=== PATIENT | female | born 2000 | race Caucasian/White ===

== ENCOUNTER 2024-01-14 00:53 | Emergency (ER) | payer OTHER, SELFPAY ==
[2024-01-14 00:58] VITALS: BP 150/98; PULSE 120; RESP 18; TEMP 36.6; O2SAT 97
--- NOTE | 2024-01-14 01:11 | ED_ITS ---
HPI - Abdominal Pain General Chief Complaint: Abdominal Pain Stated Complaint: ABD PAIN Time Seen by Provider: 01/14/24 00:56 Source: patient Mode of arrival: walk-in Limitations: no limitations History of Present Illness HPI narrative: 23-year-old female presents to the emergency department for low abdominal pain. She was nauseous but did not vomit. She had minimal diarrhea. She is worried about her appendix. No fever or trauma or blood in her stool. Related Data Previous Rx's ?Medication ?Instructions ?Recorded dicyclomine 10 mg capsule 10 mg PO QID PRN abdominal pain 01/14/24 #20 caps Allergies Allergy/AdvReac Type Severity Reaction Status Date / Time penicllin Allergy Mild Rash Uncoded 01/14/24 01:03 Review of Systems ROS Narrative A ten point review of systems is negative except as noted above. Exam Narrative Exam Narrative: Nurses note and vital signs reviewed and patient is not hypoxic. General: The patient appears in no apparent distress. Skin: Warm, dry, no pallor noted. There is no rash noted. Head: Normocephalic, atraumatic Eye: Normal conjunctiva, no drainage Ears, Nose, Mouth, and Throat: oral mucosa is moist. Nares patent. Cardiovascular: Regular Rate and Rhythm Respiratory: Patient is in no distress, no accessory muscle use, lungs are clear to auscultation, no wheezing, rales or rhonchi Back: non-tender GI: Obese soft and mild diffuse tenderness Musculoskeletal: The patient has no evidence of calf tenderness, no pitting edema, symmetrical pulses noted bilaterally Neurological: A&O, normal speech Psychiatric: Cooperative Constitutional Vital Signs, click to edit/add: Last Vital Signs Temp 97.9 F 01/14/24 00:58 Pulse 120 H 01/14/24 00:58 Resp 18 01/14/24 00:58 BP 150/98 H 01/14/24 00:58 Pulse Ox 97 01/14/24 00:58 Course Vital Signs Vital signs: Vital Signs Temperature 97.9 F 01/14/24 00:58 Pulse Rate 120 H 01/14/24 00:58 Respiratory Rate 18 01/14/24 00:58 Blood Pressure 150/98 H 01/14/24 00:58 Pulse Oximetry 97 01/14/24 00:58 Temperature 97.9 F 01/14/24 00:58 Pulse Rate 120 H 01/14/24 00:58 Respiratory Rate 18 01/14/24 00:58 Blood Pressure 150/98 H 01/14/24 00:58 Pulse Oximetry 97 01/14/24 00:58 MDM - Abdominal Pain MDM Narrative Medical decision making narrative: Blood work is nonspecific. She is not . CT findings are discussed with the patient and she is discharged home and will be treated symptomatically. She was offered IM Bentyl but does not want a shot. Treatment diagnosis and follow- up were discussed with the patient. Differential Diagnosis Differential diagnosis: Likely abdominal pain, acute appendicitis, diverticulitis, gastroenteritis, pancreatitis and small bowel obstruction Lab Data Attestation: I reviewed the patient's lab results. Labs: Lab Results 01/14/24 Range/Units 01:10 WBC 11.6 H (4.0-11.0) 10^3/uL RBC 4.71 (4.20-5.40) 10^6/uL Hgb 13.1 (12.0-16.0) g/dL Hct 40.0 (36.0-48.0) % MCV 84.9 (81.0-99.0) fL MCH 27.8 (26.7-34.0) pg MCHC 32.8 (29.9-35.2) g/dL RDW 13.2 (11.0-15.0) % Plt Count 296 (150-450) 10^3/uL MPV 10.0 (9.5-13.5) fL Neut % (Auto) 87.1 H (43.0-75.0) % Lymph % (Auto) 6.6 L (20.5-60.0) % Sullivan % (Auto) 4.8 (1.7-12.0) % Eos % (Auto) 0.9 (0.9-7.0) % Baso % (Auto) 0.3 (0.2-2.0) % Neut # (Auto) 10.1 H (1.4-6.5) 10^3/uL Lymph # (Auto) 0.8 L (1.2-3.8) 10^3/uL Sullivan # (Auto) 0.6 (0.3-0.8) 10^3/uL Eos # (Auto) 0.1 (0.0-0.7) 10^3/uL Baso # (Auto) 0.0 (0.0-0.1) 10^3/uL Abs Immat Gran (auto) 0.04 H (0.00-0.03) 10^3/uL Imm/Tot Granulo (auto) 0.3 (0.0-0.5) % Sodium 135 L (136-145) mmol/L Potassium 3.9 (3.5-5.1) mmol/L Chloride 103 (98-107) mmol/L Carbon Dioxide 21.1 (21.0-32.0) mmol/L Anion Gap 14.8 BUN 11.0 (7.0-18.0) mg/dL Creatinine 0.73 (0.55-1.02) mg/dL Est GFR ( Amer) >60 (>=60) Est GFR (Non-Af Amer) >60 (>=60) BUN/Creatinine Ratio 15.1 Glucose 102 (74-106) mg/dL Calcium 8.7 (8.5-10.1) mg/dL Total Bilirubin 0.6 (0.2-1.0) mg/dL Direct Bilirubin 0.1 (0.0-0.2) mg/dL AST 17 (15-37) U/L ALT 23 (14-59) U/L Alkaline Phosphatase 99 (46-116) U/L Total Protein 7.6 (6.4-8.2) g/dL Albumin 3.4 (3.4-5.0) g/dL Globulin 4.2 g/dL Albumin/Globulin Ratio 0.8 Amylase 38 (25-115) U/L Lipase 26.0 (16.0-77.0) U/L Serum HCG, Qual Negative (NEGATIVE) Imaging Data CT scan - abdomen: Radiologist's impression: ITS Impressions Abdomen/Pelvis CT 01/14/24 01:12 IMPRESSION: 1. Liquid stool in the colon, in keeping with diarrhea. 2. Normal appendix. Electronically authenticated by: Areli RAMSEY Date: 01/14/2024 02:58 Discharge Plan Discharge Stand Alone Forms: Portal Instructions Chief Complaint: Abdominal Pain Clinical Impression: Abdominal pain Patient Disposition: Home, Self-Care Time of Disposition Decision: 03:05 Condition: Good Mode of Transportation: Private Vehicle Prescriptions / Home Meds: New dicyclomine 10 mg capsule 10 mg PO QID PRN (Reason: abdominal pain) Qty: 20 0RF Print Language: Trinidadian Instructions: Gastroenteritis (ED), Abdominal Pain (ED) Referrals: Manuel Schwartz MD [Primary Care Provider] - 1 week
--- NOTE | 2024-01-14 01:12 | CT_ITS ---
[facility] [id number] Patient Name: MANISH ROMERO MRN: [id number] date: 2000 Sex: F Assigned Patient Location: ER Current Patient Location: ER Accession/Order Number: [id number] Exam Date: 01/14/2024 01:48 Report Date: 01/14/2024 02:58 At the request of: SKYE YANEZ Procedure: CT abdomen pelvis w con EXAM: CT abdomen pelvis w con HISTORY: low abdominal pain, rule out appendicitis COMPARISON: CT abdomen and pelvis examination dated 11/16 2017. TECHNIQUE: Axial CT images through the abdomen and pelvis were obtained after the intravenous administration of contrast. Coronal and sagittal reformats were obtained. Dose reduction techniques were achieved by using automated exposure control and/or adjustment of mA and/or kV according to patient size and/or use of iterative reconstruction technique. FINDINGS: The visualized portions of the lung bases are clear. Abdomen: The liver and spleen enhance homogeneously without focal lesion. There is no intra or extrahepatic biliary duct dilatation. The gallbladder is surgically absent. Liquid stool is seen in the colon without evidence of bowel obstruction. Otherwise, the pancreas, adrenal glands, kidneys, and bowel loops, including the appendix, are unremarkable. There is no mesenteric or retroperitoneal lymphadenopathy. Pelvis: The bladder and rectum are unremarkable. There is no iliac or inguinal lymphadenopathy. The uterus is present. The ovaries appear within normal limits by CT. Bone windows show no aggressive osseous lesions. CT/CT abdomen pelvis w con IMPRESSION: 1. Liquid stool in the colon, in keeping with diarrhea. 2. Normal appendix. Electronically authenticated by: Areli RAMSEY Date: 01/14/2024 02:58
[2024-01-14 01:18] LABS: Basophils Percent Auto 0.3 % (0.2-2.0); Eosinophils Absolute Auto 0.1 10^3/uL (0.0-0.7); Eosinophils Percent Auto 0.9 % (0.9-7.0); Hemoglobin 13.1 g/dL (12.0-16.0); Immature Granulocytes Abs Auto 0.04 10^3/uL (0.00-0.03); Immature Granulocytes Pct Auto 0.3 % (0.0-0.5); Lymphocytes Absolute Auto 0.8 10^3/uL (1.2-3.8); Lymphocytes Percent Auto 6.6 % (20.5-60.0); Mean Corpuscular HGB Conc 32.8 g/dL (29.9-35.2); Mean Corpuscular Hemoglobin 27.8 pg (26.7-34.0); Mean Corpuscular Volume 84.9 fL (81.0-99.0); Monocytes Absolute Auto 0.6 10^3/uL (0.3-0.8); Monocytes Percent Auto 4.8 % (1.7-12.0); Neutrophils Absolute Auto 10.1 10^3/uL (1.4-6.5); Neutrophils Percent Auto 87.1 % (43.0-75.0); Platelet Count 296 10^3/uL (150-450); Red Blood Count 4.71 10^6/uL (4.20-5.40); Red Cell Distribution Width 13.2 % (11.0-15.0); White Blood Count 11.6 10^3/uL (4.0-11.0)
[2024-01-14] MEDS: ONDANSETRON PF 4 MG/2 ML VIAL IV (01:24)
[2024-01-14] MEDS: 0.9 % SODIUM CHLORIDE 1,000 ML 1000 ML IV (01:24)
[2024-01-14 01:32] LABS: Anion Gap 14.8; BUN Creatinine Ratio 15.1; Calcium 8.7 mg/dL (8.5-10.1); Carbon Dioxide 21.1 mmol/L (21.0-32.0); Chloride 103 mmol/L (98-107); Estimated GFR (African America >60 (>=60); Estimated GFR (Non-African Ame >60 (>=60); Glucose 102 mg/dL (74-106); HCG Qualitative NEGATIVE (NEGATIVE); Potassium 3.9 mmol/L (3.5-5.1); Sodium 135 mmol/L (136-145)
[2024-01-14 01:40] LABS: Alanine Aminotransferase 23 U/L (14-59); Albumin Globulin Ratio 0.8; Albumin Level 3.4 g/dL (3.4-5.0); Alkaline Phosphatase 99 U/L (46-116); Amylase 38 U/L (25-115); Aspartate Amino Transferase 17 U/L (15-37); Bilirubin Direct 0.1 mg/dL (0.0-0.2); Bilirubin Total 0.6 mg/dL (0.2-1.0); Globulin 4.2 g/dL; Total Protein 7.6 g/dL (6.4-8.2)
[2024-01-14 03:15] VITALS: BP 132/88; PULSE 95; RESP 18; O2SAT 100
== END 2024-01-14 03:15 | disposition home or self-care (01) ==
PROVIDERS: Emergency Provider Emergency Medicine; PCP Family Medicine
DX: R10.9 Unspecified abdominal pain (principal); E66.9 Obesity, unspecified
CPT/HCPCS: 36415; 74177; 80048; 80076; 82150; 83690; 84703; 85025; 96361; 96374; 99285; Q9967

== ENCOUNTER 2024-04-28 14:58 | Outpatient (OUT) | payer OTHER, SELFPAY ==
[2024-04-28 15:47] LABS: HCG Quantitative 2 mIU/mL
== END 2024-04-28 14:59 | disposition home or self-care (01) ==
LOC: LAB 15:00
PROVIDERS: PCP Family Medicine; Visit Provider Family Medicine
DX: N91.2 Amenorrhea, unspecified (principal)
CPT/HCPCS: 36415; 84702

== ENCOUNTER 2024-06-01 14:11 | Outpatient (OUT) | payer OTHER, SELFPAY ==
--- NOTE | 2024-06-01 14:17 | XR_ITS ---
[facility] [id number] Patient Name: MANISH ROMERO MRN: [id number] date: 2000 Sex: F Assigned Patient Location: [facility] Current Patient Location: Accession/Order Number: [id number] Exam Date: 06/01/2024 14:19 Report Date: 06/03/2024 13:10 At the request of: FAYE NOEL Procedure: XR lumbar spine 2-3V EXAMINATION: XR lumbar spine 2-3V HISTORY: Right Sided Sciatica M54.31 COMPARISON: No relevant comparison available. FINDINGS: BONES: No significant spondylosis, scoliosis, fracture, or visible bony lesion. DISC SPACES: No significant disc height narrowing, subluxation, or endplate abnormality. PARASPINOUS: Negative. No paraspinous abnormality is seen. OTHER: Negative. XR/XR lumbar spine 2-3V IMPRESSION: 1. No acute abnormality or appreciable degenerative changes. Electronically authenticated by: MYLENE SULLIVAN Date: 06/03/2024 13:10
--- OUTSIDE RECORDS SUMMARY | 2024-06-01 14:24 | XMS_ITS | CCD ---
Author Organization [facility] Care Team Providers Care Purchasing And Claims Supervisor Name Role Phone MISC, DR WILLS Attending Unavailable NADERER, DR MANUEL Souza Primary Care Unavailable MISC, DR WILLS Admitting Unavailable MISC, DR WILLS Consulting Unavailable NADERER, DR MANUEL Souza Primary Care Unavailable KARASIK ., DR GAN Admitting Unavailabl e KARASIK ., DR GAN Consulting Unavailabl e KARASIK ., DR GAN Attending Unavailabl e KARASIK ., DR GAN Attending Unavailabl e NADERER, DR MANUEL Souza Primary Care Unavailable KARASIK ., DR GAN Admitting Unavailabl e NADERER, DR MANUEL Souza Primary Care Unavailable KARASIK ., DR GAN Attending Unavailabl e KARASIK ., DR GAN Admitting Unavailabl e KARASIK ., DR GAN Consulting Unavailabl e HAY ., DR HESS Consulting Unavailable NADERER, DR MANUEL Souza Primary Care Unavailable KRISHNA LEMON Attending Unavailable ION, KRISHNA Admitting Unavailable ION, KRISHNA Consulting Unavailable NADERER, DR MANUEL Souza Primary Care Unavailable ION, KRISHNA Attending Unavailable ION, KRISHNA Admitting Unavailable NADERER, DR MANUEL Souza Primary Care Unavailable KARASIK ., DR GAN Admitting Unavailabl e KARASIK ., DR GAN Consulting Unavailabl e KARASIK ., DR GAN Attending Unavailabl e NADERER, DR MANUEL Suoza Primary Care Unavailable KARASIK ., DR GAN Admitting Unavailabl e KARASIK ., DR GAN Attending Unavailabl e KARASIK ., DR GAN Consulting Unavailabl e BLAKE ZHANG Consulting Unavailable KARASIK ., DR GAN Procedure Practitioner Em vailable NADEM, DR MANUEL Souza Primary Care Unavailable KARASIK ., DR GAN Attending Unavailabl e KARASIK ., DR GAN Admitting Unavailabl e KARASIK ., DR GAN Consulting Unavailabl e NADERER, DR MANUEL Souza Primary Care Unavailable KARASIK ., DR GAN Attending Unavailabl e KARASIK ., DR GAN Admitting Unavailabl e KARASIK ., DR GAN Consulting Unavailabl e NADERER, DR MANUEL Souza Primary Care Unavailable KARASIK ., DR GAN Attending Unavailabl e KARASIK ., DR GAN Admitting Unavailabl e KARASIK ., DR GAN Consulting Unavailabl e ZIEBER, DR MYLENE Simpson Consulting Unavailable NADERER, DR MANUEL Souza Primary Care Unavailable KARASIK ., DR GAN Attending Unavailabl e KARASIK ., DR GAN Admitting Unavailabl e KARASIK ., DR GAN Consulting Unavailabl e ZIEBER, DR MYLENE Simpson Consulting Unavailable HELLEN ., DR ANDREA Attending Unavailable WEST, DR AISHWARYA Luis Consulting Unavailable NADERER, DR MANUEL Souza Primary Care Unavailable HELLEN ., DR ANDREA Admitting Unavailable HELLEN ., DR ANDREA Consulting Unavailable NADERER, DR MANUEL Souza Primary Care Unavailable KARASIK ., DR GAN Attending Unavailabl e KARASIK ., DR GAN Admitting Unavailabl e KARASIK ., DR GAN Consulting Unavailabl e NADERER, DR MANUEL Souza Attending Unavailable NADERER, DR MANUEL Souza Admitting Unavailable NADERER, DR MANUEL Souza Primary Care Unavailable NADERER, DR MANUEL Souza Consulting Unavailable NADERER, MANUEL Primary Care Unavailable MOORE, NAVI N Attending Unavailable MOORE, NAVI N Attending Unavailable MOORE, NAVI N Referring Unavailable NADERER, MANUEL Primary Care Unavailable NADERER, MANUEL Attending Unavailable NADERER, MANUEL Attending Unavailable SheArmond fitzgerald Attending Unavailab le SheArmond Admitting Unavailab le Naderer, Manuel Primary Care Unavailable Allergies Allergy Classification Reported Allergen(s) Allergy Type Date of Onset Reaction(s) Facility (2 sources) Penicillins; Translations: [PENICILLINS] Drug allergy (disorder) 01-21-2019 [facility] Repository (1 source) Penicillins Drug allergy (disorder) 11-20-2017 [facility] Repository Problems Active Problems Problem Classification Problem Date Documented Date Episodic/Chronic Abdominal pain (3 sources) Generalized abdominal pain; Translations: [Abdominal pain] Onset: 02-28-2024 Episodic Acute posthemorrhagic anemia (1 source) Acute posthemorrhagic anemia; Translations: [ACUTE POSTHEMORRHAGIC ANEMIA] Onset: 12-23-2022 Episodic Influenza (1 source) Influenza due to other identified influenza virus with other respiratory manifestations; Translations: [FLU D/T OTH ID FLU VIR OTH RSP MANF] Onset: 09-24-2022 Episodic Menstrual disorders (4 sources) Irregular menstruation, unspecified; Translations: [IRREGULAR MENSTRUATION UNSPECIFIED] Onset: 06-06-2022 Chronic Other complications of ; puerperium affecting management of mother (1 source) Obesity complicating childbirth; Translations: [OBESITY COMPLICATING CHILDBIRTH] Onset: 12-23-2022 Chronic Other complications of ; puerperium affecting management of mother (1 source) Anemia of the puerperium; Translations: [ANEMIA OF THE PUERPERIUM] Onset: 12-23-2022 Chronic Other complications of (2 sources) Obesity complicating , third trimester; Translations: [OBESITY COMP THIRD TRI] Onset: 12-01-2022 Chronic Other complications of (4 sources) related conditions, unspecified, unspecified trimester; Translations: [ RELATED COND UNS UNS TRI] Onset: 11-29-2022 Episodic Other complications of (1 source) Diseases of the respiratory system complicating , third trimester; Translations: [DISEASES RESP SYS COMP PREG 3RD TRI] Onset: 09-24-2022 Episodic Other ear and sense organ disorders (3 sources) Otalgia, left ear; Translations: [OTALGIA LEFT EAR] Onset: 09-22-2022 Episodic Other and delivery including normal (15 sources) Single live ; Translations: [Encounter for supervision of other normal , third trimester] Onset: 04-16-2022 Episodic Otitis media and related conditions (1 source) Unspecified nonsuppurative otitis media, bilateral; Translations: [UNS NONSUPPURATIVE OTITIS MEDIA OSCAR] Onset: 09-24-2022 Episodic Residual codes; unclassified (1 source) 38 weeks gestation of ; Translations: [38 WEEKS GESTATION OF ] Onset: 12-23-2022 Episodic Residual codes; unclassified (1 source) 29 weeks gestation of ; Translations: [29 WEEKS GESTATION OF ] Onset: 09-24-2022 Episodic Unclassified (2 sources) OT SPCF DIS/COND COMPL ; Translations: [OT SPCF DIS/COND COMPL ] Onset: 07-15-2022 Past or Other Problems Problem Classification Problem Date Documented Date Episodic/Chronic Immunizations and screening for infectious disease (2 sources) Encounter for screening for infections with a predominantly sexual mode of transmission; Translations: [Contact with and (suspected) exposure to infections with a predominantly sexual mode of transmission] Onset: 06-10-2022 Episodic Other complications of (4 sources) Abnormal ultrasonic finding on screening of mother; Translations: [ABNORM US SCREEN MOTHER] Onset: 08-07-2022 Episodic Other screening for suspected conditions (not mental disorders or infectious disease) (17 sources) Encounter for screening for malignant neoplasm of cervix; Translations: [Encounter for other specified screening] Onset: 06-06-2022 Episodic Residual codes; unclassified (1 source) 26 weeks gestation of ; Translations: [26 WEEKS GESTATION OF ] Onset: 09-14-2022 Episodic Residual codes; unclassified (1 source) 18 weeks gestation of ; Translations: [18 WEEKS GESTATION OF ] Onset: 07-15-2022 Episodic Residual codes; unclassified (1 source) Less than 8 weeks gestation of ; Translations: [< 8 WEEKS GESTATION ] Onset: 04-19-2022 Episodic Spondylosis; intervertebral disc disorders; other back problems (4 sources) Cervicalgia; Translations: [Torticollis] Onset: 07-13-2022 Episodic Results Test Name Value Interpretation Reference Range Facility CBC AND AUTO DIFFon 02-28-20 ABSOLUTE BASOPHIL 0.1 X10E9/L Normal 0.0-0.2 [facility] Comment on above: Performed By: #### C DONG, 3040-3, , CBCA #### [facility] ([id number]) [address] [place] [address], [place] [address] ABSOLUTE NEUTROPHIL 8.4 X10E9/L High 1.5-6.6 [facility] Comment on above: Performed By: #### C DONG, 3040-3, , CBCA #### [facility] ([id number]) [address] [place] [address] 05351 Basophils/100 WBC (Bld) 0.9 % Normal [facility] Comment on above: Performed By: #### C DONG, 3039-12, , CBCA #### [facility] ([id number]) [address] [place] [address] 02268 Eosinophils (Bld) [#/Vol] 0.2 10*3/uL Normal 0.0-0.4 [facility] Comment on above: Performed By: #### C DONG, 3039-12, , CBCA #### [facility] ([id number]) [address] [place] [address] 21575 Eosinophils/100 WBC (Bld) 2.1 % Normal [facility] Comment on above: Performed By: #### C DONG, 3039-12, , CBCA #### [facility] ([id number]) [address] [place] [address] 35970 Erythrocyte distribution width (RBC) [Ratio] 14.8 % Normal 11.5-15.0 [facility] Comment on above: Performed By: #### C DONG, 3039-12, , CBCA #### [facility] ([id number]) [address] [place] [address] 08626 Hematocrit (Bld) [Volume fraction] 38.8 % Normal 35-47 [facility] Comment on above: Performed By: #### C DONG, 3039-12, , CBCA #### [facility] ([id number]) [address] [place] [address] 78754 Hemoglobin (Bld) [Mass/Vol] 12.7 g/dL Normal 11.7-15.5 [facility] Comment on above: Performed By: #### C DONG, 3039-12, , CBCA #### [facility] ([id number]) [address] [place] [address] 98195 Lymphocytes (Bld) [#/Vol] 2.0 10*3/uL Normal 1.0-3.5 [facility] Comment on above: Performed By: #### C DONG, 3039-12, , CBCA #### [facility] ([id number]) [address] [place] [address] 60574 Lymphocytes/100 WBC (Bld) 17.0 % Normal [facility] Comment on above: Performed By: #### C DONG, 3039-12, , CBCA #### [facility] ([id number]) [address] [place] [address] 99880 MCH (RBC) [Entitic mass] 27.8 pg Normal 27-34 [facility] Comment on above: Performed By: #### C DONG, 3039-12, , CBCA #### [facility] ([id number]) [address] [place] [address] 27529 MCHC (RBC) [Mass/Vol] 32.8 g/dL Normal 32-36 [facility] Comment on above: Performed By: #### C DONG, 3039-12, , CBCA #### [facility] ([id number]) [address] [place] [address] 15138 MCV (RBC) [Entitic vol] 85 fL Normal 80-100 [facility] Comment on above: Performed By: #### C DONG, 3039-12, , CBCA #### [facility] ([id number]) [address] [place] [address] 83941 Monocytes (Bld) [#/Vol] 0.7 10*3/uL Normal 0-0.9 [facility] Comment on above: Performed By: #### C DONG, 3, , CBCA #### [facility] ([id number]) [address] [place] [address] 61075 Monocytes/100 WBC (Bld) 6.4 % Normal [facility] Comment on above: Performed By: #### C DONG, 3, , CBCA #### [facility] ([id number]) [address] [place] [address] 39992 Neutrophils/100 WBC (Bld) 73.6 % Normal [facility] Comment on above: Performed By: #### C DONG, 3039-12, , CBCA #### [facility] ([id number]) [address] [place] [address] 21700 Platelet mean volume (Bld) [Entitic vol] 8.3 fL Normal 7-12 [facility] Comment on above: Performed By: #### C DONG, 3039-12, , CBCA #### [facility] ([id number]) [address] [place] [address] 81487 Platelets (Bld) [#/Vol] 297 10*3/uL Normal 150-450 [facility] Comment on above: Performed By: #### C DONG, 3039-12, , CBCA #### [facility] ([id number]) [address] [place] [address] 87942 RBC COUNT 4.58 X10E12/L Normal 3.80-5.20 [facility] Comment on above: Performed By: #### C DONG, 3039-12, , CBCA #### [facility] ([id number]) [address] [place] [address] 98950 WBC (Bld) [#/Vol] 11.4 10*3/uL High 4.0-11.0 [facility] Comment on above: Performed By: #### C DONG, 3039-12, , CBCA #### [facility] ([id number]) [address] [place] [address] 47867 COMPREHENSIVE METABOLIC PANE Carlin 02-28-2024 Albumin [Mass/Vol] 4.0 g/dL Normal 3.2-5.3 [facility] Comment on above: Performed By: #### C DONG, 3039-12, , CBCA #### [facility] ([id number]) [address] [place] [address] 44110 ALP [Catalytic activity/Vol] 87 U/L Normal 39-130 [facility] Comment on above: Performed By: #### C DONG, 3039-12, , CBCA #### [facility] ([id number]) [address] [place] [address] 36894 ALT [Catalytic activity/Vol] 20 U/L Normal 0-31 [facility] Comment on above: Performed By: #### C DONG, 3039-12, , CBCA #### [facility] ([id number]) [address] [place] [address] 17510 Anion gap [Moles/Vol] 11 mmol/L Normal 5-15 [facility] Comment on above: Performed By: #### C DONG, 3039-12, , CBCA #### [facility] ([id number]) [address] [place] [address] 37039 AST [Catalytic activity/Vol] 27 U/L Normal 0-41 [facility] Comment on above: Performed By: #### C DONG, 3039-12, , CBCA #### [facility] ([id number]) [address] [place] [address] 34964 Bilirubin [Mass/Vol] 0.8 mg/dL Normal 0.3-1.2 [facility] Comment on above: Result Comment: RESU LTS QUESTIONABLE DUE TO HEMOLYSIS Performed By: #### C DONG, 3039-12, , CBCA #### [facility] ([id number]) [address] [place] [address] 80744 Calcium [Mass/Vol] 8.5 mg/dL Normal 8.5-10.5 [facility] Comment on above: Performed By: #### C DONG, 3039-12, , CBCA #### [facility] ([id number]) [address] [place] [address] 31171 Chloride [Moles/Vol] 106 mmol/L Normal 98-109 [facility] Comment on above: Performed By: #### C DONG, 3039-12, , CBCA #### [facility] ([id number]) [address] [place] [address] 13824 CO2 [Moles/Vol] 18 mmol/L Low 22-32 [facility] Comment on above: Performed By: #### C DONG, 3039-12, , CBCA #### [facility] ([id number]) [address] [place] [address] 83180 Creatinine [Mass/Vol] 0.60 mg/dL Normal 0.40-1.00 [facility] Comment on above: Result Comment: METH OD TRACEABLE TO IDMS STANDARD Performed By: #### C DONG, 3039-12, , CBCA #### [facility] ([id number]) [address] [place] [address] 51242 eGFR (CKD-EPI) NON-RACE DEPENDENT >90 Normal >59 [facility] Comment on above: Result Comment: Reported eGFR is based on the CKD-EPI 2020 equation that does not use a race coefficient. Performed By: #### C DONG, 3039-12, , CBCA #### [facility] ([id number]) [address] [place] [address] 56411 Glucose [Mass/Vol] 84 mg/dL Normal 65-99 [facility] Comment on above: Performed By: #### C DONG, 3039-3, , CBCA #### [facility] ([id number]) [address] [place] [address] 83716 Potassium [Moles/Vol] 4.5 mmol/L Normal 3.5-5.0 [facility] Comment on above: Result Comment: SPEC IMEN HEMOLYZED, RESULTS INCREASED Performed By: #### C DONG, 3039-12, , CBCA #### [facility] ([id number]) [address] [place] [address] 88950 Protein [Mass/Vol] 7.8 g/dL Normal 6.0-8.0 [facility] Comment on above: Performed By: #### C DONG, 3039-12, , CBCA #### [facility] ([id number]) [address] [place] [address] 24476 Sodium [Moles/Vol] 135 mmol/L Normal 134-146 [facility] Comment on above: Performed By: #### C DONG, 3, , CBCA #### [facility] ([id number]) [address] [place] [address] 32469 Urea nitrogen [Mass/Vol] 12 mg/dL Normal 5-23 [facility] Comment on above: Performed By: #### C DONG, 0-3, , CBCA #### [facility] ([id number]) [address] [place] [address] ABDOMEN AND PELVIS W CONT on 02-28-2024 CT ABDOMEN AND PELVIS W CONT CT ABDOMEN AND PELVIS W CONT STUDY: ABDOMEN AND PELVIS CT WITH CONTRAST CLINICAL HISTORY: Right lower quadrant abdominal pain COMPARISON: None. TECHNIQUE: CT abdomen and pelvis with contrast. Coronal and sagittal reformatted images were obtained and reviewed. Automated exposure control was utilized. All CT scans at this facility dose modulation, iterative reconstruction, and/or weight based dosing when appropriate to reduce radiation dose to as low as reasonably achievable. FINDINGS: Lung bases are clear. Liver is unremarkable. Gallbladder surgically absent. No biliary dilatation. The pancreas, spleen, and adrenal glands are unremarkable. The kidneys enhance symmetrically. No hydronephrosis or ureteral obstruction. Urinary bladder is decompressed. No intra-abdominal free air or free fluid. No small bowel obstruction. The appendix is normal. Colon is unremarkable by CT. No abdominal aortic aneurysm. IVC is right-sided. No acute osseous abnormalities. IMPRESSION: No acute findings on CT abdomen and pelvis with contrast. Finalized by Jemal Crawford MD on 02/28/2024 3:45 AM Normal [facility] HCG ( test) Ql (U)o n 02-28-2024 Beta HCG ( test) Ql (U) Negative Normal NEG [facility] Comment on above: Performed By: #### 2 106-3 #### [facility] ([id number]) [address] [place] [address] 86553 LIPASEon 02-28-2024 Lipase [Catalytic activity/Vol] 28 U/L Normal 17-40 [facility] Comment on above: Performed By: #### C , 3040-3, , CBCA #### [facility] ([id number]) [address] [place] [address] 47627 MAGNESIUMon 02-28-2024 Magnesium [Mass/Vol] 2.1 mg/dL Normal 1.8-2.6 [facility] Comment on above: Performed By: #### C MP, 3040-3, , CBCA #### [facility] ([id number]) [address] [place] [address] 25853 URN MACROSCOPIC NURon 2023 BILIRUBIN MOLLY Negative Normal NEG [facility] Comment on above: Performed By: #### N UM #### [facility] ([id number]) [address] [place] [address] [place] [address] BLOOD/HGB MOLLY Trace Abnormal NEG [facility] Comment on above: Performed By: #### N UM #### [facility] ([id number]) [address] [place] [address], [place] [address] GLUCOSE MOLLY Negative Normal NEG [facility] Comment on above: Performed By: #### N UM #### [facility] ([id number]) [address] [place] [address] [place] [address] KETONES MOLLY Negative Normal NEG [facility] Comment on above: Performed By: #### N UM #### [facility] ([id number]) [address] [place] [address] [place] [address] LEUKOCYTE ESTERASE MOLLY Negative Normal NEG [facility] Comment on above: Performed By: #### N UM #### [facility] ([id number]) [address] [place] [address] [place] [address] NITRITE MOLLY Negative Normal NEG [facility] Comment on above: Performed By: #### N UM #### [facility] ([id number]) [address] [place] [address] [place] [address] PH MOLLY 5.5 Normal 5.0-8.5 [facility] Comment on above: Performed By: #### N UM #### [facility] ([id number]) [address] [place] [address] [place] [address] PROTEIN MOLLY >=300 Abnormal NEG [facility] Comment on above: Performed By: #### N UM #### [facility] ([id number]) [address] [place] [address] [place] [address] SPECIFIC GRAVITY MOLLY >=1.030 Normal 1.003-1.035 [facility] Comment on above: Performed By: #### N UM #### [facility] ([id number]) [address], [place] [address] UROBILINOGEN MOLLY 0.2 eu/dL Normal <1.1 [facility] Comment on above: Performed By: #### N UM #### [facility] ([id number]) [address], [place] [address] PRBC LEUKOREDUCEDon 12-25-19 23 ABO and Rh group Nom (Bld) Cross Match Result Compatible Unit Blood Type O Pos Unit Number [id number] Status Information Transfused Product ID Red Blood Cells Product Code [id number] Cross Match Result Compatible Unit Blood Type O Pos Unit Number [id number] Status Information Transfused Product ID Red Blood Cells Product Code [id number] Normal [facility] Comment on above: Performed By: #### P RBC ####[facility] [address] [place], [place] [address]Dr. Benoit Diggs CBC AUTO DIFFon 12-21-2022 BASO # 0.1 103/ul Normal 0.0-0.1 [facility] Comment on above: Performed By: #### C BC ####[facility] [address] [place], [place] [address]Dr. Benoit Diggs Basophils/100 WBC (Bld) 1.2 % Normal 0.2-2.0 [facility] Comment on above: Performed By: #### C BC ####[facility] [address] [place], [place] [address]Dr. Benoit Diggs EO # 0.4 103/ul Normal 0.0-0.7 [facility] Comment on above: Performed By: #### C BC ####[facility] [address] [place], [place] [address]Dr. Benoit Diggs Eosinophils/100 WBC (Bld) 4.5 % Normal 0.9-7.0 [facility] Comment on above: Performed By: #### C BC ####[facility] [address] [place], [place] [address]Dr. Benoit Diggs Erythrocyte distribution width (RBC) [Ratio] 16.6 % Critically high 11.0-15.0 [facility] Comment on above: Performed By: #### C BC ####[facility] [address] [place] [address]Dr. Benoit Diggs Hematocrit (Bld) [Volume fraction] 40.3 % Normal 36.0-48.0 [facility] Comment on above: Performed By: #### C BC ####[facility] [address] [place] [address]Dr. Benoit Diggs Hemoglobin (Bld) [Mass/Vol] 12.6 g/dL Normal 12.0-16.0 [facility] Comment on above: Performed By: #### C BC ####[facility] [address] [place], [place] [address]Dr. Benoit Diggs IG # 0.04 10e3/ul Critically high 0.00-0.03 [facility] Comment on above: Performed By: #### C BC ####[facility] [address] [place], [place] [address]Dr. Benoit Diggs IG % 0.5 % Normal 0.0-0.5 [facility] Comment on above: Performed By: #### C BC ####[facility] [address] [place], [place] [address]Dr. Benoit Diggs LYMPH # 3.0 103/ul Normal 1.2-3.8 [facility] Comment on above: Performed By: #### C BC ####[facility] [address] [place], [place] [address]Dr. Benoit Diggs Lymphocytes/100 WBC (Bld) 36.0 % Normal 20.5-60.0 [facility] Comment on above: Performed By: #### C BC ####[facility] [address] [place], [place] [address]Dr. Benoit Diggs MANUAL DIFF REQ NO Normal [facility] Comment on above: Performed By: #### C BC ####[facility] [address] [place] [address]Dr. Benoit Diggs MCH (RBC) [Entitic mass] 25.3 pg Critically low 26.7-34.0 [facility] Comment on above: Performed By: #### C BC ####[facility] [address] [place] [address]Dr. Benoit Dontae MCHC (RBC) [Mass/Vol] 31.3 g/dL Normal 29.9-35.2 [facility] [facility] Comment on above: Performed By: #### C BC ####[facility] [address] [place] [address]Dr. Benoit Diggs MCV (RBC) [Entitic vol] 80.9 fL Critically low 81.0-99.0 [facility] Comment on above: Performed By: #### C BC ####[facility] [address] [place], [place] [address]DrJael Diggs MONO # 0.4 103/ul Normal 0.3-0.8 [facility] Comment on above: Performed By: #### C BC ####[facility] Ezof[address]taz[address] [place], [place] [address]Dr. Benoit Diggs Monocytes/100 WBC (Bld) 4.8 % Normal 1.7-12.0 [facility] Comment on above: Performed By: #### C BC ####[facility] Asumycomns[address] [place], [place] [address]Dr. Benoit Diggs NEUT # 4.4 103/ul Normal 1.4-6.5 [facility] Comment on above: Performed By: #### C BC ####[facility] Cvicdkfpm[address] [place], [place] [address]Dr. Benoit Diggs Neutrophils/100 WBC (Bld) 53.0 % Normal 43.0-75.0 [facility] Comment on above: Performed By: #### C BC ####[facility] Hnyryforoo[address] [place], [place] [address]DrJael Diggs Platelet mean volume (Bld) [Entitic vol] 10.8 fL Normal 9.5-13.5 [facility] Comment on above: Performed By: #### C BC ####[facility] C[address] [place], [place] [address]Dr. Benoit Diggs PLT 410 103/ul Normal 150-450 [facility] Comment on above: Performed By: #### C BC ####[facility] Vjfnttcszf[address] [place] [address]Dr. Benoit Diggs RBC 4.98 106/ul Normal 4.20-5.40 [facility] Comment on above: Performed By: #### C BC ####[facility] S[address]jypf[address] [place] [address]Dr. Benoit Diggs WBC 8.3 103/ul Normal 4.0-11.0 [facility] Comment on above: Performed By: #### C BC ####[facility] Ypkfdotleq[address] [place] [address]Dr. Benoit Diggs GLYCOHEMOGLOBIN A1Con 2022 ADA RECOMMENDATION SEE BELOW Normal [facility] Comment on above: Result Comment: ADA RECOMMENDED LIMIT 4.0 - 6.0 ADA THERAPEUTIC TARGET < 7.0 ACTION SUGGESTED > 7.0 Performed By: #### A 1C ####[facility] V[address]rfyq[address] [place], [place] [address]Dr. Benoit Diggs Glucose [Mass/Vol] 100 mg/dL Normal [facility] Comment on above: Performed By: #### A 1C ####[facility] Yackwywkwy[address] [place], [place] [address]Dr. Benoit Diggs HbA1c (Bld) [Mass fraction] 5.1 % Normal 4.5-6.2 [facility] Comment on above: Performed By: #### A 1C ####[facility] Hibok[address] [place], [place] [address]Dr. Benoit Diggs LIPID PROFILEon 12-21-2022 CHOL-HDL RATIO NORM SEE BELOW Normal [facility] Comment on above: Result Comment: 3.3 - 4.4 LOW RISK 4.4 - 7.1 AVERAGE RISK 7.1 - 11.0 MODERATE RISK >11.0 HIGH RISK Performed By: #### L IVER, LIPID, BMP, TSH ####[facility] Smsrjqleoj[address] [place] [address]Dr. Benoit Diggs Cholesterol [Mass/Vol] 184 mg/dL Normal <=200 [facility] Comment on above: Performed By: #### L IVER, LIPID, BMP, TSH ####[facility] Qwwpmkcdco[address] [place] [id number]. Benoit Diggs Cholesterol in HDL [Mass/Vol] 52 mg/dL Normal 40-60 [facility] Comment on above: Performed By: #### L IVER, LIPID, BMP, TSH ####[facility] Tbvxfqeqji[address] [place] [id number]. Karyaurora Dontae Cholesterol in LDL [Mass/Vol] 114.8 mg/dL Normal [facility] Comment on above: Performed By: #### L IVER, LIPID, BMP, TSH ####[facility] Dogggtyzsj[address] [place] [address]Dr. Benoit Diggs Cholesterol.total/Ch olesterol in HDL [Mass ratio] 3.5 {ratio} Normal [facility] Comment on above: Performed By: #### L IVER, LIPID, BMP, TSH ####[facility] Resaxvjufp[address] [place] [address]Dr. Karyaurora Dontae HDL NORMAL > or = 60 mg/dl - LO W CARDIOVASCULAR RISK <40 mg/dl - HIGH CARDIOVASCULAR RISK Normal [facility] Comment on above: Performed By: #### L IVER, LIPID, BMP, TSH ####[facility] Elqmjqwbty[address] [place] [id number]. Benoit Diggs LDL CALC NORMAL SEE BELOW Normal [facility] Comment on above: Result Comment: <100 mg/dl OPTIMAL 100 - 129 mg/dl NEAR OR ABOVE OPTIMAL 130 - 159 mg/dl BORDERLINE HIGH 160 - 189 mg/dl HIGH >190 mg/dl VERY HIGH Performed By: #### L IVER, LIPID, BMP, TSH ####[facility] Ovtxvwhzyz[address] [place] [id number]. Benoit Diggs Triglyceride [Mass/Vol] 86 mg/dL Normal <=150 [facility] Comment on above: Performed By: #### L IVER, LIPID, BMP, TSH ####[facility] Fdcaekjoym[address] [place] [id number]. Benoit Diggs VLDL CALC 17.2 mg/dL Normal [facility] Comment on above: Performed By: #### L IVER, LIPID, BMP, TSH ####[facility] Wynpxlurai[address] [place] [address]Dr. Benoit Diggs LIVER PROFILEon 12-21-2022 Albumin [Mass/Vol] 3.3 g/dL Critically low 3.4-5.0 Th e [facility] Comment on above: Performed By: #### L IVER, LIPID, BMP, TSH ####[facility] Rmezqrkcel[address] [place] [address]Dr. Benoit Diggs Albumin/Globulin [Mass ratio] 0.8 {ratio} Normal [facility] Comment on above: Performed By: #### L IVER, LIPID, BMP, TSH ####[facility] Acjngclbsj[address] [place] [address]Dr. Benoit Diggs ALP [Catalytic activity/Vol] 110 U/L Normal 46-116 [facility] Comment on above: Performed By: #### L IVER, LIPID, BMP, TSH ####[facility] Vspipoelwr[address] [place] [address]Dr. Karyaurora Diggs ALT [Catalytic activity/Vol] 25 U/L Normal 14-59 [facility] Comment on above: Performed By: #### L IVER, LIPID, BMP, TSH ####[facility] Furrgdmaxl[address] [place] [address]Dr. Karyaurora Diggs AST [Catalytic activity/Vol] 20 U/L Normal 15-37 [facility] Comment on above: Performed By: #### L IVER, LIPID, BMP, TSH ####[facility] Elq[address] [place], [place] [address]Dr. Benoit Diggs BILI, CONJUGATED 0.1 mg/dL Normal 0.0-0.2 [facility] Comment on above: Performed By: #### L IVER, LIPID, BMP, TSH ####[facility] Mjeogzfeeh[address] [place] [address]Dr. Benoit Diggs Bilirubin [Mass/Vol] 0.4 mg/dL Normal 0.2-1.0 [facility] Comment on above: Performed By: #### L IVER, LIPID, BMP, TSH ####[facility] Efzvfgemyp[address] [place] [id number] Diggs Globulin (S) [Mass/Vol] 3.9 g/dL Normal [facility] Comment on above: Performed By: #### L IVER, LIPID, BMP, TSH ####[facility] Tspkhswogo[address] [place] [id number] Diggs Protein [Mass/Vol] 7.2 g/dL Normal 6.4-8.[address] [facility] Comment on above: Performed By: #### L IVER, LIPID, BMP, TSH ####[facility] Uqixyxkfnc[address] [place] [address]DrJael Diggs PROF CHEM 8 (BAS METB)on Anion gap [Moles/Vol] 13.2 mmol/L Normal [facility] Comment on above: Performed By: #### C BC #### [facility] [address] [address] [address] Benoit Diggs Calcium [Mass/Vol] 9.2 mg/dL Normal 8.5-10.1 [facility] Comment on above: Performed By: #### C BC #### [facility] [address] [address] [address] Benoit Diggs Chloride [Moles/Vol] 108 mmol/L Critically high 98-107 [facility] Comment on above: Performed By: #### C BC #### [facility] [address] [address] [address] Benoit Diggs CO2 [Moles/Vol] 27.9 mmol/L Normal 21.0-32.0 [facility] Comment on above: Performed By: #### C BC #### [facility] [address] [address] [address] Benoit Diggs Creatinine [Mass/Vol] 0.62 mg/dL Normal 0.55-1.02 [facility] Comment on above: Performed By: #### C BC #### [facility] [address] [address] [address] Benoit Diggs EGFR-AF RWANDAN >60 Normal >=60 [facility] Comment on above: Performed By: #### C BC #### [facility] [address] [address] [address] Benoit Diggs EGFR-NON AF RWANDAN >60 Normal >=60 [facility] Comment on above: Performed By: #### C BC #### [facility] [address] [address] [address] Benoit Diggs Glucose [Mass/Vol] 92 mg/dL Normal 74-[address] [facility] Comment on above: Performed By: #### C BC #### [facility] [address] [address] [address] Benoit Diggs Potassium [Moles/Vol] 4.1 mmol/L Normal 3.5-5.1 [facility] Comment on above: Performed By: #### C BC #### [facility] [address] [place] [address] Dr. Benoit Diggs Sodium [Moles/Vol] 145 mmol/L Normal 136-[address] [facility] Comment on above: Performed By: #### C BC #### [facility] [address] [address] [address] Benoit Diggs Urea nitrogen [Mass/Vol] 8.0 mg/dL Normal 7.0-18.0 [facility] Comment on above: Performed By: #### C BC #### [facility] [address] [address] [address] Benoit Diggs Urea nitrogen/Creatinine [Mass ratio] 12.9 mg/mg Normal [facility] Comment on above: Performed By: #### C BC #### [facility] [address] [address] [address] Benoit Diggs TSHon 12-21-2022 TSH 1.318 uIU/mL Normal 0.358-3.[address] [facility] Comment on above: Performed By: #### C BC #### [facility] [address] [address] [address] Benoit Diggs CBC AUTO DIFFon 12-04-2022 BASO # 0.1 103/ul Normal 0.0-0.1 [facility] Comment on above: Performed By: #### C BC #### [facility] [address] [address] [address] Benoit Diggs Basophils/100 WBC (Bld) 0.7 % Normal 0.2-2.0 [facility] Comment on above: Performed By: #### C BC #### [facility] [address] [address] [address] Benoit Diggs EO # 0.4 103/ul Normal 0.0-0.7 [facility] Comment on above: Performed By: #### C BC #### [facility] [address] [address] [address] Benoit Diggs Eosinophils/100 WBC (Bld) 3.8 % Normal 0.9-7.0 [facility] Comment on above: Performed By: #### C BC #### [facility] [address] [place] [address] Dr. Benoit Diggs Erythrocyte distribution width (RBC) [Ratio] 15.2 % Critically high 11.0-15.0 [facility] Comment on above: Performed By: #### C BC #### [facility] [address] [place] [address] Dr. Benoit Diggs Hematocrit (Bld) [Volume fraction] 28.7 % Critically low 36.0-48.0 [facility] Comment on above: Performed By: #### C BC #### [facility] [address] [place] [address] Dr. Benoit Diggs Hemoglobin (Bld) [Mass/Vol] 9.1 g/dL Critically low 12.0-16.0 [facility] Comment on above: Performed By: #### C BC #### [facility] [address] [place] [address] Dr. Benoit Diggs IG # 0.05 10e3/ul Critically high 0.00-0.03 [facility] Comment on above: Performed By: #### C BC #### [facility] [address] [place] [address] Dr. Benoit Diggs IG % 0.5 % Normal 0.0-0.5 [facility] Comment on above: Performed By: #### C BC #### [facility] [address] [address] [address] Benoit Diggs LYMPH # 3.3 103/ul Normal 1.2-3.8 [facility] Comment on above: Performed By: #### C BC #### [facility] [address] [address] [address] Benoit Diggs Lymphocytes/100 WBC (Bld) 31.8 % Normal 20.5-60.0 [facility] Comment on above: Performed By: #### C BC #### [facility] [address] [place] [address] Dr. Benoit Diggs MANUAL DIFF REQ NO Normal [facility] Comment on above: Performed By: #### C BC #### [facility] [address] [place] [address] Dr. Benoit Diggs MCH (RBC) [Entitic mass] 25.3 pg Critically low 26.7-34.0 [facility] Comment on above: Performed By: #### C BC #### [facility] [address] [place] [address] Dr. Benoit Diggs MCHC (RBC) [Mass/Vol] 31.7 g/dL Normal 29.9-35.2 [facility] Comment on above: Performed By: #### C BC #### [facility] [address] [place] [address] Dr. Benoit Diggs MCV (RBC) [Entitic vol] 79.9 fL Critically low 81.0-99.0 [facility] Comment on above: Performed By: #### C BC #### [facility] [address] [place] [address] Dr. Benoit Diggs MONO # 0.7 103/ul Normal 0.3-0.8 [facility] Comment on above: Performed By: #### C BC #### [facility] [address] [place] [address] Dr. Benoit Diggs Monocytes/100 WBC (Bld) 7.2 % Normal 1.7-12.0 [facility] Comment on above: Performed By: #### C BC #### [facility] [address] [address] [address] Benoit Diggs NEUT # 5.8 103/ul Normal 1.4-6.5 [facility] Comment on above: Performed By: #### C BC #### [facility] [address] [place] [address] Dr. Benoit Diggs Neutrophils/100 WBC (Bld) 56.0 % Normal 43.0-75.0 [facility] Comment on above: Performed By: #### C BC #### [facility] [address] [place] [address] Dr. Benoit Diggs Platelet mean volume (Bld) [Entitic vol] 10.5 fL Normal 9.5-13.5 [facility] Comment on above: Performed By: #### C BC #### [facility] [address] [place] [address] Dr. Benoit Diggs PLT 152 103/ul Normal 150-450 [facility] Comment on above: Performed By: #### C BC #### [facility] [address] [place] [address] Dr. Benoit Diggs RBC 3.59 106/ul Critically low 4.20-5.40 [facility] Comment on above: Performed By: #### C BC #### [facility] [address] [place] [address] Dr. Benoit Diggs WBC 10.3 103/ul Normal 4.0-11.0 [facility] Comment on above: Performed By: #### C BC #### [facility] [address] [place] [address] Dr. Benoit Diggs CBC AUTO DIFFon 12-03-2022 BASO # 0.0 103/ul Normal 0.0-0.1 [facility] Comment on above: Performed By: #### C BC #### [facility] [address] [place] [address] Dr. Benoit Diggs Basophils/100 WBC (Bld) 0.4 % Normal 0.2-2.0 [facility] Comment on above: Performed By: #### C BC #### [facility] [address] [place] [address] Dr. Benoit Diggs EO # 0.3 103/ul Normal 0.0-0.7 [facility] Comment on above: Performed By: #### C BC #### [facility] [address] [place] [address] Dr. Benoit Diggs Eosinophils/100 WBC (Bld) 3.1 % Normal 0.9-7.0 [facility] Comment on above: Performed By: #### C BC #### [facility] [address] [place] [address] Dr. Benoit Diggs Erythrocyte distribution width (RBC) [Ratio] 15.5 % Critically high 11.0-15.0 [facility] Comment on above: Performed By: #### C BC #### [facility] [address] [place] [address] Dr. Benoit Diggs Hematocrit (Bld) [Volume fraction] 22.0 % Critically low 36.0-48.0 [facility] Comment on above: Performed By: #### C BC #### [facility] [address] [place] [address] Dr. Benoit Diggs Hemoglobin (Bld) [Mass/Vol] 6.8 g/dL Critically low 12.0-16.0 [facility] Comment on above: Performed By: #### C BC #### [facility] [address] [place] [address] Dr. Benoit Diggs IG # 0.05 10e3/ul Critically high 0.00-0.03 [facility] Comment on above: Performed By: #### C BC #### [facility] [address] [place] [address] Dr. Benoit Diggs IG % 0.5 % Normal 0.0-0.5 [facility] Comment on above: Performed By: #### C BC #### [facility] [address] [place] [address] Dr. Benoit Diggs LYMPH # 2.9 103/ul Normal 1.2-3.8 [facility] Comment on above: Performed By: #### C BC #### [facility] [address] [address] [address] Benoit Diggs Lymphocytes/100 WBC (Bld) 31.0 % Normal 20.5-60.0 [facility] Comment on above: Performed By: #### C BC #### [facility] [address] [address] [address] Benoit Diggs MANUAL DIFF REQ NO Normal [facility] Comment on above: Performed By: #### C BC #### [facility] [address] [address] [address] Benoit Diggs MCH (RBC) [Entitic mass] 24.6 pg Critically low 26.7-34.0 [facility] Comment on above: Performed By: #### C BC #### [facility] [address] [place] [address] Dr. Benoit Diggs MCHC (RBC) [Mass/Vol] 30.9 g/dL Normal 29.9-35.2 [facility] Comment on above: Performed By: #### C BC #### [facility] [address] [place] [address] Dr. Benoit Diggs MCV (RBC) [Entitic vol] 79.7 fL Critically low 81.0-99.0 [facility] Comment on above: Performed By: #### C BC #### [facility] [address] [place] [address] Dr. Benoit Diggs MONO # 0.8 103/ul Normal 0.3-0.8 [facility] Comment on above: Performed By: #### C BC #### [facility] [address] [place] [address] Dr. Benoit Diggs Monocytes/100 WBC (Bld) 7.9 % Normal 1.7-12.0 [facility] Comment on above: Performed By: #### C BC #### [facility] [address] [place] [address] Dr. Benoit Diggs NEUT # 5.4 103/ul Normal 1.4-6.5 [facility] Comment on above: Performed By: #### C BC #### [facility] [address] [address] [address] Benoit Diggs Neutrophils/100 WBC (Bld) 57.1 % Normal 43.0-75.0 [facility] Comment on above: Performed By: #### C BC #### [facility] [address] [address] [address] Benoit Diggs Platelet mean volume (Bld) [Entitic vol] 11.9 fL Normal 9.5-13.5 [facility] Comment on above: Performed By: #### C BC #### [facility] [address] [address] [address] Benoit Diggs PLT 180 103/ul Normal 150-450 [facility] Comment on above: Performed By: #### C BC #### [facility] [address] [address] [address] Benoit Diggs RBC 2.76 106/ul Critically low 4.20-5.40 [facility] Comment on above: Performed By: #### C BC #### [facility] [address] [address] [address] Benoit Diggs WBC 9.5 103/ul Normal 4.0-11.0 [facility] Comment on above: Performed By: #### C BC #### [facility] [address] [address] [address] Benoit Diggs AMNISUREon 12-01-2022 AMNISURE Negative Normal NEGATIVE [facility] Comment on above: Performed By: #### C BC #### [facility] [address] [address] [address] Benoit Diggs CBC AUTO DIFFon 12-01-2022 BASO # 0.1 103/ul Normal 0.0-0.1 [facility] Comment on above: Performed By: #### C BC ####[facility] [address] [place] [address]Dr. Benoit Diggs Basophils/100 WBC (Bld) 0.6 % Normal 0.2-2.0 [facility] Comment on above: Performed By: #### C BC ####[facility] [address] [place] [address]Dr. Benoit Diggs EO # 0.4 103/ul Normal 0.0-0.7 [facility] Comment on above: Performed By: #### C BC ####[facility] [address]ht[address] [place] [address]Dr. Benoit Diggs Eosinophils/100 WBC (Bld) 3.5 % Normal 0.9-7.0 [facility] Comment on above: Performed By: #### C BC ####[facility] [address]ra[address] [place] [address]Dr. Benoit Diggs Erythrocyte distribution width (RBC) [Ratio] 15.4 % Critically high 11.0-15.0 [facility] Comment on above: Performed By: #### C BC ####[facility] [address] [place] [address]Dr. Benoit Diggs Hematocrit (Bld) [Volume fraction] 26.4 % Critically low 36.0-48.0 [facility] Comment on above: Performed By: #### C BC ####[facility] Eyvo[address]uk[address] [place], [place] [address]Dr. Benoit Diggs Hemoglobin (Bld) [Mass/Vol] 8.4 g/dL Critically low 12.0-16.0 [facility] Comment on above: Performed By: #### C BC ####[facility] [address] [place], [place] [address]Dr. Benoit Diggs IG # 0.04 10e3/ul Critically high 0.00-0.03 [facility] Comment on above: Performed By: #### C BC ####[facility] Iz[address]vko[address] [place], [place] [address]Dr. Benoit Diggs IG % 0.4 % Normal 0.0-0.5 [facility] Comment on above: Performed By: #### C BC ####[facility] [address] [place], [place] [address]Dr. Benoit Diggs LYMPH # 2.8 103/ul Normal 1.2-3.8 [facility] Comment on above: Performed By: #### C BC ####[facility] [address] [place] [address]Dr. Benoit Dontae Lymphocytes/100 WBC (Bld) 26.9 % Normal 20.5-60.0 [facility] Comment on above: Performed By: #### C BC ####[facility] [address] [place] [address]Dr. Benoit Dontae MANUAL DIFF REQ NO Normal [facility] Comment on above: Performed By: #### C BC ####[facility] [address] [place] [id number]. Benoit Dontae MCH (RBC) [Entitic mass] 24.7 pg Critically low 26.7-34.0 [facility] Comment on above: Performed By: #### C BC ####[facility] [address] [place], [place] [address]Dr. Benoit Dontae MCHC (RBC) [Mass/Vol] 31.8 g/dL Normal 29.9-35.2 [facility] Comment on above: Performed By: #### C BC ####[facility] [address]nd[address] [place] [address]Dr. Benoit Dontae MCV (RBC) [Entitic vol] 77.6 fL Critically low 81.0-99.0 [facility] Comment on above: Performed By: #### C BC ####[facility] [address] [place], [place] [address]Dr. Benoit Dontae MONO # 0.7 103/ul Normal 0.3-0.8 [facility] Comment on above: Performed By: #### C BC ####[facility] [address]kl[address] [place] [address]Dr. Karyaurora Diggs Monocytes/100 WBC (Bld) 6.2 % Normal 1.7-12.0 [facility] Comment on above: Performed By: #### C BC ####[facility] [address] [place], [place] [address]Dr. Benoit Diggs NEUT # 6.5 103/ul Normal 1.4-6.5 [facility] Comment on above: Performed By: #### C BC ####[facility] [facility] [id number] [place] [address]Dr. Benoit Diggs Neutrophils/100 WBC (Bld) 62.4 % Normal 43.0-75.0 [facility] Comment on above: Performed By: #### C BC ####[facility] [id number] [address]Dr. Benoit Diggs Platelet mean volume (Bld) [Entitic vol] 11.0 fL Normal 9.5-13.5 [facility] Comment on above: Performed By: #### C BC ####[facility] [id number] [address]Dr. Benoit Diggs PLT 215 103/ul Normal 150-450 [facility] Comment on above: Performed By: #### C BC ####[facility] [address] [address]Dr. Benoit Diggs RBC 3.40 106/ul Critically low 4.20-5.40 [facility] Comment on above: Performed By: #### C BC ####[facility] [address] [address]Dr. Benoit Diggs WBC 10.4 103/ul Normal 4.0-11.0 [facility] Comment on above: Performed By: #### C BC ####[facility] [address] [address]DrJael Diggs DRUG SCREEN RAPID (URINE)on 12-01-2022 AMP Negative Normal NEGATIVE [facility] Comment on above: Performed By: #### C BC #### [facility] [address] [address] [address] Benoit Diggs BAR Negative Normal NEGATIVE [facility] Comment on above: Performed By: #### C BC #### [facility] [address] [address] [address] Benoit Diggs BUP Negative Normal NEGATIVE [facility] Comment on above: Performed By: #### C BC #### [facility] [address] [address] [address] Benoit Diggs BZO Negative Normal NEGATIVE [facility] Comment on above: Performed By: #### C BC #### [facility] [address] [place] [address] Dr. Benoit Diggs JOSE MANUEL Negative Normal NEGATIVE [facility] Comment on above: Performed By: #### C BC #### [facility] [address] [place] [address] Dr. Benoit Diggs CUT-OFFS SEE BELOW Normal [facility] Comment on above: Result Comment: AMP (Amphetamine): 500ng/mL, BAR (Barbituates): 200 ng/mL, BZO (Benzodiazepines): 150 ng/mL, BUP (Buprenorphine): 10 ng/mL, JOSE MANUEL (Cocaine): 150 ng/mL, mAMP (Methamphetamine): 500 ng/mL, MTD (Methadone): 200 ng/mL, OPI (Opiates): 100 ng/mL, OXY (Oxycodone): 100 ng/mL, PCP (Phencyclidine): 25 ng/mL, PPX (Propoxyphene): 300 ng/mL, THC (Cannabinoids): 50 ng/mL, TCA (Trycyclic Antidepressants): 300 ng/mL Performed By: #### C BC #### [facility] [address] [place] [address] Dr. Benoit Diggs DRUG CUT HEADER DRUG CLASS TEST SYSTEM CUT-OFF CONCENTRATIONS ARE FOLLOWS: Normal [facility] Comment on above: Performed By: #### C BC #### [facility] [address] [place] [address] Dr. Benoit Diggs mAMP Negative Normal NEGATIVE [facility] Comment on above: Performed By: #### C BC #### [facility] [address] [place] [address] Dr. Benoit Diggs MTD Negative Normal NEGATIVE [facility] Comment on above: Performed By: #### C BC #### [facility] [address] [place] [address] Dr. Benoit Diggs OPI Negative Normal NEGATIVE [facility] Comment on above: Performed By: #### C BC #### [facility] [address] [place] [address] Dr. Benoit Diggs OXY Negative Normal NEGATIVE [facility] Comment on above: Performed By: #### C BC #### [facility] [address] [place] [address] Dr. Benoit Diggs PCP Negative Normal NEGATIVE [facility] Comment on above: Performed By: #### C BC #### [facility] [address] [place] [address] Dr. Benoit Diggs PPX Negative Normal NEGATIVE [facility] Comment on above: Performed By: #### C BC #### [facility] [address] [place] [address] Dr. Benoit Diggs TCA Negative Normal NEGATIVE [facility] Comment on above: Performed By: #### C BC #### [facility] [address] [place] [address] Dr. Benoit Diggs THC Negative Normal NEGATIVE [facility] Comment on above: Performed By: #### C BC #### [facility] [address] [place] [address] Dr. Benoit Diggs TYPE AND SCREENon 12-01-2022 TYPE AND SCREEN Negative Normal [facility] Comment on above: Performed By: #### T NS #### [facility] [address] [place] [address] Dr. Benoit Diggs UA (CLEAN/CATCH) STRUCTURAL STEEL ENGINEER/MICRO I F IND.on 12-01-2022 Bilirubin Ql (U) Negative Normal NEGATIVE [facility] Comment on above: Performed By: #### C BC #### [facility] [address] [place] [address] Dr. Benoit Diggs Clarity (U) CLEAR Normal CLEAR [facility] Comment on above: Performed By: #### C BC #### [facility] [address] [place] [address] Dr. Benoit Diggs Color (U) YELLOW Normal YELLOW [facility] Comment on above: Performed By: #### C BC #### [facility] [address] [place] [address] Dr. Benoit Diggs Glucose Ql (U) Negative Normal NEGATIVE [facility] Comment on above: Performed By: #### C BC #### [facility] [address] [place] [address] Dr. Benoit Diggs Hemoglobin Ql (U) Negative Normal NEGATIVE [facility] Comment on above: Performed By: #### C BC #### [facility] [address] [place] [address] Dr. Benoit Diggs Ketones Ql (U) Negative Normal NEGATIVE [facility] Comment on above: Performed By: #### C BC #### [facility] [address] [place] [address] Dr. Benoit Diggs LEUKOCYTES Negative Normal NEGATIVE [facility] Comment on above: Performed By: #### C BC #### [facility] [address] [place] [address] Dr. Benoit Diggs Nitrite Ql (U) Negative Normal NEGATIVE [facility] Comment on above: Performed By: #### C BC #### [facility] [address] [place] [address] Dr. Benoit Diggs pH (U) 6.0 [pH] Normal 5-9 [facility] Comment on above: Performed By: #### C BC #### [facility] [address] [place] [address] Dr. Benoit Diggs SPEC GRAVITY 1.010 Normal 1.005-<=1.025 [facility] Comment on above: Performed By: #### C BC #### [facility] [address] [place] [address] Dr. Benoit Diggs UA PROTEIN TRACE Normal NEGATIVE/ TRACE [facility] Comment on above: Performed By: #### C BC #### [facility] [address] [place] [address] Dr. Benoit Diggs UR MICRO IND NOT INDICATED Normal [facility] Comment on above: Performed By: #### C BC #### [facility] [address] [place] [address] Dr. Benoit Diggs Urobilinogen Qn (U) 4 {Nadege'U}/dL Abnormal 0.2 - 1.0 [facility] Comment on above: Performed By: #### C BC #### [facility] [address] [place] [address] Dr. Benoit Diggs CULTURE URINEon 11-29-2022 CULTURE URINE Culture Observations : MODERATE GROWTH OF MIXED GENITAL RIZWAN. NO POTENTIAL PATHOGENS SEEN. Normal [facility] Comment on above: Performed By: #### U RCX #### [facility] [address] [place] [address] Dr. Benoit Diggs UA (CLEAN/CATCH) STRU[employer]URAL STEEL ENGINEER/MICRO I F IND.on 11-29-2022 Bilirubin Ql (U) SMALL Abnormal NEGATIVE [facility] Comment on above: Performed By: #### C BC #### [facility] [address] [place] [address] Dr. Benoit Diggs Clarity (U) CLEAR Normal CLEAR [facility] Comment on above: Performed By: #### C BC #### [facility] [address] [place] [address] Dr. Benoit Diggs Color (U) DK. ORANGE Abnormal YELLOW [facility] Comment on above: Performed By: #### C BC #### [facility] [address] [place] [address] Dr. Benoit Diggs Glucose Ql (U) Negative Normal NEGATIVE [facility] Comment on above: Performed By: #### C BC #### [facility] [address] [place] [address] Dr. Benoit Diggs Hemoglobin Ql (U) Negative Normal NEGATIVE [facility] Comment on above: Performed By: #### C BC #### [facility] [address] [place] [address] Dr. Benoit Diggs Ketones Ql (U) TRACE Abnormal NEGATIVE [facility] Comment on above: Performed By: #### C BC #### [facility] [address] [place] [address] Dr. Benoit Diggs LEUKOCYTES SMALL Abnormal NEGATIVE [facility] Comment on above: Performed By: #### C BC #### [facility] [address] [place] [address] Dr. Benoit Diggs Nitrite Ql (U) Negative Normal NEGATIVE [facility] Comment on above: Performed By: #### C BC #### [facility] [address] [place] [address] Dr. Benoit Diggs pH (U) 5.5 [pH] Normal 5-9 [facility] Comment on above: Performed By: #### C BC #### [facility] [address] [place] [address] Dr. Benoit Diggs SPEC GRAVITY >=1.030 Abnormal 1.005-<=1.025 [facility] Comment on above: Performed By: #### C BC #### [facility] [address] [place] [address] Dr. Benoit Diggs UA PROTEIN 100 mg/dl Abnormal NEGATIVE/ TRACE [facility] Comment on above: Performed By: #### C BC #### [facility] [address] [place] [address] Dr. Benoit Diggs UR MICRO IND INDICATED Normal [facility] Comment on above: Performed By: #### C BC #### [facility] [address] [place] [address] Dr. Benoit Diggs Urobilinogen Qn (U) 8 {Nadege'U}/dL Abnormal 0.2 - 1.0 [facility] Comment on above: Performed By: #### C BC #### [facility] [address] [place] [address] Dr. Benoit Diggs URINE MICROSCOPIC ONLYon BACTERIA MODERATE Abnormal NONE SEEN [facility] Comment on above: Performed By: #### C BC #### [facility] [address] [place] [address] Dr. Benoit Diggs Bacteria identified Cx Nom (U) INDICATED Normal [facility] Comment on above: Performed By: #### C BC #### [facility] [address] [place] [address] Dr. Benoit Diggs CAST NONE SEEN Normal NONE SEEN [facility] Comment on above: Performed By: #### C BC #### [facility] [address] [place] [address] Dr. Benoit Diggs Crystals LM Nom (Urine sed) NONE SEEN Normal NONE SEEN [facility] Comment on above: Performed By: #### C BC #### [facility] [address] [place] [address] Dr. Benoit Diggs Epithelial cells LM Ql (Urine sed) MANY Abnormal NONE SEEN /RARE [facility] Comment on above: Performed By: #### C BC #### [facility] [address] [place] [address] Dr. Benoit Diggs MUCOUS SMALL Abnormal NONE SEEN [facility] Comment on above: Performed By: #### C BC #### [facility] [address] [place] [address] Dr. Benoit Diggs RBC 5-10 Abnormal 0-2 [facility] Comment on above: Performed By: #### C BC #### [facility] [address] [place] [address] Dr. Benoit Diggs WBC 20-50 Abnormal NONE SEEN [facility] Comment on above: Performed By: #### C BC #### [facility] [address] [place] [address] Dr. Benoit Diggs GROUP B STREP CULTUREon 10-22 S. agalactiae Ag Ql (Unsp spec) Culture Observations: NEGATIVE FOR GROUP B STREPTOCOCCUS. Normal [facility] Comment on above: Performed By: #### G BSCX #### [facility] [address] [place] [address] Dr. Benoit Diggs CBC AUTO DIFFon 09-22-2022 BASO # 0.0 103/ul Normal 0.0-0.1 [facility] Comment on above: Performed By: #### C BC #### [facility] [address] [place] [address] Dr. Benoit Diggs Basophils/100 WBC (Bld) 0.3 % Normal 0.2-2.0 [facility] Comment on above: Performed By: #### C BC #### [facility] [address] [place] [address] Dr. Benoit Diggs EO # 0.1 103/ul Normal 0.0-0.7 [facility] Comment on above: Performed By: #### C BC #### [facility] [address] [place] [address] Dr. Benoit Diggs Eosinophils/100 WBC (Bld) 2.0 % Normal 0.9-7.0 [facility] Comment on above: Performed By: #### C BC #### [facility] [address] [place] [address] Dr. Benoit Diggs Erythrocyte distribution width (RBC) [Ratio] 12.7 % Normal 11.0-15.0 [facility] Comment on above: Performed By: #### C BC #### [facility] [address] [place] [address] Dr. Benoit Diggs Hematocrit (Bld) [Volume fraction] 30.6 % Critically low 36.0-48.0 [facility] Comment on above: Performed By: #### C BC #### [facility] [address] [place] [address] Dr. Benoit Diggs Hemoglobin (Bld) [Mass/Vol] 10.1 g/dL Critically low 12.0-16.0 [facility] Comment on above: Performed By: #### C BC #### [facility] [address] [place] [address] Dr. Benoit Diggs IG # 0.03 10e3/ul Normal 0.00-0.03 [facility] Comment on above: Performed By: #### C BC #### [facility] [address] [place] [address] Dr. Benoit Diggs IG % 0.5 % Normal 0.0-0.5 [facility] Comment on above: Performed By: #### C BC #### [facility] [address] [place] [address] Dr. Benoit Diggs LYMPH # 0.6 103/ul Critically low 1.2-3.8 [facility] Comment on above: Performed By: #### C BC #### [facility] [address] [place] [address] Dr. Benoit Diggs Lymphocytes/100 WBC (Bld) 10.7 % Critically low 20.5-60.0 [facility] Comment on above: Performed By: #### C BC #### [facility] [address] [place] [address] Dr. Benoit Diggs MANUAL DIFF REQ NO Normal [facility] Comment on above: Performed By: #### C BC #### [facility] [address] [place] [address] Dr. Benoit Diggs MCH (RBC) [Entitic mass] 28.9 pg Normal 26.7-34.0 [facility] Comment on above: Performed By: #### C BC #### [facility] [address] [place] [address] Dr. Benoit Diggs MCHC (RBC) [Mass/Vol] 33.0 g/dL Normal 29.9-35.2 [facility] Comment on above: Performed By: #### C BC #### [facility] [address] [place] [address] Dr. Benoit Dgigs MCV (RBC) [Entitic vol] 87.4 fL Normal 81.0-99.0 [facility] Comment on above: Performed By: #### C BC #### [facility] [address] [place] [address] Dr. Benoit Diggs MONO # 0.6 103/ul Normal 0.3-0.8 [facility] Comment on above: Performed By: #### C BC #### [facility] [address] [place] [address] Dr. Benoit Diggs Monocytes/100 WBC (Bld) 10.9 % Normal 1.7-12.0 [facility] Comment on above: Performed By: #### C BC #### [facility] [address] [place] [address] Dr. Benoit Diggs NEUT # 4.4 103/ul Normal 1.4-6.5 [facility] Comment on above: Performed By: #### C BC #### [facility] [address] [place] [address] Dr. Benoit Diggs Neutrophils/100 WBC (Bld) 75.6 % Critically high 43.0-75.0 [facility] Comment on above: Performed By: #### C BC #### [facility] [address] [place] [address] Dr. Benoit Diggs Platelet mean volume (Bld) [Entitic vol] 10.9 fL Normal 9.5-13.5 [facility] Comment on above: Performed By: #### C BC #### [facility] [address] [place] [address] Dr. Benoit Diggs PLT 191 103/ul Normal 150-450 [facility] Comment on above: Performed By: #### C BC #### [facility] [address] [place] [address] Dr. Benoit Diggs RBC 3.50 106/ul Critically low 4.20-5.40 [facility] Comment on above: Performed By: #### C BC #### [facility] [address] [place] [address] Dr. Benoit Diggs WBC 5.9 103/ul Normal 4.0-11.0 [facility] Comment on above: Performed By: #### C BC #### [facility] [address] [place] [address] Dr. Benoit Diggs CULTURE URINEon 09-22-2022 CULTURE URINE Culture Observations : HEAVY GROWTH OF MIXED GENITAL RIZWAN. NO POTENTIAL PATHOGENS SEEN. Normal [facility] Comment on above: Performed By: #### U RCX #### [facility] [address] [place] [address] Dr. Benoit Diggs ER URINE PROFILEon Bilirubin Ql (U) Negative Normal NEGATIVE [facility] Comment on above: Performed By: #### H IV12 #### [facility] [address] [place] [address] Dr. Benoit Diggs Clarity (U) CLEAR Normal CLEAR [facility] Comment on above: Performed By: #### H IV12 #### [facility] [address] [place] [address] Dr. Benoit Diggs Color (U) YELLOW Normal YELLOW [facility] Comment on above: Performed By: #### H IV12 #### [facility] [address] [place] [address] Dr. Benoit VELA A micrscopic examination will be performed if indicated. Normal [facility] Comment on above: Performed By: #### H IV12 #### [facility] [address] [place] [address] Dr. Benoit Diggs Glucose Ql (U) Negative Normal NEGATIVE [facility] Comment on above: Performed By: #### H IV12 #### [facility] [address] [address] [address] Benoit Diggs Hemoglobin Ql (U) Negative Normal NEGATIVE [facility] Comment on above: Performed By: #### H IV12 #### [facility] [address] [address] [address] Benoit Diggs Ketones Ql (U) 15 mg/dl Abnormal NEGATIVE [facility] Comment on above: Performed By: #### H IV12 #### [facility] [address] [place] [address] Dr. Benoit Diggs LEUKOCYTES Negative Normal NEGATIVE [facility] Comment on above: Performed By: #### H IV12 #### [facility] [address] [place] [address] Dr. Benoit Diggs Nitrite Ql (U) Negative Normal NEGATIVE [facility] Comment on above: Performed By: #### H IV12 #### [facility] [address] [place] [address] Dr. Benoit Diggs pH (U) 6.5 [pH] Normal 5-9 [facility] Comment on above: Performed By: #### H IV12 #### [facility] [address] [place] [address] Dr. Benoit Diggs SPEC GRAVITY 1.025 Normal 1.005-<=1.025 [facility] Comment on above: Performed By: #### H IV12 #### [facility] [address] [place] [address] Dr. Benoit Diggs UA PROTEIN TRACE Normal NEGATIVE/ TRACE [facility] Comment on above: Performed By: #### H IV12 #### [facility] [address] [place] [address] Dr. Benoit Diggs UR MICRO IND INDICATED Normal [facility] Comment on above: Performed By: #### H IV12 #### [facility] [address] [place] [address] Dr. Benoit Diggs Urobilinogen Qn (U) 1.0 {Nadege'U}/dL Normal 0.2 - 1. 0 [facility] Comment on above: Performed By: #### H IV12 #### [facility] [address] [place] [address] Dr. Benoit Diggs INFLUENZA A AND B AGon 09-22 INFLUANEGH SEE BELOW Normal [facility] Comment on above: Result Comment: Nega tive for Flu A protein angiten. Infection due to Flu A cannot be ruled out. Flu A angiten in the sample may be below the detection limit of the test. Performed By: #### H IV12 #### [facility] [address] [place] [address] Dr. Benoit Diggs INFLUBNEG SEE BELOW Normal [facility] Comment on above: Result Comment: Nega tive for Flu B protein antigen. Infection due to Flu B cannot be ruled out. Flu B antigen in the sample may be below the detection limit of the test. Performed By: #### H IV12 #### [facility] [address] [place] [address] Dr. Benoit Diggs INFLUENZA A AG Negative Normal NEGATIVE SEE COMMENT [facility] Comment on above: Performed By: #### H IV12 #### [facility] [address] [place] [address] Dr. Benoit Diggs INFLUENZA B AG Negative Normal NEGATIVE SEE COMMENT [facility] Comment on above: Performed By: #### H IV12 #### [facility] [address] [place] [address] Dr. Benoit Diggs INTERNAL CONTROLS Within Normal Limits Normal Wi thin Normal Limits [facility] Comment on above: Performed By: #### H IV12 #### [facility] [address] [place] [address] Dr. Benoit Diggs PROF CHEM 8 (BAS METB)on Anion gap [Moles/Vol] 11.6 mmol/L Normal [facility] Comment on above: Performed By: #### C BC #### [facility] [address] [place] [address] Dr. Benoit Diggs Calcium [Mass/Vol] 8.2 mg/dL Critically low 8.5-10.1 [facility] Comment on above: Performed By: #### C BC #### [facility] [address] [address] [address] Benoit Diggs Chloride [Moles/Vol] 100 mmol/L Normal 98-107 [facility] Comment on above: Performed By: #### C BC #### [facility] [address] [address] [address] Benoit Diggs CO2 [Moles/Vol] 23.9 mmol/L Normal 21.0-32.0 [facility] Comment on above: Performed By: #### C BC #### [facility] [address] [place] [address] Dr. Benoit Diggs Creatinine [Mass/Vol] 0.48 mg/dL Critically low 0.55-1.02 [facility] Comment on above: Performed By: #### C BC #### [facility] [address] [place] [address] Dr. Benoit Diggs EGFR-AF RWANDAN >60 Normal >=60 [facility] Comment on above: Performed By: #### C BC #### [facility] [address] [place] [address] Dr. Benoit Diggs EGFR-NON AF RWANDAN >60 Normal >=60 [facility] Comment on above: Performed By: #### C BC #### [facility] [address] [address] [address] Benoit Diggs Glucose [Mass/Vol] 94 mg/dL Normal 74-[address] [facility] Comment on above: Performed By: #### C BC #### [facility] [address] [address] [address] Benoit Diggs Potassium [Moles/Vol] 3.5 mmol/L Normal 3.5-5.1 [facility] Comment on above: Performed By: #### C BC #### [facility] [address] [place] [address] Dr. Benoit Diggs Sodium [Moles/Vol] 132 mmol/L Critically low 136-145 [facility] Comment on above: Performed By: #### C BC #### [facility] [address] [address] [address] Benoit Diggs Urea nitrogen [Mass/Vol] 6.0 mg/dL Critically low 7.0-18.0 [facility] Comment on above: Performed By: #### C BC #### [facility] [address] [place] [address] Dr. Benoit Diggs Urea nitrogen/Creatinine [Mass ratio] 12.5 mg/mg Normal [facility] Comment on above: Performed By: #### C BC #### [facility] [address] [address] [address] Benoit Diggs RESPIRATORY PANEL PLUSon Adenovirus Not detected Normal NOT DETECTED [facility] Comment on above: Performed By: #### R SPLUS ####[facility] [address] [place], [place] [address]Dr. Benoit Diggs B. Parapertusis Not detected Normal NOT DETECTED [facility] Comment on above: Performed By: #### R SPLUS ####[facility] [address] [place], [place] [address]Dr. Benoit Diggs B. Pertussis Not detected Normal NOT DETECTED [facility] Comment on above: Performed By: #### R SPLUS ####[facility] [address] [place], [place] [address]Dr. Benoit Diggs Chlamydia Pneumoniae Not detected Normal NOT DETECTED [facility] Comment on above: Performed By: #### R SPLUS ####[facility] [address] [place], [place] [address]Dr. Benoit Diggs Coronavirus 229E Not detected Normal NOT DETECTED [facility] Comment on above: Performed By: #### R SPLUS ####[facility] [address] [place], [place] [address]Dr. Benoit Diggs Coronavirus HKU1 Not detected Normal NOT DETECTED [facility] Comment on above: Performed By: #### R SPLUS ####[facility] [address] [place], [place] [address]Dr. Benoit Diggs Coronavirus NL63 Not detected Normal NOT DETECTED [facility] Comment on above: Performed By: #### R SPLUS ####[facility] Ku[address] [place], [place] [address]Dr. Benoit Diggs Coronavirus OC43 Not detected Normal NOT DETECTED [facility] Comment on above: Performed By: #### R SPLUS ####[facility] [address] [place], [place] [address]Dr. Benoit Diggs Influenza A H1 2009 Detected Abnormal NOT DETECTED [facility] Comment on above: Performed By: #### R SPLUS ####[facility] [address] [place], [place] [address]Dr. Benoit Diggs Influenza A H3 Not detected Normal NOT DETECTED [facility] Comment on above: Performed By: #### R SPLUS ####[facility] [address] [place], [place] [address]Dr. Benoit Diggs Influenza B Not detected Normal NOT DETECTED [facility] Comment on above: Performed By: #### R SPLUS ####[facility] [address] [place], [place] [address]Dr. Benoit Diggs Metapneumovirus Not detected Normal NOT DETECTED [facility] Comment on above: Performed By: #### R SPLUS ####[facility] [address] [place], [place] [address]Dr. Benoit Diggs Mycoplas. Pneumoniae Not detected Normal NOT DETECTED [facility] Comment on above: Performed By: #### R SPLUS ####[facility] [address] [place], [place] [address]Dr. Benoit Diggs Parainfluenza 1 Not detected Normal NOT DETECTED [facility] Comment on above: Performed By: #### R SPLUS ####[facility] [address] [place], [place] [address]Dr. Benoit Diggs Parainfluenza 2 Not detected Normal NOT DETECTED [facility] Comment on above: Performed By: #### R SPLUS ####[facility] [address] [place], [place] [address]Dr. Yiaurora Diggs Parainfluenza 3 Not detected Normal NOT DETECTED [facility] Comment on above: Performed By: #### R SPLUS ####[facility] [address] [place], [place] [address]Dr. Benoit Diggs Parainfluenza 4 Not detected Normal NOT DETECTED [facility] Comment on above: Performed By: #### R SPLUS ####[facility] [address] [place] [address]Dr. Benoit Diggs Rhino/Enterovirus Not detected Normal NOT DETECTED [facility] Comment on above: Performed By: #### R SPLUS ####[facility] [address] [place], [place] [address]Dr. Benoit Diggs RP2 Header 1 RESPIRATORY PANEL: VIRUSES Normal [facility] Comment on above: Performed By: #### R SPLUS ####[facility] [address] [place], [place] [address]Dr. Benoit Diggs RP2 Header 2 RESPIRATORY PANEL: BACTERIA Normal [facility] Comment on above: Performed By: #### R SPLUS ####[facility] [address] [place], [place] [address]Dr. Benoit Diggs RSV Not detected Normal NOT DETECTED [facility] Comment on above: Performed By: #### R SPLUS ####[facility] [address] [place], [place] [address]Dr. Benoit Diggs SARS-CoV-2 (COVID-19) RNA RANDOLPH+probe Ql (Unsp spec) Not detected Normal NOT DETECTED [facility] Comment on above: Performed By: #### R SPLUS ####[facility] [address] [place], [place] [address]Dr. Benoit Diggs Result Comment: When diagnostic testing is negative, the possibility of a false negative should be considered in the context of a patient's recent exposures and the presence of clinical signs and symptoms consistent with SARS-CoV-2. This test is not yet approved or cleared by the [place] FDA. When there are no FDA-approved or cleared tests available, and other criteria are met, FDA can make tests available under an emergency access mechanism called an Emergency Use Authorization (EUA). The EUA for this test is supported by the [employer] of [employer] and Human Service's declaration that circumstances exist to justify the emergency use of in vitro diagnostics for the detection and/or diagnosis of the virus that causes COVID-19. This EUA will remain in effect for the duration of the COVID-19 declaration justifying emergency of IVDs, unless it is terminated or revoked by the FDA (after which the test may no longer be used). Performed By: #### H IV12 #### [facility] [address] [place] [address] Dr. Benoit Diggs URINE MICROSCOPIC ONLYon BACTERIA TRACE Abnormal NONE SEEN [facility] Comment on above: Performed By: #### H IV12 #### [facility] [address] [place] [address] Dr. Benoit Diggs Bacteria identified Cx Nom (U) INDICATED Normal [facility] Comment on above: Performed By: #### H IV12 #### [facility] [address] [place] [address] Dr. Benoit Diggs CAST NONE SEEN Normal NONE SEEN [facility] Comment on above: Performed By: #### H IV12 #### [facility] [address] [place] [address] Dr. Benoit Diggs Crystals LM Nom (Urine sed) NONE SEEN Normal NONE SEEN [facility] Comment on above: Performed By: #### H IV12 #### [facility] [address] [place] [address] Dr. Benoit Diggs Epithelial cells LM Ql (Urine sed) MODERATE Abnormal NONE SEEN /RARE [facility] Comment on above: Performed By: #### H IV12 #### [facility] [address] [place] [address] Dr. Benoit Diggs MUCOUS NONE SEEN Normal NONE SEEN [facility] Comment on above: Performed By: #### H IV12 #### [facility] [address] [place] [address] Dr. Benoit Diggs RBC 0-2 Normal 0-2 [facility] Comment on above: Performed By: #### H IV12 #### [facility] [address] [place] [address] Dr. Benoit Diggs WBC 5-10 Abnormal NONE SEEN [facility] Comment on above: Performed By: #### H IV12 #### [facility] [address] [place] [address] Dr. Benoit Diggs CBC AUTO DIFFon 11-21-2022 BASO # 0.1 103/ul Normal 0.0-0.1 [facility] Comment on above: Performed By: #### C BC #### [facility] [address] [address] [address] Benoit Diggs Basophils/100 WBC (Bld) 0.5 % Normal 0.2-2.0 [facility] Comment on above: Performed By: #### C BC #### [facility] [address] [address] [address] Benoit Diggs EO # 0.4 103/ul Normal 0.0-0.7 [facility] Comment on above: Performed By: #### C BC #### [facility] [address] [place] [address] Dr. Benoit Diggs Eosinophils/100 WBC (Bld) 4.1 % Normal 0.9-7.0 [facility] Comment on above: Performed By: #### C BC #### [facility] [address] [place] [address] Dr. Benoit Diggs Erythrocyte distribution width (RBC) [Ratio] 12.8 % Normal 11.0-15.0 [facility] Comment on above: Performed By: #### C BC #### [facility] [address] [place] [address] Dr. Benoit Diggs Hematocrit (Bld) [Volume fraction] 31.4 % Critically low 36.0-48.0 [facility] Comment on above: Performed By: #### C BC #### [facility] [address] [place] [address] Dr. Benoit Diggs Hemoglobin (Bld) [Mass/Vol] 10.5 g/dL Critically low 12.0-16.0 [facility] Comment on above: Performed By: #### C BC #### [facility] [address] [place] [address] Dr. Benoit Diggs IG # 0.05 10e3/ul Critically high 0.00-0.03 [facility] Comment on above: Performed By: #### C BC #### [facility] [address] [place] [address] Dr. Benoit Diggs IG % 0.5 % Normal 0.0-0.5 [facility] Comment on above: Performed By: #### C BC #### [facility] [address] [place] [address] Dr. Benoit Diggs LYMPH # 2.2 103/ul Normal 1.2-3.8 [facility] Comment on above: Performed By: #### C BC #### [facility] [address] [place] [address] Dr. Benoit Diggs Lymphocytes/100 WBC (Bld) 21.9 % Normal 20.5-60.0 [facility] Comment on above: Performed By: #### C BC #### [facility] [address] [place] [address] Dr. Benoit Diggs MANUAL DIFF REQ NO Normal [facility] Comment on above: Performed By: #### C BC #### [facility] [address] [place] [address] Dr. Benoit Diggs MCH (RBC) [Entitic mass] 29.7 pg Normal 26.7-34.0 [facility] Comment on above: Performed By: #### C BC #### [facility] [address] [place] [address] Dr. Benoit Diggs MCHC (RBC) [Mass/Vol] 33.4 g/dL Normal 29.9-35.2 [facility] Comment on above: Performed By: #### C BC #### [facility] [address] [place] [address] Dr. Benoit Diggs MCV (RBC) [Entitic vol] 89.0 fL Normal 81.0-99.0 [facility] Comment on above: Performed By: #### C BC #### [facility] [address] [place] [address] Dr. Benoit Diggs MONO # 0.6 103/ul Normal 0.3-0.8 [facility] Comment on above: Performed By: #### C BC #### [facility] [address] [place] [address] Dr. Benoit Diggs Monocytes/100 WBC (Bld) 5.7 % Normal 1.7-12.0 [facility] Comment on above: Performed By: #### C BC #### [facility] [address] [address] [address] Benoit Diggs NEUT # 6.8 103/ul Critically high 1.4-6.5 [facility] Comment on above: Performed By: #### C BC #### [facility] [address] [address] [address] Benoit Diggs Neutrophils/100 WBC (Bld) 67.3 % Normal 43.0-75.0 [facility] Comment on above: Performed By: #### C BC #### [facility] [address] [address] [address] Benoit Diggs Platelet mean volume (Bld) [Entitic vol] 11.0 fL Normal 9.5-13.5 [facility] Comment on above: Performed By: #### C BC #### [facility] [address] [address] [address] Benoit Diggs PLT 215 103/ul Normal 150-450 [facility] Comment on above: Performed By: #### C BC #### [facility] [address] [address] [address] Benoit Diggs RBC 3.53 106/ul Critically low 4.20-5.40 [facility] Comment on above: Performed By: #### C BC #### [facility] [address] [address] [address] Benoit Diggs WBC 10.2 103/ul Normal 4.0-11.0 [facility] Comment on above: Performed By: #### C BC #### [facility] [address] [address] [address] Benoit Diggs GLUCOSE - 1HRon 09-09-2022 Glucose [Mass/Vol] 116 mg/dL Critically high 74-106 [facility] Comment on above: Performed By: #### G LU1HR ####[facility] [address] [place] [address]Dr. Benoit Diggs PAP ACOG PANEL 2: 21 to 29on 08-13-2022 . . Normal [facility] Comment on above: Performed By: #### C BC #### [facility] [address] [place] [address] Dr. Benoit Diggs Age Gdln ACOG Testing - [facility] Comment on above: Performed By: #### C BC #### [facility] [address] [address] [address] Benoit Diggs DIAGNOSIS: Comment [facility] Comment on above: Result Comment: NEGA TIVE FOR INTRAEPITHELIAL LESION OR MALIGNANCY. Performed By: #### C BC #### [facility] [address] [address] [address] Benoit Diggs Methodology: Comment [facility] Comment on above: Result Comment: This liquid based ThinPrep(R) pap test was screened with the use of an image guided system. Performed By: #### C BC #### [facility] [address] [place] [address] Dr. Benoit Diggs Note: Comment [facility] Comment on above: Result Comment: The Pap smear is a screening test designed to aid in the detection of premalignant and malignant conditions of the uterine cervix. It is not a diagnostic procedure and should not be used as the sole means of detecting cervical cancer. Both false-positive and false-negative reports do occur. . Performed By: #### C BC #### [facility] [address] [place] [address] Dr. Benoit Diggs Performed by: Comment Normal [facility] Comment on above: Result Comment: Cynthia Smith, Bsa/Aml Compliance Officer (ASCP) Performed By: #### C BC #### [facility] [address] [place] [address] Dr. Benoit Diggs Reflex Criteria: Comment [facility] Comment on above: Result Comment: The HPV DNA reflex criteria were not met with this specimen result therefore, no HPV testing was performed. . Performed By: #### C BC #### [facility] [address] [place] [address] Dr. Benoit Diggs Specimen adequacy: Comment [facility] Comment on above: Result Comment: Sati sfactory for evaluation. No endocervical component is identified. Performed By: #### C BC #### [facility] [address] [place], [place] [address] Dr. Benoit Diggs CHLAMYDIA/GONOCOCCUS RANDOLPH (SW AB/URINE/PAPon 08-08-2022 Chlamydia trachomatis, RANDOLPH Negative Normal Negative [facility] Comment on above: Performed By: #### H IV12 #### [facility] [address] Benoit Diggs Neisseria gonorrhoeae, RANDOLPH Negative Normal Negative [facility] Comment on above: Performed By: #### H IV12 #### [facility] [address] [place], [place] [address] Dr. Benoit Diggs US PREG INCOMPLETE ANATOMYon 08-07-2022 US PREG INCOMPLETE ANATOMY EXAMINATION: US PREG INCOMPLETE ANATOMY HISTORY: ultrasound scan abnormal COMPARISON: Ultrasound anatomy 07/25/2022 FINDINGS: Presentation: Cephalic RYAN: Subjectively normal Heart rate: 125 bpm Anatomy: Adequate visualization of kidneys, three-vessel cord, and cardiac outflow tracts; no appreciable abnormality. GA: 22 weeks 0 days CLEMENCIA: 12/11/2022 IMPRESSION: 1. Single live intrauterine . 2. No appreciable abnormality of the kidneys, three-vessel cord, and cardiac outflow tracts. Electronically authenticated by: MYLENE SULLIVAN Date: 2022-08-07 20:09 Normal [facility] US PREG ANATOMY SINGLEon US PREG ANATOMY SINGLE EXAMINATION: US PREG ANATOMY SINGLE HISTORY: anatomy study COMPARISON: No relevant comparison available. TECHNIQUE: Transabdominal sonographic examination was performed for obstetrical and evaluation. FINDINGS: Number: 1 Heart Rate: 143.0 bpm H.B. /min Amniotic Fluid Volume: Subjectively normal position: Cephalic presentation, longitudinal lie Placental Location: Posterior, grade 0. Placental edge 5.7 cm from the cervical os Cervix Length: 3.8 cm, closed Normally visualized anatomy: Cerebellum, choroid plexus, cisterna magna, lateral cerebral ventricles, orbits, midline falx, hard palate, four-chamber heart, stomach, kidneys, bladder, umbilical cord insertion into the abdomen, three-vessel cord, cervical spine, thoracic spine, lumbar spine, sacral spine, right upper extremity, left upper extremity, right lower extremity, left lower extremity Suboptimally visualized anatomy: RVOT, LVOT, kidneys, three-vessel cord BIOMETRY: BPD: 4.7 cm 20 weeks 1 days , 51% HC: 17.7 cm 20 weeks 1 days, 44% AC: 13.8 cm 19 weeks 2 days FL: 3.4 cm 20 weeks 6 days, 17%, 65% EFW:325.1 grams; 11 ounces, 37% FL/AC: 24.8 FL/BPD: 73.1 HC/AC: 1.3 GESTATIONAL AGE: Age by EDC: 20 weeks 1 days CLEMENCIA by EDC: 12/11/2022 Age by current US: 20 weeks 1 days CLEMENCIA by current US: 12/11/2022 IMPRESSION: Suboptimal visualization is detailed above, otherwise normal anatomy scan *Reference: [employer] Practice Guideline for the performance of Obstetric Ultrasound Examinations, July 20, 2007. Electronically authenticated by: AISHWARYA MAGALLON Date: 2022-07-25 17:11 Normal [facility] AFP MATERNAL FOR SPINA BIFID Aon 07-17-2022 AFP MoM 0.55 Normal [facility] Comment on above: Performed By: #### H IV12 #### [facility] [address] [address] [address] Benoit Diggs AFP Value 20.0 ng/mL Normal [facility] Comment on above: Performed By: #### H IV12 #### [facility] [address] [address] [address] Benoit Diggs AFP, Serum for Spina Bifida Report Normal [facility] Comment on above: Performed By: #### H IV12 #### [facility] [address] [address] [address] Benoit Diggs Comment Comment Normal [facility] Comment on above: Result Comment: Ector Palafox, Ph.D., [facility] Director . References: Available Upon Request. . Multiples Of Median Cutoffs For AFP Elevations Caro 2.5 Black 2.8 IDD 2.0 Twins 4.5 Abbreviation Definitions IDD - Insulin Dep Diabetes OSBR - Open Spina Bifida Risk . For further inquiries contact [employer] at [phone]. . This test was developed and its performance characteristics determined by [employer]. It has not been cleared or approved by the Food and Drug Administration. Performed By: #### H IV12 #### [facility] [address] [address] [address] Benoit Davey Age Collection Date 18.1 weeks Normal [facility] Comment on above: Performed By: #### H IV12 #### [facility] [address] [address] [address] Benoit Diggs Gestat, Age Based on Ultrasound Normal [facility] Comment on above: Result Comment: 13:1 on 06/06/2022 Recalculations are not recommended when gestational dating by LMP and ultrasound are within 10 days. Performed By: #### H IV12 #### [facility] [address] [address] [address] Benoit Diggs Insulin Dep Diabetes No Normal [facility] Comment on above: Performed By: #### H IV12 #### [facility] [address] [address] [address] Benoit Diggs Interpretation Comment Normal [facility] Comment on above: Result Comment: Inte rpretation: Screen Negative . This result is screen negative for OSB. The AFP MoM calculated is based on the gestational age provided. MS-AFP can identify up to 80% of open neural tube defects. Closed neural tube defects and some open defects may not be detected by this test. This test does not screen for Down Syndrome or Trisomy 18. If screening for Down Syndrome or Trisomy 18 is desired, contact [employer] to discuss available options. The [employer] recommends amniocentesis be offered to women age 35 and older. Performed By: #### H IV12 #### [facility] [address] [address] [address] Benoit Diggs [age] Normal [facility] Comment on above: Performed By: #### H IV12 #### [facility] [address] [address] [address] Benoit Diggs Multiple Gestation No Normal [facility] Comment on above: Performed By: #### H IV12 #### [facility] [address] [address] [address] Ben[place] Diggs [place] [address] Normal [facility] Comment on above: Performed By: #### H IV12 #### [facility] [address] [address] [address] Benoit Diggs PDF . Normal [facility] Comment on above: Performed By: #### H IV12 #### [facility] [address] [address] [address] Benoit Diggs Race Normal [facility] Comment on above: Performed By: #### H IV12 #### [facility] [address] [address] [address] Benoit Diggs Test Results: Negative Normal [facility] Comment on above: Performed By: #### H IV12 #### [facility] [address] [place] [address] Dr. Benoit Diggs HEP B SURFACE ANTIGEN SCREEN on 06-07-2022 HBsAg Screen Negative Normal Negative [facility] Comment on above: Performed By: #### H IV12 #### [facility] Laboratory [address] [place] [address] Dr. Benoit Diggs HEPATITIS C VIRUS AB W/ REFL EX QUANTon 06-07-2022 HCV AB <0.1 Normal 0.0-0.9 [facility] Comment on above: Performed By: #### H IV12 #### [facility] [address] [place] [address] Dr. Benoit Diggs Interpretation: Comment Normal [facility] Comment on above: Result Comment: Nega tive Not infected with HCV, unless recent infection is suspected or other evidence exists to indicate HCV infection. Performed By: #### H IV12 #### [facility] [address] [place] [address] Dr. Benoit Diggs HIV 1 AND 2 WITH REFLEXon HIV Screen 4th Generation wRfx Non-Reactive Normal Non Reactive [facility] Comment on above: Result Comment: HIV Negative HIV-1/HIV-2 antibodies and HIV-1 p24 antigen were NOT detected. There is no laboratory evidence of HIV infection. Performed By: #### H IV12 #### [facility] [address] [address] [address] Benoit Diggs RPR QUANTon 06-07-2022 Rapid Plasma Reagin, Quant Non-Reactive Normal NonRea<1:1 [facility] Comment on above: Result Comment: Janene infante Note: This test does not meet current guidelines for screening and diagnosis of syphilis. This test is intended for following treatment response in patients being treated for syphilis infection. To screen for syphilis infection, a reflex cascade that includes both RPR and a treponema-specific assay should be utilized, such as Treponema pallidum (Syphilis) Screening [place] (145468) or Rapid Plasma Reagin (RPR) Test With Reflex to Quantitative RPR and Confirmatory Treponema pallidum Antibodies (383638). Performed By: #### H IV12 #### [facility] [address] [place] [address] Dr. Benoit Diggs RUBELLA AB IGGon 06-07-2022 Rubella Antibodies, IgG 3.22 index Normal Immune >0.99 [facility] Comment on above: Result Comment: Non- immune <0.90 Equivocal 0.90 - 0.99 Immune >0.99 Performed By: #### C BC #### [facility] [address] [place] [address] Dr. Benoit Diggs US PREG <14 WKSon 06-07-2022 US PREG <14 WKS EXAMINATION: US PREG <14 WKS HISTORY: Irregular periods COMPARISON: No relevant comparison available. FINDINGS: GESTATIONAL SAC: Present and normal appearing. POLE: Present and normal appearing. YOLK SAC: Absent. CARDIAC: Present; 145 bpm UTERUS: Normal size and appearance. OVARIES: Right: Normal. Left: Normal. CERVIX: Unable to measure. CUL-DE-SAC: Normal. OTHER: None. AGE BY LMP: Unknown LMP CLEMENCIA BY LMP: AGE BY US CRL: 13 weeks, 1 day CLEMENCIA BY US CRL: 12/11/2022 IMPRESSION: 1. Single live intrauterine 13 weeks, 1 day. Electronically authenticated by: MYLENE SULLIVAN Date: 2022-06-06 22:25 Normal [facility] CBC AUTO DIFFon 06-06-2022 BASO # 0.1 103/ul Normal 0.0-0.1 [facility] Comment on above: Performed By: #### C BC #### [facility] [address] [address] [address] Benoit Diggs Basophils/100 WBC (Bld) 0.6 % Normal 0.2-2.0 [facility] Comment on above: Performed By: #### C BC #### [facility] [address] [place] [address] Dr. Benoit Diggs EO # 0.3 103/ul Normal 0.0-0.7 [facility] Comment on above: Performed By: #### C BC #### [facility] [address] [place] [address] Dr. Benoit Diggs Eosinophils/100 WBC (Bld) 4.1 % Normal 0.9-7.0 [facility] Comment on above: Performed By: #### C BC #### [facility] [address] [place] [address] Dr. Benoit Diggs Erythrocyte distribution width (RBC) [Ratio] 13.9 % Normal 11.0-15.0 [facility] Comment on above: Performed By: #### C BC #### [facility] [address] [place] [address] Dr. Benoit Diggs Hematocrit (Bld) [Volume fraction] 36.0 % Normal 36.0-48.0 [facility] Comment on above: Performed By: #### C BC #### [facility] [address] [place] [address] Dr. Benoit Diggs Hemoglobin (Bld) [Mass/Vol] 12.0 g/dL Normal 12.0-16.0 [facility] Comment on above: Performed By: #### C BC #### [facility] [address] [place] [address] Dr. Benoit Diggs IG # 0.03 10e3/ul Normal 0.00-0.03 [facility] Comment on above: Performed By: #### C BC #### [facility] [address] [place] [address] Dr. Benoit Diggs IG % 0.4 % Normal 0.0-0.5 [facility] Comment on above: Performed By: #### C BC #### [facility] [address] [place] [address] Dr. Benoit Diggs LYMPH # 2.7 103/ul Normal 1.2-3.8 [facility] Comment on above: Performed By: #### C BC #### [facility] [address] [place] [address] Dr. Beniot Diggs Lymphocytes/100 WBC (Bld) 33.2 % Normal 20.5-60.0 [facility] Comment on above: Performed By: #### C BC #### [facility] [address] [place] [address] Dr. Benoit Diggs MANUAL DIFF REQ NO Normal [facility] Comment on above: Performed By: #### C BC #### [facility] [address] [place] [address] Dr. Benoit Diggs MCH (RBC) [Entitic mass] 29.4 pg Normal 26.7-34.0 [facility] Comment on above: Performed By: #### C BC #### [facility] [address] [place] [address] Dr. Benoit Diggs MCHC (RBC) [Mass/Vol] 33.3 g/dL Normal 29.9-35.2 [facility] Comment on above: Performed By: #### C BC #### [facility] [address] [place] [address] Dr. Benoit Diggs MCV (RBC) [Entitic vol] 88.2 fL Normal 81.0-99.0 [facility] Comment on above: Performed By: #### C BC #### [facility] [address] [place] [address] Dr. Benoit Diggs MONO # 0.5 103/ul Normal 0.3-0.8 [facility] Comment on above: Performed By: #### C BC #### [facility] [address] [place] [address] Dr. Benoit Diggs Monocytes/100 WBC (Bld) 6.6 % Normal 1.7-12.0 [facility] Comment on above: Performed By: #### C BC #### [facility] [address] [address] [address] Benoit Diggs NEUT # 4.4 103/ul Normal 1.4-6.5 [facility] Comment on above: Performed By: #### C BC #### [facility] [address] [address] [address] Benoit Diggs Neutrophils/100 WBC (Bld) 55.1 % Normal 43.0-75.0 [facility] Comment on above: Performed By: #### C BC #### [facility] [address] [address] [address] Benoit Diggs Platelet mean volume (Bld) [Entitic vol] 11.0 fL Normal 9.5-13.5 [facility] Comment on above: Performed By: #### C BC #### [facility] [address] [address] [address] Benoit Diggs PLT 225 103/ul Normal 150-450 [facility] Comment on above: Performed By: #### C BC #### [facility] [address] [address] [address] Benoit Diggs RBC 4.08 106/ul Critically low 4.20-5.40 [facility] Comment on above: Performed By: #### C BC #### [facility] [address] [address] [address] Benoit Diggs WBC 8.1 103/ul Normal 4.0-11.0 [facility] Comment on above: Performed By: #### C BC #### [facility] [address] [address] [address] Benoit Diggs CULTURE URINEon 06-06-2022 CULTURE URINE Culture Observations : MODERATE GROWTH OF MIXED GENITAL RIZWAN. NO POTENTIAL PATHOGENS SEEN. Normal [facility] Comment on above: Performed By: #### U RCX ####[facility] [address] [address]Dr. Benoit Diggs GLYCOHEMOGLOBIN A1Con 2021 ADA RECOMMENDATION SEE BELOW Normal [facility] Comment on above: Result Comment: ADA RECOMMENDED LIMIT 4.0 - 6.0 ADA THERAPEUTIC TARGET < 7.0 ACTION SUGGESTED > 7.0 Performed By: #### C BC #### [facility] [address] [place] [address] Dr. Benoit Diggs Glucose [Mass/Vol] 105 mg/dL Normal [facility] Comment on above: Performed By: #### C BC #### [facility] [address] [place] [address] Dr. Benoit Diggs HbA1c (Bld) [Mass fraction] 5.3 % Normal 4.5-6.2 [facility] Comment on above: Performed By: #### C BC #### [facility] [address] [place] [address] Dr. Benoit Diggs DAVID BOX TEST PT SEND OUTo n 06-06-2022 SENT TO REF LAB 06/06/2022 Normal [facility] Comment on above: Performed By: #### H IV12 #### [facility] [address] [place] [address] Dr. Benoit Diggs TYPE AND SCREENon 06-06-2022 TYPE AND SCREEN Negative Normal [facility] Comment on above: Performed By: #### T NS #### [facility] [address] [place] [address] Dr. Benoit Diggs PREG QUANT HCGon 04-16-2022 HCG QUANT 62021 mIU/mL Normal [facility] Comment on above: Performed By: #### C BC #### [facility] [address] [place] [address] Dr. Benoit Diggs HCG RANGE SEE BELOW Normal [facility] Comment on above: Result Comment: 5-50 0-1 WEEK 40-300 1-2 WEEKS 100-1,000 2-3 WEEKS 500-6,000 3-4 WEEKS 5,000-200,000 1-2 MONTHS 10,000-100,000 2-3 MONTHS 3,000-50,000 2ND TRIMESTER 1,000-50,000 3RD TRIMESTER Performed By: #### C BC #### [facility] [address] [place] [address] Dr. Benoit Diggs Vital Signs Date Time Vital Sign Value Performing Clinician Facility 07-17-2022 02: Body weight 100.[address] DOCTOR PIERCE [facility] Comment on above: Performed By: #### H IV12 #### [facility] [address] [address] [address] Benoit Diggs Encounters Encounter Date Encounter Type Care Provider Facility Start: 04-28-2024 End: 04-28-2024 ambulatory MANUEL NOEL Not Available Start: 03-02-2024 End: 03-02-2024 ambulatory MANUEL NOEL Not Available Start: 02-28-2024 End: 02-29-2024 Emergency department patient visit NAVI MOORE [facility] Start: 02-28-2024 End: 02-28-2024 Emergency department patient visit MANUEL NOEL [facility] Start: 04-15-2023 ambulatory Armond Moran acility:[facility] Start: 12-23-2022 Encounter for genera l adult medical examination without abnormal findings DR MANUEL NOEL [facility] Start: 12-21-2022 End: 12-22-[address] MANUEL NOEL Facility:[facility] Start: 12-21-2022 End: 12-22-2022 Encounter for general adult medical examination without abnormal findings DR MANUEL NOEL Facility:[facility] Start: 12-01-2022 End: 12-04-2022 Evaluation and management of inpatient DR MANUEL NOEL Facility:[facility] Start: 11-29-2022 End: 11-30-[address] MANUEL NOEL Facility:[facility] Start: 11-19-2022 Evaluation and management of inpatient DR MALIK GABRIEL . Facility:[facility] Start: 11-18-2022 End: 11-18-[address] MANUEL NOEL Facility:[facility] Start: 09-22-2022 End: 09-23-2022 ambulatory KRISHNA LEMON Facility:[facility] Start: 09-09-2022 End: 09-10-[address] MANUEL NOLE Facility:[facility] Start: 08-07-2022 End: 08-08-[address] MANUEL NOEL Facility:[facility] Start: 08-06-2022 End: 08-06-[address] MANUEL NOEL Facility:[facility] Start: 07-25-2022 End: 07-26-[address] ZULLY MACEDO . Facility:[facility] Start: 07-13-2022 End: 07-13-[address] DESHAWN MARKS . Facility:[facility] Start: 07-11-2022 End: 07-12-[address] MANUEL NOEL Facility:[facility] Start: 06-06-2022 End: 06-07-[address] MANUEL NOEL Facility:[facility] Start: 04-16-2022 End: 04-17-[address] DOCTOR PIERCE Facility:[facility] Procedures Date Procedure Procedure Detail Performing Clinician Start: 12-03-2022 Transfusion of Nonau tologous Red Blood Cells into Peripheral Vein, Percutaneous Approach DR DOCTOR PIERCE Start: 12-02-2022 Delivery of Products of Conception, External Approach DR DOCTOR PIERCE Start: 12-02-2022 Drainage of Amniotic Fluid, Therapeutic from Products of Conception, Via Natural or Artificial Opening DR DOCTOR PIERCE Payers Date Payer Category Payer Unknown [id number] 2.16.84 [id number] 2000 Unknown [id number] 2.16.84 [id number] 2000 Unknown [id number] 2.16.84 0.1.328617.3.579.2.593 2000 Unknown [id number] 2.16.84 0.1.970413.3.579.2.593 2000 Unknown [id number] 2.16.84 0.1.860335.3.579.2.593 2000 Unknown [id number] 2.16.84 0.1.895908.3.579.2.593 2000 Unknown [id number] 2.16.84 0.1.593520.3.579.2.593 2000 Unknown [id number] 2.16.84 0.1.536666.3.579.2.593 2000 Unknown [id number] 2.16.84 0.1.068309.3.579.2.593 2000 Unknown [id number] 2.16.84 0.1.561231.3.579.2.593 2000 Unknown [id number] 2.16.84 0.1.578747.3.579.2.593 2000 Unknown [id number] 2.16.84 0.1.093599.3.579.2.593 2000 Unknown [id number] 2.16.84 0.1.798781.3.579.2.593 2000 Unknown [id number] 2.16.84 0.1.301804.3.579.2.593 2000 Unknown [id number] 2.16.8 40.1.965721.3.579.2.1286 2000 Unknown [id number] 2.16.8 40.1.241443.3.579.2.1286 2000 Unknown [id number] 2.16.84 0.1.288985.3.579.2.1259 2000 Unknown [id number] 2.16.84 0.1.339433.3.579.2.1259 1959 Self-pay 1959 Unknown [id number] Unknown [id number] 2.16.84 0.1.817549.3.579.2.593 Unknown [id number] 2.16.8 40.1.358589.3.579.2.531 Summary Purpose Family History No Family History Records FoundNo Family History Records FoundNo Family History Records FoundNo Family History Records Found Advance Directives No Advanced Directives Records FoundNo Advanced Directives Records FoundNo Advanced Directives Records FoundNo Advanced Directives Records Found Additional Source Comments INFORMATION SOURCE (unrecogn ized section and content) DATE CREATED AUTHOR [facility]2022 [facility] DATE CREATED AUTHOR AUTHOR'S ORGANIZ ATION 03/01/2024 [facility] DATE CREATED AUTHOR AUTHOR'S ORGANIZ ATION 05/04/2024 [facility] DATE CREATED AUTHOR AUTHOR'S ORGANIZ ATION 05/07/2024 [facility] FOR RECORDS PERTAINING TO PATIENTS WHO ARE OR HAVE BEEN ENROLLED IN A CHEMICAL DEPENDENCY/SUBSTANCEABUSE PROGRAM, SOME INFORMATION MAY BE OMITTED. This clinical summary was aggregated from multiple sources. Caution should be exercised in using it in the provision of clinical care. This summary normalizes information from multiple sources, and as a consequence, information in this document may materially change the coding, format and clinical context of patient data. In addition, data may be omitted in some cases. CLINICAL DECISIONS SHOULD BE BASED ON THE PRIMARY CLINICAL RECORDS. [facility] [employer] [facility] provides no warranty or guarantee of the accuracy or completeness of information in this document.
== END 2024-06-01 14:12 | disposition home or self-care (01) ==
LOC: RAD 14:12
PROVIDERS: PCP Family Medicine; Visit Provider Family Medicine
DX: M54.31 Sciatica, right side (principal)
CPT/HCPCS: 72100

== ENCOUNTER 2024-06-09 19:09 | Emergency (ER) | payer OTHER, SELFPAY ==
[2024-06-09] VITALS (19 sets, daily range): BP systolic 103–125; BP diastolic 79–98; PULSE 67–93; TEMP 36.9; O2SAT 97–99; BMI 52.7
--- OUTSIDE RECORDS SUMMARY | 2024-06-09 19:16 | XMS_ITS | CCD ---
Author Organization [facility] Care Team Providers Care Aerial Advertiser Name Role Phone MISC, DR WILLS Attending [...] KRISHNA Attending Unavailable ION, KRISHNA Admitting Unavailable ION, [...] Attending Unavailable MOORE, NAVI N Referring Unavailable BERT, MANUEL Primary Care Unavailable Armond Nowak Attending Unavailab le Armond Nowak Admitting Unavailab le Naderesera, Manuel Primary Care Unavailable NADERER, MANUEL Attending Unavailable NADERER, MANUEL Attending Unavailable NADERER, MANUEL Attending Unavailable Allergies Allergy Classification Reported Allergen(s) Allergy Type Date of Onset Reaction(s) Facility (2 sources) Penicillins; Translations: [PENICILLINS] Drug allergy (disorder) 01-21-2019 [facility] Repository (1 source) Penicillins Drug allergy (disorder) 11-20-2017 [facility] Repository Problems Active Problems Problem Classification [...] 02-28-20 ABSOLUTE BASOPHIL 0.1 X10E9/L Normal 0.0-0.2 [facility] Comment on above: Performed By: #### C DONG, 3039-3, , CBCA #### [facility] ([id number]) [address] [place] [address], [place] [address] ABSOLUTE NEUTROPHIL 8.4 X10E9/L High 1.5-6.6 [facility] Comment on above: Performed By: #### C DONG, 0-3, , CBCA #### [facility] ([id number]) [address] [place] [address] 87648 Basophils/100 WBC (Bld) 0.9 % Normal [facility] Comment on above: Performed By: #### C DONG, 3039-12, , CBCA #### [facility] ([id number]) [address] [place] [address] 95972 Eosinophils (Bld) [#/Vol] 0.2 10*3/uL Normal 0.0-0.4 [facility] Comment on above: Performed By: #### C DONG, 3039-12, , CBCA #### [facility] ([id number]) [address] [place] [address] 80548 Eosinophils/100 WBC (Bld) 2.1 % Normal [facility] Comment on above: Performed By: #### C DONG, 3039-12, , CBCA #### [facility] ([id number]) [address] [place] [address] 94088 Erythrocyte distribution width (RBC) [Ratio] 14.8 % Normal 11.5-15.0 [facility] Comment on above: Performed By: #### C DONG, 3039-12, , CBCA #### [facility] ([id number]) [address] [place] [address] 68227 Hematocrit (Bld) [Volume fraction] 38.8 % Normal 35-47 [facility] Comment on above: Performed By: #### C DONG, 3039-12, , CBCA #### [facility] ([id number]) [address] [place] [address] 72151 Hemoglobin (Bld) [Mass/Vol] 12.7 g/dL Normal 11.7-15.5 [facility] Comment on above: Performed By: #### C DONG, 3039-12, , CBCA #### [facility] ([id number]) [address] [place] [address] 35835 Lymphocytes (Bld) [#/Vol] 2.0 10*3/uL Normal 1.0-3.5 [facility] Comment on above: Performed By: #### C DONG, 3039-12, , CBCA #### [facility] ([id number]) [address] [place] [address] 36971 Lymphocytes/100 WBC (Bld) 17.0 % Normal [facility] Comment on above: Performed By: #### C DONG, 3039-12, , CBCA #### [facility] ([id number]) [address] [place] [address] 36375 MCH (RBC) [Entitic mass] 27.8 pg Normal 27-34 [facility] Comment on above: Performed By: #### C DONG, 3039-12, , CBCA #### [facility] ([id number]) [address] [place] [address] 73888 MCHC (RBC) [Mass/Vol] 32.8 g/dL Normal 32-36 [facility] Comment on above: Performed By: #### C DONG, 3039-12, , CBCA #### [facility] ([id number]) [address] [place] [address] 24140 MCV (RBC) [Entitic vol] 85 fL Normal 80-100 [facility] Comment on above: Performed By: #### Ginger UMANA, 3039-12, , CBCA #### [facility] ([id number]) [address] [place] [address] 94146 Monocytes (Bld) [#/Vol] 0.7 10*3/uL Normal 0-0.9 [facility] Comment on above: Performed By: #### C MP, 3039-12, , CBCA #### [facility] ([id number]) [address] [place] [address] 47678 Monocytes/100 WBC (Bld) 6.4 % Normal [facility] Comment on above: Performed By: #### C DONG, 3039-12, , CBCA #### [facility] ([id number]) [address] [place] [address] 01177 Neutrophils/100 WBC (Bld) 73.6 % Normal [facility] Comment on above: Performed By: #### C DONG, 3039-12, , CBCA #### [facility] ([id number]) [address] [place] [address] 46646 Platelet mean volume (Bld) [Entitic vol] 8.3 fL Normal 7-12 [facility] Comment on above: Performed By: #### C DOGN, 3039-12, , CBCA #### [facility] ([id number]) [address] [place] [address] 74243 Platelets (Bld) [#/Vol] 297 10*3/uL Normal 150-450 [facility] Comment on above: Performed By: #### C DONG, 3039-12, , CBCA #### [facility] ([id number]) [address] [place] [address] 58554 RBC COUNT 4.58 X10E12/L Normal 3.80-5.20 [facility] Comment on above: Performed By: #### C MP, 3039-12, , CBCA #### [facility] ([id number]) [address] [place] [address] 66601 WBC (Bld) [#/Vol] 11.4 10*3/uL High 4.0-11.0 [facility] Comment on above: Performed By: #### C DONG, 3039-12, , CBCA #### [facility] ([id number]) [address] [place] [address] 51317 COMPREHENSIVE METABOLIC PANE Carlin 02-28-2024 Albumin [Mass/Vol] 4.0 g/dL Normal 3.2-5.3 [facility] Comment on above: Performed By: #### C DONG, 3039-12, , CBCA #### [facility] ([id number]) [address] [place] [address] 63837 ALP [Catalytic activity/Vol] 87 U/L Normal 39-130 [facility] Comment on above: Performed By: #### C DONG, 3039-12, , CBCA #### [facility] ([id number]) [address] [place] [address] 50626 ALT [Catalytic activity/Vol] 20 U/L Normal 0-31 [facility] Comment on above: Performed By: #### C DONG, 3039-12, , CBCA #### [facility] ([id number]) [address] [place] [address] 63927 Anion gap [Moles/Vol] 11 mmol/L Normal 5-15 [facility] Comment on above: Performed By: #### C DONG, 3039-12, , CBCA #### [facility] ([id number]) [address] [place] [address] 56464 AST [Catalytic activity/Vol] 27 U/L Normal 0-41 [facility] Comment on above: Performed By: #### C DONG, 3039-12, , CBCA #### [facility] ([id number]) [address] [place] [address] 94353 Bilirubin [Mass/Vol] 0.8 mg/dL Normal 0.3-1.2 [facility] Comment on above: Result Comment: RESU LTS QUESTIONABLE DUE TO HEMOLYSIS Performed By: #### C DONG, 3039-12, , CBCA #### [facility] ([id number]) [address] [place] [address] 57275 Calcium [Mass/Vol] 8.5 mg/dL Normal 8.5-10.5 [facility] Comment on above: Performed By: #### C DONG, 3039-12, , CBCA #### [facility] ([id number]) [address] [place] [address] 87484 Chloride [Moles/Vol] 106 mmol/L Normal 98-109 [facility] Comment on above: Performed By: #### C DONG, 3039-12, , CBCA #### [facility] ([id number]) [address] [place] [address] 90101 CO2 [Moles/Vol] 18 mmol/L Low 22-32 [facility] Comment on above: Performed By: #### C DONG, 3039-12, , CBCA #### [facility] ([id number]) [address] [place] [address] 46824 Creatinine [Mass/Vol] 0.60 mg/dL Normal 0.40-1.00 [facility] Comment on above: Result Comment: METH OD TRACEABLE TO IDMS STANDARD Performed By: #### C DONG, 3039-12, , CBCA #### [facility] ([id number]) [address] [place] [address] 74668 eGFR (CKD-EPI) NON-RACE DEPENDENT >90 Normal >59 [facility] Comment on above: Result Comment: Reported eGFR is based on the CKD-EPI 2020 equation that does not use a race coefficient. Performed By: #### C DONG, 3039-12, , CBCA #### [facility] ([id number]) [address] [place] [address] 85071 Glucose [Mass/Vol] 84 mg/dL Normal 65-99 [facility] Comment on above: Performed By: #### C DONG, 3, , CBCA #### [facility] ([id number]) [address] [place] [address] 98042 Potassium [Moles/Vol] 4.5 mmol/L Normal 3.5-5.0 [facility] Comment on above: Result Comment: SPEC IMEN HEMOLYZED, RESULTS INCREASED Performed By: #### C DONG, 3039-12, , CBCA #### [facility] ([id number]) [address] [place] [address] 21681 Protein [Mass/Vol] 7.8 g/dL Normal 6.0-8.0 [facility] Comment on above: Performed By: #### C DONG, 3039-12, , CBCA #### [facility] ([id number]) [address] [place] [address] 70304 Sodium [Moles/Vol] 135 mmol/L Normal 134-146 [facility] Comment on above: Performed By: #### C DONG, 3039-12, , CBCA #### [facility] ([id number]) [address] [place] [address] 03208 Urea nitrogen [Mass/Vol] 12 mg/dL Normal 5-23 [facility] Comment on above: Performed By: #### C DONG, 3039-12, , CBCA #### [facility] ([id number]) [address] [place] [address] ABDOMEN AND PELVIS W CONT on [...] Crawford MD on 02/28/2024 3:45 AM Normal [facility] HCG ( test) Ql (U)o n 02-28-2024 Beta HCG ( test) Ql (U) Negative Normal NEG [facility] Comment on above: Performed By: #### 2 106-3 #### [facility] ([id number]) [address] [place] [address] 56540 LIPASEon 02-28-2024 Lipase [Catalytic activity/Vol] 28 U/L Normal 17-40 [facility] Comment on above: Performed By: #### C DONG, 3040-3, , CBCA #### [facility] ([id number]) [address] [place] [address] 77816 MAGNESIUMon 02-28-2024 Magnesium [Mass/Vol] 2.1 mg/dL Normal 1.8-2.6 [facility] Comment on above: Performed By: #### C DONG, 3040-3, , CBCA #### [facility] ([id number]) [address] [place] [address] 23067 URN MACROSCOPIC NURon 2023 BILIRUBIN MOLLY Negative Normal NEG [facility] Comment on above: Performed By: #### N UM #### [facility] ([id number]) [address] [place] [address] [place] [address] BLOOD/HGB MOLLY Trace Abnormal NEG [facility] Comment on above: Performed By: #### N UM #### [facility] ([id number]) [address] [place] [address] [place] [address] GLUCOSE MOLLY Negative Normal NEG [facility] Comment on above: Performed By: #### N UM #### [facility] ([id number]) [address] [place] [address] [place] [address] KETONES MOLLY Negative Normal NEG [facility] Comment on above: Performed By: #### N UM #### [facility] ([id number]) [address] [place] [address] [place] [address] LEUKOCYTE ESTERASE MOLLY Negative Normal NEG [facility] Comment on above: Performed By: #### N UM #### [facility] ([id number]) [address] [place] [address] [place] [address] NITRITE MOLLY Negative Normal NEG [facility] Comment on above: Performed By: #### N UM #### [facility] ([id number]) [address] [place] [address] [place] [address] PH MOLLY 5.5 Normal 5.0-8.5 [facility] Comment on above: Performed By: #### N UM #### [facility] ([id number]) [address] [place] [address] [place] [address] PROTEIN MOLLY >=300 Abnormal NEG [facility] Comment on above: Performed By: #### N UM #### [facility] ([id number]) [address] [place] [address] [place] [address] SPECIFIC GRAVITY MOLLY >=1.030 Normal 1.003-1.035 [facility] Comment on above: Performed By: #### N UM #### [facility] ([id number]) [address] [facility], [place] [address] UROBILINOGEN MOLLY 0.2 eu/dL Normal <1.1 [facility] Comment on above: Performed By: #### N UM #### [facility] ([id number]) [address] [facility], [place] [address] PRBC LEUKOREDUCEDon 12-25-19 23 ABO and Rh group Nom (Bld) Cross Match Result Compatible Unit Blood Type O Pos Unit Number [id number] Status Information Transfused Product ID Red Blood Cells Product Code [id number] Cross Match Result Compatible Unit Blood Type O Pos Unit Number [id number] Status Information Transfused Product ID Red Blood Cells Product Code [id number] Normal [facility] Comment on above: Performed By: #### P RBC ####[facility] [address] [place], [place] [address]Dr. Benoit Diggs CBC AUTO DIFFon 12-21-2022 BASO # 0.1 103/ul Normal 0.0-0.1 [facility] Comment on above: Performed By: #### C BC ####[facility] [address] [place], [place] [address]Dr. Benoit Diggs Basophils/100 WBC (Bld) 1.2 % Normal 0.2-2.0 [facility] Comment on above: Performed By: #### C BC ####[facility] [address] [place], [place] [address]Dr. Benoit Diggs EO # 0.4 103/ul Normal 0.0-0.7 [facility] Comment on above: Performed By: #### C BC ####[facility] [address] [place], [place] [address]Dr. Benoit Diggs Eosinophils/100 WBC (Bld) 4.5 % Normal 0.9-7.0 [facility] Comment on above: Performed By: #### C BC ####[facility] [address] [place], [place] [address]Dr. Benoit Diggs Erythrocyte distribution width (RBC) [Ratio] 16.6 % Critically high 11.0-15.0 [facility] Comment on above: Performed By: #### C BC ####[facility] [address] [place] [address]DrJael Diggs Hematocrit (Bld) [Volume fraction] 40.3 % Normal 36.0-48.0 [facility] Comment on above: Performed By: #### C BC ####[facility] [address] [place] [address]DrJael Diggs Hemoglobin (Bld) [Mass/Vol] 12.6 g/dL Normal 12.0-16.0 [facility] Comment on above: Performed By: #### C BC ####[facility] [address] [place], [place] [address]DrJael Diggs IG # 0.04 10e3/ul Critically high 0.00-0.03 [facility] Comment on above: Performed By: #### C BC ####[facility] [address] [place], [place] [address]DrJael Diggs IG % 0.5 % Normal 0.0-0.5 [facility] Comment on above: Performed By: #### C BC ####[facility] [address] [place], [place] [address]DrJael Diggs LYMPH # 3.0 103/ul Normal 1.2-3.8 [facility] Comment on above: Performed By: #### C BC ####[facility] [address] [place], [place] [address]DrJael Diggs Lymphocytes/100 WBC (Bld) 36.0 % Normal 20.5-60.0 [facility] Comment on above: Performed By: #### C BC ####[facility] [address] [place], [place] [address]DrJael Diggs MANUAL DIFF REQ NO Normal [facility] Comment on above: Performed By: #### C BC ####[facility] [address] [place] [address]DrJael Diggs MCH (RBC) [Entitic mass] 25.3 pg Critically low 26.7-34.0 [facility] Comment on above: Performed By: #### C BC ####[facility] [address] [place] [address]DrJael Diggs MCHC (RBC) [Mass/Vol] 31.3 g/dL Normal 29.9-35.2 [facility] Comment on above: Performed By: #### C BC ####[facility] [address] [place], [place] [address]DrJael Diggs MCV (RBC) [Entitic vol] 80.9 fL Critically low 81.0-99.0 [facility] Comment on above: Performed By: #### C BC ####[facility] [address] [place], [place] [address]DrJael Diggs MONO # 0.4 103/ul Normal 0.3-0.8 [facility] Comment on above: Performed By: #### C BC ####[facility] Y[address] [place], [place] [address]DrJael Diggs Monocytes/100 WBC (Bld) 4.8 % Normal 1.7-12.0 [facility] Comment on above: Performed By: #### C BC ####[facility] [address] [place], [place] [address]DrJael Diggs NEUT # 4.4 103/ul Normal 1.4-6.5 [facility] Comment on above: Performed By: #### C BC ####[facility] Z[address] [place], [place] [address]DrJael Diggs Neutrophils/100 WBC (Bld) 53.0 % Normal 43.0-75.0 [facility] Comment on above: Performed By: #### C BC ####[facility] [address] [place], [place] [address]DraJel Diggs Platelet mean volume (Bld) [Entitic vol] 10.8 fL Normal 9.5-13.5 [facility] Comment on above: Performed By: #### C BC ####[facility] [address] [place], [place] [address]DrJael Diggs PLT 410 103/ul Normal 150-450 [facility] Comment on above: Performed By: #### C BC ####[facility] [address] [place] [id number]. Benoit Diggs RBC 4.98 106/ul Normal 4.20-5.40 [facility] Comment on above: Performed By: #### C BC ####[facility] [address] [place] [id number]. Benoit Diggs WBC 8.3 103/ul Normal 4.0-11.0 [facility] Comment on above: Performed By: #### C BC ####[facility] [address] [place] [id number]. Benoit Diggs GLYCOHEMOGLOBIN A1Con 2022 ADA RECOMMENDATION SEE BELOW Normal [facility] Comment on above: Result Comment: ADA RECOMMENDED LIMIT 4.0 - 6.0 ADA THERAPEUTIC TARGET < 7.0 ACTION SUGGESTED > 7.0 Performed By: #### A 1C ####[facility] [address] [place] [address]Dr. Benoit Diggs Glucose [Mass/Vol] 100 mg/dL Normal [facility] Comment on above: Performed By: #### A 1C ####[facility] [address] [place] [address]Dr. Benoit Diggs HbA1c (Bld) [Mass fraction] 5.1 % Normal 4.5-6.2 [facility] Comment on above: Performed By: #### A 1C ####[facility] [address] [place] [id number]. Benoit Diggs LIPID PROFILEon 12-21-2022 CHOL-HDL RATIO NORM SEE BELOW Normal [facility] Comment on above: Result Comment: 3.3 - 4.4 LOW RISK 4.4 - 7.1 AVERAGE RISK 7.1 - 11.0 MODERATE RISK >11.0 HIGH RISK Performed By: #### L IVER, LIPID, BMP, TSH ####[facility] [address] [place] [id number]. Benoit Diggs Cholesterol [Mass/Vol] 184 mg/dL Normal <=200 [facility] Comment on above: Performed By: #### L IVER, LIPID, BMP, TSH ####[facility] [address] [place] [address]Dr. Benoit Dontae Cholesterol in HDL [Mass/Vol] 52 mg/dL Normal 40-60 [facility] Comment on above: Performed By: #### L IVER, LIPID, BMP, TSH ####[facility] [address] [place] [address]Dr. Karyaurora Dontae Cholesterol in LDL [Mass/Vol] 114.8 mg/dL Normal [facility] Comment on above: Performed By: #### L IVER, LIPID, BMP, TSH ####[facility] [address] [place] [address]Dr. Benoit Diggs Cholesterol.total/Ch olesterol in HDL [Mass ratio] 3.5 {ratio} Normal [facility] Comment on above: Performed By: #### L IVER, LIPID, BMP, TSH ####[facility] [address] [place] [address]Dr. Benoit Diggs HDL NORMAL > or = 60 mg/dl - LO W CARDIOVASCULAR RISK <40 mg/dl - HIGH CARDIOVASCULAR RISK Normal [facility] Comment on above: Performed By: #### L IVER, LIPID, BMP, TSH ####[facility] [address] [place] [address]Dr. Benoit Diggs LDL CALC NORMAL SEE BELOW Normal [facility] Comment on above: Result Comment: <100 mg/dl OPTIMAL 100 - 129 mg/dl NEAR OR ABOVE OPTIMAL 130 - 159 mg/dl BORDERLINE HIGH 160 - 189 mg/dl HIGH >190 mg/dl VERY HIGH Performed By: #### L IVER, LIPID, BMP, TSH ####[facility] [address] [place] [address]Dr. Benoit Diggs Triglyceride [Mass/Vol] 86 mg/dL Normal <=150 [facility] Comment on above: Performed By: #### L IVER, LIPID, BMP, TSH ####[facility] [address] [place] [address]Dr. Benoit Diggs VLDL CALC 17.2 mg/dL Normal [facility] Comment on above: Performed By: #### L IVER, LIPID, BMP, TSH ####[facility] [address] [place] [address]Dr. Benoit Diggs LIVER PROFILEon 12-21-2022 Albumin [Mass/Vol] 3.3 g/dL Critically low 3.4-5.0 Th e [facility] Comment on above: Performed By: #### L IVER, LIPID, BMP, TSH ####[facility] [address] [place] [address]Dr. Benoit Diggs Albumin/Globulin [Mass ratio] 0.8 {ratio} Normal [facility] Comment on above: Performed By: #### L IVER, LIPID, BMP, TSH ####[facility] [address] [place] [address]Dr. Karyaurora Diggs ALP [Catalytic activity/Vol] 110 U/L Normal 46-116 [facility] Comment on above: Performed By: #### L IVER, LIPID, BMP, TSH ####[facility] [address] [place], [place] [address]Dr. Karyaurora Diggs ALT [Catalytic activity/Vol] 25 U/L Normal 14-59 [facility] Comment on above: Performed By: #### L IVER, LIPID, BMP, TSH ####[facility] [id number] [address]Dr. Karyaurora Diggs AST [Catalytic activity/Vol] 20 U/L Normal 15-37 [facility] Comment on above: Performed By: #### L IVER, LIPID, BMP, TSH ####[facility] [id number] [address]Dr. Benoit Diggs BILI, CONJUGATED 0.1 mg/dL Normal 0.0-0.2 [facility] Comment on above: Performed By: #### L IVER, LIPID, BMP, TSH ####[facility] [address] [address]Dr. Benoit Diggs Bilirubin [Mass/Vol] 0.4 mg/dL Normal 0.2-1.0 [facility] Comment on above: Performed By: #### L IVER, LIPID, BMP, TSH ####[facility] [address] [id number]. Benoit Diggs Globulin (S) [Mass/Vol] 3.9 g/dL Normal [facility] Comment on above: Performed By: #### L IVER, LIPID, BMP, TSH ####[facility] [address] [id number]. Benoit Diggs Protein [Mass/Vol] 7.2 g/dL Normal 6.4-8.2 [facility] Comment on above: Performed By: #### L IVER, LIPID, BMP, TSH ####[facility] [address] [address]Dr. Benoit Diggs PROF CHEM 8 (BAS METB)on Anion gap [Moles/Vol] 13.2 mmol/L Normal [facility] Comment on above: Performed By: #### C BC #### [facility] [address] [address] [address] Benoit Diggs Calcium [Mass/Vol] 9.2 mg/dL Normal 8.5-10.1 [facility] Comment on above: Performed By: #### C BC #### [facility] [address] [address] [address] Benoit Diggs Chloride [Moles/Vol] 108 mmol/L Critically high 98-107 [facility] Comment on above: Performed By: #### C BC #### [facility] [address] [address] [address] Benoit Diggs CO2 [Moles/Vol] 27.9 mmol/L Normal 21.0-32.0 [facility] Comment on above: Performed By: #### C BC #### [facility] [address] [address] [address] Benoit Diggs Creatinine [Mass/Vol] 0.62 mg/dL Normal 0.55-1.02 [facility] Comment on above: Performed By: #### C BC #### [facility] [address] [address] [address] Benoit Diggs EGFR-AF KOSOVAN >60 Normal >=60 [facility] Comment on above: Performed By: #### C BC #### [facility] [address] [place] [address] Dr. Benoit Diggs EGFR-NON AF KOSOVAN >60 Normal >=60 [facility] Comment on above: Performed By: #### C BC #### [facility] [address] [address] [address] Benoit Diggs Glucose [Mass/Vol] 92 mg/dL Normal 74-106 [facility] Comment on above: Performed By: #### C BC #### [facility] [address] [address] [address] Benoit Diggs Potassium [Moles/Vol] 4.1 mmol/L Normal 3.5-5.1 [facility] Comment on above: Performed By: #### C BC #### [facility] [address] [place] [address] Dr. Benoit Diggs Sodium [Moles/Vol] 145 mmol/L Normal 136-145 [facility] Comment on above: Performed By: #### C BC #### [facility] [address] [place] [address] Dr. Benoit Diggs Urea nitrogen [Mass/Vol] 8.0 mg/dL Normal 7.0-18.0 [facility] Comment on above: Performed By: #### C BC #### [facility] [address] [place] [address] Dr. Benoit Diggs Urea nitrogen/Creatinine [Mass ratio] 12.9 mg/mg Normal [facility] Comment on above: Performed By: #### C BC #### [facility] [address] [place] [address] Dr. Benoit Diggs TSHon 12-21-2022 TSH 1.318 uIU/mL Normal 0.358-3.740 [facility] Comment on above: Performed By: #### C BC #### [facility] [address] [place] [address] Dr. Benoit Diggs CBC AUTO DIFFon 12-04-2022 BASO # 0.1 103/ul Normal 0.0-0.1 [facility] Comment on above: Performed By: #### C BC #### [facility] [address] [place] [address] Dr. Benoit Diggs Basophils/100 WBC (Bld) 0.7 % Normal 0.2-2.0 [facility] Comment on above: Performed By: #### C BC #### [facility] [address] [place] [address] Dr. Benoit Diggs EO # 0.4 103/ul Normal 0.0-0.7 [facility] Comment on above: Performed By: #### C BC #### [facility] [address] [place] [address] Dr. Benoit Diggs Eosinophils/100 WBC (Bld) 3.8 % Normal 0.9-7.0 [facility] Comment on above: Performed By: #### C BC #### [facility] [address] [place] [address] Dr. Benoit Diggs Erythrocyte distribution width (RBC) [Ratio] 15.2 % Critically high 11.0-15.0 [facility] Comment on above: Performed By: #### C BC #### [facility] [address] [place] [address] Dr. Benoit Diggs Hematocrit (Bld) [Volume fraction] 28.7 % Critically low 36.0-48.0 [facility] Comment on above: Performed By: #### C BC #### [facility] [address] [place] [address] Dr. Benoit Diggs Hemoglobin (Bld) [Mass/Vol] 9.1 g/dL Critically low 12.0-16.0 [facility] Comment on above: Performed By: #### C BC #### [facility] [address] [place] [address] Dr. Benoit Diggs IG # 0.05 10e3/ul Critically high 0.00-0.03 [facility] Comment on above: Performed By: #### C BC #### [facility] [address] [place] [address] Dr. Benoit Diggs IG % 0.5 % Normal 0.0-0.5 [facility] Comment on above: Performed By: #### C BC #### [facility] [address] [place] [address] Dr. Benoit Diggs LYMPH # 3.3 103/ul Normal 1.2-3.8 [facility] Comment on above: Performed By: #### C BC #### [facility] [address] [place] [address] Dr. Benoit Diggs Lymphocytes/100 WBC (Bld) 31.8 % Normal 20.5-60.0 [facility] Comment on above: Performed By: #### C BC #### [facility] [address] [place] [address] Dr. Benoit Diggs MANUAL DIFF REQ NO Normal [facility] Comment on above: Performed By: #### C BC #### [facility] [address] [place] [address] Dr. Benoit Diggs MCH (RBC) [Entitic mass] 25.3 pg Critically low 26.7-34.0 [facility] Comment on above: Performed By: #### C BC #### [facility] [address] [place] [address] Dr. Benoit Diggs MCHC (RBC) [Mass/Vol] 31.7 g/dL Normal 29.9-35.2 [facility] Comment on above: Performed By: #### C BC #### [facility] [address] [place] [address] Dr. Benoit Diggs MCV (RBC) [Entitic vol] 79.9 fL Critically low 81.0-99.0 [facility] Comment on above: Performed By: #### C BC #### [facility] [address] [place] [address] Dr. Benoit Diggs MONO # 0.7 103/ul Normal 0.3-0.8 [facility] Comment on above: Performed By: #### C BC #### [facility] [address] [place] [address] Dr. Benoit Diggs Monocytes/100 WBC (Bld) 7.2 % Normal 1.7-12.0 [facility] Comment on above: Performed By: #### C BC #### [facility] [address] [address] [address] Benoit Diggs NEUT # 5.8 103/ul Normal 1.4-6.5 [facility] Comment on above: Performed By: #### C BC #### [facility] [address] [address] [address] Benoit Diggs Neutrophils/100 WBC (Bld) 56.0 % Normal 43.0-75.0 [facility] Comment on above: Performed By: #### C BC #### [facility] [address] [place] [address] Dr. Benoit Diggs Platelet mean volume (Bld) [Entitic vol] 10.5 fL Normal 9.5-13.5 [facility] Comment on above: Performed By: #### C BC #### [facility] [address] [place] [address] Dr. Benoit Diggs PLT 152 103/ul Normal 150-450 [facility] Comment on above: Performed By: #### C BC #### [facility] [address] [place] [address] Dr. Benoit Diggs RBC 3.59 106/ul Critically low 4.20-5.40 [facility] Comment on above: Performed By: #### C BC #### [facility] [address] [place] [address] Dr. Benoit Diggs WBC 10.3 103/ul Normal 4.0-11.0 [facility] Comment on above: Performed By: #### C BC #### [facility] [address] [place] [address] Dr. Benoit Diggs CBC AUTO DIFFon 12-03-2022 BASO # 0.0 103/ul Normal 0.0-0.1 [facility] Comment on above: Performed By: #### C BC #### [facility] [address] [place] [address] Dr. Benoit Diggs Basophils/100 WBC (Bld) 0.4 % Normal 0.2-2.0 [facility] Comment on above: Performed By: #### C BC #### [facility] [address] [place] [address] Dr. Benoit Diggs EO # 0.3 103/ul Normal 0.0-0.7 [facility] Comment on above: Performed By: #### C BC #### [facility] [address] [place] [address] Dr. Benoit Diggs Eosinophils/100 WBC (Bld) 3.1 % Normal 0.9-7.0 [facility] Comment on above: Performed By: #### C BC #### [facility] [address] [place] [address] Dr. Benoit Diggs Erythrocyte distribution width (RBC) [Ratio] 15.5 % Critically high 11.0-15.0 [facility] Comment on above: Performed By: #### C BC #### [facility] [address] [place] [address] Dr. Benoit Diggs Hematocrit (Bld) [Volume fraction] 22.0 % Critically low 36.0-48.0 [facility] Comment on above: Performed By: #### C BC #### [facility] [address] [place] [address] Dr. Benoit Diggs Hemoglobin (Bld) [Mass/Vol] 6.8 g/dL Critically low 12.0-16.0 [facility] Comment on above: Performed By: #### C BC #### [facility] [address] [place] [address] Dr. Benoit Diggs IG # 0.05 10e3/ul Critically high 0.00-0.03 [facility] Comment on above: Performed By: #### C BC #### [facility] [address] [place] [address] Dr. Benoit Diggs IG % 0.5 % Normal 0.0-0.5 [facility] Comment on above: Performed By: #### C BC #### [facility] [address] [place] [address] Dr. Benoit Diggs LYMPH # 2.9 103/ul Normal 1.2-3.8 [facility] Comment on above: Performed By: #### C BC #### [facility] [address] [place] [address] Dr. Benoit Diggs Lymphocytes/100 WBC (Bld) 31.0 % Normal 20.5-60.0 [facility] Comment on above: Performed By: #### C BC #### [facility] [address] [place] [address] Dr. Benoit Diggs MANUAL DIFF REQ NO Normal [facility] Comment on above: Performed By: #### C BC #### [facility] [address] [place] [address] Dr. Benoit Diggs MCH (RBC) [Entitic mass] 24.6 pg Critically low 26.7-34.0 [facility] Comment on above: Performed By: #### C BC #### [facility] [address] [place] [address] Dr. Benoit Diggs MCHC (RBC) [Mass/Vol] 30.9 g/dL Normal 29.9-35.2 [facility] Comment on above: Performed By: #### C BC #### [facility] [address] [place] [address] Dr. Benoit Diggs MCV (RBC) [Entitic vol] 79.7 fL Critically low 81.0-99.0 [facility] Comment on above: Performed By: #### C BC #### [facility] [address] [place] [address] Dr. Benoit Diggs MONO # 0.8 103/ul Normal 0.3-0.8 [facility] Comment on above: Performed By: #### C BC #### [facility] [address] [place] [address] Dr. Benoit Diggs Monocytes/100 WBC (Bld) 7.9 % Normal 1.7-12.0 [facility] Comment on above: Performed By: #### C BC #### [facility] [address] [place] [address] Dr. Benoit Diggs NEUT # 5.4 103/ul Normal 1.4-6.5 [facility] Comment on above: Performed By: #### C BC #### [facility] [address] [address] [address] Benoit Diggs Neutrophils/100 WBC (Bld) 57.1 % Normal 43.0-75.0 [facility] Comment on above: Performed By: #### C BC #### [facility] [address] [address] [address] Benoit Diggs Platelet mean volume (Bld) [Entitic vol] 11.9 fL Normal 9.5-13.5 [facility] Comment on above: Performed By: #### C BC #### [facility] [address] [address] [address] Benoit Diggs PLT 180 103/ul Normal 150-450 [facility] Comment on above: Performed By: #### C BC #### [facility] [address] [address] [address] Benoit Diggs RBC 2.76 106/ul Critically low 4.20-5.40 [facility] Comment on above: Performed By: #### C BC #### [facility] [address] [address] [address] Benoit Diggs WBC 9.5 103/ul Normal 4.0-11.0 [facility] Comment on above: Performed By: #### C BC #### [facility] [address] [place] [address] Dr. Benoit Diggs AMNISUREon 12-01-2022 AMNISURE Negative Normal NEGATIVE [facility] Comment on above: Performed By: #### C BC #### [facility] [address] [address] [address] Benoit Diggs CBC AUTO DIFFon 12-01-2022 BASO # 0.1 103/ul Normal 0.0-0.1 [facility] Comment on above: Performed By: #### C BC ####[facility] [address] [address]Dr. Benoit Dgigs Basophils/100 WBC (Bld) 0.6 % Normal 0.2-2.0 [facility] Comment on above: Performed By: #### C BC ####[facility] [address] [id number]. Benoit Diggs EO # 0.4 103/ul Normal 0.0-0.7 [facility] Comment on above: Performed By: #### C BC ####[facility] [address] [address]Dr. Benoit Diggs Eosinophils/100 WBC (Bld) 3.5 % Normal 0.9-7.0 [facility] Comment on above: Performed By: #### C BC ####[facility] [address] [address]Dr. Benoit Diggs Erythrocyte distribution width (RBC) [Ratio] 15.4 % Critically high 11.0-15.0 [facility] Comment on above: Performed By: #### C BC ####[facility] [address] [place], [place] [address]Dr. Karyaurora Diggs Hematocrit (Bld) [Volume fraction] 26.4 % Critically low 36.0-48.0 [facility] Comment on above: Performed By: #### C BC ####[facility] [address] [place], [place] [address]Dr. Benoit Diggs Hemoglobin (Bld) [Mass/Vol] 8.4 g/dL Critically low 12.0-16.0 [facility] Comment on above: Performed By: #### C BC ####[facility] [address] [place], [place] [address]Dr. Karyaurora Diggs IG # 0.04 10e3/ul Critically high 0.00-0.03 [facility] Comment on above: Performed By: #### C BC ####[facility] [address] [place], [place] [address]Dr. Karyaurora Diggs IG % 0.4 % Normal 0.0-0.5 [facility] Comment on above: Performed By: #### C BC ####[facility] [address] [place], [place] [address]Dr. Benoit Diggs LYMPH # 2.8 103/ul Normal 1.2-3.8 [facility] Comment on above: Performed By: #### C BC ####[facility] [address] [id number]. Benoit Diggs Lymphocytes/100 WBC (Bld) 26.9 % Normal 20.5-60.0 [facility] Comment on above: Performed By: #### C BC ####[facility] [address] [id number]. Benoit Diggs MANUAL DIFF REQ NO Normal [facility] Comment on above: Performed By: #### C BC ####[facility] [address] [phone]. Benoit Diggs MCH (RBC) [Entitic mass] 24.7 pg Critically low 26.7-34.0 [facility] Comment on above: Performed By: #### C BC ####[facility] [address] [address]Dr. Benoit Diggs MCHC (RBC) [Mass/Vol] 31.8 g/dL Normal 29.9-35.2 [facility] Comment on above: Performed By: #### C BC ####[facility] [address] [phone]. Benoit Diggs MCV (RBC) [Entitic vol] 77.6 fL Critically low 81.0-99.0 [facility] Comment on above: Performed By: #### C BC ####[facility] [address] [id number]. Benoit Dontae MONO # 0.7 103/ul Normal 0.3-0.8 [facility] Comment on above: Performed By: #### C BC ####[facility] [address] [id number]. Benoit Diggs Monocytes/100 WBC (Bld) 6.2 % Normal 1.7-12.0 [facility] Comment on above: Performed By: #### C BC ####[facility] [address] [address]Dr. Karyaurora Diggs NEUT # 6.5 103/ul Normal 1.4-6.5 [facility] Comment on above: Performed By: #### C BC ####[facility] [address] [phone]. Benoit Diggs Neutrophils/100 WBC (Bld) 62.4 % Normal 43.0-75.0 [facility] Comment on above: Performed By: #### C BC ####[facility] [address] [phone]. Benoit Diggs Platelet mean volume (Bld) [Entitic vol] 11.0 fL Normal 9.5-13.5 [facility] Comment on above: Performed By: #### C BC ####[facility] [address] [id number]. Benoit Diggs PLT 215 103/ul Normal 150-450 [facility] Comment on above: Performed By: #### C BC ####[facility] [address] [address]Dr. Benoit Diggs RBC 3.40 106/ul Critically low 4.20-5.40 [facility] Comment on above: Performed By: #### C BC ####[facility] [address] [address]Dr. Benoit Diggs WBC 10.4 103/ul Normal 4.0-11.0 [facility] Comment on above: Performed By: #### C BC ####[facility] [address] [address]DrJael Diggs DRUG SCREEN RAPID (URINE)on 12-01-2022 AMP Negative Normal NEGATIVE [facility] Comment on above: Performed By: #### C BC #### [facility] [address] [address] [address] Benoit Diggs BAR Negative Normal NEGATIVE [facility] Comment on above: Performed By: #### C BC #### [facility] [address] [address] [address] Benoit Diggs BUP Negative Normal NEGATIVE [facility] Comment on above: Performed By: #### C BC #### [facility] [address] [address] [address] Benoit Diggs BZO Negative Normal NEGATIVE [facility] Comment on above: Performed By: #### C BC #### [facility] [address] [place] [address] Dr. Benoit Diggs JOSE MANUEL Negative Normal NEGATIVE [facility] Comment on above: Performed By: #### C BC #### [facility] [address] [place] [address] Dr. Benoit Diggs CUT-OFFS SEE BELOW Normal [facility] Comment on above: Result Comment: AMP (Amphetamine): [...] ng/mL Performed By: #### C BC #### [facility] [address] [place] [address] Dr. Benoit Diggs DRUG CUT HEADER DRUG CLASS TEST SYSTEM CUT-OFF CONCENTRATIONS ARE FOLLOWS: Normal [facility] Comment on above: Performed By: #### C BC #### [facility] [address] [place] [address] Dr. Benoit Diggs mAMP Negative Normal NEGATIVE [facility] Comment on above: Performed By: #### C BC #### [facility] [address] [place] [address] Dr. Benoit Diggs MTD Negative Normal NEGATIVE [facility] Comment on above: Performed By: #### C BC #### [facility] [address] [place] [address] Dr. Benoit Diggs OPI Negative Normal NEGATIVE [facility] Comment on above: Performed By: #### C BC #### [facility] [address] [place] [address] Dr. Benoit Diggs OXY Negative Normal NEGATIVE [facility] Comment on above: Performed By: #### C BC #### [facility] [address] [place] [address] Dr. Benoit Diggs PCP Negative Normal NEGATIVE [facility] Comment on above: Performed By: #### C BC #### [facility] [address] [place] [address] Dr. Benoit Diggs PPX Negative Normal NEGATIVE [facility] Comment on above: Performed By: #### C BC #### [facility] [address] [place] [address] Dr. Benoit Diggs TCA Negative Normal NEGATIVE [facility] Comment on above: Performed By: #### C BC #### [facility] [address] [place] [address] Dr. Benoit Diggs THC Negative Normal NEGATIVE [facility] Comment on above: Performed By: #### C BC #### [facility] [address] [place] [address] Dr. Benoit Diggs TYPE AND SCREENon 12-01-2022 TYPE AND SCREEN Negative Normal [facility] Comment on above: Performed By: #### T NS #### [facility] [address] [place] [address] Dr. Benoit Diggs UA (CLEAN/CATCH) PROGRAM ASSISTANT/MICRO I F IND.on 12-01-2022 Bilirubin Ql (U) Negative Normal NEGATIVE [facility] Comment on above: Performed By: #### C BC #### [facility] [address] [place] [address] Dr. Benoit Diggs Clarity (U) CLEAR Normal CLEAR [facility] Comment on above: Performed By: #### C BC #### [facility] [address] [place] [address] Dr. Benoit Diggs Color (U) YELLOW Normal YELLOW [facility] Comment on above: Performed By: #### C BC #### [facility] [address] [place] [address] Dr. Benoit Diggs Glucose Ql (U) Negative Normal NEGATIVE [facility] Comment on above: Performed By: #### C BC #### [facility] [address] [place] [address] Dr. Benoit Diggs Hemoglobin Ql (U) Negative Normal NEGATIVE [facility] Comment on above: Performed By: #### C BC #### [facility] [address] [place] [address] Dr. Benoit Diggs Ketones Ql (U) Negative Normal NEGATIVE [facility] Comment on above: Performed By: #### C BC #### [facility] [address] [place] [address] Dr. Benoit Diggs LEUKOCYTES Negative Normal NEGATIVE [facility] Comment on above: Performed By: #### C BC #### [facility] [address] [place] [address] Dr. Benoit Diggs Nitrite Ql (U) Negative Normal NEGATIVE The [facility] Comment on above: Performed By: #### C BC #### [facility] [address] [place] [address] Dr. Benoit Diggs pH (U) 6.0 [pH] Normal 5-9 [facility] Comment on above: Performed By: #### C BC #### [facility] [address] [place] [address] Dr. Benoit Diggs SPEC GRAVITY 1.010 Normal 1.005-<=1.025 [facility] Comment on above: Performed By: #### C BC #### [facility] [address] [place] [address] Dr. Benoit Diggs UA PROTEIN TRACE Normal NEGATIVE/ TRACE The [facility] Comment on above: Performed By: #### C BC #### [facility] [address] [place] [address] Dr. Benoit Diggs UR MICRO IND NOT INDICATED Normal The [facility] Comment on above: Performed By: #### C BC #### [facility] [address] [place] [address] Dr. Benoit Diggs Urobilinogen Qn (U) 4 {Nadege'U}/dL Abnormal 0.2 - 1.0 [facility] Comment on above: Performed By: #### C BC #### [facility] [address] [place] [address] Dr. Benoit Diggs CULTURE URINEon 11-29-2022 CULTURE URINE Culture Observations : MODERATE GROWTH OF MIXED GENITAL RIZWAN. NO POTENTIAL PATHOGENS SEEN. Normal The [facility] Comment on above: Performed By: #### U RCX #### [facility] [address] [place] [address] Dr. Benoit Diggs UA (CLEAN/CATCH) PROGRAM ASSISTANT/MICRO I F IND.on 11-29-2022 Bilirubin Ql (U) SMALL Abnormal NEGATIVE The [facility] Comment on above: Performed By: #### C BC #### [facility] [address] [place] [address] Dr. Benoit Diggs Clarity (U) CLEAR Normal CLEAR [facility] Comment on above: Performed By: #### C BC #### [facility] [address] [place] [address] Dr. Benoit Diggs Color (U) DK. ORANGE Abnormal YELLOW [facility] Comment on above: Performed By: #### C BC #### [facility] [address] [place] [address] Dr. Benoit Diggs Glucose Ql (U) Negative Normal NEGATIVE The [facility] Comment on above: Performed By: #### C BC #### [facility] [address] [place] [address] Dr. Benoit Diggs Hemoglobin Ql (U) Negative Normal NEGATIVE The [facility] Comment on above: Performed By: #### C BC #### [facility] [address] [place] [address] Dr. Benoit Diggs Ketones Ql (U) TRACE Abnormal NEGATIVE The [facility] Comment on above: Performed By: #### C BC #### [facility] [address] [place] [address] Dr. Benoit Diggs LEUKOCYTES SMALL Abnormal NEGATIVE [facility] Comment on above: Performed By: #### C BC #### [facility] [address] [place] [address] Dr. Benoit Diggs Nitrite Ql (U) Negative Normal NEGATIVE The [facility] Comment on above: Performed By: #### C BC #### [facility] [address] [place] [address] Dr. Benoit Diggs pH (U) 5.5 [pH] Normal 5-9 [facility] Comment on above: Performed By: #### C BC #### [facility] [address] [place] [address] Dr. Benoit Diggs SPEC GRAVITY >=1.030 Abnormal 1.005-<=1.025 The [facility] Comment on above: Performed By: #### C BC #### [facility] [address] [place] [address] Dr. Benoit Diggs UA PROTEIN 100 mg/dl Abnormal NEGATIVE/ TRACE The [facility] Comment on above: Performed By: #### C BC #### [facility] [address] [place] [address] Dr. Benoit Diggs UR MICRO IND INDICATED Normal The [facility] Comment on above: Performed By: #### C BC #### [facility] [address] [place] [address] Dr. Benoit Diggs Urobilinogen Qn (U) 8 {Nadege'U}/dL Abnormal 0.2 - 1.0 [facility] Comment on above: Performed By: #### C BC #### [facility] [address] [place] [address] Dr. Benoit Diggs URINE MICROSCOPIC ONLYon BACTERIA MODERATE Abnormal NONE SEEN The [facility] Comment on above: Performed By: #### C BC #### [facility] [address] [place] [address] Dr. Benoit Diggs Bacteria identified Cx Nom (U) INDICATED Normal The [facility] Comment on above: Performed By: #### C BC #### [facility] [address] [place] [address] Dr. Benoit Diggs CAST NONE SEEN Normal NONE SEEN The [facility] Comment on above: Performed By: #### C BC #### [facility] [address] [place] [address] Dr. Benoit Diggs Crystals LM Nom (Urine sed) NONE SEEN Normal NONE SEEN The [facility] Comment on above: Performed By: #### C BC #### [facility] [address] [place] [address] Dr. Benoit Diggs Epithelial cells LM Ql (Urine sed) MANY Abnormal NONE SEEN /RARE The [facility] Comment on above: Performed By: #### C BC #### [facility] [address] [place] [address] Dr. Benoit Diggs MUCOUS SMALL Abnormal NONE SEEN [facility] Comment on above: Performed By: #### C BC #### [facility] [address] [place] [address] Dr. Benoit Diggs RBC 5-10 Abnormal 0-2 [facility] Comment on above: Performed By: #### C BC #### [facility] [address] [place] [address] Dr. Benoit Diggs WBC 20-50 Abnormal NONE SEEN [facility] Comment on above: Performed By: #### C BC #### [facility] [address] [place] [address] Dr. Benoit Diggs GROUP B STREP CULTUREon 10-22 S. agalactiae Ag Ql (Unsp spec) Culture Observations: NEGATIVE FOR GROUP B STREPTOCOCCUS. Normal [facility] Comment on above: Performed By: #### G BSCX #### [facility] [address] [place] [address] Dr. Benoit Diggs CBC AUTO DIFFon 09-22-2022 BASO # 0.0 103/ul Normal 0.0-0.1 [facility] Comment on above: Performed By: #### C BC #### [facility] [address] [place] [address] Dr. Benoit Diggs Basophils/100 WBC (Bld) 0.3 % Normal 0.2-2.0 [facility] Comment on above: Performed By: #### C BC #### [facility] [address] [place] [address] Dr. Benoit Diggs EO # 0.1 103/ul Normal 0.0-0.7 [facility] Comment on above: Performed By: #### C BC #### [facility] [address] [place] [address] Dr. Benoit Diggs Eosinophils/100 WBC (Bld) 2.0 % Normal 0.9-7.0 [facility] Comment on above: Performed By: #### C BC #### [facility] [address] [place] [address] Dr. Benoit Diggs Erythrocyte distribution width (RBC) [Ratio] 12.7 % Normal 11.0-15.0 [facility] Comment on above: Performed By: #### C BC #### [facility] [address] [place] [address] Dr. Benoit Diggs Hematocrit (Bld) [Volume fraction] 30.6 % Critically low 36.0-48.0 [facility] Comment on above: Performed By: #### C BC #### [facility] [address] [place] [address] Dr. Benoit Diggs Hemoglobin (Bld) [Mass/Vol] 10.1 g/dL Critically low 12.0-16.0 [facility] Comment on above: Performed By: #### C BC #### [facility] [address] [place] [address] Dr. Benoit Diggs IG # 0.03 10e3/ul Normal 0.00-0.03 [facility] Comment on above: Performed By: #### C BC #### [facility] [address] [place] [address] Dr. Benoit Diggs IG % 0.5 % Normal 0.0-0.5 [facility] Comment on above: Performed By: #### C BC #### [facility] [address] [place] [address] Dr. Benoit Diggs LYMPH # 0.6 103/ul Critically low 1.2-3.8 [facility] Comment on above: Performed By: #### C BC #### [facility] [address] [place] [address] Dr. Benoit Diggs Lymphocytes/100 WBC (Bld) 10.7 % Critically low 20.5-60.0 [facility] Comment on above: Performed By: #### C BC #### [facility] [address] [place] [address] Dr. Benoit Diggs MANUAL DIFF REQ NO Normal [facility] Comment on above: Performed By: #### C BC #### [facility] [address] [place] [address] Dr. Benoit Diggs MCH (RBC) [Entitic mass] 28.9 pg Normal 26.7-34.0 [facility] Comment on above: Performed By: #### C BC #### [facility] [address] [place] [address] Dr. Benoit Diggs MCHC (RBC) [Mass/Vol] 33.0 g/dL Normal 29.9-35.2 [facility] Comment on above: Performed By: #### C BC #### [facility] [address] [place] [address] Dr. Benoit Diggs MCV (RBC) [Entitic vol] 87.4 fL Normal 81.0-99.0 [facility] Comment on above: Performed By: #### C BC #### [facility] [address] [place] [address] Dr. Benoit Diggs MONO # 0.6 103/ul Normal 0.3-0.8 [facility] Comment on above: Performed By: #### C BC #### [facility] [address] [place] [address] Dr. Benoit Diggs Monocytes/100 WBC (Bld) 10.9 % Normal 1.7-12.0 [facility] Comment on above: Performed By: #### C BC #### [facility] [address] [place] [address] Dr. Benoit Diggs NEUT # 4.4 103/ul Normal 1.4-6.5 [facility] Comment on above: Performed By: #### C BC #### [facility] [address] [place] [address] Dr. Benoit Diggs Neutrophils/100 WBC (Bld) 75.6 % Critically high 43.0-75.0 [facility] Comment on above: Performed By: #### C BC #### [facility] [address] [place] [address] Dr. Benoit Diggs Platelet mean volume (Bld) [Entitic vol] 10.9 fL Normal 9.5-13.5 [facility] Comment on above: Performed By: #### C BC #### [facility] [address] [address] [address] Benoit Diggs PLT 191 103/ul Normal 150-450 [facility] Comment on above: Performed By: #### C BC #### [facility] [address] [place] [address] Dr. Benoit Diggs RBC 3.50 106/ul Critically low 4.20-5.40 [facility] Comment on above: Performed By: #### C BC #### [facility] [address] [place] [address] Dr. Benoit Diggs WBC 5.9 103/ul Normal 4.0-11.0 [facility] Comment on above: Performed By: #### C BC #### [facility] [address] [place] [address] Dr. Benoit Diggs CULTURE URINEon 09-22-2022 CULTURE URINE Culture Observations : HEAVY GROWTH OF MIXED GENITAL RIZWAN. NO POTENTIAL PATHOGENS SEEN. Normal [facility] Comment on above: Performed By: #### U RCX #### [facility] [address] [place] [address] Dr. Benoit Diggs ER URINE PROFILEon Bilirubin Ql (U) Negative Normal NEGATIVE [facility] Comment on above: Performed By: #### H IV12 #### [facility] [address] [place] [address] Dr. Benoit Diggs Clarity (U) CLEAR Normal CLEAR [facility] Comment on above: Performed By: #### H IV12 #### [facility] [address] [place] [address] Dr. Benoit Diggs Color (U) YELLOW Normal YELLOW [facility] Comment on above: Performed By: #### H IV12 #### [facility] [address] [place] [address] Dr. Benoit VELA A micrscopic examination will be performed if indicated. Normal [facility] Comment on above: Performed By: #### H IV12 #### [facility] [address] [place] [address] Dr. Benoit Diggs Glucose Ql (U) Negative Normal NEGATIVE [facility] Comment on above: Performed By: #### H IV12 #### [facility] [address] [address] [address] Benoit Diggs Hemoglobin Ql (U) Negative Normal NEGATIVE [facility] Comment on above: Performed By: #### H IV12 #### [facility] [address] [address] [address] Benoit Diggs Ketones Ql (U) 15 mg/dl Abnormal NEGATIVE [facility] Comment on above: Performed By: #### H IV12 #### [facility] [address] [address] [address] Benoit Diggs LEUKOCYTES Negative Normal NEGATIVE [facility] Comment on above: Performed By: #### H IV12 #### [facility] [address] [place] [address] Dr. Benoit Diggs Nitrite Ql (U) Negative Normal NEGATIVE [facility] Comment on above: Performed By: #### H IV12 #### [facility] [address] [address] [address] Benoit Diggs pH (U) 6.5 [pH] Normal 5-9 [facility] Comment on above: Performed By: #### H IV12 #### [facility] [address] [place] [address] Dr. Beniot Diggs SPEC GRAVITY 1.025 Normal 1.005-<=1.025 [facility] Comment on above: Performed By: #### H IV12 #### [facility] [address] [place] [address] Dr. Benoit Diggs UA PROTEIN TRACE Normal NEGATIVE/ TRACE [facility] Comment on above: Performed By: #### H IV12 #### [facility] [address] [address] [address] Benoit Diggs UR MICRO IND INDICATED Normal [facility] Comment on above: Performed By: #### H IV12 #### [facility] [address] [place] [address] Dr. Benoit Diggs Urobilinogen Qn (U) 1.0 {Nadege'U}/dL Normal 0.2 - 1. 0 [facility] Comment on above: Performed By: #### H IV12 #### [facility] [address] [place] [address] Dr. Benoit Diggs INFLUENZA A AND B AGon 09-22 INFLUANEGH SEE BELOW Normal [facility] Comment on above: Result Comment: Nega tive for Flu A protein angiten. Infection due to Flu A cannot be ruled out. Flu A angiten in the sample may be below the detection limit of the test. Performed By: #### H IV12 #### [facility] [address] [place] [address] Dr. Benoit Diggs INFLUBNEG SEE BELOW Normal [facility] Comment on above: Result Comment: Nega tive for Flu B protein antigen. Infection due to Flu B cannot be ruled out. Flu B antigen in the sample may be below the detection limit of the test. Performed By: #### H IV12 #### [facility] [address] [place] [address] Dr. Benoit Diggs INFLUENZA A AG Negative Normal NEGATIVE SEE COMMENT [facility] Comment on above: Performed By: #### H IV12 #### [facility] [address] [place] [address] Dr. Benoit Diggs INFLUENZA B AG Negative Normal NEGATIVE SEE COMMENT [facility] Comment on above: Performed By: #### H IV12 #### [facility] [address] [place] [address] Dr. Benoit Diggs INTERNAL CONTROLS Within Normal Limits Normal Wi thin Normal Limits [facility] Comment on above: Performed By: #### H IV12 #### [facility] [address] [place] [address] Dr. Benoit Diggs PROF CHEM 8 (BAS METB)on Anion gap [Moles/Vol] 11.6 mmol/L Normal [facility] Comment on above: Performed By: #### C BC #### [facility] [address] [place] [address] Dr. Benoit Diggs Calcium [Mass/Vol] 8.2 mg/dL Critically low 8.5-10.1 [facility] e [facility] Comment on above: Performed By: #### C BC #### [facility] [address] [address] [address] Benoit Diggs Chloride [Moles/Vol] 100 mmol/L Normal 98-107 [facility] Comment on above: Performed By: #### C BC #### [facility] [address] [address] [address] Benoit Diggs CO2 [Moles/Vol] 23.9 mmol/L Normal 21.0-32.0 [facility] Comment on above: Performed By: #### C BC #### [facility] [address] [address] [address] Benoit Diggs Creatinine [Mass/Vol] 0.48 mg/dL Critically low 0.55-1.02 [facility] Comment on above: Performed By: #### C BC #### [facility] [address] [place] [address] Dr. eBnoit Diggs EGFR-AF KOSOVAN >60 Normal >=60 [facility] Comment on above: Performed By: #### C BC #### [facility] [address] [place] [address] Dr. Benoit Diggs EGFR-NON AF KOSOVAN >60 Normal >=60 [facility] Comment on above: Performed By: #### C BC #### [facility] [address] [place] [address] Dr. Benoit Diggs Glucose [Mass/Vol] 94 mg/dL Normal 74-106 [facility] Comment on above: Performed By: #### C BC #### [facility] [address] [address] [address] Benoit Diggs Potassium [Moles/Vol] 3.5 mmol/L Normal 3.5-5.1 [facility] Comment on above: Performed By: #### C BC #### [facility] [address] [place] [address] Dr. Benoit Diggs Sodium [Moles/Vol] 132 mmol/L Critically low 136-145 [facility] Comment on above: Performed By: #### C BC #### [facility] [address] [place] [address] Dr. Benoit Diggs Urea nitrogen [Mass/Vol] 6.0 mg/dL Critically low 7.0-18.0 [facility] Comment on above: Performed By: #### C BC #### [facility] [address] [address] [address] Benoit Diggs Urea nitrogen/Creatinine [Mass ratio] 12.5 mg/mg Normal [facility] Comment on above: Performed By: #### C BC #### [facility] [address] [address] [address] Benoit Diggs RESPIRATORY PANEL PLUSon Adenovirus Not detected Normal NOT DETECTED [facility] Comment on above: Performed By: #### R SPLUS ####[facility] [address] [place], [place] [address]Dr. Benoit Diggs B. Parapertusis Not detected Normal NOT DETECTED [facility] Comment on above: Performed By: #### R SPLUS ####[facility] [address] [place], [place] [address]Dr. Benoit Diggs B. Pertussis Not detected Normal NOT DETECTED The [facility] Comment on above: Performed By: #### R SPLUS ####[facility] [address] [place], [place] [address]Dr. Benoit Diggs Chlamydia Pneumoniae Not detected Normal NOT DETECTED The [facility] Comment on above: Performed By: #### R SPLUS ####[facility] [address] [place], [place] [address]Dr. Benoit Diggs Coronavirus 229E Not detected Normal NOT DETECTED The [facility] Comment on above: Performed By: #### R SPLUS ####[facility] [address] [address]Dr. Benoit Diggs Coronavirus HKU1 Not detected Normal NOT DETECTED [facility] Comment on above: Performed By: #### R SPLUS ####[facility] [address] [place], [place] [address]Dr. Benoit Diggs Coronavirus NL63 Not detected Normal NOT DETECTED The [facility] Comment on above: Performed By: #### R SPLUS ####[facility] [address] [place], [place] [address]Dr. Benoit Diggs Coronavirus OC43 Not detected Normal NOT DETECTED The [facility] Comment on above: Performed By: #### R SPLUS ####[facility] [address] [address]Dr. Benoit Diggs Influenza A H1 2009 Detected Abnormal NOT DETECTED The [facility] Comment on above: Performed By: #### R SPLUS ####[facility] [address] [address]Dr. Benoit Diggs Influenza A H3 Not detected Normal NOT DETECTED [facility] Comment on above: Performed By: #### R SPLUS ####[facility] [address] [address]Dr. Benoit Diggs Influenza B Not detected Normal NOT DETECTED [facility] Comment on above: Performed By: #### R SPLUS ####[facility] [address] [address]Dr. Benoit Diggs Metapneumovirus Not detected Normal NOT DETECTED The [facility] Comment on above: Performed By: #### R SPLUS ####[facility] [address] [address]Dr. Benoit Diggs Mycoplas. Pneumoniae Not detected Normal NOT DETECTED The [facility] Comment on above: Performed By: #### R SPLUS ####[facility] [address] [address]Dr. Benoit Diggs Parainfluenza 1 Not detected Normal NOT DETECTED [facility] Comment on above: Performed By: #### R SPLUS ####[facility] [address] [address]Dr. Benoit Diggs Parainfluenza 2 Not detected Normal NOT DETECTED [facility] Comment on above: Performed By: #### R SPLUS ####[facility] [address] [address]Dr. Benoit Diggs Parainfluenza 3 Not detected Normal NOT DETECTED [facility] Comment on above: Performed By: #### R SPLUS ####[facility] [address] [place], [place] [address]Dr. Benoit Diggs Parainfluenza 4 Not detected Normal NOT DETECTED [facility] Comment on above: Performed By: #### R SPLUS ####[facility] [address] [address]Dr. Karyaurora Diggs Rhino/Enterovirus Not detected Normal NOT DETECTED [facility] Comment on above: Performed By: #### R SPLUS ####[facility] [address] [address]Dr. Benoit Diggs RP2 Header 1 RESPIRATORY PANEL: VIRUSES Normal [facility] Comment on above: Performed By: #### R SPLUS ####[facility] [address] [address]Dr. Benoit Diggs RP2 Header 2 RESPIRATORY PANEL: BACTERIA Normal [facility] Comment on above: Performed By: #### R SPLUS ####[facility] [address] [place], [place] [address]Dr. Benoit Diggs RSV Not detected Normal NOT DETECTED [facility] Comment on above: Performed By: #### R SPLUS ####[facility] [address] [address]Dr. Benoit Diggs SARS-CoV-2 (COVID-19) RNA RANDOLPH+probe Ql (Unsp spec) Not detected Normal NOT DETECTED [facility] Comment on above: Performed By: #### R SPLUS ####[facility] [id number] [place], [place] [address]Dr. Benoit Diggs Result Comment: When diagnostic testing [...] for this test is supported by the Associate Principal of Health and Human Service's declaration that [...] used). Performed By: #### H IV12 #### [facility] [address] [place] [address] Dr. Benoit Diggs URINE MICROSCOPIC ONLYon BACTERIA TRACE Abnormal NONE SEEN [facility] Comment on above: Performed By: #### H IV12 #### [facility] [address] [place] [address] Dr. Benoit Diggs Bacteria identified Cx Nom (U) INDICATED Normal [facility] Comment on above: Performed By: #### H IV12 #### [facility] [address] [place] [address] Dr. Benoit Diggs CAST NONE SEEN Normal NONE SEEN [facility] Comment on above: Performed By: #### H IV12 #### [facility] [address] [place] [address] Dr. Benoit Diggs Crystals LM Nom (Urine sed) NONE SEEN Normal NONE SEEN [facility] Comment on above: Performed By: #### H IV12 #### [facility] [address] [place] [address] Dr. Benoit Diggs Epithelial cells LM Ql (Urine sed) MODERATE Abnormal NONE SEEN /RARE [facility] Comment on above: Performed By: #### H IV12 #### [facility] [address] [place] [address] Dr. Benoit Diggs MUCOUS NONE SEEN Normal NONE SEEN [facility] Comment on above: Performed By: #### H IV12 #### [facility] [address] [place] [address] Dr. Benoit Diggs RBC 0-2 Normal 0-2 [facility] Comment on above: Performed By: #### H IV12 #### [facility] [address] [place] [address] Dr. Benoit Diggs WBC 5-10 Abnormal NONE SEEN [facility] Comment on above: Performed By: #### H IV12 #### [facility] [address] [place] [address] Dr. Benoit Diggs CBC AUTO DIFFon 09-09-2022 BASO # 0.1 103/ul Normal 0.0-0.1 [facility] Comment on above: Performed By: #### C BC #### [facility] [address] [address] [address] Benoit Diggs Basophils/100 WBC (Bld) 0.5 % Normal 0.2-2.0 [facility] Comment on above: Performed By: #### C BC #### [facility] [address] [address] [address] Benoit Diggs EO # 0.4 103/ul Normal 0.0-0.7 [facility] Comment on above: Performed By: #### C BC #### [facility] [address] [address] [address] Benoit Diggs Eosinophils/100 WBC (Bld) 4.1 % Normal 0.9-7.0 [facility] Comment on above: Performed By: #### C BC #### [facility] [address] [place] [address] Dr. Benoit Diggs Erythrocyte distribution width (RBC) [Ratio] 12.8 % Normal 11.0-15.0 [facility] Comment on above: Performed By: #### C BC #### [facility] [address] [place] [address] Dr. Benoit Diggs Hematocrit (Bld) [Volume fraction] 31.4 % Critically low 36.0-48.0 [facility] Comment on above: Performed By: #### C BC #### [facility] [address] [place] [address] Dr. Benoit Diggs Hemoglobin (Bld) [Mass/Vol] 10.5 g/dL Critically low 12.0-16.0 [facility] Comment on above: Performed By: #### C BC #### [facility] [address] [address] [address] Benoit Diggs IG # 0.05 10e3/ul Critically high 0.00-0.03 [facility] Comment on above: Performed By: #### C BC #### [facility] [address] [place] [address] Dr. Benoit Diggs IG % 0.5 % Normal 0.0-0.5 [facility] Comment on above: Performed By: #### C BC #### [facility] [address] [place] [address] Dr. Benoit Diggs LYMPH # 2.2 103/ul Normal 1.2-3.8 [facility] Comment on above: Performed By: #### C BC #### [facility] [address] [place] [address] Dr. Benoit Diggs Lymphocytes/100 WBC (Bld) 21.9 % Normal 20.5-60.0 [facility] Comment on above: Performed By: #### C BC #### [facility] [address] [place] [address] Dr. Benoit Diggs MANUAL DIFF REQ NO Normal [facility] Comment on above: Performed By: #### C BC #### [facility] [address] [place] [address] Dr. Benoit Diggs MCH (RBC) [Entitic mass] 29.7 pg Normal 26.7-34.0 [facility] Comment on above: Performed By: #### C BC #### [facility] [address] [place] [address] Dr. Benoit Diggs MCHC (RBC) [Mass/Vol] 33.4 g/dL Normal 29.9-35.2 [facility] Comment on above: Performed By: #### C BC #### [facility] [address] [place] [address] Dr. Benoit Diggs MCV (RBC) [Entitic vol] 89.0 fL Normal 81.0-99.0 [facility] Comment on above: Performed By: #### C BC #### [facility] [address] [place] [address] Dr. Benoit Diggs MONO # 0.6 103/ul Normal 0.3-0.8 [facility] Comment on above: Performed By: #### C BC #### [facility] [address] [place] [address] Dr. Benoit Diggs Monocytes/100 WBC (Bld) 5.7 % Normal 1.7-12.0 [facility] Comment on above: Performed By: #### C BC #### [facility] [address] [address] [address] Benoit Diggs NEUT # 6.8 103/ul Critically high 1.4-6.5 [facility] Comment on above: Performed By: #### C BC #### [facility] [address] [address] [address] Benoit Diggs Neutrophils/100 WBC (Bld) 67.3 % Normal 43.0-75.0 [facility] Comment on above: Performed By: #### C BC #### [facility] [address] [place] [address] Dr. Benoit Diggs Platelet mean volume (Bld) [Entitic vol] 11.0 fL Normal 9.5-13.5 [facility] Comment on above: Performed By: #### C BC #### [facility] [address] [place] [address] Dr. Benoit Diggs PLT 215 103/ul Normal 150-450 [facility] Comment on above: Performed By: #### C BC #### [facility] [address] [place] [address] Dr. Benoit Diggs RBC 3.53 106/ul Critically low 4.20-5.40 [facility] Comment on above: Performed By: #### C BC #### [facility] [address] [place] [address] Dr. Benoit Diggs WBC 10.2 103/ul Normal 4.0-11.0 [facility] Comment on above: Performed By: #### C BC #### [facility] [address] [place] [address] Dr. Benoit Diggs GLUCOSE - 1HRon 09-09-2022 Glucose [Mass/Vol] 116 mg/dL Critically high 74-[address] [facility] Comment on above: Performed By: #### G LU1HR ####[facility] [id number] [address]Dr. Benoit Diggs PAP ACOG PANEL 2: 21 to 29on 08-13-2022 . . Normal [facility] Comment on above: Performed By: #### C BC #### [facility] [address] [place] [address] Dr. Benoit Diggs Age Gdln ACOG Testing 21- [facility] Comment on above: Performed By: #### C BC #### [facility] [address] [place] [address] Dr. Benoit Diggs DIAGNOSIS: Comment [facility] Comment on above: Result Comment: NEGA TIVE FOR INTRAEPITHELIAL LESION OR MALIGNANCY. Performed By: #### C BC #### [facility] [address] [place] [address] Dr. Benoit Diggs Methodology: Comment [facility] Comment on above: Result Comment: This liquid based ThinPrep(R) pap test was screened with the use of an image guided system. Performed By: #### C BC #### [facility] [address] [place] [address] Dr. Benoit Diggs Note: Comment [facility] Comment on above: Result Comment: The Pap smear is a screening test designed to aid in the detection of premalignant and malignant conditions of the uterine cervix. It is not a diagnostic procedure and should not be used as the sole means of detecting cervical cancer. Both false-positive and false-negative reports do occur. . Performed By: #### C BC #### [facility] [address] [place] [address] Dr. Benoit Diggs Performed by: Comment Normal [facility] Comment on above: Result Comment: Cynthia Smith, Hospice Chaplain (ASCP) Performed By: #### C BC #### [facility] [address] [place] [address] Dr. Benoit Diggs Reflex Criteria: Comment [facility] Comment on above: Result Comment: The HPV DNA reflex criteria were not met with this specimen result therefore, no HPV testing was performed. . Performed By: #### C BC #### [facility] [address] [place] [address] Dr. Benoit Diggs Specimen adequacy: Comment [facility] Comment on above: Result Comment: Sati sfactory for evaluation. No endocervical component is identified. Performed By: #### C BC #### [facility] [address] [place], [place] [address] Dr. Benoit Diggs CHLAMYDIA/GONOCOCCUS RANDOLPH ( AB/URINE/PAPon 08-08-2022 Chlamydia trachomatis, RANDOLPH Negative Normal Negative [facility] Comment on above: Performed By: #### H IV12 #### [facility] [address] [place], [place] [address] Dr. Benoit Diggs Neisseria gonorrhoeae, RANDOLPH Negative Normal Negative [facility] Comment on above: Performed By: #### H IV12 #### [facility] [address] [place], [place] [address] Dr. Benoit Diggs US PREG INCOMPLETE ANATOMYon [...] by: MYLENE SULLIVAN Date: 2022-08-07 20:09 Normal [facility] US PREG ANATOMY SINGLEon US PREG ANATOMY [...] AISHWARYA MAGALLON Date: 2022-07-25 17:11 Normal [facility] AFP MATERNAL FOR SPINA BIFID Aon 07-17-2022 AFP MoM 0.55 Normal [facility] Comment on above: Performed By: #### H IV12 #### [facility] [address] [address] [address] Benoit Diggs AFP Value 20.0 ng/mL Normal [facility] Comment on above: Performed By: #### H IV12 #### [facility] [address] [address] [address] Benoit Diggs AFP, Serum for Spina Bifida Report Normal [facility] Comment on above: Performed By: #### H IV12 #### [facility] [address] [address] [address] Benoit Diggs Comment Comment Normal [facility] Comment on above: Result Comment: Ector Palafox, Ph.D., [facility] Director . References: Available Upon Request. . Multiples Of Median Cutoffs For AFP Elevations Caro 2.5 Black 2.8 IDD 2.0 Twins 4.5 Abbreviation Definitions IDD - Insulin Dep Diabetes OSBR - Open Spina Bifida Risk . For further inquiries contact [employer] at [phone]. . This test was developed and its performance characteristics determined by [employer]. It has not been cleared or approved by the Food and Drug Administration. Performed By: #### H IV12 #### [facility] [address] [place] [address] Dr. Benoit Davey Age Collection Date 18.1 weeks Normal [facility] Comment on above: Performed By: #### H IV12 #### [facility] [address] [address] [address] Benoit Diggs Gestat, Age Based on Ultrasound Normal [facility] Comment on above: Result Comment: 13:1 on 06/06/2022 Recalculations are not recommended when gestational dating by LMP and ultrasound are within 10 days. Performed By: #### H IV12 #### [facility] [address] [place] [address] Dr. Benoit Diggs Insulin Dep Diabetes No Normal [facility] Comment on above: Performed By: #### H IV12 #### [facility] [address] [place] [address] Dr. Benoit Diggs Interpretation Comment Normal [facility] Comment on above: Result Comment: Inte rpretation: [...] Customer Services to discuss available options. The [employer] recommends amniocentesis be offered to women age 35 and older. Performed By: #### H IV12 #### [facility] [address] [place] [address] Dr. Benoit Diggs [age] Normal [facility] Comment on above: Performed By: #### H IV12 #### [facility] [address] [place] [address] Dr. Benoit Diggs Multiple Gestation No Normal [facility] Comment on above: Performed By: #### H IV12 #### [facility] [address] [address] [address] Benoit Diggs [place] [address] Normal [facility] Comment on above: Performed By: #### H IV12 #### [facility] [address] [address] [address] Benoit Diggs PDF . Normal [facility] Comment on above: Performed By: #### H IV12 #### [facility] [address] [address] [address] Benoit Diggs Race Normal [facility] Comment on above: Performed By: #### H IV12 #### [facility] [address] [address] [address] Benoit Diggs Test Results: Negative [facility] Comment on above: Performed By: #### H IV12 #### [facility] [address] [place] [address] Dr. Benoit Diggs HEP B SURFACE ANTIGEN SCREEN on 06-07-2022 HBsAg Screen Negative Normal Negative [facility] Comment on above: Performed By: #### H IV12 #### [facility] [address] [address] [address] Benoit Diggs HEPATITIS C VIRUS AB W/ REFL EX QUANTon 06-07-2022 HCV AB <0.1 Normal 0.0-0.9 [facility] Comment on above: Performed By: #### H IV12 #### [facility] [address] [place] [address] Dr. Benoit Diggs Interpretation: Comment Normal [facility] Comment on above: Result Comment: Nega tive Not infected with HCV, unless recent infection is suspected or other evidence exists to indicate HCV infection. Performed By: #### H IV12 #### [facility] [address] [place] [address] Dr. Benoit Diggs HIV 1 AND 2 WITH REFLEXon HIV Screen 4th Generation wRfx Non-Reactive Normal Non Reactive [facility] Comment on above: Result Comment: HIV Negative HIV-1/HIV-2 antibodies and HIV-1 p24 antigen were NOT detected. There is no laboratory evidence of HIV infection. Performed By: #### H IV12 #### [facility] [address] [address] [address] Benoit Diggs RPR QUANTon 06-07-2022 Rapid Plasma Reagin, Quant Non-Reactive Normal NonRea<1:1 [facility] Comment on above: Result Comment: Janene infante Note: This test does not meet current guidelines for screening and diagnosis of syphilis. This test is intended for following treatment response in patients being treated for syphilis infection. To screen for syphilis infection, a reflex cascade that includes both RPR and a treponema-specific assay should be utilized, such as Treponema pallidum (Syphilis) Screening [place] (347544) or Rapid Plasma Reagin (RPR) Test With Reflex to Quantitative RPR and Confirmatory Treponema pallidum Antibodies (795216). Performed By: #### H IV12 #### [facility] [address] [place] [address] Dr. Benoit Diggs RUBELLA AB IGGon 06-07-2022 Rubella Antibodies, IgG 3.22 index Normal Immune >0.99 [facility] Comment on above: Result Comment: Non- immune <0.90 Equivocal 0.90 - 0.99 Immune >0.99 Performed By: #### C BC #### [facility] [address] [place] [address] Dr. Benoit Diggs US PREG <14 WKSon [...] MYLENE SULLIVAN Date: 2022-06-06 22:25 Normal [facility] CBC AUTO DIFFon 06-06-2022 BASO # 0.1 103/ul Normal 0.0-0.1 [facility] Comment on above: Performed By: #### C BC #### [facility] [address] [place] [address] Dr. Benoit Diggs Basophils/100 WBC (Bld) 0.6 % Normal 0.2-2.0 [facility] Comment on above: Performed By: #### C BC #### [facility] [address] [place] [address] Dr. Benoit Diggs EO # 0.3 103/ul Normal 0.0-0.7 [facility] Comment on above: Performed By: #### C BC #### [facility] [address] [place] [address] Dr. Benoit Diggs Eosinophils/100 WBC (Bld) 4.1 % Normal 0.9-7.0 [facility] Comment on above: Performed By: #### C BC #### [facility] [address] [place] [address] Dr. Benoit Diggs Erythrocyte distribution width (RBC) [Ratio] 13.9 % Normal 11.0-15.0 [facility] Comment on above: Performed By: #### C BC #### [facility] [address] [place] [address] Dr. Benoit Diggs Hematocrit (Bld) [Volume fraction] 36.0 % Normal 36.0-48.0 [facility] Comment on above: Performed By: #### C BC #### [facility] [address] [place] [address] Dr. Benoit Diggs Hemoglobin (Bld) [Mass/Vol] 12.0 g/dL Normal 12.0-16.0 [facility] Comment on above: Performed By: #### C BC #### [facility] [address] [place] [address] Dr. Benoit Diggs IG # 0.03 10e3/ul Normal 0.00-0.03 [facility] Comment on above: Performed By: #### C BC #### [facility] [address] [place] [address] Dr. Benoit Diggs IG % 0.4 % Normal 0.0-0.5 [facility] Comment on above: Performed By: #### C BC #### [facility] [address] [place] [address] Dr. Benoit Diggs LYMPH # 2.7 103/ul Normal 1.2-3.8 [facility] Comment on above: Performed By: #### C BC #### [facility] [address] [place] [address] Dr. Benoit Diggs Lymphocytes/100 WBC (Bld) 33.2 % Normal 20.5-60.0 [facility] Comment on above: Performed By: #### C BC #### [facility] [address] [place] [address] Dr. Benoit Diggs MANUAL DIFF REQ NO Normal [facility] Comment on above: Performed By: #### C BC #### [facility] [address] [place] [address] Dr. Benoit Diggs MCH (RBC) [Entitic mass] 29.4 pg Normal 26.7-34.0 [facility] Comment on above: Performed By: #### C BC #### [facility] [address] [place] [address] Dr. Benoit Diggs MCHC (RBC) [Mass/Vol] 33.3 g/dL Normal 29.9-35.2 [facility] Comment on above: Performed By: #### C BC #### [facility] [address] [place] [address] Dr. Benoit Diggs MCV (RBC) [Entitic vol] 88.2 fL Normal 81.0-99.0 [facility] Comment on above: Performed By: #### C BC #### [facility] [address] [place] [address] Dr. Benoit Diggs MONO # 0.5 103/ul Normal 0.3-0.8 [facility] Comment on above: Performed By: #### C BC #### [facility] [address] [place] [address] Dr. Benoit Diggs Monocytes/100 WBC (Bld) 6.6 % Normal 1.7-12.0 [facility] Comment on above: Performed By: #### C BC #### [facility] [address] [address] [address] Benoit Diggs NEUT # 4.4 103/ul Normal 1.4-6.5 [facility] Comment on above: Performed By: #### C BC #### [facility] [address] [address] [address] Benoit Diggs Neutrophils/100 WBC (Bld) 55.1 % Normal 43.0-75.0 [facility] Comment on above: Performed By: #### C BC #### [facility] [address] [address] [address] Benoit Diggs Platelet mean volume (Bld) [Entitic vol] 11.0 fL Normal 9.5-13.5 [facility] Comment on above: Performed By: #### C BC #### [facility] [address] [address] [address] Benoit Diggs PLT 225 103/ul Normal 150-450 [facility] Comment on above: Performed By: #### C BC #### [facility] [address] [address] [address] Benoit Diggs RBC 4.08 106/ul Critically low 4.20-5.40 [facility] Comment on above: Performed By: #### C BC #### [facility] [address] [address] [address] Benoit Diggs WBC 8.1 103/ul Normal 4.0-11.0 [facility] Comment on above: Performed By: #### C BC #### [facility] [address] [address] [address] Benoit Diggs CULTURE URINEon 06-06-2022 CULTURE URINE Culture Observations : MODERATE GROWTH OF MIXED GENITAL RIZWAN. NO POTENTIAL PATHOGENS SEEN. Normal [facility] Comment on above: Performed By: #### U RCX ####[facility] [id number] [address]Dr. Benoit Diggs GLYCOHEMOGLOBIN A1Con 2021 ADA RECOMMENDATION SEE BELOW Normal [facility] Comment on above: Result Comment: ADA RECOMMENDED LIMIT 4.0 - 6.0 ADA THERAPEUTIC TARGET < 7.0 ACTION SUGGESTED > 7.0 Performed By: #### C BC #### [facility] [address] [place] [address] Dr. Benoit Diggs Glucose [Mass/Vol] 105 mg/dL Normal [facility] Comment on above: Performed By: #### C BC #### [facility] [address] [place] [address] Dr. Benoit Diggs HbA1c (Bld) [Mass fraction] 5.3 % Normal 4.5-6.2 [facility] Comment on above: Performed By: #### C BC #### [facility] [address] [place] [address] Dr. Benoit Diggs DAVID BOX TEST PT SEND OUTo n 06-06-2022 SENT TO REF LAB 06/06/2022 Normal [facility] Comment on above: Performed By: #### H IV12 #### [facility] [address] [place] [address] Dr. Benoit Diggs TYPE AND SCREENon 06-06-2022 TYPE AND SCREEN Negative Normal [facility] Comment on above: Performed By: #### T NS #### [facility] [address] [place] [address] Dr. Benoit Diggs PREG QUANT HCGon 04-16-2022 HCG QUANT 37689 mIU/mL Normal [facility] Comment on above: Performed By: #### C BC #### [facility] [address] [place] [address] Dr. Benoit Diggs HCG RANGE SEE BELOW Normal [facility] Comment on above: Result Comment: 5-50 0-1 WEEK 40-300 1-2 WEEKS 100-1,000 2-3 WEEKS 500-6,000 3-4 WEEKS 5,000-200,000 1-2 MONTHS 10,000-100,000 2-3 MONTHS 3,000-50,000 2ND TRIMESTER 1,000-50,000 3RD TRIMESTER Performed By: #### C BC #### [facility] [address] [place], [place] [id number] Dr. Benoit Diggs Vital Signs Date Time Vital Sign Value Performing Clinician Facility 07-17-2022 [id number] Body weight 100.[address] DOCTOR PIERCE [facility] Comment on above: Performed By: #### H IV12 #### [facility] [address] [address] [address] Benoit Diggs Encounters Encounter Date Encounter Type Care Provider Facility Start: 06-01-2024 End: 06-01-2024 ambulatory MANUEL NOEL Not Available Start: 04-28-2024 End: 04-28-2024 ambulatory MANUEL NOEL Not Available Start: 03-02-2024 End: 03-02-2024 ambulatory MANUEL NOEL Not Available Start: 02-28-2024 End: 02-29-2024 Emergency department patient visit NAVI Oconnell MOORE [facility] Start: 02-28-2024 End: 02-28-2024 Emergency department patient visit MANUEL NOEL [facility] Start: 04-15-2023 ambulatory Armond Moran acility:[facility] Start: 12-23-2022 Encounter for genera l adult medical examination without abnormal findings DR MANUEL NOEL [facility] Start: 12-21-2022 End: 12-22-[address] MANUEL [...] Start: 09-09-2022 End: 09-10-[address] MANUEL NOEL Facility:[facility] Start: 08-07-2022 End: 08-08-[address] [...] PIERCE Payers Date Payer Category Payer Unknown [id number] 2.16.84 [id number] 2000 Unknown [id number] 2.16.84 0.1.737759.3.579.2.593 2000 Unknown [id number] 2.16.84 0.1.034056.3.579.2.593 2000 Unknown [id number] 2.16.84 0.1.993567.3.579.2.593 2000 Unknown [id number] 2.16.84 0.1.006987.3.579.2.593 2000 Unknown [id number] 2.16.84 0.1.149961.3.579.2.593 2000 Unknown [id number] 2.16.84 0.1.043093.3.579.2.593 2000 Unknown [id number] 2.16.84 0.1.607538.3.579.2.593 2000 Unknown [id number] 2.16.84 0.1.367309.3.579.2.593 2000 Unknown [id number] 2.16.84 0.1.075578.3.579.2.593 2000 Unknown [id number] 2.16.84 0.1.458382.3.579.2.593 2000 Unknown [id number] 2.16.84 0.1.449613.3.579.2.593 2000 Unknown [id number] 2.16.84 0.1.415156.3.579.2.593 2000 Unknown [id number] 2.16.84 0.1.788711.3.579.2.593 2000 Unknown [id number] 2.16.8 40.1.969450.3.579.2.1286 2000 Unknown [id number] 2.16.8 40.1.064145.3.579.2.1286 2000 Unknown [id number] 2.16.84 0.1.412862.3.579.2.1259 2000 Unknown [id number] 2.16.84 0.1.653371.3.579.2.1259 2000 Unknown [id number] 2.16.84 0.1.512012.3.579.2.1259 1959 Self-pay 1959 Unknown [id number] Unknown [id number] 2.16.84 0.1.915174.3.579.2.593 Unknown [id number] 2.16.8 40.1.761514.3.579.2.531 Summary Purpose Family History No Family History Records FoundNo Family History Records FoundNo Family History Records FoundNo Family History Records Found Advance Directives No Advanced Directives Records FoundNo Advanced Directives Records FoundNo Advanced Directives Records FoundNo Advanced Directives Records Found Additional Source Comments INFORMATION SOURCE (unrecogn ized section and content) DATE CREATED AUTHOR 12/24/2022 [facility] DATE CREATED AUTHOR AUTHOR'S ORGANIZ ATION 03/01/2024 [facility] DATE CREATED AUTHOR AUTHOR'S ORGANIZ ATION 05/07/2024 [facility] DATE CREATED AUTHOR AUTHOR'S ORGANIZ ATION 06/03/2024 [facility] [place] FOR RECORDS PERTAINING TO PATIENTS WHO ARE [...] BE BASED ON THE PRIMARY CLINICAL RECORDS. [facility] [employer] provides no warranty or guarantee of the accuracy or completeness of information in this document.
--- NOTE | 2024-06-09 19:30 | ED.DIZZY1 ---
HPI - Dizziness General Chief Complaint: Dizziness Stated Complaint: Dizziness Time Seen by Provider: 06/09/24 19:24 Source: patient and family Mode of arrival: walk-in Limitations: no limitations History of Present Illness HPI Narrative: patient presents complaining of dizziness. Started about an hour ago. Describes room spinning. Past history of similar episodes. mild headache but no vomiting and has been eating. Has right buddhism headache. Similar headaches in the past . No fever or neck stiffness. No weakness or extremity numbness. States last time she experienced similar dizziness was about one month ago Related Data Home Medications ?Medication ?Instructions ?Recorded ?Confirmed cyclobenzaprine 10 mg tablet 10 mg PO DAILY 06/09/24 06/09/24 omeprazole 40 mg capsule,delayed 40 mg PO DAILY 06/09/24 06/09/24 release promethazine 12.5 mg tablet 12.5 mg PO TID PRN nausea and 06/09/24 06/09/24 vomiting Allergies Allergy/AdvReac Type Severity Reaction Status Date / Time penicllin Allergy Mild Rash Uncoded 01/14/24 01:03 Review of Systems ROS Status of ROS 10 or more systems reviewed and unremarkable except as noted in history and below Exam Constitutional Vital Signs, click to edit/add: Last Vital Signs Temp 98.4 F 06/09/24 19:20 Pulse 108 H 06/10/24 00:55 Resp 20 06/10/24 00:55 BP 132/80 06/10/24 00:55 Pulse Ox 97 06/10/24 00:55 O2 Del Method Room Air 06/10/24 00:55 Common normals: no apparent distress, average body habitus, oriented x3, no limitations, healthy appearing, alert and well nourished [facility] Common normals: normocephalic, head/scalp atraumatic and hearing grossly normal bilaterally Tympanic membrane: TMs normal bilaterally Eye Common normals: PERRL, EOMs intact bilaterally and conjunctivae normal Respiratory Common normals: normal respiratory effort, no retractions, no use of accessory muscles and clear to auscultation bilaterally Cardio Common normals: regular rate, regular rhythm, S1 normal heart sound and S2 normal heart sound GI Common normals: Normal to inspection, nondistended, normoactive bowel sounds present, soft to palpation and non-tender Extremity Common normals: normal to inspection and full ROM Neuro Common normals: oriented x3, CN's II-XII intact bilaterally, moves all extremities and no focal motor deficits Psych Appearance: grossly normal Course Vital Signs Vital signs: Vital Signs Temperature 98.4 F 06/09/24 19:20 Pulse Rate 93 H 06/09/24 19:20 Respiratory Rate 18 06/09/24 19:20 Blood Pressure 103/81 06/09/24 19:20 Pulse Oximetry 97 06/09/24 19:20 Oxygen Delivery Method Room Air 06/09/24 19:20 Temperature 98.4 F 06/09/24 19:20 Pulse Rate 108 H 06/10/24 00:55 Respiratory Rate 20 06/10/24 00:55 Blood Pressure 132/80 06/10/24 00:55 Pulse Oximetry 97 06/10/24 00:55 Oxygen Delivery Method Room Air 06/10/24 00:55 MDM - Dizziness MDM Narrative Medical decision making narrative: patient presents with vertiginous symptoms. Past history of similar and also has a headache. Similar to past headaches. Treated with solumedrol and antivert and her dizziness has improved. Headache has improved some. States she has medicine at home she can use for her headache. Discharged home in improved condition and advised to follow up with her doctor Lab Data Labs: Lab Results 06/09/24 Range/Units 19:42 WBC 11.7 H (4.0-11.0) 10^3/uL RBC 4.90 (4.20-5.40) 10^6/uL Hgb 13.7 (12.0-16.0) g/dL Hct 42.4 (36.0-48.0) % MCV 86.5 (81.0-99.0) fL MCH 28.0 (26.7-34.0) pg MCHC 32.3 (29.9-35.2) g/dL RDW 13.4 (11.0-15.0) % Plt Count 320 (150-450) 10^3/uL MPV 10.1 (9.5-13.5) fL Neut % (Auto) 58.2 (43.0-75.0) % Lymph % (Auto) 32.2 (20.5-60.0) % [place] % (Auto) 6.1 (1.7-12.0) % Eos % (Auto) 2.1 (0.9-7.0) % Baso % (Auto) 0.7 (0.2-2.0) % Neut # (Auto) 6.8 H (1.4-6.5) 10^3/uL Lymph # (Auto) 3.8 (1.2-3.8) 10^3/uL [place] # (Auto) 0.7 (0.3-0.8) 10^3/uL Eos # (Auto) 0.3 (0.0-0.7) 10^3/uL Baso # (Auto) 0.1 (0.0-0.1) 10^3/uL Abs Immat Gran (auto) 0.08 H (0.00-0.03) 10^3/uL Imm/Tot Granulo (auto) 0.7 H (0.0-0.5) % Sodium 138 (136-145) mmol/L Potassium 3.7 (3.5-5.1) mmol/L Chloride 102 (98-107) mmol/L Carbon Dioxide 29.7 (21.0-32.0) mmol/L Anion Gap 10.0 BUN 9.0 (7.0-18.0) mg/dL Creatinine 0.91 (0.55-1.02) mg/dL Est GFR ( Amer) >60 (>=60) Est GFR (Non-Af Amer) >60 (>=60) BUN/Creatinine Ratio 9.9 Glucose 81 (74-106) mg/dL Calcium 8.9 (8.5-10.1) mg/dL Discharge Plan Discharge Stand Alone Forms: Work/School Release, Portal Instructions Chief Complaint: Dizziness Clinical Impression: Vertigo, Headache Patient Disposition: Home, Self-Care Prescriptions / Home Meds: No Action omeprazole 40 mg capsule,delayed release(DR/EC) 40 mg PO DAILY cyclobenzaprine 10 mg tablet 10 mg PO DAILY promethazine 12.5 mg tablet 12.5 mg PO TID PRN (Reason: nausea and vomiting) Rx Instructions: 3 doses during day; last dose no later than 4 hr before bedtime Print Language: Divehi Instructions: Vertigo (ED), Acute Headache (ED) Additional Instructions: follow up with your doctor in next 1-2 days for recheck Referrals: Manuel Schwartz MD [Primary Care Provider] - 1 week
--- NOTE | 2024-06-09 19:54 | ECG_ITS ---
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
[2024-06-09] MEDS: 0.9 % SODIUM CHLORIDE 1,000 ML 999 ML IV (19:56)
[2024-06-09] MEDS: MECLIZINE HCL 12.5 MG TABLET 25 MG PO (19:58)
[2024-06-09] MEDS: METHYLPREDNISOLONE SOD SUCC PF 125 MG/2 ML VIAL IVP (19:58)
[2024-06-09 20:01] LABS: Basophils Absolute Auto 0.1 10^3/uL (0.0-0.1); Basophils Percent Auto 0.7 % (0.2-2.0); Eosinophils Absolute Auto 0.3 10^3/uL (0.0-0.7); Eosinophils Percent Auto 2.1 % (0.9-7.0); Hematocrit 42.4 % (36.0-48.0); Hemoglobin 13.7 g/dL (12.0-16.0); Immature Granulocytes Abs Auto 0.08 10^3/uL (0.00-0.03); Immature Granulocytes Pct Auto 0.7 % (0.0-0.5); Lymphocytes Absolute Auto 3.8 10^3/uL (1.2-3.8); Lymphocytes Percent Auto 32.2 % (20.5-60.0); Mean Corpuscular HGB Conc 32.3 g/dL (29.9-35.2); Mean Corpuscular Volume 86.5 fL (81.0-99.0); Mean Platelet Volume 10.1 fL (9.5-13.5); Monocytes Absolute Auto 0.7 10^3/uL (0.3-0.8); Monocytes Percent Auto 6.1 % (1.7-12.0); Neutrophils Absolute Auto 6.8 10^3/uL (1.4-6.5); Neutrophils Percent Auto 58.2 % (43.0-75.0); Platelet Count 320 10^3/uL (150-450); Red Cell Distribution Width 13.4 % (11.0-15.0); White Blood Count 11.7 10^3/uL (4.0-11.0)
[2024-06-09 20:12] LABS: BUN Creatinine Ratio 9.9; Calcium 8.9 mg/dL (8.5-10.1); Carbon Dioxide 29.7 mmol/L (21.0-32.0); Chloride 102 mmol/L (98-107); Estimated GFR (African America >60 (>=60); Estimated GFR (Non-African Ame >60 (>=60); Glucose 81 mg/dL (74-106); Potassium 3.7 mmol/L (3.5-5.1); Sodium 138 mmol/L (136-145)
[2024-06-09] MEDS: KETOROLAC TROMETHAMINE 30 MG/ML VIAL IVP (23:01)
[2024-06-09] MEDS: 0.9 % SODIUM CHLORIDE 1,000 ML 1000 ML IV (23:01)
[2024-06-10] MEDS: MAGNESIUM SULFATE IN WATER 2 GM/50 ML PREMIX IV (00:02)
[2024-06-10 00:55] VITALS: BP 132/80; PULSE 108; O2SAT 97
== END 2024-06-10 01:46 | disposition home or self-care (01) ==
PROVIDERS: Emergency Provider Internal Medicine; PCP Family Medicine
DX: R42 Dizziness and giddiness (principal); R51.9 Headache, unspecified
CPT/HCPCS: 36415; 80048; 85025; 93005; 96361; 96365; 96375; 99284; J1885; J2919; J3475

== ENCOUNTER 2024-07-01 00:04 | Emergency (ER) | payer OTHER, SELFPAY ==
[2024-07-01 00:14] VITALS: BP 125/97; PULSE 79; TEMP 36.6; O2SAT 98
--- OUTSIDE RECORDS SUMMARY | 2024-07-01 00:18 | XMS_ITS | CCD ---
Author Organization [facility] Care Team Providers Care Cracking Still Operator Name Role Phone MISC, DR WILLS Attending [...] Drug allergy (disorder) 01-21-2019 [facility] Repository (1 source) Penicillins Drug allergy (disorder) 11-20-2017 [facility] Repository Problems Active Problems Problem [...] 02-28-20 ABSOLUTE BASOPHIL 0.1 X10E9/L Normal 0.0-0.2 [facility] Comment on above: Performed By: #### C DONG, 3039-3, , CBCA #### [facility] ([id number]) [address] [place] [address], [place] [address] ABSOLUTE NEUTROPHIL 8.4 X10E9/L High 1.5-6.6 [facility] Comment on above: Performed By: #### C DONG, 0-3, , CBCA #### [facility] ([id number]) [address] [place] [address] 14724 Basophils/100 WBC (Bld) 0.9 % Normal [facility] Comment on above: Performed By: #### C DONG, 3039-12, , CBCA #### [facility] ([id number]) [address] [place] [address] 18364 Eosinophils (Bld) [#/Vol] 0.2 10*3/uL Normal 0.0-0.4 [facility] Comment on above: Performed By: #### C DONG, 3039-12, , CBCA #### [facility] ([id number]) [address] [place] [address] 27471 Eosinophils/100 WBC (Bld) 2.1 % Normal [facility] Comment on above: Performed By: #### C DONG, 3039-12, , CBCA #### [facility] ([id number]) [address] [place] [address] 65142 Erythrocyte distribution width (RBC) [Ratio] 14.8 % Normal 11.5-15.0 [facility] Comment on above: Performed By: #### C DONG, 3039-12, , CBCA #### [facility] ([id number]) [address] [place] [address] 11408 Hematocrit (Bld) [Volume fraction] 38.8 % Normal 35-47 [facility] Comment on above: Performed By: #### C DONG, 3039-12, , CBCA #### [facility] ([id number]) [address] [place] [address] 76204 Hemoglobin (Bld) [Mass/Vol] 12.7 g/dL Normal 11.7-15.5 [facility] Comment on above: Performed By: #### C DONG, 3039-12, , CBCA #### [facility] ([id number]) [address] [place] [address] 02856 Lymphocytes (Bld) [#/Vol] 2.0 10*3/uL Normal 1.0-3.5 [facility] Comment on above: Performed By: #### C DONG, 3039-12, , CBCA #### [facility] ([id number]) [address] [place] [address] 99198 Lymphocytes/100 WBC (Bld) 17.0 % Normal [facility] Comment on above: Performed By: #### C DONG, 3039-12, , CBCA #### [facility] ([id number]) [address] [place] [address] 93362 MCH (RBC) [Entitic mass] 27.8 pg Normal 27-34 [facility] Comment on above: Performed By: #### C DONG, 3039-12, , CBCA #### [facility] ([id number]) [address] [place] [address] 64416 MCHC (RBC) [Mass/Vol] 32.8 g/dL Normal 32-36 [facility] Comment on above: Performed By: #### C DONG, 3039-12, , CBCA #### [facility] ([id number]) [address] [place] [address] 88435 MCV (RBC) [Entitic vol] 85 fL Normal 80-100 [facility] Comment on above: Performed By: #### Ginger UMANA, 3039-12, , CBCA #### [facility] ([id number]) [address] [place] [address] 85298 Monocytes (Bld) [#/Vol] 0.7 10*3/uL Normal 0-0.9 [facility] Comment on above: Performed By: #### C MP, 3039-12, , CBCA #### [facility] ([id number]) [address] [place] [address] 44544 Monocytes/100 WBC (Bld) 6.4 % Normal [facility] Comment on above: Performed By: #### C DONG, 3039-12, , CBCA #### [facility] ([id number]) [address] [place] [address] 65589 Neutrophils/100 WBC (Bld) 73.6 % Normal [facility] Comment on above: Performed By: #### C DONG, 3039-12, , CBCA #### [facility] ([id number]) [address] [place] [address] 00936 Platelet mean volume (Bld) [Entitic vol] 8.3 fL Normal 7-12 [facility] Comment on above: Performed By: #### C DONG, 3039-12, , CBCA #### [facility] ([id number]) [address] [place] [address] 43698 Platelets (Bld) [#/Vol] 297 10*3/uL Normal 150-450 [facility] Comment on above: Performed By: #### C DONG, 3039-12, , CBCA #### [facility] ([id number]) [address] [place] [address] 73831 RBC COUNT 4.58 X10E12/L Normal 3.80-5.20 [facility] Comment on above: Performed By: #### C MP, 3039-12, , CBCA #### [facility] ([id number]) [address] [place] [address] 40542 WBC (Bld) [#/Vol] 11.4 10*3/uL High 4.0-11.0 [facility] Comment on above: Performed By: #### C DONG, 3039-12, , CBCA #### [facility] ([id number]) [address] [place] [address] 51776 COMPREHENSIVE METABOLIC PANE Carlin 02-28-2024 Albumin [Mass/Vol] 4.0 g/dL Normal 3.2-5.3 [facility] Comment on above: Performed By: #### C DONG, 3039-12, , CBCA #### [facility] ([id number]) [address] [place] [address] 16734 ALP [Catalytic activity/Vol] 87 U/L Normal 39-130 [facility] Comment on above: Performed By: #### C DONG, 3039-12, , CBCA #### [facility] ([id number]) [address] [place] [address] 57437 ALT [Catalytic activity/Vol] 20 U/L Normal 0-31 [facility] Comment on above: Performed By: #### C DONG, 3039-12, , CBCA #### [facility] ([id number]) [address] [place] [address] 59772 Anion gap [Moles/Vol] 11 mmol/L Normal 5-15 [facility] Comment on above: Performed By: #### C DONG, 3039-12, , CBCA #### [facility] ([id number]) [address] [place] [address] 93122 AST [Catalytic activity/Vol] 27 U/L Normal 0-41 [facility] Comment on above: Performed By: #### C DONG, 3039-12, , CBCA #### [facility] ([id number]) [address] [place] [address] 14821 Bilirubin [Mass/Vol] 0.8 mg/dL Normal 0.3-1.2 [facility] Comment on above: Result Comment: RESU LTS QUESTIONABLE DUE TO HEMOLYSIS Performed By: #### C DONG, 3039-12, , CBCA #### [facility] ([id number]) [address] [place] [address] 63945 Calcium [Mass/Vol] 8.5 mg/dL Normal 8.5-10.5 [facility] Comment on above: Performed By: #### C DONG, 3039-12, , CBCA #### [facility] ([id number]) [address] [place] [address] 12237 Chloride [Moles/Vol] 106 mmol/L Normal 98-109 [facility] Comment on above: Performed By: #### C DONG, 3039-12, , CBCA #### [facility] ([id number]) [address] [place] [address] 05901 CO2 [Moles/Vol] 18 mmol/L Low 22-32 [facility] Comment on above: Performed By: #### C DONG, 3039-12, , CBCA #### [facility] ([id number]) [address] [place] [address] 90017 Creatinine [Mass/Vol] 0.60 mg/dL Normal 0.40-1.00 [facility] Comment on above: Result Comment: METH OD TRACEABLE TO IDMS STANDARD Performed By: #### C DONG, 3039-12, , CBCA #### [facility] ([id number]) [address] [place] [address] 89716 eGFR (CKD-EPI) NON-RACE DEPENDENT >90 Normal >59 [facility] Comment on above: Result Comment: Reported eGFR is based on the CKD-EPI 2020 equation that does not use a race coefficient. Performed By: #### C DONG, 3039-12, , CBCA #### [facility] ([id number]) [address] [place] [address] 18610 Glucose [Mass/Vol] 84 mg/dL Normal 65-99 [facility] Comment on above: Performed By: #### C DONG, 3, , CBCA #### [facility] ([id number]) [address] [place] [address] 67588 Potassium [Moles/Vol] 4.5 mmol/L Normal 3.5-5.0 [facility] Comment on above: Result Comment: SPEC IMEN HEMOLYZED, RESULTS INCREASED Performed By: #### C DONG, 3039-12, , CBCA #### [facility] ([id number]) [address] [place] [address] 10827 Protein [Mass/Vol] 7.8 g/dL Normal 6.0-8.0 [facility] Comment on above: Performed By: #### C DONG, 3039-12, , CBCA #### [facility] ([id number]) [address] [place] [address] 94776 Sodium [Moles/Vol] 135 mmol/L Normal 134-146 [facility] Comment on above: Performed By: #### C DONG, 3039-12, , CBCA #### [facility] ([id number]) [address] [place] [address] 07476 Urea nitrogen [Mass/Vol] 12 mg/dL Normal 5-23 [facility] Comment on above: Performed By: #### C DONG, 3039-12, , CBCA #### [facility] ([id number]) [address] [place] [address] ABDOMEN AND PELVIS W CONT on [...] Crawford MD on 02/28/2024 3:45 AM Normal [facility] HCG ( test) Ql (U)o n 02-28-2024 Beta HCG ( test) Ql (U) Negative Normal NEG [facility] Comment on above: Performed By: #### 2 106-3 #### [facility] ([id number]) [address] [place] [address] 55082 LIPASEon 02-28-2024 Lipase [Catalytic activity/Vol] 28 U/L Normal 17-40 [facility] Comment on above: Performed By: #### C DONG, 3040-3, , CBCA #### [facility] ([id number]) [address] [place] [address] 03837 MAGNESIUMon 02-28-2024 Magnesium [Mass/Vol] 2.1 mg/dL Normal 1.8-2.6 [facility] Comment on above: Performed By: #### C DONG, 3040-3, , CBCA #### [facility] ([id number]) [address] [place] [address] 16697 URN MACROSCOPIC NURon 2023 BILIRUBIN MOLLY Negative Normal NEG [facility] Comment on above: Performed By: #### N UM #### [facility] ([id number]) [address] [place] [address] [place] [address] BLOOD/HGB MOLLY Trace Abnormal NEG [facility] Comment on above: Performed By: #### N UM #### [facility] ([id number]) [address] [place] [address] [place] [address] GLUCOSE MOLLY Negative Normal NEG [facility] Comment on above: Performed By: #### N UM #### [facility] ([id number]) [address] [place] [address] [place] [address] KETONES MOLLY Negative Normal NEG [facility] Comment on above: Performed By: #### N UM #### [facility] ([id number]) [address] [place] [address] [place] [address] LEUKOCYTE ESTERASE MOLLY Negative Normal NEG [facility] Comment on above: Performed By: #### N UM #### [facility] ([id number]) [address] [place] [address] [place] [address] NITRITE MOLLY Negative Normal NEG [facility] Comment on above: Performed By: #### N UM #### [facility] ([id number]) [address] [place] [address] [place] [address] PH MOLLY 5.5 Normal 5.0-8.5 [facility] Comment on above: Performed By: #### N UM #### [facility] ([id number]) [address] [place] [address] [place] [address] PROTEIN MOLLY >=300 Abnormal NEG [facility] Comment on above: Performed By: #### N UM #### [facility] ([id number]) [address] [place] [address] [place] [address] SPECIFIC GRAVITY MOLLY >=1.030 Normal 1.003-1.035 [facility] Comment on above: Performed By: #### N UM #### [facility] ([id number]) [address] [facility], [place] [address] UROBILINOGEN MOLLY 0.2 eu/dL Normal <1.1 [facility] Comment on above: Performed By: #### N UM #### [facility] ([id number]) [address] [facility], [place] [address] PRBC LEUKOREDUCEDon 12-25-19 23 ABO and Rh group Nom (Bld) Cross Match Result Compatible Unit Blood Type O Pos Unit Number [id number] Status Information Transfused Product ID Red Blood Cells Product Code [id number] Cross Match Result Compatible Unit Blood Type O Pos Unit Number [id number] Status Information Transfused Product ID Red Blood Cells Product Code [id number] Normal [facility] Comment on above: Performed By: #### P RBC ####[facility] I[address] [place], [place] [address]Dr. Benoit Diggs CBC AUTO DIFFon 12-21-2022 BASO # 0.1 103/ul Normal 0.0-0.1 [facility] Comment on above: Performed By: #### C BC ####[facility] [address] [place], [place] [address]Dr. Benoit Diggs Basophils/100 WBC (Bld) 1.2 % Normal 0.2-2.0 [facility] Comment on above: Performed By: #### C BC ####[facility] [address] [place], [place] [address]Dr. Benoit Diggs EO # 0.4 103/ul Normal 0.0-0.7 [facility] Comment on above: Performed By: #### C BC ####[facility] [address] [place], [place] [address]Dr. Benoit Diggs Eosinophils/100 WBC (Bld) 4.5 % Normal 0.9-7.0 [facility] Comment on above: Performed By: #### C BC ####[facility] [address] [place], [place] [address]Dr. Benoit Diggs Erythrocyte distribution width (RBC) [Ratio] 16.6 % Critically high 11.0-15.0 [facility] Comment on above: Performed By: #### C BC ####[facility] [address] [place] [address]DrJael Diggs Hematocrit (Bld) [Volume fraction] 40.3 % Normal 36.0-48.0 [facility] Comment on above: Performed By: #### C BC ####[facility] [address] [place] [address]DrJael Diggs Hemoglobin (Bld) [Mass/Vol] 12.6 g/dL Normal 12.0-16.0 [facility] Comment on above: Performed By: #### C BC ####[facility] [address] [place], [place] [address]DrJael Diggs IG # 0.04 10e3/ul Critically high 0.00-0.03 [facility] Comment on above: Performed By: #### C BC ####[facility] [address] [place], [place] [address]DrJael Diggs IG % 0.5 % Normal 0.0-0.5 [facility] Comment on above: Performed By: #### C BC ####[facility] [address] [place], [place] [address]DrJael Diggs LYMPH # 3.0 103/ul Normal 1.2-3.8 [facility] Comment on above: Performed By: #### C BC ####[facility] [address] [place], [place] [address]DrJael Diggs Lymphocytes/100 WBC (Bld) 36.0 % Normal 20.5-60.0 [facility] Comment on above: Performed By: #### C BC ####[facility] [address] [place], [place] [address]DrJael Diggs MANUAL DIFF REQ NO Normal [facility] Comment on above: Performed By: #### C BC ####[facility] [address] [place] [address]DrJael Diggs MCH (RBC) [Entitic mass] 25.3 pg Critically low 26.7-34.0 [facility] Comment on above: Performed By: #### C BC ####[facility] [address] [place] [address]DrJael Diggs MCHC (RBC) [Mass/Vol] 31.3 g/dL Normal 29.9-35.2 [facility] Comment on above: Performed By: #### C BC ####[facility] [address] [place], [place] [address]DrJael Diggs MCV (RBC) [Entitic vol] 80.9 fL Critically low 81.0-99.0 [facility] Comment on above: Performed By: #### C BC ####[facility] [address] [place], [place] [address]DrJael Diggs MONO # 0.4 103/ul Normal 0.3-0.8 [facility] Comment on above: Performed By: #### C BC ####[facility] [address] [place], [place] [address]DrJael Diggs Monocytes/100 WBC (Bld) 4.8 % Normal 1.7-12.0 [facility] Comment on above: Performed By: #### C BC ####[facility] [address] [place], [place] [address]DrJael Diggs NEUT # 4.4 103/ul Normal 1.4-6.5 [facility] Comment on above: Performed By: #### C BC ####[facility] [address] [place], [place] [address]DrJael Diggs Neutrophils/100 WBC (Bld) 53.0 % Normal 43.0-75.0 [facility] Comment on above: Performed By: #### C BC ####[facility] [address] [place], [place] [address]DrJael Diggs Platelet mean volume (Bld) [Entitic vol] 10.8 fL Normal 9.5-13.5 [facility] Comment on above: Performed By: #### C BC ####[facility] [address] [place], [place] [address]DrJael Diggs PLT 410 103/ul Normal 150-450 [facility] Comment on above: Performed By: #### C BC ####[facility] [address] [place] [id number]. Benoit Diggs RBC 4.98 106/ul Normal 4.20-5.40 [facility] Comment on above: Performed By: #### C BC ####[facility] [address] [place] [address]Dr. Benoit Diggs WBC 8.3 103/ul Normal 4.0-11.0 [facility] Comment on above: Performed By: #### C BC ####[facility] [address] [place] [id number]. Benoit Diggs GLYCOHEMOGLOBIN A1Con 2022 ADA RECOMMENDATION SEE BELOW Normal [facility] Comment on above: Result Comment: ADA RECOMMENDED LIMIT 4.0 - 6.0 ADA THERAPEUTIC TARGET < 7.0 ACTION SUGGESTED > 7.0 Performed By: #### A 1C ####[facility] [address] [place] [address]Dr. Benoit Diggs Glucose [Mass/Vol] 100 mg/dL Normal [facility] Comment on above: Performed By: #### A 1C ####[facility] [address] [place] [address]Dr. Benoit Diggs HbA1c (Bld) [Mass fraction] 5.1 % Normal 4.5-6.2 [facility] Comment on above: Performed By: #### A 1C ####[facility] [address] [place] [id number]. Benoit Diggs LIPID PROFILEon 12-21-2022 CHOL-HDL RATIO NORM SEE BELOW Normal [facility] Comment on above: Result Comment: 3.3 - 4.4 LOW RISK 4.4 - 7.1 AVERAGE RISK 7.1 - 11.0 MODERATE RISK >11.0 HIGH RISK Performed By: #### L IVER, LIPID, BMP, TSH ####[facility] [address] [place] [id number]. Benoit Diggs Cholesterol [Mass/Vol] 184 mg/dL Normal <=200 [facility] Comment on above: Performed By: #### L IVER, LIPID, BMP, TSH ####[facility] [address] [place] [address]Dr. Benoit Dontae Cholesterol in HDL [Mass/Vol] 52 mg/dL Normal 40-60 [facility] Comment on above: Performed By: #### L IVER, LIPID, BMP, TSH ####[facility] [address] [place] [address]Dr. Karyaurora Dontae Cholesterol in LDL [Mass/Vol] 114.8 mg/dL Normal [facility] Comment on above: Performed By: #### L IVER, LIPID, BMP, TSH ####[facility] [address] [place] [address]Dr. Benoit Diggs Cholesterol.total/Ch olesterol in HDL [Mass ratio] 3.5 {ratio} Normal [facility] Comment on above: Performed By: #### L IVER, LIPID, BMP, TSH ####[facility] [address] [place] [address]Dr. Benoit Diggs HDL NORMAL > or = 60 mg/dl - LO W CARDIOVASCULAR RISK <40 mg/dl - HIGH CARDIOVASCULAR RISK Normal [facility] Comment on above: Performed By: #### L IVER, LIPID, BMP, TSH ####[facility] [address] [place] [address]Dr. Benoit Diggs LDL CALC NORMAL SEE BELOW Normal [facility] Comment on above: Result Comment: <100 mg/dl OPTIMAL 100 - 129 mg/dl NEAR OR ABOVE OPTIMAL 130 - 159 mg/dl BORDERLINE HIGH 160 - 189 mg/dl HIGH >190 mg/dl VERY HIGH Performed By: #### L IVER, LIPID, BMP, TSH ####[facility] [address] [place] [address]Dr. Benoit Diggs Triglyceride [Mass/Vol] 86 mg/dL Normal <=150 [facility] Comment on above: Performed By: #### L IVER, LIPID, BMP, TSH ####[facility] [address] [place] [address]Dr. Benoit Diggs VLDL CALC 17.2 mg/dL Normal [facility] Comment on above: Performed By: #### L IVER, LIPID, BMP, TSH ####[facility] [address] [place] [address]Dr. Benoit Diggs LIVER PROFILEon 12-21-2022 Albumin [Mass/Vol] 3.3 g/dL Critically low 3.4-5.0 [facility] Comment on above: Performed By: #### L IVER, LIPID, BMP, TSH ####[facility] [address] [place] [address]Dr. Benoit Diggs Albumin/Globulin [Mass ratio] 0.8 {ratio} Normal [facility] Comment on above: Performed By: #### L IVER, LIPID, BMP, TSH ####[facility] [address] [place] [address]Dr. Karyaurora Diggs ALP [Catalytic activity/Vol] 110 U/L Normal 46-116 [facility] Comment on above: Performed By: #### L IVER, LIPID, BMP, TSH ####[facility] [address] [place], [place] [address]Dr. Karyaurora Diggs ALT [Catalytic activity/Vol] 25 U/L Normal 14-59 [facility] Comment on above: Performed By: #### L IVER, LIPID, BMP, TSH ####[facility] [address] [place] [address]Dr. Karyaurora Diggs AST [Catalytic activity/Vol] 20 U/L Normal 15-37 [facility] Comment on above: Performed By: #### L IVER, LIPID, BMP, TSH ####[facility] [address] [place] [address]Dr. Benoit Diggs BILI, CONJUGATED 0.1 mg/dL Normal 0.0-0.2 [facility] Comment on above: Performed By: #### L IVER, LIPID, BMP, TSH ####[facility] [address] [place] [address]Dr. Benoit Diggs Bilirubin [Mass/Vol] 0.4 mg/dL Normal 0.2-1.0 [facility] Comment on above: Performed By: #### L IVER, LIPID, BMP, TSH ####[facility] [address] [place] [id number]. Benoit Diggs Globulin (S) [Mass/Vol] 3.9 g/dL Normal [facility] Comment on above: Performed By: #### L IVER, LIPID, BMP, TSH ####[facility] [address] [place] [id number]. Benoit Diggs Protein [Mass/Vol] 7.2 g/dL Normal 6.4-8.2 [facility] Comment on above: Performed By: #### L IVER, LIPID, BMP, TSH ####[facility] [address] [place] [address]Dr. Benoit Diggs PROF CHEM 8 (BAS METB)on Anion gap [Moles/Vol] 13.2 mmol/L Normal [facility] Comment on above: Performed By: #### C BC #### [facility] [address] [place] [address] [address] Benoit Diggs Calcium [Mass/Vol] 9.2 mg/dL Normal 8.5-10.1 [facility] Comment on above: Performed By: #### C BC #### [facility] [address] [place] [address] [address] Benoit Diggs Chloride [Moles/Vol] 108 mmol/L Critically high 98-107 [facility] Comment on above: Performed By: #### C BC #### [facility] [address] [place] [address] [address] Benoit Diggs CO2 [Moles/Vol] 27.9 mmol/L Normal 21.0-32.0 [facility] Comment on above: Performed By: #### C BC #### [facility] [address] [address] [address] Benoit Diggs Creatinine [Mass/Vol] 0.62 mg/dL Normal 0.55-1.02 [facility] Comment on above: Performed By: #### C BC #### [facility] [address] [address] [address] Benoit Diggs EGFR-AF VIET[place]ESE >60 Normal >=60 [facility] Comment on above: Performed By: #### C BC #### [facility] [address] [place] [address] Dr. Benoit Diggs EGFR-NON AF VIET[place]ESE >60 Normal >=60 [facility] Comment on above: Performed By: #### C BC #### [facility] [address] [address] [address] Benoit Diggs Glucose [Mass/Vol] 92 mg/dL Normal 74-106 [facility] Comment on above: Performed By: #### C BC #### [facility] [address] [address] [address] Benoit Diggs Potassium [Moles/Vol] 4.1 mmol/L Normal 3.5-5.1 [facility] Comment on above: Performed By: #### C BC #### [facility] [address] [place] [address] Dr. Benoit Diggs Sodium [Moles/Vol] 145 mmol/L Normal 136-145 [facility] Comment on above: Performed By: #### C BC #### [facility] [address] [place] [address] Dr. Benoit Diggs Urea nitrogen [Mass/Vol] 8.0 mg/dL Normal 7.0-18.0 [facility] Comment on above: Performed By: #### C BC #### [facility] [address] [place] [address] Dr. Benoit Diggs Urea nitrogen/Creatinine [Mass ratio] 12.9 mg/mg Normal [facility] Comment on above: Performed By: #### C BC #### [facility] [address] [place] [address] Dr. Benoit Diggs TSHon 12-21-2022 TSH 1.318 uIU/mL Normal 0.358-3.740 [facility] Comment on above: Performed By: #### C BC #### [facility] [address] [place] [address] Dr. Benoit Diggs CBC AUTO DIFFon 12-04-2022 BASO # 0.1 103/ul Normal 0.0-0.1 [facility] Comment on above: Performed By: #### C BC #### [facility] [address] [place] [address] Dr. Benoit Diggs Basophils/100 WBC (Bld) 0.7 % Normal 0.2-2.0 [facility] Comment on above: Performed By: #### C BC #### [facility] [address] [place] [address] Dr. Benoit Diggs EO # 0.4 103/ul Normal 0.0-0.7 [facility] Comment on above: Performed By: #### C BC #### [facility] [address] [place] [address] Dr. Benoit Diggs Eosinophils/100 WBC (Bld) 3.8 % Normal 0.9-7.0 [facility] Comment on above: Performed By: #### C BC #### [facility] [address] [place] [address] Dr. Benoit Diggs Erythrocyte distribution width (RBC) [Ratio] 15.2 % Critically high 11.0-15.0 [facility] Comment on above: Performed By: #### C BC #### [facility] [address] [place] [address] Dr. Benoit Diggs Hematocrit (Bld) [Volume fraction] 28.7 % Critically low 36.0-48.0 [facility] Comment on above: Performed By: #### C BC #### [facility] [address] [place] [address] Dr. Benoit Diggs Hemoglobin (Bld) [Mass/Vol] 9.1 g/dL Critically low 12.0-16.0 [facility] Comment on above: Performed By: #### C BC #### [facility] [address] [place] [address] Dr. Benoit Diggs IG # 0.05 10e3/ul Critically high 0.00-0.03 [facility] Comment on above: Performed By: #### C BC #### [facility] [address] [place] [address] Dr. Benoit Diggs IG % 0.5 % Normal 0.0-0.5 [facility] Comment on above: Performed By: #### C BC #### [facility] [address] [place] [address] Dr. Benoit Diggs LYMPH # 3.3 103/ul Normal 1.2-3.8 [facility] Comment on above: Performed By: #### C BC #### [facility] [address] [place] [address] Dr. Benoit Diggs Lymphocytes/100 WBC (Bld) 31.8 % Normal 20.5-60.0 [facility] Comment on above: Performed By: #### C BC #### [facility] [address] [place] [address] Dr. Benoit Diggs MANUAL DIFF REQ NO Normal [facility] Comment on above: Performed By: #### C BC #### [facility] [address] [place] [address] Dr. Benoit Diggs MCH (RBC) [Entitic mass] 25.3 pg Critically low 26.7-34.0 [facility] Comment on above: Performed By: #### C BC #### [facility] [address] [place] [address] Dr. Benoit Diggs MCHC (RBC) [Mass/Vol] 31.7 g/dL Normal 29.9-35.2 [facility] Comment on above: Performed By: #### C BC #### [facility] [address] [place] [address] Dr. Benoit Diggs MCV (RBC) [Entitic vol] 79.9 fL Critically low 81.0-99.0 [facility] Comment on above: Performed By: #### C BC #### [facility] [address] [place] [address] Dr. Benoit Diggs MONO # 0.7 103/ul Normal 0.3-0.8 [facility] Comment on above: Performed By: #### C BC #### [facility] [address] [place] [address] Dr. Benoit Diggs Monocytes/100 WBC (Bld) 7.2 % Normal 1.7-12.0 [facility] Comment on above: Performed By: #### C BC #### [facility] [address] [address] [address] Benoit Diggs NEUT # 5.8 103/ul Normal 1.4-6.5 [facility] Comment on above: Performed By: #### C BC #### [facility] [address] [address] [address] Benoit Diggs Neutrophils/100 WBC (Bld) 56.0 % Normal 43.0-75.0 [facility] Comment on above: Performed By: #### C BC #### [facility] [address] [place] [address] Dr. Benoit Diggs Platelet mean volume (Bld) [Entitic vol] 10.5 fL Normal 9.5-13.5 [facility] Comment on above: Performed By: #### C BC #### [facility] [address] [place] [address] Dr. Benoit Diggs PLT 152 103/ul Normal 150-450 [facility] Comment on above: Performed By: #### C BC #### [facility] [address] [place] [address] Dr. Benoit Diggs RBC 3.59 106/ul Critically low 4.20-5.40 [facility] Comment on above: Performed By: #### C BC #### [facility] [address] [place] [address] Dr. Benoit Diggs WBC 10.3 103/ul Normal 4.0-11.0 [facility] Comment on above: Performed By: #### C BC #### [facility] [address] [place] [address] Dr. Benoit Diggs CBC AUTO DIFFon 12-03-2022 BASO # 0.0 103/ul Normal 0.0-0.1 [facility] Comment on above: Performed By: #### C BC #### [facility] [address] [place] [address] Dr. Benoit Diggs Basophils/100 WBC (Bld) 0.4 % Normal 0.2-2.0 [facility] Comment on above: Performed By: #### C BC #### [facility] [address] [place] [address] Dr. Benoit Diggs EO # 0.3 103/ul Normal 0.0-0.7 [facility] Comment on above: Performed By: #### C BC #### [facility] [address] [place] [address] Dr. Benoit Diggs Eosinophils/100 WBC (Bld) 3.1 % Normal 0.9-7.0 [facility] Comment on above: Performed By: #### C BC #### [facility] [address] [place] [address] Dr. Benoit Diggs Erythrocyte distribution width (RBC) [Ratio] 15.5 % Critically high 11.0-15.0 [facility] Comment on above: Performed By: #### C BC #### [facility] [address] [place] [address] Dr. Benoit Diggs Hematocrit (Bld) [Volume fraction] 22.0 % Critically low 36.0-48.0 [facility] Comment on above: Performed By: #### C BC #### [facility] [address] [place] [address] Dr. Benoit Diggs Hemoglobin (Bld) [Mass/Vol] 6.8 g/dL Critically low 12.0-16.0 [facility] Comment on above: Performed By: #### C BC #### [facility] [address] [place] [address] Dr. Benoit Diggs IG # 0.05 10e3/ul Critically high 0.00-0.03 [facility] Comment on above: Performed By: #### C BC #### [facility] [address] [place] [address] Dr. Benoit Diggs IG % 0.5 % Normal 0.0-0.5 [facility] Comment on above: Performed By: #### C BC #### [facility] [address] [place] [address] Dr. Benoit Diggs LYMPH # 2.9 103/ul Normal 1.2-3.8 [facility] Comment on above: Performed By: #### C BC #### [facility] [address] [place] [address] Dr. Benoit Diggs Lymphocytes/100 WBC (Bld) 31.0 % Normal 20.5-60.0 [facility] Comment on above: Performed By: #### C BC #### [facility] [address] [place] [address] Dr. Benoit Diggs MANUAL DIFF REQ NO Normal [facility] Comment on above: Performed By: #### C BC #### [facility] [address] [place] [address] Dr. Benoit Diggs MCH (RBC) [Entitic mass] 24.6 pg Critically low 26.7-34.0 [facility] Comment on above: Performed By: #### C BC #### [facility] [address] [place] [address] Dr. Benoit Diggs MCHC (RBC) [Mass/Vol] 30.9 g/dL Normal 29.9-35.2 [facility] Comment on above: Performed By: #### C BC #### [facility] [address] [place] [address] Dr. Benoit Diggs MCV (RBC) [Entitic vol] 79.7 fL Critically low 81.0-99.0 [facility] Comment on above: Performed By: #### C BC #### [facility] [address] [place] [address] Dr. Benoit Diggs MONO # 0.8 103/ul Normal 0.3-0.8 [facility] Comment on above: Performed By: #### C BC #### [facility] [address] [place] [address] Dr. Benoit Diggs Monocytes/100 WBC (Bld) 7.9 % Normal 1.7-12.0 [facility] Comment on above: Performed By: #### C BC #### [facility] [address] [place] [address] Dr. Benoit Diggs NEUT # 5.4 103/ul Normal 1.4-6.5 [facility] Comment on above: Performed By: #### C BC #### [facility] [address] [address] [address] Benoit Diggs Neutrophils/100 WBC (Bld) 57.1 % Normal 43.0-75.0 [facility] Comment on above: Performed By: #### C BC #### [facility] [address] [address] [address] Benoit Diggs Platelet mean volume (Bld) [Entitic vol] 11.9 fL Normal 9.5-13.5 [facility] Comment on above: Performed By: #### C BC #### [facility] [address] [address] [address] Benoit Diggs PLT 180 103/ul Normal 150-450 [facility] Comment on above: Performed By: #### C BC #### [facility] [address] [address] [address] Benoit Diggs RBC 2.76 106/ul Critically low 4.20-5.40 [facility] Comment on above: Performed By: #### C BC #### [facility] [address] [address] [address] Benoit Diggs WBC 9.5 103/ul Normal 4.0-11.0 [facility] Comment on above: Performed By: #### C BC #### [facility] [address] [place] [address] Dr. Benoit Diggs AMNISUREon 12-01-2022 AMNISURE Negative Normal NEGATIVE [facility] Comment on above: Performed By: #### C BC #### [facility] [address] [address] [address] Benoit Diggs CBC AUTO DIFFon 12-01-2022 BASO # 0.1 103/ul Normal 0.0-0.1 [facility] Comment on above: Performed By: #### C BC ####[facility] [address] [address]Dr. Benoit Diggs Basophils/100 WBC (Bld) 0.6 % Normal 0.2-2.0 [facility] Comment on above: Performed By: #### C BC ####[facility] [address] [id number] Benoit Diggs EO # 0.4 103/ul Normal 0.0-0.7 [facility] Comment on above: Performed By: #### C BC ####[facility] [address] [address]Dr. Benoit Diggs Eosinophils/100 WBC (Bld) 3.5 % Normal 0.9-7.0 [facility] Comment on above: Performed By: #### C BC ####[facility] [address] [address]Dr. Benoit Diggs Erythrocyte distribution width (RBC) [Ratio] 15.4 % Critically high 11.0-15.0 [facility] Comment on above: Performed By: #### C BC ####[facility] [address] [place], [place] [address]Dr. Karyaurora Diggs Hematocrit (Bld) [Volume fraction] 26.4 % Critically low 36.0-48.0 [facility] Comment on above: Performed By: #### C BC ####[facility] [address] [place], [place] [address]Dr. Benoit Diggs Hemoglobin (Bld) [Mass/Vol] 8.4 g/dL Critically low 12.0-16.0 [facility] Comment on above: Performed By: #### C BC ####[facility] [address] [place], [place] [address]Dr. Karyaurora Diggs IG # 0.04 10e3/ul Critically high 0.00-0.03 [facility] Comment on above: Performed By: #### C BC ####[facility] [address] [place], [place] [address]Dr. Karyaurora Diggs IG % 0.4 % Normal 0.0-0.5 [facility] Comment on above: Performed By: #### C BC ####[facility] [address] [place], [place] [address]Dr. Benoit Diggs LYMPH # 2.8 103/ul Normal 1.2-3.8 [facility] Comment on above: Performed By: #### C BC ####[facility] [address] [id number][address] Benoit Diggs Lymphocytes/100 WBC (Bld) 26.9 % Normal 20.5-60.0 [facility] Comment on above: Performed By: #### C BC ####[facility] [address] [id number] Benoit Diggs MANUAL DIFF REQ NO Normal [facility] Comment on above: Performed By: #### C BC ####[facility] [address] [id number] Benoit Diggs MCH (RBC) [Entitic mass] 24.7 pg Critically low 26.7-34.0 [facility] Comment on above: Performed By: #### C BC ####[facility] [address] [address]Dr. Benoit Diggs MCHC (RBC) [Mass/Vol] 31.8 g/dL Normal 29.9-35.2 [facility] Comment on above: Performed By: #### C BC ####[facility] [address] [id number]. Benoit Diggs MCV (RBC) [Entitic vol] 77.6 fL Critically low 81.0-99.0 [facility] Comment on above: Performed By: #### C BC ####[facility] [address] [id number]. Benoit Dontae MONO # 0.7 103/ul Normal 0.3-0.8 [facility] Comment on above: Performed By: #### C BC ####[facility] [address] [id number]. Benoit Diggs Monocytes/100 WBC (Bld) 6.2 % Normal 1.7-12.0 [facility] Comment on above: Performed By: #### C BC ####[facility] [address] [address]Dr. Karyaurora Diggs NEUT # 6.5 103/ul Normal 1.4-6.5 [facility] Comment on above: Performed By: #### C BC ####[facility] [address] [id number]. Benoit Diggs Neutrophils/100 WBC (Bld) 62.4 % Normal 43.0-75.0 [facility] Comment on above: Performed By: #### C BC ####[facility] [address] [id number][address] Benoit Diggs Platelet mean volume (Bld) [Entitic vol] 11.0 fL Normal 9.5-13.5 [facility] Comment on above: Performed By: #### C BC ####[facility] [address] [id number]. Benoit Diggs PLT 215 103/ul Normal 150-450 [facility] Comment on above: Performed By: #### C BC ####[facility] [address] [address]Dr. Benoit Diggs RBC 3.40 106/ul Critically low 4.20-5.40 [facility] Comment on above: Performed By: #### C BC ####[facility] [address] [address]Dr. Benoit Diggs WBC 10.4 103/ul Normal 4.0-11.0 [facility] Comment on above: Performed By: #### C BC ####[facility] [address] [address]DrJael Diggs DRUG SCREEN RAPID (URINE)on 12-01-2022 AMP Negative Normal NEGATIVE [facility] Comment on above: Performed By: #### C BC #### [facility] [address] [address] [address] Benoit Diggs BAR Negative Normal NEGATIVE [facility] Comment on above: Performed By: #### C BC #### [facility] [address] [address] [address] Benoit Diggs BUP Negative Normal NEGATIVE [facility] Comment on above: Performed By: #### C BC #### [facility] [address] [address] [address] Benoit Diggs BZO Negative Normal NEGATIVE [facility] Comment on above: Performed By: #### C BC #### [facility] [address] [place] [address] Dr. Benoit Diggs JOSE MANUEL Negative Normal NEGATIVE [facility] Comment on above: Performed By: #### C BC #### [facility] [address] [place] [address] Dr. Benoit Diggs CUT-OFFS SEE BELOW Normal [facility] Comment on above: Result Comment: AMP [...] By: #### C BC #### [facility] [address] [place] [address] Dr. Benoit Diggs DRUG CUT HEADER DRUG CLASS TEST SYSTEM CUT-OFF CONCENTRATIONS ARE FOLLOWS: Normal [facility] Comment on above: Performed By: #### C BC #### [facility] [address] [place] [address] Dr. Benoit Diggs mAMP Negative Normal NEGATIVE [facility] Comment on above: Performed By: #### C BC #### [facility] [address] [place] [address] Dr. Benoit Diggs MTD Negative Normal NEGATIVE [facility] Comment on above: Performed By: #### C BC #### [facility] [address] [place] [address] Dr. Benoit Diggs OPI Negative Normal NEGATIVE [facility] Comment on above: Performed By: #### C BC #### [facility] [address] [place] [address] Dr. Benoit Diggs OXY Negative Normal NEGATIVE [facility] Comment on above: Performed By: #### C BC #### [facility] [address] [place] [address] Dr. Benoit Diggs PCP Negative Normal NEGATIVE [facility] Comment on above: Performed By: #### C BC #### [facility] [address] [place] [address] Dr. Benoit Diggs PPX Negative Normal NEGATIVE [facility] Comment on above: Performed By: #### C BC #### [facility] [address] [place] [address] Dr. Benoit Diggs TCA Negative Normal NEGATIVE [facility] Comment on above: Performed By: #### C BC #### [facility] [address] [place] [address] Dr. Benoit Diggs THC Negative Normal NEGATIVE [facility] Comment on above: Performed By: #### C BC #### [facility] [address] [place] [address] Dr. Benoit Diggs TYPE AND SCREENon 12-01-2022 TYPE AND SCREEN Negative Normal [facility] Comment on above: Performed By: #### T NS #### [facility] [address] [place] [address] Dr. Benoit Diggs UA (CLEAN/CATCH) MEDICAL STENOGRAPHER/MICRO I F IND.on 12-01-2022 Bilirubin Ql (U) Negative Normal NEGATIVE [facility] Comment on above: Performed By: #### C BC #### [facility] [address] [place] [address] Dr. Benoit Diggs Clarity (U) CLEAR Normal CLEAR [facility] Comment on above: Performed By: #### C BC #### [facility] [facility] [address] [place] [address] Dr. Benoit Diggs Color (U) YELLOW Normal YELLOW [facility] Comment on above: Performed By: #### C BC #### [facility] [address] [place] [address] Dr. Benoit Diggs Glucose Ql (U) Negative Normal NEGATIVE [facility] Comment on above: Performed By: #### C BC #### [facility] [address] [place] [address] Dr. Benoit Diggs Hemoglobin Ql (U) Negative Normal NEGATIVE [facility] Comment on above: Performed By: #### C BC #### [facility] [address] [place] [address] Dr. Benoit Diggs Ketones Ql (U) Negative Normal NEGATIVE The [facility] Comment on above: Performed By: #### C BC #### [facility] [address] [place] [address] Dr. Benoit Diggs LEUKOCYTES Negative Normal NEGATIVE The [facility] Comment on above: Performed By: #### C BC #### [facility] [address] [place] [address] Dr. Benoit Diggs Nitrite Ql (U) Negative Normal NEGATIVE [facility] Comment on above: Performed By: #### C BC #### [facility] [address] [place] [address] Dr. Benoit Diggs pH (U) 6.0 [pH] Normal 5-9 [facility] Comment on above: Performed By: #### C BC #### [facility] [address] [place] [address] Dr. Benoit Diggs SPEC GRAVITY 1.010 Normal 1.005-<=1.025 [facility] Comment on above: Performed By: #### C BC #### [facility] [address] [place] [address] Dr. Benoit Diggs UA PROTEIN TRACE Normal NEGATIVE/ TRACE The [facility] Comment on above: Performed By: #### C BC #### [facility] [address] [place] [address] Dr. Benoit Diggs UR MICRO IND NOT INDICATED Normal [facility] Comment on above: Performed By: #### C BC #### [facility] [address] [place] [address] Dr. Benoit Diggs Urobilinogen Qn (U) 4 {Nadege'U}/dL Abnormal 0.2 - 1.0 [facility] Comment on above: Performed By: #### C BC #### [facility] [address] [place] [address] Dr. Benoit Diggs CULTURE URINEon 11-29-2022 CULTURE URINE Culture Observations : MODERATE GROWTH OF MIXED GENITAL RIZWAN. NO POTENTIAL PATHOGENS SEEN. Normal [facility] Comment on above: Performed By: #### U RCX #### [facility] [address] [place] [address] Dr. Benoit Diggs UA (CLEAN/CATCH) MEDICAL STENOGRAPHER/MICRO I F IND.on 11-29-2022 Bilirubin Ql (U) SMALL Abnormal NEGATIVE [facility] Comment on above: Performed By: #### C BC #### [facility] [address] [place] [address] Dr. Benoit Diggs Clarity (U) CLEAR Normal CLEAR [facility] Comment on above: Performed By: #### C BC #### [facility] [address] [place] [address] Dr. Benoit Diggs Color (U) DK. ORANGE Abnormal YELLOW [facility] Comment on above: Performed By: #### C BC #### [facility] [address] [place] [address] Dr. Benoit Diggs Glucose Ql (U) Negative Normal NEGATIVE [facility] Comment on above: Performed By: #### C BC #### [facility] [address] [place] [address] Dr. Benoit Diggs Hemoglobin Ql (U) Negative Normal NEGATIVE [facility] Comment on above: Performed By: #### C BC #### [facility] [address] [place] [address] Dr. Benoit Diggs Ketones Ql (U) TRACE Abnormal NEGATIVE [facility] Comment on above: Performed By: #### C BC #### [facility] [address] [place] [address] Dr. Benoit Diggs LEUKOCYTES SMALL Abnormal NEGATIVE [facility] Comment on above: Performed By: #### C BC #### [facility] [address] [place] [address] Dr. Benoit Diggs Nitrite Ql (U) Negative Normal NEGATIVE [facility] Comment on above: Performed By: #### C BC #### [facility] [address] [place] [address] Dr. Benoit Diggs pH (U) 5.5 [pH] Normal 5-9 [facility] Comment on above: Performed By: #### C BC #### [facility] [address] [place] [address] Dr. Benoit Diggs SPEC GRAVITY >=1.030 Abnormal 1.005-<=1.025 [facility] Comment on above: Performed By: #### C BC #### [facility] [address] [place] [address] Dr. Benoit Diggs UA PROTEIN 100 mg/dl Abnormal NEGATIVE/ TRACE The [facility] Comment on above: Performed By: #### C BC #### [facility] [address] [place] [address] Dr. Benoit Diggs UR MICRO IND INDICATED Normal [facility] Comment on above: Performed By: #### C BC #### [facility] [address] [place] [address] Dr. Benoit Diggs Urobilinogen Qn (U) 8 {Nadege'U}/dL Abnormal 0.2 - 1.0 [facility] Comment on above: Performed By: #### C BC #### [facility] [address] [place] [address] Dr. Benoit Diggs URINE MICROSCOPIC ONLYon BACTERIA MODERATE Abnormal NONE SEEN The [facility] Comment on above: Performed By: #### C BC #### [facility] [address] [place] [address] Dr. Benoit Diggs Bacteria identified Cx Nom (U) INDICATED Normal [facility] Comment on above: Performed By: #### C BC #### [facility] [address] [place] [address] Dr. Benoit Diggs CAST NONE SEEN Normal NONE SEEN The [facility] Comment on above: Performed By: #### C BC #### [facility] [address] [place] [address] Dr. Benoit Diggs Crystals LM Nom (Urine sed) NONE SEEN Normal NONE SEEN The [facility] Comment on above: Performed By: #### C BC #### [facility] [address] [place] [address] Dr. Benoit Diggs Epithelial cells LM Ql (Urine sed) MANY Abnormal NONE SEEN /RARE The [facility] Comment on above: Performed By: #### C BC #### [facility] [address] [place] [address] Dr. Benoit Diggs MUCOUS SMALL Abnormal NONE SEEN [facility] Comment on above: Performed By: #### C BC #### [facility] [address] [place] [address] Dr. Benoit Diggs RBC 5-10 Abnormal 0-2 [facility] Comment on above: Performed By: #### C BC #### [facility] [address] [place] [address] Dr. Benoit Diggs WBC 20-50 Abnormal NONE SEEN [facility] Comment on above: Performed By: #### C BC #### [facility] [address] [place] [address] Dr. Benoit Diggs GROUP B STREP CULTUREon 10-22 S. agalactiae Ag Ql (Unsp spec) Culture Observations: NEGATIVE FOR GROUP B STREPTOCOCCUS. Normal [facility] Comment on above: Performed By: #### G BSCX #### [facility] [address] [place] [address] Dr. Benoit Diggs CBC AUTO DIFFon 09-22-2022 BASO # 0.0 103/ul Normal 0.0-0.1 [facility] Comment on above: Performed By: #### C BC #### [facility] [address] [place] [address] Dr. Benoit Diggs Basophils/100 WBC (Bld) 0.3 % Normal 0.2-2.0 [facility] Comment on above: Performed By: #### C BC #### [facility] [address] [place] [address] Dr. Benoit Diggs EO # 0.1 103/ul Normal 0.0-0.7 [facility] Comment on above: Performed By: #### C BC #### [facility] [address] [place] [address] Dr. Benoit Diggs Eosinophils/100 WBC (Bld) 2.0 % Normal 0.9-7.0 [facility] Comment on above: Performed By: #### C BC #### [facility] [address] [place] [address] Dr. Benoit Diggs Erythrocyte distribution width (RBC) [Ratio] 12.7 % Normal 11.0-15.0 [facility] Comment on above: Performed By: #### C BC #### [facility] [address] [place] [address] Dr. Benoit Diggs Hematocrit (Bld) [Volume fraction] 30.6 % Critically low 36.0-48.0 [facility] Comment on above: Performed By: #### C BC #### [facility] [address] [place] [address] Dr. Benoit Diggs Hemoglobin (Bld) [Mass/Vol] 10.1 g/dL Critically low 12.0-16.0 [facility] Comment on above: Performed By: #### C BC #### [facility] [address] [place] [address] Dr. Benoit Diggs IG # 0.03 10e3/ul Normal 0.00-0.03 [facility] Comment on above: Performed By: #### C BC #### [facility] [address] [place] [address] Dr. Benoit Diggs IG % 0.5 % Normal 0.0-0.5 [facility] Comment on above: Performed By: #### C BC #### [facility] [address] [place] [address] Dr. Benoit Diggs LYMPH # 0.6 103/ul Critically low 1.2-3.8 [facility] Comment on above: Performed By: #### C BC #### [facility] [address] [place] [address] Dr. Benoit Diggs Lymphocytes/100 WBC (Bld) 10.7 % Critically low 20.5-60.0 [facility] Comment on above: Performed By: #### C BC #### [facility] [address] [place] [address] Dr. Benoit Diggs MANUAL DIFF REQ NO Normal [facility] Comment on above: Performed By: #### C BC #### [facility] [address] [place] [address] Dr. Benoit Diggs MCH (RBC) [Entitic mass] 28.9 pg Normal 26.7-34.0 [facility] Comment on above: Performed By: #### C BC #### [facility] [address] [place] [address] Dr. Benoit Diggs MCHC (RBC) [Mass/Vol] 33.0 g/dL Normal 29.9-35.2 [facility] Comment on above: Performed By: #### C BC #### [facility] [address] [place] [address] Dr. Benoit Diggs MCV (RBC) [Entitic vol] 87.4 fL Normal 81.0-99.0 [facility] Comment on above: Performed By: #### C BC #### [facility] [address] [place] [address] Dr. Benoit Diggs MONO # 0.6 103/ul Normal 0.3-0.8 [facility] Comment on above: Performed By: #### C BC #### [facility] [address] [place] [address] Dr. Benoit Diggs Monocytes/100 WBC (Bld) 10.9 % Normal 1.7-12.0 [facility] Comment on above: Performed By: #### C BC #### [facility] [address] [place] [address] Dr. Benoit Diggs NEUT # 4.4 103/ul Normal 1.4-6.5 [facility] Comment on above: Performed By: #### C BC #### [facility] [address] [place] [address] Dr. Benoit Diggs Neutrophils/100 WBC (Bld) 75.6 % Critically high 43.0-75.0 [facility] Comment on above: Performed By: #### C BC #### [facility] [address] [place] [address] Dr. Benoit Diggs Platelet mean volume (Bld) [Entitic vol] 10.9 fL Normal 9.5-13.5 [facility] Comment on above: Performed By: #### C BC #### [facility] [address] [address] [address] Benoit Diggs PLT 191 103/ul Normal 150-450 [facility] Comment on above: Performed By: #### C BC #### [facility] [address] [place] [address] Dr. Benoit Diggs RBC 3.50 106/ul Critically low 4.20-5.40 [facility] Comment on above: Performed By: #### C BC #### [facility] [address] [place] [address] Dr. Benoit Diggs WBC 5.9 103/ul Normal 4.0-11.0 [facility] Comment on above: Performed By: #### C BC #### [facility] [address] [place] [address] Dr. Benoit Diggs CULTURE URINEon 09-22-2022 CULTURE URINE Culture Observations : HEAVY GROWTH OF MIXED GENITAL RIZWAN. NO POTENTIAL PATHOGENS SEEN. Normal [facility] Comment on above: Performed By: #### U RCX #### [facility] [address] [place] [address] Dr. Benoit Diggs ER URINE PROFILEon Bilirubin Ql (U) Negative Normal NEGATIVE [facility] Comment on above: Performed By: #### H IV12 #### [facility] [address] [place] [address] Dr. Benoit Diggs Clarity (U) CLEAR Normal CLEAR [facility] Comment on above: Performed By: #### H IV12 #### [facility] [address] [place] [address] Dr. Benoit Diggs Color (U) YELLOW Normal YELLOW [facility] Comment on above: Performed By: #### H IV12 #### [facility] [address] [place] [address] Dr. Benoit VELA A micrscopic examination will be performed if indicated. Normal [facility] Comment on above: Performed By: #### H IV12 #### [facility] [address] [place] [address] Dr. Benoit Diggs Glucose Ql (U) Negative Normal NEGATIVE [facility] Comment on above: Performed By: #### H IV12 #### [facility] [address] [address] [address] Benoit Diggs Hemoglobin Ql (U) Negative Normal NEGATIVE [facility] Comment on above: Performed By: #### H IV12 #### [facility] [address] [address] [address] Benoit Diggs Ketones Ql (U) 15 mg/dl Abnormal NEGATIVE [facility] Comment on above: Performed By: #### H IV12 #### [facility] [address] [address] [address] Benoit Diggs LEUKOCYTES Negative Normal NEGATIVE [facility] Comment on above: Performed By: #### H IV12 #### [facility] [address] [place] [address] Dr. Benoit Diggs Nitrite Ql (U) Negative Normal NEGATIVE [facility] Comment on above: Performed By: #### H IV12 #### [facility] [address] [address] [address] Benoit Diggs pH (U) 6.5 [pH] Normal 5-9 [facility] Comment on above: Performed By: #### H IV12 #### [facility] [address] [place] [address] Dr. Benoit Diggs SPEC GRAVITY 1.025 Normal 1.005-<=1.025 [facility] Comment on above: Performed By: #### H IV12 #### [facility] [address] [place] [address] Dr. Benoit Diggs UA PROTEIN TRACE Normal NEGATIVE/ TRACE [facility] Comment on above: Performed By: #### H IV12 #### [facility] [address] [address] [address] Benoit Diggs UR MICRO IND INDICATED Normal [facility] Comment on above: Performed By: #### H IV12 #### [facility] [address] [place] [address] Dr. Benoit Diggs Urobilinogen Qn (U) 1.0 {Nadege'U}/dL Normal 0.2 - 1. 0 [facility] Comment on above: Performed By: #### H IV12 #### [facility] [address] [place] [address] Dr. Benoit Diggs INFLUENZA A AND B AGon 09-22 INFLUANEGH SEE BELOW Normal [facility] Comment on above: Result Comment: Nega tive for Flu A protein angiten. Infection due to Flu A cannot be ruled out. Flu A angiten in the sample may be below the detection limit of the test. Performed By: #### H IV12 #### [facility] [address] [place] [address] Dr. Benoit Diggs INFLUBNEG SEE BELOW Normal [facility] Comment on above: Result Comment: Nega tive for Flu B protein antigen. Infection due to Flu B cannot be ruled out. Flu B antigen in the sample may be below the detection limit of the test. Performed By: #### H IV12 #### [facility] [address] [place] [address] Dr. Benoit Diggs INFLUENZA A AG Negative Normal NEGATIVE SEE COMMENT [facility] Comment on above: Performed By: #### H IV12 #### [facility] [address] [place] [address] Dr. Benoit Diggs INFLUENZA B AG Negative Normal NEGATIVE SEE COMMENT [facility] Comment on above: Performed By: #### H IV12 #### [facility] [address] [place] [address] Dr. Benoit Diggs INTERNAL CONTROLS Within Normal Limits Normal Wi thin Normal Limits [facility] Comment on above: Performed By: #### H IV12 #### [facility] [address] [place] [address] Dr. Benoit Diggs PROF CHEM 8 (BAS METB)on Anion gap [Moles/Vol] 11.6 mmol/L Normal [facility] Comment on above: Performed By: #### C BC #### [facility] [address] [place] [address] Dr. Benoit Diggs Calcium [Mass/Vol] 8.2 mg/dL Critically low 8.5-10.1 Th e [facility] Comment on above: Performed By: #### C BC #### [facility] [address] [address] [address] Benoit Diggs Chloride [Moles/Vol] 100 mmol/L Normal 98-107 [facility] Comment on above: Performed By: #### C BC #### [facility] [address] [address] [address] Benoit Diggs CO2 [Moles/Vol] 23.9 mmol/L Normal 21.0-32.0 [facility] Comment on above: Performed By: #### C BC #### [facility] [address] [address] [address] Benoit Diggs Creatinine [Mass/Vol] 0.48 mg/dL Critically low 0.55-1.02 [facility] Comment on above: Performed By: #### C BC #### [facility] [address] [place] [address] Dr. Benoit Diggs EGFR-AF VIET[place]ESE >60 Normal >=60 [facility] Comment on above: Performed By: #### C BC #### [facility] [address] [place] [address] Dr. Benoit Diggs EGFR-NON AF VIET[place]ESE >60 Normal >=60 [facility] Comment on above: Performed By: #### C BC #### [facility] [address] [place] [address] Dr. Benoit Diggs Glucose [Mass/Vol] 94 mg/dL Normal 74-106 [facility] Comment on above: Performed By: #### C BC #### [facility] [address] [address] [address] Benoit Diggs Potassium [Moles/Vol] 3.5 mmol/L Normal 3.5-5.1 [facility] Comment on above: Performed By: #### C BC #### [facility] [address] [place] [address] Dr. Benoit Diggs Sodium [Moles/Vol] 132 mmol/L Critically low 136-145 [facility] Comment on above: Performed By: #### C BC #### [facility] [address] [place] [address] Dr. Benoit Diggs Urea nitrogen [Mass/Vol] 6.0 mg/dL Critically low 7.0-18.0 [facility] Comment on above: Performed By: #### C BC #### [facility] [address] [address] [address] Benoit Diggs Urea nitrogen/Creatinine [Mass ratio] 12.5 mg/mg Normal [facility] Comment on above: Performed By: #### C BC #### [facility] [address] [address] [address] Benoit Diggs RESPIRATORY PANEL PLUSon Adenovirus Not detected Normal NOT DETECTED [facility] Comment on above: Performed By: #### R SPLUS ####[facility] [id number] [place], [place] [address]Dr. Benoit Diggs B. Parapertusis Not detected Normal NOT DETECTED [facility] Comment on above: Performed By: #### R SPLUS ####[facility] [id number] [place], [place] [address]Dr. Benoit Diggs B. Pertussis Not detected Normal NOT DETECTED [facility] Comment on above: Performed By: #### R SPLUS ####[facility] [id number] [place], [place] [address]Dr. Benoit Diggs Chlamydia Pneumoniae Not detected Normal NOT DETECTED [facility] Comment on above: Performed By: #### R SPLUS ####[facility] [id number] [place], [place] [address]Dr. Benoit Diggs Coronavirus 229E Not detected Normal NOT DETECTED [facility] Comment on above: Performed By: #### R SPLUS ####[facility] [address] [address]Dr. Benoit Diggs Coronavirus HKU1 Not detected Normal NOT DETECTED [facility] Comment on above: Performed By: #### R SPLUS ####[facility] [address] [place], [place] [address]Dr. Benoit Diggs Coronavirus NL63 Not detected Normal NOT DETECTED [facility] Comment on above: Performed By: #### R SPLUS ####[facility] [address] [place], [place] [address]Dr. Benoit Diggs Coronavirus OC43 Not detected Normal NOT DETECTED [facility] Comment on above: Performed By: #### R SPLUS ####[facility] [address] [address]Dr. Benoit Diggs Influenza A H1 2009 Detected Abnormal NOT DETECTED [facility] Comment on above: Performed By: #### R SPLUS ####[facility] [address] [address]Dr. Benoit Diggs Influenza A H3 Not detected Normal NOT DETECTED The [facility] Comment on above: Performed By: #### R SPLUS ####[facility] [address] [address]Dr. Benoit Diggs Influenza B Not detected Normal NOT DETECTED [facility] Comment on above: Performed By: #### R SPLUS ####[facility] [address] [address]Dr. Benoit Diggs Metapneumovirus Not detected Normal NOT DETECTED [facility] Comment on above: Performed By: #### R SPLUS ####[facility] [address] [address]Dr. Benoit Diggs Mycoplas. Pneumoniae Not detected Normal NOT DETECTED [facility] Comment on above: Performed By: #### R SPLUS ####[facility] [address] [address]Dr. Benoit Diggs Parainfluenza 1 Not detected Normal NOT DETECTED [facility] Comment on above: Performed By: #### R SPLUS ####[facility] [address] [address]Dr. Benoit Diggs Parainfluenza 2 Not detected Normal NOT DETECTED [facility] Comment on above: Performed By: #### R SPLUS ####[facility] [address] [address]Dr. Benoit Diggs Parainfluenza 3 Not detected Normal NOT DETECTED [facility] Comment on above: Performed By: #### R SPLUS ####[facility] [address] [place], [place] [address]Dr. Benoit Diggs Parainfluenza 4 Not detected Normal NOT DETECTED [facility] Comment on above: Performed By: #### R SPLUS ####[facility] [address] [address]Dr. Karyaurora Diggs Rhino/Enterovirus Not detected Normal NOT DETECTED [facility] Comment on above: Performed By: #### R SPLUS ####[facility] [address] [address]Dr. Benoit Diggs RP2 Header 1 RESPIRATORY PANEL: VIRUSES Normal [facility] Comment on above: Performed By: #### R SPLUS ####[facility] [address] [address]Dr. Benoit Diggs RP2 Header 2 RESPIRATORY PANEL: BACTERIA Normal [facility] Comment on above: Performed By: #### R SPLUS ####[facility] [address] [place], [place] [address]Dr. Benoit Diggs RSV Not detected Normal NOT DETECTED The [facility] Comment on above: Performed By: #### R SPLUS ####[facility] [address] [address]Dr. Benoit Diggs SARS-CoV-2 (COVID-19) RNA RANDOLPH+probe Ql (Unsp spec) Not detected Normal NOT DETECTED [facility] Comment on above: Performed By: #### R SPLUS ####[facility] [address] [place], [place] [address]Dr. Benoit Diggs Result Comment: When diagnostic testing [...] for this test is supported by the [place] of Health and Human Service's declaration that [...] By: #### H IV12 #### [facility] [address] [place] [address] Dr. Benoit Diggs URINE MICROSCOPIC ONLYon BACTERIA TRACE Abnormal NONE SEEN [facility] Comment on above: Performed By: #### H IV12 #### [facility] [address] [place] [address] Dr. Benoit Diggs Bacteria identified Cx Nom (U) INDICATED Normal [facility] Comment on above: Performed By: #### H IV12 #### [facility] [address] [place] [address] Dr. Benoit Diggs CAST NONE SEEN Normal NONE SEEN [facility] Comment on above: Performed By: #### H IV12 #### [facility] [address] [place] [address] Dr. Benoit Diggs Crystals LM Nom (Urine sed) NONE SEEN Normal NONE SEEN [facility] Comment on above: Performed By: #### H IV12 #### [facility] [address] [place] [address] Dr. Benoit Diggs Epithelial cells LM Ql (Urine sed) MODERATE Abnormal NONE SEEN /RARE [facility] Comment on above: Performed By: #### H IV12 #### [facility] [address] [place] [address] Dr. Benoit Diggs MUCOUS NONE SEEN Normal NONE SEEN [facility] Comment on above: Performed By: #### H IV12 #### [facility] [address] [place] [address] Dr. Benoit Diggs RBC 0-2 Normal 0-2 [facility] Comment on above: Performed By: #### H IV12 #### [facility] [address] [place] [address] Dr. Benoit Diggs WBC 5-10 Abnormal NONE SEEN [facility] Comment on above: Performed By: #### H IV12 #### [facility] [address] [place] [address] Dr. Benoit Diggs CBC AUTO DIFFon 09-09-2022 BASO # 0.1 103/ul Normal 0.0-0.1 [facility] Comment on above: Performed By: #### C BC #### [facility] [address] [address] [address] Benoit Diggs Basophils/100 WBC (Bld) 0.5 % Normal 0.2-2.0 [facility] Comment on above: Performed By: #### C BC #### [facility] [address] [address] [address] Benoit Diggs EO # 0.4 103/ul Normal 0.0-0.7 [facility] Comment on above: Performed By: #### C BC #### [facility] [address] [address] [address] Benoit Diggs Eosinophils/100 WBC (Bld) 4.1 % Normal 0.9-7.0 [facility] Comment on above: Performed By: #### C BC #### [facility] [address] [place] [address] Dr. Benoit Diggs Erythrocyte distribution width (RBC) [Ratio] 12.8 % Normal 11.0-15.0 [facility] Comment on above: Performed By: #### C BC #### [facility] [address] [place] [address] Dr. Benoit Diggs Hematocrit (Bld) [Volume fraction] 31.4 % Critically low 36.0-48.0 [facility] Comment on above: Performed By: #### C BC #### [facility] [address] [place] [address] Dr. Beniot Diggs Hemoglobin (Bld) [Mass/Vol] 10.5 g/dL Critically low 12.0-16.0 [facility] Comment on above: Performed By: #### C BC #### [facility] [address] [address] [address] Benoit Diggs IG # 0.05 10e3/ul Critically high 0.00-0.03 [facility] Comment on above: Performed By: #### C BC #### [facility] [address] [place] [address] Dr. Benoit Diggs IG % 0.5 % Normal 0.0-0.5 [facility] Comment on above: Performed By: #### C BC #### [facility] [address] [place] [address] Dr. Benoit Diggs LYMPH # 2.2 103/ul Normal 1.2-3.8 [facility] Comment on above: Performed By: #### C BC #### [facility] [address] [place] [address] Dr. Benoit Diggs Lymphocytes/100 WBC (Bld) 21.9 % Normal 20.5-60.0 [facility] Comment on above: Performed By: #### C BC #### [facility] [address] [place] [address] Dr. Benoit Diggs MANUAL DIFF REQ NO Normal [facility] Comment on above: Performed By: #### C BC #### [facility] [address] [place] [address] Dr. Benoit Diggs MCH (RBC) [Entitic mass] 29.7 pg Normal 26.7-34.0 [facility] Comment on above: Performed By: #### C BC #### [facility] [address] [place] [address] Dr. Benoit Diggs MCHC (RBC) [Mass/Vol] 33.4 g/dL Normal 29.9-35.2 [facility] Comment on above: Performed By: #### C BC #### [facility] [address] [place] [address] Dr. Benoit Diggs MCV (RBC) [Entitic vol] 89.0 fL Normal 81.0-99.0 [facility] Comment on above: Performed By: #### C BC #### [facility] [address] [place] [address] Dr. Benoit Diggs MONO # 0.6 103/ul Normal 0.3-0.8 [facility] Comment on above: Performed By: #### C BC #### [facility] [address] [place] [address] Dr. Benoit Diggs Monocytes/100 WBC (Bld) 5.7 % Normal 1.7-12.0 [facility] Comment on above: Performed By: #### C BC #### [facility] [address] [address] [address] Benoit Diggs NEUT # 6.8 103/ul Critically high 1.4-6.5 [facility] Comment on above: Performed By: #### C BC #### [facility] [address] [address] [address] Benoit Diggs Neutrophils/100 WBC (Bld) 67.3 % Normal 43.0-75.0 [facility] Comment on above: Performed By: #### C BC #### [facility] [address] [place] [address] Dr. Benoit Diggs Platelet mean volume (Bld) [Entitic vol] 11.0 fL Normal 9.5-13.5 [facility] Comment on above: Performed By: #### C BC #### [facility] [address] [place] [address] Dr. Benoit Diggs PLT 215 103/ul Normal 150-450 [facility] Comment on above: Performed By: #### C BC #### [facility] [address] [place] [address] Dr. Benoit Diggs RBC 3.53 106/ul Critically low 4.20-5.40 [facility] Comment on above: Performed By: #### C BC #### [facility] [address] [place] [address] Dr. Benoit Diggs WBC 10.2 103/ul Normal 4.0-11.0 [facility] Comment on above: Performed By: #### C BC #### [facility] [address] [place] [address] Dr. Benoit Diggs GLUCOSE - 1HRon 09-09-2022 Glucose [Mass/Vol] 116 mg/dL Critically high 74-106 [facility] Comment on above: Performed By: #### G LU1HR ####[facility] [address] [address]Dr. Benoit Diggs PAP ACOG PANEL 2: 21 to 29on 08-13-2022 . . Normal [facility] Comment on above: Performed By: #### C BC #### [facility] [address] [place] [address] Dr. Benoit Diggs Age Gdln ACOG Testing 21- [facility] Comment on above: Performed By: #### C BC #### [facility] [address] [place] [address] Dr. Benoit Diggs DIAGNOSIS: Comment [facility] Comment on above: Result Comment: NEGA TIVE FOR INTRAEPITHELIAL LESION OR MALIGNANCY. Performed By: #### C BC #### [facility] [address] [place] [address] Dr. Benoit Diggs Methodology: Comment [facility] Comment on above: Result Comment: This liquid based ThinPrep(R) pap test was screened with the use of an image guided system. Performed By: #### C BC #### [facility] [address] [place] [address] Dr. Benoit Diggs Note: Comment [facility] Comment on above: Result Comment: The Pap smear is a screening test designed to aid in the detection of premalignant and malignant conditions of the uterine cervix. It is not a diagnostic procedure and should not be used as the sole means of detecting cervical cancer. Both false-positive and false-negative reports do occur. . Performed By: #### C BC #### [facility] [address] [place] [address] Dr. Beniot Diggs Performed by: Comment Normal [facility] Comment on above: Result Comment: Cynthia Smith, Cloth Shader (ASCP) Performed By: #### C BC #### [facility] [address] [place] [address] Dr. Benoit Diggs Reflex Criteria: Comment [facility] Comment on above: Result Comment: The HPV DNA reflex criteria were not met with this specimen result therefore, no HPV testing was performed. . Performed By: #### C BC #### [facility] [address] [place] [address] Dr. Benoit Diggs Specimen adequacy: Comment [facility] Comment on above: Result Comment: Sati sfactory for evaluation. No endocervical component is identified. Performed By: #### C BC #### [facility] [address] [place], [place] [address] Dr. Benoit Diggs CHLAMYDIA/GONOCOCCUS RANDOLPH ( AB/URINE/PAPon 08-08-2022 Chlamydia trachomatis, RANDOLPH Negative Normal Negative [facility] Comment on above: Performed By: #### H IV12 #### [facility] [address] [place], [place] [address] Dr. Benoit Diggs Neisseria gonorrhoeae, RANDOLPH Negative Normal Negative [facility] Comment on above: Performed By: #### H IV12 #### [facility] [address] [place], [place] [address] Dr. Benoit Diggs US PREG INCOMPLETE ANATOMYon [...] by: MYLENE SULLIVAN Date: 2022-08-07 20:09 Normal [facility] US PREG ANATOMY SINGLEon US PREG [...] Date: 2022-07-25 17:11 Normal [facility] AFP MATERNAL FOR SPINA BIFID Aon 07-17-2022 AFP MoM 0.55 Normal [facility] Comment on above: Performed By: #### H IV12 #### [facility] [address] [address] [address] Benoit Diggs AFP Value 20.0 ng/mL Normal [facility] Comment on above: Performed By: #### H IV12 #### [facility] [address] [address] [address] Benoit Diggs AFP, Serum for Spina Bifida Report Normal [facility] Comment on above: Performed By: #### H IV12 #### [facility] [address] [address] [address] Benoit Diggs Comment Comment Normal [facility] Comment on above: Result Comment: Ector Palafox, Ph.D., [facility] Director . References: Available Upon Request. . Multiples Of Median Cutoffs For AFP Elevations Caro 2.5 Black 2.8 IDD 2.0 Twins 4.5 Abbreviation Definitions IDD - Insulin Dep Diabetes OSBR - Open Spina Bifida Risk . For further inquiries contact [employer] at [phone]. . This test was developed and its performance characteristics determined by [employer]. It has not been cleared or approved by the Food and Drug Administration. Performed By: #### H IV12 #### [facility] [address] [place] [address] Dr. Benoit Davey Age Collection Date 18.1 weeks Normal [facility] Comment on above: Performed By: #### H IV12 #### [facility] [address] [address] [address] Benoit Diggs Gestat, Age Based on Ultrasound Normal [facility] Comment on above: Result Comment: 13:1 on 06/06/2022 Recalculations are not recommended when gestational dating by LMP and ultrasound are within 10 days. Performed By: #### H IV12 #### [facility] [address] [place] [address] Dr. Benoit Diggs Insulin Dep Diabetes No Normal [facility] Comment on above: Performed By: #### H IV12 #### [facility] [address] [place] [address] Dr. Benoit Diggs Interpretation Comment Normal [facility] Comment on above: Result Comment: Inte rpretation: [...] Customer Services to discuss available options. The [employer] recommends amniocentesis be offered to women age 35 and older. Performed By: #### H IV12 #### [facility] [address] [place] [address] Dr. Benoit Diggs [age] Normal [facility] Comment on above: Performed By: #### H IV12 #### [facility] [address] [place] [address] Dr. Benoit Diggs Multiple Gestation No Normal [facility] Comment on above: Performed By: #### H IV12 #### [facility] [address] [address] [address] Benoit Diggs OSBR [place] 1 [place] [address] Normal [facility] Comment on above: Performed By: #### H IV12 #### [facility] [address] [address] [address] Benoit Diggs PDF . Normal [facility] Comment on above: Performed By: #### H IV12 #### [facility] [address] [address] [address] Benoit Diggs Race Normal [facility] Comment on above: Performed By: #### H IV12 #### [facility] [address] [address] [address] Benoit Diggs Test Results: Negative [facility] Comment on above: Performed By: #### H IV12 #### [facility] [address] [place] [address] Dr. Benoit Diggs HEP B SURFACE ANTIGEN SCREEN on 06-07-2022 HBsAg Screen Negative Normal Negative [facility] Comment on above: Performed By: #### H IV12 #### [facility] [address] [address] [address] Benoit Diggs HEPATITIS C VIRUS AB W/ REFL EX QUANTon 06-07-2022 HCV AB <0.1 Normal 0.0-0.9 [facility] Comment on above: Performed By: #### H IV12 #### [facility] [address] [place] [address] Dr. Benoit Diggs Interpretation: Comment Normal [facility] Comment on above: Result Comment: Nega tive Not infected with HCV, unless recent infection is suspected or other evidence exists to indicate HCV infection. Performed By: #### H IV12 #### [facility] [address] [place] [address] Dr. Benoit Diggs HIV 1 AND 2 WITH REFLEXon HIV Screen 4th Generation wRfx Non-Reactive Normal Non Reactive [facility] Comment on above: Result Comment: HIV Negative HIV-1/HIV-2 antibodies and HIV-1 p24 antigen were NOT detected. There is no laboratory evidence of HIV infection. Performed By: #### H IV12 #### [facility] [address] [address] [address] Benoit Diggs RPR QUANTon 06-07-2022 Rapid Plasma Reagin, Quant Non-Reactive Normal NonRea<1:1 [facility] Comment on above: Result Comment: Janene infante Note: This test does not meet current guidelines for screening and diagnosis of syphilis. This test is intended for following treatment response in patients being treated for syphilis infection. To screen for syphilis infection, a reflex cascade that includes both RPR and a treponema-specific assay should be utilized, such as Treponema pallidum (Syphilis) Screening [place] ([id number]) or Rapid Plasma Reagin (RPR) Test With Reflex to Quantitative RPR and Confirmatory Treponema pallidum Antibodies ([id number]). Performed By: #### H IV12 #### [facility] [address] [place] [address] Dr. Benoit Diggs RUBELLA AB IGGon 06-07-2022 Rubella Antibodies, IgG 3.22 index Normal Immune >0.99 [facility] Comment on above: Result Comment: Non- immune <0.90 Equivocal 0.90 - 0.99 Immune >0.99 Performed By: #### C BC #### [facility] [address] [place] [address] Dr. Benoit Diggs US PREG <14 WKSon [...] Date: 2022-06-06 22:25 Normal [facility] CBC AUTO DIFFon 06-06-2022 BASO # 0.1 103/ul Normal 0.0-0.1 [facility] Comment on above: Performed By: #### C BC #### [facility] [address] [place] [address] Dr. Benoit Diggs Basophils/100 WBC (Bld) 0.6 % Normal 0.2-2.0 [facility] Comment on above: Performed By: #### C BC #### [facility] [address] [place] [address] Dr. Benoit Diggs EO # 0.3 103/ul Normal 0.0-0.7 [facility] Comment on above: Performed By: #### C BC #### [facility] [address] [place] [address] Dr. Benoit Diggs Eosinophils/100 WBC (Bld) 4.1 % Normal 0.9-7.0 [facility] Comment on above: Performed By: #### C BC #### [facility] [address] [place] [address] Dr. Benoit Diggs Erythrocyte distribution width (RBC) [Ratio] 13.9 % Normal 11.0-15.0 [facility] Comment on above: Performed By: #### C BC #### [facility] [address] [place] [address] Dr. Benoit Diggs Hematocrit (Bld) [Volume fraction] 36.0 % Normal 36.0-48.0 [facility] Comment on above: Performed By: #### C BC #### [facility] [address] [place] [address] Dr. Benoit Diggs Hemoglobin (Bld) [Mass/Vol] 12.0 g/dL Normal 12.0-16.0 [facility] Comment on above: Performed By: #### C BC #### [facility] [address] [place] [address] Dr. Benoit Diggs IG # 0.03 10e3/ul Normal 0.00-0.03 [facility] Comment on above: Performed By: #### C BC #### [facility] [address] [place] [address] Dr. Benoit Diggs IG % 0.4 % Normal 0.0-0.5 [facility] Comment on above: Performed By: #### C BC #### [facility] [address] [place] [address] Dr. Benoit Diggs LYMPH # 2.7 103/ul Normal 1.2-3.8 [facility] Comment on above: Performed By: #### C BC #### [facility] [address] [place] [address] Dr. Benoit Diggs Lymphocytes/100 WBC (Bld) 33.2 % Normal 20.5-60.0 [facility] Comment on above: Performed By: #### C BC #### [facility] [address] [place] [address] Dr. Benoit Diggs MANUAL DIFF REQ NO Normal [facility] Comment on above: Performed By: #### C BC #### [facility] [address] [place] [address] Dr. Benoit Diggs MCH (RBC) [Entitic mass] 29.4 pg Normal 26.7-34.0 [facility] Comment on above: Performed By: #### C BC #### [facility] [address] [place] [address] Dr. Benoit Diggs MCHC (RBC) [Mass/Vol] 33.3 g/dL Normal 29.9-35.2 [facility] Comment on above: Performed By: #### C BC #### [facility] [address] [place] [address] Dr. Benoit Diggs MCV (RBC) [Entitic vol] 88.2 fL Normal 81.0-99.0 [facility] Comment on above: Performed By: #### C BC #### [facility] [address] [place] [address] Dr. Benoit Diggs MONO # 0.5 103/ul Normal 0.3-0.8 [facility] Comment on above: Performed By: #### C BC #### [facility] [address] [place] [address] Dr. Benoit Diggs Monocytes/100 WBC (Bld) 6.6 % Normal 1.7-12.0 [facility] Comment on above: Performed By: #### C BC #### [facility] [address] [address] [address] Benoit Diggs NEUT # 4.4 103/ul Normal 1.4-6.5 [facility] Comment on above: Performed By: #### C BC #### [facility] [address] [address] [address] Benoit Diggs Neutrophils/100 WBC (Bld) 55.1 % Normal 43.0-75.0 [facility] Comment on above: Performed By: #### C BC #### [facility] [address] [address] [address] Benoit Diggs Platelet mean volume (Bld) [Entitic vol] 11.0 fL Normal 9.5-13.5 [facility] Comment on above: Performed By: #### C BC #### [facility] [address] [address] [address] Benoit Diggs PLT 225 103/ul Normal 150-450 [facility] Comment on above: Performed By: #### C BC #### [facility] [address] [address] [address] Benoit Diggs RBC 4.08 106/ul Critically low 4.20-5.40 [facility] Comment on above: Performed By: #### C BC #### [facility] [address] [address] [address] Benoit Diggs WBC 8.1 103/ul Normal 4.0-11.0 [facility] Comment on above: Performed By: #### C BC #### [facility] [address] [address] [address] Benoit Diggs CULTURE URINEon 06-06-2022 CULTURE URINE Culture Observations : MODERATE GROWTH OF MIXED GENITAL RIZWAN. NO POTENTIAL PATHOGENS SEEN. Normal [facility] Comment on above: Performed By: #### U RCX ####[facility] [id number] [address]Dr. Benoit Diggs GLYCOHEMOGLOBIN A1Con 2021 ADA RECOMMENDATION SEE BELOW Normal [facility] Comment on above: Result Comment: ADA RECOMMENDED LIMIT 4.0 - 6.0 ADA THERAPEUTIC TARGET < 7.0 ACTION SUGGESTED > 7.0 Performed By: #### C BC #### [facility] [address] [place] [address] Dr. Benoit Diggs Glucose [Mass/Vol] 105 mg/dL Normal [facility] Comment on above: Performed By: #### C BC #### [facility] [address] [place] [address] Dr. Benoit Diggs HbA1c (Bld) [Mass fraction] 5.3 % Normal 4.5-6.2 [facility] Comment on above: Performed By: #### C BC #### [facility] [address] [place] [address] Dr. Benoit Diggs DAVID BOX TEST PT SEND OUTo n 06-06-2022 SENT TO REF LAB 06/06/2022 Normal [facility] Comment on above: Performed By: #### H IV12 #### [facility] [address] [place] [address] Dr. Benoit Diggs TYPE AND SCREENon 06-06-2022 TYPE AND SCREEN Negative Normal [facility] Comment on above: Performed By: #### T NS #### [facility] [address] [place] [address] Dr. Benoit Diggs PREG QUANT HCGon 04-16-2022 HCG QUANT 60763 mIU/mL Normal [facility] Comment on above: Performed By: #### C BC #### [facility] [address] [place] [address] Dr. Benoit Diggs HCG RANGE SEE BELOW Normal [facility] Comment on above: Result Comment: 5-50 0-1 WEEK 40-300 1-2 WEEKS 100-1,000 2-3 WEEKS 500-6,000 3-4 WEEKS 5,000-200,000 1-2 MONTHS 10,000-100,000 2-3 MONTHS 3,000-50,000 2ND TRIMESTER 1,000-50,000 3RD TRIMESTER Performed By: #### C BC #### [facility] [address] [place], [place] [id number] Dr. Benoit Diggs Vital Signs Date Time Vital Sign Value Performing Clinician Facility 07-17-2022 [id number] Body weight 100.[address] DOCTOR PIERCE [facility] Comment on above: Performed By: #### H IV12 #### [facility] [address] [address] [address] Benoit Diggs Encounters Encounter Date Encounter Type Care Provider Facility Start: 06-01-2024 End: 06-01-2024 ambulatory MANUEL NOEL Not Available Start: 04-28-2024 End: 04-28-2024 ambulatory MANUEL NOEL Not Available Start: 03-02-2024 End: 03-02-2024 ambulatory MANUEL NOEL Not Available Start: 02-28-2024 End: 02-29-2024 Emergency department patient visit NAVI Oconnell MOORE [facility] Start: 02-28-2024 End: 02-28-2024 Emergency department patient visit MANUEL NOEL [facility] Start: 04-15-2023 ambulatory Amrond Moran acility:[facility] Start: 12-23-2022 Encounter for genera l adult medical examination without abnormal findings DR MANUEL NOEL [facility] Start: 12-21-2022 End: 12-22-[address] [...] PIERCE Payers Date Payer Category Payer Unknown [id number] 2.16.84 [id number] 2000 Unknown [id number] 2.16.84 [id number] 2000 Unknown [id number] 2.16.84 0.1.641716.3.579.2.593 2000 Unknown [id number] 2.16.84 0.1.481121.3.579.2.593 2000 Unknown [id number] 2.16.84 0.1.718129.3.579.2.593 2000 Unknown [id number] 2.16.84 0.1.702200.3.579.2.593 2000 Unknown [id number] 2.16.84 0.1.236715.3.579.2.593 2000 Unknown [id number] 2.16.84 0.1.545874.3.579.2.593 2000 Unknown [id number] 2.16.84 0.1.607368.3.579.2.593 2000 Unknown [id number] 2.16.84 0.1.263721.3.579.2.593 2000 Unknown [id number] 2.16.84 0.1.185111.3.579.2.593 2000 Unknown [id number] 2.16.84 0.1.020137.3.579.2.593 2000 Unknown [id number] 2.16.84 0.1.525513.3.579.2.593 2000 Unknown [id number] 2.16.84 0.1.327202.3.579.2.593 2000 Unknown [id number] 2.16.8 40.1.125476.3.579.2.1286 2000 Unknown [id number] 2.16.8 40.1.603967.3.579.2.1286 2000 Unknown [id number] 2.16.84 0.1.742008.3.579.2.1259 2000 Unknown [id number] 2.16.84 0.1.583839.3.579.2.1259 2000 Unknown [id number] 2.16.84 0.1.043734.3.579.2.1259 1959 Self-pay 1959 Unknown [id number] Unknown [id number] 2.16.84 0.1.914320.3.579.2.593 Unknown [id number] 2.16.8 40.1.293482.3.579.2.531 Summary Purpose Family History No Family History Records FoundNo Family History Records FoundNo Family History Records FoundNo Family History Records Found Advance Directives No Advanced Directives Records FoundNo Advanced Directives Records FoundNo Advanced Directives Records FoundNo Advanced Directives Records Found Additional Source Comments INFORMATION SOURCE (unrecogn ized section and content) DATE CREATED AUTHOR 12/24/2022 [facility] DATE CREATED AUTHOR AUTHOR'S ORGANIZ ATION 03/01/2024 [facility] DATE CREATED AUTHOR AUTHOR'S ORGANIZ ATION 05/07/2024 [facility] DATE CREATED AUTHOR AUTHOR'S ORGANIZ ATION 06/03/2024 [facility] FOR RECORDS PERTAINING TO PATIENTS WHO ARE [...] ON THE PRIMARY CLINICAL RECORDS. [facility] [employer] provides no warranty or guarantee of the accuracy or completeness of information in this document.
--- NOTE | 2024-07-01 00:25 | ED.FEMALEGU1 ---
HPI - Female Genitourinary General Chief complaint: Urogenital-Female Stated complaint: VAGINAL ISSUES Time Seen by Provider: 07/01/24 00:13 Source: patient Mode of arrival: walk-in Limitations: no limitations History of Present Illness HPI Narrative: patient is poor historian. States she occ leaks fluid from the genital area. Not sure where she leaks it from. No vaginal discharge. No dysuria, abdominal pain or fever Related Data Home Medications ?Medication ?Instructions ?Recorded ?Confirmed omeprazole 40 mg capsule,delayed 40 mg PO DAILY 06/09/24 07/01/24 release promethazine 12.5 mg tablet 12.5 mg PO TID PRN nausea and 06/09/24 07/01/24 vomiting Allergies Allergy/AdvReac Type Severity Reaction Status Date / Time penicllin Allergy Mild Rash Uncoded 01/14/24 01:03 Review of Systems ROS Status of ROS 10 or more systems reviewed and unremarkable except as noted in history and below Exam Constitutional Vital Signs, click to edit/add: Last Vital Signs Temp 97.9 F 07/01/24 00:14 Pulse 79 07/01/24 00:14 Resp 18 07/01/24 00:14 BP 125/97 H 07/01/24 00:14 Pulse Ox 98 07/01/24 00:14 O2 Del Method Room Air 07/01/24 00:14 Common normals: no apparent distress, average body habitus, oriented x3, no limitations, healthy appearing, alert and well nourished [facility] Common normals: normocephalic and head/scalp atraumatic Respiratory Common normals: normal respiratory effort, no retractions, no use of accessory muscles and clear to auscultation bilaterally Cardio Common normals: regular rate, regular rhythm, S1 normal heart sound and S2 normal heart sound GI Common normals: Normal to inspection, nondistended, normoactive bowel sounds present, soft to palpation and non-tender Common normals: external appearance normal, appearance of the vagina normal and appearance of the cervix normal Back & Pelvis Common normals: no CVA tenderness Extremity Common normals: normal to inspection and full ROM Neuro Common normals: oriented x3, CN's II-XII intact bilaterally, moves all extremities and no focal motor deficits Psych Appearance: grossly normal Course Vital Signs Vital signs: Vital Signs Temperature 97.9 F 07/01/24 00:14 Pulse Rate 79 07/01/24 00:14 Respiratory Rate 18 07/01/24 00:14 Blood Pressure 125/97 H 07/01/24 00:14 Pulse Oximetry 98 07/01/24 00:14 Oxygen Delivery Method Room Air 07/01/24 00:14 Temperature 97.9 F 07/01/24 00:14 Pulse Rate 79 07/01/24 00:14 Respiratory Rate 18 07/01/24 00:14 Blood Pressure 125/97 H 07/01/24 00:14 Pulse Oximetry 98 07/01/24 00:14 Oxygen Delivery Method Room Air 07/01/24 00:14 MDM - Female Genitourinary MDM Narrative Medical decision making narrative: presents complaining of occ leakage of fluid from genital area. Workup neg . No findings on speculum exam. Cultures pending. UA , CBC and BMP WNL. patient advised to follow up with her doctor for recheck Lab Data Labs: Lab Results 07/01/24 07/01/24 Range/Units 01:00 02:00 WBC 9.5 (4.0-11.0) 10^3/uL RBC 4.61 (4.20-5.40) 10^6/uL Hgb 13.1 (12.0-16.0) g/dL Hct 40.3 (36.0-48.0) % MCV 87.4 (81.0-99.0) fL MCH 28.4 (26.7-34.0) pg MCHC 32.5 (29.9-35.2) g/dL RDW 13.4 (11.0-15.0) % Plt Count 299 (150-450) 10^3/uL MPV 10.2 (9.5-13.5) fL Neut % (Auto) 49.4 (43.0-75.0) % Lymph % (Auto) 39.5 (20.5-60.0) % [place] % (Auto) 5.8 (1.7-12.0) % Eos % (Auto) 4.4 (0.9-7.0) % Baso % (Auto) 0.7 (0.2-2.0) % Neut # (Auto) 4.7 (1.4-6.5) 10^3/uL Lymph # (Auto) 3.8 (1.2-3.8) 10^3/uL [place] # (Auto) 0.6 (0.3-0.8) 10^3/uL Eos # (Auto) 0.4 (0.0-0.7) 10^3/uL Baso # (Auto) 0.1 (0.0-0.1) 10^3/uL Abs Immat Gran (auto) 0.02 (0.00-0.03) 10^3/uL Imm/Tot Granulo (auto) 0.2 (0.0-0.5) % Sodium 135 L (136-145) mmol/L Potassium 4.0 (3.5-5.1) mmol/L Chloride 101 (98-107) mmol/L Carbon Dioxide 29.9 (21.0-32.0) mmol/L Anion Gap 8.1 BUN 11.0 (7.0-18.0) mg/dL Creatinine 0.73 (0.55-1.02) mg/dL Est GFR ( Amer) >60 (>=60) Est GFR (Non-Af Amer) >60 (>=60) BUN/Creatinine Ratio 15.1 Glucose 104 (74-106) mg/dL Calcium 9.1 (8.5-10.1) mg/dL Urine Color Yellow (YELLOW) Urine Clarity Clear (CLEAR) Urine pH 6.0 (5.0-9.0) Ur Specific [place] >=1.030 A (1.005-1.025) Urine Protein 100 A (NEG/TRACE) mg/dL Urine Glucose (UA) Negative (NEGATIVE) mg/dL Urine Ketones Negative (NEGATIVE) mg/dL Urine Occult Blood Negative (NEGATIVE) Urine Nitrite Negative (NEGATIVE) Urine Bilirubin Negative (NEGATIVE) Urine Urobilinogen 1.0 (0.2-1.0) EU/dL Ur Leukocyte Esterase Negative (NEGATIVE) Urine RBC 0-2 (0-2) #/HPF Urine WBC 2-5 A (NONE SEEN) #/HPF Ur Squamous Epith Cells Few A (NONE/RARE) #/LPF Urine Crystals None seen (None Seen) #/HPF Urine Bacteria Small A (NONE SEEN) #/HPF Urine Casts None seen (NONE SEEN) #/LPF Urine Mucus None seen (NONE SEEN) Ur Culture Indicated? Yes Urine HCG, Qual Negative (NEGATIVE) Discharge Plan Discharge Chief Complaint: Urogenital-Female Clinical Impression: Abdominal pain Patient Disposition: Home, Self-Care Prescriptions / Home Meds: No Action omeprazole 40 mg capsule,delayed release(DR/EC) 40 mg PO DAILY promethazine 12.5 mg tablet 12.5 mg PO TID PRN (Reason: nausea and vomiting) Rx Instructions: 3 doses during day; last dose no later than 4 hr before bedtime Print Language: [place] Instructions: Abdominal Pain (ED) Referrals: Manuel Schwartz MD [Primary Care Provider] - 1 week Discharge Date/Time: 07/01/24 05:00
--- NOTE | 2024-07-01 00:40 | PC.NURSE ---
No pain. States just started leaking small amounts of fluid every 5 min. Denies urinary SX
[2024-07-01 01:14] LABS: Bilirubin Urine NEGATIVE (NEGATIVE); Blood Urine NEGATIVE (NEGATIVE); Clarity Urine CLEAR (CLEAR); Color Urine YELLOW (YELLOW); Glucose Urine UA NEGATIVE (NEGATIVE); Ketones Urine NEGATIVE (NEGATIVE); Leukocyte Esterase Urine NEGATIVE (NEGATIVE); Nitrite Urine NEGATIVE (NEGATIVE); Protein Urine 100 mg/dL (NEG/TRACE); Specific Gravity Urine >=1.030 (1.005-1.025)
[2024-07-01 01:15] LABS: HCG Qualitative Urine* NEGATIVE (NEGATIVE); Internal Control Within Normal Limits
[2024-07-01 01:16] LABS: Urine Microscopic Indicated YES
[2024-07-01 01:22] LABS: Bacteria Urine SMALL #/HPF (NONE SEEN); Cast Seen? NONE SEEN #/LPF (NONE SEEN); Crystals Seen? None Seen #/HPF (None Seen); Mucus Urine NONE SEEN (NONE SEEN); RBC Urine 0-2 #/HPF (0-2); Squamous Epithelial Cell Urine FEW #/LPF (NONE/RARE); Urine Culture Indicated YES
[2024-07-01 02:11] LABS: Basophils Absolute Auto 0.1 10^3/uL (0.0-0.1); Basophils Percent Auto 0.7 % (0.2-2.0); Eosinophils Absolute Auto 0.4 10^3/uL (0.0-0.7); Eosinophils Percent Auto 4.4 % (0.9-7.0); Hematocrit 40.3 % (36.0-48.0); Hemoglobin 13.1 g/dL (12.0-16.0); Immature Granulocytes Abs Auto 0.02 10^3/uL (0.00-0.03); Immature Granulocytes Pct Auto 0.2 % (0.0-0.5); Lymphocytes Absolute Auto 3.8 10^3/uL (1.2-3.8); Lymphocytes Percent Auto 39.5 % (20.5-60.0); Mean Corpuscular HGB Conc 32.5 g/dL (29.9-35.2); Mean Corpuscular Hemoglobin 28.4 pg (26.7-34.0); Mean Corpuscular Volume 87.4 fL (81.0-99.0); Mean Platelet Volume 10.2 fL (9.5-13.5); Monocytes Absolute Auto 0.6 10^3/uL (0.3-0.8); Monocytes Percent Auto 5.8 % (1.7-12.0); Neutrophils Absolute Auto 4.7 10^3/uL (1.4-6.5); Neutrophils Percent Auto 49.4 % (43.0-75.0); Platelet Count 299 10^3/uL (150-450); Red Blood Count 4.61 10^6/uL (4.20-5.40); Red Cell Distribution Width 13.4 % (11.0-15.0); White Blood Count 9.5 10^3/uL (4.0-11.0)
[2024-07-01 02:22] LABS: Anion Gap 8.1; BUN Creatinine Ratio 15.1; Calcium 9.1 mg/dL (8.5-10.1); Carbon Dioxide 29.9 mmol/L (21.0-32.0); Chloride 101 mmol/L (98-107); Estimated GFR (African America >60 (>=60); Estimated GFR (Non-African Ame >60 (>=60); Glucose 104 mg/dL (74-106); Sodium 135 mmol/L (136-145)
[2024-07-03 07:13] LABS: Neisseria gonorrhoeae, NAA Negative (Negative)
== END 2024-07-01 05:00 | disposition home or self-care (01) ==
PROVIDERS: Emergency Provider Internal Medicine; PCP Family Medicine
DX: R10.9 Unspecified abdominal pain (principal); N89.8 Other specified noninflammatory disorders of vagina
CPT/HCPCS: 36415; 80048; 81001; 84703; 85025; 87086; 87210; 87491; 87591; 99283

== ENCOUNTER 2024-11-11 09:42 | Outpatient (OUT) | payer OTHER, SELFPAY ==
--- OUTSIDE RECORDS SUMMARY | 2024-11-11 10:02 | XMS_ITS | CCD ---
Author Organization [facility] Care Team Providers Care Master At Arms Name Role Phone DEMETRIOC, DR WILLS Attending Unavailable NADERER, DR MANUEL [...] LEMON Attending Unavailable ION, KRISHNA Admitting Unavailable IONKRISHNA Consulting Unavailable NADERER, DR MANUEL Souza Primary [...] Unavailabl e KARASIK ., DR GAN Consulting Unavailmahsa e BLAKE ZHANG Consulting Unavailable KARASIK ., [...] DR ANDREA Admitting Unavailable HELLEN ., DR ADNREA Consulting Unavailable NADERER, DR MANUEL Souza Primary Care Unavailable KARASIK ., DR GAN Attending Unavailabl e KARASIK ., DR GAN Admitting Unavailabl e KARASIK ., DR GAN Consulting Unavailabl e NADERER, DR MANUEL Souza Attending Unavailable NADERER, DR MANUEL Souza Admitting Unavailable NADERER, DR MANUEL Souza Primary Care Unavailable NADERER, DR MANUEL Souza Consulting Unavailable NADERER, MANUEL Attending Unavailable NADERER, MANUEL Attending Unavailable NADERER, MANUEL Attending Unavailable NADERER, MANUEL Primary Care Unavailable MOORE, NAVI N Attending Unavailable MOORE, NAVI N Attending Unavailable MOORE, NAVI N Referring Unavailable BERT, MANUEL Primary Care Unavailable NADERETatiana, MANUEL Primary Care Unavailable MYLENE SAMPSON Attending Unavailable Manuel Noel MD Primary Care Provider [phone] Mir Silva MD Attending Provider [phone] Mir Silva Attending Unavailable Mir Silva Admitting Unavailable Bert, Manuel Primary Care Unavailable Manuel Noel MD Primary Care Provider Allergies Allergy Classification Reported Allergen(s) Allergy Type Date of Onset Reaction(s) Facility (2 sources) Penicillins; Translations: [PENICILLINS] Drug allergy (disorder) [address] [facility] Repository (1 source) Penicillins Drug allergy (disorder) [facility] Repository (1 source) Penicillins Drug Intolerance 1 Unknown [facility] Medications Current Medications Medication Drug Class(es) Dates Sig (Normalized) Sig (Original) [id number] 200 actuat albuterol 0.09 mg/actuat metered dose inhaler (2 sources) beta2-Adrenergic Agonist Start: 02-27-2024 take 2 puff(s) by inhalation every four hours albuterol HFA 90 mcg/act inhaler Indications: Mild intermittent intrinsic asthma without status asthmaticus without complication (CMS/HCC) Inhale 2 puffs every 4 (four) hours if needed for shortness of breath 18 g 3 02/27/2024 Active Start: 12-12-2021 End: 08-24-2024 Albuterol Sulfate (Ventolin Hfa) 90 mcg/actuation HFA aerosol inhaler Discontinued 2 INH INHALATION Q4H as needed for sob December 12, 2021 12:00am August 24, 2024 9:32am cyclobenzaprine hydrochloride 10 mg oral tablet (1 source) Muscle Relaxant Start: 06-01-2024 take 1 tablet by mouth three times daily as needed for muscle spasms cyclobenzaprine (Flexeril) 10 MG tablet Indications: Right sided sciatica Take 1 tablet (10 mg) by mouth 3 (three) times a day as needed for muscle spasms 30 tablet 06/01/2024 Active meclizine hydrochloride 25 mg oral tablet (1 source) Antiemetic Start: 08-24-2024 Meclizine 25 mg tablet Active 25 MG PO As Directed as needed for dizziness August 24, 2024 12:00am omeprazole 40 mg delayed release oral capsule (4 sources) Proton Pump Inhibitor Start: 09-07-2024 take 1 capsule by mouth once daily Omeprazole 40 mg capsule,delayed release(DR/EC) Active 40 MG PO Daily 30 September 07, 2024 12:00am Start: 03-02-2024 take 1 capsule by mo uth in the morning omeprazole (PriLOSEC) [address] capsule Indications: Gastroesophageal reflux disease, unspecified whether esophagitis present Take 1 capsule (40 mg) by mouth in the morning and 1 capsule (40 mg) in the evening. Take before meals. 60 capsule 5 03/02/2024 Active Start: 12-14-2021 End: 09-07-2024 take 1 capsule by mouth once daily Omeprazole 20 mg Capsule,Delayed Release(Dr/Ec) Discontinued 20 MG PO Daily December 14, 2021 12:00am September 07, 2024 1:33pm Start: 11-20-2017 End: 12-12-2021 Omeprazole 20 mg Capsule,Del ayed Release(Dr/Ec) Discontinued 20 MG PO as needed for Acne November 20, 2017 12:00am December 12, 2021 2:38pm promethazine hydrochloride 25 mg oral tablet (2 sources) Phenothiazine Start: 08-27-2024 take 1 tablet by mouth every six hours as needed for nausea and vomiting Promethazine 25 mg tablet Active 25 MG PO Every 6 hours as needed for nausea and vomiting August 27, 2024 12:00am promethazine (Ph energan) 12.5 MG tablet Take by mouth Active Completed/Discontinued Medications Medication Drug Class(es) Dates Sig (Normalized) Sig (Original) ARIPiprazole 2 mg oral tablet (1 source) Atypical Antipsychotic Start: 01-26-2019 End: 12-12-2021 take 1 tablet by mouth once daily Aripiprazole 2 mg Tablet Discontinued 2 MG PO Daily 14 January 25, 2019 11:00pm December 12, 2021 2:38pm Drospirenone-Ethinyl Estradiol (1 source) Progestin, Estrogen Start: 12-12-2021 End: 08-24-2024 take 1 tablet by mouth once daily Drospirenone-Ethiny l Estradiol 3-0.03 mg tablet Discontinued 1 TAB PO Daily December 12, 2021 12:00am August 24, 2024 9:33am DULoxetine 30 mg delayed release oral capsule (1 source) Serotonin and Norepinephrine Reuptake Inhibitor Start: 12-14-2021 End: 08-24-2024 take 1 capsule by mouth once daily at bedtime Duloxetine 30 mg Capsule,Delayed Release(Dr/Ec) Discontinued 30 MG PO Daily at bedtime December 14, 2021 12:00am August 24, 2024 9:32am ergocalciferol 1.25 mg oral capsule (1 source) Provitamin D2 Compound Start: 01-26-2019 End: 12-12-2021 Ergocalciferol (Vitamin D2) 50,000 unit Capsule Discontinued 50938 UNIT PO Sa@0900 2 January 25, 2019 11:00pm December 12, 2021 2:38pm sertraline 50 mg oral tablet (1 source) Serotonin Reuptake Inhibitor Start: 01-26-2019 End: 12-12-2021 take 1 tablet by mouth once daily Sertraline 50 mg Tablet Discontinued 50 MG PO Daily 14 January 25, 2019 11:00pm December 12, 2021 2:38pm Problems Active Problems Problem Classification Problem Date Documented Da te Episodic/Chronic Abdominal pain (7 sources) Generalized abdominal pain; Translations: [Abdominal pain] Onset: 4 Resolved: 4 08-24-2024 Episodic Acute posthemorrhagic anemia (1 source) Acute posthemorrhagic anemia; Translations: [ACUTE POSTHEMORRHAGIC ANEMIA] Onset: 3 Episodic Asthma (1 source) Mild intermittent asthma; Translations: [Mild intermittent asthma, uncomplicated] Onset: 4 03-02-2024 Chronic Esophageal disorders (3 sources) Gastroesophageal reflux disease; Translations: [Gastro-esophageal reflux disease without esophagitis] Onset: 4 01-21-2019 Chronic Influenza (1 source) Influenza due to other identified influenza virus with other respiratory manifestations; Translations: [FLU D/T OTH ID FLU VIR OTH RSP MANF] Onset: 2 Episodic Menstrual disorders (5 sources) Irregular menstruation, unspecified; Translations: [Amenorrhea] Onset: 2 Chronic Mood disorders (2 sources) Recurrent major depression; Translations: [Major depressive disorder, recurrent, unspecified] Onset: 4 01-21-2019 Chronic Nausea and vomiting (2 sources) Nausea; Translations: [Nausea] 08-24-2024 Episodic Noninfectious gastroenteritis (1 source) Noninfective gastroenteritis and colitis, unspecified; Translations: [Noninfective gastroenteritis and colitis, unspecified] Onset: 4 Episodic Other complications of ; puerperium affecting management of mother (1 source) Obesity complicating childbirth; Translations: [OBESITY COMPLICATING CHILDBIRTH] Onset: 3 Chronic Other complications of ; puerperium affecting management of mother (1 source) Anemia of the puerperium; Translations: [ANEMIA OF THE PUERPERIUM] Onset: 3 Chronic Other complications of (2 sources) Obesity complicating , third trimester; Translations: [OBESITY COMP THIRD TRI] Onset: 3 Chronic Other complications of (4 sources) related conditions, unspecified, unspecified trimester; Translations: [ RELATED COND UNS UNS TRI] Onset: 3 Episodic Other complications of (1 source) Diseases of the respiratory system complicating , third trimester; Translations: [DISEASES RESP SYS COMP PREG 3RD TRI] Onset: 2 Episodic Other ear and sense organ disorders (3 sources) Otalgia, left ear; Translations: [OTALGIA LEFT EAR] Onset: 2 Episodic Other gastrointestinal disorders (1 source) Constipation; Translations: [Constipation, unspecified] 01-21-2019 Episodic Other gastrointestinal disorders (1 source) Constipation, unspecified; Translations: [Constipation, unspecified] 08-24-2024 Episodic Other nutritional; endocrine; and metabolic disorders (1 source) Morbid obesity; Translations: [Morbid (severe) obesity due to excess calories] Onset: 4 03-02-2024 Chronic Other and delivery including normal (15 sources) Single live ; Translations: [Encounter for supervision of other normal , third trimester] Onset: 2 Episodic Other screening for suspected conditions (not mental disorders or infectious disease) (18 sources) Encounter for screening for malignant neoplasm of cervix; Translations: [Encounter for other specified screening] Onset: 2 Episodic Other upper respiratory disease (1 source) Allergic rhinitis due to pollen; Translations: [Allergic rhinitis due to pollen] Onset: 4 03-02-2024 Chronic Otitis media and related conditions (1 source) Unspecified nonsuppurative otitis media, bilateral; Translations: [UNS NONSUPPURATIVE OTITIS MEDIA OSCAR] Onset: 2 Episodic Residual codes; unclassified (1 source) 38 weeks gestation of ; Translations: [38 WEEKS GESTATION OF ] Onset: 3 Episodic Residual codes; unclassified (1 source) 29 weeks gestation of ; Translations: [29 WEEKS GESTATION OF ] Onset: 2 Episodic Unclassified (2 sources) OT SPCF DIS/COND COMPL ; Translations: [OT SPCF DIS/COND COMPL ] Onset: 2 Past or Other Problems Problem Classification Problem [...] [ABNORM US SCREEN MOTHER] Onset: 08-07-2022 Episodic Residual codes; unclassified (1 source) 26 [...] Spondylosis; intervertebral disc disorders; other back problems (5 sources) Cervicalgia; Translations: [Torticollis] Onset: 07-13-2022 Episodic Results Test Name Value Interpretation Reference Range Facility HCG ( test) Smooth lau Ql (U)Ordered By: Mir Silva on 09-07-2024 HCG ( test) Ql (U) Urine human chorionic gonadotropin (hCG) detection by immunoassay [facility] HCG,Urineon 09-07-2024 Beta HCG ( test) Ql (U) Negative Normal [facility] Comment on above: Result Comment: PERF ORMED BY: [address] [place] [address] PATHOLOGIST STAND UP COMEDIAN BRUCE CALI M.D. Performed By: #### U HCG #### [place] [address] [place] Carlin 09-07-2024 L - -------- Specimen: [id number] Received: 09/07/24 Status: GHAZAL Wilsononur Num: [id number] Spec Type: Surgical Subm Dr: Mir Silva MD Tissues: A Small Intestine - Biopsy/Polyp (SMALL BOWEL BX R/O CELIAC) Procedures: HE/2, Gross/Micro L4 -------- Age/ Patient Sex Location Account Attending Physician -------- Jes Malik 23/ [id number] Mir Silva MD -------- SPEC NUM: [id number] RECD: 09/07/24 STATUS: GHAZAL WILSONOnur NUM: [id number] ETIENNE: 09/07/24 [facility] DR: Mir Silva MD ENTERED: 09/07/[address]: SPEC TYPE: Surgical DEPT: S ENTERED BY: [id number] RECV BY: [id number] ORDERED: HE/2, Gross/Micro L4 ORDERED: HE/2, Gross/Micro L4 Pathological Diagnosis Small bowel, biopsy: - Small bowel mucosa with no significant histopathology. - No evidence of celiac disease identified. Clinical Information Abdominal pain, nausea, rule out celiac disease. Gross Description Received in formalin labeled with the patients name, date of , and small bowel BX is a moran-salvador, focally erythematous, friable, 0.4 cm in greatest dimension tissue bit. The specimen is entirely submitted in a single cassette. (1, ns, [id number]) Microscopic Description Microscopic examination is performed. CPT Codes 23987 -------- -------- Specimen: [id number] Received: 09/07/24 Status: GHAZAL [place] Num: [id number] Spec Type: Surgical Subm Dr: Mir Silva MD Tissues: A Small Intestine - Biopsy/Polyp (SMALL BOWEL BX R/O CELIAC) Procedures: HE/2, Gross/Micro L4 -------- Patient: Jes Malik [id number] (Continued) -------- Signed (signature on file) Roberth Martinez MD 09/08/24 1012 Normal [facility] CBC AND AUTO DIFFon 08-28-20 24 ABSOLUTE BASOPHIL 0.0 X10E9/L Normal 0.0-0.2 [facility] Comment on above: Performed By: #### C MP, CBCA #### [facility] ([id number]) [address] [place] [address] 63861 ABSOLUTE NEUTROPHIL 3.8 X10E9/L Normal 1.5-6.6 [facility] Comment on above: Performed By: #### C MP, CBCA #### [facility] ([id number]) [address] [place] [address] 00275 Basophils/100 WBC (Bld) 0.3 % Normal [facility] Comment on above: Performed By: #### C MP, CBCA #### [facility] ([id number]) [address] [place] [address] 37373 Eosinophils (Bld) [#/Vol] 0.0 10*3/uL Normal 0.0-0.4 [facility] Comment on above: Performed By: #### C MP, CBCA #### [facility] ([id number]) [address] [place] [address] 42915 Eosinophils/100 WBC (Bld) 0.8 % Normal [facility] Comment on above: Performed By: #### C MP, CBCA #### [facility] ([id number]) [address] [place] [address] 53265 Erythrocyte distribution width (RBC) [Ratio] 14.5 % Normal 11.5-15.0 [facility] Comment on above: Performed By: #### C MP, CBCA #### [facility] ([id number]) [address] [place] [address] 07678 Hematocrit (Bld) [Volume fraction] 38.8 % Normal 35-47 [facility] Comment on above: Performed By: #### C MP, CBCA #### [facility] ([id number]) [address] [place] [address] 63522 Hemoglobin (Bld) [Mass/Vol] 13.0 g/dL Normal 11.7-15.5 [facility] Comment on above: Performed By: #### C MP, CBCA #### [facility] ([id number]) [address] [place] [address] 72694 Lymphocytes (Bld) [#/Vol] 0.5 10*3/uL Low 1.0-3.5 [facility] Comment on above: Performed By: #### C MP, CBCA #### [facility] ([id number]) [address] [place] [address] 31314 Lymphocytes/100 WBC (Bld) 11.5 % Normal [facility] Comment on above: Performed By: #### C MP, CBCA #### [facility] ([id number]) [address] [place] [address] 46624 MCH (RBC) [Entitic mass] 28.6 pg Normal 27-34 [facility] Comment on above: Performed By: #### C MP, CBCA #### [facility] ([id number]) [address] [place] [address] 91527 MCHC (RBC) [Mass/Vol] 33.5 g/dL Normal 32-36 [facility] Comment on above: Performed By: #### C MP, CBCA #### [facility] ([id number]) [address] [place] [address] 97818 MCV (RBC) [Entitic vol] 85 fL Normal 80-100 [facility] Comment on above: Performed By: #### C MP, CBCA #### [facility] ([id number]) [address] [place] [address] 05141 Monocytes (Bld) [#/Vol] 0.2 10*3/uL Normal 0-0.9 [facility] Comment on above: Performed By: #### C MP, CBCA #### [facility] ([id number]) [address] [place] [address] 70363 Monocytes/100 WBC (Bld) 5.1 % Normal [facility] Comment on above: Performed By: #### C MP, CBCA #### [facility] ([id number]) [address] [place] [address] 16815 Neutrophils/100 WBC (Bld) 82.3 % Normal [facility] Comment on above: Performed By: #### C MP, CBCA #### [facility] ([id number]) [address] [place] [address] 87333 Platelet mean volume (Bld) [Entitic vol] 8.6 fL Normal 7-12 [facility] Comment on above: Performed By: #### C MP, CBCA #### [facility] ([id number]) [address] [place] [address] 06671 Platelets (Bld) [#/Vol] 225 10*3/uL Normal 150-450 [facility] Comment on above: Performed By: #### C MP, CBCA #### [facility] ([id number]) [address] [place] [address] 05556 RBC COUNT 4.55 X10E12/L Normal 3.80-5.20 [facility] Comment on above: Performed By: #### C MP, CBCA #### [facility] ([id number]) [address] [place] [address] 73527 WBC (Bld) [#/Vol] 4.6 10*3/uL Normal 4.0-11.0 [facility] Comment on above: Performed By: #### C MP, CBCA #### [facility] ([id number]) [address] [place] [address] 83660 COMPREHENSIVE METABOLIC PANE Carlin 08-28-2024 Albumin [Mass/Vol] 3.6 g/dL Normal 3.2-5.3 [facility] Comment on above: Performed By: #### C DONG, CBCA #### [facility] ([id number]) [address] [place] [address] 04359 ALP [Catalytic activity/Vol] 65 U/L Normal 39-130 [facility] Comment on above: Performed By: #### C DONG, CBCA #### [facility] ([id number]) [address] [place] [address] 67389 ALT [Catalytic activity/Vol] 29 U/L Normal 0-31 [facility] Comment on above: Performed By: #### C DONG, CBCA #### [facility] ([id number]) [address] [place] [address] 94794 Anion gap [Moles/Vol] 10 mmol/L Normal 5-15 [facility] Comment on above: Performed By: #### C MP, CBCA #### [facility] ([id number]) [address] [place] [address] 11221 AST [Catalytic activity/Vol] 36 U/L Normal 0-41 [facility] Comment on above: Performed By: #### C MP, CBCA #### [facility] ([id number]) [address] [place] [address] 81296 Bilirubin [Mass/Vol] 0.9 mg/dL Normal 0.3-1.2 [facility] Comment on above: Performed By: #### C DONG, CBCA #### [facility] ([id number]) [address] [place] [address] 23997 Calcium [Mass/Vol] 8.3 mg/dL Low 8.5-10.5 [facility] Comment on above: Performed By: #### C DONG, CBCA #### [facility] ([id number]) [address] [place] [address] 23792 Chloride [Moles/Vol] 103 mmol/L Normal 98-109 [facility] Comment on above: Performed By: #### C DONG CBCA #### [facility] ([id number]) [address] [place] [address] 48185 CO2 [Moles/Vol] 22 mmol/L Normal 22-32 [facility] Comment on above: Performed By: #### C DONG CBCA #### [facility] ([id number]) [address] [place] [address] 06684 Creatinine [Mass/Vol] 0.72 mg/dL Normal 0.40-1.00 [facility] Comment on above: Result Comment: METH OD TRACEABLE TO IDMS STANDARD Performed By: #### C DONG, CBCA #### [facility] ([id number]) [address] [place] [address] 00005 eGFR (CKD-EPI) NON-RACE DEPENDENT >90 Normal >59 [facility] Comment on above: Result Comment: Reported eGFR is based on the CKD-EPI 2020 equation that does not use a race coefficient. Performed By: #### C DONG, CBCA #### [facility] ([id number]) [address] [place] [address] 43876 Glucose [Mass/Vol] 103 mg/dL High 65-99 [facility] Comment on above: Performed By: #### C MP, CBCA #### [facility] ([id number]) [address] [place] [address] 60170 Potassium [Moles/Vol] 3.5 mmol/L Normal 3.5-5.0 [facility] Comment on above: Performed By: #### C MP, CBCA #### [facility] ([id number]) [address] [place] [address] 19421 Protein [Mass/Vol] 6.9 g/dL Normal 6.0-8.0 [facility] Comment on above: Performed By: #### C MP, CBCA #### [facility] ([id number]) [address] [place] [address] 65713 Sodium [Moles/Vol] 135 mmol/L Normal 134-146 [facility] Comment on above: Performed By: #### C MP, CBCA #### [facility] ([id number]) [address] [place] [address] 39720 Urea nitrogen [Mass/Vol] 16 mg/dL Normal 5-23 [facility] Comment on above: Performed By: #### C MP, CBCA #### [facility] ([id number]) [address] [place] [address] ABDOMEN AND PELVIS W CONT on 08-28-2024 CT ABDOMEN AND PELVIS W CONT CT ABDOMEN AND PELVIS W CONT Study: CT abdomen and pelvis with contrast History:Abdominal pain Protocol:CT abdomen and pelvis with contrast 100 mL Omnipaque 300 COMPARISON:02/28/2024 Findings: Lung bases:Normal Liver:Normal Spleen:Normal Gallbladder:Removed Bile ducts:No dilatation Pancreas:Normal Adrenals:Normal Kidneys:Normal Ureters:Normal Bladder:Not well distended limited evaluation Bowel:Stomach unremarkable. Small bowel is nondilated. Appendix. No evidence of diverticulitis. No large bowel dilatation. Reproductive organs:Uterus unremarkable. Cyst in the right ovary measuring 3.2 x 2.7 cm. In this patient's age. This most consistent with a physiologic cyst and does not require further evaluation Mesentry:No adenopathy Peritoneum:No free air or free fluid Retroperitoneum:No adenopathy Vessels:No aortic aneurysm Abdominal wall:No hernia Bones:Normal IMPRESSION: FINDINGS: A 3.2 cm benign-appearing, cystic lesion is seen in the right adnexa (series 2, image 67). No additional imaging or follow-up is recommended. CITATION: Recommendations for adnexal lesion management based on Singh et al., J Am Etienne Radiol 10:675-81 (2013). * All CT scans at this facility use dose modulation, iterative reconstruction, and/or weight based dosing when appropriate to reduce radiation dose to as low as reasonably achievable Finalized by Huang Burleson MD on 08/28/2024 8:12 PM Normal [facility] HCG ( test) Ql (U)o n 08-28-2024 Beta HCG ( test) Ql (U) Negative Normal NEG [facility] Comment on above: Performed By: #### 2 106-3 #### [facility] ([id number]) [address] [place] [address] 86983 URN MACROSCOPIC NURon 2023 BILIRUBIN MOLLY Small Abnormal NEG [facility] Comment on above: Performed By: #### N UM #### [facility] ([id number]) [address] [place] [address] 40522 BLOOD/HGB MOLLY Negative Normal NEG [facility] Comment on above: Performed By: #### N UM #### [facility] ([id number]) [address] [place] [address] 02682 GLUCOSE MOLLY Negative Normal NEG [facility] Comment on above: Performed By: #### N UM #### [facility] ([id number]) [address] [place] [address] 40363 KETONES MOLLY Negative Normal NEG [facility] Comment on above: Performed By: #### N UM #### [facility] ([id number]) [address] [place] [address] 01456 LEUKOCYTE ESTERASE MOLLY Negative Normal NEG [facility] Comment on above: Performed By: #### N UM #### [facility] ([id number]) [address] [place] [address] 99072 NITRITE MOLLY Negative Normal NEG [facility] Comment on above: Performed By: #### N UM #### [facility] ([id number]) [address] [place] [address] 05567 PH MOLLY 5.5 Normal 5.0-8.5 [facility] Comment on above: Performed By: #### N UM #### [facility] ([id number]) [address] [place] [address] 14950 PROTEIN MOLLY >=300 Abnormal NEG [facility] Comment on above: Performed By: #### N UM #### [facility] ([id number]) [address] [place] [address] 60745 SPECIFIC GRAVITY MOLLY >=1.030 Normal 1.003-1.035 [facility] Comment on above: Performed By: #### N UM #### [facility] ([id number]) [address] [place] [address] 66852 UROBILINOGEN MOLLY 0.2 eu/dL Normal <1.[address] [facility] Comment on above: Performed By: #### N UM #### [facility] ([id number]) [address] [place] [address] 46876 MHPT TRICHOMONAS/WET PREPon 07-01-2024 WET PREP TRIC BV MICHAELA Wet Prep Tric BV Michaela WP.BACT Bacteria^Bacteria [facility] WET PREP TRIC BV MICHAELA WP.CLUE Clue Cells^Clue Cells [facility] WET PREP TRIC BV MICHAELA WP.JEANNETTE Fungal Elements^Fungal Elements [facility] WET PREP TRIC BV MICHAELA WP.RBC RBC^RBC [facility] WET PREP TRIC BV MICHAELA WP.TRICH Trichomonas^Trichomon as [facility] WET PREP TRIC BV MICHAELA WP.WBC WBC^WBC [facility] No Panel Informationon 07-01 WET PREP TRIC BV MICHAELA F Few^Few [facility] WET PREP TRIC BV MICHAELA N None Seen^None Seen [facility] CBC AND AUTO DIFFon 02-28-20 24 ABSOLUTE BASOPHIL 0.1 X10E9/L Normal 0.0-0.2 [facility] Comment on above: Performed By: #### C DONG, 3039-3, , CBCA #### [facility] ([id number]) [address] [place] [address] 63852 ABSOLUTE NEUTROPHIL 8.4 X10E9/L High 1.5-6.6 [facility] Comment on above: Performed By: #### C DONG, 3039-12, , CBCA #### [facility] ([id number]) [address] [place] [address] 75233 Basophils/100 WBC (Bld) 0.9 % Normal [facility] Comment on above: Performed By: #### C DONG, 3039-12, , CBCA #### [facility] ([id number]) [address] [place] [address] 91315 Eosinophils (Bld) [#/Vol] 0.2 10*3/uL Normal 0.0-0.4 [facility] Comment on above: Performed By: #### C DONG, 3, , CBCA #### [facility] ([id number]) [address] [place] [address] 81794 Eosinophils/100 WBC (Bld) 2.1 % Normal [facility] Comment on above: Performed By: #### C DONG, 3039-12, , CBCA #### [facility] ([id number]) [address] [place] [address] 72519 Erythrocyte distribution width (RBC) [Ratio] 14.8 % Normal 11.5-15.0 [facility] Comment on above: Performed By: #### C DONG, 3039-12, , CBCA #### [facility] ([id number]) [address] [place] [address] 77223 Hematocrit (Bld) [Volume fraction] 38.8 % Normal 35-47 [facility] Comment on above: Performed By: #### C DONG, 3039-12, , CBCA #### [facility] ([id number]) [address] [place] [address] 72027 Hemoglobin (Bld) [Mass/Vol] 12.7 g/dL Normal 11.7-15.5 [facility] Comment on above: Performed By: #### C DONG, 3039-12, , CBCA #### [facility] ([id number]) [address] [place] [address] 20908 Lymphocytes (Bld) [#/Vol] 2.0 10*3/uL Normal 1.0-3.5 [facility] Comment on above: Performed By: #### C DONG, 3039-12, , CBCA #### [facility] ([id number]) [address] [place] [address] 22735 Lymphocytes/100 WBC (Bld) 17.0 % Normal [facility] Comment on above: Performed By: #### C DONG, 3039-12, , CBCA #### [facility] ([id number]) [address] [place] [address] 31249 MCH (RBC) [Entitic mass] 27.8 pg Normal 27-34 [facility] Comment on above: Performed By: #### C DONG, 3039-12, , CBCA #### [facility] ([id number]) [address] [place] [address] 31796 MCHC (RBC) [Mass/Vol] 32.8 g/dL Normal 32-36 [facility] Comment on above: Performed By: #### C DONG, 3, , CBCA #### [facility] ([id number]) [address] [place] [address] 31825 MCV (RBC) [Entitic vol] 85 fL Normal 80-100 [facility] Comment on above: Performed By: #### C DONG, 3039-12, , CBCA #### [facility] ([id number]) [address] [place] [address] 16080 Monocytes (Bld) [#/Vol] 0.7 10*3/uL Normal 0-0.9 [facility] Comment on above: Performed By: #### C DONG, 3039-12, , CBCA #### [facility] ([id number]) [address] [place] [address] 25237 Monocytes/100 WBC (Bld) 6.4 % Normal [facility] Comment on above: Performed By: #### C DONG, 3039-12, , CBCA #### [facility] ([id number]) [address] [place] [address] 68813 Neutrophils/100 WBC (Bld) 73.6 % Normal [facility] Comment on above: Performed By: #### C DONG, 3039-12, , CBCA #### [facility] ([id number]) [address] [place] [address] 36593 Platelet mean volume (Bld) [Entitic vol] 8.3 fL Normal 7-12 [facility] Comment on above: Performed By: #### C DONG, 3039-12, , CBCA #### [facility] ([id number]) [address] [place] [address] 62115 Platelets (Bld) [#/Vol] 297 10*3/uL Normal 150-450 [facility] Comment on above: Performed By: #### C DONG, 3039-3, , CBCA #### [facility] ([id number]) [address] [place] [address] 87004 RBC COUNT 4.58 X10E12/L Normal 3.80-5.20 [facility] Comment on above: Performed By: #### C DONG, 3039-12, , CBCA #### [facility] ([id number]) [address] [place] [address] 87324 WBC (Bld) [#/Vol] 11.4 10*3/uL High 4.0-11.0 [facility] Comment on above: Performed By: #### C DONG, 3039-12, , CBCA #### [facility] ([id number]) [address] [place] [address] 72181 COMPREHENSIVE METABOLIC PANE Carlin 02-28-2024 Albumin [Mass/Vol] 4.0 g/dL Normal 3.2-5.3 [facility] Comment on above: Performed By: #### C DONG, 3039-12, , CBCA #### [facility] ([id number]) [address] [place] [address] 52218 ALP [Catalytic activity/Vol] 87 U/L Normal 39-130 [facility] Comment on above: Performed By: #### C DONG, 3039-12, , CBCA #### [facility] ([id number]) [address] [place] [address] 72934 ALT [Catalytic activity/Vol] 20 U/L Normal 0-31 [facility] Comment on above: Performed By: #### C DONG, 3039-12, , CBCA #### [facility] ([id number]) [address] [place] [address] 40082 Anion gap [Moles/Vol] 11 mmol/L Normal 5-15 [facility] Comment on above: Performed By: #### C DONG, 3039-12, , CBCA #### [facility] ([id number]) [address] [place] [address] 37072 AST [Catalytic activity/Vol] 27 U/L Normal 0-41 [facility] Comment on above: Performed By: #### C DONG, 3039-12, , CBCA #### [facility] ([id number]) [address] [place] [address] 07038 Bilirubin [Mass/Vol] 0.8 mg/dL Normal 0.3-1.2 [facility] Comment on above: Result Comment: RESU LTS QUESTIONABLE DUE TO HEMOLYSIS Performed By: #### C DONG, 3039-12, , CBCA #### [facility] ([id number]) [address] [place] [address] 68145 Calcium [Mass/Vol] 8.5 mg/dL Normal 8.5-10.5 [facility] Comment on above: Performed By: #### C DONG, 3039-12, , CBCA #### [facility] ([id number]) [address] [place] [address] 78237 Chloride [Moles/Vol] 106 mmol/L Normal 98-109 [facility] Comment on above: Performed By: #### C DONG, 3039-12, , CBCA #### [facility] ([id number]) [address] [place] [address] 91782 CO2 [Moles/Vol] 18 mmol/L Low 22-32 [facility] Comment on above: Performed By: #### C DONG, 3039-12, , CBCA #### [facility] ([id number]) [address] [place] [address] 97170 Creatinine [Mass/Vol] 0.60 mg/dL Normal 0.40-1.00 [facility] Comment on above: Result Comment: METH OD TRACEABLE TO IDMS STANDARD Performed By: #### C DONG, 3039-12, , CBCA #### [facility] ([id number]) [address] [place] [address] 29499 eGFR (CKD-EPI) NON-RACE DEPENDENT >90 Normal >59 [facility] Comment on above: Result Comment: Reported eGFR is based on the CKD-EPI 2020 equation that does not use a race coefficient. Performed By: #### C DONG, 3039-12, , CBCA #### [facility] ([id number]) [address] [place] [address] 61004 Glucose [Mass/Vol] 84 mg/dL Normal 65-99 [facility] Comment on above: Performed By: #### C DONG, 3039-12, , CBCA #### [facility] ([id number]) [address] [place] [address] 22759 Potassium [Moles/Vol] 4.5 mmol/L Normal 3.5-5.0 [facility] Comment on above: Result Comment: SPEC IMEN HEMOLYZED, RESULTS INCREASED Performed By: #### C DONG, 3039-12, , CBCA #### [facility] ([id number]) [address] [place] [address] 45679 Protein [Mass/Vol] 7.8 g/dL Normal 6.0-8.0 [facility] Comment on above: Performed By: #### C DONG, 3039-12, , CBCA #### [facility] ([id number]) [address] [place] [address] Sodium [Moles/Vol] 135 mmol/L Normal 134-146 [facility] Comment on above: Performed By: #### C MP, 3040-3, 73815-7, CBCA #### [facility] ([id number]) [address] [place] [address] Urea nitrogen [Mass/Vol] 12 mg/dL Normal 5-23 [facility] Comment on above: Performed By: #### C MP, 3040-3, 83689-1, CBCA #### [facility] ([id number]) [address] [place] [address] ABDOMEN AND PELVIS W CONT on [...] Crawford MD on 02/28/2024 3:45 AM Normal [facility] HCG ( test) Ql (U)o n 02-28-2024 Beta HCG ( test) Ql (U) Negative Normal NEG [facility] Comment on above: Performed By: #### 2 106-3 #### [facility] ([id number]) [address] [place] [address] 77687 LIPASEon 02-28-2024 Lipase [Catalytic activity/Vol] 28 U/L Normal 17-40 [facility] Comment on above: Performed By: #### C DONG, 3040-3, , CBCA #### [facility] ([id number]) [address] [place] [address] 64287 MAGNESIUMon 02-28-2024 Magnesium [Mass/Vol] 2.1 mg/dL Normal 1.8-2.6 [facility] Comment on above: Performed By: #### C DONG, 3040-3, , CBCA #### [facility] ([id number]) [address] [place] [address] 08441 URN MACROSCOPIC NURon 2023 BILIRUBIN MOLLY Negative Normal NEG [facility] Comment on above: Performed By: #### N UM #### [facility] ([id number]) [address] [place] [address] [place] [address] BLOOD/HGB MOLLY Trace Abnormal NEG [facility] Comment on above: Performed By: #### N UM #### [facility] ([id number]) [address] [place] [address] [place] [address] GLUCOSE MOLLY Negative Normal NEG [facility] Comment on above: Performed By: #### N UM #### [facility] ([id number]) [address] [place] [address] [place] [address] KETONES MOLLY Negative Normal NEG [facility] Comment on above: Performed By: #### N UM #### [facility] ([id number]) [address] [place] [address] [place] [address] LEUKOCYTE ESTERASE MOLLY Negative Normal NEG [facility] Comment on above: Performed By: #### N UM #### [facility] ([id number]) [address] [place] [address] [place] [address] NITRITE MOLLY Negative Normal NEG [facility] Comment on above: Performed By: #### N UM #### [facility] ([id number]) [address] [place] [address] 51833 PH MOLLY 5.5 Normal 5.0-8.5 [facility] Comment on above: Performed By: #### N UM #### [facility] ([id number]) [address] [place] [address] 84000 PROTEIN MOLLY >=300 Abnormal NEG [facility] Comment on above: Performed By: #### N UM #### [facility] ([id number]) [address] [place] [address] 11979 SPECIFIC GRAVITY MOLLY >=1.030 Normal 1.003-1.035 [facility] Comment on above: Performed By: #### N UM #### [facility] ([id number]) [address] [place] [address] 88111 UROBILINOGEN MOLLY 0.2 eu/dL Normal <1.[address] [facility] Comment on above: Performed By: #### N UM #### [facility] ([id number]) [address] [place] [address] 75042 PRBC LEUKOREDUCEDon 12-25-19 23 ABO and Rh group Nom (Bld) Cross Match Result Compatible Unit Blood Type O Pos Unit Number [id number] Status Information Transfused Product ID Red Blood Cells Product Code [id number] Cross Match Result Compatible Unit Blood Type O Pos Unit Number [id number] Status Information Transfused Product ID Red Blood Cells Product Code [id number] Normal [facility] Comment on above: Performed By: #### P RBC ####[facility] [address] [place] [address]DrJael Benoit Diggs CBC AUTO DIFFon 12-21-2022 BASO # 0.1 103/ul Normal 0.0-0.1 [facility] Comment on above: Performed By: #### C BC ####[facility] [address] [place] [phone]. Benoit Diggs Basophils/100 WBC (Bld) 1.2 % Normal 0.2-2.0 [facility] Comment on above: Performed By: #### C BC ####[facility] [address] [place], [place] [address]Dr. Benoit Diggs EO # 0.4 103/ul Normal 0.0-0.[address] [facility] Comment on above: Performed By: #### C BC ####[facility] [address] [place], [place] [address]Dr. Benoit Diggs Eosinophils/100 WBC (Bld) 4.5 % Normal 0.9-7.0 [facility] Comment on above: Performed By: #### C BC ####[facility] [address] [place], [place] [address]Dr. Benoit Diggs Erythrocyte distribution width (RBC) [Ratio] 16.6 % Critically high 11.0-15.0 [facility] Comment on above: Performed By: #### C BC ####[facility] [address] [place], [place] [address]Dr. Benoit Diggs Hematocrit (Bld) [Volume fraction] 40.3 % Normal 36.0-48.0 [facility] Comment on above: Performed By: #### C BC ####[facility] [address] [place], [place] [address]Dr. Benoit Diggs Hemoglobin (Bld) [Mass/Vol] 12.6 g/dL Normal 12.0-16.0 [facility] Comment on above: Performed By: #### C BC ####[facility] [address] [place], [place] [address]Dr. Benoit Diggs IG # 0.04 10e3/ul Critically high 0.00-0.03 [facility] Comment on above: Performed By: #### C BC ####[facility] [address] [place], [place] [address]Dr. Benoit Diggs IG % 0.5 % Normal 0.0-0.5 [facility] Comment on above: Performed By: #### C BC ####[facility] [address] [place] [phone]. Benoit Dontae LYMPH # 3.0 103/ul Normal 1.2-3.[address] [facility] Comment on above: Performed By: #### C BC ####[facility] [address] [place] [phone]. Benoit Dontae Lymphocytes/100 WBC (Bld) 36.0 % Normal 20.5-60.[address] [facility] Comment on above: Performed By: #### C BC ####[facility] [address] [place] [phone]. Benoit Diggs MANUAL DIFF REQ NO Normal [facility] Comment on above: Performed By: #### C BC ####[facility] [address] [place] [phone]. Karyaurora Diggs MCH (RBC) [Entitic mass] 25.3 pg Critically low 26.7-34.0 [facility] Comment on above: Performed By: #### C BC ####[facility] [address] [place] [phone]. Benoit Dontae MCHC (RBC) [Mass/Vol] 31.3 g/dL Normal 29.9-35.[address] [facility] Comment on above: Performed By: #### C BC ####[facility] [address] [place] [phone]. Benoit Diggs MCV (RBC) [Entitic vol] 80.9 fL Critically low 81.0-99.0 [facility] Comment on above: Performed By: #### C BC ####[facility] [address] [place] [phone]. Karyaurora Dontae MONO # 0.4 103/ul Normal 0.3-0.[address] [facility] Comment on above: Performed By: #### C BC ####[facility] [address] [place] [phone]. Benoit Diggs Monocytes/100 WBC (Bld) 4.8 % Normal 1.7-12.0 [facility] Comment on above: Performed By: #### C BC ####[facility] [address] [place] [phone]. Benoit Diggs NEUT # 4.4 103/ul Normal 1.4-6.5 [facility] Comment on above: Performed By: #### C BC ####[facility] [address] [place] [phone]. Benoit Diggs Neutrophils/100 WBC (Bld) 53.0 % Normal 43.0-75.[address] [facility] Comment on above: Performed By: #### C BC ####[facility] [address] [place] [address]Dr. Benoit Diggs Platelet mean volume (Bld) [Entitic vol] 10.8 fL Normal 9.5-13.5 [facility] Comment on above: Performed By: #### C BC ####[facility] [address] [place] [address]Dr. Benoit Diggs PLT 410 103/ul Normal 150-[address] [facility] Comment on above: Performed By: #### C BC ####[facility] [address] [place] [address]Dr. Benoit Diggs RBC 4.98 106/ul Normal 4.20-5.[address] [facility] Comment on above: Performed By: #### C BC ####[facility] [address] [place] [address]Dr. Benoit Diggs WBC 8.3 103/ul Normal 4.0-11.[address] [facility] Comment on above: Performed By: #### C BC ####[facility] [address] [place] [phone]. Benoit Diggs GLYCOHEMOGLOBIN A1Con 2022 ADA RECOMMENDATION SEE BELOW Normal [facility] Comment on above: Result Comment: ADA RECOMMENDED LIMIT 4.0 - 6.0 ADA THERAPEUTIC TARGET < 7.0 ACTION SUGGESTED > 7.0 Performed By: #### A 1C ####[facility] [address] [place] [address]Dr. Benoit Diggs Glucose [Mass/Vol] 100 mg/dL Normal [facility] Comment on above: Performed By: #### A 1C ####[facility] Z[address] [place] [phone]. Benoit Diggs HbA1c (Bld) [Mass fraction] 5.1 % Normal 4.5-6.2 [facility] Comment on above: Performed By: #### A 1C ####[facility] [address] [place] [phone]. Benoit Diggs LIPID PROFILEon 12-21-2022 CHOL-HDL RATIO NORM SEE BELOW Normal [facility] Comment on above: Result Comment: 3.3 - 4.4 LOW RISK 4.4 - 7.1 AVERAGE RISK 7.1 - 11.0 MODERATE RISK >11.0 HIGH RISK Performed By: #### L IVER, LIPID, BMP, TSH ####[facility] [address] [place] [phone]. Benoit Diggs Cholesterol [Mass/Vol] 184 mg/dL Normal <=200 [facility] Comment on above: Performed By: #### L IVER, LIPID, BMP, TSH ####[facility] [address]ru[address] [place] [phone]. Benoit Diggs Cholesterol in HDL [Mass/Vol] 52 mg/dL Normal 40-60 [facility] Comment on above: Performed By: #### L IVER, LIPID, BMP, TSH ####[facility] [address]ys[address] [place] [phone]. Benoit Diggs Cholesterol in LDL [Mass/Vol] 114.8 mg/dL Normal [facility] Comment on above: Performed By: #### L IVER, LIPID, BMP, TSH ####[facility] [address]lmx13[address] [place] [phone]. Benoit Dgigs Cholesterol.total/Ch olesterol in HDL [Mass ratio] 3.5 {ratio} Normal [facility] Comment on above: Performed By: #### L IVER, LIPID, BMP, TSH ####[facility] [address] [place] [phone]. Benoit Diggs HDL NORMAL > or = 60 mg/dl - LO W CARDIOVASCULAR RISK <40 mg/dl - HIGH CARDIOVASCULAR RISK Normal [facility] Comment on above: Performed By: #### L IVER, LIPID, BMP, TSH ####[facility] [address] [place] [address]Dr. Benoit Diggs LDL CALC NORMAL SEE BELOW Normal [facility] Comment on above: Result Comment: <100 mg/dl OPTIMAL 100 - 129 mg/dl NEAR OR ABOVE OPTIMAL 130 - 159 mg/dl BORDERLINE HIGH 160 - 189 mg/dl HIGH >190 mg/dl VERY HIGH Performed By: #### L IVER, LIPID, BMP, TSH ####[facility] [address] [place] [address]Dr. Benoit Diggs Triglyceride [Mass/Vol] 86 mg/dL Normal <=150 [facility] Comment on above: Performed By: #### L IVER, LIPID, BMP, TSH ####[facility] [address]ysihoz[address] [place] [address]Dr. Benoit Diggs VLDL CALC 17.2 mg/dL Normal [facility] Comment on above: Performed By: #### L IVER, LIPID, BMP, TSH ####[facility] [address]rmn[address] [place] [address]Dr. Benoit Diggs LIVER PROFILEon 12-21-2022 Albumin [Mass/Vol] 3.3 g/dL Critically low 3.4-5.[address] [facility] Comment on above: Performed By: #### L IVER, LIPID, BMP, TSH ####[facility] [address]ts[address] [place] [address]Dr. Benoit Diggs Albumin/Globulin [Mass ratio] 0.8 {ratio} Normal [facility] Comment on above: Performed By: #### L IVER, LIPID, BMP, TSH ####[facility] [address] [place] [address]Dr. Benoit Diggs ALP [Catalytic activity/Vol] 110 U/L Normal 46-116 [facility] Comment on above: Performed By: #### L IVER, LIPID, BMP, TSH ####[facility] [address] [place] [address]Dr. Benoit Diggs ALT [Catalytic activity/Vol] 25 U/L Normal 14-[address] [facility] Comment on above: Performed By: #### L IVER, LIPID, BMP, TSH ####[facility] [address]vwrkvv[address] [place] [address]Dr. Benoit Diggs AST [Catalytic activity/Vol] 20 U/L Normal 15-37 [facility] Comment on above: Performed By: #### L IVER, LIPID, BMP, TSH ####[facility] [address]abp[address] [place] [address]Dr. Benoit Diggs BILI, CONJUGATED 0.1 mg/dL Normal 0.0-0.2 [facility] Comment on above: Performed By: #### L IVER, LIPID, BMP, TSH ####[facility] F[address]zzkfj[address] [place] [address]Dr. Benoit Diggs Bilirubin [Mass/Vol] 0.4 mg/dL Normal 0.2-1.[address] [facility] Comment on above: Performed By: #### L IVER, LIPID, BMP, TSH ####[facility] F[address]swdjvnpw39[address] [place] [address]DrJael Diggs Globulin (S) [Mass/Vol] 3.9 g/dL Normal [facility] Comment on above: Performed By: #### L IVER, LIPID, BMP, TSH ####[facility] [address]ew[address] [place] [address]DrJael Diggs Protein [Mass/Vol] 7.2 g/dL Normal 6.4-8.2 [facility] Comment on above: Performed By: #### L IVER, LIPID, BMP, TSH ####[facility] [address]rohvmbaw[address] [place] [address]DrJael Diggs PROF CHEM 8 (BAS METB)on Anion gap [Moles/Vol] 13.2 mmol/L Normal [facility] Comment on above: Performed By: #### C BC #### [facility] [address] [place] [address] [address] Benoit Diggs Calcium [Mass/Vol] 9.2 mg/dL Normal 8.5-10.1 [facility] Comment on above: Performed By: #### C BC #### [facility] [address] [place] [address] [address] Benoit Diggs Chloride [Moles/Vol] 108 mmol/L Critically high 98-[address] [facility] Comment on above: Performed By: #### C BC #### [facility] [address] [place] [address] [address] Benoit Diggs CO2 [Moles/Vol] 27.9 mmol/L Normal 21.0-32.0 [facility] Comment on above: Performed By: #### C BC #### [facility] [address] [place] [address] [address] Benoit Diggs Creatinine [Mass/Vol] 0.62 mg/dL Normal 0.55-1.02 [facility] Comment on above: Performed By: #### C BC #### [facility] [address] [place] [address] [address] Benoit Diggs EGFR-AF LITHUANIAN >60 Normal >=60 [facility] Comment on above: Performed By: #### C BC #### [facility] [address] [place] [address] [address] Benoit Diggs EGFR-NON AF LITHUANIAN >60 Normal >=60 [facility] Comment on above: Performed By: #### C BC #### [facility] [address] [place] [address] [address] Benoit Diggs Glucose [Mass/Vol] 92 mg/dL Normal 74-106 [facility] Comment on above: Performed By: #### C BC #### [facility] [address] [place] [address] [address] Benoit Diggs Potassium [Moles/Vol] 4.1 mmol/L Normal 3.5-5.[address] [facility] Comment on above: Performed By: #### C BC #### [facility] [address] [place] [address] [address] Benoit Diggs Sodium [Moles/Vol] 145 mmol/L Normal 136-145 [facility] Comment on above: Performed By: #### C BC #### [facility] [address] [place] [address] Dr. Benoit Diggs Urea nitrogen [Mass/Vol] 8.0 mg/dL Normal 7.0-18.0 [facility] Comment on above: Performed By: #### C BC #### [facility] [address] [place] [address] Dr. Benoit Diggs Urea nitrogen/Creatinine [Mass ratio] 12.9 mg/mg Normal [facility] Comment on above: Performed By: #### C BC #### [facility] [address] [place] [address] Dr. Benoit Diggs TSHon 12-21-2022 TSH 1.318 uIU/mL Normal 0.358-3.740 [facility] Comment on above: Performed By: #### C BC #### [facility] [address] [place] [address] Dr. Benoit Diggs CBC AUTO DIFFon 12-04-2022 BASO # 0.1 103/ul Normal 0.0-0.1 [facility] Comment on above: Performed By: #### C BC #### [facility] [address] [place] [address] Dr. Benoit Diggs Basophils/100 WBC (Bld) 0.7 % Normal 0.2-2.0 [facility] Comment on above: Performed By: #### C BC #### [facility] [address] [place] [address] Dr. Benoit Diggs EO # 0.4 103/ul Normal 0.0-0.7 [facility] Comment on above: Performed By: #### C BC #### [facility] [address] [place] [address] Dr. Benoit Diggs Eosinophils/100 WBC (Bld) 3.8 % Normal 0.9-7.0 [facility] Comment on above: Performed By: #### C BC #### [facility] [address] [place] [address] Dr. Benoit Diggs Erythrocyte distribution width (RBC) [Ratio] 15.2 % Critically high 11.0-15.0 [facility] Comment on above: Performed By: #### C BC #### [facility] [address] [address] [address] Benoit Diggs Hematocrit (Bld) [Volume fraction] 28.7 % Critically low 36.0-48.0 [facility] Comment on above: Performed By: #### C BC #### [facility] [address] [address] [address] Benoit Diggs Hemoglobin (Bld) [Mass/Vol] 9.1 g/dL Critically low 12.0-16.0 [facility] Comment on above: Performed By: #### C BC #### [facility] [address] [address] [address] Benoit Diggs IG # 0.05 10e3/ul Critically high 0.00-0.03 [facility] Comment on above: Performed By: #### C BC #### [facility] [address] [place] [address] Dr. Benoit Diggs IG % 0.5 % Normal 0.0-0.5 [facility] Comment on above: Performed By: #### C BC #### [facility] [address] [place] [address] Dr. Benoit Diggs LYMPH # 3.3 103/ul Normal 1.2-3.8 [facility] Comment on above: Performed By: #### C BC #### [facility] [address] [place] [address] Dr. Benoit Diggs Lymphocytes/100 WBC (Bld) 31.8 % Normal 20.5-60.0 [facility] Comment on above: Performed By: #### C BC #### [facility] [address] [place] [address] Dr. Benoit Diggs MANUAL DIFF REQ NO Normal [facility] Comment on above: Performed By: #### C BC #### [facility] [address] [place] [address] Dr. Benoit Diggs MCH (RBC) [Entitic mass] 25.3 pg Critically low 26.7-34.0 [facility] Comment on above: Performed By: #### C BC #### [facility] [address] [address] [address] Benoit Diggs MCHC (RBC) [Mass/Vol] 31.7 g/dL Normal 29.9-35.[address] [facility] Comment on above: Performed By: #### C BC #### [facility] [address] [address] [address] Benoit Diggs MCV (RBC) [Entitic vol] 79.9 fL Critically low 81.0-99.[address] [facility] Comment on above: Performed By: #### C BC #### [facility] [address] [address] [address] Benoit Diggs MONO # 0.7 103/ul Normal 0.3-0.[address] [facility] Comment on above: Performed By: #### C BC #### [facility] [address] [place] [address] Dr. Benoit Diggs Monocytes/100 WBC (Bld) 7.2 % Normal 1.7-12.0 [facility] Comment on above: Performed By: #### C BC #### [facility] [address] [place] [address] Dr. Benoit Diggs NEUT # 5.8 103/ul Normal 1.4-6.5 [facility] Comment on above: Performed By: #### C BC #### [facility] [address] [place] [address] Dr. Benoit Diggs Neutrophils/100 WBC (Bld) 56.0 % Normal 43.0-75.[address] [facility] Comment on above: Performed By: #### C BC #### [facility] [address] [place] [address] Dr. Benoit Diggs Platelet mean volume (Bld) [Entitic vol] 10.5 fL Normal 9.5-13.[address] [facility] Comment on above: Performed By: #### C BC #### [facility] [address] [place] [address] Dr. Benoit Diggs PLT 152 103/ul Normal 150-[address] [facility] Comment on above: Performed By: #### C BC #### [facility] [address] [address] [address] Benoit Diggs RBC 3.59 106/ul Critically low 4.20-5.40 [facility] Comment on above: Performed By: #### C BC #### [facility] [address] [place] [address] Dr. Benoit Diggs WBC 10.3 103/ul Normal 4.0-11.[address] [facility] Comment on above: Performed By: #### C BC #### [facility] [address] [place] [address] Dr. Benoit Diggs CBC AUTO DIFFon 12-03-2022 BASO # 0.0 103/ul Normal 0.0-0.[address] [facility] Comment on above: Performed By: #### C BC #### [facility] [address] [place] [address] Dr. Benoit Diggs Basophils/100 WBC (Bld) 0.4 % Normal 0.2-2.0 [facility] Comment on above: Performed By: #### C BC #### [facility] [address] [place] [address] Dr. Benoit Diggs EO # 0.3 103/ul Normal 0.0-0.[address] [facility] Comment on above: Performed By: #### C BC #### [facility] [address] [place] [address] Dr. Benoit Diggs Eosinophils/100 WBC (Bld) 3.1 % Normal 0.9-7.[address] [facility] Comment on above: Performed By: #### C BC #### [facility] [address] [place] [address] Dr. Benoit Diggs Erythrocyte distribution width (RBC) [Ratio] 15.5 % Critically high 11.0-15.[address] [facility] Comment on above: Performed By: #### C BC #### [facility] [address] [place] [address] Dr. Benoit Diggs Hematocrit (Bld) [Volume fraction] 22.0 % Critically low 36.0-48.0 [facility] Comment on above: Performed By: #### C BC #### [facility] [address] [place] [address] Dr. Benoit Diggs Hemoglobin (Bld) [Mass/Vol] 6.8 g/dL Critically low 12.0-16.[address] [facility] Comment on above: Performed By: #### C BC #### [facility] [address] [place] [address] Dr. Benoit Diggs IG # 0.05 10e3/ul Critically high 0.00-0.03 [facility] Comment on above: Performed By: #### C BC #### [facility] [address] [place] [address] Dr. Benoit Diggs IG % 0.5 % Normal 0.0-0.5 [facility] Comment on above: Performed By: #### C BC #### [facility] [address] [place] [address] Dr. Benoit Diggs LYMPH # 2.9 103/ul Normal 1.2-3.[address] [facility] Comment on above: Performed By: #### C BC #### [facility] [address] [place] [address] Dr. Benoit Diggs Lymphocytes/100 WBC (Bld) 31.0 % Normal 20.5-60.0 [facility] Comment on above: Performed By: #### C BC #### [facility] [address] [place] [address] Dr. Benoit Diggs MANUAL DIFF REQ NO Normal [facility] Comment on above: Performed By: #### C BC #### [facility] [address] [place] [address] Dr. Benoit Diggs MCH (RBC) [Entitic mass] 24.6 pg Critically low 26.7-34.[address] [facility] Comment on above: Performed By: #### C BC #### [facility] [address] [place] [address] Dr. Benoit Diggs MCHC (RBC) [Mass/Vol] 30.9 g/dL Normal 29.9-35.[address] [facility] Comment on above: Performed By: #### C BC #### [facility] [address] [place] [address] Dr. Benoti Diggs MCV (RBC) [Entitic vol] 79.7 fL Critically low 81.0-99.0 [facility] Comment on above: Performed By: #### C BC #### [facility] [address] [place] [address] Dr. Benoit Diggs MONO # 0.8 103/ul Normal 0.3-0.8 [facility] Comment on above: Performed By: #### C BC #### [facility] [address] [address] [address] Benoit Diggs Monocytes/100 WBC (Bld) 7.9 % Normal 1.7-12.0 [facility] Comment on above: Performed By: #### C BC #### [facility] [address] [place] [address] Dr. Benoit Diggs NEUT # 5.4 103/ul Normal 1.4-6.5 [facility] Comment on above: Performed By: #### C BC #### [facility] [address] [place] [address] Dr. Benoit Diggs Neutrophils/100 WBC (Bld) 57.1 % Normal 43.0-75.0 [facility] Comment on above: Performed By: #### C BC #### [facility] [address] [place] [address] Dr. Benoit Diggs Platelet mean volume (Bld) [Entitic vol] 11.9 fL Normal 9.5-13.[address] [facility] Comment on above: Performed By: #### C BC #### [facility] [address] [place] [address] Dr. Benoit Diggs PLT 180 103/ul Normal 150-[address] [facility] Comment on above: Performed By: #### C BC #### [facility] [address] [place] [address] Dr. Benoit Diggs RBC 2.76 106/ul Critically low 4.20-5.40 [facility] Comment on above: Performed By: #### C BC #### [facility] [address] [place] [address] Dr. Benoit Diggs WBC 9.5 103/ul Normal 4.0-11.[address] [facility] Comment on above: Performed By: #### C BC #### [facility] [address] [address] [address] Benoit Diggs AMNISUREon 12-01-2022 AMNISURE Negative Normal NEGATIVE [facility] Comment on above: Performed By: #### C BC #### [facility] [address] [address] [address] Benoit Diggs CBC AUTO DIFFon 12-01-2022 BASO # 0.1 103/ul Normal 0.0-0.1 [facility] Comment on above: Performed By: #### C BC ####[facility] [address] [address]DrJael Diggs Basophils/100 WBC (Bld) 0.6 % Normal 0.2-2.0 [facility] Comment on above: Performed By: #### C BC ####[facility] [address] [place], [place] [address]Dr. Benoit Diggs EO # 0.4 103/ul Normal 0.0-0.[address] [facility] Comment on above: Performed By: #### C BC ####[facility] [address] [place], [place] [address]Dr. Benoit Diggs Eosinophils/100 WBC (Bld) 3.5 % Normal 0.9-7.0 [facility] Comment on above: Performed By: #### C BC ####[facility] [address] [address]DrJael Diggs Erythrocyte distribution width (RBC) [Ratio] 15.4 % Critically high 11.0-15.[address] [facility] Comment on above: Performed By: #### C BC ####[facility] [address] [place], [place] [address]DrJael Diggs Hematocrit (Bld) [Volume fraction] 26.4 % Critically low 36.0-48.[address] [facility] Comment on above: Performed By: #### C BC ####[facility] [address] [place], [place] [address]DrJael Diggs Hemoglobin (Bld) [Mass/Vol] 8.4 g/dL Critically low 12.0-16.0 [facility] Comment on above: Performed By: #### C BC ####[facility] [address] [address]DrJael Diggs IG # 0.04 10e3/ul Critically high 0.00-0.03 [facility] Comment on above: Performed By: #### C BC ####[facility] [address] [address]DrJael Diggs IG % 0.4 % Normal 0.0-0.[address] [facility] Comment on above: Performed By: #### C BC ####[facility] [address] [place], [place] [address]DrJael Diggs LYMPH # 2.8 103/ul Normal 1.2-3.[address] [facility] Comment on above: Performed By: #### C BC ####[facility] [address] [place], [place] [address]DrJael Diggs Lymphocytes/100 WBC (Bld) 26.9 % Normal 20.5-60.0 [facility] Comment on above: Performed By: #### C BC ####[facility] [address] [place], [place] [address]DrJael Diggs MANUAL DIFF REQ NO Normal [facility] Comment on above: Performed By: #### C BC ####[facility] [address] [address]DrJael Diggs MCH (RBC) [Entitic mass] 24.7 pg Critically low 26.7-34.[address] [facility] Comment on above: Performed By: #### C BC ####[facility] [address] [place], [place] [address]DrJael Diggs MCHC (RBC) [Mass/Vol] 31.8 g/dL Normal 29.9-35.[address] [facility] Comment on above: Performed By: #### C BC ####[facility] [address] [place], [place] [address]DrJael Diggs MCV (RBC) [Entitic vol] 77.6 fL Critically low 81.0-99.[address] [facility] Comment on above: Performed By: #### C BC ####[facility] [address] [place], [place] [address]Dr. Benoit Diggs MONO # 0.7 103/ul Normal 0.3-0.[address] [facility] Comment on above: Performed By: #### C BC ####[facility] [address] [place], [place] [address]Dr. Benoit Diggs Monocytes/100 WBC (Bld) 6.2 % Normal 1.7-12.[address] [facility] Comment on above: Performed By: #### C BC ####[facility] [address] [place], [place] [address]Dr. Benoit Diggs NEUT # 6.5 103/ul Normal 1.4-6.[address] [facility] Comment on above: Performed By: #### C BC ####[facility] [address] [place], [place] [address]Dr. Benoit Diggs Neutrophils/100 WBC (Bld) 62.4 % Normal 43.0-75.[address] [facility] Comment on above: Performed By: #### C BC ####[facility] [address] [place], [place] [address]Dr. Benoit Diggs Platelet mean volume (Bld) [Entitic vol] 11.0 fL Normal 9.5-13.[address] [facility] Comment on above: Performed By: #### C BC ####[facility] [address] [place], [place] [address]Dr. Benoit Diggs PLT 215 103/ul Normal 150-[address] [facility] Comment on above: Performed By: #### C BC ####[facility] [address] [place], [place] [address]Dr. Benoit Dontae RBC 3.40 106/ul Critically low 4.20-5.40 [facility] Comment on above: Performed By: #### C BC ####[facility] [address] [place], [place] [address]Dr. Karyaurora Dontae WBC 10.4 103/ul Normal 4.0-11.0 [facility] Comment on above: Performed By: #### C BC ####[facility] [address] [address]Dr. Benoit Diggs DRUG SCREEN RAPID (URINE)on 12-01-2022 AMP Negative Normal NEGATIVE [facility] Comment on above: Performed By: #### C BC #### [facility] [address] [address] [address] Benoit Diggs BAR Negative Normal NEGATIVE [facility] Comment on above: Performed By: #### C BC #### [facility] [address] [address] [address] Benoit Diggs BUP Negative Normal NEGATIVE [facility] Comment on above: Performed By: #### C BC #### [facility] [address] [address] [address] Benoit Diggs BZO Negative Normal NEGATIVE [facility] Comment on above: Performed By: #### C BC #### [facility] [address] [place] [address] Dr. Benoit Diggs JOSE MANUEL Negative Normal NEGATIVE [facility] Comment on above: Performed By: #### C BC #### [facility] [address] [place] [address] Dr. Benoit Diggs CUT-OFFS SEE BELOW Normal [facility] Comment on above: Result Comment: AMP (Amphetamine): [...] ng/mL Performed By: #### C BC #### [facility] [address] [place] [address] Dr. Benoit Diggs DRUG CUT HEADER DRUG CLASS TEST SYSTEM CUT-OFF CONCENTRATIONS ARE FOLLOWS: Normal [facility] Comment on above: Performed By: #### C BC #### [facility] [address] [place] [address] Dr. Benoit Diggs mAMP Negative Normal NEGATIVE [facility] Comment on above: Performed By: #### C BC #### [facility] [address] [place] [address] Dr. Benoit Diggs MTD Negative Normal NEGATIVE [facility] Comment on above: Performed By: #### C BC #### [facility] [address] [place] [address] Dr. Benoit Diggs OPI Negative Normal NEGATIVE [facility] Comment on above: Performed By: #### C BC #### [facility] [address] [place] [address] Dr. Benoit Diggs OXY Negative Normal NEGATIVE [facility] Comment on above: Performed By: #### C BC #### [facility] [address] [place] [address] Dr. Benoit Diggs PCP Negative Normal NEGATIVE [facility] Comment on above: Performed By: #### C BC #### [facility] [address] [place] [address] Dr. Benoit Diggs PPX Negative Normal NEGATIVE [facility] Comment on above: Performed By: #### C BC #### [facility] [address] [place] [address] Dr. Benoit Diggs TCA Negative Normal NEGATIVE [facility] Comment on above: Performed By: #### C BC #### [facility] [address] [place] [address] Dr. Benoit Diggs THC Negative Normal NEGATIVE [facility] Comment on above: Performed By: #### C BC #### [facility] [address] [place] [address] Dr. Benoit Diggs TYPE AND SCREENon 12-01-2022 TYPE AND SCREEN Negative Normal [facility] Comment on above: Performed By: #### T NS #### [facility] [address] [place] [address] Dr. Benoit Diggs UA (CLEAN/CATCH) B2B SALES PROFESSIONAL/MICRO I F IND.on 12-01-2022 Bilirubin Ql (U) Negative Normal NEGATIVE [facility] Comment on above: Performed By: #### C BC #### [facility] [address] [place] [address] Dr. Benoit Diggs Clarity (U) CLEAR Normal CLEAR [facility] Comment on above: Performed By: #### C BC #### [facility] [address] [place] [address] Dr. Benoit Diggs Color (U) YELLOW Normal YELLOW [facility] Comment on above: Performed By: #### C BC #### [facility] [address] [place] [address] Dr. Benoit Diggs Glucose Ql (U) Negative Normal NEGATIVE [facility] Comment on above: Performed By: #### C BC #### [facility] [address] [place] [address] Dr. Benoit Diggs Hemoglobin Ql (U) Negative Normal NEGATIVE [facility] Comment on above: Performed By: #### C BC #### [facility] [address] [place] [address] Dr. Benoit Diggs Ketones Ql (U) Negative Normal NEGATIVE [facility] Comment on above: Performed By: #### C BC #### [facility] [address] [place] [address] Dr. Benoit Diggs LEUKOCYTES Negative Normal NEGATIVE [facility] Comment on above: Performed By: #### C BC #### [facility] [address] [place] [address] Dr. Benoit Diggs Nitrite Ql (U) Negative Normal NEGATIVE [facility] Comment on above: Performed By: #### C BC #### [facility] [address] [place] [address] Dr. Benoit Diggs pH (U) 6.0 [pH] Normal 5-9 [facility] Comment on above: Performed By: #### C BC #### [facility] [address] [place] [address] Dr. Benoit Diggs SPEC GRAVITY 1.010 Normal 1.005-<=1.025 [facility] Comment on above: Performed By: #### C BC #### [facility] [address] [place] [address] Dr. Benoit Diggs UA PROTEIN TRACE Normal NEGATIVE/ TRACE [facility] Comment on above: Performed By: #### C BC #### [facility] [address] [place] [address] Dr. Benoit Diggs UR MICRO IND NOT INDICATED Normal [facility] Comment on above: Performed By: #### C BC #### [facility] [address] [place] [address] Dr. Benoit Diggs Urobilinogen Qn (U) 4 {Nadege'U}/dL Abnormal 0.2 - 1.0 [facility] Comment on above: Performed By: #### C BC #### [facility] [address] [place] [address] Dr. Benoit Diggs CULTURE URINEon 11-29-2022 CULTURE URINE Culture Observations : MODERATE GROWTH OF MIXED GENITAL RIZWAN. NO POTENTIAL PATHOGENS SEEN. Normal [facility] Comment on above: Performed By: #### U RCX #### [facility] [address] [place] [address] Dr. Benoit Diggs UA (CLEAN/CATCH) B2B SALES PROFESSIONAL/MICRO I F IND.on 11-29-2022 Bilirubin Ql (U) SMALL Abnormal NEGATIVE [facility] Comment on above: Performed By: #### C BC #### [facility] [address] [place] [address] Dr. Benoit Diggs Clarity (U) CLEAR Normal CLEAR [facility] Comment on above: Performed By: #### C BC #### [facility] [address] [place] [address] Dr. Benoit Diggs Color (U) DK. ORANGE Abnormal YELLOW [facility] Comment on above: Performed By: #### C BC #### [facility] [address] [place] [address] Dr. Benoit Diggs Glucose Ql (U) Negative Normal NEGATIVE [facility] Comment on above: Performed By: #### C BC #### [facility] [address] [place] [address] Dr. Benoit Diggs Hemoglobin Ql (U) Negative Normal NEGATIVE [facility] Comment on above: Performed By: #### C BC #### [facility] [address] [place] [address] Dr. Benoit Diggs Ketones Ql (U) TRACE Abnormal NEGATIVE [facility] Comment on above: Performed By: #### C BC #### [facility] [address] [place] [address] Dr. Benoit Diggs LEUKOCYTES SMALL Abnormal NEGATIVE [facility] Comment on above: Performed By: #### C BC #### [facility] [address] [place] [address] Dr. Benoit Diggs Nitrite Ql (U) Negative Normal NEGATIVE [facility] Comment on above: Performed By: #### C BC #### [facility] [address] [place] [address] Dr. Benoit Diggs pH (U) 5.5 [pH] Normal 5-9 [facility] Comment on above: Performed By: #### C BC #### [facility] [address] [place] [address] Dr. Benoit Diggs SPEC GRAVITY >=1.030 Abnormal 1.005-<=1.025 [facility] Comment on above: Performed By: #### C BC #### [facility] [address] [place] [address] Dr. Benoit Diggs UA PROTEIN 100 mg/dl Abnormal NEGATIVE/ TRACE [facility] Comment on above: Performed By: #### C BC #### [facility] [address] [place] [address] Dr. Benoit Diggs UR MICRO IND INDICATED Normal [facility] Comment on above: Performed By: #### C BC #### [facility] [address] [place] [address] Dr. Benoit Diggs Urobilinogen Qn (U) 8 {Nadege'U}/dL Abnormal 0.2 - 1.0 [facility] Comment on above: Performed By: #### C BC #### [facility] [address] [place] [address] Dr. Benoit Diggs URINE MICROSCOPIC ONLYon BACTERIA MODERATE Abnormal NONE SEEN [facility] Comment on above: Performed By: #### C BC #### [facility] [address] [place] [address] Dr. Benoit Diggs Bacteria identified Cx Nom (U) INDICATED Normal [facility] Comment on above: Performed By: #### C BC #### [facility] [address] [place] [address] Dr. Benoit Diggs CAST NONE SEEN Normal NONE SEEN [facility] Comment on above: Performed By: #### C BC #### [facility] [address] [place] [address] Dr. Benoit Digsg Crystals LM Nom (Urine sed) NONE SEEN Normal NONE SEEN [facility] Comment on above: Performed By: #### C BC #### [facility] [address] [place] [address] Dr. Benoit Diggs Epithelial cells LM Ql (Urine sed) MANY Abnormal NONE SEEN /RARE [facility] Comment on above: Performed By: #### C BC #### [facility] [address] [place] [address] Dr. Beniot Diggs MUCOUS SMALL Abnormal NONE SEEN [facility] Comment on above: Performed By: #### C BC #### [facility] [address] [place] [address] Dr. Benoit Diggs RBC 5-10 Abnormal 0-[address] [facility] Comment on above: Performed By: #### C BC #### [facility] [address] [place] [address] Dr. Benoit Diggs WBC 20-50 Abnormal NONE SEEN [facility] Comment on above: Performed By: #### C BC #### [facility] [address] [place] [address] Dr. Benoit Diggs GROUP B STREP CULTUREon 10-22 S. agalactiae Ag Ql (Unsp spec) Culture Observations: NEGATIVE FOR GROUP B STREPTOCOCCUS. Normal [facility] Comment on above: Performed By: #### G BSCX #### [facility] [address] [place] [address] Dr. Benoit Diggs CBC AUTO DIFFon 09-22-2022 BASO # 0.0 103/ul Normal 0.0-0.1 [facility] Comment on above: Performed By: #### C BC #### [facility] [address] [address] [address] Benoit Diggs Basophils/100 WBC (Bld) 0.3 % Normal 0.2-2.0 [facility] Comment on above: Performed By: #### C BC #### [facility] [address] [address] [address] Benoit Diggs EO # 0.1 103/ul Normal 0.0-0.7 [facility] Comment on above: Performed By: #### C BC #### [facility] [address] [place] [address] Dr. Benoit Diggs Eosinophils/100 WBC (Bld) 2.0 % Normal 0.9-7.0 [facility] Comment on above: Performed By: #### C BC #### [facility] [address] [place] [address] Dr. Benoit Diggs Erythrocyte distribution width (RBC) [Ratio] 12.7 % Normal 11.0-15.0 [facility] Comment on above: Performed By: #### C BC #### [facility] [address] [place] [address] Dr. Benoit Diggs Hematocrit (Bld) [Volume fraction] 30.6 % Critically low 36.0-48.0 [facility] Comment on above: Performed By: #### C BC #### [facility] [address] [place] [address] Dr. Benoit Diggs Hemoglobin (Bld) [Mass/Vol] 10.1 g/dL Critically low 12.0-16.0 [facility] Comment on above: Performed By: #### C BC #### [facility] [address] [place] [address] Dr. Benoit Diggs IG # 0.03 10e3/ul Normal 0.00-0.03 [facility] Comment on above: Performed By: #### C BC #### [facility] [address] [place] [address] Dr. Benoit Diggs IG % 0.5 % Normal 0.0-0.5 [facility] Comment on above: Performed By: #### C BC #### [facility] [address] [place] [address] Dr. Benoit Diggs LYMPH # 0.6 103/ul Critically low 1.2-3.8 [facility] Comment on above: Performed By: #### C BC #### [facility] [address] [place] [address] Dr. Benoit Diggs Lymphocytes/100 WBC (Bld) 10.7 % Critically low 20.5-60.0 [facility] Comment on above: Performed By: #### C BC #### [facility] [address] [place] [address] Dr. Benoit Diggs MANUAL DIFF REQ NO Normal [facility] Comment on above: Performed By: #### C BC #### [facility] [address] [place] [address] Dr. Benoit Diggs MCH (RBC) [Entitic mass] 28.9 pg Normal 26.7-34.0 [facility] Comment on above: Performed By: #### C BC #### [facility] [address] [place] [address] Dr. Benoit Diggs MCHC (RBC) [Mass/Vol] 33.0 g/dL Normal 29.9-35.2 [facility] Comment on above: Performed By: #### C BC #### [facility] [address] [place] [address] Dr. Benoit Diggs MCV (RBC) [Entitic vol] 87.4 fL Normal 81.0-99.0 [facility] Comment on above: Performed By: #### C BC #### [facility] [address] [place] [address] Dr. Benoit Diggs MONO # 0.6 103/ul Normal 0.3-0.8 [facility] Comment on above: Performed By: #### C BC #### [facility] [address] [place] [address] Dr. Benoit Diggs Monocytes/100 WBC (Bld) 10.9 % Normal 1.7-12.0 [facility] Comment on above: Performed By: #### C BC #### [facility] [address] [place] [address] Dr. Benoit Diggs NEUT # 4.4 103/ul Normal 1.4-6.5 [facility] Comment on above: Performed By: #### C BC #### [facility] [address] [place] [address] Dr. Benoit Diggs Neutrophils/100 WBC (Bld) 75.6 % Critically high 43.0-75.0 [facility] Comment on above: Performed By: #### C BC #### [facility] [address] [place] [address] Dr. Benoit Diggs Platelet mean volume (Bld) [Entitic vol] 10.9 fL Normal 9.5-13.5 [facility] Comment on above: Performed By: #### C BC #### [facility] [address] [place] [address] Dr. eBnoit Diggs PLT 191 103/ul Normal 150-450 [facility] Comment on above: Performed By: #### C BC #### [facility] [address] [place] [address] Dr. Benoit Diggs RBC 3.50 106/ul Critically low 4.20-5.40 [facility] Comment on above: Performed By: #### C BC #### [facility] [address] [place] [address] Dr. Benoit Diggs WBC 5.9 103/ul Normal 4.0-11.0 [facility] Comment on above: Performed By: #### C BC #### [facility] [address] [place] [address] Dr. Benoit Diggs CULTURE URINEon 09-22-2022 CULTURE URINE Culture Observations : HEAVY GROWTH OF MIXED GENITAL RIZWAN. NO POTENTIAL PATHOGENS SEEN. Normal [facility] Comment on above: Performed By: #### U RCX #### [facility] [address] [place] [address] Dr. Benoit Diggs ER URINE PROFILEon 12-04-202 2 Bilirubin Ql (U) Negative Normal NEGATIVE [facility] Comment on above: Performed By: #### H IV12 #### [facility] [address] [address] [address] Benoit Diggs Clarity (U) CLEAR Normal CLEAR [facility] Comment on above: Performed By: #### H IV12 #### [facility] [address] [place] [address] Dr. Benoit Diggs Color (U) YELLOW Normal YELLOW [facility] Comment on above: Performed By: #### H IV12 #### [facility] [address] [place] [address] Dr. Benoit VELA A micrscopic examination will be performed if indicated. Normal [facility] Comment on above: Performed By: #### H IV12 #### [facility] [address] [place] [address] Dr. Benoit Diggs Glucose Ql (U) Negative Normal NEGATIVE [facility] Comment on above: Performed By: #### H IV12 #### [facility] [address] [place] [address] Dr. Benoit Diggs Hemoglobin Ql (U) Negative Normal NEGATIVE [facility] Comment on above: Performed By: #### H IV12 #### [facility] [address] [place] [address] Dr. Benoit Diggs Ketones Ql (U) 15 mg/dl Abnormal NEGATIVE [facility] Comment on above: Performed By: #### H IV12 #### [facility] [address] [place] [address] Dr. Benoit Diggs LEUKOCYTES Negative Normal NEGATIVE [facility] Comment on above: Performed By: #### H IV12 #### [facility] [address] [place] [address] Dr. Benoit Diggs Nitrite Ql (U) Negative Normal NEGATIVE [facility] Comment on above: Performed By: #### H IV12 #### [facility] [address] [place] [address] Dr. Benoit Diggs pH (U) 6.5 [pH] Normal 5-9 [facility] Comment on above: Performed By: #### H IV12 #### [facility] [address] [place] [address] Dr. Benoit Diggs SPEC GRAVITY 1.025 Normal 1.005-<=1.025 [facility] Comment on above: Performed By: #### H IV12 #### [facility] [address] [place] [address] Dr. Benoit Diggs UA PROTEIN TRACE Normal NEGATIVE/ TRACE [facility] Comment on above: Performed By: #### H IV12 #### [facility] [address] [place] [address] Dr. Benoit Diggs UR MICRO IND INDICATED Normal [facility] Comment on above: Performed By: #### H IV12 #### [facility] [address] [place] [address] Dr. Benoit Diggs Urobilinogen Qn (U) 1.0 {Nadege'U}/dL Normal 0.2 - 1. 0 [facility] Comment on above: Performed By: #### H IV12 #### [facility] [address] [place] [address] Dr. Benoit Diggs INFLUENZA A AND B AGon 12-0 INFLUANEGH SEE BELOW Normal [facility] Comment on above: Result Comment: Nega tive for Flu A protein angiten. Infection due to Flu A cannot be ruled out. Flu A angiten in the sample may be below the detection limit of the test. Performed By: #### H IV12 #### [facility] [address] [place] [address] Dr. Benoit Diggs INFLUBNEGH SEE BELOW Normal [facility] Comment on above: Result Comment: Nega tive for Flu B protein antigen. Infection due to Flu B cannot be ruled out. Flu B antigen in the sample may be below the detection limit of the test. Performed By: #### H IV12 #### [facility] [address] [place] [address] Dr. Benoit Diggs INFLUENZA A AG Negative Normal NEGATIVE SEE COMMENT [facility] Comment on above: Performed By: #### H IV12 #### [facility] [address] [place] [address] Dr. Benoit Diggs INFLUENZA B AG Negative Normal NEGATIVE SEE COMMENT [facility] Comment on above: Performed By: #### H IV12 #### [facility] [address] [address] [address] Benoit Diggs INTERNAL CONTROLS Within Normal Limits Normal Wi thin Normal Limits [facility] Comment on above: Performed By: #### H IV12 #### [facility] [address] [address] [address] Benoit Diggs PROF CHEM 8 (BAS METB)on Anion gap [Moles/Vol] 11.6 mmol/L Normal [facility] Comment on above: Performed By: #### C BC #### [facility] [address] [address] [address] Benoit Diggs Calcium [Mass/Vol] 8.2 mg/dL Critically low 8.5-10.[address] [facility] Comment on above: Performed By: #### C BC #### [facility] [address] [address] [address] Benoit Diggs Chloride [Moles/Vol] 100 mmol/L Normal 98-[address] [facility] Comment on above: Performed By: #### C BC #### [facility] [address] [address] [address] Benoit Diggs CO2 [Moles/Vol] 23.9 mmol/L Normal 21.0-32.0 [facility] Comment on above: Performed By: #### C BC #### [facility] [address] [address] [address] Benoit Diggs Creatinine [Mass/Vol] 0.48 mg/dL Critically low 0.55-1.02 [facility] Comment on above: Performed By: #### C BC #### [facility] [address] [address] [address] Benoit Diggs EGFR-AF LITHUANIAN >60 Normal >=60 [facility] Comment on above: Performed By: #### C BC #### [facility] [address] [address] [address] Benoit Diggs EGFR-NON AF LITHUANIAN >60 Normal >=60 [facility] Comment on above: Performed By: #### C BC #### [facility] [address] [address] [address] Benoit Diggs Glucose [Mass/Vol] 94 mg/dL Normal 74-106 [facility] Comment on above: Performed By: #### C BC #### [facility] [address] [address] [address] Benoit Diggs Potassium [Moles/Vol] 3.5 mmol/L Normal 3.5-5.1 [facility] Comment on above: Performed By: #### C BC #### [facility] [address] [address] [address] Benoit Diggs Sodium [Moles/Vol] 132 mmol/L Critically low 136-[address] [facility] Comment on above: Performed By: #### C BC #### [facility] [address] [address] [address] Benoit Diggs Urea nitrogen [Mass/Vol] 6.0 mg/dL Critically low 7.0-18.0 [facility] Comment on above: Performed By: #### C BC #### [facility] [address] [address] [address] Benoit iDggs Urea nitrogen/Creatinine [Mass ratio] 12.5 mg/mg Normal [facility] Comment on above: Performed By: #### C BC #### [facility] [address] [address] [address] Benoit Diggs RESPIRATORY PANEL PLUSon Adenovirus Not detected Normal NOT DETECTED [facility] Comment on above: Performed By: #### R SPLUS ####[facility] [address] [id number] Diggs B. Parapertusis Not detected Normal NOT DETECTED [facility] Comment on above: Performed By: #### R SPLUS ####[facility] [address] [id number] Diggs B. Pertussis Not detected Normal NOT DETECTED [facility] Comment on above: Performed By: #### R SPLUS ####[facility] [address] [address]Dr. Benoit Diggs Chlamydia Pneumoniae Not detected Normal NOT DETECTED [facility] Comment on above: Performed By: #### R SPLUS ####[facility] [address] [place], [place] [address]Dr. Benoit Diggs Coronavirus 229E Not detected Normal NOT DETECTED [facility] Comment on above: Performed By: #### R SPLUS ####[facility] [address] [place], [place] [address]Dr. Benoit [facility] Coronavirus HKU1 Not detected Normal NOT DETECTED [facility] Comment on above: Performed By: #### R SPLUS ####[facility] [address] [place], [place] [address]Dr. Benoit Diggs Coronavirus NL63 Not detected Normal NOT DETECTED [facility] Comment on above: Performed By: #### R SPLUS ####[facility] [address] [place], [place] [address]Dr. Benoit [facility] Coronavirus OC43 Not detected Normal NOT DETECTED [facility] Comment on above: Performed By: #### R SPLUS ####[facility] [address] [place], [place] [address]Dr. Benoit Diggs Influenza A H1 2009 Detected Abnormal NOT DETECTED [facility] Comment on above: Performed By: #### R SPLUS ####[facility] [address] [place], [place] [address]Dr. Benoit Diggs Influenza A H3 Not detected Normal NOT DETECTED [facility] Comment on above: Performed By: #### R SPLUS ####[facility] [address] [place], [place] [address]Dr. Benoit Diggs Influenza B Not detected Normal NOT DETECTED [facility] Comment on above: Performed By: #### R SPLUS ####[facility] [address] [place], [place] [address]Dr. Yiaurora Diggs Metapneumovirus Not detected Normal NOT DETECTED [facility] Comment on above: Performed By: #### R SPLUS ####[facility] [address] [place], [place] [address]Dr. Benoit Diggs Mycoplas. Pneumoniae Not detected Normal NOT DETECTED [facility] Comment on above: Performed By: #### R SPLUS ####[facility] [address] [place], [place] [address]Dr. Benoit Diggs Parainfluenza 1 Not detected Normal NOT DETECTED [facility] Comment on above: Performed By: #### R SPLUS ####[facility] [address] [place], [place] [address]Dr. Benoit Diggs Parainfluenza 2 Not detected Normal NOT DETECTED [facility] Comment on above: Performed By: #### R SPLUS ####[facility] [address] [place], [place] [address]Dr. Benoit Diggs Parainfluenza 3 Not detected Normal NOT DETECTED [facility] Comment on above: Performed By: #### R SPLUS ####[facility] [address] [place], [place] [address]Dr. Karyaurora Diggs Parainfluenza 4 Not detected Normal NOT DETECTED [facility] Comment on above: Performed By: #### R SPLUS ####[facility] [address] [place], [place] [address]Dr. Benoit Diggs Rhino/Enterovirus Not detected Normal NOT DETECTED [facility] Comment on above: Performed By: #### R SPLUS ####[facility] [address] [place], [place] [address]Dr. Benoit Diggs RP2 Header 1 RESPIRATORY PANEL: VIRUSES Normal [facility] Comment on above: Performed By: #### R SPLUS ####[facility] [address] [place], [place] [address]Dr. Benoit Diggs RP2 Header 2 RESPIRATORY PANEL: BACTERIA Normal [facility] Comment on above: Performed By: #### R SPLUS ####[facility] [address] [place], [place] [address]Dr. Benoit Diggs RSV Not detected Normal NOT DETECTED [facility] Comment on above: Performed By: #### R SPLUS ####[facility] [address] [place], [place] [address]Dr. Benoit Diggs SARS-CoV-2 (COVID-19) RNA RANDOLPH+probe Ql (Unsp spec) Not detected Normal NOT DETECTED [facility] Comment on above: Performed By: #### R SPLUS ####[facility] [address] [address]Dr. Benoit Diggs Result Comment: When diagnostic testing [...] for this test is supported by the [employer] of Health and Human Service's declaration that [...] used). Performed By: #### H IV12 #### [facility] [address] [place] [address] Dr. Benoit Diggs URINE MICROSCOPIC ONLYon BACTERIA TRACE Abnormal NONE SEEN [facility] Comment on above: Performed By: #### H IV12 #### [facility] [address] [place] [address] Dr. Benoit Diggs Bacteria identified Cx Nom (U) INDICATED Normal [facility] Comment on above: Performed By: #### H IV12 #### [facility] [address] [place] [address] Dr. Benoit Diggs CAST NONE SEEN Normal NONE SEEN [facility] Comment on above: Performed By: #### H IV12 #### [facility] [address] [place] [address] Dr. Benoit Diggs Crystals LM Nom (Urine sed) NONE SEEN Normal NONE SEEN [facility] Comment on above: Performed By: #### H IV12 #### [facility] [address] [place] [address] Dr. Benoit Diggs Epithelial cells LM Ql (Urine sed) MODERATE Abnormal NONE SEEN /RARE [facility] Comment on above: Performed By: #### H IV12 #### [facility] [address] [place] [address] Dr. Benoit Diggs MUCOUS NONE SEEN Normal NONE SEEN [facility] Comment on above: Performed By: #### H IV12 #### [facility] [address] [place] [address] Dr. Benoit Diggs RBC 0-2 Normal 0-2 [facility] Comment on above: Performed By: #### H IV12 #### [facility] [address] [place] [address] Dr. Benoit Diggs WBC 5-10 Abnormal NONE SEEN [facility] Comment on above: Performed By: #### H IV12 #### [facility] [address] [place] [address] Dr. Benoit Diggs CBC AUTO DIFFon 09-09-2022 BASO # 0.1 103/ul Normal 0.0-0.1 [facility] Comment on above: Performed By: #### C BC #### [facility] [address] [place] [address] Dr. Benoit Diggs Basophils/100 WBC (Bld) 0.5 % Normal 0.2-2.0 [facility] Comment on above: Performed By: #### C BC #### [facility] [address] [place] [address] Dr. Benoit Diggs EO # 0.4 103/ul Normal 0.0-0.7 [facility] Comment on above: Performed By: #### C BC #### [facility] [address] [place] [address] Dr. Benoit Diggs Eosinophils/100 WBC (Bld) 4.1 % Normal 0.9-7.0 [facility] [facility] Comment on above: Performed By: #### C BC #### [facility] [address] [place] [address] Dr. Beonit Diggs Erythrocyte distribution width (RBC) [Ratio] 12.8 % Normal 11.0-15.0 [facility] Comment on above: Performed By: #### C BC #### [facility] [address] [place] [address] Dr. Benoit Diggs Hematocrit (Bld) [Volume fraction] 31.4 % Critically low 36.0-48.0 [facility] Comment on above: Performed By: #### C BC #### [facility] [address] [place] [address] Dr. Benoit Diggs Hemoglobin (Bld) [Mass/Vol] 10.5 g/dL Critically low 12.0-16.0 [facility] Comment on above: Performed By: #### C BC #### [facility] [address] [place] [address] Dr. Benoit Diggs IG # 0.05 10e3/ul Critically high 0.00-0.03 [facility] Comment on above: Performed By: #### C BC #### [facility] [address] [place] [address] Dr. Benoit Diggs IG % 0.5 % Normal 0.0-0.5 [facility] Comment on above: Performed By: #### C BC #### [facility] [address] [place] [address] Dr. Benoit Diggs LYMPH # 2.2 103/ul Normal 1.2-3.8 [facility] Comment on above: Performed By: #### C BC #### [facility] [address] [place] [address] Dr. Benoit Diggs Lymphocytes/100 WBC (Bld) 21.9 % Normal 20.5-60.0 [facility] Comment on above: Performed By: #### C BC #### [facility] [address] [place] [address] Dr. Benoit Diggs MANUAL DIFF REQ NO Normal [facility] Comment on above: Performed By: #### C BC #### [facility] [address] [place] [address] Dr. Benoit Diggs MCH (RBC) [Entitic mass] 29.7 pg Normal 26.7-34.0 [facility] Comment on above: Performed By: #### C BC #### [facility] [address] [address] [address] Benoit Diggs MCHC (RBC) [Mass/Vol] 33.4 g/dL Normal 29.9-35.2 [facility] Comment on above: Performed By: #### C BC #### [facility] [address] [address] [address] Benoit Diggs MCV (RBC) [Entitic vol] 89.0 fL Normal 81.0-99.0 [facility] Comment on above: Performed By: #### C BC #### [facility] [address] [address] [address] Benoit Diggs MONO # 0.6 103/ul Normal 0.3-0.8 [facility] Comment on above: Performed By: #### C BC #### [facility] [address] [address] [address] Benoit Diggs Monocytes/100 WBC (Bld) 5.7 % Normal 1.7-12.0 [facility] Comment on above: Performed By: #### C BC #### [facility] [address] [address] [address] Benoit Diggs NEUT # 6.8 103/ul Critically high 1.4-6.5 [facility] Comment on above: Performed By: #### C BC #### [facility] [address] [address] [address] Benoit Diggs Neutrophils/100 WBC (Bld) 67.3 % Normal 43.0-75.0 [facility] Comment on above: Performed By: #### C BC #### [facility] [address] [address] [address] Benoit Diggs Platelet mean volume (Bld) [Entitic vol] 11.0 fL Normal 9.5-13.5 [facility] Comment on above: Performed By: #### C BC #### [facility] [address] [address] [address] Benoit Diggs PLT 215 103/ul Normal 150-[address] [facility] Comment on above: Performed By: #### C BC #### [facility] [address] [address] [address] Benoit Diggs RBC 3.53 106/ul Critically low 4.20-5.40 [facility] Comment on above: Performed By: #### C BC #### [facility] [address] [address] [address] Benoit Diggs WBC 10.2 103/ul Normal 4.0-11.0 [facility] Comment on above: Performed By: #### C BC #### [facility] [address] [address] [address] Benoit Diggs GLUCOSE - 1HRon 09-09-2022 Glucose [Mass/Vol] 116 mg/dL Critically high 74-106 [facility] Comment on above: Performed By: #### G LU1HR ####[facility] [id number] [address]Dr. Benoit Diggs PAP ACOG PANEL 2: 21 to 29on 08-13-2022 . . Normal [facility] Comment on above: Performed By: #### C BC #### [facility] [address] [address] [address] Benoit Diggs Age Gdln ACOG Testing [facility] Comment on above: Performed By: #### C BC #### [facility] [address] [address] [address] Benoit Diggs DIAGNOSIS: Comment Normal [facility] Comment on above: Result Comment: NEGA TIVE FOR INTRAEPITHELIAL LESION OR MALIGNANCY. Performed By: #### C BC #### [facility] [address] [address] [address] Benoit Diggs Methodology: Comment [facility] Comment on above: Result Comment: This liquid based ThinPrep(R) pap test was screened with the use of an image guided system. Performed By: #### C BC #### [facility] [address] [address] [address] Benoit Diggs Note: Comment [facility] Comment on above: Result Comment: The Pap smear is a screening test designed to aid in the detection of premalignant and malignant conditions of the uterine cervix. It is not a diagnostic procedure and should not be used as the sole means of detecting cervical cancer. Both false-positive and false-negative reports do occur. . Performed By: #### C BC #### [facility] [address] [place] [address] Dr. Benoit Diggs Performed by: Comment Normal [facility] Comment on above: Result Comment: Cynthia Smith, Senior Software Developer (ASCP) Performed By: #### C BC #### [facility] [address] [place] [address] Dr. Benoit Diggs Reflex Criteria: Comment Normal [facility] Comment on above: Result Comment: The HPV DNA reflex criteria were not met with this specimen result therefore, no HPV testing was performed. . Performed By: #### C BC #### [facility] [address] [place] [address] Dr. Benoit Diggs Specimen adequacy: Comment Normal [facility] Comment on above: Result Comment: Sati sfactory for evaluation. No endocervical component is identified. Performed By: #### C BC #### [facility] [address] [place] [address] Dr. Benoit Diggs CHLAMYDIA/GONOCOCCUS RANDOLPH (SW AB/URINE/PAPon 08-08-2022 Chlamydia trachomatis, RANDOLPH Negative Normal Negative [facility] Comment on above: Performed By: #### H IV12 #### [facility] [address] [place] [address] Dr. Benoit Diggs Neisseria gonorrhoeae, RANDOLPH Negative Normal Negative [facility] Comment on above: Performed By: #### H IV12 #### [facility] [address] [place] [address] Dr. Benoit Diggs US PREG INCOMPLETE ANATOMYon [...] MYLENE SULLIVAN Date: 2022-08-07 20:[address] [facility] US PREG ANATOMY SINGLEon US PREG [...] AISHWARYA MAGALLON Date: 2022-07-25 17:[address] [facility] AFP MATERNAL FOR SPINA BIFID Aon 07-17-2022 AFP MoM 0.55 Normal [facility] Comment on above: Performed By: #### H IV12 #### [facility] [address] [address] [address] Benoit Diggs AFP Value 20.0 ng/mL Normal [facility] Comment on above: Performed By: #### H IV12 #### [facility] [address] [id number] Benoit Diggs AFP, Serum for Spina Bifida Report Normal [facility] Comment on above: Performed By: #### H IV12 #### [facility] [address] [address] [address] Benoit Diggs Comment Comment Normal [facility] Comment on above: Result Comment: Ector Palafox, Ph.D., [facility] Director . References: Available Upon Request. . Multiples Of Median Cutoffs For AFP Elevations Caro 2.5 Black 2.8 IDD 2.0 Twins 4.5 Abbreviation Definitions IDD - Insulin Dep Diabetes OSBR - Open Spina Bifida Risk . For further inquiries contact [employer] at [phone]. . This test was developed and its performance characteristics determined by [email or web address]. It has not been cleared or approved by the Food and Drug Administration. Performed By: #### H IV12 #### [facility] [address] [place] [address] Dr. Benoit Davey Age Collection Date 18.1 weeks [facility] Comment on above: Performed By: #### H IV12 #### [facility] [address] [place], [place] [id number] Dr. Benoit Diggs Gestat, Age Based on Ultrasound Normal [facility] Comment on above: Result Comment: 13:1 on 06/06/2022 Recalculations are not recommended when gestational dating by LMP and ultrasound are within 10 days. Performed By: #### H IV12 #### [facility] [address] [address] [address] Benoit Diggs Insulin Dep Diabetes No Normal [facility] Comment on above: Performed By: #### H IV12 #### [facility] [address] [place] [address] Dr. Benoit Diggs Interpretation Comment Normal [facility] Comment on above: Result Comment: Inte [...] Customer Services to discuss available options. The [employer] [place] [employer] recommends amniocentesis be offered to women age 35 and older. Performed By: #### H IV12 #### [facility] [address] [place] [address] Dr. Benoit Diggs [age] Normal [facility] Comment on above: Performed By: #### H IV12 #### [facility] [address] [place] [address] Dr. Benoit Diggs Multiple Gestation No Normal [facility] Comment on above: Performed By: #### H IV12 #### [facility] [address] [place] [address] Dr. Benoit Diggs OS[place] [address] Normal [facility] Comment on above: Performed By: #### H IV12 #### [facility] [address] [place] [address] Dr. Benoit Diggs PDF . Normal [facility] Comment on above: Performed By: #### H IV12 #### [facility] [address] [place] [address] Dr. Benoit Diggs Race Normal [facility] Comment on above: Performed By: #### H IV12 #### [facility] [address] [place] [address] Dr. Benoit Diggs Test Results: Negative Normal [facility] Comment on above: Performed By: #### H IV12 #### [facility] [address] [place] [address] Dr. Benoit Diggs HEP B SURFACE ANTIGEN SCREEN on 06-07-2022 HBsAg Screen Negative Normal Negative [facility] Comment on above: Performed By: #### H IV12 #### [facility] [address] [address] [address] Benoit Diggs HEPATITIS C VIRUS AB W/ REFL EX QUANTon 06-07-2022 HCV AB <0.1 Normal 0.0-0.[address] [facility] Comment on above: Performed By: #### H IV12 #### [facility] [address] [place] [address] Dr. Benoit Diggs Interpretation: Comment Normal [facility] Comment on above: Result Comment: Nega tive Not infected with HCV, unless recent infection is suspected or other evidence exists to indicate HCV infection. Performed By: #### H IV12 #### [facility] [address] [place] [address] Dr. Benoit Diggs HIV 1 AND 2 WITH REFLEXon HIV Screen 4th Generation wRfx Non-Reactive Normal Non Reactive [facility] Comment on above: Result Comment: HIV Negative HIV-1/HIV-2 antibodies and HIV-1 p24 antigen were NOT detected. There is no laboratory evidence of HIV infection. Performed By: #### H IV12 #### [facility] [address] [place] [address] Dr. Benoit Diggs RPR QUANTon 06-07-2022 Rapid Plasma Reagin, Quant Non-Reactive Normal NonRea<1:1 [facility] Comment on above: Result Comment: Plea se Note: This test does not meet current guidelines for screening and diagnosis of syphilis. This test is intended for following treatment response in patients being treated for syphilis infection. To screen for syphilis infection, a reflex cascade that includes both RPR and a treponema-specific assay should be utilized, such as Treponema pallidum (Syphilis) Screening [facility] (220308) or Rapid Plasma Reagin (RPR) Test With Reflex to Quantitative RPR and Confirmatory Treponema pallidum Antibodies (729304). Performed By: #### H IV12 #### [facility] [address] [place] [address] Dr. Benoit Diggs RUBELLA AB IGGon 06-07-2022 Rubella Antibodies, IgG 3.22 index Normal Immune >0.99 [facility] Comment on above: Result Comment: Non- immune <0.90 Equivocal 0.90 - 0.99 Immune >0.99 Performed By: #### C BC #### [facility] [address] [address] [address] Benoit Diggs US PREG <14 WKSon [...] MYLENE SULLIVAN Date: 2022-06-06 22:[address] [facility] CBC AUTO DIFFon 06-06-2022 BASO # 0.1 103/ul Normal 0.0-0.1 [facility] Comment on above: Performed By: #### C BC #### [facility] [address] [address] [address] Benoit Diggs Basophils/100 WBC (Bld) 0.6 % Normal 0.2-2.[address] [facility] Comment on above: Performed By: #### C BC #### [facility] [address] [address] [address] Benoit Diggs EO # 0.3 103/ul Normal 0.0-0.[address] [facility] Comment on above: Performed By: #### C BC #### [facility] [address] [address] [address] Benoit Diggs Eosinophils/100 WBC (Bld) 4.1 % Normal 0.9-7.[address] [facility] Comment on above: Performed By: #### C BC #### [facility] [address] [place] [address] Dr. Benoit Diggs Erythrocyte distribution width (RBC) [Ratio] 13.9 % Normal 11.0-15.0 [facility] Comment on above: Performed By: #### C BC #### [facility] [address] [place] [address] Dr. Benoit Diggs Hematocrit (Bld) [Volume fraction] 36.0 % Normal 36.0-48.0 [facility] Comment on above: Performed By: #### C BC #### [facility] [address] [place] [address] Dr. Benoit Diggs Hemoglobin (Bld) [Mass/Vol] 12.0 g/dL Normal 12.0-16.0 [facility] Comment on above: Performed By: #### C BC #### [facility] [address] [place] [address] Dr. Benoit Diggs IG # 0.03 10e3/ul Normal 0.00-0.03 [facility] Comment on above: Performed By: #### C BC #### [facility] [address] [place] [address] Dr. Benoit Diggs IG % 0.4 % Normal 0.0-0.5 [facility] Comment on above: Performed By: #### C BC #### [facility] [address] [place] [address] Dr. Benoit Diggs LYMPH # 2.7 103/ul Normal 1.2-3.8 [facility] Comment on above: Performed By: #### C BC #### [facility] [address] [place] [address] Dr. Benoit Diggs Lymphocytes/100 WBC (Bld) 33.2 % Normal 20.5-60.0 [facility] Comment on above: Performed By: #### C BC #### [facility] [address] [place] [address] Dr. Benoit Diggs MANUAL DIFF REQ NO Normal [facility] Comment on above: Performed By: #### C BC #### [facility] [address] [place] [address] Dr. Benoit Diggs MCH (RBC) [Entitic mass] 29.4 pg Normal 26.7-34.0 [facility] Comment on above: Performed By: #### C BC #### [facility] [address] [place] [address] Dr. Benoit Diggs MCHC (RBC) [Mass/Vol] 33.3 g/dL Normal 29.9-35.[address] [facility] Comment on above: Performed By: #### C BC #### [facility] [address] [place] [address] Dr. Benoit Diggs MCV (RBC) [Entitic vol] 88.2 fL Normal 81.0-99.[address] [facility] Comment on above: Performed By: #### C BC #### [facility] [address] [place] [address] Dr. Benoit Diggs MONO # 0.5 103/ul Normal 0.3-0.[address] [facility] Comment on above: Performed By: #### C BC #### [facility] [address] [place] [address] Dr. Benoit Diggs Monocytes/100 WBC (Bld) 6.6 % Normal 1.7-12.0 [facility] Comment on above: Performed By: #### C BC #### [facility] [address] [place] [address] Dr. Benoit Diggs NEUT # 4.4 103/ul Normal 1.4-6.5 [facility] Comment on above: Performed By: #### C BC #### [facility] [address] [place] [address] Dr. Benoit Diggs Neutrophils/100 WBC (Bld) 55.1 % Normal 43.0-75.[address] [facility] Comment on above: Performed By: #### C BC #### [facility] [address] [place] [address] Dr. Benoit Diggs Platelet mean volume (Bld) [Entitic vol] 11.0 fL Normal 9.5-13.[address] [facility] Comment on above: Performed By: #### C BC #### [facility] [address] [place] [address] Dr. Benoit Diggs PLT 225 103/ul Normal 150-[address] [facility] Comment on above: Performed By: #### C BC #### [facility] [address] [place] [address] Dr. Benoit Diggs RBC 4.08 106/ul Critically low 4.20-5.40 [facility] Comment on above: Performed By: #### C BC #### [facility] [address] [address] [address] Benoit Diggs WBC 8.1 103/ul Normal 4.0-11.0 [facility] Comment on above: Performed By: #### C BC #### [facility] [address] [address] [address] Benoit Diggs CULTURE URINEon 06-06-2022 CULTURE URINE Culture Observations : MODERATE GROWTH OF MIXED GENITAL RIZWAN. NO POTENTIAL PATHOGENS SEEN. Normal [facility] Comment on above: Performed By: #### U RCX ####[facility] [address] [address]Dr. Benoit Diggs GLYCOHEMOGLOBIN A1Con 2021 ADA RECOMMENDATION SEE BELOW Normal [facility] Comment on above: Result Comment: ADA RECOMMENDED LIMIT 4.0 - 6.0 ADA THERAPEUTIC TARGET < 7.0 ACTION SUGGESTED > 7.0 Performed By: #### C BC #### [facility] [address] [address] [address] Benoit Diggs Glucose [Mass/Vol] 105 mg/dL Normal [facility] Comment on above: Performed By: #### C BC #### [facility] [address] [address] [address] Benoit Diggs HbA1c (Bld) [Mass fraction] 5.3 % Normal 4.5-6.2 [facility] Comment on above: Performed By: #### C BC #### [facility] [address] [address] [address] Benoit Diggs DAVID BOX TEST PT SEND OUTo n 06-06-2022 SENT TO REF LAB 06/06/2022 Normal [facility] Comment on above: Performed By: #### H IV12 #### [facility] [address] [address] [address] Benoit Diggs TYPE AND SCREENon 06-06-2022 TYPE AND SCREEN Negative Normal [facility] Comment on above: Performed By: #### T NS #### [facility] [address] [address] [address] Benoit Diggs PREG QUANT HCGon 04-16-2022 HCG QUANT 26724 mIU/mL Normal [facility] Comment on above: Performed By: #### C BC #### [facility] [address] [address] [address] Benoit Diggs HCG RANGE SEE BELOW Normal [facility] Comment on above: Result Comment: 5-50 0-1 WEEK 40-300 1-2 WEEKS 100-1,000 2-3 WEEKS 500-6,000 3-4 WEEKS 5,000-200,000 1-2 MONTHS 10,000-100,000 2-3 MONTHS 3,000-50,000 2ND TRIMESTER 1,000-50,000 3RD TRIMESTER Performed By: #### C BC #### [facility] [address] [address] [address] Benoit Diggs Vital Signs Date Time Vital Sign Value Performing Clinician Facility 09-07-2024 14:06-0500 Diastolic blood pressure 71 mm[Hg] Manuel Noel MD Work Phone: [facility] 09-07-2024 14:06-0500 Heart rate 77 /min Manuel Noel MD Work Phone: [facility] 09-07-2024 14:06-0500 Respiratory rate 18 /min Manuel Noel MD Work Phone: [facility] 09-07-2024 14:06-0500 SaO2% (BldA) [Mass fraction] 98 % Manuel Noel MD Work Phone: [facility] 09-07-2024 14:06-0500 Systolic blood pressure 112 mm[Hg] Manuel Noel MD Work Phone: [facility] 09-07-2024 12:39-0500 Body height 154.94 cm Manuel Noel MD Work Phone: [facility] 09-07-2024 12:39-0500 Body weight 127 kg Manuel Noel MD Work Phone: [facility] 08-24-2024 [id number] Body height 154.94 cm Manuel Noel MD Work Phone: [facility] 08-24-2024 09:31-0500 Body mass index (BMI) [Ratio] 53.4 kg/m2 Manuel Noel MD Work Phone: [facility] 08-24-2024 09:31-0500 Body weight 128.16 kg Manuel Noel MD Work Phone: [facility] 07-17-2022 02:06-0400 Body [facility] [facility]: Performed By: #### HIV12 #### [facility] [address] [address] [address] Benoit Diggs Encounters Encounter Date Encounter Type Care Provider Facility Start: 09-07-2024 Non-patient / Non-visit aMnuel Noel MD Work Phone: [facility] Work Phone: Start: 09-07-2024 End: 09-07-2024 Admission to same day surgery center Manuel Noel MD Work Phone: [facility] Work Phone: Start: 09-07-2024 End: 09-07-2024 ambulatory Manuel Noel MD Work Phone: [facility] Work Phone: Start: 08-28-2024 End: 08-28-2024 Emergency department patient visit MANUEL NOEL [facility] Start: 08-24-2024 End: 08-24-2024 Patient encounter procedure Manuel Noel MD Work Phone: [facility] Work Phone: Start: 07-01-2024 End: 07-01-2024 Clinisync Result Encounter Generic External Data Provider [facility] External Department Unsolicited Start: 07-01-2024 End: 07-01-2024 Clinisync Result Encounter Generic External Data Provider [facility] External Department Unsolicited Start: 06-10-2024 Non-patient / Non-visit Manuel Noel MD Work Phone: [facility] Work Phone: Start: 06-01-2024 End: 06-01-2024 ambulatory MANUEL NOEL Not Available Start: 04-28-2024 End: 04-28-2024 ambulatory MANUEL NOEL Not Available Start: 03-02-2024 Patient encounter procedure Generic Provider [facility] Start: 03-02-2024 End: 03-02-2024 ambulatory MANUEL NOEL Not Available Start: 02-28-2024 End: 02-29-2024 Emergency department patient visit NAVI Oconnell [facility] Start: 02-28-2024 End: 02-28-2024 Emergency department patient visit MANUEL NOEL [facility] Start: 12-23-2022 Encounter for genera l adult medical examination without abnormal findings DR MANUEL NOEL [facility] Start: 12-21-2022 End: 12-22-[address] MANUEL [...] Date Procedure Procedure Detail Performing Clinician Start: 09-07-2024 Esophagogastroduodenoscopy Manuel Noel MD Work Phone: Start: 07-01-2024 [facility]PT TRICHOMONAS/WET PREP Generic Team Member al Data Provider Start: 12-03-2022 Transfusion of Nonautologous Red Blood Cells into Peripheral Vein, Percutaneous Approach DR DOCTOR PIERCE Start: 12-02-2022 Delivery of Products of Conception, External Approach DR DOCTOR PIERCE Start: 12-02-2022 Drainage of Amniotic Fluid, Therapeutic from Products of Conception, Via Natural or Artificial Opening DR DOCTOR PIERCE Plan of Treatment Date Care Activity Detail Author Start: 09-07-2024 [facility] Start: 06-20-2024 Influenza vaccination Influenza Vacc ine (#1) [facility] Patient Education Esophagitis Kn ow your Meds [facility] Work Phone: Payers Date Payer Category Payer Medicaid [facility] Y MEDICAID [place] [id number] 2021-Present [address] [place] [address] [id number] 2000 Unknown [id number] 2.16.840.1.907074.3.579.2.593 2000 Unknown [id number] 2.16.840.1.065347.3.579.2.593 2000 Unknown [id number] 2.16.840.1.734460.3.579.2.593 2000 Unknown [id number] 2.16.840.1.944694.3.579.2.593 2000 Unknown [id number] 2.16.840.1.208427.3.579.2.593 2000 Unknown [id number] 2.16.840.1.117407.3.579.2.593 2000 Unknown [id number] 2.16.840.1.844523.3.579.2.593 2000 Unknown [id number] 2.16.840.1.942959.3.579.2.593 2000 Unknown [id number] 2.16.840.1.715617.3.579.2.593 2000 Unknown [id number] 2.16.840.1.128548.3.579.2.593 2000 Unknown [id number] 2.16.840.1.719902.3.579.2.593 2000 Unknown [id number] 2.16.840.1.034470.3.579.2.593 2000 Unknown [id number] 2.16.840.1.701993.3.579.2.593 2000 Unknown [id number] 2.16.840.1.518494.3.579.2.593 2000 Unknown [id number] 2.16.840.1.348708.3.579.2.1259 2000 Unknown [id number] 2.16.840.1.536350.3.579.2.1259 2000 Unknown [id number] 2.16.840.1.721265.3.579.2.1259 2000 Unknown [id number] 2.16.840.1.037593.3.579.2.1286 2000 Unknown [id number] 2.16.840.1.238611.3.579.2.1286 2000 Unknown [id number] 2.16.840.1.068012.3.579.2.1286 1959 Self-pay 1959 Unknown [id number] Unknown [id number] 2.16.840.1.003361.3.579.2.593 Unknown [id number] 2.16.840.1.955147.3.579.2.531 Social History Date Type Detail Facility Start: 03-02-2024 End: 09-07-2024 Tobacco smoking status NHIS Never smoked tobacco (finding) [facility] Start: 09-07-2024 Sex Patient sex un known (finding) [facility] Start: 2000 Sex Assigned At Female F [facility] Start: 03-02-2024 Tobacco use and exposure Smoke less tobacco non-user [facility] Start: 03-02-2024 End: 06-01-2024 History of Social function [facility] Start: 03-02-2024 End: 06-01-2024 Social connection and isolation panel [facility] Active Member of Clu bs or Organizations Not on file [facility] How often to you hav e a drink containing alcohol? 2-4 times a month [facility] How many standard dr inks containing alcohol do you have on a typical day? 1 or 2 [facility] How often do you hav e 6 or more drinks on 1 occasion? Never [facility] In the past 12 month s, was there a time when you were not able to pay the mortgage or rent on time? No [facility] Start: 2000 Sex assigned at Not on file [facility] Medical Equipment Procedure Code Equipment Code Equipment Origin al Text Equipment Identifier Dates ERCP (endoscopic retrograde cholangiopancreatog rancho) STENT PANCREATIC [id number] FDA Start: 11-20-2017 Goals Date Patient Goal Desired Activity /State Procedure note 09-07-2024 Note Date & Type Note Facility 09-07-2024 Procedure note [facility] enter Evaluation note 08-24-2024 Note Date & Type Note Facility 08-24-2024 Evaluation note Diagnosis Onset Date Resolution Dyspepsia acute August 24, 2024 9:29am Nausea acute August 24, 2024 9:29am Chronic GERD chronic August 9:29am Constipation chronic August 9:29am [facility] Work Phone: Summary Purpose Family History Relationship Condition Age at Onset Recorded Date/T joe Not Specified No pertinent family history Unknown Advance Directives Advance Directive Response Recorded Date/ Time Advance Directives No November 20, 2017 7:11am Chief Complaint and Reason for Visit Chief Complaint Admit Date Refer: GERD, abdominal pain August 9:29am Abd pain/nausea September 07, 2024 12:15pm Abd pain/nausea September 07, 2024 1:25pm Reason for Visit Admit Date Dyspepsia August 24, 2024 9 :29am Nausea August 24, 2024 9 :29am Chronic GERD August 24, 2024 9 :29am Constipation August 24, 2024 9 :29am Additional Source Comments INFORMATION SOURCE (unrecogn ized section and content) DATE CREATED AUTHOR 12/24/2022 [facility] DATE CREATED AUTHOR AUTHOR'S ORGANIZ ATION 06/03/2024 [facility] EPIC DATE CREATED AUTHOR AUTHOR'S ORGANIZ ATION 08/30/2024 [facility] DATE CREATED AUTHOR AUTHOR'S ORGANIZ ATION 09/15/2024 [facility] Care Teams (unrecognized sec tion and content) Team Status: Active Member Role Status Dates Manuel Noel MD Primary Care Provider Active Team Status: Active Member Role Status Dates Manuel Noel MD Primary Care Provider Active S tart: June 10, 2024 Yasir Dueñas DO Attending Provider Active Sta rt: June 10, 2024 Team Status: Inactive Member Role Status Dates Manuel Noel MD Primary Care Provider Active S tart: August 24, 2024 End: August 24, 2024 Mir Silva MD Attending Provider Active S tart: August 24, 2024 End: August 24, 2024 Team Status: Inactive Member Role Status Dates Manuel Noel MD Primary Care Provider Active S tart: September 07, 2024 End: September 07, 2024 Mir Silva MD Attending Provider Active S tart: September 07, 2024 End: September 07, 2024 Team Status: Active Member Role Status Dates Manuel Noel MD Primary Care Provider Active S tart: September 07, 2024 Mir Silva MD Attending Provider, Other Provider Active Start: September 07, 2024 [employer] Relationship Specialty Start Date End Date Manuel Noel MD [address] [place] [address] PCP - General Family Medicine 03/02/24 FOR RECORDS PERTAINING TO PATIENTS WHO ARE [...] BE BASED ON THE PRIMARY CLINICAL RECORDS. [facility] [employer] [facility]. provides no warranty or guarantee of the accuracy or completeness of information in this document.
[2024-11-11 10:03] LABS: Basophils Absolute Auto 0.1 10^3/uL (0.0-0.1); Basophils Percent Auto 0.6 % (0.2-2.0); Eosinophils Absolute Auto 0.3 10^3/uL (0.0-0.7); Eosinophils Percent Auto 2.6 % (0.9-7.0); Hematocrit 38.2 % (36.0-48.0); Hemoglobin 12.4 g/dL (12.0-16.0); Immature Granulocytes Abs Auto 0.04 10^3/uL (0.00-0.03); Immature Granulocytes Pct Auto 0.4 % (0.0-0.5); Lymphocytes Absolute Auto 3.4 10^3/uL (1.2-3.8); Lymphocytes Percent Auto 34.8 % (20.5-60.0); Mean Corpuscular HGB Conc 32.5 g/dL (29.9-35.2); Mean Corpuscular Hemoglobin 28.3 pg (26.7-34.0); Mean Corpuscular Volume 87.2 fL (81.0-99.0); Monocytes Absolute Auto 0.7 10^3/uL (0.3-0.8); Monocytes Percent Auto 7.2 % (1.7-12.0); Neutrophils Absolute Auto 5.4 10^3/uL (1.4-6.5); Neutrophils Percent Auto 54.4 % (43.0-75.0); Platelet Count 261 10^3/uL (150-450); Red Blood Count 4.38 10^6/uL (4.20-5.40); Red Cell Distribution Width 13.2 % (11.0-15.0); White Blood Count 9.9 10^3/uL (4.0-11.0)
[2024-11-11 10:44] LABS: Thyroid Stimulating Hormone 6.367 uIU/mL (0.358-3.740)
[2024-11-11 10:49] LABS: Estimated Average Glucose 105 mg/dL; Glycohemoglobin A1C 5.3 % (4.5-6.2)
[2024-11-11 10:58] LABS: HCG Quantitative <1 mIU/mL
[2024-11-11 11:03] LABS: Free T4 1.04 ng/dL (0.76-1.46)
[2024-11-12 07:08] LABS: Prolactin 8.9 ng/mL (4.8-33.4)
[2024-11-12 08:10] LABS: FSH 4.5 mIU/mL (.)
[2024-11-15 05:06] LABS: DHEA, Serum 106 ng/dL (31-701)
== END 2024-11-11 09:43 | disposition home or self-care (01) ==
LOC: LAB 09:44
PROVIDERS: PCP Family Medicine; Visit Provider Obstetrics & Gynecology
DX: E28.2 Polycystic ovarian syndrome (principal)
CPT/HCPCS: 36415; 82626; 82627; 83001; 83002; 83036; 84146; 84439; 84443; 84702; 85025

== ENCOUNTER 2024-12-22 15:35 | Outpatient (REF) | payer OTHER, SELFPAY ==
[2024-12-28 15:10] LABS: Age Gdln ACOG Testing Note (.); IGP, rfx Aptima HPV ASCU Note (.)
== END 2024-12-22 15:36 | disposition home or self-care (01) ==
LOC: LAB 15:35
PROVIDERS: PCP Family Medicine; Visit Provider Physician Assistant
DX: Z01.419 Encounter for gynecological examination (general) (routine) without abnormal findings (principal)
CPT/HCPCS: 88175

== ENCOUNTER 2025-01-02 23:26 | Emergency (ER) | payer OTHER, SELFPAY ==
--- OUTSIDE RECORDS SUMMARY | 2025-01-02 23:36 | XMS_ITS | CCD ---
Author Organization [facility] CliniSymo Care Team Providers Care Fish Warden Name Role Phone DEMETRIOC, DR WILLS Attending [...] e ZIEBER, DR MYLENE Simpson Consulting Unavailable ANITA ., DR ANDREA Attending Unavailable TURNER, DR AISHWARYA Luis Consulting Unavailable NADERER, DR MANUEL Souza Primary Care Unavailable ANITA ., DR ANDREA Admitting Unavailable ANITA ., DR ANDREA Consulting Unavailable NADERER, DR [...] Attending Unavailable MOORE, NAVI N Referring Unavailable MANUEL NOEL Primary Care Unavailable BERT, MANUEL Primary Care Unavailable MYLENE SAMPSON Attending Unavailable Manuel Noel MD Primary Care Provider [phone] Mir Silva MD Attending Provider Mir Silva Attending Unavailable Mir Silva Admitting Unavailable Manuel Noel Primary Care Unavailable Manuel Noel MD Primary Care Provider [phone] Manuel Noel MD Unavailable ZULLY HOWARD Attending Unavailable ANITA, ZULLY Attending Unavailable GAELGIA LOUIE Attending Unavailable NADERER, MANUEL Attending Unavailable NADERER, MANUEL Attending Unavailable NADERER, MANUEL Attending Unavailable Allergies Allergy Classification Reported Allergen(s) Allergy Type Date of Onset Reaction(s) Facility (2 sources) Penicillins; Translations: [PENICILLINS] Drug allergy (disorder) 9 [facility] Repository (1 source) Penicillins Drug allergy (disorder) 4 [facility] Repository (10 sources) Penicillins Drug Intolerance 1 Unknown [facility] Medications Current Medications Medication Drug Class(es) Dates Sig (Normalized) Sig (Original) [id number] actuat albuterol 0.09 mg/actuat metered dose inhaler (10 sources) beta2-Adrenergic Agonist Start: 02-27-2024 End: 12-22-2024 take 2 puff(s) by inhalation every four hours albuterol HFA 90 mcg/act inhaler Indications: Mild intermittent intrinsic asthma without status asthmaticus without complication (CMS/HCC) Inhale 2 puffs every 4 (four) hours if needed for shortness of breath 18 g 3 02/27/2024 12/22/2024 Discontinued Start: 12-12-2021 End: 08-24-2024 Albuterol Sulfate (Ventolin Hfa) 90 mcg/actuation HFA aerosol inhaler Discontinued 2 INH INHALATION Q4H as needed for sob December 12, 2021 12:00am August 24, 2024 9:32am ethinyl estradiol 0.035 mg / norgestimate 0.25 mg oral tablet (3 sources) Progestin, Estrogen Start: 12-22-2024 End: 01-19-2025 take 1 tablet by mouth once daily, then take 1 tablet by mouth once daily norgestimate-ethinyl estradiol (Sprintec 28) 0.25-35 MG-MCG tablet Indications: control counseling Take 1 tablet by mouth Daily for 28 days Take 1 tablet by mouth daily 28 tablet 11 12/22/2024 01/19/2025 Active meclizine hydrochloride 25 mg oral tablet (1 source) Antiemetic Start: 08-24-2024 Meclizine 25 mg tablet Active 25 MG PO As Directed as needed for dizziness August 24, 2024 12:00am omeprazole 40 mg delayed release oral capsule (13 sources) Proton Pump Inhibitor Start: 03-02-2024 take 1 capsule by mouth in the morning omeprazole (PriLOSEC) 40 MG [...] Capsule,Delayed Release(Dr/Ec) Discontinued 20 MG PO Daily 30 December 14, 2021 12:00am September 07, 2024 1:33pm Start: 11-20-2017 End: 12-12-2021 Omeprazole 20 mg Capsule,Del ayed Release(Dr/Ec) Discontinued 20 MG PO as needed for Acne November 20, 2017 12:00am December 12, 2021 2:38pm ondansetron 4 mg oral tablet (8 sources) Serotonin-3 Receptor Antagonist Start: 11-11-2024 take 1 tablet by mouth every six hours as needed for nausea and nausea, then take 1 tablet by mouth every six hours as needed for nausea and nausea ondansetron (Zofran) 4 MG tablet Indications: Right ovarian cyst , Nausea , PCOS (polycystic ovarian syndrome) Take 1 tablet (4 mg) by mouth every 6 (six) hours if needed for nausea or vomiting for up to 30 doses Take 1 tablet by mouth every 6 hours as needed for nausea. 30 tablet 3 11/11/2024 Active promethazine hydrochloride 25 mg oral tablet (11 sources) Phenothiazine Start: 08-27-2024 take 1 tablet [...] 25, 2019 11:00pm December 12, 2021 2:38pm cyclobenzaprine hydrochloride 10 mg oral tablet (4 sources) Muscle Relaxant Start: 06-01-2024 End: 11-11-2024 take 1 tablet by mouth three times daily as needed for muscle spasms cyclobenzaprine (Flexeril) 10 MG tablet Indications: Right sided sciatica Take 1 tablet (10 mg) by mouth 3 (three) times a day as needed for muscle spasms 30 tablet 06/01/2024 11/11/2024 Discontinued (Other) Drospirenone-Ethinyl Estradiol (1 source) Progestin, Estrogen Start: [...] Discontinued 30 MG PO Daily at bedtime 30 December 14, 2021 12:00am August 24, 2024 9:32am ergocalciferol 1.25 mg oral capsule (1 source) Provitamin D2 Compound Start: 01-26-2019 End: 12-12-2021 Ergocalciferol (Vitamin D2) 50,000 unit Capsule Discontinued [id number] UNIT PO Sa@0900 2 January 25, 2019 11:00pm December 12, 2021 2:38pm sertraline 50 mg oral tablet (1 source) Serotonin Reuptake Inhibitor Start: 01-26-2019 End: 12-12-2021 take 1 tablet by mouth once daily Sertraline 50 mg Tablet Discontinued 50 MG PO Daily 14 January 25, 2019 11:00pm December 12, 2021 2:38pm Problems Active Problems Problem Classification Problem Date Documented Da te Episodic/Chronic Acute posthemorrhagic anemia (1 source) Acute posthemorrhagic anemia; Translations: [ACUTE POSTHEMORRHAGIC ANEMIA] Onset: 3 Episodic Asthma (10 sources) Mild intermittent asthma; Translations: [Mild intermittent asthma, uncomplicated] Onset: 4 03-02-2024 Chronic Contraceptive and procreative management (3 sources) Subcutaneous contraceptive implant present; Translations: [Encounter for surveillance of implantable subdermal contraceptive] 12-02-2024 Episodic Esophageal disorders (12 sources) Gastroesophageal reflux disease; Translations: [Gastro-esophageal reflux disease without esophagitis] Onset: 4 01-21-2019 Chronic Influenza (1 source) Influenza due to other identified influenza virus with other respiratory manifestations; Translations: [FLU D/T OTH ID FLU VIR OTH RSP MANF] Onset: 2 Episodic Menstrual disorders (14 sources) Irregular menstruation, unspecified; Translations: [Amenorrhea] Onset: 2 Chronic Mood disorders (11 sources) Recurrent major depression; Translations: [Major depressive disorder, recurrent, unspecified] Onset: 4 01-21-2019 Chronic Nausea and vomiting (4 sources) Nausea; Translations: [Nausea] 08-24-2024 Episodic Noninfectious [...] [OTALGIA LEFT EAR] Onset: 2 Episodic Other endocrine disorders (2 sources) Polycystic ovary syndrome; Translations: [Polycystic ovarian syndrome] 11-11-2024 Chronic Other gastrointestinal disorders (1 source) Constipation; Translations: [Constipation, unspecified] 01-21-2019 Episodic Other gastrointestinal disorders (1 source) Constipation, unspecified; Translations: [Constipation, unspecified] 08-24-2024 Episodic Other nutritional; endocrine; and metabolic disorders (10 sources) Morbid obesity; Translations: [Morbid (severe) obesity due [...] Onset: 2 Episodic Other upper respiratory disease (10 sources) Allergic rhinitis due to pollen; Translations: [Allergic rhinitis due to pollen] Onset: 4 03-02-2024 Chronic Otitis media and related conditions (1 source) Unspecified nonsuppurative otitis media, bilateral; Translations: [UNS NONSUPPURATIVE OTITIS MEDIA OSCAR] Onset: 2 Episodic Ovarian cyst (2 sources) Cyst of right ovary; Translations: [Unspecified ovarian cyst, right side] 11-11-2024 Episodic Residual codes; unclassified (1 source) 38 [...] Problem Date Documented Date Episodic/Chronic Abdominal pain (18 sources) Generalized abdominal pain; Translations: [Abdominal pain] Onset: 02-28-2024 Resolved: 06-01-2024 08-24-2024 Episodic Immunizations and screening for infectious disease (2 [...] Spondylosis; intervertebral disc disorders; other back problems (14 sources) Cervicalgia; Translations: [Torticollis] Onset: 07-13-2022 Episodic Results Test Name Value Interpretation Reference Range Facility IGP,APTIMA HPV,AGE GDLNon AGE GDLN ACOG TESTING Note . [facility] Comment on above: TESTS RESULT FLAG UN ITS REF RANGE LAB Clinician Provided Cytology Information Source.............Cervix;Endocervix No. of containers..01 ThinPrep Vial Age Algo ACOG Mela... FLAG LEGEND: L-Low Normal,H-High Normal,LL-Alert Low,HH-Alert High <-Panic Low,>-Panic High,A-Abnormal,AA-Critical Abnormal Performed at: 01 =G Rossana Morales [address] [place] [address], [place] [address] Aleida Colon MD, IGP, RFX APTIMA HPV ASCU Note Abnormal . [facility] Healthcare Comment on above: TESTS RESULT FLAG UN ITS REF RANGE LAB DIAGNOSIS: [A] 02 EPITHELIAL CELL ABNORMALITY. LOW GRADE SQUAMOUS INTRAEPITHELIAL LESION (LSIL). Specimen adequacy: 02 Satisfactory for evaluation. Endocervical and/or squamous metaplastic cells (endocervical component) are present. Performed by: Cynthia Smith, Forming Press Operator ([facility]) Electronically si... 02 Johanne Desir MD, Pathologist . 02 Pathologist ICD10: 02 R87.612 Note: Note 02 The Pap smear is a screening test designed to aid in the detection of premalignant and malignant conditions of the uterine cervix. It is not a diagnostic procedure and should not be used as the sole means of detecting cervical cancer. Both false-positive and false-negative reports do occur. Test Methodology: Note 02 This liquid based ThinPrep(R) pap test was screened with the use of an image guided system. . 02 The HPV DNA reflex criteria were not met with this specimen result therefore, no HPV testing was performed. FLAG LEGEND: L-Low Normal,H-High Normal,LL-Alert Low,HH-Alert High <-Panic Low,>-Panic High,A-Abnormal,AA-Critical Abnormal Performed at: [address] [facility] [address] Aleida Colon MD, Performed at: = - [facility], [place] [id number] Slip Box Changer: Aleida Colon MD, Phone: [phone] Performed at: - [facility], [address] [id number] Slip Box Changer: Aleida Colon MD, Phone: [phone] Interpretation and review of laboratory results Abnormal [facility] BRUSH-SPATULA CERVIX ENDOCERVIX [facility] Insertion/Removal of Contrac eptive Capsuleon 12-02-2024 Pilar Collins LPN 12/02/2024 3:17 PM Insertion/Removal of Contraceptive Capsule Date/Time: 12/02/2024 1:19 PM Performed by: Zully Howard DO Authorized by: Zully Howard DO Consent: Consent obtained: Written Consent given by: Patient Patient questions answered: yes Patient agrees, verbalizes understanding, and wants to proceed: yes Educational handouts given: yes Instructions and paperwork completed: yes Indication: Indication: Presence of non-biodegradable drug delivery implant Pre-procedure: Pre-procedure timeout performed: yes Prepped with: alcohol 70% Local anesthetic: Lidocaine without epinephrine The site was cleaned and prepped in a sterile fashion: yes Procedure: Procedure: Removal Small stab incision was made in arm: yes Left/right: Left Preloaded contraceptive capsule trocar was placed subdermally: no Visualization of implant was obtained: yes Contraceptive capsule was inserted and trocar removed: no Site was closed with steri-strips and pressure bandage applied: yes [facility] US PELVIC COMPLETE W/ TVon 0 11-30-2024 US PELVIC COMPLETE W/ TV EXAM: US PELVIC COMPLETE W/ TV HISTORY: Right ovarian cyst, right lower quadrant pain. COMPARISON: Abdomen CT 11/30/2024 - Report only. TECHNIQUE: Two-dimensional transabdominal grayscale ultrasound imaging of the pelvis was performed. Color flow Doppler imaging of the ovaries was also performed. Transvaginal was performed. FINDINGS: UTERUS 7.2 x 3.5 x 3.9 cm The uterus is anteverted in position and demonstrates a mildly heterogeneous echotexture. ENDOMETRIUM 0.3 cm The endometrium demonstrates a normal, homogeneous echotexture. RIGHT OVARY 1.7 x 1.2 x 1.7 cm The right ovary demonstrates a normal echotexture. There is normal color Doppler flow. LEFT OVARY 2.4 x 1.6 x 2.5 cm The left ovary demonstrates a normal echotexture. There is normal color Doppler flow. There is a dominant follicle visualized. No fluid is present within the cul-de-sac. IMPRESSION: 1. Mildly heterogeneous uterine echotexture. 2. Normal color Doppler flow within the bilateral ovaries. No evidence of ovarian cysts. Electronically Signed:Electronically signed by NORMA SANDERSON II, MD, PHD at 03-Dec-2024 08:37:11 AM [facility] Normal Not Available Comment on above: Order Comment: US PE LVIS-TRANSVAG IF INDICATED No LMP recorded. ALL CBC WITH AUTO DIFFon BASOPHILS ABSOLUTE AUTO 0.1 [facility] Basophils/100 WBC (Bld) 0.6 % 0.2 - 2.0 % [facility] Eosinophils/100 WBC (Bld) 2.6 % 0.9 - 7.0 % [facility] Erythrocyte distribution width (RBC) [Ratio] 13.2 % 11.0 - 15.0 % [facility] Hematocrit (Bld) [Volume fraction] 38.2 % 36.0 - 48.0 % [facility] Hemoglobin (Bld) [Mass/Vol] 12.4 g/dL 12.0 - 16.0 g/dL [facility] IMMATURE GRANULOCYTES ABS AUTO 0.04 High [facility] Immature granulocytes/100 WBC (Bld) 0.4 % 0.0 - 0.5 % [facility] Interpretation and review of laboratory results Abnormal [facility] LYMPHOCYTES ABSOLUTE AUTO 3.4 [facility] Lymphocytes/100 WBC (Bld) 34.8 % 20.5 - 60.0 % [facility] MCH (RBC) [Entitic mass] 28.3 pg 26.7 - 34.0 pg [facility] MCHC (RBC) [Mass/Vol] 32.5 g/dL 29.9 - 35.2 g/dL [facility] MCV (RBC) [Entitic vol] 87.2 fL 81.0 - 99.0 fL [facility] MONOCYTES ABSOLUTE AUTO 0.7 [facility] Monocytes/100 WBC (Bld) 7.2 % 1.7 - 12.0 % [facility] NEUTROPHILS ABSOLUTE AUTO 5.4 [facility] Neutrophils/100 WBC (Bld) 54.4 % 43.0 - 75.0 % [facility] Platelet mean volume (Bld) [Entitic vol] 10 fL 9.5 - 13.5 fL [facility] TB EO # 0.3 [facility] TB PLT 261 [facility] TBH RBC 4.38 [facility] WBC 9.9 [facility] HCG ( test) IA.rapi d Ql (U)Ordered By: Mir Silva on 09-07-2024 HCG ( test) Ql (U) Urine human chorionic gonadotropin (hCG) detection by immunoassay [facility] HCG,Urineon 09-07-2024 Beta HCG ( test) Ql (U) Negative Normal [facility] Comment on above: Result Comment: PERF ORMED BY: [place] [address] PATHOLOGIST BUCKET WASH OPERATOR BRUCE CALI M.D. Performed By: #### U HCG #### [address] 09-07-2024 L - -------- Specimen: [id number] Received: 09/07/24 Status: GHAZAL [place] Num: [id number] Spec Type: Surgical Subm Dr: Mir Silva MD Tissues: A Small Intestine - Biopsy/Polyp (SMALL BOWEL BX R/O CELIAC) Procedures: HE/2, Gross/Micro L4 -------- Age/ Patient Sex Location Account Attending Physician -------- Jes Malik [id number] Mir Silva MD -------- SPEC NUM: [id number] RECD: 09/07/24 STATUS: GHAZAL [place] NUM: [id number] ETIENNE: 09/07/[address] [facility] [address]: Mir Silva MD ENTERED: 09/07/24 [facility] DR: ARNULFO TYPE: Surgical DEPT: S ENTERED BY: [id number] RECV BY: [id number] ORDERED: HE/2, Gross/Micro L4 ORDERED: HE/2, Gross/Micro [...] submitted in a single cassette. (1, ns, [id number]) Microscopic Description Microscopic examination is performed. CPT Codes 77587 -------- -------- Specimen: [id number] Received: 09/07/24 Status: GHAZAL [place] Num: [id number] Spec Type: Surgical Subm Dr: Mir Silva MD Tissues: A Small Intestine - Biopsy/Polyp (SMALL BOWEL BX R/O CELIAC) Procedures: HE/2, Gross/Micro L4 -------- Patient: Jes Malik [id number] (Continued) -------- Signed (signature on file) Roberth Martinez MD 09/08/24 1012 Normal [facility] CBC AND AUTO DIFFon 08-28-20 24 ABSOLUTE BASOPHIL 0.0 X10E9/L Normal 0.0-0.2 [facility] Comment on above: Performed By: #### C DONG, CBCA #### [facility] ([id number]) [address] [place] [address] ABSOLUTE NEUTROPHIL 3.8 X10E9/L Normal 1.5-6.6 [facility] Comment on above: Performed By: #### C MP, CBCA #### [facility] ([id number]) [address] [place] [address] 78440 Basophils/100 WBC (Bld) 0.3 % Normal [facility] Comment on above: Performed By: #### C MP, CBCA #### [facility] ([id number]) [address] [place] [address]355 Eosinophils (Bld) [#/Vol] 0.0 10*3/uL Normal 0.0-0.4 [facility] Comment on above: Performed By: #### C MP, CBCA #### [facility] ([id number]) [address] [place] [address] 60465 Eosinophils/100 WBC (Bld) 0.8 % Normal [facility] Comment on above: Performed By: #### C MP, CBCA #### [facility] ([id number]) [address] [place] [address]35 Erythrocyte distribution width (RBC) [Ratio] 14.5 % Normal 11.5-15.0 [facility] Comment on above: Performed By: #### C MP, CBCA #### [facility] ([id number]) [address] [place] [address] 94530 Hematocrit (Bld) [Volume fraction] 38.8 % Normal 35-47 [facility] Comment on above: Performed By: #### C MP, CBCA #### [facility] ([id number]) [address] [place] [address]1969 Hemoglobin (Bld) [Mass/Vol] 13.0 g/dL Normal 11.7-15.5 [facility] Comment on above: Performed By: #### C MP, CBCA #### [facility] ([id number]) [address] [place] [address] 41606 Lymphocytes (Bld) [#/Vol] 0.5 10*3/uL Low 1.0-3.5 [facility] Comment on above: Performed By: #### C MP, CBCA #### [facility] ([id number]) [address] [place] [address] 69667 Lymphocytes/100 WBC (Bld) 11.5 % Normal [facility] Comment on above: Performed By: #### C MP, CBCA #### [facility] ([id number]) [address] [place] [address] 61933 MCH (RBC) [Entitic mass] 28.6 pg Normal 27-34 [facility] Comment on above: Performed By: #### C MP, CBCA #### [facility] ([id number]) [address] [place] [address] 12041 MCHC (RBC) [Mass/Vol] 33.5 g/dL Normal 32-36 [facility] Comment on above: Performed By: #### C MP, CBCA #### [facility] ([id number]) [address] [place] [address] 58717 MCV (RBC) [Entitic vol] 85 fL Normal 80-100 [facility] Comment on above: Performed By: #### C MP, CBCA #### [facility] ([id number]) [address] [place] [address] 59732 Monocytes (Bld) [#/Vol] 0.2 10*3/uL Normal 0-0.9 [facility] Comment on above: Performed By: #### C MP, CBCA #### [facility] ([id number]) [address] [place] [address] 65863 Monocytes/100 WBC (Bld) 5.1 % Normal [facility] Comment on above: Performed By: #### C MP, CBCA #### [facility] ([id number]) [address] [place] [address] 10264 Neutrophils/100 WBC (Bld) 82.3 % Normal [facility] Comment on above: Performed By: #### C MP, CBCA #### [facility] ([id number]) [address] [place] [address] 25759 Platelet mean volume (Bld) [Entitic vol] 8.6 fL Normal 7-12 [facility] Comment on above: Performed By: #### C MP, CBCA #### [facility] ([id number]) [address] [place] [address] 39805 Platelets (Bld) [#/Vol] 225 10*3/uL Normal 150-450 [facility] Comment on above: Performed By: #### C MP, CBCA #### [facility] ([id number]) [address] [place] [address] 08947 RBC COUNT 4.55 X10E12/L Normal 3.80-5.20 [facility] Comment on above: Performed By: #### C MP, CBCA #### [facility] ([id number]) [address] [place] [address] 72937 WBC (Bld) [#/Vol] 4.6 10*3/uL Normal 4.0-11.0 [facility] Comment on above: Performed By: #### C MP, CBCA #### [facility] ([id number]) [address] [place] [address] 21766 COMPREHENSIVE METABOLIC PANE Carlin 08-28-2024 Albumin [Mass/Vol] 3.6 g/dL Normal 3.2-5.3 [facility] Comment on above: Performed By: #### C MP, CBCA #### [facility] ([id number]) [address] [place] [address] 89090 ALP [Catalytic activity/Vol] 65 U/L Normal 39-130 [facility] Comment on above: Performed By: #### C MP, CBCA #### [facility] ([id number]) [address] [place] [address] 95616 ALT [Catalytic activity/Vol] 29 U/L Normal 0-31 [facility] Comment on above: Performed By: #### C DONG, CBCA #### [facility] ([id number]) [address] [place] [address] 03945 Anion gap [Moles/Vol] 10 mmol/L Normal 5-15 [facility] Comment on above: Performed By: #### C DONG, CBCA #### [facility] ([id number]) [address] [place] [address] 05990 AST [Catalytic activity/Vol] 36 U/L Normal 0-41 [facility] Comment on above: Performed By: #### C DONG, CBCA #### [facility] ([id number]) [address] [place] [address] 75114 Bilirubin [Mass/Vol] 0.9 mg/dL Normal 0.3-1.2 [facility] Comment on above: Performed By: #### C DONG, CBCA #### [facility] ([id number]) [address] [place] [address] [place] [address] Calcium [Mass/Vol] 8.3 mg/dL Low 8.5-10.5 [facility] Comment on above: Performed By: #### C DONG, CBCA #### [facility] ([id number]) [address] [place] [address] 94289 Chloride [Moles/Vol] 103 mmol/L Normal 98-109 [facility] Comment on above: Performed By: #### C JOAQUINA UMANA #### [facility] ([id number]) [address] [place] [address] 23146 CO2 [Moles/Vol] 22 mmol/L Normal 22-32 [facility] Comment on above: Performed By: #### C DIANE UMANAA #### [facility] ([id number]) [address] [place] [address] 05845 Creatinine [Mass/Vol] 0.72 mg/dL Normal 0.40-1.00 [facility] Comment on above: Result Comment: METH OD TRACEABLE TO IDMS STANDARD Performed By: #### C JOAQUINA UMANA #### [facility] ([id number]) [address] [place] [address] 88742 eGFR (CKD-EPI) NON-RACE DEPENDENT >90 Normal >59 [facility] Comment on above: Result Comment: Reported eGFR is based on the CKD-EPI 1 equation that does not use a race coefficient. Performed By: #### C JOAQUINA UMANA #### [facility] ([id number]) [address] [place] [address] 28160 Glucose [Mass/Vol] 103 mg/dL High 65-99 [facility] Comment on above: Performed By: #### C JOAQUINA UMANA #### [facility] ([id number]) [address] [place] [address] 08595 Potassium [Moles/Vol] 3.5 mmol/L Normal 3.5-5.0 [facility] Comment on above: Performed By: #### C JOAQUINA UMANA #### [facility] ([id number]) [address] [place] [address] 48605 Protein [Mass/Vol] 6.9 g/dL Normal 6.0-8.0 [facility] Comment on above: Performed By: #### C DONG CBCA #### [facility] ([id number]) [address] [place] [address] Sodium [Moles/Vol] 135 mmol/L Normal 134-146 [facility] Comment on above: Performed By: #### C MP, CBCA #### [facility] ([id number]) [address] [place] [address] Urea nitrogen [Mass/Vol] 16 mg/dL Normal 5-23 [facility] Comment on above: Performed By: #### C MP, CBCA #### [facility] ([id number]) [address] [place] [address] ABDOMEN AND PELVIS W CONT on [...] Burleson MD on 08/28/2024 8:12 PM Normal [facility] HCG ( test) Ql (U)o n 08-28-2024 Beta HCG ( test) Ql (U) Negative Normal NEG [facility] Comment on above: Performed By: #### 2 106-3 #### [facility] ([id number]) [address] [place] [address] 03909 URN MACROSCOPIC NURon 2023 BILIRUBIN MOLLY Small Abnormal NEG [facility] Comment on above: Performed By: #### N UM #### [facility] ([id number]) [address] [place] [address] 88695 BLOOD/HGB MOLLY Negative Normal NEG [facility] Comment on above: Performed By: #### N UM #### [facility] ([id number]) [address] [place] [address] [place] [address] GLUCOSE MOLLY Negative Normal NEG [facility] Comment on above: Performed By: #### N UM #### [facility] ([id number]) [address] [place] [address] [place] [address] KETONES MOLLY Negative Normal NEG [facility] Comment on above: Performed By: #### N UM #### [facility] ([id number]) [address] [place] [address] [place] [address] LEUKOCYTE ESTERASE MOLLY Negative Normal NEG [facility] Comment on above: Performed By: #### N UM #### [facility] ([id number]) [address] [place] [address] [place] [address] NITRITE MOLLY Negative Normal [facility] Comment on above: Performed By: #### N UM #### [facility] ([id number]) [address] [place] [address] 17123 PH MOLLY 5.5 Normal 5.0-8.5 [facility] Comment on above: Performed By: #### N UM #### [facility] ([id number]) [address] [place] [address] 32053 PROTEIN MOLLY >=300 Abnormal NEG [facility] Comment on above: Performed By: #### N UM #### [facility] ([id number]) [address] [place] [address] 26245 SPECIFIC GRAVITY MOLLY >=1.030 Normal 1.003-1.035 [facility] Comment on above: Performed By: #### N UM #### [facility] ([id number]) [address] [place] [address] 41538 UROBILINOGEN MOLLY 0.2 eu/dL Normal <1.1 [facility] Comment on above: Performed By: #### N UM #### [facility] ([id number]) [address] [place] [address] 94292 MHPT TRICHOMONAS/WET PREPon 07-01-2024 WET PREP TRIC [...] WET PREP TRIC BV MICHAELA WP.WBC WBC^WBC [facility] No Panel Informationon 07-01 WET PREP TRIC BV MICHAELA F Few^Few [facility] WET PREP TRIC BV MICHAELA N None Seen^None Seen [facility] CBC AND AUTO DIFFon 02-28-20 24 ABSOLUTE BASOPHIL 0.1 X10E9/L Normal 0.0-0.2 [facility] Comment on above: Performed By: #### C MP, 3040-3, 68796-9, CBCA #### [facility] ([id number]) [address] [place] [address] 47974 ABSOLUTE NEUTROPHIL 8.4 X10E9/L High 1.5-6.6 [facility] Comment on above: Performed By: #### C DONG, 3039-12, , CBCA #### [facility] ([id number]) [address] [place] [address] 17949 Basophils/100 WBC (Bld) 0.9 % Normal [facility] Comment on above: Performed By: #### C DONG, 3039-12, , CBCA #### [facility] ([id number]) [address] [place] [address] 91795 Eosinophils (Bld) [#/Vol] 0.2 10*3/uL Normal 0.0-0.4 [facility] Comment on above: Performed By: #### C DONG, 3039-12, , CBCA #### [facility] ([id number]) [address] [place] [address] 30996 Eosinophils/100 WBC (Bld) 2.1 % Normal [facility] Comment on above: Performed By: #### C ODNG, 3039-12, , CBCA #### [facility] ([id number]) [address] [place] [address] 58980 Erythrocyte distribution width (RBC) [Ratio] 14.8 % Normal 11.5-15.0 [facility] Comment on above: Performed By: #### C DONG, 3039-12, , CBCA #### [facility] ([id number]) [address] [place] [address] 55499 Hematocrit (Bld) [Volume fraction] 38.8 % Normal 35-47 [facility] Comment on above: Performed By: #### C DONG, 3039-12, , CBCA #### [facility] ([id number]) [address] [place] [address] 43198 Hemoglobin (Bld) [Mass/Vol] 12.7 g/dL Normal 11.7-15.5 [facility] Comment on above: Performed By: #### C DONG, 3039-12, , CBCA #### [facility] ([id number]) [address] [place] [address] 87366 Lymphocytes (Bld) [#/Vol] 2.0 10*3/uL Normal 1.0-3.5 [facility] Comment on above: Performed By: #### C DONG, 3039-12, , CBCA #### [facility] ([id number]) [address] [place] [address] 75358 Lymphocytes/100 WBC (Bld) 17.0 % Normal [facility] Comment on above: Performed By: #### C DONG, 3039-12, , CBCA #### [facility] ([id number]) [address] [place] [address] 78956 MCH (RBC) [Entitic mass] 27.8 pg Normal 27-34 [facility] Comment on above: Performed By: #### C DONG, 3039-12, , CBCA #### [facility] ([id number]) [address] [place] [address] 16552 MCHC (RBC) [Mass/Vol] 32.8 g/dL Normal 32-36 [facility] Comment on above: Performed By: #### Ginger UMANA, 3039-12, , CBCA #### [facility] ([id number]) [address] [place] [address] 84858 MCV (RBC) [Entitic vol] 85 fL Normal 80-100 [facility] Comment on above: Performed By: #### C DONG, 3039-12, , CBCA #### [facility] ([id number]) [address] [place] [address] 02661 Monocytes (Bld) [#/Vol] 0.7 10*3/uL Normal 0-0.9 [facility] Comment on above: Performed By: #### C DONG, 3039-12, , CBCA #### [facility] ([id number]) [address] [place] [address] 87099 Monocytes/100 WBC (Bld) 6.4 % Normal [facility] Comment on above: Performed By: #### C DONG, 3039-12, , CBCA #### [facility] ([id number]) [address] [place] [address] 63771 Neutrophils/100 WBC (Bld) 73.6 % Normal [facility] Comment on above: Performed By: #### C DONG, 3039-12, , CBCA #### [facility] ([id number]) [address] [place] [address] [place] [address] Platelet mean volume (Bld) [Entitic vol] 8.3 fL Normal 7-12 [facility] Comment on above: Performed By: #### C DONG, 3039-12, , CBCA #### [facility] ([id number]) [address] [place] [address] 88190 Platelets (Bld) [#/Vol] 297 10*3/uL Normal 150-450 [facility] Comment on above: Performed By: #### C DONG, 3039-12, , CBCA #### [facility] ([id number]) [address] [place] [address] 60848 RBC COUNT 4.58 X10E12/L Normal 3.80-5.20 [facility] Comment on above: Performed By: #### C DONG, 3039-12, , CBCA #### [facility] ([id number]) [address] [place] [address] 55186 WBC (Bld) [#/Vol] 11.4 10*3/uL High 4.0-11.0 [facility] Comment on above: Performed By: #### C DONG, 3, , CBCA #### [facility] ([id number]) [address] [place] [address] 99911 COMPREHENSIVE METABOLIC PANE Carlin 02-28-2024 Albumin [Mass/Vol] 4.0 g/dL Normal 3.2-5.3 [facility] Comment on above: Performed By: #### C DONG, 3039-12, , CBCA #### [facility] ([id number]) [address] [place] [address] 12664 ALP [Catalytic activity/Vol] 87 U/L Normal 39-130 [facility] Comment on above: Performed By: #### Ginger UMANA, 3039-12, , CBCA #### [facility] ([id number]) [address] [place] [address] 92063 ALT [Catalytic activity/Vol] 20 U/L Normal 0-31 [facility] Comment on above: Performed By: #### C DONG, 3039-12, , CBCA #### [facility] ([id number]) [address] [place] [address] 56171 Anion gap [Moles/Vol] 11 mmol/L Normal 5-15 [facility] Comment on above: Performed By: #### C DONG, 3039-12, , CBCA #### [facility] ([id number]) [address] [place] [address] 26419 AST [Catalytic activity/Vol] 27 U/L Normal 0-41 [facility] Comment on above: Performed By: #### C DONG, 3, , CBCA #### [facility] ([id number]) [address] [place] [address] 92424 Bilirubin [Mass/Vol] 0.8 mg/dL Normal 0.3-1.2 [facility] Comment on above: Result Comment: RESU LTS QUESTIONABLE DUE TO HEMOLYSIS Performed By: #### C DONG, 3039-12, , CBCA #### [facility] ([id number]) [address] [place] [address] 05113 Calcium [Mass/Vol] 8.5 mg/dL Normal 8.5-10.5 [facility] Comment on above: Performed By: #### C DONG, 3039-12, , CBCA #### [facility] ([id number]) [address] [place] [address] 88754 Chloride [Moles/Vol] 106 mmol/L Normal 98-109 [facility] Comment on above: Performed By: #### C DONG, 3039-12, , CBCA #### [facility] ([id number]) [address] [place] [address] 90572 CO2 [Moles/Vol] 18 mmol/L Low 22-32 [facility] Comment on above: Performed By: #### C DONG, 3039-12, , CBCA #### [facility] ([id number]) [address] [place] [address] 04315 Creatinine [Mass/Vol] 0.60 mg/dL Normal 0.40-1.00 [facility] Comment on above: Result Comment: METH OD TRACEABLE TO IDMS STANDARD Performed By: #### C DONG, 3039-12, , CBCA #### [facility] ([id number]) [address] [place] [address] 37847 eGFR (CKD-EPI) NON-RACE DEPENDENT >90 Normal >59 [facility] Comment on above: Result Comment: Reported eGFR is based on the CKD-EPI 2020 equation that does not use a race coefficient. Performed By: #### C DONG, 3039-12, , CBCA #### [facility] ([id number]) [address] [place] [address] 65867 Glucose [Mass/Vol] 84 mg/dL Normal 65-99 [facility] Comment on above: Performed By: #### C DONG, 3039-12, , CBCA #### [facility] ([id number]) [address] [place] [address] 06936 Potassium [Moles/Vol] 4.5 mmol/L Normal 3.5-5.0 [facility] Comment on above: Result Comment: SPEC IMEN HEMOLYZED, RESULTS INCREASED Performed By: #### C DONG, 3039-12, , CBCA #### [facility] ([id number]) [address] [place] [address] 97935 Protein [Mass/Vol] 7.8 g/dL Normal 6.0-8.0 [facility] Comment on above: Performed By: #### C DONG, 3039-12, , CBCA #### [facility] ([id number]) [address] [place] [address] 51164 Sodium [Moles/Vol] 135 mmol/L Normal 134-146 [facility] Comment on above: Performed By: #### C DONG, 3039-12, , CBCA #### [facility] ([id number]) [address] [place] [address] 36885 Urea nitrogen [Mass/Vol] 12 mg/dL Normal 5-23 [facility] Comment on above: Performed By: #### C DONG, 3039-12, , CBCA #### [facility] ([id number]) [address] [place] [address] ABDOMEN AND PELVIS W CONT on [...] Crawford MD on 02/28/2024 3:45 AM Normal [facility] HCG ( test) Ql (U)o n 02-28-2024 Beta HCG ( test) Ql (U) Negative Normal NEG [facility] Comment on above: Performed By: #### 2 106-3 #### [facility] ([id number]) [address] [place] [address] 29573 LIPASEon 02-28-2024 Lipase [Catalytic activity/Vol] 28 U/L Normal 17-40 [facility] Comment on above: Performed By: #### C , 3040-3, , CBCA #### [facility] ([id number]) [address] [place] [address] 50290 MAGNESIUMon 02-28-2024 Magnesium [Mass/Vol] 2.1 mg/dL Normal 1.8-2.6 [facility] Comment on above: Performed By: #### C DONG, 3040-3, , CBCA #### [facility] ([id number]) [address] [place] [address] 39246 URN MACROSCOPIC NURon 2023 BILIRUBIN MOLLY Negative Normal NEG [facility] Comment on above: Performed By: #### N UM #### [facility] ([id number]) [address] [place] [address] 58648 BLOOD/HGB MOLLY Trace Abnormal NEG [facility] Comment on above: Performed By: #### N UM #### [facility] ([id number]) [address] [place] [address] [place] [address] GLUCOSE MOLLY Negative Normal NEG [facility] Comment on above: Performed By: #### N UM #### [facility] ([id number]) [address] [place] [address] [place] [address] KETONES MOLLY Negative Normal NEG [facility] Comment on above: Performed By: #### N UM #### [facility] ([id number]) [address] [place] [address] [place] [address] LEUKOCYTE ESTERASE MOLLY Negative Normal NEG [facility] Comment on above: Performed By: #### N UM #### [facility] ([id number]) [address] [place] [address] [place] [address] NITRITE MOLLY Negative Normal NEG [facility] Comment on above: Performed By: #### N UM #### [facility] ([id number]) [address] [place] [address] [place] [address] PH MOLLY 5.5 Normal 5.0-8.5 [facility] Comment on above: Performed By: #### N UM #### [facility] ([id number]) [address] [place] [address] 90808 PROTEIN MOLLY >=300 Abnormal NEG [facility] Comment on above: Performed By: #### N UM #### [facility] ([id number]) [address] [place] [address] [place] [address] SPECIFIC GRAVITY MOLLY >=1.030 Normal 1.003-1.035 [facility] Comment on above: Performed By: #### N UM #### [facility] ([id number]) [address] [place] [address] 39230 UROBILINOGEN MOLLY 0.2 eu/dL Normal <1.1 [facility] Comment on above: Performed By: #### N UM #### [facility] ([id number]) [address] [place] [address] 72088 PRBC LEUKOREDUCEDon 12-25-19 23 ABO and Rh group Nom (Bld) Cross Match Result Compatible Unit Blood Type O Pos Unit Number [id number] Status Information Transfused Product ID Red Blood Cells Product Code [id number] Cross Match Result Compatible Unit Blood Type O Pos Unit Number [id number] Status Information Transfused Product ID Red Blood Cells Product Code [id number] Normal [facility] Comment on above: Performed By: #### P RBC ####[facility] [address] [place], [place] [address]Dr. Benoit Diggs CBC AUTO DIFFon 12-21-2022 BASO # 0.1 103/ul Normal 0.0-0.1 [facility] Comment on above: Performed By: #### C BC ####[facility] [address] [place], [place] [address]Dr. Benoit Diggs Basophils/100 WBC (Bld) 1.2 % Normal 0.2-2.0 [facility] Comment on above: Performed By: #### C BC ####[facility] [address] [place], [place] [address]Dr. Benoit Diggs EO # 0.4 103/ul Normal 0.0-0.7 [facility] Comment on above: Performed By: #### C BC ####[facility] [address] [place], [place] [address]Dr. Benoit Diggs Eosinophils/100 WBC (Bld) 4.5 % Normal 0.9-7.0 [facility] Comment on above: Performed By: #### C BC ####[facility] [address] [place], [place] [address]Dr. Karyaurora Diggs Erythrocyte distribution width (RBC) [Ratio] 16.6 % Critically high 11.0-15.0 [facility] Comment on above: Performed By: #### C BC ####[facility] [address] [place], [place] [address]Dr. Karyaurora Diggs Hematocrit (Bld) [Volume fraction] 40.3 % Normal 36.0-48.0 [facility] Comment on above: Performed By: #### C BC ####[facility] [address] [place], [place] [address]Dr. Karyaurora Diggs Hemoglobin (Bld) [Mass/Vol] 12.6 g/dL Normal 12.0-16.0 [facility] Comment on above: Performed By: #### C BC ####[facility] [address] [place], [place] [address]Dr. Benoit Diggs IG # 0.04 10e3/ul Critically high 0.00-0.03 [facility] Comment on above: Performed By: #### C BC ####[facility] [address] [place], [place] [address]Dr. Benoit Diggs IG % 0.5 % Normal 0.0-0.5 [facility] Comment on above: Performed By: #### C BC ####[facility] [address] [place], [place] [address]Dr. Benoit Diggs LYMPH # 3.0 103/ul Normal 1.2-3.8 [facility] Comment on above: Performed By: #### C BC ####[facility] [address] [place], [place] [address]Dr. Benoit Diggs Lymphocytes/100 WBC (Bld) 36.0 % Normal 20.5-60.0 [facility] Comment on above: Performed By: #### C BC ####[facility] [address] [place], [place] [address]Dr. Benoit Diggs MANUAL DIFF REQ NO Normal [facility] Comment on above: Performed By: #### C BC ####[facility] [address] [place], [place] [address]Dr. Benoit Diggs MCH (RBC) [Entitic mass] 25.3 pg Critically low 26.7-34.0 [facility] Comment on above: Performed By: #### C BC ####[facility] [address] [place] [address]Dr. Benoit Diggs MCHC (RBC) [Mass/Vol] 31.3 g/dL Normal 29.9-35.2 [facility] Comment on above: Performed By: #### C BC ####[facility] [address] [place] [address]Dr. Benoit Diggs MCV (RBC) [Entitic vol] 80.9 fL Critically low 81.0-99.0 [facility] Comment on above: Performed By: #### C BC ####[facility] [address] [place] [address]Dr. Benoit Diggs MONO # 0.4 103/ul Normal 0.3-0.8 [facility] Comment on above: Performed By: #### C BC ####[facility] [address] [place], [place] [address]Dr. Benoit Dontae Monocytes/100 WBC (Bld) 4.8 % Normal 1.7-12.0 [facility] Comment on above: Performed By: #### C BC ####[facility] [address] [place], [place] [address]Dr. Benoit Diggs NEUT # 4.4 103/ul Normal 1.4-6.5 [facility] Comment on above: Performed By: #### C BC ####[facility] [address] [place] [address]Dr. Benoit Dontae Neutrophils/100 WBC (Bld) 53.0 % Normal 43.0-75.0 [facility] Comment on above: Performed By: #### C BC ####[facility] [address] [place] [address]Dr. Benoit Diggs Platelet mean volume (Bld) [Entitic vol] 10.8 fL Normal 9.5-13.5 [facility] Comment on above: Performed By: #### C BC ####[facility] [address] [place] [address]Dr. Benoit Diggs PLT 410 103/ul Normal 150-450 [facility] Comment on above: Performed By: #### C BC ####[facility] [address] [place] [address]Dr. Benoit Diggs RBC 4.98 106/ul Normal 4.20-5.40 [facility] Comment on above: Performed By: #### C BC ####[facility] [address] [place] [address]Dr. Benoit Diggs WBC 8.3 103/ul Normal 4.0-11.0 [facility] Comment on above: Performed By: #### C BC ####[facility] [address] [place] [address]Dr. Benoit Diggs GLYCOHEMOGLOBIN A1Con 2022 ADA RECOMMENDATION SEE BELOW Normal [facility] Comment on above: Result Comment: ADA RECOMMENDED LIMIT 4.0 - 6.0 ADA THERAPEUTIC TARGET < 7.0 ACTION SUGGESTED > 7.0 Performed By: #### A 1C ####[facility] [address] [place] [address]Dr. Benoit Diggs Glucose [Mass/Vol] 100 mg/dL Normal [facility] Comment on above: Performed By: #### A 1C ####[facility] [address] [place] [address]Dr. Benoit Diggs HbA1c (Bld) [Mass fraction] 5.1 % Normal 4.5-6.2 [facility] Comment on above: Performed By: #### A 1C ####[facility] [address] [place] [address]Dr. Benoit Diggs LIPID PROFILEon 12-21-2022 CHOL-HDL RATIO NORM SEE BELOW Normal [facility] Comment on above: Result Comment: 3.3 - 4.4 LOW RISK 4.4 - 7.1 AVERAGE RISK 7.1 - 11.0 MODERATE RISK >11.0 HIGH RISK Performed By: #### L IVER, LIPID, BMP, TSH ####[facility] [address] [place] [address]Dr. Benoit Diggs Cholesterol [Mass/Vol] 184 mg/dL Normal <=200 [facility] Comment on above: Performed By: #### L IVER, LIPID, BMP, TSH ####[facility] [address] [place] [address]Dr. Benoit Diggs Cholesterol in HDL [Mass/Vol] 52 mg/dL Normal 40-60 [facility] Comment on above: Performed By: #### L IVER, LIPID, BMP, TSH ####[facility] [address] [place] [address]Dr. Benoit Diggs Cholesterol in LDL [Mass/Vol] 114.8 mg/dL Normal [facility] Comment on above: Performed By: #### L IVER, LIPID, BMP, TSH ####[facility] [address] [place] [address]Dr. Benoit Diggs Cholesterol.total/Ch olesterol in HDL [Mass ratio] 3.5 {ratio} Normal [facility] Comment on above: Performed By: #### L IVER, LIPID, BMP, TSH ####[facility] [address] [place] [address]Dr. Benoit Diggs HDL NORMAL > or = 60 mg/dl - LO W CARDIOVASCULAR RISK <40 mg/dl - HIGH CARDIOVASCULAR RISK Normal [facility] Comment on above: Performed By: #### L IVER, LIPID, BMP, TSH ####[facility] [address] [place] [address]Dr. Benoit Diggs LDL CALC NORMAL SEE BELOW Normal [facility] Comment on above: Result Comment: <100 mg/dl OPTIMAL 100 - 129 mg/dl NEAR OR ABOVE OPTIMAL 130 - 159 mg/dl BORDERLINE HIGH 160 - 189 mg/dl HIGH >190 mg/dl VERY HIGH Performed By: #### L IVER, LIPID, BMP, TSH ####[facility] [address] [place] [address]Dr. Benoit Diggs Triglyceride [Mass/Vol] 86 mg/dL Normal <=150 [facility] Comment on above: Performed By: #### L IVER, LIPID, BMP, TSH ####[facility] [address] [place] [address]Dr. Benoit Diggs VLDL CALC 17.2 mg/dL Normal [facility] Comment on above: Performed By: #### L IVER, LIPID, BMP, TSH ####[facility] [address] [place] [address]Dr. Benoit Diggs LIVER PROFILEon 12-21-2022 Albumin [Mass/Vol] 3.3 g/dL Critically low 3.4-5.0 Th e [facility] Comment on above: Performed By: #### L IVER, LIPID, BMP, TSH ####[facility] [address] [place] [address]Dr. Benoit Diggs Albumin/Globulin [Mass ratio] 0.8 {ratio} Normal [facility] Comment on above: Performed By: #### L IVER, LIPID, BMP, TSH ####[facility] [address] [address]Dr. Benoit Diggs ALP [Catalytic activity/Vol] 110 U/L Normal 46-116 [facility] Comment on above: Performed By: #### L IVER, LIPID, BMP, TSH ####[facility] [address] [place] [address]Dr. Benoit Diggs ALT [Catalytic activity/Vol] 25 U/L Normal 14-59 [facility] Comment on above: Performed By: #### L IVER, LIPID, BMP, TSH ####[facility] [address] [place] [address]Dr. Benoit Diggs AST [Catalytic activity/Vol] 20 U/L Normal 15-37 [facility] Comment on above: Performed By: #### L IVER, LIPID, BMP, TSH ####[facility] [address] [place] [address]Dr. Benoit Diggs BILI, CONJUGATED 0.1 mg/dL Normal 0.0-0.2 [facility] Comment on above: Performed By: #### L IVER, LIPID, BMP, TSH ####[facility] [address] [place] [address]Dr. Benoit Diggs Bilirubin [Mass/Vol] 0.4 mg/dL Normal 0.2-1.0 [facility] Comment on above: Performed By: #### L IVER, LIPID, BMP, TSH ####[facility] [address] [place] [address]DrJael Diggs Globulin (S) [Mass/Vol] 3.9 g/dL Normal [facility] Comment on above: Performed By: #### L IVER, LIPID, BMP, TSH ####[facility] [address] [place] [address]DrJael Diggs Protein [Mass/Vol] 7.2 g/dL Normal 6.4-8.2 [facility] Comment on above: Performed By: #### L IVER, LIPID, BMP, TSH ####[facility] [address] [place] [address]DrJael Diggs PROF CHEM 8 (BAS METB)on Anion gap [Moles/Vol] 13.2 mmol/L Normal [facility] Comment on above: Performed By: #### C BC #### [facility] [address] [address] [address] Benoit Diggs Calcium [Mass/Vol] 9.2 mg/dL Normal 8.5-10.1 [facility] Comment on above: Performed By: #### C BC #### [facility] [address] [address] [address] Benoit Diggs Chloride [Moles/Vol] 108 mmol/L Critically high 98-107 [facility] Comment on above: Performed By: #### C BC #### [facility] [address] [address] [address] Benoit Diggs CO2 [Moles/Vol] 27.9 mmol/L Normal 21.0-32.0 [facility] Comment on above: Performed By: #### C BC #### [facility] [address] [address] [address] Benoit Diggs Creatinine [Mass/Vol] 0.62 mg/dL Normal 0.55-1.02 [facility] Comment on above: Performed By: #### C BC #### [facility] [address] [place] [address] Dr. Benoit Diggs EGFR-AF THAI >60 Normal >=60 [facility] Comment on above: Performed By: #### C BC #### [facility] [address] [place] [address] Dr. Benoit Diggs EGFR-NON AF THAI >60 Normal >=60 [facility] Comment on above: Performed By: #### C BC #### [facility] [address] [address] [address] Benoit Diggs Glucose [Mass/Vol] 92 mg/dL Normal 74-106 [facility] Comment on above: Performed By: #### C BC #### [facility] [address] [place] [address] Dr. Benoit Diggs Potassium [Moles/Vol] 4.1 mmol/L Normal 3.5-5.1 [facility] Comment on above: Performed By: #### C BC #### [facility] [address] [place] [address] Dr. Benoit Diggs Sodium [Moles/Vol] 145 mmol/L Normal 136-145 [facility] Comment on above: Performed By: #### C BC #### [facility] [address] [place] [address] Dr. Benoit Diggs Urea nitrogen [Mass/Vol] 8.0 mg/dL Normal 7.0-18.0 [facility] Comment on above: Performed By: #### C BC #### [facility] [address] [place] [address] Dr. Benoit Diggs Urea nitrogen/Creatinine [Mass ratio] 12.9 mg/mg Normal [facility] Comment on above: Performed By: #### C BC #### [facility] [address] [place] [address] Dr. Benoit Diggs TSHon 12-21-2022 TSH 1.318 uIU/mL Normal 0.358-3.740 [facility] Comment on above: Performed By: #### C BC #### [facility] [address] [place] [address] Dr. Benoit Diggs CBC AUTO DIFFon 12-04-2022 BASO # 0.1 103/ul Normal 0.0-0.1 [facility] Comment on above: Performed By: #### C BC #### [facility] [address] [address] [address] Benoit Diggs Basophils/100 WBC (Bld) 0.7 % Normal 0.2-2.0 [facility] Comment on above: Performed By: #### C BC #### [facility] [address] [address] [address] Benoit Diggs EO # 0.4 103/ul Normal 0.0-0.7 [facility] Comment on above: Performed By: #### C BC #### [facility] [address] [place] [address] Dr. Benoit Diggs Eosinophils/100 WBC (Bld) 3.8 % Normal 0.9-7.0 [facility] Comment on above: Performed By: #### C BC #### [facility] [address] [place] [address] Dr. Benoit Diggs Erythrocyte distribution width (RBC) [Ratio] 15.2 % Critically high 11.0-15.0 [facility] Comment on above: Performed By: #### C BC #### [facility] [address] [place] [address] Dr. Benoit Diggs Hematocrit (Bld) [Volume fraction] 28.7 % Critically low 36.0-48.0 [facility] Comment on above: Performed By: #### C BC #### [facility] [address] [place] [address] Dr. Benoit Diggs Hemoglobin (Bld) [Mass/Vol] 9.1 g/dL Critically low 12.0-16.0 [facility] Comment on above: Performed By: #### C BC #### [facility] [address] [place] [address] Dr. Benoit Diggs IG # 0.05 10e3/ul Critically high 0.00-0.03 [facility] Comment on above: Performed By: #### C BC #### [facility] [address] [place] [address] Dr. Benoit Diggs IG % 0.5 % Normal 0.0-0.5 [facility] Comment on above: Performed By: #### C BC #### [facility] [address] [place] [address] Dr. Benoit Diggs LYMPH # 3.3 103/ul Normal 1.2-3.8 [facility] Comment on above: Performed By: #### C BC #### [facility] [address] [place] [address] Dr. Benoit Diggs Lymphocytes/100 WBC (Bld) 31.8 % Normal 20.5-60.0 [facility] Comment on above: Performed By: #### C BC #### [facility] [address] [place] [address] Dr. Benoit Diggs MANUAL DIFF REQ NO Normal [facility] Comment on above: Performed By: #### C BC #### [facility] [address] [place] [address] Dr. Benoit Diggs MCH (RBC) [Entitic mass] 25.3 pg Critically low 26.7-34.0 [facility] Comment on above: Performed By: #### C BC #### [facility] [address] [place] [address] Dr. Benoit Diggs MCHC (RBC) [Mass/Vol] 31.7 g/dL Normal 29.9-35.2 [facility] Comment on above: Performed By: #### C BC #### [facility] [address] [place] [address] Dr. Benoit Diggs MCV (RBC) [Entitic vol] 79.9 fL Critically low 81.0-99.0 [facility] Comment on above: Performed By: #### C BC #### [facility] [address] [place] [address] Dr. Benoit Diggs MONO # 0.7 103/ul Normal 0.3-0.8 [facility] Comment on above: Performed By: #### C BC #### [facility] [address] [place] [address] Dr. Benoit Diggs Monocytes/100 WBC (Bld) 7.2 % Normal 1.7-12.0 [facility] Comment on above: Performed By: #### C BC #### [facility] [address] [place] [address] Dr. Benoit Diggs NEUT # 5.8 103/ul Normal 1.4-6.5 [facility] Comment on above: Performed By: #### C BC #### [facility] [address] [place] [address] Dr. Benoit Diggs Neutrophils/100 WBC (Bld) 56.0 % Normal 43.0-75.0 [facility] Comment on above: Performed By: #### C BC #### [facility] [address] [place] [address] Dr. Benoit Diggs Platelet mean volume (Bld) [Entitic vol] 10.5 fL Normal 9.5-13.5 [facility] Comment on above: Performed By: #### C BC #### [facility] [address] [place] [address] Dr. Benoit Diggs PLT 152 103/ul Normal 150-450 [facility] Comment on above: Performed By: #### C BC #### [facility] [address] [place] [address] Dr. Benoit Diggs RBC 3.59 106/ul Critically low 4.20-5.[address] [facility] Comment on above: Performed By: #### C BC #### [facility] [address] [place] [address] Dr. Benoit Diggs WBC 10.3 103/ul Normal 4.0-11.0 [facility] Comment on above: Performed By: #### C BC #### [facility] [address] [place] [address] Dr. Benoit Diggs CBC AUTO DIFFon 12-03-2022 BASO # 0.0 103/ul Normal 0.0-0.1 [facility] Comment on above: Performed By: #### C BC #### [facility] [address] [place] [address] Dr. Benoit Diggs Basophils/100 WBC (Bld) 0.4 % Normal 0.2-2.0 [facility] Comment on above: Performed By: #### C BC #### [facility] [address] [place] [address] Dr. Benoit Diggs EO # 0.3 103/ul Normal 0.0-0.7 [facility] Comment on above: Performed By: #### C BC #### [facility] [address] [place] [address] Dr. Benoit Diggs Eosinophils/100 WBC (Bld) 3.1 % Normal 0.9-7.0 [facility] Comment on above: Performed By: #### C BC #### [facility] [address] [place] [address] Dr. Benoit Diggs Erythrocyte distribution width (RBC) [Ratio] 15.5 % Critically high 11.0-15.0 [facility] Comment on above: Performed By: #### C BC #### [facility] [address] [place] [address] Dr. Benoit Diggs Hematocrit (Bld) [Volume fraction] 22.0 % Critically low 36.0-48.0 [facility] Comment on above: Performed By: #### C BC #### [facility] [address] [place] [address] Dr. Benoit Diggs Hemoglobin (Bld) [Mass/Vol] 6.8 g/dL Critically low 12.0-16.0 [facility] Comment on above: Performed By: #### C BC #### [facility] [address] [place] [address] Dr. Benoit Diggs IG # 0.05 10e3/ul Critically high 0.00-0.03 [facility] Comment on above: Performed By: #### C BC #### [facility] [address] [place] [address] Dr. Benoit Diggs IG % 0.5 % Normal 0.0-0.5 [facility] Comment on above: Performed By: #### C BC #### [facility] [address] [place] [address] Dr. Benoit Diggs LYMPH # 2.9 103/ul Normal 1.2-3.8 [facility] Comment on above: Performed By: #### C BC #### [facility] [address] [place] [address] Dr. Benoit Diggs Lymphocytes/100 WBC (Bld) 31.0 % Normal 20.5-60.0 [facility] Comment on above: Performed By: #### C BC #### [facility] [address] [place] [address] Dr. Benoit Diggs MANUAL DIFF REQ NO Normal [facility] Comment on above: Performed By: #### C BC #### [facility] [address] [place] [address] Dr. Benoit Diggs MCH (RBC) [Entitic mass] 24.6 pg Critically low 26.7-34.0 [facility] Comment on above: Performed By: #### C BC #### [facility] [address] [place] [address] Dr. Benoit Diggs MCHC (RBC) [Mass/Vol] 30.9 g/dL Normal 29.9-35.2 [facility] Comment on above: Performed By: #### C BC #### [facility] [address] [place] [address] Dr. Benoit Diggs MCV (RBC) [Entitic vol] 79.7 fL Critically low 81.0-99.0 [facility] Comment on above: Performed By: #### C BC #### [facility] [address] [place] [address] Dr. Benoit Diggs MONO # 0.8 103/ul Normal 0.3-0.8 [facility] Comment on above: Performed By: #### C BC #### [facility] [address] [place] [address] Dr. Benoit Diggs Monocytes/100 WBC (Bld) 7.9 % Normal 1.7-12.0 [facility] Comment on above: Performed By: #### C BC #### [facility] [address] [place] [address] Dr. Benoit Diggs NEUT # 5.4 103/ul Normal 1.4-6.5 [facility] Comment on above: Performed By: #### C BC #### [facility] [address] [address] [address] Benoit Diggs Neutrophils/100 WBC (Bld) 57.1 % Normal 43.0-75.0 [facility] Comment on above: Performed By: #### C BC #### [facility] [address] [address] [address] Benoit Diggs Platelet mean volume (Bld) [Entitic vol] 11.9 fL Normal 9.5-13.5 [facility] Comment on above: Performed By: #### C BC #### [facility] [address] [address] [address] Benoit Diggs PLT 180 103/ul Normal 150-450 [facility] Comment on above: Performed By: #### C BC #### [facility] [address] [address] [address] Benoit Diggs RBC 2.76 106/ul Critically low 4.20-5.40 [facility] Comment on above: Performed By: #### C BC #### [facility] [address] [address] [address] Benoit Diggs WBC 9.5 103/ul Normal 4.0-11.0 [facility] Comment on above: Performed By: #### C BC #### [facility] [address] [address] [address] Benoit Diggs AMNISUREon 12-01-2022 AMNISURE Negative Normal NEGATIVE [facility] Comment on above: Performed By: #### C BC #### [facility] [address] [address] [address] Benoit Diggs CBC AUTO DIFFon 12-01-2022 BASO # 0.1 103/ul Normal 0.0-0.1 [facility] Comment on above: Performed By: #### C BC ####[facility] [address] [place] [address]Dr. Benoit Diggs Basophils/100 WBC (Bld) 0.6 % Normal 0.2-2.0 [facility] Comment on above: Performed By: #### C BC ####[facility] [address] [place] [id number]. Benoit Diggs EO # 0.4 103/ul Normal 0.0-0.7 [facility] Comment on above: Performed By: #### C BC ####[facility] [address] [place] [id number]. Benoit Diggs Eosinophils/100 WBC (Bld) 3.5 % Normal 0.9-7.0 [facility] Comment on above: Performed By: #### C BC ####[facility] [address] [place] [address]Dr. Benoit Diggs Erythrocyte distribution width (RBC) [Ratio] 15.4 % Critically high 11.0-15.0 [facility] Comment on above: Performed By: #### C BC ####[facility] [address] [place], [place] [address]Dr. Benoit Diggs Hematocrit (Bld) [Volume fraction] 26.4 % Critically low 36.0-48.0 [facility] Comment on above: Performed By: #### C BC ####[facility] [address] [place], [place] [address]Dr. Benoit Diggs Hemoglobin (Bld) [Mass/Vol] 8.4 g/dL Critically low 12.0-16.0 [facility] Comment on above: Performed By: #### C BC ####[facility] [address] [place], [place] [address]Dr. Benoit Diggs IG # 0.04 10e3/ul Critically high 0.00-0.03 [facility] Comment on above: Performed By: #### C BC ####[facility] [address] [place], [place] [address]Dr. Benoit Diggs IG % 0.4 % Normal 0.0-0.5 [facility] Comment on above: Performed By: #### C BC ####[facility] [address] [place], [place] [address]Dr. Karyaurora Diggs LYMPH # 2.8 103/ul Normal 1.2-3.8 [facility] Comment on above: Performed By: #### C BC ####[facility] [address] [place] [phone]. Benoit Dontae Lymphocytes/100 WBC (Bld) 26.9 % Normal 20.5-60.0 [facility] Comment on above: Performed By: #### C BC ####[facility] [address] [place] [phone]. Benoit Diggs MANUAL DIFF REQ NO Normal [facility] Comment on above: Performed By: #### C BC ####[facility] [address] [place] [phone]. Karyaurora Diggs MCH (RBC) [Entitic mass] 24.7 pg Critically low 26.7-34.0 [facility] Comment on above: Performed By: #### C BC ####[facility] [address] [place] [phone]. Benoit Diggs MCHC (RBC) [Mass/Vol] 31.8 g/dL Normal 29.9-35.2 [facility] Comment on above: Performed By: #### C BC ####[facility] [address] [place] [phone]. Karyaurora Diggs MCV (RBC) [Entitic vol] 77.6 fL Critically low 81.0-99.0 [facility] Comment on above: Performed By: #### C BC ####[facility] [address] [place] [phone]. Benoit Digsg MONO # 0.7 103/ul Normal 0.3-0.8 [facility] Comment on above: Performed By: #### C BC ####[facility] [address] [place] [phone]. Benoit Diggs Monocytes/100 WBC (Bld) 6.2 % Normal 1.7-12.0 [facility] Comment on above: Performed By: #### C BC ####[facility] [address] [place] [phone]. Benoit Diggs NEUT # 6.5 103/ul Normal 1.4-6.5 [facility] Comment on above: Performed By: #### C BC ####[facility] [address] [place] [phone]. Benoit Diggs Neutrophils/100 WBC (Bld) 62.4 % Normal 43.0-75.0 [facility] Comment on above: Performed By: #### C BC ####[facility] [address] [place] [phone]. Benoit Diggs Platelet mean volume (Bld) [Entitic vol] 11.0 fL Normal 9.5-13.5 [facility] Comment on above: Performed By: #### C BC ####[facility] [address] [phone]. Benoit Diggs PLT 215 103/ul Normal 150-450 [facility] Comment on above: Performed By: #### C BC ####[facility] [address] [place] [address]Dr. Benoit Diggs RBC 3.40 106/ul Critically low 4.20-5.40 [facility] Comment on above: Performed By: #### C BC ####[facility] [address] [phone]. Benoit Diggs WBC 10.4 103/ul Normal 4.0-11.0 [facility] Comment on above: Performed By: #### C BC ####[facility] [address] [phone]. Benoit Diggs DRUG SCREEN RAPID (URINE)on 12-01-2022 AMP Negative Normal NEGATIVE [facility] Comment on above: Performed By: #### C BC #### [facility] [address] [address] [address] Benoit Diggs BAR Negative Normal NEGATIVE [facility] Comment on above: Performed By: #### C BC #### [facility] [address] [address] [address] Benoit Diggs BUP Negative Normal NEGATIVE [facility] Comment on above: Performed By: #### C BC #### [facility] [address] [address] [address] Benoit Diggs BZO Negative Normal NEGATIVE [facility] Comment on above: Performed By: #### C BC #### [facility] [address] [address] [address] Benoit Diggs JOSE MANUEL Negative Normal NEGATIVE [facility] Comment on above: Performed By: #### C BC #### [facility] [address] [place] [address] Dr. Benoit Diggs CUT-OFFS SEE BELOW Normal [facility] Comment on above: Result Comment: AMP [...] ng/mL Performed By: #### C BC #### [facility] [address] [place] [address] Dr. Benoit Diggs DRUG CUT HEADER DRUG CLASS TEST SYSTEM CUT-OFF CONCENTRATIONS ARE FOLLOWS: Normal [facility] Comment on above: Performed By: #### C BC #### [facility] [address] [place] [address] Dr. Benoit Diggs mAMP Negative Normal NEGATIVE [facility] Comment on above: Performed By: #### C BC #### [facility] [address] [place] [address] Dr. Benoit Diggs MTD Negative Normal NEGATIVE [facility] Comment on above: Performed By: #### C BC #### [facility] [address] [place] [address] Dr. Benoit Diggs OPI Negative Normal NEGATIVE [facility] Comment on above: Performed By: #### C BC #### [facility] [address] [place] [address] Dr. Benoit Diggs OXY Negative Normal NEGATIVE [facility] Comment on above: Performed By: #### C BC #### [facility] [address] [place] [address] Dr. Benoit Diggs PCP Negative Normal NEGATIVE [facility] Comment on above: Performed By: #### C BC #### [facility] [address] [place] [address] Dr. Benoit Diggs PPX Negative Normal NEGATIVE [facility] Comment on above: Performed By: #### C BC #### [facility] [address] [place] [address] Dr. Benoit Diggs TCA Negative Normal NEGATIVE [facility] Comment on above: Performed By: #### C BC #### [facility] [address] [place] [address] Dr. Benoit Diggs THC Negative Normal NEGATIVE [facility] Comment on above: Performed By: #### C BC #### [facility] [address] [place] [address] Dr. Benoit Diggs TYPE AND SCREENon 12-01-2022 TYPE AND SCREEN Negative Normal [facility] Comment on above: Performed By: #### T NS #### [facility] [address] [place] [address] Dr. Benoit Diggs UA (CLEAN/CATCH) PHYSICAL THERAPY TEACHER/MICRO I F IND.on 12-01-2022 Bilirubin Ql (U) Negative Normal NEGATIVE [facility] Comment on above: Performed By: #### C BC #### [facility] [address] [place] [address] Dr. Benoit Diggs Clarity (U) CLEAR Normal CLEAR [facility] Comment on above: Performed By: #### C BC #### [facility] [address] [place] [address] Dr. Benoit Diggs Color (U) YELLOW Normal YELLOW [facility] Comment on above: Performed By: #### C BC #### [facility] [address] [place] [address] Dr. Benoit Diggs Glucose Ql (U) Negative Normal NEGATIVE [facility] Comment on above: Performed By: #### C BC #### [facility] [facility] [address] [place] [address] Dr. Benoit Diggs Hemoglobin Ql (U) Negative Normal NEGATIVE [facility] Comment on above: Performed By: #### C BC #### [facility] [address] [place] [address] Dr. Benoit Diggs Ketones Ql (U) Negative Normal NEGATIVE [facility] Comment on above: Performed By: #### C BC #### [facility] [address] [place] [address] Dr. Benoit Diggs LEUKOCYTES Negative Normal NEGATIVE [facility] Comment on above: Performed By: #### C BC #### [facility] [address] [place] [address] Dr. Benoit Diggs Nitrite Ql (U) Negative Normal NEGATIVE [facility] Comment on above: Performed By: #### C BC #### [facility] [address] [place] [address] Dr. Benoit Diggs pH (U) 6.0 [pH] Normal 5-9 [facility] Comment on above: Performed By: #### C BC #### [facility] [address] [place] [address] Dr. Benoit Diggs SPEC GRAVITY 1.010 Normal 1.005-<=1.025 [facility] Comment on above: Performed By: #### C BC #### [facility] [address] [place] [address] Dr. Benoit Diggs UA PROTEIN TRACE Normal NEGATIVE/ TRACE [facility] Comment on above: Performed By: #### C BC #### [facility] [address] [place] [address] Dr. Benoit Diggs UR MICRO IND NOT INDICATED Normal [facility] Comment on above: Performed By: #### C BC #### [facility] [address] [place] [address] Dr. Benoit Diggs Urobilinogen Qn (U) 4 {Nadege'U}/dL Abnormal 0.2 - 1.0 [facility] Comment on above: Performed By: #### C BC #### [facility] [address] [place] [address] Dr. Benoit Diggs CULTURE URINEon 11-29-2022 CULTURE URINE Culture Observations : MODERATE GROWTH OF MIXED GENITAL RIZWAN. NO POTENTIAL PATHOGENS SEEN. Normal [facility] Comment on above: Performed By: #### U RCX #### [facility] [address] [place] [address] Dr. Benoit Diggs UA (CLEAN/CATCH) PHYSICAL THERAPY TEACHER/MICRO I F IND.on 11-29-2022 Bilirubin Ql (U) SMALL Abnormal NEGATIVE [facility] Comment on above: Performed By: #### C BC #### [facility] [address] [place] [address] Dr. Benoit Diggs Clarity (U) CLEAR Normal CLEAR [facility] Comment on above: Performed By: #### C BC #### [facility] [address] [place] [address] Dr. Benoit Diggs Color (U) DK. ORANGE Abnormal YELLOW [facility] Comment on above: Performed By: #### C BC #### [facility] [address] [place] [address] Dr. Benoit Diggs Glucose Ql (U) Negative Normal NEGATIVE [facility] Comment on above: Performed By: #### C BC #### [facility] [address] [place] [address] Dr. Benoit Diggs Hemoglobin Ql (U) Negative Normal NEGATIVE [facility] Comment on above: Performed By: #### C BC #### [facility] [address] [place] [address] Dr. Benoit Diggs Ketones Ql (U) TRACE Abnormal NEGATIVE [facility] Comment on above: Performed By: #### C BC #### [facility] [address] [place] [address] Dr. Benoit Diggs LEUKOCYTES SMALL Abnormal NEGATIVE [facility] Comment on above: Performed By: #### C BC #### [facility] [address] [place] [address] Dr. Benoit Diggs Nitrite Ql (U) Negative Normal NEGATIVE [facility] Comment on above: Performed By: #### C BC #### [facility] [address] [place] [address] Dr. Benoit Diggs pH (U) 5.5 [pH] Normal 5-9 [facility] Comment on above: Performed By: #### C BC #### [facility] [address] [place] [address] Dr. Benoit Diggs SPEC GRAVITY >=1.030 Abnormal 1.005-<=1.[address] [facility] Comment on above: Performed By: #### C BC #### [facility] [address] [place] [address] Dr. Benoit Diggs UA PROTEIN 100 mg/dl Abnormal NEGATIVE/ TRACE [facility] Comment on above: Performed By: #### C BC #### [facility] [address] [place] [address] Dr. Benoit Diggs UR MICRO IND INDICATED Normal [facility] Comment on above: Performed By: #### C BC #### [facility] [address] [place] [address] Dr. Benoit Diggs Urobilinogen Qn (U) 8 {Nadege'U}/dL Abnormal 0.2 - 1.0 [facility] Comment on above: Performed By: #### C BC #### [facility] [address] [place] [address] Dr. Benoit Diggs URINE MICROSCOPIC ONLYon BACTERIA MODERATE Abnormal NONE SEEN [facility] Comment on above: Performed By: #### C BC #### [facility] [address] [place] [address] Dr. Benoit Diggs Bacteria identified Cx Nom (U) INDICATED Normal [facility] Comment on above: Performed By: #### C BC #### [facility] [address] [place] [address] Dr. Benoit Diggs CAST NONE SEEN Normal NONE SEEN [facility] Comment on above: Performed By: #### C BC #### [facility] [address] [place] [address] Dr. Benoit Diggs Crystals LM Nom (Urine sed) NONE SEEN Normal NONE SEEN [facility] Comment on above: Performed By: #### C BC #### [facility] [address] [place] [address] Dr. Benoit Diggs Epithelial cells LM Ql (Urine sed) MANY Abnormal NONE SEEN /RARE [facility] Comment on above: Performed By: #### C BC #### [facility] [address] [place] [address] Dr. Benoit Diggs MUCOUS SMALL Abnormal NONE SEEN [facility] Comment on above: Performed By: #### C BC #### [facility] [address] [place] [address] Dr. Benoit Diggs RBC 5-10 Abnormal 0-2 [facility] Comment on above: Performed By: #### C BC #### [facility] [address] [place] [address] Dr. Benoit Diggs WBC 20-50 Abnormal NONE SEEN [facility] Comment on above: Performed By: #### C BC #### [facility] [address] [place] [address] Dr. Benoit Diggs GROUP B STREP CULTUREon 10-22 S. agalactiae Ag Ql (Unsp spec) Culture Observations: NEGATIVE FOR GROUP B STREPTOCOCCUS. Normal [facility] Comment on above: Performed By: #### G BSCX #### [facility] [address] [place] [address] Dr. Benoit Diggs CBC AUTO DIFFon 09-22-2022 BASO # 0.0 103/ul Normal 0.0-0.1 [facility] Comment on above: Performed By: #### C BC #### [facility] [address] [place] [address] Dr. Benoit Diggs Basophils/100 WBC (Bld) 0.3 % Normal 0.2-2.0 [facility] Comment on above: Performed By: #### C BC #### [facility] [address] [place] [address] Dr. Benoit Diggs EO # 0.1 103/ul Normal 0.0-0.7 [facility] Comment on above: Performed By: #### C BC #### [facility] [address] [place] [address] Dr. Benoit Diggs Eosinophils/100 WBC (Bld) 2.0 % Normal 0.9-7.0 [facility] Comment on above: Performed By: #### C BC #### [facility] [address] [place] [address] Dr. Benoit Diggs Erythrocyte distribution width (RBC) [Ratio] 12.7 % Normal 11.0-15.0 [facility] Comment on above: Performed By: #### C BC #### [facility] [address] [place] [address] Dr. Benoit Diggs Hematocrit (Bld) [Volume fraction] 30.6 % Critically low 36.0-48.0 [facility] Comment on above: Performed By: #### C BC #### [facility] [address] [place] [address] Dr. Benoit Diggs Hemoglobin (Bld) [Mass/Vol] 10.1 g/dL Critically low 12.0-16.0 [facility] Comment on above: Performed By: #### C BC #### [facility] [address] [place] [address] Dr. Benoit Diggs IG # 0.03 10e3/ul Normal 0.00-0.03 [facility] Comment on above: Performed By: #### C BC #### [facility] [address] [place] [address] Dr. Benoit Diggs IG % 0.5 % Normal 0.0-0.5 [facility] Comment on above: Performed By: #### C BC #### [facility] [address] [place] [address] Dr. Benoit Diggs LYMPH # 0.6 103/ul Critically low 1.2-3.8 [facility] Comment on above: Performed By: #### C BC #### [facility] [address] [place] [address] Dr. Benoit Diggs Lymphocytes/100 WBC (Bld) 10.7 % Critically low 20.5-60.0 [facility] Comment on above: Performed By: #### C BC #### [facility] [address] [place] [address] Dr. Benoit Diggs MANUAL DIFF REQ NO Normal [facility] Comment on above: Performed By: #### C BC #### [facility] [address] [address] [address] Benoit Diggs MCH (RBC) [Entitic mass] 28.9 pg Normal 26.7-34.0 [facility] Comment on above: Performed By: #### C BC #### [facility] [address] [place] [address] Dr. Benoit Diggs MCHC (RBC) [Mass/Vol] 33.0 g/dL Normal 29.9-35.2 [facility] Comment on above: Performed By: #### C BC #### [facility] [address] [place] [address] Dr. Benoit Diggs MCV (RBC) [Entitic vol] 87.4 fL Normal 81.0-99.0 [facility] Comment on above: Performed By: #### C BC #### [facility] [address] [place] [address] Dr. Benoit Diggs MONO # 0.6 103/ul Normal 0.3-0.8 [facility] Comment on above: Performed By: #### C BC #### [facility] [address] [place] [address] Dr. Benoit Diggs Monocytes/100 WBC (Bld) 10.9 % Normal 1.7-12.0 [facility] Comment on above: Performed By: #### C BC #### [facility] [address] [place] [address] Dr. Benoit Diggs NEUT # 4.4 103/ul Normal 1.4-6.5 [facility] Comment on above: Performed By: #### C BC #### [facility] [address] [place] [address] Dr. Benoit Diggs Neutrophils/100 WBC (Bld) 75.6 % Critically high 43.0-75.0 [facility] Comment on above: Performed By: #### C BC #### [facility] [address] [place] [address] Dr. Benoit Diggs Platelet mean volume (Bld) [Entitic vol] 10.9 fL Normal 9.5-13.5 [facility] Comment on above: Performed By: #### C BC #### [facility] [address] [place] [address] Dr. Benoit Diggs PLT 191 103/ul Normal 150-450 [facility] Comment on above: Performed By: #### C BC #### [facility] [address] [place] [address] Dr. Benoit Diggs RBC 3.50 106/ul Critically low 4.20-5.40 [facility] Comment on above: Performed By: #### C BC #### [facility] [address] [place] [address] Dr. Benoit Diggs WBC 5.9 103/ul Normal 4.0-11.0 [facility] Comment on above: Performed By: #### C BC #### [facility] [address] [place] [address] Dr. Benoit Diggs CULTURE URINEon 09-22-2022 CULTURE URINE Culture Observations : HEAVY GROWTH OF MIXED GENITAL RIZWAN. NO POTENTIAL PATHOGENS SEEN. Normal [facility] Comment on above: Performed By: #### U RCX #### [facility] [address] [place] [address] Dr. Benoit Diggs ER URINE PROFILEon 2 Bilirubin Ql (U) Negative Normal NEGATIVE [facility] Comment on above: Performed By: #### H IV12 #### [facility] [address] [place] [address] Dr. Benoit Diggs Clarity (U) CLEAR Normal CLEAR [facility] Comment on above: Performed By: #### H IV12 #### [facility] [address] [place] [address] Dr. Benoit Diggs Color (U) YELLOW Normal YELLOW [facility] Comment on above: Performed By: #### H IV12 #### [facility] [address] [place] [address] Dr. Benoit VELA A micrscopic examination will be performed if indicated. Normal [facility] Comment on above: Performed By: #### H IV12 #### [facility] [address] [place] [address] Dr. Benoit Diggs Glucose Ql (U) Negative Normal NEGATIVE [facility] Comment on above: Performed By: #### H IV12 #### [facility] [address] [address] [address] Benoit Diggs Hemoglobin Ql (U) Negative Normal NEGATIVE [facility] Comment on above: Performed By: #### H IV12 #### [facility] [address] [address] [address] Benoit Diggs Ketones Ql (U) 15 mg/dl Abnormal NEGATIVE [facility] Comment on above: Performed By: #### H IV12 #### [facility] [address] [address] [address] Benoit Diggs LEUKOCYTES Negative Normal NEGATIVE [facility] Comment on above: Performed By: #### H IV12 #### [facility] [address] [place] [address] Dr. Benoit Diggs Nitrite Ql (U) Negative Normal NEGATIVE [facility] Comment on above: Performed By: #### H IV12 #### [facility] [address] [address] [address] Benoit Diggs pH (U) 6.5 [pH] Normal 5-9 [facility] Comment on above: Performed By: #### H IV12 #### [facility] [address] [place] [address] Dr. Benoit Diggs SPEC GRAVITY 1.025 Normal 1.005-<=1.[address] [facility] Comment on above: Performed By: #### H IV12 #### [facility] [address] [place] [address] Dr. Benoit Diggs UA PROTEIN TRACE Normal NEGATIVE/ TRACE [facility] Comment on above: Performed By: #### H IV12 #### [facility] [address] [place] [address] Dr. Benoit Diggs UR MICRO IND INDICATED Normal [facility] Comment on above: Performed By: #### H IV12 #### [facility] [address] [address] [address] Benoit Diggs Urobilinogen Qn (U) 1.0 {Nadege'U}/dL Normal 0.2 - 1. 0 [facility] Comment on above: Performed By: #### H IV12 #### [facility] [address] [place] [address] Dr. Benoit Diggs INFLUENZA A AND B AGon 09-22 INFLUANEGH SEE BELOW Normal [facility] Comment on above: Result Comment: Nega tive for Flu A protein angiten. Infection due to Flu A cannot be ruled out. Flu A angiten in the sample may be below the detection limit of the test. Performed By: #### H IV12 #### [facility] [address] [place] [address] Dr. Benoit Diggs INFLUBNEGH SEE BELOW Normal [facility] Comment on above: Result Comment: Nega tive for Flu B protein antigen. Infection due to Flu B cannot be ruled out. Flu B antigen in the sample may be below the detection limit of the test. Performed By: #### H IV12 #### [facility] [address] [place] [address] Dr. Benoit Diggs INFLUENZA A AG Negative Normal NEGATIVE SEE COMMENT [facility] Comment on above: Performed By: #### H IV12 #### [facility] [address] [place] [address] Dr. Benoit Diggs INFLUENZA B AG Negative Normal NEGATIVE SEE COMMENT [facility] Comment on above: Performed By: #### H IV12 #### [facility] [address] [place] [address] Dr. Benoit Diggs INTERNAL CONTROLS Within Normal Limits Normal Wi thin Normal Limits [facility] Comment on above: Performed By: #### H IV12 #### [facility] [address] [place] [address] Dr. Benoit Diggs PROF CHEM 8 (BAS METB)on Anion gap [Moles/Vol] 11.6 mmol/L Normal [facility] Comment on above: Performed By: #### C BC #### [facility] [address] [place] [address] Dr. Benoit Diggs Calcium [Mass/Vol] 8.2 mg/dL Critically low 8.5-10.1 [facility] Comment on above: Performed By: #### C BC #### [facility] [address] [address] [address] Benoit Diggs Chloride [Moles/Vol] 100 mmol/L Normal 98-107 [facility] Comment on above: Performed By: #### C BC #### [facility] [address] [address] [address] Benoit Diggs CO2 [Moles/Vol] 23.9 mmol/L Normal 21.0-32.0 [facility] Comment on above: Performed By: #### C BC #### [facility] [address] [address] [address] Benoit Diggs Creatinine [Mass/Vol] 0.48 mg/dL Critically low 0.55-1.02 [facility] Comment on above: Performed By: #### C BC #### [facility] [address] [place] [address] Dr. Benoit Diggs EGFR-AF THAI >60 Normal >=60 [facility] Comment on above: Performed By: #### C BC #### [facility] [address] [place] [address] Dr. Benoit Diggs EGFR-NON AF THAI >60 Normal >=60 [facility] Comment on above: Performed By: #### C BC #### [facility] [address] [place] [address] Dr. Benoit Diggs Glucose [Mass/Vol] 94 mg/dL Normal 74-106 [facility] Comment on above: Performed By: #### C BC #### [facility] [address] [place] [address] Dr. Benoit Diggs Potassium [Moles/Vol] 3.5 mmol/L Normal 3.5-5.1 [facility] Comment on above: Performed By: #### C BC #### [facility] [address] [place] [address] Dr. Benoit Diggs Sodium [Moles/Vol] 132 mmol/L Critically low 136-145 [facility] Comment on above: Performed By: #### C BC #### [facility] [address] [address] [address] Benoit Diggs Urea nitrogen [Mass/Vol] 6.0 mg/dL Critically low 7.0-18.0 [facility] Comment on above: Performed By: #### C BC #### [facility] [address] [address] [address] Benoit Diggs Urea nitrogen/Creatinine [Mass ratio] 12.5 mg/mg Normal [facility] Comment on above: Performed By: #### C BC #### [facility] [address] [address] [address] Benoit Diggs RESPIRATORY PANEL PLUSon Adenovirus Not detected Normal NOT DETECTED [facility] Comment on above: Performed By: #### R SPLUS ####[facility] [id number] [place], [place] [address]Dr. Benoit Diggs B. Parapertusis Not detected Normal NOT DETECTED [facility] Comment on above: Performed By: #### R SPLUS ####[facility] [address] [place], [place] [address]Dr. Benoit Diggs B. Pertussis Not detected Normal NOT DETECTED [facility] Comment on above: Performed By: #### R SPLUS ####[facility] [address] [place], [place] [address]Dr. Benoit Diggs Chlamydia Pneumoniae Not detected Normal NOT DETECTED [facility] Comment on above: Performed By: #### R SPLUS ####[facility] [address] [place], [place] [address]Dr. Benoit Diggs Coronavirus 229E Not detected Normal NOT DETECTED [facility] Comment on above: Performed By: #### R SPLUS ####[facility] [address] [address]Dr. Benoit Diggs Coronavirus HKU1 Not detected Normal NOT DETECTED [facility] Comment on above: Performed By: #### R SPLUS ####[facility] [address] [address]Dr. Benoit Diggs Coronavirus NL63 Not detected Normal NOT DETECTED [facility] Comment on above: Performed By: #### R SPLUS ####[facility] [address] [address]Dr. Benoit Diggs Coronavirus OC43 Not detected Normal NOT DETECTED [facility] Comment on above: Performed By: #### R SPLUS ####[facility] [address] [place], [place] [address]Dr. Benoit Diggs Influenza A H1 2009 Detected Abnormal NOT DETECTED [facility] Comment on above: Performed By: #### R SPLUS ####[facility] [address] [place], [place] [address]Dr. Benoit Diggs Influenza A H3 Not detected Normal NOT DETECTED [facility] Comment on above: Performed By: #### R SPLUS ####[facility] [address] [place], [place] [address]Dr. Benoit Diggs Influenza B Not detected Normal NOT DETECTED [facility] Comment on above: Performed By: #### R SPLUS ####[facility] [address] [place], [place] [address]Dr. Benoit Diggs Metapneumovirus Not detected Normal NOT DETECTED [facility] Comment on above: Performed By: #### R SPLUS ####[facility] [address] [place], [place] [address]Dr. Benoit Diggs Mycoplas. Pneumoniae Not detected Normal NOT DETECTED [facility] Comment on above: Performed By: #### R SPLUS ####[facility] [address] [place], [place] [address]Dr. Benoit Diggs Parainfluenza 1 Not detected Normal NOT DETECTED [facility] Comment on above: Performed By: #### R SPLUS ####[facility] [address] [place], [place] [address]Dr. Benoit Diggs Parainfluenza 2 Not detected Normal NOT DETECTED [facility] Comment on above: Performed By: #### R SPLUS ####[facility] [address] [place], [place] [address]Dr. Benoit Diggs Parainfluenza 3 Not detected Normal NOT DETECTED [facility] Comment on above: Performed By: #### R SPLUS ####[facility] [address] [address]Dr. Benoit Diggs Parainfluenza 4 Not detected Normal NOT DETECTED [facility] Comment on above: Performed By: #### R SPLUS ####[facility] [address] [address]Dr. Benoit Diggs Rhino/Enterovirus Not detected Normal NOT DETECTED [facility] Comment on above: Performed By: #### R SPLUS ####[facility] [address] [address]Dr. Benoit Diggs RP2 Header 1 RESPIRATORY PANEL: VIRUSES Normal [facility] Comment on above: Performed By: #### R SPLUS ####[facility] [address] [place], [place] [address]Dr. Benoit Diggs RP2 Header 2 RESPIRATORY PANEL: BACTERIA Normal [facility] Comment on above: Performed By: #### R SPLUS ####[facility] [id number] [place], [place] [address]Dr. Benoit Diggs RSV Not detected Normal NOT DETECTED [facility] Comment on above: Performed By: #### R SPLUS ####[facility] [address] [place], [place] [address]Dr. Benoit Diggs SARS-CoV-2 (COVID-19) RNA RANDOLPH+probe Ql (Unsp spec) Not detected Normal NOT DETECTED [facility] Comment on above: Performed By: #### R SPLUS ####[facility] [id number] [place], [place] [address]Dr. Benoit Diggs Result Comment: When diagnostic testing [...] for this test is supported by the [place] of Health and Human Service's declaration [...] used). Performed By: #### H IV12 #### [facility] [address] [place] [address] Dr. Benoit Diggs URINE MICROSCOPIC ONLYon BACTERIA TRACE Abnormal NONE SEEN [facility] Comment on above: Performed By: #### H IV12 #### [facility] [address] [place] [address] Dr. Benoit Diggs Bacteria identified Cx Nom (U) INDICATED Normal [facility] Comment on above: Performed By: #### H IV12 #### [facility] [address] [place] [address] Dr. Benoit Diggs CAST NONE SEEN Normal NONE SEEN [facility] Comment on above: Performed By: #### H IV12 #### [facility] [address] [place] [address] Dr. Benoit Diggs Crystals LM Nom (Urine sed) NONE SEEN Normal NONE SEEN [facility] Comment on above: Performed By: #### H IV12 #### [facility] [address] [place] [address] Dr. Benoit Diggs Epithelial cells LM Ql (Urine sed) MODERATE Abnormal NONE SEEN /RARE [facility] Comment on above: Performed By: #### H IV12 #### [facility] [address] [place] [address] Dr. Benoit Diggs MUCOUS NONE SEEN Normal NONE SEEN [facility] Comment on above: Performed By: #### H IV12 #### [facility] [address] [place] [address] Dr. Benoit Diggs RBC 0-2 Normal 0-2 [facility] Comment on above: Performed By: #### H IV12 #### [facility] [address] [place] [address] Dr. Benoit Diggs WBC 5-10 Abnormal NONE SEEN [facility] Comment on above: Performed By: #### H IV12 #### [facility] [address] [address] [address] Benoit Diggs CBC AUTO DIFFon 09-09-2022 BASO # 0.1 103/ul Normal 0.0-0.1 [facility] Comment on above: Performed By: #### C BC #### [facility] [address] [address] [address] Benoit Diggs Basophils/100 WBC (Bld) 0.5 % Normal 0.2-2.0 [facility] Comment on above: Performed By: #### C BC #### [facility] [address] [address] [address] Benoit Diggs EO # 0.4 103/ul Normal 0.0-0.7 [facility] Comment on above: Performed By: #### C BC #### [facility] [address] [place] [address] Dr. Benoit Diggs Eosinophils/100 WBC (Bld) 4.1 % Normal 0.9-7.0 [facility] Comment on above: Performed By: #### C BC #### [facility] [address] [place] [address] Dr. Benoit Diggs Erythrocyte distribution width (RBC) [Ratio] 12.8 % Normal 11.0-15.0 [facility] Comment on above: Performed By: #### C BC #### [facility] [address] [place] [address] Dr. Benoit Diggs Hematocrit (Bld) [Volume fraction] 31.4 % Critically low 36.0-48.0 [facility] Comment on above: Performed By: #### C BC #### [facility] [address] [place] [address] Dr. Benoit Diggs Hemoglobin (Bld) [Mass/Vol] 10.5 g/dL Critically low 12.0-16.0 [facility] Comment on above: Performed By: #### C BC #### [facility] [address] [place] [address] Dr. Benoit Diggs IG # 0.05 10e3/ul Critically high 0.00-0.03 [facility] Comment on above: Performed By: #### C BC #### [facility] [address] [place] [address] Dr. Benoit Diggs IG % 0.5 % Normal 0.0-0.5 [facility] Comment on above: Performed By: #### C BC #### [facility] [address] [place] [address] Dr. Benoit Diggs LYMPH # 2.2 103/ul Normal 1.2-3.8 [facility] Comment on above: Performed By: #### C BC #### [facility] [address] [place] [address] Dr. Benoit Diggs Lymphocytes/100 WBC (Bld) 21.9 % Normal 20.5-60.0 [facility] Comment on above: Performed By: #### C BC #### [facility] [address] [place] [address] Dr. Benoit Diggs MANUAL DIFF REQ NO Normal [facility] Comment on above: Performed By: #### C BC #### [facility] [address] [place] [address] Dr. Benoit Diggs MCH (RBC) [Entitic mass] 29.7 pg Normal 26.7-34.0 [facility] Comment on above: Performed By: #### C BC #### [facility] [address] [place] [address] Dr. Benoit Diggs MCHC (RBC) [Mass/Vol] 33.4 g/dL Normal 29.9-35.2 [facility] Comment on above: Performed By: #### C BC #### [facility] [address] [place] [address] Dr. Benoit Diggs MCV (RBC) [Entitic vol] 89.0 fL Normal 81.0-99.0 [facility] Comment on above: Performed By: #### C BC #### [facility] [address] [place] [address] Dr. Benoit Diggs MONO # 0.6 103/ul Normal 0.3-0.8 [facility] Comment on above: Performed By: #### C BC #### [facility] [address] [address] [address] Benoit Diggs Monocytes/100 WBC (Bld) 5.7 % Normal 1.7-12.0 [facility] Comment on above: Performed By: #### C BC #### [facility] [address] [address] [address] Benoit Diggs NEUT # 6.8 103/ul Critically high 1.4-6.5 [facility] Comment on above: Performed By: #### C BC #### [facility] [address] [address] [address] Benoit Diggs Neutrophils/100 WBC (Bld) 67.3 % Normal 43.0-75.0 [facility] Comment on above: Performed By: #### C BC #### [facility] [address] [place] [address] Dr. Benoit Diggs Platelet mean volume (Bld) [Entitic vol] 11.0 fL Normal 9.5-13.5 [facility] Comment on above: Performed By: #### C BC #### [facility] [address] [place] [address] Dr. Benoit Diggs PLT 215 103/ul Normal 150-450 [facility] Comment on above: Performed By: #### C BC #### [facility] [address] [place] [address] Dr. Benoit Diggs RBC 3.53 106/ul Critically low 4.20-5.40 [facility] Comment on above: Performed By: #### C BC #### [facility] [address] [place] [address] Dr. Benoit Diggs WBC 10.2 103/ul Normal 4.0-11.0 [facility] Comment on above: Performed By: #### C BC #### [facility] [address] [place] [address] Dr. Benoit Diggs GLUCOSE - 1HRon 09-09-2022 Glucose [Mass/Vol] 116 mg/dL Critically high 74-106 [facility] Comment on above: Performed By: #### G LU1HR ####[facility] [id number] [address]Dr. Benoit Diggs PAP ACOG PANEL 2: 21 to 29on 08-13-2022 . . Normal [facility] Comment on above: Performed By: #### C BC #### [facility] [address] [id number] Bneoit Diggs Age Gdln ACOG Testing 21-29 [facility] Comment on above: Performed By: #### C BC #### [facility] [address] [address] [address] Benoit Diggs DIAGNOSIS: Comment [facility] Comment on above: Result Comment: NEGA TIVE FOR INTRAEPITHELIAL LESION OR MALIGNANCY. Performed By: #### C BC #### [facility] [address] [place] [address] Dr. Benoit Diggs Methodology: Comment [facility] Comment on above: Result Comment: This liquid based ThinPrep(R) pap test was screened with the use of an image guided system. Performed By: #### C BC #### [facility] [address] [place] [address] Dr. Benoit Diggs Note: Comment [facility] Comment on above: Result Comment: The Pap smear is a screening test designed to aid in the detection of premalignant and malignant conditions of the uterine cervix. It is not a diagnostic procedure and should not be used as the sole means of detecting cervical cancer. Both false-positive and false-negative reports do occur. . Performed By: #### C BC #### [facility] [address] [address] [address] Benoit Diggs Performed by: Comment Normal [facility] Comment on above: Result Comment: Cynthia Smith, Forming Press Operator (ASCP) Performed By: #### C BC #### [facility] [address] [place], [place] [address] Dr. Benoit Diggs Reflex Criteria: Comment [facility] Comment on above: Result Comment: The HPV DNA reflex criteria were not met with this specimen result therefore, no HPV testing was performed. . Performed By: #### C BC #### [facility] [address] [address] [address] Benoit Diggs Specimen adequacy: Comment Normal [facility] Comment on above: Result Comment: Sati sfactory for evaluation. No endocervical component is identified. Performed By: #### C BC #### [facility] [address] [place], [place] [address] Dr. Benoit Diggs CHLAMYDIA/GONOCOCCUS RANDOLPH (SW AB/URINE/PAPon 08-08-2022 Chlamydia trachomatis, RANDOLPH Negative Normal Negative [facility] Comment on above: Performed By: #### H IV12 #### [facility] [address] [place], [place] [address] Dr. Benoit Diggs Neisseria gonorrhoeae, RANDOLPH Negative Normal Negative [facility] Comment on above: Performed By: #### H IV12 #### [facility] [address] [address] [address] Benoit Diggs US PREG INCOMPLETE ANATOMYon [...] by: MYLENE SULLIVAN Date: 2022-08-07 20:09 Normal [facility] US PREG ANATOMY SINGLEon US PREG [...] AISHWARYA MAGALLON Date: 2022-07-25 17:11 Normal [facility] AFP MATERNAL FOR SPINA BIFID Aon 07-17-2022 AFP MoM 0.55 Normal [facility] Comment on above: Performed By: #### H IV12 #### [facility] [address] [address] [address] Benoit Diggs AFP Value 20.0 ng/mL Normal [facility] Comment on above: Performed By: #### H IV12 #### [facility] [address] [address] [address] Benoit Diggs AFP, Serum for Spina Bifida Report Normal [facility] Comment on above: Performed By: #### H IV12 #### [facility] [address] [address] [address] Benoit Diggs Comment Comment Normal [facility] Comment on above: Result Comment: Ector Palafox, Ph.D., [facility] Director . References: Available Upon Request. . Multiples Of Median Cutoffs For AFP Elevations Caro 2.5 Black 2.8 IDD 2.0 Twins 4.5 Abbreviation Definitions IDD - Insulin Dep Diabetes OSBR - Open Spina Bifida Risk . For further inquiries contact [facility] at [phone]. . This test was developed and its performance characteristics determined by [employer]. It has not been cleared or approved by the Food and Drug Administration. Performed By: #### H IV12 #### [facility] [address] [address] [address] Benoit Davey Age Collection Date 18.1 weeks Normal [facility] Comment on above: Performed By: #### H IV12 #### [facility] [address] [place] [address] Dr. Benoit Diggs Gestat, Age Based on Ultrasound Normal [facility] Comment on above: Result Comment: 13:1 on 06/06/2022 Recalculations are not recommended when gestational dating by LMP and ultrasound are within 10 days. Performed By: #### H IV12 #### [facility] [address] [place] [address] Dr. Benoit Diggs Insulin Dep Diabetes No Normal [facility] Comment on above: Performed By: #### H IV12 #### [facility] [address] [place] [address] Dr. Benoit Diggs Interpretation Comment Normal [facility] [place] [facility] Comment on above: Result Comment: Inte [...] Customer Services to discuss available options. The [place] [employer] recommends amniocentesis be offered to women age 35 and older. Performed By: #### H IV12 #### [facility] [address] [place], [place] [address] Dr. Benoit Diggs [age] Normal [facility] Comment on above: Performed By: #### H IV12 #### [facility] [address] [place] [address] Dr. Benoit Diggs Multiple Gestation No Normal [facility] Comment on above: Performed By: #### H IV12 #### [facility] [address] [address] [address] Benoit Diggs [place] [address] Normal [facility] [place] [facility] Comment on above: Performed By: #### H IV12 #### [facility] [address] [address] [address] Benoit Diggs PDF . Normal [facility] Comment on above: Performed By: #### H IV12 #### [facility] [address] [address] [address] Benoit Diggs Race Normal [facility] Comment on above: Performed By: #### H IV12 #### [facility] [address] [address] [address] Benoit Diggs Test Results: Negative Normal [facility] Comment on above: Performed By: #### H IV12 #### [facility] [address] [address] [address] Benoit Diggs HEP B SURFACE ANTIGEN SCREEN on 06-07-2022 HBsAg Screen Negative Normal Negative [facility] Comment on above: Performed By: #### H IV12 #### [facility] [address] [address] [address] Benoit Diggs HEPATITIS C VIRUS AB W/ REFL EX QUANTon 06-07-2022 HCV AB <0.1 Normal 0.0-0.9 [facility] Comment on above: Performed By: #### H IV12 #### [facility] [address] [address] [address] Benoit Diggs Interpretation: Comment Normal [facility] Comment on above: Result Comment: Nega tive Not infected with HCV, unless recent infection is suspected or other evidence exists to indicate HCV infection. Performed By: #### H IV12 #### [facility] [address] [place] [address] Dr. Benoit Diggs HIV 1 AND 2 WITH REFLEXon HIV Screen 4th Generation wRfx Non-Reactive Normal Non Reactive [facility] Comment on above: Result Comment: HIV Negative HIV-1/HIV-2 antibodies and HIV-1 p24 antigen were NOT detected. There is no laboratory evidence of HIV infection. Performed By: #### H IV12 #### [facility] [address] [place] [address] Dr. Benoit Diggs RPR QUANTon 06-07-2022 Rapid Plasma Reagin, Quant Non-Reactive Normal NonRea<1:1 [facility] Comment on above: Result Comment: Plea se Note: This test does not meet current guidelines for screening and diagnosis of syphilis. This test is intended for following treatment response in patients being treated for syphilis infection. To screen for syphilis infection, a reflex cascade that includes both RPR and a treponema-specific assay should be utilized, such as Treponema pallidum (Syphilis) Screening Trigg (230502) or Rapid Plasma Reagin (RPR) Test With Reflex to Quantitative RPR and Confirmatory Treponema pallidum Antibodies (490784). Performed By: #### H IV12 #### [facility] [address] [place] [address] Dr. Benoit Diggs RUBELLA AB IGGon 06-07-2022 Rubella Antibodies, IgG 3.22 index Normal Immune >0.99 [facility] Comment on above: Result Comment: Non- immune <0.90 Equivocal 0.90 - 0.99 Immune >0.99 Performed By: #### C BC #### [facility] [address] [place] [address] Dr. Benoit Diggs US PREG <14 WKSon [...] MYLENE SULLIVAN Date: 2022-06-06 22:25 Normal [facility] CBC AUTO DIFFon 06-06-2022 BASO # 0.1 103/ul Normal 0.0-0.1 [facility] Comment on above: Performed By: #### C BC #### [facility] [address] [place] [address] Dr. Benoit Diggs Basophils/100 WBC (Bld) 0.6 % Normal 0.2-2.0 [facility] Comment on above: Performed By: #### C BC #### [facility] [address] [place] [address] Dr. Benoit Diggs EO # 0.3 103/ul Normal 0.0-0.7 [facility] Comment on above: Performed By: #### C BC #### [facility] [address] [place] [address] Dr. Benoit Diggs Eosinophils/100 WBC (Bld) 4.1 % Normal 0.9-7.0 [facility] Comment on above: Performed By: #### C BC #### [facility] [address] [place] [address] Dr. Benoit Diggs Erythrocyte distribution width (RBC) [Ratio] 13.9 % Normal 11.0-15.0 [facility] Comment on above: Performed By: #### C BC #### [facility] [address] [place] [address] Dr. Benoit Diggs Hematocrit (Bld) [Volume fraction] 36.0 % Normal 36.0-48.0 [facility] Comment on above: Performed By: #### C BC #### [facility] [address] [place] [address] Dr. Benoit Diggs Hemoglobin (Bld) [Mass/Vol] 12.0 g/dL Normal 12.0-16.0 [facility] Comment on above: Performed By: #### C BC #### [facility] [address] [place] [address] Dr. Benoit Diggs IG # 0.03 10e3/ul Normal 0.00-0.03 [facility] Comment on above: Performed By: #### C BC #### [facility] [address] [place] [address] Dr. Benoit Diggs IG % 0.4 % Normal 0.0-0.5 [facility] Comment on above: Performed By: #### C BC #### [facility] [address] [place] [address] Dr. Benoit Diggs LYMPH # 2.7 103/ul Normal 1.2-3.8 [facility] Comment on above: Performed By: #### C BC #### [facility] [address] [place] [address] Dr. Benoit Diggs Lymphocytes/100 WBC (Bld) 33.2 % Normal 20.5-60.0 [facility] Comment on above: Performed By: #### C BC #### [facility] [address] [place] [address] Dr. Benoit Diggs MANUAL DIFF REQ NO Normal [facility] Comment on above: Performed By: #### C BC #### [facility] [address] [place] [address] Dr. Benoit Diggs MCH (RBC) [Entitic mass] 29.4 pg Normal 26.7-34.0 [facility] Comment on above: Performed By: #### C BC #### [facility] [address] [place] [address] Dr. Benoit Diggs MCHC (RBC) [Mass/Vol] 33.3 g/dL Normal 29.9-35.2 [facility] Comment on above: Performed By: #### C BC #### [facility] [address] [place] [address] Dr. Benoit Diggs MCV (RBC) [Entitic vol] 88.2 fL Normal 81.0-99.0 [facility] Comment on above: Performed By: #### C BC #### [facility] [address] [place] [address] Dr. Benoit Diggs MONO # 0.5 103/ul Normal 0.3-0.8 [facility] Comment on above: Performed By: #### C BC #### [facility] [address] [place] [address] Dr. Benoit Diggs Monocytes/100 WBC (Bld) 6.6 % Normal 1.7-12.0 [facility] Comment on above: Performed By: #### C BC #### [facility] [address] [address] [address] Benoit Diggs NEUT # 4.4 103/ul Normal 1.4-6.5 [facility] Comment on above: Performed By: #### C BC #### [facility] [address] [address] [address] Benoit Diggs Neutrophils/100 WBC (Bld) 55.1 % Normal 43.0-75.0 [facility] Comment on above: Performed By: #### C BC #### [facility] [address] [address] [address] Benoit Diggs Platelet mean volume (Bld) [Entitic vol] 11.0 fL Normal 9.5-13.5 [facility] Comment on above: Performed By: #### C BC #### [facility] [address] [address] [address] Benoit Diggs PLT 225 103/ul Normal 150-450 [facility] Comment on above: Performed By: #### C BC #### [facility] [address] [place] [address] Dr. Benoit Diggs RBC 4.08 106/ul Critically low 4.20-5.[address] [facility] Comment on above: Performed By: #### C BC #### [facility] [address] [place] [address] Dr. Benoit Diggs WBC 8.1 103/ul Normal 4.0-11.0 [facility] Comment on above: Performed By: #### C BC #### [facility] [address] [address] [address] Benoit Diggs CULTURE URINEon 06-06-2022 CULTURE URINE Culture Observations : MODERATE GROWTH OF MIXED GENITAL RIZWAN. NO POTENTIAL PATHOGENS SEEN. Normal [facility] Comment on above: Performed By: #### U RCX ####[facility] [id number] [address]Dr. Benoit Diggs GLYCOHEMOGLOBIN A1Con 2021 ADA RECOMMENDATION SEE BELOW Normal [facility] Comment on above: Result Comment: ADA RECOMMENDED LIMIT 4.0 - 6.0 ADA THERAPEUTIC TARGET < 7.0 ACTION SUGGESTED > 7.0 Performed By: #### C BC #### [facility] [address] [place] [address] Dr. Benoit Diggs Glucose [Mass/Vol] 105 mg/dL Normal [facility] Comment on above: Performed By: #### C BC #### [facility] [address] [address] [address] Benoit Diggs HbA1c (Bld) [Mass fraction] 5.3 % Normal 4.5-6.2 [facility] Comment on above: Performed By: #### C BC #### [facility] [address] [place] [address] Dr. Benoit Diggs DAVID BOX TEST PT SEND OUTo n 06-06-2022 SENT TO REF LAB 06/06/[address] [facility] Comment on above: Performed By: #### H IV12 #### [facility] [address] [place] [address] Dr. Benoit Diggs TYPE AND SCREENon 06-06-2022 TYPE AND SCREEN Negative Normal [facility] Comment on above: Performed By: #### T NS #### [facility] [address] [place] [address] Dr. Benoit Diggs PREG QUANT HCGon 04-16-2022 HCG QUANT 38554 mIU/mL Normal [facility] Comment on above: Performed By: #### C BC #### [facility] [address] [place] [address] Dr. Benoit Diggs HCG RANGE SEE BELOW Normal [facility] Comment on above: Result Comment: 5-50 0-1 WEEK 40-300 1-2 WEEKS 100-1,000 2-3 WEEKS 500-6,000 3-4 WEEKS 5,000-200,000 1-2 MONTHS 10,000-100,000 2-3 MONTHS 3,000-50,000 2ND TRIMESTER 1,000-50,000 3RD TRIMESTER Performed By: #### C BC #### [facility] [address] [place] [address] Dr. Benoit Diggs Vital Signs Date Time Vital Sign Value Performing Clinician Facility 12-22-2024 10:54-0500 Body mass index (BMI) [Ratio] 52.93 kg/m2 Gia LYNN Work Phone: [facility] 12-22-2024 10:54-0500 Body weight 127.06 kg Gia LYNN Work Phone: [facility] 12-22-2024 10:54-0500 Diastolic blood pressure 90 mm[Hg] Gia LYNN Work Phone: [facility] 12-22-2024 10:54-0500 Systolic blood pressure 116 mm[Hg] Gia LYNN Work Phone: [facility] 12-02-2024 12:56-0500 Body mass index (BMI) [Ratio] 53.09 kg/m2 Zully Anita DO Work Phone: [facility] 12-02-2024 12:56-0500 Body weight 127.46 kg Zully Anita DO Work Phone: [facility] 12-02-2024 12:56-0500 Diastolic blood pressure 84 mm[Hg] Zully Anita DO Work Phone: [facility] 12-02-2024 12:56-0500 Systolic blood pressure 122 mm[Hg] Zully Anita DO Work Phone: [facility] 11-11-2024 08:42-0500 Body mass index (BMI) [Ratio] 53.55 kg/m2 Zully Anita DO Work Phone: [facility] 11-11-2024 08:42-0500 Body weight 128.55 kg Zully Anita DO Work Phone: [facility] 09-07-2024 14:06-0500 Diastolic blood pressure 71 mm[Hg] Manuel Noel MD Work Phone: [facility] 09-07-2024 14:06-0500 Heart rate 77 /min Manuel Noel MD Work Phone: [facility] 09-07-2024 14:06-0500 Respiratory rate 18 /min Manuel Noel MD Work Phone: [facility] 09-07-2024 14:06-0500 SaO2% (BldA) [Mass fraction] 98 % Manuel Noel MD Work Phone: [facility] 09-07-2024 14:06-0500 Systolic blood pressure 112 mm[Hg] Manuel Noel MD Work Phone: [facility] 09-07-2024 12:39-0500 Body height 154.94 cm Manuel Noel MD Work Phone: [facility] 09-07-2024 12:39-0500 Body weight 127 kg Manuel Noel MD Work Phone: [facility] 08-24-2024 09:31-0500 Body height 154.94 cm Manuel Noel MD Work Phone: [facility] 08-24-2024 09:31-0500 Body mass index (BMI) [Ratio] 53.4 kg/m2 Manuel Noel MD Work Phone: [facility] 08-24-2024 09:31-0500 Body weight 128.16 kg Manuel Noel MD Work Phone: [facility] 07-17-2022 02:06-0400 Body weight 100.[address] [facility] Comment on above: Performed By: #### [id number] #### [facility] [address] [place] [address] [address] Benoit Diggs Encounters Encounter Date Encounter Type Care Provider Facility Start: 12-22-2024 End: 12-22-2024 Medhat flowsheet Gia LYNN Work Phone: [facility] Start: 12-22-2024 End: 12-28-2024 Medhat flowssamir LYNN Work Phone: [facility] Start: 12-22-2024 End: 12-28-2024 Clinisync Result Encounter Generic External Data Provider [facility] External Department Unsolicited Start: 12-22-2024 End: 12-22-2024 Patient encounter procedure Gia LYNN Work Phone: [facility] Start: 12-22-2024 End: 12-22-2024 Periodic preventive med est patient 18-39 yrs Gia LYNN Work Phone: [facility] Comment on above: control counse ling (Primary Dx); Well woman exam with routine gynecological exam; Pelvic pain in female Start: 12-22-2024 End: 12-22-2024 ambulatory GIA MAYO Not Available Start: 12-02-2024 End: 12-02-2024 Patient encounter procedure Zully Anita DO Work Phone: [facility] Comment on above: Encounter for remova l of etonogestrel implant Start: 12-02-2024 End: 12-02-2024 ambulatory ZULLY ANITA Not Available Start: 11-30-2024 End: 11-30-2024 ambulatory ZULLY ANITA Not Available Start: 11-11-2024 End: 11-11-2024 Bamboo flowsheet Zully Anita DO Work Phone: [facility] Start: 11-11-2024 End: 11-11-2024 Bamboo flowsheet Zully Anita DO Work Phone: [facility] Start: 11-11-2024 End: 11-11-2024 Clinisync Result Encounter Generic External Data Provider [facility] External Department Unsolicited Start: 11-11-2024 End: 11-11-2024 Office outpatient visit 15 minutes Zully Anita DO Work Phone: [facility] Comment on above: Right ovarian cyst; Nausea; PCOS (polycystic ovarian syndrome) Start: 11-11-2024 End: 11-11-2024 ambulatory ZULLY ANITA Not Available Start: 09-07-2024 Non-patient / Non-visit Manuel pelaez MD Work Phone: [facility] Gastroenterology Work Phone: Start: 09-07-2024 End: 09-07-2024 Admission to same day surgery center Manuel Noel MD Work Phone: [facility] Work Phone: Start: 09-07-2024 End: 09-07-2024 ambulatory Manuel Noel MD Work Phone: [facility] Work Phone: Start: 08-28-2024 End: 08-28-2024 Emergency department patient visit [facility] Start: 08-24-2024 End: 08-24-2024 Patient encounter procedure Manuel Noel MD Work Phone: [facility] Physician [facility] Gastroenterology Work Phone: Start: 07-01-2024 End: 07-01-2024 Clinisync Result Encounter Generic External Data Provider [facility] External [facility] Unsolicited Start: 07-01-2024 End: 07-01-2024 Clinisync Result Encounter Generic External Data Provider [facility] External Department Unsolicited Start: 06-10-2024 Non-patient / Non-visit Manuel pelaez MD Work Phone: [facility] Work Phone: Start: 06-01-2024 End: 06-01-2024 ambulatory MANUEL NOEL Not Available Start: 04-28-2024 End: 04-28-2024 ambulatory MANUEL NOEL Not Available Start: 03-02-2024 Patient encounter procedure Generic Provider [facility] Start: 03-02-2024 End: 03-02-2024 ambulatory MANUEL NOEL Not Available Start: 02-28-2024 End: 02-29-2024 Emergency department patient visit NAV[facility]con[facility] Start: 02-28-2024 End: 02-28-2024 Emergency department patient visit [facility] Start: 12-23-2022 Encounter for genera l adult medical examination without abnormal findings DR MANUEL NOEL [facility] Start: 12-21-2022 End: 12-22-[address] [...] Start: 07-25-2022 End: 07-26-[address] ZULLY HOWARD . Facility:[facility] Start: 07-13-2022 End: 07-13-[address] DESHAWN MARKS . 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 INSERTION/REMOVAL OF CONTRACEPTIVE CAPSULE Zully Howard DO Work Phone: Start: 11-11-2024 ALL CBC WITH AUTO DIFF Zully Howard DO Work Phone: Start: 09-07-2024 Esophagogastroduodenoscopy Manuel Noel MD Work Phone: Start: 07-01-2024 MHPT TRICHOMONAS/WET PREP Generic Senior C Software Engineer al Data Provider Start: 12-03-2022 Transfusion of Nonautologous Red Blood Cells into Peripheral Vein, Percutaneous Approach DR DOCTOR PIERCE Start: 12-02-2022 Delivery of Products of Conception, External Approach DR DOCTOR PIERCE Start: 12-02-2022 Drainage of Amniotic Fluid, Therapeutic from Products of Conception, Via Natural or Artificial Opening DR DOCTOR PIERCE Plan of Treatment Date Care Activity Detail Author Start: 02-02-2025 End: 02-02-2025 Patient encounter procedure 02/02/2025 11:10 AM EDT Office Visit [facility] [address] [place] [phone] Zully Howard, DO [address] [place] [address] [facility] Start: 01-12-2025 End: 01-12-2025 Professional / ancillary services management 01/12/2025 1:00 PM EDT Ancillary Procedure [facility] [address] [place] [phone] [facility] Start: 12-22-2024 End: 12-22-2025 US Pelvis US Pelvis w/ TV Imaging Routine Pelvic pain in female Expected: 12/22/2024, Expires: 12/22/2025 [facility] Comment on above: Expected: 12/22/2024 , Expires: 12/22/2025 Start: 12-22-2024 End: 12-22-2024 Patient encounter procedure [facility] Comment on above: Arrived Start: 12-02-2024 End: 12-02-2024 Patient encounter procedure 12/02/2024 9:30 AM EST Procedure Visit [facility] [address] [place] [phone] Zully Howard, DO [address] [place] [address] [facility] Start: 11-30-2024 End: 11-30-2024 Professional / ancillary services management 11/30/2024 2:00 PM EST Ancillary Procedure [facility] [address] [place] [phone] [facility] Start: 11-11-2024 End: 11-11-2025 DHEA DHEA Lab Routine Right ovarian cyst PCOS (polycystic ovarian syndrome) Expected: 11/11/2024 (Approximate), Expires: 11/11/2025 [facility] Comment on above: Expected: 11/11/2024 (Approximate), Expires: 11/11/2025 Start: 11-11-2024 End: 11-11-2025 US Pelvis US Pelvis w/ TV Imaging Routine Right ovarian cyst PCOS (polycystic ovarian syndrome) Expected: 11/11/2024, Expires: 11/11/2025 [facility] Comment on above: Expected: 11/11/2024 , Expires: 11/11/2025 Start: 11-11-2024 End: 11-11-2024 Patient encounter procedure 11/11/2024 8:40 AM EST Office Visit [facility] [address] [phone] Zully Howard, DO [address] [place] [address] [place] [address] Arrived [facility] Comment on above: Arrived Start: 09-07-2024 [facility] Start: 06-20-2024 Influenza vaccination Influenza Vacc ine (#1) [facility] CBC W Auto Different ial panel - Blood CBC and differential Lab Routine Right ovarian cyst PCOS (polycystic ovarian syndrome) Ordered: 11/11/2024 [facility] Comment on above: Ordered: 11/11/2024 Cytology Cervical or vaginal smear or scraping study Pap Smear Pathology and Cytology Routine Well woman exam with routine gynecological exam Ordered: 12/22/2024 [facility] Work Phone: Comment on above: Ordered: 12/22/2024 DHEA-sulfate DHEA-sulfate Lab Routine Right ovarian cyst PCOS (polycystic ovarian syndrome) Ordered: 11/11/2024 [facility] Comment on above: Ordered: 11/11/2024 Follicle stimulating hormone Follicle stimulating hormone Lab Routine Right ovarian cyst PCOS (polycystic ovarian syndrome) Ordered: 11/11/2024 [facility] Comment on above: Ordered: 11/11/2024 hCG, quantitative, hCG, quantitative, Lab Routine Right ovarian cyst PCOS (polycystic ovarian syndrome) Ordered: 11/11/2024 [facility] Work Phone: Comment on above: Ordered: 11/11/2024 Hemoglobin A1c/Hemoglobin.total in Blood Hemoglobin A1c Lab Routine Right ovarian cyst PCOS (polycystic ovarian syndrome) Ordered: 11/11/2024 [facility] Comment on above: Ordered: 11/11/2024 Luteinizing hormone Luteinizing hormone Lab Routine Right ovarian cyst PCOS (polycystic ovarian syndrome) Ordered: 11/11/2024 [facility] Comment on above: Ordered: 11/11/2024 Patient Education Esophagitis Kn [facility] Work Phone: Prolactin Prolactin Lab Ro utine Right ovarian cyst PCOS (polycystic ovarian syndrome) Ordered: 11/11/2024 [facility] Comment on above: Ordered: 11/11/2024 Removal non-biodegradable drug delivery implant Remove drug implant device Procedures Routine Encounter for removal of etonogestrel implant Ordered: 12/02/2024 [facility] Work Phone: Comment on above: Ordered: 12/02/2024 Thyrotropin [Units/volume] in Serum or Plasma TSH Lab Routine Right ovarian cyst PCOS (polycystic ovarian syndrome) Ordered: 11/11/2024 [facility] Comment on above: Ordered: 11/11/2024 Thyroxine (T4) free [Mass/volume] in Serum or Plasma T4, free Lab Routine Right ovarian cyst PCOS (polycystic ovarian syndrome) Ordered: 11/11/2024 [facility] Comment on above: Ordered: 11/11/2024 Payers Date Payer Category Payer Medicaid [employer] [place] [employer] [id number] 2021-Present [address] [place] [id number] 2021 Medicaid (Managed Care) [employer] [id number] 2000 Unknown [id number] 2.16.840.1.547454.3.579.2. 593 2000 Unknown [id number] 2.16.840.1.099718.3.579.2. 593 2000 Unknown [id number] 2.16.840.1.443775.3.579.2. 593 2000 Unknown [id number] 2.16.840.1.603801.3.579.2. 593 2000 Unknown [id number] 2.16.840.1.104048.3.579.2. 593 2000 Unknown [id number] 2.16.840.1.337565.3.579.2. 593 2000 Unknown [id number] 2.16.840.1.631175.3.579.2. 593 2000 Unknown [id number] 2.16.840.1.771667.3.579.2. 593 2000 Unknown [id number] 2.16.840.1.891063.3.579.2. 593 2000 Unknown [id number] 2.16.840.1.991012.3.579.2. 593 2000 Unknown [id number] 2.16.840.1.877363.3.579.2. 593 2000 Unknown [id number] 2.16.840.1.439504.3.579.2. 593 2000 Unknown [id number] 2.16.840.1.949088.3.579.2. 593 2000 Unknown [id number] 2.16.840.1.735052.3.579.2. 593 2000 Unknown [id number] 2.16.840.1.204043.3.579.2. 1286 2000 Unknown [id number] 2.16.840.1.488893.3.579.2. 1286 2000 Unknown [id number] 2.16.840.1.746399.3.579.2. 1286 2000 Unknown [id number] 2.16.840.1.190684.3.579.2. 1259 2000 Unknown [id number] 2.16.840.1.942366.3.579.2. 1259 2000 Unknown [id number] 2.16.840.1.957383.3.579.2. 1259 2000 Unknown [id number] 2.16.840.1.179434.3.579.2. 1259 2000 Unknown [id number] 2.16.840.1.180837.3.579.2. 1259 2000 Unknown [id number] 2.16.840.1.797827.3.579.2. 1259 2000 Unknown [id number] 2.16.840.1.494640.3.579.2. 1259 1959 Self-pay 1959 Unknown [id number] Unknown [id number] 2.16.840.1.508647.3.579.2. 593 Unknown [id number] 2.16.840.1.556196.3.579.2. 531 Social History Date Type Detail Facility Start: 03-02-2024 End: 09-07-2024 Tobacco smoking status NHIS Never smoked tobacco (finding) [facility] Start: 09-07-2024 Sex Patient sex un known (finding) [facility] Start: 2000 Sex Assigned At Female F [facility] Start: 03-02-2024 Tobacco use and exposure [...] Goals Date Patient Goal Desired Activity /State History of Present illness Narrative 12-22-2024 LEAH Curran - 12/22/2024 11:00 AM EST Note Date & Type Note Facility 12-22-2024 History of Presen t illness Narrative Reason for Appointment: Patient ID: Jes Malik is a 24 y.o. female who presents for Well Women Visit Patient presents today for Annual Exam. MEDICATIONS Current Outpatient Medications Medication Instructions omeprazole (PRILOSEC) 40 mg, Oral, 2 times daily before meals ondansetron (ZOFRAN) 4 mg, Oral, Every 6 hours PRN, Take 1 tablet by mouth every 6 hours as needed for nausea. promethazine (Phenergan) 12.5 MG tablet Oral ALLERGIES Allergies Allergen Reactions Penicillins Unknown PROBLEMS Active Ambulatory Problems Diagnosis Date Noted Major depressive disorder, recurrent episode, mild (HCC) ([facility]) 03/02/2024 Gastroesophageal reflux disease without esophagitis 03/02/2024 Mild intermittent asthma without complication ([facility] 03/02/2024 Allergic rhinitis due to pollen 03/02/2024 Morbid obesity due to excess calories ([facility]) 03/02/2024 Annual physical exam 03/02/2024 Amenorrhea 04/28/2024 Right sided sciatica 06/01/2024 Resolved Ambulatory Problems Diagnosis Date Noted Generalized abdominal pain 03/02/2024 No Additional Past Medical History HISTORY PAST MEDICAL HISTORY SOCIAL HISTORY No past medical history on file. Social History Tobacco Use Smoking status: Never Smokeless tobacco: Never Substance Use Topics Alcohol use: Not on file Drug use: Not on file FAMILY HISTORY No family history on file. SURGICAL HISTORY No past surgical history on file. REVIEW OF SYSTEMS Review of Systems: Review of Systems Constitutional: Negative. HENT: Negative. Eyes: Negative. Respiratory: Negative. Cardiovascular: Negative. Gastrointestinal: Negative. Genitourinary: Negative. Musculoskeletal: Negative. Skin: Negative. Neurological: Negative. All other systems reviewed and are negative. Hematological: Negative. Endocrine: Negative. Allergic/Immunologic: Negative. OBJECTIVE Objective: Physical Exam Constitutional: Appearance: Normal appearance. Genitourinary: Right Adnexa: not tender and no mass present. Left Adnexa: not tender and no mass present. No cervical discharge. Breasts: Breasts are soft. Right: Normal. Left: Normal. HENT: Head: Normocephalic. Nose: Nose normal. Mouth/Throat: Mouth: Mucous membranes are moist. Cardiovascular: Rate and Rhythm: Normal rate. Pulmonary: Effort: Pulmonary effort is normal. Abdominal: General: Bowel sounds are normal. Palpations: Abdomen is soft. Musculoskeletal: General: Normal range of motion. Cervical back: Normal range of motion. Neurological: General: No focal deficit present. Mental Status: She is alert. Skin: General: Skin is warm and dry. Psychiatric: Mood and Affect: Mood normal. Vitals and nursing note reviewed. Exam conducted with a staff radiographer present. Vitals: Estimated body mass index is 52.93 kg/m as calculated from the following: Height as of 06/01/24: 5' 1 . Weight as of this encounter: 280 lb 1.9 oz. BP: 116/90 No LMP recorded. ASSESSMENT & PLAN ICD-10-CM 1. Well woman exam with routine gynecological exam Z01.419 Pap Smear CANCELED: Pap Smear Annual Exam: Patient presents today for an annual exam. Patient states she is doing well and has no complaints. Pap was obtained without difficulty. No orders of the defined types were placed in this encounter. Follow Up: Patient is to return in one year for annual unless needed otherwise. Documented by LEAH Curran on behalf of: LEAH Curran documented in this encounter [facility] History of Present illness Narrative 12-02-2024 Pilar EB Collins - 12/02/2024 1:10 PM EST Note Date & Type Note Facility 12-02-2024 History of Presen t illness Narrative Associated Order(s): Insertion/Removal of Contraceptive Capsule Post-Procedure Diagnose(s): Encounter for removal of etonogestrel implant Reason for Appointment: Patient ID: Jes Malik is a 24 y.o. female who presents for Nexplanon Removal Patient presents today for a Nexplanon Removal appointment. MEDICATIONS Current Outpatient Medications Medication Instructions albuterol HFA 90 mcg/act inhaler 2 puffs, Inhalation, Every 4 hours PRN omeprazole (PRILOSEC) 40 mg, Oral, 2 times daily before meals ondansetron (ZOFRAN) 4 mg, Oral, Every 6 hours PRN, Take 1 tablet by mouth every 6 hours as needed for nausea. promethazine (Phenergan) 12.5 MG tablet Oral ALLERGIES Allergies Allergen Reactions Penicillins Unknown SURGICAL HISTORY No past surgical history on file. REVIEW OF SYSTEMS Review of Systems: Review of Systems All other systems reviewed and are negative. OBJECTIVE Objective: Physical Exam Constitutional: Appearance: Normal appearance. She is well-developed. Cardiovascular: Rate and Rhythm: Normal rate and regular rhythm. Pulmonary: Effort: Pulmonary effort is normal. Breath sounds: Normal breath sounds. Abdominal: General: Bowel sounds are normal. There is no distension. Palpations: Abdomen is soft. Tenderness: There is no abdominal tenderness. There is no guarding or rebound. Musculoskeletal: General: No swelling. Normal range of motion. Right lower leg: No edema. Left lower leg: No edema. Neurological: Mental Status: She is alert and oriented to person, place, and time. Skin: General: Skin is warm and dry. Psychiatric: Mood and Affect: Mood normal. Behavior: Behavior normal. Vitals and nursing note reviewed. Exam conducted with a staff radiographer present. Vitals: Estimated body mass index is 53.09 kg/m as calculated from the following: Height as of 24: 5' 1 . Weight as of this encounter: 281 lb. BP: 122/84 No LMP recorded. ASSESSMENT & PLAN Assessment/Plan Encounter Diagnosis: ICD-10-CM 1. Encounter for removal of etonogestrel implant Z30.46 Remove drug implant device Insertion/Removal of Contraceptive Capsule Date/Time: 12/02/2024 1:19 PM Performed by: Zully Howard DO Authorized by: Zully Howard DO Consent: Consent obtained: Written Consent given by: Patient Patient questions answered: yes Patient agrees, verbalizes understanding, and wants to proceed: yes Educational handouts given: yes Instructions and paperwork completed: yes Indication: Indication: Presence of non-biodegradable drug delivery implant Pre-procedure: Pre-procedure timeout performed: yes Prepped with: alcohol 70% Local anesthetic: Lidocaine without epinephrine The site was cleaned and prepped in a sterile fashion: yes Procedure: Procedure: Removal Small stab incision was made in arm: yes Left/right: Left Preloaded contraceptive capsule trocar was placed subdermally: no Visualization of implant was obtained: yes Contraceptive capsule was inserted and trocar removed: no Site was closed with steri-strips and pressure bandage applied: yes Nexplanon Removal: Patient presents today for removal of Nexplanon. Written consent for procedure was obtained and patient was placed in supine position with left arm flexed at elbow. Skin was cleansed with alcohol/Betadine and 2cc of Lidocaine was injected underneath palpated Nexplanon at distal end. After allowing for sufficient time for numbing agent to take effect, the skin overlying the end of Nexplanon was incised with an 11inch blade scalpel. A 7.5in hemostat was inserted in the incision site to grab device and Nexplanon was released from tissue. Nexplanon implant was removed in its entirety and visualized by myself and patient. The skin was cleansed with alcohol and the incision was covered with gauze. Post-procedure care was reviewed and patient will continue with proposed plan of care. Patient was advised to call office with any questions or concerns. Follow Up: Patient is to return to the office as needed for any routine appointments. Documented by Pilar Collins LPN on behalf of: Zully Howard DO documented in this encounter [facility] History of Present illness Narrative 11-11-2024 Pilar Collins LPN - 11/11/2024 8:40 AM EST Note Date & Type Note Facility 11-11-2024 History of Presen t illness Narrative Reason for Appointment: Patient ID: Jes Malik is a 24 y.o. female who presents for Ovarian Cyst Patient presents today for Consult appointment. MEDICATIONS Current Outpatient Medications Medication Instructions albuterol HFA 90 mcg/act inhaler 2 puffs, Inhalation, Every 4 hours PRN omeprazole (PRILOSEC) 40 mg, Oral, 2 times daily before meals ondansetron (ZOFRAN) 4 mg, Oral, Every 6 hours PRN, Take 1 tablet by mouth every 6 hours as needed for nausea. promethazine (Phenergan) 12.5 MG tablet Oral ALLERGIES Allergies Allergen Reactions Penicillins Unknown PROBLEMS Active Ambulatory Problems Diagnosis Date Noted Major depressive disorder, recurrent episode, mild (HCC) ([facility]) 03/02/2024 Gastroesophageal reflux disease without esophagitis 03/02/2024 Mild intermittent asthma without complication ([facility]) 03/02/2024 Allergic rhinitis due to pollen 03/02/2024 Morbid obesity due to excess calories ([facility]) 03/02/2024 Annual physical exam 03/02/2024 Amenorrhea 04/28/2024 Right sided sciatica 06/01/2024 Resolved Ambulatory Problems Diagnosis Date Noted Generalized abdominal pain 03/02/2024 No Additional Past Medical History HISTORY PAST MEDICAL HISTORY SOCIAL HISTORY History reviewed. No pertinent past medical history. Social History Tobacco Use Smoking status: Never Smokeless tobacco: Never Substance Use Topics Alcohol use: Not on file Drug use: Not on file FAMILY HISTORY No family history on file. SURGICAL HISTORY History reviewed. No pertinent surgical history. REVIEW OF SYSTEMS Review of Systems: Review of Systems Genitourinary: Positive for menstrual problem and pelvic pain. All other systems reviewed and are negative. OBJECTIVE Objective: Physical Exam Constitutional: Appearance: Normal appearance. She is well-developed. Cardiovascular: Rate and Rhythm: Normal rate and regular rhythm. Pulmonary: Effort: Pulmonary effort is normal. Breath sounds: Normal breath sounds. Abdominal: General: Bowel sounds are normal. There is no distension. Palpations: Abdomen is soft. Tenderness: There is no abdominal tenderness. There is no guarding or rebound. Musculoskeletal: General: No swelling. Normal range of motion. Right lower leg: No edema. Left lower leg: No edema. Neurological: Mental Status: She is alert and oriented to person, place, and time. Skin: General: Skin is warm and dry. Psychiatric: Mood and Affect: Mood normal. Behavior: Behavior normal. Vitals and nursing note reviewed. Exam conducted with a staff radiographer present. Vitals: Estimated body mass index is 53.55 kg/m as calculated from the following: Height as of 06/01/24: 5' 1 . Weight as of this encounter: 283 lb 6.4 oz. BP: No LMP recorded. ASSESSMENT & PLAN ICD-10-CM 1. Right ovarian cyst N83.201 ondansetron (Zofran) 4 MG tablet hCG, quantitative, TSH T4, free CBC and differential Follicle stimulating hormone Luteinizing hormone Hemoglobin A1c DHEA-sulfate DHEA US Pelvis w/ TV Prolactin DHEA 2. Nausea R11.0 ondansetron (Zofran) 4 MG tablet 3. PCOS (polycystic ovarian syndrome) E28.2 ondansetron (Zofran) 4 MG tablet hCG, quantitative, TSH T4, free CBC and differential Follicle stimulating hormone Luteinizing hormone Hemoglobin A1c DHEA-sulfate DHEA US Pelvis w/ TV Prolactin DHEA Patient presents today to discuss symptoms with cycles, ovarian cyst and nipple discharge. Patient given orders to have labs drawn (PCOS order set), ultrasound to be obtained and setup 2 appointments 1. Annual appointment 2. Nexplanon Removal. Patient to return to clinic for appointments as discussed. Documented by Pilar Collins LPN on behalf of: Zully Howard DO documented in this encounter [facility] Procedure note 09-07-2024 Note Date & Type Note Facility 09-07-2024 Procedure note [facility] enter Evaluation note 08-24-2024 Note Date & Type Note Facility 08-24-2024 Evaluation note Diagnosis Onset Date Resolution Dyspepsia acute August 24, 2024 9:29am Nausea acute August 24, 2024 9:29am Chronic GERD chronic August 9:29am Constipation chronic August 9:29am [facility] Work Phone: Evaluation note Note Date & Type Note Facility Evaluation note Diagnosis Gastroesophageal reflux disease without esophagitis- Primary Esophageal reflux Amenorrhea Absence of menstruation Generalized abdominal pain Abdominal pain, generalized Morbid (severe) obesity due to excess calories (CMS/HCC) Body mass index (BMI) 50.0-59.9, adult (CMS/HCC) Right sided sciatica- Primary Sciatica Gastroesophageal reflux disease without esophagitis Esophageal reflux Major depressive disorder, recurrent episode, mild (HCC) (CMS/HCC) Major depressive disorder, recurrent episode, mild Morbid obesity due to excess calories (CMS/HCC) Right ovarian cyst Other and unspecified ovarian cyst Nausea Nausea alone PCOS (polycystic ovarian syndrome) Polycystic ovaries documented in this encounter [facility] Healthcare Evaluation note Note Date & Type Note Facility Evaluation note Diagnosis Gastroesophageal reflux disease without esophagitis- Primary Esophageal reflux Amenorrhea Absence of menstruation Generalized abdominal pain Abdominal pain, generalized Morbid (severe) obesity due to excess calories (CMS/HCC) Body mass index (BMI) 50.0-59.9, adult (CMS/HCC) Right sided sciatica- Primary Sciatica Gastroesophageal reflux disease without esophagitis Esophageal reflux Major depressive disorder, recurrent episode, mild (HCC) (CMS/HCC) Major depressive disorder, recurrent episode, mild Morbid obesity due to excess calories (CMS/HCC) Encounter for removal of etonogestrel implant documented in this encounter [facility] Healthcare Evaluation note Note Date & Type Note Facility Evaluation note Diagnosis Gastroesophageal reflux disease without esophagitis- Primary Esophageal reflux Amenorrhea Absence of menstruation Generalized abdominal pain Abdominal pain, generalized Morbid (severe) obesity due to excess calories (CMS/HCC) Body mass index (BMI) 50.0-59.9, adult (CMS/HCC) Right sided sciatica- Primary Sciatica Gastroesophageal reflux disease without esophagitis Esophageal reflux Major depressive disorder, recurrent episode, mild (HCC) (CMS/HCC) Major depressive disorder, recurrent episode, mild Morbid obesity due to excess calories (CMS/HCC) control counseling- Primary Well woman exam with routine gynecological exam Routine gynecological examination Pelvic pain in female Unspecified symptom associated with female genital organs documented in this encounter [facility] Healthcare Summary Purpose Family History Relationship Condition Age [...] and content) DATE CREATED AUTHOR 12/24/2022 [facility] DATE CREATED AUTHOR AUTHOR'S ORGANIZ ATION 08/30/2024 [facility] DATE CREATED AUTHOR AUTHOR'S ORGANIZ ATION 09/15/2024 [facility] DATE CREATED AUTHOR AUTHOR'S ORGANIZ ATION 12/24/2024 [facility] Care Teams (unrecognized sec tion and content) [...] Other Provider Active Start: September 07, 2024 [employer] Relationship Specialty Start Date End Date Manuel Noel MD [address] [place] [address] PCP - [facility] 03/02/24 Fish [employer]arden Relationship Specialty Start Date End Date Manuel Noel MD [address] [place] [address] PCP [facility] 03/02/24 Manuel Noel MD [address] [place] [address] [facility] 07/20/24 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 Relationship Specialty Start Date End Date Manuel Noel MD [address] [place] [address] [facility] 03/02/24 Manuel Noel MD [address] [place] [address] [facility] 07/20/24 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 Relationship Specialty Start Date End Date Manuel Noel MD [address] [place] [address] [facility] 03/02/24 Manuel Noel MD [address] [place] [address] [facility] 07/20/24 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 Relationship Specialty Start Date End Date Manuel Noel MD [address] [place] [address] PCP - [facility] 03/02/24 Manuel Noel MD [address] [place] [address] [facility] 07/20/24 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 Relationship Specialty Start Date End Date Manuel Noel MD [address] [place] [address] [facility] 03/02/24 Manuel Noel MD [address] [place] [address] [facility] 07/20/24 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 Relationship Specialty Start Date End Date Manuel Noel MD [address] [place] [address] [facility] 03/02/24 Manuel Noel MD [address] [place] [address] [facility] 07/20/24 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 [facility], [facility]. provides no warranty or guarantee of the accuracy or completeness of information in this document.
[2025-01-02 23:37] VITALS: BP 138/84; PULSE 65; TEMP 36.6; O2SAT 100; BMI 54.6
[2025-01-02 23:48] VITALS: O2SAT 98
--- NOTE | 2025-01-03 00:14 | ED_ITS ---
HPI - Abdominal Pain General Chief Complaint: Abdominal Pain Stated Complaint: ABDOMINAL PAIN Time Seen by Provider: 01/03/25 00:10 Source: patient Mode of arrival: walk-in Limitations: no limitations History of Present Illness HPI narrative: patient complains of epigastric pain for 2 days and nausea. has not vomited. No diarrhea or fever. no respiratory symptoms Related Data Home Medications ?Medication ?Instructions ?Recorded ?Confirmed omeprazole 40 mg capsule,delayed 40 mg PO DAILY 06/09/24 07/01/24 release promethazine 12.5 mg tablet 12.5 mg PO TID PRN nausea and 06/09/24 07/01/24 vomiting Allergies Allergy/AdvReac Type Severity Reaction Status Date / Time Penicillins Allergy Unknown Rash Verified 01/02/25 23:37 Review of Systems ROS Status of ROS 10 or more systems reviewed and unremark able except as noted in history and below PFSH PFSH Social History Little interest or pleasure in doing things: not at all Feeling down, depressed, or hopeless: not at all Exam Constitutional Vital Signs, click to edit/add: Last Vital Signs Temp 97.8 F 01/02/25 23:37 Pulse 65 01/02/25 23:37 Resp 16 01/02/25 23:37 BP 138/84 01/02/25 23:37 Pulse Ox 98 01/02/25 23:48 O2 Del Method Room Air 01/02/25 23:48 Common normals: no apparent distress, average body habitus, oriented x3, no limitations, healthy appearing, alert and well nourished [facility] Common normals: normocephalic and head/scalp atraumatic Eye Common normals: EOMs intact bilaterally and conjunctivae normal Respiratory Common normals: normal respiratory effort, no retractions, no use of accessory muscles and clear to auscultation bilaterally Cardio Common normals: regular rate, regular rhythm, S1 normal heart sound and S2 normal heart sound GI Common normals: Normal to inspection, nondistended, normoactive bowel sounds present, soft to palpation and non-tender Extremity Common normals: normal to inspection and full ROM Neuro Common normals: oriented x3, CN's II-XII intact bilaterally, moves all extremities and no focal motor deficits Psych Appearance: grossly normal Course Vital Signs Vital signs: Vital Signs Temperature 97.8 F 01/02/25 23:37 Pulse Rate 65 01/02/25 23:37 Respiratory Rate 16 01/02/25 23:37 Blood Pressure 138/84 01/02/25 23:37 Pulse Oximetry 100 01/02/25 23:37 Temperature 97.8 F 01/02/25 23:37 Pulse Rate 65 01/02/25 23:37 Respiratory Rate 16 01/02/25 23:37 Blood Pressure 138/84 01/02/25 23:37 Pulse Oximetry 98 01/02/25 23:48 Oxygen Delivery Method Room Air 01/02/25 23:48 MDM - Abdominal Pain MDM Narrative Medical decision making narrative: patient presents complaining of abdominal pain and nausea for a couple of days. No vomiting, diarrhea or fever. exam is normal. Labs unremarkable except UA sp. gravity 1030 patient feeling better after zofran. Advised to increase fluid intake at home. P ossible viral infection to account for her symptoms. Discharged with zofran and advised to follow up with her doctor for recheck Lab Data Labs: Lab Results 01/03/25 01/03/25 Range/Units 00:30 00:33 WBC 10.4 (4.0-11.0) 10^3/uL RBC 4.35 (4.20-5.40) 10^6/uL Hgb 12.4 (12.0-16.0) g/dL Hct 38.2 (36.0-48.0) % MCV 87.8 (81.0-99.0) fL MCH 28.5 (26.7-34.0) pg MCHC 32.5 (29.9-35.2) g/dL RDW 13.5 (11.0-15.0) % Plt Count 254 (150-450) 10^3/uL MPV 10.6 (9.5-13.5) fL Neut % (Auto) 62.1 (43.0-75.0) % Lymph % (Auto) 29.8 (20.5-60.0) % Desha % (Auto) 4.9 (1.7-12.0) % Eos % (Auto) 2.5 (0.9-7.0) % Baso % (Auto) 0.5 (0.2-2.0) % Neut # (Auto) 6.5 (1.4-6.5) 10^3/uL Lymph # (Auto) 3.1 (1.2-3.8) 10^3/uL Desha # (Auto) 0.5 (0.3-0.8) 10^3/uL Eos # (Auto) 0.3 (0.0-0.7) 10^3/uL Baso # (Auto) 0.1 (0.0-0.1) 10^3/uL Abs Immat Gran (auto) 0.02 (0.00-0.03) 10^3/uL Imm/Tot Granulo (auto) 0.2 (0.0-0.5) % Sodium 138 (136-145) mmol/L Potassium 3.6 (3.5-5.1) mmol/L Chloride 103 (98-107) mmol/L Carbon Dioxide 27.7 (21.0-32.0) mmol/L Anion Gap 10.9 BUN 14.0 (7.0-18.0) mg/dL Creatinine 0.84 (0.55-1.02) mg/dL Est GFR ( Amer) >60 (>=60 mL/min/1.73m^2) Est GFR (Non-Af Amer) >60 (>=60 mL/min/1.73m^2) BUN/Creatinine Ratio 16.7 Glucose 93 (74-106) mg/dL Calcium 9.1 (8.5-10.1) mg/dL Total Bilirubin 0.3 (0.2-1.0) mg/dL AST 13 L (15-37) U/L ALT 29 (14-59) U/L Alkaline Phosphatase 91 (46-116) U/L Total Protein 7.8 (6.4-8.2) g/dL Albumin 3.2 L (3.4-5.0) g/dL Globulin 4.6 g/dL Albumin/Globulin Ratio 0.7 Urine Color Yellow (YELLOW) Urine Clarity Clear (CLEAR) Urine pH 6.0 (5.0-9.0) Ur Specific [place] >=1.030 A (1.005-1.025) Urine Protein 100 A (NEG/TRACE) mg/dL Urine Glucose (UA) Negative (NEGATIVE) mg/dL Urine Ketones Trace A (NEGATIVE) mg/dL Urine Occult Blood Negative (NEGATIVE) Urine Nitrite Negative (NEGATIVE) Urine Bilirubin Negative (NEGATIVE) Urine Urobilinogen 1.0 (0.2-1.0) EU/dL Ur Leukocyte Esterase Negative (NEGATIVE) Urine RBC 0-2 (0-2) #/HPF Urine WBC 0-2 A (NONE SEEN) #/HPF Ur Squamous Epith Cells Few A (NONE/RARE) #/LPF Urine Crystals None seen (None Seen) #/HPF Urine Bacteria Small A (NONE SEEN) #/HPF Urine Casts None seen (NONE SEEN) #/LPF Urine Mucus None seen (NONE SEEN) Ur Culture Indicated? Yes[facility] Urine HCG, Qual Negative (NEGATIVE) Discharge Plan Discharge Chief Complaint: Abdominal Pain Clinical Impression: Abdominal pain, Nausea Patient Disposition: Home, Self-Care Prescriptions / Home Meds: No Action omeprazole 40 mg capsule,delayed release(DR/EC) 40 mg PO DAILY promethazine 12.5 mg tablet 12.5 mg PO TID PRN (Reason: nausea and vomiting) Rx Instructions: 3 doses during day; last dose no later than 4 hr before bedtime Print Language: Sierra Leonean Instructions: Acute Nausea and Vomiting (ED), Abdominal Pain (ED) Referrals: Manuel Schwartz MD [Primary Care Provider] - 1 week
[2025-01-03] MEDS: ONDANSETRON PF 4 MG/2 ML VIAL IV (00:38)
[2025-01-03 00:46] LABS: Basophils Absolute Auto 0.1 10^3/uL (0.0-0.1); Basophils Percent Auto 0.5 % (0.2-2.0); Eosinophils Absolute Auto 0.3 10^3/uL (0.0-0.7); Eosinophils Percent Auto 2.5 % (0.9-7.0); Hematocrit 38.2 % (36.0-48.0); Hemoglobin 12.4 g/dL (12.0-16.0); Immature Granulocytes Abs Auto 0.02 10^3/uL (0.00-0.03); Immature Granulocytes Pct Auto 0.2 % (0.0-0.5); Lymphocytes Absolute Auto 3.1 10^3/uL (1.2-3.8); Lymphocytes Percent Auto 29.8 % (20.5-60.0); Mean Corpuscular HGB Conc 32.5 g/dL (29.9-35.2); Mean Corpuscular Hemoglobin 28.5 pg (26.7-34.0); Mean Corpuscular Volume 87.8 fL (81.0-99.0); Mean Platelet Volume 10.6 fL (9.5-13.5); Monocytes Absolute Auto 0.5 10^3/uL (0.3-0.8); Monocytes Percent Auto 4.9 % (1.7-12.0); Neutrophils Absolute Auto 6.5 10^3/uL (1.4-6.5); Neutrophils Percent Auto 62.1 % (43.0-75.0); Platelet Count 254 10^3/uL (150-450); Red Blood Count 4.35 10^6/uL (4.20-5.40); Red Cell Distribution Width 13.5 % (11.0-15.0); White Blood Count 10.4 10^3/uL (4.0-11.0)
[2025-01-03 00:50] LABS: HCG Qualitative Urine* NEGATIVE (NEGATIVE); Internal Control Within Normal Limits
[2025-01-03 00:57] LABS: Bilirubin Urine NEGATIVE (NEGATIVE); Blood Urine NEGATIVE (NEGATIVE); Clarity Urine CLEAR (CLEAR); Color Urine YELLOW (YELLOW); Glucose Urine UA NEGATIVE (NEGATIVE); Ketones Urine TRACE mg/dL (NEGATIVE); Leukocyte Esterase Urine NEGATIVE (NEGATIVE); Nitrite Urine NEGATIVE (NEGATIVE); Protein Urine 100 mg/dL (NEG/TRACE); Specific Gravity Urine >=1.030 (1.005-1.025)
[2025-01-03 01:03] LABS: Alanine Aminotransferase 29 U/L (14-59); Albumin Globulin Ratio 0.7; Albumin Level 3.2 g/dL (3.4-5.0); Alkaline Phosphatase 91 U/L (46-116); Anion Gap 10.9; Aspartate Amino Transferase 13 U/L (15-37); BUN Creatinine Ratio 16.7; Bilirubin Total 0.3 mg/dL (0.2-1.0); Calcium 9.1 mg/dL (8.5-10.1); Carbon Dioxide 27.7 mmol/L (21.0-32.0); Chloride 103 mmol/L (98-107); Estimated GFR (African America >60 (>=60 mL/min/1.73m^2); Estimated GFR (Non-African Ame >60 (>=60 mL/min/1.73m^2); Globulin 4.6 g/dL; Glucose 93 mg/dL (74-106); Potassium 3.6 mmol/L (3.5-5.1); Sodium 138 mmol/L (136-145); Total Protein 7.8 g/dL (6.4-8.2)
[2025-01-03 01:03] LABS: Bacteria Urine SMALL #/HPF (NONE SEEN); Mucus Urine NONE SEEN (NONE SEEN); RBC Urine 0-2 #/HPF (0-2); Squamous Epithelial Cell Urine FEW #/LPF (NONE/RARE); WBC Urine 0-2 #/HPF (NONE SEEN)
[2025-01-03 01:04] LABS: Cast Seen? NONE SEEN #/LPF (NONE SEEN); Crystals Seen? None Seen #/HPF (None Seen); Urine Culture Indicated YES-FRMC
== END 2025-01-03 01:34 | disposition home or self-care (01) ==
PROVIDERS: Emergency Provider Internal Medicine; PCP Family Medicine
DX: R10.13 Epigastric pain (principal); R11.0 Nausea; Z90.49 Acquired absence of other specified parts of digestive tract
CPT/HCPCS: 36415; 74019; 80053; 81001; 84703; 85025; 87086; 96374; 99285; J2405

== ENCOUNTER 2025-01-17 09:06 | Outpatient (REF) | payer OTHER, SELFPAY | END 2025-01-17 09:07 | disposition home or self-care (01) | LOC: LAB 09:06 | PROVIDERS: PCP Family Medicine; Visit Provider Obstetrics & Gynecology | DX: R87.612 Low grade squamous intraepithelial lesion on cytologic smear of cervix (LGSIL) (principal) | CPT/HCPCS: 88305 ==

== ENCOUNTER 2025-02-09 09:17 | Outpatient (OUT) | payer OTHER, SELFPAY ==
[2025-02-09 10:09] LABS: Thyroid Stimulating Hormone 5.935 uIU/mL (0.358-3.740)
[2025-02-09 10:54] LABS: Free T4 1.13 ng/dL (0.76-1.46)
[2025-02-09 11:02] LABS: HCG Quantitative <1 mIU/mL
== END 2025-02-09 09:18 | disposition home or self-care (01) ==
LOC: LAB 09:18
PROVIDERS: PCP Family Medicine; Visit Provider Obstetrics & Gynecology
DX: R79.89 Other specified abnormal findings of blood chemistry (principal); N92.6 Irregular menstruation, unspecified
CPT/HCPCS: 36415; 84439; 84443; 84702

== ENCOUNTER 2025-03-19 13:47 | Emergency (ER) | payer OTHER, SELFPAY ==
[2025-03-19 13:50] VITALS: BP 147/97; PULSE 83; TEMP 36.9; O2SAT 98; BMI 52.9
--- OUTSIDE RECORDS SUMMARY | 2025-03-19 13:52 | XMS_ITS | Encounter Summary ---
Author Organization [facility] Address [address] [place] [address] Care Team Providers Care Technical Laboratory Asst Name Role Phone Manuel Schwartz MD Primary Care Provider [phone] Manuel Schwartz MD Unavailable Encounter Details Date Type Department Care Team (Late st Contact Info) Description 01/17/2025 Abstract [facility] [address] [place] [address] Jefferson Howard, DO [address] [place], [place] [id number] Social History Tobacco Use Types Packs/Day Years Used Date Smoking Tobacco: Never Smokeless Tobacco: Never Social Connection and Isolation Panel [NHANES] A nswer Date Recorded In a typical week, how many times do you talk on the phone with family, friends, or neighbors? Twice a week 03/02/2024 How often do you get together with friends or re latives? Twice a week 03/02/2024 How often do you attend synagogue or oriental orthodox serv ices? Never 03/02/2024 Active Member of Clubs or Organizations Not on f ile 03/02/2024 Attends Club or Organization Meetings Not on gustavo e 03/02/2024 Marital Status Not on file 03/02/2024 AUDIT-C Answer Date Recorded Q1: How often do you have a drink containing alc ohol? 2-4 times a month 03/02/2024 Q2: How many drinks containi ng alcohol do you have on a typical day when you are drinking? 1 or 2 03/02/2024 Q3: How often do you have si x or more drinks on one occasion? Never 03/02/2024 Exercise Vital Sign Answer Date Recorde d On average, how many days pe r week do you engage in moderate to strenuous exercise (like a brisk walk)? Patient declined On average, how many minutes do you engage in exercise at this level? Patient declined 03/02/2024 Housing Stability Vital Sign Answer Jesus e Recorded In the last 12 months, was t here a time when you were not able to pay the mortgage or rent on time? No 03/02/2024 In the last 12 months, how many places have you lived? 1 03/02/2024 In the last 12 months, was t here a time when you did not have a steady place to sleep or slept in a half-way (including now)? No 03/02/2024 Comments Unknown Sex and Gender Information Value Date Recorded Sex Assigned at Not on file Legal Sex Female 8:14 PM EDT Gender Identity Not on file Sexual Orientation Not on file documented as of this encounter Plan of Treatment Upcoming Encounters Date Type Department Care Team (Late st Contact Info) Description 08/02/2025 1:40 PM EDT Procedure Visit [facility] [address] [place] [address] Jefferson Howard, [address] [place], [place] [id number] documented as of this encounter Visit Diagnoses Not on filedocumented in this encounter Care Teams Technical Laboratory Asst Relationship Specialty Start Date End Date Manuel Schwartz MD [address] [place] [address] PCP - General Family Medicine 03/02/24 Manuel Schwartz MD [address] [place] [address] PCP - [facility] 07/20/24 documented as of this encounter
--- OUTSIDE RECORDS SUMMARY | 2025-03-19 13:52 | XMS_ITS | Clinical Summary ---
Author Organization [facility] Address [address] [place] [address] Care Team Providers Care Offset Press Assistant Name Role Phone Manuel Schwartz MD Primary Care Provider [phone] Manuel Schwartz MD Unavailable Allergies Active Allergy Reactions Criticality Noted Date Comments Penicillins Unknown 2000 Medications promethazine (Phenergan) 12.5 MG tablet Take by mouth Active omeprazole (PriLOSEC) [address] Morales ns:Gastroesophag eal reflux disease, unspecified whether esophagitis present Take 1 capsule (40 mg) by mouth in the morning and 1 capsule (40 mg) in the evening. Take before meals. 60 capsule 5 4 Active ondansetron (Zofran) 4 MG tabletIndication s:Right ovarian cyst,Nausea,PCOS (polycystic ovarian syndrome) Take 1 tablet (4 mg) by mouth every 6 (six) hours if needed for nausea or vomiting for up to 30 doses Take 1 tablet by mouth every 6 hours as needed for nausea. 30 tablet 3 5 Active norgestimate-eth inyl estradiol (Sprintec 28) 0.25-35 MG-MCG tabletIndication s: control counseling Take 1 tablet by mouth Daily for 28 days Take 1 tablet by mouth daily 28 tablet 11 5 Active Active Problems Problem Noted Date Diagnosed Date Right sided sciatica 06/01/2024 Assessment & Plan (06/01/2024 1:53 PM EDT): Recent pain and treat with prednisone. Use flexeril PRN. Check x-ray and start PT. Amenorrhea 04/28/2024 Assessment & Plan (04/28/2024 2:19 PM EDT): Concerned of possible and check labs. Major depressive disorder, recurrent episode, mi ld (HCC) 03/02/2024 Assessment & Plan (06/01/2024 1:53 PM EDT): Mild symptoms and letter for emotional support animal to patient. Gastroesophageal reflux disease without esophagi tis 03/02/2024 Assessment & Plan (06/01/2024 1:53 PM EDT): Symptoms controlled with omeprazole and continue. Assessment & Plan (04/28/2024 2:19 PM EDT): Symptoms controlled with omeprazole and continue. Mild intermittent asthma without complication Allergic rhinitis due to pollen 03/02/2024 Morbid obesity due to excess calories 03/02/2024 Assessment & Plan (06/01/2024 1:54 PM EDT): Weight loss indicated Annual physical exam 03/02/2024 Resolved Problems Problem Noted Date Diagnosed Date Resolved Date Generalized abdominal pain 03/02/2024 0 06/01/2024 Assessment & Plan (04/28/2024 2:19 PM EDT): Pain for almost 2 months and unclear etiology. Frequent epigastric pain possibly related to gastritis. Continue omeprazole. C/o abdominal cramping and diarrhea possibly related to IBS. Refer to GI for evaluation and possible endoscopy. Assessment & Plan (03/02/2024 1:49 PM EDT): Pain for almost 2 months and unclear etiology. Frequent epigastric pain possibly related to gastritis. Increase omeprazole. C/o abdominal cramping and diarrhea possibly related to IBS. Start levsin PRN. Refer to GI for evaluation and possible endoscopy. Encounters Date Type Department Care Team Description 02/09/2025 Orders Only [facility] [address] [place] [address] Manuel Schwartz MD 02/09/2025 Results Follow-Up [facility] [address] [place] [address] Ranjana Malave LPN 02/09/2025 Clinisync Result Encounter [facility] External Department Unsolicited Provider, Generic External Data 02/09/2025 Telephone [facility] [address] [place] [address] [place] [address] Ranjana Malave LPN 02/02/2025 11:10 AM EDT Office Visit [facility] [address] [place] [address] Jefferson Howard, Encounter to discuss test results; Elevated TSH 02/02/2025 Bamboo flowsheet [facility] [address] [place] [address] Jefferson Howard, 01/21/2025 Abstract [facility] [address] [place] [address] Jefferson Howard, 01/17/2025 1:30 PM EDT Procedure Visit [facility] [address] [place] [address] Jefferson Howard, DO LGSIL of cervix of undetermined significance 01/17/2025 Abstract [facility] [address] [place] [address] Jefferson Howard, 01/12/2025 1:00 PM EDT Ancillary Procedure [facility] [address] [place] [address] Pelvic pain in female 01/06/20[address] [facility] [address] [place] [address] Janneth Paul MA 01/04/2025 Telephone [facility] [address] [place] [address] [place] [address] Janneth Paul MA Error (VOID this visit) 01/04/2025 Orders Only [facility] [address] [place] [address] Janneth aPul MA 01/04/2025 Patient Outreach [facility] [address] [place] [address] Susan Boucher LSW 01/03/2025 Clinisync Result Encounter [facility] External Department Unsolicited Provider, Generic External Data 12/22/2024 11:00 AM EST Office Visit [facility] [address] [place] [address] Gia Agustin PA control counseling (Primary Dx); Well woman exam with routine gynecological exam; Pelvic pain in female 12/22/2024 Clinisync Result Encounter [facility] External Department Unsolicited Provider, Generic External Data 12/22/2024 Bamboo flowsheet [facility] [address] [place] [address] Gia Agustin PA from Last 3 Months Social History Tobacco Use Types Packs/Day Years Used Date Smoking Tobacco: Never Smokeless Tobacco: Never Tobacco Cessation:Counseling Given: Not Answered Social Connection and Isolation Panel [NHANES] A nswer Date Recorded In a typical week, how many times do you talk on the phone with family, friends, or neighbors? Twice a week 03/02/2024 How often do you get together with friends or re latives? Twice a week 03/02/2024 How often do you attend mu-ism or anabaptism serv ices? Never 03/02/2024 Active Member of [...] place to sleep or slept in a penitentiary (including now)? No 03/02/2024 Comments Unknown Sex and Gender Information Value Date Recorded Sex Assigned at Not on file Legal Sex Female 8:14 PM EDT Gender Identity Not on file Sexual Orientation Not on file Last Filed Vital Signs Vital Sign Reading Time Taken Comments Blood Pressure 112/74 02/02/2025 10:44 AM EDT Pulse 108 06/01/2024 1:21 PM EDT Temperature 36.6 C (97.8 F) 06/01/2024 1:21 PM EDT Respiratory Rate 22 06/01/2024 1:21 PM EDT Oxygen Saturation 99% 06/01/2024 1:21 PM EDT Inhaled Oxygen Concentration - - Weight 127 kg (280 lb) 02/02/2025 10:44 AM EDT Height 154.9 cm (5' 1 ) 06/01/2024 1:21 PM EDT Body Mass Index 52.91 06/01/2024 1:21 PM EDT Plan of Treatment Upcoming Encounters Date Type Department Care Team (Late st Contact Info) Description 08/02/2025 1:40 PM EDT Procedure Visit [facility] [address] [place] [address] Jefferson Howard, [address] [place], [place] [id number] Health Maintenance Due Date Last Done Comments Influenza Vaccine (Season Ended) 2025 Procedures Procedure Name Priority Date/Time Associated Diagnosis Comments SCANNED LABS Routine 02/09/2025 2:43 PM EDT [facility] PREG QUANT HCG Routine 02/09/2025 9: 26 AM EDT ALL THYROXINE (T4) FREE Routine 02/09/2025 9:26 AM EDT ALL THYROID STIM HORMONE Routine 02/09/2025 9:26 AM EDT POCT URINALYSIS DIPSTICK Routine 01/17/2025 2:06 PM EDT LGSIL of cervix of undetermined significance POCT , URINE Routine 01/17/2025 2:06 PM EDT LGSIL of cervix of undetermined significance US PELVIC COMPLETE W/ TV Routine 01/12/2025 1:12 PM EDT Pelvic pain in female URINE CULTURE - [facility] Routine 01/03/2025 12:33 AM EDT IGP,APTIMA HPV,AGE GDLN Routine 12/22/2024 11:15 AM EST PAP SMEAR Routine 12/22/2024 12:00 AM EST from Last 3 Months Results * SCANNED LABS (02/09/2025 2:43 PM EDT) Manuel Schwartz MD LAB CHG PERFORMABLES Final Resul t * [facility] PREG QUANT HCG (02/09/2025 9:26 AM EDT) HCG QUANTITATIVE <1 mIU/mL [facility] Comment: 5-50 0.2-1 WEEK 50-500 1-2 WEEKS 100-5,000 2-3 WEEKS 500-10,000 3-4 WEEKS 1,000-50,000 4-5 WEEKS 10,000-100,000 5-6 WEEKS 15,000-200,000 6-8 WEEKS 10,000-100,000 2-3 MONTHS 02/09/2025 9:26 AM EDT 02/09/2025 9:27 AM EDT Narrative CLINISYNC - 02/09/2025 11:02 AM EDT [facility] Anita DO CLINISYNC Final Result Performing Organization Address [facility]/ZIP Co de Phone Number [facility] * ALL THYROXINE (T4) FREE (02/09/2025 9:26 AM EDT) FREE T4 1.13 0.76 - 1.46 ng/dL TB 02/09/2025 9:26 AM EDT 02/09/2025 9:27 AM EDT Narrative CLINISYNC - 02/09/2025 11:01 AM EDT [facility] Final Result Performing Organization Address [facility] Co de Phone Number [facility] * (ABNORMAL) ALL THYROID STIM HORMONE (02/09/2025 9:26 AM EDT) THYROID STIMULATING HORMONE 5.935(H) 0.358 - 3.740 uIU/mL [facility] 02/09/2025 9:26 AM EDT 02/09/2025 9:27 AM EDT Narrative CLINISYNC - 02/09/2025 10:11 AM EDT [facility] Anita DO CLINISYNC Final Result Performing Organization Address [facility]/ZIP Co de Phone Number [facility] * POCT , urine manually resulted (01/17/2025 2:06 PM EDT) Preg Test, Ur Negative Negative Urine 01/17/2025 2:06 PM EDT [facility] DO POINT OF CARE TEST ENTER/EDIT OR DERABLES Final Result * (ABNORMAL) POCT urinalysis dipstick manually resulted (01/17/2025 2:06 PM EDT) Color, UA Yellow Clarity, UA Clear Glucose, UA Negative Negative - 1999(110) ++++ mg/dL Bilirubin, UA Negative Negative - 4(70) +++ mg/dL Ketones, UA Positive Negative - 160(16) ++++ mg/dL Comment:trace Spec Grav, UA 1.030 1 - 1.03 Blood, UA Negative Negative - 50 Lincoln/mcL pH, UA 5.5 5 - 9 Protein, UA Positive Negative - 2000(20) ++++ mg/dL Comment:100 Urobilinogen, UA 0.2 0.2 - 12 mg/dL Leukocytes, UA Negative Negative - 500+++ Skyler/mcL Nitrite, UA Negative Negative - Positive Urine 01/17/2025 2:06 PM EDT us Jefferson Anita DO POINT OF CARE TEST ENTER/EDIT OR DERABLES Final Result * US Pelvis w/ TV (01/12/2025 1:12 PM EDT) Anatomical Region Laterality Modality Pelvis Ultrasound 01/13/2025 11:1 7 PM EDT Narrative 01/13/2025 11:17 PM EDT EXAM: US PELVIC COMPLETE W/ TV HISTORY: Right lower quadrant pain x 2 weeks. COMPARISON: Pelvic ultrasound 11/30/2024. TECHNIQUE: Two-dimensional transabdominal grayscale ultrasound imaging of the pelvis was performed. Color flow Doppler imaging of the ovaries was also performed. Transvaginal was performed. FINDINGS: UTERUS 7.5 x 3.7 x 4.8 cm The uterus is anteverted in position and demonstrates a mildly heterogeneous echotexture. ENDOMETRIUM 0.4 cm The endometrium demonstrates a normal, homogeneous echotexture. RIGHT OVARY 2.1 x 1.5 x 1.8 cm The right ovary demonstrates a normal echotexture. There is normal color Doppler flow. LEFT OVARY 1.6 x 1.0 x 1.9 cm The left ovary demonstrates a normal echotexture. There is normal color Doppler flow. No fluid is present within the cul-de-sac. IMPRESSION: 1. Mildly heterogeneous uterus. 2. Normal color Doppler flow within the bilateral ovaries. Electronically Signed:Electronically signed by NORMA FUNES II, MD, PHD at 13-Jan-2025 11:16:36 PM [facility] Procedure Note Norma Funes MD - 01/13/2025 EXAM: US PELVIC COMPLETE W/ TV HISTORY: Right lower quadrant pain x 2 weeks. COMPARISON: Pelvic ultrasound 11/30/2024. TECHNIQUE: Two-dimensional transabdominal grayscale ultrasound imaging ofthe pelvis was performed. Color flow Doppler imaging of the ovaries wasalso performed. Transvaginal was performed. FINDINGS: UTERUS 7.5 x 3.7 x 4.8 cm The uterus is anteverted in position and demonstrates a mildlyheterogeneous echotexture. ENDOMETRIUM 0.4 cm The endometrium demonstrates a normal, homogeneous echotexture. RIGHT OVARY 2.1 x 1.5 x 1.8 cm The right ovary demonstrates a normal echotexture. There is normal colorDoppler flow. LEFT OVARY 1.6 x 1.0 x 1.9 cm The left ovary demonstrates a normal echotexture. There is normal colorDoppler flow. No fluid is present within the cul-de-sac. IMPRESSION: 1. Mildly heterogeneous uterus. 2. Normal color Doppler flow within the bilateral ovaries. Electronically Signed:Electronically signed by NORMA FUNES II, MD, PHDat 13-Jan-2025 11:16:36 PM [facility] us Gia LYNN IMG US PROCEDURES Final Result * URINE CULTURE - [facility] (01/03/2025 12:33 AM EDT) [facility] URINE CULTURE - [facility] Urine Culture - [facility] 15,000 colonies/ml mixed [facility] URINE CULTURE - [facility] bacterial skin contaminants [facility] URINE CULTURE - [facility] 2 Days [facility] URINE CULTURE - [facility] URINE [facility]ULTURE - [facility] Testing performed at [facility] URINE CULTURE - [facility] [address] [place] [address] [facility] 01/03/2025 12:3 3 AM EDT 01/03/2025 12:42 AM EDT Narrative CLINISYNC - 01/06/2025 9:21 AM EDT us Generic External Data Provider LAB BLOOD ORDERAB LES Final Result [facility]INISY[facility] * (ABNORMAL) IGP,APTIMA HPV,AGE GDLN (12/22/2024 11:15 AM EST) AGE CONOR AC TESTING Note . [facility] Comment: TESTS RESULT FLAG UNITS REF RANGE LAB Clinician Provided Cytology Information Source.............Cervix;Endocervix No. of containers..01 ThinPrep Vial Mo MOSLEY Mela... FLAG LEGEND: L-Low Normal,H-High Normal,LL-Alert Low,HH-Alert High <-Panic Low,>-Panic High,A-Abnormal,AA-Critical Abnormal Performed at: 01 =G [facility] [address] [place] [address] Aleida Colon MD, IGP, RFX APTIMA HPV ASCU Note(A) . [facility] Comment: TESTS RESULT FLAG UNITS REF RANGE LAB DIAGNOSIS: [A] 02 EPITHELIAL CELL ABNORMALITY. LOW GRADE SQUAMOUS INTRAEPITHELIAL LESION (LSIL). Specimen adequacy: 02 Satisfactory for evaluation. Endocervical and/or squamous metaplastic cells (endocervical component) are present. Performed by: 02 Cynthia Smith, Manager Application (ASCP) Electronically si... 02 Johanne Desir MD, Pathologist [...] <-Panic Low,>-Panic High,A-Abnormal,AA-Critical Abnormal Performed at: [address] [facility] [place] [address] Aleida Colon MD, Performed at: = - [facility] [id number] Transplant Worker: Aleida Colon MD, Phone: [phone] Performed at: [address] [id number] Transplant Worker: Aleida Colon MD, Phone: [phone] 12/22/2024 11:1 5 AM EST 12/22/2024 4:33 PM EST Narrative CLINISYNC - 12/28/2024 3:10 PM EDT BRUSH-SPATULA CERVIX ENDOCERVIX us Gia LYNN LAB BLOOD ORDERABLES Final Resul t [facility]INIS[facility] * Pap Smear (12/22/2024 12:00 AM EST) Swab Cervical swab / Unknown us iGa LYNN LAB CYTOLOGY ORDERABLES Final Re sult EXTERNAL LAB from Last 3 Months Insurance [employer] Care Teams Offset Press Assistant Relationship Specialty Start Date End Date Manuel Schwartz MD [address] [place] [address] PCP - General Family Medicine 03/02/24 Manuel Schwartz MD [address] [place] [address] PCP - [facility] 07/20/24
--- OUTSIDE RECORDS SUMMARY | 2025-03-19 13:52 | XMS_ITS | Encounter Summary ---
Author Organization [facility] Address [address] [place] [address] Care Team Providers Care Wildlife Refuge Specialist Name Role Phone Manuel Schwartz MD Primary Care Provider [phone] Manuel Schwartz MD Unavailable Encounter Details Date Type Department Care Team (Late st Contact Info) Description 02/09/2025 Orders Only [facility] [address] [place] [address] Manuel Schwartz MD [address] [place] [address] Social History Tobacco Use Types Packs/Day Years [...] week 03/02/2024 How often do you attend rastafarian or nondenominational serv ices? Never 03/02/2024 Active Member of [...] place to sleep or slept in a residential (including now)? No 03/02/2024 Comments Unknown Sex [...] EDT Procedure Visit [facility] [address] [place] [address] Jefferson Howard, DO [address] [facility] [address] [place], [place] [id number] documented as of this encounter Procedures Procedure Name Priority Date/Time Associated Diagnosis Comments SCANNED LABS Routine 02/09/2025 2:43 PM EDT documented in this encounter Results * SCANNED LABS (02/09/2025 2:43 PM EDT) us Manuel Schwartz MD LAB CHG PERFORMABLES Final Resul t documented in this encounter Visit Diagnoses Not on filedocumented in this encounter Care Teams Wildlife Refuge Specialist Relationship Specialty Start Date End Date Manuel Schwartz MD [address] [place] [address] PCP - General Family Medicine 03/02/24 Manuel Schwartz MD [address] [place] [address] PCP - [facility] 07/20/24 documented as of this encounter
--- OUTSIDE RECORDS SUMMARY | 2025-03-19 13:52 | XMS_ITS | Encounter Summary ---
Author Organization [facility] Address [address] [place] [address] Care Team Providers Care Professor Of Apologetics Name Role Phone Manuel Schwartz MD Primary Care Provider [phone] Manuel Schwartz MD Unavailable Encounter Details Date Type Department Care Team (Late st Contact Info) Description 06/10/2024 Orders Only [facility] [address] [place] [address] Manuel Schwartz MD [address] [place] [address] Social History Tobacco Use Types Packs/Day Years [...] How often do you attend mu-ism or jehovah's witness serv ices? Never 03/02/2024 Active Member of [...] place to sleep or slept in a [place] (including now)? No 03/02/2024 Comments Unknown Sex [...] EDT Procedure Visit [facility] [address] [facility] [place] [address] Jefferson Howard, DO [address] [facility] [address] [place], [place] [id number] documented as of this encounter Procedures Procedure Name Priority Date/Time Associated Diagnosis Comments ELECTROCARDIOGRAM REPORT Routine 024 1:41 PM EDT documented in this encounter Results * Electrocardiogram Report (06/09/2024 1:41 PM EDT) Manuel Schwartz MD IN CLINIC/BEDSIDE ORDERABLES Fin al Result documented in this encounter Visit Diagnoses Not on filedocumented in this encounter Care Teams Professor Of Apologetics Relationship Specialty Start Date End Date Manuel Schwartz MD [address] [place] [address] PCP - General Family Medicine 5/14/24 Manuel Schwartz MD [address] [place] [address] PCP - [facility] 07/20/24 documented as of this encounter
--- OUTSIDE RECORDS SUMMARY | 2025-03-19 13:52 | XMS_ITS | Encounter Summary ---
Author Organization [facility] Address [address] [place] [address] Care Team Providers Care Fine Dining Server Name Role Phone Manuel Schwartz MD Primary Care Provider [phone] Manuel Schwartz MD Unavailable Encounter Details Date Type Department Care Team (Late st Contact Info) Description 01/21/2025 Abstract [facility] [address] [place] [address] Jefferson Howard, DO [address] [place], [place] [id number] Social History Tobacco Use Types Packs/Day Years [...] week 03/02/2024 How often do you attend voodoo or caodaism serv ices? Never 03/02/2024 Active Member of [...] place to sleep or slept in a care home (including now)? No 03/02/2024 Comments Unknown Sex [...] EDT Procedure Visit [facility] [address] [facility] [place] [address] Jefferson Howard, [address] [facility] [address] [place], [place] [id number] documented as of this encounter Visit Diagnoses Not on filedocumented in this encounter Care Teams Fine Dining Server Relationship Specialty Start Date End Date Manuel Schwartz MD [address] [place] [phone] PCP - General Family Medicine 03/02/24 Manuel Schwartz MD [address] [place] [address] PCP - [facility] 07/20/24 documented as of this encounter
--- OUTSIDE RECORDS SUMMARY | 2025-03-19 13:52 | XMS_ITS | Encounter Summary ---
Author Organization [facility] Address [address] [place] [address] Care Team Providers Care Finishing Room Supervisor Name Role Phone Manuel Noel MD Primary Care Provider [phone] Manuel Noel MD Unavailable Encounter Details Date Type Department Care Team (Late st Contact Info) Description 06/03/2024 Clinisync Result Encounter [facility] External Department Unsolicited Manuel Noel MD [address] [place] [address] Social History Tobacco Use Types Packs/Day Years [...] week 03/02/2024 How often do you attend taoism or yarsanism serv ices? Never 03/02/2024 Active Member of [...] place to sleep or slept in a custodial (including now)? No 03/02/2024 Comments Unknown Sex [...] EDT Procedure Visit [facility] OB [address] [facility] [place] [address] Jefferson Howard, DO [address] [facility] [place] [address] documented as of this encounter Procedures Procedure Name Priority Date/Time Associated Diagnosis Comments XR LUMBAR SPINE 2 OR 3V 06/03/2024 1:10 PM EDT documented in this encounter Results * XR LUMBAR SPINE 2 OR 3V (06/03/2024 1:10 PM EDT) Anatomical Region Laterality Modality Radiographic Arleen ging 06/03/2024 1:10 PM EDT Narrative 06/03/2024 1:13 PM EDT The [address] [address] XRay Report Signed Patient: MANISH ROMERO MR#: [id number] : 2000 Acct:[id number] Age/Sex: 23 / F ADM Date: 06/01/24 Loc: RAD Attending Dr: Manuel Noel M.D. Ordering Physician: Manuel Noel M.D. Date of Service: 06/01/24 Procedure(s): XR lumbar spine 2-3V Accession Number(s): [id number] cc: Manuel Noel M.D. The [place] [id number] Patient Name: MANISH ROMERO MRN: [id number] date: 2000 Sex: F Assigned Patient Location: RAD Current Patient Location: Accession/Order Number: [id number] Exam Date: 06/01/2024 14:19 Report Date: 06/03/2024 13:10 At the request of: MANUEL NOEL Procedure: XR lumbar spine 2-3V EXAMINATION: XR lumbar spine 2-3V HISTORY: Right Sided Sciatica M54.31 COMPARISON: No relevant comparison available. FINDINGS: BONES: No significant spondylosis, scoliosis, fracture, or visible bony lesion. DISC SPACES: No significant disc height narrowing, subluxation, or endplate abnormality. PARASPINOUS: Negative. No paraspinous abnormality is seen. OTHER: Negative. XR/XR lumbar spine 2-3V IMPRESSION: 1. No acute abnormality or appreciable degenerative changes. Electronically authenticated by: DUARTE JOHANSEN Date: 06/03/2024 13:10 Dictated By: Duarte Johansen M.D. Signed By: 06/03/24 1313 DD/ 1310 TD/TT: Assistant Professor Of Mathematics: Procedure Note Radiology, Radiologist, MD - 06/03/2024 [place] [address] XRay Report Signed Patient: MANISH ROMERO LMR#: [id number] : 2000Acct:[id number] Age/Sex: 23 / FADM Date: 06/01/24 Loc: RAD Attending Dr: Manuel Noel M.D. Ordering Physician: Manuel Noel M.D. Date of Service: 06/01/24 Procedure(s): XR lumbar spine 2-3V Accession Number(s): [id number] cc: Manuel Noel M.D. The [place] [id number] Patient Name: MANISH ROMERO MRN: [id number] date: 2000 Sex: F Assigned Patient Location: [facility] Current Patient Location: Accession/Order Number: [id number] Exam Date: 06/01/2024 14:19 Report Date: 06/03/2024 13:10 At the request of: MANUEL NOEL Procedure: XR lumbar spine 2-3V EXAMINATION: XR lumbar spine 2-3V HISTORY: Right Sided Sciatica M54.31 COMPARISON: No relevant comparison available. FINDINGS: BONES: No significant spondylosis, scoliosis, fracture, or visible bony lesion. DISC SPACES: No significant disc height narrowing, subluxation, orendplate abnormality. PARASPINOUS: Negative. No paraspinous abnormality is seen. OTHER: Negative. XR/XR lumbar spine 2-3V IMPRESSION: 1. No acute abnormality or appreciable degenerative changes. Electronically authenticated by: DUARTE JOHANSEN Date: 06/03/2024 13:10 Dictated By: Duarte Johansen M.D. Signed By:06/03/24 1313 DD/ 1310 TD/TT: Assistant Professor Of Mathematics: Manuel Noel MD IMG XR PROCEDURES Final Result documented in this encounter Visit Diagnoses Not on filedocumented in this encounter Care Teams Finishing Room Supervisor Relationship Specialty Start Date End Date Manuel Noel MD [address] [place] [phone] PCP - General Family Medicine 03/02/24 Manuel Noel MD [address] [place] [phone] PCP - [facility] 07/20/24 documented as of this encounter
--- OUTSIDE RECORDS SUMMARY | 2025-03-19 13:52 | XMS_ITS | Encounter Summary ---
Author Organization [facility] Address [address] [place] [address] Care Team Providers Care Booster Plant Operator Name Role Phone Manuel Schwartz MD Primary Care Provider [phone] Manuel Schwartz MD Unavailable Encounter Details Date Type Department Care Team (Late st Contact Info) Description 09/07/2024 Orders Only [facility] [address] [place] [phone] Mir Silva MD [address] [place] [phone] Social History Tobacco Use Types Packs/Day Years [...] week 03/02/2024 How often do you attend jehovah's witness or anabaptism serv ices? Never 03/02/2024 Active [...] place to sleep or slept in a fpc (including now)? No 03/02/2024 Comments Unknown Sex [...] [address] [facility] [place] [address] Jefferson Howard, DO [address] [facility] [address] [place], [place] [id number] documented as of this encounter Procedures Procedure Name Priority Date/Time Associated Diagnosis Comments SCANNED LABS Routine 09/07/2024 2:12 PM EST documented in this encounter Results * SCANNED LABS (09/07/2024 2:12 PM EST) us Mir Silva MD LAB CHG PERFORMABLES Final Resu lt documented in this encounter Visit Diagnoses Not on filedocumented in this encounter Care Teams Booster Plant Operator Relationship Specialty Start Date End Date Manuel Schwartz MD [address] [place] [address] PCP - General Family Medicine 03/02/24 Manuel Schwartz MD [address] [place] [address] PCP - [facility] 07/20/24 documented as of this encounter
--- OUTSIDE RECORDS SUMMARY | 2025-03-19 13:52 | XMS_ITS | Clinical Summary ---
Author Organization [email or web address] Address [id number] [address] [place] [address] Care Team Providers Care Electrical Apprentice Name Role Phone Manuel Schwartz MD Primary Care Provider [phone] Allergies Active Allergy Reactions Criticality Noted Date Comments Penicillins 01/21/2019 Medications omeprazole (PriLOSEC) 20 mg capsule Take 20 mg by mouth daily. Active norethindrone-e.est radioL-iron (ESTROSTEP FE) 1-20(5)/1-30(7) /1mg-35mcg (9) tablet Take 1 tablet by mouth daily. Active ibuprofen (ADVIL,MOTRIN) 800 mg tablet Take 1 tablet (800 mg total) by mouth every 8 (eight) hours as needed for pain. 30 tablet 2 Active acetaminophen (TYLENOL EXTRA STRENGTH) 500 mg tablet Take 2 tablets (1,000 mg total) by mouth every 6 (six) hours as needed for pain. 30 tablet 4 Active famotidine (PEPCID) 20 mg tablet Take 1 tablet (20 mg total) by mouth in the morning and 1 tablet (20 mg total) before bedtime. 20 tablet 4 Active dicyclomine (BENTYL) 20 mg tablet Take 1 tablet (20 mg total) by mouth in the morning and 1 tablet (20 mg total) before bedtime. 20 tablet 4 Active ondansetron ODT (ZOFRAN ODT) 4 mg disintegrating tablet Dissolve 1 tablet (4 mg total) on tongue every 8 (eight) hours as needed for nausea for up to 10 doses. 10 tablet 4 Active Social History Tobacco Use Types Packs/Day Years Used Date Smoking Tobacco: Never Smokeless Tobacco: Never Alcohol Use Standard Drinks/Week Comments Not Currently 0 (1 standard drink = 0.6 oz pur e alcohol) Childcare Answer Date Recorded Childcare Unknown 03/30/2019 Employment Answer Date Recorded Employment Unknown 03/30/2019 Hunger Screening Answer Date Recorded Within the past 12 months we worried whether our food would run out before we got money to buy more. Never True 08/28/2024 Within the past 12 months th e food we bought just didn't last and we didn't have money to get more. Never True 08/28/2024 Purpose - Life Answer Date Recorded Purpose and direction in life Unknown Comments No Sex and Gender Information Value Date Recorded Sex Assigned at Not on file Legal Sex Female 6:13 PM EDT Gender Identity Not on file Sexual Orientation Not on file Last Filed Vital Signs Vital Sign Reading Time Taken Comments Blood Pressure 101/60 08/28/2024 8:09 PM EST Pulse 98 08/28/2024 8:09 PM EST Temperature 36.7 C (98 F) 08/28/2024 3:41 PM EST Respiratory Rate 17 08/28/2024 8:09 PM EST Oxygen Saturation 98% 08/28/2024 8:09 PM EST Inhaled Oxygen Concentration - - Weight 127.3 kg (280 lb 11.2 oz) 08/28/2024 3:41 PM EST Height 154.9 cm (5' 1 ) 08/28/2024 3:41 PM EST Body Mass Index 53.04 08/28/2024 3:41 PM EST Plan of Treatment Health Maintenance Due Date Last Done Comments Depression Screening 2012 Adult BMI Follow Up Plan 2018 Pap Smear 2021 DTaP,Tdap and Td Vaccines (7 - Td or Tdap) 02/17/2023 02/17/2013, 10/31/2004, 02/02/2002, Additional history exists Influenza Vaccine 06/20/2025 08/02/2016 Adult BMI Screening 08/28/2025 08/28/2024 Tobacco Screening 08/28/2025 08/28/2024 Medical Devices Not on file Insurance [place] [employer] Care Teams Electrical Apprentice Relationship Specialty Start Date End Date Manuel Schwartz MD PCP - General Family Medicine 01/21/19
--- OUTSIDE RECORDS SUMMARY | 2025-03-19 13:52 | XMS_ITS | Encounter Summary ---
Author Organization [facility] Address [address] [place] [address] Care Team Providers Care Gaming Commissioner Name Role Phone Manuel Schwartz MD Primary Care Provider [phone] Manuel Schwartz MD Unavailable Encounter Details Date Type Department Care Team (Late st Contact Info) Description 01/04/2025 Orders Only [facility] [address] [facility] [place] [phone] Janneth Paul MA [address] [place] [address] Social History Tobacco Use Types Packs/Day Years [...] week 03/02/2024 How often do you attend lutheran or episcopal serv ices? Never 03/02/2024 Active Member of [...] place to sleep or slept in a intermediate (including now)? No 03/02/2024 Comments Unknown Sex [...] EDT Procedure Visit [facility] [address] [facility] [place] [address] Jefferson Howard, DO [address] [facility] [address] [place], [place] [id number] documented as of this encounter Procedures Procedure Name Priority Date/Time Associated Diagnosis Comments PAP SMEAR Routine 12/22/2024 12:00 AM EST documented in this encounter Results * Pap Smear (12/22/2024 12:00 AM EST) Swab Cervical swab / Unknown [facility] ORDERABLES Final Re sult EXTERNAL LAB documented in this encounter Visit Diagnoses Not on filedocumented in this encounter Care Teams Gaming Commissioner Relationship Specialty Start Date End Date Manuel Schwartz MD [address] [place] [address] PCP - General Family Medicine 03/02/24 Manuel Schwartz MD [address] [place] [phone] PCP - [facility] 07/20/24 documented as of this encounter
--- OUTSIDE RECORDS SUMMARY | 2025-03-19 13:52 | XMS_ITS | Encounter Summary ---
Author Organization [facility] Address [address] [facility] [place] [address] Care Team Providers Care Financial Services Representative Name Role Phone Manuel Schwartz MD Primary Care Provider [phone] Manuel Schwartz MD Unavailable Encounter Details Date Type Department Care Team (Late st Contact Info) Description 02/09/2025 Results Follow-Up [facility] [address] [place] [address] Ranjana Malave LPN [address] [employer] [place] [address] Social History Tobacco Use Types Packs/Day Years [...] week 03/02/2024 How often do you attend buddhist or mandaeism serv ices? Never 03/02/2024 Active Member of [...] on file documented as of this encounter Miscellaneous Notes * Result Encounter Note - Ranjana Malave LPN - 02/09/2025 2:25 PM EDT Left detailed voicemail for pt and faxed results to pt's PCP documented in this encounter Plan of Treatment Upcoming Encounters Date Type Department Care Team (Late st Contact Info) Description 08/02/2025 1:40 PM EDT Procedure Visit [facility] OB [address] [facility] [place] [address] Jefferson Howard, [address] [place] [address] documented as of this encounter Visit Diagnoses Not on filedocumented in this encounter Care Teams Financial Services Representative Relationship Specialty Start Date End Date Manuel Schwartz MD [address] [place] [address] PCP - General Family Medicine 03/02/24 Manuel Schwartz MD [address] [place] [address] PCP - [facility] 07/20/24 documented as of this encounter
--- OUTSIDE RECORDS SUMMARY | 2025-03-19 13:53 | XMS_ITS | CCD ---
Author Organization [facility] Care Team Providers Care Car Framer Name Role Phone DEMETRIOC, DR WILLS Attending [...] KRISHNA Attending Unavailable ION, KRISHNA Admitting Unavailable IONKRISHNA [...] ., DR GAN Procedure Practitioner Em vailable NADERER, DR MANUEL Souza Primary Care Unavailable [...] DR GAN Consulting Unavailabl e ZIEBER, DR YMLENE Simpson Consulting Unavailable ANITA ., DR ANDREA Attending Unavailable WEST, DR AISHWARYA Luis Consulting Unavailable NADERER, DR MANUEL Souza Primary Care Unavailable ANITA ., DR ANDRAE Admitting Unavailable ANITA ., DR ANDREA Consulting [...] Primary Care Unavailable MYLENE SAMPSON Attending Unavailable Bert MATSON, Manuel Primary Care Provider [phone] Mir Silva MD Attending Provider Bert MATSON, Manuel Primary Care Provider Manuel Noel MD Unavailable Bert MATSON, Manuel Primary Care Provider Krishna Saxena MD Attending Provider Jefferson Howard DO Attending Provider Manuel Noel Primary Care Unavailable Mir Silva Admitting Unavailable Mir Silva Attending Unavailable Manuel Noel Primary Care Unavailable Krishna Saxena Admitting Unavailable Krishna Saxena Attending Unavailable Jefferson Howard Admitting Unavailable Jefferson Howard Attending Unavailable MANUEL NOEL Attending Unavailable MANUEL NOEL Attending Unavailable MANUEL NOEL Attending Unavailable JEFFERSON HOWARD Attending Unavailable JEFFERSON HOWARD Attending Unavailable GIA MAYO Attending Unavailable JEFFERSON HOWARD Attending Unavailable JEFFERSON HOWARD Attending Unavailable Allergies Allergy Classification Reported Allergen(s) Allergy Type Date of Onset Reaction(s) Facility (2 sources) Penicillins; Translations: [PENICILLINS] Drug allergy (disorder) 9 [facility] Repository (15 sources) Penicillins Drug Intolerance 1 [facility] (1 source) Penicillins Drug allergy (disorder) 4 [facility] Repository Medications Current Medications Medication Drug Class(es) Dates Sig (Normalized) Sig (Original) 200 actuat albuterol 0.09 mg/actuat dry powder inhaler (14 sources) beta2-Adrenergic Agonist Start: 10-05-2024 Albuterol Sulfate 90 mcg/actuation aerosol powdr breath activated Active 1 INH INHALATION EVERY 4-6 HOURS as needed October 05, 2024 1:00am Start: 02-27-2024 End: 12-22-2024 take 2 puff(s) by inhalation every four hours albuterol HFA 90 mcg/act inhaler Indications: Mild intermittent intrinsic asthma without status asthmaticus without complication ([facility]) Inhale 2 puffs every 4 (four) hours if needed for shortness of breath 18 g 3 02/27/2024 12/22/2024 Discontinued Start: 12-12-2021 End: 08-24-2024 Albuterol Sulfate (Ventolin Hfa) 90 mcg/actuation HFA aerosol inhaler Discontinued 2 INH INHALATION Q4H as needed for sob December 12, 2021 1:00am August 24, 2024 10:32am ethinyl estradiol 0.035 mg / norgestimate 0.25 mg oral tablet (8 sources) Progestin, Estrogen Start: 12-22-2024 End: 01-19-2025 take 1 tablet by mouth once daily, then take 1 tablet by mouth once daily norgestimate-ethinyl estradiol (Sprintec 28) 0.25-35 MG-MCG tablet Indications: control counseling Take 1 tablet by mouth Daily for 28 days Take 1 tablet by mouth daily 28 tablet 11 12/22/2024 Active meclizine hydrochloride 25 mg oral tablet (3 sources) Antiemetic Start: 08-24-2024 Meclizine 25 mg tablet Active 25 MG PO As Directed as needed for dizziness August 24, 2024 1:00am omeprazole 40 mg delayed release oral capsule (20 sources) Proton Pump Inhibitor Start: 03-02-2024 take [...] 20 MG PO Daily December 14, 2021 1:00am September 07, 2024 2:33pm Start: 11-20-2017 End: 12-12-2021 Omeprazole 20 mg Capsule,Del ayed Release(Dr/Ec) Discontinued 20 MG PO as needed for Acne November 20, 2017 1:00am December 12, 2021 3:38pm ondansetron 4 mg oral tablet (13 sources) Serotonin-3 Receptor Antagonist Start: 11-11-2024 take [...] Active promethazine hydrochloride 25 mg oral tablet (18 sources) Phenothiazine Start: 08-27-2024 take 1 tablet by mouth every six hours as needed for nausea and vomiting Promethazine 25 mg tablet Active 25 MG PO Every 6 hours as needed for nausea and vomiting August 27, 2024 1:00am promethazine (Ph energan) 12.5 MG tablet Take by mouth Active sucralfate 1000 mg oral tablet (2 sources) Aluminum Complex Start: 10-05-2024 take 1 tablet by mouth twice daily Sucralfate (Carafate) 1 gram tablet Active 1 GM PO Twice daily 60 October 05, 2024 1:00am Completed/Discontinued Medications Medication Drug Class(es) Dates Sig (Normalized) Sig (Original) ARIPiprazole 2 mg oral tablet (3 sources) Atypical Antipsychotic Start: 01-26-2019 End: 12-12-2021 take 1 tablet by mouth once daily Aripiprazole 2 mg Tablet Discontinued 2 MG PO Daily 14 January 26, 2019 12:00am December 12, 2021 3:38pm cyclobenzaprine hydrochloride 10 mg oral tablet (4 sources) Muscle Relaxant Start: 06-01-2024 End: 11-11-2024 take 1 tablet by mouth three times daily as needed for muscle spasms cyclobenzaprine (Flexeril) 10 MG tablet Indications: Right sided sciatica Take 1 tablet (10 mg) by mouth 3 (three) times a day as needed for muscle spasms 30 tablet 06/01/2024 11/11/2024 Discontinued (Other) Drospirenone-Ethinyl Estradiol (3 sources) Progestin, Estrogen Start: 12-12-2021 End: 08-24-2024 take 1 tablet by mouth once daily Drospirenone-Ethinyl Estradiol 3-0.03 mg tablet Discontinued 1 TAB PO Daily December 12, 2021 1:00am August 24, 2024 10:33am Start: 12-12-2021 End: 08-24-2024 take 1 tablet by mouth once daily Drospirenone-Ethinyl Estradiol 3-0.03 mg tablet Discontinued 1 TAB PO Daily December 12, 2021 12:00am August 24, 2024 9:33am DULoxetine 30 mg delayed release oral capsule (3 sources) Serotonin and Norepinephrine Reuptake Inhibitor Start: 12-14-2021 End: 08-24-2024 take 1 capsule by mouth once daily at bedtime Duloxetine 30 mg Capsule,Delayed Release(Dr/Ec) Discontinued 30 MG PO Daily at bedtime December 14, 2021 1:00am August 24, 2024 10:32am ergocalciferol 1.25 mg oral capsule (3 sources) Provitamin D2 Compound Start: 01-26-2019 End: 12-12-2021 Ergocalciferol (Vitamin D2) 50,000 unit Capsule Discontinued 92591 UNIT PO Sa@0900 2 January 26, 2019 12:00am December 12, 2021 3:38pm sertraline 50 mg oral tablet (3 sources) Serotonin Reuptake Inhibitor Start: 01-26-2019 End: 12-12-2021 take 1 tablet by mouth once daily Sertraline 50 mg Tablet Discontinued 50 MG PO Daily 14 January 26, 2019 12:00am December 12, 2021 3:38pm Problems Active Problems Problem Classification Problem Date Documented Da te Episodic/Chronic Acute posthemorrhagic anemia (1 source) Acute posthemorrhagic anemia; Translations: [ACUTE POSTHEMORRHAGIC ANEMIA] Onset: 3 Episodic Administrative/social admission (2 sources) Patient encounter status; Translations: [Person consulting for explanation of examination or test findings] 02-02-2025 Episodic Asthma (15 sources) Mild intermittent asthma; Translations: [Mild intermittent asthma, uncomplicated] Onset: 4 03-02-2024 Chronic Cancer of cervix (1 source) Cervical intraepithelial neoplasia grade 1; Translations: [Low grade squamous intraepithelial lesion on cytologic smear of cervix (LGSIL)] 01-17-2025 Episodic Contraceptive and procreative management (3 sources) Subcutaneous contraceptive implant present; Translations: [Encounter for surveillance of implantable subdermal contraceptive] 12-02-2024 Episodic Esophageal disorders (20 sources) Gastroesophageal reflux disease; Translations: [Gastro-esophageal reflux disease without esophagitis] Onset: 4 01-21-2019 Chronic Esophageal disorders (2 sources) Esophagitis; Translations: [Esophagitis] 10-05-2024 Episodic Influenza (1 source) Influenza due to other identified influenza virus with other respiratory manifestations; Translations: [FLU D/T OTH ID FLU VIR OTH RSP MANF] Onset: 2 Episodic Menstrual disorders (19 sources) Irregular menstruation, unspecified; Translations: [Amenorrhea] Onset: 2 Chronic Mood disorders (18 sources) Recurrent major depression; Translations: [Major depressive disorder, recurrent, unspecified] Onset: 4 01-21-2019 Chronic Nausea and vomiting (6 sources) Nausea; Translations: [Nausea] 08-24-2024 Episodic Noninfectious [...] ovarian syndrome] 11-11-2024 Chronic Other gastrointestinal disorders (3 sources) Constipation; Translations: [Constipation, unspecified] 01-21-2019 Episodic Other gastrointestinal disorders (1 source) Constipation, unspecified; Translations: [Constipation, unspecified] 08-24-2024 Episodic Other nutritional; endocrine; and metabolic disorders (15 sources) Morbid obesity; Translations: [Morbid (severe) obesity due to excess calories] Onset: 4 03-02-2024 Chronic Other and delivery including normal (15 sources) Single live ; Translations: [Encounter for supervision of other normal , third trimester] Onset: 2 Episodic Other screening for suspected conditions (not mental disorders or infectious disease) (20 sources) Encounter for screening for malignant neoplasm of cervix; Translations: [Encounter for other specified screening] Onset: 2 Episodic Other upper respiratory disease (15 sources) Allergic rhinitis due to pollen; Translations: [...] Problem Date Documented Date Episodic/Chronic Abdominal pain (20 sources) Generalized abdominal pain; Translations: [Abdominal pain] [...] Spondylosis; intervertebral disc disorders; other back problems (19 sources) Cervicalgia; Translations: [Torticollis] Onset: 07-13-2022 Episodic Results Test Name Value Interpretation Reference Range Facility ALL THYROID STIM HORMONEon 0 02-09-2025 Interpretation and review of laboratory results Abnormal [facility] TSH Qn 5.935 m[IU]/L High [facility] HCG ( test) Ql (U)o n 01-17-2025 Interpretation and review of laboratory results Normal [facility] Preg Test, Ur Negative Negative [facility] 01-17-2025 L - -------- Specimen: [id number] Received: 01/18/25 Status: GHAZAL Zurita Num: [id number] Spec Type: Surgical Subm Dr: Jefferson Howard Tissues: A Endocervix - Biopsy (ENDOCERVIX) Endocervix - Curettings Procedures: TESSIE/Day Olivarez/Elvin Huggins -------- Age/ Patient Sex Location Account Attending Physician -------- Jes Malik / LABELL [id number] Jefferson Howard -------- SPEC NUM: [id number] RECD: 01/18/25 STATUS: GHAZAL ZURITA NUM: [id number] JUDIT: 01/17/25 [facility] DR: Jefferson Howard ENTERED: 01/18/25-[address] [facility] [address]: Emma,Lab SPEC TYPE: Surgical DEPT: LUCAS MAR ENTERED BY: [id number] RECV BY: [id number] ORDERED: HE/2, Gross/Micro L4 ORDERED: HE/2, Gross/Micro L4 Pathological Diagnosis Endocervical curetting: -Mucus with a few endocervical glandular epithelial strips and only focal mild nonspecific degeneration, otherwise without dysplasia or any high-grade atypia identified Clinical Information Low-grade squamous intraepithelial lesion Gross Description Part A is received in formalin labeled with the patients name, date of , and ECC is a pale salvador mucoid material, admixed with salvador-pink, feathery tissue fragments, 1 x 0.5 x 0.1 cm in aggregate. The specimen is filtered and entirely submitted in a single cassette. (1, ns, [id number]) Microscopic Description Microscopic examination is performed -------- Specimen: Received: 01/18/25 Status: GHAZAL Queenie Num: [id number] Spec Type: Surgical Subm Dr: Jefferson Howard Tissues: A Endocervix - Biopsy (ENDOCERVIX) Endocervix - Curettings Procedures: HE/2, Gross/Micro L4 -------- Patient: Jes Malik [id number] (Continued) -------- Specimen: [id number] Received: 01/18/25 (Continued) Signed (signature on file) Lizabeth Diggs MD 01/19/25 1541 -------- Specimen: [id number] Received: 01/18/25 Status: GHAZAL Zurita Num: [id number] Spec Type: Surgical Subm Dr: Jefferson Howard Tissues: A Endocervix - Biopsy (ENDOCERVIX) Endocervix - Curettings Procedures: TESSIE/2, Gross/Elvin L4 -------- Patient: MalikJes norman [id number] (Continued) -------- Specimen: [id number] Received: 01/18/25 (Continued) CPT Codes 15196 -------- -------- Specimen: Received: 01/18/25 Status: GHAZAL Zurita Num: [id number] Spec Type: Surgical Subm Dr: Jefferson Howard Tissues: A Endocervix - Biopsy (ENDOCERVIX) Endocervix - Curettings Procedures: TESSIE/Day Olivarez/Elvin L4 -------- Patient: Jes Malik [id number] (Continued) -------- Signed (signature on file) Lizabeth Diggs MD 01/19/25 1541 Normal [facility] Urinalysis macro (dipstick) panel (U)on 01-17-2025 Bilirubin, UA Negative Negative - 4(70) +++ mg/dL [facility] Blood, UA Negative Negative - 50 Licnoln/mcL [facility] Clarity, UA Clear [facility] Color, UA Yellow [facility] Glucose, UA Negative Negative - 2000(110) ++++ mg/dL [facility] Interpretation and review of laboratory results Abnormal [facility] Ketones, UA Positive Negative - 160(16) ++++ mg/dL [facility] Comment on above: trace Leukocytes, UA Negative Negative - 500+++ Skyler/mcL [facility] Nitrite, UA Negative Negative - Positive [facility] pH, UA 5.5 5 - 9 [facility] Protein, UA Positive Negative - 2000(20) ++++ mg/dL [facility] Comment on above: 100 Spec Grav, UA 1.03 1 - 1.03 [facility] Urobilinogen, UA 0.2 0.2 - 12 mg/dL [facility] US PELVIC COMPLETE W/ TVon 0 01-12-2025 US PELVIC COMPLETE W/ TV EXAM: US [...] bilateral ovaries. Electronically Signed:Electronically signed by NORMA SANDERSON II, MD, PHD at 13-Jan-2025 11:16:36 PM [facility] Normal Not Available Comment on above: Order Comment: US PE LVIS-TRANSVAG IF INDICATED No LMP recorded. Urine Cultureon 01-03-2025 Bacteria identified Cx Nom (U) 15,000 colonies/ml mixed bacterial skin contaminants 2 Days PERFORMED BY: [place] [address] PATHOLOGIST LUMBER BEARER BRUCE CALI M.D. Normal [facility] Comment on above: Performed By: #### C UU #### [address] Urine cultureOrdered By: Zenon Saxena on 01-03-2025 Bacteria identified Cx Nom (U) Urine culture [facility] IGP,APTIMA HPV,AGE GDLNon AGE GDLN ACOG TESTING Note . [facility] Healthcare Comment on above: TESTS RESULT FLAG UN ITS REF RANGE LAB Clinician Provided Cytology Information Source.............Cervix;Endocervix No. of containers..01 ThinPrep Vial Age Algo ACOG Mela... -17 11 FLAG LEGEND: L-Low Normal,H-High Normal,LL-Alert Low,HH-Alert High <-Panic Low,>-Panic High,A-Abnormal,AA-Critical Abnormal Performed at: 01 =[facility] [place] [address] Aleida Colon MD, IGP, RFX APTIMA HPV ASCU Note Abnormal . [facility] Healthcare Comment on above: TESTS RESULT FLAG UN ITS REF RANGE LAB DIAGNOSIS: [A] 02 EPITHELIAL CELL ABNORMALITY. LOW GRADE SQUAMOUS INTRAEPITHELIAL LESION (LSIL). Specimen adequacy: 02 Satisfactory for evaluation. Endocervical and/or squamous metaplastic cells (endocervical component) are present. Performed by: 02 Cynthia Smith, Nutrition Intern (ASCP) Electronically si... 02 Johanne Desir MD, [...] <-Panic Low,>-Panic High,A-Abnormal,AA-Critical Abnormal Performed at: [address] [address] Aleida Colon MD, Performed at: =[facility] [id number] Debridging Machine Operator: Aleida Colon MD, Phone: [phone] Performed at: [facility] [id number] Debridging Machine Operator: Aleida Colon MD, Phone: [phone] Interpretation and review of laboratory results Abnormal [facility] BRUSH-SPATULA CERVIX ENDOCERVIX [facility] Insertion/Removal of Contrac eptive Capsuleon 12-02-2024 Pilar Collins LPN 12/02/2024 3:17 PM Insertion/Removal of Contraceptive Capsule Date/Time: 12/02/2024 1:19 PM Performed by: Jefferson Howard DO Authorized by: Jefferson Howard DO Consent: Consent obtained: Written Consent [...] with steri-strips and pressure bandage applied: yes [facility] US PELVIC COMPLETE W/ TVon 0 11-30-2024 [...] 03-Dec-2024 08:37:11 AM [facility] Normal Not Available Comment on above: Order Comment: US PE LVIS-TRANSVAG IF INDICATED No LMP recorded. ALL CBC WITH AUTO DIFFon BASOPHILS ABSOLUTE AUTO 0.1 [facility] Basophils/100 WBC (Bld) 0.6 % 0.2 - 2.0 % [facility] Eosinophils/100 WBC (Bld) 2.6 % 0.9 - 7.0 % [facility] Erythrocyte distribution width (RBC) [Ratio] 13.2 % 11.0 - 15.0 % [facility] Hematocrit (Bld) [Volume fraction] 38.2 % 36.0 - 48.0 % [facility] Hemoglobin (Bld) [Mass/Vol] 12.4 g/dL 12.0 - 16.0 g/dL [facility] IMMATURE GRANULOCYTES ABS AUTO 0.04 High [facility] Immature granulocytes/100 WBC (Bld) 0.4 % 0.0 - 0.5 % [facility] Interpretation and review of laboratory results Abnormal [facility] LYMPHOCYTES ABSOLUTE AUTO 3.4 [facility] Lymphocytes/100 WBC (Bld) 34.8 % 20.5 - 60.0 % [facility] MCH (RBC) [Entitic mass] 28.3 pg 26.7 - 34.0 pg [facility] MCHC (RBC) [Mass/Vol] 32.5 g/dL 29.9 - 35.2 g/dL [facility] MCV (RBC) [Entitic vol] 87.2 fL 81.0 - 99.0 fL [facility] MONOCYTES ABSOLUTE AUTO 0.7 [facility] Monocytes/100 WBC (Bld) 7.2 % 1.7 - 12.0 % [facility] NEUTROPHILS ABSOLUTE AUTO 5.4 [facility] Neutrophils/100 WBC (Bld) 54.4 % 43.0 - 75.0 % [facility] Platelet mean volume (Bld) [Entitic vol] 10 fL 9.5 - 13.5 fL [facility] TBH EO # 0.3 [facility] TB PLT 261 [facility] TB RBC 4.38 [facility] WBC 9.9 [facility] HCG ( test) IA.rapi d Ql (U)Ordered By: Mir Silva on 09-07-2024 HCG ( test) Ql (U) Urine human chorionic gonadotropin (hCG) detection by immunoassay [facility] HCG,Urineon 09-07-2024 Beta HCG ( test) Ql (U) Negative Normal [facility] Comment on above: Result Comment: PERF ORMED BY: [place] [address] PATHOLOGIST LUMBER BEARER BRUCE ACLI M.D. Performed By: #### U HCG #### [address] 09-07-2024 L - -------- Specimen: [id number] Received: 09/07/24 Status: GHAZAL Zurita Num: [id number] Spec Type: Surgical Subm Dr: Mir Silva MD Tissues: A Small Intestine - Biopsy/Polyp (SMALL BOWEL BX R/O CELIAC) Procedures: HE/2, Gross/Micro L4 -------- Age/ Patient Sex Location Account Attending Physician -------- Jes Malik [id number] Mir Silva MD -------- SPEC NUM: [id number] RECD: 09/07/24 STATUS: GHAZAL QUEENIE NUM: [id number] JUDIT: 09/07/24 [facility] DR: Mir Silva MD ENTERED: 09/07/[address] [facility] [address]: SPEC TYPE: Surgical DEPT: S ENTERED BY: [id number] RECV BY: [id number] ORDERED: HE/2, Gross/Micro L4 ORDERED: HE/2, Gross/Micro [...] submitted in a single cassette. (1, ns, [id number]) Microscopic Description Microscopic examination is performed. CPT Codes 51443 -------- -------- Specimen: [id number] Received: 09/07/24 Status: GHAZAL Queenie Num: [id number] Spec Type: Surgical Subm Dr: Mir Silva MD Tissues: A Small Intestine - Biopsy/Polyp (SMALL BOWEL BX R/O CELIAC) Procedures: HE/2, Gross/Micro L4 -------- Patient: Jse Malik [id number] (Continued) -------- Signed (signature on file) Roberth Martinez MD 09/08/24 1012 Normal [facility] CBC AND AUTO DIFFon 08-28-20 24 ABSOLUTE BASOPHIL 0.0 X10E9/L Normal 0.0-0.2 [facility] Comment on above: Performed By: #### C MP, CBCA #### [facility] ([id number]) [address] [place] [address] ABSOLUTE NEUTROPHIL 3.8 X10E9/L Normal 1.5-6.6 [facility] Comment on above: Performed By: #### C MP, CBCA #### [facility] ([id number]) [address] [place] [address]235 Basophils/100 WBC (Bld) 0.3 % Normal [facility] Comment on above: Performed By: #### C MP, CBCA #### [facility] ([id number]) [address] [place] [address] Eosinophils (Bld) [#/Vol] 0.0 10*3/uL Normal 0.0-0.4 [facility] Comment on above: Performed By: #### C MP, CBCA #### [facility] ([id number]) [address] [place] [address]682 Eosinophils/100 WBC (Bld) 0.8 % Normal [facility] Comment on above: Performed By: #### C MP, CBCA #### [facility] ([id number]) [address] [place] [address] 11817 Erythrocyte distribution width (RBC) [Ratio] 14.5 % Normal 11.5-15.0 [facility] Comment on above: Performed By: #### C MP, CBCA #### [facility] ([id number]) [address] [place] [address] 18628 Hematocrit (Bld) [Volume fraction] 38.8 % Normal 35-47 [facility] Comment on above: Performed By: #### C MP, CBCA #### [facility] ([id number]) [address] [place] [address] 52182 Hemoglobin (Bld) [Mass/Vol] 13.0 g/dL Normal 11.7-15.5 [facility] Comment on above: Performed By: #### C MP, CBCA #### [facility] ([id number]) [address] [place] [address]13 Lymphocytes (Bld) [#/Vol] 0.5 10*3/uL Low 1.0-3.5 [facility] Comment on above: Performed By: #### C MP, CBCA #### [facility] ([id number]) [address] [place] [address]204 Lymphocytes/100 WBC (Bld) 11.5 % Normal [facility] Comment on above: Performed By: #### C MP, CBCA #### [facility] ([id number]) [address] [place] [address] 32007 MCH (RBC) [Entitic mass] 28.6 pg Normal 27-34 [facility] Comment on above: Performed By: #### C MP, CBCA #### [facility] ([id number]) [address] [place] [address] 74337 MCHC (RBC) [Mass/Vol] 33.5 g/dL Normal 32-36 [facility] Comment on above: Performed By: #### C MP, CBCA #### [facility] ([id number]) [address] [place] [address] 58290 MCV (RBC) [Entitic vol] 85 fL Normal 80-100 [facility] Comment on above: Performed By: #### C MP, CBCA #### [facility] ([id number]) [address] [place] [address] 81699 Monocytes (Bld) [#/Vol] 0.2 10*3/uL Normal 0-0.9 [facility] Comment on above: Performed By: #### C MP, CBCA #### [facility] ([id number]) [address] [place] [address] 00446 Monocytes/100 WBC (Bld) 5.1 % Normal [facility] Comment on above: Performed By: #### C MP, CBCA #### [facility] ([id number]) [address] [place] [address] 98641 Neutrophils/100 WBC (Bld) 82.3 % Normal [facility] Comment on above: Performed By: #### C MP, CBCA #### [facility] ([id number]) [address] [place] [address] [place] [address] Platelet mean volume (Bld) [Entitic vol] 8.6 fL Normal 7-12 [facility] Comment on above: Performed By: #### C MP, CBCA #### [facility] ([id number]) [address] [place] [address] 32500 Platelets (Bld) [#/Vol] 225 10*3/uL Normal 150-450 [facility] Comment on above: Performed By: #### C MP, CBCA #### [facility] ([id number]) [address] [place] [address] 76558 RBC COUNT 4.55 X10E12/L Normal 3.80-5.20 [facility] Comment on above: Performed By: #### C MP, CBCA #### [facility] ([id number]) [address] [place] [address] 22861 WBC (Bld) [#/Vol] 4.6 10*3/uL Normal 4.0-11.0 [facility] Comment on above: Performed By: #### C DONG, CBCA #### [facility] ([id number]) [address] [place] [address] 66035 COMPREHENSIVE METABOLIC PANE Carlin 08-28-2024 Albumin [Mass/Vol] 3.6 g/dL Normal 3.2-5.3 [facility] Comment on above: Performed By: #### C DONG, CBCA #### [facility] ([id number]) [address] [place] [address] 48817 ALP [Catalytic activity/Vol] 65 U/L Normal 39-130 [facility] Comment on above: Performed By: #### C DONG, CBCA #### [facility] ([id number]) [address] [place] [address] 70202 ALT [Catalytic activity/Vol] 29 U/L Normal 0-31 [facility] Comment on above: Performed By: #### C DONG, CBCA #### [facility] ([id number]) [address] [place] [address] 69116 Anion gap [Moles/Vol] 10 mmol/L Normal 5-15 [facility] Comment on above: Performed By: #### C DONG, CBCA #### [facility] ([id number]) [address] [place] [address] 78722 AST [Catalytic activity/Vol] 36 U/L Normal 0-41 [facility] Comment on above: Performed By: #### C DONG, CBCA #### [facility] ([id number]) [address] [place] [address] 87508 Bilirubin [Mass/Vol] 0.9 mg/dL Normal 0.3-1.2 [facility] Comment on above: Performed By: #### C DONG, CBCA #### [facility] ([id number]) [address] [place] [address] 53720 Calcium [Mass/Vol] 8.3 mg/dL Low 8.5-10.5 [facility] Comment on above: Performed By: #### C DONG CBCA #### [facility] ([id number]) [address] [place] [address] 60194 Chloride [Moles/Vol] 103 mmol/L Normal 98-109 [facility] Comment on above: Performed By: #### C DONG CBCA #### [facility] ([id number]) [address] [place] [address] 40408 CO2 [Moles/Vol] 22 mmol/L Normal 22-32 [facility] Comment on above: Performed By: #### C DONG CBCA #### [facility] ([id number]) [address] [place] [address] 27766 Creatinine [Mass/Vol] 0.72 mg/dL Normal 0.40-1.00 [facility] Comment on above: Result Comment: METH OD TRACEABLE TO IDMS STANDARD Performed By: #### C JOAQUINA UMANA #### [facility] ([id number]) [address] [place] [address] 74482 eGFR (CKD-EPI) NON-RACE DEPENDENT >90 Normal >59 [facility] Comment on above: Result Comment: Reported eGFR is based on the CKD-EPI 2021 equation that does not use a race coefficient. Performed By: #### C JOAQUINA MUANA #### [facility] ([id number]) [address] [place] [address] 19678 Glucose [Mass/Vol] 103 mg/dL High 65-99 [facility] Comment on above: Performed By: #### C DIANE UMANAA #### [facility] ([id number]) [address] [place] [address] 42979 Potassium [Moles/Vol] 3.5 mmol/L Normal 3.5-5.0 [facility] Comment on above: Performed By: #### C MP, CBCA #### [facility] ([id number]) [address] [place] [address] 94798 Protein [Mass/Vol] 6.9 g/dL Normal 6.0-8.0 [facility] Comment on above: Performed By: #### C MP, CBCA #### [facility] ([id number]) [address] [place] [address] 53791 Sodium [Moles/Vol] 135 mmol/L Normal 134-146 [facility] Comment on above: Performed By: #### C MP, CBCA #### [facility] ([id number]) [address] [place] [address] 99146 Urea nitrogen [Mass/Vol] 16 mg/dL Normal 5-23 [facility] Comment on above: Performed By: #### C MP, CBCA #### [facility] ([id number]) [address] [place] [address] ABDOMEN AND PELVIS W CONT on [...] based on Singh et al., J Am Judit Radiol 10:675-81 (2013). * All CT scans at this facility use dose modulation, iterative reconstruction, and/or weight based dosing when appropriate to reduce radiation dose to as low as reasonably achievable Finalized by Huang Burleson MD on 08/28/2024 8:12 PM Normal [facility] HCG ( test) Ql (U)o n 08-28-2024 Beta HCG ( test) Ql (U) Negative Normal [facility] Comment on above: Performed By: #### 2 106-3 #### [facility] ([id number]) [address] [place] [address] 27960 URN MACROSCOPIC NURon 2023 BILIRUBIN MOLLY Small Abnormal [facility] Comment on above: Performed By: #### N UM #### [facility] ([id number]) [address] [place] [address] 25736 BLOOD/HGB MOLLY Negative Normal [facility] Comment on above: Performed By: #### N UM #### [facility] ([id number]) [address] [place] [address] 81804 GLUCOSE MOLLY Negative Normal [facility] Comment on above: Performed By: #### N UM #### [facility] ([id number]) [address] [place] [address] 57724 KETONES MOLLY Negative Normal [facility] Comment on above: Performed By: #### N UM #### [facility] ([id number]) [address] [place] [address] 17546 LEUKOCYTE ESTERASE MOLLY Negative Normal [facility] Comment on above: Performed By: #### N UM #### [facility] ([id number]) [address] [place] [address] 57317 NITRITE MOLLY Negative Normal NEG [facility] Comment on above: Performed By: #### N UM #### [facility] ([id number]) [address] [place] [address] 96564 PH MOLLY 5.5 Normal 5.0-8.5 [facility] Comment on above: Performed By: #### N UM #### [facility] ([id number]) [address] [place] [address] 39741 PROTEIN MOLLY >=300 Abnormal NEG [facility] Comment on above: Performed By: #### N UM #### [facility] ([id number]) [address] [place] [address] 86763 SPECIFIC GRAVITY MOLLY >=1.030 Normal 1.003-1.035 [facility] Comment on above: Performed By: #### N UM #### [facility] ([id number]) [address] [place] [address] 53776 UROBILINOGEN MOLLY 0.2 eu/dL Normal <1.1 [facility] Comment on above: Performed By: #### N UM #### [facility] ([id number]) [address] [place] [address] 25526 MHPT TRICHOMONAS/WET PREPon 07-01-2024 WET PREP TRIC BV CYDNEY Wet Prep Tric BV Cydney WP.BACT Bacteria^Bacteria [facility] WET PREP TRIC BV [place] WP.CLUE Clue Cells^Clue Cells [facility] WET PREP TRIC BV [place] WP.JEANNETTE Fungal Elements^Fungal Elements [facility] WET PREP TRIC BV [place] WP.RBC RBC^RBC [facility] WET PREP TRIC BV [place] WP.TRICH Trichomonas^Trichomon as [facility] WET PREP TRIC BV [place] WP.WBC WBC^WBC [facility]IS[facility] No Panel Informationon 07-01 WET PREP TRIC BV [place] F Few^Few [facility] WET PREP TRIC BV CYDNEY N None Seen^None Seen [facility] CBC AND AUTO DIFFon 02-28-20 ABSOLUTE BASOPHIL 0.1 X10E9/L Normal 0.0-0.2 [facility] Comment on above: Performed By: #### C DONG, 3039-12, , CBCA #### [facility] ([id number]) [address] [place] [address] 02481 ABSOLUTE NEUTROPHIL 8.4 X10E9/L High 1.5-6.6 [facility] Comment on above: Performed By: #### C DONG, 3039-12, , CBCA #### [facility] ([id number]) [address] [place] [address] 59082 Basophils/100 WBC (Bld) 0.9 % Normal [facility] Comment on above: Performed By: #### C DONG, 3039-12, , CBCA #### [facility] ([id number]) [address] [place] [address] 13841 Eosinophils (Bld) [#/Vol] 0.2 10*3/uL Normal 0.0-0.4 [facility] Comment on above: Performed By: #### C DONG, 3039-12, , CBCA #### [facility] ([id number]) [address] [place] [address] 26217 Eosinophils/100 WBC (Bld) 2.1 % Normal [facility] Comment on above: Performed By: #### C DONG, 3, , CBCA #### [facility] ([id number]) [address] [place] [address] 56054 Erythrocyte distribution width (RBC) [Ratio] 14.8 % Normal 11.5-15.0 [facility] Comment on above: Performed By: #### C DONG, 3039-12, , CBCA #### [facility] ([id number]) [address] [place] [address] 56260 Hematocrit (Bld) [Volume fraction] 38.8 % Normal 35-47 [facility] Comment on above: Performed By: #### C DONG, 3039-12, , CBCA #### [facility] ([id number]) [address] [place] [address] 38233 Hemoglobin (Bld) [Mass/Vol] 12.7 g/dL Normal 11.7-15.5 [facility] Comment on above: Performed By: #### C DONG, 3039-12, , CBCA #### [facility] ([id number]) [address] [place] [address] 50724 Lymphocytes (Bld) [#/Vol] 2.0 10*3/uL Normal 1.0-3.5 [facility] Comment on above: Performed By: #### C DONG, 3039-12, , CBCA #### [facility] ([id number]) [address] [place] [address] 64469 Lymphocytes/100 WBC (Bld) 17.0 % Normal [facility] Comment on above: Performed By: #### C DONG, 3039-12, , CBCA #### [facility] ([id number]) [address] [place] [address] 39539 MCH (RBC) [Entitic mass] 27.8 pg Normal 27-34 [facility] Comment on above: Performed By: #### C DONG, 3039-12, , CBCA #### [facility] ([id number]) [address] [place] [address] 87307 MCHC (RBC) [Mass/Vol] 32.8 g/dL Normal 32-36 [facility] Comment on above: Performed By: #### C DONG, 3039-12, , CBCA #### [facility] ([id number]) [address] [place] [address] 06298 MCV (RBC) [Entitic vol] 85 fL Normal 80-100 [facility] Comment on above: Performed By: #### C DONG, 3039-12, , CBCA #### [facility] ([id number]) [address] [place] [address] 25027 Monocytes (Bld) [#/Vol] 0.7 10*3/uL Normal 0-0.9 [facility] Comment on above: Performed By: #### C DONG, 3039-12, , CBCA #### [facility] ([id number]) [address] [place] [address] 59503 Monocytes/100 WBC (Bld) 6.4 % Normal [facility] Comment on above: Performed By: #### C DONG, 3039-12, , CBCA #### [facility] ([id number]) [address] [place] [address] 09058 Neutrophils/100 WBC (Bld) 73.6 % Normal [facility] Comment on above: Performed By: #### C DONG, 3039-12, , CBCA #### [facility] ([id number]) [address] [place] [address] 69129 Platelet mean volume (Bld) [Entitic vol] 8.3 fL Normal 7-12 [facility] Comment on above: Performed By: #### C DONG, 3039-12, , CBCA #### [facility] ([id number]) [address] [place] [address] 26704 Platelets (Bld) [#/Vol] 297 10*3/uL Normal 150-450 [facility] Comment on above: Performed By: #### C DONG, 3039-12, 00027-4, CBCA #### [facility] ([id number]) [address] [place] [address] 51007 RBC COUNT 4.58 X10E12/L Normal 3.80-5.20 [facility] Comment on above: Performed By: #### C DONG, 3, , CBCA #### [facility] ([id number]) [address] [place] [address] 43087 WBC (Bld) [#/Vol] 11.4 10*3/uL High 4.0-11.0 [facility] Comment on above: Performed By: #### C DONG, 3039-12, , CBCA #### [facility] ([id number]) [address] [place] [address] 77364 COMPREHENSIVE METABOLIC PANE Carlin 02-28-2024 Albumin [Mass/Vol] 4.0 g/dL Normal 3.2-5.3 [facility] Comment on above: Performed By: #### C DONG, 3039-12, , CBCA #### [facility] ([id number]) [address] [place] [address] 65922 ALP [Catalytic activity/Vol] 87 U/L Normal 39-130 [facility] Comment on above: Performed By: #### C DONG, 3039-12, , CBCA #### [facility] ([id number]) [address] [place] [address] 22934 ALT [Catalytic activity/Vol] 20 U/L Normal 0-31 [facility] Comment on above: Performed By: #### C DONG, 3039-12, , CBCA #### [facility] ([id number]) [address] [place] [address] 88227 Anion gap [Moles/Vol] 11 mmol/L Normal 5-15 [facility] Comment on above: Performed By: #### C DONG, 3039-12, , CBCA #### [facility] ([id number]) [address] [place] [address] 11644 AST [Catalytic activity/Vol] 27 U/L Normal 0-41 [facility] Comment on above: Performed By: #### C DONG, 3039-12, , CBCA #### [facility] ([id number]) [address] [place] [address] 57752 Bilirubin [Mass/Vol] 0.8 mg/dL Normal 0.3-1.2 [facility] Comment on above: Result Comment: RESU LTS QUESTIONABLE DUE TO HEMOLYSIS Performed By: #### C DONG, 3039-12, , CBCA #### [facility] ([id number]) [address] [place] [address] 35616 Calcium [Mass/Vol] 8.5 mg/dL Normal 8.5-10.5 [facility] Comment on above: Performed By: #### C DONG, 3039-12, , CBCA #### [facility] ([id number]) [address] [place] [address] 18296 Chloride [Moles/Vol] 106 mmol/L Normal 98-109 [facility] Comment on above: Performed By: #### C DONG, 3039-12, , CBCA #### [facility] ([id number]) [address] [place] [address] 31621 CO2 [Moles/Vol] 18 mmol/L Low 22-32 [facility] Comment on above: Performed By: #### C DONG, 3039-12, , CBCA #### [facility] ([id number]) [address] [place] [address] 14667 Creatinine [Mass/Vol] 0.60 mg/dL Normal 0.40-1.00 [facility] Comment on above: Result Comment: METH OD TRACEABLE TO IDMS STANDARD Performed By: #### C DONG, 3039-12, , CBCA #### [facility] ([id number]) [address] [place] [address] 51551 eGFR (CKD-EPI) NON-RACE DEPENDENT >90 Normal >59 [facility] Comment on above: Result Comment: Reported eGFR is based on the CKD-EPI 2020 equation that does not use a race coefficient. Performed By: #### C DONG, 3039-12, , CBCA #### [facility] ([id number]) [address] [place] [address] 04936 Glucose [Mass/Vol] 84 mg/dL Normal 65-99 [facility] Comment on above: Performed By: #### C DONG, 3039-12, , CBCA #### [facility] ([id number]) [address] [place] [address] 54138 Potassium [Moles/Vol] 4.5 mmol/L Normal 3.5-5.0 [facility] Comment on above: Result Comment: SPEC IMEN HEMOLYZED, RESULTS INCREASED Performed By: #### C DONG, 3039-12, , CBCA #### [facility] ([id number]) [address] [place] [address] 12007 Protein [Mass/Vol] 7.8 g/dL Normal 6.0-8.0 [facility] Comment on above: Performed By: #### C DONG, 3039-12, , CBCA #### [facility] ([id number]) [address] [place] [address] 63275 Sodium [Moles/Vol] 135 mmol/L Normal 134-146 [facility] Comment on above: Performed By: #### C DONG, 3039-12, , CBCA #### [facility] ([id number]) [address] [place] [address] Urea nitrogen [Mass/Vol] 12 mg/dL Normal 5-23 [facility] Comment on above: Performed By: #### C MP, 3040-3, 47333-8, CBCA #### [facility] ([id number]) [address] [place] [address] ABDOMEN AND PELVIS W CONT on [...] Crawford MD on 02/28/2024 3:45 AM Normal [facility] HCG ( test) Ql (U)o n 02-28-2024 Beta HCG ( test) Ql (U) Negative Normal NEG [facility] Comment on above: Performed By: #### 2 106-3 #### [facility] ([id number]) [address] [place] [address] 29195 LIPASEon 02-28-2024 Lipase [Catalytic activity/Vol] 28 U/L Normal 17-40 [facility] Comment on above: Performed By: #### C DONG, 3040-3, , CBCA #### [facility] ([id number]) [address] [place] [address] 69760 MAGNESIUMon 02-28-2024 Magnesium [Mass/Vol] 2.1 mg/dL Normal 1.8-2.6 [facility] Comment on above: Performed By: #### C MP, 3040-3, 84091-4, CBCA #### [facility] ([id number]) [address] [place] [address] 66569 URN MACROSCOPIC NURon 2023 BILIRUBIN MOLLY Negative Normal NEG [facility] Comment on above: Performed By: #### N UM #### [facility] ([id number]) [address] [place] [address] 24828 BLOOD/HGB MOLLY Trace Abnormal NEG [facility] Comment on above: Performed By: #### N UM #### [facility] ([id number]) [address] [place] [address] [place] [address] GLUCOSE MOLLY Negative Normal NEG [facility] Comment on above: Performed By: #### N UM #### [facility] ([id number]) [address] [place] [address] 00419 KETONES MOLLY Negative Normal NEG [facility] Comment on above: Performed By: #### N UM #### [facility] ([id number]) [address] [place] [address] 21505 LEUKOCYTE ESTERASE MOLLY Negative Normal NEG [facility] Comment on above: Performed By: #### N UM #### [facility] ([id number]) [address] [place] [address] 78542 NITRITE MOLLY Negative Normal NEG [facility] Comment on above: Performed By: #### N UM #### [facility] ([id number]) [address] [place] [address] 29421 PH MOLLY 5.5 Normal 5.0-8.5 [facility] Comment on above: Performed By: #### N UM #### [facility] ([id number]) [address] [place] [address] 96130 PROTEIN MOLLY >=300 Abnormal NEG [facility] Comment on above: Performed By: #### N UM #### [facility] ([id number]) [address] [place] [address] 31316 SPECIFIC GRAVITY MOLLY >=1.030 Normal 1.003-1.035 [facility] Comment on above: Performed By: #### N UM #### [facility] ([id number]) [address] [place] [address] 48398 UROBILINOGEN MOLLY 0.2 eu/dL Normal <1.1 [facility] Comment on above: Performed By: #### N UM #### [facility] ([id number]) [address] [place] [address] 88457 PRBC LEUKOREDUCEDon 12-25-19 23 ABO and Rh group Nom (Bld) Cross Match Result Compatible Unit Blood Type O Pos Unit Number [id number] Status Information Transfused Product ID Red Blood Cells Product Code [id number] Cross Match Result Compatible Unit Blood Type O Pos Unit Number [id number] Status Information Transfused Product ID Red Blood Cells Product Code [id number] Normal [facility] Comment on above: Performed By: #### P RBC ####[facility] [address] [place], [place] [address]Dr. Benoit Diggs CBC AUTO DIFFon 12-21-2022 BASO # 0.1 103/ul Normal 0.0-0.1 [facility] Comment on above: Performed By: #### C BC ####[facility] [address] [place], [place] [address]Dr. Benoit Diggs Basophils/100 WBC (Bld) 1.2 % Normal 0.2-2.0 [facility] Comment on above: Performed By: #### C BC ####[facility] [address] [place] [address]Dr. Benoit Diggs EO # 0.4 103/ul Normal 0.0-0.7 [facility] Comment on above: Performed By: #### C BC ####[facility] [address] [place], [place] [address]Dr. Benoit Diggs Eosinophils/100 WBC (Bld) 4.5 % Normal 0.9-7.0 [facility] Comment on above: Performed By: #### C BC ####[facility] [address] [place], [place] [address]Dr. Benoit Diggs Erythrocyte distribution width (RBC) [Ratio] 16.6 % Critically high 11.0-15.0 [facility] Comment on above: Performed By: #### C BC ####[facility] [address] [place], [place] [address]Dr. Benoit Diggs Hematocrit (Bld) [Volume fraction] 40.3 % Normal 36.0-48.0 [facility] Comment on above: Performed By: #### C BC ####[facility] Q[address] [place], [place] [address]Dr. Benoit Diggs Hemoglobin (Bld) [Mass/Vol] 12.6 g/dL Normal 12.0-16.0 [facility] Comment on above: Performed By: #### C BC ####[facility] [address] [place], [place] [address]Dr. Benoit Diggs IG # 0.04 10e3/ul Critically high 0.00-0.03 [facility] Comment on above: Performed By: #### C BC ####[facility] [address] [place], [place] [address]Dr. Benoit Diggs IG % 0.5 % Normal 0.0-0.5 [facility] Comment on above: Performed By: #### C BC ####[facility] [address] [place], [place] [address]Dr. Karyaurora Diggs LYMPH # 3.0 103/ul Normal 1.2-3.8 [facility] Comment on above: Performed By: #### C BC ####[facility] [address] [place] [address]Dr. Benoit Dontae Lymphocytes/100 WBC (Bld) 36.0 % Normal 20.5-60.0 [facility] Comment on above: Performed By: #### C BC ####[facility] [address] [place] [address]Dr. Karyaurora Diggs MANUAL DIFF REQ NO Normal [facility] Comment on above: Performed By: #### C BC ####[facility] [address] [place] [address]Dr. Benoit Dontae MCH (RBC) [Entitic mass] 25.3 pg Critically low 26.7-34.0 [facility] Comment on above: Performed By: #### C BC ####[facility] [address] [place], [place] [address]Dr. Karyaurora Diggs MCHC (RBC) [Mass/Vol] 31.3 g/dL Normal 29.9-35.2 [facility] Comment on above: Performed By: #### C BC ####[facility] [address] [place], [place] [address]Dr. Karyaurora Diggs MCV (RBC) [Entitic vol] 80.9 fL Critically low 81.0-99.0 [facility] Comment on above: Performed By: #### C BC ####[facility] Ofys[address] [place], [place] [address]Dr. Benoit Diggs MONO # 0.4 103/ul Normal 0.3-0.8 [facility] Comment on above: Performed By: #### C BC ####[facility] F[address] [place], [place] [address]Dr. Karyaurora Diggs Monocytes/100 WBC (Bld) 4.8 % Normal 1.7-12.0 [facility] Comment on above: Performed By: #### C BC ####[facility] [address] [place], [place] [address]Dr. Benoit Diggs NEUT # 4.4 103/ul Normal 1.4-6.5 [facility] [facility] Comment on above: Performed By: #### C BC ####[facility] [address] [place] [address]Dr. Benoit Diggs Neutrophils/100 WBC (Bld) 53.0 % Normal 43.0-75.0 [facility] Comment on above: Performed By: #### C BC ####[facility] I[address]yixlr[address] [place] [address]Dr. Benoit Diggs Platelet mean volume (Bld) [Entitic vol] 10.8 fL Normal 9.5-13.5 [facility] Comment on above: Performed By: #### C BC ####[facility] Ddqiyygw[address] [place], [place] [address]Dr. Benoit Diggs PLT 410 103/ul Normal 150-450 [facility] Comment on above: Performed By: #### C BC ####[facility] Ppidmzgshb[address] [place], [place] [address]Dr. Benoit Diggs RBC 4.98 106/ul Normal 4.20-5.40 [facility] Comment on above: Performed By: #### C BC ####[facility] Ulpgmqelsi[address] [place], [place] [address]Dr. Benoit Diggs WBC 8.3 103/ul Normal 4.0-11.0 [facility] Comment on above: Performed By: #### C BC ####[facility] Kwklqgjvli[address] [place], [place] [address]Dr. Benoit Diggs GLYCOHEMOGLOBIN A1Con 2022 ADA RECOMMENDATION SEE BELOW Normal [facility] Comment on above: Result Comment: ADA RECOMMENDED LIMIT 4.0 - 6.0 ADA THERAPEUTIC TARGET < 7.0 ACTION SUGGESTED > 7.0 Performed By: #### A 1C ####[facility] Yzywfqmwo[address] [place], [place] [address]Dr. Benoit Diggs Glucose [Mass/Vol] 100 mg/dL Normal [facility] Comment on above: Performed By: #### A 1C ####[facility] Bbowraylun[address] [place], [place] [address]Dr. Benoit Diggs HbA1c (Bld) [Mass fraction] 5.1 % Normal 4.5-6.2 [facility] Comment on above: Performed By: #### A 1C ####[facility] Yflcagvmfz[address] [place] [id number]. Benoit Diggs LIPID PROFILEon 12-21-2022 CHOL-HDL RATIO NORM SEE BELOW Normal [facility] Comment on above: Result Comment: 3.3 - 4.4 LOW RISK 4.4 - 7.1 AVERAGE RISK 7.1 - 11.0 MODERATE RISK >11.0 HIGH RISK Performed By: #### L IVER, LIPID, BMP, TSH ####[facility] [address]ukcapmjij[address] [place] [address]Dr. Benoit Diggs Cholesterol [Mass/Vol] 184 mg/dL Normal <=200 [facility] Comment on above: Performed By: #### L IVER, LIPID, BMP, TSH ####[facility] Bihojpmaxf[address] [place] [address]Dr. Benoit Diggs Cholesterol in HDL [Mass/Vol] 52 mg/dL Normal 40-60 [facility] Comment on above: Performed By: #### L IVER, LIPID, BMP, TSH ####[facility] Uhvkzbimjb[address] [place] [address]Dr. Benoit Diggs Cholesterol in LDL [Mass/Vol] 114.8 mg/dL Normal [facility] Comment on above: Performed By: #### L IVER, LIPID, BMP, TSH ####[facility] Ptdcrfqrmo[address] [place] [address]Dr. Benoit Diggs Cholesterol.total/Ch olesterol in HDL [Mass ratio] 3.5 {ratio} Normal [facility] Comment on above: Performed By: #### L IVER, LIPID, BMP, TSH ####[facility] Tkgacbwpbx[address] [place] [address]Dr. Karylan Diggs HDL NORMAL > or = 60 mg/dl - LO W CARDIOVASCULAR RISK <40 mg/dl - HIGH CARDIOVASCULAR RISK Normal [facility] Comment on above: Performed By: #### L IVER, LIPID, BMP, TSH ####[facility] Kxdldypsvb[address] [place] [address]Dr. Benoit Diggs LDL CALC NORMAL SEE BELOW Normal [facility] Comment on above: Result Comment: <100 mg/dl OPTIMAL 100 - 129 mg/dl NEAR OR ABOVE OPTIMAL 130 - 159 mg/dl BORDERLINE HIGH 160 - 189 mg/dl HIGH >190 mg/dl VERY HIGH Performed By: #### L IVER, LIPID, BMP, TSH ####[facility] Rfbnulhbla[address] [place] [address]Dr. Benoit Diggs Triglyceride [Mass/Vol] 86 mg/dL Normal <=150 [facility] Comment on above: Performed By: #### L IVER, LIPID, BMP, TSH ####[facility] Wwbopuhilb[address] [place] [address]Dr. Benoit Diggs VLDL CALC 17.2 mg/dL Normal [facility] Comment on above: Performed By: #### L IVER, LIPID, BMP, TSH ####[facility] Pcbroptoec[address] [place] [address]Dr. Benoit Diggs LIVER PROFILEon 12-21-2022 Albumin [Mass/Vol] 3.3 g/dL Critically low 3.4-5.0 [facility] Comment on above: Performed By: #### L IVER, LIPID, BMP, TSH ####[facility] Euowvnzyml[address] [place] [address]Dr. Benoit Diggs Albumin/Globulin [Mass ratio] 0.8 {ratio} Normal [facility] Comment on above: Performed By: #### L IVER, LIPID, BMP, TSH ####[facility] Orhzkuzkpg[address] [place] [address]Dr. Benoit Diggs ALP [Catalytic activity/Vol] 110 U/L Normal 46-116 [facility] Comment on above: Performed By: #### L IVER, LIPID, BMP, TSH ####[facility] Kjtmiypmzo[address] [place] [address]Dr. Benoit Diggs ALT [Catalytic activity/Vol] 25 U/L Normal 14-59 [facility] Comment on above: Performed By: #### L IVER, LIPID, BMP, TSH ####[facility] Habdizeurk[address] [place] [address]Dr. Benoit Diggs AST [Catalytic activity/Vol] 20 U/L Normal 15-37 [facility] Comment on above: Performed By: #### L IVER, LIPID, BMP, TSH ####[facility] Zwohsekvow[address] [place] [address]Dr. Benoit Diggs BILI, CONJUGATED 0.1 mg/dL Normal 0.0-0.2 The [facility] Comment on above: Performed By: #### L IVER, LIPID, BMP, TSH ####[facility] Bhofddyzqp[address] [place] [address]Dr. Benoit Diggs Bilirubin [Mass/Vol] 0.4 mg/dL Normal 0.2-1.0 [facility] Comment on above: Performed By: #### L IVER, LIPID, BMP, TSH ####[facility] Rvoiznbyeg[address] [place] [address]Dr. Benoit Diggs Globulin (S) [Mass/Vol] 3.9 g/dL Normal [facility] Comment on above: Performed By: #### L IVER, LIPID, BMP, TSH ####[facility] Cppgqudmhy[address] [place] [address]Dr. Benoit Diggs Protein [Mass/Vol] 7.2 g/dL Normal 6.4-8.2 [facility] Comment on above: Performed By: #### L IVER, LIPID, BMP, TSH ####[facility] Wuhcwdkwid[address] [place] [address]Dr. Benoit Diggs PROF CHEM 8 (BAS METB)on Anion gap [Moles/Vol] 13.2 mmol/L Normal [facility] Comment on above: Performed By: #### C BC #### [facility] [address] [address] [address] Benoit Diggs Calcium [Mass/Vol] 9.2 mg/dL Normal 8.5-10.1 [facility] Comment on above: Performed By: #### C BC #### [facility] [address] [address] [address] Benoit Diggs Chloride [Moles/Vol] 108 mmol/L Critically high 98-107 [facility] Comment on above: Performed By: #### C BC #### [facility] [address] [address] [address] Benoit Diggs CO2 [Moles/Vol] 27.9 mmol/L Normal 21.0-32.0 [facility] Comment on above: Performed By: #### C BC #### [facility] [address] [place] [address] Dr. Benoit Diggs Creatinine [Mass/Vol] 0.62 mg/dL Normal 0.55-1.02 [facility] Comment on above: Performed By: #### C BC #### [facility] [address] [place] [address] Dr. Benoit Diggs EGFR-AF ZIMBABWEAN >60 Normal >=60 [facility] Comment on above: Performed By: #### C BC #### [facility] [address] [place] [address] Dr. Benoit Diggs EGFR-NON AF ZIMBABWEAN >60 Normal >=60 [facility] Comment on above: Performed By: #### C BC #### [facility] [address] [place] [address] Dr. Benoit Diggs Glucose [Mass/Vol] 92 mg/dL Normal 74-106 [facility] Comment on above: Performed By: #### C BC #### [facility] [address] [place] [address] Dr. Benoit Diggs Potassium [Moles/Vol] 4.1 mmol/L Normal 3.5-5.1 [facility] Comment on above: Performed By: #### C BC #### [facility] [address] [place] [address] Dr. Benoit Diggs Sodium [Moles/Vol] 145 mmol/L Normal 136-145 [facility] Comment on above: Performed By: #### C BC #### [facility] [address] [place] [address] Dr. Benoit Diggs Urea nitrogen [Mass/Vol] 8.0 mg/dL Normal 7.0-18.0 [facility] Comment on above: Performed By: #### C BC #### [facility] [address] [place] [address] Dr. Benoit Diggs Urea nitrogen/Creatinine [Mass ratio] 12.9 mg/mg Normal [facility] Comment on above: Performed By: #### C BC #### [facility] [address] [place] [address] Dr. Benoit Diggs TSHon 12-21-2022 TSH 1.318 uIU/mL Normal 0.358-3.740 [facility] Comment on above: Performed By: #### C BC #### [facility] [address] [place] [address] Dr. Benoit Diggs CBC AUTO DIFFon 12-04-2022 BASO # 0.1 103/ul Normal 0.0-0.1 [facility] Comment on above: Performed By: #### C BC #### [facility] [address] [place] [address] Dr. Benoit Diggs Basophils/100 WBC (Bld) 0.7 % Normal 0.2-2.0 [facility] Comment on above: Performed By: #### C BC #### [facility] [address] [place] [address] Dr. Benoit Diggs EO # 0.4 103/ul Normal 0.0-0.7 [facility] Comment on above: Performed By: #### C BC #### [facility] [address] [place] [address] Dr. Benoit Diggs Eosinophils/100 WBC (Bld) 3.8 % Normal 0.9-7.0 [facility] Comment on above: Performed By: #### C BC #### [facility] [address] [place] [address] Dr. Benoit Diggs Erythrocyte distribution width (RBC) [Ratio] 15.2 % Critically high 11.0-15.0 [facility] Comment on above: Performed By: #### C BC #### [facility] [address] [place] [address] Dr. Benoit Diggs Hematocrit (Bld) [Volume fraction] 28.7 % Critically low 36.0-48.0 [facility] Comment on above: Performed By: #### C BC #### [facility] [address] [address] [address] Benoit Diggs Hemoglobin (Bld) [Mass/Vol] 9.1 g/dL Critically low 12.0-16.0 [facility] Comment on above: Performed By: #### C BC #### [facility] [address] [place] [address] Dr. Benoit Diggs IG # 0.05 10e3/ul Critically high 0.00-0.03 [facility] Comment on above: Performed By: #### C BC #### [facility] [address] [place] [address] Dr. Benoti Diggs IG % 0.5 % Normal 0.0-0.5 [facility] Comment on above: Performed By: #### C BC #### [facility] [address] [place] [address] Dr. Benoit Diggs LYMPH # 3.3 103/ul Normal 1.2-3.8 [facility] Comment on above: Performed By: #### C BC #### [facility] [address] [place] [address] Dr. Benoit Diggs Lymphocytes/100 WBC (Bld) 31.8 % Normal 20.5-60.0 [facility] Comment on above: Performed By: #### C BC #### [facility] [address] [place] [address] Dr. Benoit Diggs MANUAL DIFF REQ NO Normal [facility] Comment on above: Performed By: #### C BC #### [facility] [address] [place] [address] Dr. Benoit Diggs MCH (RBC) [Entitic mass] 25.3 pg Critically low 26.7-34.0 [facility] Comment on above: Performed By: #### C BC #### [facility] [address] [place] [address] Dr. Benoit Diggs MCHC (RBC) [Mass/Vol] 31.7 g/dL Normal 29.9-35.2 [facility] Comment on above: Performed By: #### C BC #### [facility] [address] [place] [address] Dr. Benoit Diggs MCV (RBC) [Entitic vol] 79.9 fL Critically low 81.0-99.0 [facility] Comment on above: Performed By: #### C BC #### [facility] [address] [address] [address] Benoit Diggs MONO # 0.7 103/ul Normal 0.3-0.8 [facility] Comment on above: Performed By: #### C BC #### [facility] [address] [address] [address] Benoit Diggs Monocytes/100 WBC (Bld) 7.2 % Normal 1.7-12.0 [facility] Comment on above: Performed By: #### C BC #### [facility] [address] [place] [address] Dr. Benoit Diggs NEUT # 5.8 103/ul Normal 1.4-6.5 [facility] Comment on above: Performed By: #### C BC #### [facility] [address] [place] [address] Dr. Benoit Diggs Neutrophils/100 WBC (Bld) 56.0 % Normal 43.0-75.0 [facility] Comment on above: Performed By: #### C BC #### [facility] [address] [place] [address] Dr. Benoit Diggs Platelet mean volume (Bld) [Entitic vol] 10.5 fL Normal 9.5-13.5 [facility] Comment on above: Performed By: #### C BC #### [facility] [address] [place] [address] Dr. Benoit Diggs PLT 152 103/ul Normal 150-450 [facility] Comment on above: Performed By: #### C BC #### [facility] [address] [place] [address] Dr. Benoit Diggs RBC 3.59 106/ul Critically low 4.20-5.40 [facility] Comment on above: Performed By: #### C BC #### [facility] [address] [place] [address] Dr. Benoit Diggs WBC 10.3 103/ul Normal 4.0-11.0 [facility] Comment on above: Performed By: #### C BC #### [facility] [address] [place] [address] Dr. Benoit Diggs CBC AUTO DIFFon 12-03-2022 BASO # 0.0 103/ul Normal 0.0-0.1 [facility] Comment on above: Performed By: #### C BC #### [facility] [address] [place] [address] Dr. Benoit Diggs Basophils/100 WBC (Bld) 0.4 % Normal 0.2-2.0 [facility] Comment on above: Performed By: #### C BC #### [facility] [address] [place] [address] Dr. Benoit Diggs EO # 0.3 103/ul Normal 0.0-0.7 [facility] Comment on above: Performed By: #### C BC #### [facility] [address] [place] [address] Dr. Benoit Diggs Eosinophils/100 WBC (Bld) 3.1 % Normal 0.9-7.0 [facility] Comment on above: Performed By: #### C BC #### [facility] [address] [place] [address] Dr. Benoit Diggs Erythrocyte distribution width (RBC) [Ratio] 15.5 % Critically high 11.0-15.0 [facility] Comment on above: Performed By: #### C BC #### [facility] [address] [place] [address] Dr. Benoit Diggs Hematocrit (Bld) [Volume fraction] 22.0 % Critically low 36.0-48.0 [facility] Comment on above: Performed By: #### C BC #### [facility] [address] [place] [address] Dr. Benoit Diggs Hemoglobin (Bld) [Mass/Vol] 6.8 g/dL Critically low 12.0-16.0 [facility] Comment on above: Performed By: #### C BC #### [facility] [address] [place] [address] Dr. Benoit Diggs IG # 0.05 10e3/ul Critically high 0.00-0.03 [facility] Comment on above: Performed By: #### C BC #### [facility] [address] [place] [address] Dr. Benoit Diggs IG % 0.5 % Normal 0.0-0.5 [facility] Comment on above: Performed By: #### C BC #### [facility] [address] [place] [address] Dr. Benoit Diggs LYMPH # 2.9 103/ul Normal 1.2-3.8 [facility] Comment on above: Performed By: #### C BC #### [facility] [address] [place] [address] Dr. Benoit Diggs Lymphocytes/100 WBC (Bld) 31.0 % Normal 20.5-60.0 [facility] Comment on above: Performed By: #### C BC #### [facility] [address] [place] [address] Dr. Benoit Diggs MANUAL DIFF REQ NO Normal [facility] Comment on above: Performed By: #### C BC #### [facility] [address] [place] [address] Dr. Benoit Diggs MCH (RBC) [Entitic mass] 24.6 pg Critically low 26.7-34.0 [facility] Comment on above: Performed By: #### C BC #### [facility] [address] [place] [address] Dr. Benoit Diggs MCHC (RBC) [Mass/Vol] 30.9 g/dL Normal 29.9-35.2 [facility] Comment on above: Performed By: #### C BC #### [facility] [address] [place] [address] Dr. Benoit Diggs MCV (RBC) [Entitic vol] 79.7 fL Critically low 81.0-99.0 [facility] Comment on above: Performed By: #### C BC #### [facility] [address] [place] [address] Dr. Benoit Diggs MONO # 0.8 103/ul Normal 0.3-0.8 [facility] Comment on above: Performed By: #### C BC #### [facility] [address] [place] [address] Dr. Benoit Diggs Monocytes/100 WBC (Bld) 7.9 % Normal 1.7-12.0 [facility] Comment on above: Performed By: #### C BC #### [facility] [address] [place] [address] Dr. Benoit Diggs NEUT # 5.4 103/ul Normal 1.4-6.5 [facility] Comment on above: Performed By: #### C BC #### [facility] [address] [place] [address] Dr. Benoit Diggs Neutrophils/100 WBC (Bld) 57.1 % Normal 43.0-75.0 [facility] Comment on above: Performed By: #### C BC #### [facility] [address] [place] [address] Dr. Benoit Diggs Platelet mean volume (Bld) [Entitic vol] 11.9 fL Normal 9.5-13.5 [facility] Comment on above: Performed By: #### C BC #### [facility] [address] [place] [address] Dr. Benoit Diggs PLT 180 103/ul Normal 150-450 [facility] Comment on above: Performed By: #### C BC #### [facility] [address] [place] [address] Dr. Benoit Diggs RBC 2.76 106/ul Critically low 4.20-5.[address] [facility] Comment on above: Performed By: #### C BC #### [facility] [address] [place] [address] Dr. Benoit Diggs WBC 9.5 103/ul Normal 4.0-11.0 [facility] Comment on above: Performed By: #### C BC #### [facility] [address] [place] [address] Dr. Benoit Diggs AMNISUREon 12-01-2022 AMNISURE Negative Normal NEGATIVE [facility] Comment on above: Performed By: #### C BC #### [facility] [address] [place], [place] [address] Dr. Benoit Diggs CBC AUTO DIFFon 12-01-2022 BASO # 0.1 103/ul Normal 0.0-0.1 [facility] Comment on above: Performed By: #### C BC ####[facility] [address] [place] [id number] Diggs Basophils/100 WBC (Bld) 0.6 % Normal 0.2-2.0 [facility] Comment on above: Performed By: #### C BC ####[facility] [address] [place] [address]DrJael Diggs EO # 0.4 103/ul Normal 0.0-0.7 [facility] Comment on above: Performed By: #### C BC ####[facility] Qrqbprghoh[address] [address]DrJael Diggs Eosinophils/100 WBC (Bld) 3.5 % Normal 0.9-7.0 [facility] Comment on above: Performed By: #### C BC ####[facility] [address]pnywh[address] [place] [id number] Diggs Erythrocyte distribution width (RBC) [Ratio] 15.4 % Critically high 11.0-15.0 [facility] Comment on above: Performed By: #### C BC ####[facility] [address]qbwnap[address] [place] [id number] Diggs Hematocrit (Bld) [Volume fraction] 26.4 % Critically low 36.0-48.0 [facility] Comment on above: Performed By: #### C BC ####[facility] [address]fdgyk[address] [place] [id number] Diggs Hemoglobin (Bld) [Mass/Vol] 8.4 g/dL Critically low 12.0-16.0 [facility] Comment on above: Performed By: #### C BC ####[facility] [address]lrxyy[address] [place] [id number] Diggs IG # 0.04 10e3/ul Critically high 0.00-0.03 [facility] Comment on above: Performed By: #### C BC ####[facility] [address]levgoe[address] [place] [id number]. Karyaurora Diggs IG % 0.4 % Normal 0.0-0.5 [facility] Comment on above: Performed By: #### C BC ####[facility] Edbfvyldtx[address] [place] [id number]. Benoit Dontae LYMPH # 2.8 103/ul Normal 1.2-3.8 [facility] Comment on above: Performed By: #### C BC ####[facility] Wckdxqousf[address] [place] [id number] Karyaurora Diggs Lymphocytes/100 WBC (Bld) 26.9 % Normal 20.5-60.0 [facility] Comment on above: Performed By: #### C BC ####[facility] Rmbkxxkadj[address] [place] [id number] Diggs MANUAL DIFF REQ NO Normal [facility] Comment on above: Performed By: #### C BC ####[facility] Z[address]ufudqsp[address] [phone]. Benoit Dontae MCH (RBC) [Entitic mass] 24.7 pg Critically low 26.7-34.0 [facility] Comment on above: Performed By: #### C BC ####[facility] Bezh[address]kbmf[address] [place] [id number] Benoit Dontae MCHC (RBC) [Mass/Vol] 31.8 g/dL Normal 29.9-35.2 [facility] Comment on above: Performed By: #### C BC ####[facility] S[address]fyiojx[address] [place] [id number] Benoit Dontae MCV (RBC) [Entitic vol] 77.6 fL Critically low 81.0-99.0 [facility] Comment on above: Performed By: #### C BC ####[facility] [address]vcjme[address] [place] [id number] Diggs MONO # 0.7 103/ul Normal 0.3-0.8 [facility] Comment on above: Performed By: #### C BC ####[facility] [id number] [id number]. Benoit Diggs Monocytes/100 WBC (Bld) 6.2 % Normal 1.7-12.0 [facility] Comment on above: Performed By: #### C BC ####[facility] [id number] [id number]. Benoit Diggs NEUT # 6.5 103/ul Normal 1.4-6.5 [facility] Comment on above: Performed By: #### C BC ####[facility] [id number] [id number]. Benoit Diggs Neutrophils/100 WBC (Bld) 62.4 % Normal 43.0-75.0 [facility] Comment on above: Performed By: #### C BC ####[facility] [id number] [id number]. Bneoit Diggs Platelet mean volume (Bld) [Entitic vol] 11.0 fL Normal 9.5-13.5 [facility] Comment on above: Performed By: #### C BC ####[facility] [id number] [id number]. Benoit Diggs PLT 215 103/ul Normal 150-450 [facility] Comment on above: Performed By: #### C BC ####[facility] [id number] [id number]. Benoit Diggs RBC 3.40 106/ul Critically low 4.20-5.40 [facility] Comment on above: Performed By: #### C BC ####[facility] [id number] [id number]. Benoit Diggs WBC 10.4 103/ul Normal 4.0-11.0 [facility] Comment on above: Performed By: #### C BC ####[facility] [id number] [id number]. Benoit Diggs DRUG SCREEN RAPID (URINE)on 12-01-2022 AMP Negative Normal NEGATIVE [facility] Comment on above: Performed By: #### C BC #### [facility] [address] [place] [address] Dr. Benoit Diggs BAR Negative Normal NEGATIVE [facility] Comment on above: Performed By: #### C BC #### [facility] [address] [place] [address] Dr. Benoit Diggs BUP Negative Normal NEGATIVE [facility] Comment on above: Performed By: #### C BC #### [facility] [address] [place] [address] Dr. Benoit Diggs BZO Negative Normal NEGATIVE [facility] Comment on above: Performed By: #### C BC #### [facility] [address] [place] [address] Dr. Benoit Diggs JOSE MANUEL Negative Normal NEGATIVE [facility] Comment on above: Performed By: #### C BC #### [facility] [address] [place] [address] Dr. Benoit Diggs CUT-OFFS SEE BELOW Normal [facility] Comment on above: Result Comment: AMP (Amphetamine): [...] ng/mL Performed By: #### C BC #### [facility] [address] [place] [address] Dr. Benoit Diggs DRUG CUT HEADER DRUG CLASS TEST SYSTEM CUT-OFF CONCENTRATIONS ARE FOLLOWS: Normal [facility] Comment on above: Performed By: #### C BC #### [facility] [address] [place] [address] Dr. Benoit Diggs mAMP Negative Normal NEGATIVE [facility] Comment on above: Performed By: #### C BC #### [facility] [address] [place] [address] Dr. Benoit Diggs MTD Negative Normal NEGATIVE [facility] Comment on above: Performed By: #### C BC #### [facility] [address] [place] [address] Dr. Benoit Diggs OPI Negative Normal NEGATIVE [facility] Comment on above: Performed By: #### C BC #### [facility] [address] [place] [address] Dr. Benoit Diggs OXY Negative Normal NEGATIVE [facility] Comment on above: Performed By: #### C BC #### [facility] [address] [place] [address] Dr. Benoit Diggs PCP Negative Normal NEGATIVE [facility] Comment on above: Performed By: #### C BC #### [facility] [address] [place] [address] Dr. Benoit Diggs PPX Negative Normal NEGATIVE [facility] Comment on above: Performed By: #### C BC #### [facility] [address] [place] [address] Dr. Benoit Diggs TCA Negative Normal NEGATIVE [facility] Comment on above: Performed By: #### C BC #### [facility] [address] [place] [address] Dr. Benoit Diggs THC Negative Normal NEGATIVE [facility] Comment on above: Performed By: #### C BC #### [facility] [address] [place] [address] Dr. Benoit Diggs TYPE AND SCREENon 12-01-2022 TYPE AND SCREEN Negative Normal [facility] Comment on above: Performed By: #### T NS #### [facility] [address] [place] [address] Dr. Benoit Diggs UA (CLEAN/CATCH) INSTRUMENT SPECIALIST/MICRO I F IND.on 12-01-2022 Bilirubin Ql (U) Negative Normal NEGATIVE [facility] Comment on above: Performed By: #### C BC #### [facility] [address] [place] [address] Dr. Benoit Diggs Clarity (U) CLEAR Normal CLEAR [facility] Comment on above: Performed By: #### C BC #### [facility] [address] [address] [address] Benoit Diggs Color (U) YELLOW Normal YELLOW [facility] Comment on above: Performed By: #### C BC #### [facility] [address] [place] [address] Dr. Benoit Diggs Glucose Ql (U) Negative Normal NEGATIVE [facility] Comment on above: Performed By: #### C BC #### [facility] [address] [place] [address] Dr. Benoit Diggs Hemoglobin Ql (U) Negative Normal NEGATIVE [facility] Comment on above: Performed By: #### C BC #### [facility] [address] [place] [address] Dr. Benoit Diggs Ketones Ql (U) Negative Normal NEGATIVE [facility] Comment on above: Performed By: #### C BC #### [facility] [address] [place] [address] Dr. Benoit Diggs LEUKOCYTES Negative Normal NEGATIVE [facility] Comment on above: Performed By: #### C BC #### [facility] [address] [place] [address] Dr. Benoit Diggs Nitrite Ql (U) Negative Normal NEGATIVE [facility] Comment on above: Performed By: #### C BC #### [facility] [address] [place] [address] Dr. Benoit Diggs pH (U) 6.0 [pH] Normal 5-9 [facility] Comment on above: Performed By: #### C BC #### [facility] [address] [place] [address] Dr. Benoit Diggs SPEC GRAVITY 1.010 Normal 1.005-<=1.025 [facility] Comment on above: Performed By: #### C BC #### [facility] [address] [place] [address] Dr. Benoit Diggs UA PROTEIN TRACE Normal NEGATIVE/ TRACE The [facility] Comment on above: Performed By: #### C BC #### [facility] [address] [place] [address] Dr. Benoit Diggs UR MICRO IND NOT INDICATED Normal [facility] Comment on above: Performed By: #### C BC #### [facility] [address] [place] [address] Dr. Benoit Diggs Urobilinogen Qn (U) 4 {Nadege'U}/dL Abnormal 0.2 - 1.0 [facility] Comment on above: Performed By: #### C BC #### [facility] [address] [place] [address] Dr. Benoit Diggs CULTURE URINEon 11-29-2022 CULTURE URINE Culture Observations : MODERATE GROWTH OF MIXED GENITAL RIZWAN. NO POTENTIAL PATHOGENS SEEN. Normal The [facility] Comment on above: Performed By: #### U RCX #### [facility] [address] [place] [address] Dr. Benoit Diggs UA (CLEAN/CATCH) INSTRUMENT SPECIALIST/MICRO I F IND.on 11-29-2022 Bilirubin Ql (U) SMALL Abnormal NEGATIVE [facility] Comment on above: Performed By: #### C BC #### [facility] [address] [place] [address] Dr. Benoit Diggs Clarity (U) CLEAR Normal CLEAR The [facility] Comment on above: Performed By: #### C BC #### [facility] [address] [place] [address] Dr. Benoit Diggs Color (U) DK. ORANGE Abnormal YELLOW The [facility] Comment on above: Performed By: #### C BC #### [facility] [address] [place] [address] Dr. Benoit Diggs Glucose Ql (U) Negative Normal NEGATIVE [facility] Comment on above: Performed By: #### C BC #### [facility] [address] [place] [address] Dr. Benoit Diggs Hemoglobin Ql (U) Negative Normal NEGATIVE The [facility] Comment on above: Performed By: #### C BC #### [facility] [address] [place] [address] Dr. Benoit Diggs Ketones Ql (U) TRACE Abnormal NEGATIVE [facility] Comment on above: Performed By: #### C BC #### [facility] [address] [place] [address] Dr. Benoit Diggs LEUKOCYTES SMALL Abnormal NEGATIVE [facility] Comment on above: Performed By: #### C BC #### [facility] [address] [place] [address] Dr. Benoit Diggs Nitrite Ql (U) Negative Normal NEGATIVE [facility] Comment on above: Performed By: #### C BC #### [facility] [address] [place] [address] Dr. Benoit Diggs pH (U) 5.5 [pH] Normal 5-9 [facility] Comment on above: Performed By: #### C BC #### [facility] [address] [place] [address] Dr. Benoit Diggs SPEC GRAVITY >=1.030 Abnormal 1.005-<=1.[address] [facility] Comment on above: Performed By: #### C BC #### [facility] [address] [place] [address] Dr. Benoit Diggs UA PROTEIN 100 mg/dl Abnormal NEGATIVE/ TRACE The [facility] Comment on above: Performed By: #### C BC #### [facility] [address] [place] [address] Dr. Benoit Diggs UR MICRO IND INDICATED Normal [facility] Comment on above: Performed By: #### C BC #### [facility] [address] [place] [address] Dr. Benoit Diggs Urobilinogen Qn (U) 8 {Nadege'U}/dL Abnormal 0.2 - 1.0 [facility] Comment on above: Performed By: #### C BC #### [facility] [address] [place] [address] Dr. Benoit Diggs URINE MICROSCOPIC ONLYon BACTERIA MODERATE Abnormal NONE SEEN The [facility] Comment on above: Performed By: #### C BC #### [facility] [address] [place] [address] Dr. Benoit Diggs Bacteria identified Cx Nom (U) INDICATED Normal [facility] Comment on above: Performed By: #### C BC #### [facility] [address] [place] [address] Dr. Benoit Diggs CAST NONE SEEN Normal NONE SEEN [facility] Comment on above: Performed By: #### C BC #### [facility] [address] [place] [address] Dr. Benoit Diggs Crystals LM Nom (Urine sed) NONE SEEN Normal NONE SEEN [facility] Comment on above: Performed By: #### C BC #### [facility] [address] [place] [address] Dr. Benoit Diggs Epithelial cells LM Ql (Urine sed) MANY Abnormal NONE SEEN /RARE The [facility] Comment on above: Performed By: #### C BC #### [facility] [address] [place] [address] Dr. Benoit Diggs MUCOUS SMALL Abnormal NONE SEEN The [facility] Comment on above: Performed By: #### C BC #### [facility] [address] [place] [address] Dr. Benoit Diggs RBC 5-10 Abnormal 0-2 [facility] Comment on above: Performed By: #### C BC #### [facility] [address] [place] [address] Dr. Benoit Diggs WBC 20-50 Abnormal NONE SEEN The [facility] Comment on above: Performed By: #### C BC #### [facility] [address] [place] [address] Dr. Benoit Diggs GROUP B STREP CULTUREon 10-22 S. agalactiae Ag Ql (Unsp spec) Culture Observations: NEGATIVE FOR GROUP B STREPTOCOCCUS. Normal The [facility] Comment on above: Performed By: #### G BSCX #### [facility] [address] [place] [address] Dr. Benoit Diggs CBC AUTO DIFFon 09-22-2022 BASO # 0.0 103/ul Normal 0.0-0.1 [facility] Comment on above: Performed By: #### C BC #### [facility] [address] [place] [address] Dr. Benoit Diggs Basophils/100 WBC (Bld) 0.3 % Normal 0.2-2.0 [facility] Comment on above: Performed By: #### C BC #### [facility] [address] [place] [address] Dr. Benoit Diggs EO # 0.1 103/ul Normal 0.0-0.7 [facility] Comment on above: Performed By: #### C BC #### [facility] [address] [place] [address] Dr. Benoit Diggs Eosinophils/100 WBC (Bld) 2.0 % Normal 0.9-7.0 [facility] Comment on above: Performed By: #### C BC #### [facility] [address] [place] [address] Dr. Benoit Diggs Erythrocyte distribution width (RBC) [Ratio] 12.7 % Normal 11.0-15.0 [facility] Comment on above: Performed By: #### C BC #### [facility] [address] [place] [address] Dr. Benoit Diggs Hematocrit (Bld) [Volume fraction] 30.6 % Critically low 36.0-48.0 [facility] Comment on above: Performed By: #### C BC #### [facility] [address] [place] [address] Dr. Benoit Diggs Hemoglobin (Bld) [Mass/Vol] 10.1 g/dL Critically low 12.0-16.0 [facility] Comment on above: Performed By: #### C BC #### [facility] [address] [place] [address] Dr. Benoit Diggs IG # 0.03 10e3/ul Normal 0.00-0.03 [facility] Comment on above: Performed By: #### C BC #### [facility] [address] [place] [address] Dr. Benoit Diggs IG % 0.5 % Normal 0.0-0.5 [facility] Comment on above: Performed By: #### C BC #### [facility] [address] [place] [address] Dr. Benoit Diggs LYMPH # 0.6 103/ul Critically low 1.2-3.8 [facility] Comment on above: Performed By: #### C BC #### [facility] [address] [place] [address] Dr. Benoit Diggs Lymphocytes/100 WBC (Bld) 10.7 % Critically low 20.5-60.0 [facility] Comment on above: Performed By: #### C BC #### [facility] [address] [place] [address] Dr. Benoit Diggs MANUAL DIFF REQ NO Normal [facility] Comment on above: Performed By: #### C BC #### [facility] [address] [place] [address] Dr. Benoit Diggs MCH (RBC) [Entitic mass] 28.9 pg Normal 26.7-34.0 [facility] Comment on above: Performed By: #### C BC #### [facility] [address] [place] [address] Dr. Benoit Diggs MCHC (RBC) [Mass/Vol] 33.0 g/dL Normal 29.9-35.2 [facility] Comment on above: Performed By: #### C BC #### [facility] [address] [place] [address] Dr. Benoit Diggs MCV (RBC) [Entitic vol] 87.4 fL Normal 81.0-99.0 [facility] Comment on above: Performed By: #### C BC #### [facility] [address] [place] [address] Dr. Benoit Diggs MONO # 0.6 103/ul Normal 0.3-0.8 [facility] Comment on above: Performed By: #### C BC #### [facility] [address] [place] [address] Dr. Benoit Diggs Monocytes/100 WBC (Bld) 10.9 % Normal 1.7-12.0 [facility] Comment on above: Performed By: #### C BC #### [facility] [address] [place] [address] Dr. Benoit Diggs NEUT # 4.4 103/ul Normal 1.4-6.5 [facility] Comment on above: Performed By: #### C BC #### [facility] [address] [address] [address] Benoit Diggs Neutrophils/100 WBC (Bld) 75.6 % Critically high 43.0-75.0 [facility] Comment on above: Performed By: #### C BC #### [facility] [address] [address] [address] Benoit Diggs Platelet mean volume (Bld) [Entitic vol] 10.9 fL Normal 9.5-13.5 [facility] Comment on above: Performed By: #### C BC #### [facility] [address] [address] [address] Benoit Diggs PLT 191 103/ul Normal 150-450 [facility] Comment on above: Performed By: #### C BC #### [facility] [address] [place] [address] Dr. Benoit Diggs RBC 3.50 106/ul Critically low 4.20-5.[address] [facility] Comment on above: Performed By: #### C BC #### [facility] [address] [address] [address] Benoit Diggs WBC 5.9 103/ul Normal 4.0-11.0 [facility] Comment on above: Performed By: #### C BC #### [facility] [id number] Benoit Diggs CULTURE URINEon 09-22-2022 CULTURE URINE Culture Observations : HEAVY GROWTH OF MIXED GENITAL RIZWAN. NO POTENTIAL PATHOGENS SEEN. Normal The [facility] Comment on above: Performed By: #### U RCX #### [facility] [address] [address] [address] Benoit Diggs ER URINE PROFILEon 2 Bilirubin Ql (U) Negative Normal NEGATIVE [facility] Comment on above: Performed By: #### H IV12 #### [facility] [address] [address] [address] Benoit Diggs Clarity (U) CLEAR Normal CLEAR [facility] Comment on above: Performed By: #### H IV12 #### [facility] [address] [address] [address] Benoit Diggs Color (U) YELLOW Normal YELLOW [facility] Comment on above: Performed By: #### H IV12 #### [facility] [address] [place] [address] Dr. Benoit VELA A micrscopic examination will be performed if indicated. Normal [facility] Comment on above: Performed By: #### H IV12 #### [facility] [address] [address] [address] Benoit Diggs Glucose Ql (U) Negative Normal NEGATIVE [facility] Comment on above: Performed By: #### H IV12 #### [facility] [address] [place] [address] Dr. Benoit Diggs Hemoglobin Ql (U) Negative Normal NEGATIVE [facility] Comment on above: Performed By: #### H IV12 #### [facility] [address] [place] [address] Dr. Benoit Diggs Ketones Ql (U) 15 mg/dl Abnormal NEGATIVE [facility] Comment on above: Performed By: #### H IV12 #### [facility] [address] [place] [address] Dr. Benoit Diggs LEUKOCYTES Negative Normal NEGATIVE [facility] Comment on above: Performed By: #### H IV12 #### [facility] [address] [place] [address] Dr. Benoit Diggs Nitrite Ql (U) Negative Normal NEGATIVE [facility] Comment on above: Performed By: #### H IV12 #### [facility] [address] [place] [address] Dr. Benoit Diggs pH (U) 6.5 [pH] Normal 5-9 [facility] Comment on above: Performed By: #### H IV12 #### [facility] [address] [place] [address] Dr. Benoit Diggs SPEC GRAVITY 1.025 Normal 1.005-<=1.[address] [facility] Comment on above: Performed By: #### H IV12 #### [facility] [address] [place], [place] [id number] Dr. Benoit Diggs UA PROTEIN TRACE Normal NEGATIVE/ TRACE The [facility] Comment on above: Performed By: #### H IV12 #### [facility] [address] [place] [address] Dr. Benoit Diggs UR MICRO IND INDICATED Normal [facility] Comment on above: Performed By: #### H IV12 #### [facility] [address] [place] [address] Dr. Benoit Diggs Urobilinogen Qn (U) 1.0 {Nadege'U}/dL Normal 0.2 - 1. 0 [facility] Comment on above: Performed By: #### H IV12 #### [facility] [address] [place] [address] Dr. Benoit Diggs INFLUENZA A AND B AGon 09-22 [facility] SEE BELOW Normal [facility] Comment on above: Result Comment: Nega tive for Flu A protein angiten. Infection due to Flu A cannot be ruled out. Flu A angiten in the sample may be below the detection limit of the test. Performed By: #### H IV12 #### [facility] [address] [place] [address] Dr. Benoit Diggs INFLUBNEGH SEE BELOW Normal [facility] Comment on above: Result Comment: Nega tive for Flu B protein antigen. Infection due to Flu B cannot be ruled out. Flu B antigen in the sample may be below the detection limit of the test. Performed By: #### H IV12 #### [facility] [address] [place] [address] Dr. Benoit Diggs INFLUENZA A AG Negative Normal NEGATIVE SEE COMMENT [facility] Comment on above: Performed By: #### H IV12 #### [facility] [address] [place] [address] Dr. Benoit Diggs INFLUENZA B AG Negative Normal NEGATIVE SEE COMMENT [facility] Comment on above: Performed By: #### H IV12 #### [facility] [facility] [address] [place] [address] Dr. Benoit Diggs INTERNAL CONTROLS Within Normal Limits Normal Wi thin Normal Limits The [facility] Comment on above: Performed By: #### H IV12 #### [facility] [address] [address] [address] Benoit Diggs PROF CHEM 8 (BAS METB)on Anion gap [Moles/Vol] 11.6 mmol/L Normal [facility] Comment on above: Performed By: #### C BC #### [facility] [address] [address] [address] Benoit Diggs Calcium [Mass/Vol] 8.2 mg/dL Critically low 8.5-10.1 Th [facility] Comment on above: Performed By: #### C BC #### [facility] [address] [place] [address] Dr. Benoit Diggs Chloride [Moles/Vol] 100 mmol/L Normal 98-107 [facility] Comment on above: Performed By: #### C BC #### [facility] [address] [place] [address] Dr. Benoit Diggs CO2 [Moles/Vol] 23.9 mmol/L Normal 21.0-32.0 [facility] Comment on above: Performed By: #### C BC #### [facility] [address] [place] [address] Dr. Benoit Diggs Creatinine [Mass/Vol] 0.48 mg/dL Critically low 0.55-1.02 [facility] Comment on above: Performed By: #### C BC #### [facility] [address] [place] [address] Dr. Benoit Diggs EGFR-AF ZIMBABWEAN >60 Normal >=60 [facility] Comment on above: Performed By: #### C BC #### [facility] [address] [place] [address] Dr. Benoit Diggs EGFR-NON AF ZIMBABWEAN >60 Normal >=60 [facility] Comment on above: Performed By: #### C BC #### [facility] [address] [place] [address] Dr. Benoit Diggs Glucose [Mass/Vol] 94 mg/dL Normal 74-106 [facility] Comment on above: Performed By: #### C BC #### [facility] [address] [address] [address] Benoit Diggs Potassium [Moles/Vol] 3.5 mmol/L Normal 3.5-5.1 [facility] Comment on above: Performed By: #### C BC #### [facility] [address] [address] [address] Benoit Diggs Sodium [Moles/Vol] 132 mmol/L Critically low 136-145 Th [facility] Comment on above: Performed By: #### C BC #### [facility] [address] [address] [address] Benoit Diggs Urea nitrogen [Mass/Vol] 6.0 mg/dL Critically low 7.0-18.0 [facility] Comment on above: Performed By: #### C BC #### [facility] [address] [address] [address] Benoit Diggs Urea nitrogen/Creatinine [Mass ratio] 12.5 mg/mg Normal [facility] Comment on above: Performed By: #### C BC #### [facility] [address] [address] [address] Benoit Diggs RESPIRATORY PANEL PLUSon Adenovirus Not detected Normal NOT DETECTED The [facility] Comment on above: Performed By: #### R SPLUS ####[facility] [address] [address]Dr. Benoit Diggs B. Parapertusis Not detected Normal NOT DETECTED The [facility] Comment on above: Performed By: #### R SPLUS ####[facility] [address] [address]Dr. Benoit Diggs B. Pertussis Not detected Normal NOT DETECTED The [facility] Comment on above: Performed By: #### R SPLUS ####[facility] [address] [address]Dr. Benoit Diggs Chlamydia Pneumoniae Not detected Normal NOT DETECTED The [facility] Comment on above: Performed By: #### R SPLUS ####[facility] [address] [address]Dr. Benoit Diggs Coronavirus 229E Not detected Normal NOT DETECTED The [facility] Comment on above: Performed By: #### R SPLUS ####[facility] [address] [address]Dr. Benoit Diggs Coronavirus HKU1 Not detected Normal NOT DETECTED The [facility] Comment on above: Performed By: #### R SPLUS ####[facility] [address] [place], [place] [address]Dr. Benoit Diggs Coronavirus NL63 Not detected Normal NOT DETECTED The [facility] Comment on above: Performed By: #### R SPLUS ####[facility] [address] [place], [place] [address]Dr. Benoit [facility] Coronavirus OC43 Not detected Normal NOT DETECTED The [facility] Comment on above: Performed By: #### R SPLUS ####[facility] [address] [place], [place] [address]Dr. Benoit Diggs Influenza A H1 2009 Detected Abnormal NOT DETECTED The [facility] Comment on above: Performed By: #### R SPLUS ####[facility] [address] [place], [place] [address]Dr. Benoit Diggs Influenza A H3 Not detected Normal NOT DETECTED The [facility] Comment on above: Performed By: #### R SPLUS ####[facility] [address] [place], [place] [address]Dr. Benoit Diggs Influenza B Not detected Normal NOT DETECTED The [facility] Comment on above: Performed By: #### R SPLUS ####[facility] [address] [place], [place] [address]Dr. Benoit Diggs Metapneumovirus Not detected Normal NOT DETECTED The [facility] Comment on above: Performed By: #### R SPLUS ####[facility] [address] [place], [place] [address]Dr. Benoit Diggs Mycoplas. Pneumoniae Not detected Normal NOT DETECTED The [facility] Comment on above: Performed By: #### R SPLUS ####[facility] [address] [place], [place] [address]Dr. Benoit Diggs Parainfluenza 1 Not detected Normal NOT DETECTED The [facility] Comment on above: Performed By: #### R SPLUS ####[facility] [address] [address]Dr. Benoit Diggs Parainfluenza 2 Not detected Normal NOT DETECTED The [facility] Comment on above: Performed By: #### R SPLUS ####[facility] [address] [address]Dr. Benoit Diggs Parainfluenza 3 Not detected Normal NOT DETECTED The [facility] Comment on above: Performed By: #### R SPLUS ####[facility] [address] [place], [place] [address]Dr. Benoit Diggs Parainfluenza 4 Not detected Normal NOT DETECTED The [facility] Comment on above: Performed By: #### R SPLUS ####[facility] [address] [place], [place] [address]Dr. Benoit Diggs Rhino/Enterovirus Not detected Normal NOT DETECTED The [facility] Comment on above: Performed By: #### R SPLUS ####[facility] [address] [place], [place] [address]Dr. Benoit Diggs RP2 Header 1 RESPIRATORY PANEL: VIRUSES Normal The [facility] Comment on above: Performed By: #### R SPLUS ####[facility] [address] [place], [place] [address]Dr. Benoit Diggs RP2 Header 2 RESPIRATORY PANEL: BACTERIA Normal The [facility] Comment on above: Performed By: #### R SPLUS ####[facility] [address] [place], [place] [address]Dr. Benoit Diggs RSV Not detected Normal NOT DETECTED The [facility] Comment on above: Performed By: #### R SPLUS ####[facility] [address] [place], [place] [address]Dr. Benoit Diggs SARS-CoV-2 (COVID-19) RNA RANDOLPH+probe Ql (Unsp spec) Not detected Normal NOT DETECTED The [facility] Comment on above: Performed By: #### R SPLUS ####[facility] [address] [place], [place] [address]Dr. Benoit Diggs Result Comment: When diagnostic testing [...] for this test is supported by the Family Service Worker of Health and Human Service's declaration that [...] used). Performed By: #### H IV12 #### [facility] [address] [place] [address] Dr. Benoit Diggs URINE MICROSCOPIC ONLYon BACTERIA TRACE Abnormal NONE SEEN The [facility] Comment on above: Performed By: #### H IV12 #### [facility] [address] [place] [address] Dr. Benoit Diggs Bacteria identified Cx Nom (U) INDICATED Normal [facility] Comment on above: Performed By: #### H IV12 #### [facility] [address] [place] [address] Dr. Benoit Diggs CAST NONE SEEN Normal NONE SEEN The [facility] Comment on above: Performed By: #### H IV12 #### [facility] [address] [place] [address] Dr. Benoit Diggs Crystals LM Nom (Urine sed) NONE SEEN Normal NONE SEEN The [facility] Comment on above: Performed By: #### H IV12 #### [facility] [address] [place] [address] Dr. Benoit Diggs Epithelial cells LM Ql (Urine sed) MODERATE Abnormal NONE SEEN /RARE The [facility] Comment on above: Performed By: #### H IV12 #### [facility] [address] [place] [address] Dr. Benoit Diggs MUCOUS NONE SEEN Normal NONE SEEN The [facility] Comment on above: Performed By: #### H IV12 #### [facility] [address] [place] [address] Dr. Benoit Diggs RBC 0-2 Normal 0-2 [facility] Comment on above: Performed By: #### H IV12 #### [facility] [address] [place] [address] Dr. Benoit Diggs WBC 5-10 Abnormal NONE SEEN The [facility] Comment on above: Performed By: #### H IV12 #### [facility] [address] [place] [address] Dr. Benoit Diggs CBC AUTO DIFFon 09-09-2022 BASO # 0.1 103/ul Normal 0.0-0.1 [facility] Comment on above: Performed By: #### C BC #### [facility] [address] [place] [address] Dr. Benoit Diggs Basophils/100 WBC (Bld) 0.5 % Normal 0.2-2.0 [facility] Comment on above: Performed By: #### C BC #### [facility] [address] [place] [address] Dr. Benoit Diggs EO # 0.4 103/ul Normal 0.0-0.7 [facility] Comment on above: Performed By: #### C BC #### [facility] [address] [place] [address] Dr. Benoit Diggs Eosinophils/100 WBC (Bld) 4.1 % Normal 0.9-7.0 [facility] Comment on above: Performed By: #### C BC #### [facility] [address] [place] [address] Dr. Benoit Diggs Erythrocyte distribution width (RBC) [Ratio] 12.8 % Normal 11.0-15.0 [facility] Comment on above: Performed By: #### C BC #### [facility] [address] [place] [address] Dr. Benoit Diggs Hematocrit (Bld) [Volume fraction] 31.4 % Critically low 36.0-48.0 [facility] Comment on above: Performed By: #### C BC #### [facility] [address] [address] [address] Benoit Diggs Hemoglobin (Bld) [Mass/Vol] 10.5 g/dL Critically low 12.0-16.0 [facility] Comment on above: Performed By: #### C BC #### [facility] [address] [address] [address] Benoit Diggs IG # 0.05 10e3/ul Critically high 0.00-0.03 [facility] Comment on above: Performed By: #### C BC #### [facility] [address] [place] [address] Dr. Benoit Diggs IG % 0.5 % Normal 0.0-0.5 [facility] Comment on above: Performed By: #### C BC #### [facility] [address] [place] [address] Dr. Benoit Diggs LYMPH # 2.2 103/ul Normal 1.2-3.8 [facility] Comment on above: Performed By: #### C BC #### [facility] [address] [place] [address] Dr. Benoit Diggs Lymphocytes/100 WBC (Bld) 21.9 % Normal 20.5-60.0 [facility] Comment on above: Performed By: #### C BC #### [facility] [address] [place] [address] Dr. Benoit Diggs MANUAL DIFF REQ NO Normal [facility] Comment on above: Performed By: #### C BC #### [facility] [address] [place] [address] Dr. Benoit Diggs MCH (RBC) [Entitic mass] 29.7 pg Normal 26.7-34.0 [facility] Comment on above: Performed By: #### C BC #### [facility] [address] [place] [address] Dr. Benoit Diggs MCHC (RBC) [Mass/Vol] 33.4 g/dL Normal 29.9-35.2 [facility] Comment on above: Performed By: #### C BC #### [facility] [address] [address] [address] Benoit Diggs MCV (RBC) [Entitic vol] 89.0 fL Normal 81.0-99.0 [facility] Comment on above: Performed By: #### C BC #### [facility] [address] [address] [address] Benoit Diggs MONO # 0.6 103/ul Normal 0.3-0.8 [facility] Comment on above: Performed By: #### C BC #### [facility] [address] [address] [address] Benoit Diggs Monocytes/100 WBC (Bld) 5.7 % Normal 1.7-12.0 [facility] Comment on above: Performed By: #### C BC #### [facility] [address] [place] [address] Dr. Benoit Diggs NEUT # 6.8 103/ul Critically high 1.4-6.5 [facility] Comment on above: Performed By: #### C BC #### [facility] [address] [place] [address] Dr. Benoit Diggs Neutrophils/100 WBC (Bld) 67.3 % Normal 43.0-75.0 [facility] Comment on above: Performed By: #### C BC #### [facility] [address] [place] [address] Dr. Benoit Diggs Platelet mean volume (Bld) [Entitic vol] 11.0 fL Normal 9.5-13.5 [facility] Comment on above: Performed By: #### C BC #### [facility] [address] [place] [address] Dr. Benoit Diggs PLT 215 103/ul Normal 150-450 [facility] Comment on above: Performed By: #### C BC #### [facility] [address] [place] [address] Dr. Benoit Diggs RBC 3.53 106/ul Critically low 4.20-5.40 [facility] Comment on above: Performed By: #### C BC #### [facility] [address] [address] [address] Benoit Diggs WBC 10.2 103/ul Normal 4.0-11.0 [facility] Comment on above: Performed By: #### C BC #### [facility] [address] [address] [address] Benoit Diggs GLUCOSE - 1HRon 09-09-2022 Glucose [Mass/Vol] 116 mg/dL Critically high 74-106 [facility] Comment on above: Performed By: #### G LU1HR ####[facility] [address] [address]Dr. Benoit Diggs PAP ACOG PANEL 2: 21 to 29on 08-13-2022 . . Normal [facility] Comment on above: Performed By: #### C BC #### [facility] [address] [place] [address] Dr. Benoit Diggs Age Gdln ACOG Testing - Normal [facility] Comment on above: Performed By: #### C BC #### [facility] [address] [place] [address] Dr. Benoit Diggs DIAGNOSIS: Comment Normal [facility] Comment on above: Result Comment: NEGA TIVE FOR INTRAEPITHELIAL LESION OR MALIGNANCY. Performed By: #### C BC #### [facility] [address] [place] [address] Dr. Benoit Diggs Methodology: Comment Normal [facility] Comment on above: Result Comment: This liquid based ThinPrep(R) pap test was screened with the use of an image guided system. Performed By: #### C BC #### [facility] [address] [place] [address] Dr. Benoit Diggs Note: Comment [facility] Comment on above: Result Comment: The Pap smear is a screening test designed to aid in the detection of premalignant and malignant conditions of the uterine cervix. It is not a diagnostic procedure and should not be used as the sole means of detecting cervical cancer. Both false-positive and false-negative reports do occur. . Performed By: #### C BC #### [facility] [address] [place] [address] Dr. Benoit Diggs Performed by: Comment Normal The [facility] Comment on above: Result Comment: Cynthia Smith, Nutrition Intern (ASCP) Performed By: #### C BC #### [facility] [address] [address] [address] Benoit Diggs Reflex Criteria: Comment Normal [facility] Comment on above: Result Comment: The HPV DNA reflex criteria were not met with this specimen result therefore, no HPV testing was performed. . Performed By: #### C BC #### [facility] [address] [address] [address] Benoit Diggs Specimen adequacy: Comment Normal [facility] Comment on above: Result Comment: Sati sfactory for evaluation. No endocervical component is identified. Performed By: #### C BC #### [facility] [address] [address] [address] Benoit Diggs CHLAMYDIA/GONOCOCCUS RANDOLPH (SW AB/URINE/PAPon 08-08-2022 Chlamydia trachomatis, RANDOLPH Negative Normal Negative [facility] Comment on above: Performed By: #### H IV12 #### [facility] [address] [address] [address] Benoit Diggs Neisseria gonorrhoeae, RANDOLPH Negative Normal Negative [facility] Comment on above: Performed By: #### H IV12 #### [facility] [address] [address] [address] Benoit Diggs US PREG INCOMPLETE ANATOMYon [...] by: MYLENE SULLIVAN Date: 2022-08-07 20:09 Normal [facility] US PREG ANATOMY SINGLEon US PREG ANATOMY [...] AISHWARYA MAGALLON Date: 2022-07-25 17:11 Normal [facility] AFP MATERNAL FOR SPINA BIFID Aon 07-17-2022 AFP MoM 0.55 Normal [facility] Comment on above: Performed By: #### H IV12 #### [facility] [address] [address] [address] Benoit Diggs AFP Value 20.0 ng/mL Normal [facility] Comment on above: Performed By: #### H IV12 #### [facility] [address] [address] [address] Benoit Diggs AFP, Serum for Spina Bifida Report Normal [facility] Comment on above: Performed By: #### H IV12 #### [facility] [address] [address] [address] Benoit Diggs Comment Comment Normal [facility] Comment on above: Result Comment: Ector Palafox, Ph.D., [facility] Director . References: Available Upon Request. . Multiples Of Median Cutoffs For AFP Elevations Caro 2.5 Black 2.8 IDD 2.0 Twins 4.5 Abbreviation Definitions IDD - Insulin Dep Diabetes OSBR - Open Spina Bifida Risk . For further inquiries contact [facility] at [phone]. . This test was developed and its performance characteristics determined by [employer]. It has not been cleared or approved by the Food and Drug Administration. Performed By: #### H IV12 #### [facility] [address] [address] [address] Benoit Diggs Gest Age Collection Date 18.1 weeks Normal [facility] Comment on above: Performed By: #### H IV12 #### [facility] [address] [address] [address] Benoit Diggs Gestat, Age Based on Ultrasound Normal [facility] Comment on above: Result Comment: 13:1 on 06/06/2022 Recalculations are not recommended when gestational dating by LMP and ultrasound are within 10 days. Performed By: #### H IV12 #### [facility] [address] [address] [address] Benoit Diggs Insulin Dep Diabetes No Normal [facility] Comment on above: Performed By: #### H IV12 #### [facility] [address] [address] [address] Benoit Diggs Interpretation Comment Normal [facility] Comment on above: Result Comment: Inte [...] Customer Services to discuss available options. The [employer] recommends amniocentesis be offered to women age 35 and older. Performed By: #### H IV12 #### [facility] [address] [place] [address] Dr. Benoit Diggs [age] Normal [facility] Comment on above: Performed By: #### H IV12 #### [facility] [address] [place] [address] Dr. Benoit Diggs Multiple Gestation No Normal [facility] Comment on above: Performed By: #### H IV12 #### [facility] [address] [place] [address] Dr. Benoit Diggs [place] [id number] Normal [facility] Comment on above: Performed By: #### H IV12 #### [facility] [address] [place] [address] Dr. Benoit Diggs PDF . Normal [facility] Comment on above: Performed By: #### H IV12 #### [facility] [address] [place] [address] Dr. Benoit Diggs Race Normal [facility] Comment on above: Performed By: #### H IV12 #### [facility] [address] [place] [address] Dr. Benoit Diggs Test Results: Negative Normal [facility] Comment on above: Performed By: #### H IV12 #### [facility] [address] [place] [address] Dr. Benoit Diggs HEP B SURFACE ANTIGEN SCREEN on 06-07-2022 HBsAg Screen Negative Normal Negative [facility] Comment on above: Performed By: #### H IV12 #### [facility] [address] [place] [address] Dr. Benoit Diggs HEPATITIS C VIRUS AB W/ REFL EX QUANTon 06-07-2022 HCV AB <0.1 Normal 0.0-0.9 [facility] Comment on above: Performed By: #### H IV12 #### [facility] [address] [place] [address] Dr. Benoit Diggs Interpretation: Comment Normal [facility] Comment on above: Result Comment: Nega tive Not infected with HCV, unless recent infection is suspected or other evidence exists to indicate HCV infection. Performed By: #### H IV12 #### [facility] [address] [place] [address] Dr. Benoit Diggs HIV 1 AND 2 WITH REFLEXon HIV Screen 4th Generation wRfx Non-Reactive Normal Non Reactive [facility] Comment on above: Result Comment: HIV Negative HIV-1/HIV-2 antibodies and HIV-1 p24 antigen were NOT detected. There is no laboratory evidence of HIV infection. Performed By: #### H IV12 #### [facility] [address] [place] [address] Dr. Benoit Diggs RPR QUANTon 06-07-2022 Rapid Plasma Reagin, Quant Non-Reactive Normal NonRea<1:1 [facility] Comment on above: Result Comment: Plea se Note: This test does not meet current guidelines for screening and diagnosis of syphilis. This test is intended for following treatment response in patients being treated for syphilis infection. To screen for syphilis infection, a reflex cascade that includes both RPR and a treponema-specific assay should be utilized, such as Treponema pallidum (Syphilis) Screening [place] (211287) or Rapid Plasma Reagin (RPR) Test With Reflex to Quantitative RPR and Confirmatory Treponema pallidum Antibodies (334893). Performed By: #### H IV12 #### [facility] [address] [place] [address] Dr. Benoit Diggs RUBELLA AB IGGon 06-07-2022 Rubella Antibodies, IgG 3.22 index Normal Immune >0.99 [facility] Comment on above: Result Comment: Non- immune <0.90 Equivocal 0.90 - 0.99 Immune >0.99 Performed By: #### C BC #### [facility] [address] [place] [address] Dr. Benoit Diggs US PREG <14 WKSon [...] MYLENE SULLIVAN Date: 2022-06-06 22:25 Normal [facility] CBC AUTO DIFFon 06-06-2022 BASO # 0.1 103/ul Normal 0.0-0.1 [facility] Comment on above: Performed By: #### C BC #### [facility] [address] [place] [address] Dr. Benoit Diggs Basophils/100 WBC (Bld) 0.6 % Normal 0.2-2.0 [facility] Comment on above: Performed By: #### C BC #### [facility] [address] [address] [address] Benoit Diggs EO # 0.3 103/ul Normal 0.0-0.7 [facility] Comment on above: Performed By: #### C BC #### [facility] [address] [place] [address] Dr. Benoit Diggs Eosinophils/100 WBC (Bld) 4.1 % Normal 0.9-7.0 [facility] Comment on above: Performed By: #### C BC #### [facility] [address] [address] [address] Benoit Diggs Erythrocyte distribution width (RBC) [Ratio] 13.9 % Normal 11.0-15.0 [facility] Comment on above: Performed By: #### C BC #### [facility] [address] [address] [address] Benoit Diggs Hematocrit (Bld) [Volume fraction] 36.0 % Normal 36.0-48.0 [facility] Comment on above: Performed By: #### C BC #### [facility] [address] [place] [address] Dr. Benoit Diggs Hemoglobin (Bld) [Mass/Vol] 12.0 g/dL Normal 12.0-16.0 [facility] Comment on above: Performed By: #### C BC #### [facility] [address] [place] [address] Dr. Benoit Diggs IG # 0.03 10e3/ul Normal 0.00-0.03 [facility] Comment on above: Performed By: #### C BC #### [facility] [address] [place] [address] Dr. Benoit Diggs IG % 0.4 % Normal 0.0-0.5 [facility] Comment on above: Performed By: #### C BC #### [facility] [address] [place] [address] Dr. Benoit Diggs LYMPH # 2.7 103/ul Normal 1.2-3.8 [facility] Comment on above: Performed By: #### C BC #### [facility] [address] [place] [address] Dr. Benoit Diggs Lymphocytes/100 WBC (Bld) 33.2 % Normal 20.5-60.0 [facility] Comment on above: Performed By: #### C BC #### [facility] [address] [place] [address] Dr. Benoit Diggs MANUAL DIFF REQ NO Normal [facility] Comment on above: Performed By: #### C BC #### [facility] [address] [place] [address] Dr. Benoit Diggs MCH (RBC) [Entitic mass] 29.4 pg Normal 26.7-34.0 [facility] Comment on above: Performed By: #### C BC #### [facility] [address] [place] [address] Dr. Benoit Diggs MCHC (RBC) [Mass/Vol] 33.3 g/dL Normal 29.9-35.2 [facility] Comment on above: Performed By: #### C BC #### [facility] [address] [place] [address] Dr. Benoit Diggs MCV (RBC) [Entitic vol] 88.2 fL Normal 81.0-99.0 [facility] Comment on above: Performed By: #### C BC #### [facility] [address] [place] [address] Dr. Benoit Diggs MONO # 0.5 103/ul Normal 0.3-0.8 [facility] Comment on above: Performed By: #### C BC #### [facility] [address] [place] [address] Dr. Benoit Diggs Monocytes/100 WBC (Bld) 6.6 % Normal 1.7-12.0 [facility] Comment on above: Performed By: #### C BC #### [facility] [address] [place] [address] Dr. Benoit Diggs NEUT # 4.4 103/ul Normal 1.4-6.5 [facility] Comment on above: Performed By: #### C BC #### [facility] [address] [place] [address] Dr. Benoit Diggs Neutrophils/100 WBC (Bld) 55.1 % Normal 43.0-75.0 [facility] Comment on above: Performed By: #### C BC #### [facility] [address] [place] [address] Dr. Benoit Diggs Platelet mean volume (Bld) [Entitic vol] 11.0 fL Normal 9.5-13.5 [facility] Comment on above: Performed By: #### C BC #### [facility] [address] [place] [address] Dr. Benoit Diggs PLT 225 103/ul Normal 150-450 [facility] Comment on above: Performed By: #### C BC #### [facility] [address] [place] [address] Dr. Benoit Diggs RBC 4.08 106/ul Critically low 4.20-5.40 [facility] Comment on above: Performed By: #### C BC #### [facility] [address] [place] [address] Dr. Benoit Diggs WBC 8.1 103/ul Normal 4.0-11.0 [facility] Comment on above: Performed By: #### C BC #### [facility] [address] [address] [address] Benoit Diggs CULTURE URINEon 06-06-2022 CULTURE URINE Culture Observations : MODERATE GROWTH OF MIXED GENITAL RIZWAN. NO POTENTIAL PATHOGENS SEEN. Normal [facility] Comment on above: Performed By: #### U RCX ####[facility] [id number] [address] Benoit Diggs GLYCOHEMOGLOBIN A1Con 2021 ADA RECOMMENDATION SEE BELOW Normal [facility] Comment on above: Result Comment: ADA RECOMMENDED LIMIT 4.0 - 6.0 ADA THERAPEUTIC TARGET < 7.0 ACTION SUGGESTED > 7.0 Performed By: #### C BC #### [facility] [address] [address] [address] Benoit Diggs Glucose [Mass/Vol] 105 mg/dL Normal [facility] Comment on above: Performed By: #### C BC #### [facility] [address] [place] [address] Dr. Benoit Diggs HbA1c (Bld) [Mass fraction] 5.3 % Normal 4.5-6.2 [facility] Comment on above: Performed By: #### C BC #### [facility] [address] [place] [address] Dr. Benoit Diggs DAVID BOX TEST PT SEND OUTo n 06-06-2022 SENT TO REF LAB 06/06/2022 Normal [facility] Comment on above: Performed By: #### H IV12 #### [facility] [address] [place] [address] Dr. Benoit Diggs TYPE AND SCREENon 06-06-2022 TYPE AND SCREEN Negative Normal [facility] Comment on above: Performed By: #### T NS #### [facility] [address] [place] [address] Dr. Benoit Diggs PREG QUANT HCGon 04-16-2022 HCG QUANT 64127 mIU/mL Normal [facility] Comment on above: Performed By: #### C BC #### [facility] [id number] Benoit Diggs HCG RANGE SEE BELOW Normal [facility] Comment on above: Result Comment: 5-50 0-1 WEEK 40-300 1-2 WEEKS 100-1,000 2-3 WEEKS 500-6,000 3-4 WEEKS 5,000-200,000 1-2 MONTHS 10,000-100,000 2-3 MONTHS 3,000-50,000 2ND TRIMESTER 1,000-50,000 3RD TRIMESTER Performed By: #### C BC #### [facility] [address] [address] [address] Benoit Diggs Vital Signs Date Time Vital Sign Value Performing Clinician Facility 02-02-2025 10:44-0400 Body mass index (BMI) [Ratio] 52.91 kg/m2 Jefferson Anita DO Work Phone: [facility] 02-02-2025 10:44-0400 Body weight 127.01 kg Jefferson Anita DO Work Phone: [facility] 02-02-2025 10:44-0400 Diastolic blood pressure 74 mm[Hg] Jefferson Anita DO Work Phone: [facility] 02-02-2025 10:44-0400 Systolic blood pressure 112 mm[Hg] Jefferson Anita DO Work Phone: [facility] 01-17-2025 13:48-0400 Body mass index (BMI) [Ratio] 52.93 kg/m2 Jefferson Anita DO Work Phone: [facility] 01-17-2025 13:48-0400 Body weight 127.06 kg Jefferson Anita DO Work Phone: [facility] 01-17-2025 13:48-0400 Diastolic blood pressure 70 mm[Hg] Jefferson Anita DO Work Phone: [facility] 01-17-2025 13:48-0400 Systolic blood pressure 120 mm[Hg] Jefferson Anita DO Work Phone: [facility] 12-22-2024 10:54-0500 Body mass index (BMI) [Ratio] 52.93 kg/m2 Gia Mayo PA Work Phone: [facility] 12-22-2024 10:54-0500 Body weight 127.06 kg Gia Mayo PA Work Phone: [facility] 12-22-2024 10:54-0500 Diastolic blood pressure 90 mm[Hg] Gia Mayo PA Work Phone: [facility] 12-22-2024 10:54-0500 Systolic blood pressure 116 mm[Hg] Gia Mayo PA Work Phone: [facility] 12-02-2024 12:56-0500 Body mass index (BMI) [Ratio] 53.09 kg/m2 Jefferson Anita DO Work Phone: [facility] 12-02-2024 12:56-0500 Body weight 127.46 kg Jefferson Anita DO Work Phone: [facility] 12-02-2024 12:56-0500 Diastolic blood pressure 84 mm[Hg] Jefferson Anita DO Work Phone: [facility] 12-02-2024 12:56-0500 Systolic blood pressure 122 mm[Hg] Jefferson Anita DO Work Phone: [facility] 11-11-2024 08:42-0500 Body mass index (BMI) [Ratio] 53.55 kg/m2 Jefferson Anita DO Work Phone: [facility] 11-11-2024 08:42-0500 Body weight 128.55 kg Jefferson Anita DO Work Phone: [facility] 09-07-2024 14:06-0500 Diastolic blood pressure 71 mm[Hg] Manuel Noel MD Work Phone: [facility] 09-07-2024 14:06-0500 Heart rate 77 /min Manuel Noel MD Work Phone: [facility] 09-07-2024 14:06-0500 Respiratory rate 18 /min Manuel Noel MD Work Phone: [facility] 09-07-2024 14:06-0500 SaO2% (BldA) [Mass fraction] 98 % Manuel Noel MD Work Phone: [facility] 09-07-2024 14:06-0500 Systolic blood pressure 112 mm[Hg] Manuel Noel MD Work Phone: [facility] 09-07-2024 12:39-0500 Body height 154.94 cm Manuel Noel MD Work Phone: [facility] 09-07-2024 12:39-0500 Body weight 127 kg Manuel Noel MD Work Phone: [facility] 08-24-2024 09:31-0500 Body height 154.94 cm Manuel Noel MD Work Phone: [facility] 08-24-2024 09:31-0500 Body mass index (BMI) [Ratio] 53.4 kg/m2 Manuel Noel MD Work Phone: [facility] 08-24-2024 09:31-0500 Body weight 128.16 kg Manuel Noel MD Work Phone: [facility] 07-17-2022 02:06-0400 Body weight 100.[address] DOCTOR PIERCE [facility] Comment on above: Performed By: #### HIV12 #### [facility] [address] [place] [address] Dr. Benoit Diggs Encounters Encounter Date Encounter Type Care Provider Facility Start: 02-09-2025 End: 02-09-2025 Clinisync Result Encounter Generic External Data Provider [facility] External [facility] Unsolicited Start: 02-09-2025 End: 02-09-2025 Clinisync Result Encounter Generic External Data Provider [facility] External [facility] Unsolicited Start: 02-02-2025 End: 02-02-2025 Bamboo flowsheet Jefferson Anita DO Work Phone: [facility] Start: 02-02-2025 End: 02-02-2025 Bamboo flowsheet Jefferson Anita DO Work Phone: [facility] Start: 02-02-2025 End: 02-02-2025 Office outpatient visit 15 minutes Jefferson Anita DO Work Phone: [facility] Comment on above: Encounter to discuss test results; Elevated TSH Start: 02-02-2025 End: 02-02-2025 ambulatory JEFFERSON ANITA Not Available Start: 01-17-2025 End: 01-17-2025 Patient encounter procedure Jefferson Anita DO Work Phone: [facility] Comment on above: LGSIL of cervix of u ndetermined significance Start: 01-17-2025 End: 01-17-2025 ambulatory Manuel Noel MD Work Phone: [facility] Work Phone: Start: 01-17-2025 End: 01-17-2025 Departed Referred Manuel Noel MD Work Phone: [facility] Start: 01-12-2025 End: 01-12-2025 ambulatory MANUEL NOEL Not Available Start: 01-03-2025 End: 01-03-2025 ambulatory Manuel Noel MD Work Phone: [facility] Work Phone: Start: 01-03-2025 End: 01-03-2025 Departed Referred Manuel Noel MD Work Phone: [facility] Start: 12-22-2024 End: 12-22-2024 Bamboo flowsheet Gia LYNN Work Phone: [facility] Start: 12-22-2024 End: 12-28-2024 Bamboo flowsheet Gia LYNN Work Phone: [facility] Start: 12-22-2024 End: 12-28-2024 Clinisync Result Encounter Generic External Data Provider [facility] External Department Unsolicited Start: 12-22-2024 End: 12-22-2024 Patient encounter procedure Gia LYNN Work Phone: [facility] Start: 12-22-2024 End: 12-22-2024 Periodic preventive med est patient 18-39 yrs Gia Vamsi LYNN Work Phone: [facility] Comment on above: control counse yosi (Primary Dx); Well woman exam with routine gynecological exam; Pelvic pain in female Start: 12-22-2024 End: 12-22-2024 ambulatory GIA MAYO Not Available Start: 12-02-2024 End: 12-02-2024 Patient encounter procedure Jefferson Anita DO Work Phone: [facility] Comment on above: Encounter for remova l of etonogestrel implant Start: 12-02-2024 End: 12-02-2024 ambulatory JEFFERSON ANITA Not Available Start: 11-30-2024 End: 11-30-2024 ambulatory MANUEL NOEL Not Available Start: 11-11-2024 End: 11-11-2024 Bamboo flowsheet Jefferson Anita DO Work Phone: [facility] Start: 11-11-2024 End: 11-11-2024 Bamboo flowsheet Jefferson Anita DO Work Phone: [facility] Start: 11-11-2024 End: 11-11-2024 Clinisync Result Encounter Generic External Data Provider [facility] External Department Unsolicited Start: 11-11-2024 End: 11-11-2024 Office outpatient visit 15 minutes Jefferson Anita DO Work Phone: [facility] Comment on above: Right ovarian cyst; Nausea; PCOS (polycystic ovarian syndrome) Start: 11-11-2024 End: 11-11-2024 ambulatory JEFFERSON ANITA Not Available Start: 09-07-2024 Non-patient / Non-visit Manuel peleaz MD Work Phone: [facility] Gastroenterology Work Phone: Start: 09-07-2024 End: 09-07-2024 Admission to same day surgery center Manuel Noel MD Work Phone: [facility] Work Phone: Start: 09-07-2024 End: 09-07-2024 ambulatory Manuel Noel MD Work Phone: [facility] Work Phone: Start: 08-28-2024 End: 08-28-2024 Emergency department patient visit MANUEL NOEL [facility] Start: 08-24-2024 End: 08-24-2024 Patient encounter procedure Manuel Noel MD Work Phone: [facility] Gastroenterology Work Phone: Start: 07-01-2024 End: 07-01-2024 Clinisync Result Encounter Generic External Data Provider [facility] External Department Unsolicited Start: 07-01-2024 End: 07-01-2024 Clinisync Result Encounter Generic External Data Provider [facility] External Department Unsolicited Start: 06-10-2024 Non-patient / Non-visit Manuel pelaez MD Work Phone: [facility] Work Phone: Start: 06-01-2024 End: 06-01-2024 ambulatory MANUEL NOEL Not Available Start: 04-28-2024 End: 04-28-2024 ambulatory MANUEL NOEL Not Available Start: 03-02-2024 Patient encounter procedure Generic Provider [facility] Start: 03-02-2024 End: 03-02-2024 ambulatory MANUEL NOEL Not Available Start: 02-28-2024 End: 02-29-2024 Emergency department patient visit NAVI MOORE [facility] Start: 02-28-2024 End: 02-28-2024 [facility] Start: 12-23-2022 Encounter for genera l adult medical examination without abnormal findings DR MANUEL NOEL [facility] Start: 12-21-2022 End: 12-22-[address] MANUEL NOEL Facility: Start: 12-21-2022 End: 12-22-2022 Encounter for general [...] Facility:[facility] Start: 09-22-2022 End: 09-23-2022 ambulatory KRISHNA SAXENA Facility:[facility] Start: 09-09-2022 End: 09-10-[address] MANUEL NOEL Facility:[facility] Start: 08-07-2022 End: 08-08-[address] MANUEL NOEL Facility:[facility] Start: 08-06-2022 End: 08-06-[address] MANUEL NOEL Facility:[facility] Start: 07-25-2022 End: 07-26-[address] JEFFERSON HOWARD . Facility:[facility] Start: 07-13-2022 End: 07-13-[address] DESHAWN MARKS . Facility:[facility] Start: 07-11-2022 End: 07-12-[address] MANUEL NOEL Facility:[facility] Start: 06-06-2022 End: 06-07-[address] MANUEL NOEL Facility:[facility] Start: 04-16-2022 End: 04-17-[address] DOCTOR PIERCE Facility:[facility] Procedures Date Procedure Procedure Detail Performing Clinician Start: 02-09-2025 ALL THYROID STIM HORMONE Jefferson Anita DO Work Phone: Start: 01-17-2025 Urnls dip stick/tablet rgnt non-auto w/o micrscp Jefferson Anita DO Work Phone: Start: 01-03-2025 Urine culture Manuel Noel MD Work Phone: Start: 12-22-2024 IGP,APTIMA HPV,AGE GDLN Gia LYNN Work Phone: Start: 12-02-2024 VP DELIVERY INSERTION/REMOVAL OF CONTRACEPTIVE CAPSULE Jefferson Anita DO Work Phone: Start: 11-11-2024 ALL CBC WITH AUTO DIFF Jefferson Howard DO Work Phone: Start: 09-07-2024 Esophagogastroduodenoscopy Manuel Noel MD Work Phone: Start: 07-01-2024 MHPT TRICHOMONAS/WET PREP Generic Tack Cutter al Data Provider Start: 12-03-2022 Transfusion of Nonautologous Red Blood Cells into Peripheral Vein, Percutaneous Approach DR DOCTOR PIERCE Start: 12-02-2022 Delivery of Products of Conception, External Approach DR DOCTOR PIERCE Start: 12-02-2022 Drainage of Amniotic Fluid, Therapeutic from Products of Conception, Via Natural or Artificial Opening DR DOCTOR PIERCE Plan of Treatment Date Care Activity Detail Author Start: 08-02-2025 End: 08-02-2025 Patient encounter procedure 08/02/2025 1:40 PM EDT Procedure Visit [facility] [address] [place] [phone] Jefferson Howard, DO [address] [place] [address] [facility] Start: 06-20-2025 Influenza vaccination Influenz a Vaccine (Season Ended) [facility] Start: 02-02-2025 End: 02-02-2025 Patient encounter procedure [facility] Comment on above: Arrived Start: 01-17-2025 End: 01-17-2026 Colposcopy Colposcopy Procedures Routine LGSIL of cervix of undetermined significance Expected: 01/17/2025 (Approximate), Expires: 01/17/2026 [facility] Work Phone: Comment on above: Expected: 01/17/2025 (Approximate), Expires: 01/17/2026 Start: 01-12-2025 End: 01-12-2025 Professional / ancillary services management 01/12/2025 1:00 PM EDT Ancillary Procedure [facility] [address] [facility] [phone] [facility] Start: 01-03-2025 Bacteria identified in Urine by Culture Urine Culture [facility] Start: 01-03-2025 Urine culture [facility] Start: 12-22-2024 End: 12-22-2025 US Pelvis US Pelvis w/ TV Imaging Routine Pelvic pain in female Expected: 12/22/2024, Expires: 12/22/2025 [facility] Comment on above: Expected: 12/22/2024 , Expires: 12/22/2025 Start: 12-22-2024 End: 12-22-2024 Patient encounter procedure [facility] Comment on above: Arrived Start: 12-02-2024 End: 12-02-2024 Patient encounter procedure 12/02/2024 9:30 AM EST Procedure Visit [facility] [address] [facility] [phone] Jefferson Howard DO [facility] [place] [address] [facility] Start: 11-30-2024 End: 11-30-2024 Professional / ancillary services management 11/30/2024 2:00 PM EST Ancillary Procedure [facility] [address] [place] [phone] [facility] Start: 11-11-2024 End: 11-11-2025 DHEA DHEA Lab Routine Right ovarian cyst PCOS (polycystic ovarian syndrome) Expected: 11/11/2024 (Approximate), Expires: 11/11/2025 [facility] Comment on above: Expected: 11/11/2024 (Approximate), Expires: 11/11/2025 Start: 11-11-2024 End: 11-11-2025 US Pelvis US Pelvis w/ TV Imaging Routine Right ovarian cyst PCOS (polycystic ovarian syndrome) Expected: 11/11/2024, Expires: 11/11/2025 [facility] Comment on above: Expected: 11/11/2024 , Expires: 11/11/2025 Start: 11-11-2024 End: 11-11-2024 Patient encounter procedure 11/11/2024 8:40 AM EST Office Visit [facility] [address] [place] [phone] Jefferson Howard, DO [address] [facility] [place] [address] Arrived [facility] Comment on above: Arrived Start: 09-07-2024 [facility] Start: 06-20-2024 Influenza vaccination Influenza Vacc ine (#1) [facility] CBC W Auto Different ial panel - Blood CBC and differential Lab Routine Right ovarian cyst PCOS (polycystic ovarian syndrome) Ordered: 11/11/2024 [facility] Comment on above: Ordered: 11/11/2024 Cytology Cervical or vaginal smear or scraping study Pap Smear Pathology and Cytology Routine Well woman exam with routine gynecological exam Ordered: 12/22/2024 [facility] Work Phone: Comment on above: Ordered: 12/22/2024 DHEA-sulfate DHEA-sulfate Lab Routine Right ovarian cyst PCOS (polycystic ovarian syndrome) Ordered: 11/11/2024 [facility] Comment on above: Ordered: 11/11/2024 Follicle stimulating hormone Follicle stimulating hormone Lab Routine Right ovarian cyst PCOS (polycystic ovarian syndrome) Ordered: 11/11/2024 [facility] Comment on above: Ordered: 11/11/2024 hCG, quantitative, hCG, quantitative, Lab Routine Right ovarian cyst PCOS (polycystic ovarian syndrome) Ordered: 11/11/2024 [facility] Work Phone: Comment on above: Ordered: 11/11/2024 Hemoglobin A1c/Hemoglobin.total in Blood Hemoglobin A1c Lab Routine Right ovarian cyst PCOS (polycystic ovarian syndrome) Ordered: 11/11/2024 [facility] Comment on above: Ordered: 11/11/2024 Luteinizing hormone Luteinizing hormone Lab Routine Right ovarian cyst PCOS (polycystic ovarian syndrome) Ordered: 11/11/2024 [facility] Comment on above: Ordered: 11/11/2024 Patient Education Esophagitis Kn ow your Meds [facility] Work Phone: Prolactin Prolactin Lab Ro utine Right ovarian cyst PCOS (polycystic ovarian syndrome) Ordered: 11/11/2024 [facility] Comment on above: Ordered: 11/11/2024 Removal non-biodegradable drug delivery implant Remove drug implant device Procedures Routine Encounter for removal of etonogestrel implant Ordered: 12/02/2024 [facility] Work Phone: Comment on above: Ordered: 12/02/2024 Thyrotropin [Units/volume] in Serum or Plasma TSH Lab Routine Right ovarian cyst PCOS (polycystic ovarian syndrome) Ordered: 11/11/2024 [facility] Comment on above: Ordered: 11/11/2024 Thyrotropin [Units/volume] in Serum or Plasma TSH Lab Routine Elevated TSH Ordered: 02/02/2025 [facility] Work Phone: Comment on above: Ordered: 02/02/2025 Thyroxine (T4) free [Mass/volume] in Serum or Plasma T4, free Lab Routine Right ovarian cyst PCOS (polycystic ovarian syndrome) Ordered: 11/11/2024 [facility] Comment on above: Ordered: 11/11/2024 Thyroxine (T4) free [Mass/volume] in Serum or Plasma T4, free Lab Routine Elevated TSH Ordered: 02/02/2025 [facility] Comment on above: Ordered: 02/02/2025 Payers Date Payer Category Payer Medicaid [facility] MEDICAID [place] [id number] 2021-Present [address] [address] [id number] 2021 Medicaid (Managed Care) [employer] [id number] 2000 Unknown [id number] 2.16.840.1.161153.3.579.2. 593 2000 Unknown [id number] 2.16.840.1.036308.3.579.2. 593 2000 Unknown [id number] 2.16.840.1.635200.3.579.2. 593 2000 Unknown [id number] 2.16.840.1.734760.3.579.2. 593 2000 Unknown [id number] 2.16.840.1.499080.3.579.2. 593 2000 Unknown [id number] 2.16.840.1.934277.3.579.2. 593 2000 Unknown [id number] 2.16.840.1.978179.3.579.2. 593 2000 Unknown [id number] 2.16.840.1.968354.3.579.2. 593 2000 Unknown [id number] 2.16.840.1.951726.3.579.2. 593 2000 Unknown [id number] 2.16.840.1.153616.3.579.2. 593 2000 Unknown [id number] 2.16.840.1.116080.3.579.2. 593 2000 Unknown [id number] 2.16.840.1.646028.3.579.2. 593 2000 Unknown [id number] 2.16.840.1.870723.3.579.2. 593 2000 Unknown [id number] 2.16.840.1.039283.3.579.2. 593 2000 Unknown [id number] 2.16.840.1.580421.3.579.2. 1286 2000 Unknown [id number] 2.16.840.1.639251.3.579.2. 1286 2000 Unknown [id number] 2.16.840.1.107574.3.579.2. 1286 2000 Unknown [id number] 2.16.840.1.600172.3.579.2. 1259 2000 Unknown [id number] 2.16.840.1.606048.3.579.2. 1259 2000 Unknown [id number] 2.16.840.1.644878.3.579.2. 1259 2000 Unknown [id number] 2.16.840.1.896160.3.579.2. 1259 2000 Unknown [id number] 2.16.840.1.799633.3.579.2. 9 2000 Unknown [id number] 2.16.840.1.164896.3.579.2. 9 2000 Unknown [id number] 2.16.840.1.876913.3.579.2. 9 2000 Unknown [id number] 2.16.840.1.897040.3.579.2. 9 2000 Unknown [id number] 2.16.840.1.085447.3.579.2. 9 2000 Unknown [id number] 2.16.840.1.824395.3.579.2. 1259 1959 Self-pay 1959 Unknown [id number] Unknown [id number] 2.16.840.1.899377.3.579.2. 593 Unknown [id number] 2.16.840.1.662164.3.579.2. 531 Unknown [id number] 2.16.840.1.505344.3.579.2. 531 Unknown [id number] 2.16.840.1.406435.3.579.2. 531 Social History Date Type Detail Facility Start: 03-02-2024 End: 09-07-2024 Tobacco smoking status NHIS Never smoked tobacco (finding) [facility] Start: 09-07-2024 Sex Patient sex un known (finding) [facility] Start: 2000 Sex Assigned At Female [facility] Start: 03-02-2024 Tobacco use and exposure Smoke less tobacco non-user [facility] Start: 03-02-2024 End: 06-01-2024 History of Social function [facility] Start: 03-02-2024 End: 06-01-2024 Social connection and isolation panel [facility] Active Member of [facility] bs or Organizations Not on file [facility] [...] at Not on file [facility] Start: 01-04-2025 End: 01-19-2025 Sex Female (finding) [facility] Medical Equipment Procedure Code Equipment Code Equipment Origin al Text Equipment Identifier Dates ERCP (endoscopic retrograde cholangiopancreatog rancho) STENT PANCREATIC ZIMMON 4FR FDA Start: 11-20-2017 ERCP (endoscopic retrograde cholangiopancreatog rancho) STENT PANCREATIC ZIMMON 4FR FDA Start: 11-20-2017 ERCP (endoscopic retrograde cholangiopancreatog rancho) STENT PANCREATIC ZIMMON 4FR FDA Start: 11-20-2017 Goals Date Patient Goal Desired Activity /State Clinical Notes 08-24-2024 to 02-02-2025 Shelley Dang LPN - 02/02/2025 11:10 AM Shon Howard DO - 01/17/2025 1:30 PM LEAH Barron - 12/22/2024 11:00 AM Shaun Collins LPN - 12/02/2024 1:10 PM EST Note Date & Type Note Facility 02-02-2025 History of Presen t illness Narrative Reason for Appointment: Patient ID: Jes Malik is a 24 y.o. female who presents for Results Patient presents today for Follow up appointment to discuss results. MEDICATIONS Current Outpatient Medications Medication Instructions norgestimate-ethinyl estradiol (Sprintec 28) 0.25-35 MG-MCG tablet 1 tablet, Oral, Daily, Take 1 tablet by mouth daily omeprazole (PRILOSEC) 40 mg, Oral, 2 times daily before meals ondansetron (ZOFRAN) 4 mg, Oral, Every 6 hours PRN, Take 1 tablet by mouth every 6 hours as needed for nausea. promethazine (Phenergan) 12.5 MG tablet Take by mouth ALLERGIES Allergies Allergen Reactions Penicillins Unknown PROBLEMS Active Ambulatory Problems Diagnosis Date Noted Major depressive disorder, recurrent episode, mild ([facility]) ([facility]) 03/02/2024 Gastroesophageal reflux disease without esophagitis 03/02/2024 Mild intermittent asthma without complication ([facility]) 03/02/2024 Allergic rhinitis due to pollen 03/02/2024 Morbid obesity due to excess calories ([facility]) 03/02/2024 Annual physical exam 03/02/2024 Amenorrhea 04/28/2024 [...] No family history on file. SURGICAL HISTORY Past Surgical History: Procedure Laterality Date GALLBLADDER REVIEW OF SYSTEMS Review of Systems: Review [...] nursing note reviewed. Exam conducted with a facing grinder present. Vitals: Estimated body mass index is 52.91 kg/m as calculated from the following: Height as of 24: 5' 1 . Weight as of this encounter: 280 lb. BP: 112/74 Patient's last menstrual period was 12/16/2024 (approximate). ASSESSMENT & PLAN ICD-10-CM 1. Encounter to discuss test results Z71.2 Pt presents to discuss labs and ultrasound orders. Pt having constipation and pain in abdomen- reviewed results with pt. Pt given repeat tsh and free t4 to have obtained for elevated TSH. Pt to follow up with GI, to take colace twice a day. Discussed dx lap for future Return to care 2 months Documented by Shelley Dang LPN on behalf of: Jefferson Howard DO documented in this encounter [facility] 01-17-2025 History of Presen t illness Narrative Reason for Appointment: Patient ID: Jes Malik is a 24 y.o. female who presents for Colposcopy Patient presents today for a Colposcopy appointment. MEDICATIONS Current Outpatient Medications Medication Instructions norgestimate-ethinyl estradiol (Sprintec 28) 0.25-35 MG-MCG tablet 1 tablet, Oral, Daily, Take 1 tablet by mouth daily omeprazole (PRILOSEC) 40 mg, Oral, 2 times daily before meals ondansetron (ZOFRAN) 4 mg, Oral, Every 6 hours PRN, Take 1 tablet by mouth every 6 hours as needed for nausea. promethazine (Phenergan) 12.5 MG tablet Take by mouth ALLERGIES Allergies Allergen Reactions Penicillins Unknown SURGICAL HISTORY Past Surgical History: Procedure Laterality Date GALLBLADDER REVIEW OF SYSTEMS Review of Systems: Review of Systems All other systems reviewed and are negative. OBJECTIVE Objective: Physical Exam Constitutional: Appearance: Normal appearance. She is well-developed. Genitourinary: Vulva normal. Cardiovascular: Rate and Rhythm: Normal rate and [...] nursing note reviewed. Exam conducted with a facing grinder present. Vitals: Estimated body mass index is 52.93 kg/m as calculated from the following: Height as of 06/01/24: 5' 1 . Weight as of this encounter: 280 lb 1.9 oz. BP: 120/70 Patient's last menstrual period was 12/16/2024 (approximate). ASSESSMENT & PLAN Assessment/Plan Encounter Diagnosis: ICD-10-CM 1. LGSIL of cervix of undetermined significance R87.612 POCT , urine manually resulted Colposcopy POCT urinalysis dipstick manually resulted Procedures Colposcopy: Patient is doing well and has no complaints. Pap results have been reviewed with the patient in great detail and patient voiced understanding. Patient presents today for a Colposcopy with ECC. Patient was placed in dorsal lithotomy position with feet in stirrups, a sterile speculum was placed into the vagina and the cervix was visualized. Cervix was cleansed with vinegar. Postprocedural instructions given. All if patients questions answered and she expressed understanding. Advised to call in interim with questions or concerns. Follow Up: Patient is to return in 6 months for Repeat Pap. Documented by Shanell Monroe NP on behalf of: Jefferson Howard DO documented in this encounter [facility] 12-22-2024 History of Presen t illness Narrative [...] Major depressive disorder, recurrent episode, mild (HCC) ([facility]) 03/02/2024 Gastroesophageal reflux disease without esophagitis 03/02/2024 Mild intermittent asthma without complication ([facility]) 03/02/2024 Allergic rhinitis due to pollen 03/02/2024 Morbid obesity due to excess calories ([facility]) 03/02/2024 Annual physical exam 03/02/2024 Amenorrhea 04/28/2024 [...] nursing note reviewed. Exam conducted with a facing grinder present. Vitals: Estimated body mass index is [...] of: LEAH Curran documented in this encounter [facility] 12-02-2024 History of Presen t illness Narrative [...] nursing note reviewed. Exam conducted with a facing grinder present. Vitals: Estimated body mass index is 53.09 kg/m as calculated from the following: Height as of 24: 5' 1 . Weight as of this encounter: 281 lb. BP: 122/84 No LMP recorded. ASSESSMENT & PLAN Assessment/Plan Encounter Diagnosis: ICD-10-CM 1. Encounter for removal of etonogestrel implant Z30.46 Remove drug implant device Insertion/Removal of Contraceptive Capsule Date/Time: 12/02/2024 1:19 PM Performed by: Jefferson Howard DO Authorized by: Jefferson Howard DO Consent: Consent obtained: Written Consent [...] by Pilar Collins LPN on behalf of: Jefferson Howard DO documented in this encounter [facility] 11-11-2024 History of Presen t illness Narrative [...] Major depressive disorder, recurrent episode, mild (HCC) ([facility]) 03/02/2024 Gastroesophageal reflux disease without esophagitis 03/02/2024 Mild intermittent asthma without complication ([facility]) 03/02/2024 Allergic rhinitis due to pollen 03/02/2024 Morbid obesity due to excess calories ([facility]) 03/02/2024 Annual physical exam 03/02/2024 Amenorrhea 04/28/2024 [...] nursing note reviewed. Exam conducted with a facing grinder present. Vitals: Estimated body mass index is [...] by Pilar Collins LPN on behalf of: Jefferson Howard DO documented in this encounter [facility] 09-07-2024 Procedure note [facility] enter 08-24-2024 Evaluation note Diagnosis Onset Date Resolution Dyspepsia acute August 24, 2024 9:29am Nausea acute August 24, 2024 9:29am Chronic GERD chronic August 9:29am Constipation chronic August 9:29am [facility] Work Phone: Evaluation note* Diagnosis Gastroesophageal reflux disease without esophagitis- Primary [...] syndrome) Polycystic ovaries documented in this encounter [facility] HealthcareEvaluation note* Diagnosis Gastroesophageal reflux disease without esophagitis- Primary [...] of etonogestrel implant documented in this encounter [facility] HealthcareEvaluation note* Diagnosis Gastroesophageal reflux disease without esophagitis- Primary [...] female genital organs documented in this encounter [facility] HealthcareEvaluation noteNo assessment information available[facility] Work [facility]: Evaluation note* Diagnosis Gastroesophageal reflux disease without esophagitis- Primary [...] Morbid obesity due to excess calories (CMS/HCC) LGSIL of cervix of undetermined significance documented in this encounter [facility] HealthcareEvaluation note* Diagnosis Gastroesophageal reflux disease without esophagitis- Primary [...] obesity due to excess calories (CMS/HCC) Encounter to discuss test results Other specified counseling Elevated TSH Other abnormal blood chemistry documented in this encounter [facility] Healthcare Summary Purpose Family History Relationship Condition Age at Onset Recorded Date/T joe Not Specified No pertinent family history Unknown Advance Directives Advance Directive Response Recorded Date/ Time Advance Directives No November 20, 2017 7:11am Advance Directive Response Recorded Date/ Time Advance Directives No November 20, 2017 8:11am Chief Complaint and Reason for Visit Chief Complaint Admit Date Refer: GERD, abdominal pain August 9:29am Abd pain/nausea September 07, 2024 12:15pm Abd pain/nausea September 07, 2024 1:25pm Reason for Visit Admit Date Dyspepsia August 24, 2024 9 :29am Nausea August 24, 2024 9 :29am Chronic GERD August 24, 2024 9 :29am Constipation August 24, 2024 9 :29am Chief Complaint Admit Date Unknown January 03, 2025 12: 33am Chief Complaint Admit Date Unknown January 03, 2025 12: 33am Unknown January 17, 2025 12: 00pm Additional Source Comments INFORMATION SOURCE (unrecogn ized section and content) DATE CREATED AUTHOR 12/24/2022 [facility] DATE CREATED AUTHOR AUTHOR'S ORGANIZ ATION 08/30/2024 [facility] DATE CREATED AUTHOR AUTHOR'S ORGANIZ ATION 01/19/2025 [facility] DATE CREATED AUTHOR AUTHOR'S ORGANIZ ATION 02/04/2025 [facility] Care Teams (unrecognized sec tion and content) Team Status: Active Member Role Status Dates Manuel Noel MD Primary Care Provider Active Team Status: Inactive Member Role Status Dates Manuel Noel MD Primary Care Provider Active S tart: January 03, 2025 End: January 03, 2025 Krishna Saxena MD Attending Provider Active St art: January 03, 2025 End: January 03, 2025 Team Status: Active Member Role Status Dates [...] Other Provider Active Start: September 07, 2024 Car Framer Relationship Specialty Start Date End Date Manuel Noel MD [address] [place] [address] PCP - General Family Medicine 03/02/24 Car Framer Relationship Specialty Start Date End Date Manuel Noel MD [address] [place] [address] PCP - General [facility] 03/02/24 Manuel Noel MD [address] [place] [address] [facility] 07/20/24 Car Framer Relationship Specialty Start Date End Date Manuel Noel MD [address] [place] [address] PCP - [facility] 03/02/24 Manuel Noel MD [address] [place] [address] [facility] 07/20/24 Car Framer Relationship Specialty Start Date End Date Manuel Noel MD [address] [place] [address] PCP [facility] 03/02/24 Manuel Noel MD [address] [place] [address] [facility] 07/20/24 Car Framer Relationship Specialty Start Date End Date Manuel Noel MD [address] [place] [address] PCP [facility] 03/02/24 Manuel Noel MD [address] [address] [facility] 07/20/24 Car Framer Relationship Specialty Start Date End Date Manuel Noel MD [address] [place] [address] PCP [facility] 03/02/24 Manuel Noel MD [address] [place] [address] [facility] 07/20/24 Car Framer Relationship Specialty Start Date End Date Manuel Noel MD [address] [place] [address] [facility] 03/02/24 Manuel Noel MD [address] [place] [address] [facility] 07/20/24 Car Framer Relationship Specialty Start Date End Date Manuel Noel MD [address] [place] [address] [facility] 03/02/24 Manuel Noel MD [address] [place] [address] [facility] 07/20/24 Car Framer Relationship Specialty Start Date End Date Manuel Noel MD [address] [place] [address] [facility] 03/02/24 Manuel Noel MD [address] [place] [address] PCP - [facility] 07/20/24 Team Status: Inactive Member Role Status Dates Jefferson Howard DO Attending Provider Active Start : January 17, 2025 End: January 17, 2025 Reason for Visit (unrecogniz ed section and content) Reason Comments Ovarian Cyst Reason Comments Nexplanon Removal Reason Comments [facility] Visit Reason Comments Colposcopy Reason Comments Results Goals (unrecognized section and content) Goals may be documented in a n alternate sectionGoals may be documented in an alternate section FOR RECORDS PERTAINING TO PATIENTS WHO ARE [...] BE BASED ON THE PRIMARY CLINICAL RECORDS. [facility] [employer] provides no warranty or guarantee of the accuracy or completeness of information in this document.
--- NOTE | 2025-03-19 13:54 | ECG_ITS ---
[facility] Test Date: 2025-03-19 Pat Name: MANISH ROMERO Department: Room: - Gender: Female [employer] Representative: : [id number] Requested By: [id number] Order Number: [id number] Reading MD: CORI MARTINEZ M.D. Measurements Intervals [place] Rate: 85 P: 35 MN: 132 QRS: 90 QRSD: 72 T: 24 QT: 374 QTc: 416 Interpretive Statements 1100 Sinus rhythm 1102 Sinus arrhythmia 9110 normal ECG Compared to ECG 06/09/2024 19:54:12 No significant changes Electronically Signed On 03-20-2025 7:13:33 EDT by CORI MARTINEZ M.D.
[2025-03-19 14:18] LABS: Basophils Absolute Auto 0.1 10^3/uL (0.0-0.1); Basophils Percent Auto 0.5 % (0.2-2.0); Eosinophils Absolute Auto 0.2 10^3/uL (0.0-0.7); Eosinophils Percent Auto 2.3 % (0.9-7.0); Hematocrit 39.4 % (36.0-48.0); Hemoglobin 13.4 g/dL (12.0-16.0); Immature Granulocytes Abs Auto 0.03 10^3/uL (0.00-0.03); Immature Granulocytes Pct Auto 0.3 % (0.0-0.5); Lymphocytes Absolute Auto 2.6 10^3/uL (1.2-3.8); Mean Corpuscular Hemoglobin 29.5 pg (26.7-34.0); Mean Corpuscular Volume 86.8 fL (81.0-99.0); Mean Platelet Volume 10.2 fL (9.5-13.5); Monocytes Absolute Auto 0.6 10^3/uL (0.3-0.8); Monocytes Percent Auto 6.2 % (1.7-12.0); Neutrophils Absolute Auto 6.2 10^3/uL (1.4-6.5); Neutrophils Percent Auto 63.7 % (43.0-75.0); Platelet Count 272 10^3/uL (150-450); Red Blood Count 4.54 10^6/uL (4.20-5.40); Red Cell Distribution Width 12.9 % (11.0-15.0); White Blood Count 9.7 10^3/uL (4.0-11.0)
[2025-03-19 14:29] LABS: Magnesium 1.8 mg/dL (1.8-2.4)
[2025-03-19 14:31] LABS: HCG Qualitative NEGATIVE (NEGATIVE); Internal Control Within Normal Limits
[2025-03-19 14:38] LABS: Alanine Aminotransferase 26 U/L (14-59); Albumin Globulin Ratio 0.7; Albumin Level 3.2 g/dL (3.4-5.0); Alkaline Phosphatase 102 U/L (46-116); Anion Gap 16.3; Aspartate Amino Transferase 18 U/L (15-37); BUN Creatinine Ratio 23.5; Bilirubin Total 0.2 mg/dL (0.2-1.0); Calcium 9.4 mg/dL (8.5-10.1); Carbon Dioxide 24.5 mmol/L (21.0-32.0); Chloride 103 mmol/L (98-107); Estimated GFR (African America >60 (>=60 mL/min/1.73m^2); Estimated GFR (Non-African Ame >60 (>=60 mL/min/1.73m^2); Globulin 4.4 g/dL; Glucose 94 mg/dL (74-106); Potassium 3.8 mmol/L (3.5-5.1); Sodium 140 mmol/L (136-145); Total Protein 7.6 g/dL (6.4-8.2); Troponin I High Sensitivity <4.0 pg/mL (4.0-51.3)
--- NOTE | 2025-03-19 15:16 | ED_ITS ---
HPI - Weakness General Chief complaint: Weakness Stated complaint: WEAKNESS Time Seen by Provider: 03/19/25 13:54 Mode of arrival: ambulance History of Present Illness HPI Narrative: The patient is a full 24-year-old female that comes to the ER with generalized weakness she mentioned that she felt like she is going to pass out at work, the patient denies any other complaint at the moment she also mentioned that she had history of possible pseudoseizures, the patient denies any headache nausea vomiting or any other complaints she did not follow-up with neurology yet The patient mentioned that she have no chest pain no nausea no vomiting no diarrhea Related Data Allergies Allergy/AdvReac Type Severity Reaction Status Date / Time Penicillins Allergy Unknown Rash Verified 03/19/25 13:50 Review of Systems ROS Status of ROS 10 or more systems reviewed and unremark able except as noted in history and below PFSH PFSH Social History Little interest or pleasure in doing things: not at all Feeling down, depressed, or hopeless: not at all Exam Narrative Exam Narrative: Nurses notes and vital signs reviewed and patient is not hypoxic. General: Well-appearing and in no apparent distress. Skin: Warm, dry, no pallor noted. No rash. Head: Normocephalic, atraumatic. Neck: Supple, non-tender. Eye: Pupils are equal, round and EOMI. No scleral icterus. Ears, Nose, Mouth, and Throat: TM are clear, no nasal mucosal hypertrophy. Oral mucosa is moist, no posterior oropharynx erythema, uvula is mid-line Cardiovascular: Regular Rate and Rhythm without murmur, gallop or rub. Respiratory: No accessory muscle use or respiratory distress. Lungs are clear to auscultation, no wheezing, rales or rhonchi Chest Wall: no tenderness Back: No midline thoracic or lumbar vertebral tenderness. No CVA tenderness Musculoskeletal: normal ROM, no calf or popliteal tenderness, no lower extremity edema/swelling GI: Abdomen is soft, non-distended. Normal bowel sounds. No masses appreciated. No tenderness to palpation. No rebound, guarding, or rigidity noted. Neurological: A&O x4. No cranial nerve dysfunction observed. No truncal ataxia. Moves all extremities. Sensation intact. Psychiatric: Cooperative and interactive. Normal mood and affect. Constitutional Vital Signs, click to edit/add: Last Vital Signs Temp 98.5 F 03/19/25 13:50 Pulse 83 03/19/25 13:50 Resp 20 03/19/25 13:50 BP 147/97 H 03/19/25 13:50 Pulse Ox 98 03/19/25 13:50 O2 Del Method Room Air 03/19/25 13:50 Course Vital Signs Vital signs: Vital Signs Temperature 98.5 F 03/19/25 13:50 Pulse Rate 83 03/19/25 13:50 Respiratory Rate 20 03/19/25 13:50 Blood Pressure 147/97 H 03/19/25 13:50 Pulse Oximetry 98 03/19/25 13:50 Oxygen Delivery Method Room Air 03/19/25 13:50 Temperature 98.5 F 03/19/25 13:50 Pulse Rate 83 03/19/25 13:50 Respiratory Rate 20 03/19/25 13:50 Blood Pressure 147/97 H 03/19/25 13:50 Pulse Oximetry 98 03/19/25 13:50 Oxygen Delivery Method Room Air 03/19/25 13:50 MDM - Weakness MDM Narrative Medical decision making narrative: The patient CBC and chemistry showed no acute pathology in the ER The patient EKG showing sinus rhythm with a heart rate of [address] elevation or depression The patient mentions some joint pain at the review of system and that could be reason for mild viral illness although the patient's symptoms are nonspecific Provide this moment could not find a reason for her generalized weakness she just need to follow-up with neurology as outpatient as she was advised before The patient is to follow up with primary care physician in next 2-3 days or to return to the emergency department should any of the signs or symptoms worsen or new symptoms develop. The patient agrees with the following Diagnosis and Treatment plan and the patient will be discharged home. Lab Data Labs: Lab Results 03/19/25 Range/Units 14:09 WBC 9.7 (4.0-11.0) 10^3/uL RBC 4.54 (4.20-5.40) 10^6/uL Hgb 13.4 (12.0-16.0) g/dL Hct 39.4 (36.0-48.0) % MCV 86.8 (81.0-99.0) fL MCH 29.5 (26.7-34.0) pg MCHC 34.0 (29.9-35.2) g/dL RDW 12.9 (11.0-15.0) % Plt Count 272 (150-450) 10^3/uL MPV 10.2 (9.5-13.5) fL Neut % (Auto) 63.7 (43.0-75.0) % Lymph % (Auto) 27.0 (20.5-60.0) % [place] % (Auto) 6.2 (1.7-12.0) % Eos % (Auto) 2.3 (0.9-7.0) % Baso % (Auto) 0.5 (0.2-2.0) % Neut # (Auto) 6.2 (1.4-6.5) 10^3/uL Lymph # (Auto) 2.6 (1.2-3.8) 10^3/uL [place] # (Auto) 0.6 (0.3-0.8) 10^3/uL Eos # (Auto) 0.2 (0.0-0.7) 10^3/uL Baso # (Auto) 0.1 (0.0-0.1) 10^3/uL Abs Immat Gran (auto) 0.03 (0.00-0.03) 10^3/uL Imm/Tot Granulo (auto) 0.3 (0.0-0.5) % Sodium 140 (136-145) mmol/L Potassium 3.8 (3.5-5.1) mmol/L Chloride 103 (98-107) mmol/L Carbon Dioxide 24.5 (21.0-32.0) mmol/L Anion Gap 16.3 BUN 16.0 (7.0-18.0) mg/dL Creatinine 0.68 (0.55-1.02) mg/dL Est GFR ( Amer) >60 (>=60 mL/min/1.73m^2) Est GFR (Non-Af Amer) >60 (>=60 mL/min/1.73m^2) BUN/Creatinine Ratio 23.5 Glucose 94 (74-106) mg/dL Calcium 9.4 (8.5-10.1) mg/dL Magnesium 1.8 (1.8-2.4) mg/dL Total Bilirubin 0.2 (0.2-1.0) mg/dL AST 18 (15-37) U/L ALT 26 (14-59) U/L Alkaline Phosphatase 102 (46-116) U/L Troponin I High Sens <4.0 L (4.0-51.3) pg/mL Total Protein 7.6 (6.4-8.2) g/dL Albumin 3.2 L (3.4-5.0) g/dL Globulin 4.4 g/dL Albumin/Globulin Ratio 0.7 Serum HCG, Qual Negative (NEGATIVE) Discharge Plan Discharge Chief Complaint: Weakness Clinical Impression: Weakness Patient Disposition: Home, Self-Care Time of Disposition Decision: 15:25 Condition: Good Print Language: Bhutanese Instructions: Weakness (ED) Referrals: Manuel Schwartz MD [Primary Care Provider, Family Practice] - 1 week Discharge Date/Time: 03/19/25 15:46
[2025-03-22 13:22] LABS: Glucometer 90 mg/dL (74-106)
== END 2025-03-19 15:46 | disposition home or self-care (01) ==
PROVIDERS: Emergency Provider Emergency Medicine; PCP Family Medicine
DX: R53.1 Weakness (principal)
CPT/HCPCS: 36415; 80053; 82948; 83735; 84484; 84703; 85025; 93005; 99284

== ENCOUNTER 2025-05-24 10:56 | Outpatient (OUT) | payer SELFPAY ==
--- OUTSIDE RECORDS SUMMARY | 2025-05-24 10:59 | XMS_ITS | Encounter Summary ---
Author Organization [facility] Address [address] [place] [address] Care Team Providers Care Service Supervisor Name Role Phone Manuel Schwartz MD Primary Care Provider [phone] Manuel Schwartz MD Unavailable Encounter Details Date Type Department Care Team (Late st Contact Info) Description 02/09/2025 Results Follow-Up [facility] [address] [place] [address] Ranjana Malave LPN [address] [place] [address] Social History Tobacco Use Types [...] week 03/02/2024 How often do you attend mandaeism or orthodox serv ices? Never 03/02/2024 Active Member [...] place to sleep or slept in a long term (including now)? No 03/02/2024 Comments Unknown Sex [...] Care Team (Late st Contact Info) Description 06/07/2025 1:50 PM EDT Routine [facility] [address] [place] [address] Jefferson Howard, DO [address] [place] [address] 08/02/2025 1:40 PM EDT Procedure Visit [facility] [address] [place] [address] Jefferson Howard, [address] [place] [address] documented as of this encounter Visit Diagnoses Not on filedocumented in this encounter Care Teams Service Supervisor Relationship Specialty Start Date End Date Manuel Schwartz MD [address] [place] [address] PCP - General Family Medicine 03/02/24 Manuel Schwartz MD [address] [place] [address] PCP - [facility] 07/20/24 documented as of this encounter
--- OUTSIDE RECORDS SUMMARY | 2025-05-24 10:59 | XMS_ITS | Encounter Summary ---
Author Organization [facility] Address [address] [place] [address] Care Team Providers Care Trauma Doctor Name Role Phone Manuel Schwartz MD Primary Care Provider [phone] Manuel Schwartz MD Unavailable Encounter Details Date Type Department Care Team (Late st Contact Info) Description 01/21/2025 Abstract [facility] [address] [place] [address] Jefferson Howard DO [address] [employer] [address] [place], [place] [id number] Social History Tobacco Use Types Packs/Day Years [...] week 03/02/2024 How often do you attend adventist or temple serv ices? Never 03/02/2024 Active Member of [...] place to sleep or slept in a skilled nursing (including now)? No 03/02/2024 Comments Unknown Sex and Gender Information Value Date Recorded Sex Assigned at Not on file Legal Sex Female 8:14 PM EDT Gender Identity Not on file Sexual Orientation Not on file documented as of this encounter Plan of Treatment Upcoming Encounters Date Type Department Care Team (Late st Contact Info) Description 06/07/2025 1:50 PM EDT Routine [facility] [address] [place] [address] Jefferson Howard DO [address] [facility] [address] [place] [facility]11 08/02/2025 1:40 PM EDT Procedure Visit [facility]AR WOR[facility] [address] [place] [address] Jefferson Howard DO [address] [place] [address] documented as of this encounter Visit Diagnoses Not on filedocumented in this encounter Care Teams Trauma Doctor Relationship Specialty Start Date End Date Manuel Schwartz MD [address] [place] [address] PCP - General Family Medicine 03/02/24 Manuel Schwartz MD [address] [place] [address] PCP - [facility] 07/20/24 documented as of this encounter
--- OUTSIDE RECORDS SUMMARY | 2025-05-24 10:59 | XMS_ITS | Encounter Summary ---
Author Organization [facility] Address [address] [place] [address] Care Team Providers Care Sprinkler Driver Name Role Phone Manuel Schwartz MD Primary Care Provider [phone] Manuel Schwartz MD Unavailable Encounter Details Date Type Department Care Team (Late st Contact Info) Description 01/17/2025 Abstract [facility] [address] [email or web address] [address] Jefferson Howard DO [address] [place] [place], [place] [id number] Social History Tobacco Use Types Packs/Day Years [...] week 03/02/2024 How often do you attend mormonism or confucianist serv ices? Never 03/02/2024 Active Member of [...] 1:50 PM EDT Routine [facility] [address] [place] [address] Jefferson Howard DO [address] [facility] [address] [place] [facility] 08/02/2025 1:40 PM EDT Procedure Visit [facility]AR WOR[facility] [address] [facility] [place] [address] Jefferson Howard DO [address] [place] [address] documented as of this encounter Visit Diagnoses Not on filedocumented in this encounter Care Teams Sprinkler Driver Relationship Specialty Start Date End Date Manuel Schwartz MD [address] [place] [address] PCP - General Family Medicine 03/02/24 Manuel Schwartz MD [address] [place] [address] PCP - [facility] 07/20/24 documented as of this encounter
--- OUTSIDE RECORDS SUMMARY | 2025-05-24 10:59 | XMS_ITS | Encounter Summary ---
Author Organization [facility] Address [address] [place] [address] Care Team Providers Care Hammer Runner Name Role Phone Manuel Schwartz MD Primary Care Provider [phone] Manuel Schwartz MD Unavailable Encounter Details Date Type Department Care Team (Late st Contact Info) Description 02/09/2025 Orders Only [facility] [address] [place] [place] [address] Manuel Schwartz MD [address] [place] [place] [address] Social History Tobacco Use Types Packs/Day Years [...] week 03/02/2024 How often do you attend pentecostalism or taoist serv ices? Never 03/02/2024 Active Member of [...] place to sleep or slept in a prison (including now)? No 03/02/2024 Comments Unknown Sex and Gender Information Value Date Recorded Sex Assigned at Not on file Legal Sex Female 8:14 PM EDT Gender Identity Not on file Sexual Orientation Not on file documented as of this encounter Plan of Treatment Upcoming Encounters Date Type Department Care Team (Late st Contact Info) Description 06/07/2025 1:50 PM EDT Routine [facility] [address] [place] [address] [place] [address] Jefferson Howard DO [address] [facility] [place] [address] 08/02/2025 1:40 PM EDT Procedure Visit [facility]AR WOR[facility] [address] [facility] [place] [address] Jefferson Howard DO [address] [place], [place] [address] documented as of this encounter Procedures Procedure Name Priority Date/Time Associated Diagnosis Comments SCANNED LABS Routine 02/09/2025 2:43 PM EDT documented in this encounter Results * SCANNED LABS (02/09/2025 2:43 PM EDT) Manuel Schwartz MD LAB CHG PERFORMABLES Final Resul t documented in this encounter Visit Diagnoses Not on filedocumented in this encounter Care Teams Hammer Runner Relationship Specialty Start Date End Date Manuel Schwartz MD [address] [place] [address] PCP - General Family Medicine 03/02/24 Manuel Schwartz MD [address] [place] [address] PCP - [facility] 07/20/24 documented as of this encounter
--- OUTSIDE RECORDS SUMMARY | 2025-05-24 10:59 | XMS_ITS | Encounter Summary ---
Author Organization [facility] Address [address] [place] [address] Care Team Providers Care Drafting Supervisor Name Role Phone Manuel Schwartz MD Primary Care Provider [phone] Manuel Schwartz MD Unavailable Encounter Details Date Type Department Care Team (Late st Contact Info) Description 09/07/2024 Orders Only [facility] [address] [place] [address] Mir Silva MD [address] [place] [phone] Social History Tobacco Use Types Packs/Day Years [...] week 03/02/2024 How often do you attend religious or restorationism serv ices? Never 03/02/2024 Active Member of [...] place to sleep or slept in a correction (including now)? No 03/02/2024 Comments Unknown Sex and Gender Information Value Date Recorded Sex Assigned at Not on file Legal Sex Female 8:14 PM EDT Gender Identity Not on file Sexual Orientation Not on file documented as of this encounter Plan of Treatment Upcoming Encounters Date Type Department Care Team (Late st Contact Info) Description 06/07/2025 1:50 PM EDT Routine [facility] [address] [place] [address] [place] [address] Jefferson oHward DO [address] [place] [address] 08/02/2025 1:40 PM EDT Procedure Visit [facility]AR WOR[facility] 102 [place] [address] Jefferson Howard DO [address] [place], [place] [address] documented as of this encounter Procedures Procedure Name Priority Date/Time Associated Diagnosis Comments SCANNED LABS Routine 09/07/2024 2:12 PM EST documented in this encounter Results * SCANNED LABS (09/07/2024 2:12 PM EST) us Mir Silva MD LAB CHG PERFORMABLES Final Resu lt documented in this encounter Visit Diagnoses Not on filedocumented in this encounter Care Teams Drafting Supervisor Relationship Specialty Start Date End Date Manuel Schwartz MD [address] [place] [address] PCP - General Family Medicine 03/02/24 Manuel Schwartz MD [address] [place] [address] PCP - [facility] 07/20/24 documented as of this encounter
--- OUTSIDE RECORDS SUMMARY | 2025-05-24 10:59 | XMS_ITS | Clinical Summary ---
Author Organization [facility] Address [address] [place] [address] Care Team Providers Care Field Installation Technician Name Role Phone Manuel Schwartz MD Primary Care Provider [phone] Manuel Schwartz MD Unavailable Allergies Active Allergy Reactions Criticality Noted Date Comments Penicillins Unknown 2000 Medications ondansetron (Zofran) 4 MG tabletIndicatio ns:Right ovarian cyst,Nausea,PCO S (polycystic ovarian syndrome) Take 1 tablet (4 mg) by mouth every 6 (six) hours if needed for nausea or vomiting for up to 30 doses Take 1 tablet by mouth every 6 hours as needed for nausea. 30 tablet 3 05/05/20 25 Active omeprazole (PriLOSEC) [address] capsuleIndicati ons:Gastroesoph ageal reflux disease, unspecified whether esophagitis present Take 1 capsule (40 mg) by mouth in the morning and 1 capsule (40 mg) in the evening. Take before meals. 60 capsule 5 05/05/20 25 Active promethazine (Phenergan) 12.5 MG tablet Take by mouth 025 Discontinued omeprazole (PriLOSEC) [address] capsuleIndicati ons:Gastroesoph ageal reflux disease, unspecified whether esophagitis present Take 1 capsule (40 mg) by mouth in the morning and 1 capsule (40 mg) in the evening. Take before meals. 60 capsule 5 03/02/20 24 025 Discontinued(Re order) ondansetron (Zofran) 4 MG tabletIndicatio ns:Right ovarian cyst,Nausea,PCO S (polycystic ovarian syndrome) Take 1 tablet (4 mg) by mouth every 6 (six) hours if needed for nausea or vomiting for up to 30 doses Take 1 tablet by mouth every 6 hours as needed for nausea. 30 tablet 3 11/11/19 25 025 Discontinued(Re order) norgestimate-et hinyl estradiol (Sprintec 28) 0.25-35 MG-MCG tabletIndicatio ns: control counseling Take 1 tablet by mouth Daily for 28 days Take 1 tablet by mouth daily 28 tablet 11 12/23/19 25 025 Discontinued(Th erapy completed) Active Problems Problem Noted Date Diagnosed Date Right sided sciatica 06/01/2024 Assessment & Plan (06/01/2024 1:53 PM EDT): Recent pain and treat with prednisone. Use flexeril PRN. Check x-ray and start PT. Amenorrhea 04/28/2024 Assessment & Plan (04/28/2024 2:19 PM EDT): Concerned of possible and check labs. Major depressive disorder, recurrent episode, mi ld 03/02/2024 Assessment & Plan (06/01/2024 1:53 PM [...] Weight loss indicated Annual physical exam 03/02/2024 Estimated Date of Delivery Comme nts Yes 12/26/2025 Based on Ultraso und, FHR- 136 Resolved Problems Problem Noted Date Diagnosed Date [...] Encounters Date Type Department Care Team Description 05/05/2025 2:00 PM [place] [address] [place]: 6w3d 05/05/2025 1:30 PM EDT Ancillary Procedure [facility] Emma WORLEY [address] [place] [address] Missed menses; Positive urine test ([facility]) 04/15/2025 Patient Outreach [facility] [address] [place] [address] Susan Boucher LSW 03/24/2025 Patient Outreach [facility] [address] [place] [address] Joe Gaines MA from Last 3 Months Social History Tobacco [...] week 03/02/2024 How often do you attend yazidism or druze serv ices? Never 03/02/2024 Active Member of [...] place to sleep or slept in a retirement (including now)? No 03/02/2024 Estimated Date of Delivery Comme nts Yes 12/26/2025 Based on Ultraso und, FHR- 136 Sex and Gender Information Value Date Recorded Sex Assigned at Not on file Legal Sex Female 8:14 PM EDT Gender Identity Not on file Sexual Orientation Not on file Last Filed Vital Signs Vital Sign Reading Time Taken Comments Blood Pressure 110/70 05/05/2025 2:05 PM EDT Pulse 108 06/01/2024 1:21 PM EDT Temperature 36.6 C (97.8 F) 06/01/2024 1:21 PM EDT Respiratory Rate 22 06/01/2024 1:21 PM EDT Oxygen Saturation 99% 06/01/2024 1:21 PM EDT Inhaled Oxygen Concentration - - Weight 128 kg (283 lb 3.2 oz) 05/05/2025 2:05 PM EDT Height 154.9 cm (5' 1 ) 06/01/2024 1:21 PM EDT Body Mass Index 53.51 06/01/2024 1:21 PM EDT Plan of Treatment Upcoming Encounters Date Type Department Care Team (Late st Contact Info) Description 06/07/2025 1:50 PM EDT Routine [facility] [address] [place] [address] [place] [address] Jefferson Howard, DO [address] [place], [place] [address] 08/02/2025 1:40 PM EDT Procedure Visit [facility]AR WOR[facility] [address] [place] [address] [place] [address] Jefferson Howard, DO [address] [facility] [address] [place], [place] [id number] Health Maintenance Due Date Last Done Comments Influenza Vaccine (#1) 2025 Procedures Procedure Name Priority Date/Time Associated Diagnosis Comments POCT URINALYSIS DIPSTICK Routine 05/05/2025 2:17 PM EDT Missed menses POCT , URINE Routine 05/05/2025 2:16 PM EDT Missed menses OB TRANSVAGINAL Routine 05/05/2025 1: 50 PM EDT Missed menses Positive urine test ([facility]) from Last 3 Months Results * (ABNORMAL) POCT urinalysis dipstick manually resulted (05/05/2025 2:17 PM EDT) Color, UA Yellow Clarity, UA Clear Glucose, UA Negative Negative - 2000(110) ++++ mg/dL Bilirubin, UA Negative Negative - 4(70) +++ mg/dL Ketones, UA Negative Negative - 160(16) ++++ mg/dL Spec Grav, UA 1.025 1 - 1.03 Blood, UA Negative Negative - 50 Lincoln/mcL pH, UA 7.0 5 - 9 Protein, UA Trace Negative - 1999(20) ++++ mg/dL Urobilinogen, UA 1.0 0.2 - 12 mg/dL Leukocytes, UA Negative Negative - 500+++ Skyler/mcL Nitrite, UA Negative Negative - Positive Urine 05/05/2025 2:17 PM EDT us Jefferson Anita DO POINT OF CARE TEST ENTER/EDIT OR DERABLES Final Result * (ABNORMAL) POCT , urine manually resulted (05/05/2025 2:16 PM EDT) Preg Test, Ur Positive Negative Urine 05/05/2025 2:16 PM EDT us Jefferson Anita DO POINT OF CARE TEST ENTER/EDIT OR DERABLES Final Result * US OB transvaginal (05/05/2025 1:50 PM EDT) Anatomical Region Laterality Modality Body Ultrasound 05/05/2025 2:25 PM EDT Impressions 05/05/2025 2:31 PM EDT Findings consistent with a live intrauterine gestation, current sonographic age of 6 weeks and 3 days resulting in an estimated date of delivery of December 26, 2025. TRANSCRIBED BY: ELECTRONICALLY SIGNED BY: Kenneth Arce MD Narrative 05/05/2025 2:31 PM EDT FINDINGS: A single intrauterine gestational sac is present. No subchorionic hemorrhage. A single pole is present. Normal heart rate at 136 beats per minute. Yolk sac also is seen. Current sonographic age is 6 weeks and 3 days based on the crown-rump length measurement of 6 mm. Based on this age, current estimated date of delivery is December 26, 2025. No pelvic fluid or adnexal mass present. Cervix closed. Right ovarian 2.5 x 2.8 cm corpus luteum cyst. Procedure Note Kenneth Arce MD - 05/05/2025 FINDINGS: A single intrauterine gestational sac is present. No subchorionichemorrhage. A single pole is present. Normal heart rate at136 beats per minute. Yolk sac also is seen. Current sonographic age is6 weeks and 3 days based on the crown-rump length measurement of 6 mm.Based on this age, current estimated date of delivery is December 26, 2025.No pelvic fluid or adnexal mass present. Cervix closed. Right ovarian2.5 x 2.8 cm corpus luteum cyst. IMPRESSION: Findings consistent with a live intrauterine gestation, currentsonographic age of 6 weeks and 3 days resulting in an estimated date ofdelivery of December 26, 2025. TRANSCRIBED BY: ELECTRONICALLY SIGNED BY: Kenneth Arce MD us Jefferson Anita DO IMG OB US PROCEDURES Final Resul t from Last 3 Months Insurance [employer] Care Teams Field Installation Technician Relationship Specialty Start Date End Date Manuel Schwartz MD [address] [place] [address] PCP - General Family Medicine 03/02/24 Manuel Schwartz MD [address] [place] [address] PCP - [facility] 07/20/24
--- OUTSIDE RECORDS SUMMARY | 2025-05-24 11:00 | XMS_ITS | Encounter Summary ---
Author Organization [facility] Address [address] [place] [address] Care Team Providers Care General Supervisor Name Role Phone Manuel Noel MD Primary Care Provider [phone] Manuel Noel MD Unavailable Encounter Details Date Type Department Care Team (Late st Contact Info) Description 06/03/2024 Clinisync Result Encounter [facility] External Department Unsolicited Manuel Noel MD [address] [place] [address] Social History Tobacco Use Types Packs/Day Years [...] week 03/02/2024 How often do you attend jewish or scientology serv ices? Never 03/02/2024 Active Member of [...] place to sleep or slept in a long-term (including now)? No 03/02/2024 Comments Unknown Sex and Gender Information Value Date Recorded Sex Assigned at Not on file Legal Sex Female 8:14 PM EDT Gender Identity Not on file Sexual Orientation Not on file documented as of this encounter Plan of Treatment Upcoming Encounters Date Type Department Care Team (Late st Contact Info) Description 06/07/2025 1:50 PM EDT Routine [facility] [address] [place] [address] [place] [address] Jefferson Howard DO [address] [facility] [address] [place], [place] [address] 08/02/2025 1:40 PM EDT Procedure Visit [facility]AR WORLEY [address] [facility] [address] Jefferson Howard DO [address] [place], [place] [address] documented as of this encounter Procedures Procedure Name Priority Date/Time Associated Diagnosis Comments XR LUMBAR SPINE 2 OR 3V 06/03/2024 1:10 PM EDT documented in this encounter Results * XR LUMBAR SPINE 2 OR 3V (06/03/2024 1:10 PM EDT) Anatomical Region Laterality Modality Radiographic Arleen ging 06/03/2024 1:10 PM EDT Narrative 06/03/2024 1:13 [place] [address] XRay Report Signed Patient: MANISH ROMERO MR#: [id number] : 2000 Acct:[id number] Age/Sex: 23 / F ADM Date: 06/01/24 Loc: RAD Attending Dr: Manuel Noel M.D. Ordering Physician: Manuel Noel M.D. Date of Service: 06/01/24 Procedure(s): XR lumbar spine 2-3V Accession Number(s): [id number] cc: Manuel Noel M.D. The [place] [address] Patient Name: MANISH ROMERO MRN: [id number] date: 2000 Sex: F Assigned Patient Location: [facility] Current Patient Location: Accession/Order Number: [id number] Exam Date: 06/01/2024 14:19 Report Date: 06/03/2024 [...] By: Duarte Johansen M.D. Signed By: 06/03/24 1319 DD/ 1310 TD/TT: Supervisor Order Takers: Procedure Note Radiology, Radiologist, MD - 06/03/2024 The [place] [id number] XRay Report Signed Patient: MANISH ROMERO LMR#: [id number] : 2000Acct:[id number] Age/Sex: 23 / FADM Date: 06/01/24 Loc: [facility] Attending Dr: Manuel Noel M.D. Ordering Physician: Manuel Noel M.D. Date of Service: 06/01/24 Procedure(s): XR lumbar spine 2-3V Accession Number(s): [id number] cc: Manuel Noel M.D. [place] [address] Patient Name: MANISH ROMERO MRN: [id number] date: 2000 Sex: F Assigned Patient Location: [facility] Current Patient Location: Accession/Order Number: [id number] Exam Date: 06/01/2024 14:19 Report Date: 06/03/2024 [...] M.D. Signed By:06/03/24 1313 DD/ 1310 TD/TT: Supervisor Order Takers: Manuel Noel MD IMG XR PROCEDURES Final Result documented in this encounter Visit Diagnoses Not on filedocumented in this encounter Care Teams General Supervisor Relationship Specialty Start Date End Date Manuel Noel MD [address] [place] [address] PCP - General Family Medicine 03/02/24 Manuel Noel MD [address] [place] [address] PCP - [facility] 07/20/24 documented as of this encounter
--- OUTSIDE RECORDS SUMMARY | 2025-05-24 11:00 | XMS_ITS | Encounter Summary ---
Author Organization [facility] Address [address] [facility] [place] [address] Care Team Providers Care Mold Repairer Name Role Phone Manuel Schwartz MD Primary Care Provider [phone] Manuel Schwartz MD Unavailable Encounter Details Date Type Department Care Team (Late st Contact Info) Description 06/10/2024 Orders Only [facility] [address] [place] [address] Manuel Schwartz MD [address] [place] [address] Social History Tobacco Use Types Packs/Day Years [...] How often do you attend rastafarian or latter day serv ices? Never 03/02/2024 Active Member of [...] 1:50 PM EDT Routine [facility] WOR[facility] [address] [place] [address] Jefferson Howard DO [address] [facility] [address] [place] [place], [place] [id number] 08/02/2025 1:40 PM EDT Procedure Visit [facility] [address] [facility] [place] [address] Jefferson Howard DO [address] [place], [place] [address] documented as of this encounter Procedures Procedure Name Priority Date/Time Associated Diagnosis Comments ELECTROCARDIOGRAM REPORT Routine 024 1:41 PM EDT documented in this encounter Results * Electrocardiogram Report (06/09/2024 1:41 PM EDT) Manuel Schwartz MD IN CLINIC/BEDSIDE ORDERABLES Fin al Result documented in this encounter Visit Diagnoses Not on filedocumented in this encounter Care Teams Mold Repairer Relationship Specialty Start Date End Date Manuel Schwartz MD [address] [place] [address] PCP - General Family Medicine 03/02/24 Manuel Schwartz MD [address] [place] [address] PCP - [facility] 07/20/24 documented as of this encounter
--- OUTSIDE RECORDS SUMMARY | 2025-05-24 11:00 | XMS_ITS | Clinical Summary ---
Author Organization [employer] tem Address [id number] [address] [place] [address] Care Team Providers Care Airline Ticket Agent Name Role Phone Manuel Schwartz MD Primary Care Provider [phone] Allergies Active Allergy Reactions Criticality Noted Date Comments Penicillins 01/21/2019 Medications omeprazole (PriLOSEC) 20 mg capsule Take 1 capsule (20 mg total) by mouth in the morning. Active norethindrone-e.es tradioL-iron (ESTROSTEP FE) 1-20(5)/1-30(7) /1mg-35mcg (9) tablet Take 1 tablet by mouth in the morning. Active ibuprofen (ADVIL,MOTRIN) 800 mg tablet Take [...] to 10 doses. 10 tablet 4 Active 21-iron fu-folic acid ( COMPLETE) 14 mg iron- 400 mcg tablet Take 1 tablet by mouth in the morning for 30 days. 30 tablet 1 05/14/20 25 Encounters Date Type Department Care Team Description 04/14/2025 2:08 AM EDT - 04/14/2025 3:08 AM EDT Emergency [facility] - Emergency [address] [place] [address] Zaki Dennis MD Early stage of (Primary Dx) Discharge Disposition: Home from Last 3 Months Social History Tobacco [...] Purpose and direction in life Unknown Comments Yes Sex and Gender Information Value Date Recorded Sex Assigned at Not on file Legal Sex Female 6:13 PM EDT Gender Identity Not on file Sexual Orientation Not on file Last Filed Vital Signs Vital Sign Reading Time Taken Comments Blood Pressure 130/88 04/14/2025 2:13 AM EDT Pulse 86 04/14/2025 2:13 AM EDT Temperature 36.7 C (98.1 F) 04/14/2025 2:13 AM EDT Respiratory Rate 18 04/14/2025 2:13 AM EDT Oxygen Saturation 98% 04/14/2025 2:13 AM EDT Inhaled Oxygen Concentration - - Weight 127 kg (280 lb) 04/14/2025 2:13 AM EDT Height 154.9 cm (5' 1 ) 04/14/2025 2:13 AM EDT Body Mass Index 52.91 04/14/2025 2:13 AM EDT Plan of Treatment Health Maintenance Due Date Last Done Comments Depression Screening 2012 Adult BMI Follow Up Plan 2018 Pap Smear 2021 DTaP,Tdap and Td Vaccines (7 - Td or Tdap) 02/17/2023 02/17/2013, 10/31/2004, 02/02/2002, Additional history exists Influenza Vaccine 06/20/2025 08/02/2016 Adult BMI Screening 04/14/2026 04/14/2025 Tobacco Screening 04/14/2026 04/14/2025 Medical Devices Not on file Procedures Procedure Name Priority Date/Time Associated Diagnosis Comments POCT , URINE (NUCG) Routine 04/14/2025 2:55 AM EDT POCT NURSING URINE MACROSCOPIC UA Routine 04/14/2025 2:53 AM EDT ER EXTRA URINE MARBLE STAT 04/14/2025 2:42 AM EDT ER EXTRA URINE CULTURE STAT 04/14/2025 2:42 AM EDT ER EXTRA URINE STAT 04/14/2025 2:42 AM EDT from Last 3 Months Results * (ABNORMAL) POCT , urine (04/14/2025 2:55 AM EDT) POC Urine Positive( A) Negative, Indeterminate 04/14/2025 2:51 AM EDT [facility] Urine 04/14/2025 2:55 AM EDT 04/14/2025 2:51 AM EDT us Zaki Dennis MD POINT OF CARE TEST ORDERABL ES Final Result [facility] [address] [place] [address], [place] * (ABNORMAL) POCT Nursing Urine Macroscopic UA (04/14/2025 2:53 AM EDT) POC Urine Specific [place] >=1.030(A) 1.010, 1.015, 1.020, 1.025 04/14/2025 2:46 AM EDT [facility] POC Urine Leukocyte Esterase Negative Negative 04/14/2025 2:46 AM EDT [facility] POC Urine Nitrite Negative Negative 04/14/2025 2:46 AM EDT [facility] POC Urine pH 6.5 5.0, 6.0, 6.5, 7.0, 7.5, 8.0, 8.5, 5.5 04/14/2025 2:46 AM EDT [facility] POC Urine Protein 100 mg/dL(A) Negative 04/14/2025 2:46 AM EDT [facility] POC Urine Glucose Negative Negative 04/14/2025 2:46 AM EDT [facility] POC Urine Ketones Negative Negative 04/14/2025 2:46 AM EDT [facility] POC Urine Urobilinogen 0.2 E.U./dL 04/14/2025 2:46 AM EDT [facility] POC Urine Bilirubin Negative Negative 04/14/2025 2:46 AM EDT [facility] POC Urine Blood/HGB Trace(A) Negative 04/14/2025 2:46 AM EDT [facility] Urine 04/14/2025 2:53 AM EDT 04/14/2025 2:46 AM EDT us Zaki Dennis MD POINT OF CARE TEST ORDERABL ES Final Result [facility] [address] [place] [address], * Extra Urine Mead (04/14/2025 2:42 AM EDT) Extra Tube Auto Resulted 04/14/2025 4:02 AM EDT [facility] Urine Urine specimen collection, clean catch / Unknown Collection / Unknown 04/14/2025 2:42 AM EDT 04/14/2025 3:39 AM EDT us Zaki Dennis MD URINE ORDERABLES Final Resu lt Performing Organization Address [facility] Co de Phone Number [address] [place] [address], [place] * Extra Urine Culture (04/14/2025 2:42 AM EDT) Extra Tube Auto Resulted 04/14/2025 4:02 AM EDT [facility] Urine Urine specimen collection, clean catch / Unknown Collection / Unknown 04/14/2025 2:42 AM EDT 04/14/2025 3:39 AM EDT us Zaki Dennis MD URINE ORDERABLES Final Resu lt Performing Organization Address [facility] Co de Phone Number [address] [place] [address], [place] * Extra Urine (04/14/2025 2:42 AM EDT) Extra Tube Auto Resulted 04/14/2025 4:02 AM EDT [facility] Urine Urine specimen collection, clean catch / Unknown Collection / Unknown 04/14/2025 2:42 AM EDT 04/14/2025 3:39 AM EDT us Zaki Dennis MD URINE ORDERABLES Final Resu lt Performing Organization Address City/[facility] Co de Phone Number [address] [place] [address], [place] from Last 3 Months Insurance [employer] Care Teams Airline Ticket Agent Relationship Specialty Start Date End Date Manuel Schwartz MD PCP - General Family Medicine 01/21/19
[2025-05-24 12:03] LABS: Hematocrit 35.4 % (36.0-48.0); Hemoglobin 11.9 g/dL (12.0-16.0); Immature Granulocytes Abs Auto 0.02 10^3/uL (0.00-0.03); Immature Granulocytes Pct Auto 0.3 % (0.0-0.5); Lymphocytes Absolute Auto 2.5 10^3/uL (1.2-3.8); Mean Corpuscular HGB Conc 33.6 g/dL (29.9-35.2); Mean Corpuscular Hemoglobin 29.5 pg (26.7-34.0); Mean Corpuscular Volume 87.8 fL (81.0-99.0); Platelet Count 213 10^3/uL (150-450); Red Blood Count 4.03 10^6/uL (4.20-5.40); White Blood Count 7.6 10^3/uL (4.0-11.0)
[2025-05-24 13:30] LABS: Cannabinoid Screen Urine NEGATIVE (NEGATIVE); Methamphetamines Screen Urine NEGATIVE (NEGATIVE); Tricyclic Antidepressant Urine NEGATIVE (NEGATIVE)
[2025-05-25 06:12] LABS: Rubella Antibodies, IgG 2.91 index (Immune >0.99)
[2025-05-25 13:08] LABS: Rapid Plasma Reagin, Quant Non Reactive titer (NonRea<1:1)
== END 2025-05-24 10:57 | disposition home or self-care (01) ==
PROVIDERS: PCP Family Medicine; Visit Provider Obstetrics & Gynecology
DX: Z34.01 Encounter for supervision of normal first pregnancy, first trimester (principal); N92.6 Irregular menstruation, unspecified
CPT/HCPCS: 36415; 80307; 83036; 85025; 86592; 86762; 86803; 86850; 86900; 86901; 87086; 87340; 87389

== ENCOUNTER 2025-06-07 15:32 | Outpatient (OUT) | payer OTHER, SELFPAY ==
--- OUTSIDE RECORDS SUMMARY | 2025-06-07 13:50 | XMS_ITS | Encounter Summary ---
Author Organization [facility] Address [address] [place] [address] Care Team Providers Care Shipyard Painter Apprentice Name Role Phone Manuel Schwartz MD Primary Care Provider [phone] Manuel Schwartz MD Unavailable Reason for Visit * Reason Comments Routine Visit Encounter Details Date Type Department Care Team (Late st Contact Info) Description 06/07/2025 1:50 PM EDT Routine [facility] [place] [facility] [address] [place] [address] Jefferson Howard DO [address] [place] [id number] First trimester ([facility]); 11 weeks gestation of ([facility]); Right ovarian cyst; Nausea; PCOS (polycystic ovarian syndrome) Social History Tobacco Use Types Packs/Day Years [...] week 03/02/2024 How often do you attend moravian or mu-ism serv ices? Never 03/02/2024 Active Member of [...] place to sleep or slept in a detention (including now)? No 03/02/2024 Estimated Date of Delivery Comme nts Yes 12/26/2025 Based on Ultraso und, FHR- 136 Sex and Gender Information Value Date Recorded Sex Assigned at Not on file Legal Sex Female 8:14 PM EDT Gender Identity Not on file Sexual Orientation Not on file documented as of this encounter Last Filed Vital Signs Vital Sign Reading Time Taken Comments Blood Pressure 108/68 06/07/2025 1:59 PM EDT Pulse - - Temperature - - Respiratory Rate - - Oxygen Saturation - - Inhaled Oxygen Concentration - - Weight 128 kg (281 lb 6.4 oz) 06/07/2025 1:59 PM EDT Height - - Body Mass Index 53.17 06/01/2024 1:21 PM EDT documented in this encounter Progress Notes * Shelley Dang LPN - 06/07/2025 1:50 PM EDT Reason for Appointment: Patient ID: Jes Malik is a 24 y.o. female who presents for Routine Visit Patient presents today for Return OB appointment. MEDICATIONS Current Outpatient Medications Medication Instructions omeprazole (PRILOSEC) 40 mg, Oral, 2 times daily before meals ondansetron (ZOFRAN) 4 mg, Oral, Every 6 hours PRN, Take 1 tablet by mouth every 6 hours as needed for nausea. ALLERGIES Allergies Allergen Reactions Penicillins Unknown PROBLEMS Active Ambulatory Problems Diagnosis Date Noted Major depressive disorder, recurrent episode, mild 03/02/2024 Gastroesophageal reflux disease without esophagitis 03/02/2024 Mild intermittent asthma without complication ([facility]) 03/02/2024 Allergic rhinitis due to pollen 03/02/2024 Morbid obesity due to excess calories ([facility]) 03/02/2024 Annual physical exam 03/02/2024 [...] nursing note reviewed. Exam conducted with a scallop binder present. Vitals: Estimated body mass index is 53.17 kg/m?? as calculated from the following: Height as of 06/01/24: 5' 1 . Weight as of this encounter: 281 lb 6.4 oz. BP: 108/68 Patient's last menstrual period was 03/08/2025. ASSESSMENT & PLAN ICD-10-CM 1. First trimester ([facility]) Z34.91 2. 11 weeks gestation of ([facility]) Z3A.11 3. Right ovarian cyst N83.201 ondansetron (Zofran) 4 MG tablet 4. Nausea R11.0 ondansetron (Zofran) 4 MG tablet 5. PCOS (polycystic ovarian syndrome) E28.2 ondansetron (Zofran) 4 MG tablet New OB: Patient presents today for 1st time obstetrics appointment with provider. Patient is currently 11w1d . Patients history has been reviewed in great detail including any potential risks. Patient stated she currently has complaints of nausea and heartburn. Expectations throughout regarding labs, ultrasounds, and appointments have been discussed with the patient in detail. It was reiterated that the patient is to drink 6-8 glasses of water a day, eat 6 small meals a day, do not consume raw or undercooked meat, and [facility]. Patient has been consulted regarding any further do's and don'ts of . Patient voiced understanding and all questions and concerns wereanswered. No orders of the defined types were placed in this encounter. Follow Up: Patient is to return in 4 weeks for routine OB appointment. Documented by Shelley Dang LPN on behalf of: Jefferson Howard DO documented in this encounter Plan of Treatment Upcoming Encounters Date Type Department Care Team (Late st Contact Info) Description 07/05/2025 2:00 PM EDT Routine [facility] [address] [place] [phone] Gia Agustin PA [address] [place] [address] 08/02/2025 1:40 PM EDT Procedure Visit [facility] [address] [place] [address] Anita, Jefferson, [address] [place] [address] documented as of this encounter Visit Diagnoses Diagnosis First trimester ([facility]) state, incidental 11 weeks gestation of ([facility]) Right ovarian cyst Other and unspecified ovarian cyst Nausea Nausea alone PCOS (polycystic ovarian syndrome) Polycystic ovaries documented in this encounter Care Teams Shipyard Painter Apprentice Relationship Specialty Start Date End Date Manuel Schwartz MD [address] [place] [phone] PCP - General Family Medicine 03/02/24 Manuel Schwartz MD [address] [place] [address] PCP - [facility] 07/20/24 documented as of this encounter
--- OUTSIDE RECORDS SUMMARY | 2025-06-07 15:36 | XMS_ITS | Encounter Summary ---
Author Organization [facility] Address [address] [place] [address] Care Team Providers Care Casework Supervisor Name Role Phone Manuel Schwartz MD Primary Care Provider [phone] Manuel Schwartz MD Unavailable Encounter Details Date Type Department Care Team (Late st Contact Info) Description 01/21/2025 Abstract [facility] [place] [facility] [address] [place] [address] Jefferson Howard DO [address] [place], [place] [phone] Social History Tobacco Use Types Packs/Day Years [...] week 03/02/2024 How often do you attend protestant or latter day serv ices? Never 03/02/2024 [...] place to sleep or slept in a senior care (including now)? No 03/02/2024 Comments Unknown Sex and Gender Information Value Date Recorded Sex Assigned at Not on file Legal Sex Female 8:14 PM EDT Gender Identity Not on file Sexual Orientation Not on file documented as of this encounter Plan of Treatment Upcoming Encounters Date Type Department Care Team (Late st Contact Info) Description 07/05/2025 2:00 PM EDT Routine [facility] [address] [place] [address] Gia Agustin PA [address] [place], [facility] 08/02/2025 1:40 PM EDT Procedure Visit [facility] [address] [place] [address] Jefferson Howard DO [address] [place], [facility] documented as of this encounter Visit Diagnoses Not on filedocumented in this encounter Care Teams Casework Supervisor Relationship Specialty Start Date End Date Manuel Schwartz MD [address] [place] [address] PCP - General Family Medicine 03/02/24 Manuel Schwartz MD [address] [place] [address] PCP - [facility] 07/20/24 documented as of this encounter
--- OUTSIDE RECORDS SUMMARY | 2025-06-07 15:37 | XMS_ITS | Encounter Summary ---
Author Organization [facility] Address [address] [place] [address] Care Team Providers Care Journal Entry Audit Clerk Name Role Phone Manuel Schwartz MD Primary Care Provider [phone] Manuel Schwartz MD Unavailable Encounter Details Date Type Department Care Team (Late st Contact Info) Description 09/07/2024 Orders Only [facility] [address] [place] [address] Mir Silva MD [address] [place] [phone] Social History Tobacco Use Types Packs/Day Years [...] week 03/02/2024 How often do you attend scientologist or orthodox serv ices? Never 03/02/2024 Active [...] 2:00 PM EDT Routine [facility] [address] [facility] [place] [address] Gia Agustin PA [address] [facility] [address] [place], [place] [phone] 08/02/2025 1:40 PM EDT Procedure Visit [facility] [address] [facility] [place] [phone] Jefferson Howard DO [address] [facility] [address] [place] [place], [place] [phone] documented as of this encounter Procedures Procedure Name Priority Date/Time Associated Diagnosis Comments SCANNED LABS Routine 09/07/2024 2:12 PM EST documented in this encounter Results * SCANNED LABS (09/07/2024 2:12 PM EST) us Mir Silva MD LAB CHG PERFORMABLES Final Resu lt documented in this encounter Visit Diagnoses Not on filedocumented in this encounter Care Teams Journal Entry Audit Clerk Relationship Specialty Start Date End Date Manuel Schwartz MD [address] [place] [address] PCP - General Family Medicine 03/02/24 Manuel Schwartz MD [address] [place] [address] PCP - [facility] 07/20/24 documented as of this encounter
--- OUTSIDE RECORDS SUMMARY | 2025-06-07 15:37 | XMS_ITS ---
Author Organization [employer] (ClinicalSummary Clone) Address Unknown Care Team Providers Care Street Light Lamp Cleaner Name Role Phone Unavailable Primary Care Physician Unavailab le Results * [UNITY] ANEUPLOIDY NIPT Performed by: HEROZ Component Value Range Date Fraction 4.0% 05/30/2025 04 :38 am UT Rh(D) NIPT RhD DETECTED 05/30/2025 04:3 8 am UT Sex Chromosome Aneuploidy NOT DETECTED 04:38 am UTC Monosomy X LOW RISK <1 in 10,000 2024 04:38 am UTC Trisomy 13 LOW RISK <1 in 10,000 2024 04:38 am UTC Trisomy 18 LOW RISK <1 in 10,000 2024 04:38 am UTC Trisomy 21 LOW RISK <1 in 10,000 2024 04:38 am UTC Sex MALE 05/30/2025 04:3 8 am UTC Gestation DE 05/30/20 25 04:38 am UT For detailed report, see PDF See PDF 05/30/2025 04:38 am UTC 05/30/2025 04:3 8 am UT Social History Observation Value Start Date End Date
--- OUTSIDE RECORDS SUMMARY | 2025-06-07 15:37 | XMS_ITS | Clinical Summary ---
Author Organization [employer] tem Address [id number] [address] [place] [address] Care Team Providers Care Shareholder Name Role Phone Manuel Schwartz MD Primary Care Provider [phone] Allergies Active Allergy Reactions Criticality Noted Date [...] EDT - 04/14/2025 3:08 AM EDT Emergency [facility] - Emergency [address] [place] [address] Zaki Dennis MD Early stage [...] A) Negative, Indeterminate 04/14/2025 2:51 AM EDT [facility] Urine 04/14/2025 2:55 AM EDT 04/14/2025 2:51 AM EDT us Zaki Dennis MD POINT OF CARE TEST ORDERABL ES Final Result [facility] [address] [place] [address], [place] * (ABNORMAL) POCT Nursing Urine Macroscopic UA (04/14/2025 2:53 AM EDT) POC Urine Specific [place] >=1.030(A) 1.010, 1.015, 1.020, 1.025 04/14/2025 2:46 AM EDT [facility] POC Urine Leukocyte Esterase Negative Negative 04/14/2025 2:46 AM EDT [facility] POC Urine Nitrite Negative Negative 04/14/2025 2:46 AM EDT [facility] POC Urine pH 6.5 5.0, 6.0, 6.5, 7.0, 7.5, 8.0, 8.5, 5.5 04/14/2025 2:46 AM EDT [facility] POC Urine Protein 100 mg/dL(A) Negative 04/14/2025 2:46 AM EDT [facility] POC Urine Glucose Negative Negative 04/14/2025 2:46 AM EDT [facility] POC Urine Ketones Negative Negative 04/14/2025 2:46 AM EDT [facility] POC Urine Urobilinogen 0.2 E.U./dL 04/14/2025 2:46 AM EDT [facility] POC Urine Bilirubin Negative Negative 04/14/2025 2:46 AM EDT [facility] POC Urine Blood/HGB Trace(A) Negative 04/14/2025 2:46 AM EDT [facility] Urine 04/14/2025 2:53 AM EDT 04/14/2025 2:46 AM EDT us Zaki Dennis MD POINT OF CARE TEST ORDERABL ES Final Result [facility] [address] [place] [address], * Extra Urine Fred (04/14/2025 2:42 AM EDT) Extra Tube Auto Resulted 04/14/2025 4:02 AM EDT [facility] Urine Urine specimen collection, clean catch / Unknown Collection / Unknown 04/14/2025 2:42 AM EDT 04/14/2025 3:39 AM EDT us Zaki Dennis MD URINE ORDERABLES Final Resu lt Performing Organization Address [facility] Co de Phone Number [address] [place] [address], [place] * Extra Urine Culture (04/14/2025 2:42 AM EDT) Extra Tube Auto Resulted 04/14/2025 4:02 AM EDT [facility] Urine Urine specimen collection, clean catch / Unknown Collection / Unknown 04/14/2025 2:42 AM EDT 04/14/2025 3:39 AM EDT us Zaki Dennis MD URINE ORDERABLES Final Resu lt Performing Organization Address [facility] Co de Phone Number [address] [place] [address], [place] * Extra Urine (04/14/2025 2:42 AM EDT) Extra Tube Auto Resulted 04/14/2025 4:02 AM EDT [facility] Urine Urine specimen collection, clean catch / Unknown Collection / Unknown 04/14/2025 2:42 AM EDT 04/14/2025 3:39 AM EDT us Zaki Dennis MD URINE ORDERABLES Final Resu lt Performing Organization Address City/[facility] Co de Phone Number [address] [place] [address], [place] from Last 3 Months Insurance [employer] Care Teams Shareholder Relationship Specialty Start Date End Date Manuel Schwartz MD PCP - General Family Medicine 01/21/19
--- OUTSIDE RECORDS SUMMARY | 2025-06-07 15:37 | XMS_ITS | Encounter Summary ---
Author Organization [facility] Address [address] [facility] [place] [address] Care Team Providers Care Sand Mill Operator Name Role Phone Manuel Schwartz MD Primary Care Provider [phone] Manuel Schwartz MD Unavailable Encounter Details Date Type Department Care Team (Late st Contact Info) Description 06/10/2024 Orders Only [facility] [address] [place] [address] Manuel Schwartz MD [address] [place] [address] Social History Tobacco Use Types Packs/Day Years [...] week 03/02/2024 How often do you attend sabianist or methodist serv ices? Never 03/02/2024 Active Member of [...] place to sleep or slept in a group home (including now)? No 03/02/2024 Comments Unknown [...] 2:00 PM EDT Routine [facility] [address] [facility] [place] [address] Gia Agustin PA [address] [facility] [address] [place], [place] [phone] 08/02/2025 1:40 PM EDT Procedure Visit [facility] [address] [facility] [phone] Jefferson Howard DO [address] [facility] [address] [place], [place] [phone] documented as of this encounter Procedures Procedure Name Priority Date/Time Associated Diagnosis Comments ELECTROCARDIOGRAM REPORT Routine 024 1:41 PM EDT documented in this encounter Results * Electrocardiogram Report (06/09/2024 1:41 PM EDT) Manuel Schwartz MD IN CLINIC/BEDSIDE ORDERABLES Fin al Result documented in this encounter Visit Diagnoses Not on filedocumented in this encounter Care Teams Sand Mill Operator Relationship Specialty Start Date End Date Manuel Schwartz MD [address] [place] [address] PCP - General Family Medicine 03/02/24 Manuel Schwartz MD [address] [place] [address] PCP - [facility] 07/20/24 documented as of this encounter
--- OUTSIDE RECORDS SUMMARY | 2025-06-07 15:37 | XMS_ITS | Encounter Summary ---
Author Organization [facility] Address [address] [place] [address] Care Team Providers Care E Commerce Director Name Role Phone Manuel Schwartz MD Primary Care Provider [phone] Manuel Schwartz MD Unavailable Encounter Details Date Type Department Care Team (Latest Contact Info) Description 05/31/2025 Travel Social History Tobacco Use Types Packs/Day Years [...] week 03/02/2024 How often do you attend religion or hoahaoism serv ices? Never 03/02/2024 Active Member of [...] in a long-term (including now)? No 03/02/2024 Estimated Date of [...] 2:00 PM EDT Routine [facility] [address] [facility] [place] [address] Gia Agustin PA [address] [place] [address] 08/02/2025 1:40 PM EDT Procedure Visit [facility] [address] [facility] [place] [address] Jefferson Howard DO [address] [facility] [place] [address] documented as of this encounter Visit Diagnoses Not on filedocumented in this encounter Care Teams E Commerce Director Relationship Specialty Start Date End Date Manuel Schwartz MD [address] [place] [address] PCP - General Family Medicine 03/02/24 Manuel Schwartz MD [address] [place] [address] [facility] 07/20/24 documented as of this encounter
--- OUTSIDE RECORDS SUMMARY | 2025-06-07 15:37 | XMS_ITS | Encounter Summary ---
Author Organization [facility] Address [address] [place] [address] Care Team Providers Care Alarm Technician Name Role Phone Manuel Schwartz MD Primary Care Provider [phone] Manuel Schwartz MD Unavailable Encounter Details Date Type Department Care Team (Late st Contact Info) Description 02/09/2025 Results Follow-Up [facility] Emma PURVISGYAnish [address] [place] [address] Ranjana Malave LPN [address] [place] [address] ALL THYROID STIM HORMONE, ALL THYROXINE (T4) FREE, TBH PREG QUANT HCG Social History Tobacco Use Types Packs/Day Years [...] week 03/02/2024 How often do you attend orthodoxy or lutheran serv ices? Never 03/02/2024 Active Member of [...] PM EDT Routine [facility] Emma WORLEY [address] [facility] [place] [address] Gia Agustin PA [address] [place], [place] [id number] 08/02/2025 1:40 PM EDT Procedure Visit CESAR WORLEY [address] [facility] [place] [address] Anita, Jefferson, DO [address] [place] [address] documented as of this encounter Visit Diagnoses Not on filedocumented in this encounter Care Teams Alarm Technician Relationship Specialty Start Date End Date Manuel Schwartz MD [address] [place] [address] PCP - General Family Medicine 03/02/24 Manuel Schwartz MD [address] [place] [address] PCP - [facility] 07/20/24 documented as of this encounter
--- OUTSIDE RECORDS SUMMARY | 2025-06-07 15:37 | XMS_ITS | Encounter Summary ---
Author Organization [facility] Address [address] [place] [address] Care Team Providers Care Finishing Machine Operator Automatic Name Role Phone Manuel Schwartz MD Primary Care Provider [phone] Manuel Schwartz MD Unavailable Encounter Details Date Type Department Care Team (Late st Contact Info) Description 01/17/2025 Abstract [facility] Emma OBGYN [address] [place] [address] Jefferson Howard DO [address] [place] [place], [place] [id number] Social History Tobacco Use Types Packs/Day Years [...] How often do you attend rastafarian or rastafari serv ices? Never 03/02/2024 Active Member of [...] 2:00 PM EDT Routine NOMMaribell WORLEY [address] [facility] [place] [address] Gia Agustin PA [address] [facility] [address] [place], [facility]11 08/02/2025 1:40 PM EDT Procedure Visit NOMMaribell WORLEY [address] [place] [address] Jefferson Howard DO [address] [facility] [address] [place], [facility]11 documented as of this encounter Visit Diagnoses Not on filedocumented in this encounter Care Teams Finishing Machine Operator Automatic Relationship Specialty Start Date End Date Manuel Schwartz MD [address] [place] [address] PCP - General Family Medicine 03/02/24 Manuel Schwartz MD [address] [place] [address] PCP - [facility] 07/20/24 documented as of this encounter
--- OUTSIDE RECORDS SUMMARY | 2025-06-07 15:37 | XMS_ITS | Encounter Summary ---
Author Organization [facility] Address [address] [place] [address] Care Team Providers Care Yarn Cleaner Name Role Phone Manuel Noel MD Primary Care Provider [phone] Manuel Noel MD Unavailable Encounter Details Date Type Department Care Team (Late st Contact Info) Description 06/03/2024 Clinisync Result Encounter NOMS External Department Unsolicited Manuel Noel MD [address] [place] [address] Social History Tobacco Use Types Packs/Day Years [...] week 03/02/2024 How often do you attend caodaism or lutheran serv ices? Never 03/02/2024 Active [...] place to sleep or slept in a alf (including now)? No 03/02/2024 Comments Unknown Sex and Gender Information Value Date Recorded Sex Assigned at Not on file Legal Sex Female 8:14 PM EDT Gender Identity Not on file Sexual Orientation Not on file documented as of this encounter Plan of Treatment Upcoming Encounters Date Type Department Care Team (Late st Contact Info) Description 07/05/2025 2:00 PM EDT Routine CESAR WORLEY [address] [facility] [place] [address] Gia Agustin PA [address] [facility] [address] [place], [place] [address] 08/02/2025 1:40 PM EDT Procedure Visit CESAR WORLEY [address] [facility] [place] [address] Jefferson Howard DO [address] [facility] [address] [place], [place] [id number] documented as of this encounter Procedures Procedure Name Priority Date/Time Associated Diagnosis Comments XR LUMBAR SPINE 2 OR 3V 06/03/2024 1:10 PM EDT documented in this encounter Results * XR LUMBAR SPINE 2 OR 3V (06/03/2024 1:10 PM EDT) Anatomical Region Laterality Modality Radiographic Arleen ging 06/03/2024 1:10 PM EDT Narrative 06/03/2024 1:13 [place] [address] XRay Report Signed Patient: MANISH ROMERO MR#: [id number] : 2000 Acct:[id number] Age/Sex: 23 / F ADM Date: 06/01/24 Loc: RAD Attending Dr: Manuel Noel M.D. Ordering Physician: Manuel Noel M.D. Date of Service: 06/01/24 Procedure(s): XR lumbar spine 2-3V Accession Number(s): [id number] cc: Manuel Noel M.D. [address] [place] [address] Patient Name: MANISH ROMERO MRN: [id number] date: 2000 Sex: F Assigned Patient Location: [facility] Current Patient Location: Accession/Order Number: [id number] Exam Date: 06/01/2024 14:19 Report Date: 06/03/2024 [...] Signed By: 06/03/24 1313 DD/ 1310 TD/TT: Waiter/Waitress Buffet: Procedure Note Radiology, Radiologist, - 06/03/2024 The [place] [id number] XRay Report Signed Patient: MANISH ROMERO LMR#: [id number] : 2000Acct:[id number] Age/Sex: 23 / FADM Date: 06/01/24 Loc: [facility] Attending Dr: Manuel Noel M.D. Ordering Physician: Manuel Noel M.D. Date of Service: 06/01/24 Procedure(s): XR lumbar spine 2-3V Accession Number(s): [id number] cc: Manuel Noel M.D. [facility] [address] [place] [id number] Patient Name: MANISH ROMERO MRN: [id number] date: 2000 Sex: F Assigned Patient Location: [facility] Current Patient Location: Accession/Order Number: [id number] Exam Date: 06/01/2024 14:19 Report Date: 06/03/2024 [...] M.D. Signed By:06/03/24 1313 DD/ 1310 TD/TT: Waiter/Waitress Buffet: Manuel Noel MD IMG XR PROCEDURES Final Result documented in this encounter Visit Diagnoses Not on filedocumented in this encounter Care Teams Yarn Cleaner Relationship Specialty Start Date End Date Manuel Noel MD [address] [place] [address] PCP - General Family Medicine 03/02/24 Manuel Noel MD [address] [place] [address] PCP - [facility] 07/20/24 documented as of this encounter
--- OUTSIDE RECORDS SUMMARY | 2025-06-07 15:37 | XMS_ITS | Clinical Summary ---
Author Organization [facility] Address [address] [place] [address] Care Team Providers Care Authorization Nurse Name Role Phone Manuel Schwartz MD Primary Care Provider [phone] Manuel Schwartz MD Unavailable Allergies Active Allergy Reactions Criticality Noted Date Comments Penicillins Unknown 2000 Medications omeprazole (PriLOSEC) [address] Morales ns:Gastroesophag eal reflux disease, unspecified whether esophagitis present Take 1 capsule (40 mg) by mouth in the morning and 1 capsule (40 mg) in the evening. Take before meals. 60 capsule 5 5 Active ondansetron (Zofran) 4 MG tabletIndication s:Right ovarian cyst,Nausea,PCOS (polycystic ovarian syndrome) Take 1 tablet (4 mg) by mouth every 6 (six) hours if needed for nausea or vomiting for up to 30 doses Take 1 tablet by mouth every 6 hours as needed for nausea. 30 tablet 3 5 Active ondansetron (Zofran) 4 MG tabletIndication s:Right ovarian cyst,Nausea,PCOS (polycystic ovarian syndrome) Take 1 tablet (4 mg) by mouth every 6 (six) hours if needed for nausea or vomiting for up to 30 doses Take 1 tablet by mouth every 6 hours as needed for nausea. 30 tablet 3 5 06/07/20 25 Discontinu ed(Reorder ) Active Problems Problem Noted Date Diagnosed Date [...] Encounters Date Type Department Care Team Description 06/07/2025 1:50 PM [place] [address] Jefferson Howard, DO First trimester ([facility]); 11 weeks gestation of ([facility]); Right ovarian cyst; Nausea; PCOS (polycystic ovarian syndrome) 06/07/2025 [place] [address] Jefferson Howard, DO 05/31/2025 Travel 05/30/2025 [place] [address] Jefferson Howard, DO 05/24/2025 Clinisync Result Encounter NOMS External Department Unsolicited Jefferson Howard, DO 05/05/2025 2:00 PM [place] [address] GA: 6w3d 05/05/2025 1:30 PM EDT [place] [address] Missed menses; Positive urine test ([facility]) 04/15/2025 Patient Outreach [facility] [address] [place] [address] Susan Boucher LSW 03/24/2025 Patient Outreach [facility] [address] [place] [address] Joe Gaines MA from Last 3 Months [...] week 03/02/2024 How often do you attend bahai or latter day serv ices? Never 03/02/2024 [...] in a intermediate (including now)? No 03/02/2024 Estimated Date of [...] Pressure 108/68 06/07/2025 1:59 PM EDT Pulse 108 06/01/2024 1:21 PM EDT Temperature 36.6 C (97.8 F) 06/01/2024 1:21 PM EDT Respiratory Rate 22 06/01/2024 1:21 PM EDT Oxygen Saturation 99% 06/01/2024 1:21 PM EDT Inhaled Oxygen Concentration - - Weight 128 kg (281 lb 6.4 oz) 06/07/2025 1:59 PM EDT Height 154.9 cm (5' 1 ) 06/01/2024 1:21 PM EDT Body Mass Index 53.17 06/01/2024 1:21 PM EDT Plan of Treatment Upcoming Encounters Date Type Department Care Team (Late st Contact Info) Description 07/05/2025 2:00 PM EDT Routine NOMMaribell WORLEY [address] [facility] [place] [address] Gia Agustin PA [address] [facility] [address] [place], [place] [address] 08/02/2025 1:40 PM EDT Procedure Visit CESAR WORLEY [address] [facility] [place] [address] Jefferson Howard DO [address] [facility] [place] [address] Health Maintenance Due Date Last Done Comments Influenza Vaccine (#1) 2025 Procedures Procedure Name Priority Date/Time Associated Diagnosis Comments HBSAG SCREEN Routine 05/24/2025 11:32 AM EDT RAPID PLASMA REAGIN, QUANT Routine 05/24/2025 11:32 AM EDT HCV ANTIBODY RFX TO QUANT PCR Routine 05/24/2025 11:32 AM EDT ALL RUBELLA IGG AB Routine 05/24/2025 11 :32 AM EDT HIV AB/P24 AG WITH REFLEX Routine 05/24/2025 11:32 AM EDT ALL TYPE AND SCREEN Routine 05/24/2025 1 1:32 AM EDT MLR HEMOGLOBIN A1C Routine 05/24/2025 11 :32 AM EDT ALL CBC WITH AUTO DIFF Routine 05/24/2025 11:32 AM EDT BOX TEST Routine 05/24/2025 11:32 AM EDT URINE CULTURE, ROUTINE Routine 05/24/2025 11:12 AM EDT TB DRUG SCREEN RAPID (URINE) Routine 05/24/2025 11:12 AM EDT POCT URINALYSIS DIPSTICK Routine 05/05/2025 2:17 PM EDT Missed menses POCT , URINE Routine 05/05/2025 2:16 PM EDT Missed menses US OB TRANSVAGINAL Routine 05/05/2025 1: 50 PM EDT Missed menses Positive urine test [facility] from Last 3 Months Results * BOX TEST (05/24/2025 11:32 AM EDT) BOX TEST SENT OUT YES [facility] BOX1 [facility] BOX2 05/24/25 [facility] 05/24/2025 11:3 2 AM EDT 05/24/2025 11:43 AM EDT Narrative [facility] - 05/24/2025 11:46 AM EDT us Jefferson Howard DO LAB BLOOD ORDERABLES Final Resul t [facility] * HBSAG SCREEN (05/24/2025 11:32 AM EDT) HBSAG SCREEN Negative Negative [facility] Comment: Performed at: - [address] [id number] Gear Setter: New Huggins PhD, Phone: [phone] 05/24/2025 11:3 2 AM EDT 05/24/2025 11:43 AM EDT Narrative [facility] - 05/25/2025 1:08 PM EDT Jefferson Anita DO LAB BLOOD ORDERABLES Final Resul t Performing Organization Address [facility]/ZIP Co de Phone Number [facility] * RAPID PLASMA REAGIN, QUANT (05/24/2025 11:32 AM EDT) RAPID PLASMA REAGIN, QUANT Non Reactive NonRea<1: 1 titer [facility] Comment: Please Note: This test does not meet current guidelines for screening and diagnosis of syphilis. This test is intended for following treatment response in patients being treated for syphilis infection. To screen for syphilis infection, a reflex cascade that includes both RPR and a treponema-specific assay should be utilized, such as Treponema pallidum (Syphilis) Screening [place] (839181) or Rapid Plasma Reagin (RPR) Test With Reflex to Quantitative RPR and Confirmatory Treponema pallidum Antibodies (464693). Performed at: [facility] [id number] Gear Setter: New Huggins PhD, Phone: [phone] 05/24/2025 11:3 2 AM EDT 05/24/2025 11:43 AM EDT Narrative [facility] - 05/25/2025 1:08 PM EDT Jefferson Anita DO LAB BLOOD ORDERABLES Final Resul t Performing Organization Address [facility] Co de Phone Number [facility] * HIV AB/P24 AG WITH REFLEX (05/24/2025 11:32 AM EDT) Pathologist [facility] HIV AB/P24 AG SCREEN Non Reactive Non Reactive [facility] Comment: HIV-1/HIV-2 antibodies and HIV-1 p24 antigen were NOT detected. There is no laboratory evidence of HIV infection. HIV Negative Performed at: [facility] [id number] Gear Setter: New Huggins PhD, Phone: [phone] 05/24/2025 11:3 2 AM EDT 05/24/2025 11:43 AM EDT Narrative [facility] - 05/25/2025 5:11 AM EDT Generic External Data Provider LAB BLOOD ORDERAB LES Final Result Performing Organization Address [facility] Co de Phone Number [facility] * HCV ANTIBODY RFX TO QUANT PCR (05/24/2025 11:32 AM EDT) Pathologist [facility] HCV AB Non Reactive Non Reactive [facility] INTERPRETATION: Comment . [facility] Comment: Not infected with HCV unless early or acute infection is suspected (which may be delayed in an immunocompromised individual), or other evidence exists to indicate HCV infection. 05/24/2025 11:3 2 AM EDT 05/24/2025 11:43 AM EDT [facility] - 05/25/2025 6:12 AM EDT Generic External Data Provider LAB BLOOD ORDERAB LES Final Result Performing Organization Address [facility] Phone Number [facility] * MLR HEMOGLOBIN A1C (05/24/2025 11:32 AM EDT) Pathologist [facility] GLYCOHEMOGLOBIN A1C 5.2 4.5 - 6.2 % [facility] Comment: ADA RECOMMENDED LIMIT 4.0 - 6.0 ADA THERAPEUTIC TARGET < 7.0 ACTION SUGGESTED > 7.0 ESTIMATED AVERAGE GLUCOSE 103 mg/dL TB 05/24/2025 11:3 2 AM EDT 05/24/2025 11:43 AM EDT [facility] - 05/24/2025 12:05 PM EDT Jefferson Howard DO CLINISYNC Final Result Performing Organization Address [facility] Co de Phone Number [facility] * ALL TYPE AND SCREEN (05/24/2025 11:32 AM EDT) Pathologist [facility] BLOOD TYPE O Positive [facility] ANTIBODY SCREEN NEGATIVE TB 05/24/2025 11:3 2 AM EDT 05/24/2025 11:43 AM EDT [facility] - 05/24/2025 12:45 PM EDT [facility] , us Jefferson Howard DO CLINISYNC Final Result [facility] * ALL RUBELLA IGG AB (05/24/2025 11:32 AM EDT) [facility] RUBELLA ANTIBODIES, IGG 2.91 Immune >0.99 index [facility] Comment: Non-immune <0.90 Equivocal 0.90 - 0.99 Immune >0.99 Performed at: - [address] [id number] Gear Setter: New Huggins PhD, Phone: [phone] 05/24/2025 11:3 2 AM EDT 05/24/2025 11:43 AM EDT Narrative [facility] - 05/25/2025 6:12 AM EDT Generic External Data Provider [facility] F inal Result Performing Organization Address City/[facility]/ZIP Co de Phone Number [facility] * (ABNORMAL) ALL CBC WITH AUTO DIFF (05/24/2025 11:32 AM EDT) [facility] TB WBC 7.6 4.0 - 11.0 10 3/uL [facility] TB RBC 4.03(L) 4.20 - 5.40 10 6/uL [facility] TBH HGB 11.9(L) 12.0 - 16.0 g/dL TB TB HCT 35.4(L) 36.0 - 48.0 % TB TB MCV 87.8 81.0 - 99.0 fL TBH TBH MCH 29.5 26.7 - 34.0 pg TBH TBH MCHC 33.6 29.9 - 35.2 g/dL [facility] TBH RDW 13.0 11.0 - 15.0 % [facility]H TBH PLT 213 150 - 450 10 3/uL TBH TBH MPV 10.8 9.5 - 13.5 fL [facility]H NEUTROPHILS PERCENT AUTO 58.1 43.0 - 75.0 % [facility] LYMPHOCYTES PERCENT AUTO 32.6 20.5 - 60.0 % [facility] MONOCYTES PERCENT AUTO 6.7 1.7 - 12.0 % [facility]H TBH EO % 2.0 0.9 - 7.0 % [facility] BASOPHILS PERCENT AUTO 0.3 0.2 - 2.0 % [facility] IMMATURE GRANULOCYTES PCT AUTO 0.3 0.0 - 0.5 % TB[facility] NEUTROPHILS ABSOLUTE AUTO 4.4 1.4 - 6.5 10 3/uL TBH LYMPHOCYTES ABSOLUTE AUTO 2.5 1.2 - 3.8 10 3/uL TBH MONOCYTES ABSOLUTE AUTO 0.5 0.3 - 0.8 10 3/uL TBH TBH EO # 0.2 0.0 - 0.7 10 3/uL TBH BASOPHILS ABSOLUTE AUTO 0.0 0.0 - 0.1 10 3/uL [facility] IMMATURE GRANULOCYTES ABS AUTO 0.02 0.00 - 0.03 10 3/uL [facility] 05/24/2025 11:3 2 AM EDT 05/24/2025 11:43 AM EDT Narrative [facility] - 05/24/2025 12:04 PM EDT us Jefferson Howard DO CLINISYNC Final Result [facility] * URINE CULTURE, ROUTINE (05/24/2025 11:12 AM EDT) URINE CULTURE, ROUTINE Urine Culture, Routine [facility] URINE CULTURE, ROUTINE Mixed urogenital thiago [facility] URINE CULTURE, ROUTINE Less than 10,000 colonies/mL [facility] URINE CULTURE, ROUTINE Performed at: - [facility] URINE CULTURE, ROUTINE [address] [place] [id number] [facility] URINE CULTURE, ROUTINE Gear Setter: New Huggins PhD, Phone: [phone] [facility] 05/24/2025 11:1 2 AM EDT 05/24/2025 11:43 AM EDT Narrative [facility] - 05/25/2025 8:08 PM EDT us Generic External Data Provider LAB BLOOD ORDERAB LES Final Result [facility] * TB DRUG SCREEN RAPID (URINE) (05/24/2025 11:12 AM EDT) CANNABINOID SCREEN URINE NEGATIVE NEGATIVE TBH PHENCYCLIDINE SCREEN URINE NEGATIVE NEGATIVE TBH COCAINE SCREEN URINE NEGATIVE NEGATIVE TBH METHAMPHETAMINES SCREEN URINE NEGATIVE NEGATIVE TBH OPIATE SCREEN URINE NEGATIVE NEGATIVE TBH AMPHETAMINE SCREEN URINE NEGATIVE NEGATIVE TBH BENZODIAZEPINES SCREEN URINE NEGATIVE NEGATIVE TBH TRICYCLIC ANTIDEPRESSANT URINE NEGATIVE NEGATIVE TBH METHADONE SCREEN URINE NEGATIVE NEGATIVE TBH BARBITURATES SCREEN URINE NEGATIVE NEGATIVE TBH OXYCODONE SCREEN URINE NEGATIVE NEGATIVE TBH BUPRENORPHINE SCREEN URINE NEGATIVE NEGATIVE [facility] Comment: DRUG CLASS TEST SYSTEM CUT-OFF CONCENTRATIONS ARE FOLLOWS: AMP (Amphetamine): 500 ng/mL BAR (Barbiturates): 200 ng/mL BZO (Benzodiazepines): 150 ng/mL BUP (Buprenorphine): 10 ng/mL JOSE MANUEL (Cocaine): 150 ng/mL mAMP (Methamphetamine): 500 ng/mL MTD (Methadone): 200 ng/mL OPI (Opiates): 100 ng/mL OXY (Oxycodone): 100 ng/mL PCP (Phencyclidine): 25 ng/mL THC (Cannabinoids): 50 ng/mL TCA (Trycyclic Antidepressants): 300 ng/mL 05/24/2025 11:1 2 AM EDT 05/24/2025 11:43 AM EDT Narrative [facility] - 05/24/2025 1:31 PM EDT us Jefferson Howard DO CLINISYNC Final Result [facility] * (ABNORMAL) POCT urinalysis dipstick manually resulted [...] SIGNED BY: Kenneth Arce MD us Jefferson Howard DO IMG OB US PROCEDURES Final Resul t from Last 3 Months Insurance [facility] [place] [address] [place]ICA[place] Care Teams Authorization Nurse Relationship Specialty Start Date End Date Manuel Schwartz MD [address] [place] [phone] PCP - General Family Medicine 03/02/24 Manuel Schwartz MD [address] [place] [phone] PCP - [facility] 07/20/24
--- OUTSIDE RECORDS SUMMARY | 2025-06-07 15:37 | XMS_ITS | Encounter Summary ---
Author Organization [facility] Address [address] [place] [address] Care Team Providers Care Material Stress Tester Name Role Phone Manuel Schwartz MD Primary Care Provider [phone] Manuel Schwartz MD Unavailable Encounter Details Date Type Department Care Team (Late st Contact Info) Description 05/24/2025 Clinisync Result Encounter [facility] External Department Unsolicited Jefferson Howard, [address] [place], [place] [id number] Social History Tobacco Use Types Packs/Day Years [...] How often do you attend pentecostalism or voodoo serv ices? Never 03/02/2024 Active Member of [...] place to sleep or slept in a fdc (including now)? No 03/02/2024 Estimated Date of [...] 2:00 PM EDT Routine NOM[facility] WORLEY [address] [place] [address] Gia Agustin PA [address] [place], [place] [id number] 08/02/2025 1:40 PM EDT Procedure Visit CESAR WORLEY [address] [place] [phone] Jefferson Howard DO [address] [place], [place] [id number] documented as of this encounter Procedures Procedure Name Priority Date/Time Associated Diagnosis Comments BOX TEST Routine 05/24/2025 11:32 AM EDT HBSAG SCREEN Routine 05/24/2025 11:32 AM EDT RAPID PLASMA REAGIN, QUANT Routine 05/24/2025 11:32 AM EDT HIV AB/P24 AG WITH REFLEX Routine 05/24/2025 11:32 AM EDT HCV ANTIBODY RFX TO QUANT PCR Routine 05/24/2025 11:32 AM EDT MLR HEMOGLOBIN A1C Routine 05/24/2025 11 :32 AM EDT ALL TYPE AND SCREEN Routine 05/24/2025 1 1:32 AM EDT ALL RUBELLA IGG AB Routine 05/24/2025 11 :32 AM EDT ALL CBC WITH AUTO DIFF Routine 05/24/2025 11:32 AM EDT URINE CULTURE, ROUTINE Routine 05/24/2025 11:12 AM EDT [facility] DRUG SCREEN RAPID (URINE) Routine 05/24/2025 11:12 AM EDT documented in this encounter Results * HBSAG SCREEN (05/24/2025 11:32 AM EDT) Pathologist [facility] HBSAG SCREEN Negative Negative [facility] Comment: Performed at: [address] [id number] Charting Clerk: New Huggins PhD, Phone: [phone] 05/24/2025 11:3 2 AM EDT 05/24/2025 11:43 AM EDT Narrative [facility] - 05/25/2025 1:08 PM EDT us Jefferson Anita DO LAB BLOOD ORDERABLES Final Resul t [facility] * RAPID PLASMA REAGIN, QUANT (05/24/2025 11:32 AM EDT) RAPID PLASMA REAGIN, QUANT Non Reactive NonRea<1: 1 titer [facility] Comment: Please Note: This test does not meet current guidelines for screening and diagnosis of syphilis. This test is intended for following treatment response in patients being treated for syphilis infection. To screen for syphilis infection, a reflex cascade that includes both RPR and a treponema-specific assay should be utilized, such as Treponema pallidum (Syphilis) Screening Andrew (920965) or Rapid Plasma Reagin (RPR) Test With Reflex to Quantitative RPR and Confirmatory Treponema pallidum Antibodies ([id number]). Performed at: [address] [id number] Charting Clerk: New Huggins PhD, Phone: [phone] 05/24/2025 11:3 2 AM EDT 05/24/2025 11:43 AM EDT Narrative [facility] - 05/25/2025 1:08 PM EDT Jefferson Howard DO LAB BLOOD ORDERABLES Final Resul t Performing Organization Address [facility] Co de Phone Number [facility] * HCV ANTIBODY RFX TO QUANT PCR (05/24/2025 11:32 AM EDT) HCV AB Non Reactive Non Reactive [facility] INTERPRETATION: Comment . [facility] Comment: Not infected with HCV unless early or acute infection is suspected (which may be delayed in an immunocompromised individual), or other evidence exists to indicate HCV infection. 05/24/2025 11:3 2 AM EDT 05/24/2025 11:43 AM EDT Narrative [facility] - 05/25/2025 6:12 AM EDT Generic External Data Provider LAB BLOOD ORDERAB LES Final Result Performing Organization Address City/[facility] Co de Phone Number [facility] * ALL RUBELLA IGG AB (05/24/2025 11:32 AM EDT) RUBELLA ANTIBODIES, IGG 2.91 Immune >0.99 index TB Comment: Non-immune <0.90 Equivocal 0.90 - 0.99 Immune >0.99 Performed at: [facility] [address] [id number] Charting Clerk: New Huggins PhD, Phone: [phone] 05/24/2025 11:3 2 AM EDT 05/24/2025 11:43 AM EDT Narrative [facility] - 05/25/2025 6:12 AM EDT us Generic External Data Provider [facility] F inal Result [facility] * HIV AB/P24 AG WITH REFLEX (05/24/2025 11:32 AM EDT) Pathologist [facility] HIV AB/P24 AG SCREEN Non Reactive Non Reactive [facility] Comment: HIV-1/HIV-2 antibodies and HIV-1 p24 antigen were NOT detected. There is no laboratory evidence of HIV infection. HIV Negative Performed at: [address] [id number] Charting Clerk: New Huggins PhD, Phone: [phone] 05/24/2025 11:3 2 AM EDT 05/24/2025 11:43 AM EDT Narrative [facility] - 05/25/2025 5:11 AM EDT us Generic External Data Provider LAB BLOOD ORDERAB LES Final Result Performing Organization Address [facility]/ZIP Co de Phone Number [facility] * ALL TYPE AND SCREEN (05/24/2025 11:32 AM EDT) Pathologist [facility] BLOOD TYPE O Positive [facility] ANTIBODY SCREEN NEGATIVE [facility] 05/24/2025 11:3 2 AM EDT 05/24/2025 11:43 AM EDT Narrative [facility] - 05/24/2025 12:45 PM EDT [facility] , us Jefferson Anita DO [facility] Final Result Performing Organization Address City/[facility]/ZIP Co de Phone Number [facility] TB * MLR HEMOGLOBIN A1C (05/24/2025 11:32 AM EDT) [facility] GLYCOHEMOGLOBIN A1C 5.2 4.5 - 6.2 % TB Comment: ADA RECOMMENDED LIMIT 4.0 - 6.0 ADA THERAPEUTIC TARGET < 7.0 ACTION SUGGESTED > 7.0 ESTIMATED AVERAGE GLUCOSE 103 mg/dL TB 05/24/2025 11:3 2 AM EDT 05/24/2025 11:43 AM EDT Narrative [facility] - 05/24/2025 12:05 PM EDT us Jefferson Anita DO [facility] Final Result [facility] * (ABNORMAL) ALL CBC WITH AUTO DIFF (05/24/2025 11:32 AM EDT) [facility] TB WBC 7.6 4.0 - 11.0 10 3/uL [facility] TB RBC 4.03(L) 4.20 - 5.40 10 6/uL [facility]H HGB 11.9(L) 12.0 - 16.0 g/dL TB TB HCT 35.4(L) 36.0 - 48.0 % [facility] TB MCV 87.8 81.0 - 99.0 fL [facility] TBH MCH 29.5 26.7 - 34.0 pg [facility]H TBH MCHC 33.6 29.9 - 35.2 g/dL TB TB RDW 13.0 11.0 - 15.0 % [facility] [...] - 05/24/2025 12:04 PM EDT us Jefferson Anita DO [facility] Final Result [facility] * BOX TEST (05/24/2025 11:32 AM EDT) BOX TEST SENT OUT YES [facility] BOX1 [facility] BOX2 05/24/25 [facility] 05/24/2025 11:3 2 AM EDT 05/24/2025 11:43 AM EDT Narrative [facility] - 05/24/2025 11:46 AM EDT us Jefferson Anita DO LAB BLOOD ORDERABLES Final Resul t [facility] * URINE CULTURE, ROUTINE (05/24/2025 11:12 AM EDT) URINE CULTURE, ROUTINE Urine Culture, Routine [facility] URINE CULTURE, ROUTINE Mixed urogenital thiago [facility] URINE CULTURE, ROUTINE Less than 10,000 colonies/mL [facility] URINE CULTURE, ROUTINE [facility]formed at[facility], ROUTINE [address], [place] [id number] [facility] URINE CULTURE, ROUTINE Charting Clerk: New Huggins PhD, Phone: [phone] [facility] 05/24/2025 11:1 2 AM EDT 05/24/2025 11:43 AM EDT Narrative [facility] - 05/25/2025 8:08 PM EDT us Generic External Data Provider LAB BLOOD ORDERAB LES Final Result [facility] * [facility] DRUG SCREEN RAPID (URINE) (05/24/2025 11:12 AM EDT) Pathologist [facility] CANNABINOID SCREEN URINE NEGATIVE NEGATIVE [facility] PHENCYCLIDINE [...] - 05/24/2025 1:31 PM EDT us Jefferson Anita DO [facility] Final Result [facility] documented in this encounter Visit Diagnoses Not on filedocumented in this encounter Care Teams Material Stress Tester Relationship Specialty Start Date End Date Manuel Schwartz MD [address] [place] [address] PCP - General Family Medicine 03/02/24 Manuel Schwartz MD [address] [place] [address] [facility] 07/20/24 documented as of this encounter
--- OUTSIDE RECORDS SUMMARY | 2025-06-07 15:37 | XMS_ITS | Encounter Summary ---
Author Organization [facility] Address [address] [place] [address] Care Team Providers Care Paralegal Assistant Name Role Phone Manuel Schwartz MD Primary Care Provider [phone] Manuel Schwartz MD Unavailable Encounter Details Date Type Department Care Team (Late st Contact Info) Description 02/09/2025 Orders Only [facility] [address] [place] [place] [address] Manuel Schwartz MD [address] [place] [address] Social History Tobacco Use Types Packs/Day Years [...] week 03/02/2024 How often do you attend jainism or confucianist serv ices? Never 03/02/2024 Active [...] place to sleep or slept in a assisted (including now)? No 03/02/2024 Comments Unknown Sex and Gender Information Value Date Recorded Sex Assigned at Not on file Legal Sex Female 8:14 PM EDT Gender Identity Not on file Sexual Orientation Not on file documented as of this encounter Plan of Treatment Upcoming Encounters Date Type Department Care Team (Late st Contact Info) Description 07/05/2025 2:00 PM EDT Routine NOM[facility] WORLEY [address] [place] [address] Gia Agustin PA [address] [place], [place] [phone] 08/02/2025 1:40 PM EDT Procedure Visit CESAR WORLEY [address] [place] [phone] Jefferson Howard DO [address] [place] [place], [place] [phone] documented as of this encounter Procedures Procedure Name Priority Date/Time Associated Diagnosis Comments SCANNED LABS Routine 02/09/2025 2:43 PM EDT documented in this encounter Results * SCANNED LABS (02/09/2025 2:43 PM EDT) Manuel Schwartz MD LAB CHG PERFORMABLES Final Resul t documented in this encounter Visit Diagnoses Not on filedocumented in this encounter Care Teams Paralegal Assistant Relationship Specialty Start Date End Date Manuel Schwartz MD [address] [place] [phone] PCP - General Family Medicine 03/02/24 Manuel Schwartz MD [address] [place] [phone] PCP - [facility] 07/20/24 documented as of this encounter
--- OUTSIDE RECORDS SUMMARY | 2025-06-07 15:37 | XMS_ITS | Encounter Summary ---
Author Organization [facility] Address [address] [place] [address] Care Team Providers Care Naval Engineer Name Role Phone Manuel Schwartz MD Primary Care Provider [phone] Manuel Schwartz MD Unavailable Encounter Details Date Type Department Care Team (Late st Contact Info) Description 05/30/2025 Abstract [facility] [address] [place] [address] Jefferson Howard DO [address] [place] [place], [place] [phone] Social History Tobacco Use Types Packs/Day Years [...] week 03/02/2024 How often do you attend uatsdin or judaism serv ices? Never 03/02/2024 Active Member of [...] in a correction (including now)? No 03/02/2024 Estimated Date of [...] EDT Routine NOMMaribell WORLEY [address] [place] [address] Gia Agustin PA [address] [place] [address] 08/02/2025 1:40 PM EDT Procedure Visit CESAR WORLEY [address] [place] [address] Jefferson Howard DO [address] [place] [address] documented as of this encounter Visit Diagnoses Not on filedocumented in this encounter Care Teams Naval Engineer Relationship Specialty Start Date End Date Manuel Schwartz MD [address] [place] [phone] PCP - General Family Medicine 03/02/24 Manuel Schwartz MD [address] [place] [address] PCP - [facility] 07/20/24 documented as of this encounter
--- OUTSIDE RECORDS SUMMARY | 2025-06-07 15:37 | XMS_ITS | Encounter Summary ---
Author Organization [facility] Address [address] [place] [address] Care Team Providers Care Equipment Coordinator Name Role Phone Manuel Schwartz MD Primary Care Provider [phone] Manuel Schwatrz MD Unavailable Encounter Details Date Type Department Care Team (Late st Contact Info) Description 06/07/2025 Bamboo flowsheet [facility] [address] [place] [address] Jefferson Howard DO [address] [place], [facility] Social History Tobacco Use Types Packs/Day Years [...] week 03/02/2024 How often do you attend hinduism or islam serv ices? Never 03/02/2024 Active Member of [...] place to sleep or slept in a jail (including now)? No 03/02/2024 Estimated Date of [...] 2:00 PM EDT Routine NOMMaribell WORLEY [address] [place] [address] Gia Agustin PA [address] [place] [address] 08/02/2025 1:40 PM EDT Procedure Visit NOMMaribell WORLEY [address] [place] [address] Jefferson Howard DO [address] [place] [address] documented as of this encounter Visit Diagnoses Not on filedocumented in this encounter Care Teams Equipment Coordinator Relationship Specialty Start Date End Date Manuel Schwartz MD [address] [place] [address] PCP - General Family Medicine 03/02/24 Manuel Schwartz MD [address] [place] [phone] PCP - [facility] 07/20/24 documented as of this encounter
--- OUTSIDE RECORDS SUMMARY | 2025-06-07 16:28 | XMS_ITS | CCD ---
Author Organization [facility] Care Team Providers Care [place] Supervisor Name Role Phone DEMETRIOC, DR WILLS Attending [...] Unavailable ANITA ., DR ANDREA Attending Unavailable SALEM, DR AISHWARYA Luis Consulting Unavailable NADERER, DR MANUEL Souza Primary Care Unavailable ANITA ., DR ANDREA Admitting Unavailable ANITA ., DR ANDREA Consulting Unavailable NADERER, DR MANUEL Souza Primary Care Unavailable KARASIK ., DR GAN Attending Unavailabl e KARASIK ., DR GAN Admitting Unavailabl e KARASIK ., DR GAN Consulting Unavailabl e NADERER, DR MANUEL Souza Attending Unavailable NADERETatiana, DR MANUEL Souza Admitting Unavailable NADERER, DR MANUEL Souza Primary Care Unavailable NADERER, DR MANUEL Souza Consulting Unavailable Bert MATSON, Manuel Primary Care Provider [phone] Mir Silva MD Attending Provider [phone] Manuel Noel MD Primary Care Provider [phone] Manuel Noel MD Unavailable Manuel Noel MD Primary Care Provider [phone] Krishna Saxena MD Attending Provider Jefferson Howard DO Attending Provider Manuel Noel Primary Care Unavailable Mir Silva Admitting Unavailable Mir Silva Attending Unavailable Manuel Noel Primary Care Unavailable Krishna Saxena Admitting Unavailable Krishna Saxena Attending Unavailable Jefferson Howard Admitting Unavailable Jefferson Howard Attending Unavailable MANUEL NOEL Primary Care Unavailable MYLENE SAMPSON Attending Unavailable MAO PETERSEN Attending Unavailable MANUEL NOEL Primary Care Unavailable JEFFERSON HOWARD Attending Unavailable JEFFERSON HOWARD Attending Unavailable GIA MAYO Attending Unavailable JEFFERSON HOWARD Attending Unavailable MANUEL NOEL Attending Unavailable JEFFERSON HOWARD Attending Unavailable Allergies Allergy Classification Reported Allergen(s) Allergy Type Date of Onset Reaction(s) Facility (2 sources) Penicillins; Translations: [PENICILLINS] Drug allergy (disorder) 9 [facility] Rep[facility] (20 sources) Penicillins Drug Intolerance 1 Unknown [facility] (1 source) Penicillins Drug allergy (disorder) 4 [facility] Repository Medications Current Medications Medication Drug Class(es) [...] intrinsic asthma without status asthmaticus without complication ([facility]) Inhale 2 puffs every 4 (four) hours if needed for shortness of breath 18 g 3 02/27/2024 12/22/2024 Discontinued Start: 12-12-2021 End: 08-24-2024 Albuterol Sulfate (Ventolin Hfa) 90 mcg/actuation HFA aerosol inhaler Discontinued 2 INH INHALATION Q4H as needed for sob December 12, 2021 1:00am August 24, 2024 10:32am meclizine hydrochloride 25 mg oral tablet (3 sources) Antiemetic Start: 08-24-2024 Meclizine 25 mg tablet Active 25 MG PO As Directed as needed for dizziness August 24, 2024 1:00am omeprazole 40 mg delayed release oral capsule (20 sources) Proton Pump Inhibitor Start: 03-02-2024 End: 05-05-2025 take 1 capsule by mouth in the morning omeprazole (PriLOSEC) [address] capsule Indications: Gastroesophageal reflux disease, unspecified whether esophagitis present Take 1 capsule (40 mg) by mouth in the morning and 1 capsule (40 mg) in the evening. Take before meals. 60 capsule 5 05/05/2025 Active Start: 12-14-2021 End: 09-07-2024 take 1 capsule by mouth once daily Omeprazole 20 mg Capsule,Delayed Release(Dr/Ec) Discontinued 20 MG PO Daily 30 December 14, 2021 1:00am September 07, 2024 2:33pm Start: 11-20-2017 End: 12-12-2021 Omeprazole 20 mg Capsule,Del ayed Release(Dr/Ec) Discontinued 20 MG PO as needed for Acne November 20, 2017 1:00am December 12, 2021 3:38pm promethazine hydrochloride 25 mg oral tablet (19 sources) Phenothiazine Start: 08-27-2024 take 1 tablet by mouth every six hours as needed for nausea and vomiting Promethazine 25 mg tablet Active 25 MG PO Every 6 hours as needed for nausea and vomiting August 27, 2024 1:00am End: 05-05-2025 promethazine (Phenergan) 12. 5 MG tablet Take by mouth 05/05/2025 Discontinued sucralfate 1000 mg oral tablet (2 sources) [...] Ergocalciferol (Vitamin D2) 50,000 unit Capsule Discontinued 90826 UNIT PO Sa@0900 2 January 26, 2019 12:00am December 12, 2021 3:38pm ethinyl estradiol 0.035 mg / norgestimate 0.25 mg oral tablet (9 sources) Progestin, Estrogen Start: 12-22-2024 End: 04-27-2025 take 1 tablet by mouth once daily, then take 1 tablet by mouth once daily norgestimate-ethinyl estradiol (Sprintec 28) 0.25-35 MG-MCG tablet Indications: control counseling Take 1 tablet by mouth Daily for 28 days Take 1 tablet by mouth daily 28 tablet 11 12/22/2024 04/27/2025 Discontinued (Therapy completed) ondansetron 4 mg oral tablet (20 sources) Serotonin-3 Receptor Antagonist Start: 11-11-2024 End: 06-07-2025 take 1 tablet by mouth every six [...] as needed for nausea. 30 tablet 3 05/05/2025 06/07/2025 Discontinued (Reorder) sertraline 50 mg oral tablet (3 sources) [...] examination or test findings] 02-02-2025 Episodic Asthma (20 sources) Mild intermittent asthma; Translations: [Mild intermittent [...] RSP MANF] Onset: 2 Episodic Menstrual disorders (20 sources) Irregular menstruation, unspecified; Translations: [Amenorrhea] Onset: 2 Chronic Mood disorders (20 sources) Recurrent major depression; Translations: [Major depressive disorder, recurrent, unspecified] Onset: 4 01-21-2019 Chronic Nausea and vomiting (9 sources) Nausea; Translations: [Nausea] 08-24-2024 Episodic Other complications of ; puerperium affecting [...] EAR] Onset: 2 Episodic Other endocrine disorders (5 sources) Polycystic ovary syndrome; Translations: [Polycystic ovarian syndrome] 11-11-2024 Chronic Other gastrointestinal disorders (3 sources) Constipation; Translations: [Constipation, unspecified] 01-21-2019 Episodic Other gastrointestinal disorders (1 source) Constipation, unspecified; Translations: [Constipation, unspecified] 08-24-2024 Episodic Other nutritional; endocrine; and metabolic disorders (20 sources) Morbid obesity; Translations: [Morbid (severe) obesity due to excess calories] Onset: 4 03-02-2024 Chronic Other and delivery including normal (20 sources) Single live ; Translations: [Encounter for supervision of other normal , third trimester] Onset: 2 Episodic Other screening for suspected conditions (not mental disorders or infectious disease) (20 sources) Encounter for screening for malignant neoplasm of cervix; Translations: [Encounter for other specified screening] Onset: 2 Episodic Other upper respiratory disease (20 sources) Allergic rhinitis due to pollen; Translations: [Allergic rhinitis due to pollen] Onset: 4 03-02-2024 Chronic Otitis media and related conditions (1 source) Unspecified nonsuppurative otitis media, bilateral; Translations: [UNS NONSUPPURATIVE OTITIS MEDIA OSCAR] Onset: 2 Episodic Ovarian cyst (5 sources) Cyst of right ovary; Translations: [Unspecified ovarian cyst, right side] 11-11-2024 Episodic Residual codes; unclassified (1 source) 38 weeks gestation of ; Translations: [38 WEEKS GESTATION OF ] Onset: 3 Episodic Residual codes; unclassified (1 source) 29 weeks gestation of ; Translations: [29 WEEKS GESTATION OF ] Onset: 2 Episodic Residual codes; unclassified (2 sources) Gestation period, 11 weeks; Translations: [11 weeks gestation of ] 06-07-2025 Episodic Thyroid disorders (1 source) Disorder of thyroid gland; Translations: [Disorder of thyroid, unspecified] 05-05-2025 Episodic Unclassified (2 sources) OT SPCF DIS/COND COMPL ; Translations: [OTH SPCF DIS/COND COMPL ] Onset: 2 Unclassified (1 source) STOMACH PAIN, DIARRHEA Onset: 4 Past or Other Problems Problem Classification Problem Date Documented Date Episodic/Chronic Abdominal pain (20 sources) Indigestion; Translations: [Epigastric pain] Onset: 03-02-2024 Resolved: 06-01-2024 08-24-2024 Episodic Immunizations and screening for infectious disease (2 sources) Encounter for screening for infections with a predominantly sexual mode of transmission; Translations: [Contact with and (suspected) exposure to infections with a predominantly sexual mode of transmission] Onset: 06-10-2022 Episodic Noninfectious gastroenteritis (1 source) Noninfective gastroenteritis and colitis, unspecified; Translations: [Noninfective gastroenteritis and colitis, unspecified] Onset: 08-28-2024 Episodic Other complications of (4 sources) Abnormal [...] Spondylosis; intervertebral disc disorders; other back problems (20 sources) Cervicalgia; Translations: [Torticollis] Onset: 07-13-2022 Episodic Results Test Name Value Interpretation Reference Range Facil ity BOX TESTon 05-24-2025 BOX TEST SENT OUT YES [facility] BOX1 UNITY [facility] BOX2 05/24/25 [facility] HCG ( test) Ql (U)o n 05-05-2025 Interpretation and review of laboratory results Abnormal [facility] Preg Test, Ur Positive Negative [facility] US OB TRANSVAGINALon 025 US OB TRANSVAGINAL FINDINGS: A single intrauterine gestational sac is [...] 2.5 x 2.8 cm corpus luteum cyst. IMPRESSION: Findings consistent with a live intrauterine gestation, current sonographic age of 6 weeks and 3 days resulting in an estimated date of delivery of December 26, 2025. TRANSCRIBED BY: ELECTRONICALLY SIGNED BY: Kenneth Arce MD Normal Not Available Comment on above: Order Comment: US OB TRANSVAGINAL No LMP recorded. Urinalysis macro (dipstick) panel (U)on 05-05-2025 Bilirubin, UA Negative Negative - 4(7 0) +++ mg/dL [facility] Blood, UA Negative Negative - 50 Lincoln/mcL [facility] Clarity, UA Clear [facility] Color, UA Yellow [facility] Glucose, UA Negative Negative - 2000(110) ++++ mg/dL [facility] Interpretation and review of laboratory results Abnormal [facility] Ketones, UA Negative Negative - 160(16) ++++ mg/dL [facility] Leukocytes, UA Negative Negative - 50 0+++ Skyler/mcL [facility] Nitrite, UA Negative Negative - Positive [facility] pH, UA 7 5 - 9 [facility] Protein, UA Trace Negative - 2000(20) ++++ mg/dL [facility] Spec Grav, UA 1.025 1 - 1.03 [facility] Urobilinogen, UA 1.0 0.2 - 12 mg/dL [facility] POCT NURSING URINE MACROSCOP IC UAon 04-14-2025 BILIRUBIN MOLLY Negative Normal Negative [facility] Comment on above: Performed By: #### N UM #### [facility] ([address] [place] [address] VIR BLOOD/HGB MOLLY Trace Abnormal Negative [facility] Comment on above: Performed By: #### N UM #### [facility] ([address] [place] [address] VIR GLUCOSE MOLLY Negative Normal Negative [facility] Comment on above: Performed By: #### N UM #### [facility] ([address] [place] [address] VIR KETONES MOLLY Negative Normal Negative [facility] Comment on above: Performed By: #### N UM #### [facility] ([address] [place] [address] VIR LEUKOCYTE ESTERASE MOLLY Negative Normal Negative [facility] Comment on above: Performed By: #### N UM #### [facility] ([address] [place] [address] VIR NITRITE MOLLY Negative Normal Negative [facility] Comment on above: Performed By: #### N UM #### [facility] ([address] [place] [address] VIR PH MOLLY 6.5 Normal 5.0, 6.0, 6.5, 7.0, 7.5, 8.0, 8.5, 5.5 [facility] Comment on above: Performed By: #### N UM #### [facility] ([address] [address] VIR PROTEIN MOLLY 100 mg/dL Abnormal Negative [facility] Comment on above: Performed By: #### N UM #### [facility] ([address] [address] VIR SPECIFIC GRAVITY MOLLY >=1.030 Abnormal 1.010, 1.015, 1.020, 1.025 [facility] Comment on above: Performed By: #### N UM #### [facility] ([address] [address] VIR UROBILINOGEN MOLLY 0.2 E.U./dL [facility] Comment on above: Performed By: #### N UM #### [facility] ([address] [address] VIR POCT , URINE (NUCG) on 04-14-2025 Beta HCG ( test) Ql (U) Positive Abnormal Negative, Indeterminate [facility] Comment on above: Performed By: #### N UCG #### [facility] ([address] [address] VIR ALL THYROID STIM HORMONEon 0 02-09-2025 Interpretation and review of laboratory results Abnormal [facility] TSH Qn 5.935 m[IU]/L High [facility] HCG ( test) Ql (U)o n 01-17-2025 Interpretation and review of laboratory results Normal [facility] Preg Test, Ur Negative Negative [facility] [place] 01-17-2025 L Specimen: [id number] Received: 01/18/25 Status: GHAZAL Wilsondeny Num: [id number] Spec Type: Surgical Subm Dr: Jefferson Howard Tissues: A Endocervix - Biopsy (ENDOCERVIX) Endocervix - Curettings Procedures: HE/2, Gross/Micro L4 Age/ Patient Sex Location Account Attending Physician Jes Malik / LABELL [id number] Jefferson Howard SPEC NUM: [id number] RECD: 01/18/25 STATUS: GHAZAL WILSONDeny NUM: [id number] JUDIT: 01/17/25 SUBM : Jefferson Howard ENTERED: 01/18/25-[address]: Emma,Lab SPEC TYPE: Surgical DEPT: LUCAS MAR ENTERED BY: [id number] RECV BY: [id number] ORDERED: HE/2, Gross/Micro L4 ORDERED: HE/2, Gross/Micro [...] submitted in a single cassette. (1, ns, A) Microscopic Description Microscopic examination is performed Specimen: [id number] Received: 01/18/25 Status: GHAZAL Zurita Num: [id number] Spec Type: Surgical Subm Dr: Jefferson Howard Tissues: A Endocervix - Biopsy (ENDOCERVIX) Endocervix - Curettings Procedures: LACIE, Gross/Micro L4 Patient: Jes Malik [id number] (Continued) Specimen: [id number] Received: 01/18/25 (Continued) Signed (signature on file) Lizabeth Diggs MD 01/19/25 1541 Specimen: [id number] Received: 01/18/25 Status: ARMIDAKiley Zurita Num: [id number] Spec Type: Surgical Subm Dr: Jefferson Howard Tissues: A Endocervix - Biopsy (ENDOCERVIX) Endocervix - Curettings Procedures: TESSIE/Day Olivarez/Elvin L4 Patient: Jes Malik [id number] (Continued) Specimen: Received: 01/18/25 (Continued) CPT Codes 03452 Specimen: [id number] Received: 01/18/25 Status: GHAZAL Zur[place] Num: [id number] Spec Type: Surgical Subm Dr: Jefferson Howard Tissues: A Endocervix - Biopsy (ENDOCERVIX) Endocervix - Curettings Procedures: HE/Juanis, Gross/Elvin L4 Patient: Jes Malik [id number] (Continued) Signed (signature on file) Brian-Shaheen Diggs MD 01/19/25 1541 Normal [facility] Urinalysis macro (dipstick) panel (U)on 01-17-2025 Bilirubin, UA Negative Negative - 4(7 0) +++ mg/dL [facility] Blood, UA Negative Negative - 50 [place] Color, UA Yellow [facility] Glucose, UA Negative Negative - 1999(110) ++++ mg/dL [facility] Interpretation and review of laboratory results Abnormal [facility] Ketones, UA Positive Negative - 160(16) ++++ mg/dL [facility] Comment on above: trace Leukocytes, UA Negative Negative - 50 0+++ Skyler/mcL [facility] Nitrite, UA Negative Negative - Positive [facility] pH, UA 5.5 5 - 9 [facility] Protein, UA Positive Negative - 1999(20) ++++ mg/dL [facility] Comment on above: 100 Spec Grav, UA 1.03 1 - 1.03 [facility] Urobilinogen, UA 0.2 0.2 - 12 mg/dL [facility] US PELVIC COMPLETE W/ TVon 0 01-12-2025 [...] Doppler flow within the bilateral ovaries. Electronically Signed:Electronicall y signed by NORMA SANDERSON II, MD, PHD at 13-Jan-2025 11:16:[address] [facility] Normal Not Available Comment on above: Order Comment: US PE LVIS-TRANSVAG IF INDICATED No LMP recorded. Urine Cultureon 01-03-2025 Bacteria identified Cx Nom (U) 15,000 colonies/ml mixed bacterial skin contaminants 2 Days PERFORMED BY: [facility] TEENA [place] [address] PATHOLOGIST FIREBRICK LAYER HELPER BRUCE CALI M.D. Normal [facility] Comment on above: Performed By: #### C UU #### [facility] [address] [place] [address] [facility] Urine cultureOrdered By: Zenon Saxena on 01-03-2025 Bacteria identified Cx Nom (U) Urine culture [facility] IGP,APTIMA HPV,AGE GDLNon AGE GDLN ACOG TESTING Note . [facility] Comment on above: TESTS RESULT FLAG U NITS REF RANGE LAB Clinician Provided Cytology Information Source.............Cervix;Endocervix No. of containers..01 ThinPrep Vial Age Algo ACOG Mela... FLAG LEGEND: L-Low Normal,H-High Normal,LL-Alert Low,HH-Alert High <-Panic Low,>-Panic High,A-Abnormal,AA-Critical Abnormal Performed at: 01 =G [facility] [place] [address] Aleida Colon MD, IGP, RFX APTIMA HPV ASCU Note Abnormal . [facility] Comment on above: TESTS RESULT FLAG UN ITS REF RANGE LAB DIAGNOSIS: [A] 02 EPITHELIAL CELL ABNORMALITY. LOW GRADE SQUAMOUS INTRAEPITHELIAL LESION (LSIL). Specimen adequacy: 02 Satisfactory for evaluation. Endocervical and/or squamous metaplastic cells (endocervical component) are present. Performed by: Cynthia Smith, Industrial Painter (ASC) Electronically si... Johanne Desir MD, Pathologist . 02 Pathologist [...] <-Panic Low,>-Panic High,A-Abnormal,AA-Critical Abnormal Performed at: [address] [facility] [address] [place] [address] Aleida Colon MD, Performed at: = - [facility] [address], [place] [id number] Bull Chain Operator: Aleida Colon MD, Phone: [phone] Performed at: [facility] [address], [place] [id number] Bull Chain Operator: Aleida Colon MD, Phone: [phone] Interpretation and review of laboratory results Abnormal [facility] BRUSH-SPATULA CERVIX ENDOCERVIX [facility] Insertion/Removal of Contrac eptive Capsuleon 12-02-2024 Pilar [...] with steri-strips and pressure bandage applied: yes [facility] US PELVIC COMPLETE W/ TVon 0 11-30-2024 [...] ovaries. No evidence of ovarian cysts. Electronically Signed:Sharall y signed by NORMA SANDERSON II, MD, PHD at 03-Dec-2024 08:37:11 AM [facility] Normal Not Available Comment on above: Order Comment: US PE LVIS-TRANSVAG IF INDICATED No LMP recorded. ALL CBC WITH AUTO DIFFon BASOPHILS ABSOLUTE AUTO 0.1 [facility] Basophils/100 WBC (Bld) 0.6 % 0.2 - 2.0 % [facility] Eosinophils/100 WBC (Bld) 2.6 % 0.9 - 7.0 % [facility] Erythrocyte distribution width (RBC) [Ratio] 13.2 % 11.0 - 15.0 % [facility] Hematocrit (Bld) [Volume fraction] 38.2 % 36.0 - 48.0 % [facility] Hemoglobin (Bld) [Mass/Vol] 12.4 g/dL 12.0 - 16.0 g/dL [facility] IMMATURE GRANULOCYTES ABS AUTO 0.04 High [facility] Immature granulocytes/100 WBC (Bld) 0.4 % 0.0 - 0.5 % [facility] Interpretation and review of laboratory results Abnormal [facility] LYMPHOCYTES ABSOLUTE AUTO 3.4 [facility] Lymphocytes/100 WBC (Bld) 34.8 % 20.5 - 60.0 % [facility] MCH (RBC) [Entitic mass] 28.3 pg 26.7 - 34.0 pg [facility] MCHC (RBC) [Mass/Vol] 32.5 g/dL 29.9 - 35.2 g/dL [facility] MCV (RBC) [Entitic vol] 87.2 fL 81.0 - 99.0 fL [facility] MONOCYTES ABSOLUTE AUTO 0.7 [facility] Monocytes/100 WBC (Bld) 7.2 % 1.7 - 12.0 % [facility] NEUTROPHILS ABSOLUTE AUTO 5.4 [facility] Neutrophils/100 WBC (Bld) 54.4 % 43.0 - 75.0 % [facility] Platelet mean volume (Bld) [Entitic vol] 10 fL 9.5 - 13.5 fL [facility] TBH EO # 0.3 [facility]H PLT [address] [facility] RBC 4.38 [facility] WBC 9.9 [facility] HCG ( test) IA.rapi d Ql (U)Ordered By: Mir Silva on 09-07-2024 HCG ( test) Ql (U) Urine human chorionic gonadotropin (hCG) detection by immunoassay [facility] HCG,Urineon 09-07-2024 Beta HCG ( test) Ql (U) Negative Normal [facility] Comment on above: Result Comment: PERF ORMED BY: [place] [address] PATHOLOGIST FIREBRICK LAYER HELPER BRUCE CALI M.D. Performed By: #### U HCG #### [address] [place] 09-07-2024 L Specimen: [id number] Received: 09/07/24 Status: GHAZAL Zurita Num: [id number] Spec Type: Surgical Subm Dr: Mir Silva MD Tissues: A Small Intestine - Biopsy/Polyp (SMALL BOWEL BX R/O CELIAC) Procedures: HE/2, Gross/Micro L4 Age/ Patient Sex Location Account Attending Physician Jes Malik [place] [id number] Mir Silva MD SPEC NUM: [id number] RECD: 09/07/24 STATUS: GHAZAL ZURITA NUM: [id number] JUDIT: 09/07/[address] [facility] [address]: Mir Silva MD ENTERED: 09/07/[address] [facility] [address]: ARNULFO TYPE: Surgical DEPT: S ENTERED BY: [id number] RECV BY: [id number] ORDERED: HE/2, Gross/Micro L4 ORDERED: HE/2, Gross/Micro [...] submitted in a single cassette. (1, ns, [id number]) Microscopic Description Microscopic examination is performed. CPT Codes 04478 Specimen: [id number] Received: 09/07/24-1610 Status: GHAZAL Zur[place] Num: [id number] Spec Type: Surgical Subm Dr: Mir Silva MD Tissues: A Small Intestine - Biopsy/Polyp (SMALL BOWEL BX R/O CELIAC) Procedures: HE/2, Gross/Micro L4 Patient: Jes Malik [id number] (Continued) Signed (signature on file) Roberth Martinez MD 09/08/24 1012 Normal [facility] CBC AND AUTO DIFFon 08-28-20 24 ABSOLUTE BASOPHIL 0.0 X10E9/L Normal 0.0-0.2 [facility] Comment on above: Performed By: #### C DONG CBCA #### [facility] ([id number]) [address] [place] [address], [place] [address] ABSOLUTE NEUTROPHIL 3.8 X10E9/L Normal 1.5-6.6 [facility] Comment on above: Performed By: #### C MP, CBCA #### [facility] ([id number]) [address] [place] [address] Basophils/100 WBC (Bld) 0.3 % Normal [facility] Comment on above: Performed By: #### C MP, CBCA #### [facility] ([id number]) [address] [place] [address] Eosinophils (Bld) [#/Vol] 0.0 10*3/uL Normal 0.0-0.4 [facility] Comment on above: Performed By: #### C MP, CBCA #### [facility] ([id number]) [address] [place] [address] Eosinophils/100 WBC (Bld) 0.8 % Normal [facility] Comment on above: Performed By: #### C MP, CBCA #### [facility] ([id number]) [address] [place] [address] Erythrocyte distribution width (RBC) [Ratio] 14.5 % Normal 11.5-15.0 [facility] Comment on above: Performed By: #### C MP, CBCA #### [facility] ([id number]) [address] [place] [address] Hematocrit (Bld) [Volume fraction] 38.8 % Normal 35-47 [facility] Comment on above: Performed By: #### C MP, CBCA #### [facility] ([id number]) [address] [place] [address] Hemoglobin (Bld) [Mass/Vol] 13.0 g/dL Normal 11.7-15.5 [facility] Comment on above: Performed By: #### C MP, CBCA #### [facility] ([id number]) [address] [place] [address] Lymphocytes (Bld) [#/Vol] 0.5 10*3/uL Low 1.0-3.5 [facility] Comment on above: Performed By: #### C MP, CBCA #### [facility] ([id number]) [address] [place] [address] 68471 Lymphocytes/100 WBC (Bld) 11.5 % Normal [facility] Comment on above: Performed By: #### C MP, CBCA #### [facility] ([id number]) [address] [place] [address] 60880 MCH (RBC) [Entitic mass] 28.6 pg Normal 27-34 [facility] Comment on above: Performed By: #### C MP, CBCA #### [facility] ([id number]) [address] [place] [address] 80347 MCHC (RBC) [Mass/Vol] 33.5 g/dL Normal 32-36 [facility] Comment on above: Performed By: #### C MP, CBCA #### [facility] ([id number]) [address] [place] [address] 48089 MCV (RBC) [Entitic vol] 85 fL Normal 80-100 [facility] Comment on above: Performed By: #### C MP, CBCA #### [facility] ([id number]) [address] [place] [address] 07056 Monocytes (Bld) [#/Vol] 0.2 10*3/uL Normal 0-0.9 [facility] Comment on above: Performed By: #### C MP, CBCA #### [facility] ([id number]) [address] [place] [address] 54281 Monocytes/100 WBC (Bld) 5.1 % Normal [facility] Comment on above: Performed By: #### C MP, CBCA #### [facility] ([id number]) [address] [place] [address] 05299 Neutrophils/100 WBC (Bld) 82.3 % Normal [facility] Comment on above: Performed By: #### C MP, CBCA #### [facility] ([id number]) [address] [place] [address] 82473 Platelet mean volume (Bld) [Entitic vol] 8.6 fL Normal 7-12 [facility] Comment on above: Performed By: #### C MP, CBCA #### [facility] ([id number]) [address] [place] [address] 56939 Platelets (Bld) [#/Vol] 225 10*3/uL Normal 150-450 [facility] Comment on above: Performed By: #### C MP, CBCA #### [facility] ([id number]) [address] [place] [address] 59900 RBC COUNT 4.55 X10E12/L Normal 3.80-5.20 [facility] Comment on above: Performed By: #### C MP, CBCA #### [facility] ([id number]) [address] [place] [address] 11480 WBC (Bld) [#/Vol] 4.6 10*3/uL Normal 4.0-11.0 [facility] Comment on above: Performed By: #### C MP, CBCA #### [facility] ([id number]) [address] [place] [address] 12843 COMPREHENSIVE METABOLIC PANE Carlin 08-28-2024 Albumin [Mass/Vol] 3.6 g/dL Normal 3.2-5.3 [facility] Comment on above: Performed By: #### C MP, CBCA #### [facility] ([id number]) [address] [place] [address] 96505 ALP [Catalytic activity/Vol] 65 U/L Normal 39-130 [facility] Comment on above: Performed By: #### C MP, CBCA #### [facility] ([id number]) [address] [place] [address] 19792 ALT [Catalytic activity/Vol] 29 U/L Normal 0-31 [facility] Comment on above: Performed By: #### C MP, CBCA #### [facility] ([id number]) [address] [place] [address] [place] [address] Anion gap [Moles/Vol] 10 mmol/L Normal 5-15 [facility] Comment on above: Performed By: #### C DONG, CBCA #### [facility] ([id number]) [address] [place] [address] 66784 AST [Catalytic activity/Vol] 36 U/L Normal 0-41 [facility] Comment on above: Performed By: #### C DONG, CBCA #### [facility] ([id number]) [address] [place] [address] [place] [address] Bilirubin [Mass/Vol] 0.9 mg/dL Normal 0.3-1.2 [facility] Comment on above: Performed By: #### C DONG, CBCA #### [facility] ([id number]) [address] [place] [address] 11639 Calcium [Mass/Vol] 8.3 mg/dL Low 8.5-10.5 [facility] Comment on above: Performed By: #### C MP, CBCA #### [facility] ([id number]) [address] [place] [address] 81586 Chloride [Moles/Vol] 103 mmol/L Normal 98-109 [facility] Comment on above: Performed By: #### C MP, CBCA #### [facility] ([id number]) [address] [place] [address] [place] [address] CO2 [Moles/Vol] 22 mmol/L Normal 22-32 [facility] Comment on above: Performed By: #### C DONG CBCA #### [facility] ([id number]) [address] [place] [address] 60977 Creatinine [Mass/Vol] 0.72 mg/dL Normal 0.40-1.00 [facility] Comment on above: Result Comment: METH OD TRACEABLE TO IDMS STANDARD Performed By: #### C DONG CBCA #### [facility] ([id number]) [address] [place] [address] 47735 eGFR (CKD-EPI) NON-RACE DEPENDENT >90 Normal >59 [facility] Comment on above: Result Comment: Reported eGFR is based on the CKD-EPI 2020 equation that does not use a race coefficient. Performed By: #### C DONG CBCA #### [facility] ([id number]) [address] [place] [address] 85122 Glucose [Mass/Vol] 103 mg/dL High 65-99 [facility] Comment on above: Performed By: #### C DONG CBCA #### [facility] ([id number]) [address] [place] [address] 74684 Potassium [Moles/Vol] 3.5 mmol/L Normal 3.5-5.0 [facility] Comment on above: Performed By: #### C DONG CBCA #### [facility] ([id number]) [address] [place] [address] 49692 Protein [Mass/Vol] 6.9 g/dL Normal 6.0-8.0 [facility] Comment on above: Performed By: #### C DONG CBCA #### [facility] ([id number]) [address] [place] [address] 57862 Sodium [Moles/Vol] 135 mmol/L Normal 134-146 [facility] Comment on above: Performed By: #### C MP, CBCA #### [facility] ([id number]) [address] [place] [address] Urea nitrogen [Mass/Vol] 16 mg/dL Normal 5-23 [facility] Comment on above: Performed By: #### C MP CBCA #### [facility] ([id number]) [address] [place] [address] ABDOMEN AND PELVIS W CONT on [...] Burleson MD on 08/28/2024 8:12 PM Normal [facility] HCG ( test) Ql (U)o n 08-28-2024 Beta HCG ( test) Ql (U) Negative Normal [facility] Comment on above: Performed By: #### 2 106-3 #### [facility] ([id number]) [address] [place] [address] [place] [address] URN MACROSCOPIC NURon 2023 BILIRUBIN MOLLY Small Abnormal [facility] Comment on above: Performed By: #### N UM #### [facility] ([id number]) [address] [place] [address] [place] [address] BLOOD/HGB MOLLY Negative Normal [facility] Comment on above: Performed By: #### N UM #### [facility] ([id number]) [address] [place] [place] [address] [place] [address] GLUCOSE MOLLY Negative Normal [facility] Comment on above: Performed By: #### N UM #### [facility] ([id number]) [address] [place] [address] [place] [address] KETONES MOLLY Negative Normal [facility] Comment on above: Performed By: #### N UM #### [facility] ([id number]) [address] [place] [address] [place] [address] LEUKOCYTE ESTERASE MOLLY Negative Normal [facility] Comment on above: Performed By: #### N UM #### [facility] ([id number]) [address] [place] [place] [address] [place] [address] NITRITE MOLLY Negative Normal [facility] Comment on above: Performed By: #### N UM #### [facility] ([id number]) [address] [place] [address] [place] [address] PH MOLLY 5.5 Normal 5.0-8.5 [facility] Comment on above: Performed By: #### N UM #### [facility] ([id number]) [address] [place] [place] [address] [place] [address] PROTEIN MOLLY >=300 Abnormal [facility] Comment on above: Performed By: #### N UM #### [facility] ([id number]) [address] [place] [address] 63711 SPECIFIC GRAVITY MOLLY >=1.030 Normal 1.003-1.035 [facility] Comment on above: Performed By: #### N UM #### [facility] ([id number]) [address] [place] [address] 66380 UROBILINOGEN MOLLY 0.2 eu/dL Normal <1.1 [facility] Comment on above: Performed By: #### N UM #### [facility] ([id number]) [address] [place] [address] 18689 MHPT TRICHOMONAS/WET PREPon 07-01-2024 WET PREP TRIC BV CYDNEY Wet Prep Tric BV Cydney WP.BACT Bacteria^Bacteria [facility] WET PREP TRIC BV [place] WP.CLUE Clue Cells^Clue Cells [facility] WET PREP TRIC BV [place] WP.JEANNETTE Fungal Elements^Fungal Elements [facility] WET PREP TRIC BV [place] WP.RBC RBC^RBC [facility] WET PREP TRIC BV [place] WP.TRICH Trichomonas^Trichomo dee [facility] WET PREP TRIC BV [place] WP.WBC WBC^WBC [facility] CLINISYNC [facility] No Panel Informationon 07-01 WET PREP TRIC BV [place] F Few^Few [facility] WET PREP TRIC BV [place] N None Seen^None Seen [facility] PRBC LEUKOREDUCEDon 12-25-19 23 ABO and Rh group Nom (Bld) Cross Match Result Compatible Unit Blood Type O Pos Unit Number [id number] Status Information Transfused Product ID Red Blood Cells Product Code [id number] Cross Match Result Compatible Unit Blood Type O Pos Unit Number [id number] Status Information Transfused Product ID Red Blood Cells Product Code [id number] Normal [facility] Comment on above: Performed By: #### P RBC ####[facility] [address] [place], [place] [address]Ag. Benoit Dontae CBC AUTO DIFFon 12-21-2022 BASO # 0.1 103/ul Normal 0.0-0.1 [facility] Comment on above: Performed By: #### C BC ####[facility] [address] [place] [address]Dr. Benoit Diggs Basophils/100 WBC (Bld) 1.2 % Normal 0.2-2.0 [facility] Comment on above: Performed By: #### C BC ####[facility] [address] [place] [address]Dr. Benoit Diggs EO # 0.4 103/ul Normal 0.0-0.7 [facility] Comment on above: Performed By: #### C BC ####[facility] [address] [place] [address]Dr. Benoit Diggs Eosinophils/100 WBC (Bld) 4.5 % Normal 0.9-7.0 [facility] Comment on above: Performed By: #### C BC ####[facility] [address] [place], [place] [address]Dr. Benoit Diggs Erythrocyte distribution width (RBC) [Ratio] 16.6 % Critically high 11.0-15.0 [facility] Comment on above: Performed By: #### C BC ####[facility] [address] [place], [place] [address]Dr. Benoit Diggs Hematocrit (Bld) [Volume fraction] 40.3 % Normal 36.0-48.0 [facility] Comment on above: Performed By: #### C BC ####[facility] [address] [place], [place] [address]Dr. Benoit Diggs Hemoglobin (Bld) [Mass/Vol] 12.6 g/dL Normal 12.0-16.0 [facility] Comment on above: Performed By: #### C BC ####[facility] [address] [place] [address]Dr. Benoit Diggs IG # 0.04 10e3/ul Critically high 0.00-0.03 [facility] Comment on above: Performed By: #### C BC ####[facility] [address] [place] [address]Dr. Benoit Diggs IG % 0.5 % Normal 0.0-0.5 [facility] Comment on above: Performed By: #### C BC ####[facility] [address] [place] [address]Dr. Benoit Diggs LYMPH # 3.0 103/ul Normal 1.2-3.8 [facility] Comment on above: Performed By: #### C BC ####[facility] [address] [place] [address]Dr. Benoit Diggs Lymphocytes/100 WBC (Bld) 36.0 % Normal 20.5-60.0 [facility] Comment on above: Performed By: #### C BC ####[facility] [address] [place] [address]Dr. Benoit Dontae MANUAL DIFF REQ NO Normal [facility] Comment on above: Performed By: #### C BC ####[facility] [address] [place] [address]Dr. Benoit Dontae MCH (RBC) [Entitic mass] 25.3 pg Critically low 26.7-34.0 [facility] Comment on above: Performed By: #### C BC ####[facility] [address] [place] [address]Dr. Benoit Diggs MCHC (RBC) [Mass/Vol] 31.3 g/dL Normal 29.9-35.2 [facility] Comment on above: Performed By: #### C BC ####[facility] [address] [place] [address]Dr. Benoit Dontae MCV (RBC) [Entitic vol] 80.9 fL Critically low 81.0-99.0 [facility] Comment on above: Performed By: #### C BC ####[facility] [address] [place] [address]Dr. Benoit Dontae MONO # 0.4 103/ul Normal 0.3-0.8 [facility] Comment on above: Performed By: #### C BC ####[facility] [address] [place] [address]Dr. Benoit Dontae Monocytes/100 WBC (Bld) 4.8 % Normal 1.7-12.0 [facility] Comment on above: Performed By: #### C BC ####[facility] [address] [place] [address]Dr. Benoit Diggs NEUT # 4.4 103/ul Normal 1.4-6.5 [facility] Comment on above: Performed By: #### C BC ####[facility] [address] [place] [address]Dr. Benoit Diggs Neutrophils/100 WBC (Bld) 53.0 % Normal 43.0-75.0 [facility] Comment on above: Performed By: #### C BC ####[facility] [address] [place] [address]Dr. Benoit Diggs Platelet mean volume (Bld) [Entitic vol] 10.8 fL Normal 9.5-13.5 [facility] Comment on above: Performed By: #### C BC ####[facility] [address] [place] [address]Dr. Benoit Diggs PLT 410 103/ul Normal 150-450 [facility] Comment on above: Performed By: #### C BC ####[facility] [address] [place], [place] [address]Dr. Benoit Diggs RBC 4.98 106/ul Normal 4.20-5.40 [facility] Comment on above: Performed By: #### C BC ####[facility] [address] [place] [address]Dr. Benoit Diggs WBC 8.3 103/ul Normal 4.0-11.0 [facility] Comment on above: Performed By: #### C BC ####[facility] [address] [place] [address]Dr. Benoit Diggs GLYCOHEMOGLOBIN A1Con 2022 ADA RECOMMENDATION SEE BELOW Normal [facility] Comment on above: Result Comment: ADA RECOMMENDED LIMIT 4.0 - 6.0 ADA THERAPEUTIC TARGET < 7.0 ACTION SUGGESTED > 7.0 Performed By: #### A 1C ####[facility] [address] [place] [address]Dr. Benoit Diggs Glucose [Mass/Vol] 100 mg/dL Normal [facility] Comment on above: Performed By: #### A 1C ####[facility] [address] [place] [address]Dr. Benoit Diggs HbA1c (Bld) [Mass fraction] 5.1 % Normal 4.5-6.2 [facility] Comment on above: Performed By: #### A 1C ####[facility] [address] [place] [address]Dr. Benoit Diggs LIPID PROFILEon 12-21-2022 CHOL-HDL RATIO NORM SEE BELOW Normal [facility] Comment on above: Result Comment: 3.3 - 4.4 LOW RISK 4.4 - 7.1 AVERAGE RISK 7.1 - 11.0 MODERATE RISK >11.0 HIGH RISK Performed By: #### L IVER, LIPID, BMP, TSH ####[facility] [address] [place] [address]Dr. Benoit Diggs Cholesterol [Mass/Vol] 184 mg/dL Normal <=200 [facility] Comment on above: Performed By: #### L IVER, LIPID, BMP, TSH ####[facility] [address] [place] [address]Dr. Karylan Diggs Cholesterol in HDL [Mass/Vol] 52 mg/dL Normal 40-60 [facility] Comment on above: Performed By: #### L IVER, LIPID, BMP, TSH ####[facility] [address] [place] [address]Dr. Benoit Diggs Cholesterol in LDL [Mass/Vol] 114.8 mg/dL Normal [facility] Comment on above: Performed By: #### L IVER, LIPID, BMP, TSH ####[facility] [address] [place] [address]Dr. Karylan Diggs Cholesterol.total/C holesterol in HDL [Mass ratio] 3.5 {ratio} Normal [facility] Comment on above: Performed By: #### L IVER, LIPID, BMP, TSH ####[facility] [address] [place] [id number]. Karylan Diggs HDL NORMAL > or = 60 mg/dl - LOW CARDIOVASCULAR RISK <40 mg/dl - HIGH CARDIOVASCULAR RISK Normal [facility] Comment on above: Performed By: #### L IVER, LIPID, BMP, TSH ####[facility] [address] [place] [address]Dr. Benoit Diggs LDL CALC NORMAL SEE BELOW Normal [facility] Comment on above: Result Comment: <100 mg/dl OPTIMAL 100 - 129 mg/dl NEAR OR ABOVE OPTIMAL 130 - 159 mg/dl BORDERLINE HIGH 160 - 189 mg/dl HIGH >190 mg/dl VERY HIGH Performed By: #### L IVER, LIPID, BMP, TSH ####[facility] [address] [place] [address]Dr. Benoit Diggs Triglyceride [Mass/Vol] 86 mg/dL Normal <=150 [facility] Comment on above: Performed By: #### L IVER, LIPID, BMP, TSH ####[facility] [address] [place] [address]Dr. Benoit Diggs VLDL CALC 17.2 mg/dL Normal [facility] Comment on above: Performed By: #### L IVER, LIPID, BMP, TSH ####[facility] [address] [place] [address]Dr. Benoit Diggs LIVER PROFILEon 12-21-2022 Albumin [Mass/Vol] 3.3 g/dL Critically low 3.4-5.0 [facility] Comment on above: Performed By: #### L IVER, LIPID, BMP, TSH ####[facility] [address] [place] [address]Dr. Benoit Diggs Albumin/Globulin [Mass ratio] 0.8 {ratio} Normal [facility] Comment on above: Performed By: #### L IVER, LIPID, BMP, TSH ####[facility] [address] [place] [address]Dr. Benoit Diggs ALP [Catalytic activity/Vol] 110 U/L Normal 46-116 [facility] Comment on above: Performed By: #### L IVER, LIPID, BMP, TSH ####[facility] [address] [place] [address]Dr. Benoit Diggs ALT [Catalytic activity/Vol] 25 U/L Normal 14-59 [facility] Comment on above: Performed By: #### L IVER, LIPID, BMP, TSH ####[facility] [address] [place] [address]Dr. Benoit Diggs AST [Catalytic activity/Vol] 20 U/L Normal 15-37 [facility] Comment on above: Performed By: #### L IVER, LIPID, BMP, TSH ####[facility] [address] [place] [address]Dr. Benoit Diggs BILI, CONJUGATED 0.1 mg/dL Normal 0.0-0.2 [facility] [place] [facility] Comment on above: Performed By: #### L IVER, LIPID, BMP, TSH ####[facility] [address] [place] [address]Dr. Benoit Diggs Bilirubin [Mass/Vol] 0.4 mg/dL Normal 0.2-1.0 [facility] Comment on above: Performed By: #### L IVER, LIPID, BMP, TSH ####[facility] [address] [place] [address]DrJael Diggs Globulin (S) [Mass/Vol] 3.9 g/dL Normal [facility] Comment on above: Performed By: #### L IVER, LIPID, BMP, TSH ####[facility] [address] [place] [address]DrJael Diggs Protein [Mass/Vol] 7.2 g/dL Normal 6.4-8.2 [facility] Comment on above: Performed By: #### L IVER, LIPID, BMP, TSH ####[facility] [address] [place] [address]DrJael Diggs PROF CHEM 8 (BAS METB)on Anion gap [Moles/Vol] 13.2 mmol/L Normal [facility] Comment on above: Performed By: #### C BC #### [facility] [address] [place] [address] [address] Benoit Diggs Calcium [Mass/Vol] 9.2 mg/dL Normal 8.5-10.1 [facility] Comment on above: Performed By: #### C BC #### [facility] [address] [place] [address] [address] Benoit Diggs Chloride [Moles/Vol] 108 mmol/L Critically high 98-107 [facility] Comment on above: Performed By: #### C BC #### [facility] [address] [place] [address] [address] Benoit Diggs CO2 [Moles/Vol] 27.9 mmol/L Normal 21.0-32.0 [facility] Comment on above: Performed By: #### C BC #### [facility] [address] [place] [address] [address] Benoit Diggs Creatinine [Mass/Vol] 0.62 mg/dL Normal 0.55-1.02 [facility] Comment on above: Performed By: #### C BC #### [facility] [address] [place] [address] Dr. Benoit Diggs EGFR-AF DUTCH >60 Normal >=60 [facility] Comment on above: Performed By: #### C BC #### [facility] [address] [place] [address] Dr. Benoit Diggs EGFR-NON AF DUTCH >60 Normal >=60 [facility] Comment on above: Performed By: #### C BC #### [facility] [address] [place] [address] Dr. Benoit Diggs Glucose [Mass/Vol] 92 mg/dL Normal 74-106 [facility] Comment on above: Performed By: #### C BC #### [facility] [address] [place] [address] Dr. Benoit Diggs Potassium [Moles/Vol] 4.1 mmol/L Normal 3.5-5.1 [facility] Comment on above: Performed By: #### C BC #### [facility] [address] [place] [address] Dr. Benoit Diggs Sodium [Moles/Vol] 145 mmol/L Normal 136-145 [facility] Comment on above: Performed By: #### C BC #### [facility] [address] [place] [address] Dr. Benoit Diggs Urea nitrogen [Mass/Vol] 8.0 mg/dL Normal 7.0-18.0 [facility] Comment on above: Performed By: #### C BC #### [facility] [address] [place] [address] Dr. Benoit Diggs Urea nitrogen/Creatinine [Mass ratio] 12.9 mg/mg Normal [facility] Comment on above: Performed By: #### C BC #### [facility] [address] [place] [address] Dr. Benoit Diggs TSHon 12-21-2022 TSH 1.318 uIU/mL Normal 0.358-3.740 [facility] Comment on above: Performed By: #### C BC #### [facility] [address] [place] [address] Dr. Benoit Diggs CBC AUTO DIFFon 12-04-2022 BASO # 0.1 103/ul Normal 0.0-0.1 [facility] Comment on above: Performed By: #### C BC #### [facility] [address] [place] [address] Dr. Benoit Diggs Basophils/100 WBC (Bld) 0.7 % Normal 0.2-2.0 [facility] Comment on above: Performed By: #### C BC #### [facility] [address] [place] [address] Dr. Benoit Diggs EO # 0.4 103/ul Normal 0.0-0.7 [facility] Comment on above: Performed By: #### C BC #### [facility] [address] [place] [address] Dr. Benoit Diggs Eosinophils/100 WBC (Bld) 3.8 % Normal 0.9-7.0 [facility] Comment on above: Performed By: #### C BC #### [facility] [address] [place] [address] Dr. Benoit Diggs Erythrocyte distribution width (RBC) [Ratio] 15.2 % Critically high 11.0-15.0 [facility] Comment on above: Performed By: #### C BC #### [facility] [address] [place], [place] [id number] Dr. Benoit Diggs Hematocrit (Bld) [Volume fraction] 28.7 % Critically low 36.0-48.0 [facility] Comment on above: Performed By: #### C BC #### [facility] [address] [place] [address] Dr. Benoit Diggs Hemoglobin (Bld) [Mass/Vol] 9.1 g/dL Critically low 12.0-16.0 [facility] Comment on above: Performed By: #### C BC #### [facility] [address] [place] [address] Dr. Benoit Diggs IG # 0.05 10e3/ul Critically high 0.00-0.03 [facility] Comment on above: Performed By: #### C BC #### [facility] [address] [place] [address] Dr. Benoit Diggs IG % 0.5 % Normal 0.0-0.5 [facility] Comment on above: Performed By: #### C BC #### [facility] [address] [place] [address] Dr. Benoit Diggs LYMPH # 3.3 103/ul Normal 1.2-3.8 [facility] Comment on above: Performed By: #### C BC #### [facility] [address] [place] [address] Dr. Benoit Diggs Lymphocytes/100 WBC (Bld) 31.8 % Normal 20.5-60.0 [facility] Comment on above: Performed By: #### C BC #### [facility] [address] [place] [address] Dr. Benoit Diggs MANUAL DIFF REQ NO Normal [facility] Comment on above: Performed By: #### C BC #### [facility] [address] [place] [address] Dr. Benoit Diggs MCH (RBC) [Entitic mass] 25.3 pg Critically low 26.7-34.0 [facility] Comment on above: Performed By: #### C BC #### [facility] [address] [place] [address] Dr. Benoit Diggs MCHC (RBC) [Mass/Vol] 31.7 g/dL Normal 29.9-35.2 [facility] Comment on above: Performed By: #### C BC #### [facility] [address] [address] [address] Benoit Diggs MCV (RBC) [Entitic vol] 79.9 fL Critically low 81.0-99.0 [facility] Comment on above: Performed By: #### C BC #### [facility] [address] [address] [address] Benoit Diggs MONO # 0.7 103/ul Normal 0.3-0.8 [facility] Comment on above: Performed By: #### C BC #### [facility] [address] [place] [address] Dr. Benoit Diggs Monocytes/100 WBC (Bld) 7.2 % Normal 1.7-12.0 [facility] Comment on above: Performed By: #### C BC #### [facility] [address] [place] [address] Dr. Benoit Diggs NEUT # 5.8 103/ul Normal 1.4-6.5 [facility] Comment on above: Performed By: #### C BC #### [facility] [address] [place] [address] Dr. Benoit Diggs Neutrophils/100 WBC (Bld) 56.0 % Normal 43.0-75.0 [facility] Comment on above: Performed By: #### C BC #### [facility] [address] [place] [address] Dr. Benoit Diggs Platelet mean volume (Bld) [Entitic vol] 10.5 fL Normal 9.5-13.5 [facility] Comment on above: Performed By: #### C BC #### [facility] [address] [place] [address] Dr. Benoit Diggs PLT 152 103/ul Normal 150-450 [facility] Comment on above: Performed By: #### C BC #### [facility] [address] [place] [address] Dr. Benoit Diggs RBC 3.59 106/ul Critically low 4.20-5.40 [facility] Comment on above: Performed By: #### C BC #### [facility] [address] [place] [address] Dr. Benoit Diggs WBC 10.3 103/ul Normal 4.0-11.0 [facility] Comment on above: Performed By: #### C BC #### [facility] [address] [place] [address] Dr. Benoit Diggs CBC AUTO DIFFon 12-03-2022 BASO # 0.0 103/ul Normal 0.0-0.1 [facility] Comment on above: Performed By: #### C BC #### [facility] [address] [place] [address] Dr. Benoit Diggs Basophils/100 WBC (Bld) 0.4 % Normal 0.2-2.0 [facility] Comment on above: Performed By: #### C BC #### [facility] [address] [place] [address] Dr. Benoit Diggs EO # 0.3 103/ul Normal 0.0-0.7 [facility] Comment on above: Performed By: #### C BC #### [facility] [address] [place] [address] Dr. Benoit Diggs Eosinophils/100 WBC (Bld) 3.1 % Normal 0.9-7.0 [facility] Comment on above: Performed By: #### C BC #### [facility] [address] [place] [address] Dr. Benoit Diggs Erythrocyte distribution width (RBC) [Ratio] 15.5 % Critically high 11.0-15.0 [facility] Comment on above: Performed By: #### C BC #### [facility] [address] [place] [address] Dr. Benoit Diggs Hematocrit (Bld) [Volume fraction] 22.0 % Critically low 36.0-48.0 [facility] Comment on above: Performed By: #### C BC #### [facility] [address] [place] [address] Dr. Benoit Diggs Hemoglobin (Bld) [Mass/Vol] 6.8 g/dL Critically low 12.0-16.0 [facility] Comment on above: Performed By: #### C BC #### [facility] [address] [place] [address] Dr. Benoit Diggs IG # 0.05 10e3/ul Critically high 0.00-0.03 [facility] Comment on above: Performed By: #### C BC #### [facility] [address] [address] [address] Benoit Diggs IG % 0.5 % Normal 0.0-0.5 [facility] Comment on above: Performed By: #### C BC #### [facility] [address] [place] [address] Dr. Benoit Diggs LYMPH # 2.9 103/ul Normal 1.2-3.8 [facility] Comment on above: Performed By: #### C BC #### [facility] [address] [place] [address] Dr. Benoit Diggs Lymphocytes/100 WBC (Bld) 31.0 % Normal 20.5-60.0 [facility] Comment on above: Performed By: #### C BC #### [facility] [address] [place] [address] Dr. Benoit Diggs MANUAL DIFF REQ NO Normal [facility] Comment on above: Performed By: #### C BC #### [facility] [address] [place] [address] Dr. Benoit Diggs MCH (RBC) [Entitic mass] 24.6 pg Critically low 26.7-34.0 [facility] Comment on above: Performed By: #### C BC #### [facility] [address] [place] [address] Dr. Benoit Diggs MCHC (RBC) [Mass/Vol] 30.9 g/dL Normal 29.9-35.2 [facility] Comment on above: Performed By: #### C BC #### [facility] [address] [place] [address] Dr. Benoit Diggs MCV (RBC) [Entitic vol] 79.7 fL Critically low 81.0-99.0 [facility] Comment on above: Performed By: #### C BC #### [facility] [address] [place] [address] Dr. Benoit Diggs MONO # 0.8 103/ul Normal 0.3-0.8 [facility] Comment on above: Performed By: #### C BC #### [facility] [address] [place] [address] Dr. Benoit Diggs Monocytes/100 WBC (Bld) 7.9 % Normal 1.7-12.0 [facility] Comment on above: Performed By: #### C BC #### [facility] [address] [place] [address] Dr. Benoit Diggs NEUT # 5.4 103/ul Normal 1.4-6.5 [facility] Comment on above: Performed By: #### C BC #### [facility] [address] [place] [address] Dr. Benoit Diggs Neutrophils/100 WBC (Bld) 57.1 % Normal 43.0-75.0 [facility] Comment on above: Performed By: #### C BC #### [facility] [address] [place] [address] Dr. Benoit Diggs Platelet mean volume (Bld) [Entitic vol] 11.9 fL Normal 9.5-13.5 [facility] Comment on above: Performed By: #### C BC #### [facility] [address] [place] [address] Dr. Benoit Diggs PLT 180 103/ul Normal 150-450 [facility] Comment on above: Performed By: #### C BC #### [facility] [address] [place] [address] Dr. Benoit Diggs RBC 2.76 106/ul Critically low 4.20-5.40 [facility] Comment on above: Performed By: #### C BC #### [facility] [address] [place] [address] Dr. Benoit Diggs WBC 9.5 103/ul Normal 4.0-11.0 [facility] Comment on above: Performed By: #### C BC #### [facility] [address] [address] [address] Benoit Diggs AMNISUREon 12-01-2022 AMNISURE Negative Normal NEGATIVE [facility] Comment on above: Performed By: #### C BC #### [facility] [address] [id number] Benoit Diggs CBC AUTO DIFFon 12-01-2022 BASO # 0.1 103/ul Normal 0.0-0.1 [facility] Comment on above: Performed By: #### C BC ####[facility] [address] [id number] Diggs Basophils/100 WBC (Bld) 0.6 % Normal 0.2-2.0 [facility] Comment on above: Performed By: #### C BC ####[facility] [address] [address]DrJael Diggs EO # 0.4 103/ul Normal 0.0-0.7 [facility] Comment on above: Performed By: #### C BC ####[facility] [address] [id number] Diggs Eosinophils/100 WBC (Bld) 3.5 % Normal 0.9-7.0 [facility] Comment on above: Performed By: #### C BC ####[facility] [address] [id number] Diggs Erythrocyte distribution width (RBC) [Ratio] 15.4 % Critically high 11.0-15.0 [facility] Comment on above: Performed By: #### C BC ####[facility] [address] [id number] Diggs Hematocrit (Bld) [Volume fraction] 26.4 % Critically low 36.0-48.0 [facility] Comment on above: Performed By: #### C BC ####[facility] [address] [id number] Diggs Hemoglobin (Bld) [Mass/Vol] 8.4 g/dL Critically low 12.0-16.0 [facility] Comment on above: Performed By: #### C BC ####[facility] [address] [address]Dr. Benoit Diggs IG # 0.04 10e3/ul Critically high 0.00-0.03 [facility] Comment on above: Performed By: #### C BC ####[facility] [address] [address]Dr. Benoit Diggs IG % 0.4 % Normal 0.0-0.5 [facility] Comment on above: Performed By: #### C BC ####[facility] [address] [address]Dr. Benoit Diggs LYMPH # 2.8 103/ul Normal 1.2-3.8 [facility] Comment on above: Performed By: #### C BC ####[facility] [address] [address]Dr. Benoit Diggs Lymphocytes/100 WBC (Bld) 26.9 % Normal 20.5-60.0 [facility] Comment on above: Performed By: #### C BC ####[facility] [address] [address]DrJael Diggs MANUAL DIFF REQ NO Normal [facility] Comment on above: Performed By: #### C BC ####[facility] [address] [address]Dr. Benoit Diggs MCH (RBC) [Entitic mass] 24.7 pg Critically low 26.7-34.0 [facility] Comment on above: Performed By: #### C BC ####[facility] [address] [address]Dr. Benoit Diggs MCHC (RBC) [Mass/Vol] 31.8 g/dL Normal 29.9-35.2 [facility] Comment on above: Performed By: #### C BC ####[facility] [address] [address]Dr. Benoit Diggs MCV (RBC) [Entitic vol] 77.6 fL Critically low 81.0-99.0 [facility] Comment on above: Performed By: #### C BC ####[facility] [address] [id number]. Benoit Diggs MONO # 0.7 103/ul Normal 0.3-0.8 [facility] Comment on above: Performed By: #### C BC ####[facility] [address] [id number]. Benoit Diggs Monocytes/100 WBC (Bld) 6.2 % Normal 1.7-12.0 [facility] Comment on above: Performed By: #### C BC ####[facility] [address] [address]Dr. Benoit Diggs NEUT # 6.5 103/ul Normal 1.4-6.5 [facility] Comment on above: Performed By: #### C BC ####[facility] [address] [address]Dr. Benoit Diggs Neutrophils/100 WBC (Bld) 62.4 % Normal 43.0-75.0 [facility] Comment on above: Performed By: #### C BC ####[facility] [address] [address]Dr. Benoit Diggs Platelet mean volume (Bld) [Entitic vol] 11.0 fL Normal 9.5-13.5 [facility] Comment on above: Performed By: #### C BC ####[facility] [address] [id number]. Benoit Diggs PLT 215 103/ul Normal 150-450 [facility] Comment on above: Performed By: #### C BC ####[facility] [address] [id number]. Benoit Diggs RBC 3.40 106/ul Critically low 4.20-5.40 [facility] Comment on above: Performed By: #### C BC ####[facility] [address] [id number]. Benoit Diggs WBC 10.4 103/ul Normal 4.0-11.0 [facility] Comment on above: Performed By: #### C BC ####[facility] [address] [address]Dr. Benoit Diggs DRUG SCREEN RAPID (URINE)on 12-01-2022 AMP Negative Normal NEGATIVE [facility] Comment on above: Performed By: #### C BC #### [facility] [address] [address] [address] Benoit Diggs BAR Negative Normal NEGATIVE [facility] Comment on above: Performed By: #### C BC #### [facility] [address] [address] [address] Benoit Diggs BUP Negative Normal NEGATIVE [facility] Comment on above: Performed By: #### C BC #### [facility] [address] [address] [address] Benoit Diggs BZO Negative Normal NEGATIVE [facility] Comment on above: Performed By: #### C BC #### [facility] [address] [address] [address] Benoit Diggs JOSE MANUEL Negative Normal NEGATIVE [facility] Comment on above: Performed By: #### C BC #### [facility] [address] [address] [address] Benoit Diggs CUT-OFFS SEE BELOW Normal [facility] Comment on above: Result Comment: AMP (Amphetamine): [...] ng/mL Performed By: #### C BC #### [facility] [address] [address] [address] Benoit Diggs DRUG CUT HEADER DRUG CLASS TEST SYSTEM CUT-OFF CONCENTRATIONS ARE FOLLOWS: Normal [facility] Comment on above: Performed By: #### C BC #### [facility] [address] [address] [address] Benoit Diggs mAMP Negative Normal NEGATIVE [facility] Comment on above: Performed By: #### C BC #### [facility] [address] [place] [address] Dr. Benoit Diggs MTD Negative Normal NEGATIVE [facility] Comment on above: Performed By: #### C BC #### [facility] [address] [place] [address] Dr. Benoit Diggs OPI Negative Normal NEGATIVE [facility] Comment on above: Performed By: #### C BC #### [facility] [address] [place] [address] Dr. Benoit Diggs OXY Negative Normal NEGATIVE [facility] Comment on above: Performed By: #### C BC #### [facility] [address] [place] [address] Dr. Benoit Diggs PCP Negative Normal NEGATIVE [facility] Comment on above: Performed By: #### C BC #### [facility] [address] [place] [address] Dr. Benoit Diggs PPX Negative Normal NEGATIVE [facility] Comment on above: Performed By: #### C BC #### [facility] [address] [place] [address] Dr. Benoit Diggs TCA Negative Normal NEGATIVE [facility] Comment on above: Performed By: #### C BC #### [facility] [address] [place] [address] Dr. Benoit Diggs THC Negative Normal NEGATIVE [facility] Comment on above: Performed By: #### C BC #### [facility] [address] [place] [address] Dr. Benoit Diggs TYPE AND SCREENon 12-01-2022 TYPE AND SCREEN Negative Normal [facility] Comment on above: Performed By: #### T NS #### [facility] [address] [place] [address] Dr. Benoit Diggs UA (CLEAN/CATCH) CURRICULUM COUNSELOR/MICRO I F IND.on 12-01-2022 Bilirubin Ql (U) Negative Normal NEGATIVE [facility] Comment on above: Performed By: #### C BC #### [facility] [address] [place] [address] Dr. Benoit Diggs Clarity (U) CLEAR Normal CLEAR [facility] Comment on above: Performed By: #### C BC #### [facility] [address] [place] [address] Dr. Benoit Diggs Color (U) YELLOW Normal YELLOW [facility] Comment on above: Performed By: #### C BC #### [facility] [address] [place] [address] Dr. Benoit Diggs Glucose Ql (U) Negative Normal NEGATIVE [facility] Comment on above: Performed By: #### C BC #### [facility] [address] [place] [address] Dr. Benoit Diggs Hemoglobin Ql (U) Negative Normal NEGATIVE [facility] Comment on above: Performed By: #### C BC #### [facility] [address] [place] [address] Dr. Benoit Diggs Ketones Ql (U) Negative Normal NEGATIVE [facility] Comment on above: Performed By: #### C BC #### [facility] [address] [place] [address] Dr. Benoit Diggs LEUKOCYTES Negative Normal NEGATIVE [facility] Comment on above: Performed By: #### C BC #### [facility] [address] [place] [address] Dr. Benoit Diggs Nitrite Ql (U) Negative Normal NEGATIVE [facility] Comment on above: Performed By: #### C BC #### [facility] [address] [place] [address] Dr. Benoit Diggs pH (U) 6.0 [pH] Normal 5-9 [facility] Comment on above: Performed By: #### C BC #### [facility] [address] [place] [address] Dr. Benoit Diggs SPEC GRAVITY 1.010 Normal 1.005-<=1.025 [facility] Comment on above: Performed By: #### C BC #### [facility] [address] [place] [address] Dr. Benoit Diggs UA PROTEIN TRACE Normal NEGATIVE/ TRACE [facility] Comment on above: Performed By: #### C BC #### [facility] [address] [place] [address] Dr. Benoit Diggs UR MICRO IND NOT INDICATED Normal [facility] Comment on above: Performed By: #### C BC #### [facility] [address] [place] [address] Dr. Benoit Diggs Urobilinogen Qn (U) 4 {Nadege'U}/dL Abnormal 0.2 - 1.0 [facility] Comment on above: Performed By: #### C BC #### [facility] [address] [place] [address] Dr. Benoit Diggs CULTURE URINEon 11-29-2022 CULTURE URINE Culture Observations: MODERATE GROWTH OF MIXED GENITAL RIZWAN. NO POTENTIAL PATHOGENS SEEN. Normal [facility] Comment on above: Performed By: #### U RCX #### [facility] [address] [place] [address] Dr. Benoit Diggs UA (CLEAN/CATCH) CURRICULUM COUNSELOR/MICRO I F IND.on 11-29-2022 Bilirubin Ql (U) SMALL Abnormal NEGATIVE [facility] Comment on above: Performed By: #### C BC #### [facility] [address] [place] [address] Dr. Benoit Diggs Clarity (U) CLEAR Normal CLEAR [facility] Comment on above: Performed By: #### C BC #### [facility] [address] [place] [address] Dr. Benoit Diggs Color (U) DK. ORANGE Abnormal YELLOW [facility] Comment on above: Performed By: #### C BC #### [facility] [address] [place] [address] Dr. Benoit Diggs Glucose Ql (U) Negative Normal NEGATIVE [facility] Comment on above: Performed By: #### C BC #### [facility] [address] [place] [address] Dr. Benoit Diggs Hemoglobin Ql (U) Negative Normal NEGATIVE [facility] Comment on above: Performed By: #### C BC #### [facility] [address] [place] [address] Dr. Benoit Diggs Ketones Ql (U) TRACE Abnormal NEGATIVE [facility] Comment on above: Performed By: #### C BC #### [facility] [address] [place] [address] Dr. Benoit Diggs LEUKOCYTES SMALL Abnormal NEGATIVE [facility] Comment on above: Performed By: #### C BC #### [facility] [address] [place] [address] Dr. Benoit Diggs Nitrite Ql (U) Negative Normal NEGATIVE [facility] Comment on above: Performed By: #### C BC #### [facility] [address] [place] [address] Dr. Benoit Diggs pH (U) 5.5 [pH] Normal 5-9 [facility] Comment on above: Performed By: #### C BC #### [facility] [address] [place] [address] Dr. Benoit Diggs SPEC GRAVITY >=1.030 Abnormal 1.005-<=1.025 [facility] Comment on above: Performed By: #### C BC #### [facility] [address] [place] [address] Dr. Benoit Diggs UA PROTEIN 100 mg/dl Abnormal NEGATIVE/ TRACE [facility] Comment on above: Performed By: #### C BC #### [facility] [address] [place] [address] Dr. Benoit Diggs UR MICRO IND INDICATED Normal [facility] Comment on above: Performed By: #### C BC #### [facility] [address] [place] [address] Dr. Benoit Diggs Urobilinogen Qn (U) 8 {Nadege'U}/dL Abnormal 0.2 - 1.0 [facility] Comment on above: Performed By: #### C BC #### [facility] [address] [place] [address] Dr. Benoit Diggs URINE MICROSCOPIC ONLYon BACTERIA MODERATE Abnormal NONE SEEN [facility] Comment on above: Performed By: #### C BC #### [facility] [address] [place] [address] Dr. Benoit Diggs Bacteria identified Cx Nom (U) INDICATED Normal [facility] Comment on above: Performed By: #### C BC #### [facility] [address] [place] [address] Dr. Benoit Diggs CAST NONE SEEN Normal NONE SEEN [facility] Comment on above: Performed By: #### C BC #### [facility] [address] [place] [address] Dr. Benoit Diggs Crystals LM Nom (Urine sed) NONE SEEN Normal NONE SEEN [facility] Comment on above: Performed By: #### C BC #### [facility] [address] [place] [address] Dr. Benoit Diggs Epithelial cells LM Ql (Urine sed) MANY Abnormal NONE SEEN /RARE [facility] Comment on above: Performed By: #### C BC #### [facility] [address] [place] [address] Dr. Benoit Diggs MUCOUS SMALL Abnormal NONE SEEN [facility] Comment on above: Performed By: #### C BC #### [facility] [address] [place] [address] Dr. Benoit Diggs RBC 5-10 Abnormal 0-2 [facility] Comment on above: Performed By: #### C BC #### [facility] [address] [place] [address] Dr. Benoit Diggs WBC 20-50 Abnormal NONE SEEN [facility] Comment on above: Performed By: #### C BC #### [facility] [address] [place] [address] Dr. Benoit Diggs GROUP B STREP CULTUREon 10-22 S. agalactiae Ag Ql (Unsp spec) Culture Observations: NEGATIVE FOR GROUP B STREPTOCOCCUS. Normal [facility] Comment on above: Performed By: #### G BSCX #### [facility] [address] [place] [address] Dr. Benoit Diggs CBC AUTO DIFFon 09-22-2022 BASO # 0.0 103/ul Normal 0.0-0.1 [facility] Comment on above: Performed By: #### C BC #### [facility] [address] [place] [address] Dr. Benoit Diggs Basophils/100 WBC (Bld) 0.3 % Normal 0.2-2.0 [facility] Comment on above: Performed By: #### C BC #### [facility] [address] [place] [address] Dr. Benoit Diggs EO # 0.1 103/ul Normal 0.0-0.7 [facility] Comment on above: Performed By: #### C BC #### [facility] [address] [place] [address] Dr. Benoit Diggs Eosinophils/100 WBC (Bld) 2.0 % Normal 0.9-7.0 [facility] Comment on above: Performed By: #### C BC #### [facility] [address] [place] [address] Dr. Benoit Diggs Erythrocyte distribution width (RBC) [Ratio] 12.7 % Normal 11.0-15.0 [facility] Comment on above: Performed By: #### C BC #### [facility] [address] [place] [address] Dr. Benoit Diggs Hematocrit (Bld) [Volume fraction] 30.6 % Critically low 36.0-48.0 [facility] Comment on above: Performed By: #### C BC #### [facility] [address] [place] [address] Dr. Benoit Diggs Hemoglobin (Bld) [Mass/Vol] 10.1 g/dL Critically low 12.0-16.0 [facility] Comment on above: Performed By: #### C BC #### [facility] [address] [place] [address] Dr. Benoit Diggs IG # 0.03 10e3/ul Normal 0.00-0.03 [facility] Comment on above: Performed By: #### C BC #### [facility] [address] [place] [address] Dr. Benoit Diggs IG % 0.5 % Normal 0.0-0.5 [facility] Comment on above: Performed By: #### C BC #### [facility] [address] [place] [address] Dr. Benoit Diggs LYMPH # 0.6 103/ul Critically low 1.2-3.8 [facility] Comment on above: Performed By: #### C BC #### [facility] [address] [place] [address] Dr. Benoit Diggs Lymphocytes/100 WBC (Bld) 10.7 % Critically low 20.5-60.0 [facility] Comment on above: Performed By: #### C BC #### [facility] [address] [place] [address] Dr. Benoit Diggs MANUAL DIFF REQ NO Normal [facility] Comment on above: Performed By: #### C BC #### [facility] [address] [place] [address] Dr. Benoit Diggs MCH (RBC) [Entitic mass] 28.9 pg Normal 26.7-34.0 [facility] Comment on above: Performed By: #### C BC #### [facility] [address] [place] [address] Dr. Benoit Diggs MCHC (RBC) [Mass/Vol] 33.0 g/dL Normal 29.9-35.2 [facility] Comment on above: Performed By: #### C BC #### [facility] [address] [place] [address] Dr. Benoit Diggs MCV (RBC) [Entitic vol] 87.4 fL Normal 81.0-99.0 [facility] Comment on above: Performed By: #### C BC #### [facility] [address] [place] [address] Dr. Benoit Diggs MONO # 0.6 103/ul Normal 0.3-0.8 [facility] Comment on above: Performed By: #### C BC #### [facility] [address] [place] [address] Dr. Benoit Diggs Monocytes/100 WBC (Bld) 10.9 % Normal 1.7-12.0 [facility] Comment on above: Performed By: #### C BC #### [facility] [address] [address] [address] Benoit Diggs NEUT # 4.4 103/ul Normal 1.4-6.5 [facility] Comment on above: Performed By: #### C BC #### [facility] [address] [address] [address] Benoit Diggs Neutrophils/100 WBC (Bld) 75.6 % Critically high 43.0-75.0 [facility] Comment on above: Performed By: #### C BC #### [facility] [address] [address] [address] Benoit Diggs Platelet mean volume (Bld) [Entitic vol] 10.9 fL Normal 9.5-13.5 [facility] Comment on above: Performed By: #### C BC #### [facility] [address] [place] [address] Dr. Benoit Diggs PLT 191 103/ul Normal 150-450 [facility] Comment on above: Performed By: #### C BC #### [facility] [address] [place] [address] Dr. Benoit Diggs RBC 3.50 106/ul Critically low 4.20-5.40 [facility] Comment on above: Performed By: #### C BC #### [facility] [address] [place] [address] Dr. Benoit Diggs WBC 5.9 103/ul Normal 4.0-11.0 [facility] Comment on above: Performed By: #### C BC #### [facility] [address] [address] [address] Benoit Digsg CULTURE URINEon 09-22-2022 CULTURE URINE Culture Observations: HEAVY GROWTH OF MIXED GENITAL RIZWAN. NO POTENTIAL PATHOGENS SEEN. Normal [facility] Comment on above: Performed By: #### U RCX #### [facility] [address] [address] [address] Benoit Diggs ER URINE PROFILEon Bilirubin Ql (U) Negative Normal NEGATIVE [facility] Comment on above: Performed By: #### H IV12 #### [facility] [address] [address] [address] Benoti Diggs Clarity (U) CLEAR Normal CLEAR [facility] Comment on above: Performed By: #### H IV12 #### [facility] [address] [place] [address] Dr. Benoit Diggs Color (U) YELLOW Normal YELLOW [facility] Comment on above: Performed By: #### H IV12 #### [facility] [address] [place] [address] Dr. Benoit VELA A micrscopic examination will be performed if indicated. Normal [facility] Comment on above: Performed By: #### H IV12 #### [facility] [address] [place] [address] Dr. Benoit Diggs Glucose Ql (U) Negative Normal NEGATIVE [facility] Comment on above: Performed By: #### H IV12 #### [facility] [address] [place] [address] Dr. Benoit Diggs Hemoglobin Ql (U) Negative Normal NEGATIVE [facility] Comment on above: Performed By: #### H IV12 #### [facility] [address] [place] [address] Dr. Benoit Diggs Ketones Ql (U) 15 mg/dl Abnormal NEGATIVE [facility] Comment on above: Performed By: #### H IV12 #### [facility] [address] [place] [address] Dr. Benoit Diggs LEUKOCYTES Negative Normal NEGATIVE [facility] Comment on above: Performed By: #### H IV12 #### [facility] [address] [place] [address] Dr. Benoit Diggs Nitrite Ql (U) Negative Normal NEGATIVE [facility] Comment on above: Performed By: #### H IV12 #### [facility] [address] [place] [address] Dr. Benoit Diggs pH (U) 6.5 [pH] Normal 5-9 [facility] Comment on above: Performed By: #### H IV12 #### [facility] [address] [place] [address] Dr. Benoit Diggs SPEC GRAVITY 1.025 Normal 1.005-<=1.025 [facility] Comment on above: Performed By: #### H IV12 #### [facility] [address] [place] [address] Dr. Benoit Diggs UA PROTEIN TRACE Normal NEGATIVE/ TRACE [facility] Comment on above: Performed By: #### H IV12 #### [facility] [address] [place] [address] Dr. Benoit Diggs UR MICRO IND INDICATED Normal [facility] Comment on above: Performed By: #### H IV12 #### [facility] [address] [place] [address] Dr. Benoit Diggs Urobilinogen Qn (U) 1.0 {Nadege'U}/dL Normal 0.2 - 1. 0 [facility] Comment on above: Performed By: #### H IV12 #### [facility] [address] [place] [address] Dr. Benoit Diggs INFLUENZA A AND B AGon 09-22 INFLUANEGH SEE BELOW Normal [facility] Comment on above: Result Comment: Nega tive for Flu A protein angiten. Infection due to Flu A cannot be ruled out. Flu A angiten in the sample may be below the detection limit of the test. Performed By: #### H IV12 #### [facility] [address] [place] [address] Dr. Benoit Diggs INFLUBNEGH SEE BELOW Normal [facility] Comment on above: Result Comment: Nega tive for Flu B protein antigen. Infection due to Flu B cannot be ruled out. Flu B antigen in the sample may be below the detection limit of the test. Performed By: #### H IV12 #### [facility] [address] [place] [address] Dr. Benoit Diggs INFLUENZA A AG Negative Normal NEGATIVE SEE COMMENT [facility] Comment on above: Performed By: #### H IV12 #### [facility] [address] [place] [address] Dr. Benoit Diggs INFLUENZA B AG Negative Normal NEGATIVE SEE COMMENT [facility] Comment on above: Performed By: #### H IV12 #### [facility] [address] [address] [address] Benoit Diggs INTERNAL CONTROLS Within Normal Limits Normal Wi thin Normal Limits [facility] Comment on above: Performed By: #### H IV12 #### [facility] [address] [address] [address] Benoit Diggs PROF CHEM 8 (BAS METB)on Anion gap [Moles/Vol] 11.6 mmol/L Normal [facility] Comment on above: Performed By: #### C BC #### [facility] [address] [place] [address] Dr. Benoit Diggs Calcium [Mass/Vol] 8.2 mg/dL Critically low 8.5-10.1 [facility] Comment on above: Performed By: #### C BC #### [facility] [address] [place] [address] Dr. Benoit Diggs Chloride [Moles/Vol] 100 mmol/L Normal 98-107 [facility] Comment on above: Performed By: #### C BC #### [facility] [address] [place] [address] Dr. Benoit Diggs CO2 [Moles/Vol] 23.9 mmol/L Normal 21.0-32.0 [facility] Comment on above: Performed By: #### C BC #### [facility] [address] [place] [address] Dr. Beniot Diggs Creatinine [Mass/Vol] 0.48 mg/dL Critically low 0.55-1.02 [facility] Comment on above: Performed By: #### C BC #### [facility] [address] [place] [address] Dr. Benoit Diggs EGFR-AF DUTCH >60 Normal >=60 [facility] Comment on above: Performed By: #### C BC #### [facility] [address] [place] [address] Dr. Benoit Diggs EGFR-NON AF DUTCH >60 Normal >=60 [facility] Comment on above: Performed By: #### C BC #### [facility] [address] [address] [address] Benoit Diggs Glucose [Mass/Vol] 94 mg/dL Normal 74-106 [facility] Comment on above: Performed By: #### C BC #### [facility] [address] [address] [address] Benoit Diggs Potassium [Moles/Vol] 3.5 mmol/L Normal 3.5-5.1 [facility] Comment on above: Performed By: #### C BC #### [facility] [address] [address] [address] Benoit Diggs Sodium [Moles/Vol] 132 mmol/L Critically low 136-145 [facility] Comment on above: Performed By: #### C BC #### [facility] [address] [address] [address] Benoit Diggs Urea nitrogen [Mass/Vol] 6.0 mg/dL Critically low 7.0-18.0 [facility] Comment on above: Performed By: #### C BC #### [facility] [address] [address] [address] Benoit Diggs Urea nitrogen/Creatinine [Mass ratio] 12.5 mg/mg Normal [facility] Comment on above: Performed By: #### C BC #### [facility] [address] [address] [address] Benoit Diggs RESPIRATORY PANEL PLUSon Adenovirus Not detected Normal NOT DETECTED [facility] Comment on above: Performed By: #### R SPLUS ####[facility] [address] [address]Dr. Benoit Diggs B. Parapertusis Not detected Normal NOT DETECTED [facility] Comment on above: Performed By: #### R SPLUS ####[facility] [address] [id number]. Benoit Diggs B. Pertussis Not detected Normal NOT DETECTED [facility] Comment on above: Performed By: #### R SPLUS ####[facility] [address] [address]Dr. Benoit Diggs Chlamydia Pneumoniae Not detected Normal NOT DETECTED [facility] Comment on above: Performed By: #### R SPLUS ####[facility] [address] [place], [place] [address]Dr. Benoit Diggs Coronavirus 229E Not detected Normal NOT DETECTED [facility] Comment on above: Performed By: #### R SPLUS ####[facility] [address] [place], [place] [address]Dr. Benoit Diggs Coronavirus HKU1 Not detected Normal NOT DETECTED [facility] Comment on above: Performed By: #### R SPLUS ####[facility] [address] [place], [place] [address]Dr. Benoit Diggs Coronavirus NL63 Not detected Normal NOT DETECTED [facility] Comment on above: Performed By: #### R SPLUS ####[facility] [address] [place], [place] [address]Dr. Benoit [facility] Coronavirus OC43 Not detected Normal NOT DETECTED [facility] Comment on above: Performed By: #### R SPLUS ####[facility] [address] [place], [place] [address]Dr. Benoit Diggs Influenza A H1 2009 Detected Abnormal NOT DETECTED [facility] Comment on above: Performed By: #### R SPLUS ####[facility] [address] [place], [place] [address]Dr. Benoit Diggs Influenza A H3 Not detected Normal NOT DETECTED [facility] Comment on above: Performed By: #### R SPLUS ####[facility] [address] [place], [place] [address]Dr. Benoit Diggs Influenza B Not detected Normal NOT DETECTED [facility] Comment on above: Performed By: #### R SPLUS ####[facility] [address] [place], [place] [address]Dr. Benoit Diggs Metapneumovirus Not detected Normal NOT DETECTED [facility] Comment on above: Performed By: #### R SPLUS ####[facility] [address] [place], [place] [address]Dr. Benoit Diggs Mycoplas. Pneumoniae Not detected Normal NOT DETECTED [facility] Comment on above: Performed By: #### R SPLUS ####[facility] [address] [place], [place] [address]Dr. Karyaurora Diggs Parainfluenza 1 Not detected Normal NOT DETECTED [facility] Comment on above: Performed By: #### R SPLUS ####[facility] [address] [place], [place] [address]Dr. Benoit Diggs Parainfluenza 2 Not detected Normal NOT DETECTED [facility] Comment on above: Performed By: #### R SPLUS ####[facility] [address] [place], [place] [address]Dr. Benoit Diggs Parainfluenza 3 Not detected Normal NOT DETECTED [facility] Comment on above: Performed By: #### R SPLUS ####[facility] [address] [place], [place] [address]Dr. Benoit Diggs Parainfluenza 4 Not detected Normal NOT DETECTED [facility] Comment on above: Performed By: #### R SPLUS ####[facility] [address] [place], [place] [address]Dr. Benoit Diggs Rhino/Enterovirus Not detected Normal NOT DETECTED [facility] Comment on above: Performed By: #### R SPLUS ####[facility] [address] [place], [place] [address]Dr. Benoit Diggs RP2 Header 1 RESPIRATORY PANEL: VIRUSES Normal [facility] Comment on above: Performed By: #### R SPLUS ####[facility] [address] [place], [place] [address]Dr. Benoit Diggs RP2 Header 2 RESPIRATORY PANEL: BACTERIA Normal [facility] Comment on above: Performed By: #### R SPLUS ####[facility] [address] [place], [place] [address]Dr. Benoit Diggs RSV Not detected Normal NOT DETECTED [facility] Comment on above: Performed By: #### R SPLUS ####[facility] [address] [place], [place] [address]Dr. Benoit Diggs SARS-CoV-2 (COVID-19) RNA RANDOLPH+probe Ql (Unsp spec) Not detected Normal NOT DETECTED [facility] Comment on above: Performed By: #### R SPLUS ####[facility] [address] [place], [place] [address]YxDr. Benoit Diggs Result Comment: When diagnostic testing [...] for this test is supported by the [employer] Professor of Health and Human Service's declaration that [...] used). Performed By: #### H IV12 #### [facility] [address] [place] [address] Dr. Benoit Diggs URINE MICROSCOPIC ONLYon BACTERIA TRACE Abnormal NONE SEEN [facility] Comment on above: Performed By: #### H IV12 #### [facility] [address] [address] [address] Benoit Diggs Bacteria identified Cx Nom (U) INDICATED Normal [facility] Comment on above: Performed By: #### H IV12 #### [facility] [address] [address] [address] Benoit Diggs CAST NONE SEEN Normal NONE SEEN [facility] Comment on above: Performed By: #### H IV12 #### [facility] [address] [place] [address] Dr. Benoit Diggs Crystals LM Nom (Urine sed) NONE SEEN Normal NONE SEEN [facility] Comment on above: Performed By: #### H IV12 #### [facility] [address] [place] [address] Dr. Beniot Diggs Epithelial cells LM Ql (Urine sed) MODERATE Abnormal NONE SEEN /RARE [facility] Comment on above: Performed By: #### H IV12 #### [facility] [address] [place] [address] Dr. Benoit Diggs MUCOUS NONE SEEN Normal NONE SEEN [facility] Comment on above: Performed By: #### H IV12 #### [facility] [address] [place] [address] Dr. Benoit Diggs RBC 0-2 Normal 0-2 [facility] Comment on above: Performed By: #### H IV12 #### [facility] [address] [place] [address] Dr. Benoit Diggs WBC 5-10 Abnormal NONE SEEN [facility] Comment on above: Performed By: #### H IV12 #### [facility] [address] [place] [address] Dr. Benoit Diggs CBC AUTO DIFFon 09-09-2022 BASO # 0.1 103/ul Normal 0.0-0.1 [facility] Comment on above: Performed By: #### C BC #### [facility] [address] [place] [address] Dr. Benoit Diggs Basophils/100 WBC (Bld) 0.5 % Normal 0.2-2.0 [facility] Comment on above: Performed By: #### C BC #### [facility] [address] [place] [address] Dr. Benoit Diggs EO # 0.4 103/ul Normal 0.0-0.7 [facility] Comment on above: Performed By: #### C BC #### [facility] [address] [place] [address] Dr. Benoit Diggs Eosinophils/100 WBC (Bld) 4.1 % Normal 0.9-7.0 [facility] Comment on above: Performed By: #### C BC #### [facility] [address] [place] [address] Dr. Benoit Diggs Erythrocyte distribution width (RBC) [Ratio] 12.8 % Normal 11.0-15.0 [facility] Comment on above: Performed By: #### C BC #### [facility] [address] [address] [address] Benoit Diggs Hematocrit (Bld) [Volume fraction] 31.4 % Critically low 36.0-48.0 [facility] Comment on above: Performed By: #### C BC #### [facility] [address] [address] [address] Benoit Diggs Hemoglobin (Bld) [Mass/Vol] 10.5 g/dL Critically low 12.0-16.0 [facility] Comment on above: Performed By: #### C BC #### [facility] [address] [place] [address] Dr. Benoit Diggs IG # 0.05 10e3/ul Critically high 0.00-0.03 [facility] Comment on above: Performed By: #### C BC #### [facility] [address] [place] [address] Dr. Benoit Diggs IG % 0.5 % Normal 0.0-0.5 [facility] Comment on above: Performed By: #### C BC #### [facility] [address] [address] [address] Benoit Diggs LYMPH # 2.2 103/ul Normal 1.2-3.8 [facility] Comment on above: Performed By: #### C BC #### [facility] [address] [place] [address] Dr. Benoit Diggs Lymphocytes/100 WBC (Bld) 21.9 % Normal 20.5-60.0 [facility] Comment on above: Performed By: #### C BC #### [facility] [address] [place] [address] Dr. Benoit Diggs MANUAL DIFF REQ NO Normal [facility] Comment on above: Performed By: #### C BC #### [facility] [address] [place] [address] Dr. Benoit Diggs MCH (RBC) [Entitic mass] 29.7 pg Normal 26.7-34.0 [facility] Comment on above: Performed By: #### C BC #### [facility] [address] [address] [address] Benoit Diggs MCHC (RBC) [Mass/Vol] 33.4 g/dL Normal 29.9-35.2 [facility] Comment on above: Performed By: #### C BC #### [facility] [address] [address] [address] Benoit Diggs MCV (RBC) [Entitic vol] 89.0 fL Normal 81.0-99.0 [facility] Comment on above: Performed By: #### C BC #### [facility] [address] [address] [address] Benoit Diggs MONO # 0.6 103/ul Normal 0.3-0.8 [facility] Comment on above: Performed By: #### C BC #### [facility] [address] [place] [address] Dr. Benoit Diggs Monocytes/100 WBC (Bld) 5.7 % Normal 1.7-12.0 [facility] Comment on above: Performed By: #### C BC #### [facility] [address] [address] [address] Benoit Diggs NEUT # 6.8 103/ul Critically high 1.4-6.5 [facility] Comment on above: Performed By: #### C BC #### [facility] [address] [address] [address] Benoit Diggs Neutrophils/100 WBC (Bld) 67.3 % Normal 43.0-75.0 [facility] Comment on above: Performed By: #### C BC #### [facility] [address] [address] [address] Benoit Diggs Platelet mean volume (Bld) [Entitic vol] 11.0 fL Normal 9.5-13.5 [facility] Comment on above: Performed By: #### C BC #### [facility] [address] [address] [address] Benoit Diggs PLT 215 103/ul Normal 150-450 [facility] Comment on above: Performed By: #### C BC #### [facility] [address] [address] [address] Benoit Diggs RBC 3.53 106/ul Critically low 4.20-5.40 [facility] Comment on above: Performed By: #### C BC #### [facility] [address] [address] [address] Benoit Diggs WBC 10.2 103/ul Normal 4.0-11.0 [facility] Comment on above: Performed By: #### C BC #### [facility] [address] [address] [address] Benoit Diggs GLUCOSE - 1HRon 09-09-2022 Glucose [Mass/Vol] 116 mg/dL Critically high 74-106 T [facility] Comment on above: Performed By: #### G LU1HR ####[facility] [id number] [address]Dr. Benoit Diggs PAP ACOG PANEL 2: 21 to 29on 08-13-2022 . . Normal [facility] Comment on above: Performed By: #### C BC #### [facility] [address] [address] [address] Benoit Diggs Age Gdln ACOG Testing - [facility] Comment on above: Performed By: #### C BC #### [facility] [address] [address] [address] Benoit Diggs DIAGNOSIS: Comment [facility] Comment on above: Result Comment: NEGA TIVE FOR INTRAEPITHELIAL LESION OR MALIGNANCY. Performed By: #### C BC #### [facility] [address] [address] [address] Benoit Diggs Methodology: Comment [facility] Comment on above: Result Comment: This liquid based ThinPrep(R) pap test was screened with the use of an image guided system. Performed By: #### C BC #### [facility] [address] [address] [address] Benoit Diggs Note: Comment [facility] Comment on above: Result Comment: The Pap smear is a screening test designed to aid in the detection of premalignant and malignant conditions of the uterine cervix. It is not a diagnostic procedure and should not be used as the sole means of detecting cervical cancer. Both false-positive and false-negative reports do occur. . Performed By: #### C BC #### [facility] [address] [address] [address] Benoit Diggs Performed by: Comment Normal [facility] Comment on above: Result Comment: Cynthia Smith, Industrial Painter (ASCP) Performed By: #### C BC #### [facility] [address] [address] [address] Benoit Diggs Reflex Criteria: Comment Normal [facility] Comment on above: Result Comment: The HPV DNA reflex criteria were not met with this specimen result therefore, no HPV testing was performed. . Performed By: #### C BC #### [facility] [address] [place] [address] Dr. Benoit Diggs Specimen adequacy: Comment Normal [facility] Comment on above: Result Comment: Sati sfactory for evaluation. No endocervical component is identified. Performed By: #### C BC #### [facility] [address] [place] [address] Dr. Benoit Diggs CHLAMYDIA/GONOCOCCUS RANDOLPH (SW AB/URINE/PAPon 08-08-2022 Chlamydia trachomatis, RANDOLPH Negative Normal Negative [facility] Comment on above: Performed By: #### H IV12 #### [facility] [address] [place] [address] Dr. Benoit Diggs Neisseria gonorrhoeae, RANDOLPH Negative Normal Negative [facility] Comment on above: Performed By: #### H IV12 #### [facility] [address] [place] [address] Dr. Benoit Diggs US PREG INCOMPLETE ANATOMYon [...] MYLENE SULLIVAN Date: 2022-08-07 20:09 Normal [facility] US PREG ANATOMY SINGLEon US PREG [...] AISHWARYA MAGALLON Date: 2022-07-25 17:11 Normal [facility] AFP MATERNAL FOR SPINA BIFID Aon 07-17-2022 AFP MoM 0.55 Normal [facility] Comment on above: Performed By: #### H IV12 #### [facility] [address] [place] [address] Dr. Benoit Diggs AFP Value 20.0 ng/mL Normal [facility] Comment on above: Performed By: #### H IV12 #### [facility] [address] [address] [address] Benoit Diggs AFP, Serum for Spina Bifida Report Normal [facility] Comment on above: Performed By: #### H IV12 #### [facility] [address] [address] [address] Benoit Diggs Comment Comment Normal [facility] Comment on above: Result Comment: Ector Palafox, Ph.D., [facility] Director . References: Available Upon Request. . Multiples Of Median Cutoffs For AFP Elevations Caro 2.5 Black 2.8 IDD 2.0 Twins 4.5 Abbreviation Definitions IDD - Insulin Dep Diabetes OSBR - Open Spina Bifida Risk . For further inquiries contact [employer] at [phone]. . This test was developed and its performance characteristics determined by [employer]. It has not been cleared or approved by the Food and Drug Administration. Performed By: #### H IV12 #### [facility] [address] [address] [address] Benoit Davey Age Collection Date 18.1 weeks Normal [facility] Comment on above: Performed By: #### H IV12 #### [facility] [address] [address] [address] Benoit Diggs Gestat, Age Based on Ultrasound Normal [facility] Comment on above: Result Comment: 13:1 on 06/06/2022 Recalculations are not recommended when gestational dating by LMP and ultrasound are within 10 days. Performed By: #### H IV12 #### [facility] [address] [address] [address] Benoit Diggs Insulin Dep Diabetes No Normal [facility] Comment on above: Performed By: #### H IV12 #### [facility] [address] [address] [address] Benoit Diggs Interpretation Comment Normal [facility] Comment on above: Result Comment: Inte rpretation: [...] Customer Services to discuss available options. The [employer] recommends amniocentesis be offered to women age 35 and older. Performed By: #### H IV12 #### [facility] [address] [place] [address] Dr. Benoit Diggs [age] Normal [facility] Comment on above: Performed By: #### H IV12 #### [facility] [address] [place] [address] Dr. Benoit Diggs Multiple Gestation No Normal [facility] Comment on above: Performed By: #### H IV12 #### [facility] [address] [place] [address] Dr. Benoit Diggs OS[place] [address] Normal [facility] Comment on above: Performed By: #### H IV12 #### [facility] [address] [place] [address] Dr. Benoit Diggs PDF . Normal [facility] Comment on above: Performed By: #### H IV12 #### [facility] [address] [place] [address] Dr. Benoit Diggs Race Normal [facility] Comment on above: Performed By: #### H IV12 #### [facility] [address] [place] [address] Dr. Benoit Diggs Test Results: Negative Normal [facility] Comment on above: Performed By: #### H IV12 #### [facility] [address] [place] [address] Dr. Benoit Diggs HEP B SURFACE ANTIGEN SCREEN on 06-07-2022 HBsAg Screen Negative Normal Negative [facility] Comment on above: Performed By: #### H IV12 #### [facility] [address] [place] [address] Dr. Benoit Diggs HEPATITIS C VIRUS AB W/ REFL EX QUANTon 06-07-2022 HCV AB <0.1 Normal 0.0-0.9 [facility] Comment on above: Performed By: #### H IV12 #### [facility] [address] [address] [address] Benoit Diggs Interpretation: Comment Normal [facility] Comment on above: Result Comment: Nega tive Not infected with HCV, unless recent infection is suspected or other evidence exists to indicate HCV infection. Performed By: #### H IV12 #### [facility] [address] [address] [address] Benoit Diggs HIV 1 AND 2 WITH REFLEXon HIV Screen 4th Generation wRfx Non-Reactive Normal Non Reactive [facility] Comment on above: Result Comment: HIV Negative HIV-1/HIV-2 antibodies and HIV-1 p24 antigen were NOT detected. There is no laboratory evidence of HIV infection. Performed By: #### H IV12 #### [facility] [address] [address] [address] Benoit Diggs RPR QUANTon 06-07-2022 Rapid Plasma Reagin, Quant Non-Reactive Normal NonRea<1:1 [facility] Comment on above: Result Comment: Janene infante Note: This test does not meet current guidelines for screening and diagnosis of syphilis. This test is intended for following treatment response in patients being treated for syphilis infection. To screen for syphilis infection, a reflex cascade that includes both RPR and a treponema-specific assay should be utilized, such as Treponema pallidum (Syphilis) Screening [place] (489654) or Rapid Plasma Reagin (RPR) Test With Reflex to Quantitative RPR and Confirmatory Treponema pallidum Antibodies (921003). Performed By: #### H IV12 #### [facility] [address] [place] [address] Dr. Benoit Diggs RUBELLA AB IGGon 06-07-2022 Rubella Antibodies, IgG 3.22 index Normal Immune >0.99 [facility] Comment on above: Result Comment: Non- immune <0.90 Equivocal 0.90 - 0.99 Immune >0.99 Performed By: #### C BC #### [facility] [address] [address] [address] Benoit Diggs PREG <14 WKSon 06-07-2022 US PREG <14 [...] MYLENE SULLIVAN Date: 2022-06-06 22:25 Normal [facility] CBC AUTO DIFFon 06-06-2022 BASO # 0.1 103/ul Normal 0.0-0.1 [facility] Comment on above: Performed By: #### C BC #### [facility] [address] [address] [address] Benoit Diggs Basophils/100 WBC (Bld) 0.6 % Normal 0.2-2.0 [facility] Comment on above: Performed By: #### C BC #### [facility] [address] [address] [address] Benoit Diggs EO # 0.3 103/ul Normal 0.0-0.7 [facility] Comment on above: Performed By: #### C BC #### [facility] [address] [address] [address] Benoit Diggs Eosinophils/100 WBC (Bld) 4.1 % Normal 0.9-7.0 [facility] Comment on above: Performed By: #### C BC #### [facility] [address] [address] [address] Benoit Diggs Erythrocyte distribution width (RBC) [Ratio] 13.9 % Normal 11.0-15.0 [facility] Comment on above: Performed By: #### C BC #### [facility] [address] [place] [address] Dr. Benoit Diggs Hematocrit (Bld) [Volume fraction] 36.0 % Normal 36.0-48.0 [facility] Comment on above: Performed By: #### C BC #### [facility] [address] [place] [address] Dr. Benoit Diggs Hemoglobin (Bld) [Mass/Vol] 12.0 g/dL Normal 12.0-16.0 [facility] Comment on above: Performed By: #### C BC #### [facility] [address] [place] [address] Dr. Benoit Diggs IG # 0.03 10e3/ul Normal 0.00-0.03 [facility] Comment on above: Performed By: #### C BC #### [facility] [address] [place] [address] Dr. Benoit Diggs IG % 0.4 % Normal 0.0-0.5 [facility] Comment on above: Performed By: #### C BC #### [facility] [address] [place] [address] Dr. Benoit Diggs LYMPH # 2.7 103/ul Normal 1.2-3.8 [facility] Comment on above: Performed By: #### C BC #### [facility] [address] [place] [address] Dr. Benoit Diggs Lymphocytes/100 WBC (Bld) 33.2 % Normal 20.5-60.0 [facility] Comment on above: Performed By: #### C BC #### [facility] [address] [place] [address] Dr. Benoit Diggs MANUAL DIFF REQ NO Normal [facility] Comment on above: Performed By: #### C BC #### [facility] [address] [place] [address] Dr. Benoit Diggs MCH (RBC) [Entitic mass] 29.4 pg Normal 26.7-34.0 [facility] Comment on above: Performed By: #### C BC #### [facility] [address] [place] [address] Dr. Benoit Diggs MCHC (RBC) [Mass/Vol] 33.3 g/dL Normal 29.9-35.2 [facility] Comment on above: Performed By: #### C BC #### [facility] [address] [place] [address] Dr. Benoit Diggs MCV (RBC) [Entitic vol] 88.2 fL Normal 81.0-99.0 [facility] Comment on above: Performed By: #### C BC #### [facility] [address] [address] [address] Benoit Diggs MONO # 0.5 103/ul Normal 0.3-0.8 [facility] Comment on above: Performed By: #### C BC #### [facility] [address] [place] [address] Dr. Benoit Diggs Monocytes/100 WBC (Bld) 6.6 % Normal 1.7-12.0 [facility] Comment on above: Performed By: #### C BC #### [facility] [address] [place] [address] Dr. Benoit Diggs NEUT # 4.4 103/ul Normal 1.4-6.5 [facility] Comment on above: Performed By: #### C BC #### [facility] [address] [place] [address] Dr. Benoit Diggs Neutrophils/100 WBC (Bld) 55.1 % Normal 43.0-75.0 [facility] Comment on above: Performed By: #### C BC #### [facility] [address] [place] [address] Dr. Benoit Diggs Platelet mean volume (Bld) [Entitic vol] 11.0 fL Normal 9.5-13.5 [facility] Comment on above: Performed By: #### C BC #### [facility] [address] [place] [address] Dr. Benoit Diggs PLT 225 103/ul Normal 150-450 [facility] Comment on above: Performed By: #### C BC #### [facility] [address] [place] [address] Dr. Benoit Diggs RBC 4.08 106/ul Critically low 4.20-5.40 [facility] Comment on above: Performed By: #### C BC #### [facility] [address] [address] [address] Benoit Diggs WBC 8.1 103/ul Normal 4.0-11.0 [facility] Comment on above: Performed By: #### C BC #### [facility] [address] [id number] Benoit Diggs CULTURE URINEon 06-06-2022 CULTURE URINE Culture Observations: MODERATE GROWTH OF MIXED GENITAL RIZWAN. NO POTENTIAL PATHOGENS SEEN. Normal [facility] Comment on above: Performed By: #### U RCX ####[facility] [address] [address]. Benoit Diggs GLYCOHEMOGLOBIN A1Con 2021 ADA RECOMMENDATION SEE BELOW Normal [facility] Comment on above: Result Comment: ADA RECOMMENDED LIMIT 4.0 - 6.0 ADA THERAPEUTIC TARGET < 7.0 ACTION SUGGESTED > 7.0 Performed By: #### C BC #### [facility] [address] [place] [address] Dr. Benoit Diggs Glucose [Mass/Vol] 105 mg/dL Normal [facility] Comment on above: Performed By: #### C BC #### [facility] [address] [address] [address] Benoit Diggs HbA1c (Bld) [Mass fraction] 5.3 % Normal 4.5-6.2 [facility] Comment on above: Performed By: #### C BC #### [facility] [address] [address] [address] Benoit Diggs DAVID BOX TEST PT SEND OUTo n 06-06-2022 SENT TO REF LAB 06/06/2022 Normal [facility] Comment on above: Performed By: #### H IV12 #### [facility] [address] [place] [address] Dr. Benoit Diggs TYPE AND SCREENon 06-06-2022 TYPE AND SCREEN Negative Normal [facility] Comment on above: Performed By: #### T NS #### [facility] [address] [id number] Benoit Diggs PREG QUANT HCGon 04-16-2022 HCG QUANT 58756 mIU/mL Normal [facility] Comment on above: Performed By: #### C BC #### [facility] [address] [id number] Benoit Diggs HCG RANGE SEE BELOW Normal [facility] Comment on above: Result Comment: 5-50 0-1 WEEK 40-300 1-2 WEEKS 100-1,000 2-3 WEEKS 500-6,000 3-4 WEEKS 5,000-200,000 1-2 MONTHS 10,000-100,000 2-3 MONTHS 3,000-50,000 2ND TRIMESTER 1,000-50,000 3RD TRIMESTER Performed By: #### C BC #### [facility] [address] [id number] Benoit Diggs Vital Signs Date Time Vital Sign Value Performing Clinician Facility 06-07-2025 13:59-0400 Body mass index (BMI) [Ratio] 53.17 kg/m2 Jefferson Anita DO Work Phone: [facility] 06-07-2025 13:59-0400 Body weight 127.64 kg Jefferson [employer] Work Phone: [facility] 06-07-2025 13:59-0400 Diastolic blood pressure 68 mm[Hg] [email or web address] Work Phone: [facility] 06-07-2025 13:59-0400 Systolic blood pressure 108 mm[Hg] [employer]uel Work Phone: [facility] 05-05-2025 14:05-0400 Body mass index (BMI) [Ratio] 53.51 kg/m2 Anita Ob [facility] 05-05-2025 14:05-0400 Body weight 128.46 kg Anita Ob [facility] 05-05-2025 14:05-0400 Diastolic blood pressure 70 mm[Hg] Anita Ob [facility] 05-05-2025 14:05-0400 Systolic blood pressure 110 mm[Hg] Anita Ob [facility] 02-02-2025 10:44-0400 Body mass index (BMI) [Ratio] 52.91 kg/m2 Jefferson Anita DO Work Phone: [facility] 02-02-2025 10:44-0400 Body weight 127.01 kg Jefferson Anita DO Work Phone: [facility] 02-02-2025 10:44-0400 Diastolic blood pressure 74 mm[Hg] Jefferson Anita DO Work Phone: [facility] 02-02-2025 10:44-0400 Systolic blood pressure 112 mm[Hg] Jefferson Anita DO Work Phone: [facility] 01-17-2025 13:48-0400 Body mass index (BMI) [Ratio] 52.93 kg/m2 Jefferson Anita DO Work Phone: [facility] 01-17-2025 13:48-0400 Body weight 127.06 kg Jefferson Anita DO Work Phone: [facility] 01-17-2025 13:48-0400 Diastolic blood pressure 70 mm[Hg] Jefferson Anita DO Work Phone: [facility] 01-17-2025 13:48-0400 Systolic blood pressure 120 mm[Hg] Jefferson Anita DO Work Phone: [facility] 12-22-2024 10:54-0500 Body mass index (BMI) [Ratio] 52.93 kg/m2 Gia LYNN Work Phone: [facility] 12-22-2024 10:54-0500 Body weight 127.06 kg Gia LYNN Work Phone: [facility] 12-22-2024 10:54-0500 Diastolic blood pressure 90 mm[Hg] Gia LYNN Work Phone: [facility] 12-22-2024 10:54-0500 Systolic blood pressure 116 mm[Hg] Gia LYNN Work Phone: [facility] 12-02-2024 12:56-0500 Body mass index (BMI) [Ratio] 53.09 kg/m2 Jefferson Anita DO Work Phone: [facility] 12-02-2024 12:56-0500 Body weight 127.46 kg Jefferson Anita DO Work Phone: [facility] 12-02-2024 12:56-0500 Diastolic blood pressure 84 mm[Hg] Jefferson Anita DO Work Phone: [facility] 12-02-2024 12:56-0500 Systolic blood pressure 122 mm[Hg] Jefferson Anita DO Work Phone: [facility] 11-11-2024 08:42-0500 Body mass index (BMI) [Ratio] 53.55 kg/m2 Jefferson Anita DO Work Phone: [facility] 11-11-2024 08:42-0500 Body weight 128.55 kg Jefferson Anita DO Work Phone: [facility] 09-07-2024 14:06-0500 Diastolic blood pressure 71 mm[Hg] Manuel Noel MD Work Phone: [facility] 09-07-2024 14:06-0500 Heart rate 77 /min Manuel Noel MD Work Phone: [facility] 09-07-2024 14:06-0500 Respiratory rate 18 /min Manuel Noel MD Work Phone: [facility] 09-07-2024 14:06-0500 SaO2% (BldA) [Mass fraction] 98 % Manuel Noel MD Work Phone: [facility] 09-07-2024 14:06-0500 Systolic blood pressure 112 mm[Hg] Manuel Noel MD Work Phone: [facility] 09-07-2024 12:39-0500 Body height 154.94 cm Manuel Noel MD Work Phone: [facility] 09-07-2024 12:39-0500 Body weight 127 kg Manuel Noel MD Work Phone: [facility] 08-24-2024 [id number] Body height 154.94 cm Manuel Noel MD Work Phone: [facility] 08-24-2024 [id number] Body mass index (BMI) [Ratio] 53.4 kg/m2 Manuel Noel MD Work Phone: [facility] 08-24-2024 [id number] Body weight 128.16 kg Manuel Noel MD Work Phone: [facility] 07-17-2022 [id number] Body weight 100.[address] DOCTOR ATKINSON [facility] Comment on above: Performed By: #### HIV12 #### [facility] [address] [place] [address] Dr. Benoit Diggs Encounters Encounter Date Encounter Type Care Provider Facility Start: 06-07-2025 End: 06-07-2025 Bamboo flowsheet Jefferson Anita DO Work Phone: [facility] Start: 06-07-2025 End: 06-07-2025 Bamboo flowsheet Jefferson Anita DO Work Phone: [facility] Start: 06-07-2025 End: 06-07-2025 Office outpatient visit 15 minutes Jefferson Anita DO Work Phone: [facility] Comment on above: First trimester preg kodi (HHS-HCC); 11 weeks gestation of (HHS-HCC); Right ovarian cyst; Nausea; PCOS (polycystic ovarian syndrome) Start: 05-24-2025 End: 05-24-2025 Clinisync Result Encounter Jefferson Anita DO Work Phone: [facility] Unsolicited Start: 05-24-2025 End: 05-24-2025 Clinisync Result Encounter Jefferson Anita DO Work Phone: [facility] Unsolicited Start: 05-05-2025 End: 05-05-2025 Office outpatient visit 5 minutes Anita Nurse [facility] Comment on above: GA: 6w3d Start: 05-05-2025 End: 05-05-2025 ambulatory JEFFERSON ANITA Not Available Start: 04-14-2025 End: 04-14-2025 Emergency department patient visit [facility] Start: 02-09-2025 End: 02-09-2025 Clinisync Result Encounter [...] 01-17-2025 ambulatory Manuel Noel MD Work Phone: [facility] Work Phone: Start: 01-17-2025 End: 01-17-2025 Departed Referred Manuel Noel MD Work Phone: [facility] Start: 01-12-2025 End: 01-12-2025 ambulatory JEFFERSON ANITA Not Available Start: 01-03-2025 End: 01-03-2025 ambulatory Manuel Noel MD Work Phone: [facility] Work Phone: Start: 01-03-2025 End: 01-03-2025 Departed Referred Manuel Noel MD Work Phone: [facility] Start: 12-22-2024 End: 12-22-2024 Bamboo flowsheet Gia LYNN Work Phone: [facility] Start: 12-22-2024 End: 12-28-2024 Bamboo flowsheet Gia LYNN Work Phone: [facility] Start: 12-22-2024 End: 12-28-2024 Clinisync Result Encounter Generic External Data Provider [facility] Unsolicited Start: 12-22-2024 End: 12-22-2024 Patient encounter procedure Gia LYNN Work Phone: [facility] Start: 12-22-2024 End: 12-22-2024 Periodic preventive med est patient 18-39 yrs Gia LYNN Work Phone: [facility] Comment [...] Not Available Start: 11-30-2024 End: 11-30-2024 ambulatory JEFFERSON ANITA Not Available Start: 11-11-2024 End: 11-11-2024 Bamboo flowsheet Jefferson Anita DO Work Phone: [facility] Start: 11-11-2024 End: 11-11-2024 Bamboo flowsheet Jefferson Anita DO Work Phone: [facility] Start: 11-11-2024 End: 11-11-2024 Clinisync Result Encounter Generic External Data Provider [facility] Unsolicited Start: 11-11-2024 End: 11-11-2024 Office outpatient visit 15 minutes Jefferson Anita DO Work Phone: [facility] Comment on above: Right ovarian cyst; Nausea; PCOS (polycystic ovarian syndrome) Start: 11-11-2024 End: 11-11-2024 ambulatory JEFFERSON ANITA Not Available Start: 09-07-2024 Non-patient / Non-visit Manuel pelaez MD Work Phone: [facility] Work Phone: Start: 09-07-2024 End: 09-07-2024 Admission to same day surgery center Manuel Noel MD Work Phone: [facility] Work Phone: Start: 09-07-2024 End: 09-07-2024 ambulatory Manuel Noel MD Work Phone: [facility] Work Phone: Start: 08-28-2024 End: 08-28-2024 Emergency department patient visit [facility] Start: 08-24-2024 End: 08-24-2024 Patient encounter procedure Manuel Noel MD Work Phone: [facility] Work Phone: Start: 07-01-2024 End: 07-01-2024 Clinisync Result Encounter Generic External Data Provider [facility] External [facility] Unsolicited Start: 07-01-2024 End: 07-01-2024 Clinisync Result Encounter Generic External Data Provider [facility] External [facility] Unsolicited Start: 06-10-2024 Non-patient / Non-visit Manuel pelaez MD Work Phone: [facility] Work Phone: Start: 06-01-2024 End: 06-01-2024 ambulatory MANUEL NOEL Not Available Start: 03-02-2024 Patient encounter procedure Generic Provider [facility] Start: 12-23-2022 Encounter for genera l adult medical examination without abnormal findings DR MANUEL NOEL [facility] Start: 12-21-2022 End: 12-22-[address] MANUEL [...] Facility:[facility] Start: 09-09-2022 End: 09-10-[address] MANULE NOEL Facility:[facility] Start: 08-07-2022 End: 08-08-2022 ambulatory [...] Date Procedure Procedure Detail Performing Clinician Start: 05-24-2025 BOX TEST Jefferson Howard DO Work Phone: Start: 05-05-2025 End: 05-05-2025 Urnls dip stick/tablet rgnt non-auto w/o micrscp Jefferson Anita DO Work Phone: Start: 02-09-2025 ALL THYROID STIM HORMONE Jefferson Anita DO Work Phone: Start: 01-17-2025 Urnls dip stick/tablet rgnt non-auto w/o micrscp Jefferson Anita DO Work Phone: Start: 01-03-2025 Urine culture Manuel Noel MD Work Phone: Start: 12-22-2024 IGP,APTIMA HPV,AGE GDLN Gia LYNN Work Phone: Start: 12-02-2024 TELEPHONE DIRECTORY DELIVERER INSERTION/REMOVAL OF CONTRACEPTIVE CAPSULE Jefferson Anita DO Work Phone: Start: 11-11-2024 ALL CBC WITH AUTO DIFF Jefferson Anita DO Work Phone: Start: 09-07-2024 Esophagogastroduodenoscopy Manuel Noel MD Work Phone: Start: 07-01-2024 MHPT TRICHOMONAS/WET PREP Generic Supervisor Microwave al Data Provider Start: 12-03-2022 Transfusion of [...] Start: 08-02-2025 End: 08-02-2025 Patient encounter procedure [facility] Start: 06-20-2025 Influenza vaccination [facility] Start: 06-07-2025 End: 06-07-2025 Patient encounter procedure [facility] Comment on above: Arrived Start: 05-05-2025 End: 05-05-2026 ABO/Rh ABO/Rh Lab Routine Missed menses , unspecified gestational age ([facility]) Expected: 05/05/2025 (Approximate), Expires: 05/05/2026 [facility] Comment on above: Expected: 05/05/2025 (Approximate), Expires: 05/05/2026 Start: 05-05-2025 End: 05-05-2026 Blood type and Indirect antibody screen panel - Blood Type and screen Lab Routine Missed menses , unspecified gestational age ([facility]) Expected: 05/05/2025 (Approximate), Expires: 05/05/2026 [facility] Work Phone: Comment on above: Expected: 05/05/2025 (Approximate), Expires: 05/05/2026 Start: 05-05-2025 End: 05-05-2026 Drugs of abuse panel - Urine by Screen method Rapid drug screen, urine Lab Routine , unspecified gestational age ([facility]) Encounter for supervision of normal first in first trimester ([facility]) Expected: 05/05/2025 (Approximate), Expires: 05/05/2026 [facility] Comment on above: Expected: 05/05/2025 (Approximate), Expires: 05/05/2026 Start: 05-05-2025 End: 05-05-2026 Thyrotropin [Units/volume] in Serum or Plasma TSH Lab Routine Thyroid disease Expected: 05/05/2025 (Approximate), Expires: 05/05/2026 [facility] Comment on above: Expected: 05/05/2025 (Approximate), Expires: 05/05/2026 Start: 02-02-2025 End: 02-02-2025 Patient encounter procedure [facility] Comment on above: Arrived Start: 01-17-2025 End: 01-17-2026 Colposcopy Colposcopy Procedures Routine LGSIL of cervix of undetermined significance Expected: 01/17/2025 (Approximate), Expires: 01/17/2026 [facility] Work Phone: Comment on above: Expected: 01/17/2025 (Approximate), Expires: 01/17/2026 Start: 01-12-2025 End: 01-12-2025 Professional / ancillary services management 01/12/2025 1:00 PM EDT Ancillary Procedure [facility] [address] [place] [address] [place] [phone] [facility] Start: 01-03-2025 Bacteria identified in Urine by Culture Urine Culture [facility] Start: 01-03-2025 Urine culture [facility] Start: 12-22-2024 End: 12-22-2025 US Pelvis US Pelvis w/ TV Imaging Routine Pelvic pain in female Expected: 12/22/2024, Expires: 12/22/2025 [facility] Comment on above: Expected: 12/22/2024 , Expires: 12/22/2025 Start: 12-22-2024 End: 12-22-2024 Patient encounter procedure [facility] Comment on above: Arrived Start: 12-02-2024 End: 12-02-2024 Patient encounter procedure 12/02/2024 9:30 AM EST Procedure Visit [facility] [address] [place] [id number] Jefferson Howard DO [facility] [place] [address] [facility] Start: 11-30-2024 End: 11-30-2024 Professional / ancillary services management 11/30/2024 2:00 PM EST Ancillary Procedure [facility] [address] [place] [phone] [facility] Start: 11-11-2024 End: 11-11-2025 DHEA [...] EST Office Visit [facility] [address] [facility] [place] [address] Jefferson Howard, [address] [place] [address] Arrived [facility] Comment on above: Arrived Start: 09-07-2024 [facility] Start: 06-20-2024 Influenza vaccination Influenza Vacc ine (#1) [facility] Bacteria identified in Urine by Culture Urine culture Microbiology Routine Missed menses Ordered: 05/05/2025 [facility] Comment on above: Ordered: 05/05/2025 CBC W Auto Different ial panel - Blood CBC and differential Lab Routine Right ovarian cyst PCOS (polycystic ovarian syndrome) Ordered: 11/11/2024 [facility] Comment on above: Ordered: 11/11/2024 CBC W Auto Different ial panel - Blood CBC and differential Lab Routine Missed menses , unspecified gestational age ([facility]) Ordered: 05/05/2025 [facility] Comment on above: Ordered: 05/05/2025 Cytology Cervical or vaginal smear or scraping study Pap Smear Pathology and Cytology Routine Well woman exam with routine gynecological exam Ordered: 12/22/2024 [facility] Work Phone: Comment on above: Ordered: 12/22/2024 DHEA-sulfate DHEA-sulfate Lab Routine Right ovarian cyst PCOS (polycystic ovarian syndrome) Ordered: 11/11/2024 [facility] Comment on above: Ordered: 11/11/2024 Follicle stimulating hormone Follicle stimulating hormone Lab Routine Right ovarian cyst PCOS (polycystic ovarian syndrome) Ordered: 11/11/2024 [facility] Comment on above: Ordered: 11/11/2024 hCG, quantitative, hCG, quantitative, Lab Routine Right ovarian cyst PCOS (polycystic ovarian syndrome) Ordered: 11/11/2024 [facility] Work Phone: Comment on above: Ordered: 11/11/2024 Hemoglobin A1c/Hemoglobin.total in Blood Hemoglobin A1c Lab Routine Right ovarian cyst PCOS (polycystic ovarian syndrome) Ordered: 11/11/2024 [facility] Comment on above: Ordered: 11/11/2024 Hemoglobin A1c/Hemoglobin.total in Blood Hemoglobin A1c Lab Routine Missed menses , unspecified gestational age ([facility]) Ordered: 05/05/2025 [facility] Comment on above: Ordered: 05/05/2025 Hepatitis B virus surface Ag [Presence] in Serum or Plasma by Immunoassay Hepatitis B surface antigen Lab Routine Missed menses , unspecified gestational age ([facility]) Ordered: 05/05/2025 [facility] Comment on above: Ordered: 05/05/2025 Hepatitis C virus Ab [Presence] in Serum or Plasma by Immunoassay Hepatitis C antibody Lab Routine Missed menses , unspecified gestational age ([facility]) Ordered: 05/05/2025 [facility] Comment on above: Ordered: 05/05/2025 HIV-1/HIV-2 antigen/antibody combination immunoassay HIV-1 and HIV-2 antibodies Lab Routine Missed menses , unspecified gestational age ([facility]) Ordered: 05/05/2025 [facility] Comment on above: Ordered: 05/05/2025 Luteinizing hormone Luteinizing hormone Lab Routine Right ovarian cyst PCOS (polycystic ovarian syndrome) Ordered: 11/11/2024 [facility] Comment on above: Ordered: 11/11/2024 Patient Education Esophagitis Kn [facility] Work Phone: Prolactin Prolactin Lab Ro utine Right ovarian cyst PCOS (polycystic ovarian syndrome) Ordered: 11/11/2024 [facility] Comment on above: Ordered: 11/11/2024 Reagin Ab [Presence] in Serum by RPR RPR Lab Routine Missed menses , unspecified gestational age ([facility]) Ordered: 05/05/2025 [facility] Comment on above: Ordered: 05/05/2025 Removal non-biodegradable drug delivery implant Remove drug implant device Procedures Routine Encounter for removal of etonogestrel implant Ordered: 12/02/2024 [facility] Work Phone: Comment on above: Ordered: 12/02/2024 Rubella antibody, IgG Rubella an tibody, IgG Lab Routine Missed menses , unspecified gestational age ([facility]) Ordered: 05/05/2025 [facility] Comment on above: Ordered: 05/05/2025 Thyrotropin [Units/volume] in Serum or Plasma TSH Lab Routine Right ovarian cyst PCOS (polycystic ovarian syndrome) Ordered: 11/11/2024 [facility] Comment on above: Ordered: 11/11/2024 Thyrotropin [Units/volume] in Serum or Plasma TSH Lab Routine Elevated TSH Ordered: 02/02/2025 [facility] Work Phone: Comment on above: Ordered: 02/02/2025 Thyroxine (T4) free [Mass/volume] in Serum or Plasma T4, free Lab Routine Right ovarian cyst PCOS (polycystic ovarian syndrome) Ordered: 11/11/2024 [facility] Comment on above: Ordered: 11/11/2024 Thyroxine (T4) free [Mass/volume] in Serum or Plasma T4, free Lab Routine Elevated TSH Ordered: 02/02/2025 [facility] Comment on above: Ordered: 02/02/2025 Payers Date Payer Category Payer Medicaid [id number] 2021 Medicaid (Managed Care) [employer] [id number] 2000 Unknown [id number] 2.16.840.1.397800.3.579.2. 593 2000 Unknown [id number] 2.16.840.1.812321.3.579.2. 593 2000 Unknown [id number] 2.16.840.1.348353.3.579.2. 593 2000 Unknown [id number] 2.16.840.1.408275.3.579.2. 593 2000 Unknown [id number] 2.16.840.1.916041.3.579.2. 593 2000 Unknown [id number] 2.16.840.1.695640.3.579.2. 593 2000 Unknown [id number] 2.16.840.1.097012.3.579.2. 593 2000 Unknown [id number] 2.16.840.1.353827.3.579.2. 593 2000 Unknown [id number] 2.16.840.1.011096.3.579.2. 593 2000 Unknown [id number] 2.16.840.1.012474.3.579.2. 593 2000 Unknown [id number] 2.16.840.1.650267.3.579.2. 593 2000 Unknown [id number] 2.16.840.1.297503.3.579.2. 593 2000 Unknown [id number] 2.16.840.1.737759.3.579.2. 593 2000 Unknown [id number] 2.16.840.1.754801.3.579.2. 593 2000 Unknown [id number] 2.16.840.1.532584.3.579.2. 1286 2000 Unknown [id number] 2.16.840.1.327865.3.579.2. 1286 2000 Unknown [id number] 2.16.840.1.669043.3.579.2. 1259 2000 Unknown [id number] 2.16.840.1.911113.3.579.2. 1259 2000 Unknown [id number] 2.16.840.1.762204.3.579.2. 1259 2000 Unknown [id number] 2.16.840.1.584077.3.579.2. 1259 2000 Unknown [id number] 2.16.840.1.288952.3.579.2. 1259 2000 Unknown [id number] 2.16.840.1.585027.3.579.2. 1259 2000 Unknown [id number] 2.16.840.1.853070.3.579.2. 1259 2000 Unknown [id number] 2.16.840.1.610506.3.579.2. 1259 2000 Unknown [id number] 2.16.840.1.709865.3.579.2. 1259 2000 Unknown [id number] 2.16.840.1.059547.3.579.2. 1259 1959 Self-pay 1959 Unknown [id number] Unknown [id number] 2.16.840.1.178357.3.579.2. 593 Unknown [id number] 2.16.840.1.723813.3.579.2. 531 Unknown [id number] 2.16.840.1.543804.3.579.2. 531 Unknown [id number] 2.16.840.1.632437.3.579.2. 531 Social History Date Type Detail Facility Start: 03-02-2024 End: 09-07-2024 Tobacco smoking status NHIS Never smoked tobacco (finding) [facility] Start: 09-07-2024 Sex Patient sex un known (finding) [facility] Start: 2000 Sex Assigned At Female [facility] Start: 03-02-2024 Tobacco use and exposure Smoke less tobacco non-user [facility] Start: 03-02-2024 End: 11-11-2024 History of Social function [facility] Start: 03-02-2024 End: 11-11-2024 Social connection and isolation panel [facility] [...] Start: 01-04-2025 End: 01-19-2025 Sex Female (finding) [facility] Start: 04-04-2025 [facility] Procedure Code Equipment Code Equipment Origin al Text Equipment Identifier Dates ERCP (endoscopic retrograde cholangiopancreatog rancho) STENT PANCREATIC ZIMMON 4FR FDA Start: 11-20-2017 ERCP (endoscopic retrograde cholangiopancreatog rancho) STENT PANCREATIC ZIMMON 4FR FDA Start: 11-20-2017 ERCP (endoscopic retrograde cholangiopancreatog rancho) STENT PANCREATIC ZIMMON 4FR FDA Start: 11-20-2017 Goals Date Patient Goal Desired Activity /State Clinical Notes 08-24-2024 to 06-07-2025 Shelley Dang, TREATMENT COUNSELOR - 06/07/2025 1:50 PM Felix Correa LPN - 05/05/2025 2:00 PM Yary Dang, TREATMENT COUNSELOR - 02/02/2025 11:10 AM Shon Howard DO - 01/17/2025 1:30 PM EDT Note Date & Type Note Facility 06-07-2025 History of Presen t illness Narrative Reason [...] esophagitis 03/02/2024 Mild intermittent asthma without complication ([facility]) 03/02/2024 Allergic rhinitis due to pollen 03/02/2024 Morbid obesity due to excess calories ([facility]) 03/02/2024 Annual physical exam 03/02/2024 Amenorrhea 04/28/2024 [...] nursing note reviewed. Exam conducted with a city manager present. Vitals: Estimated body mass index is 53.17 kg/m as calculated from the following: Height as of 06/01/24: 5' 1 . Weight as of this encounter: 281 lb 6.4 oz. BP: 108/68 Patient's last menstrual period was 03/08/2025. ASSESSMENT & PLAN ICD-10-CM 1. First trimester ([facility]) Z34.91 2. 11 weeks gestation of ([facility]) Z3A.11 3. Right ovarian cyst N83.201 ondansetron [...] or undercooked meat, and stay away from [facility]. Patient has been consulted regarding any further do's and don'ts of . Patient voiced understanding and all questions and concerns were answered. No orders of the defined types were placed in this encounter. Follow Up: Patient is to return in 4 weeks for routine OB appointment. Documented by Shelley Dang LPN on behalf of: Jefferson Howard DO documented in this encounter [facility] 05-05-2025 History of Presen t illness Narrative Reason for Appointment: Patient ID: Jes Malik is a 24 y.o. female who presents for Amenorrhea Patient presents today for a Nurse OB Intake appointment. Patient is 6w3d with a Estimated Date of Delivery: 12/26/25 OB History Para Term AB Living 2 SAB IAB Ectopic Multiple Live Births # Outcome Date GA Lbr Rinku/2nd Weight Sex Type Anes PTL Lv 2 Current 1 Term 07/11/21 6 lb 12 oz M Vag-Spont Current Medications: has a current medication list which includes the following prescription(s): ondansetron and omeprazole. Medical History: Active Ambulatory Problems Diagnosis Date Noted Major depressive disorder, recurrent episode, mild 03/02/2024 Gastroesophageal reflux disease without esophagitis 03/02/2024 Mild intermittent asthma without complication (HCC) 03/02/2024 Allergic rhinitis due to pollen 03/02/2024 Morbid obesity due to excess calories ([facility]) 03/02/2024 Annual physical exam 03/02/2024 Amenorrhea 04/28/2024 Right sided sciatica 06/01/2024 Resolved Ambulatory Problems Diagnosis Date Noted Generalized abdominal pain 03/02/2024 No Additional Past Medical History No family history on file. Social History Tobacco Use Smoking status: Never Smokeless tobacco: Never Substance Use Topics Alcohol use: Not on file Drug use: Not on file Past Surgical History: Procedure Laterality Date GALLBLADDER Allergies Allergen Reactions Penicillins Unknown Vitals: Estimated body mass index is 53.51 kg/m as calculated from the following: Height as of 06/01/24: 5' 1 . Weight as of this encounter: 283 lb 3.2 oz. BP: 110/70 Patient's last menstrual period was 03/08/2025. Assessment/Plan Diagnoses and all orders for this visit: Missed menses - Type and screen; Future - ABO/Rh; Future - CBC and differential - Hemoglobin A1c - RPR - Rubella antibody, IgG - Hepatitis B surface antigen - Hepatitis C antibody - HIV-1 and HIV-2 antibodies - Urine culture - POCT , urine manually resulted - POCT urinalysis dipstick manually resulted , unspecified gestational age ([facility]) - Type and screen; Future - ABO/Rh; Future - CBC and differential - Hemoglobin A1c - RPR - Rubella antibody, IgG - Hepatitis B surface antigen - Hepatitis C antibody - HIV-1 and HIV-2 antibodies - Rapid drug screen, urine; Future Encounter for supervision of normal first in first trimester ([facility]) - Rapid drug screen, urine; Future Right ovarian cyst - ondansetron (Zofran) 4 MG tablet; Take 1 tablet (4 mg) by mouth every 6 (six) hours if needed for nausea or vomiting for up to 30 doses Take 1 tablet by mouth every 6 hours as needed for nausea. Nausea - ondansetron (Zofran) 4 MG tablet; Take 1 tablet (4 mg) by mouth every 6 (six) hours if needed for nausea or vomiting for up to 30 doses Take 1 tablet by mouth every 6 hours as needed for nausea. PCOS (polycystic ovarian syndrome) - ondansetron (Zofran) 4 MG tablet; Take 1 tablet (4 mg) by mouth every 6 (six) hours if needed for nausea or vomiting for up to 30 doses Take 1 tablet by mouth every 6 hours as needed for nausea. Gastroesophageal reflux disease, unspecified whether esophagitis present - omeprazole (PriLOSEC) [address] capsule; Take 1 capsule (40 mg) by mouth in the morning and 1 capsule (40 mg) in the evening. Take before meals. Thyroid disease - TSH; Future Nurse Note: OB Intake: Patient presents today for first OB visit. Patients history has been reviewed in great detail including any potential risks. Patient signed consent forms and patient desires testing in both trimesters. Patient currently has no complaints and has been advised to drink 6-8 glasses of water a day, eat no raw or undercooked meat, and stay away from [facility]. Patient has also been advised to not change litter boxes and eat 6 small meals a day. Patient has been consulted regarding the do's and don'ts of . Patient was given labs and all questions and concerns were answered. [place] and Thyroid given to patient to have obtained with initial labs at 9 weeks. Medication sent in for patient. Follow Up: Patient is to return in 4 weeks for routine OB appointment. Follow Up: Patient is to have labs drawn at directed and return to office for initial OB appointment with provider. Patient may call office as needed with any concerns or questions. Nurse Visit Completed by: Gayatri Correa LPN documented in this encounter [facility] 02-02-2025 History of Presen t illness Narrative [...] Major depressive disorder, recurrent episode, mild (HCC) ([facility]) 03/02/2024 Gastroesophageal reflux disease without esophagitis 03/02/2024 Mild intermittent asthma without complication ([facility]) 03/02/2024 Allergic rhinitis due to pollen 03/02/2024 Morbid obesity due to excess calories ([facility]) 03/02/2024 Annual physical exam 03/02/2024 Amenorrhea 04/28/2024 [...] nursing note reviewed. Exam conducted with a city manager present. Vitals: Estimated body mass index is [...] Jefferson Howard DO documented in this encounter [facility] 01-17-2025 History of Presen t illness Narrative [...] nursing note reviewed. Exam conducted with a city manager present. Vitals: Estimated body mass index is [...] Jefferson Howard DO documented in this encounter [facility] 12-22-2024 History of Presen t illness Narrative [...] Major depressive disorder, recurrent episode, mild (HCC) ([facility]) 03/02/2024 Gastroesophageal reflux disease without esophagitis 03/02/2024 Mild intermittent asthma without complication ([facility]) 03/02/2024 Allergic rhinitis due to pollen 03/02/2024 Morbid obesity due to excess calories ([facility]) 03/02/2024 Annual physical exam 03/02/2024 Amenorrhea 04/28/2024 [...] nursing note reviewed. Exam conducted with a city manager present. Vitals: Estimated body mass index is [...] of: LEAH Curran documented in this encounter [facility] 12-02-2024 History of Presen t illness Narrative [...] nursing note reviewed. Exam conducted with a city manager present. Vitals: Estimated body mass index is [...] Jefferson Howard DO documented in this encounter [facility] 11-11-2024 History of Presen t illness Narrative [...] Noted Major depressive disorder, recurrent episode, mild ([facility]) ([facility]) 03/02/2024 Gastroesophageal reflux disease without esophagitis 03/02/2024 Mild intermittent asthma without complication ([facility]) 03/02/2024 Allergic rhinitis due to pollen 03/02/2024 Morbid obesity due to excess calories ([facility]) 03/02/2024 Annual physical exam 03/02/2024 Amenorrhea 04/28/2024 [...] nursing note reviewed. Exam conducted with a city manager present. Vitals: Estimated body mass index is [...] Jefferson Howard DO documented in this encounter [facility] 09-07-2024 Procedure note [facility] 08-24-2024 Evaluation note Diagnosis Onset Date Resolution Dyspepsia acute August 24, 2024 9:29am Nausea acute August 24, 2024 9:29am Chronic GERD chronic August 9:29am Constipation chronic August 9:29am [facility] Work Phone: Evaluation note* Diagnosis Gastroesophageal [...] syndrome) Polycystic ovaries documented in this encounter [facility]* Diagnosis Gastroesophageal reflux disease without [...] of etonogestrel implant documented in this encounter [facility]* Diagnosis Gastroesophageal reflux disease without [...] female genital organs documented in this encounter [facility] noteNo assessment [facility] Work Phone: Evaluation note* Diagnosis Gastroesophageal reflux [...] of undetermined significance documented in this encounter [facility]* Diagnosis Gastroesophageal reflux disease without esophagitis- Primary Esophageal reflux Amenorrhea Absence of menstruation Generalized abdominal pain Abdominal pain, generalized Morbid (severe) obesity due to excess calories (CMS/HCC) Body mass index (BMI) 50.0-59.9, adult [place] Right sided sciatica- Primary Sciatica Gastroesophageal reflux disease without esophagitis Esophageal reflux Major depressive disorder, recurrent episode, mild (HCC) ([facility] Major depressive disorder, recurrent episode, mild Morbid obesity due to excess calories ([facility] Encounter to discuss test results Other specified counseling Elevated TSH Other abnormal blood chemistry documented in this encounter [facility]* Diagnosis Gastroesophageal reflux disease without esophagitis- Primary Esophageal reflux Amenorrhea Absence of menstruation Generalized abdominal pain Abdominal pain, generalized Morbid (severe) obesity due to excess calories ([facility] Body mass index (BMI) 50.0-59.9, adult ([facility]) Right sided sciatica- Primary Sciatica Gastroesophageal reflux disease without esophagitis Esophageal reflux Major depressive disorder, recurrent episode, mild Major depressive disorder, recurrent episode, mild Morbid obesity due to excess calories ([facility]) Missed menses , unspecified gestational age ([facility]) Encounter for supervision of normal first in first trimester ([facility]) Right ovarian cyst Other and unspecified ovarian cyst Nausea Nausea alone PCOS (polycystic ovarian syndrome) Polycystic ovaries Gastroesophageal reflux disease, unspecified whether esophagitis present Thyroid disease Unspecified disorder of thyroid documented in this encounter [facility]* Diagnosis Gastroesophageal reflux disease without esophagitis- Primary Esophageal reflux Amenorrhea Absence of menstruation Generalized abdominal pain Abdominal pain, generalized Morbid (severe) obesity due to excess calories ([facility]) Body mass index (BMI) 50.0-59.9, adult ([facility]) Right sided sciatica- Primary Sciatica Gastroesophageal reflux disease without esophagitis Esophageal reflux Major depressive disorder, recurrent episode, mild Major depressive disorder, recurrent episode, mild Morbid obesity due to excess calories ([facility]) First trimester ([facility]) state, incidental 11 weeks gestation of ([facility]) Right ovarian cyst Other and unspecified ovarian cyst Nausea Nausea alone PCOS (polycystic ovarian syndrome) Polycystic ovaries documented in this encounter [facility] Summary Purpose Family History Relationship Condition [...] and content) DATE CREATED AUTHOR 12/24/2022 [facility] DATE CREATED AUTHOR AUTHOR'S ORGANIZ ATION 01/19/2025 [facility] DATE CREATED AUTHOR AUTHOR'S ORGANIZ ATION 04/15/2025 [facility] DATE CREATED AUTHOR AUTHOR'S ORGANIZ ATION 05/09/2025 [facility] EPIC Care Teams (unrecognized sec tion and content) [...] Other Provider Active Start: September 07, 2024 Wood Mill Supervisor Relationship Specialty Start Date End Date Manuel Noel MD [address] [place] [address] PCP - [facility] 03/02/24 Wood Mill Supervisor Relationship Specialty Start Date End Date Manuel Noel MD [address] [place] [address] PCP [facility] 03/02/24 Manuel Noel MD [address] [place] [address] [facility] 07/20/24 Wood Mill Supervisor Relationship Specialty Start Date End Date Manuel Noel MD [address] [place] [address] [facility] 03/02/24 Manuel Noel MD [address] [place] [address] [facility] 07/20/24 Wood Mill Supervisor Relationship Specialty Start Date End Date Manuel Noel MD [address] [place] [address] [facility] 03/02/24 Manuel Noel MD [address] [place] [address] [facility] 07/20/24 Wood Mill Supervisor Relationship Specialty Start Date End Date Manuel Noel MD [address] [place] [address] [facility] 03/02/24 Manuel Noel MD [address] [place] [address] [facility] 07/20/24 Wood Mill Supervisor Relationship Specialty Start Date End Date Manuel Noel MD [address] [place] [address] [facility] 03/02/24 Manuel Noel MD [address] [place] [address] [facility] 07/20/24 Wood Mill Supervisor Relationship Specialty Start Date End Date Manuel Noel MD [address] [place] [address] [facility] 03/02/24 Manuel Noel MD [address] [place] [address] [facility] 07/20/24 Wood Mill Supervisor Relationship Specialty Start Date End Date Manuel Noel MD [address] [place] [address] [facility] 03/02/24 Manuel Noel MD [address] [place] [address] [facility] 07/20/24 Wood Mill Supervisor Relationship Specialty Start Date End Date Manuel Noel MD [address] [place] [address] PCP - General Family [facility] 03/02/24 Manuel Noel MD [address] [place] [address] [facility] 07/20/24 Team Status: Inactive Member Role Status Dates Jefferson Howard DO Attending Provider Active Start : January 17, 2025 End: January 17, 2025 Wood Mill Supervisor Relationship Specialty Start Date End Date Manuel Noel MD [address] [place] [address] PCP - [facility] 03/02/24 Manuel Noel MD [address] [place] [address] [facility] 07/20/24 Reason for Visit (unrecogniz ed section and content) Reason Comments Ovarian Cyst Reason Comments Nexplanon Removal Reason Comments Well Women Visit Reason Comments Colposcopy Reason Comments Results Reason Comments Amenorrhea Reason Comments Routine Visit Goals (unrecognized section and content) Goals may [...] BE BASED ON THE PRIMARY CLINICAL RECORDS. [facility]. provides no warranty or guarantee of the accuracy or completeness of information in this document.
[2025-06-07 18:48] LABS: Thyroid Stimulating Hormone 2.104 uIU/mL (0.358-3.740)
== END 2025-06-07 15:33 | disposition home or self-care (01) ==
PROVIDERS: Visit Provider Obstetrics & Gynecology
DX: E07.9 Disorder of thyroid, unspecified (principal)
CPT/HCPCS: 36415; 84443

== ENCOUNTER 2025-07-25 11:57 | Outpatient (OUT) | payer OTHER, SELFPAY ==
--- OUTSIDE RECORDS SUMMARY | 2025-07-25 12:02 | XMS_ITS | Encounter Summary ---
Author Organization [facility] Address [address] [place] [address] Care Team Providers Care Plasma Processing Technician Name Role Phone Manuel Noel MD Primary Care Provider [phone] Manuel Noel MD Unavailable Encounter Details Date Type Department Care Team (Late st Contact Info) Description 06/03/2024 Clinisync Result Encounter [facility] External Department Unsolicited Manuel Noel MD [address] [place] [address] Social History Tobacco Use Types Packs/Day Years [...] week 03/02/2024 How often do you attend adventism or cheondoism serv ices? Never 03/02/2024 Active Member of [...] place to sleep or slept in a longterm (including now)? No 03/02/2024 Comments Unknown Sex and Gender Information Value Date Recorded Sex Assigned at Not on file Legal Sex Female 8:14 PM EDT Gender Identity Not on file Sexual Orientation Not on file documented as of this encounter Plan of Treatment Upcoming Encounters Date Type Department Care Team (Late st Contact Info) Description 08/02/2025 1:40 PM EDT Routine [facility] [address] [place] [address] Jefferson Howard DO [address] [facility] [address] [place] [place], [place] [id number] documented as of this encounter Procedures Procedure Name Priority Date/Time Associated Diagnosis Comments XR LUMBAR SPINE 2 OR 3V 06/03/2024 1:10 PM EDT documented in this encounter Results * XR LUMBAR SPINE 2 OR 3V (06/03/2024 1:10 PM EDT) Anatomical Region Laterality Modality Radiographic Arleen ging 06/03/2024 1:10 PM EDT Narrative 06/03/2024 1:13 PM EDT The [address] [address] XRay Report Signed Patient: MANISH ROMERO MR#: [id number] : 2000 Acct:[id number] Age/Sex: 23 / F ADM Date: 06/01/24 Loc: RAD Attending Dr: Manuel Noel M.D. Ordering Physician: Manuel Noel M.D. Date of Service: 06/01/24 Procedure(s): XR lumbar spine 2-3V Accession Number(s): [id number] cc: Manuel Noel M.D. The [place] [address] Patient Name: MANISH ROMERO MRN: [id number] date: 2000 Sex: F Assigned Patient Location: RAD Current Patient Location: Accession/Order Number: [id number] Exam Date: 06/01/2024 14:19 Report Date: 06/03/2024 [...] Signed By: 06/03/24 1313 DD/ 1310 TD/TT: Installer Helper: Procedure Note Radiology, Radiologist, MD - 06/03/2024 [place] [address] XRay Report Signed Patient: MANISH ROMERO LMR#: [id number] : 2000Acct:[id number] Age/Sex: 23 / FADM Date: 06/01/24 Loc: RAD Attending Dr: Manuel Noel M.D. Ordering Physician: Manuel Noel M.D. Date of Service: 06/01/24 Procedure(s): XR lumbar spine 2-3V Accession Number(s): [id number] cc: Manuel Noel M.D. [address] [address] Patient Name: MANISH ROMERO MRN: [id number] date: 2000 Sex: F Assigned Patient Location: [facility] Current Patient Location: Accession/Order Number: [id number] Exam Date: 06/01/2024 14:19 Report Date: 06/03/2024 [...] M.D. Signed By:06/03/24 1313 DD/ 1310 TD/TT: Installer Helper: Manuel Noel MD IMG XR PROCEDURES Final Result documented in this encounter Visit Diagnoses Not on filedocumented in this encounter Care Teams Plasma Processing Technician Relationship Specialty Start Date End Date Manuel Noel MD PCP - General Family Medicine 03/02/24 Manuel Noel MD [address] [place] [address] PCP - [facility] 07/20/24 documented as of this encounter
--- OUTSIDE RECORDS SUMMARY | 2025-07-25 12:02 | XMS_ITS | Encounter Summary ---
Author Organization [facility] Address [address] [place] [address] Care Team Providers Care Shipyard Supervisor Name Role Phone Manuel Schwartz MD Primary Care Provider [phone] Manuel Schwartz MD Unavailable Encounter Details Date Type Department Care Team (Late st Contact Info) Description 01/21/2025 Abstract [facility] [address] [employer] [place] [address] Jefferson Howard DO [address] [place], [place] [phone] Social History Tobacco Use Types Packs/Day Years [...] week 03/02/2024 How often do you attend gnosticism or christianity serv ices? Never 03/02/2024 Active Member of [...] 08/02/2025 1:40 PM EDT Routine [facility] Emma OBDAVID [address] [facility] [address] [address] Jefferson Howard DO [address] [facility] [address] documented as of this encounter Visit Diagnoses Not on filedocumented in this encounter Care Teams Shipyard Supervisor Relationship Specialty Start Date End Date Manuel Schwartz MD PCP - General Family Medicine 03/02/24 Manuel Schwartz MD [address] [place] [address] PCP - [facility] 07/20/24 documented as of this encounter
--- OUTSIDE RECORDS SUMMARY | 2025-07-25 12:02 | XMS_ITS | Encounter Summary ---
Author Organization [facility] Address [address] [place] [address] Care Team Providers Care Dynamite Reclaimer Name Role Phone Manuel Schwartz MD Primary Care Provider [phone] Manuel Schwartz MD Unavailable Encounter Details Date Type Department Care Team (Late st Contact Info) Description 05/30/2025 Abstract [facility] [address] [place] [address] Jefferson Howard DO [address] [place] [place], [place] [phone] Social History Tobacco Use Types Packs/Day Years [...] week 03/02/2024 How often do you attend sikh or restoration serv ices? Never 03/02/2024 Active Member of [...] in a alf (including now)? No 03/02/2024 Estimated Date of [...] 08/02/2025 1:40 PM EDT Routine [facility] WORLEY [address] [place] [address] Jefferson Howard DO [address] [facility] [facility] [place] [address] documented as of this encounter Visit Diagnoses Not on filedocumented in this encounter Care Teams Dynamite Reclaimer Relationship Specialty Start Date End Date Manuel Schwartz MD PCP - General Family Medicine 03/02/24 Manuel Schwartz MD [address] [place] [address] PCP - [facility] 07/20/24 documented as of this encounter
--- OUTSIDE RECORDS SUMMARY | 2025-07-25 12:02 | XMS_ITS | Encounter Summary ---
Author Organization [facility] Address [address] [facility] [place] [address] Care Team Providers Care Internet Sourcer Name Role Phone Manuel Schwartz MD Primary Care Provider [phone] Manuel Schwartz MD Unavailable Encounter Details Date Type Department Care Team (Late st Contact Info) Description 01/04/2025 Orders Only [facility] OBGYAnish [address] [facility] [place] [address] Mandie [place] [address] [place] [address] Social History Tobacco Use Types Packs/Day Years [...] week 03/02/2024 How often do you attend nondenominational or hoahaoism serv ices? Never 03/02/2024 Active [...] PM EDT Routine [facility] [address] [facility] [address] Jefferson Howard DO [address] [facility] [address] [place], [place] [address] documented as of this encounter Procedures Procedure Name Priority Date/Time Associated Diagnosis Comments PAP SMEAR Routine 12/22/2024 12:00 AM EST documented in this encounter Results * Pap Smear (12/22/2024 12:00 AM EST) Swab Cervical swab / Unknown us [facility] CYTOLOGY ORDERABLES Final Re sult EXTERNAL LAB documented in this encounter Visit Diagnoses Not on filedocumented in this encounter Care Teams Internet Sourcer Relationship Specialty Start Date End Date Manuel Schwartz MD PCP - General Family Medicine 03/02/24 Manuel Schwartz MD [address] [place] [address] [facility] 07/20/24 documented as of this encounter
--- OUTSIDE RECORDS SUMMARY | 2025-07-25 12:02 | XMS_ITS | Encounter Summary ---
Author Organization [facility] Address [address] [place] [address] Care Team Providers Care Editing Clerk Name Role Phone Manuel Schwartz MD Primary Care Provider [phone] Manuel Schwartz MD Unavailable Encounter Details Date Type Department Care Team (Late st Contact Info) Description 02/09/2025 Orders Only [facility] [facility] [address] [place] [address] Manuel Schwartz MD [address] [place] [address] Social History Tobacco Use Types Packs/Day Years [...] week 03/02/2024 How often do you attend hoahaoism or spiritism serv ices? Never 03/02/2024 Active Member of [...] in a fdc (including now)? No 03/02/2024 Comments Unknown Sex [...] PM EDT Routine [facility] [address] [facility] [place] [address] Jefferson Howard DO [address] [facility] [place] [place], [place] [address] documented as of this encounter Procedures Procedure Name Priority Date/Time Associated Diagnosis Comments SCANNED LABS Routine 02/09/2025 2:43 PM EDT documented in this encounter Results * SCANNED LABS (02/09/2025 2:43 PM EDT) Manuel Schwartz MD LAB CHG PERFORMABLES Final Resul t documented in this encounter Visit Diagnoses Not on filedocumented in this encounter Care Teams Editing Clerk Relationship Specialty Start Date End Date Manuel Schwartz MD PCP - General Family Medicine 03/02/24 Maneul Schwartz MD [address] [place] [address] [facility] 07/20/24 documented as of this encounter
--- OUTSIDE RECORDS SUMMARY | 2025-07-25 12:02 | XMS_ITS | Encounter Summary ---
Author Organization [facility] Address [address] [place] [address] Care Team Providers Care Halfway House Counselor Name Role Phone Manuel Schwartz MD Primary Care Provider [phone] Manuel Schwartz MD Unavailable Encounter Details Date Type Department Care Team (Late st Contact Info) Description 06/09/2025 Abstract [facility] [address] [place] [address] Jefferson Howard DO [address] [place], [place] [phone] Social History Tobacco Use Types Packs/Day Years [...] How often do you attend synagogue or uatsdin serv ices? Never 03/02/2024 Active Member of [...] in a residential (including now)? No 03/02/2024 Estimated Date of [...] EDT Routine [facility] [address] [place] [address] Jefferson Howard DO [address] [facility] [place] [address] documented as of this encounter Visit Diagnoses Not on filedocumented in this encounter Care Teams Halfway House Counselor Relationship Specialty Start Date End Date Manuel Schwartz MD PCP - General Family Medicine 03/02/24 Manuel Schwartz MD [address] [place] [address] PCP - [facility] 07/20/24 documented as of this encounter
--- OUTSIDE RECORDS SUMMARY | 2025-07-25 12:02 | XMS_ITS | Encounter Summary ---
Author Organization [facility] Address [address] [place] [address] Care Team Providers Care Computer Aided Design Technician Name Role Phone Manuel Schwartz MD Primary Care Provider [phone] Manuel Schwartz MD Unavailable Encounter Details Date Type Department Care Team (Late st Contact Info) Description 06/24/2025 Abstract [facility] [address] [address] Gia Hernandez, EB [address] [place] [address] Social History Tobacco Use Types Packs/Day Years [...] week 03/02/2024 How often do you attend muslim or baptist serv ices? Never 03/02/2024 Active Member of [...] health care facility (including now)? No 03/02/2024 Estimated Date of [...] EDT Routine [facility] [address] [place] [address] Jefferson Howard DO [address] [facility] [place] [address] documented as of this encounter Visit Diagnoses Not on filedocumented in this encounter Care Teams Computer Aided Design Technician Relationship Specialty Start Date End Date Manuel Schwartz MD PCP - General Family Medicine 03/02/24 Manuel Schwartz MD [address] [place] [address] PCP - [facility] 07/20/24 documented as of this encounter
--- OUTSIDE RECORDS SUMMARY | 2025-07-25 12:02 | XMS_ITS | Encounter Summary ---
Author Organization [facility] Address [address] [facility] [place] [address] Care Team Providers Care Flight Controls Engineer Name Role Phone Manuel Schwartz MD Primary Care Provider [phone] Manuel Schwartz MD Unavailable Encounter Details Date Type Department Care Team (Late st Contact Info) Description 06/10/2024 Orders Only [facility] [address] [place] [address] Manuel Schwartz MD [address] [place] [address] Social History Tobacco Use Types Packs/Day Years [...] week 03/02/2024 How often do you attend evangelical or hoahaoism serv ices? Never 03/02/2024 Active [...] Description 08/02/2025 1:40 PM EDT Routine [facility] [address] [place] [place] [address] Jefferson Howard DO [address] [facility] [place] [address] documented as of this encounter Procedures Procedure Name Priority Date/Time Associated Diagnosis Comments ELECTROCARDIOGRAM REPORT Routine 024 1:41 PM EDT documented in this encounter Results * Electrocardiogram Report (06/09/2024 1:41 PM EDT) Manuel Schwartz MD IN CLINIC/BEDSIDE ORDERABLES Fin al Result documented in this encounter Visit Diagnoses Not on filedocumented in this encounter Care Teams Flight Controls Engineer Relationship Specialty Start Date End Date Manuel Schwartz MD PCP - General Family Medicine 03/02/24 Manuel Schwartz MD [address] [place] [address] [facility] 07/20/24 documented as of this encounter
--- OUTSIDE RECORDS SUMMARY | 2025-07-25 12:02 | XMS_ITS | Encounter Summary ---
Author Organization [facility] Address [address] [place] [address] Care Team Providers Care Plastic Shaper Name Role Phone Manuel Schwartz MD Primary Care Provider [phone] Manuel Schwartz MD Unavailable Encounter Details Date Type Department Care Team (Late st Contact Info) Description 02/09/2025 Results Follow-Up [facility] Emma PURVISGYAnish [address] [place] [place] [address] Ranjana Malave LPN [address] [place] [address] ALL THYROID STIM HORMONE, ALL [...] How often do you attend adventism or jew serv ices? Never 03/02/2024 Active Member of [...] 08/02/2025 1:40 PM EDT Routine [facility] Emma OBGYAnish [address] [facility] [address] Jefferson Howard DO [address] [place] [address] documented as of this encounter Visit Diagnoses Not on filedocumented in this encounter Care Teams Plastic Shaper Relationship Specialty Start Date End Date Manuel Schwartz MD PCP - General Family Medicine 03/02/24 Manuel Schwartz MD [address] [place] [address] PCP - [facility] 07/20/24 documented as of this encounter
--- OUTSIDE RECORDS SUMMARY | 2025-07-25 12:02 | XMS_ITS | Encounter Summary ---
Author Organization [facility] Address [address] [place] [address] Care Team Providers Care Benefit Authorizer Name Role Phone Manuel Schwartz MD Primary Care Provider [phone] Manuel Schawrtz MD Unavailable Encounter Details Date Type Department Care Team (Late st Contact Info) Description 09/07/2024 Orders Only [facility] [facility] [address] [facility] [place] [address] Mir Silva MD [address] [facility] [address] [place] [address] Social History Tobacco Use Types Packs/Day Years [...] week 03/02/2024 How often do you attend sabianism or synagogue serv ices? Never 03/02/2024 Active Member of [...] place to sleep or slept in a mcc (including now)? No 03/02/2024 Comments Unknown Sex [...] PM EDT Routine [facility] OBDAVID [address] [facility] [place] [address] Jefferson Howard DO [address] [facility] [place] [address] documented as of this encounter Procedures Procedure Name Priority Date/Time Associated Diagnosis Comments SCANNED LABS Routine 09/07/2024 2:12 PM EST documented in this encounter Results * SCANNED LABS (09/07/2024 2:12 PM EST) Mir Silva MD LAB CHG PERFORMABLES Final Resu lt documented in this encounter Visit Diagnoses Not on filedocumented in this encounter Care Teams Benefit Authorizer Relationship Specialty Start Date End Date Manuel Schwartz MD PCP - General Family Medicine 03/02/24 Manuel Schwartz MD [address] [place] [address] [facility] 07/20/24 documented as of this encounter
--- OUTSIDE RECORDS SUMMARY | 2025-07-25 12:02 | XMS_ITS | Encounter Summary ---
Author Organization [facility] Address [address] [place] [address] Care Team Providers Care Motion Picture Set Up Worker Name Role Phone Manuel Schwartz MD Primary Care Provider [phone] Manuel Schwartz MD Unavailable Encounter Details Date Type Department Care Team (Late st Contact Info) Description 01/17/2025 Abstract [facility] [address] [place] [address] Jefferson Howard DO [address] [place], [place] [id number] Social History Tobacco Use Types Packs/Day Years [...] How often do you attend lutheran or mandaen serv ices? Never 03/02/2024 Active Member of [...] PM EDT Routine [facility] [address] [place] [address] Jefferson Howard DO [address] [facility] [place] [address] documented as of this encounter Visit Diagnoses Not on filedocumented in this encounter Care Teams Motion Picture Set Up Worker Relationship Specialty Start Date End Date Manuel Schwartz MD PCP - General Family Medicine 03/02/24 Manuel Schwartz MD [address] [place] [address] PCP - [facility] 07/20/24 documented as of this encounter
--- OUTSIDE RECORDS SUMMARY | 2025-07-25 12:02 | XMS_ITS | Clinical Summary ---
Author Organization [employer] [facility] Address [id number] [address] [place] [address] Care Team Providers Care Mud Mill Tender Name Role Phone Manuel Schwarzt MD Primary Care Provider [phone] Allergies Active Allergy Reactions Criticality Noted Date Comments Penicillins 01/21/2019 Medications omeprazole (PriLOSEC) 20 mg capsule Take 1 capsule (20 mg total) by mouth in the morning. Active norethindrone-e.est radioL-iron (ESTROSTEP FE) 1-20(5)/1-30(7) /1mg-35mcg [...] 04/14/2026 04/14/2025 Medical Devices Not on file Insurance [employer] Care Teams Mud Mill Tender Relationship Specialty Start Date End Date Manuel Schwartz MD PCP - General Family Medicine 01/21/19
--- OUTSIDE RECORDS SUMMARY | 2025-07-25 12:02 | XMS_ITS | Clinical Summary ---
Author Organization [facility] Address [address] [place] [address] Care Team Providers Care Reliner Name Role Phone Manuel Schwartz MD Primary Care Provider [phone] Manuel Schwartz MD Unavailable Allergies Active Allergy [...] for nausea. 30 tablet 3 5 Active promethazine (Phenergan) 12.5 MG tabletIndication s:Nausea Take 1 tablet (12.5 mg) by mouth every 6 (six) hours if needed for nausea or vomiting for up to 30 doses Take 1 tablet by mouth every 6 hours as needed for nausea. 30 tablet 2 5 Active metroNIDAZOLE (Flagyl) 500 MG tabletIndication s:BV (bacterial vaginosis) Take 1 tablet (500 mg) by mouth in the morning and 1 tablet (500 mg) before bedtime. Do all this for 7 days. Do not drink alcohol while taking this medication. 14 tablet 5 07/13/20 25 Active Problems Problem Noted Date Diagnosed Date [...] Encounters Date Type Department Care Team Description 07/06/2025 [place] [address] Janneth Paul MA 07/05/2025 2:00 [place] [address] Gia Agustin PA 15 weeks gestation of ([facility]); Second trimester ([facility]); Exposure to STD; Vaginal discharge; Nausea 07/05/2025 External Result Encounter [facility] External Department Unsolicited Gia Agustin PA 07/05/2025 [place] [address] Gia Agustin PA 07/04/2025 Travel 06/27/2025 Patient Outreach [facility] [address] [place] [address] Gia Hernandez LPN 06/24/2025 Abstract [facility] [address] [place] [address] Gia Hernandez LPN 06/09/2025 [place] [address] Jefferson Howard DO 06/07/2025 1:50 [place] [address] Jefferson Howard DO First trimester ([facility]); 11 weeks gestation of ([facility]); Right ovarian cyst; Nausea; PCOS (polycystic ovarian syndrome) 06/07/2025 Clinisync Result Encounter [facility] External Department Unsolicited Jefferson Howard DO 06/07/2025 Bamboo flowsheet [facility] [address] [place] [address] Jefferson Howard, DO 05/31/2025 Travel 05/30/2025 Abstract [facility] [address] [place] [address] Jefferson Howard, DO 05/24/2025 Clinisync Result Encounter NOM[facility] External Department Unsolicited Anita Jefferson, DO 05/05/2025 2:00 PM EDT Initial [facility] [address] [place] [address] [place]: 6w3d 05/05/2025 1:30 PM EDT Ancillary Procedure [facility] [address] [place] [address] Missed menses; Positive urine test ([facility]) from Last 3 Months Social History Tobacco [...] week 03/02/2024 How often do you attend mandaen or uatsdin serv ices? Never 03/02/2024 Active [...] Sign Reading Time Taken Comments Blood Pressure 120/80 07/05/2025 2:07 PM EDT Pulse 108 06/01/2024 1:21 PM EDT Temperature 36.6 C (97.8 F) 06/01/2024 1:21 PM EDT Respiratory Rate 22 06/01/2024 1:21 PM EDT Oxygen Saturation 99% 06/01/2024 1:21 PM EDT Inhaled Oxygen Concentration - - Weight 130 kg (285 lb 12.8 oz) 07/05/2025 2:07 P M EDT Height 154.9 cm (5' 1 ) 06/01/2024 1:21 PM EDT Body Mass Index 54 06/01/2024 1:21 PM EDT Plan of Treatment Upcoming Encounters Date Type Department Care Team (Late st Contact Info) Description 08/02/2025 1:40 PM EDT Routine [facility] [address] [facility] [place] [address] Jefferson Howard DO [address] [facility] [address] [place] [address] Health Maintenance Due Date Last Done Comments Influenza Vaccine (#1) 2025 Procedures Procedure Name Priority Date/Time Associated Diagnosis Comments POCT URINALYSIS DIPSTICK Routine 07/05/2025 2:19 PM EDT 15 weeks gestation of ([facility]) Second trimester ([facility]) RECURRENT VAGINITIS (HTRX) Routine 07/05/2025 2:05 PM EDT ALL THYROID STIM HORMONE Routine 06/07/2025 3:43 PM EDT HBSAG SCREEN Routine 05/24/2025 11:32 AM [...] PM EDT Missed menses Positive urine test ([facility]) from Last 3 Months Results * (ABNORMAL) POCT urinalysis dipstick manually resulted (07/05/2025 2:19 PM EDT) Only the most recent of2 resultswithin the time period is included. Color, UA Yellow Clarity, UA Clear Glucose, UA Negative Negative - 2000(110) ++++ mg/dL Bilirubin, UA Negative Negative - 4(70) +++ mg/dL Ketones, UA Negative Negative - 160(16) ++++ mg/dL Spec Grav, UA 1.015 1 - 1.03 Blood, UA Positive Negative - 50 Lincoln/mcL pH, UA 6.0 5 - 9 Protein, UA Negative Negative - 2000(20) ++++ mg/dL Urobilinogen, UA 1.0 0.2 - 12 mg/dL Leukocytes, UA Negative Negative - 500+++ Skyler/mcL Nitrite, UA Negative Negative - Positive Urine 07/05/2025 2:19 PM EDT Gia LYNN POINT OF CARE TEST ENTER/EDIT OR DERABLES Final Result * (ABNORMAL) RECURRENT VAGINITIS (HTRX) (07/05/2025 2:05 PM EDT) ATOPOBIUM VAGINAE 0 19.961 - 24.689 ppm 07/06/2025 7:10 AM EDT [facility] ATOPOBIUM VAGINAE Not Detected 19.961 - 24.689 ppm 07/06/2025 7:10 AM EDT [facility] BVAB 2,3 (BACTERIAL VAGINOSIS ASSOCIATED BACTERIA 2, 3); MOBILUNCUS SPP 0 19.961 - 24.689 ppm 07/06/2025 7:10 AM EDT [facility] BVAB 2,3 (BACTERIAL VAGINOSIS ASSOCIATED BACTERIA 2, 3); MOBILUNCUS SPP Not Detected 19.961 - 24.689 ppm 07/06/2025 7:10 AM EDT [facility] CYDNEY ALBICANS, PARAPSILOSIS, TROPICALIS 0 23.000 - 30.347 ppm 07/06/2025 7:10 AM EDT [facility] CYDNEY ALBICANS, PARAPSILOSIS, TROPICALIS Not Detected 23.000 - 30.347 ppm 07/06/2025 7:10 AM EDT [facility] CYDNEY GLABRATA 0 23.000 - 31.618 ppm 07/06/2025 7:10 AM EDT [facility] CYDNEY GLABRATA Not Detected 23.000 - 31.618 ppm 07/06/2025 7:10 AM EDT [facility] CYDNEY KRUSEI 0 23.000 - 30.873 ppm 07/06/2025 7:10 AM EDT [facility] CYDNEY KRUSEI Not Detected 23.000 - 30.873 ppm 07/06/2025 7:10 AM EDT [facility] CHLAMYDIA TRACHOMATIS 0 23.000 - 31.586 ppm 07/06/2025 7:10 AM EDT [facility] CHLAMYDIA TRACHOMATIS Not Detected 23.000 - 31.586 ppm 07/06/2025 7:10 AM EDT [facility] GARDNERELLA VAGINALIS 31.049(A) 19.961 - 24.689 ppm 07/06/2025 7:10 AM EDT [facility] GARDNERELLA VAGINALIS Detected(A) 19.961 - 24.689 ppm 07/06/2025 7:10 AM EDT [facility] MEGASPHAERA (TYPES 1, 2) 0 19.961 - 24.689 ppm 07/06/2025 7:10 AM EDT [facility] MEGASPHAERA (TYPES 1, 2) Not Detected 19.961 - 24.689 ppm 07/06/2025 7:10 AM EDT [facility] NEISSERIA GONORRHOEAE 0 23.000 - 32.587 ppm 07/06/2025 7:10 AM EDT [facility] NEISSERIA GONORRHOEAE Not Detected 23.000 - 32.587 ppm 07/06/2025 7:10 AM EDT [facility] TRICHOMONAS VAGINALIS 0 23.000 - 31.995 ppm 07/06/2025 7:10 AM EDT [facility] TRICHOMONAS VAGINALIS Not Detected 23.000 - 31.995 ppm 07/06/2025 7:10 AM EDT [facility] MYCOPLASMA GENITALIUM 0 19.961 - 24.689 ppm 07/06/2025 7:10 AM EDT [facility] MYCOPLASMA GENITALIUM Not Detected 19.961 - 24.689 ppm 07/06/2025 7:10 AM EDT [facility] TET B, TET M 23.864(A) 23.000 - 27.500 ppm 07/06/2025 7:10 AM EDT [facility] TET B, TET M Detected(A) 23.000 - 27.500 ppm 07/06/2025 7:10 AM EDT [facility] Tissue 07/05/2025 2:05 PM EDT 07/06/2025 1:36 AM EDT Gia LYNN LAB BLOOD ORDERABLES Final Resul t Performing Organization Address City/[facility] de Phone Number [facility] [address] [address] * ALL THYROID STIM HORMONE (06/07/2025 3:43 PM EDT) THYROID STIMULATING HORMONE 2.104 0.358 - 3.740 uIU/mL [facility] 06/07/2025 3:43 PM EDT 06/07/2025 3:44 PM EDT Narrative [facility] - 06/07/2025 7:04 PM EDT us Jefferson Howard DO CLINISYNC Final Result [facility] * BOX TEST (05/24/2025 11:32 AM EDT) BOX TEST SENT OUT [facility] BOX1 [facility] BOX2 05/24/25 [facility] 05/24/2025 11:3 2 AM EDT 05/24/2025 11:43 AM EDT Narrative [facility] - 05/24/2025 11:46 AM EDT Jefferson Anita DO LAB BLOOD ORDERABLES Final Resul t Performing Organization Address [facility] Co de Phone Number [facility] * HBSAG SCREEN (05/24/2025 11:32 AM EDT) Pathologist [facility] HBSAG SCREEN Negative Negative [facility] Comment: Performed at: [address] [id number] Autom[employer] General Manager: New Huggins PhD, Phone: [phone] 05/24/2025 11:3 2 AM EDT 05/24/2025 11:43 AM EDT N[facility]ative [facility] - 05/25/2025 1:08 PM EDT Jefferson Anita DO LAB BLOOD ORDERABLES Final Resul t Performing Organization Address [facility] de Phone Number [facility] * RAPID PLASMA REAGIN, QUANT (05/24/2025 11:32 AM EDT) Pathologist [facility] RAPID PLASMA REAGIN, QUANT Non Reactive NonRea<1: 1 titer [facility] Comment: Please Note: This test does not meet current guidelines for screening and diagnosis of syphilis. This test is intended for following treatment response in patients being treated for syphilis infection. To screen for syphilis infection, a reflex cascade that includes both RPR and a treponema-specific assay should be utilized, such as Treponema pallidum (Syphilis) Screening [place] (308865) or Rapid Plasma Reagin (RPR) Test With Reflex to Quantitative RPR and Confirmatory Treponema pallidum Antibodies (916942). Performed at: [address] [id number] [employer] General Manager: New Huggins PhD, Phone: [phone] 05/24/2025 11:3 2 AM EDT 05/24/2025 11:43 AM EDT Narrative CLIN[facility] - 05/25/2025 1:08 PM EDT us Jefferson Howard DO LAB BLOOD ORDERABLES Final Resul t Performing Organization Address [facility] Co de Phone Number [facility] * HIV AB/P24 AG WITH REFLEX (05/24/2025 11:32 AM EDT) Pathologist [facility] HIV AB/P24 AG SCREEN Non Reactive Non Reactive TB Comment: HIV-1/HIV-2 antibodies and HIV-1 p24 antigen were NOT detected. There is no laboratory evidence of HIV infection. HIV Negative Performed at: [address] [id number] [employer] General Manager: New Huggins PhD, Phone: [phone] 05/24/2025 11:3 2 AM EDT 05/24/2025 11:43 AM EDT Narrative CLIN[facility] - 05/25/2025 5:11 AM EDT us Generic External Data Provider LAB BLOOD ORDERAB LES Final Result Performing Organization Address [facility] de Phone Number [facility] * HCV ANTIBODY RFX TO QUANT PCR (05/24/2025 11:32 AM EDT) HCV AB Non Reactive Non Reactive TB INTERPRETATION: Comment . TB Comment: Not infected with HCV unless early or acute infection is suspected (which may be delayed in an immunocompromised individual), or other evidence exists to indicate HCV infection. 05/24/2025 11:3 2 AM EDT 05/24/2025 11:43 AM EDT Narrative CLINISYNC - 05/25/2025 6:12 AM EDT us Generic External Data Provider LAB BLOOD ORDERAB LES Final Result Performing Organization Address [facility]/ZIP Co de Phone Number [facility] * MLR HEMOGLOBIN A1C (05/24/2025 11:32 AM EDT) Pathologist [facility] GLYCOHEMOGLOBIN A1C 5.2 4.5 - 6.2 % [facility] Comment: ADA RECOMMENDED LIMIT 4.0 - 6.0 ADA THERAPEUTIC TARGET < 7.0 ACTION SUGGESTED > 7.0 ESTIMATED AVERAGE GLUCOSE 103 mg/dL [facility] 05/24/2025 11:3 2 AM EDT 05/24/2025 11:43 AM EDT Narrative CLINISYNC - 05/24/2025 12:05 PM EDT Jefferson Anita DO CLINISYUT Final Result Performing Organization Address [facility] Co de Phone Number [facility] * ALL TYPE AND SCREEN (05/24/2025 11:32 AM EDT) Pathologist [facility] BLOOD TYPE O Positive [facility] ANTIBODY SCREEN NEGATIVE TB 05/24/2025 11:3 2 AM EDT 05/24/2025 11:43 AM EDT Narrative CLINISYNC - 05/24/2025 12:45 PM EDT [facility] [place] [facility] Anita DO CLINISYNC Final Result Performing Organization Address [facility] Co de Phone Number [facility] * ALL RUBELLA IGG AB (05/24/2025 11:32 AM EDT) Pathologist [facility] RUBELLA ANTIBODIES, IGG 2.91 Immune >0.99 index TB Comment: Non-immune <0.90 Equivocal 0.90 - 0.99 Immune >0.99 Performed at: [address] [id number] Autom[employer] General Manager: New Huggins PhD, Phone: [phone] 05/24/2025 11:3 2 AM EDT 05/24/2025 11:43 AM EDT Narrative CLINISY[facility] - 05/25/2025 6:12 AM EDT us Generic External Data Provider DAT Moran inal Result DAT [facility] * (ABNORMAL) ALL CBC WITH AUTO DIFF (05/24/2025 11:32 AM EDT) [facility] TB WBC 7.6 4.0 - 11.0 10 3/uL [facility]H [facility] RBC 4.03(L) 4.20 - 5.40 10 6/uL [facility] HGB 11.9(L) 12.0 - 16.0 g/dL TBH TB[facility] HCT 35.4(L) 36.0 - 48.0 % [facility] MCV 87.8 81.0 - 99.0 fL TBH [...] us Jefferson Howard DO CLINISYNC Final Result [facility] * URINE CULTURE, ROUTINE (05/24/2025 11:12 AM EDT) URINE CULTURE, ROUTINE Urine Culture, Routine [facility] URINE CULTURE, ROUTINE Mixed urogenital thiago [facility] URINE CULTURE, ROUTINE Less than 10,000 colonies/mL [facility] URINE CULTURE, ROUTINE [facility]formed at: - [facility] URINE CULTURE, ROUTINE [address] [place] [id number] [facility] URINE CULTURE, ROUTINE Autom[employer] General Manager: New Huggins PhD, Phone: [phone] [facility] 05/24/2025 11:1 2 AM EDT 05/24/2025 11:43 AM EDT Narrative CLINISYNC - 05/25/2025 8:08 PM EDT us Generic External Data Provider LAB BLOOD ORDERAB LES Final Result [facility] * [facility] DRUG SCREEN RAPID (URINE) (05/24/2025 11:12 AM [...] us Jefferson Anita DO CLINISYNC Final Result DAT TB * (ABNORMAL) POCT , urine manually resulted (05/05/2025 2:16 PM EDT) Preg Test, Ur Positive Negative Urine 05/05/2025 2:16 PM EDT us Jefferson Jacksono DO POINT OF CARE TEST ENTER/EDIT OR [...] cyst. Procedure Note Kenneth Arce MD - 07/17/2025 FINDINGS: A single intrauterine gestational sac is [...] Months Insurance [employer] Care Teams Reliner Relationship Specialty Start Date End Date Manuel Schwartz MD PCP - General Family Medicine 03/02/24 Manuel Schwartz MD [address] [place] [address] PCP - [facility] 07/20/24
--- OUTSIDE RECORDS SUMMARY | 2025-07-25 12:05 | XMS_ITS | CCD ---
Author Organization [facility] Care Team Providers Care Chemical Laboratory Tester Name Role Phone DEMETRIOC, DR WILLS Attending [...] Unavailable ANITA ., DR ANDREA Attending Unavailable DE GRAFF, DR AISHWARYA Luis Consulting Unavailable NADERER, DR [...] Unavailable NADERER, DR MANUEL Souza Consulting Unavailable Lana MATSON, Manuel Primary Care Provider [phone] Mir Silva MD Attending Provider Manuel Noel MD Primary Care Provider [phone] Manuel Noel MD Unavailable Manuel Noel MD Primary Care Provider Krishna Saxena MD Attending [...] Attending Unavailable MANUEL NOEL Primary Care Unavailable Manuel Noel MD Primary Care Provider [phone] Manuel Noel MD Unavailable JEFFERSON HOWARD Attending Unavailable JEFFERSON HOWARD Attending Unavailable GIA MAYO Attending Unavailable JEFFERSON HOWARD Attending Unavailable JEFFERSON HOWARD Attending Unavailable JEFFERSON HOWARD Attending Unavailable GIA MAYO Attending Unavailable Allergies Allergy Classification Reported Allergen(s) Allergy Type Date of Onset Reaction(s) Facility (2 sources) Penicillins; Translations: [PENICILLINS] Drug allergy (disorder) 9 [facility] Repository (20 sources) Penicillins Drug Intolerance 1 Unknown [facility] (1 source) Penicillins Drug allergy (disorder) 4 [facility] Repository Medications Current Medications Medication Drug Class(es) [...] intrinsic asthma without status asthmaticus without complication ([facility]) Inhale 2 puffs every 4 (four) hours [...] 2021 3:38pm ondansetron 4 mg oral tablet (20 sources) [...] as needed for nausea. 30 tablet 3 06/07/2025 Active promethazine hydrochloride 12.5 mg oral tablet (20 sources) Phenothiazine Start: 07-05-2025 take 1 tablet by mouth every six hours as needed for nausea and vomiting and nausea and nausea promethazine (Phenergan) 12.5 MG tablet Indications: Nausea Take 1 tablet (12.5 mg) by mouth every 6 (six) hours if needed for nausea or vomiting for up to 30 doses Take 1 tablet by mouth every 6 hours as needed for nausea. 30 tablet 2 07/05/2025 Active Start: 08-27-2024 take 1 tablet by jace th every six hours as needed for nausea [...] Active 1 GM PO Twice daily 60 30 October 05, 2024 1:00am Completed/Discontinued Medications Medication [...] Daily at bedtime 30 December 14, 2021 1:00am August 24, 2024 10:32am ergocalciferol 1.25 mg oral capsule (3 sources) Provitamin D2 Compound Start: 01-26-2019 End: 12-12-2021 Ergocalciferol (Vitamin D2) 50,000 unit Capsule Discontinued 29686 UNIT PO Sa@0900 2 January 26, 2019 [...] tablet 11 12/22/2024 04/27/2025 Discontinued (Therapy completed) sertraline 50 mg oral tablet (3 sources) Serotonin Reuptake Inhibitor Start: 01-26-2019 End: 12-12-2021 take 1 tablet by mouth once daily Sertraline 50 mg Tablet Discontinued 50 MG PO Daily 14 January 26, 2019 12:00am December 12, 2021 3:38pm Problems Active Problems Problem Classification Problem Date Documented Da te Episodic/Chronic Acute posthemorrhagic anemia (1 source) Acute posthemorrhagic anemia; Translations: [ACUTE POSTHEMORRHAGIC ANEMIA] Onset: Episodic Administrative/social admission (2 sources) Patient encounter status; Translations: [Person consulting for explanation of examination or test findings] 02-02-2025 Episodic Asthma (20 sources) Mild intermittent asthma; Translations: [Mild intermittent asthma, uncomplicated] Onset: 03-02-2024 Chronic Cancer of cervix (1 source) [...] (2 sources) Esophagitis; Translations: [Esophagitis] 10-05-2024 Episodic Immunizations and screening for infectious disease (4 sources) Encounter for screening for infections with a predominantly sexual mode of transmission; Translations: [Contact with and (suspected) exposure to infections with a predominantly sexual mode of transmission] Onset: 2 07-05-2025 Episodic Influenza (1 source) Influenza due to other identified influenza virus with other respiratory manifestations; Translations: [FLU D/T OTH ID FLU VIR OTH RSP MANF] Onset: 2 Episodic Menstrual disorders (20 sources) Irregular menstruation, unspecified; Translations: [Amenorrhea] Onset: 2 Chronic Mood disorders (20 sources) Recurrent major depression; Translations: [Major depressive disorder, recurrent, unspecified] Onset: 4 01-21-2019 Chronic Nausea and vomiting (11 sources) Nausea; Translations: [Nausea] 08-24-2024 Episodic Other [...] Translations: [Polycystic ovarian syndrome] 11-11-2024 Chronic Other female genital disorders (2 sources) Vaginal discharge; Translations: [Other specified noninflammatory disorders of vagina] 07-05-2025 Episodic Other gastrointestinal disorders (3 sources) Constipation; Translations: [...] [11 weeks gestation of ] 06-07-2025 Episodic Residual codes; unclassified (2 sources) Gestation period, 15 weeks; Translations: [15 weeks gestation of ] 07-05-2025 Episodic Thyroid disorders (1 source) Disorder of thyroid gland; Translations: [Disorder of thyroid, unspecified] 05-05-2025 Episodic Unclassified (2 sources) OT SPCF DIS/COND COMPL ; Translations: [OT SPCF DIS/COND COMPL ] Onset: 2 Unclassified (1 source) STOMACH PAIN, DIARRHEA Onset: 4 Past or Other Problems Problem Classification Problem Date Documented Date Episodic/Chronic Abdominal pain (20 sources) Indigestion; Translations: [Epigastric pain] Onset: 03-02-2024 Resolved: 06-01-2024 08-24-2024 Episodic Noninfectious gastroenteritis (1 source) Noninfective [...] Name Value Interpretation Reference Range Facil ity RECURRENT VAGINITIS (HTRX)on 07-06-2025 ATOPOBIUM VAGINAE 0 [facility] ATOPOBIUM VAGINAE Not detected [facility] BVAB 2,3 (BACTERIAL VAGINOSIS ASSOCIATED BACTERIA 2, 3); MOBILUNCUS SPP 0 [facility] BVAB 2,3 (BACTERIAL VAGINOSIS ASSOCIATED BACTERIA 2, 3); MOBILUNCUS SPP Not detected [facility] CYDNEY ALBICANS, PARAPSILOSIS, TROPICALIS 0 [facility] CYDNEY ALBICANS, PARAPSILOSIS, TROPICALIS Not detected [facility] CYDNEY GLABRATA 0 [facility] CYDNEY GLABRATA Not detected [facility] CYDNEY KRUSEI 0 [facility] CYDNEY KRUSEI Not detected [facility] CHLAMYDIA TRACHOMATIS 0 [facility] CHLAMYDIA TRACHOMATIS Not detected [facility] GARDNERELLA VAGINALIS 31.049 Abnormal [facility] GARDNERELLA VAGINALIS Detected Abnormal [facility] Interpretation and review of laboratory results Abnormal [facility] MEGASPHAERA (TYPES 1, 2) 0 [facility] MEGASPHAERA (TYPES 1, 2) Not detected [facility] MYCOPLASMA GENITALIUM 0 [facility] MYCOPLASMA GENITALIUM Not detected [facility] NEISSERIA GONORRHOEAE 0 [facility] NEISSERIA GONORRHOEAE Not detected [facility] TET B, TET M 23.864 Abnormal [facility] TET B, TET M Detected Abnormal [facility] TRICHOMONAS VAGINALIS 0 [facility] TRICHOMONAS VAGINALIS Not detected [facility] Urinalysis macro (dipstick) panel (U)on 07-05-2025 Bilirubin, UA Negative Negative - 4(7 0) +++ mg/dL [facility] Blood, UA Positive Negative - 50 Lincoln/mcL [facility] Clarity, UA Clear [facility] Color, UA Yellow [facility] Glucose, UA Negative Negative - 1999(110) ++++ mg/dL [facility] Interpretation and review of laboratory results Abnormal [facility] Ketones, UA Negative Negative - 160(16) ++++ mg/dL [facility] Leukocytes, UA Negative Negative - 50 0+++ Skyler/mcL [facility] Nitrite, UA Negative Negative - Positive [facility] pH, UA 6 5 - 9 [facility] Protein, UA Negative Negative - 1999(20) ++++ mg/dL [facility] Spec Grav, UA 1.015 1 - 1.03 [facility] Urobilinogen, UA 1.0 0.2 - 12 mg/dL [facility] ALL THYROID STIM HORMONEon 0 06-07-2025 TSH Qn 2.104 m[IU]/L [facility] BOX TESTon 05-24-2025 BOX TEST SENT OUT YES [facility] BOX1 UNITY [facility] BOX2 05/24/25 [facility] HCG ( test) Ql (U)o n 05-05-2025 Interpretation and review of laboratory results Abnormal [facility] Preg Test, Ur Positive Negative [facility] US OB TRANSVAGINALon 025 US OB TRANSVAGINAL [...] Negative Negative - 4(7 0) +++ mg/dL [facility] Blood, UA Negative Negative - 50 Lincoln/mcL [facility] Clarity, UA Clear [facility] Color, UA Yellow [facility] Glucose, UA Negative Negative - 1999(110) ++++ mg/dL [facility] Interpretation and review of laboratory results Abnormal [facility] Ketones, UA Negative Negative - 160(16) ++++ mg/dL [facility] Leukocytes, UA Negative Negative - 50 0+++ Skyler/mcL [facility] Nitrite, UA Negative Negative - Positive [facility] pH, UA 7 5 - 9 [facility] Protein, UA Trace Negative - 1999(20) ++++ mg/dL [facility] Spec Grav, UA 1.025 1 - 1.03 [facility] Urobilinogen, UA 1.0 0.2 - 12 mg/dL [facility] POCT NURSING URINE MACROSCOP IC UAon 04-14-2025 BILIRUBIN MOLLY Negative Normal Negative [facility] Comment on above: Performed By: #### N UM #### [facility] ([facility]) [address] [place] [address] [place] [address] VIR BLOOD/HGB MOLLY Trace Abnormal Negative [facility] Comment on above: Performed By: #### N UM #### [facility] ([facility]) [address] [place] [address] [place] [address] VIR GLUCOSE MOLLY Negative Normal Negative [facility] Comment on above: Performed By: #### N UM #### [facility] ([place] [address] [place] [address] VIR KETONES MOLLY Negative Normal Negative [facility] Comment on above: Performed By: #### N UM #### [facility] ([place] [address] [place] [address] VIR LEUKOCYTE ESTERASE MOLLY Negative Normal Negative [facility] Comment on above: Performed By: #### N UM #### [facility] ([address] [place] [address] VIR NITRITE MOLLY Negative Normal Negative [facility] Comment on above: Performed By: #### N UM #### [facility] ([address] [place] [address] VIR PH MOLLY 6.5 Normal 5.0, 6.0, 6.5, 7.0, 7.5, 8.0, 8.5, 5.5 [facility] Comment on above: Performed By: #### N UM #### [facility] ([address] [place] [address] VIR PROTEIN MOLLY 100 mg/dL Abnormal Negative [facility] Comment on above: Performed By: #### N UM #### [facility] ([address] [place] [address] VIR SPECIFIC GRAVITY MOLLY >=1.030 Abnormal 1.010, 1.015, 1.020, 1.025 [facility] Comment on above: Performed By: #### N UM #### [facility] ([address] [place] [address] VIR UROBILINOGEN MOLLY 0.2 E.U./dL Normal [facility] Comment on above: Performed By: #### N UM #### [facility] ([address] [place] [address] VIR POCT , URINE (NUCG) on 04-14-2025 Beta HCG ( test) Ql (U) Positive Abnormal Negative, Indeterminate [facility] Comment on above: Performed By: #### N UCG #### [facility] ([facility]) [address] [facility] [facility] [place] [address] VIR ALL THYROID STIM HORMONEon 0 02-09-2025 Interpretation and review of laboratory results Abnormal [facility] TSH Qn 5.935 m[IU]/L High [facility] HCG ( test) Ql (U)o n 01-17-2025 Interpretation and review of laboratory results Normal [facility] Preg Test, Ur Negative Negative [facility] [place] 01-17-2025 L Specimen: [id number] Received: 01/18/25 Status: GHAZAL Zurita Num: [id number] Spec Type: Surgical Subm Dr: Jefferson Howard Tissues: A Endocervix - Biopsy (ENDOCERVIX) Endocervix - Curettings Procedures: HE/2, Gross/Micro L4 Age/ Patient Sex Location Account Attending Physician Jes Malik 24/ LABELL [id number] Jefferson Howard SPEC NUM: [id number] RECD: 01/18/25 STATUS: GHAZAL ZURITA NUM: [id number] JUDIT: 01/17/[address]: Jefferson Howard ENTERED: 01/18/25-[address]: Emma,Lab SPEC TYPE: Surgical DEPT: LUCAS MAR ENTERED BY: [id number] RECV BY: [id number] ORDERED: HE/2, Gross/Micro L4 ORDERED: HE/2, Gross/Micro [...] submitted in a single cassette. (1, ns, [id number]) Microscopic Description Microscopic examination is performed Specimen: [id number] Received: 01/18/25 Status: GHAZAL Zurita Num: [id number] Spec Type: Surgical Subm Dr: Jefferson Howard Tissues: A Endocervix - Biopsy (ENDOCERVIX) Endocervix - Curettings Procedures: Day MEDELLIN/Elvin L4 Patient: Jes Malik [id number] (Continued) Specimen: [id number] Received: 01/18/25 (Continued) Signed (signature on file) Lizabeth Diggs MD 01/19/25 1541 Specimen: [id number] Received: 01/18/25 Status: GHAZAL Zurita Num: [id number] Spec Type: Surgical Subm Dr: Jefferson Howard Tissues: A Endocervix - Biopsy (ENDOCERVIX) Endocervix - Curettings Procedures: Day MEDELLIN/Elvin L4 Patient: Jes Malik [id number] (Continued) Specimen: [id number] Received: 01/18/25 (Continued) CPT Codes 25444 Specimen: [id number] Received: 01/18/25 Status: GHAZAL Zurita Num: [id number] Spec Type: Surgical Subm Dr: Jefferson Howard Tissues: A Endocervix - Biopsy (ENDOCERVIX) Endocervix - Curettings Procedures: HE/2, Gross/Micro L4 Patient: Jes Malik [id number] (Continued) Signed (signature on file) Lizabeth Diggs MD 01/19/25 1541 Normal [facility] Urinalysis macro (dipstick) panel (U)on 01-17-2025 Bilirubin, UA Negative Negative - 4(7 0) +++ mg/dL [facility] Blood, UA Negative Negative - 50 Lincoln/mcL [facility] Clarity, UA Clear [facility] Color, UA Yellow [facility] Glucose, UA Negative Negative - 2000(110) ++++ mg/dL [facility] Interpretation and review of laboratory results Abnormal [facility] Ketones, UA Positive Negative - 160(16) ++++ mg/dL [facility] Comment on above: trace Leukocytes, UA Negative Negative - 50 0+++ Skyler/mcL [facility] Nitrite, UA Negative Negative - Positive [facility] pH, UA 5.5 5 - 9 [facility] Protein, UA Positive Negative - 2000(20) ++++ mg/dL [facility] Comment on above: 100 Spec Grav, UA 1.03 1 - 1.03 [facility] Urobilinogen, UA 0.2 0.2 - 12 mg/dL [facility] US PELVIC COMPLETE W/ TVon 0 01-12-2025 [...] II, MD, PHD at 13-Jan-2025 11:16:36 PM [facility] Normal Not Available Comment on above: Order Comment: US PE LVIS-TRANSVAG IF INDICATED No LMP recorded. Urine Cultureon 01-03-2025 Bacteria identified Cx Nom (U) 15,000 colonies/ml mixed bacterial skin contaminants 2 Days PERFORMED BY: [place] [address] PATHOLOGIST AUTOMOTIVE TIRE TESTING SUPERVISOR BRUCE CALI M.D. Normal [facility] Comment on above: Performed By: #### C UU #### [address] Urine cultureOrdered By: Zenon Saxena on 01-03-2025 Bacteria identified Cx Nom (U) Urine culture [facility] IGP,APTIMA HPV,AGE GDLNon AGE GDLN ACOG TESTING Note . [facility] Comment on above: TESTS RESULT FLAG UN ITS REF RANGE LAB Clinician Provided Cytology Information Source.............Cervix;Endocervix No. of containers..01 ThinPrep Vial Age Algo ACOG Mela... 21-29 FLAG LEGEND: L-Low Normal,H-High Normal,LL-Alert Low,HH-Alert High <-Panic Low,>-Panic High,A-Abnormal,AA-Critical Abnormal Performed at: 01 [facility] [address] [place] [address] Aleida Colon MD, IGP, RFX APTIMA HPV ASCU Note Abnormal . [facility] Comment on above: TESTS RESULT FLAG UN ITS REF RANGE LAB DIAGNOSIS: [A] 02 EPITHELIAL CELL ABNORMALITY. LOW GRADE SQUAMOUS INTRAEPITHELIAL LESION (LSIL). Specimen adequacy: 02 Satisfactory for evaluation. Endocervical and/or squamous metaplastic cells (endocervical component) are present. Performed by: Surya Smith, Hydrogen Treater (ASCP) Electronically si... 02 Johanne Desir MD, [...] <-Panic Low,>-Panic High,A-Abnormal,AA-Critical Abnormal Performed at: [address] [address] Aleida Colon MD, Performed at: [address] [id number] Telegraphic Typewriter Operator Chief: Aleida Colon MD, Phone: [phone] Performed at: [address] [id number] Telegraphic Typewriter Operator Chief: Aleida Colon MD, Phone: [phone] Interpretation and review of laboratory results Abnormal [facility] BRUSH-SPATULA CERVIX ENDOCERVIX [facility] Insertion/Removal of Contrac eptive Capsuleon 12-02-2024 [...] and pressure bandage applied: yes [facility] US PELVIC COMPLETE W/ TVon 0 11-30-2024 [...] ovaries. No evidence of ovarian cysts. Electronically Signed:Electronicall y signed by NORMA SANDERSON II, MD, PHD at 03-Dec-2024 08:37:11 AM [facility] Normal Not Available Comment on above: Order Comment: US PE LVIS-TRANSVAG IF INDICATED No LMP recorded. ALL CBC WITH AUTO DIFFon BASOPHILS ABSOLUTE AUTO 0.1 [facility] Basophils/100 WBC (Bld) 0.6 % 0.2 - 2.0 % [facility] Eosinophils/100 WBC (Bld) 2.6 % 0.9 - 7.0 % [facility] Erythrocyte distribution width (RBC) [Ratio] 13.2 % 11.0 - 15.0 % [facility] Hematocrit (Bld) [Volume fraction] 38.2 % 36.0 - 48.0 % [facility] Hemoglobin (Bld) [Mass/Vol] 12.4 g/dL 12.0 - 16.0 g/dL [facility] IMMATURE GRANULOCYTES ABS AUTO 0.04 High [facility] Immature granulocytes/100 WBC (Bld) 0.4 % 0.0 - 0.5 % [facility] Interpretation and review of laboratory results Abnormal [facility] LYMPHOCYTES ABSOLUTE AUTO 3.4 [facility] Lymphocytes/100 WBC (Bld) 34.8 % 20.5 - 60.0 % [facility] MCH (RBC) [Entitic mass] 28.3 pg 26.7 - 34.0 pg [facility] MCHC (RBC) [Mass/Vol] 32.5 g/dL 29.9 - 35.2 g/dL [facility] MCV (RBC) [Entitic vol] 87.2 fL 81.0 - 99.0 fL [facility] MONOCYTES ABSOLUTE AUTO 0.7 [facility] Monocytes/100 WBC (Bld) 7.2 % 1.7 - 12.0 % [facility] NEUTROPHILS ABSOLUTE AUTO 5.4 [facility] Neutrophils/100 WBC (Bld) 54.4 % 43.0 - 75.0 % [facility] Platelet mean volume (Bld) [Entitic vol] 10 fL 9.5 - 13.5 fL [facility] TBH EO # 0.3 [facility]H PLT [address] [facility] RBC 4.38 [facility] WBC 9.9 [facility] HCG ( test) IA.rapi d Ql (U)Ordered By: Mir Silva on 09-07-2024 HCG ( test) Ql (U) Urine human chorionic gonadotropin (hCG) detection by immunoassay [facility] HCG,Urineon 09-07-2024 Beta HCG ( test) Ql (U) Negative Normal [facility] Comment on above: Result Comment: PERF ORMED BY: [address] [place] [address] PATHOLOGIST AUTOMOTIVE TIRE TESTING SUPERVISOR BRUCE CALI M.D. Performed By: #### U HCG #### [address] 09-07-2024 L Specimen: [id number] Received: 09/07/24 Status: GHAZAL Zurita Num: [id number] Spec Type: Surgical Subm Dr: Mir Sliva MD Tissues: A Small Intestine - Biopsy/Polyp (SMALL BOWEL BX R/O CELIAC) Procedures: LACIE Gross/Micro L4 Age/ Patient Sex Location Account Attending Physician Jes Malik / [id number] Mir Silva MD SPEC NUM: [id number] RECD: 09/07/24 STATUS: GHAZAL ZURITA NUM: [id number] JUDIT: 09/07/24 [facility] DR: Mir Silva MD ENTERED: 09/07/[address]: SPEC TYPE: Surgical DEPT: S ENTERED BY: [id number] RECV BY: [id number] ORDERED: LACIE Gross/Micro L4 ORDERED: HE/2, Gross/Micro L4 Pathological [...] submitted in a single cassette. (1, ns, [id number]) Microscopic Description Microscopic examination is performed. CPT Codes 92982 Specimen: [id number] Received: 09/07/24 Status: GHAZAL Parminder Num: [id number] Spec Type: Surgical Subm Dr: Mir Silva MD Tissues: A Small Intestine - Biopsy/Polyp (SMALL BOWEL BX R/O CELIAC) Procedures: TESSIE/2, Gross/Micro L4 Patient: Jes Malik [id number] (Continued) Signed (signature on file) Roberth Martinez MD 09/08/24 1012 Normal [facility] CBC AND AUTO DIFFon 08-28-20 24 ABSOLUTE BASOPHIL 0.0 X10E9/L Normal 0.0-0.2 [facility] Comment on above: Performed By: #### C DONG, CBCA #### [facility] ([id number]) [address] [place] [address] ABSOLUTE NEUTROPHIL 3.8 X10E9/L Normal 1.5-6.6 [facility] Comment on above: Performed By: #### C MP, CBCA #### [facility] ([id number]) [address] [place] [address] Basophils/100 WBC (Bld) 0.3 % Normal [facility] Comment on above: Performed By: #### C MP, CBCA #### [facility] ([id number]) [address] [place] [address] Eosinophils (Bld) [#/Vol] 0.0 10*3/uL Normal 0.0-0.4 [facility] Comment on above: Performed By: #### C MP, CBCA #### [facility] ([id number]) [address] [place] [address] Eosinophils/100 WBC (Bld) 0.8 % Normal [facility] Comment on above: Performed By: #### C MP, CBCA #### [facility] ([id number]) [address] [place] [address] Erythrocyte distribution width (RBC) [Ratio] 14.5 % Normal 11.5-15.0 [facility] Comment on above: Performed By: #### C MP, CBCA #### [facility] ([id number]) [address] [place] [address] Hematocrit (Bld) [Volume fraction] 38.8 % Normal 35-47 [facility] Comment on above: Performed By: #### C MP, CBCA #### [facility] ([id number]) [address] [place] [address] Hemoglobin (Bld) [Mass/Vol] 13.0 g/dL Normal 11.7-15.5 [facility] Comment on above: Performed By: #### C DONG, CBCA #### [facility] ([id number]) [address] [place] [address] Lymphocytes (Bld) [#/Vol] 0.5 10*3/uL Low 1.0-3.5 [facility] Comment on above: Performed By: #### C DONG, CBCA #### [facility] ([id number]) [address] [place] [address] Lymphocytes/100 WBC (Bld) 11.5 % Normal [facility] Comment on above: Performed By: #### C DONG, CBCA #### [facility] ([id number]) [address] [place] [address] MCH (RBC) [Entitic mass] 28.6 pg Normal 27-34 [facility] Comment on above: Performed By: #### C MP, CBCA #### [facility] ([id number]) [address] [place] [address] MCHC (RBC) [Mass/Vol] 33.5 g/dL Normal 32-36 [facility] Comment on above: Performed By: #### C MP, CBCA #### [facility] ([id number]) [address] [place] [address] MCV (RBC) [Entitic vol] 85 fL Normal 80-100 [facility] Comment on above: Performed By: #### C MP, CBCA #### [facility] ([id number]) [address] [place] [address] Monocytes (Bld) [#/Vol] 0.2 10*3/uL Normal 0-0.9 [facility] Comment on above: Performed By: #### C MP, CBCA #### [facility] ([id number]) [address] [place] [address] Monocytes/100 WBC (Bld) 5.1 % Normal [facility] Comment on above: Performed By: #### C MP, CBCA #### [facility] ([id number]) [address] [place] [address] Neutrophils/100 WBC (Bld) 82.3 % Normal [facility] Comment on above: Performed By: #### C MP, CBCA #### [facility] ([id number]) [address] [place] [address] Platelet mean volume (Bld) [Entitic vol] 8.6 fL Normal 7-12 [facility] Comment on above: Performed By: #### C MP, CBCA #### [facility] CAMPUS ([id number]) [address] [place] [address] 57857 Platelets (Bld) [#/Vol] 225 10*3/uL Normal 150-450 [facility] Comment on above: Performed By: #### C MP, CBCA #### [facility] ([id number]) [address] [place] [address] 19174 RBC COUNT 4.55 X10E12/L Normal 3.80-5.20 [facility] Comment on above: Performed By: #### C MP, CBCA #### [facility] ([id number]) [address] [place] [address] 41165 WBC (Bld) [#/Vol] 4.6 10*3/uL Normal 4.0-11.0 [facility] Comment on above: Performed By: #### C MP, CBCA #### [facility] ([id number]) [address] [place] [address] 24196 COMPREHENSIVE METABOLIC PANE Carlin 08-28-2024 Albumin [Mass/Vol] 3.6 g/dL Normal 3.2-5.3 [facility] Comment on above: Performed By: #### C DONG, CBCA #### [facility] ([id number]) [address] [place] [address] 98773 ALP [Catalytic activity/Vol] 65 U/L Normal 39-130 [facility] Comment on above: Performed By: #### C MP, CBCA #### [facility] ([id number]) [address] [place] [address] 69730 ALT [Catalytic activity/Vol] 29 U/L Normal 0-31 [facility] Comment on above: Performed By: #### C MP, CBCA #### [facility] ([id number]) [address] [place] [address] 86802 Anion gap [Moles/Vol] 10 mmol/L Normal 5-15 [facility] Comment on above: Performed By: #### C MP, CBCA #### [facility] ([id number]) [address] [place] [address] 26983 AST [Catalytic activity/Vol] 36 U/L Normal 0-41 [facility] Comment on above: Performed By: #### C MP, CBCA #### [facility] ([id number]) [address] [place] [address] 22200 Bilirubin [Mass/Vol] 0.9 mg/dL Normal 0.3-1.2 [facility] Comment on above: Performed By: #### C JOAQUINA UMANA #### [facility] ([id number]) [address] [place] [address] 69175 Calcium [Mass/Vol] 8.3 mg/dL Low 8.5-10.5 [facility] Comment on above: Performed By: #### C DONG CBCA #### [facility] ([id number]) [address] [place] [address] 47327 Chloride [Moles/Vol] 103 mmol/L Normal 98-109 [facility] Comment on above: Performed By: #### C DONG CBCA #### [facility] ([id number]) [address] [place] [address] 40277 CO2 [Moles/Vol] 22 mmol/L Normal 22-32 [facility] Comment on above: Performed By: #### C JOAQUINA UMANA #### [facility] ([id number]) [address] [place] [address] 18291 Creatinine [Mass/Vol] 0.72 mg/dL Normal 0.40-1.00 [facility] Comment on above: Result Comment: METH OD TRACEABLE TO IDMS STANDARD Performed By: #### C JOAQUINA UMANA #### [facility] ([id number]) [address] [place] [address] 56159 eGFR (CKD-EPI) NON-RACE DEPENDENT >90 Normal >59 [facility] Comment on above: Result Comment: Reported eGFR is based on the CKD-EPI 2020 equation that does not use a race coefficient. Performed By: #### C DONG CBCA #### [facility] ([id number]) [address] [place] [address] 24491 Glucose [Mass/Vol] 103 mg/dL High 65-99 [facility] Comment on above: Performed By: #### C MP, CBCA #### [facility] ([id number]) [address] [place] [address] 73808 Potassium [Moles/Vol] 3.5 mmol/L Normal 3.5-5.0 [facility] Comment on above: Performed By: #### C MP, CBCA #### [facility] ([id number]) [address] [place] [address] 48149 Protein [Mass/Vol] 6.9 g/dL Normal 6.0-8.0 [facility] Comment on above: Performed By: #### C MP, CBCA #### [facility] ([id number]) [address] [place] [address] 35385 Sodium [Moles/Vol] 135 mmol/L Normal 134-146 [facility] Comment on above: Performed By: #### C MP, CBCA #### [facility] ([id number]) [address] [place] [address] 24362 Urea nitrogen [Mass/Vol] 16 mg/dL Normal 5-23 [facility] Comment on above: Performed By: #### C MP, CBCA #### [facility] ([id number]) [address] [place] [address] ABDOMEN AND PELVIS W CONT on [...] Recommendations for adnexal lesion management based on Singh, et al., J Am Judit Radiol 10:675-81 (2013). * All CT scans at this facility use dose modulation, iterative reconstruction, and/or weight based dosing when appropriate to reduce radiation dose to as low as reasonably achievable Finalized by Huang Burleson MD on 08/28/2024 8:12 PM Normal [facility] HCG ( test) Ql (U)o n 08-28-2024 Beta HCG ( test) Ql (U) Negative Normal NEG [facility] Comment on above: Performed By: #### 2 106-3 #### [facility] ([id number]) [address] [place] [address] 12681 URN MACROSCOPIC NURon 2023 BILIRUBIN MOLLY Small Abnormal [facility] Comment on above: Performed By: #### N UM #### [facility] ([id number]) [address] [place] [address] 78145 BLOOD/HGB MOLLY Negative Normal NEG [facility] Comment on above: Performed By: #### N UM #### [facility] ([id number]) [address] [place] [address] 31994 GLUCOSE MOLLY Negative Normal [facility] Comment on above: Performed By: #### N UM #### [facility] ([id number]) [address] [place] [address] 77876 KETONES MOLLY Negative Normal [facility] Comment on above: Performed By: #### N UM #### [facility] ([id number]) [address] [place] [address] 26483 LEUKOCYTE ESTERASE MOLLY Negative Normal NEG [facility] Comment on above: Performed By: #### N UM #### [facility] ([id number]) [address] [place] [address] 89217 NITRITE MOLLY Negative Normal NEG [facility] Comment on above: Performed By: #### N UM #### [facility] ([id number]) [address] [place] [address] 38843 PH MOLLY 5.5 Normal 5.0-8.5 [facility] Comment on above: Performed By: #### N UM #### [facility] ([id number]) [address] [place] [address] 54609 PROTEIN MOLLY >=300 Abnormal NEG [facility] Comment on above: Performed By: #### N UM #### [facility] ([id number]) [address] [place] [address] 10236 SPECIFIC GRAVITY MOLLY >=1.030 Normal 1.003-1.035 [facility] Comment on above: Performed By: #### N UM #### [facility] ([id number]) [address] [place] [address] 81277 UROBILINOGEN MOLLY 0.2 eu/dL Normal <1.1 [facility] Comment on above: Performed By: #### N UM #### [facility] ([id number]) [address] [place] [address] 95217 MHPT TRICHOMONAS/WET PREPon 07-01-2024 WET PREP TRIC [...] Unit Blood Type O Pos Unit Number [id number] Status Information Transfused Product ID Red Blood Cells Product Code [id number] Cross Match Result Compatible Unit Blood Type O Pos Unit Number [id number] Status Information Transfused Product ID Red Blood Cells Product Code [id number] Normal [facility] Comment on above: Performed By: #### P RBC ####[facility] [address] [place], [place] [address]Dr. Benoit Diggs CBC AUTO DIFFon 12-21-2022 BASO # 0.1 103/ul Normal 0.0-0.1 [facility] Comment on above: Performed By: #### C BC ####[facility] [address] [place], [place] [address]Dr. Benoit Diggs Basophils/100 WBC (Bld) 1.2 % Normal 0.2-2.0 [facility] Comment on above: Performed By: #### C BC ####[facility] [address] [place], [place] [address]Dr. Benoit Dgigs EO # 0.4 103/ul Normal 0.0-0.7 [facility] Comment on above: Performed By: #### C BC ####[facility] [address] [place], [place] [address]Dr. Benoit Diggs Eosinophils/100 WBC (Bld) 4.5 % Normal 0.9-7.0 [facility] Comment on above: Performed By: #### C BC ####[facility] [address] [place], [place] [address]Dr. Benoit Diggs Erythrocyte distribution width (RBC) [Ratio] 16.6 % Critically high 11.0-15.0 [facility] Comment on above: Performed By: #### C BC ####[facility] [address] [place], [place] [address]Dr. Benoit Diggs Hematocrit (Bld) [Volume fraction] 40.3 % Normal 36.0-48.0 [facility] Comment on above: Performed By: #### C BC ####[facility] [address] [address]Dr. Benoit Diggs Hemoglobin (Bld) [Mass/Vol] 12.6 g/dL Normal 12.0-16.0 [facility] Comment on above: Performed By: #### C BC ####[facility] [address] [place] [address]Dr. Benoit Diggs IG # 0.04 10e3/ul Critically high 0.00-0.03 [facility] Comment on above: Performed By: #### C BC ####[facility] [address] [place] [address]Dr. Benoit Diggs IG % 0.5 % Normal 0.0-0.5 [facility] Comment on above: Performed By: #### C BC ####[facility] [address] [place] [address]Dr. Benoit Diggs LYMPH # 3.0 103/ul Normal 1.2-3.8 [facility] Comment on above: Performed By: #### C BC ####[facility] [address] [place] [address]Dr. Benoit Diggs Lymphocytes/100 WBC (Bld) 36.0 % Normal 20.5-60.0 [facility] Comment on above: Performed By: #### C BC ####[facility] [address] [place] [address]DrJael Diggs MANUAL DIFF REQ NO Normal [facility] Comment on above: Performed By: #### C BC ####[facility] [address] [place] [address]Dr. Benoit Diggs MCH (RBC) [Entitic mass] 25.3 pg Critically low 26.7-34.0 [facility] Comment on above: Performed By: #### C BC ####[facility] [address] [place] [address]Dr. Benoit Diggs MCHC (RBC) [Mass/Vol] 31.3 g/dL Normal 29.9-35.2 [facility] Comment on above: Performed By: #### C BC ####[facility] [address] [place] [id number]. Benoit Diggs MCV (RBC) [Entitic vol] 80.9 fL Critically low 81.0-99.0 [facility] Comment on above: Performed By: #### C BC ####[facility] [address] [place], [place] [address]DrJael Diggs MONO # 0.4 103/ul Normal 0.3-0.8 [facility] Comment on above: Performed By: #### C BC ####[facility] [address] [place], [place] [address]Dr. Benoit Diggs Monocytes/100 WBC (Bld) 4.8 % Normal 1.7-12.0 [facility] Comment on above: Performed By: #### C BC ####[facility] [address] [place], [place] [address]Dr. Benoit Diggs NEUT # 4.4 103/ul Normal 1.4-6.5 [facility] Comment on above: Performed By: #### C BC ####[facility] [address] [place], [place] [address]Dr. Benoit Diggs Neutrophils/100 WBC (Bld) 53.0 % Normal 43.0-75.0 [facility] Comment on above: Performed By: #### C BC ####[facility] [address] [place], [place] [address]Dr. Benoit Diggs Platelet mean volume (Bld) [Entitic vol] 10.8 fL Normal 9.5-13.5 [facility] Comment on above: Performed By: #### C BC ####[facility] [address] [place], [place] [address]Dr. Benoit Diggs PLT 410 103/ul Normal 150-450 [facility] Comment on above: Performed By: #### C BC ####[facility] [address] [place], [place] [address]Dr. Benoit Diggs RBC 4.98 106/ul Normal 4.20-5.40 [facility] Comment on above: Performed By: #### C BC ####[facility] [address] [place] [address]Dr. Benoit Diggs WBC 8.3 103/ul Normal 4.0-11.0 [facility] Comment on above: Performed By: #### C BC ####[facility] [address] [place] [address]Dr. Benoit Diggs GLYCOHEMOGLOBIN A1Con 2022 ADA RECOMMENDATION SEE BELOW Normal [facility] Comment on above: Result Comment: ADA RECOMMENDED LIMIT 4.0 - 6.0 ADA THERAPEUTIC TARGET < 7.0 ACTION SUGGESTED > 7.0 Performed By: #### A 1C ####[facility] [address] [place], [place] [address]Dr. Benoit Diggs Glucose [Mass/Vol] 100 mg/dL Normal [facility] Comment on above: Performed By: #### A 1C ####[facility] [address] [place], [place] [address]Dr. Benoit Diggs HbA1c (Bld) [Mass fraction] 5.1 % Normal 4.5-6.2 [facility] Comment on above: Performed By: #### A 1C ####[facility] [address] [place], [place] [address]Dr. Benoit Digsg LIPID PROFILEon 12-21-2022 CHOL-HDL RATIO NORM SEE BELOW Normal [facility] Comment on above: Result Comment: 3.3 - 4.4 LOW RISK 4.4 - 7.1 AVERAGE RISK 7.1 - 11.0 MODERATE RISK >11.0 HIGH RISK Performed By: #### L IVER, LIPID, BMP, TSH ####[facility] [address] [place] [address]Dr. Benoit Diggs Cholesterol [Mass/Vol] 184 mg/dL Normal <=200 [facility] Comment on above: Performed By: #### L IVER, LIPID, BMP, TSH ####[facility] [address] [place] [address]Dr. Benoit Diggs Cholesterol in HDL [Mass/Vol] 52 mg/dL Normal 40-60 [facility] Comment on above: Performed By: #### L IVER, LIPID, BMP, TSH ####[facility] [address] [place] [address]Dr. Benoit Diggs Cholesterol in LDL [Mass/Vol] 114.8 mg/dL Normal [facility] Comment on above: Performed By: #### L IVER, LIPID, BMP, TSH ####[facility] [address] [place] [address]Dr. Benoit Diggs Cholesterol.total/C holesterol in HDL [Mass ratio] 3.5 {ratio} Normal [facility] Comment on above: Performed By: #### L IVER, LIPID, BMP, TSH ####[facility] [address] [place] [address]Dr. Benoit Diggs HDL NORMAL > or = 60 mg/dl - LOW CARDIOVASCULAR RISK <40 mg/dl - HIGH CARDIOVASCULAR RISK Normal [facility] Comment on above: Performed By: #### L IVER, LIPID, BMP, TSH ####[facility] [address] [place] [address]Dr. Benoit Diggs LDL CALC NORMAL SEE BELOW Normal [facility] Comment on above: Result Comment: <100 mg/dl OPTIMAL 100 - 129 mg/dl NEAR OR ABOVE OPTIMAL 130 - 159 mg/dl BORDERLINE HIGH 160 - 189 mg/dl HIGH >190 mg/dl VERY HIGH Performed By: #### L IVER, LIPID, BMP, TSH ####[facility] [address] [place] [id number]. Benoit Diggs Triglyceride [Mass/Vol] 86 mg/dL Normal <=150 [facility] Comment on above: Performed By: #### L IVER, LIPID, BMP, TSH ####[facility] [address] [place] [address]Dr. Benoit Diggs VLDL CALC 17.2 mg/dL Normal [facility] Comment on above: Performed By: #### L IVER, LIPID, BMP, TSH ####[facility] [address] [place] [address]Dr. Benoit Diggs LIVER PROFILEon 12-21-2022 Albumin [Mass/Vol] 3.3 g/dL Critically low 3.4-5.0 [facility] Comment on above: Performed By: #### L IVER, LIPID, BMP, TSH ####[facility] [address] [place] [address]Dr. Benoit Diggs Albumin/Globulin [Mass ratio] 0.8 {ratio} Normal [facility] Comment on above: Performed By: #### L IVER, LIPID, BMP, TSH ####[facility] [address] [place] [address]Dr. Benoit Diggs ALP [Catalytic activity/Vol] 110 U/L Normal 46-116 [facility] Comment on above: Performed By: #### L IVER, LIPID, BMP, TSH ####[facility] [address] [place], [place] [address]Dr. Benoit Diggs ALT [Catalytic activity/Vol] 25 U/L Normal 14-59 [facility] Comment on above: Performed By: #### L IVER, LIPID, BMP, TSH ####[facility] [address] [place] [address]Dr. Benoit Diggs AST [Catalytic activity/Vol] 20 U/L Normal 15-37 [facility] Comment on above: Performed By: #### L IVER, LIPID, BMP, TSH ####[facility] [address] [place], [place] [address]Dr. Benoit Diggs BILI, CONJUGATED 0.1 mg/dL Normal 0.0-0.2 [facility] Comment on above: Performed By: #### L IVER, LIPID, BMP, TSH ####[facility] [address] [place] [address]Dr. Benoit Diggs Bilirubin [Mass/Vol] 0.4 mg/dL Normal 0.2-1.0 [facility] Comment on above: Performed By: #### L IVER, LIPID, BMP, TSH ####[facility] [address] [place] [address]Dr. Benoit Diggs Globulin (S) [Mass/Vol] 3.9 g/dL Normal [facility] Comment on above: Performed By: #### L IVER, LIPID, BMP, TSH ####[facility] [address] [place] [address]Dr. Benoit Diggs Protein [Mass/Vol] 7.2 g/dL Normal 6.4-8.2 [facility] Comment on above: Performed By: #### L IVER, LIPID, BMP, TSH ####[facility] [address] [place] [id number]. Benoit Diggs PROF CHEM 8 (BAS METB)on Anion gap [Moles/Vol] 13.2 mmol/L Normal [facility] Comment on above: Performed By: #### C BC #### [facility] [address] [address] [address] Benoit Diggs Calcium [Mass/Vol] 9.2 mg/dL Normal 8.5-10.1 [facility] Comment on above: Performed By: #### C BC #### [facility] [address] [place] [address] Dr. Benoit Diggs Chloride [Moles/Vol] 108 mmol/L Critically high 98-107 [facility] Comment on above: Performed By: #### C BC #### [facility] [address] [address] [address] Benoit Diggs CO2 [Moles/Vol] 27.9 mmol/L Normal 21.0-32.0 [facility] Comment on above: Performed By: #### C BC #### [facility] [address] [address] [address] Benoit Diggs Creatinine [Mass/Vol] 0.62 mg/dL Normal 0.55-1.02 [facility] Comment on above: Performed By: #### C BC #### [facility] [address] [address] [address] Benoit Diggs EGFR-AF FILIPINO >60 Normal >=60 [facility] Comment on above: Performed By: #### C BC #### [facility] [address] [address] [address] Benoit Diggs EGFR-NON AF FILIPINO >60 Normal >=60 [facility] Comment on above: Performed By: #### C BC #### [facility] [address] [place] [address] Dr. Benoit Diggs Glucose [Mass/Vol] 92 mg/dL Normal 74-106 [facility] Comment on above: Performed By: #### C BC #### [facility] [address] [place] [address] Dr. Benoit Diggs Potassium [Moles/Vol] 4.1 mmol/L Normal 3.5-5.1 [facility] Comment on above: Performed By: #### C BC #### [facility] [address] [place] [address] Dr. Benoit Diggs Sodium [Moles/Vol] 145 mmol/L Normal 136-145 [facility] Comment on above: Performed By: #### C BC #### [facility] [address] [place] [address] Dr. Benoit Diggs Urea nitrogen [Mass/Vol] 8.0 mg/dL Normal 7.0-18.0 [facility] Comment on above: Performed By: #### C BC #### [facility] [address] [place] [address] Dr. Benoit Diggs Urea nitrogen/Creatinine [Mass ratio] 12.9 mg/mg Normal [facility] Comment on above: Performed By: #### C BC #### [facility] [address] [place] [address] Dr. Benoit Diggs TSHon 12-21-2022 TSH 1.318 uIU/mL Normal 0.358-3.740 [facility] Comment on above: Performed By: #### C BC #### [facility] [address] [place] [address] Dr. Benoit Diggs CBC AUTO DIFFon 12-04-2022 BASO # 0.1 103/ul Normal 0.0-0.1 [facility] Comment on above: Performed By: #### C BC #### [facility] [address] [place] [address] Dr. Benoit Diggs Basophils/100 WBC (Bld) 0.7 % Normal 0.2-2.0 [facility] Comment on above: Performed By: #### C BC #### [facility] [address] [place] [address] Dr. Benoit Diggs EO # 0.4 103/ul Normal 0.0-0.7 [facility] Comment on above: Performed By: #### C BC #### [facility] [address] [place] [address] Dr. Benoit Diggs Eosinophils/100 WBC (Bld) 3.8 % Normal 0.9-7.0 [facility] Comment on above: Performed By: #### C BC #### [facility] [address] [place] [address] Dr. Benoit Diggs Erythrocyte distribution width (RBC) [Ratio] 15.2 % Critically high 11.0-15.0 [facility] Comment on above: Performed By: #### C BC #### [facility] [address] [place] [address] Dr. Benoit Diggs Hematocrit (Bld) [Volume fraction] 28.7 % Critically low 36.0-48.0 [facility] Comment on above: Performed By: #### C BC #### [facility] [address] [place] [address] Dr. Benoit Diggs Hemoglobin (Bld) [Mass/Vol] 9.1 g/dL Critically low 12.0-16.0 [facility] Comment on above: Performed By: #### C BC #### [facility] [address] [place] [address] Dr. Benoit Diggs IG # 0.05 10e3/ul Critically high 0.00-0.03 [facility] Comment on above: Performed By: #### C BC #### [facility] [address] [place] [address] Dr. Benoit Diggs IG % 0.5 % Normal 0.0-0.5 [facility] Comment on above: Performed By: #### C BC #### [facility] [address] [place] [address] Dr. Benoit Diggs LYMPH # 3.3 103/ul Normal 1.2-3.8 [facility] Comment on above: Performed By: #### C BC #### [facility] [address] [place] [address] Dr. Benoit Diggs Lymphocytes/100 WBC (Bld) 31.8 % Normal 20.5-60.0 [facility] Comment on above: Performed By: #### C BC #### [facility] [address] [place] [address] Dr. Benoit Diggs MANUAL DIFF REQ NO Normal [facility] Comment on above: Performed By: #### C BC #### [facility] [address] [place] [address] Dr. Benoit Diggs MCH (RBC) [Entitic mass] 25.3 pg Critically low 26.7-34.0 [facility] Comment on above: Performed By: #### C BC #### [facility] [address] [place] [address] Dr. Benoit Diggs MCHC (RBC) [Mass/Vol] 31.7 g/dL Normal 29.9-35.2 [facility] Comment on above: Performed By: #### C BC #### [facility] [address] [place] [address] Dr. Benoit Diggs MCV (RBC) [Entitic vol] 79.9 fL Critically low 81.0-99.0 [facility] Comment on above: Performed By: #### C BC #### [facility] [address] [place] [address] Dr. Benoit Diggs MONO # 0.7 103/ul Normal 0.3-0.8 [facility] Comment on above: Performed By: #### C BC #### [facility] [address] [place] [address] Dr. Benoit Diggs Monocytes/100 WBC (Bld) 7.2 % Normal 1.7-12.0 [facility] Comment on above: Performed By: #### C BC #### [facility] [address] [place] [address] Dr. Benoit Diggs NEUT # 5.8 103/ul Normal 1.4-6.5 [facility] Comment on above: Performed By: #### C BC #### [facility] [address] [place] [address] Dr. Benoit Diggs Neutrophils/100 WBC (Bld) 56.0 % Normal 43.0-75.0 [facility] Comment on above: Performed By: #### C BC #### [facility] [address] [place] [address] Dr. Benoit Diggs Platelet mean volume (Bld) [Entitic vol] 10.5 fL Normal 9.5-13.5 [facility] Comment on above: Performed By: #### C BC #### [facility] [address] [place] [address] Dr. Benoit Diggs PLT 152 103/ul Normal 150-450 [facility] Comment on above: Performed By: #### C BC #### [facility] [address] [place] [address] Dr. Benoit Diggs RBC 3.59 106/ul Critically low 4.20-5.40 [facility] Comment on above: Performed By: #### C BC #### [facility] [address] [place] [address] Dr. Benoit Diggs WBC 10.3 103/ul Normal 4.0-11.0 [facility] Comment on above: Performed By: #### C BC #### [facility] [address] [place] [address] Dr. Benoit Diggs CBC AUTO DIFFon 12-03-2022 BASO # 0.0 103/ul Normal 0.0-0.1 [facility] Comment on above: Performed By: #### C BC #### [facility] [address] [place] [address] Dr. Benoit Diggs Basophils/100 WBC (Bld) 0.4 % Normal 0.2-2.0 [facility] Comment on above: Performed By: #### C BC #### [facility] [address] [place] [address] Dr. Benoit Diggs EO # 0.3 103/ul Normal 0.0-0.7 [facility] Comment on above: Performed By: #### C BC #### [facility] [address] [place] [address] Dr. Benoit Diggs Eosinophils/100 WBC (Bld) 3.1 % Normal 0.9-7.0 [facility] Comment on above: Performed By: #### C BC #### [facility] [address] [place] [address] Dr. Benoit Diggs Erythrocyte distribution width (RBC) [Ratio] 15.5 % Critically high 11.0-15.0 [facility] Comment on above: Performed By: #### C BC #### [facility] [address] [place] [address] Dr. Benoit Diggs Hematocrit (Bld) [Volume fraction] 22.0 % Critically low 36.0-48.0 [facility] Comment on above: Performed By: #### C BC #### [facility] [address] [place] [address] Dr. Benoit Diggs Hemoglobin (Bld) [Mass/Vol] 6.8 g/dL Critically low 12.0-16.0 [facility] Comment on above: Performed By: #### C BC #### [facility] [address] [place] [address] Dr. Benoit Diggs IG # 0.05 10e3/ul Critically high 0.00-0.03 [facility] Comment on above: Performed By: #### C BC #### [facility] [address] [place] [address] Dr. Benoit Diggs IG % 0.5 % Normal 0.0-0.5 [facility] Comment on above: Performed By: #### C BC #### [facility] [address] [place] [address] Dr. Benoit Diggs LYMPH # 2.9 103/ul Normal 1.2-3.8 [facility] Comment on above: Performed By: #### C BC #### [facility] [address] [place] [address] Dr. Benoit Diggs Lymphocytes/100 WBC (Bld) 31.0 % Normal 20.5-60.0 [facility] Comment on above: Performed By: #### C BC #### [facility] [address] [place] [address] Dr. Benoit Diggs MANUAL DIFF REQ NO Normal [facility] Comment on above: Performed By: #### C BC #### [facility] [address] [place] [address] Dr. Benoit Diggs MCH (RBC) [Entitic mass] 24.6 pg Critically low 26.7-34.0 [facility] Comment on above: Performed By: #### C BC #### [facility] [address] [place] [address] Dr. Benoit Diggs MCHC (RBC) [Mass/Vol] 30.9 g/dL Normal 29.9-35.2 [facility] Comment on above: Performed By: #### C BC #### [facility] [address] [place] [address] Dr. Benoit Diggs MCV (RBC) [Entitic vol] 79.7 fL Critically low 81.0-99.0 [facility] Comment on above: Performed By: #### C BC #### [facility] [address] [place] [address] Dr. Benoit Diggs MONO # 0.8 103/ul Normal 0.3-0.8 [facility] Comment on above: Performed By: #### C BC #### [facility] [address] [place] [address] Dr. Benoit Diggs Monocytes/100 WBC (Bld) 7.9 % Normal 1.7-12.0 [facility] Comment on above: Performed By: #### C BC #### [facility] [address] [place] [address] Dr. Benoit Diggs NEUT # 5.4 103/ul Normal 1.4-6.5 [facility] Comment on above: Performed By: #### C BC #### [facility] [address] [place] [address] Dr. Benoit Diggs Neutrophils/100 WBC (Bld) 57.1 % Normal 43.0-75.0 [facility] Comment on above: Performed By: #### C BC #### [facility] [address] [address] [address] Benoit Diggs Platelet mean volume (Bld) [Entitic vol] 11.9 fL Normal 9.5-13.5 [facility] Comment on above: Performed By: #### C BC #### [facility] [address] [address] [address] Benoit Diggs PLT 180 103/ul Normal 150-450 [facility] Comment on above: Performed By: #### C BC #### [facility] [address] [address] [address] Benoit Diggs RBC 2.76 106/ul Critically low 4.20-5.40 [facility] Comment on above: Performed By: #### C BC #### [facility] [address] [address] [address] Benoit Diggs WBC 9.5 103/ul Normal 4.0-11.0 [facility] Comment on above: Performed By: #### C BC #### [facility] [address] [address] [address] Benoit Diggs AMNISUREon 12-01-2022 AMNISURE Negative Normal NEGATIVE [facility] Comment on above: Performed By: #### C BC #### [facility] [address] [address] [address] Benoit Diggs CBC AUTO DIFFon 12-01-2022 BASO # 0.1 103/ul Normal 0.0-0.1 [facility] Comment on above: Performed By: #### C BC ####[facility] [address] [address]Dr. Benoit Diggs Basophils/100 WBC (Bld) 0.6 % Normal 0.2-2.0 [facility] Comment on above: Performed By: #### C BC ####[facility] [address] [address]Dr. Benoit Diggs EO # 0.4 103/ul Normal 0.0-0.7 [facility] Comment on above: Performed By: #### C BC ####[facility] [address] [id number]. Benoit Diggs Eosinophils/100 WBC (Bld) 3.5 % Normal 0.9-7.0 [facility] Comment on above: Performed By: #### C BC ####[facility] [address] [address]Dr. Benoit Diggs Erythrocyte distribution width (RBC) [Ratio] 15.4 % Critically high 11.0-15.0 [facility] Comment on above: Performed By: #### C BC ####[facility] [address] [place], [place] [address]Dr. Benoit Diggs Hematocrit (Bld) [Volume fraction] 26.4 % Critically low 36.0-48.0 [facility] Comment on above: Performed By: #### C BC ####[facility] [address] [place], [place] [address]Dr. Benoit Diggs Hemoglobin (Bld) [Mass/Vol] 8.4 g/dL Critically low 12.0-16.0 [facility] Comment on above: Performed By: #### C BC ####[facility] [address] [place], [place] [address]Dr. Benoit Diggs IG # 0.04 10e3/ul Critically high 0.00-0.03 [facility] Comment on above: Performed By: #### C BC ####[facility] [address] [place], [place] [address]Dr. Benoit Diggs IG % 0.4 % Normal 0.0-0.5 [facility] Comment on above: Performed By: #### C BC ####[facility] [address] [place], [place] [address]Dr. Benoit Diggs LYMPH # 2.8 103/ul Normal 1.2-3.8 [facility] Comment on above: Performed By: #### C BC ####[facility] [address] [place], [place] [address]Dr. Benoit Diggs Lymphocytes/100 WBC (Bld) 26.9 % Normal 20.5-60.0 [facility] Comment on above: Performed By: #### C BC ####[facility] [address] [id number]. Benoit Digsg MANUAL DIFF REQ NO Normal [facility] Comment on above: Performed By: #### C BC ####[facility] [address] [id number]. Benoit Diggs MCH (RBC) [Entitic mass] 24.7 pg Critically low 26.7-34.0 [facility] Comment on above: Performed By: #### C BC ####[facility] [address] [id number]. Benoit Diggs MCHC (RBC) [Mass/Vol] 31.8 g/dL Normal 29.9-35.2 [facility] Comment on above: Performed By: #### C BC ####[facility] [address] [place], [place] [address]Dr. Benoit Dontae MCV (RBC) [Entitic vol] 77.6 fL Critically low 81.0-99.0 [facility] Comment on above: Performed By: #### C BC ####[facility] [address] [place], [place] [id number]. Benoit Diggs MONO # 0.7 103/ul Normal 0.3-0.8 [facility] Comment on above: Performed By: #### C BC ####[facility] [address] [address]Dr. Karyaurora Diggs Monocytes/100 WBC (Bld) 6.2 % Normal 1.7-12.0 [facility] Comment on above: Performed By: #### C BC ####[facility] [address] [address]Dr. Benoit Diggs NEUT # 6.5 103/ul Normal 1.4-6.5 [facility] Comment on above: Performed By: #### C BC ####[facility] [address] [place], [place] [id number]. Karyaurora Diggs Neutrophils/100 WBC (Bld) 62.4 % Normal 43.0-75.0 [facility] Comment on above: Performed By: #### C BC ####[facility] [address] [id number]. Benoit Diggs Platelet mean volume (Bld) [Entitic vol] 11.0 fL Normal 9.5-13.5 [facility] Comment on above: Performed By: #### C BC ####[facility] [address] [id number]. Benoit Diggs PLT 215 103/ul Normal 150-450 [facility] Comment on above: Performed By: #### C BC ####[facility] [address] [address]Dr. Benoit Diggs RBC 3.40 106/ul Critically low 4.20-5.40 [facility] Comment on above: Performed By: #### C BC ####[facility] [address] [address]Dr. Benoit Diggs WBC 10.4 103/ul Normal 4.0-11.0 [facility] Comment on above: Performed By: #### C BC ####[facility] [address] [address]Dr. Benoit Diggs DRUG SCREEN RAPID (URINE)on 12-01-2022 AMP Negative Normal NEGATIVE [facility] Comment on above: Performed By: #### C BC #### [facility] [address] [address] [address] Benoit Diggs BAR Negative Normal NEGATIVE [facility] Comment on above: Performed By: #### C BC #### [facility] [address] [address] [address] Benoit Diggs BUP Negative Normal NEGATIVE [facility] Comment on above: Performed By: #### C BC #### [facility] [address] [address] [address] Benoit Diggs BZO Negative Normal NEGATIVE [facility] Comment on above: Performed By: #### C BC #### [facility] [address] [address] [address] Benoit Diggs JOSE MANUEL Negative Normal NEGATIVE [facility] Comment on above: Performed By: #### C BC #### [facility] [address] [place] [address] Dr. Benoit Diggs CUT-OFFS SEE BELOW Normal [facility] Comment on above: Result Comment: AMP [...] ng/mL Performed By: #### C BC #### [facility] [address] [place] [address] Dr. Benoit Diggs DRUG CUT HEADER DRUG CLASS TEST SYSTEM CUT-OFF CONCENTRATIONS ARE FOLLOWS: Normal [facility] Comment on above: Performed By: #### C BC #### [facility] [address] [place] [address] Dr. Benoit Diggs mAMP Negative Normal NEGATIVE [facility] Comment on above: Performed By: #### C BC #### [facility] [address] [place] [address] Dr. Benoit Diggs MTD Negative Normal NEGATIVE [facility] Comment on above: Performed By: #### C BC #### [facility] [address] [place] [address] Dr. Benoit Diggs OPI Negative Normal NEGATIVE [facility] Comment on above: Performed By: #### C BC #### [facility] [address] [place] [address] Dr. Benoit Diggs OXY Negative Normal NEGATIVE [facility] Comment on above: Performed By: #### C BC #### [facility] [address] [place] [address] Dr. Benoit Diggs PCP Negative Normal NEGATIVE [facility] Comment on above: Performed By: #### C BC #### [facility] [address] [place] [address] Dr. Benoit Diggs PPX Negative Normal NEGATIVE [facility] Comment on above: Performed By: #### C BC #### [facility] [address] [place] [address] Dr. Benoit Diggs TCA Negative Normal NEGATIVE [facility] Comment on above: Performed By: #### C BC #### [facility] [address] [place] [address] Dr. Benoit Diggs THC Negative Normal NEGATIVE [facility] Comment on above: Performed By: #### C BC #### [facility] [address] [place] [address] Dr. Benoit Diggs TYPE AND SCREENon 12-01-2022 TYPE AND SCREEN Negative Normal [facility] Comment on above: Performed By: #### T NS #### [facility] [address] [place] [address] Dr. Benoit Diggs UA (CLEAN/CATCH) TITLE EXAMINER/MICRO I F IND.on 12-01-2022 Bilirubin Ql (U) Negative Normal NEGATIVE [facility] Comment on above: Performed By: #### C BC #### [facility] [address] [place] [address] Dr. Benoit Diggs Clarity (U) CLEAR Normal CLEAR [facility] Comment on above: Performed By: #### C BC #### [facility] [address] [place] [address] Dr. Benoit Diggs Color (U) YELLOW Normal YELLOW [facility] Comment on above: Performed By: #### C BC #### [facility] [address] [place] [address] Dr. Benoit Diggs Glucose Ql (U) Negative Normal NEGATIVE [facility] Comment on above: Performed By: #### C BC #### [facility] [address] [place] [address] Dr. Benoit Diggs Hemoglobin Ql (U) Negative Normal NEGATIVE [facility] Comment on above: Performed By: #### C BC #### [facility] [address] [place] [address] Dr. Benoit Diggs Ketones Ql (U) Negative Normal NEGATIVE [facility] Comment on above: Performed By: #### C BC #### [facility] [address] [place] [address] Dr. Benoit Diggs LEUKOCYTES Negative Normal NEGATIVE [facility] Comment on above: Performed By: #### C BC #### [facility] [address] [place] [address] Dr. Benoit Diggs Nitrite Ql (U) Negative Normal NEGATIVE [facility] Comment on above: Performed By: #### C BC #### [facility] [address] [place] [address] Dr. Benoit Diggs pH (U) 6.0 [pH] Normal 5-9 [facility] Comment on above: Performed By: #### C BC #### [facility] [address] [place] [address] Dr. Benoit Diggs SPEC GRAVITY 1.010 Normal 1.005-<=1.025 [facility] Comment on above: Performed By: #### C BC #### [facility] [address] [place] [address] Dr. Benoit Diggs UA PROTEIN TRACE Normal NEGATIVE/ TRACE [facility] Comment on above: Performed By: #### C BC #### [facility] [address] [place] [address] Dr. Benoit Diggs UR MICRO IND NOT INDICATED Normal [facility] Comment on above: Performed By: #### C BC #### [facility] [address] [place] [address] Dr. Benoit Diggs Urobilinogen Qn (U) 4 {Nadege'U}/dL Abnormal 0.2 - 1.0 [facility] Comment on above: Performed By: #### C BC #### [facility] [address] [place] [address] Dr. Benoit Diggs CULTURE URINEon 11-29-2022 CULTURE URINE Culture Observations: MODERATE GROWTH OF MIXED GENITAL RIZWAN. NO POTENTIAL PATHOGENS SEEN. Normal [facility] Comment on above: Performed By: #### U RCX #### [facility] [address] [place] [address] Dr. Benoit Diggs UA (CLEAN/CATCH) TITLE EXAMINER/MICRO I F IND.on 11-29-2022 Bilirubin Ql (U) SMALL Abnormal NEGATIVE [facility] Comment on above: Performed By: #### C BC #### [facility] [address] [place] [address] Dr. Benoit Diggs Clarity (U) CLEAR Normal CLEAR [facility] Comment on above: Performed By: #### C BC #### [facility] [address] [place] [address] Dr. Benoit Diggs Color (U) DK. ORANGE Abnormal YELLOW [facility] Comment on above: Performed By: #### C BC #### [facility] [address] [place] [address] Dr. Benoit Diggs Glucose Ql (U) Negative Normal NEGATIVE [facility] Comment on above: Performed By: #### C BC #### [facility] [address] [place] [address] Dr. Benoit Diggs Hemoglobin Ql (U) Negative Normal NEGATIVE [facility] Comment on above: Performed By: #### C BC #### [facility] [address] [place] [address] Dr. Benoit Diggs Ketones Ql (U) TRACE Abnormal NEGATIVE [facility] Comment on above: Performed By: #### C BC #### [facility] [address] [place] [address] Dr. Benoit Diggs LEUKOCYTES SMALL Abnormal NEGATIVE [facility] Comment on above: Performed By: #### C BC #### [facility] [address] [place] [address] Dr. Benoit Diggs Nitrite Ql (U) Negative Normal NEGATIVE [facility] Comment on above: Performed By: #### C BC #### [facility] [address] [place] [address] Dr. Benoit Diggs pH (U) 5.5 [pH] Normal 5-9 [facility] Comment on above: Performed By: #### C BC #### [facility] [address] [place] [address] Dr. Benoit Diggs SPEC GRAVITY >=1.030 Abnormal 1.005-<=1.025 [facility] Comment on above: Performed By: #### C BC #### [facility] [address] [place] [address] Dr. Benoit Diggs UA PROTEIN 100 mg/dl Abnormal NEGATIVE/ TRACE [facility] Comment on above: Performed By: #### C BC #### [facility] [address] [place] [address] Dr. Benoit Diggs UR MICRO IND INDICATED Normal [facility] Comment on above: Performed By: #### C BC #### [facility] [address] [place] [address] Dr. Benoit Diggs Urobilinogen Qn (U) 8 {Nadege'U}/dL Abnormal 0.2 - 1.0 [facility] Comment on above: Performed By: #### C BC #### [facility] [address] [place] [address] Dr. Benoit Diggs URINE MICROSCOPIC ONLYon BACTERIA MODERATE Abnormal NONE SEEN [facility] Comment on above: Performed By: #### C BC #### [facility] [address] [place] [address] Dr. Benoit Diggs Bacteria identified Cx Nom (U) INDICATED Normal [facility] Comment on above: Performed By: #### C BC #### [facility] [address] [place] [address] Dr. Benoit Diggs CAST NONE SEEN Normal NONE SEEN [facility] Comment on above: Performed By: #### C BC #### [facility] [address] [place] [address] Dr. Benoit Diggs Crystals LM Nom (Urine sed) NONE SEEN Normal NONE SEEN [facility] Comment on above: Performed By: #### C BC #### [facility] [address] [place] [address] Dr. Benoit Diggs Epithelial cells LM Ql (Urine sed) MANY Abnormal NONE SEEN /RARE [facility] Comment on above: Performed By: #### C BC #### [facility] [address] [place] [address] Dr. Benoit Diggs MUCOUS SMALL Abnormal NONE SEEN [facility] Comment on above: Performed By: #### C BC #### [facility] [address] [place] [address] Dr. Benoit Diggs RBC 5-10 Abnormal 0-2 [facility] Comment on above: Performed By: #### C BC #### [facility] [address] [place] [address] Dr. Benoit Diggs WBC 20-50 Abnormal NONE SEEN [facility] Comment on above: Performed By: #### C BC #### [facility] [address] [place] [address] Dr. Benoit Diggs GROUP B STREP CULTUREon 10-22 S. agalactiae Ag Ql (Unsp spec) Culture Observations: NEGATIVE FOR GROUP B STREPTOCOCCUS. Normal [facility] Comment on above: Performed By: #### G BSCX #### [facility] [address] [place] [address] Dr. Benoit Diggs CBC AUTO DIFFon 09-22-2022 BASO # 0.0 103/ul Normal 0.0-0.1 [facility] Comment on above: Performed By: #### C BC #### [facility] [address] [place] [address] Dr. Benoit Diggs Basophils/100 WBC (Bld) 0.3 % Normal 0.2-2.0 [facility] Comment on above: Performed By: #### C BC #### [facility] [address] [place] [address] Dr. Benoit Diggs EO # 0.1 103/ul Normal 0.0-0.7 [facility] Comment on above: Performed By: #### C BC #### [facility] [address] [place] [address] Dr. Benoit Diggs Eosinophils/100 WBC (Bld) 2.0 % Normal 0.9-7.0 [facility] Comment on above: Performed By: #### C BC #### [facility] [address] [place] [address] Dr. Benoit Diggs Erythrocyte distribution width (RBC) [Ratio] 12.7 % Normal 11.0-15.0 [facility] Comment on above: Performed By: #### C BC #### [facility] [address] [address] [address] Benoit Diggs Hematocrit (Bld) [Volume fraction] 30.6 % Critically low 36.0-48.0 [facility] Comment on above: Performed By: #### C BC #### [facility] [address] [address] [address] Benoit Diggs Hemoglobin (Bld) [Mass/Vol] 10.1 g/dL Critically low 12.0-16.0 [facility] Comment on above: Performed By: #### C BC #### [facility] [address] [place] [address] Dr. Benoit Diggs IG # 0.03 10e3/ul Normal 0.00-0.03 [facility] Comment on above: Performed By: #### C BC #### [facility] [address] [place] [address] Dr. Benoit Diggs IG % 0.5 % Normal 0.0-0.5 [facility] Comment on above: Performed By: #### C BC #### [facility] [address] [address] [address] Benoit Diggs LYMPH # 0.6 103/ul Critically low 1.2-3.8 [facility] Comment on above: Performed By: #### C BC #### [facility] [address] [place] [address] Dr. Benoit Diggs Lymphocytes/100 WBC (Bld) 10.7 % Critically low 20.5-60.0 [facility] Comment on above: Performed By: #### C BC #### [facility] [address] [address] [address] Benoit Diggs MANUAL DIFF REQ NO Normal [facility] Comment on above: Performed By: #### C BC #### [facility] [address] [place] [address] Dr. Benoit Diggs MCH (RBC) [Entitic mass] 28.9 pg Normal 26.7-34.0 [facility] Comment on above: Performed By: #### C BC #### [facility] [address] [address] [address] Benoit Diggs MCHC (RBC) [Mass/Vol] 33.0 g/dL Normal 29.9-35.2 [facility] Comment on above: Performed By: #### C BC #### [facility] [address] [place] [address] Dr. Benoit Diggs MCV (RBC) [Entitic vol] 87.4 fL Normal 81.0-99.0 [facility] Comment on above: Performed By: #### C BC #### [facility] [address] [place] [address] Dr. Benoit Diggs MONO # 0.6 103/ul Normal 0.3-0.8 [facility] Comment on above: Performed By: #### C BC #### [facility] [address] [place] [address] Dr. Benoit Diggs Monocytes/100 WBC (Bld) 10.9 % Normal 1.7-12.0 [facility] Comment on above: Performed By: #### C BC #### [facility] [address] [place] [address] Dr. Benoit Diggs NEUT # 4.4 103/ul Normal 1.4-6.5 [facility] Comment on above: Performed By: #### C BC #### [facility] [address] [place] [address] Dr. Benoit Diggs Neutrophils/100 WBC (Bld) 75.6 % Critically high 43.0-75.0 [facility] Comment on above: Performed By: #### C BC #### [facility] [address] [place] [address] Dr. Benoit Diggs Platelet mean volume (Bld) [Entitic vol] 10.9 fL Normal 9.5-13.5 [facility] Comment on above: Performed By: #### C BC #### [facility] [address] [place] [address] Dr. Benoit Diggs PLT 191 103/ul Normal 150-450 [facility] Comment on above: Performed By: #### C BC #### [facility] [address] [place] [address] Dr. Benoit Diggs RBC 3.50 106/ul Critically low 4.20-5.40 [facility] Comment on above: Performed By: #### C BC #### [facility] [address] [place] [address] Dr. Benoit Diggs WBC 5.9 103/ul Normal 4.0-11.0 [facility] Comment on above: Performed By: #### C BC #### [facility] [address] [place] [address] Dr. Benoit Diggs CULTURE URINEon 09-22-2022 CULTURE URINE Culture Observations: HEAVY GROWTH OF MIXED GENITAL RIZWAN. NO POTENTIAL PATHOGENS SEEN. Normal [facility] Comment on above: Performed By: #### U RCX #### [facility] [address] [place] [address] Dr. Benoit Diggs ER URINE PROFILEon Bilirubin Ql (U) Negative Normal NEGATIVE [facility] Comment on above: Performed By: #### H IV12 #### [facility] [address] [place] [address] Dr. Benoit Diggs Clarity (U) CLEAR Normal CLEAR [facility] Comment on above: Performed By: #### H IV12 #### [facility] [address] [place] [address] Dr. Benoit Diggs Color (U) YELLOW Normal YELLOW [facility] Comment on above: Performed By: #### H IV12 #### [facility] [address] [place] [address] Dr. Benoit VELA A micrscopic examination will be performed if indicated. Normal [facility] Comment on above: Performed By: #### H IV12 #### [facility] [address] [place] [address] Dr. Benoit Diggs Glucose Ql (U) Negative Normal NEGATIVE [facility] Comment on above: Performed By: #### H IV12 #### [facility] [address] [place] [address] Dr. Benoit Diggs Hemoglobin Ql (U) Negative Normal NEGATIVE [facility] Comment on above: Performed By: #### H IV12 #### [facility] [address] [address] [address] Bneoit Diggs Ketones Ql (U) 15 mg/dl Abnormal NEGATIVE [facility] Comment on above: Performed By: #### H IV12 #### [facility] [address] [place] [address] Dr. Benoit Diggs LEUKOCYTES Negative Normal NEGATIVE [facility] Comment on above: Performed By: #### H IV12 #### [facility] [address] [address] [address] Benoit Diggs Nitrite Ql (U) Negative Normal NEGATIVE [facility] Comment on above: Performed By: #### H IV12 #### [facility] [address] [place] [address] Dr. Benoit Diggs pH (U) 6.5 [pH] Normal 5-9 [facility] Comment on above: Performed By: #### H IV12 #### [facility] [address] [place] [address] Dr. Benoit Diggs SPEC GRAVITY 1.025 Normal 1.005-<=1.025 [facility] Comment on above: Performed By: #### H IV12 #### [facility] [address] [place] [address] Dr. Benoit Diggs UA PROTEIN TRACE Normal NEGATIVE/ TRACE [facility] Comment on above: Performed By: #### H IV12 #### [facility] [address] [place] [address] Dr. Benoit Diggs UR MICRO IND INDICATED Normal [facility] Comment on above: Performed By: #### H IV12 #### [facility] [address] [place] [address] Dr. Benoit Diggs Urobilinogen Qn (U) 1.0 {Nadege'U}/dL Normal 0.2 - 1. 0 [facility] Comment on above: Performed By: #### H IV12 #### [facility] [address] [place] [address] Dr. Benoit Diggs INFLUENZA A AND B AGon 09-22 INFLUANEGH SEE BELOW Normal [facility] Comment on above: Result Comment: Nega tive for Flu A protein angiten. Infection due to Flu A cannot be ruled out. Flu A angiten in the sample may be below the detection limit of the test. Performed By: #### H IV12 #### [facility] [address] [place] [address] Dr. Benoit Dig[facility] Normal [facility] Comment on above: Result Comment: Nega tive for Flu B protein antigen. Infection due to Flu B cannot be ruled out. Flu B antigen in the sample may be below the detection limit of the test. Performed By: #### H IV12 #### [facility] [address] [place] [address] Dr. Benoit Diggs INFLUENZA A AG Negative Normal NEGATIVE SEE COMMENT [facility] Comment on above: Performed By: #### H IV12 #### [facility] [address] [place] [address] Dr. Benoit Diggs INFLUENZA B AG Negative Normal NEGATIVE SEE COMMENT [facility] Comment on above: Performed By: #### H IV12 #### [facility] [address] [place] [address] Dr. Benoit Diggs INTERNAL CONTROLS Within Normal Limits Normal Wi thin Normal Limits [facility] Comment on above: Performed By: #### H IV12 #### [facility] [address] [place] [address] Dr. Benoit Diggs PROF CHEM 8 (BAS METB)on Anion gap [Moles/Vol] 11.6 mmol/L Normal [facility] Comment on above: Performed By: #### C BC #### [facility] [address] [place] [address] Dr. Benoit Diggs Calcium [Mass/Vol] 8.2 mg/dL Critically low 8.5-10.1 [facility] Comment on above: Performed By: #### C BC #### [facility] [address] [place] [address] Dr. Benoit Diggs Chloride [Moles/Vol] 100 mmol/L Normal 98-107 [facility] Comment on above: Performed By: #### C BC #### [facility] [address] [address] [address] Benoit Diggs CO2 [Moles/Vol] 23.9 mmol/L Normal 21.0-32.0 [facility] Comment on above: Performed By: #### C BC #### [facility] [address] [address] [address] Benoit Diggs Creatinine [Mass/Vol] 0.48 mg/dL Critically low 0.55-1.02 [facility] Comment on above: Performed By: #### C BC #### [facility] [address] [address] [address] Benoit Diggs EGFR-AF FILIPINO >60 Normal >=60 [facility] Comment on above: Performed By: #### C BC #### [facility] [address] [place] [address] Dr. Benoit Diggs EGFR-NON AF FILIPINO >60 Normal >=60 [facility] Comment on above: Performed By: #### C BC #### [facility] [address] [address] [address] Benoit Diggs Glucose [Mass/Vol] 94 mg/dL Normal 74-106 [facility] Comment on above: Performed By: #### C BC #### [facility] [address] [address] [address] Benoit Diggs Potassium [Moles/Vol] 3.5 mmol/L Normal 3.5-5.1 [facility] Comment on above: Performed By: #### C BC #### [facility] [address] [address] [address] Benoit Diggs Sodium [Moles/Vol] 132 mmol/L Critically low 136-145 [facility] Comment on above: Performed By: #### C BC #### [facility] [address] [address] [address] Benoit Diggs Urea nitrogen [Mass/Vol] 6.0 mg/dL Critically low 7.0-18.0 [facility] Comment on above: Performed By: #### C BC #### [facility] [address] [address] [address] Benoit Diggs Urea nitrogen/Creatinine [Mass ratio] 12.5 mg/mg Normal [facility] Comment on above: Performed By: #### C BC #### [facility] [address] [address] [address] Benoit Diggs RESPIRATORY PANEL PLUSon Adenovirus Not detected Normal NOT DETECTED [facility] Comment on above: Performed By: #### R SPLUS ####[facility] [address] [address]Dr. Benoit Diggs B. Parapertusis Not detected Normal NOT DETECTED [facility] Comment on above: Performed By: #### R SPLUS ####[facility] [address] [place], [place] [address]Dr. Benoit Diggs B. Pertussis Not detected Normal NOT DETECTED [facility] Comment on above: Performed By: #### R SPLUS ####[facility] [address] [place], [place] [address]Dr. Benoit Diggs Chlamydia Pneumoniae Not detected Normal NOT DETECTED [facility] Comment on above: Performed By: #### R SPLUS ####[facility] [address] [place], [place] [address]Dr. Benoit Diggs Coronavirus 229E Not detected Normal NOT DETECTED [facility] Comment on above: Performed By: #### R SPLUS ####[facility] [address] [place], [place] [address]Dr. Benoit Diggs Coronavirus HKU1 Not detected Normal NOT DETECTED [facility] Comment on above: Performed By: #### R SPLUS ####[facility] [address] [address]Dr. Benoit Diggs Coronavirus NL63 Not detected Normal NOT DETECTED [facility] Comment on above: Performed By: #### R SPLUS ####[facility] [address] [address]Dr. Benoit Diggs Coronavirus OC43 Not detected Normal NOT DETECTED [facility] Comment on above: Performed By: #### R SPLUS ####[facility] [address] [address]Dr. Benoit Diggs Influenza A H1 2009 Detected Abnormal NOT DETECTED [facility] Comment on above: Performed By: #### R SPLUS ####[facility] [address] [address]Dr. Benoit Diggs Influenza A H3 Not detected Normal NOT DETECTED [facility] Comment on above: Performed By: #### R SPLUS ####[facility] [address] [place], [place] [address]Dr. Benoit Diggs Influenza B Not detected Normal NOT DETECTED [facility] Comment on above: Performed By: #### R SPLUS ####[facility] [address] [place], [place] [address]Dr. Benoit Diggs Metapneumovirus Not detected Normal NOT DETECTED [facility] Comment on above: Performed By: #### R SPLUS ####[facility] [address] [place], [place] [address]Dr. Benoit Diggs Mycoplas. Pneumoniae Not detected Normal NOT DETECTED [facility] Comment on above: Performed By: #### R SPLUS ####[facility] [address] [place], [place] [address]Dr. Benoit Diggs Parainfluenza 1 Not detected Normal NOT DETECTED [facility] Comment on above: Performed By: #### R SPLUS ####[facility] [address] [place], [place] [address]Dr. Benoit Diggs Parainfluenza 2 Not detected Normal NOT DETECTED [facility] Comment on above: Performed By: #### R SPLUS ####[facility] [address] [place], [place] [address]Dr. Yiaurora Diggs Parainfluenza 3 Not detected Normal NOT DETECTED [facility] Comment on above: Performed By: #### R SPLUS ####[facility] [address] [place], [place] [address]Dr. Benoit Diggs Parainfluenza 4 Not detected Normal NOT DETECTED [facility] Comment on above: Performed By: #### R SPLUS ####[facility] [address] [place], [place] [address]Dr. Benoit Diggs Rhino/Enterovirus Not detected Normal NOT DETECTED [facility] Comment on above: Performed By: #### R SPLUS ####[facility] [address] [place], [place] [address]Dr. Benoit Diggs RP2 Header 1 RESPIRATORY PANEL: VIRUSES Normal [facility] Comment on above: Performed By: #### R SPLUS ####[facility] [address] [place], [place] [address]Dr. Benoit Diggs RP2 Header 2 RESPIRATORY PANEL: BACTERIA Normal [facility] Comment on above: Performed By: #### R SPLUS ####[facility] [address] [place], [place] [address]Dr. Benoit Diggs RSV Not detected Normal NOT DETECTED [facility] Comment on above: Performed By: #### R SPLUS ####[facility] [address] [place], [place] [address]Dr. Benoit Diggs SARS-CoV-2 (COVID-19) RNA RANDOLPH+probe Ql (Unsp spec) Not detected Normal NOT DETECTED [facility] Comment on above: Performed By: #### R SPLUS ####[facility] [address] [place], [place] [address]Dr. Bneoit Diggs Result Comment: When diagnostic testing is [...] for this test is supported by the [place] of [employer] and Human Service's declaration that [...] used). Performed By: #### H IV12 #### [facility] [address] [place] [address] Dr. Benoit Diggs URINE MICROSCOPIC ONLYon BACTERIA TRACE Abnormal NONE SEEN [facility] Comment on above: Performed By: #### H IV12 #### [facility] [address] [place] [address] Dr. Benoit Diggs Bacteria identified Cx Nom (U) INDICATED Normal [facility] Comment on above: Performed By: #### H IV12 #### [facility] [address] [place] [address] Dr. Benoit Diggs CAST NONE SEEN Normal NONE SEEN [facility] Comment on above: Performed By: #### H IV12 #### [facility] [address] [place] [address] Dr. Benoit Diggs Crystals LM Nom (Urine sed) NONE SEEN Normal NONE SEEN [facility] Comment on above: Performed By: #### H IV12 #### [facility] [address] [place] [address] Dr. Benoit Diggs Epithelial cells LM Ql (Urine sed) MODERATE Abnormal NONE SEEN /RARE [facility] Comment on above: Performed By: #### H IV12 #### [facility] [address] [place] [address] Dr. Benoit Diggs MUCOUS NONE SEEN Normal NONE SEEN [facility] Comment on above: Performed By: #### H IV12 #### [facility] [address] [place] [address] Dr. Benoit Diggs RBC 0-2 Normal 0-2 [facility] Comment on above: Performed By: #### H IV12 #### [facility] [address] [place] [address] Dr. Benoit Diggs WBC 5-10 Abnormal NONE SEEN [facility] Comment on above: Performed By: #### H IV12 #### [facility] [address] [place] [address] Dr. Benoti Diggs CBC AUTO DIFFon 09-09-2022 BASO # 0.1 103/ul Normal 0.0-0.1 [facility] Comment on above: Performed By: #### C BC #### [facility] [address] [address] [address] Benoit Diggs Basophils/100 WBC (Bld) 0.5 % Normal 0.2-2.0 [facility] Comment on above: Performed By: #### C BC #### [facility] [address] [address] [address] Benoit Diggs EO # 0.4 103/ul Normal 0.0-0.7 [facility] Comment on above: Performed By: #### C BC #### [facility] [address] [place] [address] Dr. Benoit Diggs Eosinophils/100 WBC (Bld) 4.1 % Normal 0.9-7.0 [facility] Comment on above: Performed By: #### C BC #### [facility] [address] [place] [address] Dr. Benoit Diggs Erythrocyte distribution width (RBC) [Ratio] 12.8 % Normal 11.0-15.0 [facility] Comment on above: Performed By: #### C BC #### [facility] [address] [place] [address] Dr. Benoit Diggs Hematocrit (Bld) [Volume fraction] 31.4 % Critically low 36.0-48.0 [facility] Comment on above: Performed By: #### C BC #### [facility] [address] [place] [address] Dr. Benoit Diggs Hemoglobin (Bld) [Mass/Vol] 10.5 g/dL Critically low 12.0-16.0 [facility] Comment on above: Performed By: #### C BC #### [facility] [address] [place] [address] Dr. Benoit Diggs IG # 0.05 10e3/ul Critically high 0.00-0.03 [facility] Comment on above: Performed By: #### C BC #### [facility] [address] [place] [address] Dr. Benoit Diggs IG % 0.5 % Normal 0.0-0.5 [facility] Comment on above: Performed By: #### C BC #### [facility] [address] [place] [address] Dr. Benoit Diggs LYMPH # 2.2 103/ul Normal 1.2-3.8 [facility] Comment on above: Performed By: #### C BC #### [facility] [address] [place] [address] Dr. Benoit Diggs Lymphocytes/100 WBC (Bld) 21.9 % Normal 20.5-60.0 [facility] Comment on above: Performed By: #### C BC #### [facility] [address] [place] [address] Dr. Benoit Diggs MANUAL DIFF REQ NO Normal [facility] Comment on above: Performed By: #### C BC #### [facility] [address] [place] [address] Dr. Benoit Diggs MCH (RBC) [Entitic mass] 29.7 pg Normal 26.7-34.0 [facility] Comment on above: Performed By: #### C BC #### [facility] [address] [place] [address] Dr. Benoit Diggs MCHC (RBC) [Mass/Vol] 33.4 g/dL Normal 29.9-35.2 [facility] Comment on above: Performed By: #### C BC #### [facility] [address] [place] [address] Dr. Benoit Diggs MCV (RBC) [Entitic vol] 89.0 fL Normal 81.0-99.0 [facility] Comment on above: Performed By: #### C BC #### [facility] [address] [place] [address] Dr. Benoit Diggs MONO # 0.6 103/ul Normal 0.3-0.8 [facility] Comment on above: Performed By: #### C BC #### [facility] [address] [place] [address] Dr. Benoit Diggs Monocytes/100 WBC (Bld) 5.7 % Normal 1.7-12.0 [facility] Comment on above: Performed By: #### C BC #### [facility] [address] [address] [address] Benoit Diggs NEUT # 6.8 103/ul Critically high 1.4-6.5 [facility] Comment on above: Performed By: #### C BC #### [facility] [address] [address] [address] Benoit Diggs Neutrophils/100 WBC (Bld) 67.3 % Normal 43.0-75.0 [facility] Comment on above: Performed By: #### C BC #### [facility] [address] [address] [address] Benoit Diggs Platelet mean volume (Bld) [Entitic vol] 11.0 fL Normal 9.5-13.5 [facility] Comment on above: Performed By: #### C BC #### [facility] [address] [address] [address] Benoit Diggs PLT 215 103/ul Normal 150-450 [facility] Comment on above: Performed By: #### C BC #### [facility] [address] [address] [address] Benoit Diggs RBC 3.53 106/ul Critically low 4.20-5.40 [facility] Comment on above: Performed By: #### C BC #### [facility] [address] [address] [address] Benoit Diggs WBC 10.2 103/ul Normal 4.0-11.0 [facility] Comment on above: Performed By: #### C BC #### [facility] [address] [address] [address] Benoit Diggs GLUCOSE - 1HRon 09-09-2022 Glucose [Mass/Vol] 116 mg/dL Critically high 74-106 [facility] Comment on above: Performed By: #### G LU1HR ####[facility] [address] [address]Dr. Benoit Diggs PAP ACOG PANEL 2: 21 to 29on 08-13-2022 . . Normal [facility] Comment on above: Performed By: #### C BC #### [facility] [address] [address] [address] Benoit Diggs Age Gdln ACOG Testing 21-29 Normal [facility] Comment on above: Performed By: #### C BC #### [facility] [address] [place] [address] Dr. Benoit Diggs DIAGNOSIS: Comment Normal [facility] Comment on above: Result Comment: NEGA TIVE FOR INTRAEPITHELIAL LESION OR MALIGNANCY. Performed By: #### C BC #### [facility] [address] [address] [address] Benoit Diggs Methodology: Comment Normal [facility] Comment on above: Result Comment: This liquid based ThinPrep(R) pap test was screened with the use of an image guided system. Performed By: #### C BC #### [facility] [address] [place] [address] Dr. Benoit Diggs Note: Comment Normal [facility] Comment on above: Result Comment: The Pap smear is a screening test designed to aid in the detection of premalignant and malignant conditions of the uterine cervix. It is not a diagnostic procedure and should not be used as the sole means of detecting cervical cancer. Both false-positive and false-negative reports do occur. . Performed By: #### C BC #### [facility] [address] [place] [address] Dr. Benoit Diggs Performed by: Comment Normal [facility] Comment on above: Result Comment: Cynthia Smith, Hydrogen Treater (ASCP) Performed By: #### C BC #### [facility] [address] [place] [address] Dr. Benoit Diggs Reflex Criteria: Comment Normal [facility] Comment on above: Result Comment: The HPV DNA reflex criteria were not met with this specimen result therefore, no HPV testing was performed. . Performed By: #### C BC #### [facility] [address] [place] [address] Dr. Benoit Diggs Specimen adequacy: Comment Normal [facility] Comment on above: Result Comment: Sati sfactory for evaluation. No endocervical component is identified. Performed By: #### C BC #### [facility] [address] [place] [address] Dr. Benoit Diggs CHLAMYDIA/GONOCOCCUS RANDOLPH (SW AB/URINE/PAPon 08-08-2022 Chlamydia trachomatis, RANDOLPH Negative Normal Negative [facility] Comment on above: Performed By: #### H IV12 #### [facility] [address] [address] [address] Benoit Diggs Neisseria gonorrhoeae, RANDOLPH Negative Normal Negative [facility] Comment on above: Performed By: #### H IV12 #### [facility] [address] [address] [address] Benoit Diggs US PREG INCOMPLETE ANATOMYon [...] MYLENE SULLIVAN Date: 2022-08-07 20:09 Normal [facility] US PREG ANATOMY SINGLEon US PREG [...] AISHWARYA MAGALLON Date: 2022-07-25 17:11 Normal [facility] AFP MATERNAL FOR SPINA BIFID Aon 07-17-2022 AFP MoM 0.55 Normal [facility] Comment on above: Performed By: #### H IV12 #### [facility] [address] [address] [address] Benoit Diggs AFP Value 20.0 ng/mL Normal [facility] Comment on above: Performed By: #### H IV12 #### [facility] [address] [address] [address] Benoit Diggs AFP, Serum for Spina Bifida Report Normal [facility] Comment on above: Performed By: #### H IV12 #### [facility] [address] [address] [address] Benoit Diggs Comment Comment Normal [facility] Comment on above: Result Comment: Ector Palafox, Ph.D., [facility] Director . References: Available Upon Request. . Multiples Of Median Cutoffs For AFP Elevations Caro 2.5 Black 2.8 IDD 2.0 Twins 4.5 Abbreviation Definitions IDD - Insulin Dep Diabetes OSBR - Open Spina Bifida Risk . For further inquiries contact [employer] [facility] at [phone]. . This test was developed and its performance characteristics determined by [employer]. It has not been cleared or approved by the Food and Drug Administration. Performed By: #### H IV12 #### [facility] [address] [address] [address] Benoit Diggs Gest Age Collection Date 18.1 weeks Normal [facility] Comment on above: Performed By: #### H IV12 #### [facility] [address] [address] [address] Benoit Diggs Gestat, Age Based on Ultrasound Normal [facility] Comment on above: Result Comment: 13:1 on 06/06/2022 Recalculations are not recommended when gestational dating by LMP and ultrasound are within 10 days. Performed By: #### H IV12 #### [facility] [address] [address] [address] Benoit Diggs Insulin Dep Diabetes No Normal [facility] Comment on above: Performed By: #### H IV12 #### [facility] [address] [place] [address] Dr. Benoit Diggs Interpretation Comment Normal [facility] Comment on above: Result Comment: [...] Customer Services to discuss available options. The [employer] recommends amniocentesis be offered to women age 35 and older. Performed By: #### H IV12 #### [facility] [address] [address] [address] Benoit Diggs [age] Normal [facility] Comment on above: Performed By: #### H IV12 #### [facility] [address] [address] [address] Benoit Diggs Multiple Gestation No Normal [facility] Comment on above: Performed By: #### H IV12 #### [facility] [address] [place] [address] Dr. Benoit Diggs OSBR [place] 1 [place] [address] Normal [facility] Comment on above: Performed By: #### H IV12 #### [facility] [address] [address] [address] Benoit Diggs PDF . Normal [facility] Comment on above: Performed By: #### H IV12 #### [facility] [address] [place] [address] Dr. Benoit Diggs Race Normal [facility] Comment on above: Performed By: #### H IV12 #### [facility] [address] [place] [address] Dr. Benoit Diggs Test Results: Negative Normal [facility] Comment on above: Performed By: #### H IV12 #### [facility] [address] [place] [address] Dr. Benoit Diggs HEP B SURFACE ANTIGEN SCREEN on 06-07-2022 HBsAg Screen Negative Normal Negative [facility] Comment on above: Performed By: #### H IV12 #### [facility] [address] [place] [address] Dr. Benoit Diggs HEPATITIS C VIRUS AB W/ REFL EX QUANTon 06-07-2022 HCV AB <0.1 Normal 0.0-0.9 [facility] Comment on above: Performed By: #### H IV12 #### [facility] [address] [place] [address] Dr. Benoit Diggs Interpretation: Comment Normal [facility] Comment on above: Result Comment: Nega tive Not infected with HCV, unless recent infection is suspected or other evidence exists to indicate HCV infection. Performed By: #### H IV12 #### [facility] [address] [place] [address] Dr. Benoit Diggs HIV 1 AND 2 WITH REFLEXon HIV Screen 4th Generation wRfx Non-Reactive Normal Non Reactive [facility] Comment on above: Result Comment: HIV Negative HIV-1/HIV-2 antibodies and HIV-1 p24 antigen were NOT detected. There is no laboratory evidence of HIV infection. Performed By: #### H IV12 #### [facility] [address] [place] [address] Dr. Benoit Diggs RPR QUANTon 08-19-2022 Rapid Plasma Reagin, Quant Non-Reactive Normal NonRea<1:1 [facility] Comment on above: Result Comment: Plea se Note: This test does not meet current guidelines for screening and diagnosis of syphilis. This test is intended for following treatment response in patients being treated for syphilis infection. To screen for syphilis infection, a reflex cascade that includes both RPR and a treponema-specific assay should be utilized, such as Treponema pallidum (Syphilis) Screening Parker (557645) or Rapid Plasma Reagin (RPR) Test With Reflex to Quantitative RPR and Confirmatory Treponema pallidum Antibodies (301664). Performed By: #### H IV12 #### [facility] [address] [address] [address] Benoit Diggs RUBELLA AB IGGon 06-07-2022 Rubella Antibodies, IgG 3.22 index Normal Immune >0.99 [facility] Comment on above: Result Comment: Non- immune <0.90 Equivocal 0.90 - 0.99 Immune >0.99 Performed By: #### C BC #### [facility] [address] [address] [address] Benoit Diggs US PREG <14 WKSon [...] MYLENE SULLIVAN Date: 2022-06-06 22:25 Normal [facility] CBC AUTO DIFFon 06-06-2022 BASO # 0.1 103/ul Normal 0.0-0.1 [facility] Comment on above: Performed By: #### C BC #### [facility] [address] [address] [address] Benoit Diggs Basophils/100 WBC (Bld) 0.6 % Normal 0.2-2.0 [facility] Comment on above: Performed By: #### C BC #### [facility] [address] [place] [address] Dr. Benoit Diggs EO # 0.3 103/ul Normal 0.0-0.7 [facility] Comment on above: Performed By: #### C BC #### [facility] [address] [place] [address] Dr. Benoit Diggs Eosinophils/100 WBC (Bld) 4.1 % Normal 0.9-7.0 [facility] Comment on above: Performed By: #### C BC #### [facility] [address] [place] [address] Dr. Benoit Diggs Erythrocyte distribution width (RBC) [Ratio] 13.9 % Normal 11.0-15.0 [facility] Comment on above: Performed By: #### C BC #### [facility] [address] [place] [address] Dr. Benoit Diggs Hematocrit (Bld) [Volume fraction] 36.0 % Normal 36.0-48.0 [facility] Comment on above: Performed By: #### C BC #### [facility] [address] [place] [address] Dr. Benoit Diggs Hemoglobin (Bld) [Mass/Vol] 12.0 g/dL Normal 12.0-16.0 [facility] Comment on above: Performed By: #### C BC #### [facility] [address] [place] [address] Dr. Benoit Diggs IG # 0.03 10e3/ul Normal 0.00-0.03 [facility] Comment on above: Performed By: #### C BC #### [facility] [address] [place] [address] Dr. Benoit Diggs IG % 0.4 % Normal 0.0-0.5 [facility] Comment on above: Performed By: #### C BC #### [facility] [address] [place] [address] Dr. Benoit Diggs LYMPH # 2.7 103/ul Normal 1.2-3.8 [facility] Comment on above: Performed By: #### C BC #### [facility] [address] [place] [address] Dr. Benoit Diggs Lymphocytes/100 WBC (Bld) 33.2 % Normal 20.5-60.0 [facility] Comment on above: Performed By: #### C BC #### [facility] [address] [place] [address] Dr. Benoit Diggs MANUAL DIFF REQ NO Normal [facility] Comment on above: Performed By: #### C BC #### [facility] [address] [place] [address] Dr. Benoit Diggs MCH (RBC) [Entitic mass] 29.4 pg Normal 26.7-34.0 [facility] Comment on above: Performed By: #### C BC #### [facility] [address] [place] [address] Dr. Benoit Diggs MCHC (RBC) [Mass/Vol] 33.3 g/dL Normal 29.9-35.2 [facility] Comment on above: Performed By: #### C BC #### [facility] [address] [place] [address] Dr. Benoit Diggs MCV (RBC) [Entitic vol] 88.2 fL Normal 81.0-99.0 [facility] Comment on above: Performed By: #### C BC #### [facility] [address] [place] [address] Dr. Benoit Diggs MONO # 0.5 103/ul Normal 0.3-0.8 [facility] Comment on above: Performed By: #### C BC #### [facility] [address] [place] [address] Dr. Benoit Diggs Monocytes/100 WBC (Bld) 6.6 % Normal 1.7-12.0 [facility] Comment on above: Performed By: #### C BC #### [facility] [address] [place] [address] Dr. Benoit Diggs NEUT # 4.4 103/ul Normal 1.4-6.5 [facility] Comment on above: Performed By: #### C BC #### [facility] [address] [address] [address] Benoit Diggs Neutrophils/100 WBC (Bld) 55.1 % Normal 43.0-75.0 [facility] Comment on above: Performed By: #### C BC #### [facility] [address] [address] [address] Benoit Diggs Platelet mean volume (Bld) [Entitic vol] 11.0 fL Normal 9.5-13.5 [facility] Comment on above: Performed By: #### C BC #### [facility] [address] [address] [address] Benoit Diggs PLT 225 103/ul Normal 150-450 [facility] Comment on above: Performed By: #### C BC #### [facility] [address] [address] [address] Benoit Diggs RBC 4.08 106/ul Critically low 4.20-5.40 [facility] Comment on above: Performed By: #### C BC #### [facility] [address] [address] [address] Benoit Diggs WBC 8.1 103/ul Normal 4.0-11.0 [facility] Comment on above: Performed By: #### C BC #### [facility] [address] [address] [address] Benoit Diggs CULTURE URINEon 06-06-2022 CULTURE URINE Culture Observations: MODERATE GROWTH OF MIXED GENITAL RIZWAN. NO POTENTIAL PATHOGENS SEEN. Normal [facility] Comment on above: Performed By: #### U RCX ####[facility] [address] [address]. Benoit Diggs GLYCOHEMOGLOBIN A1Con 2021 ADA RECOMMENDATION SEE BELOW Normal [facility] Comment on above: Result Comment: ADA RECOMMENDED LIMIT 4.0 - 6.0 ADA THERAPEUTIC TARGET < 7.0 ACTION SUGGESTED > 7.0 Performed By: #### C BC #### [facility] [address] [address] [address] Benoit Diggs Glucose [Mass/Vol] 105 mg/dL Normal [facility] Comment on above: Performed By: #### C BC #### [facility] [address] [address] [address] Benoit Diggs HbA1c (Bld) [Mass fraction] 5.3 % Normal 4.5-6.2 [facility] Comment on above: Performed By: #### C BC #### [facility] [address] [address] [address] Benoit Diggs DAVID BOX TEST PT SEND OUTo n 06-06-2022 SENT TO REF LAB 06/06/[address] [facility] Comment on above: Performed By: #### H IV12 #### [facility] [address] [place] [address] Dr. Benoit Diggs TYPE AND SCREENon 06-06-2022 TYPE AND SCREEN Negative Normal [facility] Comment on above: Performed By: #### T NS #### [facility] [address] [address] [address] Benoit Diggs PREG QUANT HCGon 04-16-2022 HCG QUANT 40371 mIU/mL Normal [facility] Comment on above: Performed By: #### C BC #### [facility] [address] [place] [address] Dr. Benoit Diggs HCG RANGE SEE BELOW Normal [facility] Comment on above: Result Comment: 5-50 0-1 WEEK 40-300 1-2 WEEKS 100-1,000 2-3 WEEKS 500-6,000 3-4 WEEKS 5,000-200,000 1-2 MONTHS 10,000-100,000 2-3 MONTHS 3,000-50,000 2ND TRIMESTER 1,000-50,000 3RD TRIMESTER Performed By: #### C BC #### [facility] [address] [place], [place] [address] Dr. Benoit Diggs Vital Signs Date Time Vital Sign Value Performing Clinician Facility 07-05-2025 14:07-0400 Body mass index (BMI) [Ratio] 54 kg/m2 Gia LYNN Work Phone: [facility] 07-05-2025 14:07-0400 Body weight 129.64 kg Gia LYNN Work Phone: [facility] 07-05-2025 14:07-0400 Diastolic blood pressure 80 mm[Hg] Gia Vamsi LYNN Work Phone: [facility] 07-05-2025 14:07-0400 Systolic blood pressure 120 mm[Hg] Gia LYNN Work Phone: [facility] 06-07-2025 13:59-0400 Body mass index (BMI) [Ratio] 53.17 kg/m2 Jefferson Anita DO Work Phone: [facility] 06-07-2025 13:59-0400 Body weight 127.64 kg Jefferson Anita DO Work Phone: [facility] 06-07-2025 13:59-0400 Diastolic blood pressure 68 mm[Hg] Jefferson Anita DO Work Phone: [facility] 06-07-2025 13:59-0400 Systolic blood pressure 108 mm[Hg] Jefferson Anita DO Work Phone: [facility] 05-05-2025 14:05-0400 Body mass index (BMI) [Ratio] 53.51 kg/m2 Anita Ob [facility] 05-05-2025 14:05-0400 Body weight 128.46 kg Anita Ob [facility] 05-05-2025 14:05-0400 Diastolic blood pressure 70 mm[Hg] Anita Ob [facility] 05-05-2025 14:05-0400 Systolic blood pressure 110 mm[Hg] Anita Ob [facility] 02-02-2025 10:44-0400 Body mass index (BMI) [Ratio] 52.91 kg/m2 Jefferson Anita DO Work Phone: [facility] 02-02-2025 10:44-0400 Body weight 127.01 kg Jefferson Anita DO Work Phone: [facility] 02-02-2025 10:44-0400 Diastolic blood pressure 74 mm[Hg] Jefferson Anita DO Work Phone: [facility] 02-02-2025 10:44-0400 Systolic blood pressure 112 mm[Hg] Jefferson Anita DO Work Phone: [facility] 01-17-2025 13:48-0400 Body mass index (BMI) [Ratio] 52.93 kg/m2 Jefferson Anita DO Work Phone: [facility] 01-17-2025 13:48-0400 Body weight 127.06 kg Jefferson Anita DO Work Phone: [facility] 01-17-2025 13:48-0400 Diastolic blood pressure 70 mm[Hg] Jefferson Anita DO Work Phone: [facility] 01-17-2025 13:48-0400 Systolic blood pressure 120 mm[Hg] Jefferson Anita DO Work Phone: [facility] 12-22-2024 10:54-0500 Body mass index (BMI) [Ratio] 52.93 kg/m2 Gia Mayo PA Work Phone: [facility] 12-22-2024 10:54-0500 Body weight 127.06 kg Gia Warren PA Work Phone: [facility] 12-22-2024 10:54-0500 Diastolic blood pressure 90 mm[Hg] Gia Warren PA Work Phone: [facility] 12-22-2024 10:54-0500 Systolic blood pressure 116 mm[Hg] Gia Warren PA Work Phone: [facility] 12-02-2024 12:56-0500 Body mass index (BMI) [Ratio] 53.09 kg/m2 Jefferson Anita DO Work Phone: [facility] 12-02-2024 12:56-0500 Body weight 127.46 kg Jefferson Anita DO Work Phone: [facility] 12-02-2024 12:56-0500 Diastolic blood pressure 84 mm[Hg] Jefferson Anita DO Work Phone: [facility] 12-02-2024 12:56-0500 Systolic blood pressure 122 mm[Hg] Jefferson Anita DO Work Phone: [facility] 11-11-2024 08:42-0500 Body mass index (BMI) [Ratio] 53.55 kg/m2 Jefferson Anita DO Work Phone: [facility] 11-11-2024 08:42-0500 Body weight 128.55 kg Jefferson Anita DO Work Phone: [facility] 09-07-2024 14:06-0500 Diastolic blood pressure 71 mm[Hg] Manuel Noel MD Work Phone: [facility] 09-07-2024 14:06-0500 Heart rate 77 /min Manuel Noel MD Work Phone: [facility] 09-07-2024 14:06-0500 Respiratory rate 18 /min Manuel Noel MD Work Phone: [facility] 09-07-2024 14:06-0500 SaO2% (BldA) [Mass fraction] 98 % Manuel Noel MD Work Phone: [facility] 09-07-2024 14:06-0500 Systolic blood pressure 112 mm[Hg] Manuel Noel MD Work Phone: [facility] 09-07-2024 12:39-0500 Body height 154.94 cm Manuel Noel MD Work Phone: [facility] 09-07-2024 12:39-0500 Body weight 127 kg Manuel Noel MD Work Phone: [facility] 08-24-2024 09:31-0500 Body height 154.94 cm Manuel Noel MD Work Phone: [facility] 08-24-2024 09:31-0500 Body mass index (BMI) [Ratio] 53.4 kg/m2 Manuel Noel MD Work Phone: [facility] 08-24-2024 09:31-0500 Body weight 128.16 kg Manuel Noel MD Work Phone: [facility] 07-17-2022 02:06-0400 Body weight 100.[address] [facility] Comment on above: Performed By: #### HIV12 #### [facility] [address] [place] [address] Dr. Benoit Diggs Encounters Encounter Date Encounter Type Care Provider Facility Start: 07-05-2025 End: 07-05-2025 Bamboo flowsheet Gia LYNN Work Phone: [facility] Start: 07-05-2025 End: 07-06-2025 Bamboo flowsheet Gia LYNN Work Phone: [facility] Start: 07-05-2025 End: 07-06-2025 External Result Encounter Gia LYNN Work Phone: [facility] Unsolicited Start: 07-05-2025 End: 07-05-2025 Office outpatient visit 15 minutes Gia LYNN Work Phone: [facility] Comment on above: 15 weeks gestation o f ([facility]); Second trimester ([facility]); Exposure to STD; Vaginal discharge; Nausea Start: 07-05-2025 End: 07-05-2025 ambulatory GIA MAYO Not Available Start: 06-07-2025 End: 06-07-2025 Bamboo flowsheet Jefferson Anita DO Work Phone: [facility] Start: 06-07-2025 End: 06-07-2025 Bamboo flowsheet Jefferson Anita DO Work Phone: [facility] Start: 06-07-2025 End: 06-07-2025 Clinisync Result Encounter Jefferson Anita DO Work Phone: [facility] Unsolicited Start: 06-07-2025 End: 06-07-2025 Office outpatient visit 15 minutes Jefferson Anita DO Work Phone: [facility] Comment on above: First trimester preg kodi ([facility]); 11 weeks gestation of ([facility]); Right ovarian cyst; Nausea; PCOS (polycystic ovarian syndrome) Start: 06-07-2025 End: 06-07-2025 ambulatory JEFFERSON ANITA Not Available Start: 05-24-2025 End: 05-24-2025 Clinisync Result Encounter [...] 04-14-2025 End: 04-14-2025 Emergency department patient visit [facility] Start: 02-09-2025 End: 02-09-2025 Clinisync Result Encounter [...] 01-17-2025 ambulatory Manuel Noel MD Work Phone: [facility] Work Phone: Start: 01-17-2025 End: 01-17-2025 Departed Referred Manuel Noel MD Work Phone: [facility] [place] [facility] Start: 01-12-2025 End: 01-12-2025 ambulatory JEFFERSON ANITA Not Available Start: 01-03-2025 End: 01-03-2025 ambulatory Manuel Noel MD Work Phone: [facility] Work Phone: Start: 01-03-2025 End: 01-03-2025 Departed Referred Manuel Noel MD Work Phone: [facility] Start: 12-22-2024 End: 12-22-2024 Bamboo flowsheet Gia LYNN Work Phone: [facility] Start: 12-22-2024 End: 12-28-2024 Bamboo flowsheet Gai LYNN Work Phone: [facility] Start: 12-22-2024 End: 12-28-2024 Clinisync Result Encounter Generic External Data Provider [facility] Unsolicited Start: 12-22-2024 End: 12-22-2024 Patient encounter procedure Gia LYNN Work Phone: [facility] Start: 12-22-2024 End: 12-22-2024 Periodic preventive [...] / Non-visit Manuel pelaez MD Work Phone: [facility] Work Phone: Start: 09-07-2024 End: 09-07-2024 Admission to same day surgery center Manuel Noel MD Work Phone: [facility] Work Phone: Start: 09-07-2024 End: 09-07-2024 ambulatory Manuel Noel MD Work Phone: [facility] Work Phone: Start: 08-28-2024 End: 08-28-2024 Emergency department patient visit MANUEL NOEL [facility] Start: 08-24-2024 End: 08-24-2024 Patient encounter procedure Manuel Noel MD Work Phone: [facility] Work Phone: Start: 07-01-2024 End: 07-01-2024 Clinisync Result Encounter Generic External Data Provider [facility] Unsolicited Start: 07-01-2024 End: 07-01-2024 Clinisync Result Encounter Generic External Data Provider [facility] Unsolicited Start: 06-10-2024 Non-patient / Non-visit Manuel pelaez MD Work Phone: [facility] Work Phone: Start: 03-02-2024 Patient encounter procedure Generic Provider [facility] Start: 12-23-2022 Encounter for genera l adult medical examination without abnormal findings DR MANUEL NOEL [facility] Start: 12-21-2022 End: 12-22-[address] [...] Date Procedure Procedure Detail Performing Clinician Start: 07-05-2025 Urnls dip stick/tablet rgnt non-auto w/o micrscp Gia LYNN Work Phone: Start: 07-05-2025 RECURRENT VAGINITIS (HTRX) Gia LYNN Work Phone: Start: 06-07-2025 ALL THYROID STIM HORMONE Jefferson Anita DO Work Phone: Start: 05-24-2025 BOX TEST Jefferson Anita DO Work Phone: Start: 05-05-2025 End: 05-05-2025 [...] GDLN Gia LYNN Work Phone: Start: 12-02-2024 CORPORATE EXECUTIVE INSERTION/REMOVAL OF CONTRACEPTIVE CAPSULE Jefferson Anita DO Work Phone: Start: 11-11-2024 ALL CBC WITH AUTO DIFF Jefferson Anita DO Work Phone: Start: 09-07-2024 Esophagogastroduodenoscopy Manuel Noel MD Work Phone: Start: 07-01-2024 MHPT TRICHOMONAS/WET PREP Generic Diversity Manager al Data Provider Start: 12-03-2022 Transfusion of [...] Patient encounter procedure [facility] Start: 07-05-2025 End: 08-04-2025 Alpha fetoprotein, maternal Alpha fetoprotein, maternal Lab Routine 15 weeks gestation of ([facility]) Second trimester ([facility]) Expected: 07/05/2025 (Approximate), Expires: 08/04/2025 [facility] Comment on above: Expected: 07/05/2025 (Approximate), Expires: 08/04/2025 Start: 07-05-2025 End: 07-05-2025 Patient encounter procedure [facility] Comment on above: Arrived Start: 06-20-2025 Influenza vaccination [facility] Start: 06-07-2025 End: 06-07-2025 Patient encounter procedure [facility] Comment on above: Arrived Start: 05-05-2025 End: 05-05-2026 ABO/Rh ABO/Rh Lab Routine Missed menses , unspecified gestational age ([facility]) Expected: 05/05/2025 (Approximate), Expires: 05/05/2026 [facility] Comment on above: Expected: 05/05/2025 (Approximate), Expires: 05/05/2026 Start: 05-05-2025 End: 05-05-2026 Blood type and Indirect antibody screen panel - Blood Type and screen Lab Routine Missed menses , unspecified gestational age ([facility]) Expected: 05/05/2025 (Approximate), Expires: 05/05/2026 [facility] Work Phone: Comment on above: Expected: 05/05/2025 (Approximate), Expires: 05/05/2026 Start: 05-05-2025 End: 05-05-2026 Drugs of abuse panel - Urine by Screen method Rapid drug screen, urine Lab Routine , unspecified gestational age ([facility]) Encounter for supervision of normal first in first trimester ([facility]) Expected: 05/05/2025 (Approximate), Expires: 05/05/2026 [facility] Comment on above: Expected: 05/05/2025 (Approximate), Expires: 05/05/2026 Start: 05-05-2025 End: 05-05-2026 Thyrotropin [Units/volume] in Serum or Plasma TSH Lab Routine Thyroid disease Expected: 05/05/2025 (Approximate), Expires: 05/05/2026 [facility] Comment on above: Expected: 05/05/2025 (Approximate), Expires: 05/05/2026 Start: 02-02-2025 End: 02-02-2025 Patient encounter procedure [facility] Comment on above: Arrived Start: 01-17-2025 End: 01-17-2026 Colposcopy Colposcopy Procedures Routine LGSIL of cervix of undetermined significance Expected: 01/17/2025 (Approximate), Expires: 01/17/2026 [facility] Work Phone: Comment on above: Expected: 01/17/2025 (Approximate), Expires: 01/17/2026 Start: 01-12-2025 End: 01-12-2025 Professional / ancillary services management 01/12/2025 1:00 PM EDT Ancillary Procedure [facility] [address] [place] [address] [place] [phone] [facility] Start: 01-03-2025 Bacteria identified in Urine by Culture Urine Culture [facility] Start: 01-03-2025 Urine culture [facility] Start: 12-22-2024 End: 12-22-2025 US Pelvis US Pelvis w/ TV Imaging Routine Pelvic pain in female Expected: 12/22/2024, Expires: 12/22/2025 [facility] Comment on above: Expected: 12/22/2024 , Expires: 12/22/2025 Start: 12-22-2024 End: 12-22-2024 Patient encounter procedure [facility] Comment on above: Arrived Start: 12-02-2024 End: 12-02-2024 Patient encounter procedure 12/02/2024 9:30 AM EST Procedure Visit [facility] [address] [place] [phone] Jefferson Howard, DO [address] [facility] [place] [address] [facility] Start: 11-30-2024 End: 11-30-2024 Professional / ancillary services management 11/30/2024 2:00 PM EST Ancillary Procedure [facility] [address] [facility] [place] [phone] [facility] Start: 11-11-2024 End: 11-11-2025 DHEA DHEA [...] EST Office Visit [facility] [address] [facility] [place] [phone] Jefferson Howard, DO [address] [place] [address] Arrived [facility] Comment on above: Arrived Start: 09-07-2024 [facility] Start: 06-20-2024 Influenza vaccination Influenza Vacc ine (#1) [facility] Bacteria identified in Urine by Culture Urine culture Microbiology Routine Missed menses Ordered: 05/05/2025 [facility] Comment on above: Ordered: 05/05/2025 CBC W Auto Different ial panel - Blood CBC and differential Lab Routine Right ovarian cyst PCOS (polycystic ovarian syndrome) Ordered: 11/11/2024 [facility] Comment on above: Ordered: 11/11/2024 CBC W Auto Different ial panel - Blood CBC and differential Lab Routine Missed menses , unspecified gestational age (HHS-HCC) Ordered: 05/05/2025 [facility] Comment on above: Ordered: 05/05/2025 CHLAMYDIA TRACHOMATI S (GENITO/STI) CHLAMYDIA TRACHOMATIS (GENITO/STI) Lab Routine Exposure to STD Ordered: 07/05/2025 [facility] Comment on above: Ordered: 07/05/2025 Cytology Cervical or vaginal smear or scraping study Pap Smear Pathology and Cytology Routine Well woman exam with routine gynecological exam Ordered: 12/22/2024 [facility] Work Phone: Comment on above: Ordered: 12/22/2024 DHEA-sulfate DHEA-sulfate Lab Routine Right ovarian cyst PCOS (polycystic ovarian syndrome) Ordered: 11/11/2024 [facility] Comment on above: Ordered: 11/11/2024 Follicle stimulating hormone Follicle stimulating hormone Lab Routine Right ovarian cyst PCOS (polycystic ovarian syndrome) Ordered: 11/11/2024 [facility] Comment on above: Ordered: 11/11/2024 hCG, quantitative, hCG, quantitative, Lab Routine Right ovarian cyst PCOS (polycystic ovarian syndrome) Ordered: 11/11/2024 [facility] Work Phone: Comment on above: Ordered: 11/11/2024 Hemoglobin A1c/Hemoglobin.total in Blood Hemoglobin A1c Lab Routine Right ovarian cyst PCOS (polycystic ovarian syndrome) Ordered: 11/11/2024 [facility] Comment on above: Ordered: 11/11/2024 Hemoglobin A1c/Hemoglobin.total in Blood Hemoglobin A1c Lab Routine Missed menses , unspecified gestational age (HHS-HCC) Ordered: 05/05/2025 [facility] Comment on above: Ordered: 05/05/2025 Hepatitis B virus surface Ag [Presence] in Serum or Plasma by Immunoassay Hepatitis B surface antigen Lab Routine Missed menses , unspecified gestational age (HHS-HCC) Ordered: 05/05/2025 [facility] Comment on above: Ordered: 05/05/2025 Hepatitis C virus Ab [Presence] in Serum or Plasma by Immunoassay Hepatitis C antibody Lab Routine Missed menses , unspecified gestational age ([facility]) Ordered: 05/05/2025 [facility] Comment on above: Ordered: 05/05/2025 HIV-1/HIV-2 antigen/antibody combination immunoassay HIV-1 and HIV-2 antibodies Lab Routine Missed menses , unspecified gestational age ([facility]-HCC) Ordered: 05/05/2025 [facility] Comment on above: Ordered: 05/05/2025 Luteinizing hormone Luteinizing hormone Lab Routine Right ovarian cyst PCOS (polycystic ovarian syndrome) Ordered: 11/11/2024 [facility] Comment on above: Ordered: 11/11/2024 Neisseria gonorrhoea e DNA [Presence] in Unspecified specimen by RANDOLPH with probe detection Neisseria gonorrhea DNA probe, direct Lab Routine Exposure to STD Ordered: 07/05/2025 [facility] Comment on above: Ordered: 07/05/2025 Patient Education Esophagitis Kn ow your [facility] Work Phone: Prolactin Prolactin Lab Ro utine Right ovarian cyst PCOS (polycystic ovarian syndrome) Ordered: 11/11/2024 [facility] Comment on above: Ordered: 11/11/2024 Reagin Ab [Presence] in Serum by RPR RPR Lab Routine Missed menses , unspecified gestational age ([facility]) Ordered: 05/05/2025 [facility] Comment on above: Ordered: 05/05/2025 Removal non-biodegradable drug delivery implant Remove drug implant device Procedures Routine Encounter for removal of etonogestrel implant Ordered: 12/02/2024 [facility] Work Phone: Comment on above: Ordered: 12/02/2024 Rubella antibody, IgG Rubella an tibody, IgG Lab Routine Missed menses , unspecified gestational age ([facility]-HCC) Ordered: 05/05/2025 [facility] Comment on above: Ordered: 05/05/2025 SURESWAB(R) ADVANCED VAGINITIS PLUS, TMA SURESWAB(R) ADVANCED VAGINITIS PLUS, TMA Pathology and Cytology Routine Vaginal discharge Ordered: 07/05/2025 [facility] Work Phone: Comment on above: Ordered: 07/05/2025 Thyrotropin [Units/volume] in Serum or Plasma TSH Lab Routine Right ovarian cyst PCOS (polycystic ovarian syndrome) Ordered: 11/11/2024 [facility] Comment on above: Ordered: 11/11/2024 Thyrotropin [Units/volume] in Serum or Plasma TSH Lab Routine Elevated TSH Ordered: 02/02/2025 [facility] Work Phone: Comment on above: Ordered: 02/02/2025 Thyroxine (T4) free [Mass/volume] in Serum or Plasma T4, free Lab Routine Right ovarian cyst PCOS (polycystic ovarian syndrome) Ordered: 11/11/2024 [facility] Comment on above: Ordered: 11/11/2024 Thyroxine (T4) free [Mass/volume] in Serum or Plasma T4, free Lab Routine Elevated TSH Ordered: 02/02/2025 [facility] Comment on above: Ordered: 02/02/2025 Payers Date Payer Category Payer Medicaid [id number] 2021 Medicaid (Managed Care) 1.2. [id number] 2000 Unknown [id number] 2.16.84 0.1.104673.3.579.2.593 2000 Unknown [id number] 2.16.84 0.1.659957.3.579.2.593 2000 Unknown [id number] 2.16.84 0.1.088401.3.579.2.593 2000 Unknown [id number] 2.16.84 0.1.766836.3.579.2.593 2000 Unknown [id number] 2.16.84 0.1.988754.3.579.2.593 2000 Unknown [id number] 2.16.84 0.1.234228.3.579.2.593 2000 Unknown [id number] 2.16.84 0.1.939631.3.579.2.593 2000 Unknown [id number] 2.16.84 0.1.421192.3.579.2.593 2000 Unknown [id number] 2.16.84 0.1.927801.3.579.2.593 2000 Unknown [id number] 2.16.84 0.1.508114.3.579.2.593 2000 Unknown [id number] 2.16.84 0.1.372124.3.579.2.593 2000 Unknown [id number] 2.16.84 0.1.700667.3.579.2.593 2000 Unknown [id number] 2.16.84 0.1.426717.3.579.2.593 2000 Unknown [id number] 2.16.84 0.1.406957.3.579.2.593 2000 Unknown [id number] 2.16. 840.1.470825.3.579.2.1286 2000 Unknown [id number] 2.16.8 40.1.923516.3.579.2.1286 2000 Unknown [id number] 2.16.8 40.1.492940.3.579.2.1259 2000 Unknown [id number] 2.16.8 40.1.912083.3.579.2.1259 2000 Unknown [id number] 2.16.8 40.1.764984.3.579.2.1259 2000 Unknown [id number] 2.16.8 40.1.162029.3.579.2.1259 2000 Unknown [id number] 2.16.84 0.1.446042.3.579.2.1259 2000 Unknown [id number] 2.16.84 0.1.524012.3.579.2.1259 2000 Unknown [id number] 2.16.84 0.1.788073.3.579.2.1259 2000 Unknown [id number] 2.16.84 0.1.124364.3.579.2.1259 2000 Unknown [id number] 2.16.84 0.1.049410.3.579.2.1259 2000 Unknown [id number] 2.16.84 0.1.520612.3.579.2.1259 2000 Unknown [id number] 2.16.84 0.1.917835.3.579.2.1259 1959 Self-pay 1959 Unknown [id number] Unknown [id number] 2.16.84 0.1.349937.3.579.2.593 Unknown [id number] 2.16.8 40.1.458785.3.579.2.531 Unknown [id number] 2.16.8 40.1.591352.3.579.2.531 Unknown [id number] 2.16.8 40.1.573073.3.579.2.531 Social History Date Type Detail Facility Start: 03-02-2024 End: 09-07-2024 Tobacco smoking status NHIS Never smoked tobacco (finding) [facility] Start: 09-07-2024 Sex Patient sex un known (finding) [facility] Start: 2000 Sex Assigned At Female F [facility] Start: 03-02-2024 Tobacco use and exposure [...] Start: 01-04-2025 End: 01-19-2025 Sex Female (finding) [facility] Start: 04-04-2025 [facility] [...] Desired Activity /State Clinical Notes 08-24-2024 to 07-05-2025 LEAH Curran - 07/05/2025 2:00 PM Yary Dang LPN - 06/07/2025 1:50 PM Felix Correa LPN - 05/05/2025 2:00 PM Yary Dang LPN - 02/02/2025 11:10 AM EDT Note Date & Type Note Facility 07-05-2025 History of Presen t illness Narrative Reason for Appointment: Patient ID: Jes Malik is a 24 y.o. female who presents for Routine Visit and STI Screening Patient presents today for Return OB appointment.and cultures MEDICATIONS Current Outpatient Medications Medication Instructions omeprazole (PRILOSEC) 40 mg, Oral, 2 times daily before meals ondansetron (ZOFRAN) 4 mg, Oral, Every 6 hours PRN, Take 1 tablet by mouth every 6 hours as needed for nausea. promethazine (PHENERGAN) 12.5 mg, Oral, Every 6 hours PRN, Take 1 tablet by mouth every 6 hours as needed for nausea. ALLERGIES Allergies Allergen Reactions Penicillins Unknown PROBLEMS Active Ambulatory Problems Diagnosis Date Noted Major depressive disorder, recurrent episode, mild 03/02/2024 Gastroesophageal reflux disease without esophagitis 03/02/2024 Mild intermittent asthma without complication (HCC) 03/02/2024 Allergic rhinitis due to pollen 03/02/2024 Morbid obesity due to excess calories ([facility]) 03/02/2024 Annual physical exam 03/02/2024 Amenorrhea 04/28/2024 [...] Exam Constitutional: Appearance: Normal appearance. She is well-developed and normal weight. HENT: Head: Normocephalic. Cardiovascular: Rate and Rhythm: Normal rate and regular rhythm. Pulses: Normal pulses. Pulmonary: Effort: Pulmonary effort is normal. Breath sounds: Normal breath sounds. Abdominal: General: Bowel sounds are normal. There is no distension. Palpations: Abdomen is soft. Tenderness: There is no abdominal tenderness. There is no guarding or rebound. Musculoskeletal: General: No swelling. Normal range of motion. Right lower leg: No edema. Left lower leg: No edema. Neurological: General: No focal deficit present. Mental Status: She is alert and oriented to person, place, and time. Skin: General: Skin is warm and dry. Psychiatric: Mood and Affect: Mood normal. Behavior: Behavior normal. Thought Content: Thought content normal. Judgment: Judgment normal. Vitals and nursing note reviewed. Exam conducted with a senior mobile web developer present. Vitals: Estimated body mass index is 54 kg/m as calculated from the following: Height as of 24: 5' 1 . Weight as of this encounter: 285 lb 12.8 oz. BP: 120/80 Patient's last menstrual period was 03/08/2025. ASSESSMENT & PLAN ICD-10-CM 1. 15 weeks gestation of ([facility]) Z3A.15 POCT urinalysis dipstick manually resulted Alpha fetoprotein, maternal Alpha fetoprotein, maternal 2. Second trimester ([facility]) Z34.92 POCT urinalysis dipstick manually resulted Alpha fetoprotein, maternal Alpha fetoprotein, maternal 3. Exposure to STD Z20.2 CHLAMYDIA TRACHOMATIS (GENITO/STI) Neisseria gonorrhea DNA probe, direct 4. Vaginal discharge N89.8 SURESWAB(R) ADVANCED VAGINITIS PLUS, TMA 5. Nausea R11.0 promethazine (Phenergan) 12.5 MG tablet Return OB/Annual Exam: Patient presents today for an annual exam/routine obstetrics appointment. Patient is currently 15w1d . Patient is doing well and states she has no complaints. Culture were obtained without difficulty and patient was given [facility] order to have obtained. Patient continues with nausea, we will add phenergan for pt to take at night to help alleviate symptoms Orders Placed This Encounter Procedures CHLAMYDIA TRACHOMATIS (GENITO/STI) Neisseria gonorrhea DNA probe, direct Alpha fetoprotein, maternal POCT urinalysis dipstick manually resulted Follow Up: Patient is to return to our office in 4 weeks for routine OB appointment Documented by Gayatri Correa LPN on behalf of: LEAH Curran documented in this encounter [facility] 06-07-2025 History of Presen t illness Narrative [...] 03/02/2024 Morbid obesity due to excess calories ([facility]) 03/02/2024 Annual physical exam 03/02/2024 Amenorrhea 04/28/2024 [...] nursing note reviewed. Exam conducted with a senior mobile web developer present. Vitals: Estimated body mass index is 53.17 kg/m as calculated from the following: Height as of 06/01/24: 5' 1 . Weight as of this encounter: 281 lb 6.4 oz. BP: 108/68 Patient's last menstrual period was 03/08/2025. ASSESSMENT & PLAN ICD-10-CM 1. First trimester ([facility]) Z34.91 2. 11 weeks gestation of ([facility]) Z3A.11 3. Right ovarian cyst N83.201 ondansetron [...] or undercooked meat, and stay away from [facility]. Patient has been consulted regarding any further do's and don'ts of . Patient voiced understanding and all questions and concerns were answered. No orders of the defined types were placed in this encounter. Follow Up: Patient is to return in 4 weeks for routine OB appointment. Documented by Shelley Dang LPN on behalf of: Jefferson Howard DO documented in this encounter [facility] 05-05-2025 History of Presen t illness Narrative [...] 03/02/2024 Morbid obesity due to excess calories ([facility]-HCC) 03/02/2024 Annual physical exam 03/02/2024 Amenorrhea 04/28/2024 [...] dipstick manually resulted , unspecified gestational age ([facility]-H[facility]) - Type and screen; Future - ABO/Rh; Future - CBC and differential - Hemoglobin A1c - RPR - Rubella antibody, IgG - Hepatitis B surface antigen - Hepatitis C antibody - HIV-1 and HIV-2 antibodies - Rapid drug screen, urine; Future Encounter for supervision of normal first in first trimester [facility] - Rapid drug screen, urine; Future Right [...] or undercooked meat, and stay away from [facility]. Patient has also been advised to not change litter boxes and eat 6 small meals a day. Patient has been consulted regarding the do's and don'ts of . Patient was given labs and all questions and concerns were answered. [place] and Thyroid given to patient to have [...] Gayatri Correa LPN documented in this encounter [facility] 02-02-2025 History of Presen t illness Narrative [...] Major depressive disorder, recurrent episode, mild (HCC) ([facility]) 03/02/2024 Gastroesophageal reflux disease without esophagitis 03/02/2024 Mild intermittent asthma without complication ([facility]) 03/02/2024 Allergic rhinitis due to pollen 03/02/2024 Morbid obesity due to excess calories ([facility]) 03/02/2024 Annual [...] nursing note reviewed. Exam conducted with a senior mobile web developer present. Vitals: Estimated body mass index is [...] Jefferson Howard DO documented in this encounter [facility] 01-17-2025 History of Presen t illness Narrative [...] nursing note reviewed. Exam conducted with a senior mobile web developer present. Vitals: Estimated body mass index is [...] Jefferson Howard DO documented in this encounter [facility] 12-22-2024 History of Presen t illness Narrative [...] Major depressive disorder, recurrent episode, mild (HCC) ([facility]) 03/02/2024 Gastroesophageal reflux disease without esophagitis 03/02/2024 Mild intermittent asthma without complication ([facility]) 03/02/2024 Allergic rhinitis due to pollen 03/02/2024 Morbid obesity due to excess calories ([facility]) 03/02/2024 Annual [...] nursing note reviewed. Exam conducted with a senior mobile web developer present. Vitals: Estimated body mass index is [...] of: LEAH Curran documented in this encounter [facility] 12-02-2024 History of Presen t illness Narrative [...] nursing note reviewed. Exam conducted with a senior mobile web developer present. Vitals: Estimated body mass index is [...] Jefferson Howard DO documented in this encounter [facility] 11-11-2024 History of Presen t illness Narrative [...] Noted Major depressive disorder, recurrent episode, mild ([facility]) ([facility]) 03/02/2024 Gastroesophageal reflux disease without esophagitis 03/02/2024 Mild intermittent asthma without complication ([facility]) 03/02/2024 Allergic rhinitis due to pollen 03/02/2024 Morbid obesity due to excess calories ([facility]) 03/02/2024 Annual [...] nursing note reviewed. Exam conducted with a senior mobile web developer present. Vitals: Estimated body mass index is [...] Jefferson Howard DO documented in this encounter [facility] 09-07-2024 Procedure note [facility] enter 08-24-2024 Evaluation note Diagnosis Onset Date Resolution Dyspepsia acute August 24, 2024 9:29am Nausea acute August 24, 2024 9:29am Chronic GERD chronic August 9:29am Constipation chronic August 9:29am [facility] Work Phone: Evaluation note* Diagnosis Gastroesophageal [...] syndrome) Polycystic ovaries documented in this encounter [facility] HealthcareEvaluation note* Diagnosis Gastroesophageal reflux disease without [...] of etonogestrel implant documented in this encounter [facility] HealthcareEvaluation note* Diagnosis Gastroesophageal reflux disease without [...] female genital organs documented in this encounter [facility] HealthcareEvaluation noteNo assessment information [facility] Work [facility]: Evaluation note* Diagnosis Gastroesophageal reflux [...] of undetermined significance documented in this encounter [facility] HealthcareEvaluation note* Diagnosis Gastroesophageal reflux disease without esophagitis- Primary Esophageal reflux Amenorrhea Absence of menstruation Generalized abdominal pain Abdominal pain, generalized Morbid (severe) obesity due to excess calories (CMS/HCC) Body mass index (BMI) 50.0-59.9, adult ([facility]) Right sided sciatica- Primary Sciatica Gastroesophageal reflux disease without esophagitis Esophageal reflux Major depressive disorder, recurrent episode, mild (HCC) ([facility]) Major depressive disorder, recurrent episode, mild Morbid obesity due to excess calories ([facility]) Encounter to discuss test results Other specified counseling Elevated TSH Other abnormal blood chemistry documented in this encounter [facility] HealthcareEvaluation note* Diagnosis Gastroesophageal reflux disease without esophagitis- Primary Esophageal reflux Amenorrhea Absence of menstruation Generalized abdominal pain Abdominal pain, generalized Morbid (severe) obesity due to excess calories ([facility]) Body mass index (BMI) 50.0-59.9, adult ([facility]) Right sided sciatica- Primary Sciatica Gastroesophageal reflux disease without esophagitis Esophageal reflux Major depressive disorder, recurrent episode, mild Major depressive disorder, recurrent episode, mild Morbid obesity due to excess calories ([facility]) Missed menses , unspecified gestational age ([facility]) Encounter for supervision of normal first in first trimester ([facility]) Right ovarian cyst Other and unspecified ovarian cyst Nausea Nausea alone PCOS (polycystic ovarian syndrome) Polycystic ovaries Gastroesophageal reflux disease, unspecified whether esophagitis present Thyroid disease Unspecified disorder of thyroid documented in this encounter [facility] HealthcareEvaluation note* Diagnosis Gastroesophageal reflux disease without esophagitis- Primary Esophageal reflux Amenorrhea Absence of menstruation Generalized abdominal pain Abdominal pain, generalized Morbid (severe) obesity due to excess calories ([facility]) Body mass index (BMI) 50.0-59.9, adult ([facility]) Right sided sciatica- Primary Sciatica Gastroesophageal reflux disease without esophagitis Esophageal reflux Major depressive disorder, recurrent episode, mild Major depressive disorder, recurrent episode, mild Morbid obesity due to excess calories ([facility]) First trimester ([facility]) state, incidental 11 weeks gestation of ([facility]) Right ovarian cyst Other and unspecified ovarian cyst Nausea Nausea alone PCOS (polycystic ovarian syndrome) Polycystic ovaries documented in this encounter [facility] HealthcareEvaluation note* Diagnosis Gastroesophageal reflux disease without esophagitis- Primary Esophageal reflux Amenorrhea Absence of menstruation Generalized abdominal pain Abdominal pain, generalized Morbid (severe) obesity due to excess calories ([facility]) Body mass index (BMI) 50.0-59.9, adult ([facility]) Right sided sciatica- Primary Sciatica Gastroesophageal reflux disease without esophagitis Esophageal reflux Major depressive disorder, recurrent episode, mild Major depressive disorder, recurrent episode, mild Morbid obesity due to excess calories ([facility]) 15 weeks gestation of ([facility]) Second trimester ([facility]) state, incidental Exposure to STD Vaginal discharge Leukorrhea, not specified as infective Nausea Nausea alone documented in this encounter [facility] Summary Purpose Family History No Family History Records Found Relationship Condition Age at Onset Recorded Date/T joe Not Specified No pertinent family history Unknown Advance Directives No Advanced Directives Records Found Advance Directive Response Recorded Date/ Time Advance [...] and content) DATE CREATED AUTHOR 12/24/2022 [facility] DATE CREATED AUTHOR AUTHOR'S ORGANIZ ATION 01/19/2025 [facility] DATE CREATED AUTHOR AUTHOR'S ORGANIZ ATION 04/15/2025 [facility] DATE CREATED AUTHOR AUTHOR'S ORGANIZ ATION 07/06/2025 [facility] [employer] Care Teams (unrecognized sec [...] Other Provider Active Start: September 07, 2024 Chemical Laboratory Tester Relationship Specialty Start Date End Date Manuel Noel MD [address] [place] [phone] PCP - General Family Medicine 03/02/24 Chemical Laboratory Tester Relationship Specialty Start Date End Date Manuel Noel MD [address] [place] [id number] PCP - General [facility] 03/02/24 Manuel Noel MD [address] [place] [phone] PCP - [facility] 07/20/24 Chemical Laboratory Tester Relationship Specialty Start Date End Date Manuel Noel MD [address] [place] [phone] PCP - General Family Medicine 03/02/24 Manuel Noel MD [address] [place] [address] [facility] 07/20/24 Chemical Laboratory Tester Relationship Specialty Start Date End Date Manuel Noel MD [address] [place] [address] PCP - [facility] 03/02/24 Manuel Noel MD [address] [place] [address] [facility] 07/20/24 Chemical Laboratory Tester Relationship Specialty Start Date End Date Manuel Noel MD [address] [place] [address] PCP [facility] 03/02/24 Manuel Noel MD [address] [place] [address] [facility] 07/20/24 Chemical Laboratory Tester Relationship Specialty Start Date End Date Manuel Noel MD [address] [place] [address] PCP [facility] 03/02/24 Manuel Noel MD [address] [place] [address] [facility] 07/20/24 Chemical Laboratory Tester Relationship Specialty Start Date End Date Manuel Noel MD [address] [place] [address] PCP [facility] 03/02/24 Manuel Noel MD [address] [place] [address] [facility] 07/20/24 Chemical Laboratory Tester Relationship Specialty Start Date End Date Manuel Noel MD [address] [place] [phone] PCP - [facility] 03/02/24 Manuel Noel MD [address] [place] [address] [facility] 07/20/24 Chemical Laboratory Tester Relationship Specialty Start Date End Date Manuel Noel MD [address] [place] [phone] PCP [facility] 03/02/24 Manuel Noel MD [address] [place] [address] [facility] 07/20/24 Team Status: Inactive Member Role Status Dates Jefferson Howard DO Attending Provider Active Start : January 17, 2025 End: January 17, 2025 Chemical Laboratory Tester Relationship Specialty Start Date End Date Manuel Noel MD [address] [place] [phone] PCP [facility] 03/02/24 Manuel Noel MD [address] [place] [address] [facility] 07/20/24 Chemical Laboratory Tester Relationship Specialty Start Date End Date Manuel Noel MD PCP - General Family [facility] 03/02/24 Manuel Noel MD [address] [place] [address] PCP - [facility] 07/20/24 Chemical Laboratory Tester Relationship Specialty Start Date End Date Manuel Noel MD PCP - [facility] 03/02/24 Manuel Noel MD [address] [place] [phone] [facility] 07/20/24 Chemical Laboratory Tester Relationship Specialty Start Date End Date Manuel Noel MD PCP - [facility] 03/02/24 Manuel Noel MD [address] [place] [phone] [facility] - [facility] 07/20/24 Reason for Visit (unrecogniz ed section and content) Reason Comments Ovarian Cyst Reason Comments Nexplanon Removal Reason Comments Well Women Visit Reason Comments Colposcopy Reason Comments Results Reason Comments Amenorrhea Reason Comments Routine Visit Reason Comments Routine Visit STI Screening Goals (unrecognized section and content) Goals may [...] BE BASED ON THE PRIMARY CLINICAL RECORDS. [facility]. provides no warranty or guarantee of the accuracy or completeness of information in this document.
== END 2025-07-25 11:58 | disposition home or self-care (01) ==
LOC: LAB 11:58
PROVIDERS: Visit Provider Physician Assistant
DX: Z34.92 Encounter for supervision of normal pregnancy, unspecified, second trimester (principal)
CPT/HCPCS: 36415; 82105

== ENCOUNTER 2025-08-02 19:11 | Outpatient (REF) | payer OTHER, SELFPAY ==
--- OUTSIDE RECORDS SUMMARY | 2025-08-02 19:17 | XMS_ITS | CCD ---
Author Organization [facility] Care Team Providers Care Reclaimer Name Role Phone DEMETRIOC, DR WILLS Attending [...] DR MANUEL Souza Primary Care Unavailable ION, KRISHAN Attending Unavailable ION, KRISHNA Admitting Unavailable NADERER, [...] Unavailable ANITA ., DR ANDREA Attending Unavailable MONTICELLO, DR AISHWARYA Luis Consulting Unavailable NADERER, DR [...] Unavailable NADERER, DR MANUEL Souza Consulting Unavailable Laan MATSON, Manuel Primary Care Provider Mir Silva MD Attending Provider Manuel Noel MD Primary Care Provider Manuel Noel MD Unavailable Manuel Noel MD Primary Care Provider [phone] Krishna Saxena MD Attending Provider [phone] Jefferson Howard DO Attending Provider [phone] Manuel Noel Primary Care Unavailable Mir Silva Admitting Unavailable Mir Silva Attending Unavailable Manuel oNel Primary Care Unavailable Krishna Saxena Admitting Unavailable Krishna Saxena Attending Unavailable Jefferson Howard Admitting Unavailable Jefferson Howard Attending Unavailable MANUEL NOEL Primary Care Unavailable MYLENE SAMPSON Attending Unavailable MAO PETERSEN Attending Unavailable MANUEL NOEL Primary Care Unavailable Manuel Noel MD Primary Care Provider Manuel Noel MD Unavailable JEFFERSON HOWARD Attending Unavailable JEFFERSON HOWARD Attending Unavailable GIA MAYO Attending Unavailable JEFFERSON HOWARD Attending Unavailable JEFFERSON HOWARD Attending Unavailable JEFFERSON HOWARD Attending Unavailable GIA MAYO Attending Unavailable Allergies Allergy Classification Reported Allergen(s) Allergy Type Date of Onset Reaction(s) Facility (2 sources) Penicillins; Translations: [PENICILLINS] Drug allergy (disorder) 9 [facility] Repository (20 sources) Penicillins Drug Intolerance 1 Unknown [facility] (1 source) Penicillins Drug allergy (disorder) 4 [facility] Repository Medications Current Medications Medication Drug [...] intrinsic asthma without status asthmaticus without complication ([facility]) Inhale 2 puffs every 4 (four) [...] Ergocalciferol (Vitamin D2) 50,000 unit Capsule Discontinued 21302 UNIT PO Sa@0900 2 January 26, 2019 [...] Name Value Interpretation Reference Range Facil ity AFP, SERUM, OPEN SPINA BIFID Aon 07-26-2025 AFP MOM 1.07 . [facility] AFP VALUE 31.7 ng/mL . [facility] COMMENT: Comment . [facility] Comment on above: Caitlin Palafox , Ph.D., [facility] Director References: Available Upon Request. Multiples Of Median Cutoffs For AFP Elevations Caro 2.5 Black 2.8 IDD 2.0 Twins 4.5 Abbreviation Definitions IDD - Insulin Dep Diabetes OSBR - Open Spina Bifida Risk For further inquiries contact [facility] at [phone]. This test was developed and its performance characteristics determined by [employer]. It has not been cleared or approved by the Food and Drug Administration. Performed at: [facility] [address], [place] [id number] [employer] Analyst: Leonidas Oneill [facility], Phone: [phone] GEST. AGE ON COLLECTION DATE 18.0 . weeks [facility] GESTAT. AGE BASED ON Ultrasound . [facility] Comment on above: 15.1 on 07/05/2025 Recalculations are not recommended when gestational dating by LMP and ultrasound are within 10 days. INSULIN DEP DIABETES No . [facility] INTERPRETATION Comment . [facility] Comment on above: Interpretation: Scre en Negative This result is screen negative for OSB. [...] Customer Services to discuss available options. The [employer] recommends amniocentesis be offered to women age 35 and older. [age]IA [age] [facility] MULTIPLE GESTATION No . [facility] OSBR RISK 1 IN 9862 . [facility] RACE . [facility] RESULTS Report . [facility] TEST RESULTS: Negative . [facility] WEIGHT 285 . lbs [facility] N N ULTRASOUND [id number] 1 15 N 1 Y 285 N N N N N White/ [facility] RECURRENT VAGINITIS (HTRX)on 07-06-2025 ATOPOBIUM VAGINAE 0 [facility] ATOPOBIUM VAGINAE Not detected [facility] BVAB 2,3 (BACTERIAL VAGINOSIS ASSOCIATED BACTERIA 2, 3); MOBILUNCUS SPP 0 [facility] BVAB 2,3 (BACTERIAL VAGINOSIS ASSOCIATED BACTERIA 2, 3); MOBILUNCUS SPP Not detected [facility] CYDNEY ALBICANS, PARAPSILOSIS, TROPICALIS 0 [facility] CYDNEY ALBICANS, PARAPSILOSIS, TROPICALIS Not detected [facility] CYDNEY GLABRATA 0 [facility] CYDNEY GLABRATA Not detected [facility] CYDNEY KRUSEI 0 [facility] CYDNEY KRUSEI Not detected [facility] CHLAMYDIA TRACHOMATIS 0 [facility] CHLAMYDIA TRACHOMATIS Not detected [facility] GARDNERELLA VAGINALIS 31.049 Abnormal [facility] GARDNERELLA VAGINALIS Detected Abnormal [facility] Interpretation and review of laboratory results Abnormal [facility] MEGASPHAERA (TYPES 1, 2) 0 [facility] MEGASPHAERA (TYPES 1, 2) Not detected [facility] MYCOPLASMA GENITALIUM 0 [facility] MYCOPLASMA GENITALIUM Not detected [facility] NEISSERIA GONORRHOEAE 0 [facility] NEISSERIA GONORRHOEAE Not detected [facility] TET B, TET M 23.864 Abnormal [facility] TET B, TET M Detected Abnormal [facility] TRICHOMONAS VAGINALIS 0 [facility] TRICHOMONAS VAGINALIS Not detected [facility] Urinalysis macro (dipstick) panel (U)on 07-05-2025 Bilirubin, UA Negative Negative - 4(7 0) +++ mg/dL [facility] Blood, UA Positive Negative - 50 Lincoln/mcL [facility] Clarity, UA Clear [facility] Color, UA Yellow [facility] Glucose, UA Negative Negative - 2000(110) ++++ mg/dL [facility] Interpretation and review of laboratory results Abnormal [facility] Ketones, UA Negative Negative - 160(16) ++++ mg/dL [facility] Leukocytes, UA Negative Negative - 50 0+++ Skyler/mcL [facility] Nitrite, UA Negative Negative - Positive [facility] pH, UA 6 5 - 9 [facility] Protein, UA Negative Negative - 1999(20) ++++ mg/dL [facility] Spec Grav, UA 1.015 1 - 1.03 [facility] Urobilinogen, UA 1.0 0.2 - 12 mg/dL [facility] ALL THYROID STIM HORMONEon 0 06-07-2025 TSH Qn 2.104 m[IU]/L [facility] BOX TESTon 05-24-2025 BOX TEST SENT OUT YES [facility] BOX1 UNITY [facility] BOX2 05/24/25 [facility] HCG ( test) Ql (U)o n 05-05-2025 Interpretation and review of laboratory results Abnormal [facility] Preg Test, Ur Positive Negative [facility] US OB TRANSVAGINALon 025 US [...] Negative - 4(7 0) +++ mg/dL [facility] Blood, UA Negative Negative - 50 Lincoln/mcL [facility] Clarity, UA Clear [facility] Color, UA Yellow [facility] Glucose, UA Negative Negative - 1999(110) ++++ mg/dL [facility] Interpretation and review of laboratory results Abnormal [facility] Ketones, UA Negative Negative - 160(16) ++++ mg/dL [facility] Leukocytes, UA Negative Negative - 50 0+++ Skyler/mcL [facility] Nitrite, UA Negative Negative - Positive [facility] pH, UA 7 5 - 9 [facility] Protein, UA Trace Negative - 1999(20) ++++ mg/dL [facility] Spec Grav, UA 1.025 1 - 1.03 [facility] Urobilinogen, UA 1.0 0.2 - 12 mg/dL [facility] POCT NURSING URINE MACROSCOP IC UAon 04-14-2025 BILIRUBIN MOLLY Negative Normal Negative [facility] Comment on above: Performed By: #### N UM #### [facility] ([facility]) [address] [place] [address] VIR BLOOD/HGB MOLLY Trace Abnormal Negative [facility] Comment on above: Performed By: #### N UM #### [facility] ([address] [address] VIR GLUCOSE MOLLY Negative Normal Negative [facility] Comment on above: Performed By: #### N UM #### [facility] ([address] [place] [address] VIR KETONES MOLLY Negative Normal Negative [facility] Comment on above: Performed By: #### N UM #### [facility] ([address] [place] [address] VIR LEUKOCYTE ESTERASE MOLLY Negative Normal Negative [facility] Comment on above: Performed By: #### N UM #### [facility] ([address] [place] [address] VIR NITRITE MOLLY Negative Normal Negative [facility] Comment on above: Performed By: #### N UM #### [facility] ([address] [place] [address] VIR PH MOLLY 6.5 Normal 5.0, 6.0, 6.5, 7.0, 7.5, 8.0, 8.5, 5.5 [facility] Comment on above: Performed By: #### N UM #### [facility] ([address] [place] [address] VIR PROTEIN MOLLY 100 mg/dL Abnormal Negative [facility] Comment on above: Performed By: #### N UM #### [facility] ([address] [place] [address] VIR SPECIFIC GRAVITY MOLLY >=1.030 Abnormal 1.010, 1.015, 1.020, 1.025 [facility] Comment on above: Performed By: #### N UM #### [facility] ([address] [place] [address] VIR UROBILINOGEN MOLLY 0.2 E.U./dL Normal [facility] Comment on above: Performed By: #### N UM #### [facility] ([address] [place] [address] VIR POCT , URINE (NUCG) on 04-14-2025 Beta HCG ( test) Ql (U) Positive Abnormal Negative, Indeterminate [facility] Comment on above: Performed By: #### N [facility] #### [facility] ([facility]) [address] [place] [address] VIR ALL THYROID STIM HORMONEon 0 02-09-2025 Interpretation and review of laboratory results Abnormal [facility] TSH Qn 5.935 m[IU]/L High [facility] HCG ( test) Ql (U)o n 01-17-2025 Interpretation and review of laboratory results Normal [facility] Preg Test, Ur Negative Negative [facility] Carlin 01-17-2025 L Specimen: [id number] Received: 01/18/25 Status: ARMIDAKiley Queenie Num: [id number] Spec Type: Surgical Subm Dr: Jefferson Howard Tissues: A Endocervix - Biopsy (ENDOCERVIX) Endocervix - Curettings Procedures: HE/Juanis, Gross/Micro L4 Age/ Patient Sex Location Account Attending Physician Jes Malik Sydney LABELL [id number] Jefferson Howard SPEC NUM: [id number] RECD: 01/18/25 STATUS: GHAZAL QUEENIE NUM: [id number] JUDIT: 01/17/[address]: Jefferson Howard ENTERED: 01/18/25 [facility] DR: Kendell,Nenita SPEC TYPE: Surgical DEPT: LUCAS MAR ENTERED BY: [id number] RECV BY: [id number] ORDERED: HE/2, Gross/Micro L4 ORDERED: HE/2, Gross/Micro [...] submitted in a single cassette. (1, ns, [id number]) Microscopic Description Microscopic examination is performed Specimen: [id number] Received: 01/18/25 Status: GHAZAL Zurita Num: [id number] Spec Type: Surgical Subm Dr: Jefferson Howard Tissues: A Endocervix - Biopsy (ENDOCERVIX) Endocervix - Curettings Procedures: Mitra MEDELLIN L4 Patient: Jes Malik [id number] (Continued) Specimen: [id number] Received: 01/18/25 (Continued) Signed (signature on file) Lizabeth Diggs MD 01/19/25 1541 Specimen: [id number] Received: 01/18/25 Status: GHAZAL Zurita Num: [id number] Spec Type: Surgical Subm Dr: Jefferson Howard Tissues: A Endocervix - Biopsy (ENDOCERVIX) Endocervix - Curettings Procedures: Day MEDELLIN/Elvin L4 Patient: Jes Malik [id number] (Continued) Specimen: [id number] Received: 01/18/25 (Continued) CPT Codes 35666 Specimen: [id number] Received: 01/18/25 Status: GHAZAL Zurita Num: [id number] Spec Type: Surgical Subm Dr: Jefferson Howard Tissues: A Endocervix - Biopsy (ENDOCERVIX) Endocervix - Curettings Procedures: HE/2, Gross/Micro L4 Patient: Jes Malik [id number] (Continued) Signed (signature on file) Brian-Shaheen Diggs MD 01/19/25 1541 Normal [facility] Urinalysis macro (dipstick) panel (U)on 01-17-2025 Bilirubin, UA Negative Negative - 4(7 0) +++ mg/dL [facility] Blood, UA Negative Negative - 50 Lincoln/mcL [facility] Clarity, UA Clear [facility] Color, UA Yellow [facility] Glucose, UA Negative Negative - 2000(110) ++++ mg/dL [facility] Interpretation and review of laboratory results Abnormal [facility] Ketones, UA Positive Negative - 160(16) ++++ mg/dL [facility] Comment on above: trace Leukocytes, UA Negative Negative - 50 0+++ Skyler/mcL [facility] Nitrite, UA Negative Negative - Positive [facility] pH, UA 5.5 5 - 9 [facility] Protein, UA Positive Negative - 2000(20) ++++ mg/dL [facility] Comment on above: 100 Spec Grav, UA 1.03 1 - 1.03 [facility] Urobilinogen, UA 0.2 0.2 - 12 mg/dL [facility] US PELVIC COMPLETE W/ TVon [...] Doppler flow within the bilateral ovaries. Electronically Signed:Sharall y signed by NORMA SANDERSON II, MD, PHD at 13-Jan-2025 11:16:36 PM [facility] Normal Not Available Comment on above: Order Comment: US PE LVIS-TRANSVAG IF INDICATED No LMP recorded. Urine Cultureon 01-03-2025 Bacteria identified Cx Nom (U) 15,000 colonies/ml mixed bacterial skin contaminants 2 Days PERFORMED BY: [place] [address] PATHOLOGIST CIRCULAR HEAD SAW OPERATOR BRUCE CALI M.D. Normal [facility] Comment on above: Performed By: #### C UU #### [address] Urine cultureOrdered By: Zenon Saxena on 01-03-2025 Bacteria identified Cx Nom (U) Urine culture [facility] IGP,APTIMA HPV,AGE GDLNon AGE GDLN ACOG TESTING Note . [facility] Comment on above: TESTS RESULT FLAG UN ITS REF RANGE LAB Clinician Provided Cytology Information Source.............Cervix;Endocervix No. of containers..01 ThinPrep Vial Age Algo ACOG Mela... -17 11 FLAG LEGEND: L-Low Normal,H-High Normal,LL-Alert Low,HH-Alert High <-Panic Low,>-Panic High,A-Abnormal,AA-Critical Abnormal Performed at: 01 =G [facility] [address] [place] [address] Aleida Colon MD, IGP, RFX APTIMA HPV ASCU Note Abnormal . [facility] Comment on above: TESTS RESULT FLAG UN ITS REF RANGE LAB DIAGNOSIS: [A] 02 EPITHELIAL CELL ABNORMALITY. LOW GRADE SQUAMOUS INTRAEPITHELIAL LESION (LSIL). Specimen adequacy: 02 Satisfactory for evaluation. Endocervical and/or squamous metaplastic cells (endocervical component) are present. Performed by: Suray Smith, Sanitation Officer (ASCP) Electronically si... 02 Johanne Desir MD, [...] <-Panic Low,>-Panic High,A-Abnormal,AA-Critical Abnormal Performed at: [address] [address] Aleida Colon MD, Performed at: =[address] [id number] [employer] Analyst: Aleida Colon MD, Phone: [phone] Performed at: [address] [id number] [employer] Analyst: Aleida Colon MD, Phone: [phone] Interpretation and review of laboratory results Abnormal [facility] BRUSH-SPATULA CERVIX ENDOCERVIX [facility] Insertion/Removal of Contrac eptive Capsuleon 12-02-2024 [...] with steri-strips and pressure bandage applied: yes [facility] US PELVIC COMPLETE W/ TVon 0 11-30-2024 [...] PHD at 03-Dec-2024 08:37:11 AM [facility] Normal Not Available Comment on above: Order Comment: US PE LVIS-TRANSVAG IF INDICATED No LMP recorded. ALL CBC WITH AUTO DIFFon BASOPHILS ABSOLUTE AUTO 0.1 [facility] Basophils/100 WBC (Bld) 0.6 % 0.2 - 2.0 % [facility] Eosinophils/100 WBC (Bld) 2.6 % 0.9 - 7.0 % [facility] Erythrocyte distribution width (RBC) [Ratio] 13.2 % 11.0 - 15.0 % [facility] Hematocrit (Bld) [Volume fraction] 38.2 % 36.0 - 48.0 % [facility] Hemoglobin (Bld) [Mass/Vol] 12.4 g/dL 12.0 - 16.0 g/dL [facility] IMMATURE GRANULOCYTES ABS AUTO 0.04 High [facility] Immature granulocytes/100 WBC (Bld) 0.4 % 0.0 - 0.5 % [facility] Interpretation and review of laboratory results Abnormal [facility] LYMPHOCYTES ABSOLUTE AUTO 3.4 [facility] Lymphocytes/100 WBC (Bld) 34.8 % 20.5 - 60.0 % [facility] MCH (RBC) [Entitic mass] 28.3 pg 26.7 - 34.0 pg [facility] MCHC (RBC) [Mass/Vol] 32.5 g/dL 29.9 - 35.2 g/dL [facility] MCV (RBC) [Entitic vol] 87.2 fL 81.0 - 99.0 fL [facility] MONOCYTES ABSOLUTE AUTO 0.7 [facility] Monocytes/100 WBC (Bld) 7.2 % 1.7 - 12.0 % [facility] NEUTROPHILS ABSOLUTE AUTO 5.4 [facility] Neutrophils/100 WBC (Bld) 54.4 % 43.0 - 75.0 % [facility] Platelet mean volume (Bld) [Entitic vol] 10 fL 9.5 - 13.5 fL [facility] TBH EO # 0.3 [facility]H PLT 261 [facility] TB RBC 4.38 [facility] TB WBC 9.9 [facility] HCG ( test) IA.rapi d Ql (U)Ordered By: Mir Silva on 09-07-2024 HCG ( test) Ql (U) Urine human chorionic gonadotropin (hCG) detection by immunoassay [facility] HCG,Urineon 09-07-2024 Beta HCG ( test) Ql (U) Negative Normal [facility] Comment on above: Result Comment: PERF ORMED BY: [address] [place] [address] PATHOLOGIST CIRCULAR HEAD SAW OPERATOR BRUCE CALI M.D. Performed By: #### U HCG #### [address] [place] 09-07-2024 L Specimen: [id number] Received: 09/07/24 Status: GHAZAL Zurita Num: [id number] Spec Type: Surgical Subm Dr: Mir Silva MD Tissues: A Small Intestine - Biopsy/Polyp (SMALL BOWEL BX R/O CELIAC) Procedures: HE/2, Gross/Micro L4 Age/ Patient Sex Location Account Attending Physician Jes Malik / [id number] Mir Silva MD SPEC NUM: [id number] RECD: 09/07/24 STATUS: GHAZAL ZURITA NUM: [id number] JUDIT: 09/07/[address] [facility] [address]: Mir Silva MD ENTERED: 09/07/24 LAURO BROWN: SPEC TYPE: Surgical DEPT: S ENTERED BY: [id number] RECV BY: [id number] ORDERED: HE/2, Gross/Micro L4 ORDERED: HE/2, Gross/Micro [...] submitted in a single cassette. (1, ns, [id number]) Microscopic Description Microscopic examination is performed. CPT Codes 16970 Specimen: [id number] Received: 09/07/24 Status: GHAZAL Zurita Num: [id number] Spec Type: Surgical Subm Dr: Mir Silva MD Tissues: A Small Intestine - Biopsy/Polyp (SMALL BOWEL BX R/O CELIAC) Procedures: HE/2, Gross/Micro L4 Patient: Jes Malik [id number] (Continued) Signed (signature on file) Roberth Martinez MD 09/08/24 1012 Normal [facility] CBC AND AUTO DIFFon 08-28-20 24 ABSOLUTE BASOPHIL 0.0 X10E9/L Normal 0.0-0.2 [facility] Comment on above: Performed By: #### C MP, CBCA #### [facility] ([id number]) [address] [place] [address] ABSOLUTE NEUTROPHIL 3.8 X10E9/L Normal 1.5-6.6 [facility] Comment on above: Performed By: #### C MP, CBCA #### [facility] ([id number]) [address] [place] [address] Basophils/100 WBC (Bld) 0.3 % Normal [facility] Comment on above: Performed By: #### C MP, CBCA #### [facility] ([id number]) [address] [place] [address] Eosinophils (Bld) [#/Vol] 0.0 10*3/uL Normal 0.0-0.4 [facility] Comment on above: Performed By: #### C MP, CBCA #### [facility] ([id number]) [address] [place] [address] Eosinophils/100 WBC (Bld) 0.8 % Normal [facility] Comment on above: Performed By: #### C MP, CBCA #### [facility] ([id number]) [address] [place] [address] [place] [address] Erythrocyte distribution width (RBC) [Ratio] 14.5 % Normal 11.5-15.0 [facility] Comment on above: Performed By: #### C MP, CBCA #### [facility] ([id number]) [address] [place] [address] Hematocrit (Bld) [Volume fraction] 38.8 % Normal 35-47 [facility] Comment on above: Performed By: #### C MP, CBCA #### [facility] ([id number]) [address] [place] [address] Hemoglobin (Bld) [Mass/Vol] 13.0 g/dL Normal 11.7-15.5 [facility] Comment on above: Performed By: #### C MP, CBCA #### [facility] ([id number]) [address] [place] [address] Lymphocytes (Bld) [#/Vol] 0.5 10*3/uL Low 1.0-3.5 [facility] Comment on above: Performed By: #### C MP, CBCA #### [facility] ([id number]) [address] [place] [address] Lymphocytes/100 WBC (Bld) 11.5 % Normal [facility] Comment on above: Performed By: #### C MP, CBCA #### [facility] ([id number]) [address] [place] [address] MCH (RBC) [Entitic mass] 28.6 pg Normal 27-34 [facility] Comment on above: Performed By: #### C MP, CBCA #### [facility] ([id number]) [address] [place] [address] MCHC (RBC) [Mass/Vol] 33.5 g/dL Normal 32-36 [facility] Comment on above: Performed By: #### C MP, CBCA #### [facility] ([id number]) [address] [place] [address] MCV (RBC) [Entitic vol] 85 fL Normal 80-100 [facility] Comment on above: Performed By: #### C MP, CBCA #### [facility] ([id number]) [address] [place] [address] Monocytes (Bld) [#/Vol] 0.2 10*3/uL Normal 0-0.9 [facility] Comment on above: Performed By: #### C MP, CBCA #### [facility] ([id number]) [address] [place] [address] Monocytes/100 WBC (Bld) 5.1 % Normal [facility] Comment on above: Performed By: #### C MP, CBCA #### [facility] ([id number]) [address] [place] [address] Neutrophils/100 WBC (Bld) 82.3 % Normal [facility] Comment on above: Performed By: #### C MP, CBCA #### [facility] ([id number]) [address] [place] [address] Platelet mean volume (Bld) [Entitic vol] 8.6 fL Normal 7-12 [facility] Comment on above: Performed By: #### C MP, CBCA #### [facility] ([id number]) [address] [place] [address] Platelets (Bld) [#/Vol] 225 10*3/uL Normal 150-450 [facility] Comment on above: Performed By: #### C MP, CBCA #### [facility] ([id number]) [address] [place] [address] RBC COUNT 4.55 X10E12/L Normal 3.80-5.20 [facility] Comment on above: Performed By: #### C MP, CBCA #### [facility] ([id number]) [address] [place] [address] WBC (Bld) [#/Vol] 4.6 10*3/uL Normal 4.0-11.0 [facility] Comment on above: Performed By: #### C DONG CBCA #### [facility] ([id number]) [address] [place] [address] COMPREHENSIVE METABOLIC PANE [place] 08-28-2024 Albumin [Mass/Vol] 3.6 g/dL Normal 3.2-5.3 [facility] Comment on above: Performed By: #### C DONG CBCA #### [facility] ([id number]) [address] [place] [address] ALP [Catalytic activity/Vol] 65 U/L Normal 39-130 [facility] Comment on above: Performed By: #### C DONG, CBCA #### [facility] ([id number]) [address] [place] [address] ALT [Catalytic activity/Vol] 29 U/L Normal 0-31 [facility] Comment on above: Performed By: #### C DONG, CBCA #### [facility] ([id number]) [address] [place] [address] Anion gap [Moles/Vol] 10 mmol/L Normal 5-15 [facility] Comment on above: Performed By: #### C DONG, CBCA #### [facility] ([id number]) [address] [place] [address] AST [Catalytic activity/Vol] 36 U/L Normal 0-41 [facility] Comment on above: Performed By: #### C DONG, CBCA #### [facility] ([id number]) [address] [place] [address] Bilirubin [Mass/Vol] 0.9 mg/dL Normal 0.3-1.2 [facility] Comment on above: Performed By: #### C JOAQUINA UMANA #### [facility] ([id number]) [address] [place] [address] 87937 Calcium [Mass/Vol] 8.3 mg/dL Low 8.5-10.5 [facility] Comment on above: Performed By: #### C DONG CBCHarley #### [facility] ([id number]) [address] [place] [address] 44130 Chloride [Moles/Vol] 103 mmol/L Normal 98-109 [facility] Comment on above: Performed By: #### C JOAQUINA UMANA #### [facility] ([id number]) [address] [place] [address] 41556 CO2 [Moles/Vol] 22 mmol/L Normal 22-32 [facility] Comment on above: Performed By: #### C JOAQUINA UMANA #### [facility] ([id number]) [address] [place] [address] 15371 Creatinine [Mass/Vol] 0.72 mg/dL Normal 0.40-1.00 [facility] Comment on above: Result Comment: METH OD TRACEABLE TO IDMS STANDARD Performed By: #### C JOAQUINA UMANA #### [facility] ([id number]) [address] [place] [address] 56873 eGFR (CKD-EPI) NON-RACE DEPENDENT >90 Normal >59 [facility] Comment on above: Result Comment: Reported eGFR is based on the CKD-EPI 2020 equation that does not use a race coefficient. Performed By: #### C JOAQUINA UMANA #### [facility] ([id number]) [address] [place] [address] 25732 Glucose [Mass/Vol] 103 mg/dL High 65-99 [facility] Comment on above: Performed By: #### C JOAQUINA UMANA #### [facility] ([id number]) [address] [place] [address] 99688 Potassium [Moles/Vol] 3.5 mmol/L Normal 3.5-5.0 [facility] Comment on above: Performed By: #### C MP, CBCA #### [facility] ([id number]) [address] [place] [address] 91518 Protein [Mass/Vol] 6.9 g/dL Normal 6.0-8.0 [facility] Comment on above: Performed By: #### C MP, CBCA #### [facility] ([id number]) [address] [place] [address] 04177 Sodium [Moles/Vol] 135 mmol/L Normal 134-146 [facility] Comment on above: Performed By: #### C MP, CBCA #### [facility] ([id number]) [address] [place] [address] 16241 Urea nitrogen [Mass/Vol] 16 mg/dL Normal 5-23 [facility] Comment on above: Performed By: #### C MP, CBCA #### [facility] ([id number]) [address] [place] [address] ABDOMEN AND PELVIS W CONT on [...] Recommendations for adnexal lesion management based on german Winters al., J Am Judit Radiol 10:675-81 (2013). * All CT scans at this facility use dose modulation, iterative reconstruction, and/or weight based dosing when appropriate to reduce radiation dose to as low as reasonably achievable Finalized by Huang Burleson MD on 08/28/2024 8:[address] [facility] HCG ( test) Ql (U)o n 08-28-2024 Beta HCG ( test) Ql (U) Negative Normal NEG [facility] Comment on above: Performed By: #### 2 106-3 #### [facility] ([id number]) [address] [place] [address] 28623 URN MACROSCOPIC NURon 2023 BILIRUBIN MOLLY Small Abnormal NEG [facility] Comment on above: Performed By: #### N UM #### [facility] ([id number]) [address] [place] [address] 21189 BLOOD/HGB MOLLY Negative Normal [facility] Comment on above: Performed By: #### N UM #### [facility] ([id number]) [address] [place] [address] 49925 GLUCOSE MOLLY Negative Normal NEG [facility] Comment on above: Performed By: #### N UM #### [facility] ([id number]) [address] [place] [address] 83636 KETONES MOLLY Negative Normal NEG [facility] Comment on above: Performed By: #### N UM #### [facility] ([id number]) [address] [place] [address] 16403 LEUKOCYTE ESTERASE MOLLY Negative Normal NEG [facility] Comment on above: Performed By: #### N UM #### [facility] ([id number]) [address] [place] [address] 46474 NITRITE MOLLY Negative Normal NEG [facility] Comment on above: Performed By: #### N UM #### [facility] ([id number]) [address] [place] [address] 99339 PH MOLLY 5.5 Normal 5.0-8.5 [facility] Comment on above: Performed By: #### N UM #### [facility] ([id number]) [address] [place] [address] 48498 PROTEIN MOLLY >=[address] [facility] Comment on above: Performed By: #### N UM #### [facility] ([id number]) [address] [place] [address] 47806 SPECIFIC GRAVITY MOLLY >=1.030 Normal 1.003-1.035 [facility] Comment on above: Performed By: #### N UM #### [facility] ([id number]) [address] [place] [address] 52738 UROBILINOGEN MOLLY 0.2 eu/dL Normal <1.1 [facility] Comment on above: Performed By: #### N UM #### [facility] ([id number]) [address] [place] [address] 09694 MHPT TRICHOMONAS/WET PREPon 07-01-2024 WET PREP TRIC [...] Unit Blood Type O Pos Unit Number [id number] Status Information Transfused Product ID Red Blood Cells Product Code [id number] Cross Match Result Compatible Unit Blood Type O Pos Unit Number [id number] Status Information Transfused Product ID Red Blood Cells Product Code [id number] Normal [facility] Comment on above: Performed By: #### P RBC ####[facility] [address] [place], [place] [address]Dr. Benoit Diggs CBC AUTO DIFFon 12-21-2022 BASO # 0.1 103/ul Normal 0.0-0.1 [facility] Comment on above: Performed By: #### C BC ####[facility] [address] [place], [place] [address]Dr. Benoit Diggs Basophils/100 WBC (Bld) 1.2 % Normal 0.2-2.0 [facility] Comment on above: Performed By: #### C BC ####[facility] [address] [place], [place] [address]DrJael Diggs EO # 0.4 103/ul Normal 0.0-0.7 [facility] Comment on above: Performed By: #### C BC ####[facility] [address] [place], [place] [address]Dr. Benoit Diggs Eosinophils/100 WBC (Bld) 4.5 % Normal 0.9-7.0 [facility] Comment on above: Performed By: #### C BC ####[facility] [address] [place], [place] [address]Dr. Benoit Diggs Erythrocyte distribution width (RBC) [Ratio] 16.6 % Critically high 11.0-15.0 [facility] Comment on above: Performed By: #### C BC ####[facility] [address] [place], [place] [address]Dr. Benoit Diggs Hematocrit (Bld) [Volume fraction] 40.3 % Normal 36.0-48.0 [facility] Comment on above: Performed By: #### C BC ####[facility] [address] [place] [address]Dr. Benoit Dontae Hemoglobin (Bld) [Mass/Vol] 12.6 g/dL Normal 12.0-16.0 [facility] Comment on above: Performed By: #### C BC ####[facility] [address] [place] [address]Dr. Karyaurora Dontae IG # 0.04 10e3/ul Critically high 0.00-0.03 [facility] Comment on above: Performed By: #### C BC ####[facility] [address] [place] [address]Dr. Benoit Diggs IG % 0.5 % Normal 0.0-0.5 [facility] Comment on above: Performed By: #### C BC ####[facility] [address] [place], [place] [address]Dr. Benoit Diggs LYMPH # 3.0 103/ul Normal 1.2-3.8 [facility] Comment on above: Performed By: #### C BC ####[facility] [address] [place], [place] [address]Dr. Benoit Diggs Lymphocytes/100 WBC (Bld) 36.0 % Normal 20.5-60.0 [facility] Comment on above: Performed By: #### C BC ####[facility] [address] [place] [address]Dr. Benoit Diggs MANUAL DIFF REQ NO Normal [facility] Comment on above: Performed By: #### C BC ####[facility] [address] [place] [address]Dr. Benoit Diggs MCH (RBC) [Entitic mass] 25.3 pg Critically low 26.7-34.0 [facility] Comment on above: Performed By: #### C BC ####[facility] [address] [place] [address]Dr. Benoit Diggs MCHC (RBC) [Mass/Vol] 31.3 g/dL Normal 29.9-35.2 [facility] Comment on above: Performed By: #### C BC ####[facility] [address] [place] [address]Dr. Benoit Diggs MCV (RBC) [Entitic vol] 80.9 fL Critically low 81.0-99.0 [facility] Comment on above: Performed By: #### C BC ####[facility] [address] [place] [address]Dr. Benoit Diggs MONO # 0.4 103/ul Normal 0.3-0.8 [facility] Comment on above: Performed By: #### C BC ####[facility] [address] [place] [address]Dr. Benoit Dontae Monocytes/100 WBC (Bld) 4.8 % Normal 1.7-12.0 [facility] Comment on above: Performed By: #### C BC ####[facility] [address] [place], [place] [address]Dr. Benoit Diggs NEUT # 4.4 103/ul Normal 1.4-6.5 [facility] Comment on above: Performed By: #### C BC ####[facility] [address] [place], [place] [address]Dr. Benoit Dontae Neutrophils/100 WBC (Bld) 53.0 % Normal 43.0-75.0 [facility] Comment on above: Performed By: #### C BC ####[facility] [address] [place], [place] [address]Dr. Benoit Dontae Platelet mean volume (Bld) [Entitic vol] 10.8 fL Normal 9.5-13.5 [facility] Comment on above: Performed By: #### C BC ####[facility] [address] [place], [place] [address]Dr. Benoit Dontae PLT 410 103/ul Normal 150-450 [facility] Comment on above: Performed By: #### C BC ####[facility] [address] [place] [address]Dr. Benoit Diggs RBC 4.98 106/ul Normal 4.20-5.40 [facility] Comment on above: Performed By: #### C BC ####[facility] [address] [place] [address]Dr. Benoit Diggs WBC 8.3 103/ul Normal 4.0-11.0 [facility] Comment on above: Performed By: #### C BC ####[facility] [address] [place] [address]Dr. Benoit Diggs GLYCOHEMOGLOBIN A1Con 2022 ADA RECOMMENDATION SEE BELOW Normal [facility] Comment on above: Result Comment: ADA RECOMMENDED LIMIT 4.0 - 6.0 ADA THERAPEUTIC TARGET < 7.0 ACTION SUGGESTED > 7.0 Performed By: #### A 1C ####[facility] [address] [place] [address]Dr. Benoit Diggs Glucose [Mass/Vol] 100 mg/dL Normal [facility] Comment on above: Performed By: #### A 1C ####[facility] Z[address] [place], [place] [address]Dr. Benoit Diggs HbA1c (Bld) [Mass fraction] 5.1 % Normal 4.5-6.2 [facility] Comment on above: Performed By: #### A 1C ####[facility] [address] [place], [place] [address]Dr. Benoit Diggs LIPID PROFILEon 12-21-2022 CHOL-HDL RATIO NORM SEE BELOW Normal [facility] Comment on above: Result Comment: 3.3 - 4.4 LOW RISK 4.4 - 7.1 AVERAGE RISK 7.1 - 11.0 MODERATE RISK >11.0 HIGH RISK Performed By: #### L IVER, LIPID, BMP, TSH ####[facility] [address] [place] [address]Dr. Benoit Dontae Cholesterol [Mass/Vol] 184 mg/dL Normal <=200 [facility] Comment on above: Performed By: #### L IVER, LIPID, BMP, TSH ####[facility] [address] [place] [address]Dr. Benoit Diggs Cholesterol in HDL [Mass/Vol] 52 mg/dL Normal 40-60 [facility] Comment on above: Performed By: #### L IVER, LIPID, BMP, TSH ####[facility] [address] [place] [address]Dr. Benoit Diggs Cholesterol in LDL [Mass/Vol] 114.8 mg/dL Normal [facility] Comment on above: Performed By: #### L IVER, LIPID, BMP, TSH ####[facility] [address] [place] [address]Dr. Benoit Diggs Cholesterol.total/C holesterol in HDL [Mass ratio] 3.5 {ratio} Normal [facility] Comment on above: Performed By: #### L IVER, LIPID, BMP, TSH ####[facility] [address] [place] [address]Dr. Benoit Diggs HDL NORMAL > or = 60 mg/dl - LOW CARDIOVASCULAR RISK <40 mg/dl - HIGH CARDIOVASCULAR RISK Normal [facility] Comment on above: Performed By: #### L IVER, LIPID, BMP, TSH ####[facility] [address] [place] [address]Dr. Benoit Diggs LDL CALC NORMAL SEE BELOW Normal [facility] Comment on above: Result Comment: <100 mg/dl OPTIMAL 100 - 129 mg/dl NEAR OR ABOVE OPTIMAL 130 - 159 mg/dl BORDERLINE HIGH 160 - 189 mg/dl HIGH >190 mg/dl VERY HIGH Performed By: #### L IVER, LIPID, BMP, TSH ####[facility] [address] [place] [address]Dr. Benoit Diggs Triglyceride [Mass/Vol] 86 mg/dL Normal <=150 [facility] Comment on above: Performed By: #### L IVER, LIPID, BMP, TSH ####[facility] [address] [place] [address]Dr. Benoit Diggs VLDL CALC 17.2 mg/dL Normal [facility] Comment on above: Performed By: #### L IVER, LIPID, BMP, TSH ####[facility] [address] [place] [address]Dr. Benoit Diggs LIVER PROFILEon 12-21-2022 Albumin [Mass/Vol] 3.3 g/dL Critically low 3.4-5.0 [facility] Comment on above: Performed By: #### L IVER, LIPID, BMP, TSH ####[facility] [address] [place] [address]Dr. Benoit Diggs Albumin/Globulin [Mass ratio] 0.8 {ratio} Normal [facility] Comment on above: Performed By: #### L IVER, LIPID, BMP, TSH ####[facility] [address] [place] [address]Dr. Benoit Diggs ALP [Catalytic activity/Vol] 110 U/L Normal 46-116 [facility] Comment on above: Performed By: #### L IVER, LIPID, BMP, TSH ####[facility] [address] [place], [place] [address]Dr. Benoit Diggs ALT [Catalytic activity/Vol] 25 U/L Normal 14-59 [facility] Comment on above: Performed By: #### L IVER, LIPID, BMP, TSH ####[facility] [address] [place], [place] [address]Dr. Benoit Diggs AST [Catalytic activity/Vol] 20 U/L Normal 15-37 [facility] Comment on above: Performed By: #### L IVER, LIPID, BMP, TSH ####[facility] [address] [place] [address]Dr. Benoit Diggs BILI, CONJUGATED 0.1 mg/dL Normal 0.0-0.2 [facility] Comment on above: Performed By: #### L IVER, LIPID, BMP, TSH ####[facility] [address] [place], [place] [address]Dr. Benoit Diggs Bilirubin [Mass/Vol] 0.4 mg/dL Normal 0.2-1.0 [facility] Comment on above: Performed By: #### L IVER, LIPID, BMP, TSH ####[facility] [address] [place] [address]Dr. Benoit Diggs Globulin (S) [Mass/Vol] 3.9 g/dL Normal [facility] Comment on above: Performed By: #### L IVER, LIPID, BMP, TSH ####[facility] [address] [place], [place] [address]KvDr. Benoit Diggs Protein [Mass/Vol] 7.2 g/dL Normal 6.4-8.2 [facility] Comment on above: Performed By: #### L IVER, LIPID, BMP, TSH ####[facility] [address] [place], [place] [address]tDr. Benoit Diggs PROF CHEM 8 (BAS METB)on Anion gap [Moles/Vol] 13.2 mmol/L Normal [facility] Comment on above: Performed By: #### C BC #### [facility] [address] [address] [address] Benoit Diggs Calcium [Mass/Vol] 9.2 mg/dL Normal 8.5-10.1 [facility] Comment on above: Performed By: #### C BC #### [facility] [address] [place] [address] [address] Benoit Diggs Chloride [Moles/Vol] 108 mmol/L Critically high 98-107 [facility] Comment on above: Performed By: #### C BC #### [facility] [address] [place] [address] [address] Benoit Diggs CO2 [Moles/Vol] 27.9 mmol/L Normal 21.0-32.0 [facility] Comment on above: Performed By: #### C BC #### [facility] [address] [place] [address] [address] Benoit Diggs Creatinine [Mass/Vol] 0.62 mg/dL Normal 0.55-1.02 [facility] Comment on above: Performed By: #### C BC #### [facility] [address] [place] [address] [address] Benoit Diggs EGFR-AF KOSOVAN >60 Normal >=60 [facility] Comment on above: Performed By: #### C BC #### [facility] [address] [place] [address] [address] Benoit Diggs EGFR-NON AF KOSOVAN >60 Normal >=60 [facility] Comment on above: Performed By: #### C BC #### [facility] [address] [place] [address] [address] Benoit Diggs Glucose [Mass/Vol] 92 mg/dL Normal 74-106 [facility] Comment on above: Performed By: #### C BC #### [facility] [address] [place] [address] [address] Benoit Diggs Potassium [Moles/Vol] 4.1 mmol/L Normal 3.5-5.1 [facility] Comment on above: Performed By: #### C BC #### [facility] [address] [place] [address] Dr. Benoit Diggs Sodium [Moles/Vol] 145 mmol/L Normal 136-145 [facility] Comment on above: Performed By: #### C BC #### [facility] [address] [place] [address] Dr. Benoit Diggs Urea nitrogen [Mass/Vol] 8.0 mg/dL Normal 7.0-18.0 [facility] Comment on above: Performed By: #### C BC #### [facility] [address] [place] [address] Dr. Benoit Diggs Urea nitrogen/Creatinine [Mass ratio] 12.9 mg/mg Normal [facility] Comment on above: Performed By: #### C BC #### [facility] [address] [place] [address] Dr. Benoit Diggs TSHon 12-21-2022 TSH 1.318 uIU/mL Normal 0.358-3.740 [facility] Comment on above: Performed By: #### C BC #### [facility] [address] [place] [address] Dr. Benoit Diggs CBC AUTO DIFFon 12-04-2022 BASO # 0.1 103/ul Normal 0.0-0.1 [facility] Comment on above: Performed By: #### C BC #### [facility] [address] [place] [address] Dr. Benoit Diggs Basophils/100 WBC (Bld) 0.7 % Normal 0.2-2.0 [facility] Comment on above: Performed By: #### C BC #### [facility] [address] [address] [address] Benoit Diggs EO # 0.4 103/ul Normal 0.0-0.7 [facility] Comment on above: Performed By: #### C BC #### [facility] [address] [place] [address] Dr. Benoit Diggs Eosinophils/100 WBC (Bld) 3.8 % Normal 0.9-7.0 [facility] Comment on above: Performed By: #### C BC #### [facility] [address] [place] [address] Dr. Benoit Diggs Erythrocyte distribution width (RBC) [Ratio] 15.2 % Critically high 11.0-15.0 [facility] Comment on above: Performed By: #### C BC #### [facility] [address] [place] [address] Dr. Benoit Diggs Hematocrit (Bld) [Volume fraction] 28.7 % Critically low 36.0-48.0 [facility] Comment on above: Performed By: #### C BC #### [facility] [address] [place] [address] Dr. Benoit Diggs Hemoglobin (Bld) [Mass/Vol] 9.1 g/dL Critically low 12.0-16.0 [facility] Comment on above: Performed By: #### C BC #### [facility] [address] [place] [address] Dr. Benoit Diggs IG # 0.05 10e3/ul Critically high 0.00-0.03 [facility] Comment on above: Performed By: #### C BC #### [facility] [address] [place] [address] Dr. Benoit Diggs IG % 0.5 % Normal 0.0-0.5 [facility] Comment on above: Performed By: #### C BC #### [facility] [address] [place] [address] Dr. Benoit Diggs LYMPH # 3.3 103/ul Normal 1.2-3.8 [facility] Comment on above: Performed By: #### C BC #### [facility] [address] [address] [address] Benoit Diggs Lymphocytes/100 WBC (Bld) 31.8 % Normal 20.5-60.0 [facility] Comment on above: Performed By: #### C BC #### [facility] [address] [place] [address] Dr. Benoit Diggs MANUAL DIFF REQ NO Normal [facility] Comment on above: Performed By: #### C BC #### [facility] [address] [address] [address] Benoit Diggs MCH (RBC) [Entitic mass] 25.3 pg Critically low 26.7-34.0 [facility] Comment on above: Performed By: #### C BC #### [facility] [address] [place] [address] Dr. Benoit Diggs MCHC (RBC) [Mass/Vol] 31.7 g/dL Normal 29.9-35.2 [facility] Comment on above: Performed By: #### C BC #### [facility] [address] [place] [address] Dr. Benoit Diggs MCV (RBC) [Entitic vol] 79.9 fL Critically low 81.0-99.0 [facility] Comment on above: Performed By: #### C BC #### [facility] [address] [place] [address] Dr. Benoit Diggs MONO # 0.7 103/ul Normal 0.3-0.8 [facility] Comment on above: Performed By: #### C BC #### [facility] [address] [place] [address] Dr. Benoit Diggs Monocytes/100 WBC (Bld) 7.2 % Normal 1.7-12.0 [facility] Comment on above: Performed By: #### C BC #### [facility] [address] [place] [address] Dr. Benoit Diggs NEUT # 5.8 103/ul Normal 1.4-6.5 [facility] Comment on above: Performed By: #### C BC #### [facility] [address] [place] [address] Dr. Benoit Diggs Neutrophils/100 WBC (Bld) 56.0 % Normal 43.0-75.0 [facility] Comment on above: Performed By: #### C BC #### [facility] [address] [place] [address] Dr. Benoit Diggs Platelet mean volume (Bld) [Entitic vol] 10.5 fL Normal 9.5-13.5 [facility] Comment on above: Performed By: #### C BC #### [facility] [address] [place] [address] Dr. Benoit Diggs PLT 152 103/ul Normal 150-450 [facility] Comment on above: Performed By: #### C BC #### [facility] [address] [place] [address] Dr. Benoit Diggs RBC 3.59 106/ul Critically low 4.20-5.40 [facility] Comment on above: Performed By: #### C BC #### [facility] [address] [place] [address] Dr. Benoit Diggs WBC 10.3 103/ul Normal 4.0-11.0 [facility] Comment on above: Performed By: #### C BC #### [facility] [address] [place] [address] Dr. Benoit Diggs CBC AUTO DIFFon 12-03-2022 BASO # 0.0 103/ul Normal 0.0-0.1 [facility] Comment on above: Performed By: #### C BC #### [facility] [address] [place] [address] Dr. Benoit Diggs Basophils/100 WBC (Bld) 0.4 % Normal 0.2-2.0 [facility] Comment on above: Performed By: #### C BC #### [facility] [address] [place] [address] Dr. Benoit Diggs EO # 0.3 103/ul Normal 0.0-0.7 [facility] Comment on above: Performed By: #### C BC #### [facility] [address] [place] [address] Dr. Benoit Diggs Eosinophils/100 WBC (Bld) 3.1 % Normal 0.9-7.0 [facility] Comment on above: Performed By: #### C BC #### [facility] [address] [place] [address] Dr. Benoit Diggs Erythrocyte distribution width (RBC) [Ratio] 15.5 % Critically high 11.0-15.0 [facility] Comment on above: Performed By: #### C BC #### [facility] [address] [place] [address] Dr. Benoit Diggs Hematocrit (Bld) [Volume fraction] 22.0 % Critically low 36.0-48.0 [facility] Comment on above: Performed By: #### C BC #### [facility] [address] [place] [address] Dr. Benoit Diggs Hemoglobin (Bld) [Mass/Vol] 6.8 g/dL Critically low 12.0-16.0 [facility] Comment on above: Performed By: #### C BC #### [facility] [address] [place] [address] Dr. Benoit Diggs IG # 0.05 10e3/ul Critically high 0.00-0.03 [facility] Comment on above: Performed By: #### C BC #### [facility] [address] [place] [address] Dr. Benoit Diggs IG % 0.5 % Normal 0.0-0.5 [facility] Comment on above: Performed By: #### C BC #### [facility] [address] [place] [address] Dr. Benoit Diggs LYMPH # 2.9 103/ul Normal 1.2-3.8 [facility] Comment on above: Performed By: #### C BC #### [facility] [address] [place] [address] Dr. Benoit Diggs Lymphocytes/100 WBC (Bld) 31.0 % Normal 20.5-60.0 [facility] Comment on above: Performed By: #### C BC #### [facility] [address] [place] [address] Dr. Benoit Diggs MANUAL DIFF REQ NO Normal [facility] Comment on above: Performed By: #### C BC #### [facility] [address] [place] [address] Dr. Benoit Diggs MCH (RBC) [Entitic mass] 24.6 pg Critically low 26.7-34.0 [facility] Comment on above: Performed By: #### C BC #### [facility] [address] [place] [address] Dr. Benoit Diggs MCHC (RBC) [Mass/Vol] 30.9 g/dL Normal 29.9-35.2 [facility] Comment on above: Performed By: #### C BC #### [facility] [address] [place] [address] Dr. Benoit Diggs MCV (RBC) [Entitic vol] 79.7 fL Critically low 81.0-99.0 [facility] Comment on above: Performed By: #### C BC #### [facility] [address] [place] [address] Dr. Benoit Diggs MONO # 0.8 103/ul Normal 0.3-0.8 [facility] Comment on above: Performed By: #### C BC #### [facility] [address] [place] [address] Dr. Benoit Diggs Monocytes/100 WBC (Bld) 7.9 % Normal 1.7-12.0 [facility] Comment on above: Performed By: #### C BC #### [facility] [address] [place] [address] Dr. Benoit Diggs NEUT # 5.4 103/ul Normal 1.4-6.5 [facility] Comment on above: Performed By: #### C BC #### [facility] [address] [place] [address] Dr. Benoit Diggs Neutrophils/100 WBC (Bld) 57.1 % Normal 43.0-75.0 [facility] Comment on above: Performed By: #### C BC #### [facility] [address] [address] [address] Benoit Diggs Platelet mean volume (Bld) [Entitic vol] 11.9 fL Normal 9.5-13.5 [facility] Comment on above: Performed By: #### C BC #### [facility] [address] [address] [address] Benoit Diggs PLT 180 103/ul Normal 150-450 [facility] Comment on above: Performed By: #### C BC #### [facility] [address] [address] [address] Benoit Diggs RBC 2.76 106/ul Critically low 4.20-5.40 [facility] Comment on above: Performed By: #### C BC #### [facility] [address] [address] [address] Benoit Diggs WBC 9.5 103/ul Normal 4.0-11.0 [facility] Comment on above: Performed By: #### C BC #### [facility] [address] [address] [address] Benoit Diggs AMNISUREon 12-01-2022 AMNISURE Negative Normal NEGATIVE [facility] Comment on above: Performed By: #### C BC #### [facility] [address] [place] [address] Dr. Benoit Diggs CBC AUTO DIFFon 12-01-2022 BASO # 0.1 103/ul Normal 0.0-0.1 [facility] Comment on above: Performed By: #### C BC ####[facility] [address] [address]Dr. Benoit Diggs Basophils/100 WBC (Bld) 0.6 % Normal 0.2-2.0 [facility] Comment on above: Performed By: #### C BC ####[facility] [address] [address]Dr. Benoit Diggs EO # 0.4 103/ul Normal 0.0-0.7 [facility] Comment on above: Performed By: #### C BC ####[facility] [address] [address]Dr. Benoit Diggs Eosinophils/100 WBC (Bld) 3.5 % Normal 0.9-7.0 [facility] Comment on above: Performed By: #### C BC ####[facility] [address] [address]Dr. Benoit Diggs Erythrocyte distribution width (RBC) [Ratio] 15.4 % Critically high 11.0-15.0 [facility] Comment on above: Performed By: #### C BC ####[facility] [address] [address]Dr. Benoit Diggs Hematocrit (Bld) [Volume fraction] 26.4 % Critically low 36.0-48.0 [facility] Comment on above: Performed By: #### C BC ####[facility] [address] [address]Dr. Benoit Diggs Hemoglobin (Bld) [Mass/Vol] 8.4 g/dL Critically low 12.0-16.0 [facility] Comment on above: Performed By: #### C BC ####[facility] [address] [place], [place] [address]Dr. Benoit Diggs IG # 0.04 10e3/ul Critically high 0.00-0.03 [facility] Comment on above: Performed By: #### C BC ####[facility] [address] [place], [place] [address]Dr. Benoit Diggs IG % 0.4 % Normal 0.0-0.5 [facility] Comment on above: Performed By: #### C BC ####[facility] [address] [place], [place] [address]Dr. Benoit Diggs LYMPH # 2.8 103/ul Normal 1.2-3.8 [facility] Comment on above: Performed By: #### C BC ####[facility] [address] [place], [place] [address]Dr. Benoit Diggs Lymphocytes/100 WBC (Bld) 26.9 % Normal 20.5-60.0 [facility] Comment on above: Performed By: #### C BC ####[facility] [address] [address]Dr. Benoit Dontae MANUAL DIFF REQ NO Normal [facility] Comment on above: Performed By: #### C BC ####[facility] [address] [address]Dr. Benoit Diggs MCH (RBC) [Entitic mass] 24.7 pg Critically low 26.7-34.0 [facility] Comment on above: Performed By: #### C BC ####[facility] [address] [place], [place] [address]Dr. Benoti Dontae MCHC (RBC) [Mass/Vol] 31.8 g/dL Normal 29.9-35.2 [facility] Comment on above: Performed By: #### C BC ####[facility] [address] [place], [place] [address]Dr. Benoit Dontae MCV (RBC) [Entitic vol] 77.6 fL Critically low 81.0-99.0 [facility] Comment on above: Performed By: #### C BC ####[facility] [address] [place], [place] [address]Dr. Benoit Dontae MONO # 0.7 103/ul Normal 0.3-0.8 [facility] Comment on above: Performed By: #### C BC ####[facility] [address] [place], [place] [address]Dr. Karyaurora Diggs Monocytes/100 WBC (Bld) 6.2 % Normal 1.7-12.0 [facility] Comment on above: Performed By: #### C BC ####[facility] [address] [address]Dr. Benoit Dontae NEUT # 6.5 103/ul Normal 1.4-6.5 [facility] Comment on above: Performed By: #### C BC ####[facility] [address] [place], [place] [address]Dr. aKryaurora Diggs Neutrophils/100 WBC (Bld) 62.4 % Normal 43.0-75.0 [facility] Comment on above: Performed By: #### C BC ####[facility] [address] [address]Dr. Benoit Diggs Platelet mean volume (Bld) [Entitic vol] 11.0 fL Normal 9.5-13.5 [facility] Comment on above: Performed By: #### C BC ####[facility] [address] [address]Dr. Benoit Diggs PLT 215 103/ul Normal 150-450 [facility] Comment on above: Performed By: #### C BC ####[facility] [address] [address]Dr. Benoit Diggs RBC 3.40 106/ul Critically low 4.20-5.40 [facility] Comment on above: Performed By: #### C BC ####[facility] [address] [address]Dr. Benoit Diggs WBC 10.4 103/ul Normal 4.0-11.0 [facility] Comment on above: Performed By: #### C BC ####[facility] [address] [address]Dr. Benoit Diggs DRUG SCREEN RAPID (URINE)on 12-01-2022 AMP Negative Normal NEGATIVE [facility] Comment on above: Performed By: #### C BC #### [facility] [address] [address] [address] Benoit Diggs BAR Negative Normal NEGATIVE [facility] Comment on above: Performed By: #### C BC #### [facility] [address] [address] [address] Benoit Diggs BUP Negative Normal NEGATIVE [facility] Comment on above: Performed By: #### C BC #### [facility] [address] [address] [address] Benoit Diggs BZO Negative Normal NEGATIVE [facility] Comment on above: Performed By: #### C BC #### [facility] [address] [place] [address] Dr. Benoit Diggs JOSE MANUEL Negative Normal NEGATIVE [facility] Comment on above: Performed By: #### C BC #### [facility] [address] [address] [address] Benoit Diggs CUT-OFFS SEE BELOW Normal [...] ng/mL Performed By: #### C BC #### [facility] [address] [place] [address] Dr. Benoit Diggs DRUG CUT HEADER DRUG CLASS TEST SYSTEM CUT-OFF CONCENTRATIONS ARE FOLLOWS: Normal [facility] Comment on above: Performed By: #### C BC #### [facility] [address] [place] [address] Dr. Benoit Diggs mAMP Negative Normal NEGATIVE [facility] Comment on above: Performed By: #### C BC #### [facility] [address] [place] [address] Dr. Benoit Diggs MTD Negative Normal NEGATIVE [facility] Comment on above: Performed By: #### C BC #### [facility] [address] [place] [address] Dr. Benoit Diggs OPI Negative Normal NEGATIVE [facility] Comment on above: Performed By: #### C BC #### [facility] [address] [place] [address] Dr. Benoit Diggs OXY Negative Normal NEGATIVE [facility] Comment on above: Performed By: #### C BC #### [facility] [address] [place] [address] Dr. Benoit Diggs PCP Negative Normal NEGATIVE [facility] Comment on above: Performed By: #### C BC #### [facility] [address] [place] [address] Dr. Benoit Diggs PPX Negative Normal NEGATIVE [facility] Comment on above: Performed By: #### C BC #### [facility] [address] [place] [address] Dr. Benoit Diggs TCA Negative Normal NEGATIVE [facility] Comment on above: Performed By: #### C BC #### [facility] [address] [place] [address] Dr. Benoit Diggs THC Negative Normal NEGATIVE [facility] Comment on above: Performed By: #### C BC #### [facility] [address] [place] [address] Dr. Benoit Diggs TYPE AND SCREENon 12-01-2022 TYPE AND SCREEN Negative Normal [facility] Comment on above: Performed By: #### T NS #### [facility] [address] [place] [address] Dr. Benoit Diggs UA (CLEAN/CATCH) QUARTZ CUTTER/MICRO I F IND.on 12-01-2022 Bilirubin Ql (U) Negative Normal NEGATIVE [facility] Comment on above: Performed By: #### C BC #### [facility] [address] [place] [address] Dr. Benoit Diggs Clarity (U) CLEAR Normal CLEAR [facility] Comment on above: Performed By: #### C BC #### [facility] [address] [place] [address] Dr. Benoit Diggs Color (U) YELLOW Normal YELLOW [facility] Comment on above: Performed By: #### C BC #### [facility] [address] [place] [address] Dr. Benoit Diggs Glucose Ql (U) Negative Normal NEGATIVE [facility] Comment on above: Performed By: #### C BC #### [facility] [address] [place] [address] Dr. Benoit Diggs Hemoglobin Ql (U) Negative Normal NEGATIVE [facility] Comment on above: Performed By: #### C BC #### [facility] [address] [place] [address] Dr. Benoit Diggs Ketones Ql (U) Negative Normal NEGATIVE [facility] Comment on above: Performed By: #### C BC #### [facility] [address] [place] [address] Dr. Benoit Diggs LEUKOCYTES Negative Normal NEGATIVE [facility] Comment on above: Performed By: #### C BC #### [facility] [address] [place] [address] Dr. Benoit Diggs Nitrite Ql (U) Negative Normal NEGATIVE [facility] Comment on above: Performed By: #### C BC #### [facility] [address] [place] [address] Dr. Benoit Diggs pH (U) 6.0 [pH] Normal 5-9 [facility] Comment on above: Performed By: #### C BC #### [facility] [address] [place] [address] Dr. Benoit Diggs SPEC GRAVITY 1.010 Normal 1.005-<=1.025 [facility] Comment on above: Performed By: #### C BC #### [facility] [address] [place] [address] Dr. Benoit Diggs UA PROTEIN TRACE Normal NEGATIVE/ TRACE [facility] Comment on above: Performed By: #### C BC #### [facility] [address] [place] [address] Dr. Benoit Diggs UR MICRO IND NOT INDICATED Normal [facility] Comment on above: Performed By: #### C BC #### [facility] [address] [place] [address] Dr. Benoit Diggs Urobilinogen Qn (U) 4 {Nadege'U}/dL Abnormal 0.2 - 1.0 [facility] Comment on above: Performed By: #### C BC #### [facility] [address] [place] [address] Dr. Benoit Diggs CULTURE URINEon 11-29-2022 CULTURE URINE Culture Observations: MODERATE GROWTH OF MIXED GENITAL RIZWAN. NO POTENTIAL PATHOGENS SEEN. Normal [facility] Comment on above: Performed By: #### U RCX #### [facility] [address] [place] [address] Dr. Benoit Diggs UA (CLEAN/CATCH) QUARTZ CUTTER/MICRO I F IND.on 11-29-2022 Bilirubin Ql (U) SMALL Abnormal NEGATIVE [facility] Comment on above: Performed By: #### C BC #### [facility] [address] [place] [address] Dr. Benoit Diggs Clarity (U) CLEAR Normal CLEAR [facility] Comment on above: Performed By: #### C BC #### [facility] [address] [place] [address] Dr. Benoit Diggs Color (U) DK. ORANGE Abnormal YELLOW [facility] Comment on above: Performed By: #### C BC #### [facility] [address] [place] [address] Dr. Benoit Diggs Glucose Ql (U) Negative Normal NEGATIVE [facility] Comment on above: Performed By: #### C BC #### [facility] [address] [place] [address] Dr. Benoit Diggs Hemoglobin Ql (U) Negative Normal NEGATIVE [facility] Comment on above: Performed By: #### C BC #### [facility] [address] [place] [address] Dr. Benoit Diggs Ketones Ql (U) TRACE Abnormal NEGATIVE [facility] Comment on above: Performed By: #### C BC #### [facility] [address] [place] [address] Dr. Benoit Diggs LEUKOCYTES SMALL Abnormal NEGATIVE [facility] Comment on above: Performed By: #### C BC #### [facility] [address] [place] [address] Dr. Benoit Diggs Nitrite Ql (U) Negative Normal NEGATIVE [facility] Comment on above: Performed By: #### C BC #### [facility] [address] [place] [address] Dr. Benoit Diggs pH (U) 5.5 [pH] Normal 5-9 [facility] Comment on above: Performed By: #### C BC #### [facility] [address] [place] [address] Dr. Benoit Diggs SPEC GRAVITY >=1.030 Abnormal 1.005-<=1.025 [facility] Comment on above: Performed By: #### C BC #### [facility] [address] [place] [address] Dr. Benoit Diggs UA PROTEIN 100 mg/dl Abnormal NEGATIVE/ TRACE [facility] Comment on above: Performed By: #### C BC #### [facility] [address] [place] [address] Dr. Benoit Diggs UR MICRO IND INDICATED Normal [facility] Comment on above: Performed By: #### C BC #### [facility] [address] [place] [address] Dr. Benoit Diggs Urobilinogen Qn (U) 8 {Nadege'U}/dL Abnormal 0.2 - 1.0 [facility] Comment on above: Performed By: #### C BC #### [facility] [address] [place] [address] Dr. Benoit Diggs URINE MICROSCOPIC ONLYon BACTERIA MODERATE Abnormal NONE SEEN [facility] Comment on above: Performed By: #### C BC #### [facility] [address] [place] [address] Dr. Benoit Diggs Bacteria identified Cx Nom (U) INDICATED Normal [facility] Comment on above: Performed By: #### C BC #### [facility] [address] [place] [address] Dr. Benoit Diggs CAST NONE SEEN Normal NONE SEEN [facility] Comment on above: Performed By: #### C BC #### [facility] [address] [place] [address] Dr. Benoit Diggs Crystals LM Nom (Urine sed) NONE SEEN Normal NONE SEEN [facility] Comment on above: Performed By: #### C BC #### [facility] [address] [place] [address] Dr. Benoit Diggs Epithelial cells LM Ql (Urine sed) MANY Abnormal NONE SEEN /RARE [facility] Comment on above: Performed By: #### C BC #### [facility] [address] [place] [address] Dr. Benoit Diggs MUCOUS SMALL Abnormal NONE SEEN [facility] Comment on above: Performed By: #### C BC #### [facility] [address] [place] [address] Dr. Benoit Diggs RBC 5-10 Abnormal 0-2 [facility] Comment on above: Performed By: #### C BC #### [facility] [address] [place] [address] Dr. Benoit Diggs WBC 20-50 Abnormal NONE SEEN [facility] Comment on above: Performed By: #### C BC #### [facility] [address] [place] [address] Dr. Benoit Diggs GROUP B STREP CULTUREon 10-22 S. agalactiae Ag Ql (Unsp spec) Culture Observations: NEGATIVE FOR GROUP B STREPTOCOCCUS. Normal [facility] Comment on above: Performed By: #### G BSCX #### [facility] [address] [place] [address] Dr. Benoit Diggs CBC AUTO DIFFon 09-22-2022 BASO # 0.0 103/ul Normal 0.0-0.1 [facility] Comment on above: Performed By: #### C BC #### [facility] [address] [place] [address] Dr. Benoit Diggs Basophils/100 WBC (Bld) 0.3 % Normal 0.2-2.0 [facility] Comment on above: Performed By: #### C BC #### [facility] [address] [place] [address] Dr. Benoit Diggs EO # 0.1 103/ul Normal 0.0-0.7 [facility] Comment on above: Performed By: #### C BC #### [facility] [address] [place] [address] Dr. Benoit Diggs Eosinophils/100 WBC (Bld) 2.0 % Normal 0.9-7.0 [facility] Comment on above: Performed By: #### C BC #### [facility] [address] [place] [address] Dr. Benoit Diggs Erythrocyte distribution width (RBC) [Ratio] 12.7 % Normal 11.0-15.0 [facility] Comment on above: Performed By: #### C BC #### [facility] [address] [address] [address] Benoit Diggs Hematocrit (Bld) [Volume fraction] 30.6 % Critically low 36.0-48.0 [facility] Comment on above: Performed By: #### C BC #### [facility] [address] [address] [address] Benoit Diggs Hemoglobin (Bld) [Mass/Vol] 10.1 g/dL Critically low 12.0-16.0 [facility] Comment on above: Performed By: #### C BC #### [facility] [address] [address] [address] Benoit Diggs IG # 0.03 10e3/ul Normal 0.00-0.03 [facility] Comment on above: Performed By: #### C BC #### [facility] [address] [place] [address] Dr. Benoit Diggs IG % 0.5 % Normal 0.0-0.5 [facility] Comment on above: Performed By: #### C BC #### [facility] [address] [place] [address] Dr. Benoit Diggs LYMPH # 0.6 103/ul Critically low 1.2-3.8 [facility] Comment on above: Performed By: #### C BC #### [facility] [address] [place] [address] Dr. Benoit Diggs Lymphocytes/100 WBC (Bld) 10.7 % Critically low 20.5-60.0 [facility] Comment on above: Performed By: #### C BC #### [facility] [address] [place] [address] Dr. Benoit Diggs MANUAL DIFF REQ NO Normal [facility] Comment on above: Performed By: #### C BC #### [facility] [address] [place] [address] Dr. Benoit Diggs MCH (RBC) [Entitic mass] 28.9 pg Normal 26.7-34.0 [facility] Comment on above: Performed By: #### C BC #### [facility] [address] [place] [address] Dr. Benoit Diggs MCHC (RBC) [Mass/Vol] 33.0 g/dL Normal 29.9-35.2 [facility] Comment on above: Performed By: #### C BC #### [facility] [address] [address] [address] Benoit Diggs MCV (RBC) [Entitic vol] 87.4 fL Normal 81.0-99.0 [facility] Comment on above: Performed By: #### C BC #### [facility] [address] [place] [address] Dr. Benoit Diggs MONO # 0.6 103/ul Normal 0.3-0.8 [facility] Comment on above: Performed By: #### C BC #### [facility] [address] [place] [address] Dr. Benoit Diggs Monocytes/100 WBC (Bld) 10.9 % Normal 1.7-12.0 [facility] Comment on above: Performed By: #### C BC #### [facility] [address] [place] [address] Dr. Benoit Diggs NEUT # 4.4 103/ul Normal 1.4-6.5 [facility] Comment on above: Performed By: #### C BC #### [facility] [address] [place] [address] Dr. Benoit Diggs Neutrophils/100 WBC (Bld) 75.6 % Critically high 43.0-75.0 [facility] Comment on above: Performed By: #### C BC #### [facility] [address] [place] [address] Dr. Benoit Diggs Platelet mean volume (Bld) [Entitic vol] 10.9 fL Normal 9.5-13.5 [facility] Comment on above: Performed By: #### C BC #### [facility] [address] [place] [address] Dr. Benoit Diggs PLT 191 103/ul Normal 150-450 [facility] Comment on above: Performed By: #### C BC #### [facility] [address] [place] [address] Dr. Benoit Diggs RBC 3.50 106/ul Critically low 4.20-5.40 [facility] Comment on above: Performed By: #### C BC #### [facility] [address] [place] [address] Dr. Benoit Diggs WBC 5.9 103/ul Normal 4.0-11.0 [facility] Comment on above: Performed By: #### C BC #### [facility] [address] [place] [address] Dr. Benoit Diggs CULTURE URINEon 09-22-2022 CULTURE URINE Culture Observations: HEAVY GROWTH OF MIXED GENITAL RIZWAN. NO POTENTIAL PATHOGENS SEEN. Normal [facility] Comment on above: Performed By: #### U RCX #### [facility] [address] [place] [address] Dr. Benoit Diggs ER URINE PROFILEon Bilirubin Ql (U) Negative Normal NEGATIVE [facility] Comment on above: Performed By: #### H IV12 #### [facility] [address] [place] [address] Dr. Benoit Diggs Clarity (U) CLEAR Normal CLEAR [facility] Comment on above: Performed By: #### H IV12 #### [facility] [address] [place] [address] Dr. Benoit Diggs Color (U) YELLOW Normal YELLOW [facility] Comment on above: Performed By: #### H IV12 #### [facility] [address] [place] [address] Dr. Benoit VELA A micrscopic examination will be performed if indicated. Normal [facility] Comment on above: Performed By: #### H IV12 #### [facility] [address] [place] [address] Dr. Benoit Diggs Glucose Ql (U) Negative Normal NEGATIVE The [facility] Comment on above: Performed By: #### H IV12 #### [facility] [address] [place] [address] Dr. Benoit Diggs Hemoglobin Ql (U) Negative Normal NEGATIVE [facility] Comment on above: Performed By: #### H IV12 #### [facility] [address] [place] [address] Dr. Benoit Diggs Ketones Ql (U) 15 mg/dl Abnormal NEGATIVE The [facility] Comment on above: Performed By: #### H IV12 #### [facility] [address] [place] [address] Dr. Benoit Diggs LEUKOCYTES Negative Normal NEGATIVE [facility] Comment on above: Performed By: #### H IV12 #### [facility] [address] [place] [address] Dr. Benoit Diggs Nitrite Ql (U) Negative Normal NEGATIVE The [facility] Comment on above: Performed By: #### H IV12 #### [facility] [address] [place] [address] Dr. Benoit Diggs pH (U) 6.5 [pH] Normal 5-9 [facility] Comment on above: Performed By: #### H IV12 #### [facility] [address] [place] [address] Dr. Benoit Diggs SPEC GRAVITY 1.025 Normal 1.005-<=1.025 [facility] Comment on above: Performed By: #### H IV12 #### [facility] [address] [place] [address] Dr. Benoit Diggs UA PROTEIN TRACE Normal NEGATIVE/ TRACE [facility] Comment on above: Performed By: #### H IV12 #### [facility] [address] [place] [address] Dr. Benoit Diggs UR MICRO IND INDICATED Normal [facility] Comment on above: Performed By: #### H IV12 #### [facility] [address] [place] [address] Dr. Benoit Diggs Urobilinogen Qn (U) 1.0 {Nadege'U}/dL Normal 0.2 - 1. 0 [facility] Comment on above: Performed By: #### H IV12 #### [facility] [address] [place] [address] Dr. Benoit Diggs INFLUENZA A AND B AGon 09-22 INFLUANEGH SEE BELOW Normal [facility] Comment on above: Result Comment: Nega tive for Flu A protein angiten. Infection due to Flu A cannot be ruled out. Flu A angiten in the sample may be below the detection limit of the test. Performed By: #### H IV12 #### [facility] [address] [place] [address] Dr. Benoit Diggs [facility] SEE BELOW Normal [facility] Comment on above: Result Comment: Nega tive for Flu B protein antigen. Infection due to Flu B cannot be ruled out. Flu B antigen in the sample may be below the detection limit of the test. Performed By: #### H IV12 #### [facility] [address] [place] [address] Dr. Benoit Diggs INFLUENZA A AG Negative Normal NEGATIVE SEE COMMENT [facility] Comment on above: Performed By: #### H IV12 #### [facility] [address] [place] [address] Dr. Benoit Diggs INFLUENZA B AG Negative Normal NEGATIVE SEE COMMENT [facility] Comment on above: Performed By: #### H IV12 #### [facility] [address] [place] [address] Dr. Benoit Diggs INTERNAL CONTROLS Within Normal Limits Normal Wi thin Normal Limits [facility] Comment on above: Performed By: #### H IV12 #### [facility] [address] [place] [address] Dr. Benoit Diggs PROF CHEM 8 (BAS METB)on Anion gap [Moles/Vol] 11.6 mmol/L Normal [facility] Comment on above: Performed By: #### C BC #### [facility] [address] [place] [address] Dr. Benoit Diggs Calcium [Mass/Vol] 8.2 mg/dL Critically low 8.5-10.1 [facility] Comment on above: Performed By: #### C BC #### [facility] [address] [place] [address] Dr. Benoit Diggs Chloride [Moles/Vol] 100 mmol/L Normal 98-107 [facility] Comment on above: Performed By: #### C BC #### [facility] [address] [address] [address] Benoit Diggs CO2 [Moles/Vol] 23.9 mmol/L Normal 21.0-32.0 [facility] Comment on above: Performed By: #### C BC #### [facility] [address] [place] [address] Dr. Benoit Diggs Creatinine [Mass/Vol] 0.48 mg/dL Critically low 0.55-1.02 [facility] Comment on above: Performed By: #### C BC #### [facility] [address] [place] [address] Dr. Benoit Diggs EGFR-AF KOSOVAN >60 Normal >=60 [facility] Comment on above: Performed By: #### C BC #### [facility] [address] [place] [address] Dr. Benoit Diggs EGFR-NON AF KOSOVAN >60 Normal >=60 [facility] Comment on above: Performed By: #### C BC #### [facility] [address] [place] [address] Dr. Benoit Diggs Glucose [Mass/Vol] 94 mg/dL Normal 74-106 [facility] Comment on above: Performed By: #### C BC #### [facility] [address] [place] [address] Dr. Benoit Diggs Potassium [Moles/Vol] 3.5 mmol/L Normal 3.5-5.1 [facility] Comment on above: Performed By: #### C BC #### [facility] [address] [address] [address] Benoit Diggs Sodium [Moles/Vol] 132 mmol/L Critically low 136-145 [facility] Comment on above: Performed By: #### C BC #### [facility] [address] [place] [address] Dr. Benoit Diggs Urea nitrogen [Mass/Vol] 6.0 mg/dL Critically low 7.0-18.0 [facility] Comment on above: Performed By: #### C BC #### [facility] [address] [place] [address] Dr. Benoit Diggs Urea nitrogen/Creatinine [Mass ratio] 12.5 mg/mg Normal [facility] Comment on above: Performed By: #### C BC #### [facility] [address] [address] [address] Benoit Diggs RESPIRATORY PANEL PLUSon Adenovirus Not detected Normal NOT DETECTED [facility] Comment on above: Performed By: #### R SPLUS ####[facility] [address] [address]Dr. Benoit Diggs B. Parapertusis Not detected Normal NOT DETECTED The [facility] Comment on above: Performed By: #### R SPLUS ####[facility] [address] [place], [place] [address]Dr. Benoit Diggs B. Pertussis Not detected Normal NOT DETECTED The [facility] Comment on above: Performed By: #### R SPLUS ####[facility] [address] [address]Dr. Benoit Diggs Chlamydia Pneumoniae Not detected Normal NOT DETECTED [facility] Comment on above: Performed By: #### R SPLUS ####[facility] [address] [place], [place] [address]Dr. Benoit Diggs Coronavirus 229E Not detected Normal NOT DETECTED [facility] Comment on above: Performed By: #### R SPLUS ####[facility] [address] [place], [place] [address]Dr. Benoit Diggs Coronavirus HKU1 Not detected Normal NOT DETECTED [facility] Comment on above: Performed By: #### R SPLUS ####[facility] [address] [place], [place] [address]Dr. Benoit Diggs Coronavirus NL63 Not detected Normal NOT DETECTED [facility] Comment on above: Performed By: #### R SPLUS ####[facility] [address] [place], [place] [address]Dr. Benoit Diggs Coronavirus OC43 Not detected Normal NOT DETECTED [facility] Comment on above: Performed By: #### R SPLUS ####[facility] [address] [place], [place] [address]Dr. Benoit Diggs Influenza A H1 2009 Detected Abnormal NOT DETECTED [facility] Comment on above: Performed By: #### R SPLUS ####[facility] [address] [address]Dr. Benoit Diggs Influenza A H3 Not detected Normal NOT DETECTED The [facility] Comment on above: Performed By: #### R SPLUS ####[facility] [address] [address]Dr. Yiaurora Diggs Influenza B Not detected Normal NOT DETECTED The [facility] Comment on above: Performed By: #### R SPLUS ####[facility] [address] [place], [place] [address]Dr. Yiaurora Diggs Metapneumovirus Not detected Normal NOT DETECTED The [facility] Comment on above: Performed By: #### R SPLUS ####[facility] [address] [place], [place] [address]Dr. Benoit Diggs Mycoplas. Pneumoniae Not detected Normal NOT DETECTED [facility] Comment on above: Performed By: #### R SPLUS ####[facility] [address] [place], [place] [address]Dr. Yiaurora Diggs Parainfluenza 1 Not detected Normal NOT DETECTED The [facility] Comment on above: Performed By: #### R SPLUS ####[facility] [address] [place], [place] [address]Dr. Yiaurora Diggs Parainfluenza 2 Not detected Normal NOT DETECTED The [facility] Comment on above: Performed By: #### R SPLUS ####[facility] [address] [place], [place] [address]Dr. Yiaurora Diggs Parainfluenza 3 Not detected Normal NOT DETECTED The [facility] Comment on above: Performed By: #### R SPLUS ####[facility] [address] [place], [place] [address]Dr. Yiaurora Diggs Parainfluenza 4 Not detected Normal NOT DETECTED The [facility] Comment on above: Performed By: #### R SPLUS ####[facility] [address] [place], [place] [address]Dr. Yiaurora Diggs Rhino/Enterovirus Not detected Normal NOT DETECTED [facility] Comment on above: Performed By: #### R SPLUS ####[facility] [address] [id number]. Benoit Diggs RP2 Header 1 RESPIRATORY PANEL: VIRUSES Normal [facility] Comment on above: Performed By: #### R SPLUS ####[facility] [address] [id number]. Benoit Diggs RP2 Header 2 RESPIRATORY PANEL: BACTERIA Normal [facility] Comment on above: Performed By: #### R SPLUS ####[facility] [address] [id number]. Benoit Diggs RSV Not detected Normal NOT DETECTED The [facility] Comment on above: Performed By: #### R SPLUS ####[facility] [address] [id number]. Benoit Diggs SARS-CoV-2 (COVID-19) RNA RANDOLPH+probe Ql (Unsp spec) Not detected Normal NOT DETECTED [facility] Comment on above: Performed By: #### R SPLUS ####[facility] [address] [id number]. Benoit Diggs Result Comment: When diagnostic testing [...] for this test is supported by the Claims Configuration Analyst of Health and Human Service's declaration that [...] used). Performed By: #### H IV12 #### [facility] [id number] Benoit Diggs URINE MICROSCOPIC ONLYon BACTERIA TRACE Abnormal NONE SEEN [facility] Comment on above: Performed By: #### H IV12 #### [facility] [address] [place] [address] Dr. Benoit Diggs Bacteria identified Cx Nom (U) INDICATED Normal [facility] Comment on above: Performed By: #### H IV12 #### [facility] [address] [place] [address] Dr. Benoit Diggs CAST NONE SEEN Normal NONE SEEN [facility] Comment on above: Performed By: #### H IV12 #### [facility] [address] [place] [address] Dr. Benoit Diggs Crystals LM Nom (Urine sed) NONE SEEN Normal NONE SEEN [facility] Comment on above: Performed By: #### H IV12 #### [facility] [address] [place] [address] Dr. Benoit Diggs Epithelial cells LM Ql (Urine sed) MODERATE Abnormal NONE SEEN /RARE [facility] Comment on above: Performed By: #### H IV12 #### [facility] [address] [place] [address] Dr. Benoit Diggs MUCOUS NONE SEEN Normal NONE SEEN [facility] Comment on above: Performed By: #### H IV12 #### [facility] [address] [place] [address] Dr. Benoit Diggs RBC 0-2 Normal 0-2 [facility] Comment on above: Performed By: #### H IV12 #### [facility] [address] [place] [address] Dr. Benoit Diggs WBC 5-10 Abnormal NONE SEEN [facility] Comment on above: Performed By: #### H IV12 #### [facility] [address] [place] [address] Dr. Benoit Diggs CBC AUTO DIFFon 09-09-2022 BASO # 0.1 103/ul Normal 0.0-0.1 [facility] Comment on above: Performed By: #### C BC #### [facility] [address] [place] [address] Dr. Benoit Diggs Basophils/100 WBC (Bld) 0.5 % Normal 0.2-2.0 [facility] Comment on above: Performed By: #### C BC #### [facility] [address] [place] [address] Dr. Benoit Diggs EO # 0.4 103/ul Normal 0.0-0.7 [facility] Comment on above: Performed By: #### C BC #### [facility] [address] [place] [address] Dr. Benoit Diggs Eosinophils/100 WBC (Bld) 4.1 % Normal 0.9-7.0 [facility] Comment on above: Performed By: #### C BC #### [facility] [address] [place] [address] Dr. Benoit Diggs Erythrocyte distribution width (RBC) [Ratio] 12.8 % Normal 11.0-15.0 [facility] Comment on above: Performed By: #### C BC #### [facility] [address] [place] [address] Dr. Benoit Diggs Hematocrit (Bld) [Volume fraction] 31.4 % Critically low 36.0-48.0 [facility] Comment on above: Performed By: #### C BC #### [facility] [address] [place] [address] Dr. Benoit Diggs Hemoglobin (Bld) [Mass/Vol] 10.5 g/dL Critically low 12.0-16.0 [facility] Comment on above: Performed By: #### C BC #### [facility] [address] [place] [address] Dr. Benoit Diggs IG # 0.05 10e3/ul Critically high 0.00-0.03 [facility] Comment on above: Performed By: #### C BC #### [facility] [address] [place] [address] Dr. Benoit Diggs IG % 0.5 % Normal 0.0-0.5 [facility] Comment on above: Performed By: #### C BC #### [facility] [address] [place] [address] Dr. Benoit Diggs LYMPH # 2.2 103/ul Normal 1.2-3.8 [facility] Comment on above: Performed By: #### C BC #### [facility] [address] [place] [address] Dr. Benoit Diggs Lymphocytes/100 WBC (Bld) 21.9 % Normal 20.5-60.0 [facility] Comment on above: Performed By: #### C BC #### [facility] [address] [place] [address] Dr. Benoit Diggs MANUAL DIFF REQ NO Normal [facility] Comment on above: Performed By: #### C BC #### [facility] [address] [place] [address] Dr. Benoit Diggs MCH (RBC) [Entitic mass] 29.7 pg Normal 26.7-34.0 [facility] Comment on above: Performed By: #### C BC #### [facility] [address] [place] [address] Dr. Benoit Diggs MCHC (RBC) [Mass/Vol] 33.4 g/dL Normal 29.9-35.2 [facility] Comment on above: Performed By: #### C BC #### [facility] [address] [place] [address] Dr. Benoit Diggs MCV (RBC) [Entitic vol] 89.0 fL Normal 81.0-99.0 [facility] Comment on above: Performed By: #### C BC #### [facility] [address] [place] [address] Dr. Benoit Diggs MONO # 0.6 103/ul Normal 0.3-0.8 [facility] Comment on above: Performed By: #### C BC #### [facility] [address] [place] [address] Dr. Benoit Diggs Monocytes/100 WBC (Bld) 5.7 % Normal 1.7-12.0 [facility] Comment on above: Performed By: #### C BC #### [facility] [address] [place] [address] Dr. Benoit Diggs NEUT # 6.8 103/ul Critically high 1.4-6.5 [facility] Comment on above: Performed By: #### C BC #### [facility] [address] [address] [address] Benoit Diggs Neutrophils/100 WBC (Bld) 67.3 % Normal 43.0-75.0 [facility] Comment on above: Performed By: #### C BC #### [facility] [address] [address] [address] Benoit Diggs Platelet mean volume (Bld) [Entitic vol] 11.0 fL Normal 9.5-13.5 [facility] Comment on above: Performed By: #### C BC #### [facility] [address] [address] [address] Benoit Diggs PLT 215 103/ul Normal 150-450 [facility] Comment on above: Performed By: #### C BC #### [facility] [address] [address] [address] Benoit Diggs RBC 3.53 106/ul Critically low 4.20-5.40 [facility] Comment on above: Performed By: #### C BC #### [facility] [address] [address] [address] Benoit Diggs WBC 10.2 103/ul Normal 4.0-11.0 [facility] Comment on above: Performed By: #### C BC #### [facility] [address] [address] [address] Benoit Diggs GLUCOSE - 1HRon 09-09-2022 Glucose [Mass/Vol] 116 mg/dL Critically high 74-106 T [facility] Comment on above: Performed By: #### G LU1HR ####[facility] [address] [address]Dr. Benoit Diggs PAP ACOG PANEL 2: 21 to 29on 08-13-2022 . . Normal [facility] Comment on above: Performed By: #### C BC #### [facility] [address] [address] [address] Benoit Diggs Age Gdln ACOG Testing - Normal [facility] Comment on above: Performed By: #### C BC #### [facility] [address] [address] [address] Benoit Diggs DIAGNOSIS: Comment Normal [facility] Comment on above: Result Comment: NEGA TIVE FOR INTRAEPITHELIAL LESION OR MALIGNANCY. Performed By: #### C BC #### [facility] [address] [id number] Benoit Diggs Methodology: Comment Normal [facility] Comment on above: Result Comment: This liquid based ThinPrep(R) pap test was screened with the use of an image guided system. Performed By: #### C BC #### [facility] [address] [address] [address] Benoit Diggs Note: Comment Normal [facility] [...] . Performed By: #### C BC #### [facility] [address] [address] [address] Benoit Diggs Performed by: Comment Normal [facility] Comment on above: Result Comment: Cynthia Smith, Sanitation Officer (ASCP) Performed By: #### C BC #### [facility] [address] [id number] Benoit Diggs Reflex Criteria: Comment Normal [facility] Comment on above: Result Comment: The HPV DNA reflex criteria were not met with this specimen result therefore, no HPV testing was performed. . Performed By: #### C BC #### [facility] [id number] eBnoit Diggs Specimen adequacy: Comment Normal [facility] Comment on above: Result Comment: Sati sfactory for evaluation. No endocervical component is identified. Performed By: #### C BC #### [facility] [id number] Benoit Diggs CHLAMYDIA/GONOCOCCUS RANDOLPH (SW AB/URINE/PAPon 10-20-2022 Chlamydia trachomatis, RANDOLPH Negative Normal Negative [facility] Comment on above: Performed By: #### H IV12 #### [facility] [address] [address] [address] Benoit Diggs Neisseria gonorrhoeae, RANDOLPH Negative Normal Negative [facility] Comment on above: Performed By: #### H IV12 #### [facility] [address] [address] [address] Benoit Diggs US PREG INCOMPLETE ANATOMYon [...] MYLENE SULLIVAN Date: 2022-08-07 20:09 Normal [facility] US PREG ANATOMY SINGLEon US [...] AISHWARYA MAGALLON Date: 2022-07-25 17:11 Normal [facility] AFP MATERNAL FOR SPINA BIFID Aon 07-17-2022 AFP MoM 0.55 Normal [facility] Comment on above: Performed By: #### H IV12 #### [facility] [address] [place] [address] Dr. Benoit Diggs AFP Value 20.0 ng/mL Normal [facility] Comment on above: Performed By: #### H IV12 #### [facility] [address] [address] [address] Benoit Diggs AFP, Serum for Spina Bifida Report Normal [facility] Comment on above: Performed By: #### H IV12 #### [facility] [address] [place] [address] Dr. Benoit Diggs Comment Comment Normal [facility] Comment on above: Result Comment: Ector Palafox, Ph.D., [facility] Director . References: Available Upon Request. . Multiples Of Median Cutoffs For AFP Elevations Caro 2.5 Black 2.8 IDD 2.0 Twins 4.5 Abbreviation Definitions IDD - Insulin Dep Diabetes OSBR - Open Spina Bifida Risk . For further inquiries contact [facility] at [phone]. . This test was developed and its performance characteristics determined by [employer]. It has not been cleared or approved by the Food and Drug Administration. Performed By: #### H IV12 #### [facility] [address] [place] [address] Dr. Benoit Diggs Gest Age Collection Date 18.1 weeks Normal [facility] Comment on above: Performed By: #### H IV12 #### [facility] [address] [address] [address] Benoit Diggs Gestat, Age Based on Ultrasound [facility] Comment on above: Result Comment: 13:1 on 06/06/2022 Recalculations are not recommended when gestational dating by LMP and ultrasound are within 10 days. Performed By: #### H IV12 #### [facility] [address] [address] [address] Benoit Diggs Insulin Dep Diabetes No Normal [facility] Comment on above: Performed By: #### H IV12 #### [facility] [address] [place] [address] Dr. Benoit Diggs Interpretation Comment Normal [facility] Comment on above: Result Comment: Inte [...] Customer Services to discuss available options. The [employer] recommends amniocentesis be offered to women age 35 and older. Performed By: #### H IV12 #### [facility] [address] [address] [address] Benoit Diggs [age] Normal [facility] Comment on above: Performed By: #### H IV12 #### [facility] [address] [place] [address] Dr. Benoit Diggs Multiple Gestation No Normal [facility] Comment on above: Performed By: #### H IV12 #### [facility] [address] [place] [address] Dr. Benoit Diggs OSBR [place] [address] Normal [facility] Comment on above: Performed By: #### H IV12 #### [facility] [address] [address] [address] Benoit Diggs PDF . Normal [facility] Comment on above: Performed By: #### H IV12 #### [facility] [address] [place] [address] Dr. Benoit Diggs Race Normal [facility] Comment on above: Performed By: #### H IV12 #### [facility] [address] [address] [address] Benoit Diggs Test Results: Negative Normal [facility] Comment on above: Performed By: #### H IV12 #### [facility] [address] [address] [address] Benoit Diggs HEP B SURFACE ANTIGEN SCREEN on 06-07-2022 HBsAg Screen Negative Normal Negative [facility] Comment on above: Performed By: #### H IV12 #### [facility] [address] [place] [address] Dr. Benoit Diggs HEPATITIS C VIRUS AB W/ REFL EX QUANTon 06-07-2022 HCV AB <0.1 Normal 0.0-0.9 [facility] Comment on above: Performed By: #### H IV12 #### [facility] [address] [place] [address] Dr. Benoit Diggs Interpretation: Comment Normal [facility] Comment on above: Result Comment: Nega tive Not infected with HCV, unless recent infection is suspected or other evidence exists to indicate HCV infection. Performed By: #### H IV12 #### [facility] [address] [place] [address] Dr. Benoit Diggs HIV 1 AND 2 WITH REFLEXon HIV Screen 4th Generation wRfx Non-Reactive Normal Non Reactive [facility] Comment on above: Result Comment: HIV Negative HIV-1/HIV-2 antibodies and HIV-1 p24 antigen were NOT detected. There is no laboratory evidence of HIV infection. Performed By: #### H IV12 #### [facility] [address] [place] [address] Dr. Benoit Diggs RPR QUANTon 06-07-2022 Rapid Plasma Reagin, Quant Non-Reactive Normal NonRea<1:1 [facility] Comment on above: Result Comment: Plea se Note: This test does not meet current guidelines for screening and diagnosis of syphilis. This test is intended for following treatment response in patients being treated for syphilis infection. To screen for syphilis infection, a reflex cascade that includes both RPR and a treponema-specific assay should be utilized, such as Treponema pallidum (Syphilis) Screening [place] (515943) or Rapid Plasma Reagin (RPR) Test With Reflex to Quantitative RPR and Confirmatory Treponema pallidum Antibodies (771960). Performed By: #### H IV12 #### [facility] [address] [place], [place] [address] Dr. Benoit Diggs RUBELLA AB IGGon 06-07-2022 Rubella Antibodies, IgG 3.22 index Normal Immune >0.99 [facility] Comment on above: Result Comment: Non- immune <0.90 Equivocal 0.90 - 0.99 Immune >0.99 Performed By: #### C BC #### [facility] [address] [address] [address] Benoit Diggs US PREG <14 WKSon [...] MYLENE SULLIVAN Date: 2022-06-06 22:25 Normal [facility] CBC AUTO DIFFon 06-06-2022 BASO # 0.1 103/ul Normal 0.0-0.1 [facility] Comment on above: Performed By: #### C BC #### [facility] [address] [place], [place] [address] Dr. Benoit Diggs Basophils/100 WBC (Bld) 0.6 % Normal 0.2-2.0 [facility] Comment on above: Performed By: #### C BC #### [facility] [address] [place] [address] Dr. Benoit Diggs EO # 0.3 103/ul Normal 0.0-0.7 [facility] Comment on above: Performed By: #### C BC #### [facility] [address] [place] [address] Dr. Benoit Diggs Eosinophils/100 WBC (Bld) 4.1 % Normal 0.9-7.0 [facility] Comment on above: Performed By: #### C BC #### [facility] [address] [place] [address] Dr. Benoit Diggs Erythrocyte distribution width (RBC) [Ratio] 13.9 % Normal 11.0-15.0 [facility] Comment on above: Performed By: #### C BC #### [facility] [address] [place] [address] Dr. Benoit Diggs Hematocrit (Bld) [Volume fraction] 36.0 % Normal 36.0-48.0 [facility] Comment on above: Performed By: #### C BC #### [facility] [address] [place] [address] Dr. Benoit Diggs Hemoglobin (Bld) [Mass/Vol] 12.0 g/dL Normal 12.0-16.0 [facility] Comment on above: Performed By: #### C BC #### [facility] [address] [place] [address] Dr. Benoit Diggs IG # 0.03 10e3/ul Normal 0.00-0.03 [facility] Comment on above: Performed By: #### C BC #### [facility] [address] [place] [address] Dr. Benoit Diggs IG % 0.4 % Normal 0.0-0.5 [facility] Comment on above: Performed By: #### C BC #### [facility] [address] [place] [address] Dr. Benoit Diggs LYMPH # 2.7 103/ul Normal 1.2-3.8 [facility] Comment on above: Performed By: #### C BC #### [facility] [address] [place] [address] Dr. Benoit Diggs Lymphocytes/100 WBC (Bld) 33.2 % Normal 20.5-60.0 [facility] Comment on above: Performed By: #### C BC #### [facility] [address] [place] [address] Dr. Benoit Diggs MANUAL DIFF REQ NO Normal [facility] Comment on above: Performed By: #### C BC #### [facility] [address] [place] [address] Dr. Benoit Diggs MCH (RBC) [Entitic mass] 29.4 pg Normal 26.7-34.0 [facility] Comment on above: Performed By: #### C BC #### [facility] [address] [place] [address] Dr. Benoit Diggs MCHC (RBC) [Mass/Vol] 33.3 g/dL Normal 29.9-35.2 [facility] Comment on above: Performed By: #### C BC #### [facility] [address] [place] [address] Dr. Benoit Diggs MCV (RBC) [Entitic vol] 88.2 fL Normal 81.0-99.0 [facility] Comment on above: Performed By: #### C BC #### [facility] [address] [place] [address] Dr. Benoit Diggs MONO # 0.5 103/ul Normal 0.3-0.8 [facility] Comment on above: Performed By: #### C BC #### [facility] [address] [place] [address] Dr. Benoit Diggs Monocytes/100 WBC (Bld) 6.6 % Normal 1.7-12.0 [facility] Comment on above: Performed By: #### C BC #### [facility] [address] [place] [address] Dr. Benoit Diggs NEUT # 4.4 103/ul Normal 1.4-6.5 [facility] Comment on above: Performed By: #### C BC #### [facility] [address] [address] [address] Benoit Diggs Neutrophils/100 WBC (Bld) 55.1 % Normal 43.0-75.0 [facility] Comment on above: Performed By: #### C BC #### [facility] [address] [address] [address] Benoit Diggs Platelet mean volume (Bld) [Entitic vol] 11.0 fL Normal 9.5-13.5 [facility] Comment on above: Performed By: #### C BC #### [facility] [address] [address] [address] Benoit Diggs PLT 225 103/ul Normal 150-450 [facility] Comment on above: Performed By: #### C BC #### [facility] [address] [address] [address] Benoit Diggs RBC 4.08 106/ul Critically low 4.20-5.40 [facility] Comment on above: Performed By: #### C BC #### [facility] [address] [address] [address] Benoit Diggs WBC 8.1 103/ul Normal 4.0-11.0 [facility] Comment on above: Performed By: #### C BC #### [facility] [id number] Benoit Diggs CULTURE URINEon 06-06-2022 CULTURE URINE Culture Observations: MODERATE GROWTH OF MIXED GENITAL RIZWAN. NO POTENTIAL PATHOGENS SEEN. Normal [facility] Comment on above: Performed By: #### U RCX ####[facility] [address] [place], [place] [address]OrDr. Benoit Diggs GLYCOHEMOGLOBIN A1Con 2021 ADA RECOMMENDATION SEE BELOW Normal [facility] Comment on above: Result Comment: ADA RECOMMENDED LIMIT 4.0 - 6.0 ADA THERAPEUTIC TARGET < 7.0 ACTION SUGGESTED > 7.0 Performed By: #### C BC #### [facility] [address] [address] [address] Benoit Diggs Glucose [Mass/Vol] 105 mg/dL Normal [facility] Comment on above: Performed By: #### C BC #### [facility] [id number] Benoit Diggs HbA1c (Bld) [Mass fraction] 5.3 % Normal 4.5-6.2 [facility] Comment on above: Performed By: #### C BC #### [facility] [address] [place], [place] [id number] Dr. Benoit Diggs DAVID BOX TEST PT SEND OUTo n 06-06-2022 SENT TO REF LAB 06/06/2022 Normal [facility] Comment on above: Performed By: #### H IV12 #### [facility] [address] [place] [address] Dr. Benoit Diggs TYPE AND SCREENon 06-06-2022 TYPE AND SCREEN Negative Normal [facility] Comment on above: Performed By: #### T NS #### [facility] [address] [place] [address] Dr. Benoit Diggs PREG QUANT HCGon 04-16-2022 HCG QUANT 55555 mIU/mL Normal [facility] Comment on above: Performed By: #### C BC #### [facility] [address] [place] [address] Dr. Benoit Diggs HCG RANGE SEE BELOW Normal [facility] Comment on above: Result Comment: 5-50 0-1 WEEK 40-300 1-2 WEEKS 100-1,000 2-3 WEEKS 500-6,000 3-4 WEEKS 5,000-200,000 1-2 MONTHS 10,000-100,000 2-3 MONTHS 3,000-50,000 2ND TRIMESTER 1,000-50,000 3RD TRIMESTER Performed By: #### C BC #### [facility] [address] [place], [place] [id number] Dr. Benoit Diggs Vital Signs Date Time Vital Sign Value Performing Clinician Facility 07-05-2025 14:07040 Body mass index (BMI) [Ratio] 54 kg/m2 Gia LYNN Work Phone: [facility] 07-05-2025 14: Body weight 129.64 kg Gia LYNN Work Phone: [facility] 07-05-2025 14:07-0400 Diastolic blood pressure 80 mm[Hg] Gia Vamsi LYNN Work Phone: [facility] 07-05-2025 14:07-0400 Systolic blood pressure 120 mm[Hg] Gia Vamsi LYNN Work Phone: [facility] 06-07-2025 13:59-0400 Body mass index (BMI) [Ratio] 53.17 kg/m2 Jefferson Anita DO Work Phone: [facility] 06-07-2025 13:59-0400 Body weight 127.64 kg Jefferson Anita DO Work Phone: [facility] 06-07-2025 13:59-0400 Diastolic blood pressure 68 mm[Hg] Jefferson Anita DO Work Phone: [facility] 06-07-2025 13:59-0400 Systolic blood pressure 108 mm[Hg] Jefferson Anita DO Work Phone: [facility] 05-05-2025 14:05-0400 Body mass index (BMI) [Ratio] 53.51 kg/m2 Anita Ob [facility] 05-05-2025 14:05-0400 Body weight 128.46 kg Anita Ob [facility] 05-05-2025 14:05-0400 Diastolic blood pressure 70 mm[Hg] Anita Ob [facility] 05-05-2025 14:05-0400 Systolic blood pressure 110 mm[Hg] Anita Ob [facility] 02-02-2025 10:44-0400 Body mass index (BMI) [Ratio] 52.91 kg/m2 Jefferson Anita DO Work Phone: [facility] 02-02-2025 10:44-0400 Body weight 127.01 kg Jefferson Anita DO Work Phone: [facility] 02-02-2025 10:44-0400 Diastolic blood pressure 74 mm[Hg] Jefferson Anita DO Work Phone: [facility] 02-02-2025 10:44-0400 Systolic blood pressure 112 mm[Hg] Jefferson Anita DO Work Phone: [facility] 01-17-2025 13:48-0400 Body mass index (BMI) [Ratio] 52.93 kg/m2 Jefferson Anita DO Work Phone: [facility] 01-17-2025 13:48-0400 Body weight 127.06 kg Jefferson Anita DO Work Phone: [facility] 01-17-2025 13:48-0400 Diastolic blood pressure 70 mm[Hg] Jefferson Anita DO Work Phone: [facility] 01-17-2025 13:48-0400 Systolic blood pressure 120 mm[Hg] Jefferson Anita DO Work Phone: [facility] 12-22-2024 10:54-0500 Body mass index (BMI) [Ratio] 52.93 kg/m2 Gia Vamsi PA Work Phone: [facility] 12-22-2024 10:54-0500 Body weight 127.06 kg Gia Vamsi PA Work Phone: [facility] 12-22-2024 10:54-0500 Diastolic blood pressure 90 mm[Hg] Gia Storden PA Work Phone: [facility] 12-22-2024 10:54-0500 Systolic blood pressure 116 mm[Hg] Gia Storden PA Work Phone: [facility] 12-02-2024 12:56-0500 Body mass index (BMI) [Ratio] 53.09 kg/m2 Jefferson Anita DO Work Phone: [facility] 12-02-2024 12:56-0500 Body weight 127.46 kg Jefferson Anita DO Work Phone: [facility] 12-02-2024 12:56-0500 Diastolic blood pressure 84 mm[Hg] Jefferson Anita DO Work Phone: [facility] 12-02-2024 12:56-0500 Systolic blood pressure 122 mm[Hg] Jefferson Anita DO Work Phone: [facility] 11-11-2024 08:42-0500 Body mass index (BMI) [Ratio] 53.55 kg/m2 Jefferson Anita DO Work Phone: [facility] 11-11-2024 08:42-0500 Body weight 128.55 kg Jefferson Anita DO Work Phone: [facility] 09-07-2024 14:06-0500 Diastolic blood pressure 71 mm[Hg] Manuel Noel MD Work Phone: [facility] 09-07-2024 14:06-0500 Heart rate 77 /min Manuel Noel MD Work Phone: [facility] 09-07-2024 14:06-0500 Respiratory rate 18 /min Manuel Noel MD Work Phone: [facility] 09-07-2024 14:06-0500 SaO2% (BldA) [Mass fraction] 98 % Manuel Noel MD Work Phone: [facility] 09-07-2024 14:06-0500 Systolic blood pressure 112 mm[Hg] Manuel Noel MD Work Phone: [facility] 09-07-2024 12:39-0500 Body height 154.94 cm Manuel Noel MD Work Phone: [facility] 09-07-2024 12:39-0500 Body weight 127 kg Manuel Noel MD Work Phone: [facility] 08-24-2024 09:31-0500 Body height 154.94 cm Manuel Noel MD Work Phone: [facility] 08-24-2024 09:31-0500 Body mass index (BMI) [Ratio] 53.4 kg/m2 Manuel Noel MD Work Phone: [facility] 08-24-2024 09:31-0500 Body weight 128.16 kg Manuel Noel MD Work Phone: [facility] 07-17-2022 [id number] Body weight 100.[address] DOCTOR ATKINSON [facility] Comment on above: Performed By: #### HIV12 #### [facility] [address] [place], [place] [address] Dr. Benoit Diggs Encounters Encounter Date Encounter Type Care Provider Facility Start: 07-25-2025 End: 07-26-2025 Clinisync Result Encounter Gia LYNN Work Phone: [facility] Unsolicited Start: 07-25-2025 End: 07-26-2025 Clinisync Result Encounter Gia LYNN Work Phone: [facility] Unsolicited Start: 07-05-2025 End: 07-05-2025 Bamboo flowsheet Gia LYNN Work Phone: [facility] Start: 07-05-2025 End: 07-06-2025 Bamboo flowsheet Gia LYNN Work Phone: [facility] Start: 07-05-2025 End: 07-06-2025 External Result Encounter Gia LYNN Work Phone: [facility] Unsolicited Start: 07-05-2025 End: 07-05-2025 Office outpatient visit 15 minutes Gia LYNN Work Phone: [facility] Comment on above: 15 weeks gestation o f ([facility]); Second trimester ([facility]); Exposure to STD; Vaginal discharge; Nausea Start: 07-05-2025 End: 07-05-2025 ambulatory GIA MAYO Not Available Start: 06-07-2025 End: 06-07-2025 Bamboo flowsheet Jefferson Anita DO Work Phone: [facility] Start: 06-07-2025 End: 06-07-2025 Bamboo flowsheet Jefferson Anita DO Work Phone: [facility] Start: 06-07-2025 End: 06-07-2025 Clinisync Result Encounter Jefferson Anita DO Work Phone: [facility] Unsolicited Start: 06-07-2025 End: 06-07-2025 Office outpatient visit 15 minutes Jefferson Anita DO Work Phone: [facility] Comment on above: First trimester preg kodi ([facility]); 11 weeks gestation of ([facility]); Right ovarian [...] 04-14-2025 End: 04-14-2025 Emergency department patient visit [facility] Start: 02-09-2025 End: 02-09-2025 Clinisync Result [...] 01-17-2025 ambulatory Manuel Noel MD Work Phone: [facility] Work Phone: Start: 01-17-2025 End: 01-17-2025 Departed Referred Manuel Noel MD Work Phone: [facility] Start: 01-12-2025 End: 01-12-2025 ambulatory JEFFERSON ANITA Not Available Start: 01-03-2025 End: 01-03-2025 ambulatory Manuel Noel MD Work Phone: [facility] Work Phone: Start: 01-03-2025 End: 01-03-2025 Departed Referred Manuel Noel MD Work Phone: [facility] Start: 12-22-2024 End: 12-22-2024 Bamboo flowsheet [...] [facility] Comment on above: control star deluca (Primary Dx); Well woman exam with routine [...] / Non-visit Manuel pelaez MD Work Phone: [facility] Work Phone: Start: 09-07-2024 End: 09-07-2024 Admission to same day surgery center Manuel Noel MD Work Phone: [facility] Work Phone: Start: 09-07-2024 End: 09-07-2024 ambulatory Manuel Noel MD Work Phone: [facility] Work Phone: Start: 08-28-2024 End: 08-28-2024 Emergency department patient visit MANUEL NOEL [facility] Start: 08-24-2024 End: 08-24-2024 Patient encounter procedure Manuel Noel MD Work Phone: [facility] Work Phone: Start: 07-01-2024 End: 07-01-2024 Clinisync Result Encounter Generic External Data Provider [facility] Unsolicited Start: 07-01-2024 End: 07-01-2024 Clinisync Result Encounter Generic External Data Provider [facility] Unsolicited Start: 06-10-2024 Non-patient / Non-visit Manuel pelaez MD Work Phone: [facility] Work Phone: Start: 03-02-2024 Patient encounter [...] Date Procedure Procedure Detail Performing Clinician Start: 07-25-2025 AFP, SERUM, OPEN SPINA BIFIDA Gia LYNN Work Phone: Start: 07-05-2025 Urnls dip stick/tablet rgnt non-auto [...] GDLN Gia LYNN Work Phone: Start: 12-02-2024 EXPLORATION DRILLER INSERTION/REMOVAL OF CONTRACEPTIVE CAPSULE Jefferson Jacksono DO Work Phone: Start: 11-11-2024 ALL CBC WITH AUTO DIFF Jefferson Anita DO Work Phone: Start: 09-07-2024 Esophagogastroduodenoscopy Manuel Noel MD Work Phone: Start: 07-01-2024 MHPT TRICHOMONAS/WET PREP Generic Line Clearance Foreman al Data Provider Start: 12-03-2022 Transfusion of [...] maternal Lab Routine 15 weeks gestation of ([facility]) Second trimester ([facility]) Expected: 07/05/2025 (Approximate), Expires: 08/04/2025 [facility] Comment on above: Expected: 07/05/2025 (Approximate), Expires: 08/04/2025 Start: 07-05-2025 End: 07-05-2025 Patient encounter procedure [facility] Comment on above: Arrived Start: 06-20-2025 Influenza [facility] Start: 06-07-2025 End: 06-07-2025 Patient encounter procedure [facility] Comment on above: Arrived Start: 05-05-2025 End: 05-05-2026 ABO/Rh ABO/Rh Lab Routine Missed menses , unspecified gestational age ([facility]) Expected: 05/05/2025 (Approximate), Expires: 05/05/2026 [facility] Comment on above: Expected: 05/05/2025 (Approximate), Expires: 05/05/2026 Start: 05-05-2025 End: 05-05-2026 Blood type and Indirect antibody screen panel - Blood Type and screen Lab Routine Missed menses , unspecified gestational age ([facility]) Expected: 05/05/2025 (Approximate), Expires: 05/05/2026 [facility] Work Phone: Comment on above: Expected: 05/05/2025 (Approximate), Expires: 05/05/2026 Start: 05-05-2025 End: 05-05-2026 Drugs of abuse panel - Urine by Screen method Rapid drug screen, urine Lab Routine , unspecified gestational age ([facility]) Encounter for supervision of normal first in first trimester ([facility]) Expected: 05/05/2025 (Approximate), Expires: 05/05/2026 [facility] Comment on above: Expected: 05/05/2025 [...] PM EDT Ancillary Procedure [facility] [address] [place] [address] [place] [id number] [facility] Start: 01-03-2025 Bacteria identified in Urine by Culture Urine Culture [facility] Start: 01-03-2025 Urine culture [facility] Start: 12-22-2024 End: 12-22-2025 US Pelvis US Pelvis w/ TV Imaging Routine Pelvic pain in female Expected: 12/22/2024, Expires: 12/22/2025 [facility] Comment on above: Expected: 12/22/2024 , Expires: 12/22/2025 Start: 12-22-2024 End: 12-22-2024 Patient encounter procedure [facility] Comment on above: Arrived Start: 12-02-2024 End: 12-02-2024 Patient encounter procedure 12/02/2024 9:30 AM EST Procedure Visit [facility] [address] [place] [id number] Jefferson Howard, DO [address] [place] [address] [facility] Start: 11-30-2024 End: 11-30-2024 Professional / ancillary services management 11/30/2024 2:00 PM EST Ancillary Procedure [facility] [address] [place] [id number] [facility] Start: 11-11-2024 End: 11-11-2025 [...] EST Office Visit [facility] [address] [place] [phone] Jefferson Howard, [address] [place] [address] Arrived [facility] Comment on above: Arrived Start: 09-07-2024 [facility] Start: 06-20-2024 Influenza vaccination Influenza Vacc ine (#1) [facility] Bacteria identified in Urine by Culture Urine culture Microbiology Routine Missed menses Ordered: 05/05/2025 [facility] Comment on above: Ordered: 05/05/2025 CBC W Auto Different ial panel - Blood CBC and differential Lab Routine Right ovarian cyst PCOS (polycystic ovarian syndrome) Ordered: 11/11/2024 [facility] Comment on above: Ordered: 11/11/2024 CBC W Auto Different ial panel - Blood CBC and differential Lab Routine Missed menses , unspecified gestational age ([facility]) Ordered: 05/05/2025 [facility] Comment on above: Ordered: 05/05/2025 CHLAMYDIA TRACHOMATI S (GENITO/STI) CHLAMYDIA TRACHOMATIS (GENITO/STI) Lab Routine Exposure to STD Ordered: 07/05/2025 [facility] Comment on above: Ordered: 07/05/2025 Cytology Cervical or vaginal smear or scraping study Pap Smear Pathology and Cytology Routine Well woman exam with routine gynecological exam Ordered: 12/22/2024 [facility] Work Phone: Comment on above: Ordered: 12/22/2024 DHEA-sulfate DHEA-sulfate Lab Routine Right ovarian cyst PCOS (polycystic ovarian syndrome) Ordered: 11/11/2024 [facility] Comment on above: Ordered: 11/11/2024 Follicle stimulating hormone Follicle stimulating hormone Lab Routine Right ovarian cyst PCOS (polycystic ovarian syndrome) Ordered: 11/11/2024 [facility] Comment on above: Ordered: 11/11/2024 hCG, quantitative, hCG, quantitative, Lab Routine Right ovarian cyst PCOS (polycystic ovarian syndrome) Ordered: 11/11/2024 [facility] Work Phone: Comment on above: Ordered: 11/11/2024 Hemoglobin A1c/Hemoglobin.total in Blood Hemoglobin A1c Lab Routine Right ovarian cyst PCOS (polycystic ovarian syndrome) Ordered: 11/11/2024 [facility] Comment on above: Ordered: 11/11/2024 Hemoglobin A1c/Hemoglobin.total in Blood Hemoglobin A1c Lab Routine Missed menses , unspecified gestational age ([facility]CC) Ordered: 05/05/2025 [facility] Comment on above: Ordered: 05/05/2025 Hepatitis B virus surface Ag [Presence] in Serum or Plasma by Immunoassay Hepatitis B surface antigen Lab Routine Missed menses , unspecified gestational age ([facility]) Ordered: 05/05/2025 [facility] Comment on above: Ordered: 05/05/2025 Hepatitis C virus Ab [Presence] in Serum or Plasma by Immunoassay Hepatitis C antibody Lab Routine Missed menses , unspecified gestational age ([facility]) Ordered: 05/05/2025 [facility] Comment on above: Ordered: 05/05/2025 HIV-1/HIV-2 antigen/antibody combination immunoassay HIV-1 and HIV-2 antibodies Lab Routine Missed menses , unspecified gestational age ([facility]) Ordered: 05/05/2025 [facility] Comment on above: Ordered: 05/05/2025 Luteinizing hormone Luteinizing hormone Lab Routine Right ovarian cyst PCOS (polycystic ovarian syndrome) Ordered: 11/11/2024 [facility] Comment on above: Ordered: 11/11/2024 Neisseria gonorrhoea e DNA [Presence] in Unspecified specimen by RANDOLPH with probe detection Neisseria gonorrhea DNA probe, direct Lab Routine Exposure to STD Ordered: 07/05/2025 [facility] Comment on above: Ordered: 07/05/2025 Patient Education Esophagitis Kn [facility] Work Phone: Prolactin Prolactin Lab Ro utine Right ovarian cyst PCOS (polycystic ovarian syndrome) Ordered: 11/11/2024 [facility] Comment on above: Ordered: 11/11/2024 Reagin Ab [Presence] in Serum by RPR RPR Lab Routine Missed menses , unspecified gestational age ([facility]) Ordered: 05/05/2025 [facility] Comment on above: Ordered: 05/05/2025 Removal non-biodegradable drug delivery implant Remove drug implant device Procedures Routine Encounter for removal of etonogestrel implant Ordered: 12/02/2024 [facility] Work Phone: Comment on above: Ordered: 12/02/2024 Rubella antibody, IgG Rubella an tibody, IgG Lab Routine Missed menses , unspecified gestational age ([facility]) Ordered: 05/05/2025 [facility] Comment on above: Ordered: 05/05/2025 SURESWAB(R) ADVANCED VAGINITIS PLUS, TMA SURESWAB(R) ADVANCED VAGINITIS PLUS, TMA Pathology and Cytology Routine Vaginal discharge Ordered: 07/05/2025 [facility] Work Phone: Comment on above: Ordered: 07/05/2025 Thyrotropin [Units/volume] in Serum or Plasma TSH Lab Routine Right ovarian cyst PCOS (polycystic ovarian syndrome) Ordered: 11/11/2024 [facility] Comment on above: Ordered: 11/11/2024 Thyrotropin [Units/volume] in Serum or Plasma TSH Lab Routine Elevated TSH Ordered: 02/02/2025 [facility] Work Phone: Comment on above: Ordered: 02/02/2025 Thyroxine (T4) free [Mass/volume] in Serum or Plasma T4, free Lab Routine Right ovarian cyst PCOS (polycystic ovarian syndrome) Ordered: 11/11/2024 [facility] Comment on above: Ordered: 11/11/2024 Thyroxine (T4) free [Mass/volume] in Serum or Plasma T4, free Lab Routine Elevated TSH Ordered: 02/02/2025 [facility] Comment on above: Ordered: 02/02/2025 Payers Date Payer Category Payer Medicaid [id number] 2021 Medicaid (Managed Care) 1.2. [id number] 315 2000 Unknown [id number] 2.16.84 0.1.934703.3.579.2.593 2000 Unknown [id number] 2.16.84 0.1.376510.3.579.2.593 2000 Unknown [id number] 2.16.84 0.1.711502.3.579.2.593 2000 Unknown [id number] 2.16.84 0.1.635276.3.579.2.593 2000 Unknown [id number] 2.16.84 0.1.546188.3.579.2.593 2000 Unknown [id number] 2.16.84 0.1.134362.3.579.2.593 2000 Unknown [id number] 2.16.84 0.1.084233.3.579.2.593 2000 Unknown [id number] 2.16.84 0.1.387962.3.579.2.593 2000 Unknown [id number] 2.16.84 0.1.158047.3.579.2.593 2000 Unknown [id number] 2.16.84 0.1.087401.3.579.2.593 2000 Unknown [id number] 2.16.84 0.1.717790.3.579.2.593 2000 Unknown [id number] 2.16.84 0.1.072144.3.579.2.593 2000 Unknown [id number] 2.16.84 0.1.649576.3.579.2.593 2000 Unknown [id number] 2.16.84 0.1.449009.3.579.2.593 2000 Unknown [id number] 2.16. 840.1.064213.3.579.2.1286 2000 Unknown [id number] 2.16.8 40.1.614136.3.579.2.1286 2000 Unknown [id number] 2.16.8 40.1.750172.3.579.2.1259 2000 Unknown [id number] 2.16.8 40.1.873387.3.579.2.1259 2000 Unknown [id number] 2.16.8 40.1.572513.3.579.2.1259 2000 Unknown [id number] 2.16.8 40.1.707025.3.579.2.1259 2000 Unknown [id number] 2.16.84 0.1.828031.3.579.2.1259 2000 Unknown [id number] 2.16.84 0.1.793235.3.579.2.1259 2000 Unknown [id number] 2.16.84 0.1.998084.3.579.2.1259 2000 Unknown [id number] 2.16.84 0.1.605297.3.579.2.1259 2000 Unknown [id number] 2.16.84 0.1.723740.3.579.2.1259 2000 Unknown [id number] 2.16.84 0.1.055457.3.579.2.1259 2000 Unknown [id number] 2.16.84 0.1.803806.3.579.2.1259 1959 Self-pay 1959 Unknown [id number] Unknown [id number] 2.16.84 0.1.298191.3.579.2.593 Unknown [id number] 2.16.8 40.1.153022.3.579.2.531 Unknown [id number] 2.16.8 40.1.160145.3.579.2.531 Unknown [id number] 2.16.8 40.1.988169.3.579.2.531 Social History Date Type Detail Facility Start: 03-02-2024 End: 09-07-2024 Tobacco smoking status NHIS Never smoked tobacco (finding) [facility] Start: 09-07-2024 Sex Patient sex un known (finding) [facility] Start: 2000 Sex Assigned At Female F [facility] Start: 03-02-2024 Tobacco use and exposure Smoke less tobacco non-user [facility] Start: 03-02-2024 End: 11-11-2024 History of [...] Start: 01-04-2025 End: 01-19-2025 Sex Female (finding) [facility] Start: 04-04-2025 [facility] [...] Mild intermittent asthma without complication ([facility]) 03/02/2024 Allergic rhinitis due to pollen 03/02/2024 Morbid obesity due to excess calories ([facility]) 03/02/2024 Annual physical exam 03/02/2024 Amenorrhea [...] nursing note reviewed. Exam conducted with a assistant professor of theater present. Vitals: Estimated body mass index is 54 kg/m as calculated from the following: Height as of 06/01/24: 5' 1 . Weight as of this encounter: 285 lb 12.8 oz. BP: 120/80 Patient's last menstrual period was 03/08/2025. ASSESSMENT & PLAN ICD-10-CM 1. 15 weeks gestation of ([facility]) Z3A.15 POCT urinalysis dipstick manually resulted Alpha fetoprotein, maternal Alpha fetoprotein, maternal 2. Second trimester ([facility]) Z34.92 POCT urinalysis dipstick manually resulted Alpha [...] obtained without difficulty and patient was given [facility] order to have obtained. Patient continues with [...] LEAH Curran documented in this encounter [facility] 06-07-2025 History of Presen t illness Narrative [...] Mild intermittent asthma without complication ([facility]) 03/02/2024 Allergic rhinitis due to pollen 03/02/2024 Morbid obesity due to excess calories ([facility]) 03/02/2024 Annual physical exam 03/02/2024 Amenorrhea 04/28/2024 [...] nursing note reviewed. Exam conducted with a assistant professor of theater present. Vitals: Estimated body mass index is 53.17 kg/m as calculated from the following: Height as of 06/01/24: 5' 1 . Weight as of this encounter: 281 lb 6.4 oz. BP: 108/68 Patient's last menstrual period was 03/08/2025. ASSESSMENT & PLAN ICD-10-CM 1. First trimester ([facility]) Z34.91 2. 11 weeks gestation of ([facility]) Z3A.11 3. Right ovarian cyst N83.201 [...] or undercooked meat, and stay away from [facility]. Patient has been consulted regarding any further do's and don'ts of . Patient voiced understanding and all questions and concerns were answered. No orders of the defined types were placed in this encounter. Follow Up: Patient is to return in 4 weeks for routine OB appointment. Documented by Shelley Dang LPN on behalf of: Jefferson Howard DO documented in this encounter [facility] 05-05-2025 History of Presen t illness [...] 03/02/2024 Morbid obesity due to excess calories ([facility]) 03/02/2024 Annual physical exam 03/02/2024 Amenorrhea 04/28/2024 [...] dipstick manually resulted , unspecified gestational age ([facility]) - Type and screen; Future - ABO/Rh; Future - CBC and differential - Hemoglobin A1c - RPR - Rubella antibody, IgG - Hepatitis B surface antigen - Hepatitis C antibody - HIV-1 and HIV-2 antibodies - Rapid drug screen, urine; Future Encounter for supervision of normal first in first [facility] - Rapid drug screen, urine; Future Right [...] or undercooked meat, and stay away from [facility]. Patient has also been advised to not change litter boxes and eat 6 small meals a day. Patient has been consulted regarding the do's and don'ts of . Patient was given labs and all questions and concerns were answered. [place] and Thyroid given to patient to have [...] Correa LPN documented in this encounter [facility] 02-02-2025 History of Presen t illness [...] Major depressive disorder, recurrent episode, mild (HCC) ([facility]) 03/02/2024 Gastroesophageal reflux disease without esophagitis 03/02/2024 Mild intermittent asthma without complication ([facility]) 03/02/2024 Allergic rhinitis due to pollen 03/02/2024 Morbid obesity due to excess calories ([facility]) 03/02/2024 Annual physical exam 03/02/2024 Amenorrhea [...] nursing note reviewed. Exam conducted with a assistant professor of theater present. Vitals: Estimated body mass index is 52.91 kg/m as calculated from the following: Height as of 8/13/24: 5' 1 . Weight as of this [...] Howard DO documented in this encounter [facility] 01-17-2025 History of Presen t illness [...] nursing note reviewed. Exam conducted with a assistant professor of theater present. Vitals: Estimated body mass index is [...] Howard DO documented in this encounter [facility] 12-22-2024 History of Presen t illness [...] Major depressive disorder, recurrent episode, mild (HCC) ([facility]/HCC) 03/02/2024 Gastroesophageal reflux disease without esophagitis 03/02/2024 Mild intermittent asthma without complication ([facility]) 03/02/2024 Allergic rhinitis due to pollen 03/02/2024 Morbid obesity due to excess calories ([facility]) 03/02/2024 Annual physical exam 03/02/2024 Amenorrhea 04/28/2024 [...] nursing note reviewed. Exam conducted with a assistant professor of theater present. Vitals: Estimated body mass index is [...] LEAH Curran documented in this encounter [facility] 12-02-2024 History of Presen t illness [...] nursing note reviewed. Exam conducted with a assistant professor of theater present. Vitals: Estimated body mass index is [...] Howard DO documented in this encounter [facility] 11-11-2024 History of Presen t illness [...] depressive disorder, recurrent episode, mild ([facility]) ([facility]) 03/02/2024 Gastroesophageal reflux disease without esophagitis 03/02/2024 Mild intermittent asthma without complication ([facility]) 03/02/2024 Allergic rhinitis due to pollen 03/02/2024 Morbid obesity due to excess calories ([facility]) 03/02/2024 Annual physical exam 03/02/2024 Amenorrhea [...] nursing note reviewed. Exam conducted with a assistant professor of theater present. Vitals: Estimated body mass index is [...] Howard DO documented in this encounter [facility] 09-07-2024 Procedure note [facility] 08-24-2024 Evaluation note Diagnosis Onset Date Resolution Dyspepsia acute August 24, 2024 9:29am Nausea acute August 24, 2024 9:29am Chronic GERD chronic August 9:29am Constipation chronic August 9:29am [facility] Work Phone: Evaluation note* Diagnosis [...] syndrome) Polycystic ovaries documented in this encounter [facility] HealthcareEvaluation note* Diagnosis Gastroesophageal reflux disease [...] of etonogestrel implant documented in this encounter [facility] HealthcareEvaluation note* Diagnosis Gastroesophageal reflux disease [...] female genital organs documented in this encounter [facility] HealthcareEvaluation noteNo [facility] Work Phone: Evaluation note* Diagnosis Gastroesophageal reflux disease without esophagitis- Primary Esophageal reflux Amenorrhea Absence of menstruation Generalized abdominal pain Abdominal pain, generalized Morbid (severe) obesity due to excess calories (CMS/HCC) Body mass index (BMI) 50.0-59.9, adult (CMS/HCC) Right sided sciatica- Primary Sciatica Gastroesophageal reflux disease without esophagitis Esophageal reflux Major depressive disorder, recurrent episode, mild (HCC) ([facility]) Major depressive disorder, recurrent episode, mild Morbid obesity due to excess calories ([facility]) LGSIL of cervix of undetermined significance documented in this encounter [facility] HealthcareEvaluation note* Diagnosis Gastroesophageal reflux disease without esophagitis- Primary Esophageal reflux Amenorrhea Absence of menstruation Generalized abdominal pain Abdominal pain, generalized Morbid (severe) obesity due to excess calories ([facility]) Body mass index (BMI) 50.0-59.9, adult ([facility]) Right sided sciatica- Primary Sciatica Gastroesophageal reflux disease without esophagitis Esophageal reflux Major depressive disorder, recurrent episode, mild (HCC) ([facility]) Major depressive disorder, recurrent episode, mild Morbid obesity due to excess calories ([facility]) Encounter to discuss test results Other specified counseling Elevated TSH Other abnormal blood chemistry documented in this encounter [facility] HealthcareEvaluation note* Diagnosis Gastroesophageal reflux disease without esophagitis- Primary Esophageal reflux Amenorrhea Absence of menstruation Generalized abdominal pain Abdominal pain, generalized Morbid (severe) obesity due to excess calories ([facility]) Body mass index (BMI) 50.0-59.9, adult ([facility]) Right sided sciatica- Primary Sciatica Gastroesophageal reflux disease without esophagitis Esophageal reflux Major depressive disorder, recurrent episode, mild Major depressive disorder, recurrent episode, mild Morbid obesity due to excess calories ([facility]) Missed menses , unspecified gestational age ([facility]) Encounter for supervision of normal first in first trimester ([facility]) Right ovarian cyst Other and unspecified ovarian cyst Nausea Nausea alone PCOS (polycystic ovarian syndrome) Polycystic ovaries Gastroesophageal reflux disease, unspecified whether esophagitis present Thyroid disease Unspecified disorder of thyroid documented in this encounter [facility] HealthcareEvaluation note* Diagnosis Gastroesophageal reflux disease without esophagitis- Primary Esophageal reflux Amenorrhea Absence of menstruation Generalized abdominal pain Abdominal pain, generalized Morbid (severe) obesity due to excess calories ([facility]) Body mass index (BMI) 50.0-59.9, adult ([facility]) Right sided sciatica- Primary Sciatica Gastroesophageal reflux disease without esophagitis Esophageal reflux Major depressive disorder, recurrent episode, mild Major depressive disorder, recurrent episode, mild Morbid obesity due to excess calories ([facility]) First trimester ([facility]) state, incidental 11 weeks gestation of ([facility]) Right ovarian cyst Other and unspecified ovarian cyst Nausea Nausea alone PCOS (polycystic ovarian syndrome) Polycystic ovaries documented in [facility] encounter [facility] Diagnosis Gastroesophageal reflux disease without esophagitis- Primary Esophageal reflux Amenorrhea Absence of menstruation Generalized abdominal pain Abdominal pain, generalized Morbid (severe) obesity due to excess calories ([facility]) Body mass index (BMI) 50.0-59.9, adult ([facility]) Right sided sciatica- Primary Sciatica Gastroesophageal reflux disease without esophagitis Esophageal reflux Major depressive disorder, recurrent episode, mild Major depressive disorder, recurrent episode, mild Morbid obesity due to excess calories ([facility]) 15 weeks gestation of ([facility]) Second trimester ([facility]) state, incidental Exposure to STD Vaginal discharge Leukorrhea, not specified as infective Nausea Nausea alone documented in this encounter [facility] Summary Purpose Family History Relationship Condition [...] and content) DATE CREATED AUTHOR 12/24/2022 [facility] DATE CREATED AUTHOR AUTHOR'S ORGANIZ ATION 01/19/2025 [facility] [address] [facility] DATE CREATED AUTHOR AUTHOR'S ORGANIZ ATION 04/15/2025 [facility] DATE CREATED AUTHOR AUTHOR'S ORGANIZ ATION 07/06/2025 [facility] Special[facility] Care Teams (unrecognized sec tion and content) [...] Other Provider Active Start: September 07, 2024 Reclaimer Relationship Specialty Start Date End Date Manuel Noel MD [address] [place] [phone] PCP - General Family Medicine 03/02/24 Reclaimer Relationship Specialty Start Date End Date Manuel Noel MD [address] [place] [phone] PCP - General Family Medicine 03/02/24 Manuel Noel MD [address] [place] [phone] PCP - [facility] 07/20/24 Reclaimer Relationship Specialty Start Date End Date Manuel Noel MD [address] [place] [phone] PCP - [facility] 03/02/24 Manuel Noel MD [address] [place] [address] [facility] 07/20/24 Reclaimer Relationship Specialty Start Date End Date Manuel Noel MD [address] [place] [address] [facility] 03/02/24 Manuel Noel MD [address] [place] [address] [facility] 07/20/24 Reclaimer Relationship Specialty Start Date End Date Manuel Noel MD [address] [place] [address] [facility] 03/02/24 Manuel Noel MD [address] [place] [address] [facility] 07/20/24 Reclaimer Relationship Specialty Start Date End Date Manule Noel MD [address] [place] [address] [facility] 03/02/24 Manuel Noel MD [address] [place] [address] [facility] 07/20/24 Reclaimer Relationship Specialty Start Date End Date Manuel Noel MD [address] [place] [phone] PCP - [facility] 03/02/24 Manuel Noel MD [address] [place] [address] [facility] 07/20/24 Reclaimer Relationship Specialty Start Date End Date Manuel Noel MD [address] [place] [phone] PCP [facility] 03/02/24 Manuel Noel MD [address] [place] [address] [facility] 07/20/24 Reclaimer Relationship Specialty Start Date End Date Manuel Noel MD [address] [place] [phone] PCP [facility] 03/02/24 Manuel Noel MD [address] [place] [address] [facility] 07/20/24 Team Status: Inactive Member Role Status Dates Jefferson Howard DO Attending Provider Active Start : January 17, 2025 End: January 17, 2025 Reclaimer Relationship Specialty Start Date End Date Manuel Noel MD [address] [place] [phone] PCP - [facility] 03/02/24 Manuel Noel MD [address] [place] [phone] PCP [facility] 07/20/24 Reclaimer Relationship Specialty Start Date End Date Manuel Noel MD [facility] 03/02/24 Manuel Noel MD [address] [place] [address] [facility] 07/20/24 Reclaimer Relationship Specialty Start Date End Date Manuel Noel MD [facility] 03/02/24 Manuel Noel MD [address] [place] [address] [facility] 07/20/24 Reclaimer Relationship Specialty Start Date End Date Manuel Noel MD [facility] 03/02/24 Manuel Noel MD [address] [place] [address] [facility] 07/20/24 Reason for Visit (unrecogniz ed [...] BE BASED ON THE PRIMARY CLINICAL RECORDS. [facility] provides no warranty or guarantee of the accuracy or completeness of information in this document.
== END 2025-08-02 19:12 | disposition home or self-care (01) ==
LOC: LAB 19:11
PROVIDERS: Visit Provider Obstetrics & Gynecology
DX: R87.612 Low grade squamous intraepithelial lesion on cytologic smear of cervix (LGSIL) (principal)
CPT/HCPCS: 88175

== ENCOUNTER 2025-08-29 04:28 | Emergency (ER) | payer OTHER, SELFPAY ==
--- OUTSIDE RECORDS SUMMARY | 2025-08-23 19:25 | XMS_ITS | Encounter Summary ---
Author Organization [facility] [employer] [facility] tem Address [id number] [address] [place] [address] Care Team Providers Care Preprint Analyst Name Role Phone Manuel Schwartz MD Primary Care Provider [phone] Reason for Visit * ReasonCommentsAbdominal PainPatient c/o nausea and vomiting today. Diarrhea for 5 days. * Auth/CertSpecialtyDiagnoses / ProceduresReferred By ContactReferred To Contact Ny Lewis APRN-CNM [address] [facility]TRALMaribell LIANGGENERAL LEONARD [facility] [place] [address] Phone: tel: fax: Referral IDStatusReasonStart DateExpiration DateVisits RequestedVisits [id number] Encounter Details DateTypeDepartmentCare Team (Latest Contact Info)Fyxekqgmysg92/04/2025 7:25 PM EST - 08/23/2025 9:27 PM ESTHospital Encounter [facility] [address] [place] [address] Ny Lewis APRN-CNM [address] [place] [address] Discharge Disposition: Home Social History Tobacco UseTypesPacks/DayYears UsedDateSmoking Tobacco: NeverSmokeless Tobacco: NeverAlcohol UseStandard Drinks/WeekCommentsNot Currently0 (1 standard drink = 0.6 oz pure alcohol)Overall Financial Resource Strain (CARDIA)AnswerDate RecordedHow hard is it for you to pay for the very basics like food, housing, medical care, and heating?Not very hard08/23/2025PRAPARE - TransportationAnswer Date RecordedIn the past 12 months, has lack of transportation kept you from medical appointments or from getting medications?No08/23/2025In the past 12 months, has lack of transportation kept you from meetings, work, or from getting things needed for daily living?No08/23/2025HC UtilitiesAnswerDate RecordedIn the past 12 months has the electric, gas, oil, or water company threatened to shut off services in your home?No08/23/2025Housing InstabilityAnswerDate RecordedAre you worried or concerned that in the next two months you may not have stable housing that you own, rent or stay in as a part of a household?No 08/23/2025hildcareAnswerDate IfptptxpEqzfdauqtZbfqsay03/11/2019EmploymentAnswer Date EakdzdxmSojtplqbjeKjurpuh79/11/2019Hunger ScreeningAnswerDate Recorded Within the past 12 months we worried whether our food would run out before we got money to buy more.Never True08/23/2025Within the past 12 months the food we bought just didn't last and we didn't have money to get more.Never True 08/23/2025Purpose - LifeAnswerDate RecordedPurpose and direction in lifeUnknown 1Estimated Date of BzpfkrnvXdwbfkmhPkd24/09/2026Based on UltrasoundSex and Gender InformationValueDate RecordedSex Assigned at BirthNot on fileLegal HhhMuvyqc98/04/2015 6:13 PM EDTGender IdentityNot on fileSexual OrientationNot on filedocumented as of this encounter Last Filed Vital Signs Vital SignReadingTime TakenCommentsBlood Hjicapst485/8408/23/2025 7:34 PM EST Friaf73223/04/2025 7:34 PM JTTOdxdmkflrza07.7 ??C (98 ??F)08/23/2025 7:34 PM EST Respiratory Ivko284110/23/2024 7:34 PM ESTOxygen Saturation--Inhaled Oxygen Concentration--Tzmwtt844.5 kg (281 lb)08/23/2025 7:34 PM TBFNncoxh071.5 cm (5' 2 )08/23/2025 7:34 PM ESTBody Mass Index51. 7:34 PM ESTdocumented in this encounter Discharge Instructions * Discharge Instructions* Tiffany Ace RN - 08/23/2025 9:15 PM EST Can take Imodium over the counter for diarrhea. Discharge Instructions for discharge to home, undelivered, provided to Jes Malik Diet: regular Fluids: drink 6-8 glasses of water a day, avoid alcohol, and avoid caffeine Elimination: empty bladder every 2-3 hours Activity: resume previous, unlimited activity Kick Count: Instruction/Reinforcement: discussed with patient and patient verbalizes understanding Call Provider: abdominal pain/cramping, burning/pain with urination, decreased or absent movement, dizziness, epigastric distress/pain, gushing of fluid from the vagina, leaking of fluid from the vagina, low,dull backache, severe headache, swelling of the face, hands, or feet, vaginal bleeding, visual disturbances, spots before eyes, or blurry vision, and vomiting/diarrhea 2-3 days in a row Signs of Labor: bloody show, increase in strength or frequency of contractions, leaking amniotic fluid , and regular contractions Next Appointment: keep next scheduled appointment Consults: N/A Prescriptions Given: N/A Discharge: home Discharged by: Db Allen RN 08/23/2025 9:15 PM documented in this encounter Medications at Time of Discharge MedicationSigDispense QuantityRefillsLast FilledStart DateEnd Date omeprazole (PriLOSEC) 20 mg capsule Take 1 capsule (20 mg total) by mouth in the morning. acetaminophen (TYLENOL EXTRA STRENGTH) 500 mg tablet Take 2 tablets (1,000 mg total) by mouth every 6 (six) hours as needed for pain. 30 tablet 02/28/2024 dicyclomine (BENTYL) 20 mg tablet Take 1 tablet (20 mg total) by mouth in the morning and 1 tablet (20 mg total) before bedtime. 20 tablet 08/28/2024 famotidine (PEPCID) 20 mg tablet Take 1 tablet (20 mg total) by mouth in the morning and 1 tablet (20 mg total) before bedtime. 20 tablet 02/28/2024 ibuprofen (ADVIL,MOTRIN) 800 mg tablet Take 1 tablet (800 mg total) by mouth every 8 (eight) hours as needed for pain. 30 tablet 01/30/2022 norethindrone-e.estradioL-iron (ESTROSTEP FE) 1-20(5)/1-30(7) /1mg-35mcg (9) tablet Take 1 tablet by mouth in the morning. ondansetron ODT (ZOFRAN ODT) 4 mg disintegrating tablet Dissolve 1 tablet (4 mg total) on tongue every 8 (eight) hours as needed for nausea for up to 10 doses. 10 tablet 4documented as of this encounter H&P Notes * Ny Lewis, MARKETING TECHNOLOGIST-CNM - 08/23/2025 8:52 PM EST Jes Malik is a 24 y.o.. at 22w1d with Estimated Date of Delivery: 12/26/25 who presents with Chief Complaint Patient presents with Abdominal Pain Patient c/o nausea and vomiting today. Diarrhea for 5 days. Care by: Dr. Howard in [place] HPI: States she has had diarrhea for the past 5 days. Has not notified her OB care provider about this. Stools occur about every 2-3 hours, liquid in nature and yellow brown in color. No unusual odornoted. Has some generalized intermittent abdominal pain that is moving around her abdomen. Pt reports pos FM. Pt denies contractions. Pt denies LOF, VB, dysuria. Her current obstetrical history is significant for uncomplicated. REVIEW OF SYSTEMS: General: WNL Head: No headache or visual changes Cardio: Denies chest pain. Respiratory: Denies shortness of breath GI: Positive for nausea/vomiting off and on throughout this . Diarrhea for the past 5 days. : Denies urinary symptoms. There are no active problems to display for this patient. Medications Prior to Admission Medication Sig Dispense Refill Last Dose/Taking omeprazole (PriLOSEC) 20 mg capsule Take 1 capsule (20 mg total) by mouth in the morning. 08/23/2025Morning acetaminophen (TYLENOL EXTRA STRENGTH) 500 mg tablet Take 2 tablets (1,000 mg total) by mouth every6 (six) hours as needed for pain. (Patient not taking: Reported on 08/23/2025) 30 tablet 0 Past Month dicyclomine (BENTYL) 20 mg tablet Take 1 tablet (20 mg total) by mouth in the morning and 1 tablet (20 mg total) before bedtime. (Patient not taking: Reported on 08/23/2025) 20 tablet 0 More than a month famotidine (PEPCID) 20 mg tablet Take 1 tablet (20 mg total) by mouth in the morning and 1 tablet (20 mg total) before bedtime. (Patient not taking: Reported on 08/23/2025) 20 tablet 0 More than a month ibuprofen (ADVIL,MOTRIN) 800 mg tablet Take 1 tablet (800 mg total) by mouth every 8 (eight) hours as needed for pain. (Patient not taking: Reported on 08/23/2025) 30 tablet 0 More than a month norethindrone-e.estradioL-iron (ESTROSTEP FE) 1-20(5)/1-30(7) /1mg-35mcg (9) tablet Take 1 tablet by mouth in the morning. (Patient not taking: Reported on 08/23/2025) More than a month ondansetron ODT (ZOFRAN ODT) 4 mg disintegrating tablet Dissolve 1 tablet (4 mg total) on tongue every 8 (eight) hours as needed for nausea for up to 10 doses. (Patient not taking: Reported on 08/23/2025) 10 tablet 0 More than a month OB History Para Term AB Living 3 2 2 0 0 2 SAB IAB Ectopic Multiple Live Births 0 0 0 0 2 # Outcome Date GA Lbr Rinku/2nd Weight Sex Type Anes PTL Lv 3 Current 2 Term 12/02/22 3.147 kg F Vag-Spont 1 Term 07/11/21 3.062 kg M Vag-Spont MEDICAL HX Past Medical History: Diagnosis Date Depression SURGICAL HX Past Surgical History: Procedure Laterality Date CHOLECYSTECTOMY MEDS No current facility-administered medications for this encounter. ALLERGIES Allergies Allergen Reactions Penicillins FAMILY HX Family History Problem Relation Age of Onset Hypertension Mother SOCIAL HX Social History Tobacco Use Smoking status: Never Smokeless tobacco: Never Substance Use Topics Alcohol use: Not Currently Drug use: Not Currently Vital signs in last 24 hours: Vitals: 08/23/25 1934 BP: 128/84 Pulse: 105 Resp: 18 Temp: 36.7 ??C (98 ??F) RECENT LABS IN LAST 24 HOURS Recent Results (from the past 24 hours) Urinalysis Collection Time: 08/23/25 8:03 PM Specimen: Urine, Clean Catch Midstream Result Value Ref Range COLOR Yellow Yellow TURBIDITY Hazy (A) Clear SPECIFIC GRAVITY 1.020 1.003 - 1.035 NITRITE Negative Negative PH,URINE 7.0 5.0 - 8.5 LEUKOCYTE ESTERASE Negative Negative PROTEIN Trace (A) Negative KETONES (URINE) Negative Negative UROBILINOGEN >=8.0 eu/dL (A) 0.2 eu/dL, 1.0 eu/dL BILIRUBIN (URINE) Negative Negative BLOOD/HGB Negative Negative AMORPHOUS SEDIMENT Present (A) None SQUAMOUS EPITHELIUM 5 0 - 5 GLUCOSE (URINE) Negative Negative, 250 mg/dL CBC without diff Collection Time: 08/23/25 8:20 PM Result Value Ref Range WBC 8.9 4 - 11 X10^9/L RBC Count 3.62 (L) 3.8 - 5.2 X10^12/L Hemoglobin 10.6 (L) 11.7 - 15.5 g/dL Hematocrit 31.2 (L) 35 - 47 % MCV 86 80 - 100 fL MCH 29.2 27 - 34 pg MCHC 33.8 32 - 36 g/dL RDW 13.5 11.5 - 15 % Platelet Count 186 150 - 450 X10^9/L MPV 9.2 7 - 12 fL Basic Metabolic Panel Collection Time: 08/23/25 8:20 PM Result Value Ref Range SODIUM 134 134 - 146 mmol/L POTASSIUM 3.7 3.5 - 5.0 mmol/L CHLORIDE 103 98 - 109 mmol/L CARBON DIOXIDE 21 (L) 22 - 32 mmol/L ANION GAP 10 5 - 15 mmol/L BLOOD UREA NITROGEN 5 5 - 23 mg/dL CREATININE 0.53 0.40 - 1.00 mg/dL GLUCOSE 101 (H) 65 - 99 mg/dL CALCIUM 8.3 (L) 8.5 - 10.5 mg/dL EGFR Non-Race Dependent >90 >=60 ml/min/1.73sq.m Extra Tubes Collection Time: 08/23/25 8:24 PM Narrative The following orders were created for panel order Extra Tubes. Procedure Abnormality Status --------- ------ SST TOP[[id number]] In process Please view results for these tests on the individual orders. There is no immunization history on file for this patient. Lab Review ABO/Rh: No results found for: ABOINTEP , RHINTEP Group B Strep: No results found for: EXTGBS Rubella: No results found for: RUBELLAIMMU Hepatitis B Surface Antigen: No results found for: HEPBSAG HIV:No results found for: HIV1X2 RPR (VDRL): No results found for: SYPHILIS One hour GTT:No results found for: LABGLUC Three Hour GTT: No results found for: GLUF , XQFDXWP8SN , TZEGTPP8CP , DNMIKMW0MJ PHYSICAL EXAM: Consitutional: well-appearing; no apparent distress Psychological: Alert and oriented to person, place and time Neurological: No deficits Head/Neck: No masses/adenopathy, non-tender Skin: Normal temp and turgor, dry, intact Respiratory: CTA B PA Cardiovascular: RRR Abdomen: Soft, gravid, non-tender to palpation, no organomegaly or masses, normal bowel sounds noted in all four quadrants Back: No CVAT, no back pain Musculoskeletal: ROM x 4, normal gait Extremities: No LE edema, non-tender Genitourinary: No masses or lesions SSE: Not performed PELVIC EXAM: Not examined Presentation: Cervix: Dilation: Effacement: Station: Position: FHR: 140 to 150 with hand held doppler Uterine Activity: none per toco Impression: 24 y.o., at 22w1d with diarrhea of unknown origin. Stable electrolytes PLAN: Discharge to home. May use OTC Imodium AD as directed on package. If diarrhea persists, she should contact her OB careprovider. Education and Precautions Reviewed. Keep FU as indicated. GOOD Sanders 08/23/252101 documented in this encounter Plan of Treatment Not on file documented as of this encounter Procedures Procedure NamePriorityDate/TimeAssociated DiagnosisCommentsEXTRA TUBES SST TOP Cczngnd6908/23/2025 8:24 PM EST EXTRA DVJJYIqlipsr20/04/2025 8:24 PM EST CBC (NO DIFF)STAT110/23/2024 8:20 PM EST BASIC METABOLIC OFTNFPJOA64/04/2025 8:20 PM EST BTTFBHYTOZEAYE74/04/2025 8:03 PM EST documented in this encounter Results * SST TOP (08/23/2025 8:24 PM EST)ComponentValueRef RangeTest MethodAnalysis TimePerformed AtPathologist SignatureExtra TubeAuto Tpwmqfbg80/04/2025 10:01 PM ESTPRORESNICK NEUROPSYCHIATRIC HOSPITAL AT UCLApecimen (Source)Anatomical Location / LateralityCollection Method / VolumeCollection TimeReceived TimeBloodVenous blood / Frhqkor1308/23/2025 8:24 PM EST08/23/2025 8:24 PM EST Narrative Authorizing ProviderResult TypeResult StatusKathleen Maribell Lewis MARKETING TECHNOLOGIST-CNMLAB BLOOD ORDERABLESFinal ResultPerforming OrganizationAddressCity/State/ZIP CodePhone Number [facility] [address] [place] [address], * (ABNORMAL) Basic Metabolic Panel (08/23/2025 8:20 PM EST)ComponentValueRef RangeTest MethodAnalysis TimePerformed AtPathologist TtaavsskyQGMQEW281704 - 146 mmol/L110/23/2024 8:37 PM ESTPROLOS BANOS COMMUNITY HOSPITALPOTASSIUM 3.73.5 - 5.0 mmol/L110/23/2024 8:37 PM ESTPROLOS BANOS COMMUNITY HOSPITAL OSIKBFYB68711 - 109 mmol/L110/23/2024 8:37 PM ESTPROLOS BANOS COMMUNITY HOSPITALCARBON AFRBUMH61(L)22 - 32 mmol/L110/23/2024 8:37 PM ESTPROLOS BANOS COMMUNITY HOSPITALANION ELD770 - 15 mmol/L110/23/2024 8:37 PM EST [facility]BLOOD UREA ZDGWHAUZ44 - 23 mg/dL08/23/2025 8:37 PM ESTKETTERING HEALTH MIAMISBURGCREATININE0.530.40 - 1.00 mg/dL 08/23/2025 8:37 PM ESTKETTERING HEALTH MIAMISBURGComment:METHOD TRACEABLE TO IDMS QFIQDOZNOPDCESG093(H)65 - 99 mg/dL08/23/2025 8:37 PM EST [facility]IS[facility]GCALCIUM8.3(L)8.5 - 10.5 mg/dL08/23/2025 8:37 PM [facility] REHABILITATION HOSPITALEGFR Non-Race Dependent>90>=60 ml/min/1.73sq.m110/23/2024 8:37 PM [facility] Comment: eGFR not reported due to non-numeric value for Creatinine. Reported eGFR is based on the CKD-EPI 2020 equation that does not use a race coefficient. Specimen (Source)Anatomical Location / LateralityCollection Method / Volume Collection TimeReceived TimeBloodVenous blood / UnknownVenipuncture / Unknown 08/23/2025 8:20 PM EST08/23/2025 8:23 PM EST Narrative Authorizing ProviderResult TypeResult StatusKathljamilah Lewis MARKETING TECHNOLOGIST-CNMLAB BLOOD ORDERABLESFinal ResultPerforming OrganizationAddressCity/State/ZIP CodePhone Number [facility] [address] [place] [address], * (ABNORMAL) CBC without diff (08/23/2025 8:20 PM EST)ComponentValueRef Range Test MethodAnalysis TimePerformed AtPathologist SignatureWBC8.94 - 11 X10^9/L 08/23/2025 8:32 PM ESTKETTERING HEALTH MIAMISBURGRBC Count3.62(L)3.8 - 5.2 X10^12/L110/23/2024 8:32 PM ESTKETTERING [facility]ALTH [facility]AMISBURG Fdpuqdhogq82.6(L)11.7 - 15.5 g/dL08/23/2025 8:32 PM ESTKETTERING HEALTH MIAMISBURGHematocrit31.2(L)35 - 47 %08/23/2025 8:32 PM ESTKETTERING HEALTH MIAMISBURGMCV8680 - 100 fL08/23/2025 8:32 PM ESTKETTERING HEALTH MIAMISBURGMCH29.227 - 34 pg08/23/2025 8:32 PM ESTKETTERING HEALTH MIAMISBURGMCHC33.832 - 36 g/dL08/23/2025 8:32 PM [facility]HABILITATION HOSPITALRDW13.511.5 - 15 %08/23/2025 8:32 PM [facility]HABILITATION HOSPITALPlatelet Dmdri646326 - 450 X10^9/L110/23/2024 8:32 PM ESTKETTERING HEALTH MIAMISBURGMPV9.27 - 12 fL08/23/2025 8:32 PM EST [facility]PITALpecimen (Source)Anatomical Location / LateralityCollection Method / VolumeCollection TimeReceived TimeBloodVenous blood / UnknownVenipuncture / Rxvaclo5208/23/2025 8:20 PM EST08/23/2025 8:23 PM EST Narrative Authorizing ProviderResult TypeResult StatusKathleen Maribell Lewis MARKETING TECHNOLOGIST-CNMLAB BLOOD ORDERABLESFinal ResultPerforming OrganizationAddressCity/State/ZIP CodePhone Number [facility] [address] [place] [address], * (ABNORMAL) Urinalysis (08/23/2025 8:03 PM EST)ComponentValueRef RangeTest MethodAnalysis TimePerformed AtPathologist SignatureCOLORYellowYellow 08/23/2025 8:41 PM ESTKETTERING HEALTH MIAMISBURGTURBIDITYHazy(A)Clear 08/23/2025 8:41 PM [facility] CENTERPECIFIC GRAVITY1.020 1.003 - 1.7913808/23/2025 8:41 PM [facility]HABILITATION HOSPITALNITRITE AufecdhuRbdpchrd25/04/2025 8:41 PM [facility] PH,URINE7.05.0 - 8.511 8:41 PM [facility] LEUKOCYTE TMXYDNAYCnaxwjtmSnkjyblx03/04/2025 8:41 PM ESTPROLOS BANOS COMMUNITY HOSPITALPROTEINTrace(A)Tnzcenoh31/04/2025 8:41 PM ESTPROLOS BANOS COMMUNITY HOSPITALKETONES (URINE)IbuttfciFrvuzijv64/04/2025 8:41 PM EST [facility]GUROBILINOGEN>=8.0 eu/dL(A)0.2 eu/dL, 1.0 eu/dL08/23/2025 8:41 PM ESTPROLOS BANOS COMMUNITY HOSPITALBILIRUBIN (URINE)KgwbnnyrInrzbfcc98/04/2025 8:41 PM ESTKETTERING HEALTH MIAMISBURGBLOOD/LWGYxqhvgcmIqxrgvcx32/04/2025 8:41 PM ESTKETTERING HEALTH MIAMISBURGAMORPHOUS SEDIMENTPresent(A)None08/23/2025 8:41 PM EST [facility] HOSPITALQUAMOUS TNAZAABBFU36 - 8:41 PM ESTKETTERING HEALTH MIAMISBURGGLUCOSE (URINE)NegativeNegative, 250 mg/dL08/23/2025 8:41 PM ESTPARMA COMMUNITY GENERAL HOSPITALpecimen (Source)Anatomical Location / LateralityCollection Method / VolumeCollection TimeReceived TimeUrineUrine specimen collection, clean catch / Unknown 08/23/2025 8:03 PM EST08/23/2025 8:23 PM EST Narrative Authorizing ProviderResult TypeResult StatusKathleen S Riverton MARKETING TECHNOLOGIST-CNMURINE ORDERABLESFinal ResultPerforming OrganizationAddressCity/State/ZIP CodePhone Number [facility] [address] documented in this encounter Visit Diagnoses Not on filedocumented in this encounter Care Teams Team MemberRelationshipSpecialtyStart DateEnd Date Manuel Schwartz MD PCP - GeneralFamily Medicine01/21/19documented as of this encounter
[2025-08-29 04:33] VITALS: BP 168/77; PULSE 98; TEMP 37.2; O2SAT 96; BMI 39.5
--- NOTE | 2025-08-29 05:03 | ED_ITS ---
HPI - General Chief complaint: Abdominal Pain Stated complaint: 23 WKS ; ABDOMINAL PAIN & DIARRHEA Time Seen by Provider: 08/29/25 04:55 Source: patient Mode of arrival: walk-in Limitations: no limitations History of Present Illness HPI Narrative: cc - abd pain and back pain Patient presents with pain across the mid to lower abdomen that radiates into her back that she says began 1 week and 1 day ago. She admits to some diarrhea during that time. She said her last diarrhea BM was yesterday. She is about 23 weeks . She says she has not talked to Dr. Howard about her symptoms She denies fever or chills. She denies any recent travel. She denies ingesting any spoiled foods. She denies any ill exposures. No close or similar symptoms. Denies any vaginal discharge or bleeding. Said that she has been eating and drinking normally without nausea or vomiting. Related Data Previous Rx's ?Medication ?Instructions ?Recorded cephalexin 500 mg capsule 500 mg PO BID 7 days #14 cap s 08/29/25 Allergies Allergy/AdvReac Type Severity Reaction Status Date / Time Penicillins Allergy Unknown Rash Verified 08/29/25 04:33 PFSH PFSH Social History Little interest or pleasure in doing things: not at all Feeling down, depressed, or hopeless: not at all Exam Narrative Exam Narrative: Nurses notes and vital signs reviewed and patient is not hypoxic. afebrile General: Well-appearing and in no apparent distress. Skin: Warm, dry, no pallor noted. Eye: Pupils are equal, round and EOMI. No scleral icterus. Ears, Nose, Mouth, and Throat: Oral mucosa is moist Cardiovascular: Borderline tachycardia. Respiratory: No accessory muscle use or respiratory distress. Lungs are clear to auscultation, no wheezing, rales or rhonchi Back: No CVA tenderness Musculoskeletal: normal ROM, no calf or popliteal tenderness, no lower extremity edema/swelling GI: Abdomen is soft, non-distended. Normal bowel sounds. Her obesity limits my ability to appreciate any masses. Diffuse lower abdominal tenderness to palpation. No rebound, guarding, or rigidity noted. Neurological: A&O x4. No cranial nerve dysfunction observed. No truncal ataxia. Moves all extremities. Sensation intact. Psychiatric: Cooperative and interactive. Normal mood and affect. Constitutional Vital Signs, click to edit/add: Last Vital Signs Temp 98.9 F 08/29/25 04:33 Pulse 98 H 08/29/25 04:33 Resp 18 08/29/25 04:33 BP 168/77 H 08/29/25 04:33 Pulse Ox 96 08/29/25 04:33 O2 Del Method Room Air 08/29/25 04:33 Course Vital Signs Vital signs: Vital Signs Temperature 98.9 F 08/29/25 04:33 Pulse Rate 98 H 08/29/25 04:33 Respiratory Rate 18 08/29/25 04:33 Blood Pressure 168/77 H 08/29/25 04:33 Pulse Oximetry 96 08/29/25 04:33 Oxygen Delivery Method Room Air 08/29/25 04:33 Temperature 98.9 F 08/29/25 04:33 Pulse Rate 98 H 08/29/25 04:33 Respiratory Rate 18 08/29/25 04:33 Blood Pressure 168/77 H 08/29/25 04:33 Pulse Oximetry 96 08/29/25 04:33 Oxygen Delivery Method Room Air 08/29/25 04:33 MDM - OB/Uterine Contractions MDM Narrative Medical decision making narrative: Patient is about 23 weeks she presents with pain across the abdomen into the back. She denies any vaginal bleeding or discharge, however we are unable to get heart tones on examination. Peripheral IV established blood drawn and sent for testing. Urine was also ordered to be obtained and sent for testing. He was ordered to receive a liter of normal saline IV fluid. Contacted family birthing unit -I let them know this patient's continue to be evaluated on their unit due to pain in the abdomen and back and a lack of heart tones on our examination. Jourdan came down from [facility] to get heart tones on this patient - she got 134bpm. Patient's urine shows findings that suggest acute urinary tract infection. Cultures pending. White blood cell count is normal at 8.7. She was ordered to receive oral Keflex and prescribed the same to take at home to cover this potential infection. I would select the patient to go upstairs to be evaluated further due to her stage in and complaint of back pain abdominal pain. Lab Data Attestation: I reviewed the patient's lab results. Labs: Lab Results 08/29/25 08/29/25 Range/Units 04:40 04:48 WBC 8.7 (4.0-11.0) 10^3/uL RBC 3.66 L (4.20-5.40) 10^6/uL Hgb 11.0 L (12.0-16.0) g/dL Hct 32.5 L (36.0-48.0) % MCV 88.8 (81.0-99.0) fL MCH 30.1 (26.7-34.0) pg MCHC 33.8 (29.9-35.2) g/dL RDW 13.1 (11.0-15.0) % Plt Count 201 (150-450) 10^3/uL MPV 11.4 (9.5-13.5) fL Neut % (Auto) 67.8 (43.0-75.0) % Lymph % (Auto) 21.7 (20.5-60.0) % [place] % (Auto) 8.6 (1.7-12.0) % Eos % (Auto) 0.7 L (0.9-7.0) % Baso % (Auto) 0.5 (0.2-2.0) % Neut # (Auto) 5.9 (1.4-6.5) 10^3/uL Lymph # (Auto) 1.9 (1.2-3.8) 10^3/uL [place] # (Auto) 0.8 (0.3-0.8) 10^3/uL Eos # (Auto) 0.1 (0.0-0.7) 10^3/uL Baso # (Auto) 0.0 (0.0-0.1) 10^3/uL Abs Immat Gran (auto) 0.06 H (0.00-0.03) 10^3/uL Imm/Tot Granulo (auto) 0.7 H (0.0-0.5) % Sodium 137 (136-145) mmol/L Potassium 3.6 (3.5-5.1) mmol/L Chloride 104 (98-107) mmol/L Carbon Dioxide 25.2 (21.0-32.0) mmol/L Anion Gap 11.4 BUN 5.0 L (7.0-18.0) mg/dL Creatinine 0.60 (0.55-1.02) mg/dL Est GFR ( Amer) >60 (>=60 mL/min/1.73m^2) Est GFR (Non-Af Amer) >60 (>=60 mL/min/1.73m^2) BUN/Creatinine Ratio 8.3 Glucose 94 (74-106) mg/dL Calcium 8.7 (8.5-10.1) mg/dL Total Bilirubin 0.5 (0.2-1.0) mg/dL AST 13 L (15-37) U/L ALT 22 (14-59) U/L Alkaline Phosphatase 103 (46-116) U/L Total Protein 7.0 (6.4-8.2) g/dL Albumin 2.7 L (3.4-5.0) g/dL Globulin 4.3 g/dL Albumin/Globulin Ratio 0.6 Urine Color Yellow (YELLOW) Urine Clarity Clear (CLEAR) Urine pH 5.5 (5.0-9.0) Ur Specific [place] >=1.030 A (1.005-1.025) Urine Protein 100 A (NEG/TRACE) mg/dL Urine Glucose (UA) Negative (NEGATIVE) mg/dL Urine Ketones 40 A (NEGATIVE) mg/dL Urine Occult Blood Negative (NEGATIVE) Urine Nitrite Negative (NEGATIVE) Urine Bilirubin Small A (NEGATIVE) Urine Urobilinogen 2.0 A (0.2-1.0) EU/dL Ur Leukocyte Esterase Negative (NEGATIVE) Urine RBC 0-2 (0-2) #/HPF Urine WBC 2-5 A (NONE SEEN) #/HPF Ur Squamous Epith Cells Few A (NONE/RARE) #/LPF Urine Crystals None seen (None Seen) #/HPF Urine Bacteria Small A (NONE SEEN) #/HPF Urine Casts Seen A (NONE SEEN) #/LPF Fine Granular Casts Rare Urine Mucus Small A (NONE SEEN) Ur Culture Indicated? [facility] [place] Plan Discharge Chief Complaint: Abdominal Pain Clinical Impression: Abdominal pain, UTI (urinary tract infection) Patient Disposition: Home, Self-Care Time of Disposition Decision: 05:22 Prescriptions / Home Meds: New cephalexin 500 mg capsule 500 mg PO BID 7 Days Qty: 14 0RF Print Language: Bulgarian Instructions: Abdominal Pain (ED), Urinary Tract Infection in (ED) Referrals: Manuel Schwartz MD [Primary Care Provider, Family Practice] - 1 week
[2025-08-29 05:05] LABS: Hematocrit 32.5 % (36.0-48.0); Hemoglobin 11.0 g/dL (12.0-16.0); Immature Granulocytes Abs Auto 0.06 10^3/uL (0.00-0.03); Immature Granulocytes Pct Auto 0.7 % (0.0-0.5); Lymphocytes Absolute Auto 1.9 10^3/uL (1.2-3.8); Mean Corpuscular HGB Conc 33.8 g/dL (29.9-35.2); Mean Corpuscular Hemoglobin 30.1 pg (26.7-34.0); Mean Corpuscular Volume 88.8 fL (81.0-99.0); Platelet Count 201 10^3/uL (150-450); Red Blood Count 3.66 10^6/uL (4.20-5.40); White Blood Count 8.7 10^3/uL (4.0-11.0)
[2025-08-29 05:06] LABS: Glucose Urine UA NEGATIVE (NEGATIVE)
--- OUTSIDE RECORDS SUMMARY | 2025-08-29 05:09 | XMS_ITS | Encounter Summary ---
Author Organization [facility] tem Address [id number] [address] [place] [address] Care Team Providers Care Filter Press Tender Head Name Role Phone Manuel Schwartz MD Primary Care Provider [phone] Encounter Details DateTypeDepartmentCare Team (Latest Contact Info)Qybetxwnoqm90/04/2025 - 08/23/2025 7:18 PM [facility] [address] [place] [address] Discharge Disposition: ED Dismiss - Never Arrived Social History Tobacco UseTypesPacks/DayYears UsedDateSmoking Tobacco: NeverSmokeless [...] as a part of a household?No 08/23/2025hildcareAnswerDate UgibcdjiUtjehrficIsaxwwt99/11/2019EmploymentAnswer Date UjrpqlloIogyxutrmcVryispp88/11/2019Hunger ScreeningAnswerDate Recorded Within the past 12 months we worried whether our food would run out before we got money to buy more.Never True08/23/2025Within the past 12 months the food we bought just didn't last and we didn't have money to get more.Never True 08/23/2025Purpose - LifeAnswerDate RecordedPurpose and direction in lifeUnknown 1Estimated Date of NvfjzrduYqaiigzyOhr51/09/2026Based on UltrasoundSex and Gender InformationValueDate RecordedSex Assigned at BirthNot on fileLegal ZqfIrouhq09/04/2015 6:13 PM EDTGender IdentityNot on fileSexual OrientationNot on filedocumented as of this encounter Medications at Time of Discharge [...] 10 tablet 4documented as of this encounter Plan of Treatment Not on file documented as of this encounter Visit Diagnoses Not on filedocumented in this encounter Care Teams Team MemberRelationshipSpecialtyStart DateEnd Date Manuel Schwartz MD PCP - GeneralFamily Medicine01/21/19documented as of this encounter
--- OUTSIDE RECORDS SUMMARY | 2025-08-29 05:09 | XMS_ITS | Encounter Summary ---
Author Organization [facility] Address [address] [place] [address] Care Team Providers Care Motor Coach Chauffeur Name Role Phone Manuel Noel MD Primary Care Provider [phone] Manuel Noel MD Unavailable Encounter Details DateTypeDepartmentCare Team (Latest Contact Info)Bvwjtbhpmuc38/15/2024linisync Result Encounter [facility] Unsolicited Manuel Noel MD [address] [place] [address] Social History Tobacco UseTypesPacks/DayYears UsedDateSmoking Tobacco: NeverSmokeless Tobacco: NeverSocial Connection and Isolation PanelAnswerDate RecordedIn a typical week, how many times do you talk on the phone with family, friends, or neighbors?Twice a week03/02/2024How often do you get together with friends or relatives?Twice a week03/02/2024How often do you attend sikh or roman catholic services?Never 03/02/2024ctive Member of Clubs or OrganizationsNot on file03/02/2024ttends Club or Organization MeetingsNot on file03/02/2024Marital StatusNot on file 03/02/2024UDIT-CAnswerDate RecordedQ1: How often do you have a drink containing alcohol?2-4 times a month03/02/2024Q2: How many drinks containing alcohol do you have on a typical day when you are drinking?1 or Q3: How often do you have six or more drinks on one occasion?Never03/02/2024Exercise Vital SignAnswer Date RecordedOn average, how many days per week do you engage in moderate to strenuous exercise (like a brisk walk)?Patient iahmokyq52/14/2024On average, how many minutes do you engage in exercise at this level?Patient jvaileuu09/14/2024 Housing Stability Vital SignAnswerDate RecordedIn the last 12 months, was there a time when you were not able to pay the mortgage or rent on time?No03/02/2024In the last 12 months, how many places have you lived?In the last 12 months, was there a time when you did not have a steady place to sleep or slept in [place] (including now)?No03/02/2024CommentsUnknownSex and Gender InformationValueDate RecordedSex Assigned at BirthNot on fileLegal SexFemale 01/01/2023 8:14 PM EDTGender IdentityNot on fileSexual OrientationNot on file documented as of this encounter Plan of Treatment DateTypeDepartmentCare Team (Latest Contact Info)Yqsllrecgfi50/12/2025 11:20 AM [facility]out[facility] [address] [place] [address] Gia Agustin PA [address] [place] [address] documented as of this encounter Procedures Procedure NamePriorityDate/TimeAssociated DiagnosisCommentsXR LUMBAR SPINE 2 OR 3V06/03/2024 1:10 PM EDT documented in this encounter Results * XR LUMBAR SPINE 2 OR 3V (06/03/2024 1:10 PM EDT)Anatomical RegionLaterality ModalityRadiographic ImagingSpecimen (Source)Anatomical Location / Laterality Collection Method / VolumeCollection TimeReceived Time06/03/2024 1:10 PM EDT Narrative 06/03/2024 1:13 PM EDT [facility] ?[address] ? [place] [address] ?XRay Report ? Signed ? Patient: HEATHER,MANISH L ?MR#: [id number] ?? : 2000 ?Acct:[id number] ?? Age/Sex: 23 / F ?ADM Date: 08/13/24 ?? Loc: RAD ? Attending Dr: Manuel Noel M.D. ? Ordering Physician: Manuel Noel M.D. ?? Date of Service: 06/01/24 ?? Procedure(s): XR lumbar spine 2-3V ?? Accession Number(s): [id number] ? cc: Manuel Noel M.D. ? [facility] ? [address] ? [place] [address] ? Patient Name: ?? MANISH ROMERO ? MRN: [employer] [facility]:[id number] ? date: 2000 ?Sex: F ?? Assigned Patient Location: RAD ?? Current Patient Location: ? Accession/Order Number: [id number] ?? Exam Date: 06/01/2024 ??14:19 ?Report Date: 06/03/2024 ??13:10 ? At the request of: ?? MANUEL ??BERT ? Procedure: ??XR lumbar spine 2-3V ? EXAMINATION: XR lumbar spine 2-3V ? HISTORY: Right Sided Sciatica M54.31 ? COMPARISON: No relevant comparison available. ? FINDINGS: ?? BONES: No significant spondylosis, scoliosis, fracture, or visible bony ?? lesion. ? DISC SPACES: No significant disc height narrowing, subluxation, or endplate ?? abnormality. ?? PARASPINOUS: Negative. No paraspinous abnormality is seen. ?? OTHER: Negative. ? XR/XR lumbar spine 2-3V ?? IMPRESSION: ? 1. No acute abnormality or appreciable degenerative changes. ? Electronically authenticated by: DUARTE ??NATE ?? Date: 06/03/2024 ??13:10 ? Dictated By: ?Duarte Johansen M.D. ? Signed By: ?06/03/24 1313 ? DD/ 1310 ? TD/TT: ? Fitter/Welder: Procedure Note Radiology, Radiologist, MD - 06/03/[address] [address] XRay Report Signed Patient: MANISH ROMERO LMR#: [id number] : 2000Acct:[id number] Age/Sex: 23 / FADM Date: 06/01/24 Loc: RAD Attending Dr: Manuel Noel M.D. Ordering Physician: Manuel Noel M.D. Date of Service: 06/01/24 Procedure(s): XR lumbar spine 2-3V Accession Number(s): [id number] cc: Manuel Noel M.D. [address] [address] Patient Name: MANISH ROMERO MRN: [employer]:[id number] date: 2000 Sex: F Assigned Patient Location: [facility] Current Patient Location: Accession/Order Number: [id number] Exam Date: 06/01/2024 14:19 Report Date: 06/03/2024 [...] M.D. Signed By:06/03/24 1313 DD/ 1310 TD/TT: Fitter/Welder: Authorizing ProviderResult TypeResult StatusMarc Bert MATSONIMG XR PROCEDURES Final Result documented in this encounter Visit Diagnoses Not on filedocumented in this encounter Care Teams Team MemberRelationshipSpecialtyStart DateEnd Date Manuel Noel MD [facility] - [facility] Manuel Noel MD [address] [place] [address] [facility]07/20/24documented as of this encounter
--- OUTSIDE RECORDS SUMMARY | 2025-08-29 05:09 | XMS_ITS | CCD ---
Author Organization [facility] Care Team Providers Care New Car Inspector Name Role Phone DEMETRIOC, DR WILLS Attending [...] DR MANUEL Souza Primary Care Unavailable KRISHNA SAXENA Attending Unavailable ION, KRISHNA Admitting Unavailable KRISHNA SAXENA Consulting Unavailable NADERER, DR MANUEL Souza Primary [...] ., DR GAN Procedure Practitioner Em vailable BERT, DR MANUEL Souza Primary Care Unavailable KARASIK [...] Unavailable ANITA ., DR ANDREA Attending Unavailable [place], DR AISHWARYA Luis Consulting Unavailable NADERER, DR [...] Unavailable NADERER, DR MANUEL Souza Consulting Unavailable Manuel Noel MD Primary Care Provider [phone] Mir Silva MD Attending Provider Manuel Noel MD Primary Care Provider Manuel Noel MD Unavailable Manuel Noel MD Primary Care Provider Krishna Saxena MD Attending Provider Jefferson Howard DO Attending Provider Manuel Noel Primary Care Unavailable Mir Silva Admitting Unavailable Mir Silva Attending Unavailable Bert, Manuel Primary Care Unavailable Krishna Saxena Admitting Unavailable Krishna Saxena Attending Unavailable Jefferson Howard Admitting Unavailable Jefferson Howard Attending Unavailable Manuel Noel MD Primary Care Provider [phone] Manuel Noel MD Unavailable Manuel Noel MD Unavailable ANITA, JEFFERSON Attending Unavailable ANITA, JEFFERSON Attending Unavailable GIA AGUSTIN Attending Unavailable ANITA, JEFFERSON Attending Unavailable ANITA, JEFFERSON Attending Unavailable ANITA, JEFFERSON Attending Unavailable GIA AGUSTIN Attending Unavailable ANITA, JEFFERSON Attending Unavailable ANITA, JEFFERSON Referring Unavailable MANUEL NOEL Primary Care Unavailable MYLENE SAMPSON Attending Unavailable MANUEL NOEL Primary Care Unavailable MAO PETERSEN Attending Unavailable MANUEL NOEL Primary Care Unavailable WONG HERNDON Admitting Unavailable WONG HERNDON Attending Unavailable MANUEL NOEL Primary Care Unavailable Allergies Allergy ClassificationReported Allergen(s)Allergy TypeDate of OnsetReaction(s) Facility (2 sources)Penicillins; Translations: [PENICILLINS]Drug allergy (disorder) 16-90-9515Ukl [facility] (20 sources)PenicillinsDrug Sssmywhtiyi14-28-4378UastyaxRKBY Healthcare (1 source)PenicillinsDrug allergy (disorder)15-41-0848PkbmlkvulLancaster Municipal [facility] Medications Current Medications MedicationDrug Class(es)DatesSig (Normalized)Sig (Original)200 actuat albuterol 0.09 mg/actuat dry powder inhaler (14 sources)beta2-Adrenergic AgonistStart: 62-42-3878Ydsuuopdx Sulfate 90 mcg/actuation aerosol powdr breath activated Active 1 INH INHALATION EVERY 4-6 HOURS as needed October 05, 2024 1:00amStart: 02-27-2024 End: 27-19-4755gjus 2 puff(s) by inhalation every four hoursalbuterol HFA 90 mcg/act inhaler Indications: Mild intermittent intrinsic asthma without status asthmaticus without complication (CMS/HCC) Inhale 2 puffs every 4 (four) hours if needed for shortness of breath 18 g 3 02/27/2024 12/22/2024 Discontinued Start: 12-12-2021 End: 65-89-6314Lrcpzsehh Sulfate (Ventolin Hfa) 90 mcg/actuation HFA aerosol inhaler Discontinued 2 INH PZBGPZLDWAR5E as needed for sob December 12, 2021 1:00am August 24, 2024 10:32ammeclizine hydrochloride 25 mg oral tablet (3 sources)AntiemeticStart: 58-73-5016Vrsvwqdyf 25 mg tablet Active 25 MG PO As Directed as needed for dizziness August 24, 2024 1:00amomeprazole 40 mg delayed release oral capsule (20 sources)Proton Pump InhibitorStart: 03-02-2024 End: 07-56-5009valz 1 capsule by mouth in the morningomeprazole (PriLOSEC) [address] capsule Indications: Gastroesophageal reflux disease, unspecified whether esophagitis present Take 1 capsule (40 mg) by mouth in the morning and 1 capsule (40 mg) in the evening. Take before meals. 60 capsule 5 05/05/2025 ActiveStart: 12-14-2021 End: 52-00-9267wutv 1 capsule by mouth once dailyOmeprazole 20 mg Capsule,Delayed Release(Dr/Ec) Discontinued 20 MG PO Daily December 14, 2021 1:00am September 07, 2024 2:33pmStart: 11-20-2017 End: 68-03-3803Ywwfvrxhfb 20 mg Capsule,Delayed Release(Dr/Ec) Discontinued 20 MG PO as needed for Acne November 20, 2017 1:00am December 12, 2021 3:38pm ondansetron 4 mg oral tablet (20 sources)Serotonin-3 Receptor AntagonistStart: 11-11-2024 End: 57-22-6856fehn 1 tablet by mouth every six hours as needed for nausea and nausea, then take 1 tablet by mouthevery six hours as needed for nausea and nauseaondansetron (Zofran) 4 MG tablet Indications: Right ovarian cyst , Nausea , PCOS (polycystic ovarian syndrome) Take 1 tablet (4 mg) by mouth every 6 (six) hours if needed for nausea or vomiting for up to 30 doses Take 1 tablet by mouth every 6 hours as needed for nausea. 30 tablet 3 06/07/2025 Active promethazine hydrochloride 12.5 mg oral tablet (20 sources)PhenothiazineStart: 19-52-7512amdu 1 tablet by mouth every six hours as needed for nausea and vomiting and nausea and nauseapromethazine (Phenergan) 12.5 MG tablet Indications: Nausea Take 1 tablet (12.5 mg) by mouth every 6 (six) hours if needed for nausea or vomiting for up to 30 doses Take 1 tablet by mouth every 6 hours as needed for nausea. 30 tablet 2 07/05/2025 ActiveStart: 77-76-6996iqew 1 tablet by mouth every six hours as needed for nausea and vomitingPromethazine 25 mg tablet Active 25 MG PO Every 6 hours as needed for nausea and vomiting August 27, 2024 1:00am End: 89-55-0628xfidsccefved (Phenergan) 12.5 MG tablet Take by mouth 05/05/2025 Discontinuedsucralfate 1000 mg oral tablet (2 sources)Aluminum ComplexStart: 32-09-1271dycg 1 tablet by mouth twice daily Sucralfate (Carafate) 1 gram tablet Active 1 GM PO Twice daily 60 October 05, 2024 1:00am Completed/Discontinued Medications MedicationDrug Class(es)DatesSig (Normalized)Sig (Original)ARIPiprazole 2 mg oral tablet (3 sources)Atypical AntipsychoticStart: 01-26-2019 End: 46-48-6330ryfq 1 tablet by mouth once dailyAripiprazole 2 mg Tablet Discontinued 2 MG PO Daily 14 January 26, 2019 12:00am December 12, 2021 3:38pmcyclobenzaprine hydrochloride 10 mg oral tablet (4 sources)Muscle RelaxantStart: 06-01-2024 End: 24-46-1490uzvr 1 tablet by mouth three times daily as needed for muscle spasmscyclobenzaprine (Flexeril) 10 MG tablet Indications: Right sided sciatica Take 1 tablet (10 mg) by mouth 3 (three) times a day as needed for muscle spasms 30 tablet 06/01/2024 11/11/2024 Discontinued(Other)Drospirenone-Ethinyl Estradiol (3 sources)Progestin, EstrogenStart: 12-12-2021 End: 39-55-8579wjjt 1 tablet by mouth once dailyDrospirenone-Ethinyl Estradiol 3-0.03 mg tablet Discontinued 1 TAB PO Daily December 12, 2021 1:00am August 24, 2024 10:33amStart: 12-12-2021 End: 20-32-5680goab 1 tablet by mouth once dailyDrospirenone-Ethinyl Estradiol 3-0.03 mg tablet Discontinued 1 TAB PO Daily December 12, 2021 12:00am August 24, 2024 9:33amDULoxetine 30 mg delayed release oral capsule (3 sources)Serotonin and Norepinephrine Reuptake InhibitorStart: 12-14-2021 End: 05-36-9290uowb 1 capsule by mouth once daily at bedtimeDuloxetine 30 mg Capsule,Delayed Release(Dr/Ec) Discontinued 30 MG PO Daily at bedtime December 14, 2021 1:00am August 24, 2024 10:32amergocalciferol 1.25 mg oral capsule (3 sources)Provitamin D2 CompoundStart: 01-26-2019 End: 17-18-3613Xcqpfrkuwabtcd (Vitamin D2) 50,000 unit Capsule Discontinued 74536 UNIT PO Sa@0900 2 January 26, 2019 12:00am December 12, 2021 3:38pm ethinyl estradiol 0.035 mg / norgestimate 0.25 mg oral tablet (9 sources)Progestin, EstrogenStart: 12-22-2024 End: 01-36-5240tryg 1 tablet by mouth once daily, then take 1 tablet by mouth once dailynorgestimate-ethinyl estradiol (Sprintec 28) 0.25-35 MG-MCG tablet Indications: control counseling Take 1 tablet by mouth Daily for 28 days Take 1 tablet by mouth daily 28 tablet 11 12/22/2024 04/27/2025 Discontinued (Therapy completed)sertraline 50 mg oral tablet (3 sources)Serotonin Reuptake InhibitorStart: 01-26-2019 End: 09-84-5939kutq 1 tablet by mouth once dailySertraline 50 mg Tablet Discontinued 50 MG PO Daily 14 January 26, 2019 12:00am December 12, 2021 3:38pm Problems Active Problems Problem ClassificationProblemDateDocumented DateEpisodic/ChronicAcute posthemorrhagic anemia (1 source)Acute posthemorrhagic anemia; Translations: [ACUTE POSTHEMORRHAGIC ANEMIA]Onset: 53-03-7468LtsagebbJfeaorjiggrrkz/social admission (2 sources)Patient encounter status; Translations: [Person consulting for explanation of examination or test findings]53-83-5491TirghnaxEkphkh (20 sources)Mild intermittent asthma; Translations: [Mild intermittent asthma, uncomplicated]Onset: 264805-32-6250MqpruqsHqxrdm of cervix (3 sources)Cervical intraepithelial neoplasia grade 1; Translations: [Low grade squamous intraepithelial lesion on cytologic smear of cervix (LGSIL)]01-17-2025 EpisodicContraceptive and procreative management (3 sources)Subcutaneous contraceptive implant present; Translations: [Encounter for surveillance of implantable subdermal contraceptive]68-30-7760Zlgvalfw Esophageal disorders (20 sources)Gastroesophageal reflux disease; Translations: [Gastro-esophageal reflux disease without esophagitis]Onset: 730005-91-8721PrrebbvBcuzfgvxat disorders (2 sources)Esophagitis; Translations: [Esophagitis]66-70-2764Aiiglqzd Immunizations and screening for infectious disease (4 sources)Encounter for screening for infections with a predominantly sexual mode of transmission; Translations: [Contact with and (suspected) exposure to infections with a predominantly sexual mode of transmission]Onset: 06-10-2022 06-84-6268QjeotoguZdslynbnv (1 source)Influenza due to other identified influenza virus with other respiratory manifestations; Translations: [FLU D/T OTH ID FLU VIR OTH RSP MANF] Onset: 12-17-5726PainxozrSrkslomlp disorders (20 sources)Irregular menstruation, unspecified; Translations: [Amenorrhea] Onset: 47-15-1020PsjarlgYkoj disorders (20 sources)Recurrent major depression; Translations: [Major depressive disorder, recurrent, unspecified]Onset: 920326-37-7464YscgcqwNhcjra and vomiting (11 sources)Nausea; Translations: [Nausea]16-24-7815LfadwyxhRnruw complications of ; puerperium affecting management of mother (1 source)Obesity complicating childbirth; Translations: [OBESITY COMPLICATING CHILDBIRTH]Onset: 79-42-0293ZtkorfdKgonp complications of ; puerperium affecting management of mother (1 source)Anemia of the puerperium; Translations: [ANEMIA OF THE PUERPERIUM] Onset: 92-95-6274HrxjzkeCaerk complications of (2 sources)Obesity complicating , third trimester; Translations: [OBESITY COMP THIRD TRI]Onset: 64-76-6447TsbbjzhItgax complications of (4 sources) related conditions, unspecified, unspecified trimester; Translations: [ RELATED COND UNS UNS TRI]Onset: 54-34-1045BhamjqctGstrs complications of (1 source)Diseases of the respiratory system complicating , third trimester; Translations: [DISEASESRESP SYS COMP PREG 3RD TRI]Onset: 09-24-2022 EpisodicOther complications of (1 source)Other specified related conditions, unspecified trimester; Translations: [Other specifiedpregnancy related conditions, unspecified trimester]Onset: 27-73-9884EkxestnoEppjm ear and sense organ disorders (3 sources)Otalgia, left ear; Translations: [OTALGIA LEFT EAR]Onset: 09-22-2022 EpisodicOther endocrine disorders (5 sources)Polycystic ovary syndrome; Translations: [Polycystic ovarian syndrome]10-56-0813IyuputdVdrlz female genital disorders (2 sources)Vaginal discharge; Translations: [Other specified noninflammatory disorders of vagina]64-33-5285ObmowvmdFcqsm gastrointestinal disorders (3 sources)Constipation; Translations: [Constipation, unspecified]01-21-2019 EpisodicOther gastrointestinal disorders (1 source)Constipation, unspecified; Translations: [Constipation, unspecified] 10-12-8737WhqhhsgmQgvsp gastrointestinal disorders (1 source)Diarrhea, unspecified; Translations: [Diarrhea, unspecified]Onset: 88-63-2336JtcjtfnlNwlha nutritional; endocrine; and metabolic disorders (20 sources)Morbid obesity; Translations: [Morbid (severe) obesity due to excess calories]Onset: 624604-48-6116SfnyznuHrrey screening for suspected conditions (not mental disorders or infectious disease) (20 sources)Encounter for screening for malignant neoplasm of cervix; Translations: [Encounter for other specified screening]Onset: 23-51-2817MmwkyowrAtugq upper respiratory disease (20 sources)Allergic rhinitis due to pollen; Translations: [Allergic rhinitis due to pollen]Onset: 178476-56-3276XaheexdKcmufz media and related conditions (1 source)Unspecified nonsuppurative otitis media, bilateral; Translations: [UNS NONSUPPURATIVE OTITIS MEDIA OSCAR]Onset: 79-95-8347OviwkqjtHzcvohk cyst (5 sources)Cyst of right ovary; Translations: [Unspecified ovarian cyst, right side]02-49-7493AbtxfofkVelvljha codes; unclassified (1 source)38 weeks gestation of ; Translations: [38 WEEKS GESTATION OF ]Onset: 59-79-7211EtkpqcwzPotmaavm codes; unclassified (1 source)29 weeks gestation of ; Translations: [29 WEEKS GESTATION OF ]Onset: 93-98-6594YvjgplvrQayjwdfu codes; unclassified (2 sources)Gestation period, 11 weeks; Translations: [11 weeks gestation of ]39-82-3042YdbsjctkOxmfdxua codes; unclassified (2 sources)Gestation period, 15 weeks; Translations: [15 weeks gestation of ]20-71-5994BerwopftCqkgfcaw codes; unclassified (2 sources)Gestation period, 19 weeks; Translations: [19 weeks gestation of ]14-45-3366LcqcslrlUzdjqnb disorders (1 source)Disorder of thyroid gland; Translations: [Disorder of thyroid, unspecified]15-91-0436UuwjhaprSphddqvswiii (2 sources)OT SPCF DIS/COND COMPL ; Translations: [OT SPCF DIS/COND COMPL ]Onset: 24-19-4075Vztxixjddlax (1 source)STOMACH PAIN, DIARRHEAOnset: 08-28-2024 Past or Other Problems Problem ClassificationProblemDateDocumented DateEpisodic/ChronicAbdominal pain (20 sources)Indigestion; Translations: [Epigastric pain]Onset: 03-02-2024 Resolved: 157197-24-2807VlazpybqWelrtemdxetel gastroenteritis (1 source)Noninfective gastroenteritis and colitis, unspecified; Translations: [Noninfective gastroenteritis and colitis, unspecified]Onset: 24-81-1174Vbtonspi Other complications of (4 sources)Abnormal ultrasonic finding on screening of mother; Translations: [ABNORM US SCREEN MOTHER]Onset: 58-41-2051TfzhdxiuNqwgy and delivery including normal (20 sources)Single live ; Translations: [Encounter for supervision of other normal , third trimester]Onset: 13-93-5316BbgdxafwZkfuworv codes; unclassified (1 source)26 weeks gestation of ; Translations: [26 WEEKS GESTATION OF ]Onset: 81-54-6939YcooxucpYiioeenp codes; unclassified (1 source)18 weeks gestation of ; Translations: [18 WEEKS GESTATION OF ]Onset: 75-18-9953RkodzegpTerdnnrl codes; unclassified (1 source)Less than 8 weeks gestation of ; Translations: [< 8 WEEKS GESTATION ]Onset: 03-04-9938HeomgjwlDlxbfnsbeoz; intervertebral disc disorders; other back problems (20 sources)Cervicalgia; Translations: [Torticollis]Onset: 13-17-3037Zcaaptjp Results Test NameValueInterpretationReference RangeFacilityBASIC METABOLIC PANELon 13-55-7370Hpjki gap [Moles/Vol]10 mmol/LNormal5-15[facility] Comment on above:Performed By: #### BMP #### [facility] ([address] [address] VIRCalcium [Mass/Vol]8.3 mg/dLLow8.5-10.5PBarnesville HospitalComment on above:Performed By: #### BMP #### [facility] ([address] [address] VIRChloride [Moles/Vol]103 mmol/CJlhzsl96-882UbhLsjnllEl Campo Memorial HospitalComment on above:Performed By: #### BMP #### [facility] ([address] [address] VIRCO2 [Moles/Vol]21 mmol/FGoa52-80JrjHuqsmiBarnesville Hospital Comment on above:Performed By: #### BMP #### [facility] ([address] [address] VIRCreatinine [Mass/Vol]0.53 mg/dLNormal0.40-1.00Pro[facility] HospitalComment on above:Result Comment: METHOD TRACEABLE TO IDTX STANDARDPerformed By: #### BMP #### [facility] ([address] [address] VIREGFR (CKD-EPI) NON-RACE DEPENDENT>^90Normal>=60ProEl Campo Memorial HospitalComment on above:Result Comment: eGFR not reported due to non- numeric value for Creatinine. Reported eGFR is based on the CKD-EPI 2020 equation that does not use a race coefficient.Performed By: #### BMP #### [facility] ([address] [place] [address] VIRGlucose [Mass/Vol]101 mg/gPMdaz94-13OvnUlmahlEl Campo Memorial HospitalComment on above:Performed By: #### BMP #### [address] [place] [address] VIRPotassium [Moles/Vol]3.7 mmol/LNormal3.5-5.0ProEl Campo Memorial HospitalComment on above:Performed By: #### BMP #### [facility] ([address] [place] [address] VIRSodium [Moles/Vol]134 mmol/MWuagmw034-836TsfUkypob [facility] HospitalComment on above:Performed By: #### BMP #### [facility] ([address] [place] [address] VIRUrea nitrogen [Mass/Vol]5 mg/dLNormal5-23ProEl Campo Memorial HospitalComment on above:Performed By: #### BMP #### [facility] ([address] [place] [address] VIRCBC (NO DIFF)on 90-07-2267Ekutsjnispz distribution width (RBC) [Ratio]13.5 %Ryadkl70.5-15ProEl Campo Memorial HospitalComment on above: Performed By: #### CBC #### [facility]) [address] [place] [address] VIRHematocrit (Bld) [Volume fraction]31.2 %Exx78-53OdqVsfyceEl Campo Memorial HospitalComment on above:Performed By: #### CBC #### [facility] ([address] [place] [address] VIRHemoglobin (Bld) [Mass/Vol]10.6 g/dLLow11.7-15.5ProMedica Kindred HospitalComment on above:Performed By: #### CBC #### [facility] ([address] [place] [address] VIRMCH (RBC) [Entitic mass]29.2 hvNmeapq99-28UktXzkseeEast Liverpool City HospitalComment on above:Performed By: #### CBC #### [facility] ([address] [place] [address] VIRMCHC (RBC) [Mass/Vol]33.8 g/iWKevzsr93-14GpiMbjbwhEl Campo Memorial HospitalComment on above:Performed By: #### CBC #### [facility] ([address] [place] [address] VIRMCV (RBC) [Entitic vol]86 tABnblyt58-808XopTldwxqEast [facility] City HospitalComment on above:Performed By: #### CBC #### [facility] ([address] [place] [address] VIRPlatelet mean volume (Bld) [Entitic vol]9.2 fLNormal7-12 [facility] HospitalComment on above:Performed By: #### CBC #### [facility] ([address] [place] [address] VIRPlatelets (Bld) [#/Vol]186 10*3/aTOcxdei927-687EzdVyjmho [facility] HospitalComment on above:Performed By: #### CBC #### [facility] ([address] [place] [address] VIRRBC COUNT3.62 X10^12/LLow3.8-5.2PBarnesville Hospital Comment on above:Performed By: #### CBC #### [facility] ([address] [place] [address] VIRWBC (Bld) [#/Vol]8.9 10*3/uLNormal4-11[facility] HospitalComment on above:Performed By: #### CBC #### [facility] ([address] [address] VIRURINALYSISon 51-65-7516Xfddzwcri sediment LM Ql (Urine sed) PresentAbProtestant Deaconess HospitalComment on above:Performed By: #### UA #### [facility] ([address] [place] [address] VIRBilirubin Ql (U)NegativeNormalNegativeEast [facility] City HospitalComment on above:Performed By: #### UA #### [facility] ([address] [address] VIRBLOOD/HGBNegativeNormalNegativeEast [facility] Comment on above:Performed By: #### UA #### [facility] ([address] [place] [address] VIRColor (U)YellowNormalYellowEast [facility] Hospital Comment on above:Performed By: #### UA #### [facility] ([address] [address] VIRGlucose Ql (U)NegativeNormalNegative, 250 mg/dLProEl Campo Memorial HospitalComment on above:Performed By: #### UA #### [facility] ([address] [address] VIRKetones Ql (U)NegativeNormalNegativeProEl Campo Memorial HospitalComment on above:Performed By: #### UA #### [facility] ([address] [place] [address] VIRLeukocyte esterase Test strip Ql (U)NegativeNormalNegative [facility] HospitalComment on above:Performed By: #### UA #### [facility] ([address] [address] VIRNitrite Ql (U)NegativeNormalNegativeEast [facility] City HospitalComment on above:Performed By: #### UA #### [facility] ([address] [address] VIRPH,URINE7.3Fderai2.0-8.5PBarnesville HospitalComment on above:Performed By: #### UA #### [facility] ([address] [address] VIRProtein Ql (U)TraceAbnormalNegativeEast [facility] City HospitalComment on above:Performed By: #### UA #### [facility] ([address] [address] VIRSpecific gravity (U) [Rel density]1.456Rgvlxn5.003-1.035 [facility] HospitalComment on above:Performed By: #### UA #### [facility] ([address] [address] VIRSQUAMOUS FKBYWZISYR3Ubwrdx1-9RsvAutdhz [facility] Comment on above:Performed By: #### UA #### [facility] ([address] [place] [address] VIRTURBIDITYHazyAbnormalClearPBarnesville HospitalComment on above:Performed By: #### UA #### [facility] ([address] [place] [address] VIRUROBILINOGEN>=8.0 eu/dLAbnormal0.2 eu/dL, 1.0 eu/dL [facility] HospitalComment on above:Performed By: #### UA #### [facility] ([facility]) [address] [place] [address] [place] [address] VIRUS OB 14+ WEEKS ANATOMY SCANon 27-37-2899RV OB 14+ WEEKS ANATOMY SCANFINDINGS: A single, live intrauterine is present with normal cardiac rate of 153 beats per minute. Normal activity. Morphology is grossly normal, evaluation limited by patient body habitus. Cervix inferior aspect 9.0 cm from the closed internal cervical os, cervical length 4.3 cm. The placenta is posterior, Grade 1 not associated with the cervical os. The current sonographic age is 21weeks and 4 days, based on the following measurements: BPD 5.0 cm (21 weeks, 0 days) Head Circumference 18.2 cm 20( weeks,4 days) Abdominal Circumference 17.3cm ( 22weeks, 2 days) Femur Length 3.8cm (22 weeks, 2 days) Presentation Cephalic Placenta Posterior Grade 1 Weight (g) by Percentile Greater 97 % * These measurements result in an estimated date of delivery of December 17, 2025. The current estimated weight is 470 grams ( 1 pound, 1 ounces). IMPRESSION: Single, live intrauterine , current sonographic age of 21 weeks and 4 days, with an estimated date of delivery of December 17, 2025. * Estimated Weight (g) by Percentile is based upon an accurate estimated age based on last menstrual period. TRANSCRIBED BY: ELECTRONICALLY SIGNED BY: Jerri Roger AvailableComment on above:Order Comment: US OB ANATOMY SINGLE W US OB CERVICAL LENGTH Estimated Date of Delivery: 12/26/25 Gestational Age as of 08/02/2025: 38u6aLVA, SERUM, OPEN SPINA BIFIDAon 93-76-0993SFL MOM1.07.[facility] HealthcareAFP VALUE31.7 ng/mL.[facility] HealthcareCOMMENT: Comment.[facility]S HealthcareComment on above:Caitlin Palafox, Ph.D., [facility] Director References: Available Upon Request. Multiples Of Median Cutoffs For AFP Elevations Caro 2.5 Black 2.8 IDD 2.0 Twins 4.5 Abbreviation Definitions IDD - Insulin Dep Diabetes OSBR - Open Spina Bifida Risk For further inquiries contact [facility] at [phone]. This test was developed and its performance characteristics determined by [employer]. It has not been cleared or approved by the Food and Drug Administration. Performed at: [facility] [address] [place], [place] [id number] Medicine Assistant: Loenidas Oneill [facility], Phone: [phone] GEST. AGE ON COLLECTION DATE18.0. weeksNOTX HealthcareGESTAT. AGE BASED ON Ultrasound.[facility] HospitalComment on above:15.1 on 07/05/2025 Recalculations are not recommended when gestational dating by LMP and ultrasound are within 10 days. INSULIN DEP DIABETESNo.[facility] HealthcareINTERPRETATIONComment.[facility] Comment on above:Interpretation: Screen Negative This result is screen negative for [...] Customer Services to discuss available options. [employer] recommends amniocentesis be offered to women age 35 and older. MATERNAL AGE AT EDD25.1. yrNOTX HealthcareMULTIPLE GESTATIONNo.[facility] Healthcare OSBR RISK 1 [id number].[facility] HealthcareRACECaucasian.[facility] HealthcareRESULTSReport. [facility] HealthcareTEST RESULTS:Negative.[facility] BnlvmwzehbWCZFXP390. lbsNOMS HealthcarePREGNANCY N N ULTRASOUND [id number] 1 15 N 1 Y 285 N N N N N White/ CLINISYNCNOMS HealthcareRECURRENT VAGINITIS (HTRX)on 01-50-6401CIQOUTKIV VAGINAE 0NOMS HealthcareATOPOBIUM VAGINAENot detectedNOTX HealthcareBVAB 2,3 (BACTERIAL VAGINOSIS ASSOCIATED BACTERIA 2, 3); MOBILUNCUS HVA0KGOG HealthcareBVAB 2,3 (BACTERIAL VAGINOSIS ASSOCIATED BACTERIA 2, 3); MOBILUNCUS SPPNot detectedNOMS HealthcareCANDIDA ALBICANS, PARAPSILOSIS, FWGEPMDPJN1QSHF HealthcareCANDIDA ALBICANS, PARAPSILOSIS, TROPICALISNot detectedNOMS HealthcareCANDIDA GLABRATA0 NOMS HealthcareCANDIDA GLABRATANot detectedNOMS HealthcareCANDIDA BTMTQM6WSYN HealthcareCANDIDA KRUSEINot detectedNOMS HealthcareCHLAMYDIA PZPBEKKHFZG9ACFF HealthcareCHLAMYDIA TRACHOMATISNot detectedNOMS HealthcareGARDNERELLA VAGINALIS 31.049AbnormalNOMS HealthcareGARDNERELLA VAGINALISDetectedAbnormalNOMS HealthcareInterpretation and review of laboratory resultsAbnormalNOMS Healthcare MEGASPHAERA (TYPES 1, 2)0NOMS HealthcareMEGASPHAERA (TYPES 1, 2)Not detectedNOMS HealthcareMYCOPLASMA AEJYJETOEB0QXSG HealthcareMYCOPLASMA GENITALIUMNot detected NOMS HealthcareNEISSERIA OQYUITSBYUN3FAER HealthcareNEISSERIA GONORRHOEAENot detectedNOMS HealthcareTET B, TET M23.864AbnormalNOMS HealthcareTET B, TET M DetectedAbnormalNOMS HealthcareTRICHOMONAS CEJFIQCOO6PFVM HealthcareTRICHOMONAS VAGINALISNot detectedNOMS HealthcareNOMS HealthcareUrinalysis macro (dipstick) panel (U)on 73-02-2455Msbapvzxx, UANegativeNegative - 4(70) +++ mg/dLNOMS HealthcareBlood, UAPositiveNegative - 50 Lincoln/mcLNOMS HealthcareClarity, UAClear NOMS HealthcareColor, UAYellowNOMS HealthcareGlucose, UANegativeNegative - 2000(110) ++++ mg/dLNOMS HealthcareInterpretation and review of laboratory resultsAbnormalNOMS HealthcareKetones, UANegativeNegative - 160(16) ++++ mg/dL NOMS HealthcareLeukocytes, UANegativeNegative - 500+++ Skyler/mcLNOMS Healthcare Nitrite, UANegativeNegative - PositiveNOMS HealthcarepH, UA65 - 9N[facility]S Healthcare Protein, UANegativeNegative - 2000(20) ++++ mg/dLNOMS HealthcareSpec Grav, UA 1.0151 - 1.03NOMS HealthcareUrobilinogen, UA1.00.2 - 12 mg/dLOzarks Medical Center HealthcareALL THYROID STIM HORMONEon 31-44-6624HMR Qn2.104 m[IU]/LNOMS HealthcareCLINISYNCNOMS HealthcareBOX TESTon 38-53-1166LTL TEST SENT [facility]ESS[facility] HusoixnbyhPTO0VKBEVWKOX SqknpwpgdpZEC34/5/25NOCrossroads Regional Medical CenterCLINISYNBROOKS H[facility] HealthcareHCG ( test) Ql (U)on 69-04-2688Upmdzpocqrotim and review of laboratory resultsAbFresenius Medical Care at Carelink of JacksonPreg Test, UrPositiveNegativeNOSaint Joseph Hospital of Kirkwood HealthcareUS OB TRANSVAGINALon 88-45-2394JH OB TRANSVAGINAL FINDINGS: A single intrauterine gestational [...] No pelvic fluid or adnexal mass present. Cervixclosed. Right ovarian 2.5 x 2.8 cm corpus luteum cyst. IMPRESSION: Findings consistent with a live intrauterine gestation, current sonographic age of 6 weeks and 3 days resulting in an estimated date of delivery of December 26, 2025. TRANSCRIBED BY: ELECTRONICALLY SIGNED BY: Jerri Roger AvailableComment on above:Order Comment: US OB TRANSVAGINAL No LMP recorded.Urinalysis macro (dipstick) panel (U)on 60-67-1660Kmmehzrrp, UA NegativeNegative - 4(70) +++ mg/dLNOMS HealthcareBlood, UANegativeNegative - 50 Lincoln/mcLNOMS HealthcareClarity, UAClearNOMS HealthcareColor, UAYellowNOMS HealthcareGlucose, UANegativeNegative - 2000(110) ++++ mg/dLNOMS Healthcare Interpretation and review of laboratory resultsAbRockville General Hospital HealthcareKetones, UANegativeNegative - 160(16) ++++ mg/dLNOMS HealthcareLeukocytes, UANegative Negative - 500+++ Skyler/mcLNOMS HealthcareNitrite, UANegativeNegative - Positive NOMS HealthcarepH, UA75 - 9NOMS HealthcareProtein, UATraceNegative - 2000(20) ++++ mg/dLNOMS HealthcareSpec Grav, UA1.0251 - 1.03NOMS HealthcareUrobilinogen, UA1.00.2 - 12 mg/dLNOMS HealthcareNOMS HealthcarePOCT NURSING URINE MACROSCOPIC UAon 37-91-1522QQHFHHYXG NURNegativeNormalNegativeEast [facility] Comment on above:Performed By: #### NUM #### [facility] ([address] [address] VIRBLOOD/HGB NURTraceAbnormalNegativeEast Liverpool City HospitalComment on above:Performed By: #### NUM #### [facility] ([address] [address] VIRGLUCOSE NURNegativeNormneNegRiverside Methodist Hospital Comment on above:Performed By: #### NUM #### [facility] ([address] [address] VIRKETONES NURNegativeNormalNegRiverside Methodist Hospital Comment on above:Performed By: #### NUM #### [facility] ([address] [address] VIRLEUKOCYTE ESTERASE NURNegativeNormalNegativeEast Liverpool City HospitalComment on above:Performed By: #### NUM #### [facility] ([address] [address] VIRNITRITE NURNegativeNormalNegativeEast [facility] Hospital Comment on above:Performed By: #### NUM #### [facility] ([address] [address] VIRPH NUR6.1Jsflqj6.0, 6.0, 6.5, 7.0, 7.5, 8.0, 8.5, 5.5 [facility] HospitalComment on above:Performed By: #### NUM #### [facility] ([facility]) [address] [place] [address] VIRPROTEIN TWI452 mg/dLAbnormalNegativeEast Liverpool City HospitalComment on above:Performed By: #### NUM #### [facility] ([facility]) [address] [place] [address]. [place] [address] VIRSPECIFIC GRAVITY MOLLY>=1.311Lxrnevhn8.010, 1.015, 1.020, 1.025ProEl Campo Memorial HospitalComment on above:Performed By: #### NUM #### [facility] ([address] [address] VIRUROBILINOGEN NUR0.2 E.U./dLNormalSalem Regional Medical Center on above:Performed By: #### NUM #### [facility] ([address] [address] VIRPOCT , URINE (NUCG)on 73-30-8018Yiga HCG ( test) Ql (U)PositiveAbnormalNegative, IndeterminateProEl Campo Memorial HospitalComment on above:Performed By: #### NUCG #### [facility] ([address] [address] VIRALL THYROID STIM HORMONEon 44-16-3267Fhdpeomqseonic and review of laboratory resultsAbAspirus Ontonagon Hospital Qn5.935 m[IU]/[facility] HospitalCLINISYNPrisma Health Baptist Easley HospitalHCG ( test) Ql (U)on 01-17-2025 Interpretation and review of laboratory resultsNoLancaster General HospitalPre Test, UrNegativeNegativeLake Norman Regional Medical CenterLon 01-17-2025L Specimen: [id number] Received: 01/18/25 Status: GHAZAL Jerome Num: [id number] Spec Type: Surgical Subm Dr: Jefferson Howard Tissues: A Endocervix - Biopsy (ENDOCERVIX) Endocervix - Curettings Procedures: HE/2, Gross/Micro L4 Age/ Patient Sex Location Account Attending Physician Jes Romero / LABELL [id number] Jefferson Howard SPEC NUM: [id number] RECD: 01/18/25 STATUS: GHAZAL JEROME NUM: [id number] JUDIT: 01/17/25-[address]: Jefferson Howard ENTERED: 01/18/25-[address]: Nenita Carter SPEC TYPE: Surgical DEPT: LUCAS MAR ENTERED BY: [id number] RECV BY: [id number] ORDERED: HE/2, Gross/Micro L4 ORDERED: HE/2, Gross/Micro [...] submitted in a single cassette. (1, ns, [id number]) Microscopic Description Microscopic examination is performed Specimen: [id number] Received: 01/18/25 Status: GHAZAL Parminder Num: [id number] Spec Type: Surgical Subm Dr: Jefferson Howard Tissues: A Endocervix - Biopsy (ENDOCERVIX) Endocervix - Curettings Procedures: TESSIEJuanis, Gross/Micro L4 Patient: Jes Romero [id number] (Continued) Specimen: [id number] Received: 01/18/25 (Continued) Signed (signature on file) Lizabeth Diggs MD 01/19/25 1541 Specimen: [id number] Received: 01/18/25 Status: GHAZAL Jerome Num: [id number] Spec Type: Surgical Subm Dr: Jefferson Howard Tissues: A Endocervix - Biopsy (ENDOCERVIX) Endocervix - Curettings Procedures: TESSIE/Juanis, Day/Elvin L4 Patient: Jes Romero [id number] (Continued) Specimen: Received: 01/18/25 (Continued) CPT Codes 78221 Specimen: [id number] Received: 01/18/25 Status: GHAZAL Jerome Num: [id number] Spec Type: Surgical Subm Dr: Jefferson Howard Tissues: A Endocervix - Biopsy (ENDOCERVIX) Endocervix - Curettings Procedures: HE/Juanis Gross/Elvin L4 Patient: Jes Romero [id number] (Continued) Signed (signature on file) Brian-Shaheen Diggs MD 01/19/[address] [place] [address] Physician GroupUrinalysis macro (dipstick) panel (U)on 69-89-9049Szuxabdra, UANegativeNegative - 4(70) +++ mg/dLNOMS HealthcareBlood, UANegativeNegative - 50 Lincoln/mcLNOMS HealthcareClarity, UAClearNOMS Healthcare Color, UAYellowNOMS HealthcareGlucose, UANegativeNegative - 2000(110) ++++ mg/dL NOMS HealthcareInterpretation and review of laboratory resultsAbnormalNOMS HealthcareKetones, UAPositiveNegative - 160(16) ++++ mg/dLNOMS HealthcareComment on above:traceLeukocytes, UANegativeNegative - 500+++ Skyler/mcLNOMS Healthcare Nitrite, UANegativeNegative - PositiveNOMS HealthcarepH, UA5.55 - 9NOMS HealthcareProtein, UAPositiveNegative - 2000(20) ++++ mg/dLNOMS Healthcare Comment on above:100Spec Grav, UA1.031 - 1.03NOMS HealthcareUrobilinogen, UA0.2 0.2 - 12 mg/dLNOMS HealthcareNOMS HealthcareUS PELVIC COMPLETE W/ TVon 61-58-6807VP PELVIC COMPLETE W/ TVEXAM: US PELVIC COMPLETE W/ TV HISTORY: Right lower quadrant pain x 2 weeks. COMPARISON: Pelvic ultrasound 11/30/2024. TECHNIQUE: Two-dimensional transabdominal grayscale ultrasound imaging of the pelvis was performed.Color flow Doppler imaging of the ovaries was [...] II, MD, PHD at 13-Jan-2025 11:16:36 PM [facility] TeleradiologyNormalNot AvailableComment on above:Order Comment: US PELVIS-TRANSVAG IF INDICATED No LMP recorded.Urine Cultureon 02-49-0195Ijelzpdh identified Cx Nom (U)15,000 colonies/ml mixed bacterial skin contaminants 2 Days PERFORMED BY: [facility] [address] [place] [address] PATHOLOGIST SOFTWARE DEVELOPMENT ADVISOR BRUCE CALI M.D.NormalThe Novant Health/Nhrmc Physician GroupComment on above: Performed By: #### CUU #### [facility] [address] [place] [address] USAUrine cultureOrdered By: Krishna Saxena on 01-03-2025 Bacteria identified Cx Nom (U)Urine cultureLancaster Municipal Hospital IGP,APTIMA HPV,AGE GDLNon 57-23-0857LCT GDLN ACOG TESTINGNote.[facility] Healthcare Comment on above:TESTS RESULT FLAG UNITS REF RANGE LAB Clinician Provided Cytology Information Source.............Cervix;Endocervix No. of containers..01 ThinPrep Vial Age Algo ACOG Mela... 21- 01 FLAG LEGEND: L-Low Normal,H-High Normal,LL-Alert Low,HH-Alert High <-Panic Low,>-Panic High,A-Abnormal,AA-Critical Abnormal Performed at: 01 =G [facility] [address] Aleida Colon MD, IGP, RFX APTIMA HPV ASCUNoteAbnormal.NOMS HealthcareComment on above:TESTS RESULT FLAG UNITS REF RANGE LAB DIAGNOSIS: [A] 02 EPITHELIAL CELL ABNORMALITY. LOW GRADE SQUAMOUS INTRAEPITHELIAL LESION (LSIL). Specimen adequacy: 02 Satisfactory for evaluation. Endocervical and/or squamous metaplastic cells (endocervical component) are present. Performed by: 02 Cynthia Smith, Scaffold Worker (ASCP) Electronically si... 02 Johanne Desir MD, [...] Low,>-Panic High,A-Abnormal,AA-Critical Abnormal Performed at: 02 [address] [facility] [address] [address] Aleida Colon MD, Performed at: =G - [facility] [address] [id number] Medicine Assistant: Aleida Colon MD, Phone: [phone] Performed at: [address] [id number] Medicine Assistant: Aleida Colon MD, Phone: [phone] Interpretation and review of laboratory resultsAbFresenius Medical Care at [facility] BRUSH-SPATULA CERVIX ENDOCERVIX [facility] HospitalInsertion/Removal of Contraceptive Capsuleon 12-02-2024 Pilar Collins LPN 12/02/2024 3:17 [...] closed with steri-strips and pressure bandage applied: [facility] HospitalUS PELVIC COMPLETE W/ TVon 77-80-0705BQ PELVIC COMPLETE W/ TVEXAM: US PELVIC COMPLETE W/ TV HISTORY: Right ovarian cyst, right lower quadrant pain. COMPARISON: Abdomen CT 11/30/2024 - Report only. TECHNIQUE: Two-dimensional transabdominal grayscale ultrasound imaging of the pelvis was performed.Color flow Doppler imaging of the ovaries was [...] II, MD, PHD at 03-Dec-2024 08:37:11 AM [facility] TeleradiologyNormalNot AvailableComment on above:Order Comment: US PELVIS-TRANSVAG IF INDICATED No LMP recorded.ALL CBC WITH AUTO DIFFon 24-99-6871JSERBHAGW ABSOLUTE AUTO0.1 NOMBothwell Regional Health CenterBasophils/100 WBC (Bld)0.6 %0.2 - 2.0 %[facility] Eosinophils/100 WBC (Bld)2.6 %0.9 - 7.0 %[facility] HospitalErythrocyte distribution width (RBC) [Ratio]13.2 %11.0 - 15.0 %[facility] HospitalHematocrit (Bld) [Volume fraction]38.2 %36.0 - 48.0 %[facility] HospitalHemoglobin (Bld) [Mass/Vol]12.4 g/dL 12.0 - 16.0 g/dLBarnes-Jewish West County HospitalIMMATURE GRANULOCYTES ABS AUTO0.04HighBarnes-Jewish West County HospitalImmature granulocytes/100 WBC (Bld)0.4 %0.0 - 0.5 %[facility] Interpretation and review of laboratory resultsAbnormalNOCrossroads Regional Medical Center LYMPHOCYTES ABSOLUTE AUTO3.4NOCrossroads Regional Medical CenterLymphocytes/100 WBC (Bld)34.8 %20.5 - 60.0 %[facility] HospitalH (RBC) [Entitic mass]28.3 pg26.7 - 34.0 pgSt. Louis Children's HospitalHC (RBC) [Mass/Vol]32.5 g/dL29.9 - 35.2 g/dLSt. Louis Children's HospitalV (RBC) [Entitic vol]87.2 fL81.0 - 99.0 fLBarnes-Jewish West County HospitalMONOCYTES ABSOLUTE AUTO0.7NOMS HealthcareMonocytes/100 WBC (Bld)7.2 %1.7 - 12.0 %[facility] HospitalNEUTROPHILS ABSOLUTE AUTO5.4NOTX HealthcareNeutrophils/100 WBC (Bld)54.4 %43.0 - 75.0 %NOMS HealthcarePlatelet mean volume (Bld) [Entitic vol]10 fL9.5 - 13.5 fLNOMS HealthcareTBH EO #0.3NOMS HealthcareTBH [id number] HealthcareTBH RBC4.38NOMS HealthcareTBH WBC9.9NOMS HealthcareCLINISYNCNOMS HealthcareHCG ( test) IA.rapid Ql (U)Ordered By: Mir Silva on 80-69-3013FQW ( test) Ql (U)Urine human chorionic gonadotropin (hCG) detection by immunoassayLancaster Municipal HospitalHCG,Urineon 35-18-1495Msnw HCG ( test) Ql (U) NegativeNoSwain Community Hospital Physician GroupComment on above:Result Comment: PERFORMED BY: [place] [address] PATHOLOGIST SOFTWARE DEVELOPMENT ADVISOR BRUCE CALI M.D.Performed By: #### UHCG #### [place] [address] USALon 09-07-2024 Specimen: [id number] Received: 09/07/24 Status: GHAZAL Jerome Num: [id number] Spec Type: Surgical Subm Dr: Mir Silva MD Tissues: A Small Intestine - Biopsy/Polyp (SMALL BOWEL BX R/O CELIAC) Procedures: HE/2, Gross/Micro L4 Age/ Patient Sex Location Account Attending Physician RomeroJes trujillo / [id number] Mir Silva MD SPEC NUM: [id number] RECD: 09/07/24 STATUS: GHAZAL JEROME NUM: [id number] JUDIT: 09/07/[address] [facility] [address]: Mir Silva MD ENTERED: 09/07/24 [facility] DR: ARNULFO TYPE: Surgical DEPT: S ENTERED BY: [id number] RECV BY: [id number] ORDERED: HE/2, Gross/Micro L4 ORDERED: HE/2, Gross/Micro [...] submitted in a single cassette. (1, ns, [id number]) Microscopic Description Microscopic examination is performed. CPT Codes 56057 Specimen: [id number] Received: 09/07/24-1610 Status: GHAZAL Londononur Num: [id number] Spec Type: Surgical Subm Dr: Mir Silva MD Tissues: A Small Intestine - Biopsy/Polyp (SMALL BOWEL BX R/O CELIAC) Procedures: HE/Juanis, Gross/Micro L4 Patient: Jes Romero [id number] (Continued) Signed (signature on file) Roberth Martinez MD 09/08/24 1012Normal The [facility]rmc Physician GroupMIDDLESBORO AR[facility] AND AUTO DIFFon 75-89-5723WNCLGUPR BASOPHIL0.0 X10E9/LNormal0.0-0.2ProMedica Kindred HospitalComment on above:Performed By: #### CMP, CBCA #### [facility] ([id number]) [address] [place] [address]IYYSVDLF NEUTROPHIL3.8 X10E9/LNormal1.5-6.6East [facility] City HospitalComment on above:Performed By: #### CMP, CBCA #### [facility] ([id number]) [address] [place] [address]Vtjipaood/100 WBC (Bld)0.3 %NormalEast Liverpool City Hospital Comment on above:Performed By: #### CMP, CBCA #### [facility] ([id number]) [address] [place] [address]Sxnwnnvouxj (Bld) [#/Vol]0.0 10*3/uLNormal0.0-0.4East [facility] City HospitalComment on above:Performed By: #### CMP, CBCA #### [facility] ([id number]) [address] [place] [address]Dqgekkebsde/100 WBC (Bld)0.8 %[facility] Comment on above:Performed By: #### CMP, CBCA #### [facility] ([id number]) [address] [place] [address]Qcnfadtxtwx distribution width (RBC) [Ratio]14.5 %Normal 11.5-15.0[facility] City HospitalComment on above:Performed By: #### CMP, CBCA #### [facility] ([id number]) [address] [place] [address]Hxojlvceik (Bld) [Volume fraction]38.8 %Kfkhfc37-94FovCfhpkqEl Campo Memorial HospitalComment on above:Performed By: #### CMP, CBCA #### [facility] ([id number]) [address] [place] [address]Nqvhxkuing (Bld) [Mass/Vol]13.0 g/uYNdqtmd99.7-15.5PBarnesville HospitalComment on above:Performed By: #### CMP, CBCA #### [facility] ([id number]) [address] [place] [address]Qnxhtmrrkti (Bld) [#/Vol]0.5 10*3/uLLow1.0-3.5PBarnesville HospitalComment on above:Performed By: #### CMP, CBCA #### [facility] ([id number]) [address] [place] [address]Nruoykjzmbe/100 WBC (Bld)11.5 %NormalProEl Campo Memorial Hospital Comment on above:Performed By: #### CMP, CBCA #### [facility] ([id number]) [address] [place] [address]UHY (RBC) [Entitic mass]28.6 fmCulbac22-39UhbNqypecEast Liverpool City HospitalComment on above:Performed By: #### CMP, CBCA #### [facility] ([id number]) [address] [place] [address]DRCC (RBC) [Mass/Vol]33.5 g/qAHwlijx56-77EwpVxwsszEl Campo Memorial HospitalComment on above:Performed By: #### CMP, CBCA #### [facility] ([id number]) [address] [place] [address]GHA (RBC) [Entitic vol]85 vFKrgwlh29-140IxiSvrkjkEast Liverpool City HospitalComment on above:Performed By: #### CMP, CBCA #### [facility] ([id number]) [address] [place] [address]Ihosbxfxn (Bld) [#/Vol]0.2 10*3/uLNormal0-0.9[facility] City HospitalComment on above:Performed By: #### CMP, CBCA #### [facility] ([id number]) [address] [place] [address]Vqowkcdqc/100 WBC (Bld)5.1 %[facility] Comment on above:Performed By: #### CMP, CBCA #### [facility] ([id number]) [address] [place] [address]Zspvbufxtyi/100 WBC (Bld)82.3 %[facility] Comment on above:Performed By: #### CMP, CBCA #### [facility] ([id number]) [address] [place] [address]Zzmpqyjx mean volume (Bld) [Entitic vol]8.6 fLNormal7-12 [facility] Tri[facility] Medical CenteredicAlta Bates Summit Medical CenterComment on above:Performed By: #### CMP, CBCA #### [facility] ([id number]) [address] [place] [address]Jhwqrwrrc (Bld) [#/Vol]225 10*3/oJMlintg126-725VhxYoxyreEast Liverpool City HospitalComment on above:Performed By: #### CMP, CBCA #### [facility] ([id number]) [address] [place] [address]HQK COUNT4.55 X10E12/LNormal3.80-5.20[facility] Comment on above:Performed By: #### CMP, CBCA #### [facility] ([id number]) [address] [place] [address]WQM (Bld) [#/Vol]4.6 10*3/uLNormal4.0-11.0[facility] City HospitalComment on above:Performed By: #### CMP, CBCA #### [facility] ([id number]) [address] [place] [address], [place] [address]YZBPNIDDXRBYL METABOLIC PANELon 64-96-3902Szhnjfm [Mass/Vol]3.6 g/dLNormal3.2-5.3PBarnesville HospitalComment on above:Performed By: #### CMP, CBCA #### [facility] ([id number]) [address] [place] [address], [place] [address]HED [Catalytic activity/Vol]65 U/MEbnsxk34-089LajCyootiEl Campo Memorial HospitalComment on above:Performed By: #### CMP, CBCA #### [facility] ([id number]) [address] [place] [address], [place] [address]CGW [Catalytic activity/Vol]29 U/LNormal0-31PBarnesville HospitalComment on above:Performed By: #### CMP, CBCA #### [facility] ([id number]) [address] [place] [address], [place] [address]Orzox gap [Moles/Vol]10 mmol/LNormal5-15ProEl Campo Memorial HospitalComment on above:Performed By: #### CMP, CBCA #### [facility] ([id number]) [address] [place] [address], [place] [address]UVL [Catalytic activity/Vol]36 U/LNormal0-41ProEl Campo Memorial HospitalComment on above:Performed By: #### CMP, CBCA #### [facility] ([id number]) [address] [place] [address], [place] [address]Ijuasifoq [Mass/Vol]0.9 mg/dLNormal0.3-1.2PBarnesville HospitalComment on above:Performed By: #### CMP, CBCA #### [facility] ([id number]) [address] [place] [address], [place] [address]Yousvav [Mass/Vol]8.3 mg/dLLow8.5-10.5ProMedica East Berlin HospitalComment on above:Performed By: #### MARLENE, CBCA #### [facility] ([id number]) [address] [place] [address], [place] [address]Tzddzwln [Moles/Vol]103 mmol/JAhmjed58-306TiiBiomnnEast Liverpool City HospitalComment on above:Performed By: #### MARLENE, CBCA #### [facility] ([id number]) [address] [place] [address], [place] [address]EK0 [Moles/Vol]22 mmol/KJtlool49-81HhmBxugidBarnesville Hospital Comment on above:Performed By: #### MARLENE CBCA #### [facility] ([id number]) [address] [place] [address], [place] [address]Zjlghkwuvw [Mass/Vol]0.72 mg/dLNormal0.40-1.00[facility] City HospitalComment on above:Result Comment: METHOD TRACEABLE TO IDMS STANDARD Performed By: #### MARLENE CBCA #### [facility] ([id number]) [address] [place] [address] [place] [address]hGDK (CKD-EPI) NON-RACE DEPENDENT>90Normal>59East [facility] City HospitalComment on above:Result Comment: Reported eGFR is based on the CKD-EPI 2021 equation that does not use a race coefficient.Performed By: #### MARLENE, DIANEA #### [facility] ([id number]) [address] [place] [address], [place] [address]Hlufnno [Mass/Vol]103 mg/iJLybj33-59NvbHtmybyEast Liverpool City Hospital Comment on above:Performed By: #### MARLENE, CBCA #### [facility] ([id number]) [address] [place] [address], [place] [address]Swnofotpg [Moles/Vol]3.5 mmol/LNormal3.5-5.0[facility] HospitalComment on above:Performed By: #### MARLENE, CBCA #### [facility] ([id number]) [address] [place] [address] 40771Pxqnmgf [Mass/Vol]6.9 g/dLNormal6.0-8.0ProEl Campo Memorial HospitalComment on above:Performed By: #### CMP, CBCA #### [facility] ([id number]) [address] [place] [address]32[address]Bxtclk [Moles/Vol]135 mmol/JHlddsd668-126SuvNajucc Fremont HospitalComment on above:Performed By: #### CMP, CBCA #### [facility] ([id number]) [address] [place] [address] 59163Ergm nitrogen [Mass/Vol]16 mg/dLNormal5-23ProEl Campo Memorial HospitalComment on above:Performed By: #### CMP, CBCA #### [facility] ([id number]) [address] [place] [address] 67076TC ABDOMEN AND PELVIS W CONTon 03-62-2367DN ABDOMEN AND PELVIS W CONTCT ABDOMEN AND PELVIS W CONT Study: CT [...] by Huang Burleson MD on 08/28/2024 8:12 PMNormalProEl Campo Memorial HospitalHCG ( test) Ql (U)on 93-35-4377Tehm HCG ( test) Ql (U) NegativeNormalNEGProEl Campo Memorial HospitalComment on above:Performed By: #### 2106-3 #### [facility] ([id number]) [address] [place] [address] 47416NBB MACROSCOPIC NURon 41-34-0173GNXUIMIEU NURSmallAbnormalNEG [facility] Kindred HospitalComment on above:Performed By: #### NUM #### [facility] [facility] ([id number]) [address] [place] [address] 55965WKFVF/HGB NURNegativeNormalNEGProEl Campo Memorial HospitalComment on above:Performed By: #### NUM #### [facility] ([id number]) [address] [place] [address] 19834FMRPAKQ NURNegativeNormalNEGProEl Campo Memorial HospitalComment on above:Performed By: #### NUM #### [facility] ([id number]) [address] [place] [address] 26116UBAKNVF NURNegativeNormalNEGProEl Campo Memorial HospitalComment on above:Performed By: #### NUM #### [facility] ([id number]) [address] [place] [address] 95813WNNZIYLYV ESTERASE NURNegativeNormalNEGProEl Campo Memorial HospitalComment on above:Performed By: #### NUM #### [facility] ([id number]) [address] [place] [address] 61512ZNRJQEE NURNegativeNormalNEGProEl Campo Memorial HospitalComment on above:Performed By: #### NUM #### [facility] ([id number]) [address] [place] [address] [id number] NUR5.9Odlhiq1.0-8.5PBarnesville HospitalComment on above:Performed By: #### NUM #### [facility] ([id number]) [address] [place] [address] 13555BCECFKM MOLLY>=300AbnormalNEGProEl Campo Memorial HospitalComment on above:Performed By: #### NUM #### [facility] ([id number]) [address] [place] [address] 95693SXWHHOQW GRAVITY MOLLY>=1.645Rqmefz4.003-1.035ProEl Campo Memorial HospitalComment on above:Performed By: #### NUM #### [facility] ([id number]) [address] [place] [address] 09415WLNRXEQSPSOW NUR0.2 eu/dLNormal<1.1PBarnesville Hospital Comment on above:Performed By: #### NUM #### [facility] ([id number]) [address] [place] [address] [id number] TRICHOMONAS/WET PREPon 76-44-0861VFJ PREP TRIC BV CYDNEY Wet Prep Tric BV Cydney WP.BACT Bacteria^Bacteria NOMS HealthcareWET PREP TRIC BV CANDIDAWP.CLUE Clue Cells^Clue CellsNOMS HealthcareWET PREP TRIC BV CANDIDAWP.JEANNETTE Fungal Elements^Fungal ElementsNOMS HealthcareWET PREP TRIC BV CANDIDAWP.RBC RBC^RBCNOMS HealthcareWET PREP TRIC BV CANDIDAWP.TRICH Trichomonas^TrichomonasNOMS HealthcareWET PREP TRIC BV CYDNEY WP.WBC WBC^WBCNOMS HealthcareCLINISYNCNOMS HealthcareNo Panel Informationon 86-47-4721SNM PREP TRIC BV CANDIDAF Few^FewNOMS HealthcareWET PREP TRIC BV CANDIDAN None Seen^None SeenNOMS HealthcareXR LUMBAR SPINE 2 OR 3Von 06-03-[address] [address] XRay Report Signed Patient: JES ROMERO MR#: [id number] : 2000 Acct:[id number] Age/Sex: 23 / F ADM Date: 06/01/24 Loc: [facility] Attending Dr: Manuel Noel M.D. Ordering Physician: Manuel Noel M.D. Date of Service: 06/01/24 Procedure(s): XR lumbar spine 2-3V Accession Number(s): [id number] cc: Manuel Noel M.D. [place] [id number] Patient Name: JES ROMERO MRN: [id number] date: 2000 Sex: F Assigned Patient Location: [facility] Current Patient Location: Accession/Order Number: [id number] Exam Date: 06/01/2024 14:19 Report Date: 06/03/2024 [...] or appreciable degenerative changes. Electronically authenticated by: MYLENE SULLIVAN Date: 06/03/2024 13:10 Dictated By: Mylene Sullivan M.D. Signed By: 06/03/24 1313 DD/ 1310 TD/TT: Tray Room Worker:YOUNGadiology, Radiologist, - 06/03/2024 The [place] [id number] XRay Report Signed Patient: JES ROMERO MR#: [id number] : 2000 Acct:[id number] Age/Sex: 23 / F ADM Date: 06/01/24 Loc: RAD Attending Dr: Manuel Noel M.D. Ordering Physician: Manuel Noel M.D. Date of Service: 06/01/24 Procedure(s): XR lumbar spine 2-3V Accession Number(s): [id number] cc: Manuel Noel M.D. [place] [id number] Patient Name: JES ROMERO MRN: [id number] date: 2000 Sex: F Assigned Patient Location: [facility] Current Patient Location: Accession/Order Number: [id number] Exam Date: 06/01/2024 14:19 Report Date: 06/03/2024 [...] or appreciable degenerative changes. Electronically authenticated by: MYLENE SULLIVAN Date: 06/03/2024 13:10 Dictated By: Mylene Sullivan M.D. Signed By: 06/03/24 1313 DD/ 1310 TD/TT: Tray Room Worker: NOMS HealthcareRadiology Study observation (narrative)NOMS HealthcareXR LUMBAR SPINE 2 OR 3VOrdered By: Radiologist Radiology on 73-95-6894R[facility] Work Phone: PRBC LEUKOREDUCEDon 18-32-0242TGO and Rh group Nom (Bld)Cross Match Result Compatible Unit Blood Type O Pos Unit Number [id number] Status Information Transfused Product ID Red Blood Cells Product Code [id number] Cross Match Result Compatible Unit Blood Type O Pos Unit Number [id number] Status Information Transfused Product ID Red Blood Cells Product Code [id number] ClinicComment on above:Performed By: #### PRBC ####[facility] Bqfdzkkage[address] [place], [place] [address]Dr. Benoit DiggsCBC AUTO DIFFon 25-56-5825RZNL #0.1 103/ulNormal0.0-0.1The Parkview HealthComment on above:Performed By: #### CBC ####[facility] Ggykvyrfnr[address] [place], [place] [address]Dr.Benoit ChangBasophils/100 WBC (Bld)1.2 %Normal0.2-2.0The [place] on above:Performed By: #### CBC ####[facility] Qoioaetaem[address] [place], [place] [address]Dr.Karylan ChangEO #0.4 103/ulNormal0.0-0.7The [facility]view HealthComment on above:Performed By: #### CBC ####[facility] Fejhvgupzr[address] [place], [place] [address]Dr.Benoit ChangEosinophils/100 WBC (Bld)4.5 %Normal 0.9-7.0The [place] on above:Performed By: #### CBC ####[facility] Bvrgdmsaiv[address] [place], [place] [address]Dr.Benoit Diggs Erythrocyte distribution width (RBC) [Ratio]16.6 %Critically high11.0-15.0The [place] on above:Performed By: #### CBC ####[facility] Hscyiovatr[address] [place], [place] [address]Dr.Benoit DiggsHematocrit (Bld) [Volume fraction]40.3 %Rmeqdq21.0-48.0The [place] on above:Performed By: #### CBC ####[facility] Mbnsoiihkl[address] [place], [place] [address]Dr.Benoit ChangHemoglobin (Bld) [Mass/Vol]12.6 g/dL Tufevc27.0-16.0The Emma HospitalComment on above:Performed By: #### CBC ####[facility] [address] [place] [address]Dr. Benoit DiggsIG #0.04 10e3/ulCritically high0.00-0.03The [facility]view HealthComment on above:Performed By: #### CBC ####[facility] Fulngoztlg[address] [place], [place] [address]Dr.Karyaurora DontaeIG %0.5 %Normal0.0-0.5The [facility]view HealthComment on above:Performed By: #### CBC ####[facility] Ptstxdaslu65[address] [place], [place] [address]Dr.Benoit DiggsLYMPH #3.0 103/ulNormal1.2-3.8The [facility]view HealthComment on above:Performed By: #### CBC ####[facility] Fzjnkzcmtv[address] [place], [place] [address]Dr. Benoit DiggsLymphocytes/100 WBC (Bld)36.0 %Cvuvdh55.5-60.0The [facility] Comment on above:Performed By: #### CBC ####[facility] Wuncw[address] [place], [place] [address]Dr.Benoit DiggsMANUAL DIFF REQNONormalThe Parkview HealthComment on above:Performed By: #### CBC ####[facility] Arusyjbevf[address] [place], [place] [address]Dr.Benoit DiggsH (RBC) [Entitic mass]25.3 pgCritically low26.7-34.0The [facility]view HealthComment on above:Performed By: #### CBC ####[facility] Puxrqzxuav[address] [place], [place] [address]Dr.Benoit DiggsMCHC (RBC) [Mass/Vol]31.3 g/dLNormal 29.9-35.2The [facility]view HealthComment on above:Performed By: #### CBC ####[facility] Idugfxiwve[address] [place], [place] [address]Dr. Benoit DiggsV (RBC) [Entitic vol]80.9 fLCritically low81.0-99.0The [facility] HealthComment on above:Performed By: #### CBC ####[facility] [address] [place] [address]Dr.Benoit DiggsMONO #0.4 103/ulNormal0.3-0.8The [facility] HealthComment on above:Performed By: #### CBC ####[facility] Mkrbctjiob[address] [place], [place] [address]Dr. Benoit DiggsMonocytes/100 WBC (Bld)4.8 %Normal1.7-12.0The [facility] Comment on above:Performed By: #### CBC ####[facility] Xbrcwambsr[address] [place], [place] [address]Dr.Benoit DiggsNEUT #4.4 103/ulNormal1.4-6.5 The [facility]view HealthComment on above:Performed By: #### CBC ####[facility] Cybnopszpg[address] [place], [place] [address]Dr.Benoit Diggs Neutrophils/100 WBC (Bld)53.0 %Frwomi94.0-75.0The [facility] HealthComment on above:Performed By: #### CBC ####[facility] Gloimtwlqn[address] [place], [place] [address]Dr.Benoit DiggsPlatelet mean volume (Bld) [Entitic vol] 10.8 fLNormal9.5-13.5The [facility] HealthComment on above:Performed By: #### CBC ####[facility] Pvipnsjtgq[address] [place], [place] [address]Dr. Benoit IanicETB058 103/xfGrlwlz646-896Syh [facility]view HealthComment on above: Performed By: #### CBC ####[facility] Cpwmhugwjg[address] [place], [place] [address]Dr.Benoit DiggsRBC4.98 106/ulNormal4.20-5.40The [facility] HealthComment on above:Performed By: #### CBC ####[facility] Pcfpwtphnw[address] [place], [place] [address]Dr.Karylan ChangWBC8.3 103/ul Normal4.0-11.0[facility] HospitalComment on above:Performed By: #### CBC ####[facility] [address] [place] [address]Dr. Benoit ChangGLYCOHEMOGLOBIN A1Con 86-84-5122HKM RECOMMENDATIONSEE [facility] Euclid HospitalComment on above:Result Comment: ADA RECOMMENDED LIMIT 4.0 - 6.0 ADA THERAPEUTIC TARGET < 7.0 ACTION SUGGESTED > 7.0Performed By: #### A1C ####[facility] Nsuetjynqh[address] [place], [place] [address]Dr. Benoit ChangGlucose [Mass/Vol]100 mg/dLNoCleveland ClinicComment on above:Performed By: #### A1C ####[facility] Tmsjwewkjt[address] [place], [place] [address]Dr.Benoit JvddgIeB6i (Bld) [Mass fraction]5.1 %Normal 4.5-6.2The [facility]view HealthComment on above:Performed By: #### A1C ####[facility] Wtayftmgth[address] [place], [place] [address]Dr.Benoit ChangLIPID PROFILEon 86-15-6837JUPG-HDL RATIO NORMSEE [facility] Comment on above:Result Comment: 3.3 - 4.4 LOW RISK 4.4 - 7.1 AVERAGE RISK 7.1 - 11.0 MODERATE RISK >11.0 HIGH RISKPerformed By: #### LIVER, LIPID, BMP, TSH ####[facility] Bgdawukvjk[address] [place] [address]Dr. Benoit ChangCholesterol [Mass/Vol]184 mg/dLNormal<=200[facility] Comment on above:Performed By: #### LIVER, LIPID, BMP, TSH ####[facility] Nmtcjhqlvw[address] [place], [place] [address]Dr. Karylan ChangCholesterol in HDL [Mass/Vol]52 mg/kEItxmvw32-78Gvm [facility] HealthComment on above: Performed By: #### LIVER, LIPID, BMP, TSH ####[facility] Fmoeqfswmy[address] [place], [place] [address]Dr. Yilan ChangCholesterol in LDL [Mass/Vol] 114.8 mg/dLNoCleveland ClinicComment on above:Performed By: #### LIVER, LIPID, BMP, TSH ####[facility] Z[address]ukdtvjj[address] [place] [address]Dr. Yilan ChangCholesterol.total/Cholesterol in HDL [Mass ratio]3.5 {ratio}NormalThe [facility]view HealthComment on above:Performed By: #### LIVER, LIPID, BMP, TSH ####[facility] Xehlyjxoil[address] [place] [address]Dr. Yilan ChangHDL NORMAL> or = 60 mg/dl - LOW CARDIOVASCULAR RISK <40 mg/dl - HIGH CARDIOVASCULAR RISKNoCleveland ClinicComment on above: Performed By: #### LIVER, LIPID, BMP, TSH ####[facility] Exwvijhsds[address] [place] [address]Dr. Yilan ChangLDL CALC NORMALSEE BELOW NormalThe [facility]view HealthComment on above:Result Comment: <100 mg/dl OPTIMAL 100 - 129 mg/dl NEAR OR ABOVE OPTIMAL 130 - 159 mg/dl BORDERLINE HIGH 160 - 189 mg/dl HIGH >190 mg/dl VERY HIGHPerformed By: #### LIVER, LIPID, BMP, TSH ####[facility] Cwfftmddna[address] [place] [address]Dr. Karylan ChangTriglyceride [Mass/Vol]86 mg/dLNormal<=150[facility] Comment on above:Performed By: #### LIVER, LIPID, BMP, TSH ####[facility] Vnbhwtyyfh[address] [place] [address]Dr. Yilan ChangVLDL CALC17.2 mg/dLNoCleveland ClinicComment on above:Performed By: #### LIVER, LIPID, BMP, TSH ####[facility] Utzxnufjin[address] [place] [address]Dr. Karylan ChangLIVER PROFILEon 14-28-9448Isvpdsm [Mass/Vol]3.3 g/dL Critically low3.4-5.0The [facility] HealthComment on above:Performed By: #### LIVER, LIPID, BMP, TSH ####[facility] Lkhdlkifvv13[address] [place] [address]Dr. Yilan ChangAlbumin/Globulin [Mass ratio]0.8 {ratio}NormalThe [facility] Clinic Mercy Hospitalment on above:Performed By: #### LIVER, LIPID, BMP, TSH ####[facility] Ccdhhziedn[address] [place] [address]Dr. Yilan ChangALP [Catalytic activity/Vol]110 U/PZitvis75-501Cxw [facility] HealthComment on above:Performed By: #### LIVER, LIPID, BMP, TSH ####[facility] Uhowvgcubt[address] [place], [place] [address]Dr. Yilan ChangALT [Catalytic activity/Vol]25 U/RLrpxtj20-82Acg [facility] Comment on above:Performed By: #### LIVER, LIPID, BMP, TSH ####[facility] Kgluiajply[address] [place], [place] [address]Dr. Yilan ChangAST [Catalytic activity/Vol]20 U/EYeujif32-75Zhi [facility] HealthComment on above:Performed By: #### LIVER, LIPID, BMP, TSH ####[facility] Bkayjmgrdk[address] [place], [place] [address]Dr. Yilan ChangBILI, CONJUGATED0.1 mg/dLNormal0.0-0.2 The [facility]view HealthComment on above:Performed By: #### LIVER, LIPID, BMP, TSH ####[facility] Scbucdxcwd[address] [place], [place] [address]Dr. Yilan ChangBilirubin [Mass/Vol]0.4 mg/dLNormal0.2-1.0[facility] Comment on above:Performed By: #### LIVER, LIPID, BMP, TSH ####[facility] Fsfbwmajuh[address] [place], [place] [address]Dr. Yilan ChangGlobulin (S) [Mass/Vol]3.9 g/dLNormalThe [facility] HealthComment on above:Performed By: #### LIVER, LIPID, BMP, TSH ####[facility] Beqhnjxaoq[address] [place], [place] [address]Dr. Yilan ChangProtein [Mass/Vol]7.2 g/dLNormal6.4-8.2 The [facility] HealthComment on above:Performed By: #### LIVER, LIPID, BMP, TSH ####[facility] Xzdbonrzhl[address] [place] [address]Dr. Benoit DiggsPROF CHEM 8 (BAS METB)on 98-09-2799Jyevh gap [Moles/Vol]13.2 mmol/L NormalThe [facility]view HealthComment on above:Performed By: #### CBC #### [facility] [address] [place] [address] [address] Benoit DiggsCalcium [Mass/Vol]9.2 mg/dLNormal8.5-10.1The [facility] Comment on above:Performed By: #### CBC #### [facility] [address] [place] [address] [address] Benoit DiggsChloride [Moles/Vol]108 mmol/LCritically lhfr87-438Lnm [facility] HealthComment on above:Performed By: #### CBC #### [facility] [address] [place] [address] [address] Benoit DiggsCO2 [Moles/Vol]27.9 mmol/UBamlcw67.0-32.0The [facility] Comment on above:Performed By: #### CBC #### [facility] [address] [place] [address] [address] Benoit DiggsCreatinine [Mass/Vol]0.62 mg/dLNormal0.55-1.02The [facility] HealthComment on above:Performed By: #### CBC #### [facility] [address] [place] [address] [address] Benoit KrausGFR-AF PALAUAN>60Normal>=60The [facility] HealthComment on above:Performed By: #### CBC #### [facility] [address] [place] [address] [address] Benoit KrausGFR-NON AF PALAUAN>60Normal>=60The [facility] HealthComment on above:Performed By: #### CBC #### [facility] [address] [place] [address] [address] Benoit DiggsGlucose [Mass/Vol]92 mg/pRWgytzf71-374Zsg [facility] Comment on above:Performed By: #### CBC #### [facility] [address] [place] [address] Dr. Benoit DiggsPotassium [Moles/Vol]4.1 mmol/LNormal3.5-5.1The [facility] Comment on above:Performed By: #### CBC #### [facility] [address] [place] [address] Dr. Benoit DiggsSodium [Moles/Vol]145 mmol/NHoewbk767-335Pzf [facility] Comment on above:Performed By: #### CBC #### [facility] [address] [place] [address] Dr. Benoit DiggsUrea nitrogen [Mass/Vol]8.0 mg/dLNormal7.0-18.0The [facility] HealthComment on above:Performed By: #### CBC #### [facility] [address] [place] [address] Dr. Benoit Sanchez nitrogen/Creatinine [Mass ratio]12.9 mg/mgNormalThe [facility]view HealthComment on above:Performed By: #### CBC #### [facility] [address] [place] [address] Dr. Benoit Becerra 41-07-0804BPN5.318 uIU/mLNormal0.358-3.740The [facility] HealthComment on above:Performed By: #### CBC #### [facility] [address] [place] [address] Dr. Benoit Oseguera AUTO DIFFon 53-43-1921JQGQ #0.1 103/ulNormal0.0-0.1The [facility] HealthComment on above:Performed By: #### CBC #### [facility] [address] [place] [address] Dr. Benoit DiggsBasophils/100 WBC (Bld)0.7 %Normal0.2-2.0[facility] Comment on above:Performed By: #### CBC #### [facility] [address] [place] [address] [address] Benoit Aleman #0.4 103/ulNormal0.0-0.7The [facility] HealthComment on above: Performed By: #### CBC #### [facility] [address] [place] [address] Dr. Benoit Krausosinophils/100 WBC (Bld)3.8 %Normal0.9-7.0The [facility] Comment on above:Performed By: #### CBC #### [facility] [address] [place] [address] Dr. Benoit Krausrythrocyte distribution width (RBC) [Ratio]15.2 %Critically high 11.0-15.0The [facility]view HealthComment on above:Performed By: #### CBC #### [facility] [address] [place] [address] Dr. Benoit DiggsHematocrit (Bld) [Volume fraction]28.7 %Critically low36.0-48.0 The [facility]view HealthComment on above:Performed By: #### CBC #### [facility] [address] [place] [address] Dr. Benoit DiggsHemoglobin (Bld) [Mass/Vol]9.1 g/dLCritically low12.0-16.0[facility] HospitalComment on above:Performed By: #### CBC #### [facility] [address] [place] [address] Dr. Benoit Amado #0.05 10e3/ulCritically high0.00-0.03The [facility] Comment on above:Performed By: #### CBC #### [facility] [address] [place] [address] Dr. Benoit Amado %0.5 %Normal0.0-0.5The [facility] HealthComment on above: Performed By: #### CBC #### [facility] [address] [place] [address] Dr. Benoit Dennis #3.3 103/ulNormal1.2-3.8The [facility] HealthComment on above:Performed By: #### CBC #### [facility] [address] [place] [address] [address] Benoit Pantojamphocytes/100 WBC (Bld)31.8 %Whasvz56.5-60.0The [facility] HealthComment on above:Performed By: #### CBC #### [facility] [address] [place] [address] Dr. Benoit Real DIFF REQNONormalThe [facility] HospitalComment on above: Performed By: #### CBC #### [facility] [address] [place] [address] Dr. Benoit Lima (RBC) [Entitic mass]25.3 pgCritically low26.7-34.0The [facility] HealthComment on above:Performed By: #### CBC #### [facility] [address] [place] [address] Dr. Benoit Lima (RBC) [Mass/Vol]31.7 g/xJIwpaqa85.9-35.2The [facility] HealthComment on above:Performed By: #### CBC #### [facility] [address] [place] [address] Dr. Benoit Peralta (RBC) [Entitic vol]79.9 fLCritically low81.0-99.0The [facility] HealthComment on above:Performed By: #### CBC #### [facility] [address] [place] [address] Dr. Benoit Castellano #0.7 103/ulNormal0.3-0.8The [facility] HealthComment on above:Performed By: #### CBC #### [facility] [address] [place] [address] Dr. Benoit Funezocytes/100 WBC (Bld)7.2 %Normal1.7-12.0The [facility] Comment on above:Performed By: #### CBC #### [facility] [address] [place] [address] Dr. Benoit Amaya #5.8 103/ulNormal1.4-6.5The [facility] HealthComment on above:Performed By: #### CBC #### [facility] [address] [place] [address] Dr. Benoit Herrerautrophils/100 WBC (Bld)56.0 %Wwzivj50.0-75.0The [facility] HealthComment on above:Performed By: #### CBC #### [facility] [address] [place] [address] Dr. Benoit Pearllet mean volume (Bld) [Entitic vol]10.5 fLNormal9.5-13.5The [facility] HealthComment on above:Performed By: #### CBC #### [facility] [address] [place] [address] Dr. Benoit RaderT152 103/bfNqakxb442-100Gpc [facility] HealthComment on above: Performed By: #### CBC #### [facility] [address] [place] [address] Dr. Benoit DiggsRBC3.59 106/ulCritically low4.20-5.40The [facility] HealthComment on above:Performed By: #### CBC #### [facility] [address] [place] [address] Dr. Benoit DiggsWBC10.3 103/ulNormal4.0-11.0The [facility] HealthComment on above:Performed By: #### CBC #### [facility] [address] [place] [address] Dr. Benoit Oseguera AUTO DIFFon 63-83-6675NXQE #0.0 103/ulNormal0.0-0.1The [facility] HealthComment on above:Performed By: #### CBC #### [facility] [address] [place] [address] Dr. Benoit Taborsophils/100 WBC (Bld)0.4 %Normal0.2-2.0The [facility] on above:Performed By: #### CBC #### [facility] [address] [place] [address] Dr. Benoit Aleman #0.3 103/ulNormal0.0-0.7The [facility] HealthComment on above: Performed By: #### CBC #### [facility] [address] [place] [address] Dr. Benoit Krausosinophils/100 WBC (Bld)3.1 %Normal0.9-7.0The [facility] Comment on above:Performed By: #### CBC #### [facility] [address] [place] [address] Dr. Benoit Krausrythrocyte distribution width (RBC) [Ratio]15.5 %Critically high 11.0-15.0The [facility] HealthComment on above:Performed By: #### CBC #### [facility] [address] [place] [address] Dr. Benoit DiggsHematocrit (Bld) [Volume fraction]22.0 %Critically low36.0-48.0 The [facility] HealthComment on above:Performed By: #### CBC #### [facility] [address] [place] [address] Dr. Benoit DiggsHemoglobin (Bld) [Mass/Vol]6.8 g/dLCritically low12.0-16.0The [facility] HealthComment on above:Performed By: #### CBC #### [facility] [address] [place] [address] Dr. Benoit Amado #0.05 10e3/ulCritically high0.00-0.03The [facility] Comment on above:Performed By: #### CBC #### [facility] [address] [place] [address] Dr. Benoit Amado %0.5 %Normal0.0-0.5The [facility] HealthComment on above: Performed By: #### CBC #### [facility] [address] [place] [address] Dr. Benoit Dennis #2.9 103/ulNormal1.2-3.8The [facility] HealthComment on above:Performed By: #### CBC #### [facility] [address] [place] [address] Dr. Benoit Pantojamphocytes/100 WBC (Bld)31.0 %Vblyvd68.5-60.0The [facility] HealthComment on above:Performed By: #### CBC #### [facility] [address] [place] [address] Dr. Benoit Real DIFF REQNONormalThe [facility] HealthComment on above: Performed By: #### CBC #### [facility] [address] [place] [address] Dr. Benoit Lima (RBC) [Entitic mass]24.6 pgCritically low26.7-34.0The [facility] HealthComment on above:Performed By: #### CBC #### [facility] [address] [place] [address] Dr. Benoit Lima (RBC) [Mass/Vol]30.9 g/zQAjneyv22.9-35.2The [facility] HealthComment on above:Performed By: #### CBC #### [facility] [address] [place] [address] Dr. Benoit Lima (RBC) [Entitic vol]79.7 fLCritically low81.0-99.0The [facility] HealthComment on above:Performed By: #### CBC #### [facility] [address] [place] [address] Dr. Benoit Castellano #0.8 103/ulNormal0.3-0.8The [facility] HealthComment on above:Performed By: #### CBC #### [facility] [address] [place] [address] Dr. Benoit Funezocytes/100 WBC (Bld)7.9 %Normal1.7-12.0The [facility] Comment on above:Performed By: #### CBC #### [facility] [address] [place] [address] Dr. Benoit Amaya #5.4 103/ulNormal1.4-6.5The [facility] HealthComment on above:Performed By: #### CBC #### [facility] [address] [place] [address] [address] Benoit Herrerautrophils/100 WBC (Bld)57.1 %Xkkvjw00.0-75.0The [place] on above:Performed By: #### CBC #### [facility] [address] [place] [address] Dr. Benoit Pearllet mean volume (Bld) [Entitic vol]11.9 fLNormal9.5-13.5The [facility] HealthComcaro center on above:Performed By: #### CBC #### [facility] [address] [place] [address] Dr. Benoit DiggsPLT180 103/zeFdpfob124-596Say [place] on above: Performed By: #### CBC #### [facility] [address] [place] [address] Dr. Benoit DiggsRBC2.76 106/ulCritically low4.20-5.40The [place] on above:Performed By: #### CBC #### [facility] [address] [place] [address] Dr. Benoit DiggsWBC9.5 103/ulNormal4.0-11.0The [place] on above: Performed By: #### CBC #### [facility] [address] [place] [address] Dr. Benoit DiggsAMNISUREon [id number]BanbymKCCZBWDXWks [place] on above:Performed By: #### CBC #### [facility] [address] [place] [address] Dr. Benoit GarciaC AUTO DIFFon [id number] #0.1 103/ulNormal0.0-0.1The [place] on above:Performed By: #### CBC ####[facility] [address] [address]Dr.Yilan DiggsBasophils/100 WBC (Bld)0.6 %Normal0.2-2.0The [place] on above:Performed By: #### CBC ####[facility] [address] [place], [place] [address]Dr.Karylan ChangEO #0.4 103/ulNormal0.0-0.7The [facility] HospitalComment on above:Performed By: #### CBC ####[facility] V[address]maarqx[address] [place], [place] [address]Dr.Karyaurora ChangEosinophils/100 WBC (Bld)3.5 %Normal 0.9-7.0The [facility] HospitalComment on above:Performed By: #### CBC ####[facility] A[address]fiiscby[address] [place], [place] [address]Dr.Benoit Diggs Erythrocyte distribution width (RBC) [Ratio]15.4 %Critically high11.0-15.0The Park[facility] HealthComment on above:Performed By: #### CBC ####[facility] Skgbpwlvod[address] [place], [place] [address]Dr.Benoit ChangHematocrit (Bld) [Volume fraction]26.4 %Critically low36.0-48.0The Parkview HealthComment on above:Performed By: #### CBC ####[facility] Bldlgfnwnl[address] [place], [place] [address]Dr.Benoit ChangHemoglobin (Bld) [Mass/Vol]8.4 g/dL Critically low12.0-16.0The [facility]view HealthComment on above:Performed By: #### CBC ####[facility] Ktyqmx[address]qu[address] [place], [place] [address]Dr. Benoit ChangIG #0.04 10e3/ulCritically high0.00-0.03The Parkview HealthComment on above:Performed By: #### CBC ####[facility] Fwfrdeeqev[address] [place], [place] [address]Dr.Benoit ChangIG %0.4 %Normal0.0-0.5The Parkview HealthComment on above:Performed By: #### CBC ####[facility] Vcqin[address]pwj[address] [place], [place] [address]Dr.Benoit ChangLYMPH #2.8 103/ulNormal1.2-3.8The Parkview HealthComment on above:Performed By: #### CBC ####[facility] Ywanompqly[address] [place], [place] [address]Dr. Benoit DiggsLymphocytes/100 WBC (Bld)26.9 %Kwhmuz32.5-60.0The [facility] Comment on above:Performed By: #### CBC ####[facility] Joeirliirr[address] [place], [place] [address]Dr.Benoit DiggsMANUAL DIFF REQNONormalThe [facility] HospitalComment on above:Performed By: #### CBC ####[facility] Cpncqjpdtx[address] [place], [place] [address]Dr.Karyaurora DiggsH (RBC) [Entitic mass]24.7 pgCritically low26.7-34.0The Parkview HealthComment on above:Performed By: #### CBC ####[facility] Hjjhespunq[address] [place], [place] [address]Dr.Karyaurora DontaeMCHC (RBC) [Mass/Vol]31.8 g/dLNormal 29.9-35.2The Parkview HealthComment on above:Performed By: #### CBC ####[facility] Knijofgiav[address] [place], [place] [address]Dr. Karyaurora DontaeMCV (RBC) [Entitic vol]77.6 fLCritically low81.0-99.0The [facility] HospitalComment on above:Performed By: #### CBC ####[facility] Majjcs[address]re[address] [place], [place] [address]Dr.Karyaurora DontaeMONO #0.7 103/ulNormal0.3-0.8The [facility] HospitalComment on above:Performed By: #### CBC ####[facility] Dgrsfqlitl[address] [place], [place] [address]Dr. Karyaurora DontaeMonocytes/100 WBC (Bld)6.2 %Normal1.7-12.0The [facility] Comment on above:Performed By: #### CBC ####[facility] Qoopfuxobi[address] [place], [place] [address]Dr.Benoit HerreraUT #6.5 103/ulNormal1.4-6.5 The Parkview HealthComment on above:Performed By: #### CBC ####[facility] [address] [address]Dr.Benoit Diggs Neutrophils/100 WBC (Bld)62.4 %Okomep82.0-75.0The Parkview HealthComment on above:Performed By: #### CBC ####[facility] Synganzant[address] [place], [place] [address]Dr.Benoit DiggsPlatelet mean volume (Bld) [Entitic vol] 11.0 fLNormal9.5-13.5The Parkview HealthComment on above:Performed By: #### CBC ####[facility] Aqofysvuhj[address] [place], [place] [address]Dr. Benoit DiggsPLT215 103/fvDefwot566-616Myj Parkview HealthComment on above: Performed By: #### CBC ####[facility] Tliulwo[address] [place], [place] [address]DrQuincy DiggsRBC3.40 106/ulCritically low4.20-5.40The Parkview HealthComment on above:Performed By: #### CBC ####[facility] Zxziwnlicf[address] [place], [place] [address]Dr.Benoit DiggsWBC10.4 103/ul Normal4.0-11.0[facility] HospitalComment on above:Performed By: #### CBC ####[facility] Ntqxnnopmx[address] [place], [place] [address]DrJael DiggsDRUG SCREEN RAPID (URINE)on 83-90-7860WHVSqupwjybFhcozbLXWWTNHDUuh [facility] HospitalComment on above:Performed By: #### CBC #### [facility] [address] [place] [address] Dr. Benoit SchwartzNegativeNormalNEGATIVEOhiohealth Pickerington Methodist HospitalComment on above: Performed By: #### CBC #### [facility] [address] [place] [address] Dr. Benoit RiosPNegativeNormalNEGATIVEOhiohealth Pickerington Methodist HospitalComment on above: Performed By: #### CBC #### [facility] [address] [address] [address] Benoit DiggsBZONegativeNormalNEGATIVEParkwood Hospital on above: Performed By: #### CBC #### [facility] [address] [address] [address] Benoit DiggsCOCNegativeNormalNEGATIVEOhiohealth Pickerington Methodist HospitalComment on above: Performed By: #### CBC #### [facility] [address] [address] [address] Benoit WagnerSelect Medical Specialty Hospital - CincinnatiComcaro center on above: Result Comment: AMP (Amphetamine): 500ng/mL, BAR (Barbituates): 200 ng/mL, BZO (Benzodiazepines): 150 ng/mL, BUP (Buprenorphine): 10 ng/mL, JOSE MANUEL (Cocaine): 150 ng/mL, mAMP (Methamphetamine): 500 ng/mL, MTD (Methadone): 200 ng/mL, OPI (Opiates): 100 ng/mL, OXY (Oxycodone): 100 ng/mL, PCP (Phencyclidine): 25 ng/mL, PPX (Propoxyphene): 300 ng/mL, THC (Cannabinoids): 50 ng/mL, TCA (Trycyclic Antidepressants): 300 ng/mLPerformed By: #### CBC #### [facility] [address] [place] [address] Dr. Benoit DiggsDRUG CUT HEADERDRUG CLASS TEST SYSTEM CUT-OFF CONCENTRATIONS ARE FOLLOWS:NormalThe [facility]view HealthComcaro center on above:Performed By: #### CBC #### [facility] [address] [address] [address] Benoit DiggsmAMPNegativeNormalNEGATIVEOhiohealth Pickerington Methodist HospitalComcaro center on above: Performed By: #### CBC #### [facility] [address] [address] [address] Benoit DiggsMTDNegativeNormneNEGATIVEParkwood Hospital on above: Performed By: #### CBC #### [facility] [address] [address] [address] Benoit DiggsOPINegativeNormalNEGATIVEOhiohealth Pickerington Methodist HospitalComment on above: Performed By: #### CBC #### [facility] [address] [place] [address] Dr. Benoit DiggsOXYNegativeNormalNEGATIVEParkwood Hospital on above: Performed By: #### CBC #### [facility] [address] [address] [address] Benoit DiggsPCPNegativeNormalNEGATIVEParkwood Hospital on above: Performed By: #### CBC #### [facility] [address] [place] [address] Dr. Benoit DiggsPPXNegativeNormalNEGATIVEParkwood Hospital on above: Performed By: #### CBC #### [facility] [address] [place] [address] Dr. Benoit DiggsTCANegativeNormalNEGSt. Rita's Hospital on above: Performed By: #### CBC #### [facility] [address] [place] [address] Dr. Benoit DiggsTHCNegativeNormalNEGATIVEParkwood Hospital on above: Performed By: #### CBC #### [facility] [address] [place] [address] Dr. Benoit Delgado AND SCREENon [id number] AND SCREENNegativeNormalThe [place] on above:Performed By: #### TNS #### [facility] [address] [place] [address] Dr. Benoit Wiseman (CLEAN/CATCH) METAL CONTROL WORKER/MICRO IF IND.on 74-87-7341Zlenfvdhi Ql (U) NegativeNormalNEGATIVEParkwood Hospital on above:Performed By: #### CBC #### [facility] [address] [place] [address] Dr. Benoit Rodrigezarity (U)CLEARNormalCLEAROhiohealth Pickerington Methodist HospitalComcaro center on above: Performed By: #### CBC #### [facility] [address] [place] [address] Dr. Benoit Gibsonlor (U)YELLOWNormalYELLOWOhiohealth Pickerington Methodist HospitalComment on above: Performed By: #### CBC #### [facility] [address] [place] [address] Dr. Benoit DiggsGlucose Ql (U)NegativeNormalNEGATIVEOhiohealth Pickerington Methodist HospitalComment on above:Performed By: #### CBC #### [facility] [address] [place] [address] Dr. Benoit DiggsHemoglobin Ql (U)NegativeNormalNEGATIVEHenry County Hospital on above:Performed By: #### CBC #### [facility] [address] [address] [address] Benoit DiggsKetones Ql (U)NegativeNormalNEGATIVEOhiohealth Pickerington Methodist HospitalComment on above:Performed By: #### CBC #### [facility] [address] [place] [address] Dr. Benoit DiggsLEUKOCYTESNegativeNormalNEGATIVEOhiohealth Pickerington Methodist HospitalComment on above:Performed By: #### CBC #### [facility] [address] [place] [address] Dr. Benoit Armstrongtrite Ql (U)NegativeNormalNEGATIVEOhiohealth Pickerington Methodist HospitalComment on above:Performed By: #### CBC #### [facility] [address] [place] [address] Dr. Benoit DiggspH (U)6.0 [pH]Normal5-9The [facility] Hospitalment on above: Performed By: #### CBC #### [facility] [address] [place] [address] Dr. Benoit DiggsSPEC GRAVITY1.667Bglpoj6.005-<=1.025The Parkview HealthComment on above:Performed By: #### CBC #### [facility] [address] [place] [address] Dr. Benoit Wiseman PROTEINTRACENormalNEGATIVE/ TRACEThe Parkview HealthComment on above:Performed By: #### CBC #### [facility] [address] [place] [address] Dr. Benoit Veras MICRO INDNOT INDICATEDNormalThProMedica Bay Park HospitalComment on above:Performed By: #### CBC #### [facility] [address] [place] [address] Dr. Benoit Milesbilinogen Qn (U)4 {Nadege'U}/dLAbnormal0.2 - 1.0[facility] Anne Hospitalment on above:Performed By: #### CBC #### [facility] [address] [place] [address] Dr. Benoit GusmanLTURE URINEon [id number] URINECulture Observations: MODERATE GROWTH OF MIXED GENITAL RIZWAN. NO POTENTIAL PATHOGENS SEEN.NormalThe Parkview HealthComment on above:Performed By: #### URCX #### [facility] [address] [place] [address] Dr. Benoit Wiseman (CLEAN/CATCH) METAL CONTROL WORKER/MICRO IF IND.on 50-22-0853Virqrkxbz Ql (U) SMALLAbnormalNEGATIVEMercy Health St. Anne Hospitalment on above:Performed By: #### CBC #### [facility] [address] [place] [address] Dr. Benoit DiggsClarity (U)CLEARNormalCLEAROhiohealth Pickerington Methodist HospitalComment on above: Performed By: #### CBC #### [facility] [address] [place] [address] Dr. Benoit Loya (U)DK. ORANGEAbnormalYELLOWOhiohealth Pickerington Methodist HospitalComment on above:Performed By: #### CBC #### [facility] [address] [place] [address] Dr. Benoit DiggsGlucose Ql (U)NegativeNormalNEGATIVEOhiohealth Pickerington Methodist HospitalComment on above:Performed By: #### CBC #### [facility] [address] [place] [address] Dr. Benoit DiggsHemoglobin Ql (U)NegativeNormalNEGATIVEHenry County Hospital on above:Performed By: #### CBC #### [facility] [address] [place] [address] Dr. Benoit DiggsKetones Ql (U)TRACEAbnormalNEGATIVEOhiohealth Pickerington Methodist HospitalComment on above:Performed By: #### CBC #### [facility] [address] [place] [address] Dr. Benoit DanOCYTESSMALLAbnormalNEGATIVEOhiohealth Pickerington Methodist HospitalComment on above:Performed By: #### CBC #### [facility] [address] [address] [address] Benoit Armstrongtrite Ql (U)NegativeNormalNEGATIVEThe Parkview HealthComment on above:Performed By: #### CBC #### [facility] [address] [address] [address] Benoit DiggspH (U)5.5 [pH]Normal5-9The Parkview HealthComment on above: Performed By: #### CBC #### [facility] [address] [place] [address] Dr. Benoit DiggsSPEC GRAVITY>=1.727Fuqlhwbc1.005-<=1.025The [facility] Comment on above:Performed By: #### CBC #### [facility] [address] [address] [address] Benoit Wiseman SRSJMDL481 mg/dlAblake regional health systemalNEGATIVE/ TRACEOhiohealth Pickerington Methodist Hospital Comment on above:Performed By: #### CBC #### [facility] [address] [place] [address] Dr. Benoit Veras MICRO INDINDICATEDNormalThProMedica Bay Park HospitalComment on above: Performed By: #### CBC #### [facility] [address] [place] [address] Dr. Benoit Milesbilinogen Qn (U)8 {Nadege'U}/dLAbnormal0.2 - 1.0The Parkview HealthComment on above:Performed By: #### CBC #### [facility] [address] [place] [address] Dr. Benoit Stewart MICROSCOPIC ONLYon 63-49-0430ZPABRZABHZFBBMYODhaadbzsETRZ SEENThe Parkview HealthComment on above:Performed By: #### CBC #### [facility] [address] [address] [address] Benoit Loco identified Cx Nom (U)INDICATEDCleveland Clinic Marymount HospitalComment on above:Performed By: #### CBC #### [facility] [address] [place] [address] Dr. Benoit Norton SEENNormVeterans Health Administration [facility] PhoenixE SEENParkwood Hospital on above:Performed By: #### CBC #### [facility] [address] [address] [address] Benoit Beckettystals LM Nom (Urine sed)NONE SEENNormalNONE SEENParkwood Hospital on above:Performed By: #### CBC #### [facility] [address] [place] [address] Dr. Laboy ChangEpithelial cells LM Ql (Urine sed)MANYAbnormalNONE SEEN /RAREThe [place] on above:Performed By: #### CBC #### [facility] [address] [place] [address] Dr. Benoit TalbertMALLAbCenterPointe HospitalE SEENParkwood Hospital on above:Performed By: #### CBC #### [facility] [address] [place] [address] Dr. Benoit CevallosReyabULN8-71Mhjwlodw2-5Bgk [place] on above:Performed By: #### CBC #### [facility] [address] [place] [address] Dr. Benoit DiggsYxfufJUG59-61RqqcmfzvXUVN SEENParkwood Hospital on above: Performed By: #### CBC #### [facility] [address] [place] [address] Dr. Benoit Villarreal B STREP CULTUREon 11-18-2022S. agalactiae Ag Ql (Unsp spec) Culture Observations: NEGATIVE FOR GROUP B STREPTOCOCCUS.NormalThe [facility] HealthComcaro center on above: Performed By: #### GBSCX #### [facility] [address] [place] [address] Dr. Benoit Oseguera AUTO DIFFon [id number] #0.0 103/ulNormal0.0-0.1The Parkview HealthComment on above:Performed By: #### CBC #### [facility] [address] [place] [address] Dr. Benoit DiggsBasophils/100 WBC (Bld)0.3 %Normal0.2-2.0The [facility] Comment on above:Performed By: #### CBC #### [facility] [address] [place] [address] Dr. Benoit Aleman #0.1 103/ulNormal0.0-0.7The [facility] HealthComment on above: Performed By: #### CBC #### [facility] [address] [place] [address] Dr. Benoit Krausosinophils/100 WBC (Bld)2.0 %Normal0.9-7.0The [facility] Comment on above:Performed By: #### CBC #### [facility] [address] [place] [address] Dr. Benoit Krausrythrocyte distribution width (RBC) [Ratio]12.7 %Xahgof97.0-15.0 The Parkview HealthComment on above:Performed By: #### CBC #### [facility] [address] [place] [address] Dr. Benoit DiggsHematocrit (Bld) [Volume fraction]30.6 %Critically low36.0-48.0 The Parkview HealthComment on above:Performed By: #### CBC #### [facility] [address] [place] [address] Dr. Benoit DiggsHemoglobin (Bld) [Mass/Vol]10.1 g/dLCritically low12.0-16.0The [facility] HealthComment on above:Performed By: #### CBC #### [facility] [address] [place] [address] Dr. Benoit Amado #0.03 10e3/ulNormal0.00-0.03The [facility] HealthComment on above:Performed By: #### CBC #### [facility] [address] [address] [address] Benoit Amado %0.5 %Normal0.0-0.5The [facility]view HealthComment on above: Performed By: #### CBC #### [facility] [address] [address] [address] Benoit Dennis #0.6 103/ulCritically low1.2-3.8The [facility] Comment on above:Performed By: #### CBC #### [facility] [address] [address] [address] Benoit Beckmanhocytes/100 WBC (Bld)10.7 %Critically low20.5-60.0The [facility] HealthComment on above:Performed By: #### CBC #### [facility] [address] [place] [address] Dr. Benoit FuentesUAL DIFF REQNONormalThe [facility] HealthComment on above: Performed By: #### CBC #### [facility] [address] [place] [address] Dr. Benoit Lima (RBC) [Entitic mass]28.9 uzRqgfrh36.7-34.0The Parkview HealthComment on above:Performed By: #### CBC #### [facility] [address] [place] [address] Dr. Benoit Lima (RBC) [Mass/Vol]33.0 g/dIPphrch19.9-35.2The Parkview HealthComment on above:Performed By: #### CBC #### [facility] [address] [place] [address] Dr. Benoit Lima (RBC) [Entitic vol]87.4 nBUyoagg76.0-99.0The Parkview HealthComment on above:Performed By: #### CBC #### [facility] [address] [place] [address] Dr. Benoit Castellano #0.6 103/ulNormal0.3-0.8The Parkview HealthComment on above:Performed By: #### CBC #### [facility] [address] [address] [address] Benoit Funezocytes/100 WBC (Bld)10.9 %Normal1.7-12.0The [facility] Comment on above:Performed By: #### CBC #### [facility] [address] [place] [address] Dr. Benoit HerreraUT #4.4 103/ulNormal1.4-6.5The Park[facility] HealthComment on above:Performed By: #### CBC #### [facility] [address] [place] [address] Dr. Benoit Herrerautrophils/100 WBC (Bld)75.6 %Critically high43.0-75.0The Parkview HealthComment on above:Performed By: #### CBC #### [facility] [address] [place] [address] Dr. Benoit DiggsPlatelet mean volume (Bld) [Entitic vol]10.9 fLNormal9.5-13.5The [facility]view HealthComment on above:Performed By: #### CBC #### [facility] [address] [place] [address] Dr. Benoit DiggsPLT191 103/iiNlrnwd416-828Xof Parkview HealthComment on above: Performed By: #### CBC #### [facility] [address] [place] [address] Dr. Benoit DiggsRBC3.50 106/ulCritically low4.20-5.40The Parkview HealthComment on above:Performed By: #### CBC #### [facility] [address] [place] [address] Dr. Benoit DiggsWBC5.9 103/ulNormal4.0-11.0The Parkview HealthComment on above: Performed By: #### CBC #### [facility] [address] [place] [address] Dr. Benoit Lancaster URINEon 72-99-9530BXWBUAJ URINECulture Observations: HEAVY GROWTH OF MIXED GENITAL RIZWAN. NO POTENTIAL PATHOGENS SEEN.NormalThe Cambridge HospitalComment on above:Performed By: #### URCX #### [facility] [address] [address] [address] Benoit Brower URINE PROFILEon 90-05-5073Atibpjgra Ql (U)NegativeNormal NEGATIVEOhiohealth Pickerington Methodist HospitalComcaro center on above:Performed By: #### [id number] #### [facility] [address] [address] [address] Benoit DiggsClarity (U)CLEARNormalCLEAROhiohealth Pickerington Methodist HospitalComcaro center on above: Performed By: #### [id number] #### [facility] [address] [place] [address] Dr. Benoit Loya (U)YELLOWNormalYELLOWParkwood Hospital on above: Performed By: #### [id number] #### [facility] [address] [place] [address] Dr. Benoit Epperson micrscopic examination will be performed if indicated. NormalOhiohealth Pickerington Methodist HospitalComcaro center on above:Performed By: #### [id number] #### [facility] [address] [place] [address] Dr. Benoit DiggsGlucose Ql (U)NegativeNormalNEGATIVEParkwood Hospital on above:Performed By: #### [id number] #### [facility] [address] [place] [address] Dr. Benoit iDggsHemoglobin Ql (U)NegativeNormalNEGMercy Health Urbana Hospital Comment on above:Performed By: #### [id number] #### [facility] [address] [address] [address] Benoit DiggsKetones Ql (U)15 mg/dlAbnormalNEGMercy Health Urbana Hospital Comment on above:Performed By: #### [id number] #### [facility] [address] [place] [address] Dr. Benoit DiggsLEUKOCYTESNegativeNormalNEGATIVEParkwood Hospital on above:Performed By: #### [id number] #### [facility] [address] [place] [address] Dr. Benoit DiggsNitrite Ql (U)NegativeNormalNEGATIVEThe Parkview HealthComment on above:Performed By: #### [id number] #### [facility] [address] [place] [address] Dr. Benoit DiggspH (U)6.5 [pH]Normal5-9The [place] on above: Performed By: #### [id number] #### [facility] [address] [place] [address] Dr. Benoit DiggsSPEC GRAVITY1.404Ioaolc2.005-<=1.025The [facility] HealthComcaro center on above:Performed By: #### [id number] #### [facility] [address] [place] [address] Dr. Benoit Wiseman PROTEINTRACENormalNEGATIVE/ TRACEThe [place] on above:Performed By: #### [id number] #### [facility] [address] [place] [address] Dr. Benoit Veras MICRO INDINDICATEDNoCleveland ClinicComment on above: Performed By: #### [id number] #### [facility] [address] [place] [address] Dr. Benoit Milesbilinogen Qn (U)1.0 {Nadege'U}/dLNormal0.2 - 1.0[facility] on above:Performed By: #### [id number] #### [facility] [address] [place] [address] Dr. Benoit DiggsINFLUENZA A AND B AGon 87-91-7185CSBLIICTBJFGXMemorial Health System on above:Result Comment: Negative for Flu A protein angiten. Infection due to Flu A cannot be ruled out. FluA angiten in the sample may be below the detection limit of the test.Performed By: #### [id number] #### [facility] [address] [place] [address] Dr. Benoit DiggsINFLUBNEGMemorial Health System on above: Result Comment: Negative for Flu B protein antigen. Infection due to Flu B cannot be ruled out. FluB antigen in the sample may be below the detection limit of the test.Performed By: #### [id number] #### [facility] [address] [place] [address] Dr. Benoit Souza AGNegativeNormalNEGATIVE SEE COMMENTThe Parkview HealthComment on above:Performed By: #### [id number] #### [facility] [address] [place] [address] Dr. Benoit Gonzalez AGNegativeNormalNEGATIVE SEE COMMENTThe [facility] HealthComment on above:Performed By: #### [id number] #### [facility] [address] [place] [address] Dr. Benoit DiggsINTERNAL CONTROLSWithin Normal LimitsNormalWithin Normal Limits The Parkview HealthComment on above:Performed By: #### [id number] #### [facility] [address] [place] [address] Dr. Benoit DiggsPROF CHEM 8 (BAS METB)on 77-26-1011Pqzth gap [Moles/Vol]11.6 mmol/LNormalThe [facility] HealthComment on above:Performed By: #### CBC #### [facility] [address] [place] [address] Dr. Benoit DiggsCalcium [Mass/Vol]8.2 mg/dLCritically low8.5-10.1The [facility] HealthComment on above:Performed By: #### CBC #### [facility] [address] [place] [address] Dr. Benoit DiggsChloride [Moles/Vol]100 mmol/GGrgyjr06-093Hrv [facility] Comment on above:Performed By: #### CBC #### [facility] [address] [place] [address] Dr. Benoit DiggsCO2 [Moles/Vol]23.9 mmol/PKjxflj46.0-32.0The [facility] Comment on above:Performed By: #### CBC #### [facility] [address] [place] [address] Dr. Benoit DiggsCreatinine [Mass/Vol]0.48 mg/dLCritically low0.55-1.02The [facility] Hospitalment on above:Performed By: #### CBC #### [facility] [address] [address] [address] Benoit KrausGFR-AF PALAUAN>60Normal>=60The [facility] Hospitalment on above:Performed By: #### CBC #### [facility] [address] [address] [address] Benoit KrausGFR-NON AF PALAUAN>60Normal>=60The [facility] HealthComment on above:Performed By: #### CBC #### [facility] [address] [address] [address] Benoit DiggsGlucose [Mass/Vol]94 mg/nXKsquec56-597Eze [facility] Comment on above:Performed By: #### CBC #### [facility] [address] [address] [address] Benoit DiggsPotassium [Moles/Vol]3.5 mmol/LNormal3.5-5.1The [facility] Comment on above:Performed By: #### CBC #### [facility] [address] [address] [address] Benoit DiggsSodium [Moles/Vol]132 mmol/LCritically afv466-548Xcg [place] on above:Performed By: #### CBC #### [facility] [address] [address] [address] Benoit DiggsUrea nitrogen [Mass/Vol]6.0 mg/dLCritically low7.0-18.0[facility] on above:Performed By: #### CBC #### [facility] [address] [address] [address] Benoit DiggsUrea nitrogen/Creatinine [Mass ratio]12.5 mg/mgNormalThe [facility] HealthComcaro center on above:Performed By: #### CBC #### [facility] [address] [address] [address] Benoit DiggsRESPIRATORY PANEL PLUSon 78-66-6033JsfmamxamvUko detectedNormal NOT DETECTEDThe Emma HospitalComment on above:Performed By: #### RSPLUS ####[facility] [address] [address]Dr. Benoit DiggsB. ParapertusisNot detectedNormalNOT DETECTEDThe [facility] Comment on above:Performed By: #### RSPLUS ####[facility] [address] [place], [place] [address]Dr. Benoit DiggsB. PertussisNot detected NormalNOT DETECTEDThe [facility] HealthComment on above:Performed By: #### RSPLUS ####[facility] [address] [place], [place] [address]Dr. Benoit DiggsChlamydia PneumoniaeNot detectedNormalNOT DETECTEDThe [facility] HealthComment on above:Performed By: #### RSPLUS ####[facility] [address] [place], [place] [address]Dr. Benoit Diggs Coronavirus 229ENot detectedNormalNOT DETECTEDThe [facility]view HealthComment on above:Performed By: #### RSPLUS ####[facility] [address] [place], [place] [address]Dr. Yiaurora ChangCoronavirus SSH4Odx detectedNormalNOT DETECTEDThe [facility] HealthComment on above:Performed By: #### RSPLUS ####[facility] [address]so[address] [place], [place] [address]Dr. Yilan ChangCoronavirus DR46Wii detectedNormalNOT DETECTEDThe [facility] Comment on above:Performed By: #### RSPLUS ####[facility] [address]au[address] [place], [place] [address]Dr. Yilan ChangCoronavirus GB11Jjs detected NormalNOT DETECTEDThe [facility]view HealthComment on above:Performed By: #### RSPLUS ####[facility] Kw[address] [place], [place] [address]Dr. Karylan DontaeInfluenza A H1 2009DetectedAbnormalNOT DETECTEDThe [facility]view HealthComment on above:Performed By: #### RSPLUS ####[facility] My[address]aw[address] [place], [place] [address]Dr. Yilan ChangInfluenza A H3 Not detectedNormalNOT DETECTEDThe [facility] HealthComment on above:Performed By: #### RSPLUS ####[facility] [address] [address]Dr. Benoit DiggsInfluenza BNot detectedNormalNOT DETECTEDThe [facility]view HealthComment on above:Performed By: #### RSPLUS ####[facility] [address] [address]Dr. Benoit Diggs MetapneumovirusNot detectedNormalNOT DETECTEDThe [facility] HealthComment on above:Performed By: #### RSPLUS ####[facility] Uhomswks[address] [place], [place] [address]Dr. Benoit DiggsMycoplas. PneumoniaeNot detectedNormal NOT DETECTEDThe [facility] HealthComment on above:Performed By: #### RSPLUS ####[facility] I[address]ozl[address] [place], [place] [address]Dr. Benoit DiggsParainfluenza 1Not detectedNormalNOT DETECTEDThe [facility] Comment on above:Performed By: #### RSPLUS ####[facility] T[address] [place], [place] [address]Dr. Benoit DiggsParainfluenza 2Not detected NormalNOT DETECTEDThe [facility] HealthComment on above:Performed By: #### RSPLUS ####[facility] [address]baf[address] [place], [place] [address]Dr. Benoit DiggsParainfluenza 3Not detectedNormalNOT DETECTEDThe [facility] HealthComment on above:Performed By: #### RSPLUS ####[facility] [address] [place], [place] [address]Dr. Benoit ChangParainfluenza 4Not detectedNormalNOT DETECTEDThe [facility] HealthComment on above:Performed By: #### RSPLUS ####[facility] [address] [place], [place] [address]Dr. Benoit ChangRhino/EnterovirusNot detectedNormalNOT DETECTEDThe [facility] HealthComment on above:Performed By: #### RSPLUS ####[facility] [address] [id number]. Benoit Kumar2 Header 1RESPIRATORY PANEL: VIRUSESNormalThe [facility]view HealthComment on above: Performed By: #### RSPLUS ####[facility] [address] [id number]. Benoit DiggsRP2 Header 2RESPIRATORY PANEL: BACTERIA NormalThe [facility] HealthComcaro center on above:Performed By: #### RSPLUS ####[facility] [address] [address]Dr. Benoit DiggsRSVNot detectedNormalNOT DETECTEDThe [place] on above:Performed By: #### RSPLUS ####[facility] [address] [address]Dr. Benoit Farias-CoV-2 (COVID-19) RNA RANDOLPH+probe Ql (Unsp spec)Not detectedNormalNOT DETECTEDThe [place] on above: Performed By: #### RSPLUS ####[facility] [address] [address]Dr. Benoit Vee Comment: When diagnostic testing is negative, the [...] for this test is supported by the [place] of Health and Human Service's declaration that circumstances exist to justify the emergency use of in vitro diagnostics for the detection and/or diagnosis of the virus that causes COVID-19. This EUA will remain in effect for the duration of the COVID-19 declaration justifying emergency of IVDs, unless it is terminated or revoked by the FDA (after which the test may no longer be used).Performed By: #### HIV12 #### [facility] [address] [address] [address] Benoit TURCIOSon 81-50-3419DYTJDQXAFHOIMUptveqvgSZSU SEEN [facility] on above:Performed By: #### HIV12 #### [facility] [address] [place] [address] Dr. Benoit Loco identified Cx Nom (U)INDICATEDNoalThGlenbeigh Hospital on above:Performed By: #### HIV12 #### [facility] [address] [place] [address] Dr. Benoit SinclairE SEENNormalNONE SEENParkwood Hospital on above:Performed By: #### HIV12 #### [facility] [address] [place] [address] Dr. Benoti Gomez LM Nom (Urine sed)NONE SEENNormalNONE SEENParkwood Hospital on above:Performed By: #### HIV12 #### [facility] [address] [place] [address] Dr. Laboy ChangEpithelial cells LM Ql (Urine sed)MODERATEAbnormalNONE SEEN /RARE The [facility]Comcaro center on above:Performed By: #### HIV12 #### [facility] [address] [place] [address] Dr. Benoit HessE SEENNormalNONE SEENParkwood Hospital on above:Performed By: #### HIV12 #### [facility] [address] [place] [address] Dr. Benoit JensenOveunENN0-0Ldhbvq7-0WjvParkwood Hospital on above:Performed By: #### HIV12 #### [facility] [address] [place] [address] Dr. Benoit ChristineBC5-10AbnormalNONE SEENParkwood Hospital on above: Performed By: #### HIV12 #### [facility] [address] [place] [address] Dr. Benoit Oseguera AUTO DIFFon 47-22-4586QVWB #0.1 103/ulNormal0.0-0.1[facility] on above:Performed By: #### CBC #### [facility] [address] [address] [address] Benoit DiggsBasophils/100 WBC (Bld)0.5 %Normal0.2-2.0[facility] Comment on above:Performed By: #### CBC #### [facility] [address] [address] [address] Benoit Aleman #0.4 103/ulNormal0.0-0.7The [facility] HealthComment on above: Performed By: #### CBC #### [facility] [address] [place] [address] Dr. Benoit Krausosinophils/100 WBC (Bld)4.1 %Normal0.9-7.0The [facility] Comment on above:Performed By: #### CBC #### [facility] [address] [place] [address] Dr. Benoit Krausrythrocyte distribution width (RBC) [Ratio]12.8 %Vrrkfo03.0-15.0 [facility] HospitalComment on above:Performed By: #### CBC #### [facility] [address] [place] [address] Dr. Benoit DiggsHematocrit (Bld) [Volume fraction]31.4 %Critically low36.0-48.0 [facility] HospitalComment on above:Performed By: #### CBC #### [facility] [address] [place] [address] Dr. Benoit DiggsHemoglobin (Bld) [Mass/Vol]10.5 g/dLCritically low12.0-16.0[facility] HospitalComment on above:Performed By: #### CBC #### [facility] [address] [place] [address] Dr. Benoit Amado #0.05 10e3/ulCritically high0.00-0.03The [facility] Comment on above:Performed By: #### CBC #### [facility] [address] [place] [address] Dr. Benoit Amado %0.5 %Normal0.0-0.5The [facility]ment on above: Performed By: #### CBC #### [facility] [address] [address] [address] Benoit Dennis #2.2 103/ulNormal1.2-3.8The [place] on above:Performed By: #### CBC #### [facility] [address] [place] [address] Dr. Benoit Beckmanhocytes/100 WBC (Bld)21.9 %Gceddv18.5-60.0The [place] on above:Performed By: #### CBC #### [facility] [address] [place] [address] Dr. Benoit Real DIFF REQNONormalThe [facility] HealthComcaro center on above: Performed By: #### CBC #### [facility] [address] [place] [address] Dr. Benoit Lima (RBC) [Entitic mass]29.7 spDthjrx60.7-34.0The [place] on above:Performed By: #### CBC #### [facility] [address] [place] [address] Dr. Benoit Lima (RBC) [Mass/Vol]33.4 g/iJKitltb51.9-35.2The [place] on above:Performed By: #### CBC #### [facility] [address] [place] [address] Dr. Benoit Lima (RBC) [Entitic vol]89.0 dRQbswuk30.0-99.0The [place] on above:Performed By: #### CBC #### [facility] [address] [place] [address] Dr. Benoit Castellano #0.6 103/ulNormal0.3-0.8The [place] on above:Performed By: #### CBC #### [facility] [address] [place] [address] Dr. Benoit Funezocytes/100 WBC (Bld)5.7 %Normal1.7-12.0The [facility] Comment on above:Performed By: #### CBC #### [facility] [address] [address] [address] Benoit Amaya #6.8 103/ulCritically high1.4-6.5ThProMedica [facility] Comment on above:Performed By: #### CBC #### [facility] [address] [address] [address] Benoit Herrerautrophils/100 WBC (Bld)67.3 %Txyntt05.0-75.0The [facility] HealthComment on above:Performed By: #### CBC #### [facility] [address] [address] [address] Benoit DiggsPlatelet mean volume (Bld) [Entitic vol]11.0 fLNormal9.5-13.5The [facility] HealthComment on above:Performed By: #### CBC #### [facility] [address] [address] [address] Benoit DiggsPLT215 103/quVaewzy684-718Krw [facility] HealthComment on above: Performed By: #### CBC #### [facility] [address] [address] [address] Benoit DiggsRBC3.53 106/ulCritically low4.20-5.40The [facility] HealthComment on above:Performed By: #### CBC #### [facility] [address] [address] [address] Benoit DiggsWBC10.2 103/ulNormal4.0-11.0[facility] HospitalComment on above:Performed By: #### CBC #### [facility] [address] [address] [address] Benoit DiggsGLUCOSE - 1HRon 69-46-0104Okevggt [Mass/Vol]116 mg/dLCritically htjx04-392Zza [facility] HealthComment on above:Performed By: #### GLU1HR ####[facility] [address] [address]. Benoit Mcconnell ACOG PANEL 2: 21 to 29on 10-25-2022..[facility] Comment on above:Performed By: #### CBC #### [facility] [address] [place] [address] Dr. Benoit Flores Gdln ACOG Nytobhe56-16UudsmkLexUniversity Hospitals St. John Medical Centerment on above:Performed By: #### CBC #### [facility] [address] [place] [address] Dr. Benoit DiggsDIAGNOSIS:CommentMcKitrick Hospital on above: Result Comment: NEGATIVE FOR INTRAEPITHELIAL LESION OR MALIGNANCY.Performed By: #### CBC #### [facility] [address] [place] [address] Dr. Benoit DiggsMethodology:CommentMcKitrick Hospital on above: Result Comment: This liquid based ThinPrep(R) pap test was screened with the use of an image guided system.Performed By: #### CBC #### [facility] [address] [place] [address] Dr. Benoit DiggsNote:CommentMcKitrick Hospital on above:Result Comment: The Pap smear is a screening test designed to aid in the detection of premalignant and malignant conditions of the uterine cervix. It is not a diagnostic procedure and should not be used as the sole means of detecting cervical cancer. Both false-positive and false-negative reports do occur. .Performed By: #### CBC #### [facility] [address] [place] [address] Dr. Benoit DiggsPerformed by:CommentMcKitrick Hospital on above: Result Comment: Cynthia Smith, Scaffold Worker (ASCP)Performed By: #### CBC #### [facility] [address] [place] [address] Dr. Benoit DiggsReflex Criteria:CommentMcKitrick Hospital on above:Result Comment: The HPV DNA reflex criteria were not met with this specimen result therefore, no HPV testing was performed. .Performed By: #### CBC #### [facility] [address] [place] [address] Dr. Yilan ChangSpecimen adequacy:CommentCleveland Clinic Marymount HospitalComment on above:Result Comment: Satisfactory for evaluation. No endocervical component is identified.Performed By: #### CBC #### [facility] [address] [address] [address] Benoit DiggsCHLAMYDIA/GONOCOCCUS RANDOLPH (SWAB/URINE/PAPon 90-39-8283Usgrsrctp trachomatis, NAANegativeNormalNegativeThe [facility] HealthComment on above: Performed By: #### HIV12 #### [facility] [address] [address] [address] Benoit DiggsNeisseria gonorrhoeae, NAANegativeNormalNegativeThe [facility] HealthComment on above:Performed By: #### HIV12 #### [facility] [address] [place] [address] Dr. Benoit Hampton PREG INCOMPLETE ANATOMYon [id number] PREG INCOMPLETE ANATOMY EXAMINATION: US PREG INCOMPLETE [...] Electronically authenticated by: MYLENE SULLIVAN Date: 2022-08-07 20:09NoCleveland ClinicUS PREG ANATOMY SINGLEon [id number] PREG ANATOMY SINGLE EXAMINATION: US PREG ANATOMY [...] Electronically authenticated by: AISHWARYA MAGALLON Date: 2022-07-25 17:11[facility] MATERNAL FOR SPINA BIFIDAon 55-40-3375EQU MoM0.55[facility] HospitalComment on above:Performed By: #### HIV12 #### [facility] [address] [place] [address] Dr. Benoit Chavarria Value20.0 ng/mLNVeterans Health AdministrationComment on above: Performed By: #### HIV12 #### [facility] [address] [place] [address] Dr. Benoit Chavarria, Serum for Spina BifidaReportC[facility] Clinic [facility] Comment on above:Performed By: #### HIV12 #### [facility] [address] [place] [address] Dr. Benoit GradyChillicothe HospitalComment on above:Result Comment: Caitlin Palafox, Ph.D., [facility] Director . References: Available Upon Request. . Multiples Of Median Cutoffs For AFP Elevations Caro 2.5 Black 2.8 IDD 2.0 Twins 4.5 Abbreviation Definitions IDD - Insulin Dep Diabetes OSBR - Open Spina Bifida Risk . For further inquiries contact [facility] at [phone]. . This test was developed and its performance characteristics determined by [employer]. It has not been cleared or approved by the Food and Drug Administration.Performed By: #### HIV12 #### [facility] [address] [place] [address] Dr. Benoit Rodriguez Age Collection Date18.1 [facility] Comment on above:Performed By: #### HIV12 #### [facility] [address] [place] [address] Dr. Benoit Rodriguezat, Age Based onUltrasThe Christ HospitalComment on above:Result Comment: 13:1 on 06/06/2022 Recalculations are not recommended when gestational dating by LMP and ultrasound are within 10 days.Performed By: #### HIV12 #### [facility] [address] [place] [address] Dr. Benoit Samuels Dep DiabetesNoNVeterans Health AdministrationComment on above:Performed By: #### HIV12 #### [facility] [address] [place] [address] Dr. Benoit DiggsInterpretationCommentCleveland Clinic Marymount HospitalComment on above: Result Comment: Interpretation: Screen Negative . This result is screen [...] Customer Services to discuss available options. The [place] [employer] recommends amniocentesis be offered to women age 35 and older.Performed By: #### HIV12 #### [facility] [address] [place] [address] Dr. Benoit DiggsMaternajoo Age at EDD[age] yrCleveland Clinic Marymount HospitalComment on above:Performed By: #### HIV12 #### [facility] [address] [address] [address] Benoit Iversoniplmally GestationNoNormalMercy Health St. Anne Hospitalment on above: Performed By: #### HIV12 #### [facility] [address] [address] [address] Benoit DiggsOSBR Risk 1 [id number] Memorial Hospital on above: Performed By: #### HIV12 #### [facility] [address] [address] [address] Benoit DiggsPDF.NormalThe Parkview HealthComment on above:Performed By: #### HIV12 #### [facility] [address] [address] [address] Bneoit MorrisCaucasianNDelaware County Hospital on above: Performed By: #### HIV12 #### [facility] [address] [place] [address] Dr. Benoit DiggsTest Results:NegativeNoClinton Memorial Hospital on above: Performed By: #### HIV12 #### [facility] [address] [place] [address] Dr. Benoit Ramirez B SURFACE ANTIGEN SCREENon 12-69-7436FDdVc ScreenNegative NormalNegativeThe [place] on above:Performed By: #### HIV12 #### [facility] [address] [place] [address] Dr. Benoit SerraTIS C VIRUS AB W/ REFLEX QUANTon 46-81-6396PXN AB<0.1Normal 0.0-0.9The [place] on above:Performed By: #### HIV12 #### [facility] [address] [place] [address] Dr. Benoit DiggsInterpretation:CommentMcKitrick Hospital on above:Result Comment: Negative Not infected with HCV, unless recent infection is suspected or other evidence exists to indicate HCV infection.Performed By: #### HIV12 #### [facility] [address] [place] [address] Dr. Benoit Metz 1 AND 2 WITH REFLEXon 60-74-0397RYG Screen 4th Generation wRfxNon-ReactiveNormalNon ReactiveThe [place] on above:Result Comment: HIV Negative HIV-1/HIV-2 antibodies and HIV-1 p24 antigen were NOT detected. There is no laboratory evidence of HIV infection.Performed By: #### HIV12 #### [facility] [address] [place] [address] Dr. Benoit KumarR QUANTon 66-33-1060Wefpp Plasma Reagin, QuantNon-Reactive NormalNonRea<1:1The [place] on above:Result Comment: Please Note: This test does not meet current guidelines for screening and diagnosis of syphilis. This test is intended for following treatment response in patients being treated for syphilis infection. To screen for syphilis infection, a reflex cascade that includes both RPR and a treponema-specific assay should be utilized, such as Treponema pallidum (Syphilis) Screening [place] (746061) or Rapid Plasma Reagin (RPR) Test With Reflex to Quantitative RPR and Confirmatory Treponema pallidum Antibodies (371271).Performed By: #### HIV12 #### [facility] [address] [place] [address] Dr. Benoit Figueroa AB IGGon 11-24-5262Vqfmrrk Antibodies, IgG3.22 index NormalImmune >0.99The [place] on above:Result Comment: Non- immune <0.90 Equivocal 0.90 - 0.99 Immune >0.99Performed By: #### CBC #### [facility] [address] [place] [address] Dr. Benoit Hampton PREG <14 WKSon 78-90-7035VO PREG <14 WKSEXAMINATION: US PREG <14 WKS HISTORY: Irregular periods [...] Electronically authenticated by: MYLENE SULLIVAN Date: 2022-06-06 22:25NoMer[facility] AUTO DIFFon 07-12-1930CHUA #0.1 103/ulNormal0.0-0.1The [facility] HealthComment on above:Performed By: #### CBC #### [facility] [address] [address] [address] Benoit DiggsBasophils/100 WBC (Bld)0.6 %Normal0.2-2.0The [facility] Comment on above:Performed By: #### CBC #### [facility] [address] [place] [address] Dr. Benoit Aleman #0.3 103/ulNormal0.0-0.7The [facility] HealthComment on above: Performed By: #### CBC #### [facility] [address] [place] [address] Dr. Benoit Krausosinophils/100 WBC (Bld)4.1 %Normal0.9-7.0The [facility] Comment on above:Performed By: #### CBC #### [facility] [address] [place] [address] Dr. Benoit Krausrythrocyte distribution width (RBC) [Ratio]13.9 %Lldcka96.0-15.0 The Parkview HealthComment on above:Performed By: #### CBC #### [facility] [address] [place] [address] Dr. Benoit DiggsHematocrit (Bld) [Volume fraction]36.0 %Evuwqx49.0-48.0The [facility]view HealthComment on above:Performed By: #### CBC #### [facility] [address] [place] [address] Dr. Benoit DiggsHemoglobin (Bld) [Mass/Vol]12.0 g/tRDbkzud61.0-16.0The [facility] HealthComment on above:Performed By: #### CBC #### [facility] [address] [place] [address] Dr. Benoit Amado #0.03 10e3/ulNormal0.00-0.03The [facility] HealthComment on above:Performed By: #### CBC #### [facility] [address] [place] [address] Dr. Benoit Amado %0.4 %Normal0.0-0.5The [facility]view HealthComment on above: Performed By: #### CBC #### [facility] [address] [place] [address] Dr. Benoit PantojaSarah #2.7 103/ulNormal1.2-3.8The [facility] HealthComment on above:Performed By: #### CBC #### [facility] [address] [place] [address] Dr. Benoit Pantojahocytes/100 WBC (Bld)33.2 %Hqeugf84.5-60.0The [facility] HealthComcaro center on above:Performed By: #### CBC #### [facility] [address] [place] [address] Dr. Benoit FuentesUAL DIFF REQNONormalThe [facility] HealthComment on above: Performed By: #### CBC #### [facility] [address] [place] [address] Dr. Benoit Lima (RBC) [Entitic mass]29.4 zbAljomo95.7-34.0The [facility] HealthComment on above:Performed By: #### CBC #### [facility] [address] [place] [address] Dr. Benoit Lima (RBC) [Mass/Vol]33.3 g/iUXchaay09.9-35.2The [facility] HealthComcaro center on above:Performed By: #### CBC #### [facility] [address] [place] [address] Dr. Benoit Lima (RBC) [Entitic vol]88.2 uOFttdui67.0-99.0The [facility]view HealthComment on above:Performed By: #### CBC #### [facility] [address] [address] [address] Benoit Castellano #0.5 103/ulNormal0.3-0.8The [facility] HealthComment on above:Performed By: #### CBC #### [facility] [address] [address] [address] Benoit Funezocytes/100 WBC (Bld)6.6 %Normal1.7-12.0The [facility] Comment on above:Performed By: #### CBC #### [facility] [address] [place] [address] Dr. Benoit Amaya #4.4 103/ulNormal1.4-6.5The [facility] HealthComment on above:Performed By: #### CBC #### [facility] [address] [place] [address] Dr. Benoit Herrerautrophils/100 WBC (Bld)55.1 %Wfgdxb68.0-75.0The Parkview HealthComment on above:Performed By: #### CBC #### [facility] [address] [place] [address] Dr. Benoit Pearllet mean volume (Bld) [Entitic vol]11.0 fLNormal9.5-13.5The Parkview HealthComment on above:Performed By: #### CBC #### [facility] [address] [place] [address] Dr. Benoit DiggsPLT225 103/wzAtxhth856-159Nga Parkview HealthComment on above: Performed By: #### CBC #### [facility] [address] [place] [address] Dr. Benoit DiggsRBC4.08 106/ulCritically low4.20-5.40The Parkview HealthComment on above:Performed By: #### CBC #### [facility] [address] [place] [address] Dr. Benoit DiggsWBC8.1 103/ulNormal4.0-11.0The Parkview HealthComment on above: Performed By: #### CBC #### [facility] [address] [address] [address] Benoit DiggsCULTURE URINEon 96-18-1726TFOWHBH URINECulture Observations: MODERATE GROWTH OF MIXED GENITAL RIZWAN. NO POTENTIAL PATHOGENS SEEN.NormalOhiohealth Pickerington Methodist HospitalComment on above:Performed By: #### URCX ####[facility] [address] [address]. Benoit Diggs GLYCOHEMOGLOBIN A1Con 79-13-7788TLX RECOMMENDATIONSEE BELOWNoCleveland ClinicComment on above:Result Comment: ADA RECOMMENDED LIMIT 4.0 - 6.0 ADA THERAPEUTIC TARGET < 7.0 ACTION SUGGESTED > 7.0Performed By: #### CBC #### [facility] [address] [place] [address] Dr. Benoit DiggsGlucose [Mass/Vol]105 mg/dLCleveland Clinic Marymount HospitalComment on above:Performed By: #### CBC #### [facility] [address] [place] [address] Dr. Benoit DiggsHbA1c (Bld) [Mass fraction]5.3 %Normal4.5-6.2[facility] Anne Hospitalment on above:Performed By: #### CBC #### [facility] [address] [place] [address] Dr. Benoit Flowers BOX TEST PT SEND OUTon 14-31-5378MREF TO REF LAB06/06/2022 [facility] on above:Performed By: #### HIV12 #### [facility] [address] [place] [address] Dr. Benoit DiggsTYPE AND SCREENon 71-27-0102OLMT AND SCREENNegativeNoCleveland ClinicComment on above:Performed By: #### TNS #### [facility] [address] [place] [address] Dr. Benoit DiggsPREDebi QUANT HCGon 71-26-1505GNU SBGHJ76347 mIU/mLNormalThe Parkview HealthComment on above:Performed By: #### CBC #### [facility] [address] [place] [address] Dr. Benoit Flowers [facility] Medical CenterComment on above: Result Comment: 5-50 0-1 WEEK 40-300 1-2 WEEKS 100-1,000 2-3 WEEKS 500-6,000 3-4 WEEKS 5,000-200,000 1-2 MONTHS 10,000-100,000 2-3 MONTHS 3,000-50,000 2ND TRIMESTER 1,000-50,000 3RD TRIMESTERPerformed By: #### CBC #### [facility] [address] [address] [address] Benoit Diggs Vital Signs Date TimeVital SignValuePerforming UnnyxqlswWkfwrgge88-73-0762 13:55-0400Body mass index (BMI) [Ratio]53.12 kg/k9Qvran Anita DO Work Phone: [phone] [place], [place] [address]Vwlbxjepno77-73-6315 13:55-0400Body qspwid432.52 kgCorey Anita DO Work Phone: [phone] [place], [place] [address]Lbftwaegbu27-64-6097 13:55-0400Diastolic blood tgffyaac40 mm[Hg]Jefferson Anita DO Work Phone: [phone] [place], [place] [address]Dnbpymlngk19-00-9072 13:55-0400Systolic blood mm[Hg]Jefferson Anita DO Work Phone: [phone]-[facility] HospitalWbutbiynwg50-08-6580 14:07-0400Body mass index (BMI) [Ratio]54 kg/m2Amy Vamsi LYNN Work Phone: [phone]-[facility] HospitalDwmelacstd80-57-6015 14:07-0400Body mjwelm695.64 kgAmy Vamsi PA Work Phone: [facility] HospitalAhnjdqbrpz29-99-0329 14:07-0400Diastolic blood rwdymofi66 mm[Hg]Gia LYNN Work Phone: [phone]-[facility] HospitalKtzyyzhdcj46-29-5269 14:07-0400Systolic blood zuyrcjmk213 mm[Hg]Gia LYNN Work Phone: [phone]-[facility] HospitalYftvksnhsc24-63-8808 13:59-0400Body mass index (BMI) [Ratio]53.17 kg/n2Rlvwv Anita DO Work Phone: [phone] [place], [place] [address]Btmoeflbvh30-01-0179 13:59-0400Body osfheh094.64 kgCorey Anita DO Work Phone: 1([phone] [place] [address]-19-2025 13:59-0400Diastolic blood gxbfpony23 mm[Hg]Jefferson Anita DO Work Phone: 1([phone] [place], [place] [address]Xwntnjwrvb68-64-6108 13:59-0400Systolic blood sybaeorx676 mm[Hg]Jefferson Anita DO Work Phone: 1([phone] [place], [place] [address]Ibcguzrxtx50-20-1781 14:05-0400Body mass index (BMI) [Ratio]53.51 kg/n1TjjxiFlushing Hospital Medical [facility]07-17-2025 14:05-0400Body weight 128.[address] [address]-17-2025 14:05-0400Diastolic blood cgokgpjm29 mm[Hg][facility]07-17-2025 14:05-0400Systolic blood blbvicjg399 mm[Hg][facility]04-16-2025 10:44-0400Body mass index (BMI) [Ratio] 52.91 kg/z4Yfkzp Anita DO Work Phone: [phone] [place], [place] [address]Mhxtseojlo30-74-5313 10:44-0400Body rukzur886.01 kgCorey Anita DO Work Phone: [phone])199-[address] [place], [place] [address]Ecuhyxzooh63-66-2115 10:44-0400Diastolic blood tjbydomz48 mm[Hg]Jefferson Anita DO Work Phone: [phone] [place] [address]-16-2025 10:44-0400Systolic blood rmesypgy679 mm[Hg]Jefferson Anita DO Work Phone: [phone] [place], [place] [address]Obwvyfifpm33-89-6643 13:48-0400Body mass index (BMI) [Ratio]52.93 kg/a5Kccbg Anita DO Work Phone: [phone] [place], [place] [address]Ktyjmrkqir84-29-8716 13:48-0400Body cmukta308.06 kgCorey Anita DO Work Phone: [facility] HospitalYtbwrhkfyj61-28-9761 13:48-0400Diastolic blood mm[Hg]Jefferson Anita DO Work Phone: [facility] HospitalAkxktiwbcy52-19-9775 13:48-0400Systolic blood ekinilqe645 mm[Hg]Jefferson Anita DO Work Phone: [facility] HospitalFtsrctltko62-08-1517 10:54-0500Body mass index (BMI) [Ratio]52.93 kg/m2Gia Agustin LEAH Work Phone: [facility] HospitalQpmldgesrp14-87-7719 10:54-0500Body dbdyqn786.06 kgGia Schmidmarion LYNN Work Phone: [facility] HospitalRtrqldbkcu92-79-4351 10:54-0500Diastolic blood pvurneyo37 mm[Hg]Gia Schmidmarion LYNN Work Phone: [facility] HospitalYvlgdzzfle78-00-5541 10:54-0500Systolic blood srmbsequ106 mm[Hg]Gia Agustin LEAH Work Phone: [facility] HospitalBidgauskgw08-01-4887 12:56-0500Body mass index (BMI) [Ratio]53.09 kg/l4Keifl Anita DO Work Phone: [facility] HospitalYivtvvfebw53-12-8886 12:56-0500Body uymsaf428.46 kgCorey Anita DO Work Phone: [facility] HospitalZabfgehyhs25-13-9073 12:56-0500Diastolic blood pooalryw90 mm[Hg]Jefferson Anita DO Work Phone: [facility] HospitalAujueglard86-42-3191 12:56-0500Systolic blood hnpejpwa569 mm[Hg]Jefferson Anita DO Work Phone: [facility] HospitalAbnbnqpnrp56-00-7750 08:42-0500Body mass index (BMI) [Ratio]53.55 kg/u9Epalv Anita DO Work Phone: [facility] HospitalAwvrvgujsv25-99-9582 08:42-0500Body wpafmf504.55 kgCorey Anita DO Work Phone: [facility] HospitalFafuxrcksa66-24-0609 14:06-0500Diastolic blood yzvyjhfn42 mm[Hg]Manuel Noel MD Work Phone: [phone]11-19-2024 14:06-0500 Heart rate77 /minManuel Noel MD Work Phone: [phone])[address] [place], [place] [address]11-19-2024 14:06-0500 Respiratory rate18 /minManuel Noel MD Work Phone: [phone] [place], [place] [address]11-19-2024 14:06-0500 SaO2% (BldA) [Mass fraction]98 %Manuel Noel MD Work Phone: [phone] [place], [place] 6[address]11-19-2024 14:06-0500 Systolic blood zxpleiep042 mm[Hg]Manuel Noel MD Work Phone: [phone])[address] [place], [place] [address]11-19-2024 12:39-0500 Body .94 cmManuel Noel MD Work Phone: [phone] [place], [place] [address]11-19-2024 12:39-0500 Body kgManuel Noel MD Work Phone: [phone])[address] [place], [place] [address]11-05-2024 09:31-0500 Body .94 cmManuel Noel MD Work Phone: [phone] [place], [place] [address]11-05-2024 09:31-0500 Body mass index (BMI) [Ratio]53.4 kg/m2Manuel Noel MD Work Phone: 1(758)[address]11-05-2024 09:31-0500 Body khswaf233.16 kgManuel Noel MD Work Phone: [phone] [place], [place] [address]09-28-2022 02:06-0400 Body kjmotx307.6992 kgDR MISCTKettering Health – Soin Medical CenterComment on above: Performed By: #### HIV12 #### [facility] [address] [address] [address] Benoit Diggs Encounters Encounter DateEncounter TypeCare ProviderFacilityStart: 08-23-2025 End: 58-44-0883zooumdkwckOWWLJLCPKettering Health Behavioral Medical Centertart: 08-23-2025 End: 00-87-2038Opxdwyvhw department patient visitMARKing's Daughters Medical Center Ohiotart: 08-10-2025 End: 54-03-9450oicmntcnwgBYCTM FAZIONot AvailableStart: 08-02-2025 End: 35-87-1828Ryzntx flowsheetCorey Anita DO Work Phone: [facility] OBGYNStart: 08-02-2025 End: 66-02-2878Fiyrwm flowsheetCorey Anita DO Work Phone: [facility] OBGYNStart: 08-02-2025 End: 61-24-8432Ygpxbn outpatient visit 15 minutesCorey Anita DO Work Phone: [facility] OBGYNComment on above:Second trimester ([facility]); 19 weeks gestation of ([facility]); Screening, , for anatomic survey ([facility]); LGSIL of cervix of undetermined significanceStart: 08-02-2025 End: 26-29-5236bmikgpbfsoVQPJS FAZIONot AvailableStart: 07-25-2025 End: 34-88-2936Epgerdpst Result EncounterGia LYNN Work Phone: NOMS External Department UnsolicitedStart: 07-25-2025 End: 91-38-4198Rjagigxez Result EncounterGia LYNN Work Phone: noMS External Department UnsolicitedStart: 07-05-2025 End: 15-32-0053Jxhmux Epi LYNN Work Phone: [facility]BGYNStart: 07-05-2025 End: 13-09-3015Ihvzyp Epi LYNN Work Phone: [facility] [place] OBGYNStart: 07-05-2025 End: 08-85-0460Sgnzpocb Result EncounterGia LYNN Work Phone: noms External Department UnsolicitedStart: 07-05-2025 End: 75-12-5939Kfrxzm outpatient visit 15 minutesAmy Vamsi LYNN Work Phone: noms Emma OBGYNComment on above:15 weeks gestation of ([facility]); Second trimester ([facility]); Exposure to STD; Vaginal discharge; NauseaStart: 07-05-2025 End: 15-94-6850qiurarjkrfFLH Chrystal AvailableStart: 06-07-2025 End: 53-97-4498Aqqhso flowsheetCorey Anita DO Work Phone: NOZX [place] OBGYNStart: 06-07-2025 End: 86-60-8158Mfgxhv flowsheetCorey Anita DO Work Phone: NOLW [facility] OBGYNStart: 06-07-2025 End: 25-65-2488Sivitypeg Result EncounterCorey Anita DO Work Phone: noms External Department UnsolicitedStart: 06-07-2025 End: 54-63-3260Yvpqkq outpatient visit 15 minutesCorey Anita DO Work Phone: noms Emma OBGYNComment on above:First trimester ([facility]); 11 weeks gestation of ([facility]); Right ovarian cyst; Nausea; PCOS (polycystic ovarian syndrome)Start: 06-07-2025 End: 66-37-7518gthchsglmnACTZN FAZIONot AvailableStart: 05-24-2025 End: 11-75-0986Gelzibvzs Result EncounterCorey Anita DO Work Phone: noms External Department UnsolicitedStart: 05-24-2025 End: 93-76-5626Nbobaudqo Result EncounterCorey Anita DO Work Phone: noms External Department UnsolicitedStart: 05-05-2025 End: 27-04-3063Vuqmpd outpatient visit 5 minutesFazio Nurse Noms Bcp ObNOMS BCP OBComment on above:GA: 7d3hSjazq: 05-05-2025 End: 90-02-6000uoeyjlyhqdUIAMC FAZIONot AvailableStart: 04-14-2025 End: 31-21-1256Ehdvojjcw department patient visitCleveland Clinic Mentor Hospitaltart: 02-09-2025 End: 43-76-6526Npfmrbomp Result EncounterGeneric External Data ProviderNOMS External Department UnsolicitedStart: 02-09-2025 End: 15-44-3014Qzebbvpfk Result EncounterGeneric External Data ProviderNOMS External Department UnsolicitedStart: 02-02-2025 End: 03-37-2922Jjzzvo flowsheetCorey Anita DO Work Phone: NOMS BCP OBStart: 02-02-2025 End: 67-34-1633Qxkqab flowsheetCorey Anita DO Work Phone: NOMS BCP OBStart: 02-02-2025 End: 23-22-4722Pdfhoj outpatient visit 15 minutesCorey Anita DO Work Phone: NOMS BCP OBComment on above:Encounter to discuss test results; Elevated TSHStart: 02-02-2025 End: 35-45-0952jibormurbeDDCCN FAZIONot AvailableStart: 01-17-2025 End: 19-90-0274Yrgqktm encounter procedureCorey Anita DO Work Phone: NOM[facility] BCP OBComment on above:LGSIL of cervix of undetermined significanceStart: 01-17-2025 End: 27-68-1047sdcqvqnrmuNaxc Naderer MD Work Phone: [facility] Work Phone: Start: 01-17-2025 End: 58-48-9975Thawenpz ReferredManuel Noel MD Work Phone: [facility]-LAB Path Spec [place] HospStart: 01-12-2025 End: 99-93-3183cmvqtxbensGIDRQ FAZIONot AvailableStart: 01-03-2025 End: 93-18-8615snyzynyznsIxbm Naderer MD Work Phone: [facility] Work Phone: Start: 01-03-2025 End: 25-04-1170Zouwctlf ReferredManuel Noel MD Work Phone: [facility]-LAB Path Spec Emma HospStart: 12-22-2024 End: 66-54-3272Svafms flowsEduardo LYNN Work Phone: noms BCP OBStart: 12-22-2024 End: 93-27-7541Lricex Epi LYNN Work Phone: noms BCP OBStart: 12-22-2024 End: 03-71-7756Myhttegcr Result EncounterGeneric External Data ProviderNOMS External Department UnsolicitedStart: 12-22-2024 End: 82-05-1413Winnfwp encounter procedureGia LYNN Work Phone: NOMS HealthcareStart: 12-22-2024 End: 31-56-7824Rrewrhcu preventive med est patient 18-39 yrsGia LYNN Work Phone: NODE BCP OBComment on above: control counseling (Primary Dx); Well woman exam with routine gynecological exam; Pelvic pain in femaleStart: 12-22-2024 End: 91-76-0901noxyxgyvqrORI RAMEYNot AvailableStart: 12-02-2024 End: 18-26-3208Ijeenzn encounter procedureCorey Anita DO Work Phone: NOMS BCP OBComment on above:Encounter for removal of etonogestrel implantStart: 12-02-2024 End: 27-03-6493qyjzsnyfwwLNKKD FAZIONot AvailableStart: 11-30-2024 End: 73-01-4926oixkytlrrgJGXUP FAZIONot AvailableStart: 11-11-2024 End: 59-47-2471Mgpjzr flowsheetCorey Anita DO Work Phone: noms BCP OBStart: 11-11-2024 End: 10-29-1129Rraspv flowsheetCorey Anita DO Work Phone: noms BCP OBStart: 11-11-2024 End: 96-84-8710Kdstkxgwy Result EncounterGeneric External Data ProviderNOMS External Department UnsolicitedStart: 11-11-2024 End: 15-80-5220Negekb outpatient visit 15 minutesCorey Anita DO Work Phone: noms [facility] OBComment on above:Right ovarian cyst; Nausea; PCOS (polycystic ovarian syndrome)Start: 11-11-2024 End: 27-86-5707lhnxjhpyljBGZSO FAZIONot AvailableStart: 89-89-9781Gkz-patient / Non-visitMarc Bert MATSON Work Phone: [facility] Work Phone: Start: 09-07-2024 End: 84-56-5980Lvnblvxht to same day surgery centerManuel Noel MD Work Phone: [facility] Work Phone: Start: 09-07-2024 End: 96-96-5460xqvxxkvcheBouj Naderer MD Work Phone: [facility] Work Phone: Start: 08-28-2024 End: 08-56-5292Bflrpawot department patient visitMARKing's Daughters Medical Center Ohiotart: 08-24-2024 End: 55-72-2771Gozqgzn encounter procedureManuel Noel MD Work Phone: [facility] Work Phone: Start: 07-01-2024 End: 08-07-4726Slspfoubq Result EncounterGeneric External Data ProviderNOMS External Department UnsolicitedStart: 07-01-2024 End: 86-52-8266Brhyqunzk Result EncounterGeneric External Data ProviderNOTX External Department UnsolicitedStart: 20-37-6195Izt-patient / Non-visitMarallison Noel MD Work Phone: [facility] Work Phone: Start: 06-03-2024 End: 50-95-1970Gehbsgzgw Result EncounterMarallison Noel MD Work Phone: [facility] External Department UnsolicitedStart: 06-03-2024 End: 63-11-4715Ocjbajite Result EncounterMarallison Noel MD Work Phone: noTX External Department UnsolicitedStart: 03-02-2024 Patient encounter procedureGeneric ProviderNOTX HealthcareStart: 12-23-2022 Encounter for general adult medical examination without abnormal findingsDR MANUEL DEGROOTMount Carmel Health Systemtart: 12-21-2022 End: 39-89-9750trvvrofofrVN MANUEL A NADERERFacility:J5Jzbzj: 12-21-2022 End: 44-57-8247Oivvxujre for general adult medical examination without abnormal findingsDR MANUEL A NADERERFacility:Z8Uwklh: 12-01-2022 End: 60-34-3258Kdwoluecnt and management of inpatientDR MANUEL NOEL Facility:N2Coqjz: 11-29-2022 End: 81-67-8172tydhexqqrvVH MANUEL A NADERERFacility:A1Yakls: 04-19-4761Mhqunckkvk and management of inpatientDR MALIK GABRIEL .Facility:X6Ughzj: 11-18-2022 End: 06-12-9924rozilevzieIU MANUEL A NADERERFacility:F3Tddiz: 09-22-2022 End: 33-25-5227cnkxhwitjoZMELV PARKERFacility:M9Ojclx: 09-09-2022 End: 47-51-4773yhlstimqveYV MANUEL A NADERERFacility:A2Msdit: 08-07-2022 End: 90-08-4077hhvbkkfxieXF MANUEL A NADERERFacility:Y3Aupyc: 08-06-2022 End: 23-66-2889zjacqpworiJK MANUEL A NADERERFacility:O7Erokv: 07-25-2022 End: 88-50-1498wdcvwflfjaTZ JEFFERSON HOWARD .Facility:L9Samdz: 07-13-2022 End: 23-53-9288msgcfofkleDZ DESHAWN MARKS .Facility:D8Xvhvy: 07-11-2022 End: 67-23-8447aiqkkvkhnlXX MANUEL Souza NADERERFacility:G8Wnopr: 06-06-2022 End: 21-69-6215jgjuzuhwsvXI MANUEL Harley NADERERFacility:A4Aozny: 04-16-2022 End: 07-58-9265xveybkmuzdCX DOCTOR MISCFacility:H1 Procedures DateProcedureProcedure DetailPerforming ClinicianStart: 47-67-4125PDK, SERUM, OPEN SPINA BIFIDAAmy Vamsi LYNN Work Phone: Start: 46-52-2998Regtg dip stick/tablet rgnt non-auto w/o micrscpAmy Vamsi LYNN Work Phone: Start: 48-43-5737XVGJYBZXY VAGINITIS (HTRX)Gia LYNN Work Phone: Start: 11-42-6471AHZ THYROID STIM HORMONECorey Anita DO Work Phone: Start: 19-01-7031FMX TESTCorey Anita DO Work Phone: Start: 05-05-2025 End: 31-73-9707Wchcu dip stick/tablet rgnt non-auto w/o micrscpCorey Anita DO Work Phone: Start: 08-14-0176OBW THYROID STIM HORMONECorey Anita DO Work Phone: Start: 38-21-0041Fisnv dip stick/tablet rgnt non-auto w/o micrscpCorey Anita DO Work Phone: Start: 01-77-9411Itcaa [facility] Centerallison Noel MD Work Phone: Start: 23-68-8803TNH,APTIMA HPV,AGE GDLNAmy Vamsi LYNN Work Phone: Start: 81-78-5502YKE INSERTION/REMOVAL OF CONTRACEPTIVE CAPSULECorey Anita DO Work Phone: Start: 34-13-3885GMK CBC WITH AUTO DIFFCorey Anita DO Work Phone: Start: 47-89-1176EwqicypzqnqseipdklgvpuzrhsHtpa Bert MATSON Work Phone: Start: 57-88-9415DJAT TRICHOMONAS/WET PREPGeneric External Data ProviderStart: 72-32-2028IL LUMBAR SPINE 2 OR 3VMarc Bert MATSON Work Phone: Start: 58-64-2878Dvciyudomoe of Nonautologous Red Blood Cells into Peripheral Vein, Percutaneous ApproachDR DOCTOR MISCStart: 77-72-5804Pxalegvn of Products of Conception, External ApproachDR DOCTOR MISC Start: 79-30-4335Zwwodyzy of Amniotic Fluid, Therapeutic from Products of Conception, Via Natural or Artificial OpeningDR DOCTOR MISC Plan of Treatment DateCare ActivityDetailAuthorStart: 08-31-2025 End: 60-35-7603Crtrwzr encounter uxutcfiau58/12/2025 1:40 PM EST Routine NOMMaribell WORLEY [address] [place], [id number] Jefferson Howard, DO [address] [place] [address] [facility] Emma OBGYNStart: 08-10-2025 End: 59-15-3176Dpjulnekkpsl / ancillary services zzkxzhgoiy65/22/2025 11:00 AM EDT Ancillary Procedure CESAR WORLEY [address] [place] [id number] [facility] OBGYNStart: 08-02-2025 End: 23-72-0865NO for pregnancyUS OB 14+ weeks anatomy scan Imaging Routine Screening, , for anatomic survey ([facility]) Expected: 08/02/2025, Expires: 11/02/2025[facility] Work Phone: Yomment on above:Expected: 08/02/2025, Expires: 11/02/2025Start: 08-02-2025 End: 61-75-5218Jageqrc encounter procedureNOMS BCP OBStart: 07-05-2025 End: 76-38-1295Ylwwe fetoprotein, maternalAlpha fetoprotein, maternal Lab Routine 15 weeks gestation of ([facility]) Second trimester ([facility]) Expected: 07/05/2025 (Approximate), Expires: 08/04/2025[facility] Comment on above:Expected: 07/05/2025 (Approximate), Expires: 08/04/2025Start: 07-05-2025 End: 52-33-8753Lnriivt encounter procedureNOMS Cambridge OBGYNComment on above: ArrivedStart: 42-87-8851IRMRR-19 Vaccine ( season)COVID-19 Vaccine ( season)NOM[facility] HealthcareStart: 30-14-5658Vkwejfafl vaccinationNOMS HealthcareStart: 06-07-2025 End: 06-16-4976Okjndmm encounter procedureNOMS BCP OBComment on above:Arrived Start: 05-05-2025 End: 57-69-5441QXR/RhABO/Rh Lab Routine Missed menses , unspecified gestational age ([facility]) Expected: 05/05/2025 (Approximate), Expires: 05/05/2026NOT[facility] HealthcareComment on above:Expected: 05/05/2025 (Approximate), Expires: 05/05/2026Start: 05-05-2025 End: 26-92-6159Xxrnl type and Indirect antibody screen panel - BloodType and screen Lab Routine Missed menses , unspecified gestational age ([facility]) Expected: 05/05/2025 (Approximate), Expires: 05/05/2026[facility] Healthcare Work Phone: Uomment on above:Expected: 05/05/2025 (Approximate), Expires: 05/05/2026Start: 05-05-2025 End: 71-42-7212Sgwhp of abuse panel - Urine by Screen methodRapid drug screen, urine Lab Routine , unspecified gestational age ([facility]) Encounter for supervision of normal first in first trimester ([facility]) Expected: 05/05/2025 (Approximate), Expires: 05/05/2026NOT[facility] HealthcareComment on above: Expected: 05/05/2025 (Approximate), Expires: 05/05/2026Start: 05-05-2025 End: 14-49-8275Nkbgupenkcr [Units/volume] in Serum or PlasmaTSH Lab Routine Thyroid disease Expected: 05/05/2025 (Approximate), Expires: 05/05/2026NOT[facility] HealthcareComment on above:Expected: 05/05/2025 (Approximate), Expires: 05/05/2026Start: 02-02-2025 End: 81-39-3768Eqflozt encounter procedureNOMS [facility] OBComment on above:Arrived Start: 01-17-2025 End: 97-39-5646XvwdfvulpmFkimodtjer Procedures Routine LGSIL of cervix of undetermined significance Expected: 01/17/2025 (Approximate), Expires: 01/17/2026[facility] Work Phone: comment on above:Expected: 01/17/2025 (Approximate), Expires: 01/17/2026Start: 01-12-2025 End: 05-96-4454Oyumytsmhteq / ancillary services acasqhehgx64/26/2025 1:00 PM EDT Ancillary Procedure [facility] BCP OB [address] [place] [address] [place] [address] NOMS BCP OBStart: 05-86-1401Tjygsnis identified in Urine by CultureUrine Memorial Hospitaltart: 78-23-7866Bdhqr OhioHealthtart: 12-22-2024 End: 28-19-5909VC PelvisUS Pelvis w/ TV Imaging Routine Pelvic pain in female Expected: 12/22/2024, Expires: 12/22/2025NOTX HealthcareComment on above: Expected: 12/22/2024, Expires: 12/22/2025Start: 12-22-2024 End: 47-09-7326Wtejicm encounter procedureNOMS [facility] OBComment on above:Arrived Start: 12-02-2024 End: 85-79-8545Akfbefe encounter qwlnqbcyu28/13/2025 9:30 AM EST Procedure Visit [facility] [address] [facility] [place] [id number] Jefferson Howard, DO [address] [place] [address] [facility] OBStart: 11-30-2024 End: 87-04-0175Eruypyztgjuv / ancillary services xtiadvccrk77/11/2025 2:00 PM EST Ancillary Procedure [facility] OB [address] [place] [id number] [facility] OBStart: 11-11-2024 End: 89-14-3745GXMTSXBC Lab Routine Right ovarian cyst PCOS (polycystic ovarian syndrome) Expected: 11/11/2024 (Approximate), Expires: 11/11/2025NOTX Healthcare Comment on above:Expected: 11/11/2024 (Approximate), Expires: 11/11/2025Start: 11-11-2024 End: 48-02-5427ZR PelvisUS Pelvis w/ TV Imaging Routine Right ovarian cyst PCOS (polycystic ovarian syndrome) Expected: 11/11/2024, Expires: 11/11/2025NOTX HealthcareComment on above:Expected: 11/11/2024, Expires: 11/11/2025Start: 11-11-2024 End: 38-33-5137Npcgjun encounter pgbdaxbkn70/23/2025 8:40 AM EST Office Visit [facility] [address] [facility] [place] [id number] Jefferson Howard, DO [address] [place] [address] ArrivedNOWATSONVILLE COMM[facility] [place] OBComment on above:ArrivedStart: 08-43-6778HfjztezsrCoshocton Regional Medical Centertart: 81-74-0947Eebrbplkz vaccinationInfluenza Vaccine (#1)[facility] HealthcareStart: 22-64-9459Xkmypxgva B Vaccines (1 of 3 - 19+ 3-dose series)Hepatitis B Vaccines (1 of 3 - 19+ 3-dose series)[facility] HealthcareStart: [id number] Vaccine: Pediatrics (0 to 5 Years) and At-Risk Patients (6 to 64 Years) (1 of 2 - PCV)Pneumococcal Vaccine: Pediatrics (0 to 5 Years) and At-Risk Patients (6 to 64 Years) (1 of 2 - PCV) [facility] HealthcareStart: 90-46-1036XCP Vaccines (1 - 3-dose series)HPV Vaccines (1 - 3-dose series)[facility] HealthcareStart: 39-73-5069[place] of varicella vaccination Varicella Vaccines (1 of 2 - 13+ 2-dose series)NOM HealthcareStart: 2007 DTaP/Tdap/Td Vaccines (1 - Tdap)DTaP/Tdap/Td Vaccines (1 - Tdap)[facility] Start: 46-33-9541GYL Vaccines (1 of 1 - Standard series)MMR Vaccines (1 of 1 - Standard series)NOM HealthcareBacteria identified in Urine by CultureUrine culture Microbiology Routine Missed menses Ordered: 05/05/2025[facility] Comment on above:Ordered: 05/05/2025BC W Auto Differential panel - BloodCBC and differential Lab Routine Right ovarian cyst PCOS (polycystic ovarian syndrome) Ordered: 11/11/2024[facility] HealthcareComment on above:Ordered: 11/11/2024BC W Auto Differential panel - BloodCBC and differential Lab Routine Missed menses , unspecified gestational age ([facility]) Ordered: 05/05/2025[facility] HealthcareComment on above:Ordered: 05/05/2025HLAMYDIA TRACHOMATIS (GENITO/STI) CHLAMYDIA TRACHOMATIS (GENITO/STI) Lab Routine Exposure to STD Ordered: 07/05/2025[facility] HealthcareComment on above:Ordered: 07/05/2025ytology Cervical or vaginal smear or scraping studyPap Smear Pathology and Cytology Routine Well woman exam with routine gynecological exam Ordered: 12/22/2024[facility] Work Phone: comment on above:Ordered: 12/22/2024ytology Cervical or vaginal smear or scraping studyPap Smear Pathology and Cytology Routine LGSIL of cervix of undetermined significance Ordered: 08/02/2025[facility] Healthcare Comment on above:Ordered: 08/02/20252104NJNO-vpavsghHQVH-yhelgqh Lab Routine Right ovarian cyst PCOS (polycystic ovarian syndrome) Ordered: 11/11/2024[facility] HealthcareComment on above:Ordered: 11/11/2024Follicle stimulating hormone Follicle stimulating hormone Lab Routine Right ovarian cyst PCOS (polycystic ovarian syndrome) Ordered: 11/11/2024[facility] HealthcareComment on above:Ordered: 11/11/2024hCG, quantitative, pregnancyhCG, quantitative, Lab Routine Right ovarian cyst PCOS (polycystic ovarian syndrome) Ordered: 11/11/2024[facility] Healthcare Work Phone: comment on above:Ordered: 11/11/2024Hemoglobin A1c/Hemoglobin.total in BloodHemoglobin A1c Lab Routine Right ovarian cyst PCOS (polycystic ovarian syndrome) Ordered: 11/11/2024[facility] HealthcareComment on above:Ordered: 11/11/2024Hemoglobin A1c/Hemoglobin.total in BloodHemoglobin A1c Lab Routine Missed menses , unspecified gestational age ([facility]) Ordered: 05/05/2025[facility] HealthcareComment on above:Ordered: 05/05/2025Hepatitis B virus surface Ag [Presence] in Serum or Plasma by ImmunoassayHepatitis B surface antigen Lab Routine Missed menses , unspecified gestational age ([facility]) Ordered: 05/05/2025[facility] HealthcareComment on above:Ordered: 05/05/2025Hepatitis C virus Ab [Presence] in Serum or Plasma by Immunoassay Hepatitis C antibody Lab Routine Missed menses , unspecified gestational age ([facility]) Ordered: 05/05/2025[facility] HealthcareComment on above: Ordered: 05/05/2025HIV-1/HIV-2 antigen/antibody combination immunoassayHIV-1 and HIV-2 antibodies Lab Routine Missed menses , unspecified gestational age ([facility]) Ordered: 05/05/2025[facility] HealthcareComment on above:Ordered: 05/05/2025Luteinizing hormoneLuteinizing hormone Lab Routine Right ovarian cyst PCOS (polycystic ovarian syndrome) Ordered: 11/11/2024[facility] HealthcareComment on above:Ordered: 11/11/2024Neisseria gonorrhoeae DNA [Presence] in Unspecified specimen by RANDOLPH with probe detectionNeisseria gonorrhea DNA probe, direct Lab Routine Exposure to STD Ordered: 07/05/2025[facility] HealthcareComment on above: Ordered: 07/05/2025Patient EducationEsophagitis Know your [facility] Work Phone: ProlactinProlactin Lab Routine Right ovarian cyst PCOS (polycystic ovarian syndrome) Ordered: 11/11/2024[facility] HealthcareComment on above:Ordered: 11/11/2024Reagin Ab [Presence] in Serum by RPRRPR Lab Routine Missed menses , unspecified gestational age ([facility]) Ordered: 05/05/2025[facility] HealthcareComment on above:Ordered: 05/05/2025Removal non- biodegradable drug delivery implantRemove drug implant device Procedures Routine Encounter for removal of etonogestrel implant Ordered: 12/02/2024[facility] Work Phone: comment on above:Ordered: 12/02/2024Rubella antibody, IgGRubella antibody, IgG Lab Routine Missed menses , unspecified gestational age ([facility]) Ordered: 05/05/2025[facility] HealthcareComment on above: Ordered: 05/05/2025SURESWAB(R) ADVANCED VAGINITIS PLUS, TMASURESWAB(R) ADVANCED VAGINITIS PLUS, TMA Pathology and Cytology Routine Vaginal discharge Ordered: 0 07/05/2025[facility] Work Phone: comment on above:Ordered: 07/05/2025Thyrotropin [Units/volume] in Serum or PlasmaTSH Lab Routine Right ovarian cyst PCOS (polycystic ovarian syndrome) Ordered: 11/11/2024[facility] HealthcareComment on above:Ordered: 11/11/2024Thyrotropin [Units/volume] in Serum or PlasmaTSH Lab Routine Elevated TSH Ordered: 02/02/2025[facility] Healthcare Work Phone: comment on above:Ordered: 02/02/2025Thyroxine (T4) free [Mass/volume] in Serum or PlasmaT4, free Lab Routine Right ovarian cyst PCOS (polycystic ovarian syndrome) Ordered: 11/11/2024[facility] HealthcareComment on above:Ordered: 11/11/2024Thyroxine (T4) free [Mass/volume] in Serum or PlasmaT4, free Lab Routine Elevated TSH Ordered: 02/02/2025[facility] HealthcareComment on above:Ordered: 02/02/2025 Payers DatePayer CategoryPayerPoly [id number] [id number] 2021Medicaid (Managed Care) [id number] 2.16.840.1.435772.3.57[id number] 2.16.840.1.678776.3.57[id number] 2.16.840.1.070844.3.57[id number] 2.16.840.1.102207.3.57[id number] 2.16.840.1.734283.3.57[id number] 2.16.840.1.667520.3.57[id number] 2.16.840.1.760622.3.57[id number] 2.16.840.1.486269.3.57[id number] 2.16.840.1.179585.3.57[id number] 2.16.840.1.718468.3.579.[id number] 2.16840.1.255086.3.579.[id number] 2.16.840.1.263084.3.57[id number] 2.840.1.223603.3.579.2.50606-40-7136Kqxkhqh3813333 2.840.1.793939.3.57[id number] 2.840.1.801117.3.579.2.9[id number] 2.840.1.664120.3.579.2.49[id number] 2.840.1.425934.3.579.2.834538-38-6139Vqlcqwc37993934 2.840.1.830306.3.579.2.539862-70-7513Yqcarss30649136 2.840.1.547193.3.579.2.903023-76-2715Syxorrr29572965 2.840.1.049634.3.579.2.219848-47-2837Pnkxjul9930524 2.840.1.404657.3.579.2.331923-35-5180Sgfzlpu5853917 2.840.1.652630.3.579.2.570460-94-6558Arrifoe0661032 2.840.1.254037.3.579.2.258053-24-0848Etwudwt1249936 2.840.1.981741.3.57[id number] 2.840.1.974537.3.579.2.713570-72-8651Yfmuedl2206825 2.16.840.1.244991.3.579.2.41[id number] 2.16.840.1.978538.3.57[id number] 2.16.840.1.697122.3.579.2.[id number] 2.16.840.1.026279.3.579.[id number] 2.16.840.1.097905.3.579.2.5[id number] 2.16.840.1.423065.3.579.2.858324-81-7331Muyt-[id number] [id number] 2.16.840.1.5[id number] 2.16.840.1.325494.3.579.2.231Gnborku73136415 2.16.840.1.820900.3.579.2.531 [id number] 2.16.840.1.321998.3.579.2.531 Social History DateTypeDetailFacilityStart: 03-02-2024 End: 81-63-6251Kbvdmvi smoking status NHISNever smoked tobacco (finding) [facility]: 17-00-8602DzlLkiwmpt sex unknown (finding)[facility]: 71-18-8963Tdd Assigned At FemaleCoshocton Regional Medical Centertart: 83-33-3436Ixcnrfm use and exposure Smokeless tobacco non-userNOMS HealthcareStart: 03-02-2024 End: 99-07-6215Zmfikkv of Social functionNOMS HealthcareStart: 03-02-2024 End: 36-47-7001Pmjeye connection and isolation panelNOMS HealthcareStart: 38-72-7899Ywtyzg Member of Clubs or OrganizationsNot on fileSALT LAKE REG[facility]AL [facility] HealthcareHow often to you have a drink containing alcohol?2-4 times a monthNOTX HealthcareHow many standard drinks containing alcohol do you have on a typical day?1 or 2NOMS HealthcareHow often do you have 6 or more drinks on 1 occasion?NeverNOMS HealthcareIn the past 12 months, was there a time when you were not able to pay the mortgage or rent on time?NoNOMS HealthcareStart: 11-82-9357Ivs assigned at birthNot on fileSALT LAKE REG[facility]AL [facility] HealthcareStart: 01-04-2025 End: 36-28-2387GwyWaxibi (finding)[facility] Centertart: 88-95-4434AtiynfojjOHVQ Healthcare Medical Equipment Procedure CodeEquipment CodeEquipment Original TextEquipment IdentifierDatesERCP (endoscopic retrograde cholangiopancreatography)STENT PANCREATIC ZIMMON 4FRFDA Start: 82-26-4916VSPQ (endoscopic retrograde cholangiopancreatography)STENT PANCREATIC ZIMMON 4FRFDAStart: 23-40-3983RTHF (endoscopic retrograde cholangiopancreatography)STENT PANCREATIC ZIMMON 4FRFDAStart: 11-20-2017 Goals DatePatient GoalDesired Activity/State Clinical Notes 08-24-2024 to 08-02-2025 Note Date & PrdtHoppPyquzboe21-08-3808 History of Present illness Narrative* Shelley Dang, WAX BLEACHER - 08/02/2025 1:40 PM EDT Reason for Appointment: Patient ID: Jes Romero is a 24 y.o. female who presents [...] 6 hours as needed for nausea. ALLERGIES Allergies[1] PROBLEMS Active Ambulatory Problems Diagnosis Date Noted Major depressive disorder, recurrent episode, mild 03/02/2024 Gastroesophageal reflux disease without esophagitis 03/02/2024 Mild intermittent asthma without complication (HCC) 03/02/2024 Allergic rhinitis due to pollen 03/02/2024 Morbid obesity due to excess calories ([facility]) 03/02/2024 Annual physical exam 03/02/2024 Amenorrhea 04/28/2024 Right sided sciatica 06/01/2024 Resolved Ambulatory Problems Diagnosis Date Noted Generalized abdominal pain 03/02/2024 No Additional Past Medical History HISTORY PAST MEDICAL HISTORY SOCIAL HISTORY Medical History[2] Social History Tobacco Use Smoking status: Never Smokeless tobacco: Never Substance Use Topics Alcohol use: Not on file Drug use: Not on file FAMILY HISTORY Family History[3] SURGICAL HISTORY Surgical History[4] REVIEW OF SYSTEMS Review of Systems: Review [...] nursing note reviewed. Exam conducted with a truck unloader present. Vitals: Estimated body mass index is 53.12 kg/m as calculated from the following: Height as of 24: 5' 1 . Weight as of this encounter: 281 lb 1.9 oz. BP: 102/62 Patient's last menstrual period was 03/08/2025. ASSESSMENT & PLAN ICD-10-CM 1. Second trimester ([facility]) Z34.92 2. 19 weeks gestation of ([facility]) Z3A.19 CANCELED: POCT urinalysis dipstick manually resulted 3. Screening, , for anatomic survey ([facility]) Z36.89 OB 14+ weeks anatomy scan 4. LGSIL of cervix of undetermined significance R87.612 Patient presents today for a routine obstetrics appointment. Patient is currently 19w1d with a Estimated Date of Delivery: 12/26/25. Pt had annual obtained today pt will have anatomy scan nextweek. Pt has feet swelling advised to elevate feet after work. Pt to return in 4 weeks for scheduled OB appt Documented by Shelley Dang LPN on behalf of: Jefferson Howard DO [1] Allergies Allergen Reactions Penicillins Unknown [2] No past medical history on file. [3] No family history on file. [4] Past Surgical History: Procedure Laterality Date GALLBLADDER documented in this encounterBarn[facility] HospitalFsjvewdclj37-86-6338 History of Present illness Narrative* ELAH Curran - 07/05/2025 2:00 PM EDT Reason for Appointment: Patient ID: Jes Romero is a 24 y.o. female who presents [...] esophagitis 03/02/2024 Mild intermittent asthma without complication ([facility]) 03/02/2024 Allergic rhinitis due to pollen 03/02/2024 Morbid obesity due to excess calories [place] 03/02/2024 Annual physical exam 03/02/2024 Amenorrhea 04/28/2024 [...] nursing note reviewed. Exam conducted with a truck unloader present. Vitals: Estimated body mass index is 54 kg/m as calculated from the following: Height as of 06/01/24: 5' 1 . Weight as of this encounter: 285 lb 12.8 oz. BP: 120/80 Patient's last menstrual period was 03/08/2025. ASSESSMENT & PLAN ICD-10-CM 1. 15 weeks gestation of ([facility]) Z3A.15 POCT urinalysis dipstick manually resulted Alpha fetoprotein, maternal Alpha fetoprotein, maternal 2. Second trimester ([facility]) Z34.92 POCT urinalysis dipstick manually resulted Alpha [...] obtained without difficulty and [facility] obtained. Patient continues with [...] behalf of: LEAH Curran documented in this encounterBarnes-Jewish West County HospitalGzupfxcfvq77-89-2839 History of Present illness Narrative* Shelley Dang LPN - 06/07/2025 1:50 PM EDT Reason for Appointment: Patient ID: Jes Romero is a 24 y.o. female who presents [...] esophagitis 03/02/2024 Mild intermittent asthma without complication ([facility]) 03/02/2024 Allergic rhinitis due to pollen 03/02/2024 Morbid obesity due to excess calories ([facility]) 03/02/2024 Annual physical exam 03/02/2024 Amenorrhea 04/28/2024 [...] nursing note reviewed. Exam conducted with a truck unloader present. Vitals: Estimated body mass index is 53.17 kg/m as calculated from the following: Height as of 06/01/24: 5' 1 . Weight as of this encounter: 281 lb 6.4 oz. BP: 108/68 Patient's last menstrual period was 03/08/2025. ASSESSMENT & PLAN ICD-10-CM 1. First trimester ([facility]) Z34.91 2. 11 weeks gestation of ([facility]) Z3A.11 3. Right ovarian cyst N83.201 ondansetron [...] meat, and stay away from [facility]. Patient has been consulted regarding any further do's and don'ts of . Patient voiced understanding and all questions and concerns wereanswered. No orders of the defined types were placed in this encounter. Follow Up: Patient is to return in 4 weeks for routine OB appointment. Documented by Shelley Dang LPN on behalf of: Jefferson Howard DO documented in this encounterBarnes-Jewish West County HospitalQuyuxsjabr72-10-5131 History of Present illness Narrative* Gayatri Correa LPN - 05/05/2025 2:00 PM EDT Reason for Appointment: Patient ID: Jes Romero is a 24 y.o. female who presents [...] 03/02/2024 Morbid obesity due to excess calories ([facility]) 03/02/2024 Annual physical exam 03/02/2024 Amenorrhea [...] dipstick manually resulted , unspecified gestational age ([facility]) - Type and screen; Future - ABO/Rh; Future - CBC and differential - Hemoglobin A1c - RPR - Rubella antibody, IgG - Hepatitis B surface antigen - Hepatitis C antibody - HIV-1 and HIV-2 antibodies - Rapid drug screen, urine; Future Encounter for supervision of normal first in first trimester ([facility]) - Rapid drug screen, urine; Future Right ovarian cyst - ondansetron (Zofran) 4 MG tablet; Take 1 tablet (4 mg) by mouth every 6 (six) hours if needed fornausea or vomiting for up to 30 doses Take 1 tablet by mouth every 6 hours as needed for nausea. Nausea - ondansetron (Zofran) 4 MG tablet; Take 1 tablet (4 mg) by mouth every 6 (six) hours if needed fornausea or vomiting for up to 30 doses Take 1 tablet by mouth every 6 hours as needed for nausea. PCOS (polycystic ovarian syndrome) - ondansetron (Zofran) 4 MG tablet; Take 1 tablet (4 mg) by mouth every 6 (six) hours if needed fornausea or vomiting for up to 30 doses [...] drink 6-8 glasses of water a day, eatno raw or undercooked meat, and stay away from [facility]. Patient has also been advised to not change litter boxes and eat 6 small meals a day. Patient has been consulted regarding the do's and don'ts ofpregnancy. Patient was given labs and all questions and concerns were answered. [place] and Thyroid given to patient to have [...] by: Gayatri Correa LPN documented in this encounterBarnes-Jewish West County HospitalQmuojdmvut19-65-6435 History of Present illness Narrative* Shelley Dang LPN - 02/02/2025 11:10 AM EDT Reason for Appointment: Patient ID: Jes Romero is a 24 y.o. female who presents [...] Major depressive disorder, recurrent episode, mild (HCC) ([facility]) 03/02/2024 Gastroesophageal reflux disease without esophagitis 03/02/2024 Mild intermittent asthma without complication ([facility]) 03/02/2024 Allergic rhinitis due to pollen 03/02/2024 Morbid obesity due to excess calories ([facility]) 03/02/2024 Annual physical exam 03/02/2024 Amenorrhea 04/28/2024 [...] nursing note reviewed. Exam conducted with a truck unloader present. Vitals: Estimated body mass index is [...] of: Jefferson Howard DO documented in this encounterBarnes-Jewish West County HospitalEsqmdstswb81-60-8888 History of Present illness Narrative* Jefferson Howard DO - 01/17/2025 1:30 PM EDT Reason for Appointment: Patient ID: Jes Romero is a 24 y.o. female who presents [...] nursing note reviewed. Exam conducted with a truck unloader present. Vitals: Estimated body mass index is [...] of: Jefferson Howard DO documented in this encounterBarnes-Jewish West County HospitalZtybmanpkx60-04-0493 History of Present illness Narrative* LEAH Curran - 12/22/2024 11:00 AM EST Reason for Appointment: Patient ID: Jes Romero is a 24 y.o. female who presents [...] Major depressive disorder, recurrent episode, mild (HCC) ([facility]) 03/02/2024 Gastroesophageal reflux disease without esophagitis 03/02/2024 Mild intermittent asthma without complication ([facility]) 03/02/2024 Allergic rhinitis due to pollen 03/02/2024 Morbid obesity due to excess calories ([facility]) 03/02/2024 Annual physical exam 03/02/2024 Amenorrhea 04/28/2024 [...] nursing note reviewed. Exam conducted with a truck unloader present. Vitals: Estimated body mass index is [...] behalf of: LEAH Curran documented in this encounterBarnes-Jewish West County HospitalOtvegmasvs09-78-6927 History of Present illness Narrative* Pilar Collins, WAX BLEACHER - 12/02/2024 1:10 PM ESTAssociated Order(s): Insertion/Removal of Contraceptive Capsule Post-Procedure Diagnose(s): Encounter for removal of etonogestrel implant Reason for Appointment: Patient ID: Jes Romero is a 24 y.o. female who presents [...] nursing note reviewed. Exam conducted with a truck unloader present. Vitals: Estimated body mass index is [...] and the incision was covered with gauze. Post- procedure care was reviewed and patient will continue with proposed plan of care. Patient wasadvised to call office with any questions or concerns. Follow Up: Patient is to return to the office as needed for any routine appointments. Documented by Pilar Collins LPN on behalf of: Jefferson Howard DO documented in this encounterBarnes-Jewish West County HospitalDbvyhezzfj58-84-5019 History of Present illness Narrative* Pilar Collins, WAX BLEACHER - 11/11/2024 8:40 AM EST Reason for Appointment: Patient ID: Jes Romero is a 24 y.o. female who presents [...] Major depressive disorder, recurrent episode, mild (HCC) ([facility]) 03/02/2024 Gastroesophageal reflux disease without esophagitis 03/02/2024 Mild intermittent asthma without complication ([facility]) 03/02/2024 Allergic rhinitis due to pollen 03/02/2024 Morbid obesity due to excess calories ([facility]) 03/02/2024 Annual physical exam 03/02/2024 Amenorrhea 04/28/2024 [...] nursing note reviewed. Exam conducted with a truck unloader present. Vitals: Estimated body mass index is [...] ultrasound to be obtained and setup 2 appointments1. Annual appointment 2. Nexplanon Removal. Patient to return to clinic for appointments as discussed. Documented by Pilar Collins LPN on behalf of: Jefferson Howard DO documented in this encounterBarnes-Jewish West County HospitalRljdkyyfwv57-64-1912 [place] [address] EGD Procedure Note Signed Patient: Jes Romero MR#: [id number] : 2000 Acct:[id number] Age/Sex: 23 / F Adm Date: 4 Loc: Room: Type: [facility] Attending Dr: Mir Silva MD Copies to: MD Manuel Salinas MD~ Esophagogastroduodenoscopy Date/Provider Date: 09/07/2024 Mir Silva MD Narrative Narrative: Procedure: EGD with biopsy Indication: 23-year-old morbidly obese female presents for EGD to evaluate abdominal pain. States that after she was seen in the office she was hospitalized several days later and told she had a large 3+ cm cyst on her ovary. She has not followed up with [facility]. On omeprazole 20 mg daily. Pre-operative diagnosis: Abdominal pain, history of GERD Post-operative diagnosis: Esophagitis, bilious reflux Sedation: propofol per anesthesia dept O2 oximetry, hemodynamic monitoring was performed pre, during, and post procedure. Patient was identified, H&P completed, patient was given full explanation of the procedure as well as associatedrisks and written consent wasobtained prior to procedure. Patient expressed complete understanding of the procedure as well as alternatives to the procedure and to anesthesia and agreed to proceed with the procedure as indicated. Patient was immediately reassessed prior to IV sedation. Following IV sedation, patient was placed in the left lateral decubitus position. Bite block was inserted. Endoscope was passed through the mouth, into the esophagus. Endoscope was advanced into the stomach through the pyloricchannel and into the 2nd portion of duodenum by direct visualization. Endoscopewas withdrawn into the stomach and retroflexion was performed. The endoscope was straightened,the stomach was decompressed. Endoscope was withdrawn into the esophagus then completely removed with the findings as below. Findings: DUODENUM: bulb and descending portion appeared normal. Biopsies obtained, bottle 1-rule out celiac. STOMACH: Significant amount of bilious reflux, otherwise pyloric channel, antrum, body, fundus and cardia, including retroflexed views appear normal. ESOPHAGUS: Diaphragmatic hiatus was 35 cm from incisors. GE junction (upper margin of gastric folds) was at 35 cm from incisors. Squamocolumnar junction was at 35 cm from incisors. 1 small for a nonbridging folds consistent with LA grade A esophagitis. Adequate Bess's screening performed with noevidence ofBarrett's. Biopsy taken: Yes Complications: None EBL: minimal Recommendations: -We will increase her omeprazole to 40 mg daily. Follow-up with the GI nurse practitioner in 6 to 8weeks on this dose, if this does not resolve her abdominal pain then we will trial sucralfate 1 g twice daily for her bilious reflux. If that does not resolve her abdominal pain then she needs to continue to follow-up with [employer] as it is unlikely related to GI etiology. -Resume normal diet -Follow up in the office 6 to 8 weeks with GI [employer]NA[employer] -Follow up with PCP Following a period of recovery, patient was seen and given full explanation of the procedure. Patient tolerated the procedure well and will be discharged in satisfactory, stable condition. Mir Silva MD Documented By: Mir Silva MD 09/07/24 1325 Signed By: 09/07/24 1333 [facility]11-05-2024 Evaluation note* Diagnosis Onset Date Resolution Status Admit Date Dyspepsia acuteNovember 2023 9:29amNauseaacuteNovember 2023 9:29amChronic GERD chronicNovember 2023 9:29amConstipationchronicNov2023 9:29am [facility] Work Phone: Evaluation note* Diagnosis Gastroesophageal reflux [...] syndrome) Polycystic ovaries documented in this encounter [facility] HealthcareEvaluation note* Diagnosis Gastroesophageal reflux disease without [...] of etonogestrel implant documented in this encounter [facility] HealthcareEvaluation note* Diagnosis Gastroesophageal [...] female genital organs documented in this encounter [facility] HealthcareEvaluation noteNo assessment information availableTog[facility] Work Phone: Evaluation note* [...] of undetermined significance documented in this encounter [facility] HealthcareEvaluation note* Diagnosis Gastroesophageal [...] abnormal blood chemistry documented in this encounter [facility] HealthcareEvaluation note* Diagnosis Gastroesophageal reflux disease without esophagitis- Primary Esophageal reflux Amenorrhea Absence of menstruation Generalized abdominal pain Abdominal pain, generalized Morbid (severe) obesity due to excess calories (CMS-HCC) Body mass index (BMI) 50.0-59.9, adult (CMS-HCC) Right sided sciatica- Primary Sciatica Gastroesophageal reflux disease without esophagitis Esophageal reflux Major depressive disorder, recurrent episode, mild Major depressive disorder, recurrent episode, mild Morbid obesity due to excess calories [place] Missed menses , unspecified gestational age ([facility]) Encounter for supervision of normal first in first trimester ([facility]) Right ovarian cyst Other and unspecified ovarian cyst Nausea Nausea alone PCOS (polycystic ovarian syndrome) Polycystic ovaries Gastroesophageal reflux disease, unspecified whether esophagitis present Thyroid disease Unspecified disorder of thyroid documented in this encounter [facility] HealthcareEvaluation note* Diagnosis Gastroesophageal reflux disease without esophagitis- Primary Esophageal reflux Amenorrhea Absence of menstruation Generalized abdominal pain Abdominal pain, generalized Morbid (severe) obesity due to excess calories ([facility] Body mass index (BMI) 50.0-59.9, adult [place] Right sided sciatica- Primary Sciatica Gastroesophageal reflux disease without esophagitis Esophageal reflux Major depressive disorder, recurrent episode, mild Major depressive disorder, recurrent episode, mild Morbid obesity due to excess calories ([facility] First trimester ([facility]) state, incidental 11 weeks gestation of ([facility]) Right ovarian cyst Other and unspecified ovarian cyst Nausea Nausea alone PCOS (polycystic ovarian syndrome) Polycystic ovaries documented in this encounter [facility] HealthcareEvaluation note* Diagnosis Gastroesophageal reflux disease without esophagitis- Primary Esophageal reflux Amenorrhea Absence of menstruation Generalized abdominal pain Abdominal pain, generalized Morbid (severe) obesity due to excess calories ([facility] Body mass index (BMI) 50.0-59.9, adult ([facility] Right sided sciatica- Primary Sciatica Gastroesophageal reflux disease without esophagitis Esophageal reflux Major depressive disorder, recurrent episode, mild Major depressive disorder, recurrent episode, mild Morbid obesity due to excess calories ([facility]) 15 weeks gestation of ([facility]) Second trimester ([facility]) state, incidental Exposure to STD Vaginal discharge Leukorrhea, not specified as infective Nausea Nausea alone documented in this encounter [facility] HealthcareEvaluation note* Diagnosis Gastroesophageal reflux disease without esophagitis- Primary Esophageal reflux Amenorrhea Absence of menstruation Generalized abdominal pain Abdominal pain, generalized Morbid (severe) obesity due to excess calories ([facility] Body mass index (BMI) 50.0-59.9, adult ([facility] Right sided sciatica- Primary Sciatica Gastroesophageal reflux disease without esophagitis Esophageal reflux Major depressive disorder, recurrent episode, mild Morbid obesity due to excess calories ([facility] Second trimester ([facility]) state, incidental 19 weeks gestation of ([facility]) Screening, , for anatomic survey ([facility]) Encounter for anatomic survey LGSIL of cervix of undetermined significance documented in this encounter [facility] Summary [...] and content) DATE CREATED AUTHOR 12/24/2022 [facility] DATE CREATED AUTHOR AUTHOR'S ORGANIZ ATION 01/19/2025 [facility] DATE CREATED AUTHOR AUTHOR'S ORGANIZ ATION 08/11/2025 [facility] DATE CREATED AUTHOR AUTHOR'S ORGANIZ ATION 08/25/2025 [facility] Care Teams (unrecognized sec tion and content) Team Status: Active Member Role Status Dates Manuel Noel MD Primary Care Provider Active Team Status: Inactive Member Role Status Dates Manuel Noel MD Primary Care Provider Active S tart: January 03, 2025 End: January 03, 2025DaSherry Hernandez ProviderActiveStart: January 03, 2025 End: January 03, 2025 Team Status: Active Member Role Status Dates Manuel Noel MD Primary Care Provider Active S tart: June 10, 2024 Yasir Ball , DOAttending ProviderActiveStart: June 10, 2024 Team Status: Inactive Member Role Status Dates Manuel Noel MD Primary Care Provider Active S tart: August 24, 2024 End: August 24Sherry Garvin ProviderActiveStart: August 24, 2024 End: August 24, 2024 Team Status: Inactive Member Role Status Dates Manuel Noel MD Primary Care Provider Active S tart: September 07, 2024 End: September 07Sherry Garvin ProviderActiveStart: September 07, 2024 End: September 07, 2024 Team Status: Active Member Role Status Dates Manuel Noel MD Primary Care Provider Active S tart: September 07, 2024 Sherry Salinas Provider, Other ProviderActiveStart: September 07, 2024 Team MemberRelationshipSpecialtyStart DateEnd Date Manuel Noel MD [address] [place] [address] PCP - [facility]03/02/24Team MemberRelationshipSpecialtyStart DateEnd Date Manuel Noel MD [address] [place] [address] [facility] - [facility]03/02/24 Manuel Noel MD [address] [place] [address] [facility]07/20/24Team MemberRelationshipSpecialtyStart DateEnd Date Manuel Noel MD [address] [place] [address] [facility] - [facility]03/02/24 Manuel Noel MD [address] [place] [address] [facility]07/20/24Te MemberRelationshipSpecialtyStart DateEnd Date Manuel Noel MD [address] [place] [address] [facility]03/02/24 Manuel Noel MD [address] [place] [address] [facility]07/20/24Te MemberRelationshipSpecialtyStart DateEnd Date Manuel Noel MD [address] [place] [address] [facility]03/02/24 Manuel Noel MD [address] [place] [address] [facility]07/20/24Te MemberRelationshipSpecialtyStart DateEnd Date Manuel Noel MD [address] [place] [address] [facility]03/02/24 Manuel Noel MD [address] [place] [address] [facility]07/20/24Te MemberRelationshipSpecialtyStart DateEnd Date Manuel Noel MD [address] [place] [address] [facility] - [facility]03/02/24 Manuel Noel MD [address] [place] [address] [facility]07/20/24Team MemberRelationshipSpecialtyStart DateEnd Date Manuel Noel MD [address] [place] [address] [facility]03/02/24 Manuel Noel MD [address] [place] [address] [facility]07/20/24Team MemberRelationshipSpecialtyStart DateEnd Date Manuel Noel MD [address] [place] [address] [facility]03/02/24 Manuel Noel MD [address] [place] [address] [facility]07/20/24 Team Status: Inactive Member Role Status Dates Jefferson Howard DO Attending Provider Active Start : January 17, 2025 End: January 17, 2025Team MemberRelationshipSpecialtyStart DateEnd Date Manuel Noel MD [address] [place] [address] [facility]03/02/24 Manuel Noel MD [address] [place] [address] [facility]07/20/24Te MemberRelationshipSpecialtyStart DateEnd Date Manuel oNel MD [facility] - [facility]03/02/24 Manuel Noel MD [address] [place] [address] [facility]07/20/24Te MemberRelationshipSpecialtyStart DateEnd Date Manuel Noel MD [facility]03/02/24 Manuel Noel MD [address] [place] [address] [facility]07/20/24Te MemberRelationshipSpecialtyStart DateEnd Date Manuel Noel MD [facility] - [facility]03/02/24 Manuel Noel MD [address] [place] [address] [facility]07/20/24Te MemberRelationshipSpecialtyStart DateEnd Date Manuel Noel MD [facility] - [facility]03/02/24 Manuel Noel MD [address] [place] [address] PCP - [facility]07/20/24Team MemberRelationshipSpecialtyStart DateEnd Date Manuel Noel MD PCP - [facility]03/02/24 Manuel Noel MD [address] [place] [address] PCP - [facility]07/20/24 Reason for Visit (unrecogniz ed section and content) ReasonCommentsOvarian CystReasonCommentsNexplanon RemovalReasonCommentsWell Women VisitReasonCommentsColposcopyReasonCommentsResultsReasonCommentsAmenorrhea ReasonCommentsRoutine VisitReasonCommentsRoutine VisitSTI Screening Goals (unrecognized section and content) Goals [...] BE BASED ON THE PRIMARY CLINICAL RECORDS. [facility] [employer] [facility]. provides no warranty or guarantee of the accuracy or completeness of information in this document.
--- OUTSIDE RECORDS SUMMARY | 2025-08-29 05:09 | XMS_ITS ---
Author Organization [employer] Source Produ ction (ClinicalSummary Clone) Address Unknown Care Team Providers Care Slip Caster Name Role Phone Unavailable Primary Care Physician Unavailab le Results * [UNITY] ANEUPLOIDY NIPT Performed by: [employer] Component Value Range Date Fraction 4.0% 05/30/2025 04:38 am UTCRh(D) NIPTRhD QQQBZUSF57/11/2025 04:38 am UTCSex Chromosome AneuploidyNOT LKKSWZKD74/11/2025 04:38 am UTCMonosomy XLOW RISK <1 in 04:38 am UTCTrisomy 13LOW RISK <1 in 04:38 am UTCTrisomy 18LOW RISK <1 in 04:38 am UTCTrisomy 21LOW RISK <1 in 04:38 am UTCFetal LibJRLN2605/30/2025 04:38 am UTCPregnancy BwzuetkzeYHBLFRNYF57/11/2025 04:38 am UTCFor detailed report, see PDFSee PDF 05/30/2025 04:38 am UTC05/30/2025 04:38 am UTC Social History Observation Value Start Date End Date
--- OUTSIDE RECORDS SUMMARY | 2025-08-29 05:09 | XMS_ITS | Clinical Summary ---
Author Organization [employer] tem Address [id number] [address] [place] [address] Care Team Providers Care Integrated Marketing Specialist Name Role Phone Manuel Schwartz MD Primary Care Provider [phone] Allergies Active AllergyReactionsCriticalityNoted BhcyTuqbxzzbXgtwnshtwmg68/04/2019 Medications MedicationSigDispense QuantityRefillsLast FilledStart DateEnd DateStatus omeprazole (PriLOSEC) 20 mg capsule Take 1 capsule (20 mg total) by mouth in the morning.Active norethindrone-e.estradioL-iron (ESTROSTEP FE) 1-20(5)/1-30(7) /1mg-35mcg (9) tablet Take 1 tablet by mouth in the morning.Active ibuprofen (ADVIL,MOTRIN) 800 mg tablet Take 1 tablet (800 mg total) by mouth every 8 (eight) hours as needed for pain. 30 tablet 01/30/2022ctive Additional Information Patient not taking.Reported on 08/23/2025 acetaminophen (TYLENOL EXTRA STRENGTH) 500 mg tablet Take 2 tablets (1,000 mg total) by mouth every 6 (six) hours as needed for pain. 30 tablet 02/28/2024ctive Additional Information Patient not taking.Reported on 08/23/2025 famotidine (PEPCID) 20 mg tablet Take 1 tablet (20 mg total) by mouth in the morning and 1 tablet (20 mg total) before bedtime. 20 tablet 02/28/2024ctive Additional Information Patient not taking.Reported on 08/23/2025 dicyclomine (BENTYL) 20 mg tablet Take 1 tablet (20 mg total) by mouth in the morning and 1 tablet (20 mg total) before bedtime. 20 tablet 08/28/2024ctive Additional Information Patient not taking.Reported on 08/23/2025 ondansetron ODT (ZOFRAN ODT) 4 mg disintegrating tablet Dissolve 1 tablet (4 mg total) on tongue every 8 (eight) hours as needed for nausea for up to 10 doses. 10 tablet 08/28/2024ctive Additional Information Patient not taking.Reported on 08/23/2025 Encounters DateTypeDepartmentCare HnoaMcbdytdysvm29/04/2025 7:25 PM EST - 08/23/2025 9:27 PM ESTHospital Encounter [facility] [address] [place] [address] Ny Lewis, SYS DIR-CN Discharge Disposition: Home08/23/20257484Orvvgs35/04/2025 - 08/23/2025 7:18 PM EST Emergency [facility] - Emergency [address] [place] [address] Discharge Disposition: ED Dismiss - Never Arrivedfrom Last 3 Months Family History Medical HistoryRelationNameCommentsHypertensionMotherRelationNameStatusComments Mother Social History Tobacco UseTypesPacks/DayYears UsedDateSmoking Tobacco: NeverSmokeless [...] RecordedIn the past 12 months has the [employer], gas, oil, or water [employer] threatened to shut off services in your home?No08/23/2025Housing InstabilityAnswerDate RecordedAre you worried or concerned that in the next two months you may not have stable housing that you own, rent or stay in as a part of a household?No 5ChildcareAnswerDate VpluktddDewhuahavFmqcofq22/11/2019EmploymentAnswer Date UgborrclFraxiihdewJofeqtz07/11/2019Hunger ScreeningAnswerDate Recorded Within the past 12 months we worried whether our food would run out before we got money to buy more.Never True08/23/2025Within the past 12 months the food we bought just didn't last and we didn't have money to get more.Never True 08/23/2025Purpose - LifeAnswerDate RecordedPurpose and direction in lifeUnknown 1Estimated Date of PdqhmstsYbykitjfLrv48/09/2026ased on UltrasoundSex and Gender InformationValueDate RecordedSex Assigned at BirthNot on fileLegal NfjFpbmmy49/04/2015 6:13 PM EDTGender IdentityNot on fileSexual OrientationNot on file Last Filed Vital Signs Vital SignReadingTime TakenCommentsBlood Vvrvsrjh402/8411 7:34 PM EST Ithdv98743 7:34 PM FBNVxpchhmselz91.7 ??C (98 ??F)08/23/2025 7:34 PM EST Respiratory Lxtl9312 7:34 PM ESTOxygen Ubpiuslqek39%04/14/2025 2:13 AM EDTInhaled Oxygen Concentration--Lqtksb056.5 kg (281 lb)08/23/2025 7:34 PM EST Opvknf284.5 cm (5' 2 )08/23/2025 7:34 PM ESTBody Mass Index51.411 7:34 PM EST Plan of Treatment Health MaintenanceDue DateLast DoneCommentsDepression Teektyqww86/11/2013dult BMI Follow Up Plan2018Pap Smear2DTaP,Tdap and Td Vaccines (7 - Td or Tdap)/10/2012, 10/31/2004, 02/02/2002, Additional history exists Influenza Tpxrjxs30/RSV ( or age 60+ yrs) (1 - Risk 1-dose series)10/31/2025Tobacco Klvbkwwww43dult BMI Aptpglias18 Medical Devices Not on file Procedures Procedure NamePriorityDate/TimeAssociated DiagnosisCommentsEXTRA TUBES SST TOP Pyicgjo6008/23/2025 8:24 PM EST EXTRA PTBKPNzktgdh24/04/2025 8:24 PM EST BASIC METABOLIC GUGPQROLQ48/04/2025 8:20 PM EST CBC (NO DIFF)STAT110/23/2024 8:20 PM EST EOWIQEHJCJQVQD10/04/2025 8:03 PM EST from Last 3 Months Results * SST TOP (08/23/2025 8:24 PM EST)ComponentValueRef RangeTest MethodAnalysis TimePerformed AtPathologist SignatureExtra TubeAuto Aefifcay06/04/2025 10:01 PM [facility]pecimen (Source)Anatomical Location / LateralityCollection Method / VolumeCollection TimeReceived TimeBloodVenous blood / Rqmfbau5308/23/2025 8:24 PM EST08/23/2025 8:24 PM EST Narrative Authorizing ProviderResult TypeResult StatusKathleen Maribell Lewis SYS DIR-CNMLAB BLOOD ORDERABLESFinal ResultPerforming OrganizationAddressCity/State/ZIP CodePhone Number [facility] [address] * (ABNORMAL) CBC without diff (08/23/2025 8:20 PM EST)ComponentValueRef Range Test MethodAnalysis TimePerformed AtPathologist SignatureWBC8.94 - 11 X10^9/L 08/23/2025 8:32 PM [facility] SYSTEMRBC Count3.62(L)3.8 - 5.2 X10^12/L110/23/2024 8:32 PM [facility] Fvjumdqedd33.6(L)11.7 - 15.5 g/dL08/23/2025 8:32 PM ESTPROBARSTOW COMMUNITY HOSPITALHematocrit31.2(L)35 - 47 %08/23/2025 8:32 PM ESTPROBARSTOW COMMUNITY HOSPITALMCV8680 - 100 fL08/23/2025 8:32 PM ESTPROBARSTOW COMMUNITY HOSPITALMCH29.227 - 34 pg08/23/2025 8:32 PM ESTPROBARSTOW COMMUNITY HOSPITALMCHC33.832 - 36 g/dL08/23/2025 8:32 PM ESTPROBARSTOW COMMUNITY HOSPITALRDW13.511.5 - 15 %08/23/2025 8:32 PM [facility] SYSTEMPlatelet Dkxll680911 - 450 X10^9/L110/23/2024 8:32 PM ESTBARBERTON CITIZENS HOSPITALMPV9.27 - 12 fL08/23/2025 8:32 PM EST [facility] SYSTEMpecimen (Source)Anatomical Location / LateralityCollection Method / VolumeCollection TimeReceived TimeBloodVenous blood / UnknownVenipuncture / Ebzxoue4008/23/2025 8:20 PM EST08/23/2025 8:23 PM EST Narrative Authorizing ProviderResult TypeResult StatusKathljamilah Lewis SYS DIR-CNMLAB BLOOD ORDERABLESFinal ResultPerforming OrganizationAddressCity/State/ZIP CodePhone Number [facility] [address] [place] [address], * (ABNORMAL) Basic Metabolic Panel (08/23/2025 8:20 PM EST)ComponentValueRef RangeTest MethodAnalysis TimePerformed AtPathologist QpdhtnwauTHKVMH974517 - 146 mmol/L110/23/2024 8:37 PM ESTBARBERTON CITIZENS HOSPITALPOTASSIUM 3.73.5 - 5.0 mmol/L110/23/2024 8:37 PM ESTBARBERTON [facility] RLAACSXK82596 - 109 mmol/L110/23/2024 8:37 PM ESTBARBERTON CITIZENS HOSPITALCARBON GIITAXO59(L)22 - 32 mmol/L110/23/2024 8:37 PM ESTBARBERTON CITIZENS HOSPITALANION GRX995 - 15 mmol/L110/23/2024 8:37 PM EST [facility]ITALBLOOD UREA YXMRDAAE76 - 23 mg/dL08/23/2025 8:37 PM ESTBARBERTON CITIZENS HOSPITALCREATININE0.530.40 - 1.00 mg/dL 08/23/2025 8:37 PM [facility] SYSTEMComment:METHOD TRACEABLE TO IDMS PJYSHSKYNJGKVIP272(H)65 - 99 mg/dL08/23/2025 8:37 PM EST [facility]OS[facility]ITALCALCIUM8.3(L)8.5 - 10.5 mg/dL08/23/2025 8:37 PM ESTBARBERTON CITIZENS HOSPITALEGFR Non-Race Dependent>90>=60 ml/min/1.73sq.m110/23/2024 8:37 PM [facility] Comment: eGFR not reported due to non-numeric value for Creatinine. Reported eGFR is based on the CKD-EPI 2020 equation that does not use a race coefficient. Specimen (Source)Anatomical Location / LateralityCollection Method / Volume Collection TimeReceived TimeBloodVenous blood / UnknownVenipuncture / Unknown 08/23/2025 8:20 PM EST08/23/2025 8:23 PM EST Narrative Authorizing ProviderResult TypeResult StatusKathleen Maribell Lewis SYS DIR-CNMLAB BLOOD ORDERABLESFinal ResultPerforming OrganizationAddressCity/State/ZIP CodePhone Number [facility] [address] [place] [address], * (ABNORMAL) Urinalysis (08/23/2025 8:03 PM EST)ComponentValueRef RangeTest MethodAnalysis TimePerformed AtPathologist SignatureCOLORYellowYellow 08/23/2025 8:41 PM ESTBARBERTON CITIZENS HOSPITALTURBIDITYHazy(A)Clear 08/23/2025 8:41 PM ESTMEMORIAL HEALTH SYSTEMPECIFIC GRAVITY1.020 1.003 - 1.2653608/23/2025 8:41 PM ESTBARBERTON CITIZENS HOSPITALNITRITE ZbrnljhaHnoojwsf54/04/2025 8:41 PM ESTBARBERTON CITIZENS [facility]OSPITAL PH,URINE7.05.0 - 8.511 8:41 PM ESTBARBERTON CITIZENS HOSPITAL LEUKOCYTE MFNDTXVTRrzjzkmjJxbhgxmm48/04/2025 8:41 PM ESTBARBERTON CITIZENS HOSPITALPROTEINTrace(A)Yirlevnk00/04/2025 8:41 PM ESTPROBARSTOW COMMUNITY HOSPITALKETONES (URINE)GdrdttgvHorrnmdg36/04/2025 8:41 PM EST [facility]ITALUROBILINOGEN>=8.0 eu/dL(A)0.2 eu/dL, 1.0 eu/dL08/23/2025 8:41 PM ESTPROBARSTOW COMMUNITY HOSPITALBILIRUBIN (URINE)YlstifmyXguzvuzu16/04/2025 8:41 PM ESTBARBERTON CITIZENS HOSPITALBLOOD/ENVGmzemhyiEyysszdg91/04/2025 8:41 PM ESTBARBERTON CITIZENS HOSPITALAMORPHOUS SEDIMENTPresent(A)None08/23/2025 8:41 PM EST [facility] SYSTEMQUAMOUS EXSNAZCXVI71 - 8:41 PM ESTBARBERTON CITIZENS HOSPITALGLUCOSE (URINE)NegativeNegative, 250 mg/dL08/23/2025 8:41 PM ESTMEMORIAL HEALTH SYSTEMpecimen (Source)Anatomical Location / LateralityCollection Method / VolumeCollection TimeReceived TimeUrineUrine specimen collection, clean catch / Unknown 08/23/2025 8:03 PM EST08/23/2025 8:23 PM EST Narrative Authorizing ProviderResult TypeResult StatusKathleen S Clinton SYS DIR-CNMURINE ORDERABLESFinal ResultPerforming OrganizationAddressCity/State/ZIP CodePhone Number [facility] [address] [place] [address], from Last 3 Months Insurance Care Teams Team MemberRelationshipSpecialtyStart DateEnd Date Manuel Schwartz MD PCP - GeneralFamily Medicine01/21/19
--- OUTSIDE RECORDS SUMMARY | 2025-08-29 05:09 | XMS_ITS | Encounter Summary ---
Author Organization [employer] tem Address [id number] [address] [place] [address] Care Team Providers Care Screen Roller Name Role Phone Manuel Schwartz MD Primary Care Provider [phone] Encounter Details DateTypeDepartmentCare Team (Latest Contact Info)Vnanbtlfabv56/04/2025Travel Social History Tobacco UseTypesPacks/DayYears UsedDateSmoking Tobacco: NeverSmokeless [...] RecordedIn the past 12 months has the [employer], gas, oil, or water [employer] threatened to shut off services in your home?No08/23/2025Housing InstabilityAnswerDate RecordedAre you worried or concerned that in the next two months you may not have stable housing that you own, rent or stay in as a part of a household?No 08/23/2025hildcareAnswerDate AxijkyebBxupjugbkQsfohis30/11/2019EmploymentAnswer Date DsfqelbpDfljvtyxywFuwdtnu42/11/2019Hunger ScreeningAnswerDate Recorded Within the past 12 months we worried whether our food would run out before we got money to buy more.Never True08/23/2025Within the past 12 months the food we bought just didn't last and we didn't have money to get more.Never True 08/23/2025Purpose - LifeAnswerDate RecordedPurpose and direction in lifeUnknown 1Estimated Date of NrxaawfiVenhrzyzDjr59/09/2026Based on UltrasoundSex and Gender InformationValueDate RecordedSex Assigned at BirthNot on fileLegal ScbNaxwvy00/04/2015 6:13 PM EDTGender IdentityNot on fileSexual OrientationNot on filedocumented as of this encounter Plan of Treatment Not on file documented as of this encounter Visit Diagnoses Not on filedocumented in this encounter Care Teams Team MemberRelationshipSpecialtyStart DateEnd Date Manuel Schwartz MD PCP - GeneralFamily Medicine01/21/19documented as of this encounter
--- OUTSIDE RECORDS SUMMARY | 2025-08-29 05:09 | XMS_ITS | Clinical Summary ---
Author Organization [facility] Address [address] [place] [address] Care Team Providers Care Ethical Hacker Name Role Phone Manuel Schwartz MD Primary Care Provider [phone] Manuel Schwartz MD Unavailable Allergies Active AllergyReactionsCriticalityNoted QhunDumiqvwiCyoptbxznyeAuempaj40/15/2001 Medications MedicationSigDispense QuantityRefillsLast FilledStart DateEnd DateStatus omeprazole (PriLOSEC) [address] capsule Indications:Gastroesophageal reflux disease, unspecified whether esophagitis presentTake 1 capsule (40 mg) by mouth in the morning and 1 capsule (40 mg) in the evening. Take before meals. 60 capsule 505Active ondansetron (Zofran) 4 MG tablet Indications:Right ovarian cyst,Nausea,PCOS (polycystic ovarian syndrome)Take 1 tablet (4 mg) by mouth every 6 (six) hours if needed for nausea or vomiting for up to 30 doses Take 1 tablet by mouth every 6 hours as needed for nausea. 30 tablet 5Active promethazine (Phenergan) 12.5 MG tablet Indications:NauseaTake 1 tablet (12.5 mg) by mouth every 6 (six) hours if needed for nausea or vomiting for up to 30 doses Take 1 tablet by mouth every 6 hours as needed for nausea. 30 tablet 5Active Active Problems ProblemNoted DateDiagnosed DateRight sided uruoptbf79/13/2024 Assessment & Plan (06/01/2024 1:53 PM EDT): Recent pain and treat with prednisone. Use flexeril PRN. Check x-ray and start PT. Vcypkrpktd21/10/2024 Assessment & Plan (04/28/2024 2:19 PM EDT): Concerned of possible and check labs. Major depressive disorder, recurrent episode, mild03/02/2024 Assessment & Plan (06/01/2024 1:53 PM EDT): Mild symptoms and letter for emotional support animal to patient. Gastroesophageal reflux disease without evcqnmksmgt67/14/2024 Assessment & Plan (06/01/2024 1:53 PM EDT): Symptoms controlled with omeprazole and continue. Assessment & Plan (04/28/2024 2:19 PM EDT): Symptoms controlled with omeprazole and continue. Mild intermittent asthma without enwwlgkhvvhx88/14/2024llergic rhinitis due to jqqchf1703/02/2024Morbid obesity due to excess cqsvgbyf43/14/2024 Assessment & Plan (06/01/2024 1:54 PM EDT): Weight loss indicated Annual physical exam03/02/2024Estimated Date of DeliveryCommentsYes 6Based on Ultrasound, FHR- 136 Resolved Problems ProblemNoted DateDiagnosed DateResolved DateGeneralized abdominal pain03/02/2024 06/01/2024 Assessment & Plan (04/28/2024 2:19 PM [...] GI for evaluation and possible endoscopy. Encounters DateTypeDepartmentCare ZrxjOwjknrepcyd05/30/2025Orders Only [facility] [place] [address] Janneth Paul MA 08/10/2025 11:00 AM EDTAncillary Procedure [facility] [place] [address] Screening, , for anatomic survey ([facility])08/02/2025 1:40 PM EDT Routine N[place]Marib[place] [address] Jefferson Howard DO Second trimester ([facility]); 19 weeks gestation of ([facility]); Screening, , for anatomic survey ([facility]); LGSIL of cervix of undetermined gdzzpzktlije19/14/2025amboo flowsheet [facility] [place] [address] Jefferson Howard DO 07/25/2025linisync Result Encounter [facility] External Department Unsolicited Gia Agustin PA 07/06/2025Telephone NOMMaribell [place] [address] Janneth Paul MA 07/05/2025 2:00 PM EDTRoutine NOMMaribell [place] [address] Gia Agustin PA 15 weeks gestation of ([facility]); Second trimester ([facility]); Exposure to STD; Vaginal discharge; Pmuobr2307/05/2025External Result Encounter [facility] External Department Unsolicited Gia Agustin PA 07/05/2025amboo flowsheet [facility] [place] [address] Gia Agustin PA 07/04/20255251Ehasyv42/08/2025Patient Outreach [facility] [place] [address] [place] [address] Gia Hernandez LPN 06/24/2025bstract [facility] [place] [address] Gia Hernandez LPN 06/09/2025bstract [facility] Emma [facility]LEY [address] [place] [place] [address] Jeffesron Howard DO 06/07/2025 1:50 PM EDTRoutine [facility] [place] [phone] Jefferson Howard DO First trimester ([facility]); 11 weeks gestation of ([facility]); Right ovarian cyst; Nausea; PCOS (polycystic ovarian syndrome)5Clinisync Result Encounter [facility]S External Department Unsolicited Jefferson Howard DO 5Bamboo flowsheet [facility] Emma [address] [place] [phone] Jefferson Howard DO 05/31/20253146Zpirpw88/11/2025bstract [facility] Emma [address] [place] [address] Jefferson Howard DO from Last 3 Months Social History Tobacco UseTypesPacks/DayYears UsedDateSmoking Tobacco: NeverSmokeless Tobacco: Never Tobacco Cessation:Counseling Given: Not Answered Social Connection and Isolation PanelAnswerDate RecordedIn a typical week, how many times do you talk on the phone with family, friends, or neighbors?Twice a week03/02/2024How often do you get together with friends or relatives?Twice a week03/02/2024How often do you attend mu-ism or gnosticist services?Never 03/02/2024ctive Member of Clubs or OrganizationsNot [...] to strenuous exercise (like a brisk walk)?Patient pgblqnam78/14/2024On average, how many minutes do you engage in exercise at this level?Patient xecocnzw56/14/2024 Housing Stability Vital SignAnswerDate RecordedIn the last 12 months, was there a time when you were not able to pay the mortgage or rent on time?No03/02/2024In the last 12 months, how many places have you lived?In the last 12 months, was there a time when you did not have a steady place to sleep or slept in miamielter (including now)?No03/02/2024Estimated Date of Delivery XzjkojouJxg95/09/2026Based on Ultrasound, FHR- 136Sex and Gender Information ValueDate RecordedSex Assigned at BirthNot on fileLegal VqkRboikc23/15/2023 8:14 PM EDTGender IdentityNot on fileSexual OrientationNot on file Last Filed Vital Signs Vital SignReadingTime TakenCommentsBlood Rgonqqzu200/6210 1:55 PM EDT Nleox73262/13/2024 1:21 PM WZBAvyhywidjvw61.6 ??C (97.8 ??F)06/01/2024 1:21 PM EDTRespiratory Aoxw628906/01/2024 1:21 PM EDTOxygen Ckocpenlzp33%06/01/2024 1:21 PM EDTInhaled Oxygen Concentration--Rvbrrr548 kg (281 lb 1.9 oz)08/02/2025 1:55 PM YJBYxctav102.9 cm (5' 1 )06/01/2024 1:21 PM EDTBody Mass Index53.1208 1:21 PM EDT Plan of Treatment DateTypeDepartmentCare Team (Latest Contact Info)Lrlatkbflst72/12/2025 11:20 AM ESTRoutine [facility] [address] [place] [phone] Gia Agustin PA [address] [place] [address] Health MaintenanceDue DateLast DoneCommentsPneumococcal Vaccine: Pediatrics (0 to 5 Years) and At-Risk Patients (6 to 64 Years) (1 of 2 - PCV)2019COVID- 19 Vaccine ( - season)2025Influenza Vaccine (#1)2025 Procedures Procedure NamePriorityDate/TimeAssociated DiagnosisCommentsUS OB 14+ WEEKS ANATOMY IPREScqnlbo06/22/2025 11:57 AM EDT Screening, , for anatomic survey ([facility]) PAP TEST, QBAKWQILSjyyctr27/14/2025 12:00 AM EDTAFP, SERUM, OPEN SPINA BIFIDA Aiwusdf5007/25/2025 12:10 PM EDT POCT URINALYSIS TFJVJTXVSfzvntz17/16/2025 2:19 PM EDT 15 weeks gestation of ([facility]) Second trimester ([facility]) RECURRENT VAGINITIS (HTRX)Vuxhveu1707/05/2025 2:05 PM EDT ALL THYROID STIM EDMKIIOIuifqen57/19/2025 3:43 PM EDT from Last 3 Months Results * OB 14+ weeks anatomy scan (08/10/2025 11:57 AM EDT)Anatomical Region LateralityModalityBodyUltrasoundSpecimen (Source)Anatomical Location / LateralityCollection Method / VolumeCollection TimeReceived Time08/10/2025 2:33 PM EDT Impressions 08/10/2025 2:45 PM EDT Single, live intrauterine , current sonographic age of 21 weeks and 4 days, with an estimated date of delivery of December 17, 2025. * ??Estimated Weight (g) by Percentile is based upon an accurate estimated age based onlast menstrual period. ?? TRANSCRIBED BY: ? ELECTRONICALLY SIGNED BY: Kenneth Arce MD Narrative 08/10/2025 2:45 PM EDT FINDINGS: A single, live intrauterine is present with normal cardiac rate of 153 ??beats per minute. Normal activity. ?? Morphology is grossly normal, evaluation limited by patient body habitus. ??Cervix inferior aspect 9.0 cm from the closed internal cervical os, cervical length 4.3 cm. The placenta is posterior, Grade 1 not associated with the cervical os. ??The current sonographic age is 21 weeks and 4 days, based on the following measurements: BPD ? 5.0 cm (21 weeks, 0 days) Head Circumference ?18.2 cm 20( weeks,4 ??days) Abdominal Circumference ?17.3cm ( 22weeks, 2 days) Femur Length ?3.8cm (22 weeks, 2 days) Presentation ? Cephalic ? Placenta ? Posterior Grade 1 Weight (g) by Percentile ??Greater 97 % * These measurements result in an estimated date of delivery of ??December 17, 2025. ?? The current estimated weight is 470 grams ( 1 pound, ??1 ??ounces). ?? Procedure Note Kenneth Arce MD - 08/10/2025 FINDINGS: A single, live intrauterine is present with normal cardiacrate of 153 beats per minute. Normal activity. Morphology isgrossly normal, evaluation limited by patient body habitus. Cervixinferior aspect 9.0 cm from the closed internal cervical os, cervicallength 4.3 cm. The placenta is posterior, Grade 1 not associated with thecervical os. The current sonographic age is 21 weeks and 4 days, based onthe following measurements: BPD 5.0 cm (21 weeks, 0 days) Head Circumference 18.2 cm 20( weeks,4 days) Abdominal Circumference 17.3cm ( 22weeks, 2 days) Femur Length 3.8cm (22 weeks, 2 days) Presentation Cephalic Placenta Posterior Grade 1 Weight (g) by Percentile Greater 97 % * These measurements result in an estimated date of delivery of 2025. The current estimated weight is 470 grams ( 1 pound, 1ounces). IMPRESSION: Single, live intrauterine , current sonographic age of 21 weeksand 4 days, with an estimated date of delivery of December 17, 2025. * Estimated Weight (g) by Percentile is based upon an accurateestimated age based on last menstrual period. TRANSCRIBED BY: ELECTRONICALLY SIGNED BY: Kenneth Arce MD Authorizing ProviderResult TypeResult StatusCorey Anita DOIMG OB US PROCEDURES Final Result * PAP TEST, EXTERNAL (08/02/2025 12:00 AM EDT) Narrative Authorizing ProviderResult TypeResult StatusCorey Anita DOLAB CYTOLOGY ORDERABLESFinal ResultPerforming OrganizationAddressCity/State/ZIP CodePhone Number EXTERNAL LAB * AFP, SERUM, OPEN SPINA BIFIDA (07/25/2025 12:10 PM EDT)ComponentValueRef Range Test MethodAnalysis TimePerformed AtPathologist SignatureRESULTSReport.TBHTEST RESULTS:*Screen Negative*.TBHGEST. AGE ON COLLECTION DATE18.0. weeksTBHGESTAT. AGE BASED ONUltrasound.TBHComment: ?15.1 on 07/05/2025 Recalculations are not recommended when gestational dating by LMP and ultrasound are within 10 days. MATERNAL AGE AT EDD25.1. yrTBHRACECaucasian.AMQAHHBNE912. lbsTBHINSULIN DEP DIABETESNo.TBHMULTIPLE GESTATIONNo.TBHAFP VALUE31.7. ng/mLTBHAFP MOM1.07.TBHOSBR RISK 1 QT8967.TBHINTERPRETATIONComment.TBHComment: Interpretation: Screen Negative This result is screen negative [...] Genetic Customer Services to discuss available options. ??The [place] [employer] recommends amniocentesis be offered to women age 35 and older. COMMENT:Comment.TBHComment: Caitlin Palafox, Ph.D., [facility] Director References: Available Upon Request. Multiples Of Median Cutoffs ?For AFP Elevations Caro ?? 2.5 ? Black ?2.8 IDD ? 2.0 ? Twins ?4.5 ?Abbreviation Definitions IDD - Insulin Dep Diabetes OSBR - Open Spina Bifida Risk For further inquiries contact [employer] at [phone]. This test was developed and its performance characteristics determined by [employer]. It has not been cleared or approved by the Food and Drug Administration. Performed at: ??[facility] [place], [place] [id number] Furniture Removalist: Leonidas Oneill [facility], Phone: ??[phone] Specimen (Source)Anatomical Location / LateralityCollection Method / Volume Collection TimeReceived Time07/25/2025 12:10 PM EDT1 12:14 PM EDT Narrative [facility] - 07/26/2025 11:07 PM EDT N N ULTRASOUND [id number] 1 15 N 1 Y 285 N N N N N [place]/ Authorizing ProviderResult TypeResult StatusAmy Vamsi LEIVA BLOOD ORDERABLES Final ResultPerforming OrganizationAddressCity/State/ZIP CodePhone Number [facility] * (ABNORMAL) POCT urinalysis dipstick manually resulted (07/05/2025 2:19 PM EDT) ComponentValueRef RangeTest MethodAnalysis TimePerformed AtPathologist SignatureColor, UAYellowClarity, UAClearGlucose, UANegativeNegative - 2000(110) ++++ mg/dLBilirubin, UANegativeNegative - 4(70) +++ mg/dLKetones, UA NegativeNegative - 160(16) ++++ mg/dLSpec Grav, UA1.0151 - 1.03Blood, UA PositiveNegative - 50 Linconl/mcLpH, UA6.05 - 9Protein, UANegativeNegative - 2000(20) ++++ mg/dLUrobilinogen, UA1.00.2 - 12 mg/dLLeukocytes, UANegative Negative - 500+++ Skyler/mcLNitrite, UANegativeNegative - PositiveSpecimen (Source)Anatomical Location / LateralityCollection Method / VolumeCollection TimeReceived GbhfAabjk06/16/2025 2:19 PM EDT Narrative Authorizing ProviderResult TypeResult StatusJohnston Memorial Hospital TEST ENTER/EDIT ORDERABLESFinal Result * (ABNORMAL) RECURRENT VAGINITIS (HTRX) (07/05/2025 2:05 PM EDT)ComponentValue Ref RangeTest MethodAnalysis TimePerformed AtPathologist SignatureATOPOBIUM QBGDTKS715.961 - 24.689 ppm07/06/2025 7:10 AM EDTHealthTrackRx at [facility] ATOPOBIUM VAGINAENot Ywknvujx18.961 - 24.9 07/06/2025 7:10 AM EDT [facility] HospitalBVAB 2,3 (BACTERIAL VAGINOSIS ASSOCIATED BACTERIA 2, 3); MOBILUNCUS YZB849.961 - 24.689 ppm07/06/2025 7:10 AM EDTHealthTrackRx at [facility] HospitalBVAB 2,3 (BACTERIAL VAGINOSIS ASSOCIATED BACTERIA 2, 3); MOBILUNCUS SPP Not Iebrscqt16.961 - 24.689 ppm07/06/2025 7:10 AM EDTHealthTrackRx at [facility] CYDNEY ALBICANS, PARAPSILOSIS, HYHZUNWGGD141.000 - 30.347 07/06/2025 7:10 AM EDTHealthTrackRx at LabPortCANDIDA ALBICANS, PARAPSILOSIS, TROPICALISNot Ahbftcub37.000 - 30.347 ppm07/06/2025 7:10 AM EDTHealthTrackRx at [facility] CYDNEY TYQWLNDE089.000 - 31.618 ppm07/06/2025 7:10 AM EDTHealthTrackRx at LabPortCANDIDA GLABRATANot Xngylrth92.000 - 31.618 ppm07/06/2025 7:10 AM EDT [facility] LabPortCANDIDA DSMELX953.000 - 30.873 ppm07/06/2025 7:10 AM EDTHealthTrackRx at LabPortCANDIDA KRUSEINot Tkcjllur13.000 - 30.873 ppm 07/06/2025 7:10 AM EDTHealthTrackRx at LabPortCHLAMYDIA HXXKYFORDTD371.000 - 31.586 ppm07/06/2025 7:10 AM EDTHealthTrackRx at [facility]Scott [facility] HospitalCHLAMYDIA TRACHOMATIS Not Zgqctxdb14.000 - 31.586 ppm07/06/2025 7:10 AM EDTHealthTrackRx at [facility] GARDNERELLA HKVVFJMYE08.049(A)19.961 - 24.689 ppm07/06/2025 7:10 AM EDT [facility] HospitalGARDNERELLA VAGINALISDetected(A)19.961 - 24.689 ppm 07/06/2025 7:10 AM EDTHealthTrackRx at LabPortMEGASPHAERA (TYPES 1, 2)019.961 - 24.689 ppm07/06/2025 7:10 AM EDTHealthTrackRx at LabPortMEGASPHAERA (TYPES 1, 2)Not Qdypjubh53.961 - 24.689 ppm07/06/2025 7:10 AM EDTHealthTrackRx at LabPortNEISSERIA JPDPFWODRJO554.000 - 32.587 ppm07/06/2025 7:10 AM EDT [facility] LabPortNEISSERIA GONORRHOEAENot Kicartsj42.000 - 32.587 ppm 07/06/2025 7:10 AM EDTHealthTrackRx at LabPortTRICHOMONAS GBHFQTSIW438.000 - 31.995 ppm09/ 7:10 AM EDTHealthTrackRx at [facility] HospitalTRICHOMONAS VAGINALIS Not Uwwrzkhz33.000 - 31.995 ppm07/06/2025 7:10 AM EDTHealth[facility] at [facility] MYCOPLASMA JWQXBGDVQD176.961 - 24.689 ppm07/06/2025 7:10 AM EDTHealthTrackRx at [facility] HospitalMYCOPLASMA GENITALIUMNot Nskrybss74.961 - 24.689 ppm07/06/2025 7:10 AM EDTHealthTrackRx at [facility] HospitalTET B, TET M23.864(A)23.000 - 27.500 ppm 07/06/2025 7:10 AM EDTHealth[facility]Rx at [facility]T [facility], TET MDetected(A)23.000 - 27.500 ppm07/06/2025 7:10 AM EDTHealthTrackRx at [facility] HospitalSpecimen (Source) Anatomical Location / LateralityCollection Method / VolumeCollection Time Received RungEgpmdz26/16/2025 2:05 PM EDT07/06/2025 1:36 AM EDT Narrative Authorizing ProviderResult TypeResult StatusAmy [place] [facility] BLOOD ORDERABLES Final ResultPerforming OrganizationAddressCity/State/ZIP CodePhone Number [facility]ALTH[facility]ACK[facility] [address] [address] * ALL THYROID STIM HORMONE (06/07/2025 3:43 PM EDT)ComponentValueRef RangeTest MethodAnalysis TimePerformed AtPathologist SignatureTHYROID STIMULATING HORMONE2.1040.358 - 3.740 uIU/mLTBHSpecimen (Source)Anatomical Location / LateralityCollection Method / VolumeCollection TimeReceived Time06/07/2025 3:43 PM EDT06/07/2025 3:44 PM EDT Narrative [facility] - 06/07/2025 7:04 PM EDT Authorizing ProviderResult TypeResult StatusCorey Anita DOCLINISYNCFinal Result Performing OrganizationAddressCity/State/ZIP CodePhone Number [facility] TB from Last 3 Months Insurance Care Teams Team MemberRelationshipSpecialtyStart DateEnd Date Manuel Schwartz MD PCP - [facility]03/02/24 Manuel Schwartz MD [address] [place] [address] PCP - [facility]07/20/24
--- OUTSIDE RECORDS SUMMARY | 2025-08-29 05:09 | XMS_ITS | Encounter Summary ---
Author Organization [facility] Address [address] [place] [address] Care Team Providers Care Workday Manager Name Role Phone Manuel Schwartz MD Primary Care Provider [phone] Manuel Schwartz MD Unavailable Encounter Details DateTypeDepartmentCare Team (Latest Contact Info)Qjqsarbkuyg22/30/2025Orders Only [facility] [address] [place] [address] Mandie PaulMcintosh, [place] [address] [place] [address] Social History Tobacco UseTypesPacks/DayYears UsedDateSmoking Tobacco: NeverSmokeless Tobacco: NeverSocial Connection and Isolation PanelAnswerDate RecordedIn a typical week, how many times do you talk on the phone with family, friends, or neighbors?Twice a week03/02/2024How often do you get together with friends or relatives?Twice a week03/02/2024How often do you attend rastafari or episcopalian services?Never 03/02/2024ctive Member of Clubs or OrganizationsNot [...] to strenuous exercise (like a brisk walk)?Patient htlpespa44/14/2024On average, how many minutes do you engage in exercise at this level?Patient rmamyxqt96/14/2024 Housing Stability Vital SignAnswerDate RecordedIn the last 12 months, was there a time when you were not able to pay the mortgage or rent on time?No03/02/2024In the last 12 months, how many places have you lived?In the last 12 months, was there a time when you did not have a steady place to sleep or slept in ashelter (including now)?No03/02/2024Estimated Date of Delivery UxtwgourLwk02/09/2026Based on Ultrasound, FHR- 136Sex and Gender Information ValueDate RecordedSex Assigned at BirthNot on fileLegal UewEadhut08/15/2023 8:14 PM EDTGender IdentityNot on fileSexual OrientationNot on filedocumented as of this encounter Plan of Treatment DateTypeDepartmentCare Team (Latest Contact Info)Rehcarilxwd04/12/2025 11:20 AM ESTRoutine [facility] Emma OBGYAnish [address] [place] [phone] Gia Agustin PA [address] [place] [address] documented as of this encounter Procedures Procedure NamePriorityDate/TimeAssociated DiagnosisCommentsPAP TEST, EXTERNAL Dmvldbz2308/02/2025 12:00 AM EDTdocumented in this encounter Results * PAP TEST, EXTERNAL (08/02/2025 12:00 AM EDT) Narrative Authorizing ProviderResult TypeResult StatusCorey Anita DOLAB CYTOLOGY ORDERABLESFinal ResultPerforming OrganizationAddressCity/State/ZIP CodePhone Number EXTERNAL LAB documented in this encounter Visit Diagnoses Not on filedocumented in this encounter Care Teams Team MemberRelationshipSpecialtyStart DateEnd Date Manuel Schwartz MD PCP - [facility]03/02/24 Manuel Schwartz MD [address] [place] [phone] PCP - [facility]07/20/24documented as of this encounter
[2025-08-29] MEDS: 0.9 % SODIUM CHLORIDE 1,000 ML 999 ML IV (05:12)
[2025-08-29 05:14] LABS: Cast Seen? SEEN #/LPF (NONE SEEN); Crystals Seen? None Seen #/HPF (None Seen); Urine Culture Indicated YES-FRMC
[2025-08-29 05:23] LABS: Alanine Aminotransferase 22 U/L (14-59); Albumin Globulin Ratio 0.6; Albumin Level 2.7 g/dL (3.4-5.0); Alkaline Phosphatase 103 U/L (46-116); Anion Gap 11.4; Aspartate Amino Transferase 13 U/L (15-37); Blood Urea Nitrogen 5.0 mg/dL (7.0-18.0); Calcium 8.7 mg/dL (8.5-10.1); Carbon Dioxide 25.2 mmol/L (21.0-32.0); Chloride 104 mmol/L (98-107); Estimated GFR (African America >60 (>=60 mL/min/1.73m^2); Estimated GFR (Non-African Ame >60 (>=60 mL/min/1.73m^2); Globulin 4.3 g/dL; Glucose 94 mg/dL (74-106); Potassium 3.6 mmol/L (3.5-5.1); Sodium 137 mmol/L (136-145); Total Protein 7.0 g/dL (6.4-8.2)
[2025-08-29 05:36] VITALS: BP 128/84; PULSE 84; O2SAT 98
[2025-08-29] MEDS: CEPHALEXIN 500 MG CAPSULE PO (05:45)
== END 2025-08-29 05:51 | disposition home or self-care (01) ==
PROVIDERS: Emergency Provider Emergency Medicine; PCP Family Medicine
DX: O23.42 Unspecified infection of urinary tract in pregnancy, second trimester (principal); N39.0 Urinary tract infection, site not specified; Z3A.23 23 weeks gestation of pregnancy; O99.891 Other specified diseases and conditions complicating pregnancy; R10.9 Unspecified abdominal pain
CPT/HCPCS: 36415; 80053; 81001; 85025; 87086; 99284

== ENCOUNTER 2025-08-29 05:33 | Observation (INO) | payer OTHER, SELFPAY ==
--- OUTSIDE RECORDS SUMMARY | 2025-08-23 19:25 | XMS_ITS | Encounter Summary ---
Author Organization [facility] [employer] [facility] tem Address [id number] [address] [place] [address] Care Team Providers Care Knife Machine Operator Name Role Phone Manuel Schwartz MD Primary Care Provider [phone] Reason for Visit * ReasonCommentsAbdominal PainPatient c/o nausea and vomiting today. Diarrhea for 5 days. * Auth/CertSpecialtyDiagnoses / ProceduresReferred By ContactReferred To Contact Ny Lewis APRN-CNM [address] [facility]ENTERMaribell [facility] [place] [place] [address] Phone: tel: fax: Referral IDStatusReasonStart DateExpiration DateVisits RequestedVisits [id number] Encounter Details DateTypeDepartmentCare Team (Latest Contact Info)Iqxghzakkbb08/04/2025 7:25 PM EST - 08/23/2025 9:27 PM ESTHospital Encounter [facility] [address] [place] [address] Ny Lewis APRN-CNM [address] [place] [address] Discharge Disposition: Home Social History Tobacco UseTypesPacks/DayYears [...] as a part of a household?No 08/23/2025hildcareAnswerDate NjwpvyvyBjksoaiwyCqdfjnc52/11/2019EmploymentAnswer Date NjqrkultAkshbryqihJeccshb20/11/2019Hunger ScreeningAnswerDate Recorded Within the past 12 months we worried whether our food would run out before we got money to buy more.Never True08/23/2025Within the past 12 months the food we bought just didn't last and we didn't have money to get more.Never True 08/23/2025Purpose - LifeAnswerDate RecordedPurpose and direction in lifeUnknown 1Estimated Date of MqgelqreZmfnjibyUxi20/09/2026Based on UltrasoundSex and Gender InformationValueDate RecordedSex Assigned at BirthNot on fileLegal NxfUzwihq51/04/2015 6:13 PM EDTGender IdentityNot on fileSexual OrientationNot on filedocumented as of this encounter Last Filed Vital Signs Vital SignReadingTime TakenCommentsBlood Xhlegxso919/8408/23/2025 7:34 PM EST Diasd94737/04/2025 7:34 PM IQHIdqetptziqx10.7 ??C (98 ??F)08/23/2025 7:34 PM EST Respiratory Lgsu709110/23/2024 7:34 PM ESTOxygen Saturation--Inhaled Oxygen Concentration--Yrttfh060.5 kg (281 lb)08/23/2025 7:34 PM QFFUggkot860.5 cm (5' 2 )08/23/2025 7:34 PM ESTBody [...] of this encounter H&P Notes * Ny eLwis, PROFESSOR OF PSYCHOLOGY-CNM - 08/23/2025 8:52 PM EST Jes Malik is a 24 y.o.. at 22w1d with Estimated Date of Delivery: 12/26/25 who presents with Chief Complaint Patient presents with Abdominal Pain Patient c/o nausea and vomiting today. Diarrhea for 5 days. Care by: Dr. Howard in [place] HPI: States she has had diarrhea for [...] Tubes. Procedure Abnormality Status --------- ------ SST TOP[[id number]] In process Please view results for these [...] GTT: No results found for: GLUF , UCTLBDO5EL , IBECOJR7EM , FGJSHKQ7CX PHYSICAL EXAM: Consitutional: well-appearing; no apparent distress [...] Procedures Procedure NamePriorityDate/TimeAssociated DiagnosisCommentsEXTRA TUBES SST TOP Uwuvira7808/23/2025 8:24 PM EST EXTRA DJHDBZsjegos93/04/2025 8:24 PM EST CBC (NO DIFF)STAT110/23/2024 8:20 PM EST BASIC METABOLIC JNURBBIEJ79/04/2025 8:20 PM EST ALFCBKXHCPKRMG04/04/2025 8:03 PM EST documented in this encounter Results * SST TOP (08/23/2025 8:24 PM EST)ComponentValueRef RangeTest MethodAnalysis TimePerformed AtPathologist SignatureExtra TubeAuto Jdtdhxry01/04/2025 10:01 PM ESTPROPOMONA VALLEY HOSPITAL MEDICAL CENTERpecimen (Source)Anatomical Location / LateralityCollection Method / VolumeCollection TimeReceived TimeBloodVenous blood / Fjpzkxl4708/23/2025 8:24 PM EST08/23/2025 8:24 PM EST Narrative Authorizing ProviderResult TypeResult StatusKathleen Maribell Lewis PROFESSOR OF PSYCHOLOGY-CNMLAB BLOOD ORDERABLESFinal ResultPerforming OrganizationAddressCity/State/ZIP CodePhone Number [facility] [address] [facility] [place] [address], * (ABNORMAL) Basic Metabolic Panel (08/23/2025 8:20 PM EST)ComponentValueRef RangeTest MethodAnalysis TimePerformed AtPathologist CodyjqnrnHCMTQZ825048 - 146 mmol/L110/23/2024 8:37 PM ESTPROEL CENTRO REGIONAL MEDICAL CENTERPOTASSIUM 3.73.5 - 5.0 mmol/L110/23/2024 8:37 PM ESTPROEL [facility] ALLRXCSC07125 - 109 mmol/L110/23/2024 8:37 PM ESTPROEL CENTRO REGIONAL MEDICAL CENTERCARBON IHUAUPZ45(L)22 - 32 mmol/L110/23/2024 8:37 PM ESTPROEL CENTRO REGIONAL MEDICAL CENTERANION TDZ874 - 15 mmol/L110/23/2024 8:37 PM EST [facility]ITALBLOOD UREA YBGYZLRS45 - 23 mg/dL08/23/2025 8:37 PM ESTMIAMI VALLEY HOSPITALCREATININE0.530.40 - 1.00 mg/dL 08/23/2025 8:37 PM ESTMIAMI VALLEY HOSPITALComment:METHOD TRACEABLE TO IDMS YPZLVZGEQRMKOOY290(H)65 - 99 mg/dL08/23/2025 8:37 PM EST [facility]OSPITALCALCIUM8.3(L)8.5 - 10.5 mg/dL08/23/2025 8:37 PM [facility] HOSPITALEGFR Non-Race Dependent>90>=60 ml/min/1.73sq.m110/23/2024 8:37 PM [facility] Comment: eGFR not reported due to non-numeric value for Creatinine. Reported eGFR is based on the CKD-EPI 2020 equation that does not use a race coefficient. Specimen (Source)Anatomical Location / LateralityCollection Method / Volume Collection TimeReceived TimeBloodVenous blood / UnknownVenipuncture / Unknown 08/23/2025 8:20 PM EST08/23/2025 8:23 PM EST Narrative Authorizing ProviderResult TypeResult StatusKathljamilah Lewis PROFESSOR OF PSYCHOLOGY-CNMLAB BLOOD ORDERABLESFinal ResultPerforming OrganizationAddressCity/State/ZIP CodePhone Number [facility] [address] [place] [address], * (ABNORMAL) CBC without diff (08/23/2025 8:20 PM EST)ComponentValueRef Range Test MethodAnalysis TimePerformed AtPathologist SignatureWBC8.94 - 11 X10^9/L 08/23/2025 8:32 PM ESTMIAMI VALLEY HOSPITALRBC Count3.62(L)3.8 - 5.2 X10^12/L110/23/2024 8:32 PM ESTMIAMI [facility]LEY [facility] Ozwtfqnjci04.6(L)11.7 - 15.5 g/dL08/23/2025 8:32 PM ESTMIAMI VALLEY HOSPITALHematocrit31.2(L)35 - 47 %08/23/2025 8:32 PM ESTMIAMI VALLEY HOSPITALMCV8680 - 100 fL08/23/2025 8:32 PM ESTMIAMI VALLEY HOSPITALMCH29.227 - 34 pg08/23/2025 8:32 PM ESTMIAMI VALLEY HOSPITALMCHC33.832 - 36 g/dL08/23/2025 8:32 PM [facility] HOSPITALRDW13.511.5 - 15 %08/23/2025 8:32 PM [facility] HOSPITALPlatelet Hmlvc907161 - 450 X10^9/L110/23/2024 8:32 PM ESTMIAMI VALLEY HOSPITALMPV9.27 - 12 fL08/23/2025 8:32 PM EST [facility]ITALpecimen (Source)Anatomical Location / LateralityCollection Method / VolumeCollection TimeReceived TimeBloodVenous blood / UnknownVenipuncture / Slzvvxa0308/23/2025 8:20 PM EST08/23/2025 8:23 PM EST Narrative Authorizing ProviderResult TypeResult StatusKathleen Maribell Lewis PROFESSOR OF PSYCHOLOGY-CNMLAB BLOOD ORDERABLESFinal ResultPerforming OrganizationAddressCity/State/ZIP CodePhone Number [facility] [address] [place] [address], * (ABNORMAL) Urinalysis (08/23/2025 8:03 PM EST)ComponentValueRef RangeTest MethodAnalysis TimePerformed AtPathologist SignatureCOLORYellowYellow 08/23/2025 8:41 PM ESTMIAMI VALLEY HOSPITALTURBIDITYHazy(A)Clear 08/23/2025 8:41 PM [facility]PITALPECIFIC GRAVITY1.020 1.003 - 1.1895108/23/2025 8:41 PM [facility] HOSPITALNITRITE FdjeyqkeLjxetlrx88/04/2025 8:41 PM [facility] PH,URINE7.05.0 - 8.511 8:41 PM [facility] LEUKOCYTE NXMKJFSODkpglwllLjscvkpo07/04/2025 8:41 PM ESTPROEL CENTRO REGIONAL MEDICAL CENTERPROTEINTrace(A)Nnjwxpzy18/04/2025 8:41 PM ESTPROEL CENTRO REGIONAL MEDICAL CENTERKETONES (URINE)CsemtuedSasxbdrh74/04/2025 8:41 PM EST [facility]OS[facility]ITALUROBILINOGEN>=8.0 eu/dL(A)0.2 eu/dL, 1.0 eu/dL08/23/2025 8:41 PM ESTPROEL CENTRO REGIONAL MEDICAL CENTERBILIRUBIN (URINE)KjrpagojSftmvxmy59/04/2025 8:41 PM ESTMIAMI VALLEY HOSPITALBLOOD/QBAYnolbzpvJpsodjep41/04/2025 8:41 PM ESTMIAMI VALLEY HOSPITALAMORPHOUS SEDIMENTPresent(A)None08/23/2025 8:41 PM EST [facility]OSPITALQUAMOUS ILYMOFJFCQ83 - 8:41 PM ESTMIAMI VALLEY HOSPITALGLUCOSE (URINE)NegativeNegative, 250 mg/dL08/23/2025 8:41 PM ESTDELAWARE COUNTY HOSPITALpecimen (Source)Anatomical Location / LateralityCollection Method / VolumeCollection TimeReceived TimeUrineUrine specimen collection, clean catch / Unknown 08/23/2025 8:03 PM EST08/23/2025 8:23 PM EST Narrative Authorizing ProviderResult TypeResult StatusKathleen S Phenix PROFESSOR OF PSYCHOLOGY-CNMURINE ORDERABLESFinal ResultPerforming OrganizationAddressCity/State/ZIP CodePhone Number [facility] [address] documented in this encounter Visit Diagnoses Not on filedocumented in this encounter Care Teams Team MemberRelationshipSpecialtyStart DateEnd Date Manuel Schwartz MD PCP - GeneralFamily Medicine01/21/19documented as of this encounter
--- OUTSIDE RECORDS SUMMARY | 2025-08-29 05:37 | XMS_ITS | Encounter Summary ---
Author Organization [employer] Address [facility] [id number] [place] [address] Care Team Providers Care Rubber Thread Spooler Name Role Phone Manuel Schwartz MD Primary Care Provider [phone] Encounter Details DateTypeDepartmentCare Team (Latest Contact Info)Avdpkkhlltz44/04/2025Travel Social History Tobacco UseTypesPacks/DayYears UsedDateSmoking Tobacco: NeverSmokeless [...] RecordedIn the past 12 months has the [employer], gas, oil, or water [employer] threatened to shut off services in your home?No08/23/2025Housing InstabilityAnswerDate RecordedAre you worried or concerned that in the next two months you may not have stable housing that you own, rent or stay in as a part of a household?No 08/23/2025hildcareAnswerDate AlyhpogmUaptegfmaXstchft20/11/2019EmploymentAnswer Date OuzisyxtQtcqrblvfxJdyqffh10/11/2019Hunger ScreeningAnswerDate Recorded Within the past 12 months we worried whether our food would run out before we got money to buy more.Never True08/23/2025Within the past 12 months the food we bought just didn't last and we didn't have money to get more.Never True 08/23/2025Purpose - LifeAnswerDate RecordedPurpose and direction in lifeUnknown 1Estimated Date of PspsfytjTpqdtrpdLai22/09/2026Based on UltrasoundSex and Gender InformationValueDate RecordedSex Assigned at BirthNot on fileLegal YpyYcklro39/04/2015 6:13 PM EDTGender IdentityNot on fileSexual OrientationNot on filedocumented as of this encounter Plan of Treatment Not on file documented as of this encounter Visit Diagnoses Not on filedocumented in this encounter Care Teams Team MemberRelationshipSpecialtyStart DateEnd Date Manuel Schwartz MD PCP - GeneralFamily Medicine01/21/19documented as of this encounter
--- OUTSIDE RECORDS SUMMARY | 2025-08-29 05:37 | XMS_ITS | Clinical Summary ---
Author Organization [facility] Address [address] [place] [address] Care Team Providers Care Wellness Coordinator Name Role Phone Manuel Schwartz MD Primary Care Provider [phone] Manuel Schwartz MD Unavailable Allergies Active AllergyReactionsCriticalityNoted XigfJpeeshpjTezbhygcqedRtohpgz18/15/2001 Medications MedicationSigDispense QuantityRefillsLast FilledStart DateEnd DateStatus omeprazole [...] 5Active Active Problems ProblemNoted DateDiagnosed DateRight sided zexhvskb18/13/2024 Assessment & Plan (06/01/2024 1:53 PM EDT): Recent pain and treat with prednisone. Use flexeril PRN. Check x-ray and start PT. Zevwdpuhyz55/10/2024 Assessment & Plan (04/28/2024 2:19 PM EDT): Concerned of possible and check labs. Major depressive disorder, recurrent episode, mild03/02/2024 Assessment & Plan (06/01/2024 1:53 PM EDT): Mild symptoms and letter for emotional support animal to patient. Gastroesophageal reflux disease without fdloolhwyry30/14/2024 Assessment & Plan (06/01/2024 1:53 PM EDT): Symptoms controlled with omeprazole and continue. Assessment & Plan (04/28/2024 2:19 PM EDT): Symptoms controlled with omeprazole and continue. Mild intermittent asthma without jgjinqhgpytj19/14/2024llergic rhinitis due to ikrtzw4103/02/2024Morbid obesity due to excess uhqadlqs04/14/2024 Assessment & Plan (06/01/2024 1:54 PM EDT): [...] for evaluation and possible endoscopy. Encounters DateTypeDepartmentCare TjdxOwbfrlxaqls64/30/2025Orders Only [facility] [place] [address] Janneth Paul MA 08/10/2025 11:00 AM EDTAncillary Procedure [facility] [place] [address] Screening, , for anatomic survey ([facility])08/02/2025 1:40 PM EDT Routine [facility] [place] [address] Jefferson Howard DO Second trimester ([facility]); 19 weeks gestation of ([facility]); Screening, , for anatomic survey ([facility]); LGSIL of cervix of undetermined tmdkxsaipivi68/14/2025amboo flowsheet [facility] [place] [address] Jefferson Howard DO 07/25/2025linisync Result Encounter [facility] External Department Unsolicited Gia Agustin PA 07/06/2025Telephone [facility] [place] [address] Janneth Paul MA 07/05/2025 2:00 PM EDTRoutine N[facility]ibell [place] [address] Gia Agustin PA 15 weeks gestation of ([facility]); Second trimester ([facility]); Exposure to STD; Vaginal discharge; Oilemd7107/05/2025External Result Encounter [facility] External Department Unsolicited Gia Agustin PA 07/05/2025amboo flowsheet [facility] [place] [address] Gia Agustin PA 07/04/20250677Ajvlkp05/08/2025Patient Outreach [facility] [place] [address] [place] [address] Gia Hernandez LPN 06/24/2025bstract [facility] [place] [address] Gia Hernandez LPN 06/09/2025bstract [facility] [address] [place] [address] Jefferson Howard DO 06/07/2025 1:50 PM EDTRoutine [facility] [place] [address] Jefferson Howard DO First trimester ([facility]); 11 weeks gestation of ([facility]); Right ovarian cyst; Nausea; PCOS (polycystic ovarian syndrome)5Clinisync Result Encounter [facility] External Department Unsolicited Jefferson Howard DO 5Bamboo flowsheet [facility] [address] [place] [address] Jefferson Howard DO 05/31/20255239Brzaxr86/11/2025bstract [facility] [address] [place] [address] Jefferson Howard DO from Last 3 Months Social History Tobacco UseTypesPacks/DayYears UsedDateSmoking Tobacco: NeverSmokeless Tobacco: Never Tobacco Cessation:Counseling Given: Not Answered Social Connection and Isolation PanelAnswerDate RecordedIn a typical week, how many times do you talk on the phone with family, friends, or neighbors?Twice a week03/02/2024How often do you get together with friends or relatives?Twice a week03/02/2024How often do you attend oriental orthodox or alevism services?Never 03/02/2024ctive Member of Clubs or OrganizationsNot [...] to strenuous exercise (like a brisk walk)?Patient /14/2024On average, how many minutes do you engage in exercise at this level?Patient yrrgdpnv99/14/2024 Housing Stability Vital SignAnswerDate RecordedIn the last 12 months, was there a time when you were not able to pay the mortgage or rent on time?No03/02/2024In the last 12 months, how many places have you lived?In the last 12 months, was there a time when you did not have a steady place to sleep or slept in [place] (including now)?No03/02/2024Estimated Date of Delivery UtjntgvoRsj79/09/2026Based on Ultrasound, FHR- 136Sex and Gender Information ValueDate RecordedSex Assigned at BirthNot on fileLegal YzbEmfrpv68/15/2023 8:14 PM EDTGender IdentityNot on fileSexual OrientationNot on file Last Filed Vital Signs Vital SignReadingTime TakenCommentsBlood Ropdthty724/6210 1:55 PM EDT Dvirw14871/13/2024 1:21 PM XOJVlovybefahq49.6 ??C (97.8 ??F)06/01/2024 1:21 PM EDTRespiratory Mcym873506/01/2024 1:21 PM EDTOxygen Vanslhoarv45%06/01/2024 1:21 PM EDTInhaled Oxygen Concentration--Usbidg096 kg (281 lb 1.9 oz)08/02/2025 1:55 PM FSFRgjkhe760.9 cm (5' 1 )06/01/2024 1:21 PM EDTBody Mass Index53.1208 1:21 PM EDT Plan of Treatment DateTypeDepartmentCare Team (Latest Contact Info)Dshyvjlrnue17/12/2025 11:20 AM ESTRoutine [facility] [address] [place] [phone] Gia Agustin PA [address] [place] [address] Health MaintenanceDue DateLast DoneCommentsPneumococcal Vaccine: Pediatrics (0 to 5 Years) and At-Risk Patients (6 to 64 Years) (1 of 2 - PCV)2019COVID- 19 Vaccine ( - season)2025Influenza Vaccine (#1)2025 Procedures Procedure NamePriorityDate/TimeAssociated DiagnosisCommentsUS OB 14+ WEEKS ANATOMY SEWVQjknzqn56/22/2025 11:57 AM EDT Screening, , for anatomic survey ([facility]) PAP TEST, XXLLSRAPJzyqule54/14/2025 12:00 AM EDTAFP, SERUM, OPEN SPINA BIFIDA Xadbfte3807/25/2025 12:10 PM EDT POCT URINALYSIS SJVBCLITDeuymux27/16/2025 2:19 PM EDT 15 weeks gestation of ([facility]) Second trimester ([facility]) RECURRENT VAGINITIS (HTRX)Ejqabds7707/05/2025 2:05 PM EDT ALL THYROID STIM GEORRUWGpbnfrw07/19/2025 3:43 PM EDT from Last 3 Months [...] within 10 days. MATERNAL AGE AT EDD25.1. yrTBHRACECaucasian.PAJYEBSXX941. lbsTBHINSULIN DEP DIABETESNo.TBHMULTIPLE GESTATIONNo.TBHAFP VALUE31.7. ng/mLTBHAFP MOM1.07.TBHOSBR RISK 1 BR2334.TBHINTERPRETATIONComment.TBHComment: Interpretation: Screen Negative This result is screen [...] Customer Services to discuss available options. ??The [employer] recommends amniocentesis be offered to women age 35 and older. COMMENT:Comment.TBHComment: Caitlin Palafox, Ph.D., [facility] Director References: Available Upon Request. Multiples Of Median Cutoffs ?For AFP Elevations Caro ?? 2.5 ? Black ?2.8 IDD ? 2.0 ? Twins ?4.5 ?Abbreviation Definitions IDD - Insulin Dep Diabetes OSBR - Open Spina Bifida Risk For further inquiries contact [facility] at [phone]. This test was developed and its performance characteristics determined by [employer]. It has not been cleared or approved by the Food and Drug Administration. Performed at: ??TG - [facility] [place], [place] ??[id number] Grievance And Appeals Coordinator: Leonidas Oneill [facility], Phone: ??[phone] Specimen (Source)Anatomical Location / LateralityCollection Method / Volume Collection TimeReceived Time07/25/2025 12:10 PM EDT1 12:14 PM EDT Narrative [facility] - 07/26/2025 11:07 PM EDT N N ULTRASOUND [id number] 1 15 N 1 Y 285 N [...] UA1.0151 - 1.03Blood, UA PositiveNegative - 50 Lincoln/mcLpH, UA6.05 - 9Protein, UANegativeNegative - 2000(20) ++++ mg/dLUrobilinogen, UA1.00.2 - 12 mg/dLLeukocytes, UANegative Negative - 500+++ Skyler/mcLNitrite, UANegativeNegative - PositiveSpecimen (Source)Anatomical Location / LateralityCollection Method / VolumeCollection TimeReceived YdiwOkhlv19/16/2025 2:19 PM EDT Narrative Authorizing ProviderResult TypeResult StatusStoneSprings Hospital Center TEST ENTER/EDIT ORDERABLESFinal Result * (ABNORMAL) RECURRENT VAGINITIS (HTRX) (07/05/2025 2:05 PM EDT)ComponentValue Ref RangeTest MethodAnalysis TimePerformed AtPathologist SignatureATOPOBIUM ETVRAGC833.961 - 24.689 ppm07/06/2025 7:10 AM EDTHealthTrackRx at [facility] ATOPOBIUM VAGINAENot Tufsjbut51.961 - 24.9 07/06/2025 7:10 AM EDT [facility] HospitalBVAB 2,3 (BACTERIAL VAGINOSIS ASSOCIATED BACTERIA 2, 3); MOBILUNCUS QMJ410.961 - 24.689 ppm07/06/2025 7:10 AM EDTHealthTrackRx at [facility] HospitalBVAB 2,3 (BACTERIAL VAGINOSIS ASSOCIATED BACTERIA 2, 3); MOBILUNCUS SPP Not Ncotnvnr41.961 - 24.689 ppm07/06/2025 7:10 AM EDTHealthTrackRx at [facility] CYDNEY ALBICANS, PARAPSILOSIS, XSZBUGCEMO257.000 - 30.347 07/06/2025 7:10 AM EDTHealthTrackRx at LabPortCANDIDA ALBICANS, PARAPSILOSIS, TROPICALISNot Abczwnbl06.000 - 30.347 ppm07/06/2025 7:10 AM EDTHealthTrackRx at LabPort CYDNEY RONIWLGS976.000 - 31.618 ppm07/06/2025 7:10 AM EDTHealthTrackRx at LabPortCANDIDA GLABRATANot Yhaznlzq43.000 - 31.618 ppm07/06/2025 7:10 AM EDT [facility] LabPortCANDIDA AEENFW419.000 - 30.873 ppm07/06/2025 7:10 AM EDTHealthTrackRx at LabPortCANDIDA KRUSEINot Ozpdxngt31.000 - 30.873 ppm 07/06/2025 7:10 AM EDTHealthTrackRx at LabPortCHLAMYDIA AHCMZVPYRTF189.000 - 31.586 ppm07/06/2025 7:10 AM EDTHealthTrackRx at LabBluffton [facility] Medical CenterCHLAMYDIA TRACHOMATIS Not Gnorfgnl91.000 - 31.586 ppm07/06/2025 7:10 AM EDTHealthTrackRx at LabPort GARDNERELLA GBTZJIUWL05.049(A)19.961 - 24.689 ppm07/06/2025 7:10 AM EDT [facility] HospitalGARDNERELLA VAGINALISDetected(A)19.961 - 24.689 ppm 07/06/2025 7:10 AM EDTHealthTrackRx at LabPortMEGASPHAERA (TYPES 1, 2)019.961 - 24.689 ppm07/06/2025 7:10 AM EDTHealthTrackRx at LabPortMEGASPHAERA (TYPES 1, 2)Not Omxuvyhk71.961 - 24.689 ppm07/06/2025 7:10 AM EDTHealthTrackRx at LabPortNEISSERIA VPKYSWMJTIJ962.000 - 32.587 ppm07/06/2025 7:10 AM EDT [facility] at LabPortNEISSERIA GONORRHOEAENot Wiveaonn42.000 - 32.587 ppm 07/06/2025 7:10 AM EDTHealthTrackRx at LabPortTRICHOMONAS TRIMELEJF178.000 - 31.995 ppm09/ 7:10 AM EDTHealthTrackRx at [facility] HospitalTRICHOMONAS VAGINALIS Not Dxmuejct29.000 - 31.995 ppm07/06/2025 7:10 AM EDTHealthTrackRx at [facility] MYCOPLASMA GUFRSYLECF366.961 - 24.689 ppm07/06/2025 7:10 AM EDTHealthTrackRx at [facility] HospitalMYCOPLASMA GENITALIUMNot Vdiuwkhf40.961 - 24.689 ppm07/06/2025 7:10 AM EDTHealthTrackRx at [facility] HospitalTET B, TET M23.864(A)23.000 - 27.500 ppm 07/06/2025 7:10 AM EDTHealthTrackRx at [facility], TET MDetected(A)23.000 - 27.500 ppm07/06/2025 7:10 AM EDTHealthTrackRx at [facility] HospitalSpecimen (Source) Anatomical Location / LateralityCollection Method / VolumeCollection Time Received MqjiOnqhdh76/16/2025 2:05 PM EDT07/06/2025 1:36 AM EDT Narrative Authorizing ProviderResult TypeResult StatusAmy Washington [facility] BLOOD ORDERABLES Final ResultPerforming OrganizationAddressCity/State/ZIP CodePhone Number [facility] [address] [address] * ALL THYROID STIM HORMONE (06/07/2025 3:43 [...] DateEnd Date Manuel Schwartz MD PCP - [facility]03/02/24 Manuel Schwartz MD [address] [place] [address] PCP - [facility]07/20/24
--- OUTSIDE RECORDS SUMMARY | 2025-08-29 05:37 | XMS_ITS | Encounter Summary ---
Author Organization [facility] tem Address [id number] [place] [address] Care Team Providers Care Catapult And Arresting Gear Officer Name Role Phone Manuel Schwartz MD Primary Care Provider Encounter Details DateTypeDepartmentCare Team (Latest Contact Info)Gfdfcqoqats28/04/2025 - 08/23/2025 7:18 PM [facility] [address] [place] [address] Discharge Disposition: ED Dismiss - [...] as a part of a household?No 08/23/2025hildcareAnswerDate BdhvarkwFyyfmhietRohjdem41/11/2019EmploymentAnswer Date CqdhiwsaIwvfhhfkivAwoainv25/11/2019Hunger ScreeningAnswerDate Recorded Within the past 12 months we worried whether our food would run out before we got money to buy more.Never True08/23/2025Within the past 12 months the food we bought just didn't last and we didn't have money to get more.Never True 08/23/2025Purpose - LifeAnswerDate RecordedPurpose and direction in lifeUnknown 1Estimated Date of PyijjwpbPqfvfytdZog19/09/2026Based on UltrasoundSex and Gender InformationValueDate RecordedSex Assigned at BirthNot on fileLegal LudTfqmdp59/04/2015 6:13 PM EDTGender IdentityNot on fileSexual OrientationNot [...]
--- OUTSIDE RECORDS SUMMARY | 2025-08-29 05:37 | XMS_ITS | CCD ---
Author Organization [facility] Care Team Providers Care Bobbin Stripper Name Role Phone DEMETRIOC, DR WILLS Attending Unavailable NADERER, DR MANUEL Souza Primary Care Unavailable MISC, DR WILLS Admitting Unavailable MISC, DR WILLS Consulting Unavailable NADERER, DR MANUEL Souza Primary Care Unavailable KARASIK ., DR GAN Admitting Unavailabl e KARASIK ., DR GAN Consulting Unavailabl e KARASIK ., DR GNA Attending Unavailabl e KARASIK ., DR GAN [...] GAN Procedure Practitioner Em vailable BERT, DR MNAUEL Souza Primary Care Unavailable KARASIK ., DR [...] Unavailable ANITA ., DR ANDREA Attending Unavailable GLENVIL, DR AISHWARYA Luis Consulting Unavailable NADERER, DR [...] Unavailable Manuel Noel MD Primary Care Provider [phone] Mir Silva MD Attending Provider Manuel Noel MD Primary Care Provider [phone] Manuel Noel MD Unavailable Manuel Noel MD Primary Care Provider [phone] Krishna Saxena MD Attending Provider [phone] Jefferson Howard DO Attending Provider Manuel Noel [...] Attending Unavailable MANUEL NOEL Primary Care Unavailable AMO PETERSEN Attending Unavailable MANUEL NOEL Primary Care Unavailable WONG HERNDON Admitting Unavailable WONG HERNDON Attending Unavailable MANUEL NOEL Primary Care Unavailable Allergies Allergy ClassificationReported Allergen(s)Allergy TypeDate of OnsetReaction(s) Facility (2 sources)Penicillins; Translations: [PENICILLINS]Drug allergy (disorder) 16-31-6795Tla [facility] (20 sources)PenicillinsDrug Wfflofzlloz81-28-5705HczzttyGRGZ [facility] (1 source)PenicillinsDrug allergy (disorder)02-25[facility]2699[facility] Medications Current Medications MedicationDrug Class(es)DatesSig (Normalized)Sig (Original)200 actuat albuterol 0.09 mg/actuat dry powder inhaler (14 sources)beta2-Adrenergic AgonistStart: 56-46-1783Vdnsmlsuh Sulfate 90 mcg/actuation aerosol powdr breath activated Active 1 INH INHALATION EVERY 4-6 HOURS as needed October 05, 2024 1:00amStart: 02-27-2024 End: 72-95-8655scoa 2 puff(s) by inhalation every four hoursalbuterol HFA 90 mcg/act inhaler Indications: Mild intermittent intrinsic asthma without status asthmaticus without complication (CMS/HCC) Inhale 2 puffs every 4 (four) hours if needed for shortness of breath 18 g 3 02/27/2024 12/22/2024 Discontinued Start: 12-12-2021 End: 06-06-3187Ayziifrwl Sulfate (Ventolin Hfa) 90 mcg/actuation HFA aerosol inhaler Discontinued 2 INH DHDELSUCPLU2U as needed for sob December 12, 2021 1:00am August 24, 2024 10:32ammeclizine hydrochloride 25 mg oral tablet (3 sources)AntiemeticStart: 12-01-0972Illvpublr 25 mg tablet Active 25 MG PO As Directed as needed for dizziness August 24, 2024 1:00amomeprazole 40 mg delayed release oral capsule (20 sources)Proton Pump InhibitorStart: 03-02-2024 End: 37-05-5261ytun 1 capsule by mouth in the morningomeprazole (PriLOSEC) [address] capsule Indications: Gastroesophageal reflux disease, unspecified whether esophagitis present Take 1 capsule (40 mg) by mouth in the morning and 1 capsule (40 mg) in the evening. Take before meals. 60 capsule 5 05/05/2025 ActiveStart: 12-14-2021 End: 29-94-8472qtue 1 capsule by mouth once dailyOmeprazole 20 mg Capsule,Delayed Release(Dr/Ec) Discontinued 20 MG PO Daily December 14, 2021 1:00am September 07, 2024 2:33pmStart: 11-20-2017 End: 87-47-4548Lidnafmobr 20 mg Capsule,Delayed Release(Dr/Ec) Discontinued 20 MG PO as needed for Acne November 20, 2017 1:00am December 12, 2021 3:38pm ondansetron 4 mg oral tablet (20 sources)Serotonin-3 Receptor AntagonistStart: 11-11-2024 End: 44-89-9965krvc 1 tablet by mouth every six hours [...] hydrochloride 12.5 mg oral tablet (20 sources)PhenothiazineStart: 32-94-4189sivl 1 tablet by mouth every six hours as needed for nausea and vomiting and nausea and nauseapromethazine (Phenergan) 12.5 MG tablet Indications: Nausea Take 1 tablet (12.5 mg) by mouth every 6 (six) hours if needed for nausea or vomiting for up to 30 doses Take 1 tablet by mouth every 6 hours as needed for nausea. 30 tablet 2 07/05/2025 ActiveStart: 16-03-6114ggqs 1 tablet by mouth every six hours as needed for nausea and vomitingPromethazine 25 mg tablet Active 25 MG PO Every 6 hours as needed for nausea and vomiting August 27, 2024 1:00am End: 47-56-8475uxunulfpoxqi (Phenergan) 12.5 MG tablet Take by mouth 05/05/2025 Discontinuedsucralfate 1000 mg oral tablet (2 sources)Aluminum ComplexStart: 19-83-6887itds 1 tablet by mouth twice daily Sucralfate (Carafate) 1 gram tablet Active 1 GM PO Twice daily 60 October 05, 2024 1:00am Completed/Discontinued Medications MedicationDrug Class(es)DatesSig (Normalized)Sig (Original)ARIPiprazole 2 mg oral tablet (3 sources)Atypical AntipsychoticStart: 01-26-2019 End: 48-94-0367krbp 1 tablet by mouth once dailyAripiprazole 2 mg Tablet Discontinued 2 MG PO Daily 14 January 26, 2019 12:00am December 12, 2021 3:38pmcyclobenzaprine hydrochloride 10 mg oral tablet (4 sources)Muscle RelaxantStart: 06-01-2024 End: 52-02-8857prpo 1 tablet by mouth three times daily as needed for muscle spasmscyclobenzaprine (Flexeril) 10 MG tablet Indications: Right sided sciatica Take 1 tablet (10 mg) by mouth 3 (three) times a day as needed for muscle spasms 30 tablet 06/01/2024 11/11/2024 Discontinued(Other)Drospirenone-Ethinyl Estradiol (3 sources)Progestin, EstrogenStart: 12-12-2021 End: 91-20-9149ipgi 1 tablet by mouth once dailyDrospirenone-Ethinyl Estradiol 3-0.03 mg tablet Discontinued 1 TAB PO Daily December 12, 2021 1:00am August 24, 2024 10:33amStart: 12-12-2021 End: 45-56-9154esee 1 tablet by mouth once dailyDrospirenone-Ethinyl Estradiol 3-0.03 mg tablet Discontinued 1 TAB PO Daily December 12, 2021 12:00am August 24, 2024 9:33amDULoxetine 30 mg delayed release oral capsule (3 sources)Serotonin and Norepinephrine Reuptake InhibitorStart: 12-14-2021 End: 93-11-5897ziis 1 capsule by mouth once daily at bedtimeDuloxetine 30 mg Capsule,Delayed Release(Dr/Ec) Discontinued 30 MG PO Daily at bedtime December 14, 2021 1:00am August 24, 2024 10:32amergocalciferol 1.25 mg oral capsule (3 sources)Provitamin D2 CompoundStart: 01-26-2019 End: 31-41-8815Hkhvtpvtktvxdb (Vitamin D2) 50,000 unit Capsule Discontinued 41918 UNIT PO Sa@0900 2 January 26, 2019 12:00am December 12, 2021 3:38pm ethinyl estradiol 0.035 mg / norgestimate 0.25 mg oral tablet (9 sources)Progestin, EstrogenStart: 12-22-2024 End: 02-75-1099kfab 1 tablet by mouth once daily, then take 1 tablet by mouth once dailynorgestimate-ethinyl estradiol (Sprintec 28) 0.25-35 MG-MCG tablet Indications: control counseling Take 1 tablet by mouth Daily for 28 days Take 1 tablet by mouth daily 28 tablet 11 12/22/2024 04/27/2025 Discontinued (Therapy completed)sertraline 50 mg oral tablet (3 sources)Serotonin Reuptake InhibitorStart: 01-26-2019 End: 96-04-3950cljl 1 tablet by mouth once dailySertraline 50 mg Tablet Discontinued 50 MG PO Daily 14 January 26, 2019 12:00am December 12, 2021 3:38pm Problems Active Problems Problem ClassificationProblemDateDocumented DateEpisodic/ChronicAcute posthemorrhagic anemia (1 source)Acute posthemorrhagic anemia; Translations: [ACUTE POSTHEMORRHAGIC ANEMIA]Onset: 83-81-2029IlbqayoiJffqyvlarhtkzk/social admission (2 sources)Patient encounter status; Translations: [Person consulting for explanation of examination or test findings]11-14-3875MhusxiceIpzfyq (20 sources)Mild intermittent asthma; Translations: [Mild intermittent asthma, uncomplicated]Onset: 250225-82-1078VbeamubNkedqv of cervix (3 sources)Cervical intraepithelial neoplasia grade 1; Translations: [Low grade squamous intraepithelial lesion on cytologic smear of cervix (LGSIL)]01-17-2025 EpisodicContraceptive and procreative management (3 sources)Subcutaneous contraceptive implant present; Translations: [Encounter for surveillance of implantable subdermal contraceptive]18-28-0697Wcgeyura Esophageal disorders (20 sources)Gastroesophageal reflux disease; Translations: [Gastro-esophageal reflux disease without esophagitis]Onset: 145909-16-2909IqobuqpFzwqoryuoo disorders (2 sources)Esophagitis; Translations: [Esophagitis]05-03-5441Wwrjqpcf Immunizations and screening for infectious disease (4 sources)Encounter for screening for infections with a predominantly sexual mode of transmission; Translations: [Contact with and (suspected) exposure to infections with a predominantly sexual mode of transmission]Onset: 06-10-2022 88-15-6966ArvwwzybKtuwtnkeg (1 source)Influenza due to other identified influenza virus with other respiratory manifestations; Translations: [FLU D/T OTH ID FLU VIR OTH RSP MANF] Onset: 69-75-3173NaxdbmybPgbxgajfd disorders (20 sources)Irregular menstruation, unspecified; Translations: [Amenorrhea] Onset: 31-25-9555MuuhnleRnhj disorders (20 sources)Recurrent major depression; Translations: [Major depressive disorder, recurrent, unspecified]Onset: 254107-65-6506NqsbeciZxflkk and vomiting (11 sources)Nausea; Translations: [Nausea]59-93-2690TtekwhbuEpqmq complications of ; puerperium affecting management of mother (1 source)Obesity complicating childbirth; Translations: [OBESITY COMPLICATING CHILDBIRTH]Onset: 14-21-3108KgnkoyoRdpno complications of ; puerperium affecting management of mother (1 source)Anemia of the puerperium; Translations: [ANEMIA OF THE PUERPERIUM] Onset: 70-50-2741FhimgzqGtupp complications of (2 sources)Obesity complicating , third trimester; Translations: [OBESITY COMP THIRD TRI]Onset: 32-47-6732BqnbujnDhvky complications of (4 sources) related conditions, unspecified, unspecified trimester; Translations: [ RELATED COND UNS UNS TRI]Onset: 45-29-8470TqjjeusgNfdee complications of (1 source)Diseases of the respiratory system complicating , third trimester; Translations: [DISEASESRESP SYS COMP PREG 3RD TRI]Onset: 09-24-2022 EpisodicOther complications of (1 source)Other specified related conditions, unspecified trimester; Translations: [Other specifiedpregnancy related conditions, unspecified trimester]Onset: 27-39-4126OyypldxoCjsfm ear and sense organ disorders (3 sources)Otalgia, left ear; Translations: [OTALGIA LEFT EAR]Onset: 09-22-2022 EpisodicOther endocrine disorders (5 sources)Polycystic ovary syndrome; Translations: [Polycystic ovarian syndrome]42-11-9933FgdwfyaHglah female genital disorders (2 sources)Vaginal discharge; Translations: [Other specified noninflammatory disorders of vagina]80-84-2311YrzzflybDuxap gastrointestinal disorders (3 sources)Constipation; Translations: [Constipation, unspecified]01-21-2019 EpisodicOther gastrointestinal disorders (1 source)Constipation, unspecified; Translations: [Constipation, unspecified] 13-26-9400EyjebgyhDvqwf gastrointestinal disorders (1 source)Diarrhea, unspecified; Translations: [Diarrhea, unspecified]Onset: 93-75-5439AliqdpzmIzhub nutritional; endocrine; and metabolic disorders (20 sources)Morbid obesity; Translations: [Morbid (severe) obesity due to excess calories]Onset: 018843-18-9492XaxwvteIstpe screening for suspected conditions (not mental disorders or infectious disease) (20 sources)Encounter for screening for malignant neoplasm of cervix; Translations: [Encounter for other specified screening]Onset: 03-07-6253DfagnxarAmkfe upper respiratory disease (20 sources)Allergic rhinitis due to pollen; Translations: [Allergic rhinitis due to pollen]Onset: 695454-94-4745YtyedrvTdegaa media and related conditions (1 source)Unspecified nonsuppurative otitis media, bilateral; Translations: [UNS NONSUPPURATIVE OTITIS MEDIA OSCAR]Onset: 90-62-3766RqffgbrdNxahtxg cyst (5 sources)Cyst of right ovary; Translations: [Unspecified ovarian cyst, right side]38-03-2495QvdjyoqxFoxgjfwk codes; unclassified (1 source)38 weeks gestation of ; Translations: [38 WEEKS GESTATION OF ]Onset: 95-78-9134WaubwplgOerryhzh codes; unclassified (1 source)29 weeks gestation of ; Translations: [29 WEEKS GESTATION OF ]Onset: 66-30-2909CagiounfQwcadazj codes; unclassified (2 sources)Gestation period, 11 weeks; Translations: [11 weeks gestation of ]55-64-9016DzlbrfudSxnrjvck codes; unclassified (2 sources)Gestation period, 15 weeks; Translations: [15 weeks gestation of ]15-87-8426RmdbxhqdVlenaueg codes; unclassified (2 sources)Gestation period, 19 weeks; Translations: [19 weeks gestation of ]25-03-7511ThwsnuzuElmdygw disorders (1 source)Disorder of thyroid gland; Translations: [Disorder of thyroid, unspecified]26-86-4785SkkpqedhBkgtnopqghar (2 sources)OT SPCF DIS/COND COMPL ; Translations: [OT SPCF DIS/COND COMPL ]Onset: 71-50-3392Jfrgenzozpbj (1 source)STOMACH PAIN, DIARRHEAOnset: 08-28-2024 Past or Other Problems Problem ClassificationProblemDateDocumented DateEpisodic/ChronicAbdominal pain (20 sources)Indigestion; Translations: [Epigastric pain]Onset: 03-02-2024 Resolved: 889587-26-1482HadpxqexTprqcghlllzyj gastroenteritis (1 source)Noninfective gastroenteritis and colitis, unspecified; Translations: [Noninfective gastroenteritis and colitis, unspecified]Onset: 10-52-5125Jnyfhgoq Other complications of (4 sources)Abnormal ultrasonic finding on screening of mother; Translations: [ABNORM US SCREEN MOTHER]Onset: 03-07-6606NrzxfrxoCvese and delivery including normal (20 sources)Single live ; Translations: [Encounter for supervision of other normal , third trimester]Onset: 41-43-5371GlbeugreJdsxsnru codes; unclassified (1 source)26 weeks gestation of ; Translations: [26 WEEKS GESTATION OF ]Onset: 19-60-2423GgumcdhkRdozkwty codes; unclassified (1 source)18 weeks gestation of ; Translations: [18 WEEKS GESTATION OF ]Onset: 27-27-1525SkmojgxtOtlhunmt codes; unclassified (1 source)Less than 8 weeks gestation of ; Translations: [< 8 WEEKS GESTATION ]Onset: 14-37-1602WbsvcqbuNtrmycrozcc; intervertebral disc disorders; other back problems (20 sources)Cervicalgia; Translations: [Torticollis]Onset: 48-61-4092Rmpzrkys Results Test NameValueInterpretationReference RangeFacilityBASIC METABOLIC PANELon 30-46-0879Ulksd gap [Moles/Vol]10 mmol/LNormal5-15[facility] Comment on above:Performed By: #### BMP #### [facility] ([address] [address] VIRCalcium [Mass/Vol]8.3 mg/dLLow8.5-10.5PHocking Valley Community HospitalComment on above:Performed By: #### BMP #### [facility] ([address] [address] VIRChloride [Moles/Vol]103 mmol/GTayhvv39-945DglSyploaMethodist HospitalComment on above:Performed By: #### BMP #### [facility] ([address] [address] VIRCO2 [Moles/Vol]21 mmol/HZgi81-13DsdEbmstzHocking Valley Community Hospital Comment on above:Performed By: #### BMP #### [facility] ([address] [address] VIRCreatinine [Mass/Vol]0.53 mg/dLNormal0.40-1.00Pro[facility]ica [facility] Beach HospitalComment on above:Result Comment: METHOD TRACEABLE TO IDNC STANDARDPerformed By: #### BMP #### [facility] ([address] [address] VIREGFR (CKD-EPI) NON-RACE DEPENDENT>^90Normal>=60ProMethodist HospitalComment on above:Result Comment: eGFR not reported due to non- numeric value for Creatinine. Reported eGFR is based on the CKD-EPI 2020 equation that does not use a race coefficient.Performed By: #### BMP #### [facility] ([address] [place] [address] VIRGlucose [Mass/Vol]101 mg/zNIete74-13ZoeIgezmxMethodist HospitalComment on above:Performed By: #### BMP #### [address] [place] [address] VIRPotassium [Moles/Vol]3.7 mmol/LNormal3.5-5.0ProMethodist HospitalComment on above:Performed By: #### BMP #### [facility] ([address] [place] [address] VIRSodium [Moles/Vol]134 mmol/TMwyxqi450-516ZatOajxvt [facility] HospitalComment on above:Performed By: #### BMP #### [facility] ([address] [place] [address] VIRUrea nitrogen [Mass/Vol]5 mg/dLNormal5-23ProMethodist HospitalComment on above:Performed By: #### BMP #### [facility] ([address] [place] [address] VIRCBC (NO DIFF)on 07-84-5662Ytyclirpukd distribution width (RBC) [Ratio]13.5 %Xtoqsf47.5-15ProMethodist HospitalComment on above: Performed By: #### CBC #### [facility]) [address] [place] [address] VIRHematocrit (Bld) [Volume fraction]31.2 %Tlm40-46TeyNesoxjMethodist HospitalComment on above:Performed By: #### CBC #### [facility] ([address] [place] [address] VIRHemoglobin (Bld) [Mass/Vol]10.6 g/dLLow11.7-15.5ProMedica [facility]enc[facility] HospitalComment on above:Performed By: #### CBC #### [facility] ([address] [place] [address] VIRMCH (RBC) [Entitic mass]29.2 ooRylvuh53-32WeaAvgisiBluffton HospitalComment on above:Performed By: #### CBC #### [facility] ([address] [place] [address] VIRMCHC (RBC) [Mass/Vol]33.8 g/yMZvdrim62-77FqgAlmlbvMethodist HospitalComment on above:Performed By: #### CBC #### [facility] ([address] [place] [address] VIRMCV (RBC) [Entitic vol]86 zYOsfjsk64-382VqpVzcdbeBluffton HospitalComment on above:Performed By: #### CBC #### [facility] ([address] [place] [address] VIRPlatelet mean volume (Bld) [Entitic vol]9.2 fLNormal7-12 [facility] HospitalComment on above:Performed By: #### CBC #### [facility] ([address] [place] [address] VIRPlatelets (Bld) [#/Vol]186 10*3/sOAemmgr628-058BxiVuvxxu [facility] HospitalComment on above:Performed By: #### CBC #### [facility] ([address] [place] [address] VIRRBC COUNT3.62 X10^12/LLow3.8-5.2PHocking Valley Community Hospital Comment on above:Performed By: #### CBC #### [facility] ([address] [place] [address] VIRWBC (Bld) [#/Vol]8.9 10*3/uLNormal4-11[facility] HospitalComment on above:Performed By: #### CBC #### [facility] ([address] [address] VIRURINALYSISon 43-08-8231Gvjooizoo sediment LM Ql (Urine sed) PresentAbSelect Medical Specialty Hospital - Cincinnati NorthComment on above:Performed By: #### UA #### [facility] ([address] [place] [address] VIRBilirubin Ql (U)NegativeNormalNegativeBluffton HospitalComment on above:Performed By: #### UA #### [facility] ([address] [address] VIRBLOOD/HGBNegativeNormalNegativeBluffton Hospital Comment on above:Performed By: #### UA #### [facility] ([address] [place] [address] VIRColor (U)YellowNormalYellowBluffton Hospital Comment on above:Performed By: #### UA #### [facility] ([address] [address] VIRGlucose Ql (U)NegativeNormalNegative, 250 mg/dLProMethodist HospitalComment on above:Performed By: #### UA #### [facility] ([address] [address] VIRKetones Ql (U)NegativeNormalNegativeProMethodist HospitalComment on above:Performed By: #### UA #### [facility] ([address] [place] [address] VIRLeukocyte esterase Test strip Ql (U)NegativeNormalNegative [facility] HospitalComment on above:Performed By: #### UA #### [facility] ([address] [address] VIRNitrite Ql (U)NegativeNormalNegativeBluffton HospitalComment on above:Performed By: #### UA #### [facility] ([address] [address] VIRPH,URINE7.1Johpcr5.0-8.5PHocking Valley Community HospitalComment on above:Performed By: #### UA #### [facility] ([address] [address] VIRProtein Ql (U)TraceAbnormalNegativeBluffton HospitalComment on above:Performed By: #### UA #### [facility] ([address] [address] VIRSpecific gravity (U) [Rel density]1.178Wfsczn2.003-1.035 [facility] HospitalComment on above:Performed By: #### UA #### [facility] ([address] [address] VIRSQUAMOUS RQNUUVOXRD9Kjuyxp9-2IeiGdxhwt [facility] Comment on above:Performed By: #### UA #### [facility] ([address] [place] [address] VIRTURBIDITYHazyAbnormalClearPHocking Valley Community HospitalComment on above:Performed By: #### UA #### [facility] ([address] [address] VIRUROBILINOGEN>=8.0 eu/dLAbnormal0.2 eu/dL, 1.0 eu/dL [facility] HospitalComment on above:Performed By: #### UA #### [facility] ([facility]) [address] [place] [address] [place] [address] VIRUS OB 14+ WEEKS ANATOMY SCANon 85-74-1833JY OB 14+ WEEKS ANATOMY SCANFINDINGS: A single, [...] Delivery: 12/26/25 Gestational Age as of 08/02/2025: 78y8tJOB, SERUM, OPEN SPINA BIFIDAon 59-24-0850WAQ MOM1.07.[facility] HealthcareAFP VALUE31.7 ng/mL.[facility] HealthcareCOMMENT: Comment.[facility] HealthcareComment on above:Caitlin Palafox, Ph.D., [facility] Director References: Available Upon Request. Multiples Of Median Cutoffs For AFP Elevations Caro 2.5 Black 2.8 IDD 2.0 Twins 4.5 Abbreviation Definitions IDD - Insulin Dep Diabetes OSBR - Open Spina Bifida Risk For further inquiries contact [facility] at [phone]. This test was developed and its performance characteristics determined by [employer]. It has not been cleared or approved by the Food and Drug Administration. Performed at: [facility] [address] [place], [place] [id number] Residential Real Estate Agent: Leonidas Oneill [facility], Phone: [phone] GEST. AGE ON COLLECTION DATE18.0. weeksNONC HealthcareGESTAT. AGE BASED ON Ultrasound.[facility] HospitalComment on above:15.1 on 07/05/2025 Recalculations are not recommended when gestational dating by LMP and ultrasound are within 10 days. INSULIN DEP DIABETESNo.[facility] HealthcareINTERPRETATIONComment.[facility] Comment on above:Interpretation: Screen Negative This [...] Customer Services to discuss available options. The [place] [employer] recommends amniocentesis be offered to women age 35 and older. MATERNAL AGE AT EDD25.1. yrNONC HealthcareMULTIPLE GESTATIONNo.[facility] Healthcare OSBR RISK 1 [id number].[facility] HealthcareRACECaucasian.[facility] HealthcareRESULTSReport. [facility] HealthcareTEST RESULTS:Negative.[facility] MixwoxwnqiSAVKDX010. lbsNOMS HealthcarePREGNANCY N N ULTRASOUND [id number] 1 15 N 1 Y 285 N N N N N White/ CLINISYNCNOMS HealthcareRECURRENT VAGINITIS (HTRX)on 41-89-9250TNCIVITOT VAGINAE 0NOMS HealthcareATOPOBIUM VAGINAENot detectedNONC HealthcareBVAB 2,3 (BACTERIAL VAGINOSIS ASSOCIATED BACTERIA 2, 3); MOBILUNCUS [id number] HealthcareBVAB 2,3 (BACTERIAL VAGINOSIS ASSOCIATED BACTERIA 2, 3); MOBILUNCUS SPPNot detectedNOMS HealthcareCANDIDA ALBICANS, PARAPSILOSIS, [id number] HealthcareCANDIDA ALBICANS, PARAPSILOSIS, TROPICALISNot detectedNOMS HealthcareCANDIDA GLABRATA0 NOMS HealthcareCANDIDA GLABRATANot detectedNOMS HealthcareCANDIDA [id number] HealthcareCANDIDA KRUSEINot detectedNOMS HealthcareCHLAMYDIA [id number] HealthcareCHLAMYDIA TRACHOMATISNot detectedNOMS HealthcareGARDNERELLA VAGINALIS 31.049AbnormalNOMS HealthcareGARDNERELLA VAGINALISDetectedAbnormalNOMS HealthcareInterpretation and review of laboratory resultsAbnormalN[facility]S Healthcare MEGASPHAERA (TYPES 1, 2)0[facility] HealthcareMEGASPHAERA (TYPES 1, 2)Not detectedNOMS HealthcareMYCOPLASMA [id number] HealthcareMYCOPLASMA GENITALIUMNot detected [facility] HealthcareNEISSERIA [id number] HealthcareNEISSERIA GONORRHOEAENot detectedNOMS HealthcareTET B, TET M23.864AbnormalNOMS HealthcareTET B, TET M DetectedAbnormalNOMS HealthcareTRICHOMONAS [id number] HealthcareTRICHOMONAS VAGINALISNot detectedNOMS HealthcareNOMS HealthcareUrinalysis macro (dipstick) panel (U)on 62-76-7302Fqmnubfuy, UANegativeNegative - 4(70) +++ mg/dLNOMS HealthcareBlood, UAPositiveNegative [...] 1.0151 - 1.03NOMS HealthcareUrobilinogen, UA1.00.2 - 12 mg/dLPutnam County Memorial Hospital HealthcareALL THYROID STIM HORMONEon 96-06-8306CEI Qn2.104 m[IU]/LNOMS HealthcareCLINISYNCNOMS HealthcareBOX TESTon 26-90-4334HSA TEST SENT OUTYESINTERMOUNTAIN [facility]ALTHCARE BgyqumtqklRWP8SNDPGITAM RrjhtfcnlbOUQ21/5/25NOKindred HospitalCLINISYNPROVIDENCE [facility] HealthcareHCG ( test) Ql (U)on 14-46-3810Vystljjnuusyfm and review of laboratory resultsAbSparrow Ionia HospitalPreg Test, UrPositiveNegativeNOSt. Luke's Hospital HealthcareUS OB TRANSVAGINALon 93-20-0909XO OB TRANSVAGINAL FINDINGS: A single intrauterine gestational [...] No LMP recorded.Urinalysis macro (dipstick) panel (U)on 07-75-2934Yucmazlvj, UA NegativeNegative - 4(70) +++ mg/dLNOMS HealthcareBlood, UANegativeNegative - 50 Lincoln/mcLNOMS HealthcareClarity, UAClearNOMS HealthcareColor, UAYellowNOMS HealthcareGlucose, UANegativeNegative - 2000(110) ++++ mg/dLNOMS Healthcare Interpretation and review of laboratory resultsAbVeterans Administration Medical Center HealthcareKetones, UANegativeNegative - 160(16) ++++ mg/dLNOMS HealthcareLeukocytes, UANegative Negative - 500+++ Skyler/mcLNOMS HealthcareNitrite, UANegativeNegative - Positive NOMS HealthcarepH, UA75 - 9NOMS HealthcareProtein, UATraceNegative - 2000(20) ++++ mg/dLNOMS HealthcareSpec Grav, UA1.0251 - 1.03NOMS HealthcareUrobilinogen, UA1.00.2 - 12 mg/dLNOMS HealthcareNOMS HealthcarePOCT NURSING URINE MACROSCOPIC UAon 38-06-5063YIKUJEBCF NURNegativeNormalNegativeBluffton Hospital Comment on above:Performed By: #### NUM #### [facility] ([address] [address] VIRBLOOD/HGB NURTraceAbnormalNegativeBluffton HospitalComment on above:Performed By: #### NUM #### [facility] ([address] [address] VIRGLUCOSE NURNegativeNormmeNegDetwiler Memorial Hospital Comment on above:Performed By: #### NUM #### [facility] ([address] [address] VIRKETONES NURNegativeNormalNegDetwiler Memorial Hospital Comment on above:Performed By: #### NUM #### [facility] ([address] [address] VIRLEUKOCYTE ESTERASE NURNegativeNormalNegativeBluffton HospitalComment on above:Performed By: #### NUM #### [facility] ([address] [address] VIRNITRITE NURNegativeNormalNegativeBluffton Hospital Comment on above:Performed By: #### NUM #### [facility] ([address] [address] VIRPH NUR6.5Raxlep9.0, 6.0, 6.5, 7.0, 7.5, 8.0, 8.5, 5.5 [facility] HospitalComment on above:Performed By: #### NUM #### [facility] ([facility]) [address] [place] [address] VIRPROTEIN VAX085 mg/dLAbnormalNegativeBluffton HospitalComment on above:Performed By: #### NUM #### [facility] ([facility]) [address] [place] [address]. [place] [address] VIRSPECIFIC GRAVITY MOLLY>=1.871Qmetlcjy0.010, 1.015, 1.020, 1.025ProMethodist HospitalComment on above:Performed By: #### NUM #### [facility] ([address] [address] VIRUROBILINOGEN NUR0.2 E.U./dLNormalSt. [facility] Hospital on above:Performed By: #### NUM #### [facility] ([address] [address] VIRPOCT , URINE (NUCG)on 63-57-9965Jmqk HCG ( test) Ql (U)PositiveAbnormalNegative, IndeterminateProMethodist HospitalComment on above:Performed By: #### NUCG #### [facility] ([address] [address] VIRALL THYROID STIM HORMONEon 79-00-6218Youxwkodjfoftk and review of laboratory resultsAbFresenius Medical Care at [facility] of [facility] Qn5.935 m[IU]/[facility] HospitalCLINISYNPrisma Health Hillcrest HospitalHCG ( test) Ql (U)on 01-17-2025 Interpretation and review of laboratory resultsNoFirst Hospital Wyoming ValleyPre Test, UrNegativeNegativeVidant Pungo HospitalLon 01-17-2025L Specimen: [id number] Received: 01/18/25 Status: GHAZAL Jerome Num: [id number] Spec Type: Surgical Subm Dr: Jefferson Howard Tissues: A Endocervix - Biopsy (ENDOCERVIX) Endocervix - Curettings Procedures: HE/2, Gross/Micro L4 Age/ Patient Sex Location Account Attending Physician Jes Romero / LABELL [id number] Jefferson Howard SPEC NUM: [id number] RECD: 01/18/25 STATUS: GHAZAL JEROME NUM: [id number] JUDIT: 01/17/25-[address]: Jefferson Howard ENTERED: 01/18/25-[address]: Nenita Carter SPEC TYPE: Surgical DEPT: LUCAS MAR ENTERED BY: [id number] RECV BY: [id number] ORDERED: HE/2, Gross/Micro L4 ORDERED: HE/2, Gross/Micro [...] submitted in a single cassette. (1, ns, [id number]) Microscopic Description Microscopic examination is performed Specimen: [id number] Received: 01/18/25 Status: GHAZAL Parminder Num: [id number] Spec Type: Surgical Subm Dr: Jefferson Howard Tissues: A Endocervix - Biopsy (ENDOCERVIX) Endocervix - Curettings Procedures: TESSIEJuanis, Gross/Micro L4 Patient: Jes Romero [id number] (Continued) Specimen: [id number] Received: 01/18/25 (Continued) Signed (signature on file) Lizabeth Diggs MD 01/19/25 1541 Specimen: [id number] Received: 01/18/25 Status: GHAZAL Jerome Num: [id number] Spec Type: Surgical Subm Dr: Jefferson Howard Tissues: A Endocervix - Biopsy (ENDOCERVIX) Endocervix - Curettings Procedures: TESSIE/Juanis, Day/Elvin L4 Patient: Jes Romero [id number] (Continued) Specimen: Received: 01/18/25 (Continued) CPT Codes 50947 Specimen: [id number] Received: 01/18/25 Status: GHAZAL Jerome Num: [id number] Spec Type: Surgical Subm Dr: Jefferson Howard Tissues: A Endocervix - Biopsy (ENDOCERVIX) Endocervix - Curettings Procedures: HE/Juanis Gross/Elvin L4 Patient: Jes Romero [id number] (Continued) Signed (signature on file) Brian-Shaheen Diggs MD 01/19/[address] [place] [address] Physician GroupUrinalysis macro (dipstick) panel (U)on 62-85-8529Vuybtgiao, UANegativeNegative - 4(70) +++ mg/dLNOMS HealthcareBlood, UANegativeNegative [...] mg/dLNOMS HealthcareNOMS HealthcareUS PELVIC COMPLETE W/ TVon 36-50-4854LS PELVIC COMPLETE W/ TVEXAM: US PELVIC COMPLETE [...] II, MD, PHD at 13-Jan-2025 11:16:36 PM [facility] TeleradiologyNormalNot AvailableComment on above:Order Comment: US PELVIS-TRANSVAG IF INDICATED No LMP recorded.Urine Cultureon 96-56-0533Dozaqszl identified Cx Nom (U)15,000 colonies/ml mixed bacterial skin contaminants 2 Days PERFORMED BY: [facility] [address] [place] [address] PATHOLOGIST POWER BENDER OPERATOR BRUCE CALI M.D.NormalThe Atrium Health Providence Physician GroupComment on above: Performed By: #### CUU #### [facility] [address] [place] [address] USAUrine cultureOrdered By: Krishna Saxena on 01-03-2025 Bacteria identified Cx Nom (U)Urine cultureFlower Hospital IGP,APTIMA HPV,AGE GDLNon 71-95-8684UPY GDLN ACOG TESTINGNote.[facility] Healthcare Comment on above:TESTS RESULT FLAG UNITS REF RANGE LAB Clinician Provided Cytology Information Source.............Cervix;Endocervix No. of containers..01 ThinPrep Vial Age Algo ACOG Mela... 21- 01 FLAG LEGEND: L-Low Normal,H-High Normal,LL-Alert Low,HH-Alert High <-Panic Low,>-Panic High,A-Abnormal,AA-Critical Abnormal Performed at: 01 =G [facility] [address] Aleida Colon MD, IGP, RFX APTIMA HPV ASCUNoteAbnormal.NOMS HealthcareComment on above:TESTS RESULT FLAG UNITS REF RANGE LAB DIAGNOSIS: [A] 02 EPITHELIAL CELL ABNORMALITY. LOW GRADE SQUAMOUS INTRAEPITHELIAL LESION (LSIL). Specimen adequacy: 02 Satisfactory for evaluation. Endocervical and/or squamous metaplastic cells (endocervical component) are present. Performed by: 02 Cynthia Smith, Bilingual Interpreter (ASCP) Electronically si... 02 Johanne Desir MD, [...] High,A-Abnormal,AA-Critical Abnormal Performed at: [address] [facility] [address] [address] Aleida Colon MD, Performed at: =G - [facility] [address] [id number] Residential Real Estate Agent: Aleida Colon MD, Phone: [phone] Performed at: [address] [id number] Residential Real Estate Agent: Aleida Colon MD, Phone: [phone] Interpretation and review of laboratory resultsAbSparrow Ionia Hospital BRUSH-SPATULA CERVIX ENDOCERVIX [facility] CenterInsertion/Removal of Contraceptive Capsuleon 12-02-2024 Pilar Collins LPN [...] closed with steri-strips and pressure bandage applied: [facility] HospitalUS PELVIC COMPLETE W/ TVon 78-03-4450GG PELVIC COMPLETE W/ TVEXAM: US PELVIC COMPLETE [...] II, MD, PHD at 03-Dec-2024 08:37:11 AM [facility] TeleradiologyNormalNot AvailableComment on above:Order Comment: US PELVIS-TRANSVAG IF INDICATED No LMP recorded.ALL CBC WITH AUTO DIFFon 65-75-7688OEJAQHZCN ABSOLUTE AUTO0.1 NOMWashington County Memorial HospitalBasophils/100 WBC (Bld)0.6 %0.2 - 2.0 %[facility] Eosinophils/100 WBC (Bld)2.6 %0.9 - 7.0 %[facility] HospitalErythrocyte distribution width (RBC) [Ratio]13.2 %11.0 - 15.0 %[facility] HospitalHematocrit (Bld) [Volume fraction]38.2 %36.0 - 48.0 %[facility] HospitalHemoglobin (Bld) [Mass/Vol]12.4 g/dL 12.0 - 16.0 g/dLGeneral Leonard Wood Army Community HospitalIMMATURE GRANULOCYTES ABS AUTO0.04HighGeneral Leonard [facility] Army Community HospitalImmature granulocytes/100 WBC (Bld)0.4 %0.0 - 0.5 %[facility] Interpretation and review of laboratory resultsAbnormalNOKindred Hospital LYMPHOCYTES ABSOLUTE AUTO3.4NOKindred HospitalLymphocytes/100 WBC (Bld)34.8 %20.5 - 60.0 %Christian HospitalH (RBC) [Entitic mass]28.3 pg26.7 - 34.0 pgChristian HospitalHC (RBC) [Mass/Vol]32.5 g/dL29.9 - 35.2 g/dLChristian HospitalV (RBC) [Entitic vol]87.2 fL81.0 - 99.0 fLGeneral Leonard Wood Army Community HospitalMONOCYTES ABSOLUTE AUTO0.7NOMS HealthcareMonocytes/100 WBC (Bld)7.2 %1.7 - 12.0 %[facility] HospitalNEUTROPHILS ABSOLUTE AUTO5.4NONC HealthcareNeutrophils/100 WBC (Bld)54.4 %43.0 - 75.0 %NOMS HealthcarePlatelet mean volume (Bld) [Entitic vol]10 fL9.5 - 13.5 fLNOMS HealthcareTBH EO #0.3NOMS HealthcareTBH [id number] HealthcareTBH RBC4.38NOMS HealthcareTBH WBC9.9NOMS HealthcareCLINISYNCNOMS HealthcareHCG ( test) IA.rapid Ql (U)Ordered By: Mir Silva on 36-88-2571KYY ( test) Ql (U)Urine human chorionic gonadotropin (hCG) detection by immunoassayFlower HospitalHCG,Urineon 73-11-8581Bxwt HCG ( test) Ql (U) NegativeNoPsychiatric hospital Physician GroupComment on above:Result Comment: PERFORMED BY: [place] [address] PATHOLOGIST POWER BENDER OPERATOR BRUCE CALI M.D.Performed By: #### UHCG #### [place] [address] USALon 09-07-2024 Specimen: [id number] Received: 09/07/24 Status: GHAZAL Jerome Num: [id number] Spec Type: Surgical Subm Dr: Mir Silva MD Tissues: A Small Intestine - Biopsy/Polyp (SMALL BOWEL BX R/O CELIAC) Procedures: HE/2, Gross/Micro L4 Age/ Patient Sex Location Account Attending Physician RomeroJes trujillo / [id number] Mir Silva MD SPEC NUM: [id number] RECD: 09/07/24 STATUS: GHAZAL JEROME NUM: [id number] JUDIT: 09/07/[address] [facility] DR: Mir Silva MD ENTERED: 09/07/24 [facility] DR: ARNULFO TYPE: Surgical DEPT: S ENTERED BY: [id number] RECV BY: [id number] ORDERED: HE/2, Gross/Micro L4 ORDERED: HE/2, Gross/Micro [...] submitted in a single cassette. (1, ns, [id number]) Microscopic Description Microscopic examination is performed. CPT Codes 03749 Specimen: [id number] Received: 09/07/24-1610 Status: GHAZAL Londononur Num: [id number] Spec Type: Surgical Subm Dr: Mir Silva MD Tissues: A Small Intestine - Biopsy/Polyp (SMALL BOWEL BX R/O CELIAC) Procedures: HE/Juanis, Gross/Micro L4 Patient: Jes Romero [id number] (Continued) Signed (signature on file) Roberth Martinez MD 09/08/24 1012Normal The [facility] Physician GroupBAPTIST HEALTH PADUCAH AND AUTO DIFFon 91-44-4339RLUYMNLS BASOPHIL0.0 X10E9/LNormal0.0-0.2ProMed[facility] Vencor HospitalComment on above:Performed By: #### CMP, CBCA #### [facility] ([id number]) [address] [place] [address]MSDJYJXP NEUTROPHIL3.8 X10E9/LNormal1.5-6.6Bluff[facility] HospitalComment on above:Performed By: #### CMP, CBCA #### [facility] ([id number]) [address] [place] [address]Cwnrrazpu/100 WBC (Bld)0.3 %NormalBluffton Hospital Comment on above:Performed By: #### CMP, CBCA #### [facility] ([id number]) [address] [place] [address]Kucrukcmnpi (Bld) [#/Vol]0.0 10*3/uLNormal0.0-0.4Bluffton HospitalComment on above:Performed By: #### CMP, CBCA #### [facility] ([id number]) [address] [place] [address]Kewwzuzyigw/100 WBC (Bld)0.8 %[facility] Comment on above:Performed By: #### CMP, CBCA #### [facility] ([id number]) [address] [place] [address] 17[address]Tkomdachcmq distribution width (RBC) [Ratio]14.5 %Normal 11.5-15.0Bluffton HospitalComment on above:Performed By: #### CMP, CBCA #### [facility] ([id number]) [address] [place] [address]Hkvomvjgon (Bld) [Volume fraction]38.8 %Nrgqts48-18DndNqwibgMethodist HospitalComment on above:Performed By: #### CMP, CBCA #### [facility] ([id number]) [address] [place] [address]Jiednuulzw (Bld) [Mass/Vol]13.0 g/lXKbvrwp75.7-15.5PHocking Valley Community HospitalComment on above:Performed By: #### CMP, CBCA #### [facility] ([id number]) [address] [place] [address]Zshszecggxf (Bld) [#/Vol]0.5 10*3/uLLow1.0-3.5PHocking Valley Community HospitalComment on above:Performed By: #### CMP, CBCA #### [facility] ([id number]) [address] [place] [address]Kuctosjozxg/100 WBC (Bld)11.5 %NormalProMethodist Hospital Comment on above:Performed By: #### CMP, CBCA #### [facility] ([id number]) [address] [place] [address] 269[address]BZY (RBC) [Entitic mass]28.6 viOsntgu35-38RdmTqjyhhBluffton HospitalComment on above:Performed By: #### CMP, CBCA #### [facility] ([id number]) [address] [place] [address]CSAW (RBC) [Mass/Vol]33.5 g/iVJnwaiz30-15EvvUfoedcMethodist HospitalComment on above:Performed By: #### CMP, CBCA #### [facility] ([id number]) [address] [place] [address]BQB (RBC) [Entitic vol]85 hYHgrfer78-070SvaSmhzqhBluffton HospitalComment on above:Performed By: #### CMP, CBCA #### [facility] ([id number]) [address] [place] [address] 17[address]Divwsquim (Bld) [#/Vol]0.2 10*3/uLNormal0-0.9Bluffton HospitalComment on above:Performed By: #### CMP, CBCA #### [facility] ([id number]) [address] [place] [address]Zadopkdpq/100 WBC (Bld)5.1 %[facility] Comment on above:Performed By: #### CMP, CBCA #### [facility] ([id number]) [address] [place] [address]Zliwkinzgfl/100 WBC (Bld)82.3 %[facility] Comment on above:Performed By: #### CMP, CBCA #### [facility] ([id number]) [address] [place] [address]Owvxmeyl mean volume (Bld) [Entitic vol]8.6 fLNormal7-12 [facility], Edwin ShawedicWashington HospitalComment on above:Performed By: #### CMP, CBCA #### [facility] ([id number]) [address] [place] [address] 25[address]Jjcgjiald (Bld) [#/Vol]225 10*3/xAFulisl623-550XxlNhnarjBluffton HospitalComment on above:Performed By: #### CMP, CBCA #### [facility] ([id number]) [address] [place] [address]XME COUNT4.55 X10E12/LNormal3.80-5.20[facility] Comment on above:Performed By: #### CMP, CBCA #### [facility] ([id number]) [address] [place] [address]KLZ (Bld) [#/Vol]4.6 10*3/uLNormal4.0-11.0Bluffton HospitalComment on above:Performed By: #### CMP, CBCA #### [facility] ([id number]) [address] [place] [address], [place] [address]VMDGSOJBJPJHM METABOLIC PANELon 09-66-1112Cpksepw [Mass/Vol]3.6 g/dLNormal3.2-5.3PHocking Valley Community HospitalComment on above:Performed By: #### CMP, CBCA #### [facility] ([id number]) [address] [place] [address], [place] [address]YFK [Catalytic activity/Vol]65 U/NNoeeih23-986KzcKlhxvbMethodist HospitalComment on above:Performed By: #### CMP, CBCA #### [facility] ([id number]) [address] [place] [address], [place] [address]RYG [Catalytic activity/Vol]29 U/LNormal0-31PHocking Valley Community HospitalComment on above:Performed By: #### CMP, CBCA #### [facility] ([id number]) [address] [place] [address], [place] [address]Fkidk gap [Moles/Vol]10 mmol/LNormal5-15ProMethodist HospitalComment on above:Performed By: #### CMP, CBCA #### [facility] ([id number]) [address] [place] [address], [place] [address]TWP [Catalytic activity/Vol]36 U/LNormal0-41ProMethodist HospitalComment on above:Performed By: #### CMP, CBCA #### [facility] ([id number]) [address] [place] [address], [place] [address]Zosmnhvel [Mass/Vol]0.9 mg/dLNormal0.3-1.2PHocking Valley Community HospitalComment on above:Performed By: #### CMP, CBCA #### [facility] ([id number]) [address] [place] [address], [place] [address]Xjstzqu [Mass/Vol]8.3 mg/dLLow8.5-10.5ProMedica Jensen Beach HospitalComment on above:Performed By: #### MARLENE, CBCA #### [facility] ([id number]) [address] [place] [address], [place] [address]Pjkyylqe [Moles/Vol]103 mmol/CEekxhk69-036XutDsqvgtBluffton HospitalComment on above:Performed By: #### MARLENE, CBCA #### [facility] ([id number]) [address] [place] [address], [place] [address]KD0 [Moles/Vol]22 mmol/XYabgvy64-59SejXnnbadHocking Valley Community Hospital Comment on above:Performed By: #### MARLENE CBCA #### [facility] ([id number]) [address] [place] [address], [place] [address]Dbvuzyrxmc [Mass/Vol]0.72 mg/dLNormal0.40-1.00Bluffton HospitalComment on above:Result Comment: METHOD TRACEABLE TO IDMS STANDARD Performed By: #### MARLENE CBCA #### [facility] ([id number]) [address] [place] [address] [place] [address]aNAH (CKD-EPI) NON-RACE DEPENDENT>90Normal>59Bluffton HospitalComment on above:Result Comment: Reported eGFR is based on the CKD-EPI 2021 equation that does not use a race coefficient.Performed By: #### MARLENE, DIANEA #### [facility] ([id number]) [address] [place] [address], [place] [address]Vokehbv [Mass/Vol]103 mg/nOTkpr90-15UukNebvpkBluffton Hospital Comment on above:Performed By: #### MARLENE, CBCA #### [facility] ([id number]) [address] [place] [address], [place] [address]Rjlbwvbmh [Moles/Vol]3.5 mmol/LNormal3.5-5.0Bluffton HospitalComment on above:Performed By: #### MARLENE, CBCA #### [facility] ([id number]) [address] [place] [address]Mvlubdp [Mass/Vol]6.9 g/dLNormal6.0-8.0ProMethodist HospitalComment on above:Performed By: #### CMP, CBCA #### [facility] ([id number]) [address] [place] [address]Yqxrxs [Moles/Vol]135 mmol/JNbsivq461-896OjfSnpvqp [facility]remont HospitalComment on above:Performed By: #### CMP, CBCA #### [facility] ([id number]) [address] [place] [address]Ebxg nitrogen [Mass/Vol]16 mg/dLNormal5-23ProMethodist HospitalComment on above:Performed By: #### CMP, CBCA #### [facility] ([id number]) [address] [place] [address] 379[address]KP ABDOMEN AND PELVIS W CONTon 27-01-5911GJ ABDOMEN AND PELVIS W CONTCT ABDOMEN AND [...] by Huang Burleson MD on 08/28/2024 8:12 PMNormalProMethodist HospitalHCG ( test) Ql (U)on 28-81-6389Fgud HCG ( test) Ql (U) NegativeNormalNEGProMethodist HospitalComment on above:Performed By: #### 2106-3 #### [facility] ([id number]) [address] [place] [address]WQU MACROSCOPIC NURon 74-61-6951HFPLKJILH NURSmallAbnormalNEG [facility] Vencor HospitalComment on above:Performed By: #### NUM #### [facility] ([id number]) [address] [place] [address]EFVVG/HGB NURNegativeNormalNEGProMethodist HospitalComment on above:Performed By: #### NUM #### [facility] ([id number]) [address] [place] [address] 00923JGVPADL NURNegativeNormalNEGProMethodist HospitalComment on above:Performed By: #### NUM #### [facility] ([id number]) [address] [place] [address] 25[address]QFKACRS NURNegativeNormalNEGProMethodist HospitalComment on above:Performed By: #### NUM #### [facility] ([id number]) [address] [place] [address] 32668NVWYAYQOI ESTERASE NURNegativeNormalNEGProMethodist HospitalComment on above:Performed By: #### NUM #### [facility] ([id number]) [address] [place] [address] 515[address]CIVQZJK NURNegativeNormalNEGProMethodist HospitalComment on above:Performed By: #### NUM #### [facility] ([id number]) [address] [place] [address] 58[address]XG NUR5.9Cddmkv3.0-8.5PHocking Valley Community HospitalComment on above:Performed By: #### NUM #### [facility] ([id number]) [address] [place] [address] 78457SQTGUPD MOLLY>=300AbnormalNEGProMethodist HospitalComment on above:Performed By: #### NUM #### [facility] ([id number]) [address] [place] [address] 23359LUQKKZAT GRAVITY MOLLY>=1.668Ubmwbp1.003-1.035ProMethodist HospitalComment on above:Performed By: #### NUM #### [facility] ([id number]) [address] [place] [address] 47673AVBHLNASZRSV NUR0.2 eu/dLNormal<1.1PHocking Valley Community Hospital Comment on above:Performed By: #### NUM #### [facility] ([id number]) [address] [place] [address] 14359NRNF TRICHOMONAS/WET PREPon 10-47-1182PZE PREP TRIC BV CYDNEY Wet Prep Tric BV Cydney WP.BACT Bacteria^Bacteria NOMS HealthcareWET PREP TRIC BV CANDIDAWP.CLUE Clue Cells^Clue CellsNOMS HealthcareWET PREP TRIC BV CANDIDAWP.JEANNETTE Fungal Elements^Fungal ElementsNOMS HealthcareWET PREP TRIC BV CANDIDAWP.RBC RBC^RBCNOMS HealthcareWET PREP TRIC BV CANDIDAWP.TRICH Trichomonas^TrichomonasNOMS HealthcareWET PREP TRIC BV CYDNEY WP.WBC WBC^WBCNOMS HealthcareCLINISYNCNOMS HealthcareNo Panel Informationon 37-38-0411KXK PREP TRIC BV CANDIDAF Few^FewNOMS HealthcareWET PREP TRIC BV CANDIDAN None Seen^None SeenNOMS HealthcareXR LUMBAR SPINE 2 OR 3Von 06-03-[address] [address] XRay Report Signed Patient: JES ROMERO MR#: [id number] : 2000 Acct:[id number] Age/Sex: 23 / F ADM Date: 06/01/24 Loc: [facility] Attending Dr: Manuel Noel M.D. Ordering Physician: Manuel Noel M.D. Date of Service: 06/01/24 Procedure(s): XR lumbar spine 2-3V Accession Number(s): [id number] cc: Manuel Noel M.D. [place] [id number] Patient Name: JES ROMERO MRN: [id number] date: 2000 Sex: F Assigned Patient Location: [facility] Current Patient Location: Accession/Order Number: [id number] Exam Date: 06/01/2024 14:19 Report Date: 06/03/2024 [...] Signed By: 06/03/24 1313 DD/ 1310 TD/TT: Ball Ender:YOUNGadiology, Radiologist, - 06/03/2024 The [place] [id number] XRay Report Signed Patient: JES ROMERO MR#: [id number] : 2000 Acct:[id number] Age/Sex: 23 / F ADM Date: 06/01/24 Loc: RAD Attending Dr: Manuel Noel M.D. Ordering Physician: Manuel Noel M.D. Date of Service: 06/01/24 Procedure(s): XR lumbar spine 2-3V Accession Number(s): [id number] cc: Manuel Noel M.D. [place] [id number] Patient Name: JES ROMERO MRN: [id number] date: 2000 Sex: F Assigned Patient Location: [facility] Current Patient Location: Accession/Order Number: [id number] Exam Date: 06/01/2024 14:19 Report Date: 06/03/2024 [...] Signed By: 06/03/24 1313 DD/ 1310 TD/TT: Ball Ender: [facility] HealthcareRadiology Study observation (narrative)[facility] HealthcareXR LUMBAR SPINE 2 OR 3VOrdered By: Radiologist Radiology on [id number] Work Phone: PRBC LEUKOREDUCEDon [id number] and Rh group Nom (Bld)Cross Match Result Compatible Unit Blood Type O Pos Unit Number [id number] Status Information Transfused Product ID Red Blood Cells Product Code [id number] Cross Match Result Compatible Unit Blood Type O Pos Unit Number [id number] Status Information Transfused Product ID Red Blood Cells Product Code [id number] Children's Hospital Medical CenterComment on above:Performed By: #### PRBC ####[facility] [address] [place], [place] [address]Dr. Benoit DiggsCBC AUTO DIFFon [id number] #0.1 103/ulNormal0.0-0.1The [facility] AndersonComment on above:Performed By: #### CBC ####[facility] [address] [place], [place] [address]Dr.Benoit ChangBasophils/100 WBC (Bld)1.2 %Normal0.2-2.0[facility] on above:Performed By: #### CBC ####[facility] [address] [place], [place] [address]Dr.Karylan ChangEO #0.4 103/ulNormal0.0-0.7The [facility] AndersonComment on above:Performed By: #### CBC ####[facility] Nfwsyeosev[address] [place], [place] [address]Dr.Benoit ChangEosinophils/100 WBC (Bld)4.5 %Normal 0.9-7.0[facility] on above:Performed By: #### CBC ####[facility] Qwhjttlobh[address] [place], [place] [address]Dr.Benoit Diggs Erythrocyte distribution width (RBC) [Ratio]16.6 %Critically high11.0-15.0[facility] on above:Performed By: #### CBC ####[facility] Kifgvxgdlr[address] [place], [place] [address]Dr.Benoit DigsgHematocrit (Bld) [Volume fraction]40.3 %Aafxfb29.0-48.0[facility] on above:Performed By: #### CBC ####[facility] Nekflexxua[address] [place], [place] [address]Dr.Benoit ChangHemoglobin (Bld) [Mass/Vol]12.6 g/dL Fsgvzl31.0-16.0The [facility] HospitalComment on above:Performed By: #### CBC ####[facility] [address] [address]Dr. Benoit DiggsIG #0.04 10e3/ulCritically high0.00-0.03The [facility] AndersonComment on above:Performed By: #### CBC ####[facility] Ojosunqsep80[address] [place], [place] [address]Dr.Karyaurora DontaeIG %0.5 %Normal0.0-0.5The [facility] AndersonComment on above:Performed By: #### CBC ####[facility] Dgdvpxwuhe[address] [place], [place] [address]Dr.Benoit DiggsLYMPH #3.0 103/ulNormal1.2-3.8The [facility] AndersonComment on above:Performed By: #### CBC ####[facility] Ufmgljaljk[address] [place], [place] [address]Dr. Benoit DiggsLymphocytes/100 WBC (Bld)36.0 %Hghtaw95.5-60.0The [facility] Comment on above:Performed By: #### CBC ####[facility] Ybolcwbmwi[address] [place], [place] [address]Dr.Benoit DiggsMANUAL DIFF REQNONormalThe [facility] AndersonComment on above:Performed By: #### CBC ####[facility] Glstxpyglk3[address] [place], [place] [address]Dr.Benoit DiggsH (RBC) [Entitic mass]25.3 pgCritically low26.7-34.0The [facility] AndersonComment on above:Performed By: #### CBC ####[facility] Hphcgxanxe60[address] [place], [place] [address]Dr.Benoit DiggsMCHC (RBC) [Mass/Vol]31.3 g/dLNormal 29.9-35.2The [facility] AndersonComment on above:Performed By: #### CBC ####[facility] Gnduswlxkt6[address] [place], [place] [address]Dr. Benoit DiggsV (RBC) [Entitic vol]80.9 fLCritically low81.0-99.0The [facility] AndersonComment on above:Performed By: #### CBC ####[facility] [address] [address]Dr.Benoit DiggsMONO #0.4 103/ulNormal0.3-0.8The [facility] AndersonComment on above:Performed By: #### CBC ####[facility] Rjtsncgpsc7[address] [place], [place] [address]Dr. Benoit DiggsMonocytes/100 WBC (Bld)4.8 %Normal1.7-12.0The [facility] Comment on above:Performed By: #### CBC ####[facility] Zbyfxrnmgj4634[address] [place], [place] [address]Dr.Benoit DiggsNEUT #4.4 103/ulNormal1.4-6.5 The [facility] AndersonComment on above:Performed By: #### CBC ####[facility] Vyktxlkypw[address] [place], [place] [address]Dr.Benoit Diggs Neutrophils/100 WBC (Bld)53.0 %Lieieh89.0-75.0The [facility] AndersonComment on above:Performed By: #### CBC ####[facility] Pdsakbmheq[address] [place], [place] [address]Dr.Benoit DiggsPlatelet mean volume (Bld) [Entitic vol] 10.8 fLNormal9.5-13.5The [facility] AndersonComment on above:Performed By: #### CBC ####[facility] Gbmdmwfrkl3[address] [place], [place] [address]Dr. Benoit BwqarOQT973 103/ayPyapdh135-777Udq [facility] AndersonComment on above: Performed By: #### CBC ####[facility] Injfccwzge57[address] [place], [place] [address]Dr.Benoit DiggsRBC4.98 106/ulNormal4.20-5.40The [facility] AndersonComment on above:Performed By: #### CBC ####[facility] Qmapocteah3744[address] [place], [place] [address]Dr.Karylan ChangWBC8.3 103/ul Normal4.0-11.0[facility] CenterComment on above:Performed By: #### CBC ####[facility] [address]prbotf[address] [place] [place] [address]Dr. Benoit ChangGLYCOHEMOGLOBIN A1Con [id number] RECOMMENDATIONSEE Marion HospitalComment on above:Result Comment: ADA RECOMMENDED LIMIT 4.0 - 6.0 ADA THERAPEUTIC TARGET < 7.0 ACTION SUGGESTED > 7.0Performed By: #### A1C ####[facility] Qnfoowncvo9[address] [place], [place] [address]Dr. Benoit ChangGlucose [Mass/Vol]100 mg/dLNoCincinnati Children's Hospital Medical CenterComment on above:Performed By: #### A1C ####[facility] Wrpcsyohai[address] [place], [place] [address]Dr.Benoit AlrpkFuQ2e (Bld) [Mass fraction]5.1 %Normal 4.5-6.2The [facility] AndersonComment on above:Performed By: #### A1C ####[facility] Ktznhzluhl[address] [place], [place] [address]Dr.Benoit ChangLIPID PROFILEon [id number]-HDL RATIO NORMSEE [facility] Comment on above:Result Comment: 3.3 - 4.4 LOW RISK 4.4 - 7.1 AVERAGE RISK 7.1 - 11.0 MODERATE RISK >11.0 HIGH RISKPerformed By: #### LIVER, LIPID, BMP, TSH ####[facility] [address]ieh[address] [address]Dr. Benoit ChangCholesterol [Mass/Vol]184 mg/dLNormal<=200[facility] Comment on above:Performed By: #### LIVER, LIPID, BMP, TSH ####[facility] Lsijhnhrha039[address] [place], [place] [address]Dr. Karylan ChangCholesterol in HDL [Mass/Vol]52 mg/oXJjyyov78-45Bbt [facility] AndersonComment on above: Performed By: #### LIVER, LIPID, BMP, TSH ####[facility] Dvzpfohrin6[address] [place], [place] [address]Dr. Yilan ChangCholesterol in LDL [Mass/Vol] 114.8 mg/dLNoCincinnati Children's Hospital Medical CenterComment on above:Performed By: #### LIVER, LIPID, BMP, TSH ####[facility] [address]jgrev[address] [address]Dr. Yilan ChangCholesterol.total/Cholesterol in HDL [Mass ratio]3.5 {ratio}NormalThe [facility] AndersonComment on above:Performed By: #### LIVER, LIPID, BMP, TSH ####[facility] [address] [place] [address]Dr. Yilan ChangHDL NORMAL> or = 60 mg/dl - LOW CARDIOVASCULAR RISK <40 mg/dl - HIGH CARDIOVASCULAR RISKNoCincinnati Children's Hospital Medical CenterComment on above: Performed By: #### LIVER, LIPID, BMP, TSH ####[facility] S[address]nbuptto[address] [place] [place] [address]Dr. Yilan ChangLDL CALC NORMALSEE BELOW NormalThe [facility] AndersonComment on above:Result Comment: <100 mg/dl OPTIMAL 100 - 129 mg/dl NEAR OR ABOVE OPTIMAL 130 - 159 mg/dl BORDERLINE HIGH 160 - 189 mg/dl HIGH >190 mg/dl VERY HIGHPerformed By: #### LIVER, LIPID, BMP, TSH ####[facility] [address]kuoth[address] [place] [place] [address]Dr. Karylan ChangTriglyceride [Mass/Vol]86 mg/dLNormal<=150[facility] Comment on above:Performed By: #### LIVER, LIPID, BMP, TSH ####[facility] [address]ms[address] [address]Dr. Yilan ChangVLDL CALC17.2 mg/dLNoCincinnati Children's Hospital Medical CenterComment on above:Performed By: #### LIVER, LIPID, BMP, TSH ####[facility] O[address]mphj[address] [place] [place] [address]Dr. Karylan ChangLIVER PROFILEon 21-85-2028Lbtsjhn [Mass/Vol]3.3 g/dL Critically low3.4-5.0The [facility] AndersonComment on above:Performed By: #### LIVER, LIPID, BMP, TSH ####[facility] [address]zj[address] [place] [address]Dr. Yilan ChangAlbumin/Globulin [Mass ratio]0.8 {ratio}NormalThe [facility] Hospitalment on above:Performed By: #### LIVER, LIPID, BMP, TSH ####[facility] Eygyinuykt[address] [place] [address]Dr. Yilan ChangALP [Catalytic activity/Vol]110 U/RMkrtet49-355Dzw [facility] AndersonComment on above:Performed By: #### LIVER, LIPID, BMP, TSH ####[facility] Shkitkblyl[address] [place], [place] [address]Dr. Yilan ChangALT [Catalytic activity/Vol]25 U/ABromes11-34Hfx [facility] Comment on above:Performed By: #### LIVER, LIPID, BMP, TSH ####[facility] Ofacixhzqc50[address] [place], [place] [address]Dr. Yilan ChangAST [Catalytic activity/Vol]20 U/HZizhqz19-52Rdw [facility] AndersonComment on above:Performed By: #### LIVER, LIPID, BMP, TSH ####[facility] Uukfbulsyt94[address] [place], [place] [address]Dr. Yilan ChangBILI, CONJUGATED0.1 mg/dLNormal0.0-0.2 The [facility] AndersonComment on above:Performed By: #### LIVER, LIPID, BMP, TSH ####[facility] Nrddslewrs[address] [place], [place] [address]Dr. Yilan ChangBilirubin [Mass/Vol]0.4 mg/dLNormal0.2-1.0[facility] Comment on above:Performed By: #### LIVER, LIPID, BMP, TSH ####[facility] Rokrbavnna[address] [place], [place] [address]Dr. Yilan ChangGlobulin (S) [Mass/Vol]3.9 g/dLNormalThe [facility] AndersonComment on above:Performed By: #### LIVER, LIPID, BMP, TSH ####[facility] Xpapxdjfbv43[address] [place], [place] [address]Dr. Yilan ChangProtein [Mass/Vol]7.2 g/dLNormal6.4-8.2 The [facility] AndersonComment on above:Performed By: #### LIVER, LIPID, BMP, TSH ####[facility] [address]ksf[address] [place] [address]Dr. Benoit DiggsPROF CHEM 8 (BAS METB)on 51-34-5724Nhpxz gap [Moles/Vol]13.2 mmol/L NormalThe [facility] AndersonComment on above:Performed By: #### CBC #### [facility] [address] [address] [address] Benoit DiggsCalcium [Mass/Vol]9.2 mg/dLNormal8.5-10.1The [facility] Comment on above:Performed By: #### CBC #### [facility] [address] [address] [address] Benoit DiggsChloride [Moles/Vol]108 mmol/LCritically yfhn61-919Qxm [facility] AndersonComment on above:Performed By: #### CBC #### [facility] [address] [address] [address] Benoit DiggsCO2 [Moles/Vol]27.9 mmol/EQbifkb27.0-32.0The [facility] Comment on above:Performed By: #### CBC #### [facility] [address] [address] [address] Benoit DiggsCreatinine [Mass/Vol]0.62 mg/dLNormal0.55-1.02The [facility] AndersonComment on above:Performed By: #### CBC #### [facility] [address] [address] [address] Benoit KrausGFR-AF GRENADIAN>60Normal>=60The [facility] AndersonComment on above:Performed By: #### CBC #### [facility] [address] [address] [address] Benoit KrausGFR-NON AF GRENADIAN>60Normal>=60The [facility] AndersonComment on above:Performed By: #### CBC #### [facility] [address] [address] [address] Benoit DiggsGlucose [Mass/Vol]92 mg/sNBrnywt54-766Agy [facility] Comment on above:Performed By: #### CBC #### [facility] [address] [place] [address] Dr. Benoit DiggsPotassium [Moles/Vol]4.1 mmol/LNormal3.5-5.1The [facility] Comment on above:Performed By: #### CBC #### [facility] [address] [place] [address] Dr. Benoit DiggsSodium [Moles/Vol]145 mmol/VWyphcn781-228Cju [facility] Comment on above:Performed By: #### CBC #### [facility] [address] [place] [address] Dr. Benoit DiggsUrea nitrogen [Mass/Vol]8.0 mg/dLNormal7.0-18.0The [facility] AndersonComment on above:Performed By: #### CBC #### [facility] [address] [place] [address] Dr. Benoit Sanchez nitrogen/Creatinine [Mass ratio]12.9 mg/mgNormalThe [facility] AndersonComment on above:Performed By: #### CBC #### [facility] [address] [place] [address] Dr. Benoit Becerra 10-16-9677AGL7.318 uIU/mLNormal0.358-3.740The [facility] AndersonComment on above:Performed By: #### CBC #### [facility] [address] [place] [address] Dr. Benoit Oseguera AUTO DIFFon [id number] #0.1 103/ulNormal0.0-0.1The [facility] AndersonComment on above:Performed By: #### CBC #### [facility] [address] [place] [address] Dr. Benoit DiggsBasophils/100 WBC (Bld)0.7 %Normal0.2-2.0[facility] Comment on above:Performed By: #### CBC #### [facility] [address] [address] [address] Benoit Aleman #0.4 103/ulNormal0.0-0.7The [facility] AndersonComment on above: Performed By: #### CBC #### [facility] [address] [place] [address] Dr. Benoit Krausosinophils/100 WBC (Bld)3.8 %Normal0.9-7.0The [facility] Comment on above:Performed By: #### CBC #### [facility] [address] [place] [address] Dr. Benoit Krausrythrocyte distribution width (RBC) [Ratio]15.2 %Critically high 11.0-15.0The [facility] AndersonComment on above:Performed By: #### CBC #### [facility] [address] [place] [address] Dr. Benoit DiggsHematocrit (Bld) [Volume fraction]28.7 %Critically low36.0-48.0 The [facility] AndersonComment on above:Performed By: #### CBC #### [facility] [address] [place] [address] Dr. Benoit DiggsHemoglobin (Bld) [Mass/Vol]9.1 g/dLCritically low12.0-16.0[facility] CenterComment on above:Performed By: #### CBC #### [facility] [address] [place] [address] Dr. Benoit Amado #0.05 10e3/ulCritically high0.00-0.03The [facility] Comment on above:Performed By: #### CBC #### [facility] [address] [place] [address] Dr. Benoit Amado %0.5 %Normal0.0-0.5The [facility] AndersonComment on above: Performed By: #### CBC #### [facility] [address] [place] [address] Dr. Benoit Dennis #3.3 103/ulNormal1.2-3.8The [facility] AndersonComment on above:Performed By: #### CBC #### [facility] [address] [address] [address] Benoit Pantojamphocytes/100 WBC (Bld)31.8 %Nxgmst29.5-60.0The [facility] AndersonComment on above:Performed By: #### CBC #### [facility] [address] [place] [address] Dr. Benoit Real DIFF REQNONormalThe [facility]mit[facility] HospitalComment on above: Performed By: #### CBC #### [facility] [address] [place] [address] Dr. Benoit Lima (RBC) [Entitic mass]25.3 pgCritically low26.7-34.0The [facility] AndersonComment on above:Performed By: #### CBC #### [facility] [address] [place] [address] Dr. Benoit Lima (RBC) [Mass/Vol]31.7 g/jCUrqkbu76.9-35.2The [facility] AndersonComment on above:Performed By: #### CBC #### [facility] [address] [place] [address] Dr. Benoit Peralta (RBC) [Entitic vol]79.9 fLCritically low81.0-99.0The [facility] AndersonComment on above:Performed By: #### CBC #### [facility] [address] [place] [address] Dr. Benoit Castellano #0.7 103/ulNormal0.3-0.8The [facility] AndersonComment on above:Performed By: #### CBC #### [facility] [address] [place] [address] Dr. Benoit Funezocytes/100 WBC (Bld)7.2 %Normal1.7-12.0The [facility] Comment on above:Performed By: #### CBC #### [facility] [address] [place] [address] Dr. Benoit Amaya #5.8 103/ulNormal1.4-6.5The [facility] AndersonComment on above:Performed By: #### CBC #### [facility] [address] [place] [address] Dr. Benoit Herrerautrophils/100 WBC (Bld)56.0 %Fkzbmv34.0-75.0The [facility] AndersonComment on above:Performed By: #### CBC #### [facility] [address] [place] [address] Dr. Benoit Pearllet mean volume (Bld) [Entitic vol]10.5 fLNormal9.5-13.5The [facility] AndersonComment on above:Performed By: #### CBC #### [facility] [address] [place] [address] Dr. Benoit RaderT152 103/icAaqzeg543-472Nhm [facility] AndersonComment on above: Performed By: #### CBC #### [facility] [address] [place] [address] Dr. Benoit DiggsRBC3.59 106/ulCritically low4.20-5.40The [facility] AndersonComment on above:Performed By: #### CBC #### [facility] [address] [place] [address] Dr. Benoit DiggsWBC10.3 103/ulNormal4.0-11.0The [facility] AndersonComment on above:Performed By: #### CBC #### [facility] [address] [place] [address] Dr. Benoit Oseguera AUTO DIFFon [id number] #0.0 103/ulNormal0.0-0.1The [facility] AndersonComment on above:Performed By: #### CBC #### [facility] [address] [place] [address] Dr. Benoit Taborsophils/100 WBC (Bld)0.4 %Normal0.2-2.0The [facility] on above:Performed By: #### CBC #### [facility] [address] [place] [address] Dr. Benoit Aleman #0.3 103/ulNormal0.0-0.7The [facility] AndersonComment on above: Performed By: #### CBC #### [facility] [address] [place] [address] Dr. Benoit Krausosinophils/100 WBC (Bld)3.1 %Normal0.9-7.0The [facility] Comment on above:Performed By: #### CBC #### [facility] [address] [place] [address] Dr. Benoit Krausrythrocyte distribution width (RBC) [Ratio]15.5 %Critically high 11.0-15.0The [facility] AndersonComment on above:Performed By: #### CBC #### [facility] [address] [place] [address] Dr. Benoit DiggsHematocrit (Bld) [Volume fraction]22.0 %Critically low36.0-48.0 The [facility] AndersonComment on above:Performed By: #### CBC #### [facility] [address] [place] [address] Dr. Benoit DiggsHemoglobin (Bld) [Mass/Vol]6.8 g/dLCritically low12.0-16.0The [facility] AndersonComment on above:Performed By: #### CBC #### [facility] [address] [place] [address] Dr. Benoit Amado #0.05 10e3/ulCritically high0.00-0.03The [facility] Comment on above:Performed By: #### CBC #### [facility] [address] [place] [address] Dr. Benoit Amado %0.5 %Normal0.0-0.5The [facility] AndersonComment on above: Performed By: #### CBC #### [facility] [address] [place] [address] Dr. Benoit Dennis #2.9 103/ulNormal1.2-3.8The [facility] AndersonComment on above:Performed By: #### CBC #### [facility] [address] [place] [address] Dr. Benoit Pantojamphocytes/100 WBC (Bld)31.0 %Dltuto98.5-60.0The [facility] AndersonComment on above:Performed By: #### CBC #### [facility] [address] [place] [address] Dr. Benoit Real DIFF REQNONormalThe [facility] AndersonComment on above: Performed By: #### CBC #### [facility] [address] [place] [address] Dr. Benoit Lima (RBC) [Entitic mass]24.6 pgCritically low26.7-34.0The [facility] AndersonComment on above:Performed By: #### CBC #### [facility] [address] [place] [address] Dr. Benoit Lima (RBC) [Mass/Vol]30.9 g/pVEcvawb83.9-35.2The [facility] AndersonComment on above:Performed By: #### CBC #### [facility] [address] [place] [address] Dr. Benoit Lima (RBC) [Entitic vol]79.7 fLCritically low81.0-99.0The [facility] AndersonComment on above:Performed By: #### CBC #### [facility] [address] [place] [address] Dr. Benoit Castellano #0.8 103/ulNormal0.3-0.8The [facility] AndersonComment on above:Performed By: #### CBC #### [facility] [address] [place] [address] Dr. Benoit Funezocytes/100 WBC (Bld)7.9 %Normal1.7-12.0The [facility] Comment on above:Performed By: #### CBC #### [facility] [address] [place] [address] Dr. Benoit Amaya #5.4 103/ulNormal1.4-6.5The [facility] AndersonComment on above:Performed By: #### CBC #### [facility] [address] [address] [address] Benoit Herrerautrophils/100 WBC (Bld)57.1 %Kaoidn49.0-75.0The [facility] on above:Performed By: #### CBC #### [facility] [address] [place] [address] Dr. Benoit Pearllet mean volume (Bld) [Entitic vol]11.9 fLNormal9.5-13.5The [facility] AndersonComtr[facility] on above:Performed By: #### CBC #### [facility] [address] [place] [address] Dr. Benoit DiggsPLT180 103/umYvncsc408-209Nkb [facility] on above: Performed By: #### CBC #### [facility] [address] [place] [address] Dr. Benoit DiggsRBC2.76 106/ulCritically low4.20-5.40The [facility] on above:Performed By: #### CBC #### [facility] [address] [place] [address] Dr. Benoit DiggsWBC9.5 103/ulNormal4.0-11.0The [facility] on above: Performed By: #### CBC #### [facility] [address] [place] [address] Dr. Benoit DiggsAMNISUREon [id number]YAZNYEJur [facility] on above:Performed By: #### CBC #### [facility] [address] [place] [address] Dr. Benoit GarciaC AUTO DIFFon [id number] #0.1 103/ulNormal0.0-0.1[facility] [facility] on above:Performed By: #### CBC ####[facility] [address] [address]Dr.Yilan DiggsBasophils/100 WBC (Bld)0.6 %Normal0.2-2.0The [facility] on above:Performed By: #### CBC ####[facility] Dqvqzttyeb[address] [place], [place] [address]Dr.Karylan ChangEO #0.4 103/ulNormal0.0-0.7The [facility] HospitalComment on above:Performed By: #### CBC ####[facility] Zgbfmwewdp[address] [place], [place] [address]Dr.Karyaurora ChangEosinophils/100 WBC (Bld)3.5 %Normal 0.9-7.0The [facility] HospitalComment on above:Performed By: #### CBC ####[facility] Czmomrdate[address] [place], [place] [address]Dr.Benoit Diggs Erythrocyte distribution width (RBC) [Ratio]15.4 %Critically high11.0-15.0The [facility] AndersonComment on above:Performed By: #### CBC ####[facility] Kuagapcwez[address] [place], [place] [address]Dr.Benoit ChangHematocrit (Bld) [Volume fraction]26.4 %Critically low36.0-48.0The [facility] AndersonComment on above:Performed By: #### CBC ####[facility] Rsshkcwcnw[address] [place], [place] [address]Dr.Benoit ChangHemoglobin (Bld) [Mass/Vol]8.4 g/dL Critically low12.0-16.0The [facility] AndersonComment on above:Performed By: #### CBC ####[facility] Tovrghuxjx[address] [place], [place] [address]Dr. Benoit ChangIG #0.04 10e3/ulCritically high0.00-0.03The [facility] AndersonComment on above:Performed By: #### CBC ####[facility] Uyrismzvgf[address] [place], [place] [address]Dr.Benoit ChangIG %0.4 %Normal0.0-0.5The [facility] AndersonComment on above:Performed By: #### CBC ####[facility] Vsubqjtuvs00[address] [place], [place] [address]Dr.Benoit ChangLYMPH #2.8 103/ulNormal1.2-3.8The [facility] AndersonComment on above:Performed By: #### CBC ####[facility] Nzqlecxxeb95[address] [place], [place] [address]Dr. Benoit DiggsLymphocytes/100 WBC (Bld)26.9 %Zotzku87.5-60.0The [facility] Comment on above:Performed By: #### CBC ####[facility] Uffztgwzhw[address] [place], [place] [address]Dr.Benoit DiggsMANUAL DIFF REQNONormalThe [facility]a HospitalComment on above:Performed By: #### CBC ####[facility] Lmoefcflwg[address]74[address] [place], [place] [address]Dr.Karyaurora DiggsH (RBC) [Entitic mass]24.7 pgCritically low26.7-34.0The [facility] AndersonComment on above:Performed By: #### CBC ####[facility] Cfcaruhkzy29[address] [place], [place] [address]Dr.Karyaurora DontaeMCHC (RBC) [Mass/Vol]31.8 g/dLNormal 29.9-35.2The [facility] AndersonComment on above:Performed By: #### CBC ####[facility] Hrfxxxnxen47[address] [place], [place] [address]Dr. Karyaurora DontaeMCV (RBC) [Entitic vol]77.6 fLCritically low81.0-99.0The [facility] HospitalComment on above:Performed By: #### CBC ####[facility] Jhzdwrbsyo93[address] [place], [place] [address]Dr.Karyaurora DontaeMONO #0.7 103/ulNormal0.3-0.8The [facility] HospitalComment on above:Performed By: #### CBC ####[facility] Nsycpgftis0625[address] [place], [place] [address]Dr. Karyaurora DontaeMonocytes/100 WBC (Bld)6.2 %Normal1.7-12.0The [facility] Comment on above:Performed By: #### CBC ####[facility] Qkpjwbneey9937[address] [place], [place] [address]Dr.Benoit HerreraUT #6.5 103/ulNormal1.4-6.5 The [facility] AndersonComment on above:Performed By: #### CBC ####[facility] [address] [address]Dr.Benoit Diggs Neutrophils/100 WBC (Bld)62.4 %Ollvdh48.0-75.0The [facility] AndersonComment on above:Performed By: #### CBC ####[facility] Svxkwbrxyc30[address] [place], [place] [address]Dr.Benoit DiggsPlatelet mean volume (Bld) [Entitic vol] 11.0 fLNormal9.5-13.5The [facility] AndersonComment on above:Performed By: #### CBC ####[facility] Ggpgeiudas[address] [place], [place] [address]Dr. Benoit DiggsPLT215 103/ewLhsdyt372-206Mjx [facility] AndersonComment on above: Performed By: #### CBC ####[facility] Wjsgqgojau4[address] [place], [place] [address]DrQuincy DiggsRBC3.40 106/ulCritically low4.20-5.40The [facility] AndersonComment on above:Performed By: #### CBC ####[facility] Nomkjxpsxk493[address] [place], [place] [address]Dr.Benoit DiggsWBC10.4 103/ul Normal4.0-11.0[facility] Medical CenterComment on above:Performed By: #### CBC ####[facility] Gkhdjabbcr[address] [place], [place] [address]DrJael DiggsDRUG SCREEN RAPID (URINE)on [id number]NBiv Bellevue HospitalComment on above:Performed By: #### CBC #### [facility] [address] [place] [address] Dr. Benoit SchwartzNegativeNormalNEGATIVEUniversity Hospitals Elyria Medical CenterComment on above: Performed By: #### CBC #### [facility] [address] [place] [address] Dr. Benoit RiosPNegativeNormalNEGATIVEUniversity Hospitals Elyria Medical CenterComment on above: Performed By: #### CBC #### [facility] [address] [address] [address] Benoit DiggsBZONegativeNormalNEGATIVEThe [facility] on above: Performed By: #### CBC #### [facility] [address] [address] [address] Benoit DiggsCOCNegativeNormalNEGATIVEUniversity Hospitals Elyria Medical CenterComment on above: Performed By: #### CBC #### [facility] [address] [address] [address] Benoit WagnerMetroHealth Main Campus Medical CenterComtrinity health [facility] on above: Result Comment: AMP (Amphetamine): 500ng/mL, BAR (Barbituates): 200 ng/mL, BZO (Benzodiazepines): 150 ng/mL, BUP (Buprenorphine): 10 ng/mL, JOSE MANUEL (Cocaine): 150 ng/mL, mAMP (Methamphetamine): 500 ng/mL, MTD (Methadone): 200 ng/mL, OPI (Opiates): 100 ng/mL, OXY (Oxycodone): 100 ng/mL, PCP (Phencyclidine): 25 ng/mL, PPX (Propoxyphene): 300 ng/mL, THC (Cannabinoids): 50 ng/mL, TCA (Trycyclic Antidepressants): 300 ng/mLPerformed By: #### CBC #### [facility] [address] [place] [address] Dr. Benoit DiggsDRUG CUT HEADERDRUG CLASS TEST SYSTEM CUT-OFF CONCENTRATIONS ARE FOLLOWS:NormalThe [facility] AndersonComtr[facility] on above:Performed By: #### CBC #### [facility] [address] [address] [address] Benoit DiggsmAMPNegativeNormalNEGATIVEUniversity Hospitals Elyria Medical CenterComtr[facility] on above: Performed By: #### CBC #### [facility] [address] [address] [address] Benoit DiggsMTDNegativeNormmeNEGATIVEThe [facility] on above: Performed By: #### CBC #### [facility] [address] [address] [address] Benoit DiggsOPINegativeNormalNEGATIVEUniversity Hospitals Elyria Medical CenterComment on above: Performed By: #### CBC #### [facility] [address] [place] [address] Dr. Benoit DiggsOXYNegativeNormalNEGATIVEThe [facility] on above: Performed By: #### CBC #### [facility] [address] [address] [address] Benoit DiggsPCPNegativeNormalNEGATIVEThe [facility] on above: Performed By: #### CBC #### [facility] [address] [place] [address] Dr. Benoit DiggsPPXNegativeNormalNEGATIVEThe [facility] on above: Performed By: #### CBC #### [facility] [address] [place] [address] Dr. Benoit DiggsTCANegativeNormalNEGUniversity Hospitals [facility] on above: Performed By: #### CBC #### [facility] [address] [place] [address] Dr. Benoit DiggsTHCNegativeNormalNEGATIVEThe [facility] on above: Performed By: #### CBC #### [facility] [address] [place] [address] Dr. Benoit Delgado AND SCREENon [id number] AND SCREENNegativeNormalThe [facility] on above:Performed By: #### TNS #### [facility] [address] [place] [address] Dr. Benoit Wiseman (CLEAN/CATCH) NPS/MICRO IF IND.on [id number] Ql (U) NegativeNormalNEGATIVEThe [facility] on above:Performed By: #### CBC #### [facility] [address] [place] [address] Dr. Benoit Rodrigezarity (U)CLEARNormalCLEARUniversity Hospitals Elyria Medical CenterComtrinity health [facility] on above: Performed By: #### CBC #### [facility] [address] [place] [address] Dr. Benoit Gibsonlor (U)YELLOWNormalYELLOWUniversity Hospitals Elyria Medical CenterComment on above: Performed By: #### CBC #### [facility] [address] [place] [address] Dr. Benoit DiggsGlucose Ql (U)NegativeNormalNEGATIVEUniversity Hospitals Elyria Medical CenterComment on above:Performed By: #### CBC #### [facility] [address] [place] [address] Dr. Benoit DiggsHemoglobin Ql (U)NegativeNormalNEGATIVEWay[facility] on above:Performed By: #### CBC #### [facility] [address] [address] [address] Benoit DiggsKetones Ql (U)NegativeNormalNEGATIVEUniversity Hospitals Elyria Medical CenterComment on above:Performed By: #### CBC #### [facility] [address] [place] [address] Dr. Benoit DiggsLEUKOCYTESNegativeNormalNEGATIVEUniversity Hospitals Elyria Medical CenterComment on above:Performed By: #### CBC #### [facility] [address] [place] [address] Dr. Benoit Armstrongtrite Ql (U)NegativeNormalNEGATIVEUniversity Hospitals Elyria Medical CenterComment on above:Performed By: #### CBC #### [facility] Laboratory [address] [place] [address] Dr. Benoit DiggspH (U)6.0 [pH]Normal5-9The [facility] Hospitalment on above: Performed By: #### CBC #### [facility] [address] [place] [address] Dr. Benoit DiggsSPEC GRAVITY1.899Yjadkq3.005-<=1.025The [facility] AndersonComment on above:Performed By: #### CBC #### [facility] [address] [place] [address] Dr. Benoit Wiseman PROTEINTRACENormalNEGATIVE/ TRACEThe [facility] AndersonComment on above:Performed By: #### CBC #### [facility] [address] [place] [address] Dr. Benoit Veras MICRO INDNOT INDICATEDNormalThCity HospitalComment on above:Performed By: #### CBC #### [facility] Laboratory [address] [place] [address] Dr. Benoit Milesbilinogen Qn (U)4 {Nadege'U}/dLAbnormal0.2 - 1.0[facility] Hospitalment on above:Performed By: #### CBC #### [facility] [address] [place] [address] Dr. Benoit GusmanLTURE URINEon [id number] URINECulture Observations: MODERATE GROWTH OF MIXED GENITAL RIZWAN. NO POTENTIAL PATHOGENS SEEN.NormalThe [facility] AndersonComment on above:Performed By: #### URCX #### [facility] [address] [place] [address] Dr. Benoit Wiseman (CLEAN/CATCH) NPS/MICRO IF IND.on [id number] Ql (U) SMALLAbnormalNEGATIVEGlenbeigh Hospitalment on above:Performed By: #### CBC #### [facility] [address] [place] [address] Dr. Benoit DiggsClarity (U)CLEARNormalCLEARUniversity Hospitals Elyria Medical CenterComment on above: Performed By: #### CBC #### [facility] [address] [place] [address] Dr. Benoit Loya (U)DK. ORANGEAbnormalYELLOWUniversity Hospitals Elyria Medical CenterComment on above:Performed By: #### CBC #### [facility] [address] [place] [address] Dr. Benoit DiggsGlucose Ql (U)NegativeNormalNEGATIVEUniversity Hospitals Elyria Medical CenterComment on above:Performed By: #### CBC #### [facility] [address] [place] [address] Dr. Benoit DiggsHemoglobin Ql (U)NegativeNormalNEGATIVEWayne Healthcare [facility] on above:Performed By: #### CBC #### [facility] [address] [place] [address] Dr. Benoit DiggsKetones Ql (U)TRACEAbnormalNEGATIVEUniversity Hospitals Elyria Medical CenterComment on above:Performed By: #### CBC #### [facility] [address] [place] [address] Dr. Benoit DanOCYTESSMALLAbnormalNEGATIVEUniversity Hospitals Elyria Medical CenterComment on above:Performed By: #### CBC #### [facility] [address] [address] [address] Benoit Armstrongtrite Ql (U)NegativeNormalNEGATIVEThe [facility] AndersonComment on above:Performed By: #### CBC #### [facility] Laboratory [address] [address] [address] Benoit DiggspH (U)5.5 [pH]Normal5-9The [facility] AndersonComment on above: Performed By: #### CBC #### [facility] Laboratory [address] [place] [address] Dr. Benoit DiggsSPEC GRAVITY>=1.906Jpcpcvlb1.005-<=1.025The [facility] Comment on above:Performed By: #### CBC #### [facility] Laboratory [address] [address] [address] Benoit Wiseman POGPBPL262 mg/dlAbthree rivers healthcarealNEGATIVE/ TRACEUniversity Hospitals Elyria Medical Center Comment on above:Performed By: #### CBC #### [facility] [address] [place] [address] Dr. Benoit Veras MICRO INDINDICATEDNormalThCity HospitalComment on above: Performed By: #### CBC #### [facility] [address] [place] [address] Dr. Benoit Milesbilinogen Qn (U)8 {Nadege'U}/dLAbnormal0.2 - 1.0The [facility] AndersonComment on above:Performed By: #### CBC #### [facility] [address] [place] [address] Dr. Benoit Stewart MICROSCOPIC ONLYon [id number]ZWRA SEENThe [facility] AndersonComment on above:Performed By: #### CBC #### [facility] [address] [address] [address] Benoit Loco identified Cx Nom (U)INDICATEDUniversity Hospitals Elyria Medical CenterComment on above:Performed By: #### CBC #### [facility] [address] [place] [address] Dr. Benoit Norton SEENNormBanner Behavioral Health HospitalE SEENThe [facility] on above:Performed By: #### CBC #### [facility] [address] [address] [address] Benoit Beckettystals LM Nom (Urine sed)NONE SEENNormalNONE SEENThe [facility] on above:Performed By: #### CBC #### [facility] [address] [place] [address] Dr. Laboy ChangEpithelial cells LM Ql (Urine sed)MANYAbnormalNONE SEEN /RAREThe [facility] on above:Performed By: #### CBC #### [facility] [address] [place] [address] Dr. Benoit TalbertMALLAbSelect Specialty HospitalE SEENThe [facility] on above:Performed By: #### CBC #### [facility] [address] [place] [address] Dr. Benoit CevallosJddtaETS6-51Wrxhkzhv8-1Okx [facility] on above:Performed By: #### CBC #### [facility] [address] [place] [address] Dr. Benoit DiggsNjoxcJDI52-17BhkvfnreIUJC SEENThe [facility] on above: Performed By: #### CBC #### [facility] [address] [place] [address] Dr. Benoit Villarreal B STREP CULTUREon 11-18-2022S. agalactiae Ag Ql (Unsp spec) Culture Observations: NEGATIVE FOR GROUP B STREPTOCOCCUS.NormalThe [facility] AndersonComtrinity health [facility] on above: Performed By: #### GBSCX #### [facility] [address] [place] [address] Dr. Benoit Oseguera AUTO DIFFon [id number] #0.0 103/ulNormal0.0-0.1The [facility] AndersonComment on above:Performed By: #### CBC #### [facility] [address] [place] [address] Dr. Benoit DiggsBasophils/100 WBC (Bld)0.3 %Normal0.2-2.0The [facility] Comment on above:Performed By: #### CBC #### [facility] [address] [place] [address] Dr. Benoit Aleamn #0.1 103/ulNormal0.0-0.7The [facility] AndersonComment on above: Performed By: #### CBC #### [facility] [address] [place] [address] Dr. Benoit Krausosinophils/100 WBC (Bld)2.0 %Normal0.9-7.0The [facility] Comment on above:Performed By: #### CBC #### [facility] [address] [place] [address] Dr. Benoit Krausrythrocyte distribution width (RBC) [Ratio]12.7 %Bwckil78.0-15.0 The [facility] AndersonComment on above:Performed By: #### CBC #### [facility] [address] [place] [address] Dr. Benoit DiggsHematocrit (Bld) [Volume fraction]30.6 %Critically low36.0-48.0 The [facility] AndersonComment on above:Performed By: #### CBC #### [facility] [address] [place] [address] Dr. Benoit DiggsHemoglobin (Bld) [Mass/Vol]10.1 g/dLCritically low12.0-16.0The [facility] AndersonComment on above:Performed By: #### CBC #### [facility] [address] [place] [address] Dr. Benoit Amado #0.03 10e3/ulNormal0.00-0.03The [facility] AndersonComment on above:Performed By: #### CBC #### [facility] [address] [address] [address] Benoit Amado %0.5 %Normal0.0-0.5The [facility] AndersonComment on above: Performed By: #### CBC #### [facility] [address] [address] [address] Benoit Dennis #0.6 103/ulCritically low1.2-3.8The [facility] Comment on above:Performed By: #### CBC #### [facility] [address] [address] [address] Benoit Beckmanhocytes/100 WBC (Bld)10.7 %Critically low20.5-60.0The [facility] AndersonComment on above:Performed By: #### CBC #### [facility] [address] [place] [address] Dr. Benoit FuentesUAL DIFF REQNONormalThe [facility] AndersonComment on above: Performed By: #### CBC #### [facility] [address] [place] [address] Dr. Benoit Lima (RBC) [Entitic mass]28.9 uyOdffjg48.7-34.0The [facility] AndersonComment on above:Performed By: #### CBC #### [facility] [address] [place] [address] Dr. Benoit Lima (RBC) [Mass/Vol]33.0 g/vLIqnwcs67.9-35.2The [facility] AndersonComment on above:Performed By: #### CBC #### [facility] [address] [place] [address] Dr. Benoit Lima (RBC) [Entitic vol]87.4 rDIqzysj58.0-99.0The [facility] AndersonComment on above:Performed By: #### CBC #### [facility] [address] [place] [address] Dr. Benoit Castellano #0.6 103/ulNormal0.3-0.8The [facility] AndersonComment on above:Performed By: #### CBC #### [facility] [address] [address] [address] Benoit Funezocytes/100 WBC (Bld)10.9 %Normal1.7-12.0The [facility] Comment on above:Performed By: #### CBC #### [facility] [address] [place] [address] Dr. Benoit HerreraUT #4.4 103/ulNormal1.4-6.5The [facility] AndersonComment on above:Performed By: #### CBC #### [facility] [address] [place] [address] Dr. Benoit Herrerautrophils/100 WBC (Bld)75.6 %Critically high43.0-75.0The [facility] AndersonComment on above:Performed By: #### CBC #### [facility] [address] [place] [address] Dr. Benoit DiggsPlatelet mean volume (Bld) [Entitic vol]10.9 fLNormal9.5-13.5The [facility] AndersonComment on above:Performed By: #### CBC #### [facility] [address] [place] [address] Dr. Benoit DiggsPLT191 103/fyCqgrgd031-249Xks [facility] AndersonComment on above: Performed By: #### CBC #### [facility] [address] [place] [address] Dr. Benoit DiggsRBC3.50 106/ulCritically low4.20-5.40The [facility] AndersonComment on above:Performed By: #### CBC #### [facility] [address] [place] [address] Dr. Benoit DiggsWBC5.9 103/ulNormal4.0-11.0The [facility] AndersonComment on above: Performed By: #### CBC #### [facility] [address] [place] [address] Dr. Benoit Lancaster URINEon [id number] URINECulture Observations: HEAVY GROWTH OF MIXED GENITAL RIZWAN. NO POTENTIAL PATHOGENS SEEN.NormalThe [facility]mita HospitalComment on above:Performed By: #### URCX #### [facility] [address] [address] [address] Benoit Brower URINE PROFILEon [id number] Ql (U)NegativeNormal NEGATIVEUniversity Hospitals Elyria Medical CenterComtrinity health [facility] on above:Performed By: #### HIV12 #### [facility] [address] [address] [address] Benoit DiggsClarity (U)CLEARNormalCLEARUniversity Hospitals Elyria Medical CenterComtrinity [facility] on above: Performed By: #### HIV12 #### [facility] [address] [place] [address] Dr. Benoit Loya (U)YELLOWNormalYELLOWThe [facility] on above: Performed By: #### HIV12 #### [facility] [address] [place] [address] Dr. Benoit Epperson micrscopic examination will be performed if indicated. NormalUniversity Hospitals Elyria Medical CenterComtrinity health [facility] hospital on above:Performed By: #### HIV12 #### [facility] [address] [place] [address] Dr. Benoit DiggsGlucose Ql (U)NegativeNormalNEGATIVEThe [facility] on above:Performed By: #### HIV12 #### [facility] - [facility] [address] [place] [address] Dr. Benoit DiggsHemoglobin Ql (U)NegativeNormalNEGSt. Charles Hospital Comment on above:Performed By: #### HIV12 #### [facility] [address] [address] [address] Benoit DiggsKetones Ql (U)15 mg/dlAbnormalNEGSt. Charles Hospital Comment on above:Performed By: #### HIV12 #### [facility] [address] [place] [address] Dr. Benoit DiggsLEUKOCYTESNegativeNormalNEGATIVEThe [facility] on above:Performed By: #### HIV12 #### [facility] [address] [place] [address] Dr. Benoit DiggsNitrite Ql (U)NegativeNormalNEGATIVEThe [facility] AndersonComment on above:Performed By: #### HIV12 #### [facility] [address] [place] [address] Dr. Benoit DiggspH (U)6.5 [pH]Normal5-9The [facility] on above: Performed By: #### HIV12 #### [facility] [address] [place] [address] Dr. Benoit DiggsSPEC GRAVITY1.438Ctwzmk8.005-<=1.025The [facility] AndersonComtr[facility] on above:Performed By: #### HIV12 #### [facility] [address] [place] [address] Dr. Benoit Wiseman PROTEINTRACENormalNEGATIVE/ TRACEThe [facility] on above:Performed By: #### HIV12 #### [facility] [address] [place] [address] Dr. Benoit Veras MICRO INDINDICATEDNoCincinnati Children's Hospital Medical CenterComment on above: Performed By: #### HIV12 #### [facility] [address] [place] [address] Dr. Benoit Milesbilinogen Qn (U)1.0 {Nadege'U}/dLNormal0.2 - 1.0The [facility] on above:Performed By: #### HIV12 #### [facility] [address] [place] [address] Dr. Benoit DiggsINFLUENZA A AND B AGon [id number] Health Defiance Hospital on above:Result Comment: Negative for Flu A protein angiten. Infection due to Flu A cannot be ruled out. FluA angiten in the sample may be below the detection limit of the test.Performed By: #### HIV12 #### [facility] [address] [place] [address] Dr. Benoit DiggsINFLUBNEGMercy Health Defiance Hospital on above: Result Comment: Negative for Flu B protein antigen. Infection due to Flu B cannot be ruled out. FluB antigen in the sample may be below the detection limit of the test.Performed By: #### HIV12 #### [facility] [address] [place] [address] Dr. Benoit Souza AGNegativeNormalNEGATIVE SEE COMMENTThe [facility] AndersonComment on above:Performed By: #### HIV12 #### [facility] [address] [place] [address] Dr. Benoit Gonzalez AGNegativeNormalNEGATIVE SEE COMMENTThe [facility] AndersonComment on above:Performed By: #### HIV12 #### [facility] [address] [place] [address] Dr. Benoit DiggsINTERNAL CONTROLSWithin Normal LimitsNormalWithin Normal Limits The [facility] AndersonComment on above:Performed By: #### HIV12 #### [facility] [address] [place] [address] Dr. Benoit DiggsPROF CHEM 8 (BAS METB)on [id number] gap [Moles/Vol]11.6 mmol/LNormalThe [facility] AndersonComment on above:Performed By: #### CBC #### [facility] [address] [place] [address] Dr. Benoit DiggsCalcium [Mass/Vol]8.2 mg/dLCritically low8.5-10.1The [facility] AndersonComment on above:Performed By: #### CBC #### [facility] [address] [place] [address] Dr. Benoit DiggsChloride [Moles/Vol]100 mmol/NVdiuil83-269Wyk [facility] Comment on above:Performed By: #### CBC #### [facility] [address] [place] [address] Dr. Benoit DiggsCO2 [Moles/Vol]23.9 mmol/OEwzuvw84.0-32.0The [facility] Comment on above:Performed By: #### CBC #### [facility] [address] [place] [address] Dr. Benoit DiggsCreatinine [Mass/Vol]0.48 mg/dLCritically low0.55-1.02The [facility] Hospitalment on above:Performed By: #### CBC #### [facility] [address] [address] [address] Benoit KrausGFR-AF GRENADIAN>60Normal>=60The [facility] Hospitalment on above:Performed By: #### CBC #### [facility] [address] [address] [address] Benoit KrausGFR-NON AF GRENADIAN>60Normal>=60The [facility] AndersonComment on above:Performed By: #### CBC #### [facility] [address] [address] [address] Benoit DiggsGlucose [Mass/Vol]94 mg/cZLxodra52-070Yjp [facility] Comment on above:Performed By: #### CBC #### [facility] [address] [address] [address] Benoit DiggsPotassium [Moles/Vol]3.5 mmol/LNormal3.5-5.1The [facility] Comment on above:Performed By: #### CBC #### [facility] [address] [address] [address] Benoit DiggsSodium [Moles/Vol]132 mmol/LCritically kcl746-272Edy [facility] on above:Performed By: #### CBC #### [facility] [address] [address] [address] Benoit DiggsUrea nitrogen [Mass/Vol]6.0 mg/dLCritically low7.0-18.0The [facility] Hospitalment on above:Performed By: #### CBC #### [facility] [address] [address] [address] Benoit DiggsUrea nitrogen/Creatinine [Mass ratio]12.5 mg/mgNormalThe [facility] AndersonComtrinity health [facility] on above:Performed By: #### CBC #### [facility] [address] [address] [address] Benoit DiggsRESPIRATORY PANEL PLUSon 00-60-4990EqkymbrouuFzy detectedNormal NOT DETECTEDThe Emma HospitalComment on above:Performed By: #### RSPLUS ####[facility] [address] [address]Dr. Benoit DiggsB. ParapertusisNot detectedNormalNOT DETECTEDThe [facility] Comment on above:Performed By: #### RSPLUS ####[facility] [address] [place], [place] [address]Dr. Beniot DiggsB. PertussisNot detected NormalNOT DETECTEDThe [facility] AndersonComment on above:Performed By: #### RSPLUS ####[facility] E[address] [place], [place] [address]Dr. Benoit DiggsChlamydia PneumoniaeNot detectedNormalNOT DETECTEDThe [facility] AndersonComment on above:Performed By: #### RSPLUS ####[facility] [address]tfves[address] [place], [place] [address]Dr. Benoit Diggs Coronavirus 229ENot detectedNormalNOT DETECTEDThe [facility] AndersonComment on above:Performed By: #### RSPLUS ####[facility] Us[address] [place], [place] [address]Dr. Yiaurora ChangCoronavirus YQV4Tnk detectedNormalNOT DETECTEDThe [facility] AndersonComment on above:Performed By: #### RSPLUS ####[facility] S[address] [place], [place] [address]Dr. Yilan ChangCoronavirus YP09Yfu detectedNormalNOT DETECTEDThe [facility] Comment on above:Performed By: #### RSPLUS ####[facility] Rbrqjxmnec[address] [place], [place] [address]Dr. Yilan ChangCoronavirus MQ00Erb detected NormalNOT DETECTEDThe [facility] AndersonComment on above:Performed By: #### RSPLUS ####[facility] [address]cl[address]inup[address] [place], [place] [address]Dr. Karylan DontaeInfluenza A H1 2009DetectedAbnormalNOT DETECTEDThe [facility] AndersonComment on above:Performed By: #### RSPLUS ####[facility] [address] [place], [place] [address]Dr. Yilan ChangInfluenza A H3 Not detectedNormalNOT DETECTEDThe [facility] AndersonComment on above:Performed By: #### RSPLUS ####[facility] [address] [address]Dr. Benoit DiggsInfluenza BNot detectedNormalNOT DETECTEDThe [facility] AndersonComment on above:Performed By: #### RSPLUS ####[facility] [address] [address]Dr. Benoit Diggs MetapneumovirusNot detectedNormalNOT DETECTEDThe [facility] AndersonComment on above:Performed By: #### RSPLUS ####[facility] St[address] [place], [place] [address]Dr. Benoit DiggsMycoplas. PneumoniaeNot detectedNormal NOT DETECTEDThe [facility] AndersonComment on above:Performed By: #### RSPLUS ####[facility] [address] [place], [place] [address]Dr. Benoit DiggsParainfluenza 1Not detectedNormalNOT DETECTEDThe [facility] Comment on above:Performed By: #### RSPLUS ####[facility] [address]ns[address] [place], [place] [address]Dr. Benoit DiggsParainfluenza 2Not detected NormalNOT DETECTEDThe [facility] AndersonComment on above:Performed By: #### RSPLUS ####[facility] [address] [place], [place] [address]Dr. Benoit DiggsParainfluenza 3Not detectedNormalNOT DETECTEDThe [facility] AndersonComment on above:Performed By: #### RSPLUS ####[facility] [address] [place], [place] [address]Dr. Benoit ChangParainfluenza 4Not detectedNormalNOT DETECTEDThe [facility] AndersonComment on above:Performed By: #### RSPLUS ####[facility] Tr[address] [place], [place] [address]Dr. Benoit ChangRhino/EnterovirusNot detectedNormalNOT DETECTEDThe [facility] AndersonComment on above:Performed By: #### RSPLUS ####[facility] [address] [id number]. Benoit Kumar2 Header 1RESPIRATORY PANEL: VIRUSESNormalThe [facility] AndersonComment on above: Performed By: #### RSPLUS ####[facility] [address] [id number]. Benoit DiggsRP2 Header 2RESPIRATORY PANEL: BACTERIA NormalThe [facility] AndersonComtr[facility] on above:Performed By: #### RSPLUS ####[facility] [address] [id number]. Benoit DiggsRSVNot detectedNormalNOT DETECTEDThe [facility] on above:Performed By: #### RSPLUS ####[facility] [address] [address]Dr. Benoit Farias-CoV-2 (COVID-19) RNA RANDOLPH+probe Ql (Unsp spec)Not detectedNormalNOT DETECTEDThe [facility] on above: Performed By: #### RSPLUS ####[facility] [address] [address]. Benoit Vee Comment: When diagnostic testing is [...] for this test is supported by the [place] of [employer] and Human Service's declaration that [...] longer be used).Performed By: #### HIV12 #### [facility] [address] [address] [address] Benoit TURCIOSon [id number]PO SEEN [facility] on above:Performed By: #### HIV12 #### [facility] [address] [place] [address] Dr. Benoit Loco identified Cx Nom (U)INDICATEDNoalThGuernsey Memorial Hospital on above:Performed By: #### HIV12 #### [facility] [address] [place] [address] Dr. Benoit SinclairE SEENNormalNONE SEENThe [facility] on above:Performed By: #### HIV12 #### [facility] [address] [place] [address] Dr. Benoit Gomez LM Nom (Urine sed)NONE SEENNormalNONE SEENThe [facility] on above:Performed By: #### HIV12 #### [facility] [address] [place] [address] Dr. Laboy ChangEpithelial cells LM Ql (Urine sed)MODERATEAbnormalNONE SEEN /RARE The [facility] AndersonComtr[facility] on above:Performed By: #### HIV12 #### [facility] [address] [place] [address] Dr. Benoit HessE SEENNormalNONE SEENThe [facility] on above:Performed By: #### HIV12 #### [facility] [address] [place] [address] Dr. Benoit JensenMpllwSOX1-1Ifcwhg4-3IogThe [facility] on above:Performed By: #### HIV12 #### [facility] [address] [place] [address] Dr. Benoit ChristineBC5-10AbnormalNONE SEENThe [facility] on above: Performed By: #### HIV12 #### [facility] [address] [place] [address] Dr. Benoit Oseguera AUTO DIFFon [id number] #0.1 103/ulNormal0.0-0.1[facility] on above:Performed By: #### CBC #### [facility] [address] [address] [address] Benoit DiggsBasophils/100 WBC (Bld)0.5 %Normal0.2-2.0[facility] Comment on above:Performed By: #### CBC #### [facility] [address] [address] [address] Benoit Aleman #0.4 103/ulNormal0.0-0.7The [facility] AndersonComment on above: Performed By: #### CBC #### [facility] [address] [place] [address] Dr. Benoit Krausosinophils/100 WBC (Bld)4.1 %Normal0.9-7.0The [facility] Comment on above:Performed By: #### CBC #### [facility] [address] [place] [address] Dr. Benoit Krausrythrocyte distribution width (RBC) [Ratio]12.8 %Nsrqsj24.0-15.0 [facility] CenterComment on above:Performed By: #### CBC #### [facility] [address] [place] [address] Dr. Benoit DiggsHematocrit (Bld) [Volume fraction]31.4 %Critically low36.0-48.0 [facility] CenterComment on above:Performed By: #### CBC #### [facility] [address] [place] [address] Dr. Benoit DiggsHemoglobin (Bld) [Mass/Vol]10.5 g/dLCritically low12.0-16.0[facility] CenterComment on above:Performed By: #### CBC #### [facility] [address] [place] [address] Dr. Benoit Amado #0.05 10e3/ulCritically high0.00-0.03The [facility] Comment on above:Performed By: #### CBC #### [facility] [address] [place] [address] Dr. Benoit Amado %0.5 %Normal0.0-0.5The [facility] Hospitalment on above: Performed By: #### CBC #### [facility] [address] [address] [address] Benoit Dennis #2.2 103/ulNormal1.2-3.8[facility] on above:Performed By: #### CBC #### [facility] [address] [place] [address] Dr. Benoit Beckmanhocytes/100 WBC (Bld)21.9 %Senkiw26.5-60.0[facility] on above:Performed By: #### CBC #### [facility] [address] [place] [address] Dr. Benoit Real DIFF REQNONormalThe [facility] AndersonComtr[facility] on above: Performed By: #### CBC #### [facility] [address] [place] [address] Dr. Benoit Lima (RBC) [Entitic mass]29.7 soEqncqp20.7-34.0[facility] on above:Performed By: #### CBC #### [facility] [address] [place] [address] Dr. Benoit Lima (RBC) [Mass/Vol]33.4 g/zHJkltsj54.9-35.2[facility] on above:Performed By: #### CBC #### [facility] [address] [place] [address] Dr. Benoit Lima (RBC) [Entitic vol]89.0 fOMkhobg94.0-99.0[facility] on above:Performed By: #### CBC #### [facility] [address] [place] [address] Dr. Benoit Castellano #0.6 103/ulNormal0.3-0.8The [facility] on above:Performed By: #### CBC #### [facility] [address] [place] [address] Dr. Benoit Funezocytes/100 WBC (Bld)5.7 %Normal1.7-12.0The [facility] Comment on above:Performed By: #### CBC #### [facility] [address] [address] [address] Benoit Amaya #6.8 103/ulCritically high1.4-6.5ThCity [facility] Comment on above:Performed By: #### CBC #### [facility] [address] [address] [address] Benoit Herrerautrophils/100 WBC (Bld)67.3 %Rrnykw21.0-75.0The [facility] AndersonComment on above:Performed By: #### CBC #### [facility] [address] [address] [address] Benoit DiggsPlatelet mean volume (Bld) [Entitic vol]11.0 fLNormal9.5-13.5The [facility] AndersonComment on above:Performed By: #### CBC #### [facility] [address] [address] [address] Benoit DiggsPLT215 103/thTwalao567-164Sli [facility] AndersonComment on above: Performed By: #### CBC #### [facility] [address] [address] [address] Benoit DgigsRBC3.53 106/ulCritically low4.20-5.40The [facility] AndersonComment on above:Performed By: #### CBC #### [facility] [address] [address] [address] Benoit DiggsWBC10.2 103/ulNormal4.0-11.0[facility] CenterComment on above:Performed By: #### CBC #### [facility] [address] [address] [address] Benoit DiggsGLUCOSE - 1HRon 30-26-6782Lenbkgs [Mass/Vol]116 mg/dLCritically oiai06-290Ryj [facility] AndersonComment on above:Performed By: #### GLU1HR ####[facility] [address] [address]Dr. Benoit Mcconnell ACOG PANEL 2: 21 to 29on 10-25-2022..[facility] Comment on above:Performed By: #### CBC #### [facility] [address] [place] [address] Dr. Benoit Flores Gdln ACOG Mmxkljo77-67PpktajFqyMetroHealth Cleveland Heights Medical Centerment on above:Performed By: #### CBC #### [facility] [address] [place] [address] Dr. Benoit DiggsDIAGNOSIS:CommentTriHealth Good Samaritan Hospital on above: Result Comment: NEGATIVE FOR INTRAEPITHELIAL LESION OR MALIGNANCY.Performed By: #### CBC #### [facility] [address] [place] [address] Dr. Benoit DiggsMethodology:CommentTriHealth Good Samaritan Hospital on above: Result Comment: This liquid based ThinPrep(R) pap test was screened with the use of an image guided system.Performed By: #### CBC #### [facility] [address] [place] [address] Dr. Benoit DiggsNote:CommentTriHealth Good Samaritan Hospital on above:Result Comment: The Pap smear is a screening test designed to aid in the detection of premalignant and malignant conditions of the uterine cervix. It is not a diagnostic procedure and should not be used as the sole means of detecting cervical cancer. Both false-positive and false-negative reports do occur. .Performed By: #### CBC #### [facility] [address] [place] [address] Dr. Benoit DiggsPerformed by:CommentTriHealth Good Samaritan Hospital on above: Result Comment: Cynthia Smith, Bilingual Interpreter (ASCP)Performed By: #### CBC #### [facility] [address] [place] [address] Dr. Benoit DiggsReflex Criteria:CommentTriHealth Good Samaritan Hospital on above:Result Comment: The HPV DNA reflex criteria were not met with this specimen result therefore, no HPV testing was performed. .Performed By: #### CBC #### [facility] [address] [place] [address] Dr. Yilan ChangSpecimen adequacy:CommentUniversity Hospitals Elyria Medical CenterComment on above:Result Comment: Satisfactory for evaluation. No endocervical component is identified.Performed By: #### CBC #### [facility] [address] [address] [address] Benoit DiggsCHLAMYDIA/GONOCOCCUS RANDOLPH (SWAB/URINE/PAPon 24-94-4794Ogywwvohf trachomatis, NAANegativeNormalNegativeThe [facility] AndersonComment on above: Performed By: #### HIV12 #### [facility] [address] [address] [address] Benoit DiggsNeisseria gonorrhoeae, NAANegativeNormalNegativeThe [facility] AndersonComment on above:Performed By: #### HIV12 #### [facility] [address] [place] [address] Dr. Benoit Hampton PREG INCOMPLETE ANATOMYon 06-50-7180ZL PREG INCOMPLETE ANATOMY EXAMINATION: US PREG INCOMPLETE [...] Electronically authenticated by: MYLENE SULLIVAN Date: 2022-08-07 20:09NoCincinnati Children's Hospital Medical CenterUS PREG ANATOMY SINGLEon [id number] PREG ANATOMY SINGLE EXAMINATION: US PREG ANATOMY [...] Electronically authenticated by: AISHWARYA MAGALLON Date: 2022-07-25 17:11[facility] MATERNAL FOR SPINA BIFIDAon 85-92-6022NFF MoM0.55[facility] Medical CenterComment on above:Performed By: #### HIV12 #### [facility] [address] [place] [address] Dr. Benoit Chavarria Value20.0 ng/mLNKettering Health Main CampusComment on above: Performed By: #### HIV12 #### [facility] [address] [place] [address] Dr. Benoit Chavarria, Serum for Spina BifidaReportUniversity Hospitals [facility] Comment on above:Performed By: #### HIV12 #### [facility] [address] [place] [address] Dr. Benoit GradyClinton Memorial HospitalComment on above:Result Comment: Caitlin Palafox, Ph.D., [facility] Director . References: Available Upon Request. . Multiples Of Median Cutoffs For AFP Elevations Caro 2.5 Black 2.8 IDD 2.0 Twins 4.5 Abbreviation Definitions IDD - Insulin Dep Diabetes OSBR - Open Spina Bifida Risk . For further inquiries contact [employer] [facility] at [phone]. . This test was developed and its performance characteristics determined by [employer]. It has not been cleared or approved by the Food and Drug Administration.Performed By: #### HIV12 #### [facility] [address] [place] [address] Dr. Benoit Rodriguez Age Collection Date18.1 [facility] Comment on above:Performed By: #### HIV12 #### [facility] [address] [place] [address] Dr. Benoit Rodriguezat, Age Based onUltrasParma Community General HospitalComment on above:Result Comment: 13:1 on 06/06/2022 Recalculations are not recommended when gestational dating by LMP and ultrasound are within 10 days.Performed By: #### HIV12 #### [facility] [address] [place] [address] Dr. Benoit Samuels Dep DiabetesNoNKettering Health Main CampusComment on above:Performed By: #### HIV12 #### [facility] [address] [place] [address] Dr. Benoit DiggsInterpretationCommentUniversity Hospitals Elyria Medical CenterComment on above: Result Comment: Interpretation: Screen Negative [...] Customer Services to discuss available options. The [place] [employer] recommends amniocentesis be offered to women age 35 and older.Performed By: #### HIV12 #### [facility] [address] [place] [address] Dr. Benoit DiggsMaternajoo Age at EDD[age] yrUniversity Hospitals Elyria Medical CenterComment on above:Performed By: #### HIV12 #### [facility] [address] [address] [address] Benoit Iversoniplmally GestationNoNormalGlenbeigh Hospitalment on above: Performed By: #### HIV12 #### [facility] [address] [address] [address] Benoit DiggsOSBR Risk 1 [id number] [facility] Hospital on above: Performed By: #### HIV12 #### [facility] [address] [address] [address] Benoit DiggsPDF.NormalThe [facility] AndersonComment on above:Performed By: #### HIV12 #### [facility] [address] [address] [address] Benoit MorrisCaucasianNKettering Health Behavioral Medical Center on above: Performed By: #### HIV12 #### [facility] [address] [place] [address] Dr. Benoit DiggsTest Results:NegativeNoTriHealth Bethesda North Hospital on above: Performed By: #### HIV12 #### [facility] [address] [place] [address] Dr. Benoit Ramirez B SURFACE ANTIGEN SCREENon [id number] ScreenNegative NormalNegativeThe [facility] on above:Performed By: #### HIV12 #### [facility] [address] [place] [address] Dr. Benoit SerraTIS C VIRUS AB W/ REFLEX QUANTon [id number] AB<0.1Normal 0.0-0.9The [facility] on above:Performed By: #### HIV12 #### [facility] [address] [place] [address] Dr. Benoit DiggsInterpretation:CommentTriHealth Good Samaritan Hospital on above:Result Comment: Negative Not infected with HCV, unless recent infection is suspected or other evidence exists to indicate HCV infection.Performed By: #### HIV12 #### [facility] [address] [place] [address] Dr. Benoit Metz 1 AND 2 WITH REFLEXon 91-98-3069WEG Screen 4th Generation wRfxNon-ReactiveNormalNon ReactiveThe [facility] on above:Result Comment: HIV Negative HIV-1/HIV-2 antibodies and HIV-1 p24 antigen were NOT detected. There is no laboratory evidence of HIV infection.Performed By: #### HIV12 #### [facility] [address] [place] [address] Dr. Benoit KumarR QUANTon 41-38-1201Oxyfn Plasma Reagin, QuantNon-Reactive NormalNonRea<1:1The [facility] on above:Result Comment: Please Note: This test does not meet current guidelines for screening and diagnosis of syphilis. This test is intended for following treatment response in patients being treated for syphilis infection. To screen for syphilis infection, a reflex cascade that includes both RPR and a treponema-specific assay should be utilized, such as Treponema pallidum (Syphilis) Screening [place] (779707) or Rapid Plasma Reagin (RPR) Test With Reflex to Quantitative RPR and Confirmatory Treponema pallidum Antibodies (593100).Performed By: #### HIV12 #### [facility] [address] [place] [address] Dr. Benoit Figueroa AB IGGon 10-60-7205Tcijuxh Antibodies, IgG3.22 index NormalImmune >0.99The [facility] on above:Result Comment: Non- immune <0.90 Equivocal 0.90 - 0.99 Immune >0.99Performed By: #### CBC #### [facility] [address] [place] [address] Dr. Benoit Hampton PREG <14 WKSon 38-06-7046LK PREG <14 WKSEXAMINATION: US PREG <14 WKS [...] Electronically authenticated by: MYLENE SULLIVAN Date: 2022-06-06 22:25NoThe [facility] AUTO DIFFon [id number] #0.1 103/ulNormal0.0-0.1The [facility] AndersonComment on above:Performed By: #### CBC #### [facility] [address] [address] [address] Benoit DiggsBasophils/100 WBC (Bld)0.6 %Normal0.2-2.0The [facility] Comment on above:Performed By: #### CBC #### [facility] [address] [place] [address] Dr. Benoit Aleman #0.3 103/ulNormal0.0-0.7The [facility] AndersonComment on above: Performed By: #### CBC #### [facility] [address] [place] [address] Dr. Benoit Krausosinophils/100 WBC (Bld)4.1 %Normal0.9-7.0The [facility] Comment on above:Performed By: #### CBC #### [facility] [address] [place] [address] Dr. Benoit Krausrythrocyte distribution width (RBC) [Ratio]13.9 %Letsyr66.0-15.0 The [facility] AndersonComment on above:Performed By: #### CBC #### [facility] [address] [place] [address] Dr. Benoit DiggsHematocrit (Bld) [Volume fraction]36.0 %Vjigac27.0-48.0The [facility] AndersonComment on above:Performed By: #### CBC #### [facility] [address] [place] [address] Dr. Benoit DiggsHemoglobin (Bld) [Mass/Vol]12.0 g/gDEqolra25.0-16.0The [facility] AndersonComment on above:Performed By: #### CBC #### [facility] [address] [place] [address] Dr. Benoit Amado #0.03 10e3/ulNormal0.00-0.03The [facility] AndersonComment on above:Performed By: #### CBC #### [facility] [address] [place] [address] Dr. Benoit Amado %0.4 %Normal0.0-0.5The [facility] AndersonComment on above: Performed By: #### CBC #### [facility] [address] [place] [address] Dr. Benoit PantojaSarah #2.7 103/ulNormal1.2-3.8The [facility] AndersonComment on above:Performed By: #### CBC #### [facility] [address] [place] [address] Dr. Benoit Pantojahocytes/100 WBC (Bld)33.2 %Mufsfx22.5-60.0The [facility] AndersonComtr[facility] on above:Performed By: #### CBC #### [facility] [address] [place] [address] Dr. Benoit FuentesUAL DIFF REQNONormalThe [facility] AndersonComment on above: Performed By: #### CBC #### [facility] [address] [place] [address] Dr. Benoit Lima (RBC) [Entitic mass]29.4 saHlfidj47.7-34.0The [facility] AndersonComment on above:Performed By: #### CBC #### [facility] [address] [place] [address] Dr. Benoit Lima (RBC) [Mass/Vol]33.3 g/dVGivimw09.9-35.2The [facility] AndersonComtrinity health [facility] hospital on above:Performed By: #### CBC #### [facility] [address] [place] [address] Dr. Benoit Lima (RBC) [Entitic vol]88.2 jIPdzkhv22.0-99.0The [facility] AndersonComment on above:Performed By: #### CBC #### [facility] [address] [address] [address] Benoit Castellano #0.5 103/ulNormal0.3-0.8The [facility] AndersonComment on above:Performed By: #### CBC #### [facility] [address] [address] [address] Benoit Funezocytes/100 WBC (Bld)6.6 %Normal1.7-12.0The [facility] Comment on above:Performed By: #### CBC #### [facility] [address] [place] [address] Dr. Benoit Amaya #4.4 103/ulNormal1.4-6.5The [facility] AndersonComment on above:Performed By: #### CBC #### [facility] [address] [place] [address] Dr. Benoit Herrerautrophils/100 WBC (Bld)55.1 %Btojht70.0-75.0The [facility] AndersonComment on above:Performed By: #### CBC #### [facility] [address] [place] [address] Dr. Benoit Pearllet mean volume (Bld) [Entitic vol]11.0 fLNormal9.5-13.5The [facility] AndersonComment on above:Performed By: #### CBC #### [facility] [address] [place] [address] Dr. Benoit DiggsPLT225 103/wfIckazx511-345Bho [facility] AndersonComment on above: Performed By: #### CBC #### [facility] [address] [place] [address] Dr. Benoit DiggsRBC4.08 106/ulCritically low4.20-5.40The [facility] AndersonComment on above:Performed By: #### CBC #### [facility] [address] [place] [address] Dr. Benoit DiggsWBC8.1 103/ulNormal4.0-11.0The [facility] AndersonComment on above: Performed By: #### CBC #### [facility] [address] [address] [address] Benoit DiggsCULTURE URINEon 53-16-8103YSSZZHV URINECulture Observations: MODERATE GROWTH OF MIXED GENITAL RIZWAN. NO POTENTIAL PATHOGENS SEEN.NormalUniversity Hospitals Elyria Medical CenterComment on above:Performed By: #### URCX ####[facility] [address] [address]Dr. Benoit Diggs GLYCOHEMOGLOBIN A1Con 91-92-7631NZP RECOMMENDATIONSEE BELOWNoCincinnati Children's Hospital Medical CenterComment on above:Result Comment: ADA RECOMMENDED LIMIT 4.0 - 6.0 ADA THERAPEUTIC TARGET < 7.0 ACTION SUGGESTED > 7.0Performed By: #### CBC #### [facility] [address] [place] [address] Dr. Benoit DiggsGlucose [Mass/Vol]105 mg/dLUniversity Hospitals Elyria Medical CenterComment on above:Performed By: #### CBC #### [facility] [address] [place] [address] Dr. Benoit DiggsHbA1c (Bld) [Mass fraction]5.3 %Normal4.5-6.2Glenbeigh Hospitalment on above:Performed By: #### CBC #### [facility] [address] [place] [address] Dr. Benoit Flowers BOX TEST PT SEND OUTon [id number] TO REF LAB06/06/2022 NormalThe [facility] on above:Performed By: #### HIV12 #### [facility] [address] [place] [address] Dr. Benoit DiggsTYPE AND SCREENon 25-38-3498BKVG AND SCREENNegativeNoCincinnati Children's Hospital Medical CenterComment on above:Performed By: #### TNS #### [facility] [address] [place] [address] Dr. Benoit DiggsPREDebi QUANT HCGon 71-28-8416TRM SVMXG51669 mIU/mLNormalThe [facility] AndersonComment on above:Performed By: #### CBC #### [facility] [address] [place] [address] Dr. Benoit Flowers [facility] HospitalComment on above: Result Comment: 5-50 0-1 WEEK 40-300 1-2 WEEKS 100-1,000 2-3 WEEKS 500-6,000 3-4 WEEKS 5,000-200,000 1-2 MONTHS 10,000-100,000 2-3 MONTHS 3,000-50,000 2ND TRIMESTER 1,000-50,000 3RD TRIMESTERPerformed By: #### CBC #### [facility] [address] [address] [address] Benoit Diggs Vital Signs Date TimeVital SignValuePerforming FfpdjdrqwGgviahsk72-30-5758 13:55-0400Body mass index (BMI) [Ratio]53.12 kg/j0Ohccy Anita DO Work Phone: [phone] [place], [place] [address]Vyvcqkhnzo74-31-5394 13:55-0400Body hyvpal979.52 kgCorey Anita DO Work Phone: [phone] [place], [place] [address]Urlltmzkky06-94-8188 13:55-0400Diastolic blood yhpdybgm19 mm[Hg]Jefferson Anita DO Work Phone: [phone] [place], [place] [address]Zknzgaazbg14-63-7146 13:55-0400Systolic blood ocwmykug062 mm[Hg]Jefferson Anita DO Work Phone: [phone]-[facility] HospitalKxxtsshrlp47-63-7195 14:07-0400Body mass index (BMI) [Ratio]54 kg/m2Amy Vamsi LYNN Work Phone: [phone]-[facility] HospitalBmlnsreqrp36-63-1248 14:07-0400Body ophvil693.64 kgAmy Vamsi PA Work Phone: [facility] HospitalRoqgugrwqm87-24-8800 14:07-0400Diastolic blood mm[Hg]Gia LYNN Work Phone: [phone]-[facility] HospitalKpsxxpbmhi03-34-3061 14:07-0400Systolic blood mm[Hg]Gia LYNN Work Phone: [phone]-[facility] HospitalMdzhidhilp16-95-6846 13:59-0400Body mass index (BMI) [Ratio]53.17 kg/x7Oezob Anita DO Work Phone: [phone])440-[address] [place], [place] [address]Mvdrbvvqha74-31-6531 13:59-0400Body qzhebe177.64 kgCorey Anita DO Work Phone: 1(685)413-[address] [place] [address]-19-2025 13:59-0400Diastolic blood mm[Hg]Jefferson Anita DO Work Phone: [phone] [place], [place] [address]Gfpobvdekj90-71-7148 13:59-0400Systolic blood cyxmgwty355 mm[Hg]Jefferson Anita DO Work Phone: [phone])911-[address] [place], [place] [address]Speduugaii35-90-1416 14:05-0400Body mass index (BMI) [Ratio]53.51 kg/k0RgbhhHutchings Psychiatric Center07-17-2025 14:05-0400Body weight [address] [address]-17-2025 14:05-0400Diastolic blood qalrsbmr45 mm[Hg][facility]07-17-2025 14:05-0400Systolic blood zovdibyh391 mm[Hg][facility]04-16-2025 10:44-0400Body mass index (BMI) [Ratio] 52.91 kg/m2Bzeuh Anita DO Work Phone: [phone])196-[address] [place], [place] [address]Gspgqyseqy54-21-6053 10:44-0400Body uynuws132.01 kgCorey Anita DO Work Phone: [phone] [place], [place] [address]Uvrmijbqfh20-86-6928 10:44-0400Diastolic blood mm[Hg]Jefferson Anita DO Work Phone: [phone])754-[address] [place] [address]-16-2025 10:44-0400Systolic blood xzaxvrqa814 mm[Hg]Jefferson Anita DO Work Phone: [phone])807-[address] [place], [place] [address]Ghjwvvmoic59-70-4076 13:48-0400Body mass index (BMI) [Ratio]52.93 kg/z5Dfkyq Anita DO Work Phone: [phone])112-[address] [place], [place] [address]Yorgyyrwav50-24-9574 13:48-0400Body mmcija247.06 kgCorey Anita DO Work Phone: [facility] HospitalRtdntswcow16-88-4028 13:48-0400Diastolic blood mm[Hg]Jefferson Anita DO Work Phone: [facility] HospitalTkcjjajcel50-56-2516 13:48-0400Systolic blood pjsbynit015 mm[Hg]Jefferson Anita DO Work Phone: [facility] HospitalDlirkfbiam70-41-2420 10:54-0500Body mass index (BMI) [Ratio]52.93 kg/m2Gia Agustin LEAH Work Phone: [facility] HospitalYelhswuyic04-76-0669 10:54-0500Body girrow805.06 kgGia Schmidmarion LYNN Work Phone: [facility] HospitalZqjwzkieng07-26-8073 10:54-0500Diastolic blood lwkkoypk29 mm[Hg]Gia Schmidmarion LYNN Work Phone: [facility] HospitalJosnwuesnt26-52-4900 10:54-0500Systolic blood pfcusqkf624 mm[Hg]Gia Agustin LEAH Work Phone: [facility] HospitalJyvozgizas79-05-8560 12:56-0500Body mass index (BMI) [Ratio]53.09 kg/q3Znqkt Anita DO Work Phone: [facility] HospitalEfrprobsrm36-04-3820 12:56-0500Body .46 kgCorey Anita DO Work Phone: [facility] HospitalAdvgwpjmgm97-04-5911 12:56-0500Diastolic blood gflnnkiq91 mm[Hg]Jefferson Anita DO Work Phone: [facility] HospitalKpbcytxxcx76-33-4797 12:56-0500Systolic blood qhiqhkdc239 mm[Hg]Jefferson Anita DO Work Phone: [facility] HospitalPdgqbdiaob41-57-5273 08:42-0500Body mass index (BMI) [Ratio]53.55 kg/z1Zaiki Anita DO Work Phone: [facility] HospitalOerauqtyda96-16-7678 08:42-0500Body hiqwbz856.55 kgCorey Anita DO Work Phone: [facility] HospitalPywlahdihq11-41-1818 14:06-0500Diastolic blood vtcxvwug80 mm[Hg]Manuel Noel MD Work Phone: [phone]11-19-2024 14:06-0500 Heart rate77 /minManuel Noel MD Work Phone: [phone])[address] [place], [place] 00[address]11-19-2024 14:06-0500 Respiratory rate18 /minManuel Noel MD Work Phone: [phone])[address] [place], [place] 0090611-19-2024 14:06-0500 SaO2% (BldA) [Mass fraction]98 %Manuel Noel MD Work Phone: [phone])[address] [place], [place] [address]11-19-2024 14:06-0500 Systolic blood sgocxdtu799 mm[Hg]Manuel Noel MD Work Phone: [phone])[address] [place], [place] 0090611-19-2024 12:39-0500 Body ycrpmj668.94 cmManuel Noel MD Work Phone: 1([phone])[address] [place], [place] 0090611-19-2024 12:39-0500 Body bqumnx607 kgManuel Noel MD Work Phone: 1(286)[address] [place], [place] 0090611-05-2024 09:31-0500 Body ixgnca353.94 cmManuel Noel MD Work Phone: [phone])[address] [place], [place] 0090611-05-2024 09:31-0500 Body mass index (BMI) [Ratio]53.4 kg/m2Manuel Noel MD Work Phone: 1([phone])[address]11-05-2024 09:31-0500 Body hmedcq598.16 kgManuel Noel MD Work Phone: [phone])[address] [place], [place] 0090609-28-2022 02:06-0400 Body .6992 kgDR MISCTTriHealth Bethesda Butler HospitalComment on above: Performed By: #### HIV12 #### [facility] [address] [address] [address] Benoit Diggs Encounters Encounter DateEncounter TypeCare ProviderFacilityStart: 08-23-2025 End: 72-02-4613cundamctkdNAAFMZDBMercy Health Perrysburg Hospitaltart: 08-23-2025 End: 56-22-9751Odqccdpxw department patient visitMARHarrison Community Hospitaltart: 08-10-2025 End: 32-84-3159ezuuakjuzpWMKXW FAZIONot AvailableStart: 08-02-2025 End: 77-32-9485Cdaouj flowsheetCorey Anita DO Work Phone: [facility] OBGYNStart: 08-02-2025 End: 38-95-5325Pguimo flowsheetCorey Anita DO Work Phone: [facility] OBGYNStart: 08-02-2025 End: 29-99-4715Vzfaft outpatient visit 15 minutesCorey Anita DO Work Phone: [facility] Emma OBGYNComment on above:Second trimester ([facility]); 19 weeks gestation of ([facility]); Screening, , for anatomic survey ([facility]); LGSIL of cervix of undetermined significanceStart: 08-02-2025 End: 17-06-4839wfkrgrfnuyDDXKM FAZIONot AvailableStart: 07-25-2025 End: 80-04-8421Rtazprlzf Result EncounterGia LYNN Work Phone: [facility] External Department UnsolicitedStart: 07-25-2025 End: 64-23-6403Vnnapdost Result EncounterGia LYNN Work Phone: noMS External Department UnsolicitedStart: 07-05-2025 End: 66-09-4595Mvxoda Epi LYNN Work Phone: [facility] OBGYNStart: 07-05-2025 End: 86-27-6030Lrujne Epi LYNN Work Phone: [facility] [place] OBGYNStart: 07-05-2025 End: 58-21-2016Fscbhzbj Result EncounterGia LYNN Work Phone: noms External Department UnsolicitedStart: 07-05-2025 End: 80-46-4448Hpmnma outpatient visit 15 minutesAmy Vamsi LYNN Work Phone: [facility] Emma OBGYNComment on above:15 weeks gestation of ([facility]); Second trimester ([facility]); Exposure to STD; Vaginal discharge; NauseaStart: 07-05-2025 End: 39-47-1776jkqxyfxvqrVQA Chrystal AvailableStart: 06-07-2025 End: 00-56-8350Xqskxw flowsheetCorey Anita DO Work Phone: NOKB [place] OBGYNStart: 06-07-2025 End: 41-16-6782Kllsoj flowsheetCorey Anita DO Work Phone: [facility] Emma OBGYNStart: 06-07-2025 End: 99-61-6360Bqghkgorn Result EncounterCorey Anita DO Work Phone: noms External Department UnsolicitedStart: 06-07-2025 End: 77-40-9617Dvcart outpatient visit 15 minutesCorey Anita DO Work Phone: [facility] Emma OBGYNComment on above:First trimester ([facility]); 11 weeks gestation of ([facility]); Right ovarian cyst; Nausea; PCOS (polycystic ovarian syndrome)Start: 06-07-2025 End: 38-02-6632vicjfipbugPSVAY FAZIONot AvailableStart: 05-24-2025 End: 69-51-7471Gjfkmufml Result EncounterCorey Anita DO Work Phone: noms External Department UnsolicitedStart: 05-24-2025 End: 45-74-0525Blyyesugn Result EncounterCorey Anita DO Work Phone: noms External Department UnsolicitedStart: 05-05-2025 End: 28-32-0063Wujehe outpatient visit 5 minutesFazio Nurse [facility] Bcp ObNOMS BCP OBComment on above:GA: 9n3aUywre: 05-05-2025 End: 52-80-2345tsxcfsvllhIHYEH FAZIONot AvailableStart: 04-14-2025 End: 26-84-7287Gpskxlctu department patient visitMarietta Memorial Hospitaltart: 02-09-2025 End: 73-29-7374Yfmpqvsri Result EncounterGeneric External Data ProviderNOMS External Department UnsolicitedStart: 02-09-2025 End: 12-76-6128Cboqkfyht Result EncounterGeneric External Data ProviderNOMS External Department UnsolicitedStart: 02-02-2025 End: 99-54-7591Ukuwjv flowsheetCorey Anita DO Work Phone: [facility] BCP OBStart: 02-02-2025 End: 34-06-7834Zekglt flowsheetCorey Anita DO Work Phone: [facility] BCP OBStart: 02-02-2025 End: 93-12-8259Tlmxpk outpatient visit 15 minutesCorey Anita DO Work Phone: [facility] BCP OBComment on above:Encounter to discuss test results; Elevated TSHStart: 02-02-2025 End: 18-85-6664unskretjaxPGLLO FAZIONot AvailableStart: 01-17-2025 End: 63-53-7725Nvbjyhv encounter procedureCorey Anita DO Work Phone: [facility] BCP OBComment on above:LGSIL of cervix of undetermined significanceStart: 01-17-2025 End: 77-95-0175nninrthymgUsed Naderer MD Work Phone: [facility] Work Phone: Start: 01-17-2025 End: 59-44-0209Qjblsunt ReferredManuel Noel MD Work Phone: [facility]-LAB Path Spec [facility] HospStart: 01-12-2025 End: 85-89-7153jowunoilixFODUN FAZIONot AvailableStart: 01-03-2025 End: 69-96-6200soijftvknzQcao Naderer MD Work Phone: [facility] Work Phone: Start: 01-03-2025 End: 88-29-9124Fqfhjdby ReferredManuel Noel MD Work Phone: [facility]-LAB Path Spec Emma HospStart: 12-22-2024 End: 63-36-0770Rqzipo flowsEduardo LYNN Work Phone: noms BCP OBStart: 12-22-2024 End: 07-05-1938Fnnsro Epi LYNN Work Phone: noms BCP OBStart: 12-22-2024 End: 04-74-6794Legpqkzed Result EncounterGeneric External Data ProviderNOMS External Department UnsolicitedStart: 12-22-2024 End: 33-22-4666Ihwlojh encounter procedureGia LYNN Work Phone: [facility] HealthcareStart: 12-22-2024 End: 90-98-0249Hbxzuyiv preventive med est patient 18-39 yrsGia LYNN Work Phone: NOKE BCP OBComment on above: control counseling (Primary Dx); Well woman exam with routine gynecological exam; Pelvic pain in femaleStart: 12-22-2024 End: 93-66-3128yrkcvhxdccBVR RAMEYNot AvailableStart: 12-02-2024 End: 20-11-4248Crwaqhs encounter procedureCorey Anita DO Work Phone: [facility] BCP OBComment on above:Encounter for removal of etonogestrel implantStart: 12-02-2024 End: 09-66-5711cykuamjlcfCIDYJ FAZIONot AvailableStart: 11-30-2024 End: 16-00-9444wjxdjcpznjHMCQK FAZIONot AvailableStart: 11-11-2024 End: 00-70-3895Ecmxih flowsheetCorey Anita DO Work Phone: noms BCP OBStart: 11-11-2024 End: 86-85-3669Zqgigi flowsheetCorey Anita DO Work Phone: noms BCP OBStart: 11-11-2024 End: 15-90-5296Sokilzkdq Result EncounterGeneric External Data ProviderNOMS External Department UnsolicitedStart: 11-11-2024 End: 90-85-2407Pgnkqb outpatient visit 15 minutesCorey Anita DO Work Phone: noms [facility] OBComment on above:Right ovarian cyst; Nausea; PCOS (polycystic ovarian syndrome)Start: 11-11-2024 End: 73-81-2748eogpusxzgoIPEMZ FAZIONot AvailableStart: 87-60-3381Toe-patient / Non-visitMarc Bert MATSON Work Phone: [facility] Work Phone: Start: 09-07-2024 End: 99-16-7176Ofvsdkwdn to same day surgery centerManuel Noel MD Work Phone: [facility] Work Phone: Start: 09-07-2024 End: 03-91-7911fcfvjyfthmByry Naderer MD Work Phone: [facility] Work Phone: Start: 08-28-2024 End: 18-15-4548Ueuijwhnt department patient visitMARHarrison Community Hospitaltart: 08-24-2024 End: 42-68-0675Yenyhmm encounter procedureManuel Noel MD Work Phone: [facility] Work Phone: Start: 07-01-2024 End: 05-17-1141Gjytvjswb Result EncounterGeneric External Data ProviderNOMS External Department UnsolicitedStart: 07-01-2024 End: 68-75-9285Sqyyatcdo Result EncounterGeneric External Data ProviderNONC External Department UnsolicitedStart: 09-02-6582Gyz-patient / Non-visitMarallison Noel MD Work Phone: [facility] Work Phone: Start: 06-03-2024 End: 21-72-1678Ithncsotu Result EncounterMarallison Noel MD Work Phone: [facility] External Department UnsolicitedStart: 06-03-2024 End: 65-04-6797Cdgjzaufr Result EncounterMarallison Noel MD Work Phone: noNC External Department UnsolicitedStart: 03-02-2024 Patient encounter procedureGeneric ProviderNONC HealthcareStart: 12-23-2022 Encounter for general adult medical examination without abnormal findingsDR MANUEL DEGROOTMercy Memorial Hospitaltart: 12-21-2022 End: 88-63-3742jvocaousxmDS MANUEL A NADERERFacility:U0Geiwa: 12-21-2022 End: 90-80-8308Fkfeyggkr for general adult medical examination without abnormal findingsDR MANUEL A NADERERFacility:A3Zhkmi: 12-01-2022 End: 32-61-6909Adjpheylij and management of inpatientDR MANUEL NOEL Facility:K5Qxolj: 11-29-2022 End: 94-53-7837bblozabnnkYY MANUEL A NADERERFacility:N8Mkhkx: 46-39-7155Ddijaqkacf and management of inpatientDR MALIK GABRIEL .Facility:B0Ihjhm: 11-18-2022 End: 45-16-2124sijpqzcyebKO MANUEL A NADERERFacility:G1Tqikw: 09-22-2022 End: 85-00-7591rarhvbfbsiKRONA PARKERFacility:W5Dwoxl: 09-09-2022 End: 89-36-2518hvqqsbtfjxAO MANUEL A NADERERFacility:L3Ozdmk: 08-07-2022 End: 46-79-9371thcpnxxmwaFD MANUEL A NADERERFacility:P9Jwjeg: 08-06-2022 End: 05-07-3879ezepsvlocpHA MANUEL A NADERERFacility:X5Eobkk: 07-25-2022 End: 53-54-0098izxhnwykesJL JEFFERSON HOWARD .Facility:H6Omolh: 07-13-2022 End: 21-91-1544ueticdkglcSO DESHAWN MARKS .Facility:Q9Rzgzi: 07-11-2022 End: 61-18-0738aeephdgawhLC MANUEL Souza NADERERFacility:M0Yztly: 06-06-2022 End: 32-99-1812swpdbukreyZF MANUEL Harley NADERERFacility:E1Hbiyo: 04-16-2022 End: 01-48-4776ipmkgwbjxmCG DOCTOR MISCFacility:H1 Procedures DateProcedureProcedure DetailPerforming ClinicianStart: 70-41-3169FJD, SERUM, OPEN SPINA BIFIDAAmy Vamsi LYNN Work Phone: Start: 63-11-6824Xvaiw dip stick/tablet rgnt non-auto w/o micrscpAmy Vamsi LYNN Work Phone: Start: 73-24-1381IODYPTAAX VAGINITIS (HTRX)Gia LYNN Work Phone: Start: 11-35-9382WVW THYROID STIM HORMONECorey Anita DO Work Phone: Start: 36-89-0778FGG TESTCorey Anita DO Work Phone: Start: 05-05-2025 End: 24-29-8351Tfxhu dip stick/tablet rgnt non-auto w/o micrscpCorey Anita DO Work Phone: Start: 79-99-0333FTB THYROID STIM HORMONECorey Anita DO Work Phone: Start: 68-37-1371Krzqo dip stick/tablet rgnt non-auto w/o micrscpCorey Anita DO Work Phone: Start: 59-61-5916Ddirc [facility] for Womenallison Noel MD Work Phone: Start: 86-13-7062LGK,APTIMA HPV,AGE GDLNAmy Vamsi LYNN Work Phone: Start: 07-92-9495FXB INSERTION/REMOVAL OF CONTRACEPTIVE CAPSULECorey Anita DO Work Phone: Start: 98-11-7569ZIR CBC WITH AUTO DIFFCorey Anita DO Work Phone: Start: 95-05-3547AgfrjrbcaebnwdvmbtlbxmkwrwVvxr Bert MATSON Work Phone: Start: 09-80-2730LNMN TRICHOMONAS/WET PREPGeneric External Data ProviderStart: 70-45-4786YF LUMBAR SPINE 2 OR 3VMarc Bert MATSON Work Phone: Start: 96-53-3501Nepmlrpkcui of Nonautologous Red Blood Cells into Peripheral Vein, Percutaneous ApproachDR DOCTOR MISCStart: 30-32-5041Bgrqzxka of Products of Conception, External ApproachDR DOCTOR MISC Start: 80-23-3015Acdneulo of Amniotic Fluid, Therapeutic from Products of Conception, Via Natural or Artificial OpeningDR DOCTOR MISC Plan of Treatment DateCare ActivityDetailAuthorStart: 08-31-2025 End: 46-08-7125Wukwnnx encounter qshyutvpb73/12/2025 1:40 PM EST Routine NOMMaribell WORLEY [address] [place], [id number] Jefferson Howard, DO [address] [place] [address] NOMS Emma OBGYNStart: 08-10-2025 End: 08-77-6374Fnckhpvlcrxw / ancillary services unkfahvsha38/22/2025 11:00 AM EDT Ancillary Procedure CESAR WORLEY [address] [place] [id number] NOMS Emma OBGYNStart: 08-02-2025 End: 89-52-4162RR for pregnancyUS OB 14+ weeks anatomy scan Imaging Routine Screening, , for anatomic survey ([facility]) Expected: 08/02/2025, Expires: 11/02/2025NON[facility] Healthcare Work Phone: Vomment on above:Expected: 08/02/2025, Expires: 11/02/2025Start: 08-02-2025 End: 57-70-9186Pjzmkyj encounter procedureNOMS BCP OBStart: 07-05-2025 End: 76-83-0704Tzotq fetoprotein, maternalAlpha fetoprotein, maternal Lab Routine 15 weeks gestation of ([facility]) Second trimester ([facility]) Expected: 07/05/2025 (Approximate), Expires: 08/04/2025[facility] Comment on above:Expected: 07/05/2025 (Approximate), Expires: 08/04/2025Start: 07-05-2025 End: 12-13-9867Tdkdbba encounter procedureNOMS Delmita OBGYNComment on above: ArrivedStart: 98-52-1081YBLWF-19 Vaccine ( season)COVID-19 Vaccine ( season)NOMS HealthcareStart: 20-06-9952Viufcotfc vaccinationNOMS HealthcareStart: 06-07-2025 End: 07-14-0598Bbwwcvm encounter procedureNOMS BCP OBComment on above:Arrived Start: 05-05-2025 End: 13-17-1240BVS/RhABO/Rh Lab Routine Missed menses , unspecified gestational age ([facility]) Expected: 05/05/2025 (Approximate), Expires: 05/05/2026NONC HealthcareComment on above:Expected: 05/05/2025 (Approximate), Expires: 05/05/2026Start: 05-05-2025 End: 50-50-5980Mgwfd type and Indirect antibody screen panel - BloodType and screen Lab Routine Missed menses , unspecified gestational age ([facility]) Expected: 05/05/2025 (Approximate), Expires: 05/05/2026[facility] Healthcare Work Phone: Zomment on above:Expected: 05/05/2025 (Approximate), Expires: 05/05/2026Start: 05-05-2025 End: 05-70-5710Esndw of abuse panel - Urine by Screen methodRapid drug screen, urine Lab Routine , unspecified gestational age ([facility]) Encounter for supervision of normal first in first trimester ([facility]) Expected: 05/05/2025 (Approximate), Expires: 05/05/2026NONC HealthcareComment on above: Expected: 05/05/2025 (Approximate), Expires: 05/05/2026Start: 05-05-2025 End: 61-25-1164Lmljvbjrxzq [Units/volume] in Serum or PlasmaTSH Lab Routine Thyroid disease Expected: 05/05/2025 (Approximate), Expires: 05/05/2026NONC HealthcareComment on above:Expected: 05/05/2025 (Approximate), Expires: 05/05/2026Start: 02-02-2025 End: 49-64-3602Lphbtdk encounter procedureNOMS [facility] OBComment on above:Arrived Start: 01-17-2025 End: 32-37-2479UluxowrjdxPmkzkbnteb Procedures Routine LGSIL of cervix of undetermined significance Expected: 01/17/2025 (Approximate), Expires: 01/17/2026[facility] Work Phone: comment on above:Expected: 01/17/2025 (Approximate), Expires: 01/17/2026Start: 01-12-2025 End: 67-17-1450Pxefwadaathc / ancillary services wsoegkxopk68/26/2025 1:00 PM EDT Ancillary Procedure NOMS BCP OB [address] [place] [address] [place] [address] NOMS BCP OBStart: 80-60-9064Jkgkvnet identified in Urine by CultureUrine [facility] Hospitaltart: 18-43-1833Ykhan [facility] Centertart: 12-22-2024 End: 76-24-3201KJ PelvisUS Pelvis w/ TV Imaging Routine Pelvic pain in female Expected: 12/22/2024, Expires: 12/22/2025NONC HealthcareComment on above: Expected: 12/22/2024, Expires: 12/22/2025Start: 12-22-2024 End: 39-10-8940Ypautkz encounter procedureNOMS [facility] OBComment on above:Arrived Start: 12-02-2024 End: 99-05-3116Qcrjgmq encounter scgoppmnh25/13/2025 9:30 AM EST Procedure Visit NOMS [facility] OB [address] [facility] [place] [phone] Jefferson Howard, DO [address] [place] [address] NOMS BCP OBStart: 11-30-2024 End: 23-55-4104Wxutwenlicmn / ancillary services llqorsbqli65/11/2025 2:00 PM EST Ancillary Procedure [facility] OB [address] [place] [phone] NOMS BCP OBStart: 11-11-2024 End: 96-64-5334UVDKMGRE Lab Routine Right ovarian cyst PCOS (polycystic ovarian syndrome) Expected: 11/11/2024 (Approximate), Expires: 11/11/2025[facility] Comment on above:Expected: 11/11/2024 (Approximate), Expires: 11/11/2025Start: 11-11-2024 End: 28-83-0582QU PelvisUS Pelvis w/ TV Imaging Routine Right ovarian cyst PCOS (polycystic ovarian syndrome) Expected: 11/11/2024, Expires: 11/11/2025NONC HealthcareComment on above:Expected: 11/11/2024, Expires: 11/11/2025Start: 11-11-2024 End: 71-28-9491Kvfarva encounter jzgjmqlce03/23/2025 8:40 AM EST Office Visit N[facility] OB [address] [facility] [place] [address] Jefferson Howard, DO [address] [place] [address] ArrivedNOPOMERADO [facility] OBComment on above:ArrivedStart: 11-93-5384ClvdaqrpwRiverside Methodist Hospitaltart: 51-90-4409Luuifsrwe vaccinationInfluenza Vaccine (#1)NOMS HealthcareStart: 48-45-7039Mmtoovjwb B Vaccines (1 of 3 - 19+ 3-dose series)Hepatitis B Vaccines (1 of 3 - 19+ 3-dose series)NOMS HealthcareStart: 44-18-5349Pkksvdusarxv Vaccine: Pediatrics (0 to 5 Years) and At-Risk Patients (6 to 64 Years) (1 of 2 - PCV)Pneumococcal Vaccine: Pediatrics (0 to 5 Years) and At-Risk Patients (6 to 64 Years) (1 of 2 - PCV) NOMS HealthcareStart: 61-81-9462PQB Vaccines (1 - 3-dose series)HPV Vaccines (1 - 3-dose series)NOMS HealthcareStart: 94-15-9432Kyzuzek of varicella vaccination Varicella Vaccines (1 of 2 - 13+ 2-dose series)NOM HealthcareStart: 2007 DTaP/Tdap/Td Vaccines (1 - Tdap)DTaP/Tdap/Td Vaccines (1 - Tdap)[facility] Start: 26-51-4524GTH Vaccines (1 of 1 - Standard series)MMR Vaccines (1 of 1 - Standard series)NOM HealthcareBacteria identified in Urine by CultureUrine culture Microbiology Routine Missed menses Ordered: 05/05/2025[facility] Comment on above:Ordered: 05/05/2025BC W Auto Differential panel - BloodCBC and differential Lab Routine Right ovarian cyst PCOS (polycystic ovarian syndrome) Ordered: 11/11/2024[facility] HealthcareComment on above:Ordered: 11/11/2024BC W Auto Differential panel - BloodCBC and differential Lab Routine Missed menses , unspecified gestational age ([facility]) Ordered: 05/05/2025[facility] HealthcareComment on above:Ordered: 05/05/2025HLAMYDIA TRACHOMATIS (GENITO/STI) CHLAMYDIA TRACHOMATIS (GENITO/STI) Lab Routine Exposure to STD Ordered: 07/05/2025[facility] HealthcareComment on above:Ordered: 07/05/2025ytology Cervical or vaginal smear or scraping studyPap Smear Pathology and Cytology Routine Well woman exam with routine gynecological exam Ordered: 12/22/2024[facility] Work Phone: comment on above:Ordered: 12/22/2024ytology Cervical or vaginal smear or scraping studyPap Smear Pathology and Cytology Routine LGSIL of cervix of undetermined significance Ordered: 08/02/2025[facility] Healthcare Comment on above:Ordered: 08/02/20250167QXDM-xsmvonoGBIP-ucjcsyp Lab Routine Right ovarian cyst PCOS (polycystic ovarian syndrome) Ordered: 11/11/2024[facility] HealthcareComment on above:Ordered: 11/11/2024Follicle stimulating hormone Follicle stimulating hormone Lab Routine Right ovarian cyst PCOS (polycystic ovarian syndrome) Ordered: 11/11/2024[facility] HealthcareComment on above:Ordered: 11/11/2024hCG, quantitative, pregnancyhCG, quantitative, Lab Routine Right ovarian cyst PCOS (polycystic ovarian syndrome) Ordered: 11/11/2024[facility] Healthcare Work Phone: comment on above:Ordered: 11/11/2024Hemoglobin A1c/Hemoglobin.total in BloodHemoglobin A1c Lab Routine Right ovarian cyst PCOS (polycystic ovarian syndrome) Ordered: 11/11/2024[facility] HealthcareComment on above:Ordered: 11/11/2024Hemoglobin A1c/Hemoglobin.total in BloodHemoglobin A1c Lab Routine Missed menses , unspecified gestational age ([facility]) Ordered: 05/05/2025[facility] HealthcareComment on above:Ordered: 05/05/2025Hepatitis B virus surface Ag [Presence] in Serum or Plasma by ImmunoassayHepatitis B surface antigen Lab Routine Missed menses , unspecified gestational age ([facility]) Ordered: 05/05/2025[facility] HealthcareComment on above:Ordered: 05/05/2025Hepatitis C virus Ab [Presence] in Serum or Plasma by Immunoassay Hepatitis C antibody Lab Routine Missed menses , unspecified gestational age ([facility]) Ordered: 05/05/2025[facility] HealthcareComment on above: Ordered: 05/05/2025HIV-1/HIV-2 antigen/antibody combination immunoassayHIV-1 and HIV-2 antibodies Lab Routine Missed menses , unspecified gestational age ([facility]) Ordered: 05/05/2025[facility] HealthcareComment on above:Ordered: 05/05/2025Luteinizing hormoneLuteinizing hormone Lab Routine Right ovarian cyst PCOS (polycystic ovarian syndrome) Ordered: 11/11/2024[facility] HealthcareComment on above:Ordered: 11/11/2024Neisseria gonorrhoeae DNA [Presence] in Unspecified specimen by RANDOLPH with probe detectionNeisseria gonorrhea DNA probe, direct Lab Routine Exposure to STD Ordered: 07/05/2025[facility] HealthcareComment on above: Ordered: 07/05/2025Patient EducationEsophagitis Know your [facility] Work Phone: ProlactinProlactin Lab Routine Right ovarian cyst PCOS (polycystic ovarian syndrome) Ordered: 11/11/2024[facility] HealthcareComment on above:Ordered: 11/11/2024Reagin Ab [Presence] in Serum by RPRRPR Lab Routine Missed menses , unspecified gestational age ([facility]) Ordered: 05/05/2025[facility] HealthcareComment on above:Ordered: 05/05/2025Removal non- biodegradable drug delivery implantRemove drug implant device Procedures Routine Encounter for removal of etonogestrel implant Ordered: 12/02/2024[facility] Work Phone: comment on above:Ordered: 12/02/2024Rubella antibody, IgGRubella antibody, IgG Lab Routine Missed menses , unspecified gestational age ([facility]) Ordered: 05/05/2025[facility] HealthcareComment on above: Ordered: 05/05/2025SURESWAB(R) ADVANCED VAGINITIS PLUS, TMASURESWAB(R) ADVANCED VAGINITIS PLUS, TMA Pathology and Cytology Routine Vaginal discharge Ordered: 0 07/05/2025[facility] Work Phone: comment on above:Ordered: 07/05/2025Thyrotropin [Units/volume] in Serum or PlasmaTSH Lab Routine Right ovarian cyst PCOS (polycystic ovarian syndrome) Ordered: 11/11/2024[facility] HealthcareComment on above:Ordered: 11/11/2024Thyrotropin [Units/volume] in Serum or PlasmaTSH Lab Routine Elevated TSH Ordered: 02/02/2025[facility] Healthcare Work Phone: comment on above:Ordered: 02/02/2025Thyroxine (T4) free [Mass/volume] in Serum or PlasmaT4, free Lab Routine Right ovarian cyst PCOS (polycystic ovarian syndrome) Ordered: 11/11/2024[facility] HealthcareComment on above:Ordered: 11/11/2024Thyroxine (T4) free [Mass/volume] in Serum or PlasmaT4, free Lab Routine Elevated TSH Ordered: 02/02/2025[facility] HealthcareComment on above:Ordered: 02/02/2025 Payers DatePayer CategoryPayerPoly [id number] [id number] 2021Medicaid (Managed Care) [id number] 2.16.840.1.228343.3.57[id number] 2.16.840.1.676510.3.57[id number] 2.16.840.1.226954.3.57[id number] 2.16.840.1.787933.3.57[id number] 2.16.840.1.978013.3.579.2.49520-90-3960Jlsrgae4413160 2.16.840.1.777588.3.579.[id number] 2.16.840.1.377729.3.579.2.48755-12-8467Rywgdcu8776903 2.16.840.1.583168.3.579.2.92124-75-0498Sqyoblp7219091 2.16.840.1.380823.3.579.2.75443-58-7464Idbzzkv7282394 2.16.840.1.852020.3.579.2.42636-98-1420Pmdfpby5554473 2.16840.1.946742.3.579.2.44544-59-8204Fzbiijw9956794 2.16.840.1.907881.3.579.2.19851-63-9606Ptrczjx3436290 2.840.1.983761.3.579.2.97061-02-8303Fhdszmk5859710 2.840.1.940757.3.579.2.58421-36-8318Idzvcdv57176124 2.840.1.971194.3.579.2.434733-52-0531Eyzxgjy47477864 2.840.1.263346.3.579.2.712348-13-8113Tdxnpwy76773766 2.840.1.490181.3.579.2.140231-97-7902Jpngicr25437043 2.840.1.714177.3.579.2.641419-68-0248Uhbwuqr53606924 2.840.1.814295.3.579.2.413902-35-1609Ptetxci56549935 2.840.1.751925.3.579.2.749425-07-1697Gvpxswo3216106 2.840.1.593576.3.579.2.662869-79-3965Wnavyru2040830 2.840.1.025340.3.579.2.066630-95-3479Vaawxnd9443011 2.840.1.955339.3.579.2.319866-26-4722Aoujzzq1778298 2.840.1.624506.3.579.2.571439-72-8024Gvuihir8749949 2.840.1.380075.3.579.2.273405-15-4899Ivcacih7099241 2.16.840.1.150905.3.579.2.301966-61-6901Ibrsouo8342199 2.16.840.1.736346.3.579.2.318708-73-0803Xdiovgy320273631 2.16.840.1.558519.3.579.2.963193-82-8982Ptsfobg249973017 2.16.840.1.819141.3.579.2.315840-54-3009Jgjqsen852108718 2.16.840.1.793644.3.579.2.397800-11-3567Zixbhik79036038 2.16.840.1.146694.3.579.2.616466-46-8494Usfd-wue05-10-0958Wflqboz718148735669 Ofpqevh5662786 2.16.840.1.769952.3.579.2.976Tzpizlv66317813 2.16.840.1.561682.3.579.2.474Wtdrgob40385745 2.16.840.1.414574.3.579.2.531 Lllqxrb26789947 2.16.840.1.260450.3.579.2.531 Social History DateTypeDetailFacilityStart: 03-02-2024 End: 52-89-3303Lpodgst smoking status NHISNever smoked tobacco (finding) [facility]: 11-40-5143PdyXlyhttn sex unknown (finding)[facility]tart: 93-09-6142Ecm Assigned At FemaleRiverside Methodist Hospitaltart: 94-64-9493Gqrcbzn use and exposure Smokeless tobacco non-userNOMS HealthcareStart: 03-02-2024 End: 82-20-1402Kholpvy of Social functionNOMS HealthcareStart: 03-02-2024 End: 31-03-6887Mfzdfl connection and isolation panelNOMS HealthcareStart: 40-64-1948Mxlwte Member of Clubs or OrganizationsNot on fileINTERMOUNTAIN [facility]ARE HealthcareHow often to you have a drink containing alcohol?2-4 times a monthNONC HealthcareHow many standard drinks containing alcohol do you have on a typical day?1 or 2NOMS HealthcareHow often do you have 6 or more drinks on 1 occasion?NeverNOMS HealthcareIn the past 12 months, was there a time when you were not able to pay the mortgage or rent on time?NoNOMS HealthcareStart: 73-39-4053Qmg assigned at birthNot on fileINTERMOUNTAIN HEALTHCARE HealthcareStart: 01-04-2025 End: 61-43-7563FulWdbfwj (finding)[facility] Hospitaltart: 83-82-1711PetxlztidGAPI Healthcare Medical Equipment Procedure CodeEquipment CodeEquipment Original TextEquipment IdentifierDatesERCP (endoscopic retrograde cholangiopancreatography)STENT PANCREATIC ZIMMON 4FRFDA Start: 14-10-7890WYMC (endoscopic retrograde cholangiopancreatography)STENT PANCREATIC ZIMMON 4FRFDAStart: 77-33-5755MFMK (endoscopic retrograde cholangiopancreatography)STENT PANCREATIC ZIMMON 4FRFDAStart: 11-20-2017 Goals DatePatient GoalDesired Activity/State Clinical Notes 08-24-2024 to 08-02-2025 Note Date & QeziSewsSousyjsz58-48-4491 History of Present illness Narrative* Shelley Dang, ALGEBRAIST - 08/02/2025 1:40 PM EDT Reason for [...] 03/02/2024 Morbid obesity due to excess calories ([facility]) 03/02/2024 Annual physical exam 03/02/2024 Amenorrhea 04/28/2024 [...] nursing note reviewed. Exam conducted with a fruit express agent present. Vitals: Estimated body mass index is 53.12 kg/m as calculated from the following: Height as of 24: 5' 1 . Weight as of this encounter: 281 lb 1.9 oz. BP: 102/62 Patient's last menstrual period was 03/08/2025. ASSESSMENT & PLAN ICD-10-CM 1. Second trimester ([facility]) Z34.92 2. 19 weeks gestation of ([facility]) Z3A.19 CANCELED: POCT urinalysis dipstick manually resulted 3. Screening, , for anatomic survey ([facility]) Z36.89 OB 14+ weeks anatomy scan [...] Procedure Laterality Date GALLBLADDER documented in this encounterGeneral Leonard Wood Army Community HospitalTvvcgavhuj31-92-4767 History of Present illness Narrative* LEAH Curran - 07/05/2025 2:00 PM EDT Reason [...] esophagitis 03/02/2024 Mild intermittent asthma without complication ([facility]) 03/02/2024 Allergic rhinitis due to pollen 03/02/2024 Morbid obesity due to excess calories ([facility]) 03/02/2024 Annual physical exam 03/02/2024 Amenorrhea 04/28/2024 [...] nursing note reviewed. Exam conducted with a fruit express agent present. Vitals: Estimated body mass index is 54 kg/m as calculated from the following: Height as of 06/01/24: 5' 1 . Weight as of this encounter: 285 lb 12.8 oz. BP: 120/80 Patient's last menstrual period was 03/08/2025. ASSESSMENT & PLAN ICD-10-CM 1. 15 weeks gestation of ([facility]) Z3A.15 POCT urinalysis dipstick manually resulted Alpha fetoprotein, maternal Alpha fetoprotein, maternal 2. Second trimester ([facility]) Z34.92 POCT urinalysis dipstick manually resulted Alpha [...] obtained without difficulty and [facility]. Patient continues with [...] behalf of: LEAH Curran documented in this encounterGeneral Leonard Wood Army Community HospitalWoumyfczul66-41-2432 History of Present illness Narrative* Shelley Dang [...] esophagitis 03/02/2024 Mild intermittent asthma without complication ([facility]) 03/02/2024 Allergic rhinitis due to pollen 03/02/2024 Morbid obesity due to excess calories ([facility]) 03/02/2024 Annual physical exam 03/02/2024 Amenorrhea 04/28/2024 [...] nursing note reviewed. Exam conducted with a fruit express agent present. Vitals: Estimated body mass index is 53.17 kg/m as calculated from the following: Height as of 06/01/24: 5' 1 . Weight as of this encounter: 281 lb 6.4 oz. BP: 108/68 Patient's last menstrual period was 03/08/2025. ASSESSMENT & PLAN ICD-10-CM 1. First trimester ([facility]) Z34.91 2. 11 weeks gestation of ([facility]) Z3A.11 3. Right ovarian cyst N83.201 ondansetron [...] of: Jefferson Howard DO documented in this encounterGeneral Leonard Wood Army Community HospitalIxhxuvlvmx95-73-8865 History of Present illness Narrative* Gayatri Correa [...] 03/02/2024 Morbid obesity due to excess calories ([facility]) 03/02/2024 Annual physical exam 03/02/2024 Amenorrhea [...] dipstick manually resulted , unspecified gestational age ([facility]) - Type and screen; Future - ABO/Rh; Future - CBC and differential - Hemoglobin A1c - RPR - Rubella antibody, IgG - Hepatitis B surface antigen - Hepatitis C antibody - HIV-1 and HIV-2 antibodies - Rapid drug screen, urine; Future Encounter for supervision of normal first in first trimester ([facility]) - Rapid drug screen, urine; Future Right [...] and all questions and concerns were answered. Silt and Thyroid given to patient to have [...] by: Gayatri Correa LPN documented in this encounterGeneral Leonard Wood Army Community [id number] History of Present illness Narrative* Shelley Dang [...] Major depressive disorder, recurrent episode, mild (HCC) ([facility]) 03/02/2024 Gastroesophageal reflux disease without esophagitis 03/02/2024 Mild intermittent asthma without complication ([facility]) 03/02/2024 Allergic rhinitis due to pollen 03/02/2024 Morbid obesity due to excess calories ([facility]) 03/02/2024 Annual physical exam 03/02/2024 Amenorrhea 04/28/2024 [...] nursing note reviewed. Exam conducted with a fruit express agent present. Vitals: Estimated body mass index is [...] of: Jefferson Howard DO documented in this encounterGeneral Leonard Wood Army Community [id number] History of Present illness Narrative* Jefferson Howard [...] nursing note reviewed. Exam conducted with a fruit express agent present. Vitals: Estimated body mass index is [...] of: Jefferson Howard DO documented in this encounterGeneral Leonard Wood Army Community [id number] History of Present illness Narrative* LEAH Curran [...] Major depressive disorder, recurrent episode, mild (HCC) ([facility]) 03/02/2024 Gastroesophageal reflux disease without esophagitis 03/02/2024 Mild intermittent asthma without complication ([facility]) 03/02/2024 Allergic rhinitis due to pollen 03/02/2024 Morbid obesity due to excess calories ([facility]) 03/02/2024 Annual physical exam 03/02/2024 Amenorrhea 04/28/2024 [...] nursing note reviewed. Exam conducted with a fruit express agent present. Vitals: Estimated body mass index is [...] behalf of: LEAH Curran documented in this encounterGeneral Leonard Wood Army Community [id number] History of Present illness Narrative* Pilar Collins, ALGEBRAIST - 12/02/2024 1:10 PM ESTAssociated Order(s): Insertion/Removal [...] nursing note reviewed. Exam conducted with a fruit express agent present. Vitals: Estimated body mass index is [...] of: Jefferson Howard DO documented in this encounterGeneral Leonard Wood Army Community [id number] History of Present illness Narrative* Pilar Collins, ALGEBRAIST - 11/11/2024 8:40 AM EST Reason for [...] Major depressive disorder, recurrent episode, mild (HCC) ([facility]) 03/02/2024 Gastroesophageal reflux disease without esophagitis 03/02/2024 Mild intermittent asthma without complication ([facility]) 03/02/2024 Allergic rhinitis due to pollen 03/02/2024 Morbid obesity due to excess calories ([facility]) 03/02/2024 Annual physical exam 03/02/2024 Amenorrhea 04/28/2024 [...] nursing note reviewed. Exam conducted with a fruit express agent present. Vitals: Estimated body mass index is [...] of: Jefferson Howard DO documented in this encounterGeneral Leonard Wood Army Community [id number] [place] [address] EGD Procedure Note Signed Patient: Jes Romero MR#: [id number] : 2000 Acct:[id number] Age/Sex: 23 / F Adm Date: 4 Loc: Room: Type: [facility] Attending Dr: Mir Silva MD Copies to: [...] ovary. 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 On omeprazole 20 mg daily. Pre-operative diagnosis: [...] she needs to continue to follow-up with DATA CONVERSION OPERATOR as it is unlikely related to GI etiology. -Resume normal diet -Follow up in the office 6 to 8 weeks with GI ARCHITECTURAL JOB CAPTAIN -Follow up with PCP Following a period of recovery, patient was seen and given full explanation of the procedure. Patient tolerated the procedure well and will be discharged in satisfactory, stable condition. Mir Silva MD Documented By: Mir Silva MD 09/07/24 1325 Signed By: 09/07/24 1333 [facility]11-05-2024 Evaluation note* Diagnosis Onset Date Resolution Status Admit Date Dyspepsia acuteNovember 2023 9:29amNauseaacuteNovember 2023 9:29amChronic GERD chronicNovember 2023 9:29amConstipationchronicNov2023 9:29am [facility] Work Phone: Evaluation note* Diagnosis Gastroesophageal reflux [...] syndrome) Polycystic ovaries documented in this encounter [facility] HealthcareEvaluation [facility]* Diagnosis Gastroesophageal reflux disease [...] of etonogestrel implant documented in this encounter [facility] HealthcareEvaluation note* Diagnosis Gastroesophageal reflux disease without [...] female genital organs documented in this encounter [facility] HealthcareEvaluation noteNo assessment information [facility]Del[facility] Work Phone: Evaluation note* Diagnosis [...] of undetermined significance documented in this encounter [facility] HealthcareEvaluation note* Diagnosis Gastroesophageal reflux disease without [...] abnormal blood chemistry documented in this encounter [facility] HealthcareEvaluation note* Diagnosis Gastroesophageal reflux disease without [...] mild Morbid obesity due to excess calories ([facility]) Missed menses , unspecified gestational age ([facility]) Encounter for supervision of normal first in first trimester ([facility]) Right ovarian cyst Other and unspecified ovarian cyst Nausea Nausea alone PCOS (polycystic ovarian syndrome) Polycystic ovaries Gastroesophageal reflux disease, unspecified whether esophagitis present Thyroid disease Unspecified disorder of thyroid documented in this encounter [facility] HealthcareEvaluation note* Diagnosis Gastroesophageal reflux disease without esophagitis- Primary Esophageal reflux Amenorrhea Absence of menstruation Generalized abdominal pain Abdominal pain, generalized Morbid (severe) obesity due to excess calories ([facility]) Body mass index (BMI) 50.0-59.9, adult ([facility]) Right sided sciatica- Primary Sciatica Gastroesophageal reflux disease without esophagitis Esophageal reflux Major depressive disorder, recurrent episode, mild Major depressive disorder, recurrent episode, mild Morbid obesity due to excess calories ([facility]) First trimester ([facility]) state, incidental 11 weeks gestation of ([facility]) Right ovarian cyst Other and unspecified ovarian cyst Nausea Nausea alone PCOS (polycystic ovarian syndrome) Polycystic ovaries documented in this encounter [facility] HealthcareEvaluation note* Diagnosis Gastroesophageal reflux disease without esophagitis- Primary Esophageal reflux Amenorrhea Absence of menstruation Generalized abdominal pain Abdominal pain, generalized Morbid (severe) obesity due to excess calories ([facility]) Body mass index (BMI) 50.0-59.9, adult ([facility]) Right sided sciatica- Primary Sciatica Gastroesophageal reflux disease without esophagitis Esophageal reflux Major depressive disorder, recurrent episode, mild Major depressive disorder, recurrent episode, mild Morbid obesity due to excess calories ([facility]) 15 weeks gestation of ([facility]) Second trimester ([facility]) state, incidental Exposure to STD Vaginal discharge Leukorrhea, not specified as infective Nausea Nausea alone documented in this encounter [facility] HealthcareEvaluation note* Diagnosis Gastroesophageal reflux disease without esophagitis- Primary Esophageal reflux Amenorrhea Absence of menstruation Generalized abdominal pain Abdominal pain, generalized Morbid (severe) obesity due to excess calories ([facility]) Body mass index (BMI) 50.0-59.9, adult ([facility]) Right sided sciatica- Primary Sciatica Gastroesophageal reflux disease without esophagitis Esophageal reflux Major depressive disorder, recurrent episode, mild Morbid obesity due to excess calories ([facility]) Second trimester ([facility]) state, incidental 19 weeks gestation of ([facility]) Screening, , for anatomic survey ([facility]) Encounter for anatomic survey LGSIL of [...] and content) DATE CREATED AUTHOR 12/24/2022 [facility] DATE CREATED AUTHOR AUTHOR'S ORGANIZ ATION 01/19/2025 [facility] DATE CREATED AUTHOR AUTHOR'S ORGANIZ ATION 08/11/2025 [facility] DATE CREATED AUTHOR AUTHOR'S ORGANIZ ATION 08/25/2025 [facility] Care Teams (unrecognized sec tion and [...] Noel MD [address] [place] [address] PCP - [facility]03/02/24Team MemberRelationshipSpecialtyStart DateEnd Date Manuel Noel MD [address] [place] [address] [facility]03/02/24 Manuel Noel MD [address] [place] [address] [facility]07/20/24Team MemberRelationshipSpecialtyStart DateEnd Date Manuel Noel MD [address] [place] [address] [facility]03/02/24 Manuel Noel MD [address] [place] [address] [facility]07/20/24Te MemberRelationshipSpecialtyStart DateEnd Date Manuel Noel MD [address] [place] [address] [facility]03/02/24 Manuel Noel MD [address] [place] [address] [facility]07/20/24Te MemberRelationshipSpecialtyStart DateEnd Date Manuel Noel MD [address] [place] [address] [facility]03/02/24 Manuel Noel MD [address] [place] [address] [facility]07/20/24Te MemberRelationshipSpecialtyStart DateEnd Date Manuel Noel MD [address] [place] [address] [facility]03/02/24 Manuel Noel MD [address] [place] [address] [facility]07/20/24Te MemberRelationshipSpecialtyStart DateEnd Date Manuel Noel MD [address] [place] [address] [facility] - [facility]03/02/24 Manuel Noel MD [address] [place] [address] [facility]07/20/24Team MemberRelationshipSpecialtyStart DateEnd Date Manuel Noel MD [address] [place] [address] [facility]03/02/24 Manuel Noel MD [address] [place] [address] [facility]07/20/24Team MemberRelationshipSpecialtyStart DateEnd Date Manuel Noel MD [address] [place] [address] [facility]03/02/24 Manuel Noel MD [address] [place] [address] [facility]07/20/24 Team Status: Inactive Member Role Status Dates Jefferson Howard DO Attending Provider Active Start : January 17, 2025 End: January 17, 2025Team MemberRelationshipSpecialtyStart DateEnd Date Manuel Noel MD [address] [place] [address] [facility]03/02/24 Manuel Noel MD [address] [place] [address] [facility]07/20/24Te MemberRelationshipSpecialtyStart DateEnd Date Manuel Noel MD [facility] - [facility]03/02/24 Manuel Noel MD [address] [place] [address] [facility]07/20/24Te MemberRelationshipSpecialtyStart DateEnd Date Manuel Noel MD [facility]03/02/24 Manuel Noel MD [address] [place] [address] [facility]07/20/24Te MemberRelationshipSpecialtyStart DateEnd Date Manuel Noel MD [facility] - [facility]03/02/24 Manuel Noel MD [address] [place] [address] [facility]07/20/24Te MemberRelationshipSpecialtyStart DateEnd Date Manuel Noel MD [facility] - [facility]03/02/24 Manuel Noel MD [address] [place] [address] PCP - [facility]07/20/24Team MemberRelationshipSpecialtyStart DateEnd Date Manuel Noel MD PCP - [facility]03/02/24 Manuel Noel MD [address] [place] [address] PCP - [facility]07/20/24 Reason for Visit (unrecogniz ed section [...] BE BASED ON THE PRIMARY CLINICAL RECORDS. [facility] [employer] [facility]. provides no warranty or guarantee of the accuracy or completeness of information in this document.
--- OUTSIDE RECORDS SUMMARY | 2025-08-29 05:37 | XMS_ITS | Encounter Summary ---
Author Organization [facility] Address [address] [place] [address] Care Team Providers Care Mold Cooler Name Role Phone Manuel Noel MD Primary Care Provider [phone] Manuel Noel MD Unavailable Encounter Details DateTypeDepartmentCare Team (Latest Contact Info)Wpeoczgjfdt56/15/2024linisync Result Encounter [facility] Unsolicited Manuel Noel MD [address] [place] [address] Social History Tobacco UseTypesPacks/DayYears UsedDateSmoking Tobacco: NeverSmokeless Tobacco: NeverSocial Connection and Isolation PanelAnswerDate RecordedIn a typical week, how many times do you talk on the phone with family, friends, or neighbors?Twice a week03/02/2024How often do you get together with friends or relatives?Twice a week03/02/2024How often do you attend yazidism or caodaism services?Never 03/02/2024ctive Member of Clubs or OrganizationsNot [...] to strenuous exercise (like a brisk walk)?Patient aznmyxmz92/14/2024On average, how many minutes do you engage in exercise at this level?Patient cqucyqmo27/14/2024 Housing Stability Vital SignAnswerDate RecordedIn the last 12 months, was there a time when you were not able to pay the mortgage or rent on time?No03/02/2024In the last 12 months, how many places have you lived?In the last 12 months, was there a time when you did not have a steady place to sleep or slept in [place] (including now)?No03/02/2024CommentsUnknownSex and Gender InformationValueDate RecordedSex Assigned at BirthNot on fileLegal SexFemale 01/01/2023 8:14 PM EDTGender IdentityNot on fileSexual OrientationNot on file documented as of this encounter Plan of Treatment DateTypeDepartmentCare Team (Latest Contact Info)Fwxbdyppebo92/12/2025 11:20 AM ESTRoutine [facility] [address] [place] [address] Gia Agustin PA [address] [place] [address] documented as of this encounter Procedures Procedure NamePriorityDate/TimeAssociated DiagnosisCommentsXR LUMBAR SPINE 2 OR 3V06/03/2024 1:10 PM EDT documented in this encounter Results * XR LUMBAR SPINE 2 OR 3V (06/03/2024 1:10 PM EDT)Anatomical RegionLaterality ModalityRadiographic ImagingSpecimen (Source)Anatomical Location / Laterality Collection Method / VolumeCollection TimeReceived Time06/03/2024 1:10 PM EDT Narrative 06/03/2024 1:13 PM EDT [facility] ?[address] ? [place] [address] ?XRay Report ? Signed ? Patient: HEATHER,MANISH L ?MR#: [id number] ?? : 2000 ?Acct:[id number] ?? Age/Sex: 23 / F ?ADM Date: 08/13/24 ?? Loc: RAD ? Attending Dr: Manuel Noel M.D. ? Ordering Physician: Manuel Noel M.D. ?? Date of Service: 06/01/24 ?? Procedure(s): XR lumbar spine 2-3V ?? Accession Number(s): [id number] ? cc: Manuel Noel M.D. ? [facility] ? [address] ? [place] [address] ? Patient Name: ?? MANISH ROMERO ? MRN: [facility]:[id number] ? date: 2000 ?Sex: F ?? Assigned Patient Location: RAD ?? Current Patient Location: ? Accession/Order Number: [id number] ?? Exam Date: 06/01/2024 ??14:19 ?Report Date: [...] 1313 ? DD/ 1310 ? TD/TT: ? Stock Lifter: Procedure Note Radiology, Radiologist, MD - 06/03/[address] [address] XRay Report Signed Patient: MANISH ROMERO LMR#: [id number] : 2000Acct:[id number] Age/Sex: 23 / FADM Date: 06/01/24 Loc: RAD Attending Dr: Manuel Noel M.D. Ordering Physician: Manuel Noel M.D. Date of Service: 06/01/24 Procedure(s): XR lumbar spine 2-3V Accession Number(s): [id number] cc: Manuel Noel M.D. [address] [address] Patient Name: MANISH ROMERO MRN: [facility]:[id number] date: 2000 Sex: F Assigned Patient Location: [facility] Current Patient Location: Accession/Order Number: [id number] Exam Date: 06/01/2024 14:19 Report Date: 06/03/2024 [...] M.D. Signed By:06/03/24 1313 DD/ 1310 TD/TT: Stock Lifter: Authorizing ProviderResult TypeResult StatusMarc Bert MATSONIMG XR PROCEDURES Final Result documented in this encounter Visit Diagnoses Not on filedocumented in this encounter Care Teams Team MemberRelationshipSpecialtyStart DateEnd Date Manuel Noel MD [facility] [place]24 Manuel Noel MD [address] [place] [address] [facility]07/20/24documented as of this encounter
--- OUTSIDE RECORDS SUMMARY | 2025-08-29 05:37 | XMS_ITS | Clinical Summary ---
Author Organization Re[employer]you tem Address [id number] [address] [place] [address] Care Team Providers Care Cloth Inspector Name Role Phone Manuel Schwartz MD Primary Care Provider [phone] Allergies Active AllergyReactionsCriticalityNoted JudpYggyzpkuUgcpngfciwm58/04/2019 Medications MedicationSigDispense QuantityRefillsLast FilledStart DateEnd DateStatus omeprazole [...] Patient not taking.Reported on 08/23/2025 Encounters DateTypeDepartmentCare VeeaLsqgagcxjmq62/04/2025 7:25 PM EST - 08/23/2025 9:27 PM ESTHospital Encounter [facility] [address] [place] [address] Ny Lewis, INSULATION WORKER INTERIOR SURFACE-CN Discharge Disposition: Home08/23/20250443Kcfqbf77/04/2025 - 08/23/2025 7:18 PM EST Emergency [facility] - Emergency [address] [place] [id number] Discharge Disposition: ED Dismiss - Never Arrivedfrom [...] RecordedIn the past 12 months has the [employer], gas, oil, or water [employer] threatened to shut off services in your home?No08/23/2025Housing InstabilityAnswerDate RecordedAre you worried or concerned that in the next two months you may not have stable housing that you own, rent or stay in as a part of a household?No 5ChildcareAnswerDate JbxjoerjBvzbhawxvPcalili34/11/2019EmploymentAnswer Date RgwcylgxShvkzlrldfPwyhcvg28/11/2019Hunger ScreeningAnswerDate Recorded Within the past 12 months we worried whether our food would run out before we got money to buy more.Never True08/23/2025Within the past 12 months the food we bought just didn't last and we didn't have money to get more.Never True 08/23/2025Purpose - LifeAnswerDate RecordedPurpose and direction in lifeUnknown 1Estimated Date of IcorympuMgkkursvLlv69/09/2026ased on UltrasoundSex and Gender InformationValueDate RecordedSex Assigned at BirthNot on fileLegal UbvKtaqnf27/04/2015 6:13 PM EDTGender IdentityNot on fileSexual OrientationNot on file Last Filed Vital Signs Vital SignReadingTime TakenCommentsBlood Tdkdwapa504/8411 7:34 PM EST Mkfpp93904 7:34 PM JKGHyimdmpwibd03.7 ??C (98 ??F)08/23/2025 7:34 PM EST Respiratory Wthz2122 7:34 PM ESTOxygen Xjhjgtwswk82%04/14/2025 2:13 AM EDTInhaled Oxygen Concentration--Ceipjr066.5 kg (281 lb)08/23/2025 7:34 PM EST Lhddzl076.5 cm (5' 2 )08/23/2025 7:34 PM ESTBody Mass Index51.411 7:34 PM EST Plan of Treatment Health MaintenanceDue DateLast DoneCommentsDepression Mnpxexrnq05/11/2013dult BMI Follow Up Plan2018Pap Smear2DTaP,Tdap and Td Vaccines (7 - Td or Tdap)/10/2012, 10/31/2004, 02/02/2002, Additional history exists Influenza Bfrepki36/RSV ( or age 60+ yrs) (1 - Risk 1-dose series)10/31/2025Tobacco Eqhdyfmzl64dult BMI Lldzpheal75 Medical Devices Not on file Procedures Procedure NamePriorityDate/TimeAssociated DiagnosisCommentsEXTRA TUBES SST TOP Psmsiiz5908/23/2025 8:24 PM EST EXTRA GBHKLIchvpwb91/04/2025 8:24 PM EST BASIC METABOLIC NTZTTCQVY52/04/2025 8:20 PM EST CBC (NO DIFF)STAT110/23/2024 8:20 PM EST ZEUDYCRTVOALNQ06/04/2025 8:03 PM EST from Last 3 Months Results * SST TOP (08/23/2025 8:24 PM EST)ComponentValueRef RangeTest MethodAnalysis TimePerformed AtPathologist SignatureExtra TubeAuto Fyxvewlz01/04/2025 10:01 PM [facility]ISTRATIONpecimen (Source)Anatomical Location / LateralityCollection Method / VolumeCollection TimeReceived TimeBloodVenous blood / Jlyervo2908/23/2025 8:24 PM EST08/23/2025 8:24 PM EST Narrative Authorizing ProviderResult TypeResult StatusKathleen Maribell Lewis INSULATION WORKER INTERIOR SURFACE-CNMLAB BLOOD ORDERABLESFinal ResultPerforming OrganizationAddressCity/State/ZIP CodePhone Number [facility] [address] * (ABNORMAL) CBC without diff (08/23/2025 8:20 PM EST)ComponentValueRef Range Test MethodAnalysis TimePerformed AtPathologist SignatureWBC8.94 - 11 X10^9/L 08/23/2025 8:32 PM [facility] Count3.62(L)3.8 - 5.2 X10^12/L110/23/2024 8:32 PM [facility] Upcvfxcbcp75.6(L)11.7 - 15.5 g/dL08/23/2025 8:32 PM ESTPROMENLO PARK SURGICAL HOSPITALHematocrit31.2(L)35 - 47 %08/23/2025 8:32 PM ESTPROMENLO PARK SURGICAL HOSPITALMCV8680 - 100 fL08/23/2025 8:32 PM ESTPROMENLO PARK SURGICAL HOSPITALMCH29.227 - 34 pg08/23/2025 8:32 PM ESTPROMENLO PARK SURGICAL HOSPITALMCHC33.832 - 36 g/dL08/23/2025 8:32 PM ESTPROMENLO PARK SURGICAL HOSPITALRDW13.511.5 - 15 %08/23/2025 8:32 PM [facility]ITALPlatelet Zflui029159 - 450 X10^9/L110/23/2024 8:32 PM ESTADAMS COUNTY REGIONAL MEDICAL CENTERMPV9.27 - 12 fL08/23/2025 8:32 PM EST [facility]ITALpecimen (Source)Anatomical Location / LateralityCollection Method / VolumeCollection TimeReceived TimeBloodVenous blood / UnknownVenipuncture / Inmbctt3408/23/2025 8:20 PM EST08/23/2025 8:23 PM EST Narrative Authorizing ProviderResult TypeResult StatusKathljamilah Lewis INSULATION WORKER INTERIOR SURFACE-CNMLAB BLOOD ORDERABLESFinal ResultPerforming OrganizationAddressCity/State/ZIP CodePhone Number [facility] [address] [place] [address], * (ABNORMAL) Basic Metabolic Panel (08/23/2025 8:20 PM EST)ComponentValueRef RangeTest MethodAnalysis TimePerformed AtPathologist KncwwldlzODWNTL779895 - 146 mmol/L110/23/2024 8:37 PM ESTADAMS COUNTY REGIONAL MEDICAL CENTERPOTASSIUM 3.73.5 - 5.0 mmol/L110/23/2024 8:37 PM ESTAD[facility] RGQVVEGF06072 - 109 mmol/L110/23/2024 8:37 PM ESTADAMS COUNTY [facility] MEDICAL CENTERCARBON JMDFLZW16(L)22 - 32 mmol/L110/23/2024 8:37 PM ESTADAMS COUNTY REGIONAL MEDICAL CENTERANION OWL297 - 15 mmol/L110/23/2024 8:37 PM EST [facility] CENTERBLOOD UREA CKCFBPMZ33 - 23 mg/dL08/23/2025 8:37 PM ESTADAMS COUNTY REGIONAL MEDICAL CENTERCREATININE0.530.40 - 1.00 mg/dL 08/23/2025 8:37 PM [facility]ITALComment:METHOD TRACEABLE TO IDMS WOYLOCSPTIGVMEX761(H)65 - 99 mg/dL08/23/2025 8:37 PM EST [facility] CENTERCALCIUM8.3(L)8.5 - 10.5 mg/dL08/23/2025 8:37 PM ESTADAMS COUNTY REGIONAL MEDICAL CENTEREGFR Non-Race Dependent>90>=60 ml/min/1.73sq.m110/23/2024 8:37 PM [facility] Comment: eGFR not reported due to non-numeric value for Creatinine. Reported eGFR is based on the CKD-EPI 2020 equation that does not use a race coefficient. Specimen (Source)Anatomical Location / LateralityCollection Method / Volume Collection TimeReceived TimeBloodVenous blood / UnknownVenipuncture / Unknown 08/23/2025 8:20 PM EST08/23/2025 8:23 PM EST Narrative Authorizing ProviderResult TypeResult StatusKathleen Maribell Lewis INSULATION WORKER INTERIOR SURFACE-CNMLAB BLOOD ORDERABLESFinal ResultPerforming OrganizationAddressCity/State/ZIP CodePhone Number [facility] [address] [place] [address], * (ABNORMAL) Urinalysis (08/23/2025 8:03 PM EST)ComponentValueRef RangeTest MethodAnalysis TimePerformed AtPathologist SignatureCOLORYellowYellow 08/23/2025 8:41 PM ESTADAMS COUNTY [facility]IONAL MEDICAL CENTERTURBIDITYHazy(A)Clear 08/23/2025 8:41 PM ESTUC WEST CHESTER HOSPITALPECIFIC GRAVITY1.020 1.003 - 1.9720208/23/2025 8:41 PM ESTADAMS COUNTY REG[facility] MEDICAL CENTERNITRITE MhxblgflPbhrmhma03/04/2025 8:41 PM ESTAD[facility] PH,URINE7.05.0 - 8.511 8:41 PM ESTAD[facility] LEUKOCYTE GVSRTARKLdqmxknrHudakejy87/04/2025 8:41 PM ESTADAMS COUNTY [facility]IONAL MEDICAL CENTERPROTEINTrace(A)Jwmekeye48/04/2025 8:41 PM ESTPROMENLO PARK SURGICAL HOSPITALKETONES (URINE)YmrewwkeZtxkniie50/04/2025 8:41 PM EST [facility] CENTERUROBILINOGEN>=8.0 eu/dL(A)0.2 eu/dL, 1.0 eu/dL08/23/2025 8:41 PM ESTPROMENLO PARK SURGICAL HOSPITALBILIRUBIN (URINE)OnkckmlwWoamrpzc80/04/2025 8:41 PM ESTADAMS COUNTY REGIONAL MEDICAL CENTERBLOOD/WGMNviftkftWmozpbnc75/04/2025 8:41 PM ESTADAMS COUNTY REGIONAL MEDICAL CENTERAMORPHOUS SEDIMENTPresent(A)None08/23/2025 8:41 PM EST [facility]OSPITALQUAMOUS REYVRKLNMR17 - 8:41 PM ESTADAMS COUNTY REGIONAL MEDICAL CENTERGLUCOSE (URINE)NegativeNegative, 250 mg/dL08/23/2025 8:41 PM ESTUC WEST CHESTER HOSPITALpecimen (Source)Anatomical Location / LateralityCollection Method / VolumeCollection TimeReceived TimeUrineUrine specimen collection, clean catch / Unknown 08/23/2025 8:03 PM EST08/23/2025 8:23 PM EST Narrative Authorizing ProviderResult TypeResult StatusKathleen S Clare[place] INSULATION WORKER INTERIOR SURFACE-CNMURINE ORDERABLESFinal ResultPerforming OrganizationAddressCity/State/ZIP CodePhone Number [facility] [address] [place] [address], from Last 3 Months Insurance Care Teams Team MemberRelationshipSpecialtyStart DateEnd Date Manuel Schwartz MD PCP - GeneralFamily Medicine01/21/19
--- OUTSIDE RECORDS SUMMARY | 2025-08-29 05:37 | XMS_ITS | Encounter Summary ---
Author Organization [facility] Address [address] [place] [address] Care Team Providers Care Drawer In Name Role Phone Manuel Schwartz MD Primary Care Provider [phone] Manuel Schwartz MD Unavailable Encounter Details DateTypeDepartmentCare Team (Latest Contact Info)Gftbrsokkyg81/30/2025Orders Only [facility] [address] [place] [address] Mandie PaulNorth [place], [place] [address] [place] [address] Social History Tobacco UseTypesPacks/DayYears UsedDateSmoking Tobacco: NeverSmokeless Tobacco: NeverSocial Connection and Isolation PanelAnswerDate RecordedIn a typical week, how many times do you talk on the phone with family, friends, or neighbors?Twice a week03/02/2024How often do you get together with friends or relatives?Twice a week03/02/2024How often do you attend gnosticism or adventist services?Never 03/02/2024ctive Member of Clubs or OrganizationsNot [...] to strenuous exercise (like a brisk walk)?Patient ludmezpr76/14/2024On average, how many minutes do you engage in exercise at this level?Patient jzezdvux40/14/2024 Housing Stability Vital SignAnswerDate RecordedIn the last 12 months, was there a time when you were not able to pay the mortgage or rent on time?No03/02/2024In the last 12 months, how many places have you lived?In the last 12 months, was there a time when you did not have a steady place to sleep or slept in ashelter (including now)?No03/02/2024Estimated Date of Delivery QfpmqrpiVka98/09/2026Based on Ultrasound, FHR- 136Sex and Gender Information ValueDate RecordedSex Assigned at BirthNot on fileLegal ZqhQcirro11/15/2023 8:14 PM EDTGender IdentityNot on fileSexual OrientationNot on filedocumented as of this encounter Plan of Treatment DateTypeDepartmentCare Team (Latest Contact Info)Wbdgngxvnjy75/12/2025 11:20 AM ESTRoutine [facility] OBGYAnish [address] [place] [phone] Gia Agustin PA [address] [place] [address] documented as of this encounter Procedures Procedure NamePriorityDate/TimeAssociated DiagnosisCommentsPAP TEST, EXTERNAL Jzfrzjh2008/02/2025 12:00 AM EDTdocumented in this encounter Results * PAP TEST, EXTERNAL (08/02/2025 12:00 AM EDT) Narrative Authorizing ProviderResult TypeResult StatusCorey Anita DOLAB CYTOLOGY ORDERABLESFinal ResultPerforming OrganizationAddressCity/State/ZIP CodePhone Number EXTERNAL LAB documented in this encounter Visit Diagnoses Not on filedocumented in this encounter Care Teams Team MemberRelationshipSpecialtyStart DateEnd Date Manuel Schwartz MD PCP - [facility]03/02/24 Manuel Schwartz MD [address] [place] [phone] PCP - [facility]07/20/24documented as of this encounter
[2025-08-29 06:07] VITALS: TEMP 30.3; TEMP 35.6
[2025-08-29 06:08] VITALS: BP 124/75; PULSE 84
[2025-08-29 06:10] VITALS: TEMP 36.4
== END 2025-08-29 06:37 | disposition home or self-care (01) ==
LOC: FBC 05:34
PROVIDERS: Admitting Provider Obstetrics & Gynecology; PCP Family Medicine; Visit Provider Obstetrics & Gynecology
DX: O23.42 Unspecified infection of urinary tract in pregnancy, second trimester (principal); O99.891 Other specified diseases and conditions complicating pregnancy; R10.30 Lower abdominal pain, unspecified; Z3A.23 23 weeks gestation of pregnancy; R10.9 Unspecified abdominal pain; N39.0 Urinary tract infection, site not specified
CPT/HCPCS: 36415; 80053; 81001; 85025; 87086; 99284; G0378; G0379

== ENCOUNTER 2025-09-12 08:53 | Observation (INO) | payer OTHER, SELFPAY ==
--- OUTSIDE RECORDS SUMMARY | 2025-08-29 19:42 | XMS_ITS | Continuity of Care Document ---
Author Organization [facility] Address [address] [place] [address] Phone Care Team Providers Care Tire Finisher Name Role Phone Tae ([facility])Bello DO Attending Provider [phone] Care Teams Patient Care Team Team Status: Inactive Member Role/Relationship Status Dates Bello Strong ([facility]) , Attending Provider Active Start: August 29, 2025 End: August 29, 2025 Visit Care Team Team Status: Active Member Role/Relationship Status Dates Bello Strong , Attending Provider Active Start: August 29, 2025 Allergies, Adverse Reactions, Alerts Allergen Type Severity Reaction Last Updated Verified Status Penicillins Allergy Unknown Unknown Reaction Decembe r 2023 10:18am Yes Active Social History Smoking Status Status Start Date End Date Date of Observa tion Never smoked tobacco (finding) September 07, 2024 12:29pm Observation Status Observation Response Date of Response Legal Sex Female (finding) Sex Assigned At [facility] [age] Family History Relationship Condition Age at Onset Recorded Date/T joe Not Specified No pertinent family history Unknown Problems Active Problems Problem Diagnosis/Recorded Date Onset Date Stat us Depression, major, recurrent January 21, 2019 4:06pm Un known Active Bile acid esophageal reflux October 05, 2024 10:31a m Unknown Active Low vitamin D level January 23, 2019 10:29am Unknown Active Dyspepsia August 24, 2024 9:40am Unknown Ac tive Chronic GERD January 21, 2019 3:36pm Unknown Activ e Esophagitis October 05, 2024 10:31am Unknown Active Nausea August 24, 2024 9:35am Unknown Ac tive Constipation January 21, 2019 3:52pm Unknown Activ e Medications Medication Status Dose Units Route Directions Qty Days Refills S tart Date Stop Date End Date Reason(s) Instructions Adherence Omeprazole 20 mg Capsule,Del ayed Release(Dr/Ec) Discontinued 20 MG PO as needed for Acne November 20, 2017 12:00amFebruary 2021 2:38pmErgocalciferol (Vitamin D2) 50,000 unit GzukbzqVrexsbrzpkzk45167QWDGMPUj@43440994Kkcoo 2018 11:00pm December 12, 2021 2:38pmSertraline 50 mg AyiwpnZhkbdiuchabw92VIQJWifcu28322 January 25, 2019 11:00pmFebruary 2021 2:38pmAripiprazole 2 mg Tablet Ugvscbyowkbx4ZVNPUukey54807Psalc 2018 11:00pmFebruary 2021 2:38pm Drospirenone-Ethinyl Estradiol 3-0.03 mg qzmtkjFdkggevwglvl2HWQOGHkadyWiqsnxje 2021 12:00amNov[facility]se[facility] 2023 9:33amAlbuterol Sulfate (Ventolin Hfa) 90 mcg/actuation HFA aerosol lsitawwRpectfvkhhdr0DPLKHCDOJUFNAX1F as needed for sob December 12, 2021 12:00[facility] 2023 9:32amOmeprazole 20 mg Capsule,Delayed Release(Dr/Ec)Qnaljbinrtte14GNBLKiflt37241Gylrvldd 2021 12:00amNoveer 2023 1:33pmDuloxetine 30 mg Capsule,Delayed Release(Dr/Ec) Kabcditzpkbe20WHNBXzmdi at iockoyu34447Kptpieuu 2021 12:00[facility]se[facility] 2023 9:32amPromethazine 25 mg fyfywdXvgune93RTZDEhusz 6 hours as needed for nausea and vomitingAugust 27, 2024 12:00amUnknownOmeprazole 40 mg capsule,delayed release(DR/EC)Tnxmcs46ZJKDMvwui381Azbuqilp 19th, 2024 12:00am UnknownMeclizine 25 mg harnjbDhvbpm60RWCHZj Directed as needed for dizziness August 24, 2024 12:00amUnknownAlbuterol Sulfate 90 mcg/actuation aerosol powdr breath ifdidziumCbkyhp4MVBZKTZUFXRVSWWMPO 4-6 HOURS as neededDece2023 12:00amUnknownSucralfate (Carafate) 1 gram igvewuSlwifp1LFYIUomly xettf43225Qohwpzvg 17th, 2024 12:00amUnknown Medical Equipment Device Date Implanted Device Details STENT PANCREATIC ZIMMON 4FR November 20, 2017 Procedures Procedure Date Performed Status Urine Culture August 29, 2025 active Relevant Diagnostic Tests and/or Laboratory Data Laboratory Results Test Collection Date/Time Result Date/Time Result Interpretation Reference Range Result Comment Performing Site Urine Culture Reflexed August 29, 2025 4:40a m YES-FRMCAnion GapAugust 29, 2025 4:48amNovember 2024 4:48am11.4 Basophils # (Auto)August 29, 2025 4:48amNovember 2024 4:48am0.0 10 3/uL0.0-0.1Urine Other CastsAugust 29, 2025 4:40amSEEN #/LPFAbnormal (applies to non-numeric results)NONE SEENAlbumin/Globulin RatioNove2024 4:48amNovember 2024 4:48am0.6Basophils (%) (Auto)August 29, 2025 4:48amNovember 2024 4:48am0.5 %0.2-2.0Urine Other CrystalsAugust 29, 2025 4:40amNone Seen #/HPFNone SeenAlbuminAugust 29, 2025 4:48amNovember 2024 4:48am2.7 g/dLBelow low normal3.4-5.0Eosinophils # (Auto)August 29, 2025 4:48amNovember 2024 4:48am0.1 10 3/uL0.0-0.7Urine Bacteria August 29, 2025 4:40amSMALL #/HPFAbnormal (applies to non-numeric results) NONE SEENAlkaline PhosphataseAugust 29, 2025 4:48amNovemb2024 4:88jd647 U/A84-149Kwrzmwqqese (%) (Auto)August 29, 2025 4:48amNovemb2024 4:48am0.7 %Below low normal0.9-7.0Urine BilirubinAugust 29, 2025 4:40amSMALLAbnormal (applies to non-numeric results)NEGATIVEAlanine Aminotransferase (ALT/SGPT)August 29, 2025 4:48amNovemb2024 4:48am 22 U/T88-68SxhbbjtityNgetmhrq 10th, 2025 4:48amNovemb2024 4:48am32.5 % Below low ilqxvm61.0-48.0Urine Occult BloodAugust 29, 2025 4:40amNEGATIVE NEGATIVEAspartate Amino Transf (AST/SGOT)August 29, 2025 4:48amNovemb2024 4:48am13 U/LBelow low qzunsz36-46TjetuzpdvjEhikuxzg 10th, 2025 4:48am August 29, 2025 4:48am11.0 g/dLBelow low tprwru09.0-16.0Urine Appearance August 29, 2025 4:40amCLEARCLEARBUN/Creatinine RatioNove2024 4:48amNove2024 4:48am8.3Immature Granulocyte # (Auto)August 29, 2025 4:48amNovemb2024 4:48am0.06 10 3/uLAbove high normal0.00-0.03Urine ColorAugust 29, 2025 4:40amYELLOWYELLOWBlood Urea NitrogenAugust 29, 2025 4:48amNovemb2024 4:48am5.0 mg/dLBelow low normal7.0-18.0Immature Granulocyte % (Auto)August 29, 2025 4:48amNove2024 4:48am0.7 % Above high normal0.0-0.5Urine Fine Granular CastsAugust 29, 2025 4:40amRARE Calcium LevelAugust 29, 2025 4:48amNove2024 4:48am8.7 mg/dL 8.5-10.1Lymphocytes # (Auto)August 29, 2025 4:48amNove2024 4:48am 1.9 10 3/uL1.2-3.8Urine Glucose (UA)August 29, 2025 4:40amNEGATIVE mg/dL NEGATIVEChloride LevelAugust 29, 2025 4:48amNovember 2024 4:33qa822 mmol/T82-087Jmebeljcvqd (%) (Auto)August 29, 2025 4:48amNovember 2024 4:48am21.7 %20.5-60.0Urine KetonesNov2024 4:40am40 mg/dLAbnormal (applies to non-numeric results)NEGATIVECarbon Dioxide LevelNov2024 4:48amNovemb2024 4:48am25.2 mmol/L21.0-32.0Mean Corpuscular Hemoglobin August 29, 2025 4:48amNovember 2024 4:48am30.1 pg26.7-34.0Urine Leukocyte EsteraseAugust 29, 2025 4:40amNEGATIVENEGATIVECreatinineAugust 29, 2025 4:48amNove2024 4:48am0.60 mg/dL0.55-1.02Mean Corpuscular Hemoglobin ConcentAugust 29, 2025 4:48amNove2024 4:48am33.8 g/dL 29.9-35.2Urine MucusAugust 29, 2025 4:40amSMALLAbnormal (applies to non- numeric results)NONE SEENEstimated GFR ()August 29, 2025 4:48amNove2024 4:48am>60>=60 mL/min/1.73m 2Mean Corpuscular Volume August 29, 2025 4:48amNovemb2024 4:48am88.8 fL81.0-99.0Urine NitriteAugust 29, 2025 4:40amNEGATIVENEGATIVEEstimated GFR (Non- AmericanAugust 29, 2025 4:48amNovemb2024 4:48am>60>=60 mL/min/1.73m 2Monocytes # (Auto)August 29, 2025 4:48amNove2024 4:48am0.8 10 3/uL0.3-0.8Urine pHNov2024 4:40am5.55.0-9.0GlobulinAugust 29, 2025 4:48amNovember 2024 4:48am4.3 g/dLMonocytes (%) (Auto)August 29, 2025 4:48amNovember 2024 4:48am8.6 %1.7-12.0Urine ProteinNov2024 4:64dy188 mg/dLAbnormal (applies to non-numeric results)NEG/TRACEGlucose LevelNov2024 4:48amNovemb2024 4:48am94 mg/oI11-874Nszy Platelet VolumeAugust 29, 2025 4:48amNovemb2024 4:48am11.4 fL 9.5-13.5Urine RBCNov2024 4:21yu4-6 #/HPF0-2Potassium LevelNov2024 4:48amNovemb2024 4:48am3.6 mmol/L3.5-5.1Neutrophils # (Auto) August 29, 2025 4:48amNovemb2024 4:48am5.9 10 3/uL1.4-6.5Urine Specific GravityAugust 29, 2025 4:40am>=1.030Abnormal (applies to non- numeric results)1.005-1.025Sodium LevelAugust 29, 2025 4:48amNove2024 4:31ku564 mmol/F328-467Iwokkolnyed (%) (Auto)August 29, 2025 4:48am August 29, 2025 4:48am67.8 %43.0-75.0Urine Squamous Epithelial CellsAugust 29, 2025 4:40amFEW #/LPFAbnormal (applies to non-numeric results)NONE/RARE Total BilirubinAugust 29, 2025 4:48amNove2024 4:48am0.5 mg/dL 0.2-1.0Platelet CountAugust 29, 2025 4:48amNove2024 4:81zt507 10 3/aW006-893Rgtwp UrobilinogenNov2024 4:40am2.0 EU/dLAbnormal (applies to non-numeric results)0.2-1.0Total ProteinAugust 29, 2025 4:48am August 29, 2025 4:48am7.0 g/dL6.4-8.2Red Blood CountAugust 29, 2025 4:48amNove2024 4:48am3.66 10 6/uLBelow low normal4.20-5.40Urine WBC August 29, 2025 4:22gu2-2 #/HPFAbnormal (applies to non-numeric results)NONE SEENRed Cell Distribution WidthAugust 29, 2025 4:48amNove2024 4:48am13.1 %11.0-15.0Corrected White Blood CountAugust 29, 2025 4:48am August 29, 2025 4:48am8.7 10 3/uL4.0-11.0 Advance Directives Advance Directive Response Recorded Date/ Time Advance Directives No November 20, 2017 7:11am Insurance Providers Guarantor Jes Malik Address [address] [place], [place] [address]Contact Info.Home Phone: Payer Group Member ID Coverage Type Subscriber Relationship to Subscriber Effective Date Expiration Date [employer] Jocelin [id number] L Snyder Id: [id number] [address] [place], [place] [address] Home Phone: Self Encounters Encounter Location(s) Arrival/Admit Date Discharge/Departure Date Discharge/Departure Disposition Provider(s) Departed Referred -[facility] August 29, 2025 4:40am August 29, 2025 4:41am Discharged to home care or self care (routine discharge) Bello Strong ([facility]) , DO Non-patient / Non-visit -[facility] N ov2024 4:48am ([place]) Bello Strong , DO Plan of Treatment Future Tests Future scheduled test information is unavailable Pending Tests Test Name Ordered Date Scheduled Date Urine Culture August 29, 2025 4:40am Future Visits Future appointment information is unavailable Future Procedures Procedure Name Ordered Date Scheduled Date Urine Culture August 29, 2025 12:56pm Anh mauro 2024 4:40am Future Medications Future medication information is unavailable Patient Instructions Patient instructions are unavailable
--- OUTSIDE RECORDS SUMMARY | 2025-08-31 11:20 | XMS_ITS | Encounter Summary ---
Author Organization [facility] Address [address] [place] [address] Care Team Providers Care Customer Services Coordinator Name Role Phone Manuel Schwartz MD Primary Care Provider [phone] Manuel Schwartz MD Unavailable Reason for Visit * ReasonCommentsRoutine Visit Encounter Details DateTypeDepartmentCare Team (Latest Contact Info)Ovdwziyfbuy40/12/2025 11:20 AM ESTRoutine [facility] WORLEY [address] [place] [address] Gia Agustin PA [address] [place], [place] [phone] Second trimester ([facility]); 23 weeks gestation of ([facility]); Diabetes mellitus screening; Urinary tract infection without hematuria, site unspecified Social History Tobacco UseTypesPacks/DayYears UsedDateSmoking Tobacco: NeverSmokeless Tobacco: NeverSocial Connection and Isolation PanelAnswerDate RecordedIn a typical week, how many times do you talk on the phone with family, friends, or neighbors?Twice a week03/02/2024How often do you get together with friends or relatives?Twice a week03/02/2024How often do you attend oriental orthodox or hinduism services?Never 03/02/2024ctive Member of Clubs or OrganizationsNot [...] to strenuous exercise (like a brisk walk)?Patient txrtozhp58/14/2024On average, how many minutes do you engage in exercise at this level?Patient twwxrgag64/14/2024 Housing Stability Vital SignAnswerDate RecordedIn the last 12 months, was there a time when you were not able to pay the mortgage or rent on time?No03/02/2024In the last 12 months, how many places have you lived?In the last 12 months, was there a time when you did not have a steady place to sleep or slept in [place] (including now)?No03/02/2024Estimated Date of Delivery QwbqpapuQok70/09/2026ased on Ultrasound, FHR- 136Sex and Gender Information ValueDate RecordedSex Assigned at BirthNot on fileLegal NdzEjkyrd77/15/2023 8:14 PM EDTGender IdentityNot on fileSexual OrientationNot on filedocumented as of this encounter Last Filed Vital Signs Vital SignReadingTime TakenCommentsBlood Kebqpdfa993/7611 10:55 AM EST Pulse--Temperature--Respiratory Rate--Oxygen Saturation--Inhaled Oxygen Concentration--Petjah051 kg (283 lb)08/31/2025 10:55 AM ESTHeight--Body Mass Index53.4708 1:21 PM EDTdocumented in this encounter Progress Notes * LEAH Curran - 08/31/2025 11:20 AM EST Reason for Appointment: Patient ID: Jes Malik [...] nausea. ALLERGIES Allergies Allergen Reactions Penicillins Unknown Other Reaction(s): Unknown Reaction PROBLEMS Active Ambulatory Problems Diagnosis Date Noted Major depressive disorder, recurrent episode, mild 03/02/2024 Gastroesophageal reflux disease without esophagitis 03/02/2024 Mild intermittent asthma without complication ([facility]) 03/02/2024 Allergic rhinitis due to pollen 03/02/2024 Morbid obesity due to excess calories ([facility] 03/02/2024 Annual physical exam 03/02/2024 Amenorrhea 04/28/2024 [...] SYSTEMS Review of Systems: Review of Systems OBJECTIVE Objective: OBGyn Exam Vitals: Estimated body mass index is 53.12 kg/m?? as calculated from the following: Height as of 06/01/24: 5' 1 . Weight as of 08/02/25: 281 lb 1.9 oz. BP: Patient's last menstrual period was 03/08/2025. Assessment/Plan ICD-10-CM 1. Second trimester ([facility]) Z34.92 POCT urinalysis dipstick manually resulted 2. 23 weeks gestation of ([facility]) Z3A.23 3. Diabetes mellitus screening Z13.1 CBC Glucose tolerance, 1 hour CBC Glucose tolerance, 1 hour Assessment/Plan Return OB: Patient presents today for a routine obstetrics appointment. Patient is currently 23w2d . Patient states she is doing well but has complaints of being tired due to current . Pt was seen at [facility] on 08/29/2025 due to having painful abdominal pain and not feeling baby moving. [facility] evaluated the patient and was sent home with medication for a UTI. Pt is on Keflex for 7 days however, she was not taking medication as directed. Pt was taking only one pill a day instead of 1 pill twice aday. Pt is still complaining of abdominal pain. Patient has verbalizes frequent movement. labor precautions was discussed/given and patient was instructed to perform kick counts three times a day. Pt was given a h-hr glucose order to schedule at [facility] and pt is advised not to eat or drink anything after midnight. PVU. We will increase keflex to tid for 7 days and pyridium. Patient will also be referred to [facility] for another anatomy scan due to body habitus per reading of recent scan Orders Placed This Encounter Procedures CBC Glucose tolerance, 1 hour POCT urinalysis dipstick manually resulted Follow Up: Patient is to return to office in 3 week for routine OB appointment. Documented by Sybil Lucas MA on behalf of: LEAH Curran documented in this encounter Miscellaneous Notes * Addendum Note - Sybil Lucas MA - 08/31/2025 11:20 AM ESTAddended by: SYBIL LUCAS on: 08/31/2025 12:08 PM Modules accepted: Orders documented in this encounter Plan of Treatment DateTypeDepartmentCare Team (Latest Contact Info)Vxtnkgizflk95/08/2025 2:40 PM ESTRoutine [facility] Emma OBGYN [address] [place] [address] Jefferson Howard DO [address] [place] [address] NameTypePriorityAssociated DiagnosesOrder ScheduleCBCLabRoutine Diabetes mellitus screening Expected: 08/31/2025 (Approximate), Expires: 08/31/2026Glucose tolerance, 1 hour LabRoutine Diabetes mellitus screening Expected: 08/31/2025 (Approximate), Expires: 08/31/2026documented as of this encounter Procedures Procedure NamePriorityDate/TimeAssociated DiagnosisCommentsPOCT URINALYSIS LEICIJSHKegbljz69/12/2025 11:16 AM EST Second trimester ([facility]) documented in this encounter Results * (ABNORMAL) POCT urinalysis dipstick manually resulted (08/31/2025 11:16 AM EST)ComponentValueRef RangeTest MethodAnalysis TimePerformed AtPathologist SignatureColor, UADark AmberClarity, UAClearGlucose, UANegativeNegative - 1999(110) ++++ mg/dLBilirubin, UA2+Negative - 4(70) +++ mg/dLKetones, UA PositiveNegative - 160(16) ++++ mg/dLSpec Grav, UA1.0251 - 1.03Blood, UA NegativeNegative - 50 Lincoln/mcLpH, UA6.05 - 9Protein, UA1+Negative - 2000(20) ++++ mg/dLUrobilinogen, UA2.00.2 - 12 mg/dLLeukocytes, UA1+Negative - 500+++ Skyler/mcLNitrite, UANegativeNegative - PositiveSpecimen (Source)Anatomical Location / LateralityCollection Method / VolumeCollection TimeReceived Time Urine08/31/2025 11:16 AM EST Narrative Authorizing ProviderResult TypeResult StatusInova Women's Hospital TEST ENTER/EDIT ORDERABLESFinal Result documented in this encounter Visit Diagnoses Diagnosis Second trimester ([facility]) state, incidental 23 weeks gestation of ([facility]) Diabetes mellitus screening Screening for diabetes mellitus Urinary tract infection without hematuria, site unspecified documented in this encounter Care Teams Team MemberRelationshipSpecialtyStart DateEnd Date Manuel Schwartz MD [address] [place] [phone] PCP - [facility]03/02/24 Manuel Schwartz MD [address] [place] [address] PCP - [facility]07/20/24documented as of this encounter
--- OUTSIDE RECORDS SUMMARY | 2025-09-12 08:58 | XMS_ITS | Encounter Summary ---
Author Organization [facility] Address [address] [place] [address] Care Team Providers Care Special Delivery Mail Carrier Name Role Phone Manuel Schwartz MD Primary Care Provider [phone] Manuel Schwartz MD Unavailable Encounter Details DateTypeDepartmentCare Team (Latest Contact Info)Tfilejfqxvv38/12/2025amboo flowsheet [place] Emma WORLEY [address] [place] [address] Gia Agustin PA [address] [place], [place] [phone] Social History Tobacco UseTypesPacks/DayYears UsedDateSmoking Tobacco: NeverSmokeless Tobacco: NeverSocial Connection and Isolation PanelAnswerDate RecordedIn a typical week, how many times do you talk on the phone with family, friends, or neighbors?Twice a week03/02/2024How often do you get together with friends or relatives?Twice a week03/02/2024How often do you attend quaker or shinto services?Never 03/02/2024ctive Member of Clubs or OrganizationsNot [...] to strenuous exercise (like a brisk walk)?Patient gmyrgjpo55/14/2024On average, how many minutes do you engage in exercise at this level?Patient tsmpqres99/14/2024 Housing Stability Vital SignAnswerDate RecordedIn the last 12 months, was there a time when you were not able to pay the mortgage or rent on time?No03/02/2024In the last 12 months, how many places have you lived?In the last 12 months, was there a time when you did not have a steady place to sleep or slept in ashelter (including now)?No03/02/2024Estimated Date of Delivery EwvsypygQkd72/09/2026Based on Ultrasound, FHR- 136Sex and Gender Information ValueDate RecordedSex Assigned at BirthNot on fileLegal GiiRrhhsv25/15/2023 8:14 PM EDTGender IdentityNot on fileSexual OrientationNot on filedocumented as of this encounter Plan of Treatment DateTypeDepartmentCare Team (Latest Contact Info)Cvtbkqrfqhg76/08/2025 2:40 PM ESTRoutine [facility]BGYN [address] [place] [place] [address] Jefferson Howard DO [address] [place] [address] documented as of this encounter Visit Diagnoses Not on filedocumented in this encounter Care Teams Team MemberRelationshipSpecialtyStart DateEnd Date Manuel Schwartz MD [address] [place] [address] PCP - GeneralFamily Medicine03/02/24 Manuel Schwartz MD [address] [place] [address] [facility] CPC10documented as of this encounter
--- OUTSIDE RECORDS SUMMARY | 2025-09-12 08:58 | XMS_ITS | Clinical Summary ---
Author Organization [facility] Address [id number] [address] 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 10 tablet 4Active Additional Information Patient not taking.Reported on 08/23/2025 promethazine (PHENERGAN) 12.5 mg tablet Take 1 tablet (12.5 mg total) by mouth every 6 (six) hours as needed for nausea or vomiting.Active Encounters DateTypeDepartmentCare QhkfQcmschfwgwa80/17/2025bstract Maternal- Medicine at [facility] [address] [place] [phone] External, Scanning Provider 08/23/2025 7:25 PM EST - 08/23/2025 9:[address] [facility] [address] [place] [phone] Ny Lewis, [facility] Discharge Disposition: Home08/23/20258149Wxsifj55/04/2025 - 08/23/2025 7:[address] [facility] [address] [facility] [place] [phone] Discharge Disposition: ED Dismiss - Never Arrivedfrom [...] as a part of a household?No 5ChildcareAnswerDate BgessjicZfjjvjtbcLqobbzy86/11/2019EmploymentAnswer Date FxclalecVweayzzstjTglihqx55/11/2019Hunger ScreeningAnswerDate Recorded Within the past 12 months we worried whether our food would run out before we got money to buy more.Never True08/23/2025Within the past 12 months the food we bought just didn't last and we didn't have money to get more.Never True 08/23/2025Purpose - LifeAnswerDate RecordedPurpose and direction in lifeUnknown 1Estimated Date of YjqccxvjHscavnmiYxm63/09/2026Based on UltrasoundSex and Gender InformationValueDate RecordedSex Assigned at BirthNot on fileLegal UieTiikzh48/04/2015 6:13 PM EDTGender IdentityNot on fileSexual OrientationNot on file Last Filed Vital Signs Vital SignReadingTime TakenCommentsBlood Lggbaxkn731/8408/23/2025 7:34 PM EST Hyfhe62846 7:34 PM CVVKytilsotnuo66.7 ??C (98 ??F)08/23/2025 7:34 PM EST Respiratory Rsos6354 7:34 PM ESTOxygen Lmvlyqzjru74%04/14/2025 2:13 AM EDTInhaled Oxygen Concentration--Efcdeb227.5 kg (281 lb)08/23/2025 7:34 PM EST Pxtecb987.5 cm (5' 2 )08/23/2025 7:34 PM ESTBody Mass Index51.411 7:34 PM EST Plan of Treatment DateTypeDepartmentCare Team (Latest Contact Info)Pqhmmijwxjm01/04/2025 9:45 AM ESTAppointment Maternal Medicine [facility] [address] [place] [phone] Health MaintenanceDue DateLast DoneCommentsDepression Yatelfsza14/11/2013dult BMI Follow Up Plan2018Pap Smear2021TaP,Tdap and Td Vaccines (7 - Td or Tdap)/10/2012, 10/31/2004, 02/02/2002, Additional history exists Influenza Quxpwbj32/Tobacco Rlypmzymc29/dult BMI Cbpjybxzl74RSV ( or age 60+ yrs) (1 - 1-dose 75+ series)2075 Medical Devices Not on file Procedures Procedure NamePriorityDate/TimeAssociated DiagnosisCommentsEXTRA TUBES SST TOP Qjhappy1208/23/2025 8:24 PM EST EXTRA PDJPRWrhprxd08/04/2025 8:24 PM EST BASIC METABOLIC DABOHNDNS78/04/2025 8:20 PM EST CBC (NO DIFF)STAT110/23/2024 8:20 PM EST MHPGRHGLQQTJJG15/04/2025 8:03 PM EST from Last 3 Months Results * SST TOP (08/23/2025 8:24 PM EST)ComponentValueRef RangeTest MethodAnalysis TimePerformed AtPathologist SignatureExtra TubeAuto Umtljrij47/04/2025 10:01 PM ESTPROMEDICA ADVENTIST HEALTH TEHACHAPIpecimen (Source)Anatomical Location / LateralityCollection Method / VolumeCollection TimeReceived TimeBloodVenous blood / Vmwzdod6108/23/2025 8:24 PM EST08/23/2025 8:24 PM EST Narrative Authorizing ProviderResult TypeResult StatusKathljamilah Lewis [facility] BLOOD ORDERABLESFinal ResultPerforming OrganizationAddressCity/State/ZIP CodePhone Number [address] [place] [address], [place] * (ABNORMAL) CBC without diff (08/23/2025 8:20 PM EST)ComponentValueRef Range Test MethodAnalysis TimePerformed AtPathologist SignatureWBC8.94 - 11 X10^9/L 08/23/2025 8:32 PM ESTBUCYRUS COMMUNITY HOSPITALRBC Count3.62(L)3.8 - 5.2 X10^12/L110/23/2024 8:32 PM [facility] Zsoklpshvv84.6(L)11.7 - 15.5 g/dL08/23/2025 8:32 PM ESTBUCYRUS COMMUNITY HOSPITALHematocrit31.2(L)35 - 47 %08/23/2025 8:32 PM ESTBUCYRUS COMMUNITY HOSPITALMCV8680 - 100 fL08/23/2025 8:32 PM ESTBUCYRUS COMMUNITY HOSPITALMCH29.227 - 34 pg08/23/2025 8:32 PM ESTBUCYRUS COMMUNITY HOSPITALMCHC33.832 - 36 g/dL08/23/2025 8:32 PM ESTBUCYRUS COMMUNITY HOSPITALRDW13.511.5 - 15 %08/23/2025 8:32 PM [facility] C[facility]USPlatelet Iibso001263 - 450 X10^9/L110/23/2024 8:32 PM ESTBUCYRUS COMMUNITY HOSPITALMPV9.27 - 12 fL08/23/2025 8:32 PM EST [facility] HOSPITALpecimen (Source)Anatomical Location / LateralityCollection Method / VolumeCollection TimeReceived TimeBloodVenous blood / UnknownVenipuncture / Aoywidw4808/23/2025 8:20 PM EST08/23/2025 8:23 PM EST Narrative Authorizing ProviderResult TypeResult StatusKathljamilah Lewis [facility] BLOOD ORDERABLESFinal ResultPerforming OrganizationAddressCity/State/ZIP CodePhone Number [address] [place] [address], [place] * (ABNORMAL) Basic Metabolic Panel (08/23/2025 8:20 PM EST)ComponentValueRef RangeTest MethodAnalysis TimePerformed AtPathologist CjgoelvzyTHKDUC126358 - 146 mmol/L110/23/2024 8:37 PM ESTBUCYRUS COMMUNITY HOSPITALPOTASSIUM 3.73.5 - 5.0 mmol/L110/23/2024 8:37 PM ESTBUCYRUS COMMUNITY HOSPITAL PVGTWTIH34540 - 109 mmol/L110/23/2024 8:37 PM ESTBUCYRUS COMMUNITY HOSPITALCARBON AZSMYVO70(L)22 - 32 mmol/L110/23/2024 8:37 PM ESTBUCYRUS COMMUNITY HOSPITALANION NLU155 - 15 mmol/L110/23/2024 8:37 PM EST B[facility]UN[facility] HOSPITALBLOOD UREA WBVYXCTY08 - 23 mg/dL08/23/2025 8:37 PM [facility] CAMPUSCREATININE0.530.40 - 1.00 mg/dL 08/23/2025 8:37 PM [facility] C[facility]USComment:METHOD TRACEABLE TO IDMS GZGMAONVFFVZFDM723(H)65 - 99 mg/dL08/23/2025 8:37 PM EST B[facility] COMMUNITY HOSPITALCALCIUM8.3(L)8.5 - 10.5 mg/dL08/23/2025 8:37 PM [facility] CAMPUSEGFR Non-Race Dependent>90>=60 ml/min/1.73sq.m110/23/2024 8:37 PM [facility] Comment: eGFR not reported due to non-numeric value for Creatinine. Reported eGFR is based on the CKD-EPI 2020 equation that does not use a race coefficient. Specimen (Source)Anatomical Location / LateralityCollection Method / Volume Collection TimeReceived TimeBloodVenous blood / UnknownVenipuncture / Unknown 08/23/2025 8:20 PM EST08/23/2025 8:23 PM EST Narrative Authorizing ProviderResult TypeResult StatusKathleen Maribell Lewis [facility] BLOOD ORDERABLESFinal ResultPerforming OrganizationAddressCity/State/ZIP CodePhone Number [facility] [place] [address], [place] * (ABNORMAL) Urinalysis (08/23/2025 8:03 PM EST)ComponentValueRef RangeTest MethodAnalysis TimePerformed AtPathologist SignatureCOLORYellowYellow 08/23/2025 8:41 PM ESTPROMEDITORRANCE MEMORIAL MEDICAL CENTERTURBIDITYHazy(A)Clear 08/23/2025 8:41 PM ESTHOCKING VALLEY COMMUNITY HOSPITALPECIFIC GRAVITY1.020 1.003 - 1.7120008/23/2025 8:41 PM ESTPROJOHN DOUGLAS FRENCH CENTERNITRITE FjcqkomiBpczlnco53/04/2025 8:41 PM ESTBUCYRUS COMMUNITY HOSPITAL PH,URINE7.05.0 - 8.511 8:41 PM ESTBUCYRUS COMMUNITY HOSPITAL LEUKOCYTE BCFSOCAIMupewtdmPfspaymr99/04/2025 8:41 PM ESTBUCYRUS COMMUNITY HOSPITALPROTEINTrace(A)Rmhbutnf22/04/2025 8:41 PM ESTPROMEDITORRANCE MEMORIAL MEDICAL CENTERKETONES (URINE)ZnazidnbYrexeypn51/04/2025 8:41 PM EST [facility] COMMUNITY HOSPITALUROBILINOGEN>=8.0 eu/dL(A)0.2 eu/dL, 1.0 eu/dL08/23/2025 8:41 PM ESTPROJOHN DOUGLAS FRENCH CENTERBILIRUBIN (URINE)SyxwemuzXrqmtjdh76/04/2025 8:41 PM ESTBUCYRUS COMMUNITY HOSPITALBLOOD/PNSTetyoiivWjubnelz14/04/2025 8:41 PM ESTBUCYRUS COMMUNITY HOSPITALAMORPHOUS SEDIMENTPresent(A)None08/23/2025 8:41 PM EST [facility] COMMUN[facility] HOSPITALQUAMOUS ARIJEZEYTI28 - 511 8:41 PM ESTPROJOHN DOUGLAS FRENCH CENTERGLUCOSE (URINE)NegativeNegative, 250 mg/dL08/23/2025 8:41 PM ESTPROKAWEAH DELTA MEDICAL CENTERpecimen (Source)Anatomical Location / LateralityCollection Method / VolumeCollection TimeReceived TimeUrineUrine specimen collection, clean catch / Unknown 08/23/2025 8:03 PM EST08/23/2025 8:23 PM EST Narrative Authorizing ProviderResult TypeResult StatusKathljamilah Lewis [facility]-CNMURINE ORDERABLESFinal ResultPerforming OrganizationAddressCity/State/ZIP CodePhone Number [facility] [address] [place] [address], [place] from Last 3 Months Insurance Care Teams Team MemberRelationshipSpecialtyStart DateEnd Date Manuel Schwartz MD PCP - GeneralFamily Medicine01/21/19
--- OUTSIDE RECORDS SUMMARY | 2025-09-12 08:58 | XMS_ITS | Clinical Summary ---
Author Organization [facility] Address [address] [place] [address] Care Team Providers Care Express Manager Name Role Phone Manuel Schwartz MD Primary Care Provider [phone] Manuel Schwartz MD Unavailable Allergies Active AllergyReactionsCriticalityNoted QydlSencbxsyAooqrgqovroCbzwkwg79/15/2001 Other Reaction(s): Unknown Reaction Medications MedicationSigDispense QuantityRefillsLast FilledStart DateEnd DateStatus omeprazole (PriLOSEC) [address] capsule Indications:Gastroesophageal reflux disease, unspecified whether esophagitis presentTake 1 capsule (40 mg) by mouth in the morning and 1 capsule (40 mg) in the evening. Take before meals. 60 capsule 5Active ondansetron (Zofran) 4 MG tablet Indications:Right ovarian [...] as needed for nausea. 30 tablet 5Active cephalexin (Keflex) 500 MG capsule Indications:Urinary tract infection without hematuria, site unspecifiedTake 1 capsule (500 mg) by mouth Daily for 7 doses 7 capsule Expired phenazopyridine (Pyridium) 100 MG tablet Indications:Urinary tract infection without hematuria, site unspecifiedTake 1 tablet (100 mg) by mouth 3 (three) times a day as needed for bladder spasms for up to 3 days 10 tablet Expired Active Problems ProblemNoted DateDiagnosed DateRight sided bdzqtubh08/13/2024 Assessment & Plan (06/01/2024 1:53 PM EDT): Recent pain and treat with prednisone. Use flexeril PRN. Check x-ray and start PT. Rzbnrzgcaw83/10/2024 Assessment & Plan (04/28/2024 2:19 PM EDT): Concerned of possible and check labs. Major depressive disorder, recurrent episode, mild03/02/2024 Assessment & Plan (06/01/2024 1:53 PM EDT): Mild symptoms and letter for emotional support animal to patient. Gastroesophageal reflux disease without lusuwewnrpi48/14/2024 Assessment & Plan (06/01/2024 1:53 PM EDT): Symptoms controlled with omeprazole and continue. Assessment & Plan (04/28/2024 2:19 PM EDT): Symptoms controlled with omeprazole and continue. Mild intermittent asthma without dtafjserlzkm41/14/2024llergic rhinitis due to cowrbr0303/02/2024Morbid obesity due to excess cvrneevh04/14/2024 Assessment & Plan (06/01/2024 1:54 PM EDT): [...] for evaluation and possible endoscopy. Encounters DateTypeDepartmentCare DwwcJknnnrqxkat35/12/2025 11:20 AM ESTRoutine [facility] [address] [place] [address] Gia Agustin PA Second trimester ([facility]); 23 weeks gestation of ([facility]); Diabetes mellitus screening; Urinary tract infection without hematuria, site jspmvzfkfeu94/12/2025amboo flowsheet [facility] [address] [place] [address] Gia Agustin PA 08/18/2025Orders Only [facility] [address] [place] [address] Janneth Paul MA 08/10/2025 11:00 AM EDTAncillary Procedure [facility] [address] [place] [address] Screening, , for anatomic survey ([facility])08/02/2025 1:40 PM [place] [address] Jefferson Howard, DO Second trimester ([facility]); 19 weeks gestation of ([facility]); Screening, , for anatomic survey ([facility]); LGSIL of cervix of undetermined zxafxbjirgzg52/14/2025linisync Result Encounter [facility] External Department Unsolicited Jefferson Howard DO 08/02/2025amboo [place] [address] Peter HowardyDO 07/25/2025linisync Result Encounter NOMS External Department Unsolicited Gia Agustin PA 07/06/2025Telephone [facility] [address] [address] Janneth Paul MA 07/05/2025 2:00 PM EDTRoutine [facility] OBDAVID [address] [place] [address] Gia Agustin PA 15 weeks gestation of ([facility]); Second trimester ([facility]); Exposure to STD; Vaginal discharge; Zspqzp3107/05/2025External Result Encounter [facility] External Department Unsolicited Gia Agustin PA 07/05/2025amboo flowsheet [facility] [address] [address] Gia Agustin PA 07/04/20250200Bueimk36/08/2025Patient Outreach [facility] [address] [place] [address] Gia Hernandez LPN 06/24/2025bstract [facility] [address] [place] [address] Gia Hernandez LPN from Last 3 Months Social History Tobacco UseTypesPacks/DayYears UsedDateSmoking Tobacco: NeverSmokeless Tobacco: Never Tobacco Cessation:Counseling Given: Not Answered Social Connection and Isolation PanelAnswerDate RecordedIn a typical week, how many times do you talk on the phone with family, friends, or neighbors?Twice a week03/02/2024How often do you get together with friends or relatives?Twice a week03/02/2024How often do you attend orthodox or bahai services?Never 03/02/2024ctive Member of Clubs or OrganizationsNot [...] to strenuous exercise (like a brisk walk)?Patient rpmcbynu74/14/2024On average, how many minutes do you engage in exercise at this level?Patient kyckgjog57/14/2024 Housing Stability Vital SignAnswerDate RecordedIn the last 12 months, was there a time when you were not able to pay the mortgage or rent on time?No03/02/2024In the last 12 months, how many places have you lived?In the last 12 months, was there a time when you did not have a steady place to sleep or slept in [facility] (including now)?No03/02/2024Estimated Date of Delivery HilsilfiUmz91/09/2026ased on Ultrasound, FHR- 136Sex and Gender Information ValueDate RecordedSex Assigned at BirthNot on fileLegal EoiGktinl56/15/2023 8:14 PM EDTGender IdentityNot on fileSexual OrientationNot on file Last Filed Vital Signs Vital SignReadingTime TakenCommentsBlood Wraltahj538/7611 10:55 AM EST Tmyep98286/13/2024 1:21 PM TAVSmxgyjcfxsz48.6 ??C (97.8 ??F)06/01/2024 1:21 PM EDTRespiratory Vijb142706/01/2024 1:21 PM EDTOxygen Umybzumddm69%06/01/2024 1:21 PM EDTInhaled Oxygen Concentration--Bibocp011 kg (283 lb)08/31/2025 10:55 AM EST Djcngv078.9 cm (5' 1 )06/01/2024 1:21 PM EDTBody Mass Index53.4708 1:21 PM EDT Plan of Treatment DateTypeDepartmentCare Team (Latest Contact Info)Gdhtaoxezam39/08/2025 2:40 PM ESTRoutine [facility] [address] [address] Jefferson Howard, [address] [place] [address] Health MaintenanceDue DateLast DoneCommentsPneumococcal Vaccine: Pediatrics (0 to 5 Years) and At-Risk Patients (6 to 64 Years) (1 of 2 - PCV)2019COVID- 19 Vaccine (1 - 2024-26 season)2025Influenza Vaccine (#1)2025 Procedures Procedure NamePriorityDate/TimeAssociated DiagnosisCommentsURINARY TRACT INFECTION (HTRX)Gchlutf9908/31/2025 12:03 PM EST POCT URINALYSIS BDDDSKNIBekvedo16/12/2025 11:16 AM EST Second trimester ([facility]) US OB 14+ WEEKS ANATOMY AHVTXzzzqgq32/22/2025 11:57 AM EDT Screening, , for anatomic survey ([facility]) IGP,APTIMA HPV,AGE BKJVIodutui33/14/2025 1:40 PM EDT PAP TEST, UKLZLGKCQpbmpvj75/14/2025 12:00 AM EDTAFP, SERUM, OPEN SPINA BIFIDA Gvksfon8707/25/2025 12:10 PM EDT POCT URINALYSIS GVPBGSMTQdeiulv41/16/2025 2:19 PM EDT 15 weeks gestation of ([facility] Second trimester ([facility]) RECURRENT VAGINITIS (HTRX)Vvzlwtr8607/05/2025 2:05 PM EDT from Last 3 Months Results * URINARY TRACT INFECTION (HTRX) (08/31/2025 12:03 PM EST)ComponentValueRef RangeTest MethodAnalysis TimePerformed AtPathologist SignatureACINETOBACTER PWOOQGQQ727.961 - 24.689 ppm09/02/2025 8:22 AM ESTHealthTrackRx at [facility] ACINETOBACTER BAUMANIINot Ttpgkvjn20.961 - 24.689 ppm09/02/2025 8:22 AM EST [facility] at LabPortCITROBACTER FPRIRZFH572.000 - 32.015 ppm09/02/2025 8:22 AM ESTHealthTrackRx at LabPortCITROBACTER FREUNDIINot Ifjdudat26.000 - 32.015 ppm09/02/2025 8:22 AM ESTHealthTrackRx at LabPortENTEROBACTER AEROGENES, CJVBAHY854.000 - 32.290 ppm09/02/2025 8:22 AM ESTHealthTrackRx at LabPortENTEROBACTER AEROGENES, CLOACAENot Hpkwyosf58.000 - 32.290 ppm 09/02/2025 8:22 AM ESTHealthTrackRx at LabPortENTEROCOCCUS FAECALIS, FAECIUM0 26.000 - 33.043 ppm09/02/2025 8:22 AM ESTHealthTrackRx at LabPortENTEROCOCCUS FAECALIS, FAECIUMNot Xeprdoqt86.000 - 33.043 ppm09/02/2025 8:22 AM EST [facility] at LabPortESCHERICHIA EQFL259.000 - 28.500 ppm09/02/2025 8:22 AM ESTHealthTrackRx at LabPortESCHERICHIA COLINot Ampreoqp13.000 - 28.500 ppm 09/02/2025 8:22 AM ESTHealthTrackRx at LabPortKLEBSIELLA PNEUMONIAE, OXYTOCA0 23.000 - 31.865 ppm09/02/2025 8:22 AM ESTHealthTrackRx at LabPortKLEBSIELLA PNEUMONIAE, OXYTOCANot Zizmowcn04.000 - 31.865 ppm09/02/2025 8:22 AM EST [facility] at LabPortMORGANELLA YKLRFYQI499.961 - 24.689 ppm09/02/2025 8:22 AM ESTHealthTrackRx at LabPortMORGANELLA MORGANIINot Bhopnonu42.961 - 24.689 ppm09/02/2025 8:22 AM ESTHealthTrackRx at LabPortPROTEUS MIRABILIS, VULGARIS0 23.000 - 28.500 ppm09/02/2025 8:22 AM ESTHealthTrackRx at LabPortPROTEUS MIRABILIS, VULGARISNot Cphdhbdd34.000 - 28.500 ppm09/02/2025 8:22 AM EST [facility] at LabPortPSEUDOMONAS ISCQDUGVIM742.000 - 31.801 ppm09/02/2025 8:22 AM ESTHealthTrackRx at LabPortPSEUDOMONAS AERUGINOSANot Hewwfahs36.000 - 31.801 ppm09/02/2025 8:22 AM ESTHealthTrackRx at LabPortSTAPHYLOCOCCUS AUREUS0 26.000 - 31.595 ppm09/02/2025 8:22 AM ESTHealthTrackRx at [facility] STAPHYLOCOCCUS AUREUSNot Orbjfmcv31.000 - 31.595 ppm09/02/2025 8:22 AM EST [facility] at LabPortSTREPTOCOCCUS AGALACTIAE (GROUP B STREP)026.000 - 32.435 ppm09/02/2025 8:22 AM ESTHealthTrackRx at LabPortSTREPTOCOCCUS AGALACTIAE (GROUP B STREP)Not Ihhtzfls48.000 - 32.435 ppm09/02/2025 8:22 AM ESTHealthTrackRx at LabPortCANDIDA ALBICANS, PARAPSILOSIS, DAGDMRXJRL114.000 - 30.347 ppm09/02/2025 8:22 AM ESTHealthTrackRx at LabPortCANDIDA ALBICANS, PARAPSILOSIS, TROPICALISNot Lutwcdnb55.000 - 30.347 ppm09/02/2025 8:22 AM EST [facility]PortCANDIDA WEZRFFSE403.000 - 31.618 ppm09/02/2025 8:22 AM ESTHealthTrackRx at LabPortCANDIDA GLABRATANot Cwofzznq64.000 - 31.618 ppm 09/02/2025 8:22 AM ESTHealthTrackRx at LabPortCANDIDA ORDWCV625.000 - 30.873 ppm09/02/2025 8:22 AM ESTHealthTrackRx at LabPortCANDIDA KRUSEINot Detected 23.000 - 30.873 ppm11/ 8:22 AM ESTHealthTrackRx at LabPortSERRATIA DKWEGXAXJL769.000 - 31.581 ppm09/02/2025 8:22 AM ESTHealthTrackRx at [facility] SERRATIA MARCESCENSNot Ndjczoht01.000 - 31.581 ppm09/02/2025 8:22 AM EST [facility] at LabPortSTREPTOCOCCUS PYOGENES (GROUP A STREP)019.961 - 24.689 ppm09/02/2025 8:22 AM ESTHealthTrackRx at LabPortSTREPTOCOCCUS PYOGENES (GROUP A STREP)Not Wxkessys86.961 - 24.689 ppm09/02/2025 8:22 AM ESTHealthTrackRx at LabPortSTAPHYLOCOCCUS EPIDERMIDIS, HAEMOLYTICUS, LUGDUNENSIS, SAPROPHYTICUS (UWCAJ225.961 - 24.689 ppm09/02/2025 8:22 AM ESTHealthTrackRx at [facility] STAPHYLOCOCCUS EPIDERMIDIS, HAEMOLYTICUS, LUGDUNENSIS, SAPROPHYTICUS (URINANot Logswbps55.961 - 24.689 ppm09/02/2025 8:22 AM ESTHealthTrackRx at [facility] STAPHYLOCOCCUS EPIDERMIDIS, HAEMOLYTICUS, LUGDUNENSIS, SAPROPHYTICUS (URINA0 19.961 - 24.689 ppm09/02/2025 8:22 AM ESTHealthTrackRx at [facility] STAPHYLOCOCCUS EPIDERMIDIS, HAEMOLYTICUS, LUGDUNENSIS, SAPROPHYTICUS (URINANot Frpqoqjn72.961 - 24.689 ppm09/02/2025 8:22 AM ESTHealthTrackRx at [facility] Specimen (Source)Anatomical Location / LateralityCollection Method / Volume Collection TimeReceived DaaqVfeeb24/12/2025 12:03 PM EST09/02/2025 1:46 AM EST Narrative Authorizing ProviderResult TypeResult StatusAmy Vamsi LEIVA BLOOD ORDERABLES Final ResultPerforming OrganizationAddressCity/State/ZIP CodePhone Number [facility] [address] [address] * (ABNORMAL) POCT urinalysis dipstick manually resulted (08/31/2025 11:16 AM EST) Only the most recent of2 resultswithin the time period is included. ComponentValueRef RangeTest MethodAnalysis TimePerformed AtPathologist Signature Color, UADark AmberClarity, UAClearGlucose, UANegativeNegative - 1999(110) ++++ mg/dLBilirubin, UA2+Negative - 4(70) +++ mg/dLKetones, UAPositiveNegative - 160(16) ++++ mg/dLSpec Grav, UA1.0251 - 1.03Blood, UANegativeNegative - 50 [place]/mcLpH, UA6.05 - 9Protein, UA1+Negative - 2000(20) ++++ mg/dLUrobilinogen, UA 2.00.2 - 12 mg/dLLeukocytes, UA1+Negative - 500+++ Skyler/mcLNitrite, UANegative Negative - PositiveSpecimen (Source)Anatomical Location / LateralityCollection Method / VolumeCollection TimeReceived BdayMywyh13/12/2025 11:16 AM EST Narrative Authorizing ProviderResult TypeResult StatusAmy [facility] TEST ENTER/EDIT ORDERABLESFinal Result * US OB 14+ weeks anatomy scan (08/10/2025 11:57 [...] DOIMG OB US PROCEDURES Final Result * IGP,APTIMA HPV,AGE GDLN (08/02/2025 1:40 PM EDT)ComponentValueRef RangeTest MethodAnalysis TimePerformed AtPathologist SignatureAGE GDLN ACOG TESTINGNote. TBHComment: ?? TESTS ? RESULT ??FLAG ??UNITS ?REF RANGE ??LAB ?? Clinician Provided Cytology Information ?? Source.............Endocervix ?? Other.............. ?? No. of containers..01 ThinPrep Vial Age Algo ACOG Mela... ??21-29 ? 01 ?FLAG LEGEND: ?L-Low Normal,H-High Normal,LL-Alert Low,HH-Alert High <-Panic Low,>-Panic High,A-Abnormal,AA-Critical Abnormal Performed at: 01 =G ?[facility] [place] ?? [address] [place], [place] ??[phone] ?? Aleida Colon MD, IGP, RFX APTIMA HPV ASCUNote.TBHComment: ?? TESTS ? RESULT ??FLAG ??UNITS ?REF RANGE ??LAB DIAGNOSIS: ?02 ?? NEGATIVE FOR INTRAEPITHELIAL LESION OR MALIGNANCY. Specimen adequacy: ?02 ?? Satisfactory for evaluation. ??No endocervical component is identified. ?? An endocervical component is not commonly seen in the patient. Performed by: ? 02 ?? Cynthia Smith Engine Emission Technician (ASCP) . ? 02 Note: ? Note ?02 ?? The Pap smear is a screening test designed to aid in the ?? detection of premalignant and malignant conditions of the ?? uterine cervix. ??It is not a diagnostic procedure and ?? should not be used as the sole means of detecting cervical ?? cancer. ??Both false-positive and false-negative reports do ?? occur. Test Methodology: ? Note ?02 ?? This liquid based ThinPrep(R) pap test was interpreted ?? using the [employer](R) [employer](TM) Cervical Algorithm whole ?? slide imaging system. . ? 02 ?? The HPV DNA reflex criteria were not met with this specimen ?? result therefore, no HPV testing was performed. ?FLAG LEGEND: ?L-Low Normal,H-High Normal,LL-Alert Low,HH-Alert High <-Panic Low,>-Panic High,A-Abnormal,AA-Critical Abnormal Performed at: 02 WB ?[facility] [place] ?? [address] [facility] [place] ??[address] ?? Aleida Colon MD, Performed at: ??=G - [facility] [address] [place], [place] ??[phone] Policy Value Calculator: Aleida Colon MD, Phone: ??[phone] Performed at: ??WB - [facility] [address] [place], [place] ??[phone] Policy Value Calculator: Aleida Colon MD, Phone: ??[phone] Specimen (Source)Anatomical Location / LateralityCollection Method / Volume Collection TimeReceived Time08/02/2025 1:40 PM EDT1 8:41 PM EDT Narrative [facility] - 08/08/2025 4:09 PM EDT SPATULA-ALONE ENDOCERVIX Authorizing ProviderResult TypeResult StatusCorey Anita DOLAB BLOOD ORDERABLES Final ResultPerforming OrganizationAddressCity/State/ZIP CodePhone Number [facility] * PAP TEST, EXTERNAL (08/02/2025 12:00 AM [...] within 10 days. MATERNAL AGE AT EDD25.1. yrTBHRACECaucasian.DVWBERMDI832. lbsTBHINSULIN DEP DIABETESNo.TBHMULTIPLE GESTATIONNo.TBHAFP VALUE31.7. ng/mLTBHAFP MOM1.07.TBHOSBR RISK 1 CC4930.TBHINTERPRETATIONComment.TBHComment: Interpretation: Screen Negative This result is screen [...] Customer Services to discuss available options. ??The [employer] recommends amniocentesis be offered to women age 35 and older. COMMENT:Comment.TBHComment: Caitlin Palafox, Ph.D., [facility] Director References: Available Upon Request. Multiples Of Median Cutoffs ?For AFP Elevations Caro ?? 2.5 ? Black ?2.8 IDD ? 2.0 ? Twins ?4.5 ?Abbreviation Definitions IDD - Insulin Dep Diabetes OSBR - Open Spina Bifida Risk For further inquiries contact [facility] at [phone]. This test was developed and its performance characteristics determined by [employer]. It has not been cleared or approved by the Food and Drug Administration. Performed at: ??TG - [facility] [address] [place], [place] ??[phone] Policy Value Calculator: Leonidas Oneill [facility], Phone: ??[phone] Specimen (Source)Anatomical Location / LateralityCollection Method / Volume Collection TimeReceived Time07/25/2025 12:10 PM EDT1 12:14 PM EDT Narrative [facility] - 07/26/2025 11:07 PM EDT N N ULTRASOUND [id number] 1 15 N 1 Y 285 N N N N N White/ Authorizing ProviderResult TypeResult StatusAmy [facility] BLOOD ORDERABLES Final ResultPerforming OrganizationAddressCity/State/ZIP CodePhone Number [facility] * (ABNORMAL) RECURRENT VAGINITIS (HTRX) (07/05/2025 2:05 PM EDT)ComponentValue Ref RangeTest MethodAnalysis TimePerformed AtPathologist SignatureATOPOBIUM PQHJNJP634.961 - 24.9 ppm07/06/2025 7:10 AM EDTHealthTrackRx at [facility] ATOPOBIUM VAGINAENot Sfqbzpmy58.961 - 24.9 ppm07/06/2025 7:10 AM EDT [facility] CenterBVAB 2,3 (BACTERIAL VAGINOSIS ASSOCIATED BACTERIA 2, 3); MOBILUNCUS URQ653.961 - 24.689 ppm07/06/2025 7:10 AM EDTHealthTrackRx at [facility]BV[facility] 2,3 (BACTERIAL VAGINOSIS ASSOCIATED BACTERIA 2, 3); MOBILUNCUS SPP Not Sovbkhrm65.961 - 24.689 ppm07/06/2025 7:10 AM EDTHealthTrackRx at [facility] CYDNEY ALBICANS, PARAPSILOSIS, YBKSMNXORW176.000 - 30.347 ppm07/06/2025 7:10 AM EDTHealthTrackRx at [facility] CenterCANDIDA ALBICANS, PARAPSILOSIS, TROPICALISNot Ekcjxbnu81.000 - 30.347 ppm07/06/2025 7:10 AM EDTHealthTrackRx at [facility] CYDNEY JISCHLCH669.000 - 31.618 ppm07/06/2025 7:10 AM EDTHealthTrackRx at [facility] CenterCANDIDA GLABRATANot Punhcukk11.000 - 31.618 ppm07/06/2025 7:10 AM EDT [facility] CenterCANDIDA YNITMV456.000 - 30.873 ppm07/06/2025 7:10 AM EDTHealthTrackRx at [facility] CenterCANDIDA KRUSEINot Lpoqfoxw63.000 - 30.873 ppm 07/06/2025 7:10 AM EDTHealthTrackRx at [facility] CenterCHLAMYDIA CTPHHGRMFRV184.000 - 31.586 ppm07/06/2025 7:10 AM EDTHealthTrackRx at [facility] CenterCHLAMYDIA TRACHOMATIS Not Dzwwftqq10.000 - 31.586 ppm07/06/2025 7:10 AM EDTHealthTrackRx at [facility] GARDNERELLA NGCDALURI89.049(A)19.961 - 24.689 ppm07/06/2025 7:10 AM EDT [facility] CenterGARDNERELLA VAGINALISDetected(A)19.961 - 24.689 ppm 07/06/2025 7:10 AM EDTHealthTrackRx at [facility] CenterMEGASPHAERA (TYPES 1, 2)019.961 - 24.689 ppm07/06/2025 7:10 AM EDTHealthTrackRx at LabPortMEGASPHAERA (TYPES 1, 2)Not Rfosfyav23.961 - 24.689 ppm07/06/2025 7:10 AM EDTHealthTrackRx at LabPortNEISSERIA ZMFHNPLAMDI638.000 - 32.587 ppm07/06/2025 7:10 AM EDT [facility] CenterNEISSERIA GONORRHOEAENot Irekojbm57.000 - 32.587 ppm 07/06/2025 7:10 AM EDTHealthTrackRx at LabPortTRICHOMONAS UXLSYVKMK813.000 - 31.995 ppm07/06/2025 7:10 AM EDTHealthTrackRx at LabPortTRICHOMONAS VAGINALIS Not Dototwox66.000 - 31.995 ppm07/06/2025 7:10 AM EDTHealthTrackRx at [facility] MYCOPLASMA JJOEXDVJWZ057.961 - 24.689 ppm07/06/2025 7:10 AM EDTHealthTrackRx at [facility] CenterMYCOPLASMA GENITALIUMNot Axosxuoh68.961 - 24.689 ppm07/06/2025 7:10 AM EDTHealthTrackRx at [facility] CenterTET B, TET M23.864(A)23.000 - 27.500 ppm 07/06/2025 7:10 AM EDTHealthTrackRx at [facility] CenterTET B, TET MDetected(A)23.000 - 27.500 ppm07/06/2025 7:10 AM EDTHealthTrackRx at [facility] CenterSpecimen (Source) Anatomical Location / LateralityCollection Method / VolumeCollection Time Received GobgFvdmpg03/16/2025 2:05 PM EDT07/06/2025 1:36 AM EDT Narrative Authorizing ProviderResult TypeResult StatusAmy Vamsi LEIVA BLOOD ORDERABLES Final ResultPerforming OrganizationAddressCity/State/ZIP CodePhone Number [facility] [address] [address] from Last 3 Months Insurance Care Teams Team MemberRelationshipSpecialtyStart DateEnd Date Manuel Schwartz MD [address] [place] [phone] PCP - [facility]03/02/24 Manuel Schwartz MD [address] [place] [phone] PCP - [facility]07/20/24
--- OUTSIDE RECORDS SUMMARY | 2025-09-12 08:58 | XMS_ITS | Encounter Summary ---
Author Organization [facility] Address [id number] [address] [place] [address] Care Team Providers Care Pulmonary Function Technician Name Role Phone Manuel Schwartz MD Primary Care Provider Encounter Details DateTypeDepartmentCare Team (Latest Contact Info)Cysalltnpqj37/17/2025bstract Maternal- Medicine at [facility] [address] [place] [address] External, Scanning Provider Social History Tobacco UseTypesPacks/DayYears UsedDateSmoking Tobacco: NeverSmokeless [...] as a part of a household?No 08/23/2025hildcareAnswerDate JefapdioDxbvvfndsMfkajjf54/11/2019EmploymentAnswer Date AjevajxrMzlwiynqjjWvsphbj15/11/2019Hunger ScreeningAnswerDate Recorded Within the past 12 months we worried whether our food would run out before we got money to buy more.Never True08/23/2025Within the past 12 months the food we bought just didn't last and we didn't have money to get more.Never True 08/23/2025Purpose - LifeAnswerDate RecordedPurpose and direction in lifeUnknown 1Estimated Date of WqnofsltOkzojweoFoh32/09/2026Based on UltrasoundSex and Gender InformationValueDate RecordedSex Assigned at BirthNot on fileLegal ZejVjujap93/04/2015 6:13 PM EDTGender IdentityNot on fileSexual OrientationNot on filedocumented as of this encounter Plan of Treatment DateTypeDepartmentCare Team (Latest Contact Info)Hkpjlabwabk24/04/2025 9:45 AM ESTAppointment [facility]aternal [facility] [address] [facility] [address] [place] [address] documented as of this encounter Visit Diagnoses Not on filedocumented in this encounter Care Teams Team MemberRelationshipSpecialtyStart DateEnd Date Manuel Schwartz MD PCP - GeneralFamily Medicine01/21/19documented as of this encounter
--- OUTSIDE RECORDS SUMMARY | 2025-09-12 08:58 | XMS_ITS | Encounter Summary ---
Author Organization [facility] Address [address] [place] [address] Care Team Providers Care Devops Consultant Name Role Phone Manuel Schwartz MD Primary Care Provider [phone] Manuel Schwartz MD Unavailable Encounter Details DateTypeDepartmentCare Team (Latest Contact Info)Vnxzcqxfnoa86/14/2025linisync Result Encounter [facility] Unsolicited Jefferson Howard, [address] [place], [place] [id number] Social History Tobacco UseTypesPacks/DayYears UsedDateSmoking Tobacco: NeverSmokeless Tobacco: NeverSocial Connection and Isolation PanelAnswerDate RecordedIn a typical week, how many times do you talk on the phone with family, friends, or neighbors?Twice a week03/02/2024How often do you get together with friends or relatives?Twice a week03/02/2024How often do you attend taoist or orthodox services?Never 03/02/2024ctive Member of Clubs or OrganizationsNot [...] to strenuous exercise (like a brisk walk)?Patient hmcfdrqi49/14/2024On average, how many minutes do you engage in exercise at this level?Patient samycwtc77/14/2024 Housing Stability Vital SignAnswerDate RecordedIn the last 12 months, was there a time when you were not able to pay the mortgage or rent on time?No03/02/2024In the last 12 months, how many places have you lived?In the last 12 months, was there a time when you did not have a steady place to sleep or slept in [facility] (including now)?No03/02/2024Estimated Date of Delivery TghiwzypUzc43/09/2026ased on Ultrasound, FHR- 136Sex and Gender Information ValueDate RecordedSex Assigned at BirthNot on fileLegal ArdEicktg57/15/2023 8:14 PM EDTGender IdentityNot on fileSexual OrientationNot on filedocumented as of this encounter Plan of Treatment DateTypeDepartmentCare Team (Latest Contact Info)Xmxaxcwedpo06/08/2025 2:40 PM ESTRoutine [facility] [address] [place] [address] Jefferson Howard, [address] [place] [address] documented as of this encounter Procedures Procedure NamePriorityDate/TimeAssociated DiagnosisCommentsIGP,APTIMA HPV,AGE QCWQCowbpuf10/14/2025 1:40 PM EDT documented in this encounter Results * IGP,APTIMA HPV,AGE GDLN (08/02/2025 1:40 PM EDT)ComponentValueRef RangeTest MethodAnalysis TimePerformed AtPathologist SignatureAGE GDLN ACOG TESTINGNote. TBHComment: ?? TESTS ? RESULT ??FLAG ??UNITS ?REF RANGE ??LAB ?? Clinician Provided Cytology Information ?? Source.............[facility] ?? Other.............. ?? No. of containers..01 ThinPrep Vial Age Algo ACOG Mela... ??-29 ? 01 ?FLAG LEGEND: ?L-Low Normal,H-High Normal,LL-Alert Low,HH-Alert High <-Panic Low,>-Panic High,A-Abnormal,AA-Critical Abnormal Performed at: 01 =G ?[facility] ?? [address] [place] ??[phone] ?? Aleida Colon MD, IGP, RFX APTIMA HPV ASCUNote.TBHComment: ?? TESTS ? RESULT ??FLAG ??UNITS ?REF RANGE ??LAB DIAGNOSIS: ?02 ?? NEGATIVE FOR INTRAEPITHELIAL LESION OR MALIGNANCY. Specimen adequacy: ?02 ?? Satisfactory for evaluation. ??No endocervical component is identified. ?? An endocervical component is not commonly seen in the patient. Performed by: ? 02 ?? Cynthia Smith Spike Machine Feeder (ASCP) . ? 02 Note: ? Note [...] pap test was interpreted ?? using the Tinypay.me(R) Genius(TM) Cervical Algorithm whole ?? slide imaging system. . ? 02 ?? The HPV DNA reflex criteria were not met with this specimen ?? result therefore, no HPV testing was performed. ?FLAG LEGEND: ?L-Low Normal,H-High Normal,LL-Alert Low,HH-Alert High <-Panic Low,>-Panic High,A-Abnormal,AA-Critical Abnormal Performed at: 02 WB ?[facility] ?? [address] [place], [place] ??[address] ?? Aleida Colon MD, Performed at: ??=G - [facility] ??[id number] Customer Account Manager: Aleida Colon MD, Phone: ??[phone] Performed at: ??WB - [facility] ??[id number] Customer Account Manager: Aleida Colon MD, Phone: ??[phone] Specimen (Source)Anatomical Location / LateralityCollection Method / Volume Collection TimeReceived Time08/02/2025 1:40 PM EDT1 8:41 PM EDT Narrative [facility] - 08/08/2025 4:09 PM EDT SP[facility]ULA-AL[facility] ENDOCERVIX Authorizing ProviderResult TypeResult StatusCorey Anita DOLAB BLOOD ORDERABLES Final ResultPerforming OrganizationAddressCity/State/ZIP CodePhone Number [facility] documented in this encounter Visit Diagnoses Not on filedocumented in this encounter Care Teams Team MemberRelationshipSpecialtyStart DateEnd Date Manuel Schwartz MD [address] [place] [phone] PCP - [facility]03/02/24 Manuel Schwartz MD [address] [place] [phone] PCP - [facility]07/20/24documented as of this encounter
--- OUTSIDE RECORDS SUMMARY | 2025-09-12 09:00 | XMS_ITS | CCD ---
Author Organization [facility] Care Team Providers Care Frame Changer Name Role Phone DEMETRIOC, DR WILLS Attending [...] NADERER, DR MANUEL Souza Primary Care Unavailable HEMANTH, KRISHNA Attending Unavailable HEMANTH, KRISHNA Admitting Unavailable HEMANTHKRISHNA Consulting Unavailable NADERER, DR MANUEL Souza Primary Care Unavailable HEMANTH, KRISHNA Attending Unavailable HEMANTH, KRISHNA Admitting Unavailable NADERER, DR MANUEL Souza [...] GAN Consulting Unavailabl e ZIEBER, DR MYLENE iSmpson Consulting Unavailable NADERER, DR MANUEL Souza Primary Care Unavailable KARASIK ., DR GAN Attending Unavailabl e KARASIK ., DR GAN Admitting Unavailabl e KARASIK ., DR GAN Consulting Unavailabl e ZIEBER, DR MYLENE Simpson Consulting Unavailable ANITA ., DR ANDREA Attending Unavailable OLYMPIA, DR AISHWARYA Luis Consulting Unavailable NADERER, DR [...] Unavailable Lana MATSON, Manuel Primary Care Provider [phone] Mir Silva MD Attending Provider Manuel Noel MD Primary Care Provider Manuel Noel MD Unavailable Manuel Noel MD Primary Care Provider Krishna Saxena MD Attending Provider Jefferson Howard DO Attending Provider Manuel Noel MD Primary Care Provider Manuel Nole MD Unavailable Manuel Noel MD Unavailable MANUEL NOEL Primary Care Unavailable MYLENE SAMPSON Attending Unavailable NADERER, MANUEL Primary Care Unavailable MAO PETERSEN Attending Unavailable NADERER, MANUEL Primary Care Unavailable FRIES, WONG S Admitting Unavailable FRIES, WONG S Attending Unavailable MANUEL NOEL Primary Care Unavailable Tae ([facility]) Bello BENTON Attending Provider [phone] Hay ([facility]), Bello Bal Admitting Unavailable Hay ([facility]), Bello Bal Attending Unavailable Manuel Noel Primary Care Unavailable Hemanth, Krishna Cao Admitting Unavailable Hemanth, Krishna Cao Attending Unavailable Anita, Jefferson Admitting Unavailable Anita, Jefferson Attending Unavailable NadereManuel simpson Primary Care Unavailable DiMir alanis Admitting Unavailable DittMir moses Attending Unavailable ANITA, JEFFERSON Attending Unavailable ANITA, JEFFERSON Attending Unavailable VAMSI, GIA Attending Unavailable ANITA, JEFFERSON Attending Unavailable ANITA, JEFFERSON Attending Unavailable ANITA, JEFFERSON Attending Unavailable VAMSIGIA LOUIE Attending Unavailable ANITA, JEFFERSON Attending Unavailable ANITA, JEFFERSON Referring Unavailable GIA MAYO Attending Unavailable Allergies Allergy ClassificationReported Allergen(s)Allergy TypeDate of OnsetReaction(s) Facility (2 sources)Penicillins; Translations: [PENICILLINS]Drug allergy (disorder) 03-60-3910Hxm [facility] Repository (20 sources)PenicillinsDrug Uqdpgreuxnm45-58-1221WpruqdbKKKZ Healthcare (1 source)PenicillinsDrug allergy (disorder)69-47-0700YwxzausatLake [facility] Repository Medications Current Medications MedicationDrug Class(es)DatesSig (Normalized)Sig (Original)200 actuat albuterol 0.09 mg/actuat dry powder inhaler (16 sources)beta2-Adrenergic AgonistStart: 93-70-1961Mojuc: 02-27-2024 End: 21-23-6250jodj 2 puff(s) by inhalation every four hoursalbuterol HFA 90 mcg/act inhaler Indications: Mild intermittent intrinsic asthma without status asthmaticus without complication ([facility]) Inhale 2 puffs every 4 (four) hours if needed for shortness of breath 18 g 3 02/27/2024 12/22/2024 Discontinued Start: 12-12-2021 End: 53-99-7119Cjgbqmlre Sulfate (Ventolin Hfa) 90 mcg/actuation HFA aerosol inhaler Discontinued 2 INH KLAPASWMAHC3S as needed for sob December 12, 2021 12:00am August 24, 2024 9:32ammeclizine hydrochloride 25 mg oral tablet (4 sources)AntiemeticStart: 79-77-7778fqeantauum 40 mg delayed release oral capsule (20 sources)Proton Pump InhibitorStart: 03-02-2024 End: 26-70-5262tvqb 1 capsule by mouth in the morningomeprazole (PriLOSEC) [address] capsule Indications: Gastroesophageal reflux disease, unspecified whether esophagitis present Take 1 capsule (40 mg) by mouth in the morning and 1 capsule (40 mg) in the evening. Take before meals. 60 capsule 5 05/05/2025 ActiveStart: 12-14-2021 End: 46-02-7963mxrk 1 capsule by mouth once dailyOmeprazole 20 mg Capsule,Delayed Release(Dr/Ec) Discontinued 20 MG PO Daily 30 30 0 December 14, 2021 12:00am September 07, 2024 1:33pmStart: 11-20-2017 End: 59-03-9215Dtgusybsnq 20 mg Capsule,Delayed Release(Dr/Ec) Discontinued 20 MG PO as needed for Acne November 20, 2017 12:00am December 12, 2021 2:38pm ondansetron 4 mg oral tablet (20 sources)Serotonin-3 Receptor AntagonistStart: 11-11-2024 End: 29-88-3921jdys 1 tablet by mouth every six hours [...] hydrochloride 12.5 mg oral tablet (20 sources)PhenothiazineStart: 09-30-3077dzgh 1 tablet by mouth every six hours as needed for nausea and vomiting and nausea and nauseapromethazine (Phenergan) 12.5 MG tablet Indications: Nausea Take 1 tablet (12.5 mg) by mouth every 6 (six) hours if needed for nausea or vomiting for up to 30 doses Take 1 tablet by mouth every 6 hours as needed for nausea. 30 tablet 2 07/05/2025 ActiveStart: 34-03-7286mmfi 1 tablet by mouth every six hours as needed for nausea and vomiting End: 04-13-6564yjlayniudejr (Phenergan) 12.5 MG tablet Take by mouth 05/05/2025 Discontinuedsucralfate 1000 mg oral tablet (3 sources)Aluminum ComplexStart: 11-18-6941jsjp 1 tablet by mouth twice daily Completed/Discontinued Medications MedicationDrug Class(es)DatesSig (Normalized)Sig (Original)ARIPiprazole 2 mg oral tablet (4 sources)Atypical AntipsychoticStart: 01-26-2019 End: 93-61-6498yrof 1 tablet by mouth once dailyAripiprazole 2 mg Tablet Discontinued 2 MG PO Daily 14 14 0 January 25, 2019 11:00pm December 12, 2021 2:38pmcyclobenzaprine hydrochloride 10 mg oral tablet (4 sources)Muscle RelaxantStart: 06-01-2024 End: 84-67-9953gcfy 1 tablet by mouth three times daily as needed for muscle spasmscyclobenzaprine (Flexeril) 10 MG tablet Indications: Right sided sciatica Take 1 tablet (10 mg) by mouth 3 (three) times a day as needed for muscle spasms 30 tablet 06/01/2024 11/11/2024 Discontinued(Other)Drospirenone-Ethinyl Estradiol (4 sources)Progestin, EstrogenStart: 12-12-2021 End: 72-32-6265thtb 1 tablet by mouth once dailyDrospirenone-Ethinyl Estradiol 3-0.03 mg tablet Discontinued 1 TAB PO Daily December 12, 2021 1:00am August 24, 2024 10:33amStart: 12-12-2021 End: 88-86-2541whwg 1 tablet by mouth once dailyDrospirenone-Ethinyl Estradiol 3-0.03 mg tablet Discontinued 1 TAB PO Daily December 12, 2021 12:00am August 24, 2024 9:33amDULoxetine 30 mg delayed release oral capsule (4 sources)Serotonin and Norepinephrine Reuptake InhibitorStart: 12-14-2021 End: 64-58-3246vfjo 1 capsule by mouth once daily at bedtimeDuloxetine 30 mg Capsule,Delayed Release(Dr/Ec) Discontinued 30 MG PO Daily at bedtime 30 30 0 December 14, 2021 12:00am August 24, 2024 9:32amergocalciferol 1.25 mg oral capsule (4 sources)Provitamin D2 CompoundStart: 01-26-2019 End: 73-68-6864Fegbydtklhotnd (Vitamin D2) 50,000 unit Capsule Discontinued 93952 UNIT PO Sa@0900 2 14 0 January 25, 2019 11:00pm December 12, 2021 2:38pm ethinyl estradiol 0.035 mg / norgestimate 0.25 mg oral tablet (9 sources)Progestin, EstrogenStart: 12-22-2024 End: 59-06-3533uwqe 1 tablet by mouth once daily, then take 1 tablet by mouth once dailynorgestimate-ethinyl estradiol (Sprintec 28) 0.25-35 MG-MCG tablet Indications: control counseling Take 1 tablet by mouth Daily for 28 days Take 1 tablet by mouth daily 28 tablet 11 12/22/2024 04/27/2025 Discontinued (Therapy completed)sertraline 50 mg oral tablet (4 sources)Serotonin Reuptake InhibitorStart: 01-26-2019 End: 17-57-2466oazn 1 tablet by mouth once dailySertraline 50 mg Tablet Discontinued 50 MG PO Daily 14 14 0 January 25, 2019 11:00pm December 12, 2021 2:38pm Problems Active Problems Problem ClassificationProblemDateDocumented DateEpisodic/ChronicAcute posthemorrhagic anemia (1 source)Acute posthemorrhagic anemia; Translations: [ACUTE POSTHEMORRHAGIC ANEMIA]Onset: 56-58-5565IhkptodaBbfdalbwqpwscg/social admission (2 sources)Patient encounter status; Translations: [Person consulting for explanation of examination or test findings]54-63-4593MyviwhvjVyxnwz (20 sources)Mild intermittent asthma; Translations: [Mild intermittent asthma, uncomplicated]Onset: 273675-27-8052UsbzrndMtbovd of cervix (3 sources)Cervical intraepithelial neoplasia grade 1; Translations: [Low grade squamous intraepithelial lesion on cytologic smear of cervix (LGSIL)]01-17-2025 EpisodicContraceptive and procreative management (3 sources)Subcutaneous contraceptive implant present; Translations: [Encounter for surveillance of implantable subdermal contraceptive]23-46-7861Jbxsnpwh Esophageal disorders (20 sources)Gastroesophageal reflux disease; Translations: [Gastro-esophageal reflux disease without esophagitis]Onset: 539340-20-6037PqbfmaaYhubefmjkl disorders (3 sources)Esophagitis; Translations: [Esophagitis]19-07-1048Aftjrlha Immunizations and screening for infectious disease (4 sources)Encounter for screening for infections with a predominantly sexual mode of transmission; Translations: [Contact with and (suspected) exposure to infections with a predominantly sexual mode of transmission]Onset: 06-10-2022 34-31-7079DivvksgdIbesyyneh (1 source)Influenza due to other identified influenza virus with other respiratory manifestations; Translations: [FLU D/T OTH ID FLU VIR OTH RSP MANF] Onset: 74-77-9023TepzykiaGchjshujf disorders (20 sources)Irregular menstruation, unspecified; Translations: [Amenorrhea] Onset: 70-12-1529QcwoaacUjdf disorders (20 sources)Recurrent major depression; Translations: [Major depressive disorder, recurrent, unspecified]Onset: 428725-49-5085OwnuiexIxbzsc and vomiting (12 sources)Nausea; Translations: [Nausea]41-79-1877YixaaddsLsyqn complications of ; puerperium affecting management of mother (1 source)Obesity complicating childbirth; Translations: [OBESITY COMPLICATING CHILDBIRTH]Onset: 38-35-1561WhxnfbjGsiqs complications of ; puerperium affecting management of mother (1 source)Anemia of the puerperium; Translations: [ANEMIA OF THE PUERPERIUM] Onset: 39-57-9956WtyfkloOyrxk complications of (2 sources)Obesity complicating , third trimester; Translations: [OBESITY COMP THIRD TRI]Onset: 50-39-0405FoopciiGmvvh complications of (4 sources) related conditions, unspecified, unspecified trimester; Translations: [ RELATED COND UNS UNS TRI]Onset: 39-76-2468WbzmixdtHlrhr complications of (1 source)Diseases of the respiratory system complicating , third trimester; Translations: [DISEASESRESP SYS COMP PREG 3RD TRI]Onset: 09-24-2022 EpisodicOther complications of (1 source)Other specified related conditions, unspecified trimester; Translations: [Other specifiedpregnancy related conditions, unspecified trimester]Onset: 16-60-3878OmpcbvnqEgokd ear and sense organ disorders (3 sources)Otalgia, left ear; Translations: [OTALGIA LEFT EAR]Onset: 09-22-2022 EpisodicOther endocrine disorders (5 sources)Polycystic ovary syndrome; Translations: [Polycystic ovarian syndrome]37-56-3873FoiquqfPhsms female genital disorders (2 sources)Vaginal discharge; Translations: [Other specified noninflammatory disorders of vagina]61-16-2938IyqcqituXybky gastrointestinal disorders (4 sources)Constipation; Translations: [Constipation, unspecified]01-21-2019 EpisodicOther gastrointestinal disorders (1 source)Constipation, unspecified; Translations: [Constipation, unspecified] 35-18-1166UokunymeQwaur gastrointestinal disorders (1 source)Diarrhea, unspecified; Translations: [Diarrhea, unspecified]Onset: 13-10-5558EcwavrzuPtgux nutritional; endocrine; and metabolic disorders (20 sources)Morbid obesity; Translations: [Morbid (severe) obesity due to excess calories]Onset: 879859-78-3795GvtyatjAngkd and delivery including normal (20 sources)Single live ; Translations: [Encounter for supervision of other normal , third trimester]Onset: 89-38-6102SvmnytvaTcwbp screening for suspected conditions (not mental disorders or infectious disease) (20 sources)Encounter for screening for malignant neoplasm of cervix; Translations: [Encounter for other specified screening]Onset: 75-56-8109WqdanjouYgufz upper respiratory disease (20 sources)Allergic rhinitis due to pollen; Translations: [Allergic rhinitis due to pollen]Onset: 701952-90-5715WfrysldPvankx media and related conditions (1 source)Unspecified nonsuppurative otitis media, bilateral; Translations: [UNS NONSUPPURATIVE OTITIS MEDIA OSCAR]Onset: 04-33-9208OzrfehajAadpive cyst (5 sources)Cyst of right ovary; Translations: [Unspecified ovarian cyst, right side]69-92-5773WryhnadfMzytswwx codes; unclassified (1 source)38 weeks gestation of ; Translations: [38 WEEKS GESTATION OF ]Onset: 82-98-0805VakukyhwYpuktykj codes; unclassified (1 source)29 weeks gestation of ; Translations: [29 WEEKS GESTATION OF ]Onset: 94-35-0747CwdukvdgBlimufsm codes; unclassified (2 sources)Gestation period, 11 weeks; Translations: [11 weeks gestation of ]98-94-0660BdnlxwjlCbtmiepb codes; unclassified (2 sources)Gestation period, 15 weeks; Translations: [15 weeks gestation of ]48-68-2599IolkkorvXscztkfd codes; unclassified (2 sources)Gestation period, 19 weeks; Translations: [19 weeks gestation of ]36-41-7319UdjpsdspHlwcknlm codes; unclassified (2 sources)Gestation period, 23 weeks; Translations: [23 weeks gestation of ]71-90-1314LpnyhdmbWhullff disorders (1 source)Disorder of thyroid gland; Translations: [Disorder of thyroid, unspecified]19-99-7588BcogkmszOknbrskxxnyy (2 sources)[facility] ; Translations: [[facility] DIS/COND COMPL ]Onset: 21-21-8378Bixcesgcgdri (1 source)STOMACH PAIN, DIARRHEAOnset: 08-28-2024 Past or Other Problems Problem ClassificationProblemDateDocumented DateEpisodic/ChronicAbdominal pain (20 sources)Indigestion; Translations: [Epigastric pain]Onset: 03-02-2024 Resolved: 157327-45-7608ZlvpfjzhRegmvboymttgx gastroenteritis (1 source)Noninfective gastroenteritis and colitis, unspecified; Translations: [Noninfective gastroenteritis and colitis, unspecified]Onset: 95-47-2667Hximgocu Other complications of (4 sources)Abnormal ultrasonic finding on screening of mother; Translations: [ABNORM US SCREEN MOTHER]Onset: 54-68-3908Cmyucbpl Residual codes; unclassified (1 source)26 weeks gestation of ; Translations: [26 WEEKS GESTATION OF ]Onset: 90-79-0600MdyroqvpQwdmnqbx codes; unclassified (1 source)18 weeks gestation of ; Translations: [18 WEEKS GESTATION OF ]Onset: 09-90-9492ItbbmglgJjumhvze codes; unclassified (1 source)Less than 8 weeks gestation of ; Translations: [< 8 WEEKS GESTATION ]Onset: 69-70-4687TvobmkmrDkwldrrhkkc; intervertebral disc disorders; other back problems (20 sources)Cervicalgia; Translations: [Torticollis]Onset: 97-30-9228Qkygkdch Results Test NameValueInterpretationReference RangeFacilityUrinalysis macro (dipstick) panel (U)on 55-53-1262Gmnsfzzap, UA2+Negative - 4(70) +++ mg/dLNOWI Healthcare Blood, UANegativeNegative - 50 [place]/mcLNOWI HealthcareClarity, UAClearNOMS HealthcareColor, UADark AmberNOWI HealthcareGlucose, UANegativeNegative - 2000(110) ++++ mg/dLNOWI HealthcareInterpretation and review of laboratory resultsAbnormalNOWI HealthcareKetones, UAPositiveNegative - 160(16) ++++ mg/dL NOMS HealthcareLeukocytes, UA1+Negative - 500+++ [place]yler/mcLNOWI HealthcareNitrite, UANegativeNegative - PositiveNOMS HealthcarepH, UA6.05 - 9NOMS Healthcare Protein, UA1+Negative - 2000(20) ++++ mg/dLNOWI HealthcareSpec Grav, UA1.0251 - 1.03NOWI HealthcareUrobilinogen, UA2.00.2 - 12 mg/dLNOWI HealthcareNOMS HealthcareBasophils Auto (Bld) [#/Vol]Ordered By: Bello Marks ([place]) on 00-46-5068Gdzgisugj (Bld) [#/Vol]0.0 10 3/uL0.0-0.1FOhioHealthBasophils/100 WBC Auto (Bld)Ordered By: Bello Marks ([place]) on 08-29-2025 Basophils/100 WBC (Bld)0.5 %0.2-2.0[facility] Eosinophils/100 WBC Auto (Bld)Ordered By: (Salma) Bello Marks on 08-29-2025 Eosinophils/100 WBC (Bld)0.7 %Low0.9-7.0[facility] Erythrocyte distribution width Auto (RBC) [Ratio]Ordered By: (Salma) Bello Marks on 79-46-3092Logbrkphvzs distribution width (RBC) [Ratio]13.1 %11.0-15.0 [facility] WestFine granular cast count in urine sediment by microscopy (number/low power field )Ordered By: (Salma) Bello Marks on 17-35-6446Fiwv Granular Casts LM.LPF (Urine sed) [#/Area]RARELake County Memorial Hospital - WestGlobulin Calc (S) [Mass/Vol]Ordered By: (Salma) Bello Marks on 26-45-4895Pgjrmmyv (S) [Mass/Vol]4.3 g/dLLake County Memorial Hospital - West Glomerular filtration rate (GFR) estimation in non- AmericanOrdered By: (Salma) Bello Marks on 43-52-2238RXR/1.73 sq M.predicted among non-blacks MDRD (S/P/Bld) [Vol rate/Area]mL/min/{1.73_m2}>=60 mL/min/1.73m 2FOhioHealthHematocrit Auto (Bld) [Volume fraction]Ordered By: (Salma) Bello Marks on 39-54-6700Shqnlxvdgn (Bld) [Volume fraction]32.5 %Low36.0-48.0[facility] WestHemoglobin [Mass/volume] in BloodOrdered By: (Salma) Bello Marks on 75-90-5537Ogygchqhho (Bld) [Mass/Vol]11.0 g/dLLow12.0-16.0 [facility] WestLaboratory - Chemistry and Chemistry - challengeOrdered By: (Salma) Bello Marks on 56-83-6154Qrfxjyu [Mass/Vol]2.7 g/dLLow3.4-5.0[facility] - WestALP [Catalytic activity/Vol]103 U/X93-521GyhaxlosgLake County Memorial Hospital - WestALT [Catalytic activity/Vol]22 U/L 14-59[facility] - WestAST [Catalytic activity/Vol]13 U/CHag23-26 [facility] WestBilirubin [Mass/Vol]0.5 mg/dL0.2-1.0[facility] WestCalcium [Mass/Vol]8.7 mg/dL8.5-10.1FOhioHealthChloride [Moles/Vol]104 mmol/J33-401CrvkjaesaLake County Memorial Hospital - WestCO2 [Moles/Vol]25.2 mmol/L21.0-32.0[facility] Creatinine [Mass/Vol]0.60 mg/dL0.55-1.02[facility] GFR/1.73 sq M.predicted MDRD (S/P/Bld) [Vol rate/Area]mL/min/{1.73_m2}>=60 mL/min/1.73m 2FOhioHealthGlucose [Mass/Vol]94 mg/sI80-526 [facility] WestPotassium [Moles/Vol]3.6 mmol/L3.5-5.1FOhioHealthProtein [Mass/Vol]7.0 g/dL6.4-8.2FGenesis Hospitalodium [Moles/Vol]137 mmol/F465-498YmuzfcokqLake County Memorial Hospital - WestUrea nitrogen [Mass/Vol]5.0 mg/dLLow7.0-18.0[facility] - WestUrea nitrogen/Creatinine [Mass ratio]8.3 mg/mgLake County Memorial Hospital - WestBilirubin Ql (U)SMALLAbnormalNEGATIVELake County Memorial Hospital - West Glucose (U) [Mass/Vol]NegativeNEGATIVELake County Memorial Hospital - WestKetones Ql (U)40 mg/dLAbnormalNEGATIVELake County Memorial Hospital - WestpH (U)5.5 [pH] 5.0-9.0[facility] Preblepecific gravity (U) [Rel density] >=1.884Jmiuvyuj8.005-1.025[facility] - WestUrobilinogen Qn (U) 2.0 {Nadege'U}/dLAbnormal0.2-1.0[facility] WestLaboratory - Hematology and Cell countsOrdered By: ([place]) Bello Marks on 00-59-9989Dgmoiipa granulocytes/100 WBC (Bld)0.7 %High0.0-0.5FOhioHealth Laboratory - Specimen informationOrdered By: (Salma) Bello Marks on 08-29-2025 Appearance (U)CLEARCLEARFOhioHealthColor (U)YELLOWYELLOW [facility] WestLaboratory - UrinalysisOrdered By: (Salma) Bello Marks on 46-63-5809Wiauhqmvr esterase Test strip Ql (U)NegativeNEGATIVE [facility] - WestMucus Ql (Urine sed)SMALLAbnormalNONE SEEN [facility] - WestNitrite Ql (U)NegativeNEGATIVELake County Memorial Hospital - WestProtein Ql (U)100 mg/dLAbnormalNEG/TRACELake County Memorial Hospital - WestLeukocytes [#/volume] corrected for nucleated erythrocytes in Blood by Automated counOrdered By: (Salma) Bello Marks on 75-88-5665YWC corrected for nucl RBC Auto (Bld) [#/Vol]8.7 10 3/uL4.0-11.0 [facility] - WestLymphocytes Auto (Bld) [#/Vol]Ordered By: (Samla) Bello Marks on 81-57-3422Oudkkikceks (Bld) [#/Vol]1.9 10 3/uL1.2-3.8 [facility] - WestLymphocytes/100 WBC Auto (Bld)Ordered By: (Salma) Bello Marks on 40-65-7200Nokpsbyutdp/100 WBC (Bld)21.7 %20.5-60.0 [facility] Auto (RBC) [Entitic mass]Ordered By: (Salma) Bello Marks on 29-59-2298XFB (RBC) [Entitic mass]30.1 pg26.7-34.0 [facility] HospitalHC Auto (RBC) [Mass/Vol]Ordered By: (Salma) Bello Marks on 28-80-8464YPWM (RBC) [Mass/Vol]33.8 g/dL29.9-35.2FOhioHealthMCV Auto (RBC) [Entitic vol]Ordered By: ([place]) Bello Marks on 08-29-5961EQP (RBC) [Entitic vol]88.8 fL81.0-99.0[facility] - WestMonocytes Auto (Bld) [#/Vol]Ordered By: ([place]) Bello Marks on 53-08-9994Djblaafhw (Bld) [#/Vol]0.8 10 3/uL0.3-0.8[facility] WestMonocytes/100 WBC Auto (Bld)Ordered By: ([place]) Bello Marks on 08-29-2025 Monocytes/100 WBC (Bld)8.6 %1.7-12.0[facility] - WestNeutrophils Auto (Bld) [#/Vol]Ordered By: ([place]) Bello Marks on 10-76-4790Ismjpohbjya (Bld) [#/Vol]5.9 10 3/uL1.4-6.5FOhioHealthNeutrophils/100 WBC Auto (Bld)Ordered By: ([place]) Bello Marks on 84-39-8246Amteafwsvzd/100 WBC (Bld)67.8 %43.0-75.0[facility] - WestNo Panel InformationOrdered By: (Salma) Bello Marks on 91-06-8519Gashdjykfsn # (Auto)0.1 10 3/uL0.0-0.7 [facility] - WestImmature Granulocyte # (Auto)0.06 10 3/uLHigh 0.00-0.03[facility] - WestUrine BacteriaSMALL #/HPFAbnormalNONE [facility] HospitalUrine Culture ReflexedYES-FRDetwiler Memorial HospitalUrine Occult BloodNegativeNEGATIVELake County Memorial Hospital - WestUrine Other CastsSEEN #/LPFAbnormalNONE [facility] HospitalUrine Other CrystalsNone Seen #/HPFNone [facility] CenterUrine RBC0-2 #/HPF0-2FOhioHealthUrine Squamous Epithelial CellsFEW #/LPFAbnormalNONE/RARELake County Memorial Hospital - WestUrine WBC2-5 #/HPFAbnormalNONE SEENLake County Memorial Hospital - West Platelet mean volume Auto (Bld) [Entitic vol]Ordered By: ([place]) Bello Mally Marks on 05-81-6935Jzyiyobo mean volume (Bld) [Entitic vol]11.4 fL9.5-13.5FOhioHealthPlatelets Auto (Bld) [#/Vol]Ordered By: ([place]) Bello Mally Tae on 88-43-2404Brosensva (Bld) [#/Vol]201 10 3/sV663-950PxcpbzzgzLake County Memorial Hospital - WestRBC Auto (Bld) [#/Vol]Ordered By: ([place]) Bello Mally Tae on 43-45-9034AAJ (Bld) [#/Vol]3.66 10 6/uLLow4.20-5.40[facility] Health Prebleerum or plasma albumin/globulin mass ratioOrdered By: ([place]) Bello Marks on 62-72-5701Tkfaizg/Globulin [Mass ratio]0.6 {ratio}[facility] Prebleerum or plasma anion gap determinationOrdered By: ([place]) Bello Marks on 37-57-3501Floiq gap [Moles/Vol]11.4 mmol/LFOhioHealthUrine Cultureon 64-32-7633Pmovhdzc identified Cx Nom (U)Diagnosis: 23 WKS ; ABDOMINAL PAIN DIARRHEA Comment: 30,000 colonies/ml mixed bacterial skin contaminants 2 Days PERFORMED BY: [facility] [address] [place] [address] PATHOLOGIST METAL FABRICATING SUPERVISOR JORDAN ALCAZAR M.D.NormalThe Unc Health Rex Physician GroupComment on above: Performed By: #### CUU #### [facility] [address] [place] [address] USABASIC METABOLIC PANELon 69-94-8689Ajxna gap [Moles/Vol]10 mmol/LNormal5-15[facility] HospitalComment on above:Performed By: #### BMP #### [facility] ([facility] BY [facility]) [address] [place] [address] [place] [address] VIRCalcium [Mass/Vol]8.3 mg/dLLow8.5-10.5PMercy Health St. Anne HospitalComment on above:Performed By: #### BMP #### [facility] ([address] [address] VIRChloride [Moles/Vol]103 mmol/SJljnqu33-548DoqZsynqbCleveland Emergency HospitalComment on above:Performed By: #### BMP #### [facility] ([address] [address] VIRCO2 [Moles/Vol]21 mmol/CVso90-35QdyPvzllyMercy Health St. Anne Hospital Comment on above:Performed By: #### BMP #### [facility] ([address] [address] VIRCreatinine [Mass/Vol]0.53 mg/dLNormal0.40-1.00ProCleveland Emergency HospitalComment on above:Result Comment: METHOD TRACEABLE TO IDMS STANDARDPerformed By: #### BMP #### [facility] ([address] [address] VIREGFR (CKD-EPI) NON-RACE DEPENDENT>^90Normal>=60ProCleveland Emergency HospitalComment on above:Result Comment: eGFR not reported due to non- numeric value for Creatinine. Reported eGFR is based on the CKD-EPI 2021 equation that does not use a race coefficient.Performed By: #### BMP #### [facility] ([address] [address] VIRGlucose [Mass/Vol]101 mg/xNGdbx35-10MqhUjpeeoCleveland Emergency HospitalComment on above:Performed By: #### BMP #### [facility] ([address] [address] VIRPotassium [Moles/Vol]3.7 mmol/LNormal3.5-5.0ProCleveland Emergency HospitalComment on above:Performed By: #### BMP #### [facility] ([address] [place] [address] VIRSodium [Moles/Vol]134 mmol/PZuigzg497-739EzrNzsxip [facility] HospitalComment on above:Performed By: #### BMP #### [facility] ([address] [place] [address] VIRUrea nitrogen [Mass/Vol]5 mg/dLNormal5-23ProCleveland Emergency HospitalComment on above:Performed By: #### BMP #### [facility] ([address] [place] [address] VIRCBC (NO DIFF)on 20-63-6107Abtkwbepdcm distribution width (RBC) [Ratio]13.5 %Jpgzsp92.5-15Wyandot Memorial HospitalComment on above: Performed By: #### CBC #### [facility] ([address] [address] VIRHematocrit (Bld) [Volume fraction]31.2 %Gqv06-22YudEgengkCleveland Emergency HospitalComment on above:Performed By: #### CBC #### [facility] ([address] [place] [address] VIRHemoglobin (Bld) [Mass/Vol]10.6 g/dLLow11.7-15.5ProMedica Barton Memorial HospitalComment on above:Performed By: #### CBC #### [facility] ([address] [address] VIRMCH (RBC) [Entitic mass]29.2 qoCbxtmn78-61HniClyhtcCleveland Emergency HospitalComment on above:Performed By: #### CBC #### [facility] ([address] [place] [address] VIRMCHC (RBC) [Mass/Vol]33.8 g/aYJjxeil62-52ToxXphbvnCleveland Emergency HospitalComment on above:Performed By: #### CBC #### [facility] ([address] [place] [address] VIRMCV (RBC) [Entitic vol]86 bMZqxxth50-759CzuXavxda [facility]ont HospitalComment on above:Performed By: #### CBC #### [facility] ([address] [place] [address] VIRPlatelet mean volume (Bld) [Entitic vol]9.2 fLNormal7-12 [facility] HospitalComment on above:Performed By: #### CBC #### [facility] ([address] [place] [address] VIRPlatelets (Bld) [#/Vol]186 10*3/qXIqvfco489-293JrcGldrok [facility] HospitalComment on above:Performed By: #### CBC #### [facility] ([address] [place] [address] VIRRBC COUNT3.62 X10^12/LLow3.8-5.2PMercy Health St. [facility] Comment on above:Performed By: #### CBC #### [facility] ([address] [place] [address] VIRWBC (Bld) [#/Vol]8.9 10*3/uLNormal4-11ProCleveland Emergency HospitalComment on above:Performed By: #### CBC #### [facility] ([address] [address] VIRURINALYSISon 10-98-2201Oggnawjbv sediment LM Ql (Urine sed) PresentAbnormalNonUniversity Hospitals Beachwood Medical CenterComment on above:Performed By: #### UA #### [facility] ([address] [place] [address] VIRBilirubin Ql (U)NegativeNormalNegativeProPremier Health Upper Valley Medical Center HospitalComment on above:Performed By: #### UA #### [facility] (REPLACED BY [facility]) [address] [place] [address] [place] [address] VIRBLOOD/HGBNegativeNormalNegativeWyandot Memorial Hospital Comment on above:Performed By: #### UA #### [facility] (REPLACED BY [facility]) [address] [place] [address] [place] [address] VIRColor (U)YellowNormalYellowWyandot Memorial Hospital Comment on above:Performed By: #### UA #### [facility] ([address] [place] [address] VIRGlucose Ql (U)NegativeNormalNegative, 250 mg/dLWyandot Memorial HospitalComment on above:Performed By: #### UA #### [facility] ([address] [place] [address] VIRKetones Ql (U)NegativeNormalNegativeWyandot Memorial HospitalComment on above:Performed By: #### UA #### [facility] ([address] [place] [address] VIRLeukocyte esterase Test strip Ql (U)NegativeNormalNegative [facility] Memorial HospitalComment on above:Performed By: #### UA #### [facility] ([address] [place] [address] VIRNitrite Ql (U)NegativeNormalNegativeWyandot Memorial HospitalComment on above:Performed By: #### UA #### [facility] ([address] [place] [address] VIRPH,URINE7.9Lbicix3.0-8.5ProMedica Barton Memorial HospitalComment on above:Performed By: #### UA #### [facility] ([address] [place] [address] VIRProtein Ql (U)TraceAbnormalNegativeWyandot Memorial HospitalComment on above:Performed By: #### UA #### [facility] ([address] [place] [address] VIRSpecific gravity (U) [Rel density]1.234Podchf9.003-1.035 [facility]ot Memorial HospitalComment on above:Performed By: #### UA #### [facility] ([address] [place] [address] VIRSQUAMOUS IMDJEUDJWA6Iyodhp0-1NinIacfoq [facility] Comment on above:Performed By: #### UA #### [facility] ([address] [address] VIRTURBIDITYHazyAbnormalClearPMercy Health St. Anne HospitalComment on above:Performed By: #### UA #### [facility] ([address] [place] [address] VIRUROBILINOGEN>=8.0 eu/dLAbnormal0.2 eu/dL, 1.0 eu/dL [facility] Memorial HospitalComment on above:Performed By: #### UA #### [facility] ([address] [address] VIRUS OB 14+ WEEKS ANATOMY SCANon 68-44-5393FS OB 14+ WEEKS ANATOMY SCANFINDINGS: A single, [...] Delivery: 12/26/25 Gestational Age as of 08/02/2025: 01c5mJOL,APTIMA HPV,AGE GDLNon 96-63-0896LIF GDLN ACOG TESTINGNote.NOMS HealthcareComment on above:TESTS RESULT FLAG UNITS REF RANGE LAB Clinician Provided Cytology Information Source.............Endocervix Other.............. No. of containers..01 ThinPrep Vial Age Samo MELANY Mela... -17 11 FLAG LEGEND: L-Low Normal,H-High Normal,LL-Alert Low,HH-Alert High <-Panic Low,>-Panic High,A-Abnormal,AA-Critical Abnormal Performed at: 01 =G [address] [address] Aleida Colon MD, IGP, RFX APTIMA HPV ASCUNote.[facility] Ridge Medical CenterComment on above:TESTS RESULT FLAG UNITS REF RANGE LAB DIAGNOSIS: 02 NEGATIVE FOR INTRAEPITHELIAL LESION OR MALIGNANCY. Specimen adequacy: 02 Satisfactory for evaluation. No endocervical component is identified. An endocervical component is not commonly seen in the patient. Performed by: 02 Cynthia Smith District Medical Examiner ([facility]) . 02 Note: Note 02 The Pap smear is a screening test designed to aid in the detection of premalignant and malignant conditions of the uterine cervix. It is not a diagnostic procedure and should not be used as the sole means of detecting cervical cancer. Both false-positive and false-negative reports do occur. Test Methodology: Note 02 This liquid based ThinPrep(R) pap test was interpreted using the Pivot Acquisition(R) Freedom Meditech(TM) Cervical Algorithm whole slide imaging system. . 02 The HPV DNA reflex criteria were not met with this specimen result therefore, no HPV testing was performed. FLAG LEGEND: L-Low Normal,H-High Normal,LL-Alert Low,HH-Alert High <-Panic Low,>-Panic High,A-Abnormal,AA-Critical Abnormal Performed at: 02 [address] [facility] [address] [place] [address] Aleida Colon MD, Performed at: =G - [facility] [address], [place] [id number] Transmission Engineer: Aleida Colon MD, Phone: [phone] Performed at: [facility] [address] [place], [place] [id number] Transmission Engineer: Aleida Colon MD, Phone: [phone] SPATULA-ALONE ENDOCERVIX CLINISYST. [facility] HealthcareAFP, SERUM, OPEN SPINA BIFIDAon 70-38-4191MAW MOM1.07. NOMS HealthcareAFP VALUE31.7 ng/mL.NOMS HealthcareCOMMENT:Comment.[facility] HealthcareComment on above:Caitlin Palafox, Ph.D., [facility] Director References: Available Upon Request. Multiples Of Median Cutoffs For AFP Elevations Caro 2.5 Black 2.8 IDD 2.0 Twins 4.5 Abbreviation Definitions IDD - Insulin Dep Diabetes OSBR - Open Spina Bifida Risk For further inquiries contact [facility] at [phone]. This test was developed and its performance characteristics determined by [employer]. It has not been cleared or approved by the Food and Drug Administration. Performed at: [facility] [address] [place], [place] [id number] Transmission Engineer: Leonidas Oneill [facility], Phone: [phone] GEST. AGE ON COLLECTION DATE18.0. weeksCitizens Memorial HealthcareGESTAT. AGE BASED ON Ultrasound.[facility] HealthcareComment on above:15.1 on 07/05/2025 Recalculations are not recommended when gestational dating by LMP and ultrasound are within 10 days. INSULIN DEP DIABETESNo.NOMS HealthcareINTERPRETATIONComment.[facility] Healthcare Comment on above:Interpretation: Screen Negative This result [...] Customer Services to discuss available options. The [employer] recommends amniocentesis be offered to women age 35 and older. MATERNAL AGE AT EDD25.1. yrNOWI HealthcareMULTIPLE GESTATIONNo.[facility] OSBR RISK 1 [id number].NOMS HealthcareRACECaucasian.NOMS HealthcareRESULTSReport. NOMS HealthcareTEST RESULTS:Negative.[facility] FnoehgrhbfJZSGQD857. lbsNOMS HealthcarePREGNANCY N N ULTRASOUND [id number] 1 15 N 1 Y 285 N N N N N White/ CLINISYNCNOMS HealthcareRECURRENT VAGINITIS (HTRX)on 03-79-2624FQOZNRFCQ VAGINAE 0NOMS HealthcareATOPOBIUM VAGINAENot detectedNOMS HealthcareBVAB 2,3 (BACTERIAL VAGINOSIS ASSOCIATED BACTERIA 2, 3); MOBILUNCUS SKF5PKLK HealthcareBVAB 2,3 (BACTERIAL VAGINOSIS ASSOCIATED BACTERIA 2, 3); MOBILUNCUS SPPNot detectedNOMS HealthcareCANDIDA ALBICANS, PARAPSILOSIS, BCNTTSUNSG6JMZT HealthcareCANDIDA ALBICANS, PARAPSILOSIS, TROPICALISNot detectedNOMS HealthcareCANDIDA GLABRATA0 NOMS HealthcareCANDIDA GLABRATANot detectedNOMS HealthcareCANDIDA BWACBJ7NWMH HealthcareCANDIDA KRUSEINot detectedNOMS HealthcareCHLAMYDIA IUMIJBTVGUG5KPBQ HealthcareCHLAMYDIA TRACHOMATISNot detectedNOMS HealthcareGARDNERELLA VAGINALIS 31.049AbnormalNOMS HealthcareGARDNERELLA VAGINALISDetectedAbnormalNOMS HealthcareInterpretation and review of laboratory resultsAbnormalNOMS Healthcare MEGASPHAERA (TYPES 1, 2)0NOMS HealthcareMEGASPHAERA (TYPES 1, 2)Not detectedNOMS HealthcareMYCOPLASMA DUPHEVTUTY8SMLO HealthcareMYCOPLASMA GENITALIUMNot detected NOMS HealthcareNEISSERIA BFJHZNDYSTG2NQMJ HealthcareNEISSERIA GONORRHOEAENot detectedNOMS HealthcareTET B, TET M23.864AbnormalNOMS HealthcareTET B, TET M DetectedAbnormalNOWI HealthcareTRICHOMONAS VDNRSIVLL1TEVR HealthcareTRICHOMONAS VAGINALISNot detectedNOMS HealthcareNOMS HealthcareUrinalysis macro (dipstick) panel (U)on 62-69-3760Kiqxrocpw, UANegativeNegative - 4(70) +++ mg/dLNOMS HealthcareBlood, UAPositiveNegative - 50 Lincoln/mcLNOMS HealthcareClarity, UAClear NOMS HealthcareColor, UAYellowNOMS HealthcareGlucose, UANegativeNegative - 1999(110) ++++ mg/dLBL[facility] MOUNTAIN [facility]PITAL HealthcareInterpretation and review of laboratory resultsAbnormalBL[facility] MOUNTAIN [facility] HealthcareKetones, UANegativeNegative - 160(16) ++++ mg/dL NOMS HealthcareLeukocytes, UANegativeNegative - 500+++ Skyler/mcLNOWI Healthcare Nitrite, UANegativeNegative - PositiveNOWI HealthcarepH, UA65 - 9NOWI Healthcare Protein, UANegativeNegative - 1999(20) ++++ mg/dLBL[facility] MOUNTAIN [facility] HealthcareSpec Grav, UA 1.0151 - 1.03NOWI HealthcareUrobilinogen, UA1.00.2 - 12 mg/dLParkland Health Center HealthcareALL THYROID STIM HORMONEon 07-52-1656MLO Qn2.104 m[IU]/LNOMS HealthcareCLINISYNCNOMS HealthcareBOX TESTon 24-58-9629EQO TEST SENT OUTYESCitizens Memorial HealthcareYajkxpwzqnRRW1ADATHLMCE QrhtkcgcbmFPE04/03/13NOResearch Belton HospitalCLINISYNSpartanburg Hospital for Restorative CareHCG ( test) Ql (U)on 07-41-8931Agjichqnyqztoh and review of laboratory resultsAbnormKirkbride CenterPreg Test, UrPositiveNegativeNOPerry County Memorial Hospital HealthcareUS OB TRANSVAGINALon 94-45-0259MQ OB TRANSVAGINAL FINDINGS: A single intrauterine gestational [...] 26, 2025. TRANSCRIBED BY: ELECTRONICALLY SIGNED BY: Sylvia RogerNot AvailableComment on above:Order Comment: US OB TRANSVAGINAL No LMP recorded.Urinalysis macro (dipstick) panel (U)on 97-72-2361Btmuqduke, UA NegativeNegative - 4(70) +++ mg/dLNOMS HealthcareBlood, UANegativeNegative - 50 Lincoln/mcLNOWI HealthcareClarity, UAClearNOMS HealthcareColor, UAYellowNOMS HealthcareGlucose, UANegativeNegative - 2000(110) ++++ mg/dLNOWI Healthcare Interpretation and review of laboratory resultsAbnormalNOWI HealthcareKetones, UANegativeNegative - 160(16) ++++ mg/dLBL[facility]OUNTAIN [facility] HealthcareLeukocytes, UANegative Negative - 500+++ Skyler/mcLNOWI HealthcareNitrite, UANegativeNegative - Positive NOMS HealthcarepH, UA75 - 9NOMS HealthcareProtein, UATraceNegative - 2000(20) ++++ mg/dLNOWI HealthcareSpec Grav, UA1.0251 - 1.03NOMS HealthcareUrobilinogen, UA1.00.2 - 12 mg/dLNOPerry County Memorial Hospital HealthcarePOCT NURSING URINE MACROSCOPIC UAon 69-61-5372PLETKDNZX NURNegativeNocounts include 234 beds at the [facility] hospitalNegTriHealth [facility] Comment on above:Performed By: #### NUM #### [facility] ([address] [address] VIRBLOOD/HGB NURTraceAbnormalNegativeWyandot Memorial HospitalComment on above:Performed By: #### NUM #### [facility] ([address] [address] VIRGLUCOSE NURNegativeNoalNegativeWyandot Memorial Hospital Comment on above:Performed By: #### NUM #### [facility] ([address] [address] VIRKETONES NURNegativeNormalNegativeWyandot Memorial Hospital Comment on above:Performed By: #### NUM #### [facility] ([address] [address] VIRLEUKOCYTE ESTERASE NURNegativeNormalNegativeWyandot Memorial HospitalComment on above:Performed By: #### NUM #### [facility] ([address] [address] VIRNITRITE NURNegativeNormalNegativeWyandot Memorial Hospital Comment on above:Performed By: #### NUM #### [facility] ([address] [address] VIRPH NUR6.5Sasuip7.0, 6.0, 6.5, 7.0, 7.5, 8.0, 8.5, 5.5 [facility] Memorial HospitalComment on above:Performed By: #### NUM #### [facility] ([address] [address] VIRPROTEIN TQE479 mg/dLAbnormalNegativeWyandot Memorial HospitalComment on above:Performed By: #### NUM #### [address] [address] VIRSPECIFIC GRAVITY MOLLY>=1.719Fqnkqprx7.010, 1.015, 1.020, 1.025Wyandot Memorial HospitalComment on above:Performed By: #### NUM #### [facility] ([address] [address] VIRUROBILINOGEN NUR0.2 E.U./dLWashington University Medical CenteralWyandot Memorial Hospital Comment on above:Performed By: #### NUM #### [facility] ([address] [address] VIRPOCT , URINE (NUCG)on 21-41-9931Wbiq HCG ( test) Ql (U)PositiveAbnormalNegative, IndeterminateWyandot Memorial HospitalComment on above:Performed By: #### NUCG #### [facility] ([address] [address] VIRALL THYROID STIM HORMONEon 85-28-8876Vohqxlgdbqoovi and review of laboratory resultsAbnoGeisinger Jersey Shore Hospital Qn5.935 m[IU]/[facility] Health SystemINISYNBOSTON CITY HOSPITAL HealthcareHCG ( test) Ql (U)on 01-17-2025 Interpretation and review of laboratory resultsNormalNO [facility] Medical CenterPreg Test, UrNegativeNegativeCESAR Formerly [facility] Medical CenterLon 01-17-2025L Specimen: [id number] Received: 01/18/25 Status: GHAZAL Parminder Num: [id number] Spec Type: Surgical Subm Dr: Jefferson Howard Tissues: A Endocervix - Biopsy (ENDOCERVIX) Endocervix - Curettings Procedures: TESSIE/Day Olivarez/Elvin Huggins Age/ Patient Sex Location Account Attending Physician Jes Romero 24/ LABELL [id number] Jefferson Howard SPEC NUM: [id number] RECD: 01/18/25 STATUS: GHAZAL JEROME NUM: [id number] JUDIT: 01/17/25-[address]: Jefferson Howard ENTERED: 01/18/25-[address] [facility] [address]: Emma,Lab SPEC TYPE: Surgical DEPT: LUCAS MAR ENTERED BY: [id number] RECV BY: [id number] ORDERED: HE/2, Gross/Micro L4 ORDERED: HE/2, Gross/Micro [...] submitted in a single cassette. (1, ns, [id number]) Microscopic Description Microscopic examination is performed Specimen: [id number] Received: 01/18/25 Status: GHAZAL Jerome Num: [id number] Spec Type: Surgical Subm Dr: Jefferson Howard Tissues: A Endocervix - Biopsy (ENDOCERVIX) Endocervix - Curettings Procedures: HE/2, Gross/Micro L4 Patient: Jes Romero [id number] (Continued) Specimen: [id number] Received: 01/18/25 (Continued) Signed (signature on file) Lizabeth Diggs MD 01/19/25 1541 Specimen: [id number] Received: 01/18/25 Status: GHAZAL Jerome Num: [id number] Spec Type: Surgical Subm Dr: Jefferson Howard Tissues: A Endocervix - Biopsy (ENDOCERVIX) Endocervix - Curettings Procedures: Day MEDELLIN/Elvin L4 Patient: Jes Romero [id number] (Continued) Specimen: [id number] Received: 01/18/25 (Continued) CPT Codes 03905 Specimen: [id number] Received: 01/18/25 Status: GHAZAL Jerome Num: [id number] Spec Type: Surgical Subm Dr: Jefferson Howard Tissues: A Endocervix - Biopsy (ENDOCERVIX) Endocervix - Curettings Procedures: TESSIE/Day Olivarez/Elvin L4 Patient: Jes Romero [id number] (Continued) Signed (signature on file) Brian-Shaheen Diggs MD 01/19/[address] [place] [address] Physician GroupUrinalysis macro (dipstick) panel (U)on 82-93-8613Tqozfszng, UANegativeNegative - 4(70) +++ mg/dLNOMS HealthcareBlood, UANegativeNegative [...] mg/dLNOMS HealthcareNOMS HealthcareUS PELVIC COMPLETE W/ TVon 59-04-6347KT PELVIC COMPLETE W/ TVEXAM: US PELVIC COMPLETE [...] II, MD, PHD at 13-Jan-2025 11:16:36 PM [facility] TeleradiologyNormalNot AvailableComment on above:Order Comment: US PELVIS-TRANSVAG IF INDICATED No LMP recorded.Urine Cultureon 05-43-0808Cylbwzkt identified Cx Nom (U)15,000 colonies/ml mixed bacterial skin contaminants 2 Days PERFORMED BY: [place] [address] PATHOLOGIST METAL FABRICATING SUPERVISOR BRUCE CALI M.D.NormalThe Unc Health Rex Physician GroupComment on above: Performed By: #### CUU #### [facility] [address] [place] [address] USAUrine cultureOrdered By: Krishna Saxena on 01-03-2025 Bacteria identified Cx Nom (U)Urine cultureLake County Memorial Hospital - West IGP,APTIMA HPV,AGE GDLNon 91-81-6508WOG GDLN ACOG TESTINGNote.[facility] Comment on above:TESTS RESULT FLAG UNITS REF RANGE LAB Clinician Provided Cytology Information Source.............Cervix;Endocervix No. of containers..01 ThinPrep Vial Age Algo ACOG Mela... -17 11 FLAG LEGEND: L-Low Normal,H-High Normal,LL-Alert Low,HH-Alert High <-Panic Low,>-Panic High,A-Abnormal,AA-Critical Abnormal Performed at: 01 =G [facility] [place] [address] Aleida Colon MD, IGP, RFX APTIMA HPV ASCUNoteAbnormal.NOMS HealthcareComment on above:TESTS RESULT FLAG UNITS REF RANGE LAB DIAGNOSIS: [A] 02 EPITHELIAL CELL ABNORMALITY. LOW GRADE SQUAMOUS INTRAEPITHELIAL LESION (LSIL). Specimen adequacy: 02 Satisfactory for evaluation. Endocervical and/or squamous metaplastic cells (endocervical component) are present. Performed by: 02 Cynthia Smith, Gin Pole Operator (ASCP) Electronically si... 02 Johanne Desir MD, [...] <-Panic Low,>-Panic High,A-Abnormal,AA-Critical Abnormal Performed at: [address] [address] Aleida Colon MD, Performed at: = - [facility] [id number] Transmission Engineer: Aleida Colon MD, Phone: [phone] Performed at: [facility] [address] [id number] Transmission Engineer: Aleida Colon MD, Phone: [phone] Interpretation and review of laboratory resultsAbnoLehigh Valley Hospital - Schuylkill [address] BRUSH-SPATULA CERVIX ENDOCERVIX CLINISYVanderbilt University HospitalInsertion/Removal of Contraceptive Capsuleon 12-02-2024 Pilar Collins [...] closed with steri-strips and pressure bandage applied: [facility] StanlyUS PELVIC COMPLETE W/ TVon 82-18-7383UC PELVIC COMPLETE W/ TVEXAM: US PELVIC COMPLETE [...] II, MD, PHD at 03-Dec-2024 08:37:11 AM [facility] TeleradiologyNormalNot AvailableComment on above:Order Comment: US PELVIS-TRANSVAG IF INDICATED No LMP recorded.ALL CBC WITH AUTO DIFFon 10-54-7916PMWUUWMUQ ABSOLUTE AUTO0.1 NOMS HealthcareBasophils/100 WBC (Bld)0.6 %0.2 - 2.0 %[facility] Eosinophils/100 WBC (Bld)2.6 %0.9 - 7.0 %[facility] HealthcareErythrocyte distribution width (RBC) [Ratio]13.2 %11.0 - 15.0 %[facility] HealthcareHematocrit (Bld) [Volume fraction]38.2 %36.0 - 48.0 %[facility] HealthcareHemoglobin (Bld) [Mass/Vol]12.4 g/dL 12.0 - 16.0 g/dLNOResearch Belton HospitalIMMATURE GRANULOCYTES ABS AUTO0.04HighNOWI HealthcareImmature granulocytes/100 WBC (Bld)0.4 %0.0 - 0.5 %[facility] Interpretation and review of laboratory resultsAbnormalNOWI Healthcare LYMPHOCYTES ABSOLUTE AUTO3.4NOResearch Belton HospitalLymphocytes/100 WBC (Bld)34.8 %20.5 - 60.0 %[facility] HealthcareMCH (RBC) [Entitic mass]28.3 pg26.7 - 34.0 pgNOSaint John's Saint Francis HospitalHC (RBC) [Mass/Vol]32.5 g/dL29.9 - 35.2 g/dLNOWI HealthcareMCV (RBC) [Entitic vol]87.2 fL81.0 - 99.0 fLNOMS HealthcareMONOCYTES ABSOLUTE AUTO0.7NOMS HealthcareMonocytes/100 WBC (Bld)7.2 %1.7 - 12.0 %[facility] HealthcareNEUTROPHILS ABSOLUTE AUTO5.4NOMS HealthcareNeutrophils/100 WBC (Bld)54.4 %43.0 - 75.0 %[facility] HealthcarePlatelet mean volume (Bld) [Entitic vol]10 fL9.5 - 13.5 fLNOMS HealthcareTBH EO #0.3NOMS HealthcareTBH PKH213QDJO HealthcareTBH RBC4.38NOMS HealthcareTBH WBC9.9NOMS HealthcareCLINISYNCNOMS HealthcareHCG ( test) IA.rapid Ql (U)Ordered By: Mir Silva on 50-19-8022BXN ( test) Ql (U)Urine human chorionic gonadotropin (hCG) detection by immunoassayLake County Memorial Hospital - WestHC,Urineon 22-52-4340Mnml HCG ( test) Ql (U) NegativeNoMission Hospital Physician GroupComment on above:Result Comment: PERFORMED BY: [address] [place] [id number] PATHOLOGIST METAL FABRICATING SUPERVISOR BRUCE CALI M.D.Performed By: #### UHCG #### [place] [id number] USALon 09-07-2024L Specimen: [id number] Received: 09/07/24 Status: GHAZAL Jerome Num: [id number] Spec Type: Surgical Subm Dr: Mir Silva MD Tissues: A Small Intestine - Biopsy/Polyp (SMALL BOWEL BX R/O CELIAC) Procedures: HE/2, Gross/Micro L4 Age/ Patient Sex Location Account Attending Physician Jes Romero / [id number] Mir Silva MD SPEC NUM: [id number] RECD: 09/07/24 STATUS: GHAZAL JEROME NUM: [id number] JUDIT: 09/07/[address] [facility] [address]: Mir Silva MD ENTERED: 09/07/[address]: SPEC TYPE: Surgical DEPT: S ENTERED BY: [id number] RECV BY: [id number] ORDERED: HE/2, Gross/Micro L4 ORDERED: HE/2, Gross/Micro [...] submitted in a single cassette. (1, ns, [id number] A) Microscopic Description Microscopic examination is performed. CPT Codes 96667 Specimen: [id number] Received: 09/07/24 Status: GHAZAL Jerome Num: [id number] Spec Type: Surgical Subm Dr: Mir Silva MD Tissues: A Small Intestine - Biopsy/Polyp (SMALL BOWEL BX R/O CELIAC) Procedures: HE/2, Gross/Micro L4 Patient: Jes Romero [id number] (Continued) Signed (signature on file) Roberth Martinez MD 09/08/24 1012Noal [facility] Physician GroupBAPTIST HEALTH PADUCAH AND AUTO DIFFon 30-41-5543RQOBOKJK BASOPHIL0.0 X10E9/LNormal0.0-0.2PMercy Health St. Anne HospitalComment on above:Performed By: #### MARLENE CBCA #### [facility] ([id number]) [address] [place] [address] 92892BFXFUNWW NEUTROPHIL3.8 X10E9/LNormal1.5-6.6W[facility]ot Memorial HospitalComment on above:Performed By: #### CMP, CBCA #### [facility] ([id number]) [address] [place] [address] 18112Kaqjjaflk/100 WBC (Bld)0.3 %[facility] Comment on above:Performed By: #### MARLENE CBCA #### [facility] ([id number]) [address] [place] [address] 79011Zlvmwkodaoa (Bld) [#/Vol]0.0 10*3/uLNormal0.0-0.4W[facility] HospitalComment on above:Performed By: #### CMP, CBCA #### [facility] ([id number]) [address] [place] [address] 66539Abftqfjafma/100 WBC (Bld)0.8 %[facility] Comment on above:Performed By: #### CMP, CBCA #### [facility] ([id number]) [address] [place] [address] 59067Dlaakyzmouh distribution width (RBC) [Ratio]14.5 %Normal 11.5-15.0W[facility] Memorial HospitalComment on above:Performed By: #### CMP, CBCA #### [facility] ([id number]) [address] [place] [address] 43349Pcfrhqpdaj (Bld) [Volume fraction]38.8 %Npyiom36-91EmnEmfqkaCleveland Emergency HospitalComment on above:Performed By: #### CMP, CBCA #### [facility] ([id number]) [address] [place] [address] 80319Jzuktusnlt (Bld) [Mass/Vol]13.0 g/qSZoyboe17.7-15.5PMercy Health St. Anne HospitalComment on above:Performed By: #### CMP, CBCA #### [facility] ([id number]) [address] [place] [address] 25679Gafjizvblxx (Bld) [#/Vol]0.5 10*3/uLLow1.0-3.5PMercy Health St. Anne HospitalComment on above:Performed By: #### CMP, CBCA #### [facility] ([id number]) [address] [place] [address] 90049Yhrufoyroen/100 WBC (Bld)11.5 %NormalWyandot Memorial Hospital Comment on above:Performed By: #### CMP, CBCA #### [facility] ([id number]) [address] [place] [address] 64391NJV (RBC) [Entitic mass]28.6 fpTzoupx54-06VyuSqrsqkCleveland Emergency HospitalComment on above:Performed By: #### CMP, CBCA #### [facility] ([id number]) [address] [place] [address] 48416WIHI (RBC) [Mass/Vol]33.5 g/fIVeixmm80-40TuxHyxjmlCleveland Emergency HospitalComment on above:Performed By: #### CMP, CBCA #### [facility] ([id number]) [address] [place] [address] 55227ECO (RBC) [Entitic vol]85 eXQazehp45-314GifHxnwnqWyandot Memorial HospitalComment on above:Performed By: #### CMP, CBCA #### [facility] ([id number]) [address] [place] [address] 96789Qltmecgek (Bld) [#/Vol]0.2 10*3/uLNormal0-0.9W[facility] Memorial HospitalComment on above:Performed By: #### CMP, CBCA #### [facility] ([id number]) [address] [place] [address] 16805Egzstzkga/100 WBC (Bld)5.1 %[facility] Comment on above:Performed By: #### CMP, CBCA #### [facility] ([id number]) [address] [place] [address] 08630Hbzxhddmvjz/100 WBC (Bld)82.3 %[facility] Comment on above:Performed By: #### CMP, CBCA #### [facility] ([id number]) [address] [place] [address] 95090Juvlbims mean volume (Bld) [Entitic vol]8.6 fLNormal7-12 [facility] HospitalComment on above:Performed By: #### CMP, CBCA #### [facility] ([id number]) [address] [place] [address] 99355Nygvfsvpu (Bld) [#/Vol]225 10*3/fVEbwaqv749-967AlxKgnxnx [facility]remont HospitalComment on above:Performed By: #### CMP, CBCA #### [facility] ([id number]) [address] [place] [address] 58988GED COUNT4.55 X10E12/LNormal3.80-5.20[facility] Comment on above:Performed By: #### MARLENE, CBCA #### [facility] ([id number]) [address] [place] [address] 05360JHZ (Bld) [#/Vol]4.6 10*3/uLNormal4.0-11.0ProCleveland Emergency HospitalComment on above:Performed By: #### CMP, CBCA #### [facility] ([id number]) [address] [place] [address] 60843IKZYVBQBSPXAK METABOLIC PANELon 33-09-4732Ofdcleg [Mass/Vol]3.6 g/dLNormal3.2-5.3PMercy Health St. Anne HospitalComment on above:Performed By: #### CMP, CBCA #### [facility] ([id number]) [address] [place] [address], [place] [address]MWV [Catalytic activity/Vol]65 U/UPumvbq33-512KasXmhwyyCleveland Emergency HospitalComment on above:Performed By: #### CMP, CBCA #### [facility] ([id number]) [address] [place] [address], [place] 330[address]YFR [Catalytic activity/Vol]29 U/LNormal0-31PMercy Health St. Anne HospitalComment on above:Performed By: #### CMP, CBCA #### [facility] ([id number]) [address] [place] [address], [place] [address]Tatck gap [Moles/Vol]10 mmol/LNormal5-15ProCleveland Emergency HospitalComment on above:Performed By: #### CMP, CBCA #### [facility] ([id number]) [address] [place] [address], [place] [address]UTD [Catalytic activity/Vol]36 U/LNormal0-41ProCleveland Emergency HospitalComment on above:Performed By: #### CMP, CBCA #### [facility] ([id number]) [address] [place] [address], [place] [address]Aippyoaee [Mass/Vol]0.9 mg/dLNormal0.3-1.2PMercy Health St. Anne HospitalComment on above:Performed By: #### MARLENE, CBCA #### [facility] ([id number]) [address] [place] [address], [place] 38[address]Roumewg [Mass/Vol]8.3 mg/dLLow8.5-10.5PMercy Health St. Anne HospitalComment on above:Performed By: #### MARLENE, CBCA #### [facility] ([id number]) [address] [place] [address], [place] [address]Tkajjvmt [Moles/Vol]103 mmol/HNgsarw73-737KmlLzucklCleveland Emergency HospitalComment on above:Performed By: #### MARLENE CBCA #### [facility] ([id number]) [address] [place] [address], [place] 269[address]MK4 [Moles/Vol]22 mmol/VBgpsrn95-59IxbNnwpasMercy Health St. Anne Hospital Comment on above:Performed By: #### MARLENE, CBCA #### [facility] ([id number]) [address] [place] [address], [place] [address]Abgvdhhmys [Mass/Vol]0.72 mg/dLNormal0.40-1.00ProCleveland Emergency HospitalComment on above:Result Comment: METHOD TRACEABLE TO IDMS STANDARD Performed By: #### MARLENE, CBCA #### [facility] ([id number]) [address] [place] [address], [place] 464[address]tCDE (CKD-EPI) NON-RACE DEPENDENT>90Normal>59ProCleveland Emergency HospitalComment on above:Result Comment: Reported eGFR is based on the CKD-EPI 2020 equation that does not use a race coefficient.Performed By: #### MARLENE, CBCA #### [facility] ([id number]) [address] [place] [address] 21482Zgxfujv [Mass/Vol]103 mg/aQInyw13-93QrcUwvsvxCleveland Emergency Hospital Comment on above:Performed By: #### CMP, CBCA #### [facility] ([id number]) [address] [place] [address] 87949Xffsrctlr [Moles/Vol]3.5 mmol/LNormal3.5-5.0ProCleveland Emergency HospitalComment on above:Performed By: #### CMP, CBCA #### [facility] ([id number]) [address] [place] [address] 80286Motetmc [Mass/Vol]6.9 g/dLNormal6.0-8.0ProCleveland Emergency HospitalComment on above:Performed By: #### CMP, CBCA #### [facility] ([id number]) [address] [place] [address] 73530Ieoasb [Moles/Vol]135 mmol/DRqsmbs470-507TuiAauzoo [facility]remont HospitalComment on above:Performed By: #### CMP, CBCA #### [facility] ([id number]) [address] [place] [address] 71382Mbua nitrogen [Mass/Vol]16 mg/dLNormal5-23ProCleveland Emergency HospitalComment on above:Performed By: #### CMP, CBCA #### [facility] ([id number]) [address] [place] [address] 69281NB ABDOMEN AND PELVIS W CONTon 25-65-1815BJ ABDOMEN AND PELVIS W CONTCT ABDOMEN AND [...] by Huang Burleson MD on 08/28/2024 8:12 PMNormalProCleveland Emergency HospitalHCG ( test) Ql (U)on 85-17-9044Owee HCG ( test) Ql (U) NegativeNormalNEGWyandot Memorial HospitalComment on above:Performed By: #### 2106-3 #### [facility] ([id number]) [address] [place] [address] 00415KKS MACROSCOPIC NURon 60-07-9641DNHCLUFOY NURSmallAbnormalNEG [facility] HospitalComment on above:Performed By: #### NUM #### [facility] ([id number]) [address] [place] [address] 49080XAQKN/HGB NURNegativeNormalNEGProCleveland Emergency HospitalComment on above:Performed By: #### NUM #### [facility] ([id number]) [address] [place] [address] 34761AJTYZVI NURNegativeNormalNEGProCleveland Emergency HospitalComment on above:Performed By: #### NUM #### [facility] ([id number]) [address] [place] [address], [place] 827[address]ENQSZXZ NURNegativeNormalNEGProCleveland Emergency HospitalComment on above:Performed By: #### NUM #### [facility] ([id number]) [address] [place] [address], [place] 916[address]CWVGWTCLG ESTERASE NURNegativeNormalNEGProCleveland Emergency HospitalComment on above:Performed By: #### NUM #### [facility] ([id number]) [address] [place] [address], [place] 352[address]IKRRUWI NURNegativeNormalNEGProCleveland Emergency HospitalComment on above:Performed By: #### NUM #### [facility] ([id number]) [address] [place] [address], [place] 23075IS NUR5.3Tlpdux7.0-8.5PMercy Health St. Anne HospitalComment on above:Performed By: #### NUM #### [facility] ([id number]) [address] [place] [address], [place] 84[address]EOHQLBG MOLLY>=300AbnormalNEGWyandot Memorial HospitalComment on above:Performed By: #### NUM #### [facility] ([id number]) [address] [place] [address], [place] 25406OWTXDBLH GRAVITY MOLLY>=1.861Egbnzf5.003-1.035ProCleveland Emergency HospitalComment on above:Performed By: #### NUM #### [facility] ([id number]) [address] [place] [address], [place] 960[address]EIRZTJHQUXBV NUR0.2 eu/dLNormal<1.1PMercy Health St. Anne Hospital Comment on above:Performed By: #### NUM #### [facility] ([id number]) [address] [place] [address], [place] 18[address]AJMO TRICHOMONAS/WET PREPon 41-67-0441DGE PREP TRIC BV CYDNEY Wet Prep Tric BV Cydney WP.BACT Bacteria^Bacteria NOMS HealthcareWET PREP TRIC BV CANDIDAWP.CLUE Clue Cells^Clue CellsNOMS HealthcareWET PREP TRIC BV CANDIDAWP.JEANNETTE Fungal Elements^Fungal ElementsNOMS HealthcareWET PREP TRIC BV CANDIDAWP.RBC RBC^RBCNOMS HealthcareWET PREP TRIC BV CANDIDAWP.TRICH Trichomonas^TrichomonasNOMS HealthcareWET PREP TRIC BV CYDNEY WP.WBC WBC^WBCNOMS HealthcareCLINISYNCNOMS HealthcareNo Panel Informationon 86-17-8962SGI PREP TRIC BV CANDIDAF Few^FewNOMS HealthcareWET PREP TRIC BV CANDIDAN None Seen^None SeenNOMS HealthcareXR LUMBAR SPINE 2 OR 3Von 06-03-2024 [place] [address] XRay Report Signed Patient: JES ROMERO MR#: [id number] : 2000 Acct:[id number] Age/Sex: 23 / F ADM Date: 06/01/24 Loc: [facility] Attending Dr: Manuel Noel M.D. Ordering Physician: Manuel Noel M.D. Date of Service: 06/01/24 Procedure(s): XR lumbar spine 2-3V Accession Number(s): [id number] cc: Manuel Noel M.D. [address] [address] Patient Name: JES ROMERO MRN: [id number] date: 2000 Sex: F Assigned Patient Location: [facility] Current Patient Location: Accession/Order Number: [id number] Exam Date: 06/01/2024 14:19 Report Date: 06/03/2024 [...] Signed By: 06/03/24 1313 DD/ 1310 TD/TT: Customs Agent:YOUNGadiologjosué, Radiologist, - 06/03/2024 [place] [address] XRay Report Signed Patient: JES ROMERO MR#: [id number] : 2000 Acct:[id number] Age/Sex: 23 / F ADM Date: 06/01/24 Loc: [facility] Attending Dr: Manuel Noel M.D. Ordering Physician: Manuel Noel M.D. Date of Service: 06/01/24 Procedure(s): XR lumbar spine 2-3V Accession Number(s): [id number] cc: Manuel Noel M.D. [place] [address] Patient Name: JES ROMERO MRN: [id number] date: 2000 Sex: F Assigned Patient Location: [facility] Current Patient Location: Accession/Order Number: [id number] Exam Date: 06/01/2024 14:19 Report Date: 06/03/2024 [...] Signed By: 06/03/24 1313 DD/ 1310 TD/TT: Customs Agent: CESAR HealthcareRadiology Study observation (narrative)NOMMaribell HealthcareXR LUMBAR SPINE 2 OR 3VOrdered By: Radiologist Radiology on 29-49-7117SNLX Healthcare Work Phone: PRBC LEUKOREDUCEDon 13-91-0710VBM and Rh group Nom (Bld)Cross Match Result Compatible Unit Blood Type O Pos Unit Number [id number] Status Information Transfused Product ID Red Blood Cells Product Code [id number] Cross Match Result Compatible Unit Blood Type O Pos Unit Number [id number] Status Information Transfused Product ID Red Blood Cells Product Code [id number] Health Wadsworth - Rittman Medical CenterComment on above:Performed By: #### PRBC ####[facility] [address] [place], [place] [address]Dr. Benoit DiggsCBC AUTO DIFFon 09-01-1550SJJE #0.1 103/ulNormal0.0-0.1The [facility] CampusComment on above:Performed By: #### CBC ####[facility] Lkxebwodmh[address] [place], [place] [address]Dr.Benoit DiggsBasophils/100 WBC (Bld)1.2 %Normal0.2-2.0The [facility] Hospitalment on above:Performed By: #### CBC ####[facility] [address]keip[address]xk[address] [place], [place] [address]Dr.Benoit ChangEO #0.4 103/ulNormal0.0-0.7The [facility] CampusComment on above:Performed By: #### CBC ####[facility] [address]knjj[address] [place], [place] [address]Dr.Benoit ChangEosinophils/100 WBC (Bld)4.5 %Normal 0.9-7.0The [facility] CampusComment on above:Performed By: #### CBC ####[facility] Uvbtpvcqis[address] [place], [place] [address]Dr.Benoit Diggs Erythrocyte distribution width (RBC) [Ratio]16.6 %Critically high11.0-15.0The [facility] CampusComment on above:Performed By: #### CBC ####[facility] [address] [place] [address]Dr.Benoit DontaeHematocrit (Bld) [Volume fraction]40.3 %Pegstk63.0-48.0The [facility] CampusComment on above:Performed By: #### CBC ####[facility] Ciazivyxuo[address] [place], [place] [address]Dr.Benoit DiggsHemoglobin (Bld) [Mass/Vol]12.6 g/dL Rtsdjw15.0-16.0The [facility] CampusComment on above:Performed By: #### CBC ####[facility] Atiaaeserl[address] [place], [place] [address]Dr. Benoit ChangIG #0.04 10e3/ulCritically high0.00-0.03The [facility] CampusComment on above:Performed By: #### CBC ####[facility] Gfwtfpidws[address] [place], [place] [address]Dr.Benoit DiggsIG %0.5 %Normal0.0-0.5The [facility] CampusComment on above:Performed By: #### CBC ####[facility] Zmgmqakwxp[address] [place], [place] [address]Dr.Benoit DiggsLYMPH #3.0 103/ulNormal1.2-3.8The [facility] CampusComment on above:Performed By: #### CBC ####[facility] Anhnjinvyl[address] [place], [place] [address]Dr. Benoit DiggsLymphocytes/100 WBC (Bld)36.0 %Vadnbg82.5-60.0The [facility] Comment on above:Performed By: #### CBC ####[facility] L[address]tyyq[address] [place], [place] [address]Dr.Benoit DiggsMANUAL DIFF REQNONormalThe [facility] CampusComment on above:Performed By: #### CBC ####[facility] Tclizerxyb[address] [place], [place] [address]Dr.Benoit DiggsMCH (RBC) [Entitic mass]25.3 pgCritically low26.7-34.0The [facility] CampusComment on above:Performed By: #### CBC ####[facility] Jxnqwnddmt[address] [place], [place] [address]Dr.Benoit DiggsMCHC (RBC) [Mass/Vol]31.3 g/dLNormal 29.9-35.2The [facility] CampusComment on above:Performed By: #### CBC ####[facility] Jysqbpnjby[address] [place], [place] [address]Dr. Benoit DiggsMCV (RBC) [Entitic vol]80.9 fLCritically low81.0-99.0The [facility] CampusComment on above:Performed By: #### CBC ####[facility] Zvmwucsyfj[address] [place], [place] [address]Dr.Benoit DiggsMONO #0.4 103/ulNormal0.3-0.8The [facility] CampusComment on above:Performed By: #### CBC ####[facility] Xoplleqvwk[address] [place], [place] [address]Dr. Benoit DontaeMonocytes/100 WBC (Bld)4.8 %Normal1.7-12.0The [facility] Comment on above:Performed By: #### CBC ####[facility] [address]pt[address]jcqk[address] [place], [place] [address]Dr.Benoit DiggsNEUT #4.4 103/ulNormal1.4-6.5 The [facility] CampusComment on above:Performed By: #### CBC ####[facility] Mouuypypnx[address] [place], [place] [address]Dr.Benoit Diggs Neutrophils/100 WBC (Bld)53.0 %Cskrfg92.0-75.0The [facility] CampusComment on above:Performed By: #### CBC ####[facility] Kysxpspfhu[address] [place], [place] [address]Dr.Karyaurora DontaePlatelet mean volume (Bld) [Entitic vol] 10.8 fLNormal9.5-13.5The [facility] CampusComment on above:Performed By: #### CBC ####[facility] [address] [place] [address]Dr. Benoit DiggsPLT410 103/thPuoqdb629-781Jhx [facility] CampusComment on above: Performed By: #### CBC ####[facility] [address] [place] [address]Dr.Benoit DiggsRBC4.98 106/ulNormal4.20-5.40The [facility] CampusComment on above:Performed By: #### CBC ####[facility] Uzq[address]wo[address] [place], [place] [address]Dr.Benoit DiggsWBC8.3 103/ul Normal4.0-11.0The [facility] CampusComment on above:Performed By: #### CBC ####[facility] Ncdmqcubsv[address] [place], [place] [address]Dr. Karyaurora DontaeGLYCOHEMOGLOBIN A1Con 63-60-0031KKT RECOMMENDATIONSEE [facility] HospitalComment on above:Result Comment: ADA RECOMMENDED LIMIT 4.0 - 6.0 ADA THERAPEUTIC TARGET < 7.0 ACTION SUGGESTED > 7.0Performed By: #### A1C ####[facility] Abthaiyyer[address] [place], [place] [address]Dr. Karyaurora DontaeGlucose [Mass/Vol]100 mg/dLMercy Memorial HospitalCommclaren thumb region on above:Performed By: #### A1C ####[facility] Pgnuvczphk[address] [place], [place] [address]Dr.Karyaurora JscbvAfS8e (Bld) [Mass fraction]5.1 %Normal 4.5-6.2The [facility] CampusComment on above:Performed By: #### A1C ####[facility] Qggyntbxmn[address] [place], [place] [address]Dr.Benoit DiggsLIPID PROFILEon 64-96-3090PJVD-HDL RATIO NORMSEE [facility] Comment on above:Result Comment: 3.3 - 4.4 LOW RISK 4.4 - 7.1 AVERAGE RISK 7.1 - 11.0 MODERATE RISK >11.0 HIGH RISKPerformed By: #### LIVER, LIPID, BMP, TSH ####[facility] [address] [place] [address]Dr. Yilan ChangCholesterol [Mass/Vol]184 mg/dLNormal<=200The [facility] Comment on above:Performed By: #### LIVER, LIPID, BMP, TSH ####[facility] [address] [place] [address]Dr. Yilan ChangCholesterol in HDL [Mass/Vol]52 mg/cVZzngmu69-81Dfz [facility] CampusComment on above: Performed By: #### LIVER, LIPID, BMP, TSH ####[facility] [address]ok[address] [place] [address]Dr. Yilan ChangCholesterol in LDL [Mass/Vol] 114.8 mg/dLNoSumma Health Wadsworth - Rittman Medical CenterComment on above:Performed By: #### LIVER, LIPID, BMP, TSH ####[facility] Mxwseyxsnr[address] [place], [place] [address]Dr. Yilan ChangCholesterol.total/Cholesterol in HDL [Mass ratio]3.5 {ratio}NormalThe [facility] CampusComment on above:Performed By: #### LIVER, LIPID, BMP, TSH ####[facility] [address] [place] [address]Dr. Yilan ChangHDL NORMAL> or = 60 mg/dl - LOW CARDIOVASCULAR RISK <40 mg/dl - HIGH CARDIOVASCULAR RISKNoSumma Health Wadsworth - Rittman Medical CenterComment on above: Performed By: #### LIVER, LIPID, BMP, TSH ####[facility] [address]bt[address] [place] [address]Dr. Yilan ChangLDL CALC NORMALSEE BELOW NormalThe [facility] CampusComment on above:Result Comment: <100 mg/dl OPTIMAL 100 - 129 mg/dl NEAR OR ABOVE OPTIMAL 130 - 159 mg/dl BORDERLINE HIGH 160 - 189 mg/dl HIGH >190 mg/dl VERY HIGHPerformed By: #### LIVER, LIPID, BMP, TSH ####[facility] [address] [place] [address]Dr. Yilan ChangTriglyceride [Mass/Vol]86 mg/dLNormal<=150The [facility] Comment on above:Performed By: #### LIVER, LIPID, BMP, TSH ####[facility] [address]te[address]igt[address]ww[address] [place] [address]Dr. Yilan ChangVLDL CALC17.2 mg/dLNormalThe [facility] CampusComment on above:Performed By: #### LIVER, LIPID, BMP, TSH ####[facility] [address] [place] [address]Dr. Benoit DiggsLIVER PROFILEon 81-36-0019Rplbiwl [Mass/Vol]3.3 g/dL Critically low3.4-5.0The [facility] CampusComment on above:Performed By: #### LIVER, LIPID, BMP, TSH ####[facility] [address]ustx[address] [place] [address]Dr. Yilan ChangAlbumin/Globulin [Mass ratio]0.8 {ratio}NormalThe [facility] CampusComment on above:Performed By: #### LIVER, LIPID, BMP, TSH ####[facility] [address]ra[address] [place] [address]Dr. Yilan ChangALP [Catalytic activity/Vol]110 U/NUyovfw28-247Bkk [facility] CampusComment on above:Performed By: #### LIVER, LIPID, BMP, TSH ####[facility] [id number] [place], [place] [address]Dr. Yilan ChangALT [Catalytic activity/Vol]25 [id number] [facility] Comment on above:Performed By: #### LIVER, LIPID, BMP, TSH ####[facility] [id number] [place], [place] [address]Dr. Yilan ChangAST [Catalytic activity/Vol]20 [id number] [facility] CampusComment on above:Performed By: #### LIVER, LIPID, BMP, TSH ####[facility] [id number] [place], [place] [address]Dr. Yilan ChangBILI, CONJUGATED0.1 mg/dLNormal0.0-0.2 The [facility] CampusComment on above:Performed By: #### LIVER, LIPID, BMP, TSH ####[facility] [id number] [place], [place] [address]Dr. Yilan ChangBilirubin [Mass/Vol]0.4 mg/dLNormal0.2-1.0The [facility] Comment on above:Performed By: #### LIVER, LIPID, BMP, TSH ####[facility] [id number] [address]Dr. Benoit ChangGlobulin (S) [Mass/Vol]3.9 g/dLNormalThe [facility] CampusComment on above:Performed By: #### LIVER, LIPID, BMP, TSH ####[facility] [id number] [address]Dr. Benoit ChangProtein [Mass/Vol]7.2 g/dLNormal6.4-8.2 The [facility] CampusComment on above:Performed By: #### LIVER, LIPID, BMP, TSH ####[facility] [id number] [address]Dr. Benoit DiggsPROF CHEM 8 (BAS METB)on [id number] gap [Moles/Vol]13.2 mmol/L NormalOhiohealth Hardin Memorial HospitalComment on above:Performed By: #### CBC #### [facility] [address] [address] [address] Benoit DiggsCalcium [Mass/Vol]9.2 mg/dLNormal8.5-10.1[facility] Comment on above:Performed By: #### CBC #### [facility] [address] [address] [address] Benoit DiggsChloride [Moles/Vol]108 mmol/LCritically fkig56-815Tmm [facility] CampusComment on above:Performed By: #### CBC #### [facility] [address] [address] [address] Benoit DiggsCO2 [Moles/Vol]27.9 mmol/OZoxbmv81.0-32.0The [facility] Comment on above:Performed By: #### CBC #### [facility] [address] [address] [address] Benoit DiggsCreatinine [Mass/Vol]0.62 mg/dLNormal0.55-1.02Ohio[facility] Memorial HospitalComment on above:Performed By: #### CBC #### [facility] [address] [address] [address] Benoit KrausGFR-AF POLISH>60Normal>=60The [facility] CampusComment on above:Performed By: #### CBC #### [facility] [address] [address] [address] Benoit KrausGFR-NON AF POLISH>60Normal>=60The [facility] CampusComment on above:Performed By: #### CBC #### [facility] [address] [address] [address] Benoit DiggsGlucose [Mass/Vol]92 mg/jPWgnjim31-570Ldp [facility] Comment on above:Performed By: #### CBC #### [facility] [address] [place] [address] Dr. Benoit DiggsPotassium [Moles/Vol]4.1 mmol/LNormal3.5-5.1[facility] Comment on above:Performed By: #### CBC #### [facility] [address] [address] [address] Benoit DiggsSodium [Moles/Vol]145 mmol/PAzmovj458-801GfwOhiohealth Hardin Memorial Hospital Comment on above:Performed By: #### CBC #### [facility] [address] [address] [address] Benoit DiggsUrea nitrogen [Mass/Vol]8.0 mg/dLNormal7.0-18.0The [facility] CampusComment on above:Performed By: #### CBC #### [facility] [address] [address] [address] Benoit Sanchez nitrogen/Creatinine [Mass ratio]12.9 mg/mgNormalThe [facility] CampusComment on above:Performed By: #### CBC #### [facility] [address] [address] [address] Benoit Becerra [id number] uIU/mLNormal0.358-3.740The [facility] CampusComment on above:Performed By: #### CBC #### [facility] [address] [place] [address] Dr. Benoit Oseguera AUTO DIFFon [id number] #0.1 103/ulNormal0.0-0.1The [facility] CampusComment on above:Performed By: #### CBC #### [facility] [address] [place] [address] Dr. Benoit DiggsBasophils/100 WBC (Bld)0.7 %Normal0.2-2.0The [facility] Comment on above:Performed By: #### CBC #### [facility] [address] [place] [address] Dr. Benoit Aleman #0.4 103/ulNormal0.0-0.7The [facility] CampusComment on above: Performed By: #### CBC #### [facility] [address] [place] [address] Dr. Benoit Krausosinophils/100 WBC (Bld)3.8 %Normal0.9-7.0The [facility] Comment on above:Performed By: #### CBC #### [facility] [address] [place] [address] Dr. Benoit Krausrythrocyte distribution width (RBC) [Ratio]15.2 %Critically high 11.0-15.0The [facility] CampusComment on above:Performed By: #### CBC #### [facility] [address] [place] [address] Dr. Benoit DiggsHematocrit (Bld) [Volume fraction]28.7 %Critically low36.0-48.0 The [facility] CampusComment on above:Performed By: #### CBC #### [facility] [address] [place] [address] Dr. Benoit DiggsHemoglobin (Bld) [Mass/Vol]9.1 g/dLCritically low12.0-16.0The [facility] CampusComment on above:Performed By: #### CBC #### [facility] [address] [place] [address] Dr. Benoit Amado #0.05 10e3/ulCritically high0.00-0.03The [facility] Comment on above:Performed By: #### CBC #### [facility] [address] [place] [address] Dr. Benoit Amado %0.5 %Normal0.0-0.5The [facility] CampusComment on above: Performed By: #### CBC #### [facility] [address] [place] [address] Dr. Benoit Dennis #3.3 103/ulNormal1.2-3.8The [facility] CampusComment on above:Performed By: #### CBC #### [facility] [address] [place] [address] Dr. Benoit Beckmanhocytes/100 WBC (Bld)31.8 %Tpilmr27.5-60.0The [facility] CampusComment on above:Performed By: #### CBC #### [facility] [address] [place] [address] Dr. Benoit FuentesUAL DIFF REQNONormalThe [facility] CampusComment on above: Performed By: #### CBC #### [facility] [address] [place] [address] Dr. Benoit Fisher (RBC) [Entitic mass]25.3 pgCritically low26.7-34.0The [facility] CampusComment on above:Performed By: #### CBC #### [facility] [address] [place] [address] Dr. Benoit Lima (RBC) [Mass/Vol]31.7 g/kTJdwszw33.9-35.2The [facility] CampusComment on above:Performed By: #### CBC #### [facility] [address] [place] [address] Dr. Benoit Lima (RBC) [Entitic vol]79.9 fLCritically low81.0-99.0The [facility] CampusComment on above:Performed By: #### CBC #### [facility] [address] [place] [address] Dr. Benoit Castellano #0.7 103/ulNormal0.3-0.8The [facility] CampusComment on above:Performed By: #### CBC #### [facility] [address] [place] [address] Dr. Benoit Funezocytes/100 WBC (Bld)7.2 %Normal1.7-12.0The [facility] Comment on above:Performed By: #### CBC #### [facility] [address] [place] [address] Dr. Benoit Amaya #5.8 103/ulNormal1.4-6.5The [facility] CampusComment on above:Performed By: #### CBC #### [facility] [address] [place] [address] Dr. Benoit Herrerautrophils/100 WBC (Bld)56.0 %Sqlmrv60.0-75.0The [facility] CampusComment on above:Performed By: #### CBC #### [facility] [address] [place] [address] Dr. Benoit Pearllet mean volume (Bld) [Entitic vol]10.5 fLNormal9.5-13.5The [facility] CampusComment on above:Performed By: #### CBC #### [facility] [address] [place] [address] Dr. Benoit DiggsPLT152 103/seEakauu602-700Tpj [facility] CampusComment on above: Performed By: #### CBC #### [facility] [address] [place] [address] Dr. Benoit DiggsRBC3.59 106/ulCritically low4.20-5.40The [facility] CampusComment on above:Performed By: #### CBC #### [facility] [address] [place] [address] Dr. Benoit DiggsWBC10.3 103/ulNormal4.0-11.0The [facility] CampusComment on above:Performed By: #### CBC #### [facility] [address] [place] [address] Dr. Benoit Oseguera AUTO DIFFon [id number] #0.0 103/ulNormal0.0-0.1The [facility] CampusComment on above:Performed By: #### CBC #### [facility] [address] [address] [address] Benoit DiggsBasophils/100 WBC (Bld)0.4 %Normal0.2-2.0The [facility] Comment on above:Performed By: #### CBC #### [facility] [address] [place] [address] Dr. Benoit Aleman #0.3 103/ulNormal0.0-0.7The [facility] CampusComment on above: Performed By: #### CBC #### [facility] [address] [place] [address] Dr. Benoit Krausosinophils/100 WBC (Bld)3.1 %Normal0.9-7.0The [facility] Comment on above:Performed By: #### CBC #### [facility] [address] [place] [address] Dr. Benoit Krausrythrocyte distribution width (RBC) [Ratio]15.5 %Critically high 11.0-15.0The [facility] CampusComment on above:Performed By: #### CBC #### [facility] [address] [place] [address] Dr. Benoit DiggsHematocrit (Bld) [Volume fraction]22.0 %Critically low36.0-48.0 The [facility] CampusComment on above:Performed By: #### CBC #### [facility] [address] [place] [address] Dr. Benoit DiggsHemoglobin (Bld) [Mass/Vol]6.8 g/dLCritically low12.0-16.0The [facility] CampusComment on above:Performed By: #### CBC #### [facility] [address] [place] [address] Dr. Benoit Amado #0.05 10e3/ulCritically high0.00-0.03The [facility] Comment on above:Performed By: #### CBC #### [facility] [address] [address] [address] Benoit Amado %0.5 %Normal0.0-0.5The [facility] CampusComment on above: Performed By: #### CBC #### [facility] [address] [address] [address] Benoit Dennis #2.9 103/ulNormal1.2-3.8The [facility] CampusComment on above:Performed By: #### CBC #### [facility] [address] [address] [address] Benoit Beckmanhocytes/100 WBC (Bld)31.0 %Vivcsj24.5-60.0The [facility] CampusComment on above:Performed By: #### CBC #### [facility] [address] [place] [address] Dr. Benoit FuentesUAL DIFF REQNONormalThe [facility] CampusComment on above: Performed By: #### CBC #### [facility] [address] [place] [address] Dr. Benoit Lima (RBC) [Entitic mass]24.6 pgCritically low26.7-34.0The [facility] Hospitalment on above:Performed By: #### CBC #### [facility] [address] [place] [address] Dr. Benoit Lima (RBC) [Mass/Vol]30.9 g/sXGqclkw60.9-35.2The [facility] CampusComment on above:Performed By: #### CBC #### [facility] [address] [place] [address] Dr. Benoit Lima (RBC) [Entitic vol]79.7 fLCritically low81.0-99.0The [facility] CampusComment on above:Performed By: #### CBC #### [facility] [address] [place] [address] Dr. Benoit Castellano #0.8 103/ulNormal0.3-0.8The [facility] HospitalComment on above:Performed By: #### CBC #### [facility] [address] [place] [address] Dr. Benoit Funezocytes/100 WBC (Bld)7.9 %Normal1.7-12.0The [facility] on above:Performed By: #### CBC #### [facility] [address] [place] [address] Dr. Benoit HerreraUT #5.4 103/ulNormal1.4-6.5The [facility] CampusComment on above:Performed By: #### CBC #### [facility] [address] [place] [address] Dr. Benoit Herrerautrophils/100 WBC (Bld)57.1 %Mostsf28.0-75.0The [facility] CampusComment on above:Performed By: #### CBC #### [facility] [address] [place] [address] Dr. Benoit DiggsPlatelet mean volume (Bld) [Entitic vol]11.9 fLNormal9.5-13.5The [facility] CampusComment on above:Performed By: #### CBC #### [facility] [address] [place] [address] Dr. Beonit DiggsPLT180 103/eeIsfixv175-229Ubg [facility] CampusComment on above: Performed By: #### CBC #### [facility] [address] [place] [address] Dr. Benoit DiggsRBC2.76 106/ulCritically low4.20-5.40The [facility] CampusComment on above:Performed By: #### CBC #### [facility] [address] [place] [address] Dr. Benoit DiggsWBC9.5 103/ulNormal4.0-11.0The [facility] CampusCommclaren thumb region on above: Performed By: #### CBC #### [facility] [address] [place] [address] Dr. Benoit Ramírez [id number]TWAFZMMsb [facility] CampusComment on above:Performed By: #### CBC #### [facility] [address] [address] [address] Benoit Oseguera AUTO DIFFon [id number] #0.1 103/ulNormal0.0-0.1The [facility] CampusComment on above:Performed By: #### CBC ####[facility] [address] [place], [place] [address]DrQuincy DiggsBasophils/100 WBC (Bld)0.6 %Normal0.2-2.0The [facility] CampusComment on above:Performed By: #### CBC ####[facility] [address] [place] [address] ChangEO #0.4 103/ulNormal0.0-0.7The [facility] CampusComment on above:Performed By: #### CBC ####[facility] [address] [place], [place] [address]Dr.Yilan Krausosinophils/100 WBC (Bld)3.5 %Normal 0.9-7.0The [facility] CampusComment on above:Performed By: #### CBC ####[facility] [address] [place], [place] [address]Dr.Yilan Diggs Erythrocyte distribution width (RBC) [Ratio]15.4 %Critically high11.0-15.0The [facility] CampusComment on above:Performed By: #### CBC ####[facility] [address] [place], [place] [address]DrQuincy DiggsHematocrit (Bld) [Volume fraction]26.4 %Critically low36.0-48.0The [facility] CampusComment on above:Performed By: #### CBC ####[facility] [address] [place], [place] [address]DrQuincy DiggsHemoglobin (Bld) [Mass/Vol]8.4 g/dL Critically low12.0-16.0The [facility] CampusComment on above:Performed By: #### CBC ####[facility] [address] [place], [place] [address]Dr. Benoit DiggsIG #0.04 10e3/ulCritically high0.00-0.03The [facility] CampusComment on above:Performed By: #### CBC ####[facility] [address] [address]Dr.Benoit DiggsIG %0.4 %Normal0.0-0.5The [facility] CampusComment on above:Performed By: #### CBC ####[facility] [address] [place], [place] [address]Dr.Benoit DiggsLYMPH #2.8 103/ulNormal1.2-3.8The [facility] CampusComment on above:Performed By: #### CBC ####[facility] [address] [place], [place] [address]Dr. Benoit DiggsLymphocytes/100 WBC (Bld)26.9 %Jcnlwn29.5-60.0The [facility] Comment on above:Performed By: #### CBC ####[facility] [address] [place], [place] [address]Dr.Benoit DiggsMANUAL DIFF REQNONormalThe [facility] CampusComment on above:Performed By: #### CBC ####[facility] R[address]nuxwzct[address] [place], [place] [address]Dr.Benoit DiggsNYU LANG[facility] (RBC) [Entitic mass]24.7 pgCritically low26.7-34.0The [facility] CampusComment on above:Performed By: #### CBC ####[facility] Y[address] [place], [place] [address]Dr.Benoit DiggsHC (RBC) [Mass/Vol]31.8 g/dLNormal 29.9-35.2The [facility] CampusComment on above:Performed By: #### CBC ####[facility] Olizp[address]fly[address] [place], [place] [address]Dr. Benoit DiggsV (RBC) [Entitic vol]77.6 fLCritically low81.0-99.0The [facility] CampusComment on above:Performed By: #### CBC ####[facility] [address] [address]Dr.Benoit DiggsMONO #0.7 103/ulNormal0.3-0.8The [facility] CampusComment on above:Performed By: #### CBC ####[facility] Ghzigdespx[address] [place], [place] [address]Dr. Yilan ChangMonocytes/100 WBC (Bld)6.2 %Normal1.7-12.0The [facility] Comment on above:Performed By: #### CBC ####[facility] Nyhgnaidto[address] [place], [place] [address]Dr.Yilan ChangNEUT #6.5 103/ulNormal1.4-6.5 The [facility] CampusComment on above:Performed By: #### CBC ####[facility] [address]wh[address] [place], [place] [address]Dr.Benoit Diggs Neutrophils/100 WBC (Bld)62.4 %Gwcbjl34.0-75.0The [facility] CampusComment on above:Performed By: #### CBC ####[facility] [address] [place], [place] [address]Dr.Benoit ChangPlatelet mean volume (Bld) [Entitic vol] 11.0 fLNormal9.5-13.5The [facility] CampusComment on above:Performed By: #### CBC ####[facility] [address] [place], [place] [address]Dr. Yilan PxikfOVQ130 103/rfBpvqil015-616Aqq [facility] CampusComment on above: Performed By: #### CBC ####[facility] Wnred[address]kmz[address] [place], [place] [address]Dr.Yilan ChangRBC3.40 106/ulCritically low4.20-5.40The [facility] CampusComment on above:Performed By: #### CBC ####[facility] [address] [place], [place] [address]Dr.Yilan PmibqUNN84.4 103/ul Normal4.0-11.0The [facility] CampusComment on above:Performed By: #### CBC ####[facility] [address] [address]. Benoit Jennings SCREEN RAPID (URINE)on [id number]VXpe Bellevue HospitalComment on above:Performed By: #### CBC #### [facility] [address] [place] [address] Dr. Benoit DiggsBARNegativeNormorNEGSelect Medical Specialty Hospital - ColumbusCommclaren thumb region on above: Performed By: #### CBC #### [facility] [address] [address] [address] Benoit RiosPNegativeNormalNEGSelect Medical Specialty Hospital - ColumbusCommclaren thumb region on above: Performed By: #### CBC #### [facility] [address] [place] [address] Dr. Benoit DiggsBZONegativeNormorNEGSelect Medical Specialty Hospital - ColumbusCommclaren thumb region on above: Performed By: #### CBC #### [facility] [address] [place] [address] Dr. Benoit RamirezCNegativermorNEGSelect Medical Specialty Hospital - ColumbusCommclaren thumb region on above: Performed By: #### CBC #### [facility] [address] [place] [address] Dr. Benoit WagnerLake County Memorial Hospital - WestCommclaren thumb region on above: Result Comment: AMP (Amphetamine): 500ng/mL, BAR (Barbituates): 200 ng/mL, BZO (Benzodiazepines): 150 ng/mL, BUP (Buprenorphine): 10 ng/mL, JOSE MANUEL (Cocaine): 150 ng/mL, mAMP (Methamphetamine): 500 ng/mL, MTD (Methadone): 200 ng/mL, OPI (Opiates): 100 ng/mL, OXY (Oxycodone): 100 ng/mL, PCP (Phencyclidine): 25 ng/mL, PPX (Propoxyphene): 300 ng/mL, THC (Cannabinoids): 50 ng/mL, TCA (Trycyclic Antidepressants): 300 ng/mLPerformed By: #### CBC #### [facility] [address] [place] [address] Dr. Benoit Jennings CUT HEADERDRUG CLASS TEST SYSTEM CUT-OFF CONCENTRATIONS ARE FOLLOWS:NormalThe Spencer HospitalComment on above:Performed By: #### CBC #### [facility] [address] [address] [address] Benoit DiggsmAMPNegativeNormalNEGATIVEOhiohealth Hardin Memorial HospitalComment on above: Performed By: #### CBC #### [facility] [address] [place] [address] Dr. Benoit DiggsMTDNegativeNormalNEGATIVEOhiohealth Hardin Memorial HospitalComment on above: Performed By: #### CBC #### [facility] [address] [address] [address] Benoit DiggsOPINegativeNormalNEGATIVEOhiohealth Hardin Memorial HospitalComment on above: Performed By: #### CBC #### [facility] [address] [place] [address] Dr. Benoit DiggsOXYNegativeNormalNEGATIVEOhiohealth Hardin Memorial HospitalComment on above: Performed By: #### CBC #### [facility] [address] [address] [address] Benoit DiggsPCPNegativeNormalNEGATIVEOhiohealth Hardin Memorial HospitalCommclaren thumb region on above: Performed By: #### CBC #### [facility] [address] [place] [address] Dr. Benoit DiggsPPXNegativeNormalNEGMain Campus Medical Center on above: Performed By: #### CBC #### [facility] [address] [place] [address] Dr. Benoit DiggsTCANegativeNormalNEGATIVEOhiohealth Doctors Hospital HospitalCommclaren thumb region on above: Performed By: #### CBC #### [facility] [address] [place] [address] Dr. Benoit DiggsTHCNegativeNormalNEGATIVEKettering Memorial Hospitalment on above: Performed By: #### CBC #### [facility] [address] [place] [address] Dr. Benoit Delgado AND SCREENon [id number] AND SCREENNegativeNormalThe [facility] CampusComment on above:Performed By: #### TNS #### [facility] [address] [address] [address] Benoit Wiseman (CLEAN/CATCH) RELAY TESTER HELPER/MICRO IF IND.on [id number] Ql (U) NegativeNormalNEGATIVEKettering Memorial Hospitalment on above:Performed By: #### CBC #### [facility] [address] [address] [address] Benoit DiggsClarity (U)CLEARNormalCLEARKettering Memorial Hospitalment on above: Performed By: #### CBC #### [facility] [address] [address] [address] Benoit DiggsColor (U)YELLOWNormalYELLOWOhiohealth Hardin Memorial HospitalCommclaren thumb region on above: Performed By: #### CBC #### [facility] [address] [place] [address] Dr. Benoit DiggsGlucose Ql (U)NegativeNormalNEGATIVEOhiohealth Hardin Memorial HospitalComment on above:Performed By: #### CBC #### [facility] [address] [address] [address] Benoit DiggsHemoglobin Ql (U)NegativeNormalNEGMercy Health Anderson Hospital on above:Performed By: #### CBC #### [facility] [address] [address] [address] Benoit DiggsKetones Ql (U)NegativeNormalNEGATIVEKettering Memorial Hospitalment on above:Performed By: #### CBC #### [facility] [address] [address] [address] Benoit DiggsLEUKOCYTESNegativeNormalNEGATIVESumma Health on above:Performed By: #### CBC #### [facility] [address] [address] [address] Benoit DiggsNitrite Ql (U)NegativeNormalNEGATIVESumma Health on above:Performed By: #### CBC #### [facility] [address] [place] [address] Dr. Benoit DiggspH (U)6.0 [pH]Normal5-9The [facility] HospitalComment on above: Performed By: #### CBC #### [facility] [address] [place] [address] Dr. Benoit DiggsSPEC GRAVITY1.875Tnbtbf8.005-<=1.025The [facility] CampusComment on above:Performed By: #### CBC #### [facility] [address] [place] [address] Dr. Benoit Wiseman PROTEINTRACENormalNEGATIVE/ TRACEThe [facility] CampusComment on above:Performed By: #### CBC #### [facility] [address] [place] [address] Dr. Benoit Veras MICRO INDNOT INDICATEDNormalThe [facility] CampusComment on above:Performed By: #### CBC #### [facility] [address] [place] [address] Dr. Benoit Milesbilinogen Qn (U)4 {Nadege'U}/dLAbnormal0.2 - 1.0The [facility] Hospitalment on above:Performed By: #### CBC #### [facility] [address] [place] [address] Dr. Benoit GusmanLTPAULINE URINEon [id number] URINECulture Observations: MODERATE GROWTH OF MIXED GENITAL RIZWAN. NO POTENTIAL PATHOGENS SEEN.NormalThe [facility] CampusComment on above:Performed By: #### URCX #### [facility] [address] [place] [address] Dr. Benoit Wiseman (CLEAN/CATCH) RELAY TESTER HELPER/MICRO IF IND.on [id number] Ql (U) SMALLAbnormalNEGATIVEThe [facility] CampusComment on above:Performed By: #### CBC #### [facility] [address] [place] [address] Dr. Benoit Rodrigezarity (U)CLEARNormalCLEARThe [facility] CampusComment on above: Performed By: #### CBC #### [facility] [address] [place] [address] Dr. Benoit Loya (U)DK. ORANGEAbnormalYELLOWOhiohealth Hardin Memorial HospitalComment on above:Performed By: #### CBC #### [facility] [address] [address] [address] Benoit DiggsGlucose Ql (U)NegativeNormalNEGATIVEOhiohealth Hardin Memorial HospitalComment on above:Performed By: #### CBC #### [facility] [address] [address] Dr. Benoit DiggsHemoglobin Ql (U)NegativeNormalNEGSelect Medical Specialty Hospital - Columbus Comment on above:Performed By: #### CBC #### [facility] [address] [address] [address] Benoit DiggsKetones Ql (U)TRACEAbnormalNEGATIVEOhiohealth Hardin Memorial HospitalComment on above:Performed By: #### CBC #### [facility] [address] [place] [address] Dr. Benoit DiggsLEUKOCYTESSMALLAbnoalNEGSelect Medical Specialty Hospital - ColumbusComment on above:Performed By: #### CBC #### [facility] [address] [place] [address] Dr. Benoit DiggsNitrite Ql (U)NegativeNormalNEGSelect Medical Specialty Hospital - ColumbusComment on above:Performed By: #### CBC #### [facility] [address] [place] [address] Dr. Benoit DiggspH (U)5.5 [pH]Normal5-9Ohiohealth Hardin Memorial HospitalComment on above: Performed By: #### CBC #### [facility] [address] [place] [address] Dr. Benoit DiggsSPEC GRAVITY>=1.664Dutrcupx5.005-<=1.025[facility] Comment on above:Performed By: #### CBC #### [facility] [address] [address] [address] Benoit Wiseman CSSEOWV917 mg/dlAbnoalNEGCOMMUNITY HEALTH/ TRACEOhiohealth Hardin Memorial Hospital Comment on above:Performed By: #### CBC #### [facility] [address] [place] [address] Dr. Benoit Veras MICRO INDINDICATEDNoalThThe MetroHealth SystemComment on above: Performed By: #### CBC #### [facility] [address] [address] [address] Benoit Kahn Qn (U)8 {Nadege'U}/dLAbnormal0.2 - 1.0The [facility] on above:Performed By: #### CBC #### [facility] [address] [address] [address] Benoit Stewart MICROSCOPIC ONLYon [id number]CNXG SEENSumma Health on above:Performed By: #### CBC #### [facility] [address] [address] [address] Benoit Loco identified Cx Nom (U)INDICATEDNoalThOhioHealth Grove City Methodist Hospital on above:Performed By: #### CBC #### [facility] [address] [place] [address] Dr. Benoit Norton SEENNormalNONE SEENSumma Health on above:Performed By: #### CBC #### [facility] [address] [place] [address] Dr. Benoit Gomez LM Nom (Urine sed)NONE SEENNormalNONE SEENSumma Health on above:Performed By: #### CBC #### [facility] [address] [place] [address] Dr. Laboy ChangEpithelial cells LM Ql (Urine sed)MANYAbnormalNONE SEEN /RAREThe [facility] on above:Performed By: #### CBC #### [facility] [address] [place] [address] Dr. Benoit TalbertMALLAbnormalNONE SEENSumma Health on above:Performed By: #### CBC #### [facility] [address] [place] [address] Dr. Benoit CevallosTkfzqOVQ4-26Dxgvlqmh3-7Kkg [facility] on above:Performed By: #### CBC #### [facility] [address] [place] [address] Dr. Benoit ChristineNpwchYOQ68-78KmvprhxcVRWX SEENThe [facility] CampusComment on above: Performed By: #### CBC #### [facility] [address] [place] [address] Dr. Benoit Villarreal B STREP CULTUREon 11-18-2022S. agalactiae Ag Ql (Unsp spec) Culture Observations: NEGATIVE FOR GROUP B STREPTOCOCCUS.NormalThe [facility] CampusComment on above: Performed By: #### GBSCX #### [facility] [address] [place] [address] Dr. Benoit Oseguera AUTO DIFFon 26-19-1414YXKX #0.0 103/ulNormal0.0-0.1The [facility] CampusComment on above:Performed By: #### CBC #### [facility] [address] [place] [address] Dr. Benoit DiggsBasophils/100 WBC (Bld)0.3 %Normal0.2-2.0[facility] Comment on above:Performed By: #### CBC #### [facility] [address] [place] [address] Dr. Benoit Aleman #0.1 103/ulNormal0.0-0.7The [facility] CampusComment on above: Performed By: #### CBC #### [facility] [address] [place] [address] Dr. Benoit Krausosinophils/100 WBC (Bld)2.0 %Normal0.9-7.0The [facility] Comment on above:Performed By: #### CBC #### [facility] [address] [place] [address] Dr. Benoit Krausrythrocyte distribution width (RBC) [Ratio]12.7 %Tyeahe04.0-15.0 [facility] Hardin Memorial HospitalComment on above:Performed By: #### CBC #### [facility] [address] [place] [address] Dr. Benoit DiggsHematocrit (Bld) [Volume fraction]30.6 %Critically low36.0-48.0 [facility] HospitalComment on above:Performed By: #### CBC #### [facility] [address] [address] [address] Benoit DiggsHemoglobin (Bld) [Mass/Vol]10.1 g/dLCritically low12.0-16.0The [facility] CampusComment on above:Performed By: #### CBC #### [facility] [address] [address] [address] Benoit Amado #0.03 10e3/ulNormal0.00-0.03The [facility] CampusComment on above:Performed By: #### CBC #### [facility] [address] [address] [address] Benoit Amado %0.5 %Normal0.0-0.5The [facility] CampusComment on above: Performed By: #### CBC #### [facility] [address] [address] [address] Benoit Dennis #0.6 103/ulCritically low1.2-3.8The [facility] Comment on above:Performed By: #### CBC #### [facility] [address] [address] [address] Benoit Beckmanhocytes/100 WBC (Bld)10.7 %Critically low20.5-60.0The [facility] Hospitalment on above:Performed By: #### CBC #### [facility] [address] [address] [address] Benoit FuentesUAL DIFF REQNONormalThe [facility] CampusComment on above: Performed By: #### CBC #### [facility] [address] [address] [address] Benoit Lima (RBC) [Entitic mass]28.9 lsQvufzu92.7-34.0The [facility] CampusComment on above:Performed By: #### CBC #### [facility] [address] [address] [address] Benoit Lima (RBC) [Mass/Vol]33.0 g/vDIkypkl90.9-35.2The [facility] CampusComment on above:Performed By: #### CBC #### [facility] [address] [address] [address] Benoit LimaV (RBC) [Entitic vol]87.4 gNShgppd37.0-99.0The [facility] CampusComment on above:Performed By: #### CBC #### [facility] [address] [address] [address] Benoit Castellano #0.6 103/ulNormal0.3-0.8The [facility] CampusComment on above:Performed By: #### CBC #### [facility] [address] [place] [address] Dr. Benoit Funezocytes/100 WBC (Bld)10.9 %Normal1.7-12.0The [facility] Comment on above:Performed By: #### CBC #### [facility] [address] [place] [address] Dr. Benoit Amaya #4.4 103/ulNormal1.4-6.5The [facility] CampusComment on above:Performed By: #### CBC #### [facility] [address] [place] [address] Dr. Benoit Herrerautrophils/100 WBC (Bld)75.6 %Critically high43.0-75.0The [facility] CampusComment on above:Performed By: #### CBC #### [facility] [address] [place] [address] Dr. Benoit Pearllet mean volume (Bld) [Entitic vol]10.9 fLNormal9.5-13.5The [facility] CampusComment on above:Performed By: #### CBC #### [facility] [address] [place] [address] Dr. Benoit DiggsPLT191 103/rqDijalc795-941Chv [facility] CampusComment on above: Performed By: #### CBC #### [facility] [address] [place] [address] Dr. Benoit DiggsRBC3.50 106/ulCritically low4.20-5.40The [facility] Hospitalment on above:Performed By: #### CBC #### [facility] [address] [place] [address] Dr. Benoit DiggsWBC5.9 103/ulNormal4.0-11.0The [facility] Hospitalment on above: Performed By: #### CBC #### [facility] [address] [place] [address] Dr. Benoit Lancaster URINEon [id number] URINECulture Observations: HEAVY GROWTH OF MIXED GENITAL RIZWAN. NO POTENTIAL PATHOGENS SEEN.NormalOhiohealth Hardin Memorial HospitalComment on above:Performed By: #### URCX #### [facility] [address] [place] [address] Dr. Benoit Brower URINE PROFILEon 26-99-1150Pyjaycbds Ql (U)NegativeNormal NEGATIVEOhiohealth Hardin Memorial HospitalComment on above:Performed By: #### HIV12 #### [facility] [address] [place] [address] Dr. Benoit DiggsClronak (U)CLEARNormalCLEAROhiohealth Hardin Memorial HospitalComment on above: Performed By: #### HIV12 #### [facility] [address] [place] [address] Dr. Benoit Loya (U)YELLOWNormalYELLOWKettering Memorial Hospitalment on above: Performed By: #### HIV12 #### [facility] [address] [place] [address] Dr. Benoit Epperson micrscopic examination will be performed if indicated. NormalOhiohealth Hardin Memorial HospitalComment on above:Performed By: #### HIV12 #### [facility] [address] [place] [address] Dr. Benoit DiggsGlucose Ql (U)NegativeNormalNEGATIVEOhiohealth Hardin Memorial HospitalComment on above:Performed By: #### HIV12 #### [facility] [address] [place] [address] Dr. Benoit DiggsHemoglobin Ql (U)NegativeNormalNEGATIVEOhio State University [facility] on above:Performed By: #### HIV12 #### [facility] [address] [place] [address] Dr. Benoit Vernon Ql (U)15 mg/dlAbnormalNEGATIVEThe [facility] on above:Performed By: #### HIV12 #### [facility] [address] [place] [address] Dr. Benoit DiggsLEUKOCYTESNegativeNormalNEGATIVEThe [facility] CampusComment on above:Performed By: #### HIV12 #### [facility] [address] [place] [address] Dr. Benoit Armstrongtrvasyl Ql (U)NegativeNormalNEGATIVEThe [facility] CampusComment on above:Performed By: #### HIV12 #### [facility] [address] [place] [address] Dr. Benoit DiggspH (U)6.5 [pH]Normal5-9The [facility] CampusComment on above: Performed By: #### HIV12 #### [facility] [address] [place] [address] Dr. Benoit DiggsSPEC GRAVITY1.041Xypzsi1.005-<=1.025The [facility] CampusComment on above:Performed By: #### HIV12 #### [facility] [address] [place] [address] Dr. Benoit Wiseman PROTEINTRACENormalNEGATIVE/ TRACEThe [facility] CampusComment on above:Performed By: #### HIV12 #### [facility] [address] [place] [address] Dr. Benoit Veras MICRO INDINDICATEDNormalThThe MetroHealth SystemComment on above: Performed By: #### HIV12 #### [facility] [address] [place] [address] Dr. Benoit Thompsoninogen Qn (U)1.0 {Nadege'U}/dLNormal0.2 - 1.0The [facility] CampusComment on above:Performed By: #### HIV12 #### [facility] [address] [place] [address] Dr. Benoit COOL AGon 27-87-1509LBGOOWSCEYZNQ [facility] HospitalComment on above:Result Comment: Negative for Flu A protein angiten. Infection due to Flu A cannot be ruled out. FluA angiten in the sample may be below the detection limit of the test.Performed By: #### HIV12 #### [facility] [address] [place] [address] Dr. Benoit DiggsINFLUBNEGHSKIMBERLY [facility] HospitalComment on above: Result Comment: Negative for Flu B protein antigen. Infection due to Flu B cannot be ruled out. FluB antigen in the sample may be below the detection limit of the test.Performed By: #### HIV12 #### [facility] [address] [place] [address] Dr. Benoit Souza AGNegativeNormalNEGATIVE SEE COMMENTThe [facility] on above:Performed By: #### HIV12 #### [facility] [address] [place] [address] Dr. Benoit Gonzalez AGNegativeNormalNEGATIVE SEE COMMENTThe [facility] CampusComment on above:Performed By: #### HIV12 #### [facility] [address] [place] [address] Dr. Benoit DiggsINTERNAL CONTROLSWithin Normal LimitsNormalWithin Normal Limits The [facility] CampusComment on above:Performed By: #### HIV12 #### [facility] [address] [place] [address] Dr. Benoit DiggsPROF CHEM 8 (BAS METB)on 80-67-1334Dmuhs gap [Moles/Vol]11.6 mmol/LNormalThe [facility] CampusComment on above:Performed By: #### CBC #### [facility] [address] [place] [address] Dr. Benoit DiggsCalcium [Mass/Vol]8.2 mg/dLCritically low8.5-10.1The [facility] CampusComment on above:Performed By: #### CBC #### [facility] [address] [place] [address] Dr. Benoit DiggsChloride [Moles/Vol]100 mmol/JBsdcvj97-313BjoOhiohealth Hardin Memorial Hospital Comment on above:Performed By: #### CBC #### [facility] [address] [address] [address] Benoit DiggsCO2 [Moles/Vol]23.9 mmol/MVpavjs90.0-32.0The [facility] Comment on above:Performed By: #### CBC #### [facility] [address] [address] [address] Benoit DiggsCreatinine [Mass/Vol]0.48 mg/dLCritically low0.55-1.02The [facility] CampusComment on above:Performed By: #### CBC #### [facility] [address] [place] [address] Dr. Laboy ChangEGFR-AF POLISH>60Normal>=60The [facility] CampusComment on above:Performed By: #### CBC #### [facility] [address] [address] [address] Benoit KrausGFR-NON AF POLISH>60Normal>=60The [facility] CampusComment on above:Performed By: #### CBC #### [facility] [address] [place] [address] Dr. Benoit DiggsGlucose [Mass/Vol]94 mg/yOOiajha60-324Wxm [facility] Comment on above:Performed By: #### CBC #### [facility] [address] [address] [address] Benoit DiggsPotassium [Moles/Vol]3.5 mmol/LNormal3.5-5.1The [facility] Comment on above:Performed By: #### CBC #### [facility] [address] [address] [address] Benoit DiggsSodium [Moles/Vol]132 mmol/LCritically rlu253-821Pit [facility] CampusComment on above:Performed By: #### CBC #### [facility] [address] [address] [address] Benoit DiggsUrea nitrogen [Mass/Vol]6.0 mg/dLCritically low7.0-18.0The [facility] CampusComment on above:Performed By: #### CBC #### [facility] [address] [address] [address] Benoit DiggsUrea nitrogen/Creatinine [Mass ratio]12.5 mg/mgNormalThe [facility] CampusComment on above:Performed By: #### CBC #### [facility] [address] [address] [address] Benoit DiggsRESPIRATORY PANEL PLUSon 63-61-1950TmrczccdlvQce detectedNormal NOT DETECTEDThe [facility] CampusComment on above:Performed By: #### RSPLUS ####[facility] [address] [address]. Benoit Tierney ParapertusisNot detectedNormalNOT DETECTEDThe [facility] Comment on above:Performed By: #### RSPLUS ####[facility] [address] [place], [place] [address]Dr. Benoit Fuller. PertussisNot detected NormalNOT DETECTEDThe [facility] CampusComment on above:Performed By: #### RSPLUS ####[facility] [address] [address]Dr. Benoit DiggsChlamydia PneumoniaeNot detectedNormalNOT DETECTEDThe [facility] CampusComment on above:Performed By: #### RSPLUS ####[facility] [address] [address]Dr. Benoit Diggs Coronavirus 229ENot detectedNormalNOT DETECTEDThe [facility] CampusComment on above:Performed By: #### RSPLUS ####[facility] [address] [address]Dr. Benoit DiggsCoronavirus SGW5Pzs detectedNormalNOT DETECTEDThe [facility] CampusComment on above:Performed By: #### RSPLUS ####[facility] Eq[address]zncsks[address] [place], [place] [address]Dr. Benoit DiggsCoronavirus UP03Kwf detectedNormalNOT DETECTEDThe [facility] Comment on above:Performed By: #### RSPLUS ####[facility] Psxwdmiuv[address] [place], [place] [address]Dr. Benoit DiggsCoronavirus KH48Hwz detected NormalNOT DETECTEDThe [facility] CampusComment on above:Performed By: #### RSPLUS ####[facility] Ny[address] [place], [place] [address]Dr. Benoit DiggsInfluenza A H1 2009DetectedAbnormalNOT DETECTEDThe [facility] CampusComment on above:Performed By: #### RSPLUS ####[facility] [address]ksw[address] [place], [place] [address]Dr. Benoit DiggsInfluenza A H3 Not detectedNormalNOT DETECTEDThe [facility] CampusComment on above:Performed By: #### RSPLUS ####[facility] Xoternmomn[address] [place], [place] [address]Dr. Benoit DiggsInfluenza BNot detectedNormalNOT DETECTEDThe [facility] CampusComment on above:Performed By: #### RSPLUS ####[facility] [address] [place], [place] [address]Dr. Benoit Diggs MetapneumovirusNot detectedNormalNOT DETECTEDThe [facility] CampusComment on above:Performed By: #### RSPLUS ####[facility] Z[address]ak[address] [place], [place] [address]Dr. Benoit DiggsMycoplas. PneumoniaeNot detectedNormal NOT DETECTEDThe [facility] CampusComment on above:Performed By: #### RSPLUS ####[facility] Fcdfptab[address] [place], [place] [address]Dr. Karylan ChangParainfluenza 1Not detectedNormalNOT DETECTEDThe [facility] Comment on above:Performed By: #### RSPLUS ####[facility] Dsvgfxzphe[address] [place], [place] [address]Dr. Yilan ChangParainfluenza 2Not detected NormalNOT DETECTEDThe [facility] CampusComment on above:Performed By: #### RSPLUS ####[facility] Ibflf[address]inb[address] [place], [place] [address]Dr. Yilan ChangParainfluenza 3Not detectedNormalNOT DETECTEDThe [facility] CampusComment on above:Performed By: #### RSPLUS ####[facility] Wnpeqk[address]ce[address] [place], [place] [address]Dr. Benoit DiggsParainfluenza 4Not detectedNormalNOT DETECTEDThe [facility] on above:Performed By: #### RSPLUS ####[facility] Xofpuaurlo[address] [place], [place] [address]Dr. Benoit ChangRhino/EnterovirusNot detectedNormalNOT DETECTEDThe [facility] CampusCommclaren thumb region on above:Performed By: #### RSPLUS ####[facility] [address]nut[address] [place], [place] [address]Dr. Benoit DiggsJuanis Header 1RESPIRATORY PANEL: VIRUSESNormalThe [facility] CampusComment on above: Performed By: #### RSPLUS ####[facility] [address]bfy[address] [place], [place] [address]Dr. Benoit Licea Header 2RESPIRATORY PANEL: BACTERIA NormalThe [facility] CampusCommclaren thumb region on above:Performed By: #### RSPLUS ####[facility] Y[address]cf[address] [place], [place] [address]Dr. Benoit DiggsRSVNot detectedNormalNOT DETECTEDThe [facility] on above:Performed By: #### RSPLUS ####[facility] R[address]aesjp[address] [place], [place] [address]Dr. Benoit Farias-CoV-2 (COVID-19) RNA RANDOLPH+probe Ql (Unsp spec)Not detectedNormalNOT DETECTEDThe [facility] on above: Performed By: #### RSPLUS ####[facility] [address] [place], [place] [address]Dr. Benoit Vee Comment: When diagnostic testing is [...] for this test is supported by the [place] of Health and Human Service's declaration that [...] longer be used).Performed By: #### HIV12 #### [facility] [address] [place] [address] Dr. Benoit TURCIOSon 56-50-3224VMQJQTEDQXFWQAfwoyfzjINHK SEEN The [facility] on above:Performed By: #### HIV12 #### [facility] [address] [place] [address] Dr. Benoit Loco identified Cx Nom (U)INDICATEDNoalThOhioHealth Grove City Methodist Hospital on above:Performed By: #### HIV12 #### [facility] [address] [place] [address] Dr. Benoit Norton SEENNormalNONE SEENSumma Health on above:Performed By: #### HIV12 #### [facility] [address] [place] [address] Dr. Benoit Beckettystals LM Nom (Urine sed)NONE SEENNormalNONE SEENSumma Health on above:Performed By: #### HIV12 #### [facility] [address] [place] [address] Dr. Benoit Krauspithelial cells LM Ql (Urine sed)MODERATEAbnormalNONE SEEN /RARE The [facility] CampusCommclaren thumb region on above:Performed By: #### HIV12 #### [facility] [address] [place] [address] Dr. Benoit HessE SEENNormalNONE SEENSumma Health on above:Performed By: #### HIV12 #### [facility] [address] [place] [address] Dr. Benoit JensenUulohGRD0-3Ygbtqq7-2Wrs Spencer HospitalComment on above:Performed By: #### HIV12 #### [facility] [address] [address] [address] Benoit DiggsWBC5-10AbnormalNONE SEENThe [facility] CampusComment on above: Performed By: #### HIV12 #### [facility] [address] [address] [address] Benoit Oseguera AUTO DIFFon [id number] #0.1 103/ulNormal0.0-0.1The [facility] Hospitalment on above:Performed By: #### CBC #### [facility] [address] [place] [address] Dr. Benoit DiggsBasophils/100 WBC (Bld)0.5 %Normal0.2-2.0[facility] Comment on above:Performed By: #### CBC #### [facility] [address] [place] [address] Dr. Benoit Aleman #0.4 103/ulNormal0.0-0.7The [facility] on above: Performed By: #### CBC #### [facility] [address] [place] [address] Dr. Benoit Krausosinophils/100 WBC (Bld)4.1 %Normal0.9-7.0[facility] Comment on above:Performed By: #### CBC #### [facility] [address] [place] [address] Dr. Benoit Krausrythrocyte distribution width (RBC) [Ratio]12.8 %Gxqvdj44.0-15.0 [facility] HospitalComment on above:Performed By: #### CBC #### [facility] [address] [place] [address] Dr. Benoit DiggsHematocrit (Bld) [Volume fraction]31.4 %Critically low36.0-48.0 [facility] HospitalCommclaren thumb region on above:Performed By: #### CBC #### [facility] [address] [place] [address] Dr. Benoit DiggsHemoglobin (Bld) [Mass/Vol]10.5 g/dLCritically low12.0-16.0The [facility] CampusComment on above:Performed By: #### CBC #### [facility] [address] [place] [address] Dr. Benoit Amado #0.05 10e3/ulCritically high0.00-0.03The [facility] Comment on above:Performed By: #### CBC #### [facility] [address] [place] [address] Dr. Benoit Amado %0.5 %Normal0.0-0.5The [facility] CampusComment on above: Performed By: #### CBC #### [facility] [address] [place], [place] [address] Dr. Benoit Dennis #2.2 103/ulNormal1.2-3.8The [facility] CampusComment on above:Performed By: #### CBC #### [facility] [address] [place] [address] Dr. Benoit Beckmanhocytes/100 WBC (Bld)21.9 %Rmgbjr74.5-60.0The [facility] CampusComment on above:Performed By: #### CBC #### [facility] [address] [place] [address] Dr. Benoit Real DIFF REQNONormalThe [facility] CampusComment on above: Performed By: #### CBC #### [facility] [address] [place] [address] Dr. Benoit Fisher (RBC) [Entitic mass]29.7 cxUpkdje53.7-34.0The [facility] CampusComment on above:Performed By: #### CBC #### [facility] [address] [place] [address] Dr. Benoit Lima (RBC) [Mass/Vol]33.4 g/kSWpljck95.9-35.2The [facility] CampusComment on above:Performed By: #### CBC #### [facility] [address] [place] [address] Dr. Yilan ChangMCV (RBC) [Entitic vol]89.0 rTVbrqdp90.0-99.0The [facility] CampusComment on above:Performed By: #### CBC #### [facility] [address] [place] [address] Dr. Benoit Castellano #0.6 103/ulNormal0.3-0.8The [facility] CampusComment on above:Performed By: #### CBC #### [facility] [address] [place] [address] Dr. Benoit Funezocytes/100 WBC (Bld)5.7 %Normal1.7-12.0The [facility] Comment on above:Performed By: #### CBC #### [facility] [address] [place] [address] Dr. Benoit Amaya #6.8 103/ulCritically high1.4-6.5The [facility] Comment on above:Performed By: #### CBC #### [facility] [address] [place] [address] Dr. Benoit Herrerautrophils/100 WBC (Bld)67.3 %Fckwfm08.0-75.0The [facility] CampusComment on above:Performed By: #### CBC #### [facility] [address] [place] [address] Dr. Benoit Pearllet mean volume (Bld) [Entitic vol]11.0 fLNormal9.5-13.5The [facility] CampusComment on above:Performed By: #### CBC #### [facility] [address] [place] [address] Dr. Benoit RaderT215 103/ovVcfvoj727-210Nog [facility] CampusComment on above: Performed By: #### CBC #### [facility] [address] [place] [address] Dr. Benoit DiggsRBC3.53 106/ulCritically low4.20-5.40The [facility] CampusComment on above:Performed By: #### CBC #### [facility] [address] [place] [address] Dr. Benoit DiggsWBC10.2 103/ulNormal4.0-11.0Ohiohealth Hardin Memorial HospitalComment on above:Performed By: #### CBC #### [facility] [address] [place] [address] Dr. Benoit DiggsGLUCOSE - 1HRon 30-79-0984Myfiehq [Mass/Vol]116 mg/dLCritically equx15-547KzxOhiohealth Hardin Memorial HospitalComment on above:Performed By: #### GLU1HR ####[facility] [address] [address]Dr. Benoit Mcconnell ACOG PANEL 2: 21 to 29on 08-13-2022..NormalOhiohealth Hardin Memorial Hospital Comment on above:Performed By: #### CBC #### [facility] [address] [place] [address] Dr. Benoit Flores Gdln ACOG Cheutnx56-19GgujhyKzpSumma Health Wadsworth - Rittman Medical CenterComment on above:Performed By: #### CBC #### [facility] [address] [place] [address] Dr. Benoit DiggsDIAGNOSIS:CommentMercy Memorial HospitalCommclaren thumb region on above: Result Comment: NEGATIVE FOR INTRAEPITHELIAL LESION OR MALIGNANCY.Performed By: #### CBC #### [facility] [address] [place] [address] Dr. Benoit DiggsMethodology:CommentNoSumma Health Wadsworth - Rittman Medical CenterComment on above: Result Comment: This liquid based ThinPrep(R) pap test was screened with the use of an image guided system.Performed By: #### CBC #### [facility] [address] [place] [address] Dr. Benoit DiggsNote:CommentMercy Health Willard Hospital on above:Result Comment: The Pap smear is a screening test designed to aid in the detection of premalignant and malignant conditions of the uterine cervix. It is not a diagnostic procedure and should not be used as the sole means of detecting cervical cancer. Both false-positive and false-negative reports do occur. .Performed By: #### CBC #### [facility] [address] [place] [address] Dr. Benoit DiggsPerformed by:CommentMercy Health Willard Hospital on above: Result Comment: Cynthia Smith, Gin Pole Operator (ASCP)Performed By: #### CBC #### [facility] [address] [place] [address] Dr. Benoit DiggsReflex Criteria:CommentMercy Health Willard Hospital on above:Result Comment: The HPV DNA reflex criteria were not met with this specimen result therefore, no HPV testing was performed. .Performed By: #### CBC #### [facility] [address] [place] [address] Dr. Benoit DiggsSpecimen adequacy:CommentMercy Health Willard Hospital on above:Result Comment: Satisfactory for evaluation. No endocervical component is identified.Performed By: #### CBC #### [facility] [address] [place] [address] Dr. Benoit DiggsCHLAMYDIA/GONOCOCCUS RANDOLPH (SWAB/URINE/PAPon 77-75-3797Zxxhmdujr trachomatis, NAANegativeNormalNegativeThe [facility] CampusCommclaren thumb region on above: Performed By: #### HIV12 #### [facility] [address] [place] [address] Dr. Benoit DiggsNeisseria gonorrhoeae, NAANegativeNormalNegativeSumma Health on above:Performed By: #### HIV12 #### [facility] [address] [place] [address] Dr. Benoit Hampton PREG INCOMPLETE ANATOMYon [id number] PREG INCOMPLETE ANATOMY EXAMINATION: US PREG INCOMPLETE [...] Electronically authenticated by: MYLENE SULLIVAN Date: 2022-08-07 20:09[facility] PREG ANATOMY SINGLEon [id number] PREG ANATOMY SINGLE EXAMINATION: US PREG ANATOMY [...] Electronically authenticated by: AISHWARYA MAGALLON Date: 2022-07-25 17:11NoSumma Health Wadsworth - Rittman Medical CenterAFP MATERNAL FOR SPINA BIFIDAon 68-65-8087FWQ MoM0.55NoSumma Health Wadsworth - Rittman Medical CenterComment on above:Performed By: #### HIV12 #### [facility] [address] [place] [address] Dr. Benoit Chavarria Value20.0 ng/mLNCentervilleComment on above: Performed By: #### HIV12 #### [facility] [address] [place] [address] Dr. Benoit Chavarria, Serum for Spina BifidaReToledo Hospital Comment on above:Performed By: #### HIV12 #### [facility] [address] [place] [address] Dr. Benoit PricementSumma Health Akron CampusComment on above:Result Comment: Caitlin Palafox, Ph.D., [facility] Director . References: Available Upon Request. . Multiples Of Median Cutoffs For AFP Elevations Caro 2.5 Black 2.8 IDD 2.0 Twins 4.5 Abbreviation Definitions IDD - Insulin Dep Diabetes OSBR - Open Spina Bifida Risk . For further inquiries contact [facility] at [phone]. . This test was developed and its performance characteristics determined by [employer]. It has not been cleared or approved by the Food and Drug Administration.Performed By: #### HIV12 #### [facility] [address] [place] [address] Dr. Benoit Rodriguez Age Collection Date18.1 weeksMercy [facility] Hospital Comment on above:Performed By: #### HIV12 #### [facility] [address] [place] [address] Dr. Benoit Gillis, Age Based onUltCoshocton Regional Medical CenterComment on above:Result Comment: 13:1 on 06/06/2022 Recalculations are not recommended when gestational dating by LMP and ultrasound are within 10 days.Performed By: #### HIV12 #### [facility] [address] [place] [address] Dr. Benoit DiggsInsulin Dep DiabetesNoNCentervilleComment on above:Performed By: #### HIV12 #### [facility] [address] [place] [address] Dr. Benoit DiggsInterpretationSumma Health Akron CampusComment on above: Result Comment: Interpretation: Screen Negative [...] Customer Services to discuss available options. The [employer] recommends amniocentesis be offered to women age 35 and older.Performed By: #### HIV12 #### [facility] [address] [place] [address] Dr. Benoit Vornajoo Age at EDD22.1 yrMercy Memorial HospitalComment on above:Performed By: #### HIV12 #### [facility] [address] [place] [address] Dr. Benoit Scottltiplmally GestationNoNCentervilleComment on above: Performed By: #### HIV12 #### [facility] [address] [place] [address] Dr. Beonit DiggsOSBR Risk 1 [id number] Memorial HospitalComment on above: Performed By: #### HIV12 #### [facility] [address] [place] [address] Dr. Benoit Stockton.NormalOhiohealth Hardin Memorial HospitalComment on above:Performed By: #### HIV12 #### [facility] [address] [place] [address] Dr. Benoit MorrisCaucasianNCentervilleComment on above: Performed By: #### HIV12 #### [facility] [address] [place] [address] Dr. Benoit DiggsTest Results:NegativeMercy Memorial HospitalComment on above: Performed By: #### HIV12 #### [facility] [address] [place] [address] Dr. Benoit Ramirez B SURFACE ANTIGEN SCREENon 13-28-9759XSqYq ScreenNegative NormalNegativeSumma Health on above:Performed By: #### HIV12 #### [facility] [address] [place] [address] Dr. Benoit Watt C VIRUS AB W/ REFLEX QUANTon [id number] AB<0.1Normal 0.0-0.9The [facility] on above:Performed By: #### HIV12 #### [facility] [address] [place] [address] Dr. Benoit DiggsInterpretation:CommentNormalThe [facility] on above:Result Comment: Negative Not infected with HCV, unless recent infection is suspected or other evidence exists to indicate HCV infection.Performed By: #### HIV12 #### [facility] [address] [place] [address] Dr. Benoit DiggsHIV 1 AND 2 WITH REFLEXon 34-42-7842TRP Screen 4th Generation wRfxNon-ReactiveNormalNon ReactiveThe [facility] on above:Result Comment: HIV Negative HIV-1/HIV-2 antibodies and HIV-1 p24 antigen were NOT detected. There is no laboratory evidence of HIV infection.Performed By: #### HIV12 #### [place] [address] Dr[address] Benoit DiggsRPR QUANTon 64-67-4652Dzdzc Plasma Reagin, QuantNon-Reactive NormalNonRea<1:1The [facility] on above:Result Comment: Please Note: This test does not meet current guidelines for screening and diagnosis of syphilis. This test is intended for following treatment response in patients being treated for syphilis infection. To screen for syphilis infection, a reflex cascade that includes both RPR and a treponema-specific assay should be utilized, such as Treponema pallidum (Syphilis) Screening Wolfe (012681) or Rapid Plasma Reagin (RPR) Test With Reflex to Quantitative RPR and Confirmatory Treponema pallidum Antibodies (566507).Performed By: #### HIV12 #### [place] [address] [address] Benoit DiggsRUBELLA AB IGGon 86-87-0261Cbnvuew Antibodies, IgG3.22 index NormalImmune >0.99The [facility] on above:Result Comment: Non- immune <0.90 Equivocal 0.90 - 0.99 Immune >0.99Performed By: #### CBC #### [facility] [address] [address] [address] Benoit Hampton PREG <14 WKSon [id number] PREG <14 WKSEXAMINATION: US PREG <14 WKS [...] authenticated by: MYLENE SULLIVAN Date: 2022-06-06 22:25NoThe [facility] AUTO DIFFon [id number] #0.1 103/ulNormal0.0-0.1Ohiohealth Hardin Memorial HospitalComment on above:Performed By: #### CBC #### [facility] [address] [place] [address] Dr. Benoit Taborsophils/100 WBC (Bld)0.6 %Normal0.2-2.0[facility] Comment on above:Performed By: #### CBC #### [facility] [address] [place] [address] Dr. Benoit Aleman #0.3 103/ulNormal0.0-0.7The [facility] CampusComment on above: Performed By: #### CBC #### [facility] [address] [place] [address] Dr. Benoit Krausosinophils/100 WBC (Bld)4.1 %Normal0.9-7.0[facility] Comment on above:Performed By: #### CBC #### [facility] [address] [place] [address] Dr. Benoit Krausrythrocyte distribution width (RBC) [Ratio]13.9 %Kjrglm31.0-15.0 The [facility] CampusComment on above:Performed By: #### CBC #### [facility] [address] [place] [address] Dr. Benoit DiggsHematocrit (Bld) [Volume fraction]36.0 %Ypumwk02.0-48.0The [facility] CampusComment on above:Performed By: #### CBC #### [facility] [address] [place] [address] Dr. Benoit DiggsHemoglobin (Bld) [Mass/Vol]12.0 g/xUEmxbtm19.0-16.0The Spencer HospitalComment on above:Performed By: #### CBC #### [facility] [address] [place] [address] Dr. Benoit Amado #0.03 10e3/ulNormal0.00-0.03The [facility] CampusComment on above:Performed By: #### CBC #### [facility] [address] [place] [address] Dr. Benoit Amado %0.4 %Normal0.0-0.5The [facility] CampusComment on above: Performed By: #### CBC #### [facility] [address] [place] [address] Dr. Benoit Dennis #2.7 103/ulNormal1.2-3.8The [facility] CampusComment on above:Performed By: #### CBC #### [facility] [address] [place] [address] Dr. Benoit Pantojamphocytes/100 WBC (Bld)33.2 %Iictba34.5-60.0The [facility] CampusComment on above:Performed By: #### CBC #### [facility] [address] [place] [address] Dr. Benoit DiggsMANUAL DIFF REQNONormalThe [facility] CampusComment on above: Performed By: #### CBC #### [facility] [address] [place] [address] Dr. Benoit Fisher (RBC) [Entitic mass]29.4 bqPylcnw54.7-34.0The [facility] CampusComment on above:Performed By: #### CBC #### [facility] [address] [address] [address] Benoit LimaHC (RBC) [Mass/Vol]33.3 g/tCFwzlbq25.9-35.2The [facility] CampusComment on above:Performed By: #### CBC #### [facility] [address] [address] [address] Benoit LimaV (RBC) [Entitic vol]88.2 dHLkwibq40.0-99.0The [facility] HospitalComment on above:Performed By: #### CBC #### [facility] [address] [place] [address] Dr. Benoit Castellano #0.5 103/ulNormal0.3-0.8The [facility] CampusComment on above:Performed By: #### CBC #### [facility] [address] [place] [address] Dr. Benoit Funezocytes/100 WBC (Bld)6.6 %Normal1.7-12.0The [facility] Comment on above:Performed By: #### CBC #### [facility] [address] [address] [address] Benoit Amaya #4.4 103/ulNormal1.4-6.5The [facility] CampusComment on above:Performed By: #### CBC #### [facility] [address] [place] [address] Dr. Benoit Herrerautrophils/100 WBC (Bld)55.1 %Wsvonc37.0-75.0The [facility] CampusComment on above:Performed By: #### CBC #### [facility] [address] [address] [address] Benoit Pearllet mean volume (Bld) [Entitic vol]11.0 fLNormal9.5-13.5The [facility] CampusComment on above:Performed By: #### CBC #### [facility] [address] [address] [address] Benoit DiggsPLT225 103/xyXunzuz215-412Omy [facility]ernsey Memorial Hospitalment on above: Performed By: #### CBC #### [facility] [address] [address] [address] Benoit DiggsRBC4.08 106/ulCritically low4.20-5.40The [facility]sey Memorial Hospitalment on above:Performed By: #### CBC #### [facility] [address] [address] [address] Benoit DiggsWBC8.1 103/ulNormal4.0-11.0The [facility] Hospitalment on above: Performed By: #### CBC #### [facility] [address] [address] [address] Benoit DiggsCULTURE URINEon 29-22-6192UMCMRMG URINECulture Observations: MODERATE GROWTH OF MIXED GENITAL RIZWAN. NO POTENTIAL PATHOGENS SEEN.NormalThe [facility]sey Memorial Hospitalment on above:Performed By: #### URCX ####[facility] [address] [address]Dr. Benoit Diggs GLYCOHEMOGLOBIN A1Con [id number] RECOMMENDATIONSEE BELOWNoSumma Health Wadsworth - Rittman Medical CenterCommclaren thumb region on above:Result Comment: ADA RECOMMENDED LIMIT 4.0 - 6.0 ADA THERAPEUTIC TARGET < 7.0 ACTION SUGGESTED > 7.0Performed By: #### CBC #### [facility] [address] [place] [address] Dr. Benoit DiggsGlucose [Mass/Vol]105 mg/dLNoKettering Health – Soin Medical Center on above:Performed By: #### CBC #### [facility] [address] [place] [address] Dr. Benoit DiggsHbA1c (Bld) [Mass fraction]5.3 %Normal4.5-6.2The [facility] on above:Performed By: #### CBC #### [facility] [address] [address] [address] Benoit Flowers BOX TEST PT SEND OUTon [id number] TO REF LAB06/06/2022 NormalThe [facility] on above:Performed By: #### HIV12 #### [facility] [address] [address] [address] Benoit DiggsTYPE AND SCREENon 24-71-7810XTXU AND SCREENNegativeMercy Memorial HospitalComment on above:Performed By: #### TNS #### [facility] [address] [place] [address] Dr. Benoit DiggsPREG QUANT HCGon 24-16-1412GZW TUTEE66767 mIU/mLNormalOhiohealth Hardin Memorial HospitalComment on above:Performed By: #### CBC #### [facility] [address] [address] [address] Benoit DiggsHCG RANGESEE BELOWMercy Memorial HospitalComment on above: Result Comment: 5-50 0-1 WEEK 40-300 1-2 WEEKS 100-1,000 2-3 WEEKS 500-6,000 3-4 WEEKS 5,000-200,000 1-2 MONTHS 10,000-100,000 2-3 MONTHS 3,000-50,000 2ND TRIMESTER 1,000-50,000 3RD TRIMESTERPerformed By: #### CBC #### [facility] [address] [place] [address] Dr. Benoit Diggs Vital Signs Date TimeVital SignValuePerforming XfcqgulbzLzqlngnf89-89-7651 10:55-0500Body mass index (BMI) [Ratio]53.47 kg/m2Gia LYNN Work Phone: [facility] HealthcareReeitcpjwy09-60-4357 10:55-0500Body cqnedn376.37 kgGia LYNN Work Phone: [phone] HealthcareXtqherhryt36-53-2205 10:55-0500Diastolic blood itwdktym50 mm[Hg]Gia LYNN Work Phone: [phone] HealthcareJlqremcuvu34-73-4201 10:55-0500Systolic blood cqsxfuir256 mm[Hg]Gia LYNN Work Phone: [facility] HealthcareSwvviznmqd36-36-1496 13:55-0400Body mass index (BMI) [Ratio]53.12 kg/k9LrhsiJefferson Howard DO Work Phone: [facility] HealthcareRxzjowvqvt14-76-7290 13:55-0400Body .52 kgCorey Anita DO Work Phone: [phone] [place], [place] [address]Mgpohkjwcl54-38-1482 13:55-0400Diastolic blood lmkxlgyb41 mm[Hg]Jefferson Anita DO Work Phone: [phone] [place], [place] [address]Sswalatjdw81-62-7421 13:55-0400Systolic blood udqjfnti966 mm[Hg]Jefferson Anita DO Work Phone: [phone] [place], [place] [address]Whmlboipan33-96-5498 14:07-0400Body mass index (BMI) [Ratio]54 kg/m2Amy Vamsi LYNN Work Phone: [phone] [place], [place] [address]Isihpcaxmq80-23-2651 14:07-0400Body btiqms821.64 kgAmy Vamsi LYNN Work Phone: [phone] [place], [place] [address]Uektrghvdl08-66-0598 14:07-0400Diastolic blood oqexvxys02 mm[Hg]Gia LYNN Work Phone: [phone] [place], [place] [address]Ntslnxcmoj86-58-2656 14:07-0400Systolic blood igjnmyps909 mm[Hg]Gia LYNN Work Phone: [phone] [place], [place] [address]Svvlburfvi39-86-9483 13:59-0400Body mass index (BMI) [Ratio]53.17 kg/l6Zueob Anita DO Work Phone: [phone] [place], [place] [address]Mfmdowmpra08-72-3618 13:59-0400Body qcgfaf594.64 kgCorey Anita DO Work Phone: [phone] [place], [place] [address]Lxxgkjcyuy83-43-3166 13:59-0400Diastolic blood akkphiha52 mm[Hg]Jefferson Anita DO Work Phone: [phone] [place] [address]-19-2025 13:59-0400Systolic blood mm[Hg]Jefferson Anita DO Work Phone: [phone] [place], [place] [address]Epkkxdymbz77-17-0253 14:05-0400Body mass index (BMI) [Ratio]53.51 kg/r2RimnhMon[facility]07-17-2025 14:05-0400Body weight 128.46 kgMonroe Community Hospital07-17-2025 14:05-0400Diastolic blood nravykko11 mm[Hg][facility]07-17-2025 14:05-0400Systolic blood jywahupp580 mm[Hg][facility]04-16-2025 10:44-0400Body mass index (BMI) [Ratio] 52.91 kg/w3Zkygh Anita DO Work Phone: [phone] [place], [place] [address]Gfargvouxx22-37-5424 10:44-0400Body hkfmby208.01 kgCorey Anita DO Work Phone: [phone] [place] [address]-16-2025 10:44-0400Diastolic blood mm[Hg]Jefferson Anita DO Work Phone: [phone] [place] [address]-16-2025 10:44-0400Systolic blood yceljmab490 mm[Hg]Jefferson Anita DO Work Phone: [phone] [place], [place] [address]Ydlierjogy77-91-7736 13:48-0400Body mass index (BMI) [Ratio]52.93 kg/r3Vmswn Anita DO Work Phone: [phone] [place], [place] [address]Zqbofcyosn12-44-7690 13:48-0400Body vusbbg055.06 kgCorey Anita DO Work Phone: [phone] [place], [place] [address]Pwvlfntdeb10-16-2134 13:48-0400Diastolic blood utvwjdzd60 mm[Hg]Jefferson Anita DO Work Phone: [phone] [place] [address]-31-2025 13:48-0400Systolic blood dwnhjtne662 mm[Hg]Jefferson Anita DO Work Phone: [phone] [place] [address]-05-2025 10:54-0500Body mass index (BMI) [Ratio]52.93 kg/m2Gia LYNN Work Phone: [phone] [place] [address]-05-2025 10:54-0500Body femkwo548.06 kgGia LYNN Work Phone: [phone]-[facility] [address]Lymncmamkc88-83-1163 10:54-0500Diastolic blood fqgfehxj57 mm[Hg]Gia LYNN Work Phone: [facility] HealthcareSavgvlakic14-27-7848 10:54-0500Systolic blood dcletqfq779 mm[Hg]Gia LYNN Work Phone: [facility] HealthcareWnzqamydzp77-12-1902 12:56-0500Body mass index (BMI) [Ratio]53.09 kg/n0Phhvl Anita DO Work Phone: [phone] [place], [place] [address]Jymvaueknh28-96-8650 12:56-0500Body gggnwe657.46 kgCorey Anita DO Work Phone: [phone]-[facility] HealthcareNcqdasafmj21-49-1936 12:56-0500Diastolic blood zmzabznk22 mm[Hg]Jefferson Anita DO Work Phone: [phone] [place], [place] [address]Phedvbgond62-95-0910 12:56-0500Systolic blood asckqtuk114 mm[Hg]Jefferson Anita DO Work Phone: [phone] [place], [place] [address]Xivtrfyhma55-31-9737 08:42-0500Body mass index (BMI) [Ratio]53.55 kg/o0Eourc Anita DO Work Phone: [phone] [place], [place] [address]Uotstkhplq62-66-3573 08:42-0500Body .55 kgCorey Anita DO Work Phone: [phone]-[facility] HealthcareByzmwctnwz69-23-6023 14:06-0500Diastolic blood erysvydk09 mm[Hg]Manuel Noel MD Work Phone: [facility]11-19-2024 14:06-0500 Heart rate77 /minManuel Noel MD Work Phone: [facility]11-19-2024 14:06-0500 Respiratory rate18 /minManuel Noel MD Work Phone: [facility]11-19-2024 14:06-0500 SaO2% (BldA) [Mass fraction]98 %Manuel Noel MD Work Phone: [facility]11-19-2024 14:06-0500 Systolic blood luejtima413 mm[Hg]Manuel Noel MD Work Phone: [phone] [place], [place] 8603011-19-2024 12:39-0500 Body vluqkn390.94 cmManuel Noel MD Work Phone: [phone]11-19-2024 12:39-0500 Body ycqqli937 kgManuel Noel MD Work Phone: [phone]11-05-2024 09:31-0500 Body jjryqy767.94 cmManuel Noel MD Work Phone: [phone]11-05-2024 09:31-0500 Body mass index (BMI) [Ratio]53.4 kg/m2Manuel Nole MD Work Phone: [phone]11-05-2024 09:31-0500 Body plsinl340.16 kgManuel Noel MD Work Phone: [phone]09-28-2022 02:06-0400 Body oqpjml922.6992 kgDR DOCTOR [facility] HospitalComment on above: Performed By: #### HIV12 #### [facility] [address] [address] [address] Benoit Diggs Encounters Encounter DateEncounter TypeCare ProviderFacilityStart: 08-31-2025 End: 71-36-0055Sdghrl Epi LYNN Work Phone: [facility] OBGYNStart: 08-31-2025 End: 16-65-0835Ehuksi Epi LYNN Work Phone: [facility]BGYNStart: 08-31-2025 End: 36-60-2825Apsdoz outpatient visit 15 minutesGia LYNN Work Phone: NOXE Emma OBGYNComment on above:Second trimester ([facility]); 23 weeks gestation of ([facility]); Diabetes mellitus screeningStart: 08-31-2025 End: 61-20-4939yyurcklaiuOJW RAMLIBANNot AvailableStart: 42-65-6101Lyv-patient / Non-visit([place]) Bello Marks DO-[facility] Work Phone: Start: 08-29-2025 End: 19-36-7838xvilprwsfoAkyk E Hay ([facility])-LAB Path Spec Emma HospStart: 08-29-2025 End: 14-73-6582Egyubkiv ReferredBello Marks ([facility]) DO-LAB Path Spec [facility] Start: 08-23-2025 End: 64-60-3328uqnjecurpgKUBUDWEQMercy Health Clermont Hospitaltart: 08-23-2025 End: 48-39-3128Ybjnnugte department patient visitMARFulton State Hospital HospitalStart: 08-10-2025 End: 80-07-9701ixlfcbndwmTEFYW FAZIONot AvailableStart: 08-02-2025 End: 42-13-7077Mflqxb flowsheetCorey Anita DO Work Phone: [facility] OBGYNStart: 08-02-2025 End: 46-12-6708Uyndym flowsheetCorey Anita DO Work Phone: [facility]BGYNStart: 08-02-2025 End: 69-61-6979Bxirqfuss Result EncounterCorey Anita DO Work Phone: NOIO External Department UnsolicitedStart: 08-02-2025 End: 93-90-9403Lxnhkq outpatient visit 15 minutesCorey Anita DO Work Phone: NOMS Emma OBGYNComment on above:Second trimester ([facility]); 19 weeks gestation of ([facility]); Screening, , for anatomic survey ([facility]); LGSIL of cervix of undetermined significanceStart: 08-02-2025 End: 40-73-7095dkjyqnkafiRBIQQ FAZIONot AvailableStart: 07-25-2025 End: 76-50-3794Quczevthf Result EncounterAmy Vamsi PA Work Phone: no External Department UnsolicitedStart: 07-25-2025 End: 51-97-2506Wkxqcfmtb Result EncounterGia LYNN Work Phone: NOMS External Department UnsolicitedStart: 07-05-2025 End: 52-98-8573Fntnqs flowsheetGia LYNN Work Phone: NO Emma OBGYNStart: 07-05-2025 End: 34-35-5026Wwzzzb flowsheetGia LYNN Work Phone: NO Emma OBGYNStart: 07-05-2025 End: 32-12-1327Hujmspct Result EncounterGai LYNN Work Phone: no External Department UnsolicitedStart: 07-05-2025 End: 99-45-0107Sdemsr outpatient visit 15 minutesAmy Vamsi LYNN Work Phone: NO Emma OBGYNComment on above:15 weeks gestation of ([facility]); Second trimester ([facility]); Exposure to STD; Vaginal discharge; NauseaStart: 07-05-2025 End: 28-15-9782pihuarepiwZHH RAMEYNot AvailableStart: 06-07-2025 End: 14-23-4140Aqyvps flowsheetCorey Anita DO Work Phone: [facility] OBGYNStart: 06-07-2025 End: 73-34-7558Ztqoun flowsheetCorey Anita DO Work Phone: NO Emma OBGYNStart: 06-07-2025 End: 98-58-9800Vfmuhjpzh Result EncounterCorey Anita DO Work Phone: noms External Department UnsolicitedStart: 06-07-2025 End: 40-36-9938Nerzml outpatient visit 15 minutesCorey Anita DO Work Phone: noms Emma OBGYNComment on above:First trimester ([facility]); 11 weeks gestation of ([facility]); Right ovarian cyst; Nausea; PCOS (polycystic ovarian syndrome)Start: 06-07-2025 End: 38-05-1662tqxyddsjsnNHIAV FAZIONot AvailableStart: 05-24-2025 End: 17-42-8767Tmbuoeatc Result EncounterCorey Anita DO Work Phone: noms External Department UnsolicitedStart: 05-24-2025 End: 68-66-1402Vfmmchcco Result EncounterCorey Anita DO Work Phone: noms External Department UnsolicitedStart: 05-05-2025 End: 43-32-5544Kaojpw outpatient visit 5 minutesFazio Nurse Noms Bcp ObNOMS BCP OBComment on above:GA: 6d6mOdvyr: 05-05-2025 End: 30-52-8290luduldpdecTYSRW FAZIONot AvailableStart: 04-14-2025 End: 52-39-9775Oiqpaxpxo department patient visitUniversity Hospitals Health Systemtart: 02-09-2025 End: 13-36-9638Ijcfemgfq Result EncounterGeneric External Data ProviderNOMS External Department UnsolicitedStart: 02-09-2025 End: 34-97-0949Rgevggyic Result EncounterGeneric External Data ProviderNOMS External Department UnsolicitedStart: 02-02-2025 End: 09-50-3846Xlfgit flowsheetCorey Anita DO Work Phone: NOMS BCP OBStart: 02-02-2025 End: 23-97-5064Whrmoq flowsheetCorey Anita DO Work Phone: NOMS BCP OBStart: 02-02-2025 End: 73-64-3276Lpzahh outpatient visit 15 minutesCorey Anita DO Work Phone: NOMS BCP OBComment on above:Encounter to discuss test results; Elevated TSHStart: 02-02-2025 End: 17-51-9192wfwbmyhkdqTXPHJ FAZIONot AvailableStart: 01-17-2025 End: 14-55-0600Kuxdiuu encounter procedureCorey Anita DO Work Phone: noms BCP OBComment on above:LGSIL of cervix of undetermined significanceStart: 01-17-2025 End: 07-88-2435cedtahjhkrCemy Naderer MD Work Phone: [facility] Work Phone: Start: 01-17-2025 End: 36-48-1809Pkvlhogp Nicola Noel MD Work Phone: [facility]-LAB Path Spec Emma HospStart: 01-12-2025 End: 81-40-1241iewwrftkbhDNRFH FAZIONot AvailableStart: 01-03-2025 End: 69-28-6087yssnaphdlvEayh Naderer MD Work Phone: [facility] Work Phone: Start: 01-03-2025 End: 57-44-1443Yofyrzfh Nicola Noel MD Work Phone: [facility]-LAB Path Spec Spencer HospStart: 12-22-2024 End: 36-41-7373Akzcax flowsheetGia LYNN Work Phone: noms BCP OBStart: 12-22-2024 End: 53-79-0773Xkrqse flowsheetGia LYNN Work Phone: NOTK BCP OBStart: 12-22-2024 End: 10-64-7367Toxhcjwca Result EncounterGeneric External Data ProviderNOMS External Department UnsolicitedStart: 12-22-2024 End: 01-18-5266Akaesol encounter procedureGia LYNN Work Phone: noMS HealthcareStart: 12-22-2024 End: 20-54-5207Hqbzqpwi preventive med est patient 18-39 yrsGia LYNN Work Phone: noms BCP OBComment on above: control counseling (Primary Dx); Well woman exam with routine gynecological exam; Pelvic pain in femaleStart: 12-22-2024 End: 20-75-3147hsknlmacysOET RAMEYNot AvailableStart: 12-02-2024 End: 91-22-4737Fezoofu encounter procedureCorey Anita DO Work Phone: noms BCP OBComment on above:Encounter for removal of etonogestrel implantStart: 12-02-2024 End: 58-26-5171ilcqnuwwclWPLGZ FAZIONot AvailableStart: 11-30-2024 End: 46-41-5579slulpuzkckZLBLL FAZIONot AvailableStart: 11-11-2024 End: 19-38-4167Yhrpxd flowsheetCorey Anita DO Work Phone: noms BCP OBStart: 11-11-2024 End: 60-74-0026Ztpgol flowsheetCorey Anita DO Work Phone: noms BCP OBStart: 11-11-2024 End: 45-55-7657Mtjmmcpxx Result EncounterGeneric External Data ProviderNOMS External Department UnsolicitedStart: 11-11-2024 End: 96-85-6554Oqwnit outpatient visit 15 minutesCorey Anita DO Work Phone: noms [facility] OBComment on above:Right ovarian cyst; Nausea; PCOS (polycystic ovarian syndrome)Start: 11-11-2024 End: 59-07-9289upkjxqzqpaRZBGY FAZIONot AvailableStart: 14-45-0813Nja-patient / Non-visitManuel Noel MD Work Phone: [facility] Work Phone: Start: 09-07-2024 End: 12-09-5602Pqlrffqgo to same day surgery centerManuel Noel MD Work Phone: [facility] Work Phone: Start: 09-07-2024 End: 13-66-1025ranuytqipdHrim Naderer MD Work Phone: [facility] Work Phone: Start: 08-28-2024 End: 10-00-6135Fizlsexfr department patient visitMARGinger ZANETroy Universal HospitalStart: 08-24-2024 End: 11-61-2302Igphmas encounter procedureManuel Noel MD Work Phone: [facility] Work Phone: Start: 07-01-2024 End: 94-22-9885Vbbtferhj Result EncounterGeneric External Data ProviderNOMS External Department UnsolicitedStart: 07-01-2024 End: 54-78-6617Srlrswcgh Result EncounterGeneric External Data ProviderNOMS External Department UnsolicitedStart: 27-11-8473Gdw-patient / Non-visitManuel Noel MD Work Phone: [facility] Work Phone: Start: 06-03-2024 End: 78-60-8275Hlokndtlg Result EncounterManuel Noel MD Work Phone: noms External Department UnsolicitedStart: 06-03-2024 End: 23-20-9130Qttrbyame Result EncounterManuel Noel MD Work Phone: noms External Department UnsolicitedStart: 03-02-2024 Patient encounter procedureGeneric ProviderNOMS HealthcareStart: 12-23-2022 Encounter for general adult medical examination without abnormal findingsDR MANUEL Zamora [facility]art: 12-21-2022 End: 54-64-6362actqhetnbfVQ MARC A NADEREacility:X9Nhgve: 12-21-2022 End: 75-10-5843Wfvgwmdwn for general adult medical examination without abnormal findingsDR MANUEL MILTONacility:T1Calkn: 12-01-2022 End: 28-26-4914Cayiojlltv and management of inpatientDR MANUEL NOEL Facility:X0Hxsko: 11-29-2022 End: 07-58-0318yxerfxlldiBE MANUEL MILTONacility:M9Zzcrb: 16-50-8791Tbvfplopwq and management of inpatientDR MALIK GABRIEL .Facility:K2Wjpdt: 11-18-2022 End: 07-22-2824sipgxfopazOG MANUEL A NADERERFacility:F1Zubfh: 09-22-2022 End: 72-19-6679nggskgpxjmZRGUN PARKERFacility:D3Citgw: 09-09-2022 End: 07-28-2505hnriefdqycMP MANUEL A NADERERFacility:O6Yuegz: 08-07-2022 End: 06-57-9023etqkbftufjQC MANUEL A NADERERFacility:P1Ifwmk: 08-06-2022 End: 73-20-1354rmmlhefnohTR MANUEL A NADERERFacility:Z2Ymklk: 07-25-2022 End: 94-82-6371yvvhqknyxeVF JEFFERSON HOWARD .Facility:L2Gffwq: 07-13-2022 End: 42-89-4790azsozlciyfND BELLO MARKS .Facility:P4Dmaio: 07-11-2022 End: 96-56-9004qsfdbnitnnJV MANUEL A NADERERFacility:P8Pvhel: 06-06-2022 End: 93-97-3241rfrwotahcqTD MANUEL A NADERERFacility:I3Pojgi: 04-16-2022 End: 91-22-7946egkoruqaqwRZ DOCTOR MISCFacility:H1 Procedures DateProcedureProcedure DetailPerforming ClinicianStart: 47-26-3989Ihfvr dip stick/tablet rgnt non-auto w/o micrscpAmy Vamsi LYNN Work Phone: Start: 53-10-0111BIV,APTIMA HPV,AGE GDLNCorey Anita DO Work Phone: Start: 33-79-4755GGF, SERUM, OPEN SPINA BIFIDAAmy Vamsi LYNN Work Phone: Start: 67-85-8165Dzxsb dip stick/tablet rgnt non-auto w/o micrscpAmy Vamsi LYNN Work Phone: Start: 69-26-3877QOYJZVEOK VAGINITIS (HTRX)Gia LYNN Work Phone: Start: 01-80-2914UHQ THYROID STIM HORMONECorey Anita DO Work Phone: Start: 25-60-4362WZF TESTCorey Anita DO Work Phone: Start: 05-05-2025 End: 81-69-9456Yacpe dip stick/tablet rgnt non-auto w/o micrscpCorey Anita DO Work Phone: Start: 18-39-3962MEI THYROID STIM HORMONECorey Anita DO Work Phone: Start: 62-04-1808Ekamx dip stick/tablet rgnt non-auto w/o micrscpCorey Anita DO Work Phone: Start: 55-49-7195Ggxqk cultureMarginger Noel MD Work Phone: Start: 99-55-8516JEN,APTIMA HPV,AGE GDLNAmy Vamsi LYNN Work Phone: Start: 47-82-0558MAS INSERTION/REMOVAL OF CONTRACEPTIVE CAPSULECorey Anita DO Work Phone: Start: 28-34-5763JVW CBC WITH AUTO DIFFCorey Anita DO Work Phone: Start: 06-36-7297JmbcqmuwhyzeokogwfhvpyklqfImqp Lana MATSON Work Phone: Start: 15-25-7640WUFF TRICHOMONAS/WET PREPGeneric External Data ProviderStart: 52-47-9828RW LUMBAR SPINE 2 OR 3VMarc Lana MATSON Work Phone: Start: 93-83-6532Qxuzcqxyfqi of Nonautologous Red Blood Cells into Peripheral Vein, Percutaneous ApproachDR DOCTOR MISCStart: 62-56-3559Xsrxxbxf of Products of Conception, External ApproachDR DOCTOR MISC Start: 39-59-5074Husciime of Amniotic Fluid, Therapeutic from Products of Conception, Via Natural or Artificial OpeningDR DOCTOR MISC Plan of Treatment DateCare ActivityDetailAuthorStart: 09-26-2025 End: 44-79-1666Ucmwrgc encounter lvxsysisc75/08/2025 2:40 PM EST Routine [facility] [address] [place] [address] [address] [place], [id number] Jefferson Howard, DO [address] [place] [address] [place] [address] NOMMaribell [place] OBGYNStart: 08-31-2025 End: 14-34-6259FAZ panel - Blood by Automated countCBC Lab Routine Diabetes mellitus screening Expected: 08/31/2025 (Approximate), Expires: 08/31/2026[facility] Work Phone: comment on above:Expected: 08/31/2025 (Approximate), Expires: 08/31/2026Start: 08-31-2025 End: 35-48-7545Czdufzpfrkj of glucose 1 hour after glucose challenge for glucose tolerance testGlucose tolerance, 1 hour Lab Routine Diabetes mellitus screening Expected: 08/31/2025 (Approximate), Expires: 08/31/2026NOMS HealthcareComment on above:Expected: 08/31/2025 (Approximate), Expires: 08/31/2026Start: 08-31-2025 End: 29-75-2890Rhxidwi encounter dunizqtcl91/12/2025 1:40 PM EST Routine [facility]ibell [facility] [address] [place] [address] [place], [id number] Jefferson Howard, DO [address] [facility] [place] [address] NOMMaribell [place] OBGYNStart: 08-31-2025 End: 64-40-5799Aqqyryv encounter procedureNOMS Emma OBGYNComment on above: ArrivedStart: 05-11-7879Kwwdmjke identified in Urine by CultureUrine Culture [facility]: 86-84-8127Rzytg cultureKettering Health Prebletart: 08-10-2025 End: 97-78-5083Isfvdaiiyuam / ancillary services nlvnvqreeu43/ 11:00 AM EDT Ancillary Procedure [facility] [address] [place] [address] [place] [id number] [facility] Emma OBGYNStart: 08-02-2025 End: 48-47-0727AV for pregnancyUS OB 14+ weeks anatomy scan Imaging Routine Screening, , for anatomic survey ([facility]) Expected: 08/02/2025, Expires: 11/02/2025[facility] Work Phone: comment on above:Expected: 08/02/2025, Expires: 11/02/2025Start: 08-02-2025 End: 90-97-8736Gcfpzux encounter procedureNOMS BCP OBStart: 07-05-2025 End: 61-51-2129Jcmhm fetoprotein, maternalAlpha fetoprotein, maternal Lab Routine 15 weeks gestation of ([facility]) Second trimester ([facility]) Expected: 07/05/2025 (Approximate), Expires: 08/04/2025[facility] Comment on above:Expected: 07/05/2025 (Approximate), Expires: 08/04/2025Start: 07-05-2025 End: 35-18-2644Lexchxl encounter procedureNOMS Emma OBGYNComment on above: ArrivedStart: 93-84-0986NKLBH-19 Vaccine ( season)COVID-19 Vaccine ( season)NOM[facility] HealthcareStart: 01-28-8917Fagqrajyh vaccinationNOMS HealthcareStart: 06-07-2025 End: 88-25-8980Rvxiraw encounter procedureNOMS BCP OBComment on above:Arrived Start: 05-05-2025 End: 63-18-9060CTQ/RhABO/Rh Lab Routine Missed menses , unspecified gestational age ([facility]) Expected: 05/05/2025 (Approximate), Expires: 05/05/2026NOMS HealthcareComment on above:Expected: 05/05/2025 (Approximate), Expires: 05/05/2026Start: 05-05-2025 End: 61-72-0750Hotot type and Indirect antibody screen panel - BloodType and screen Lab Routine Missed menses , unspecified gestational age ([facility]) Expected: 05/05/2025 (Approximate), Expires: 05/05/2026[facility] Work Phone: comment on above:Expected: 05/05/2025 (Approximate), Expires: 05/05/2026Start: 05-05-2025 End: 37-42-4559Ufjso of abuse panel - Urine by Screen methodRapid drug screen, urine Lab Routine , unspecified gestational age ([facility]) Encounter for supervision of normal first in first trimester ([facility]) Expected: 05/05/2025 (Approximate), Expires: 05/05/2026[facility] HealthcareComment on above: Expected: 05/05/2025 (Approximate), Expires: 05/05/2026Start: 05-05-2025 End: 62-55-8250Idmjbdawdew [Units/volume] in Serum or PlasmaTSH Lab Routine Thyroid disease Expected: 05/05/2025 (Approximate), Expires: 05/05/2026[facility] HealthcareComment on above:Expected: 05/05/2025 (Approximate), Expires: 05/05/2026Start: 02-02-2025 End: 72-01-6554Zsihftw encounter procedureNOMS [facility] OBComment on above:Arrived Start: 01-17-2025 End: 45-11-5376GuhzeqfxcmZlcoficlsg Procedures Routine LGSIL of cervix of undetermined significance Expected: 01/17/2025 (Approximate), Expires: 01/17/2026[facility] Work Phone: comment on above:Expected: 01/17/2025 (Approximate), Expires: 01/17/2026Start: 01-12-2025 End: 95-89-3881Fkkblbkoortg / ancillary services kcamoftgly90/26/2025 1:00 PM EDT Ancillary Procedure [facility] [address] [place] [address] NOMS BCP OBStart: 95-22-8284Bhbuojju identified in Urine by CultureUrine [facility]tart: 89-18-8193Mkdby [facility] Hospitaltart: 12-22-2024 End: 19-92-2974GZ PelvisUS Pelvis w/ TV Imaging Routine Pelvic pain in female Expected: 12/22/2024, Expires: 12/22/2025NOMS HealthcareComment on above: Expected: 12/22/2024, Expires: 12/22/2025Start: 12-22-2024 End: 01-77-8719Zwermds encounter procedureNOMS BCP OBComment on above:Arrived Start: 12-02-2024 End: 50-44-8295Lebtysj encounter rkqkixlat34/13/2025 9:30 AM EST Procedure Visit [facility] [address] [place] [address] Jefferson Howard [facility] [place] [address] NOMS BCP OBStart: 11-30-2024 End: 23-71-2719Fuclgeebynhf / ancillary services bxcoxpohnq48/11/2025 2:00 PM EST Ancillary Procedure [facility] [address] [place] [address] NOMS BCP OBStart: 11-11-2024 End: 24-87-8926UPXUCLHQ Lab Routine Right ovarian cyst PCOS (polycystic ovarian syndrome) Expected: 11/11/2024 (Approximate), Expires: 11/11/2025[facility] Comment on above:Expected: 11/11/2024 (Approximate), Expires: 11/11/2025Start: 11-11-2024 End: 58-70-4311JU PelvisUS Pelvis w/ TV Imaging Routine Right ovarian cyst PCOS (polycystic ovarian syndrome) Expected: 11/11/2024, Expires: 11/11/2025NOMS HealthcareComment on above:Expected: 11/11/2024, Expires: 11/11/2025Start: 11-11-2024 End: 01-38-1954Xbvidpn encounter eitbegtfm71/23/2025 8:40 AM EST Office Visit [facility] [address] [place] [address] Jefferson Howard DO [address] [place] [address] [facility] OBComment on above:ArrivedStart: 94-84-8344XfvbaypfhKettering Health Prebletart: 10-42-0220Swjjmrbud vaccinationInfluenza Vaccine (#1)NOMS HealthcareStart: 01-83-6307Jjpfcgbhn B Vaccines (1 of 3 - 19+ 3-dose series)Hepatitis B Vaccines (1 of 3 - 19+ 3-dose series)NOMS HealthcareStart: 31-09-9282Mhhmotdgjmlt Vaccine: Pediatrics (0 to 5 Years) and At-Risk Patients (6 to 64 Years) (1 of 2 - PCV)Pneumococcal Vaccine: Pediatrics (0 to 5 Years) and At-Risk Patients (6 to 64 Years) (1 of 2 - PCV) NOMS HealthcareStart: 22-10-3760AFV Vaccines (1 - 3-dose series)HPV Vaccines (1 - 3-dose series)NOMS HealthcareStart: 60-11-8439Ykmsury of varicella vaccination Varicella Vaccines (1 of 2 - 13+ 2-dose series)NOMS HealthcareStart: 2007 DTaP/Tdap/Td Vaccines (1 - Tdap)DTaP/Tdap/Td Vaccines (1 - Tdap)[facility] Start: 27-88-3443MGV Vaccines (1 of 1 - Standard series)MMR Vaccines (1 of 1 - Standard series)NOM HealthcareBacteria identified in Urine by CultureUrine culture Microbiology Routine Missed menses Ordered: 05/05/2025[facility] Healthcare Comment on above:Ordered: 05/05/2025BC W Auto Differential panel - BloodCBC and differential Lab Routine Right ovarian cyst PCOS (polycystic ovarian syndrome) Ordered: 11/11/2024[facility] HealthcareComment on above:Ordered: 11/11/2024BC W Auto Differential panel - BloodCBC and differential Lab Routine Missed menses , unspecified gestational age ([facility]) Ordered: 05/05/2025[facility] HealthcareComment on above:Ordered: 05/05/2025HLAMYDIA TRACHOMATIS (GENITO/STI) CHLAMYDIA TRACHOMATIS (GENITO/STI) Lab Routine Exposure to STD Ordered: 07/05/2025[facility] HealthcareComment on above:Ordered: 07/05/2025ytology Cervical or vaginal smear or scraping studyPap Smear Pathology and Cytology Routine Well woman exam with routine gynecological exam Ordered: 12/22/2024[facility] Healthcare Work Phone: comment on above:Ordered: 12/22/2024ytology Cervical or vaginal smear or scraping studyPap Smear Pathology and Cytology Routine LGSIL of cervix of undetermined significance Ordered: 08/02/2025[facility] Healthcare Comment on above:Ordered: 08/02/20254617QOIO-fhmnpuxKTYT-sfqnrpq Lab Routine Right ovarian cyst PCOS (polycystic ovarian syndrome) Ordered: 11/11/2024[facility] HealthcareComment on above:Ordered: 11/11/2024Follicle stimulating hormone Follicle stimulating hormone Lab Routine Right ovarian cyst PCOS (polycystic ovarian syndrome) Ordered: 11/11/2024[facility] HealthcareComment on above:Ordered: 11/11/2024hCG, quantitative, pregnancyhCG, quantitative, Lab Routine Right ovarian cyst PCOS (polycystic ovarian syndrome) Ordered: 11/11/2024[facility] Healthcare Work Phone: comment on above:Ordered: 11/11/2024Hemoglobin A1c/Hemoglobin.total in BloodHemoglobin A1c Lab Routine Right ovarian cyst PCOS (polycystic ovarian syndrome) Ordered: 11/11/2024[facility] HealthcareComment on above:Ordered: 11/11/2024Hemoglobin A1c/Hemoglobin.total in BloodHemoglobin A1c Lab Routine Missed menses , unspecified gestational age ([facility]) Ordered: 05/05/2025[facility] HealthcareComment on above:Ordered: 05/05/2025Hepatitis B virus surface Ag [Presence] in Serum or Plasma by ImmunoassayHepatitis B surface antigen Lab Routine Missed menses , unspecified gestational age ([facility]) Ordered: 05/05/2025[facility] HealthcareComment on above:Ordered: 05/05/2025Hepatitis C virus Ab [Presence] in Serum or Plasma by Immunoassay Hepatitis C antibody Lab Routine Missed menses , unspecified gestational age ([facility]) Ordered: 05/05/2025[facility] HealthcareComment on above: Ordered: 05/05/2025HIV-1/HIV-2 antigen/antibody combination immunoassayHIV-1 and HIV-2 antibodies Lab Routine Missed menses , unspecified gestational age ([facility]) Ordered: 05/05/2025[facility] HealthcareComment on above:Ordered: 05/05/2025Luteinizing hormoneLuteinizing hormone Lab Routine Right ovarian cyst PCOS (polycystic ovarian syndrome) Ordered: 11/11/2024[facility] HealthcareComment on above:Ordered: 11/11/2024Neisseria gonorrhoeae DNA [Presence] in Unspecified specimen by RANDOLPH with probe detectionNeisseria gonorrhea DNA probe, direct Lab Routine Exposure to STD Ordered: 07/05/2025[facility] HealthcareComment on above: Ordered: 07/05/2025Patient EducationEsophagitis Know your [facility] Work Phone: ProlactinProlactin Lab Routine Right ovarian cyst PCOS (polycystic ovarian syndrome) Ordered: 11/11/2024[facility] HealthcareComment on above:Ordered: 11/11/2024Reagin Ab [Presence] in Serum by RPRRPR Lab Routine Missed menses , unspecified gestational age ([facility]) Ordered: 05/05/2025[facility] HealthcareComment on above:Ordered: 05/05/2025Removal non- biodegradable drug delivery implantRemove drug implant device Procedures Routine Encounter for removal of etonogestrel implant Ordered: 12/02/2024[facility] Work Phone: comment on above:Ordered: 12/02/2024Rubella antibody, IgGRubella antibody, IgG Lab Routine Missed menses , unspecified gestational age ([facility]) Ordered: 05/05/2025[facility] HealthcareComment on above: Ordered: 05/05/2025SURESWAB(R) ADVANCED VAGINITIS PLUS, TMASURESWAB(R) ADVANCED VAGINITIS PLUS, TMA Pathology and Cytology Routine Vaginal discharge Ordered: 0 07/05/2025[facility] Work Phone: comment on above:Ordered: 07/05/2025Thyrotropin [Units/volume] in Serum or PlasmaTSH Lab Routine Right ovarian cyst PCOS (polycystic ovarian syndrome) Ordered: 11/11/2024[facility] HealthcareComment on above:Ordered: 11/11/2024Thyrotropin [Units/volume] in Serum or PlasmaTSH Lab Routine Elevated TSH Ordered: 02/02/2025[facility] Work Phone: Comment on above:Ordered: 02/02/2025Thyroxine (T4) free [Mass/volume] in Serum or PlasmaT4, free Lab Routine Right ovarian cyst PCOS (polycystic ovarian syndrome) Ordered: 11/11/2024[facility] HealthcareComment on above:Ordered: 11/11/2024Thyroxine (T4) free [Mass/volume] in Serum or PlasmaT4, free Lab Routine Elevated TSH Ordered: 02/02/2025[facility] HealthcareComment on above:Ordered: 02/02/2025 Payers DatePayer CategoryPayerPoly ID2021Medicaid [id number] 2021Medicaid (Managed Care) [id number] 2.16.840.1.792594.3.57[id number] 2.16.840.1.710738.3.57[id number] 2.16.840.1.218216.3.57[id number] 2.16.840.1.032635.3.57[id number] 2.16.840.1.748294.3.57[id number] 2.16.840.1.310674.3.57[id number] 2.16.840.1.238484.3.579.[id number] 2.16840.1.563387.3.579.2.09811-45-0983Bqlvqus2934327 2.16840.1.582047.3.57[id number] 2.16840.1.388340.3.579.2.04076-98-6198Wmvwubc2707999 2.840.1.337575.3.579.2.26423-71-1104Cccmkff5240811 2.840.1.240561.3.579.2.98104-91-7774Pvdmxmb0713640 2.840.1.950938.3.579.2.19417-43-9805Lvijjvj3468633 2.840.1.036775.3.579.[id number] 2.840.1.247718.3.57[id number] 2.840.1.767739.3.579.[id number] 2.840.1.713347.3.579.2.[id number] 2.840.1.165240.3.57[id number] 2.840.1.231318.3.579.2.696183-43-4794Vmdcuag70976756 2.840.1.087746.3.579.2.196948-46-3650Etbdaww99120204 2.840.1.238480.3.579.2.6[id number] 2.840.1.237724.3.57[id number] 2.0.1.033527.3.579.2.610856-51-3680Ivjzfih03541155 2.840.1.327876.3.579.2.210097-14-5491Giooijb47436248 2.0.1.841588.3.579.2.573618-60-5501Ercfhlg0988651 2..1.115661.3.579.2.547752-71-5194Vudpzlv9117115 2..1.312951.3.579.2.745926-08-7580Tbukvlv4829319 2..1.256212.3.579.2.479507-17-4744Zpydppj6191960 2..1.130495.3.579.2.465831-81-6246Pzbamqx1548271 2..1.146457.3.579.2.155408-38-5072Kfzrmgk4932791 2..1.547800.3.579.2.578229-54-9474Zmmfwum6037437 2..1.443276.3.579.2.047564-82-8161Ywoo-tni6[id number] Vnsnlsz9301596 2..1.962222.3.579.2.790Bpircza70407156 2.0.1.900873.3.579.2.042Sgcfrna62974755 2.840.1.977470.3.579.2.531 [id number] 2.840.1.408282.3.579.2.504Vsycttz21727661 2.840.1.488846.3.579.2.531 Social History DateTypeDetailFacilityStart: 03-02-2024 End: 21-99-2092Dyeiwcs smoking status NHISNever smoked tobacco (finding) [facility]: 75-13-8103GewRkirrze sex unknown (finding)[facility]: 84-11-0746Ube Assigned At FemaleFirUniversity Hospitals Parma Medical Centertart: 16-41-7900Xfuqovl use and exposure Smokeless tobacco non-userNOMS HealthcareStart: 03-02-2024 End: 41-17-3036Exvmcmw of Social functionNOWI HealthcareStart: 03-02-2024 End: 63-07-7789Pspvzj connection and isolation panelNOWI HealthcareStart: 39-87-4912Tspvay Member of Clubs or OrganizationsNot on fileNOWI HealthcareHow often to you have a drink containing alcohol?2-4 times a monthNOWI HealthcareHow many standard drinks containing alcohol do you have on a typical day?1 or 2NOMS HealthcareHow often do you have 6 or more drinks on 1 occasion?NeverNOMS HealthcareIn the past 12 months, was there a time when you were not able to pay the mortgage or rent on time?NoNOMS HealthcareStart: 46-27-0068Nhp assigned at birthNot on fileBL[facility]OUNTAIN [facility]ITAL HealthcareStart: 01-04-2025 End: 91-67-1020TksEzdjum (finding)[facility]: 99-71-5951RjqllwgkdXBEY Healthcare Medical Equipment Procedure CodeEquipment CodeEquipment Original TextEquipment IdentifierDatesERCP (endoscopic retrograde cholangiopancreatography)STENT PANCREATIC ZIMMON 4FRFDA Start: 40-40-3894QNCM (endoscopic retrograde cholangiopancreatography)STENT PANCREATIC ZIMMON 4FRFDAStart: 11-77-5928TLAZ (endoscopic retrograde cholangiopancreatography)STENT PANCREATIC ZIMMON 4FRFDAStart: 51-59-3439SOUG (endoscopic retrograde cholangiopancreatography)STENT PANCREATIC ZIMMON 4FRFDA Start: 11-20-2017 Goals DatePatient GoalDesired Activity/State Clinical Notes 08-24-2024 to 08-31-2025 Note Date & FpgnMfptHqpgjgix98-53-7857 History of Present illness Narrative* LEAH Curran - 08/31/2025 11:20 AM EST [...] esophagitis 03/02/2024 Mild intermittent asthma without complication ([facility]) 03/02/2024 Allergic rhinitis due to pollen 03/02/2024 Morbid obesity due to excess calories ([facility]) 03/02/2024 Annual physical exam 03/02/2024 Amenorrhea [...] was 03/08/2025. Assessment/Plan ICD-10-CM 1. Second trimester ([facility]) Z34.92 POCT urinalysis dipstick manually resulted 2. 23 weeks gestation of ([facility]) Z3A.23 3. Diabetes mellitus screening Z13.1 CBC Glucose tolerance, 1 hour CBC Glucose tolerance, 1 hour Assessment/Plan Return OB: Patient presents today for a routine obstetrics appointment. Patient is currently 23w2d . Patient states she is doing well but has complaints of being tired due to current . Pt was seen at [facility] on 08/29/2025 due to having painful abdominal pain and not feeling baby moving. [facility] evaluated the patient and was sent [...] a h-hr glucose order to schedule at [facility] and pt is advised not to eat or drink anything after midnight. PVU. We will increase keflex to tid for 7 days and pyridium. Patient will also be referred to [facility] for another anatomy scan due to body habitus per reading of recent scan Orders Placed This Encounter Procedures CBC Glucose tolerance, 1 hour POCT urinalysis dipstick manually resulted Follow Up: Patient is to return to office in 3 week for routine OB appointment. Documented by Janneth Paul MA on behalf of: LEAH Curran documented in this encounterCitizens Memorial [id number] History of Present illness Narrative* Shelleyjoel Dang, EB - 08/02/2025 1:40 PM EDT Reason for [...] esophagitis 03/02/2024 Mild intermittent asthma without complication ([facility]) 03/02/2024 Allergic rhinitis due to pollen 03/02/2024 Morbid obesity due to excess calories ([facility]) 03/02/2024 Annual physical exam 03/02/2024 Amenorrhea 04/28/2024 [...] nursing note reviewed. Exam conducted with a afterschool present. Vitals: Estimated body mass index is 53.12 kg/m as calculated from the following: Height as of 06/01/24: 5' 1 . Weight as of this encounter: 281 lb 1.9 oz. BP: 102/62 Patient's last menstrual period was 03/08/2025. ASSESSMENT & PLAN ICD-10-CM 1. Second trimester ([facility]) Z34.92 2. 19 weeks gestation of ([facility]) Z3A.19 CANCELED: POCT urinalysis dipstick manually resulted 3. Screening, , for anatomic survey ([facility]) Z36.89 OB 14+ weeks anatomy scan [...] Procedure Laterality Date GALLBLADDER documented in this encounterCitizens Memorial [id number] History of Present illness Narrative* LEAH Curran [...] esophagitis 03/02/2024 Mild intermittent asthma without complication ([facility]) 03/02/2024 Allergic rhinitis due to pollen 03/02/2024 Morbid obesity due to excess calories ([facility]) 03/02/2024 Annual physical exam 03/02/2024 Amenorrhea 04/28/2024 [...] nursing note reviewed. Exam conducted with a afterschool present. Vitals: Estimated body mass index is 54 kg/m as calculated from the following: Height as of 06/01/24: 5' 1 . Weight as of this encounter: 285 lb 12.8 oz. BP: 120/80 Patient's last menstrual period was 03/08/2025. ASSESSMENT & PLAN ICD-10-CM 1. 15 weeks gestation of ([facility]) Z3A.15 POCT urinalysis dipstick manually resulted Alpha fetoprotein, maternal Alpha fetoprotein, maternal 2. Second trimester ([facility]) Z34.92 POCT urinalysis dipstick manually [...] obtained without difficulty and patient was given msAFP order to have obtained. Patient continues with [...] behalf of: LEAH Curran documented in this encounterCitizens Memorial [id number] History of Present illness Narrative* Shelley Dang [...] 03/02/2024 Morbid obesity due to excess calories ([facility]) 03/02/2024 Annual physical exam 03/02/2024 Amenorrhea [...] nursing note reviewed. Exam conducted with a afterschool present. Vitals: Estimated body mass index is 53.17 kg/m as calculated from the following: Height as of 06/01/24: 5' 1 . Weight as of this encounter: 281 lb 6.4 oz. BP: 108/68 Patient's last menstrual period was 03/08/2025. ASSESSMENT & PLAN ICD-10-CM 1. First trimester ([facility]) Z34.91 2. 11 weeks gestation of ([facility]) Z3A.11 3. Right ovarian cyst [...] or undercooked meat, and [facility] away [facility]. Patient has been consulted regarding any further do's and don'ts of . Patient voiced understanding and all questions and concerns wereanswered. No orders of the defined types were placed in this encounter. Follow Up: Patient is to return in 4 weeks for routine OB appointment. Documented by Shelley Dang LPN on behalf of: Jefferson Howard DO documented in this encounterCitizens Memorial HealthcareZgvweagosn88-97-6529 History of Present illness Narrative* Gayatri Correa [...] esophagitis 03/02/2024 Mild intermittent asthma without complication ([facility]) 03/02/2024 Allergic rhinitis due to pollen 03/02/2024 Morbid obesity due to excess calories ([facility]) 03/02/2024 Annual physical exam 03/02/2024 Amenorrhea [...] dipstick manually resulted , unspecified gestational age ([facility]) - Type and screen; Future - ABO/Rh; Future - CBC and differential - Hemoglobin A1c - RPR - Rubella antibody, IgG - Hepatitis B surface antigen - Hepatitis C antibody - HIV-1 and HIV-2 antibodies - Rapid drug screen, urine; Future Encounter for supervision of normal first in first trimester ([facility]) - Rapid drug screen, urine; Future [...] or undercooked meat, and stay away [facility]. Patient has also been advised to not change litter boxes and eat 6 small meals a day. Patient has been consulted regarding the do's and don'ts ofpregnancy. Patient was given labs and all questions and concerns were answered. [place] and Thyroid given to patient to have [...] by: Gayatri Correa LPN documented in this encounterCitizens Memorial HealthcareFcoezsuvhl43-27-2025 History of Present illness Narrative* Shelley Dang [...] Major depressive disorder, recurrent episode, mild (HCC) ([facility]) 03/02/2024 Gastroesophageal reflux disease without esophagitis 03/02/2024 Mild intermittent asthma without complication ([facility]) 03/02/2024 Allergic rhinitis due to pollen 03/02/2024 Morbid obesity due to excess calories ([facility]) 03/02/2024 Annual physical exam 03/02/2024 Amenorrhea [...] nursing note reviewed. Exam conducted with a afterschool present. Vitals: Estimated body mass index is [...] of: Jefferson Howard DO documented in this encounterCitizens Memorial [id number] History of Present illness Narrative* Jefferson Howard [...] nursing note reviewed. Exam conducted with a afterschool present. Vitals: Estimated body mass index is [...] of: Jefferson Howard DO documented in this encounterCitizens Memorial HealthcareLbunrgiocx22-86-8239 History of Present illness Narrative* LEAH Curran - 12/22/2024 11:00 AM EST Reason for Appointment: Patient ID: Jes Romero is a 24 y.o. female who presents for [facility] Patient presents today for Annual [...] Major depressive disorder, recurrent episode, mild (HCC) ([facility]) 03/02/2024 Gastroesophageal reflux disease without esophagitis 03/02/2024 Mild intermittent asthma without complication ([facility]) 03/02/2024 Allergic rhinitis due to pollen 03/02/2024 Morbid obesity due to excess calories ([facility]) 03/02/2024 Annual physical exam 03/02/2024 Amenorrhea [...] nursing note reviewed. Exam conducted with a afterschool present. Vitals: Estimated body mass index is [...] behalf of: LEAH Curran documented in this encounterCitizens Memorial [id number] History of Present illness Narrative* Pilar Collins, EB - 12/02/2024 1:10 PM ESTAssociated Order(s): Insertion/Removal [...] nursing note reviewed. Exam conducted with a afterschool present. Vitals: Estimated body mass index is [...] of: Jefferson Howard DO documented in this encounterCitizens Memorial HealthcareGvjbtfzson61-13-9987 History of Present illness Narrative* Pilar Collins LPN - 11/11/2024 8:40 AM EST Reason for [...] Noted Major depressive disorder, recurrent episode, mild ([facility]) ([facility]) 03/02/2024 Gastroesophageal reflux disease without esophagitis 03/02/2024 Mild intermittent asthma without complication ([facility]) 03/02/2024 Allergic rhinitis due to pollen 03/02/2024 Morbid obesity due to excess calories ([facility]) 03/02/2024 Annual physical exam 03/02/2024 Amenorrhea [...] nursing note reviewed. Exam conducted with a afterschool present. Vitals: Estimated body mass index is [...] of: Jefferson Howard DO documented in this encounterCitizens Memorial [id number] [place] [address] EGD Procedure Note Signed Patient: Jes Romero MR#: [id number] : 2000 Acct:[id number] Age/Sex: 23 / F Adm Date: 4 Loc: Room: Type: [facility] Attending Dr: Mir Silva MD Copies [...] ovary. She has not followed up with HOME HEALTH CLINICAL SUPERVISOR. On omeprazole 20 mg daily. Pre-operative diagnosis: [...] she needs to continue to follow-up with HOME HEALTH CLINICAL SUPERVISOR as it is unlikely related to GI etiology. -Resume normal diet -Follow up in the office 6 to 8 weeks with GI JEWELRY ENGRAVER -Follow up with PCP Following a period of recovery, patient was seen and given full explanation of the procedure. Patient tolerated the procedure well and will be discharged in satisfactory, stable condition. Mir Silva MD Documented By: Mir Silva MD 09/07/24 1325 Signed By: 09/07/24 1333 [facility]11-05-2024 Evaluation note* Diagnosis Onset Date Resolution Status Admit Date Dyspepsia acuteNovember 2023 9:29amNauseaacuteNovember 2023 9:29amChronic GERD chronicNovember 2023 9:29amConstipationchronicNov2023 9:29am [facility] Work Phone: Evaluation note* Diagnosis Gastroesophageal reflux [...] of etonogestrel implant documented in this encounter [facility] HealthcareEvaluation note* [...] female genital organs documented in this encounter [facility] HealthcareEvaluation noteNo assessment information availableMemorial Health System Work Phone: Evaluation note* Diagnosis Gastroesophageal reflux [...] of undetermined significance documented in this encounter [facility] HealthcareEvaluation note* Diagnosis Gastroesophageal reflux disease [...] abnormal blood chemistry documented in this encounter [facility] HealthcareEvaluation note* Diagnosis Gastroesophageal reflux disease [...] mild Morbid obesity due to excess calories ([facility]) Missed menses , unspecified gestational age ([facility]) Encounter for supervision of normal first in first trimester ([facility]) Right ovarian cyst Other and unspecified ovarian cyst Nausea Nausea alone PCOS (polycystic ovarian syndrome) Polycystic ovaries Gastroesophageal reflux disease, unspecified whether esophagitis present Thyroid disease Unspecified disorder of thyroid documented in this encounter [facility] HealthcareEvaluation note* Diagnosis Gastroesophageal reflux disease without esophagitis- Primary Esophageal reflux Amenorrhea Absence of menstruation Generalized abdominal pain Abdominal pain, generalized Morbid (severe) obesity due to excess calories ([facility]) Body mass index (BMI) 50.0-59.9, adult ([facility]) Right sided sciatica- Primary Sciatica Gastroesophageal reflux disease without esophagitis Esophageal reflux Major depressive disorder, recurrent episode, mild Major depressive disorder, recurrent episode, mild Morbid obesity due to excess calories ([facility]) First trimester ([facility]) state, incidental 11 weeks gestation of ([facility]) Right ovarian cyst Other and unspecified ovarian cyst Nausea Nausea alone PCOS (polycystic ovarian syndrome) Polycystic ovaries documented in this encounter [facility] HealthcareEvaluation note* Diagnosis Gastroesophageal reflux disease without esophagitis- Primary Esophageal reflux Amenorrhea Absence of menstruation Generalized abdominal pain Abdominal pain, generalized Morbid (severe) obesity due to excess calories ([facility]) Body mass index (BMI) 50.0-59.9, adult ([facility]) Right sided sciatica- Primary Sciatica Gastroesophageal reflux disease without esophagitis Esophageal reflux Major depressive disorder, recurrent episode, mild Major depressive disorder, recurrent episode, mild Morbid obesity due to excess calories ([facility]) 15 weeks gestation of ([facility]) Second trimester ([facility]) state, incidental Exposure to STD Vaginal discharge Leukorrhea, not specified as infective Nausea Nausea alone documented in this encounter [facility] HealthcareEvaluation note* Diagnosis Gastroesophageal reflux disease without esophagitis- Primary Esophageal reflux Amenorrhea Absence of menstruation Generalized abdominal pain Abdominal pain, generalized Morbid (severe) obesity due to excess calories ([facility]) Body mass index (BMI) 50.0-59.9, adult ([facility]) Right sided sciatica- Primary Sciatica Gastroesophageal reflux disease without esophagitis Esophageal reflux Major depressive disorder, recurrent episode, mild Morbid obesity due to excess calories ([facility]) Second trimester ([facility]) state, incidental 19 weeks gestation of ([facility]) Screening, , for anatomic survey ([facility]) Encounter for anatomic survey LGSIL of cervix of undetermined significance documented in this encounter [facility] HealthcareEvaluation note* Diagnosis Gastroesophageal reflux disease without esophagitis- Primary Esophageal reflux Amenorrhea Absence of menstruation Generalized abdominal pain Abdominal pain, generalized Morbid (severe) obesity due to excess calories ([facility]) Body mass index (BMI) 50.0-59.9, adult ([facility]) Right sided sciatica- Primary Sciatica Gastroesophageal reflux disease without esophagitis Esophageal reflux Major depressive disorder, recurrent episode, mild Morbid obesity due to excess calories ([facility]) Second trimester ([facility]) state, incidental 23 weeks gestation of ([facility]) Diabetes mellitus screening Screening for diabetes mellitus documented in this encounter [facility] HealthcareReason for referral (narrative)No reason for referral information availableMount St. [facility] Work Phone: Summary Purpose Family History [...] section and content) DATE CREATED AUTHOR 12/24/2022 [facility] DATE CREATED AUTHOR AUTHOR'S ORGANIZ ATION 08/25/2025 [facility] DATE CREATED AUTHOR AUTHOR'S ORGANIZ ATION 08/31/2025 [facility] DATE CREATED AUTHOR AUTHOR'S ORGANIZ ATION 09/01/2025 [facility] EPIC Care Teams (unrecognized sec tion [...] Provider Active S tart: June 10, 2024 Kenney Al ProviderActiveStart: June 10, 2024 Team Status: Inactive [...] Manuel Noel MD [address] [place] [address] [facility]03/02/24Team MemberRelationshipSpecialtyStart DateEnd Date Manuel Noel MD [address] [place] [address] PCP - [facility]03/02/24 Manuel Noel MD [address] [place] [address] [facility]07/20/24Team MemberRelationshipSpecialtyStart DateEnd Date Manuel Noel MD [address] [place] [address] [facility]03/02/24 Manuel Noel MD [address] [place] [address] [facility]07/20/24Team MemberRelationshipSpecialtyStart DateEnd Date Manuel Noel MD [address] [place] [address] [facility]03/02/24 Manuel Noel MD [address] [place] [address] [facility]07/20/24Team MemberRelationshipSpecialtyStart DateEnd Date Manuel Noel MD [address] [place] [address] [facility]03/02/24 Manuel Noel MD [address] [place] [address] [facility]07/20/24Team MemberRelationshipSpecialtyStart DateEnd Date Manuel Noel MD [address] [place] [address] PCP - [facility]03/02/24 Manuel Noel MD [address] [place] [address] [facility]07/20/24Team MemberRelationshipSpecialtyStart DateEnd Date Manuel Noel MD [address] [place] [address] [facility]03/02/24 Manuel Noel MD [address] [place] [address] [facility]07/20/24Team MemberRelationshipSpecialtyStart DateEnd Date Manuel Noel MD [address] [place] [address] [facility] - [facility]03/02/24 Manuel Noel MD [address] [place] [address] [facility]07/20/24Team MemberRelationshipSpecialtyStart DateEnd Date Manuel Noel MD [address] [place] [address] [facility] - [facility]03/02/24 Manuel Noel MD [address] [place] [address] [facility]07/20/24 Team Status: Inactive Member Role Status Dates Jefferson Howard DO Attending Provider Active Start : January 17, 2025 End: January 17, 2025Team MemberRelationshipSpecialtyStart DateEnd Date Manuel Noel MD [address] [place] [address] [facility]03/02/24 Manuel Noel MD [address] [place] [address] [facility]07/20/24Team MemberRelationshipSpecialtyStart DateEnd Date Manuel Noel MD [facility]03/02/24 Manuel Noel MD [address] [place] [address] [facility]07/20/24Team MemberRelationshipSpecialtyStart DateEnd Date Manuel Noel MD [facility]03/02/24 Manuel Noel MD [address] [place] [address] [facility]07/20/24Team MemberRelationshipSpecialtyStart DateEnd Date Manuel Noel MD [facility]03/02/24 Manuel Noel MD [address] [place] [address] [facility]07/20/24Team MemberRelationshipSpecialtyStart DateEnd Date Manuel Noel MD [facility]03/02/24 Manuel Noel MD [address] [place] [address] [facility]07/20/24Team MemberRelationshipSpecialtyStart DateEnd Date Manuel Noel MD [facility]03/02/24 Manuel Noel MD [address] [place] [address] [facility] [facility] Team Status: Inactive Member Role/Relationship Status Dates Bello Marks ([facility]) , Attending Provider Active Start: August 29, 2025 End: August 29, 2025 Team Status: Active Member Role/Relationship Status Dates Bello Marks DO Attending Provider Active Start: August 29, 2025 Team MemberRelationshipSpecialtyStart DateEnd Date Manuel Noel MD [facility]03/02/24 Manuel Noel MD [address] [place] [id number] [facility]07/20/24 Reason for Visit (unrecogniz ed section and content) ReasonCommentsOvarian CystReasonCommentsNexplanon RemovalReasonCommentsWell Women VisitReasonCommentsColposcopyReasonCommentsResultsReasonCommentsAmenorrhea ReasonCommentsRoutine VisitReasonCommentsRoutine VisitSTI Screening Goals (unrecognized section and content) Goals may be documented in a n alternate sectionGoals may be documented in an alternate sectionGoals may be documented in an [...] BE BASED ON THE PRIMARY CLINICAL RECORDS. [employer] provides no warranty or guarantee of the accuracy or completeness of information in this document.
[2025-09-12 09:25] VITALS: BP 123/84; PULSE 96
[2025-09-12 09:40] LABS: Glucose Urine UA NEGATIVE (NEGATIVE)
== END 2025-09-12 11:03 | disposition home or self-care (01) ==
LOC: FBC 08:55
PROVIDERS: Admitting Provider Obstetrics & Gynecology; PCP Family Medicine; Visit Provider Obstetrics & Gynecology
DX: O99.891 Other specified diseases and conditions complicating pregnancy (principal); M54.9 Dorsalgia, unspecified; Z3A.25 25 weeks gestation of pregnancy
CPT/HCPCS: 59025; 81003; G0378; G0379

== ENCOUNTER 2025-09-28 10:14 | Outpatient (OUT) | payer OTHER, SELFPAY ==
--- OUTSIDE RECORDS SUMMARY | 2025-09-28 10:21 | XMS_ITS | CCD ---
Author Organization [facility] Care Team Providers Care Siding Applicator Name Role Phone DEMETRIOC, DR WILLS Attending [...] Unavailable ANITA ., DR ANDREA Attending Unavailable ROSEGLEN, DR AISHWARYA Luis Consulting Unavailable NADERER, DR [...] Unavailable Lana MATSON, Manuel Primary Care Provider Mir Silva MD Attending Provider [phone] Manuel Noel MD Primary Care Provider [phone] Manuel Noel MD Unavailable Manuel Noel MD Primary Care Provider [phone] Krishna Saxena MD Attending Provider Jefferson Howard DO Attending Provider [phone] Manuel Noel MD Primary Care Provider Manuel Noel MD Unavailable Manuel Noel MD Unavailable MANUEL NOEL Primary Care Unavailable MYLENE SAMPSON Attending Unavailable NADERER, MANUEL Primary Care Unavailable MAO PETERSEN Attending Unavailable NADERER, MANUEL Primary Care Unavailable FRIES, WONG S Admitting Unavailable FRIES, WONG S Attending Unavailable MANUEL NOEL Primary Care Unavailable Tae ([facility]) Bello BENTON Attending Provider [phone] Hay ([facility]), Bello Bal Admitting Unavailable Hay ([facility]), Bello aBl Attending Unavailable Manuel Noel Primary Care Unavailable Hemanth, Krishna Cao Admitting Unavailable Hemanth, Krishna Cao Attending Unavailable Anita, Jefferson Admitting Unavailable Anita, Jefferson Attending Unavailable NadereManuel simpson Primary Care Unavailable DiMir alanis Admitting Unavailable DittMir moses Attending Unavailable ANITA, JEFFERSON Attending Unavailable ANITA, JEFFERSON Attending Unavailable VAMSI, GIA Attending Unavailable ANITA, JEFFERSON Attending Unavailable ANITA, JEFFEROSN Attending Unavailable ANITA, JEFFERSON Attending Unavailable VAMSIGIA LOUIE Attending Unavailable ANITA, JEFFERSON Attending Unavailable ANITA, JEFFERSON Referring Unavailable GIA MAYO Attending Unavailable Allergies Allergy ClassificationReported Allergen(s)Allergy TypeDate of OnsetReaction(s) Facility (2 sources)Penicillins; Translations: [PENICILLINS]Drug allergy (disorder) 57-34-9977Uzb [facility] Repository (20 sources)PenicillinsDrug Dslxhtoxywb47-19-5130UrhgwwvJPAE Healthcare (1 source)PenicillinsDrug allergy (disorder)64-00-7166ZviwgcvmjBarberton Citizens Hospital Repository Medications Current Medications MedicationDrug Class(es)DatesSig (Normalized)Sig (Original)200 actuat albuterol 0.09 mg/actuat dry powder inhaler (16 sources)beta2-Adrenergic AgonistStart: 02-25-2157Arshk: 02-27-2024 End: 74-07-5932fihf 2 puff(s) by inhalation every four hoursalbuterol HFA 90 mcg/act inhaler Indications: Mild intermittent intrinsic asthma without status asthmaticus without complication ([facility]) Inhale 2 puffs every 4 (four) hours if needed for shortness of breath 18 g 3 02/27/2024 12/22/2024 Discontinued Start: 12-12-2021 End: 82-45-5738Zraibdwxu Sulfate (Ventolin Hfa) 90 mcg/actuation HFA aerosol inhaler Discontinued 2 INH ZNTQQYCJDHR7T as needed for sob December 12, 2021 12:00am August 24, 2024 9:32ammeclizine hydrochloride 25 mg oral tablet (4 sources)AntiemeticStart: 05-19-9583bkafvgpudb 40 mg delayed release oral capsule (20 sources)Proton Pump InhibitorStart: 03-02-2024 End: 95-23-0135mbls 1 capsule by mouth in the morningomeprazole (PriLOSEC) [address] capsule Indications: Gastroesophageal reflux disease, unspecified whether esophagitis present Take 1 capsule (40 mg) by mouth in the morning and 1 capsule (40 mg) in the evening. Take before meals. 60 capsule 5 05/05/2025 ActiveStart: 12-14-2021 End: 49-56-4320mwmz 1 capsule by mouth once dailyOmeprazole 20 mg Capsule,Delayed Release(Dr/Ec) Discontinued 20 MG PO Daily 30 30 0 December 14, 2021 12:00am September 07, 2024 1:33pmStart: 11-20-2017 End: 95-82-9682Jqnkxqnowy 20 mg Capsule,Delayed Release(Dr/Ec) Discontinued 20 MG PO as needed for Acne November 20, 2017 12:00am December 12, 2021 2:38pm ondansetron 4 mg oral tablet (20 sources)Serotonin-3 Receptor AntagonistStart: 11-11-2024 End: 01-19-3107ibxx 1 tablet by mouth every six hours [...] hydrochloride 12.5 mg oral tablet (20 sources)PhenothiazineStart: 02-24-8011txgr 1 tablet by mouth every six hours as needed for nausea and vomiting and nausea and nauseapromethazine (Phenergan) 12.5 MG tablet Indications: Nausea Take 1 tablet (12.5 mg) by mouth every 6 (six) hours if needed for nausea or vomiting for up to 30 doses Take 1 tablet by mouth every 6 hours as needed for nausea. 30 tablet 2 07/05/2025 ActiveStart: 48-95-6519mruk 1 tablet by mouth every six hours as needed for nausea and vomiting End: 62-92-0893tieltgkynlyf (Phenergan) 12.5 MG tablet Take by mouth 05/05/2025 Discontinuedsucralfate 1000 mg oral tablet (3 sources)Aluminum ComplexStart: 66-20-1094jhzz 1 tablet by mouth twice daily Completed/Discontinued Medications MedicationDrug Class(es)DatesSig (Normalized)Sig (Original)ARIPiprazole 2 mg oral tablet (4 sources)Atypical AntipsychoticStart: 01-26-2019 End: 45-56-0200aofh 1 tablet by mouth once dailyAripiprazole 2 mg Tablet Discontinued 2 MG PO Daily 14 14 0 January 25, 2019 11:00pm December 12, 2021 2:38pmcyclobenzaprine hydrochloride 10 mg oral tablet (4 sources)Muscle RelaxantStart: 06-01-2024 End: 44-05-8998eaey 1 tablet by mouth three times daily as needed for muscle spasmscyclobenzaprine (Flexeril) 10 MG tablet Indications: Right sided sciatica Take 1 tablet (10 mg) by mouth 3 (three) times a day as needed for muscle spasms 30 tablet 06/01/2024 11/11/2024 Discontinued(Other)Drospirenone-Ethinyl Estradiol (4 sources)Progestin, EstrogenStart: 12-12-2021 End: 88-82-6970sdag 1 tablet by mouth once dailyDrospirenone-Ethinyl Estradiol 3-0.03 mg tablet Discontinued 1 TAB PO Daily December 12, 2021 1:00am August 24, 2024 10:33amStart: 12-12-2021 End: 27-63-4228ipfe 1 tablet by mouth once dailyDrospirenone-Ethinyl Estradiol 3-0.03 mg tablet Discontinued 1 TAB PO Daily December 12, 2021 12:00am August 24, 2024 9:33amDULoxetine 30 mg delayed release oral capsule (4 sources)Serotonin and Norepinephrine Reuptake InhibitorStart: 12-14-2021 End: 76-02-4201pmvn 1 capsule by mouth once daily at bedtimeDuloxetine 30 mg Capsule,Delayed Release(Dr/Ec) Discontinued 30 MG PO Daily at bedtime 30 30 0 December 14, 2021 12:00am August 24, 2024 9:32amergocalciferol 1.25 mg oral capsule (4 sources)Provitamin D2 CompoundStart: 01-26-2019 End: 59-86-5298Mzgifnxvodrftt (Vitamin D2) 50,000 unit Capsule Discontinued 38972 UNIT PO Sa@0900 2 14 0 January 25, 2019 11:00pm December 12, 2021 2:38pm ethinyl estradiol 0.035 mg / norgestimate 0.25 mg oral tablet (9 sources)Progestin, EstrogenStart: 12-22-2024 End: 43-10-4869uymt 1 tablet by mouth once daily, then take 1 tablet by mouth once dailynorgestimate-ethinyl estradiol (Sprintec 28) 0.25-35 MG-MCG tablet Indications: control counseling Take 1 tablet by mouth Daily for 28 days Take 1 tablet by mouth daily 28 tablet 11 12/22/2024 04/27/2025 Discontinued (Therapy completed)sertraline 50 mg oral tablet (4 sources)Serotonin Reuptake InhibitorStart: 01-26-2019 End: 90-48-6295lixu 1 tablet by mouth once dailySertraline 50 mg Tablet Discontinued 50 MG PO Daily 14 14 0 January 25, 2019 11:00pm December 12, 2021 2:38pm Problems Active Problems Problem ClassificationProblemDateDocumented DateEpisodic/ChronicAcute posthemorrhagic anemia (1 source)Acute posthemorrhagic anemia; Translations: [ACUTE POSTHEMORRHAGIC ANEMIA]Onset: 01-20-1153GjwfupqvVwwgyvmusswanb/social admission (2 sources)Patient encounter status; Translations: [Person consulting for explanation of examination or test findings]59-65-8770CptcvsprTrvnga (20 sources)Mild intermittent asthma; Translations: [Mild intermittent asthma, uncomplicated]Onset: 984685-43-0456KhoiejhSfngmk of cervix (3 sources)Cervical intraepithelial neoplasia grade 1; Translations: [Low grade squamous intraepithelial lesion on cytologic smear of cervix (LGSIL)]01-17-2025 EpisodicContraceptive and procreative management (3 sources)Subcutaneous contraceptive implant present; Translations: [Encounter for surveillance of implantable subdermal contraceptive]81-24-3311Ucvkykty Esophageal disorders (20 sources)Gastroesophageal reflux disease; Translations: [Gastro-esophageal reflux disease without esophagitis]Onset: 948357-55-6163KrvkwtrGwalzxxnkk disorders (3 sources)Esophagitis; Translations: [Esophagitis]95-39-5235Wuyyvbvu Immunizations and screening for infectious disease (4 sources)Encounter for screening for infections with a predominantly sexual mode of transmission; Translations: [Contact with and (suspected) exposure to infections with a predominantly sexual mode of transmission]Onset: 06-10-2022 18-93-6409JruywsxkZchynxzyo (1 source)Influenza due to other identified influenza virus with other respiratory manifestations; Translations: [FLU D/T OTH ID FLU VIR OTH RSP MANF] Onset: 32-20-9279BpbsvkndBdcehlifx disorders (20 sources)Irregular menstruation, unspecified; Translations: [Amenorrhea] Onset: 10-85-9987UirhpotLfcn disorders (20 sources)Recurrent major depression; Translations: [Major depressive disorder, recurrent, unspecified]Onset: 743869-10-1912XsbwtroUypisc and vomiting (12 sources)Nausea; Translations: [Nausea]53-79-3636ZnsrtaryWjnfz complications of ; puerperium affecting management of mother (1 source)Obesity complicating childbirth; Translations: [OBESITY COMPLICATING CHILDBIRTH]Onset: 31-69-3088FcsqqszDuqfu complications of ; puerperium affecting management of mother (1 source)Anemia of the puerperium; Translations: [ANEMIA OF THE PUERPERIUM] Onset: 76-71-0601RakivxuStyda complications of (2 sources)Obesity complicating , third trimester; Translations: [OBESITY COMP THIRD TRI]Onset: 33-40-2433YyrwalmGjthj complications of (4 sources) related conditions, unspecified, unspecified trimester; Translations: [ RELATED COND UNS UNS TRI]Onset: 83-66-0722UjqhfphnAwxkp complications of (1 source)Diseases of the respiratory system complicating , third trimester; Translations: [DISEASESRESP SYS COMP PREG 3RD TRI]Onset: 09-24-2022 EpisodicOther complications of (1 source)Other specified related conditions, unspecified trimester; Translations: [Other specifiedpregnancy related conditions, unspecified trimester]Onset: 71-96-1504FjwibarsGsvsy ear and sense organ disorders (3 sources)Otalgia, left ear; Translations: [OTALGIA LEFT EAR]Onset: 09-22-2022 EpisodicOther endocrine disorders (5 sources)Polycystic ovary syndrome; Translations: [Polycystic ovarian syndrome]38-46-5726VrvqrcfBfgmn female genital disorders (2 sources)Vaginal discharge; Translations: [Other specified noninflammatory disorders of vagina]23-63-5484DkkuempcHmawf gastrointestinal disorders (4 sources)Constipation; Translations: [Constipation, unspecified]01-21-2019 EpisodicOther gastrointestinal disorders (1 source)Constipation, unspecified; Translations: [Constipation, unspecified] 58-46-8090AnsomkfsJjuih gastrointestinal disorders (1 source)Diarrhea, unspecified; Translations: [Diarrhea, unspecified]Onset: 56-21-1065JufduiooRqlhd nutritional; endocrine; and metabolic disorders (20 sources)Morbid obesity; Translations: [Morbid (severe) obesity due to excess calories]Onset: 619444-04-9005JnrjxgcAlyum and delivery including normal (20 sources)Single live ; Translations: [Encounter for supervision of other normal , third trimester]Onset: 02-73-9231VztowmhyOfmeu screening for suspected conditions (not mental disorders or infectious disease) (20 sources)Encounter for screening for malignant neoplasm of cervix; Translations: [Encounter for other specified screening]Onset: 39-67-4279NlllbhyhWxcud upper respiratory disease (20 sources)Allergic rhinitis due to pollen; Translations: [Allergic rhinitis due to pollen]Onset: 708097-76-4709BlibwfgSbolrm media and related conditions (1 source)Unspecified nonsuppurative otitis media, bilateral; Translations: [UNS NONSUPPURATIVE OTITIS MEDIA OSCAR]Onset: 13-63-5228QwqifcdpUezybrw cyst (5 sources)Cyst of right ovary; Translations: [Unspecified ovarian cyst, right side]52-43-0297WqeyzyqpTpjjkxvo codes; unclassified (1 source)38 weeks gestation of ; Translations: [38 WEEKS GESTATION OF ]Onset: 39-54-1800MfzabeypBwxweluh codes; unclassified (1 source)29 weeks gestation of ; Translations: [29 WEEKS GESTATION OF ]Onset: 37-76-2144EibyezzyOjccmtxz codes; unclassified (2 sources)Gestation period, 11 weeks; Translations: [11 weeks gestation of ]97-20-6869UiohhrqdUqyqpwpj codes; unclassified (2 sources)Gestation period, 15 weeks; Translations: [15 weeks gestation of ]26-35-8912ZkrbmaelXiopqhll codes; unclassified (2 sources)Gestation period, 19 weeks; Translations: [19 weeks gestation of ]37-91-0892FjzlfdtfDatxnhsm codes; unclassified (2 sources)Gestation period, 23 weeks; Translations: [23 weeks gestation of ]38-28-8086JxkkwxnyWygylfm disorders (1 source)Disorder of thyroid gland; Translations: [Disorder of thyroid, unspecified]94-78-4601HymjdctgNvynjqivdqun (2 sources)[facility] ; Translations: [[facility] DIS/COND COMPL ]Onset: 38-17-0004Bgtmilatagho (1 source)STOMACH PAIN, DIARRHEAOnset: 08-28-2024 Past or Other Problems Problem ClassificationProblemDateDocumented DateEpisodic/ChronicAbdominal pain (20 sources)Indigestion; Translations: [Epigastric pain]Onset: 03-02-2024 Resolved: 123471-95-0146QjqedzkmPmsotsyzmikol gastroenteritis (1 source)Noninfective gastroenteritis and colitis, unspecified; Translations: [Noninfective gastroenteritis and colitis, unspecified]Onset: 26-41-5156Gbffpkwn Other complications of (4 sources)Abnormal ultrasonic finding on screening of mother; Translations: [ABNORM US SCREEN MOTHER]Onset: 86-77-7489Jabxcywj Residual codes; unclassified (1 source)26 weeks gestation of ; Translations: [26 WEEKS GESTATION OF ]Onset: 32-07-9749SfocsizaDlifzgsn codes; unclassified (1 source)18 weeks gestation of ; Translations: [18 WEEKS GESTATION OF ]Onset: 44-84-9653GnhgyocyHfrjvqmf codes; unclassified (1 source)Less than 8 weeks gestation of ; Translations: [< 8 WEEKS GESTATION ]Onset: 51-87-7573GaaqwvgtDtgmotmnfix; intervertebral disc disorders; other back problems (20 sources)Cervicalgia; Translations: [Torticollis]Onset: 69-88-8425Tnsrcqdc Results Test NameValueInterpretationReference RangeFacilityUrinalysis macro (dipstick) panel (U)on 94-62-7707Gppknxrzr, UA2+Negative - 4(70) +++ mg/dLNOPA Healthcare Blood, UANegativeNegative - 50 Ilncoln/mcLNOPA HealthcareClarity, UAClearNOMS HealthcareColor, UADark AmberNOPA HealthcareGlucose, UANegativeNegative - 2000(110) ++++ mg/dLNOPA HealthcareInterpretation and review of laboratory resultsAbnormalNOPA HealthcareKetones, UAPositiveNegative - 160(16) ++++ mg/dL NOMS HealthcareLeukocytes, UA1+Negative - 500+++ Skyler/mcLNOPA HealthcareNitrite, UANegativeNegative - PositiveNOMS HealthcarepH, UA6.05 - 9N[facility] Protein, UA1+Negative - 2000(20) ++++ mg/dLNOPA HealthcareSpec Grav, UA1.0251 - 1.03NOPA HealthcareUrobilinogen, UA2.00.2 - 12 mg/dLNOPA HealthcareNOMS HealthcareBasophils Auto (Bld) [#/Vol]Ordered By: Bello Marks ([place]) on 46-39-0558Biqjudeei (Bld) [#/Vol]0.0 10 3/uL0.0-0.1FPike Community HospitalBasophils/100 WBC Auto (Bld)Ordered By: Bello Mraks ([place]) on 08-29-2025 Basophils/100 WBC (Bld)0.5 %0.2-2.0[facility] Eosinophils/100 WBC Auto (Bld)Ordered By: ([place]) Bello Marks on 08-29-2025 Eosinophils/100 WBC (Bld)0.7 %Low0.9-7.0[facility] Erythrocyte distribution width Auto (RBC) [Ratio]Ordered By: (Salma) Bello Marks on 04-44-2848Tqklesdcwon distribution width (RBC) [Ratio]13.1 %11.0-15.0 [facility] HospitalFine granular cast count in urine sediment by microscopy (number/low power field )Ordered By: (Salma) Bello Marks on 13-12-7460Qhlv Granular Casts LM.LPF (Urine sed) [#/Area]RAREBarberton Citizens HospitalGlobulin Calc (S) [Mass/Vol]Ordered By: (Salma) Bello Marks on 31-13-5579Cqcwzrhz (S) [Mass/Vol]4.3 g/dLBarberton Citizens Hospital Glomerular filtration rate (GFR) estimation in non- AmericanOrdered By: (Salma) Bello Marks on 73-01-1678PLY/1.73 sq M.predicted among non-blacks MDRD (S/P/Bld) [Vol rate/Area]mL/min/{1.73_m2}>=60 mL/min/1.73m 2FPike Community HospitalHematocrit Auto (Bld) [Volume fraction]Ordered By: (Salma) Bello Marks on 45-20-1971Odulushybc (Bld) [Volume fraction]32.5 %Low36.0-48.0[facility] HospitalHemoglobin [Mass/volume] in BloodOrdered By: (Salma) Bello Marks on 49-90-8083Sdtqpjfdiu (Bld) [Mass/Vol]11.0 g/dLLow12.0-16.0 [facility] HospitalLaboratory - Chemistry and Chemistry - challengeOrdered By: (Salma) Bello Marks on 29-08-6091Zoqivkw [Mass/Vol]2.7 g/dLLow3.4-5.0[facility] HospitalALP [Catalytic activity/Vol]103 U/K64-592EasszjeplBarberton Citizens HospitalALT [Catalytic activity/Vol]22 U/L 14-59Bar[facility] HospitalAST [Catalytic activity/Vol]13 U/FZyp73-86 [facility] HospitalBilirubin [Mass/Vol]0.5 mg/dL0.2-1.0[facility] HospitalCalcium [Mass/Vol]8.7 mg/dL8.5-10.1FPike Community HospitalChloride [Moles/Vol]104 mmol/V85-497RvpfolacgBarberton Citizens HospitalCO2 [Moles/Vol]25.2 mmol/L21.0-32.0[facility] Creatinine [Mass/Vol]0.60 mg/dL0.55-1.02[facility] GFR/1.73 sq M.predicted MDRD (S/P/Bld) [Vol rate/Area]mL/min/{1.73_m2}>=60 mL/min/1.73m 2FPike Community HospitalGlucose [Mass/Vol]94 mg/oK14-356 [facility] HospitalPotassium [Moles/Vol]3.6 mmol/L3.5-5.1FPike Community HospitalProtein [Mass/Vol]7.0 g/dL6.4-8.2FLicking Memorial Hospitalodium [Moles/Vol]137 mmol/G696-401HrzyqzcqsBarberton Citizens HospitalUrea nitrogen [Mass/Vol]5.0 mg/dLLow7.0-18.0[facility] HospitalUrea nitrogen/Creatinine [Mass ratio]8.3 mg/mgBarberton Citizens HospitalBilirubin Ql (U)SMALLAbnormalNEGATIVEBarberton Citizens Hospital Glucose (U) [Mass/Vol]NegativeNEGATIVEBarberton Citizens HospitalKetones Ql (U)40 mg/dLAbnormalNEGATIVEBarberton Citizens HospitalpH (U)5.5 [pH] 5.0-9.0[facility] Hospitalpecific gravity (U) [Rel density] >=1.886Dgqvsvui5.005-1.025Bar[facility] HospitalUrobilinogen Qn (U) 2.0 {Nadege'U}/dLAbnormal0.2-1.0[facility] HospitalLaboratory - Hematology and Cell countsOrdered By: ([place]) Bello Marks on 89-43-7794Oefueskx granulocytes/100 WBC (Bld)0.7 %High0.0-0.5FPike [facility] Hospital Laboratory - Specimen informationOrdered By: (Salma) Bello Marks on 08-29-2025 Appearance (U)CLEARCLEARFPike Community HospitalColor (U)YELLOWYELLOW [facility] HospitalLaboratory - UrinalysisOrdered By: (Salma) Bello Marks on 91-41-5010Efpaddyil esterase Test strip Ql (U)NegativeNEGATIVE [facility] HospitalMucus Ql (Urine sed)SMALLAbnormalNONE SEEN [facility] HospitalNitrite Ql (U)NegativeNEGATIVEBarberton Citizens HospitalProtein Ql (U)100 mg/dLAbnormalNEG/TRACEBarberton Citizens HospitalLeukocytes [#/volume] corrected for nucleated erythrocytes in Blood by Automated counOrdered By: (Salma) Bello Marks on 84-64-1298VXA corrected for nucl RBC Auto (Bld) [#/Vol]8.7 10 3/uL4.0-11.0 [facility] HospitalLymphocytes Auto (Bld) [#/Vol]Ordered By: (Salma) Bello Marks on 58-16-1893Nhhvalgyqkf (Bld) [#/Vol]1.9 10 3/uL1.2-3.8 [facility] HospitalLymphocytes/100 WBC Auto (Bld)Ordered By: (Salma) Bello Marks on 58-33-9161Dlnpatflush/100 WBC (Bld)21.7 %20.5-60.0 [facility] Auto (RBC) [Entitic mass]Ordered By: (Salma) Bello Marks on 48-14-4095MHE (RBC) [Entitic mass]30.1 pg26.7-34.0 [facility] AndersonHC Auto (RBC) [Mass/Vol]Ordered By: (Salma) Bello Marks on 14-68-5795AXES (RBC) [Mass/Vol]33.8 g/dL29.9-35.2FPike Community HospitalMCV Auto (RBC) [Entitic vol]Ordered By: ([place]) Bello Marks on 95-96-4436IYJ (RBC) [Entitic vol]88.8 fL81.0-99.0[facility] HospitalMonocytes Auto (Bld) [#/Vol]Ordered By: ([place]) Bello Marks on 89-26-8780Ernteqvms (Bld) [#/Vol]0.8 10 3/uL0.3-0.8[facility] HospitalMonocytes/100 WBC Auto (Bld)Ordered By: ([place]) Bello Marks on 08-29-2025 Monocytes/100 WBC (Bld)8.6 %1.7-12.0[facility] HospitalNeutrophils Auto (Bld) [#/Vol]Ordered By: ([place]) Bello Marks on 98-58-7950Rehxnlwkrqd (Bld) [#/Vol]5.9 10 3/uL1.4-6.5FPike Community HospitalNeutrophils/100 WBC Auto (Bld)Ordered By: ([place]) Bello Marks on 86-39-8833Razpsjnfcwn/100 WBC (Bld)67.8 %43.0-75.0[facility] HospitalNo Panel InformationOrdered By: (Salma) Bello Marks on 53-36-1061Jripjtbwmer # (Auto)0.1 10 3/uL0.0-0.7 [facility] HospitalImmature Granulocyte # (Auto)0.06 10 3/uLHigh 0.00-0.03[facility] HospitalUrine BacteriaSMALL #/HPFAbnormalNONE [facility] MiamisburgUrine Culture ReflexedYES-FRBerger HospitalUrine Occult BloodNegativeNEGATIVEBarberton Citizens HospitalUrine Other CastsSEEN #/LPFAbnormalNONE [facility] MiamisburgUrine Other CrystalsNone Seen #/HPFNone [facility] HospitalUrine RBC0-2 #/HPF0-2FPike Community HospitalUrine Squamous Epithelial CellsFEW #/LPFAbnormalNONE/RAREBarberton Citizens HospitalUrine WBC2-5 #/HPFAbnormalNONE SEENBarberton Citizens Hospital Platelet mean volume Auto (Bld) [Entitic vol]Ordered By: ([place]) Bello Mally Marks on 13-71-2799Tmmupwdo mean volume (Bld) [Entitic vol]11.4 fL9.5-13.5FPike Community HospitalPlatelets Auto (Bld) [#/Vol]Ordered By: ([place]) Bello Mally Tae on 88-72-0395Jvocyegmx (Bld) [#/Vol]201 10 3/jF787-413QvaipivvpBarberton Citizens HospitalRBC Auto (Bld) [#/Vol]Ordered By: ([place]) Bello Mally Tae on 34-51-1712CPP (Bld) [#/Vol]3.66 10 6/uLLow4.20-5.40Pro[facility] Toledo Hospitalerum or plasma albumin/globulin mass ratioOrdered By: ([place]) Bello Marks on 77-63-3606Wpnbltq/Globulin [Mass ratio]0.6 {ratio}[facility]edo Hospitalerum or plasma anion gap determinationOrdered By: ([place]) Bello Marks on 72-46-1837Sxlqk gap [Moles/Vol]11.4 mmol/LFPike Community HospitalUrine Cultureon 51-58-1437Ajkdzqox identified Cx Nom (U)Diagnosis: 23 WKS ; ABDOMINAL PAIN DIARRHEA Comment: 30,000 colonies/ml mixed bacterial skin contaminants 2 Days PERFORMED BY: [facility] [address] [facility] [address] PATHOLOGIST INVESTMENT RECOVERY TECHNICIAN JORDAN ALCAZAR M.D.NormalThe Unc Health Southeastern Physician GroupComment on above: Performed By: #### CUU #### [facility] [address] [place] [address] USABASIC METABOLIC PANELon 07-66-0277Wwujf gap [Moles/Vol]10 mmol/LNormal5-15[facility] Gardner SanitariumComment on above:Performed By: #### BMP #### [facility] ([facility]) [address] [place] [address] [place] [address] VIRCalcium [Mass/Vol]8.3 mg/dLLow8.5-10.5PThe Christ HospitalComment on above:Performed By: #### BMP #### [facility] ([address] [address] VIRChloride [Moles/Vol]103 mmol/MTfadgv30-696WayGyvrjdThe Hospitals Of Providence Transmountain CampusComment on above:Performed By: #### BMP #### [facility] ([address] [address] VIRCO2 [Moles/Vol]21 mmol/SBgh80-74WnmVxeeloThe Christ Hospital Comment on above:Performed By: #### BMP #### [facility] ([address] [address] VIRCreatinine [Mass/Vol]0.53 mg/dLNormal0.40-1.00ProThe Hospitals Of Providence Transmountain CampusComment on above:Result Comment: METHOD TRACEABLE TO IDMS STANDARDPerformed By: #### BMP #### [facility] ([address] [address] VIREGFR (CKD-EPI) NON-RACE DEPENDENT>^90Normal>=60ProThe Hospitals Of Providence Transmountain CampusComment on above:Result Comment: eGFR not reported due to non- numeric value for Creatinine. Reported eGFR is based on the CKD-EPI 2021 equation that does not use a race coefficient.Performed By: #### BMP #### [facility] ([address] [address] VIRGlucose [Mass/Vol]101 mg/sFWdvl19-60MnuLhdbdnThe Hospitals Of Providence Transmountain CampusComment on above:Performed By: #### BMP #### [facility] ([address] [address] [address] VIRPotassium [Moles/Vol]3.7 mmol/LNormal3.5-5.0ProThe Hospitals Of Providence Transmountain CampusComment on above:Performed By: #### BMP #### [facility] ([address] [place] [address] VIRSodium [Moles/Vol]134 mmol/LYpybkr509-556XjhTzybhp Fremont HospitalComment on above:Performed By: #### BMP #### [facility] ([address] [place] [address] VIRUrea nitrogen [Mass/Vol]5 mg/dLNormal5-23ProThe Hospitals Of Providence Transmountain CampusComment on above:Performed By: #### BMP #### [facility] ([address] [place] [address] VIRCBC (NO DIFF)on 37-40-0887Tbplyhjxnxw distribution width (RBC) [Ratio]13.5 %Zmbnpi36.5-15Select [facility] Specialty Hospital - ColumbusComment on above: Performed By: #### CBC #### [facility] ([address] [address] VIRHematocrit (Bld) [Volume fraction]31.2 %Zgn94-30DukTllzhpThe Hospitals Of Providence Transmountain CampusComment on above:Performed By: #### CBC #### [facility] ([address] [place] [address] VIRHemoglobin (Bld) [Mass/Vol]10.6 g/dLLow11.7-15.5ProMedica Gardner SanitariumComment on above:Performed By: #### CBC #### [facility] ([address] [address] VIRMCH (RBC) [Entitic mass]29.2 wxWdjptw28-18TmnZvsspgThe Hospitals Of Providence Transmountain CampusComment on above:Performed By: #### CBC #### [facility] ([address] [place] [address] VIRMCHC (RBC) [Mass/Vol]33.8 g/sCYblmvt26-26HsiXgkykvThe Hospitals Of Providence Transmountain CampusComment on above:Performed By: #### CBC #### [facility] ([address] [place] [address] VIRMCV (RBC) [Entitic vol]86 kDLttyil18-120SylZahkqr Fremont HospitalComment on above:Performed By: #### CBC #### [facility] ([address] [place] [address] VIRPlatelet mean volume (Bld) [Entitic vol]9.2 fLNormal7-12 [facility] HospitalComment on above:Performed By: #### CBC #### [facility] ([address] [place] [address] VIRPlatelets (Bld) [#/Vol]186 10*3/uIFcdrpq133-494JpxEusaxd Fremont HospitalComment on above:Performed By: #### CBC #### [facility] ([address] [place] [address] VIRRBC COUNT3.62 X10^12/LLow3.8-5.2PThe [facility] Hospital Comment on above:Performed By: #### CBC #### [facility] ([address] [place] [address] VIRWBC (Bld) [#/Vol]8.9 10*3/uLNormal4-11ProThe Hospitals Of Providence Transmountain CampusComment on above:Performed By: #### CBC #### [facility] ([address] [address] VIRURINALYSISon 21-83-3880Cjuivzhle sediment LM Ql (Urine sed) PresentAbnormalNonMercy Health Springfield Regional Medical CenterComment on above:Performed By: #### UA #### [facility] ([address] [place] [address] VIRBilirubin Ql (U)NegativeNormalNegativeProDiley Ridge Medical Center HospitalComment on above:Performed By: #### UA #### [facility] ([facility]) [address] [place] [address] [place] [address] VIRBLOOD/HGBNegativeNormalNegativeSelect Medical Specialty Hospital - Columbus Comment on above:Performed By: #### UA #### [facility] ([facility]) [address] [place] [address] [place] [address] VIRColor (U)YellowNormalYellowSelect Medical Specialty Hospital - Columbus Comment on above:Performed By: #### UA #### [facility] ([address] [place] [address] VIRGlucose Ql (U)NegativeNormalNegative, 250 mg/dLSelect Medical Specialty Hospital - ColumbusComment on above:Performed By: #### UA #### [facility] ([address] [place] [address] VIRKetones Ql (U)NegativeNormalNegativeSelect Medical Specialty Hospital - ColumbusComment on above:Performed By: #### UA #### [facility] ([address] [place] [address] VIRLeukocyte esterase Test strip Ql (U)NegativeNormalNegative [facility] Specialty Hospital - ColumbusComment on above:Performed By: #### UA #### [facility] ([address] [place] [address] VIRNitrite Ql (U)NegativeNormalNegativeSelect Medical Specialty Hospital - ColumbusComment on above:Performed By: #### UA #### [facility] ([address] [place] [address] VIRPH,URINE7.6Jlbfmj9.0-8.5ProMedica Gardner SanitariumComment on above:Performed By: #### UA #### [facility] ([address] [place] [address] VIRProtein Ql (U)TraceAbnormalNegativeSelect Medical Specialty Hospital - ColumbusComment on above:Performed By: #### UA #### [facility] ([address] [place] [address] VIRSpecific gravity (U) [Rel density]1.350Hvwoqn0.003-1.035 [facility] Specialty Hospital - ColumbusComment on above:Performed By: #### UA #### [facility] ([address] [place] [address] VIRSQUAMOUS WASJIRTGMB9Xhaxtf2-0IhtOutzil [facility] Comment on above:Performed By: #### UA #### [facility]ITAL[facility] ([address] [address] VIRTURBIDITYHazyAbnormalClearPThe Christ HospitalComment on above:Performed By: #### UA #### [facility] ([address] [place] [address] VIRUROBILINOGEN>=8.0 eu/dLAbnormal0.2 eu/dL, 1.0 eu/dL Select [facility] Specialty Hospital - ColumbusComment on above:Performed By: #### UA #### [facility] ([address] [address] VIRUS OB 14+ WEEKS ANATOMY SCANon 75-24-6293LY OB 14+ WEEKS ANATOMY SCANFINDINGS: A single, [...] Delivery: 12/26/25 Gestational Age as of 08/02/2025: 02l2dYMH,APTIMA HPV,AGE GDLNon 63-45-5460QCA GDLN ACOG TESTINGNote.NOMS HealthcareComment on above:TESTS RESULT FLAG UNITS REF RANGE LAB Clinician Provided Cytology Information Source.............Endocervix Other.............. No. of containers..01 ThinPrep Vial Age Samo MELANY Mela... -17 11 FLAG LEGEND: L-Low Normal,H-High Normal,LL-Alert Low,HH-Alert High <-Panic Low,>-Panic High,A-Abnormal,AA-Critical Abnormal Performed at: 01 =G [address] [address] Aleida Colon MD, IGP, RFX APTIMA HPV ASCUNote.[facility] Pomerene HospitalComment on above:TESTS RESULT FLAG UNITS REF RANGE LAB DIAGNOSIS: 02 NEGATIVE FOR INTRAEPITHELIAL LESION OR MALIGNANCY. Specimen adequacy: 02 Satisfactory for evaluation. No endocervical component is identified. An endocervical component is not commonly seen in the patient. Performed by: 02 Cynthia Smith Vice President Of Human Resources ([facility]) . 02 Note: Note 02 [...] ThinPrep(R) pap test was interpreted using the Kingmaker(R) NanoCompound(TM) Cervical Algorithm whole slide imaging system. . 02 The HPV DNA reflex criteria were not met with this specimen result therefore, no HPV testing was performed. FLAG LEGEND: L-Low Normal,H-High Normal,LL-Alert Low,HH-Alert High <-Panic Low,>-Panic High,A-Abnormal,AA-Critical Abnormal Performed at: 02 [facility] [address] [place] [address] Aleida Colon MD, Performed at: =G - [facility] [address], [place] [id number] Technical Editor: Aleida Colon MD, Phone: [phone] Performed at: [facility] [address] [place], [place] [id number] Technical Editor: Aleida Colon MD, Phone: [phone] SPATULA-ALONE ENDOCERVIX CLINISYGUNNISON VALLEY H[facility]PITAL HealthcareAFP, SERUM, OPEN SPINA BIFIDAon 29-73-6242DAP MOM1.07. NOMS HealthcareAFP VALUE31.7 ng/mL.NOMS HealthcareCOMMENT:Comment.[facility] HealthcareComment on above:Caitlin Palafox, Ph.D., [facility] Director References: Available Upon Request. Multiples Of Median Cutoffs For AFP Elevations Caro 2.5 Black 2.8 IDD 2.0 Twins 4.5 Abbreviation Definitions IDD - Insulin Dep Diabetes OSBR - Open Spina Bifida Risk For further inquiries contact [facility] at [phone]. This test was developed and its performance characteristics determined by [employer] It has not been cleared or approved by the Food and Drug Administration. Performed at: [facility] [address] [place], [place] [id number] Technical Editor: Leonidas Oneill [facility], Phone: [phone] GEST. AGE ON COLLECTION DATE18.0. weeksLake Regional Health SystemGESTAT. AGE BASED ON Ultrasound.[facility] HealthcareComment on above:15.1 on 07/05/2025 Recalculations are not recommended when gestational dating by LMP and ultrasound are within 10 days. INSULIN DEP DIABETESNo.NOMS HealthcareINTERPRETATIONComment.[facility] Healthcare Comment on above:Interpretation: Screen Negative [...] Customer Services to discuss available options. The [employer] recommends amniocentesis be offered to women age 35 and older. MATERNAL AGE AT EDD25.1. yrNOPA HealthcareMULTIPLE GESTATIONNo.[facility] OSBR RISK 1 [id number].NOMS HealthcareRACECaucasian.NOMS HealthcareRESULTSReport. NOMS HealthcareTEST RESULTS:Negative.[facility] OcayuncypfNUUHGU334. lbsNOMS HealthcarePREGNANCY N N ULTRASOUND [id number] 1 15 N 1 Y 285 N N N N N White/ CLINISYNCNOMS HealthcareRECURRENT VAGINITIS (HTRX)on 52-92-1910IMVDLMFKW VAGINAE 0NOMS HealthcareATOPOBIUM VAGINAENot detectedNOMS HealthcareBVAB 2,3 (BACTERIAL VAGINOSIS ASSOCIATED BACTERIA 2, 3); MOBILUNCUS ICG2KOJX HealthcareBVAB 2,3 (BACTERIAL VAGINOSIS ASSOCIATED BACTERIA 2, 3); MOBILUNCUS SPPNot detectedNOMS HealthcareCANDIDA ALBICANS, PARAPSILOSIS, DABBDDVCRK4JCDX HealthcareCANDIDA ALBICANS, PARAPSILOSIS, TROPICALISNot detectedNOMS HealthcareCANDIDA GLABRATA0 NOMS HealthcareCANDIDA GLABRATANot detectedNOMS HealthcareCANDIDA NQYWAY9JBQK HealthcareCANDIDA KRUSEINot detectedNOMS HealthcareCHLAMYDIA KBFFJIJWCDY1LOBP HealthcareCHLAMYDIA TRACHOMATISNot detectedNOMS HealthcareGARDNERELLA VAGINALIS 31.049AbnormalNOMS HealthcareGARDNERELLA VAGINALISDetectedAbnormalNOMS HealthcareInterpretation and review of laboratory resultsAbnormalNOMS Healthcare MEGASPHAERA (TYPES 1, 2)0NOMS HealthcareMEGASPHAERA (TYPES 1, 2)Not detectedNOMS HealthcareMYCOPLASMA FGNBEYFKUP0GAIC HealthcareMYCOPLASMA GENITALIUMNot detected NOMS HealthcareNEISSERIA KOBPEBYALOV4RAGQ HealthcareNEISSERIA GONORRHOEAENot detectedNOMS HealthcareTET B, TET M23.864AbnormalNOMS HealthcareTET B, TET M DetectedAbnormalNOPA HealthcareTRICHOMONAS GAVIUKCPP0GLBE HealthcareTRICHOMONAS VAGINALISNot detectedNOMS HealthcareNOMS HealthcareUrinalysis macro (dipstick) panel (U)on 63-72-2013Pnurpdwze, UANegativeNegative - 4(70) +++ mg/dLNOMS HealthcareBlood, UAPositiveNegative - 50 Lincoln/mcLNOMS HealthcareClarity, UAClear NOMS HealthcareColor, UAYellowNOMS HealthcareGlucose, UANegativeNegative - 1999(110) ++++ mg/dLAMERICAN FORK [facility] HealthcareInterpretation and review of laboratory resultsAbnormalAMERICAN FORK [facility] HealthcareKetones, UANegativeNegative - 160(16) ++++ mg/dL NOMS HealthcareLeukocytes, UANegativeNegative - 500+++ Skyler/mcLNOPA Healthcare Nitrite, UANegativeNegative - PositiveNOPA HealthcarepH, UA65 - 9NOPA Healthcare Protein, UANegativeNegative - 1999(20) ++++ mg/dLAMERICAN FORK [facility]OSP[facility] HealthcareSpec Grav, UA 1.0151 - 1.03NOPA HealthcareUrobilinogen, UA1.00.2 - 12 mg/dLHedrick Medical Center HealthcareALL THYROID STIM HORMONEon 67-11-4089WHT Qn2.104 m[IU]/LNOMS HealthcareCLINISYNCNOMS HealthcareBOX TESTon 27-22-3566GPQ TEST SENT OUTYESLake Regional Health SystemLbjzxctzgmIDU5ZGNSZPXXI ErscekzervYHK27/03/13NOMissouri Southern HealthcareCLINISYNTidelands Georgetown Memorial HospitalHCG ( test) Ql (U)on 15-40-3111Iwvhminukyrxtm and review of laboratory resultsAbnormSelect Specialty Hospital - DanvillePreg Test, UrPositiveNegativeNOLake Regional Health System HealthcareUS OB TRANSVAGINALon 75-66-5899BQ OB TRANSVAGINAL FINDINGS: A single intrauterine gestational [...] No LMP recorded.Urinalysis macro (dipstick) panel (U)on 15-82-8649Aezhajlal, UA NegativeNegative - 4(70) +++ mg/dLNOMS HealthcareBlood, UANegativeNegative - 50 Lincoln/mcLNOPA HealthcareClarity, UAClearNOMS HealthcareColor, UAYellowNOMS HealthcareGlucose, UANegativeNegative - 2000(110) ++++ mg/dLNOPA Healthcare Interpretation and review of laboratory resultsAbnormalNOPA HealthcareKetones, UANegativeNegative - 160(16) ++++ mg/dLAMERICAN FORK [facility]OSPITAL HealthcareLeukocytes, UANegative Negative - 500+++ Skyler/mcLNOPA HealthcareNitrite, UANegativeNegative - Positive NOMS HealthcarepH, UA75 - 9NOMS HealthcareProtein, UATraceNegative - 2000(20) ++++ mg/dLNOPA HealthcareSpec Grav, UA1.0251 - 1.03NOMS HealthcareUrobilinogen, UA1.00.2 - 12 mg/dLNOLake Regional Health System HealthcarePOCT NURSING URINE MACROSCOPIC UAon 23-79-7910LTVRBTVUZ NURNegativeNocritical access hospitalNegUniversity Hospitals Health System Comment on above:Performed By: #### NUM #### [facility] ([address] [address] VIRBLOOD/HGB NURTraceAbnormalNegativeSelect Medical Specialty Hospital - ColumbusComment on above:Performed By: #### NUM #### [facility] ([address] [address] VIRGLUCOSE NURNegativeNoalNegativeSelect Medical Specialty Hospital - Columbus Comment on above:Performed By: #### NUM #### [facility] ([address] [address] VIRKETONES NURNegativeNormalNegativeSelect Medical Specialty Hospital - Columbus Comment on above:Performed By: #### NUM #### [facility] ([address] [address] VIRLEUKOCYTE ESTERASE NURNegativeNormalNegativeSelect Medical Specialty Hospital - ColumbusComment on above:Performed By: #### NUM #### [facility] ([address] [address] VIRNITRITE NURNegativeNormalNegativeSelect Medical Specialty Hospital - Columbus Comment on above:Performed By: #### NUM #### [facility] ([address] [address] VIRPH NUR6.0Bciltc7.0, 6.0, 6.5, 7.0, 7.5, 8.0, 8.5, 5.5 [facility] Hospital - ColumbusComment on above:Performed By: #### NUM #### [facility] ([address] [address] VIRPROTEIN QEC896 mg/dLAbnormalNegativeSelect Medical Specialty Hospital - ColumbusComment on above:Performed By: #### NUM #### [address] [address] VIRSPECIFIC GRAVITY MOLLY>=1.043Xhlfzaeh1.010, 1.015, 1.020, 1.025Select [facility] Specialty Hospital - ColumbusComment on above:Performed By: #### NUM #### [facility] ([address] [address] VIRUROBILINOGEN NUR0.2 E.U./dLMercy Hospital St. John'SalSelect Medical Specialty Hospital - Columbus Comment on above:Performed By: #### NUM #### [facility] ([address] [address] VIRPOCT , URINE (NUCG)on 36-32-6864Tazc HCG ( test) Ql (U)PositiveAbnormalNegative, IndeterminateSelect Medical Specialty Hospital - ColumbusComment on above:Performed By: #### NUCG #### [facility] ([address] [address] VIRALL THYROID STIM HORMONEon 30-80-2506Thnviawyvcivgt and review of laboratory resultsAbnoConemaugh Nason Medical Center Qn5.935 m[IU]/[facility] HospitalINISYNBAYSTATE MEDICAL [facility]ENTER HealthcareHCG ( test) Ql (U)on 01-17-2025 Interpretation and review of laboratory resultsNormalNO Pomerene HospitalPreg Test, UrNegativeNegativeCESAR ScionHealthLon 01-17-2025L Specimen: [id number] Received: 01/18/25 Status: GHAZAL Parminder Num: [id number] Spec Type: Surgical Subm Dr: Jefferson Howard Tissues: A Endocervix - Biopsy (ENDOCERVIX) Endocervix - Curettings Procedures: TESSIE/Day Olivarez/Elvin Huggins Age/ Patient Sex Location Account Attending Physician Jes Romero 24/ LABELL [id number] Jefferson Howard SPEC NUM: [id number] RECD: 01/18/25 STATUS: GHAZAL JEROME NUM: [id number] JUDIT: 01/17/25-[address]: Jefferson Howard ENTERED: 01/18/25-1399 [facility] DR: Emma,Lab SPEC TYPE: Surgical DEPT: LUCAS MAR ENTERED BY: [id number] RECV BY: [id number] ORDERED: HE/2, Gross/Micro L4 ORDERED: HE/2, Gross/Micro [...] submitted in a single cassette. (1, ns, [id number]) Microscopic Description Microscopic examination is performed Specimen: [id number] Received: 01/18/25 Status: GHAZAL Jerome Num: [id number] Spec Type: Surgical Subm Dr: Jefferson Howard Tissues: A Endocervix - Biopsy (ENDOCERVIX) Endocervix - Curettings Procedures: HE/2, Gross/Micro L4 Patient: Jes Romero [id number] (Continued) Specimen: [id number] Received: 01/18/25 (Continued) Signed (signature on file) Lizabeth Diggs MD 01/19/25 1541 Specimen: [id number] Received: 01/18/25 Status: GHAZAL Jerome Num: [id number] Spec Type: Surgical Subm Dr: Jefferson Howard Tissues: A Endocervix - Biopsy (ENDOCERVIX) Endocervix - Curettings Procedures: Day MEDELLIN/Elvin L4 Patient: Jes Romero [id number] (Continued) Specimen: [id number] Received: 01/18/25 (Continued) CPT Codes 60580 Specimen: [id number] Received: 01/18/25 Status: GHAZAL Jerome Num: [id number] Spec Type: Surgical Subm Dr: Jefferson Howard Tissues: A Endocervix - Biopsy (ENDOCERVIX) Endocervix - Curettings Procedures: TESSIE/Day Olivarez/Elvin L4 Patient: Jes Romero [id number] (Continued) Signed (signature on file) Brian-Shaheen Diggs MD 01/19/[address] [place] [address] Physician GroupUrinalysis macro (dipstick) panel (U)on 96-98-5460Hmlzjscqj, UANegativeNegative - 4(70) +++ mg/dLNOMS HealthcareBlood, UANegativeNegative [...] mg/dLNOMS HealthcareNOMS HealthcareUS PELVIC COMPLETE W/ TVon 88-17-9390HD PELVIC COMPLETE W/ TVEXAM: US PELVIC COMPLETE [...] II, MD, PHD at 13-Jan-2025 11:16:36 PM [facility] TeleradiologyNormalNot AvailableComment on above:Order Comment: US PELVIS-TRANSVAG IF INDICATED No LMP recorded.Urine Cultureon 30-08-5976Tbplmchv identified Cx Nom (U)15,000 colonies/ml mixed bacterial skin contaminants 2 Days PERFORMED BY: [place] [address] PATHOLOGIST INVESTMENT RECOVERY TECHNICIAN BRUCE CALI M.D.NormalThe Unc Health Southeastern Physician GroupComment on above: Performed By: #### CUU #### [facility] [address] [place] [address] USAUrine cultureOrdered By: Krishna Saxena on 01-03-2025 Bacteria identified Cx Nom (U)Urine cultureBarberton Citizens Hospital IGP,APTIMA HPV,AGE GDLNon 18-50-0054RIC GDLN ACOG TESTINGNote.[facility] Comment on above:TESTS RESULT FLAG UNITS REF RANGE LAB Clinician Provided Cytology Information Source.............Cervix;Endocervix No. of containers..01 ThinPrep Vial Age Algo ACOG Mela... -17 11 FLAG LEGEND: L-Low Normal,H-High Normal,LL-Alert Low,HH-Alert High <-Panic Low,>-Panic High,A-Abnormal,AA-Critical Abnormal Performed at: 01 =G [facility] [place] [address] Aleida Colon MD, IGP, RFX APTIMA HPV ASCUNoteAbnormal.NOMS HealthcareComment on above:TESTS RESULT FLAG UNITS REF RANGE LAB DIAGNOSIS: [A] 02 EPITHELIAL CELL ABNORMALITY. LOW GRADE SQUAMOUS INTRAEPITHELIAL LESION (LSIL). Specimen adequacy: 02 Satisfactory for evaluation. Endocervical and/or squamous metaplastic cells (endocervical component) are present. Performed by: 02 Cynthia Smith, Community Development Director (ASCP) Electronically si... 02 Johanne Dseir MD, Pathologist . 02 Pathologist ICD10: 02 [...] <-Panic Low,>-Panic High,A-Abnormal,AA-Critical Abnormal Performed at: [address] [address] Aleida Colon MD, Performed at: = - [facility] [id number] Technical Editor: Aleida Colon MD, Phone: [phone] Performed at: [facility] [address] [id number] Technical Editor: Aleida Colon MD, Phone: [phone] Interpretation and review of laboratory resultsAbnoEncompass Health Rehabilitation Hospital of Harmarville BRUSH-SPATULA CERVIX ENDOCERVIX CLINISYCopper Basin Medical CenterInsertion/Removal of Contraceptive Capsuleon 12-02-2024 Pilar [...] steri-strips and pressure bandage applied: [facility] CabarrusUS PELVIC COMPLETE W/ TVon 95-21-9857UT PELVIC COMPLETE W/ TVEXAM: US PELVIC COMPLETE [...] II, MD, PHD at 03-Dec-2024 08:37:11 AM [facility]Spanish TeleradiologyNormalNot AvailableComment on above:Order Comment: US PELVIS-TRANSVAG IF INDICATED No LMP recorded.ALL CBC WITH AUTO DIFFon 92-72-0307YKSGIHVQV ABSOLUTE AUTO0.1 NOMS HealthcareBasophils/100 WBC (Bld)0.6 %0.2 - 2.0 %[facility] Eosinophils/100 WBC (Bld)2.6 %0.9 - 7.0 %[facility] HealthcareErythrocyte distribution width (RBC) [Ratio]13.2 %11.0 - 15.0 %[facility] HealthcareHematocrit (Bld) [Volume fraction]38.2 %36.0 - 48.0 %[facility] Health SystemHemoglobin (Bld) [Mass/Vol]12.4 g/dL 12.0 - 16.0 g/dLNOMissouri Southern HealthcareIMMATURE GRANULOCYTES ABS AUTO0.04HighNOPA HealthcareImmature granulocytes/100 WBC (Bld)0.4 %0.0 - 0.5 %[facility] Interpretation and review of laboratory resultsAbnormalNOPA Healthcare LYMPHOCYTES ABSOLUTE AUTO3.4NOMissouri Southern HealthcareLymphocytes/100 WBC (Bld)34.8 %20.5 - 60.0 %[facility] SystemMCH (RBC) [Entitic mass]28.3 pg26.7 - 34.0 pgNOWashington University Medical CenterHC (RBC) [Mass/Vol]32.5 g/dL29.9 - 35.2 g/dLNOPA HealthcareMCV (RBC) [Entitic vol]87.2 fL81.0 - 99.0 fLNOMS HealthcareMONOCYTES ABSOLUTE AUTO0.7NOMS HealthcareMonocytes/100 WBC (Bld)7.2 %1.7 - 12.0 %[facility] HealthcareNEUTROPHILS ABSOLUTE AUTO5.4NOMS HealthcareNeutrophils/100 WBC (Bld)54.4 %43.0 - 75.0 %[facility] HealthcarePlatelet mean volume (Bld) [Entitic vol]10 fL9.5 - 13.5 fLNOMS HealthcareTBH EO #0.3NOMS HealthcareTBH QYM469FMZZ HealthcareTBH RBC4.38NOMS HealthcareTBH WBC9.9NOMS HealthcareCLINISYNCNOMS HealthcareHCG ( test) IA.rapid Ql (U)Ordered By: Mir Silva on 58-17-8508VBB ( test) Ql (U)Urine human chorionic gonadotropin (hCG) detection by immunoassayBarberton Citizens HospitalHC,Urineon 40-64-3296Wmkf HCG ( test) Ql (U) NegativeNoAtrium Health Wake [facility] Physician GroupComment on above:Result Comment: PERFORMED BY: [address] [place] [id number] PATHOLOGIST INVESTMENT RECOVERY TECHNICIAN BRUCE CALI M.D.Performed By: #### UHCG #### [place] [id number] USALon 09-07-2024L Specimen: [id number] Received: 09/07/24 Status: GHAZAL Jerome Num: [id number] Spec Type: Surgical Subm Dr: Mir Silva MD Tissues: A Small Intestine - Biopsy/Polyp (SMALL BOWEL BX R/O CELIAC) Procedures: HE/2, Gross/Micro L4 Age/ Patient Sex Location Account Attending Physician Jes Romero / [id number] Mir Silva MD SPEC NUM: [id number] RECD: 09/07/24 STATUS: GHAZAL JEROME NUM: [id number] JUDIT: 09/07/[address] [facility] [address]: Mir Silva MD ENTERED: 09/07/[address]: SPEC TYPE: Surgical DEPT: S ENTERED BY: [id number] RECV BY: [id number] ORDERED: HE/2, Gross/Micro L4 ORDERED: HE/2, Gross/Micro [...] submitted in a single cassette. (1, ns, [id number]) Microscopic Description Microscopic examination is performed. CPT Codes 83928 Specimen: [id number] Received: 09/07/24 Status: GHAZAL Jerome Num: [id number] Spec Type: Surgical Subm Dr: Mir Silva MD Tissues: A Small Intestine - Biopsy/Polyp (SMALL BOWEL BX R/O CELIAC) Procedures: HE/2, Gross/Micro L4 Patient: Jes Romero [id number] (Continued) Signed (signature on file) Roberth Martinez MD 09/08/24 101[address]Noal [facility] Physician GroupFLEMING COUNTY H[facility]ITAL AND AUTO DIFFon 84-96-8792LETVCUUI BASOPHIL0.0 X10E9/LNormal0.0-0.2PThe Christ HospitalComment on above:Performed By: #### MARLENE CBCA #### [facility] ([id number]) [address] [place] [address]THMULZXV NEUTROPHIL3.8 X10E9/LNormal1.5-6.6Select [facility]ty Hospital - ColumbusComment on above:Performed By: #### CMP, CBCA #### [facility] ([id number]) [address] [place] [address]Nbooyknzg/100 WBC (Bld)0.3 %[facility] Comment on above:Performed By: #### MARLENE CBCA #### [facility] ([id number]) [address] [place] [address]Seslplohali (Bld) [#/Vol]0.0 10*3/uLNormal0.0-0.4Select [facility] Hospital - ColumbusComment on above:Performed By: #### CMP, CBCA #### [facility] ([id number]) 09 [place] [address] 33934Wtiymhutjme/100 WBC (Bld)0.8 %[facility] Comment on above:Performed By: #### CMP, CBCA #### [facility] ([id number]) [address] [place] [address] 41163Zyeipwevwue distribution width (RBC) [Ratio]14.5 %Normal 11.5-15.0[facility] - ColumbusComment on above:Performed By: #### CMP, CBCA #### [facility] ([id number]) [address] [place] [address] 40175Qtvbbvdlhp (Bld) [Volume fraction]38.8 %Jcjnht75-86JwxIonqsfThe Hospitals Of Providence Transmountain CampusComment on above:Performed By: #### CMP, CBCA #### [facility] ([id number]) [address] [place] [address] 04939Acadesqvsr (Bld) [Mass/Vol]13.0 g/hBZqpgwv41.7-15.5PThe Christ HospitalComment on above:Performed By: #### CMP, CBCA #### [facility] ([id number]) [address] [place] [address] 52106Nmgydrzvxyy (Bld) [#/Vol]0.5 10*3/uLLow1.0-3.5PThe Christ HospitalComment on above:Performed By: #### CMP, CBCA #### [facility] ([id number]) [address] [place] [address] 24133Zqikvjpaaie/100 WBC (Bld)11.5 %NormalSelect Medical Specialty Hospital - Columbus Comment on above:Performed By: #### CMP, CBCA #### [facility] ([id number]) [address] [place] [address] 66190HVS (RBC) [Entitic mass]28.6 knFslgfs61-18HeuXtaowvThe Hospitals Of Providence Transmountain CampusComment on above:Performed By: #### CMP, CBCA #### [facility] ([id number]) [address] [place] [address] 80809UXJD (RBC) [Mass/Vol]33.5 g/aLGldtns31-73BsnJvkqtkThe Hospitals Of Providence Transmountain CampusComment on above:Performed By: #### CMP, CBCA #### [facility] ([id number]) [address] [place] [address] 00855AXI (RBC) [Entitic vol]85 qYJxjyeq28-819JuiNqlihjSelect Medical Specialty Hospital - ColumbusComment on above:Performed By: #### CMP, CBCA #### [facility] ([id number]) [address] [place] [address] 43291Yksmqnyin (Bld) [#/Vol]0.2 10*3/uLNormal0-0.9Select [facility]ty Hospital - ColumbusComment on above:Performed By: #### CMP, CBCA #### [facility] ([id number]) [address] [place] [address] 40939Lsgzrcmcj/100 WBC (Bld)5.1 %[facility] Comment on above:Performed By: #### CMP, CBCA #### [facility] ([id number]) [address] [place] [address] 63642Sqkmsmvhqsr/100 WBC (Bld)82.3 %[facility] Comment on above:Performed By: #### CMP, CBCA #### [facility] ([id number]) [address] [place] [address] 50616Jbffhvis mean volume (Bld) [Entitic vol]8.6 fLNormal7-12 [facility] Hospital - ColumbusComment on above:Performed By: #### CMP, CBCA #### [facility] ([id number]) [address] [place] [address] 36289Fwaqvywmr (Bld) [#/Vol]225 10*3/bUBuunmb962-491EmdLfuwyi Fremont HospitalComment on above:Performed By: #### CMP, CBCA #### [facility] ([id number]) [address] [place] [address] 36397JVC COUNT4.55 X10E12/LNormal3.80-5.20[facility] Comment on above:Performed By: #### MARLENE, CBCA #### [facility] ([id number]) [address] [place] [address] 98748BMR (Bld) [#/Vol]4.6 10*3/uLNormal4.0-11.0ProThe Hospitals Of Providence Transmountain CampusComment on above:Performed By: #### CMP, CBCA #### [facility] ([id number]) [address] [place] [address] 73574VFJMYCOKTRZBU METABOLIC PANELon 54-92-5655Yywsvmd [Mass/Vol]3.6 g/dLNormal3.2-5.3PThe Christ HospitalComment on above:Performed By: #### CMP, CBCA #### [facility] ([id number]) [address] [place] [address], [place] [address]LIV [Catalytic activity/Vol]65 U/LDlnugy59-544YjoVartluThe Hospitals Of Providence Transmountain CampusComment on above:Performed By: #### CMP, CBCA #### [facility] ([id number]) [address] [place] [address], [place] [address]UHU [Catalytic activity/Vol]29 U/LNormal0-31PThe Christ HospitalComment on above:Performed By: #### CMP, CBCA #### [facility] ([id number]) [address] [place] [address], [place] [address]Qikkv gap [Moles/Vol]10 mmol/LNormal5-15ProThe Hospitals Of Providence Transmountain CampusComment on above:Performed By: #### CMP, CBCA #### [facility] ([id number]) [address] [place] [address], [place] [address]TVN [Catalytic activity/Vol]36 U/LNormal0-41ProThe Hospitals Of Providence Transmountain CampusComment on above:Performed By: #### CMP, CBCA #### [facility] ([id number]) [address] [place] [address], [place] [address]Ciroakfix [Mass/Vol]0.9 mg/dLNormal0.3-1.2PThe Christ HospitalComment on above:Performed By: #### MARLENE, CBCA #### [facility] ([id number]) [address] [place] [address], [place] [address]Jgjfdog [Mass/Vol]8.3 mg/dLLow8.5-10.5PThe Christ HospitalComment on above:Performed By: #### MARLENE, CBCA #### [facility] ([id number]) [address] [place] [address], [place] [address]Cojjanjz [Moles/Vol]103 mmol/BKbqopg35-768CucNavzxpThe Hospitals Of Providence Transmountain CampusComment on above:Performed By: #### MARLENE CBCA #### [facility] ([id number]) [address] [place] [address], [place] [address]AF2 [Moles/Vol]22 mmol/JLeimmf31-99YawFmraygThe Christ Hospital Comment on above:Performed By: #### MARLENE, CBCA #### [facility] ([id number]) [address] [place] [address], [place] [address]Laemantjba [Mass/Vol]0.72 mg/dLNormal0.40-1.00ProThe Hospitals Of Providence Transmountain CampusComment on above:Result Comment: METHOD TRACEABLE TO IDMS STANDARD Performed By: #### MARLENE, CBCA #### [facility] ([id number]) [address] [place] [address], [place] [address]mLNT (CKD-EPI) NON-RACE DEPENDENT>90Normal>59ProThe Hospitals Of Providence Transmountain CampusComment on above:Result Comment: Reported eGFR is based on the CKD-EPI 2020 equation that does not use a race coefficient.Performed By: #### MARLENE, CBCA #### [facility] ([id number]) [address] [place] [address] 30126Uiadkkh [Mass/Vol]103 mg/fRMzaz38-59JecTjqrwtThe Hospitals Of Providence Transmountain Campus Comment on above:Performed By: #### CMP, CBCA #### [facility] ([id number]) [address] [place] [address] 71095Fbtgndkqe [Moles/Vol]3.5 mmol/LNormal3.5-5.0ProThe Hospitals Of Providence Transmountain CampusComment on above:Performed By: #### CMP, CBCA #### [facility] ([id number]) [address] [place] [address] 48091Xhlzjup [Mass/Vol]6.9 g/dLNormal6.0-8.0ProThe Hospitals Of Providence Transmountain CampusComment on above:Performed By: #### CMP, CBCA #### [facility] ([id number]) [address] [place] [address] 99193Qxiged [Moles/Vol]135 mmol/HNqwmzz770-049AyvIdliyn Fremont HospitalComment on above:Performed By: #### CMP, CBCA #### [facility] ([id number]) [address] [place] [address] 38796Sbjh nitrogen [Mass/Vol]16 mg/dLNormal5-23ProThe Hospitals Of Providence Transmountain CampusComment on above:Performed By: #### CMP, CBCA #### [facility] ([id number]) [address] [place] [address] 94487LP ABDOMEN AND PELVIS W CONTon 23-26-8093QL ABDOMEN AND PELVIS W CONTCT ABDOMEN AND [...] by Huang Burleson MD on 08/28/2024 8:12 PMNormalProThe Hospitals Of Providence Transmountain CampusHCG ( test) Ql (U)on 98-31-6632Hxba HCG ( test) Ql (U) NegativeNormalNEGSelect Medical Specialty Hospital - ColumbusComment on above:Performed By: #### 2106-3 #### [facility] ([id number]) [address] [place] [address] 47024EQW MACROSCOPIC NURon 49-42-7653BYXWAFURO NURSmallAbnormalNEG Pro[facility] Gardner SanitariumComment on above:Performed By: #### NUM #### [facility] ([id number]) [address] [place] [address] 72917FQXBP/HGB NURNegativeNormalNEGProThe Hospitals Of Providence Transmountain CampusComment on above:Performed By: #### NUM #### [facility] ([id number]) [address] [place] [address] 17887WYIODWH NURNegativeNormalNEGProThe Hospitals Of Providence Transmountain CampusComment on above:Performed By: #### NUM #### [facility] ([id number]) [address] [place] [address], [place] [address]TLCIFIM NURNegativeNormalNEGProThe Hospitals Of Providence Transmountain CampusComment on above:Performed By: #### NUM #### [facility] ([id number]) [address] [place] [address], [place] [address]UVDQLXXUY ESTERASE NURNegativeNormalNEGProThe Hospitals Of Providence Transmountain CampusComment on above:Performed By: #### NUM #### [facility] ([id number]) [address] [place] [address], [place] [address]VOXRLOK NURNegativeNormalNEGProThe Hospitals Of Providence Transmountain CampusComment on above:Performed By: #### NUM #### [facility] ([id number]) [address] [place] [address], [place] [address]OQ NUR5.8Ctpimx3.0-8.5PThe Christ HospitalComment on above:Performed By: #### NUM #### [facility] ([id number]) [address] [place] [address], [place] [address]GJSVOWQ MOLLY>=300AbnormalNEGSelect Medical Specialty Hospital - ColumbusComment on above:Performed By: #### NUM #### [facility] ([id number]) [address] [place] [address], [place] [address]KWAQQMPD GRAVITY MOLLY>=1.592Podvtt1.003-1.035ProThe Hospitals Of Providence Transmountain CampusComment on above:Performed By: #### NUM #### [facility] ([id number]) [address] [place] [address], [place] [address]HXWNEEPVAASV NUR0.2 eu/dLNormal<1.1PThe Christ Hospital Comment on above:Performed By: #### NUM #### [facility] ([id number]) [address] [place] [address], [place] [address]RQLX TRICHOMONAS/WET PREPon 63-31-0262ZVF PREP TRIC BV CYDNEY Wet Prep Tric BV Cydney WP.BACT Bacteria^Bacteria NOMS HealthcareWET PREP TRIC BV CANDIDAWP.CLUE Clue Cells^Clue CellsNOMS HealthcareWET PREP TRIC BV CANDIDAWP.JEANNETTE Fungal Elements^Fungal ElementsNOMS HealthcareWET PREP TRIC BV CANDIDAWP.RBC RBC^RBCNOMS HealthcareWET PREP TRIC BV CANDIDAWP.TRICH Trichomonas^TrichomonasNOMS HealthcareWET PREP TRIC BV CYDNEY WP.WBC WBC^WBCNOMS HealthcareCLINISYNCNOMS HealthcareNo Panel Informationon 26-95-8439TSP PREP TRIC BV CANDIDAF Few^FewNOMS HealthcareWET PREP TRIC BV CANDIDAN None Seen^None SeenNOMS HealthcareXR LUMBAR SPINE 2 OR 3Von 06-03-2024 [place] [address] XRay Report Signed Patient: JES ROMERO MR#: [id number] : 2000 Acct:[id number] Age/Sex: 23 / F ADM Date: 06/01/24 Loc: [facility] Attending Dr: Manuel Noel M.D. Ordering Physician: Manuel Noel M.D. Date of Service: 06/01/24 Procedure(s): XR lumbar spine 2-3V Accession Number(s): [id number] cc: Manuel Noel M.D. [address] [address] Patient Name: JES ROMERO MRN: [id number] date: 2000 Sex: F Assigned Patient Location: [facility] Current Patient Location: Accession/Order Number: [id number] Exam Date: 06/01/2024 14:19 Report Date: 06/03/2024 [...] Signed By: 06/03/24 1313 DD/ 1310 TD/TT: Manager Clinic:[facility], Radiologist, - 06/03/2024 [place] [address] XRay Report Signed Patient: JES ROMERO MR#: [id number] : 2000 Acct:[id number] Age/Sex: 23 / F ADM Date: 06/01/24 Loc: [facility] Attending Dr: Manuel Noel M.D. Ordering Physician: Manuel Noel M.D. Date of Service: 06/01/24 Procedure(s): XR lumbar spine 2-3V Accession Number(s): [id number] cc: Manuel Noel M.D. [place] [address] Patient Name: JES ROMERO MRN: [id number] date: 2000 Sex: F Assigned Patient Location: [facility] Current Patient Location: Accession/Order Number: [id number] Exam Date: 06/01/2024 14:19 Report Date: 06/03/2024 [...] Signed By: 06/03/24 1313 DD/ 1310 TD/TT: Manager Clinic: [facility] HealthcareRadiology Study observation (narrative)NOMMaribell HealthcareXR LUMBAR SPINE 2 OR 3VOrdered By: Radiologist Radiology on 89-13-0074[facility] Work Phone: PRBC LEUKOREDUCEDon 64-68-7235UDB and Rh group Nom (Bld)Cross Match Result Compatible Unit Blood Type O Pos Unit Number [id number] Status Information Transfused Product ID Red Blood Cells Product Code [id number] Cross Match Result Compatible Unit Blood Type O Pos Unit Number [id number] Status Information Transfused Product ID Red Blood Cells Product Code [id number] Doctors HospitalComment on above:Performed By: #### PRBC ####[facility] Cyjukcuw[address] [place], [place] [address]Dr. Benoit DiggsCBC AUTO DIFFon 43-90-9519NWAB #0.1 103/ulNormal0.0-0.1The [facility] HospitalComment on above:Performed By: #### CBC ####[facility] [address] [place], [place] [address]Dr.Benoit DiggsBasophils/100 WBC (Bld)1.2 %Normal0.2-2.0The Genesis Hospitalment on above:Performed By: #### CBC ####[facility] G[address]rs[address] [place], [place] [address]Dr.Benoit ChangEO #0.4 103/ulNormal0.0-0.7The [facility] HospitalComment on above:Performed By: #### CBC ####[facility] Vcib[address]esd[address] [place], [place] [address]Dr.Benoit ChangEosinophils/100 WBC (Bld)4.5 %Normal 0.9-7.0The [facility] HospitalComment on above:Performed By: #### CBC ####[facility] R[address] [place], [place] [address]Dr.Benoit Diggs Erythrocyte distribution width (RBC) [Ratio]16.6 %Critically high11.0-15.0The [facility] HospitalComment on above:Performed By: #### CBC ####[facility] [address] [place] [address]Dr.Benoit DontaeHematocrit (Bld) [Volume fraction]40.3 %Awiyqr06.0-48.0The [facility] HospitalComment on above:Performed By: #### CBC ####[facility] [address] [place], [place] [address]Dr.Benoit DiggsHemoglobin (Bld) [Mass/Vol]12.6 g/dL Mgzurf12.0-16.0The [facility] HospitalComment on above:Performed By: #### CBC ####[facility] [address]ky[address] [place], [place] [address]Dr. Benoit ChangIG #0.04 10e3/ulCritically high0.00-0.03The [facility] HospitalComment on above:Performed By: #### CBC ####[facility] T[address]ft[address] [place], [place] [address]Dr.Benoit DiggsIG %0.5 %Normal0.0-0.5The [facility] HospitalComment on above:Performed By: #### CBC ####[facility] [address]zohbs[address] [place], [place] [address]Dr.Benoit DiggsLYMPH #3.0 103/ulNormal1.2-3.8The [facility] HospitalComment on above:Performed By: #### CBC ####[facility] Lkwbaykm[address] [place], [place] [address]Dr. Benoit DiggsLymphocytes/100 WBC (Bld)36.0 %Pejguq92.5-60.0The [facility] Comment on above:Performed By: #### CBC ####[facility] Y[address]fq[address] [place], [place] [address]Dr.Benoit DiggsMANUAL DIFF REQNONormalThe [facility] HospitalComment on above:Performed By: #### CBC ####[facility] Lqcfolabpp[address] [place], [place] [address]Dr.Benoit DiggsMCH (RBC) [Entitic mass]25.3 pgCritically low26.7-34.0The [facility] HospitalComment on above:Performed By: #### CBC ####[facility] Cctpnirphe[address] [place], [place] [address]Dr.Benoit DiggsMCHC (RBC) [Mass/Vol]31.3 g/dLNormal 29.9-35.2The [facility] HospitalComment on above:Performed By: #### CBC ####[facility] Icroqtpmec[address] [place], [place] [address]Dr. eBnoit DiggsMCV (RBC) [Entitic vol]80.9 fLCritically low81.0-99.0The [facility] HospitalComment on above:Performed By: #### CBC ####[facility] Xscprrqrci[address] [place], [place] [address]Dr.Benoit DiggsMONO #0.4 103/ulNormal0.3-0.8The [facility] HospitalComment on above:Performed By: #### CBC ####[facility] Eguwaerrss[address] [place], [place] [address]Dr. Benoit DontaeMonocytes/100 WBC (Bld)4.8 %Normal1.7-12.0The [facility] Comment on above:Performed By: #### CBC ####[facility] Feugngfise[address] [place], [place] [address]Dr.Benoit DiggsNEUT #4.4 103/ulNormal1.4-6.5 The [facility] HospitalComment on above:Performed By: #### CBC ####[facility] [address]qhtkvwyo[address] [place], [place] [address]Dr.Benoit Diggs Neutrophils/100 WBC (Bld)53.0 %Ktqcpv85.0-75.0The [facility] HospitalComment on above:Performed By: #### CBC ####[facility] Qrwwrcqabu[address] [place], [place] [address]Dr.Karyaurora DontaePlatelet mean volume (Bld) [Entitic vol] 10.8 fLNormal9.5-13.5The [facility] HospitalComment on above:Performed By: #### CBC ####[facility] [address] [place] [address]Dr. Benoit DiggsPLT410 103/plVymlcp057-993Gyu [facility] HospitalComment on above: Performed By: #### CBC ####[facility] [address] [place] [address]Dr.Benoit DiggsRBC4.98 106/ulNormal4.20-5.40The [facility] HospitalComment on above:Performed By: #### CBC ####[facility] [address] [place], [place] [address]Dr.Benoit DiggsWBC8.3 103/ul Normal4.0-11.0The [facility] HospitalComment on above:Performed By: #### CBC ####[facility] Ktmxeuvx[address] [place], [place] [address]Dr. Karyaurora DontaeGLYCOHEMOGLOBIN A1Con 03-04-0657GVK RECOMMENDATIONSEE [facility] HospitalComment on above:Result Comment: ADA RECOMMENDED LIMIT 4.0 - 6.0 ADA THERAPEUTIC TARGET < 7.0 ACTION SUGGESTED > 7.0Performed By: #### A1C ####[facility] Advnukcjsu[address] [place], [place] [address]Dr. Karyaurora DontaeGlucose [Mass/Vol]100 mg/dLWestern Reserve HospitalCommymichigan medical center sagin[place] on above:Performed By: #### A1C ####[facility] Ifpobembrz[address] [place], [place] [address]Dr.Karyaurora YjvscQkG7x (Bld) [Mass fraction]5.1 %Normal 4.5-6.2The [facility] HospitalComment on above:Performed By: #### A1C ####[facility] Nvarrsbujp[address] [place], [place] [address]Dr.Benoit DiggsLIPID PROFILEon 06-22-5311HONP-HDL RATIO NORMSEE [facility] Comment on above:Result Comment: 3.3 - 4.4 LOW RISK 4.4 - 7.1 AVERAGE RISK 7.1 - 11.0 MODERATE RISK >11.0 HIGH RISKPerformed By: #### LIVER, LIPID, BMP, TSH ####[facility] [address] [place] [address]Dr. Yilan ChangCholesterol [Mass/Vol]184 mg/dLNormal<=200The [facility] Comment on above:Performed By: #### LIVER, LIPID, BMP, TSH ####[facility] [address]ors[address]ar[address] [place] [address]Dr. Yilan ChangCholesterol in HDL [Mass/Vol]52 mg/nHIwgmte60-09Mgw [facility] HospitalComment on above: Performed By: #### LIVER, LIPID, BMP, TSH ####[facility] [address] [place] [address]Dr. Yilan ChangCholesterol in LDL [Mass/Vol] 114.8 mg/dLNoOhioHealth Doctors HospitalComment on above:Performed By: #### LIVER, LIPID, BMP, TSH ####[facility] Eatwhewwjm[address] [place], [place] [address]Dr. Yilan ChangCholesterol.total/Cholesterol in HDL [Mass ratio]3.5 {ratio}NormalThe [facility] HospitalComment on above:Performed By: #### LIVER, LIPID, BMP, TSH ####[facility] [address] [place] [address]Dr. Yilan ChangHDL NORMAL> or = 60 mg/dl - LOW CARDIOVASCULAR RISK <40 mg/dl - HIGH CARDIOVASCULAR RISKNoOhioHealth Doctors HospitalComment on above: Performed By: #### LIVER, LIPID, BMP, TSH ####[facility] [address] [place] [address]Dr. Yilan ChangLDL CALC NORMALSEE BELOW NormalThe [facility] HospitalComment on above:Result Comment: <100 mg/dl OPTIMAL 100 - 129 mg/dl NEAR OR ABOVE OPTIMAL 130 - 159 mg/dl BORDERLINE HIGH 160 - 189 mg/dl HIGH >190 mg/dl VERY HIGHPerformed By: #### LIVER, LIPID, BMP, TSH ####[facility] [address] [place] [address]Dr. Yilan ChangTriglyceride [Mass/Vol]86 mg/dLNormal<=150The [facility] Comment on above:Performed By: #### LIVER, LIPID, BMP, TSH ####[facility] [address] [place] [address]Dr. Yilan ChangVLDL CALC17.2 mg/dLNormalThe [facility] HospitalComment on above:Performed By: #### LIVER, LIPID, BMP, TSH ####[facility] [address] [place] [address]Dr. Benoit DiggsLIVER PROFILEon 24-35-5056Jakubjz [Mass/Vol]3.3 g/dL Critically low3.4-5.0The [facility] HospitalComment on above:Performed By: #### LIVER, LIPID, BMP, TSH ####[facility] [address] [place] [address]Dr. Yilan ChangAlbumin/Globulin [Mass ratio]0.8 {ratio}NormalThe [facility] HospitalComment on above:Performed By: #### LIVER, LIPID, BMP, TSH ####[facility] [address] [place] [address]Dr. Yilan ChangALP [Catalytic activity/Vol]110 U/CRstcat95-344Dbd [facility] HospitalComment on above:Performed By: #### LIVER, LIPID, BMP, TSH ####[facility] [address]zec[address] [place], [place] [address]Dr. Yilan ChangALT [Catalytic activity/Vol]25 U/LKyyhxu47-48Qlm [facility] Comment on above:Performed By: #### LIVER, LIPID, BMP, TSH ####[facility] Cckwtpjodr[address] [place], [place] [address]Dr. Yilan ChangAST [Catalytic activity/Vol]20 U/JUyibvt48-71Cmf [facility] HospitalComment on above:Performed By: #### LIVER, LIPID, BMP, TSH ####[facility] Y[address]juxafjs[address] [place], [place] [address]Dr. Yilan ChangBILI, CONJUGATED0.1 mg/dLNormal0.0-0.2 The [facility] HospitalComment on above:Performed By: #### LIVER, LIPID, BMP, TSH ####[facility] Rutvltmgbw[address] [place], [place] [address]Dr. Yilan ChangBilirubin [Mass/Vol]0.4 mg/dLNormal0.2-1.0The [facility] Comment on above:Performed By: #### LIVER, LIPID, BMP, TSH ####[facility] [address] [address]Dr. Benoit ChangGlobulin (S) [Mass/Vol]3.9 g/dLNormalThe [facility] HospitalComment on above:Performed By: #### LIVER, LIPID, BMP, TSH ####[facility] [id number] [address]Dr. Benoit ChangProtein [Mass/Vol]7.2 g/dLNormal6.4-8.2 [facility] HospitalComment on above:Performed By: #### LIVER, LIPID, BMP, TSH ####[facility] [address] [address]Dr. Benoit DiggsPROF CHEM 8 (BAS METB)on [id number] gap [Moles/Vol]13.2 mmol/L NormalBarberton Citizens HospitalComment on above:Performed By: #### CBC #### [facility] [address] [address] [address] Benoit DiggsCalcium [Mass/Vol]9.2 mg/dLNormal8.5-10.1[facility] Comment on above:Performed By: #### CBC #### [facility] [address] [address] [address] Benoit DiggsChloride [Moles/Vol]108 mmol/LCritically [id number] [facility] HospitalComment on above:Performed By: #### CBC #### [facility] [address] [address] [address] Benoit DiggsCO2 [Moles/Vol]27.9 mmol/IVibxib70.0-32.0The [facility] Comment on above:Performed By: #### CBC #### [facility] [address] [address] [address] Benoit DiggsCreatinine [Mass/Vol]0.62 mg/dLNormal0.55-1.02[facility] HospitalComment on above:Performed By: #### CBC #### [facility] [address] [address] [address] Benoit KrausGFR-AF SUDANESE>60Normal>=60The [facility] HospitalComment on above:Performed By: #### CBC #### [facility] [address] [address] [address] Benoit KrausGFR-NON AF SUDANESE>60Normal>=60The [facility] HospitalComment on above:Performed By: #### CBC #### [facility] [address] [address] [address] Benoit DiggsGlucose [Mass/Vol]92 mg/cVFwehfb55-602Xbv [facility] Comment on above:Performed By: #### CBC #### [facility] [address] [place] [address] Dr. Benoit DiggsPotassium [Moles/Vol]4.1 mmol/LNormal3.5-5.1[facility] Comment on above:Performed By: #### CBC #### [facility] [address] [address] [address] Benoit DiggsSodium [Moles/Vol]145 mmol/VUgdqlb956-130ZalBarberton Citizens Hospital Comment on above:Performed By: #### CBC #### [facility] [address] [address] [address] Benoit DiggsUrea nitrogen [Mass/Vol]8.0 mg/dLNormal7.0-18.0The [facility] HospitalComment on above:Performed By: #### CBC #### [facility] [address] [address] [address] Benoit Sanchez nitrogen/Creatinine [Mass ratio]12.9 mg/mgNormalThe [facility] HospitalComment on above:Performed By: #### CBC #### [facility] [address] [address] [address] Benoit Becerra [id number] uIU/mLNormal0.358-3.740The [facility] HospitalComment on above:Performed By: #### CBC #### [facility] [address] [place] [address] Dr. Benoit Oseguera AUTO DIFFon [id number] #0.1 103/ulNormal0.0-0.1The [facility] HospitalComment on above:Performed By: #### CBC #### [facility] [address] [place] [address] Dr. Benoit DiggsBasophils/100 WBC (Bld)0.7 %Normal0.2-2.0The [facility] Comment on above:Performed By: #### CBC #### [facility] [address] [place] [address] Dr. Benoit Aleman #0.4 103/ulNormal0.0-0.7The [facility] HospitalComment on above: Performed By: #### CBC #### [facility] [address] [place] [address] Dr. Benoit Krausosinophils/100 WBC (Bld)3.8 %Normal0.9-7.0The [facility] Comment on above:Performed By: #### CBC #### [facility] [address] [place] [address] Dr. Benoit Krausrythrocyte distribution width (RBC) [Ratio]15.2 %Critically high 11.0-15.0The [facility] HospitalComment on above:Performed By: #### CBC #### [facility] [address] [place] [address] Dr. Benoit DiggsHematocrit (Bld) [Volume fraction]28.7 %Critically low36.0-48.0 The [facility] HospitalComment on above:Performed By: #### CBC #### [facility] [address] [place] [address] Dr. Benoit DiggsHemoglobin (Bld) [Mass/Vol]9.1 g/dLCritically low12.0-16.0The [facility] HospitalComment on above:Performed By: #### CBC #### [facility] [address] [place] [address] Dr. Benoit Amado #0.05 10e3/ulCritically high0.00-0.03The [facility] Comment on above:Performed By: #### CBC #### [facility] [address] [place] [address] Dr. Benoit Amado %0.5 %Normal0.0-0.5The [facility] HospitalComment on above: Performed By: #### CBC #### [facility] [address] [place] [address] Dr. Benoit Dennis #3.3 103/ulNormal1.2-3.8The [facility] HospitalComment on above:Performed By: #### CBC #### [facility] [address] [place] [address] Dr. Benoit Beckmanhocytes/100 WBC (Bld)31.8 %Dxsmvg53.5-60.0The [facility] HospitalComment on above:Performed By: #### CBC #### [facility] [address] [place] [address] Dr. Benoit FuentesUAL DIFF REQNONormalThe [facility] HospitalComment on above: Performed By: #### CBC #### [facility] [address] [place] [address] Dr. Benoit Fisher (RBC) [Entitic mass]25.3 pgCritically low26.7-34.0The [facility] HospitalComment on above:Performed By: #### CBC #### [facility] [address] [place] [address] Dr. Benoit Lima (RBC) [Mass/Vol]31.7 g/dHIveguh34.9-35.2The [facility] HospitalComment on above:Performed By: #### CBC #### [facility] [address] [place] [address] Dr. Benoit Lima (RBC) [Entitic vol]79.9 fLCritically low81.0-99.0The [facility] HospitalComment on above:Performed By: #### CBC #### [facility] [address] [place] [address] Dr. Benoit Castellano #0.7 103/ulNormal0.3-0.8The [facility] HospitalComment on above:Performed By: #### CBC #### [facility] [address] [place] [address] Dr. Benoit Funezocytes/100 WBC (Bld)7.2 %Normal1.7-12.0The [facility] Comment on above:Performed By: #### CBC #### [facility] [address] [place] [address] Dr. Benoit Amaya #5.8 103/ulNormal1.4-6.5The [facility] HospitalComment on above:Performed By: #### CBC #### [facility] [address] [place] [address] Dr. Benoit Herrerautrophils/100 WBC (Bld)56.0 %Lwfuhs99.0-75.0The [facility] HospitalComment on above:Performed By: #### CBC #### [facility] [address] [place] [address] Dr. Benoit Pearllet mean volume (Bld) [Entitic vol]10.5 fLNormal9.5-13.5The [facility] HospitalComment on above:Performed By: #### CBC #### [facility] [address] [place] [address] Dr. Benoit DiggsPLT152 103/zcJdtxjd823-101Xdk [facility] HospitalComment on above: Performed By: #### CBC #### [facility] [address] [place] [address] Dr. Benoit DiggsRBC3.59 106/ulCritically low4.20-5.40The [facility] HospitalComment on above:Performed By: #### CBC #### [facility] [address] [place] [address] Dr. Benoit DiggsWBC10.3 103/ulNormal4.0-11.0The [facility] HospitalComment on above:Performed By: #### CBC #### [facility] [address] [place] [address] Dr. Benoit Oseguera AUTO DIFFon [id number] #0.0 103/ulNormal0.0-0.1The [facility] HospitalComment on above:Performed By: #### CBC #### [facility] [address] [address] [address] Benoit DiggsBasophils/100 WBC (Bld)0.4 %Normal0.2-2.0The [facility] Comment on above:Performed By: #### CBC #### [facility] [address] [place] [address] Dr. Benoit Aleman #0.3 103/ulNormal0.0-0.7The [facility] HospitalComment on above: Performed By: #### CBC #### [facility] [address] [place] [address] Dr. Benoit Krausosinophils/100 WBC (Bld)3.1 %Normal0.9-7.0The [facility] Comment on above:Performed By: #### CBC #### [facility] [address] [place] [address] Dr. Benoit Krausrythrocyte distribution width (RBC) [Ratio]15.5 %Critically high 11.0-15.0The [facility] HospitalComment on above:Performed By: #### CBC #### [facility] [address] [place] [address] Dr. Benoit DiggsHematocrit (Bld) [Volume fraction]22.0 %Critically low36.0-48.0 The [facility] HospitalComment on above:Performed By: #### CBC #### [facility] [address] [place] [address] Dr. Benoit DiggsHemoglobin (Bld) [Mass/Vol]6.8 g/dLCritically low12.0-16.0The [facility] HospitalComment on above:Performed By: #### CBC #### [facility] [address] [place] [address] Dr. Benoit Amado #0.05 10e3/ulCritically high0.00-0.03The [facility] Comment on above:Performed By: #### CBC #### [facility] [address] [address] [address] Benoit Amado %0.5 %Normal0.0-0.5The [facility] HospitalComment on above: Performed By: #### CBC #### [facility] [address] [address] [address] Benoit Dennis #2.9 103/ulNormal1.2-3.8The [facility] HospitalComment on above:Performed By: #### CBC #### [facility] [address] [address] [address] Benoit Beckmanhocytes/100 WBC (Bld)31.0 %Yapqhu64.5-60.0The [facility] HospitalComment on above:Performed By: #### CBC #### [facility] [address] [place] [address] Dr. Benoit FuentesUAL DIFF REQNONormalThe [facility] HospitalComment on above: Performed By: #### CBC #### [facility] [address] [place] [address] Dr. Benoit Lima (RBC) [Entitic mass]24.6 pgCritically low26.7-34.0The [facility] Hospitalment on above:Performed By: #### CBC #### [facility] [address] [place] [address] Dr. Benoit Lima (RBC) [Mass/Vol]30.9 g/rWOdspvr92.9-35.2The [facility] HospitalComment on above:Performed By: #### CBC #### [facility] [address] [place] [address] Dr. Benoit Lima (RBC) [Entitic vol]79.7 fLCritically low81.0-99.0The [facility] HospitalComment on above:Performed By: #### CBC #### [facility] [address] [place] [address] Dr. Benoit Castellano #0.8 103/ulNormal0.3-0.8The [facility] HospitalComment on above:Performed By: #### CBC #### [facility] [address] [place] [address] Dr. Benoit Funezocytes/100 WBC (Bld)7.9 %Normal1.7-12.0The [facility] on above:Performed By: #### CBC #### [facility] [address] [place] [address] Dr. Benoit HerreraUT #5.4 103/ulNormal1.4-6.5The [facility] HospitalComment on above:Performed By: #### CBC #### [facility] [address] [place] [address] Dr. Benoit Herrerautrophils/100 WBC (Bld)57.1 %Ioxedk02.0-75.0The [facility] HospitalComment on above:Performed By: #### CBC #### [facility] [address] [place] [address] Dr. Benoit DiggsPlatelet mean volume (Bld) [Entitic vol]11.9 fLNormal9.5-13.5The [facility] HospitalComment on above:Performed By: #### CBC #### [facility] [address] [place] [address] Dr. Benoit DiggsPLT180 103/jiStkgzi111-515Qrg [facility] HospitalComment on above: Performed By: #### CBC #### [facility] [address] [place] [address] Dr. Benoit DiggsRBC2.76 106/ulCritically low4.20-5.40The [facility] HospitalComment on above:Performed By: #### CBC #### [facility] [address] [place] [address] Dr. Benoit DiggsWBC9.5 103/ulNormal4.0-11.0The [facility] HospitalCommymichigan medical center [place] on above: Performed By: #### CBC #### [facility] [address] [place] [address] Dr. Benoit Ramírez [id number]TSFZEKNfc [facility] HospitalComment on above:Performed By: #### CBC #### [facility] [address] [address] [address] Benoit Oseguera AUTO DIFFon [id number] #0.1 103/ulNormal0.0-0.1The [facility] HospitalComment on above:Performed By: #### CBC ####[facility] [address] [place], [place] [address]DrQuincy DiggsBasophils/100 WBC (Bld)0.6 %Normal0.2-2.0The [facility] HospitalComment on above:Performed By: #### CBC ####[facility] [address] [place] [address] ChangEO #0.4 103/ulNormal0.0-0.7The [facility] HospitalComment on above:Performed By: #### CBC ####[facility] [address] [place], [place] [address]Dr.Yilan Krausosinophils/100 WBC (Bld)3.5 %Normal 0.9-7.0The [facility] HospitalComment on above:Performed By: #### CBC ####[facility] [address] [place], [place] [address]Dr.Yilan Diggs Erythrocyte distribution width (RBC) [Ratio]15.4 %Critically high11.0-15.0The [facility] HospitalComment on above:Performed By: #### CBC ####[facility] [address] [place], [place] [address]DrQuincy DiggsHematocrit (Bld) [Volume fraction]26.4 %Critically low36.0-48.0The [facility] HospitalComment on above:Performed By: #### CBC ####[facility] [address] [place], [place] [address]DrQuincy DiggsHemoglobin (Bld) [Mass/Vol]8.4 g/dL Critically low12.0-16.0The [facility] HospitalComment on above:Performed By: #### CBC ####[facility] [address] [place], [place] [address]Dr. Benoit DiggsIG #0.04 10e3/ulCritically high0.00-0.03The [facility] HospitalComment on above:Performed By: #### CBC ####[facility] [address] [address]Dr.Benoit DiggsIG %0.4 %Normal0.0-0.5The [facility] HospitalComment on above:Performed By: #### CBC ####[facility] [address] [place], [place] [address]Dr.Benoit DiggsLYMPH #2.8 103/ulNormal1.2-3.8The [facility] HospitalComment on above:Performed By: #### CBC ####[facility] [address] [place], [place] [address]Dr. Benoit DiggsLymphocytes/100 WBC (Bld)26.9 %Ljftny45.5-60.0The [facility] Comment on above:Performed By: #### CBC ####[facility] [address] [place], [place] [address]Dr.Benoit DiggsMANUAL DIFF REQNONormalThe [facility] HospitalComment on above:Performed By: #### CBC ####[facility] [address] [place], [place] [address]Dr.Benoit DiggsST. [facility] (RBC) [Entitic mass]24.7 pgCritically low26.7-34.0The [facility] HospitalComment on above:Performed By: #### CBC ####[facility] [address] [place], [place] [address]Dr.Benoit DiggsHC (RBC) [Mass/Vol]31.8 g/dLNormal 29.9-35.2The [facility] HospitalComment on above:Performed By: #### CBC ####[facility] [address] [place], [place] [address]Dr. Benoit DiggsV (RBC) [Entitic vol]77.6 fLCritically low81.0-99.0The [facility] HospitalComment on above:Performed By: #### CBC ####[facility] [address] [address]Dr.Benoit DiggsMONO #0.7 103/ulNormal0.3-0.8The [facility] HospitalComment on above:Performed By: #### CBC ####[facility] [address] [place], [place] [address]Dr. Yilan ChangMonocytes/100 WBC (Bld)6.2 %Normal1.7-12.0The [facility] Comment on above:Performed By: #### CBC ####[facility] [address] [place], [place] [address]Dr.Yilan ChangNEUT #6.5 103/ulNormal1.4-6.5 The [facility] HospitalComment on above:Performed By: #### CBC ####[facility] [address] [place], [place] [address]Dr.Benoit Diggs Neutrophils/100 WBC (Bld)62.4 %Rsxlwm62.0-75.0The [facility] HospitalComment on above:Performed By: #### CBC ####[facility] [address] [place], [place] [address]Dr.Benoit ChangPlatelet mean volume (Bld) [Entitic vol] 11.0 fLNormal9.5-13.5The [facility] HospitalComment on above:Performed By: #### CBC ####[facility] [address] [place], [place] [address]Dr. Yilan YfstvTCD032 103/agNpplvg548-583Xae [facility] HospitalComment on above: Performed By: #### CBC ####[facility] [address] [place], [place] [address]Dr.Yilan ChangRBC3.40 106/ulCritically low4.20-5.40The [facility] HospitalComment on above:Performed By: #### CBC ####[facility] [address] [place], [place] [address]Dr.Yilan UohudAIJ89.4 103/ul Normal4.0-11.0The [facility] HospitalComment on above:Performed By: #### CBC ####[facility] [address] [address]Dr. Benoit Jennings SCREEN RAPID (URINE)on [id number]PEov [facility] HospitalComment on above:Performed By: #### CBC #### [facility] [address] [place] [address] Dr. Benoit DiggsBARNegativeNormmsNEGToledo HospitalCommymichigan medical center [place] on above: Performed By: #### CBC #### [facility] [address] [address] [address] Benoit RiosPNegativeNormalNEGToledo HospitalCommymichigan medical center [place] on above: Performed By: #### CBC #### [facility] [address] [place] [address] Dr. Benoit DiggsBZONegativeNormmsNEGToledo HospitalCommymichigan medical center [place] on above: Performed By: #### CBC #### [facility] [address] [place] [address] Dr. Benoit RamirezCNegativermmsNEGToledo HospitalCommymichigan medical center [place] on above: Performed By: #### CBC #### [facility] [address] [place] [address] Dr. Benoit WagnerSt. Charles HospitalCommymichigan medical center [place] on above: Result Comment: AMP (Amphetamine): 500ng/mL, BAR (Barbituates): 200 ng/mL, BZO (Benzodiazepines): 150 ng/mL, BUP (Buprenorphine): 10 ng/mL, JOSE MANUEL (Cocaine): 150 ng/mL, mAMP (Methamphetamine): 500 ng/mL, MTD (Methadone): 200 ng/mL, OPI (Opiates): 100 ng/mL, OXY (Oxycodone): 100 ng/mL, PCP (Phencyclidine): 25 ng/mL, PPX (Propoxyphene): 300 ng/mL, THC (Cannabinoids): 50 ng/mL, TCA (Trycyclic Antidepressants): 300 ng/mLPerformed By: #### CBC #### [facility] [address] [place] [address] Dr. Benoit Jennings CUT HEADERDRUG CLASS TEST SYSTEM CUT-OFF CONCENTRATIONS ARE FOLLOWS:NormalThe [facility] HospitalComment on above:Performed By: #### CBC #### [facility] [address] [address] [address] Benoit DiggsmAMPNegativeNormalNEGATIVEBarberton Citizens HospitalComment on above: Performed By: #### CBC #### [facility] [address] [place] [address] Dr. Benoit DiggsMTDNegativeNormalNEGATIVEBarberton Citizens HospitalComment on above: Performed By: #### CBC #### [facility] [address] [address] [address] Benoit DiggsOPINegativeNormalNEGATIVEBarberton Citizens HospitalComment on above: Performed By: #### CBC #### [facility] [address] [place] [address] Dr. Benoit DiggsOXYNegativeNormalNEGATIVEBarberton Citizens HospitalComment on above: Performed By: #### CBC #### [facility] [address] [address] [address] Benoit DiggsPCPNegativeNormalNEGATIVEBarberton Citizens HospitalCommymichigan medical center [place] on above: Performed By: #### CBC #### [facility] [address] [place] [address] Dr. Benoit DiggsPPXNegativeNormalNEGOhio State East Hospital on above: Performed By: #### CBC #### [facility] [address] [place] [address] Dr. Benoit DiggsTCANegativeNormalNEGATIVESelect Medical [facility]ty [facility] HospitalCommymichigan medical center [place] on above: Performed By: #### CBC #### [facility] [address] [place] [address] Dr. Benoit DiggsTHCNegativeNormalNEGATIVEFirelands Regional Medical Center South Campusment on above: Performed By: #### CBC #### [facility] [address] [place] [address] Dr. Benoit Delgado AND SCREENon [id number] AND SCREENNegativeNormalThe [facility] HospitalComment on above:Performed By: #### TNS #### [facility] [address] [address] [address] Benoit Wiseman (CLEAN/CATCH) CONTENT ANALYST/MICRO IF IND.on [id number] Ql (U) NegativeNormalNEGATIVEFirelands Regional Medical Center South Campusment on above:Performed By: #### CBC #### [facility] [address] [address] [address] Benoit DiggsClarity (U)CLEARNormalCLEARFirelands Regional Medical Center South Campusment on above: Performed By: #### CBC #### [facility] [address] [address] [address] Benoit DiggsColor (U)YELLOWNormalYELLOWBarberton Citizens HospitalCommymichigan medical center [place] on above: Performed By: #### CBC #### [facility] [address] [place] [address] Dr. Benoit DiggsGlucose Ql (U)NegativeNormalNEGATIVEBarberton Citizens HospitalComment on above:Performed By: #### CBC #### [facility] [address] [address] [address] Benoit DiggsHemoglobin Ql (U)NegativeNormalNEGAdena Pike Medical Center on above:Performed By: #### CBC #### [facility] [address] [address] [address] Benoit DiggsKetones Ql (U)NegativeNormalNEGATIVEFirelands Regional Medical Center South Campusment on above:Performed By: #### CBC #### [facility] [address] [address] [address] Benoit DiggsLEUKOCYTESNegativeNormalNEGATIVEOhioHealth Doctors Hospital on above:Performed By: #### CBC #### [facility] [address] [address] [address] Benoit DiggsNitrite Ql (U)NegativeNormalNEGATIVEOhioHealth Doctors Hospital on above:Performed By: #### CBC #### [facility] [address] [place] [address] Dr. Benoit DiggspH (U)6.0 [pH]Normal5-9The [facility] HospitalComment on above: Performed By: #### CBC #### [facility] [address] [place] [address] Dr. Benoit DiggsSPEC GRAVITY1.730Xvgltj2.005-<=1.025The [facility] HospitalComment on above:Performed By: #### CBC #### [facility] [address] [place] [address] Dr. Benoit Wiseman PROTEINTRACENormalNEGATIVE/ TRACEThe [facility] HospitalComment on above:Performed By: #### CBC #### [facility] [address] [place] [address] Dr. Benoit Veras MICRO INDNOT INDICATEDNormalThe [facility] HospitalComment on above:Performed By: #### CBC #### [facility] [address] [place] [address] Dr. Benoit Milesbilinogen Qn (U)4 {Nadege'U}/dLAbnormal0.2 - 1.0The [facility] Hospitalment on above:Performed By: #### CBC #### [facility] [address] [place] [address] Dr. Benoit GusmanLTPAULINE URINEon [id number] URINECulture Observations: MODERATE GROWTH OF MIXED GENITAL RIZWAN. NO POTENTIAL PATHOGENS SEEN.NormalThe [facility] HospitalComment on above:Performed By: #### URCX #### [facility] [address] [place] [address] Dr. Benoit Wiseman (CLEAN/CATCH) CONTENT ANALYST/MICRO IF IND.on [id number] Ql (U) SMALLAbnormalNEGATIVEThe [facility] HospitalComment on above:Performed By: #### CBC #### [facility] [address] [place] [address] Dr. Benoit Rodrigezarity (U)CLEARNormalCLEARThe [facility] HospitalComment on above: Performed By: #### CBC #### [facility] [address] [place] [address] Dr. Benoit Loya (U)DK. ORANGEAbnormalYELLOWBarberton Citizens HospitalComment on above:Performed By: #### CBC #### [facility] [address] [address] [address] Benoit DiggsGlucose Ql (U)NegativeNormalNEGATIVEBarberton Citizens HospitalComment on above:Performed By: #### CBC #### [facility] [address] [address] [address] Benoit DiggsHemoglobin Ql (U)NegativeNormalNEGToledo Hospital Comment on above:Performed By: #### CBC #### [facility] [address] [address] [address] Benoit DiggsKetones Ql (U)TRACEAbnormalNEGATIVEBarberton Citizens HospitalComment on above:Performed By: #### CBC #### [facility] [address] [place] [address] Dr. Benoit DiggsLEUKOCYTESSMALLAbnoalNEGToledo HospitalComment on above:Performed By: #### CBC #### [facility] [address] [place] [address] Dr. Benoit DiggsNitrite Ql (U)NegativeNormalNEGToledo HospitalComment on above:Performed By: #### CBC #### [facility] [address] [place] [address] Dr. Benoit DiggspH (U)5.5 [pH]Normal5-9Bar[facility] HospitalComment on above: Performed By: #### CBC #### [facility] [address] [place] [address] Dr. Benoit DiggsSPEC GRAVITY>=1.078Zpyazjmh6.005-<=1.025[facility] Comment on above:Performed By: #### CBC #### [facility] [address] [address] [address] Benoit Wiseman PIVHGKX365 mg/dlAbnoalNEGATRIUM HEALTH/ TRACEBarberton Citizens Hospital Comment on above:Performed By: #### CBC #### [facility] [address] [place] [address] Dr. Benoit Veras MICRO INDINDICATEDNoalThSycamore Medical CenterComment on above: Performed By: #### CBC #### [facility] [address] [address] [address] Benoit Kahn Qn (U)8 {Nadege'U}/dLAbnormal0.2 - 1.0The [facility] on above:Performed By: #### CBC #### [facility] [address] [address] [address] Benoit Stewart MICROSCOPIC ONLYon [id number]GSCR SEENOhioHealth Doctors Hospital on above:Performed By: #### CBC #### [facility] [address] [address] [address] Benoit Loco identified Cx Nom (U)INDICATEDNoalThSt. Anthony's Hospital on above:Performed By: #### CBC #### [facility] [address] [place] [address] Dr. Benoit Norton SEENNormalNONE SEENOhioHealth Doctors Hospital on above:Performed By: #### CBC #### [facility] [address] [place] [address] Dr. Benoit Gomez LM Nom (Urine sed)NONE SEENNormalNONE SEENOhioHealth Doctors Hospital on above:Performed By: #### CBC #### [facility] [address] [place] [address] Dr. Laboy ChangEpithelial cells LM Ql (Urine sed)MANYAbnormalNONE SEEN /RAREThe [facility] on above:Performed By: #### CBC #### [facility] [address] [place] [address] Dr. Benoit TalbertMALLAbnormalNONE SEENOhioHealth Doctors Hospital on above:Performed By: #### CBC #### [facility] [address] [place] [address] Dr. Benoit CevallosDovhoEWF6-58Zjxivdcj9-0Fbv [facility] on above:Performed By: #### CBC #### [facility] [address] [place] [address] Dr. Benoit ChristineAkpuoVFD27-52GhucxgnbGNEZ SEENThe [facility] HospitalComment on above: Performed By: #### CBC #### [facility] [address] [place] [address] Dr. Benoit Villarreal B STREP CULTUREon 11-18-2022S. agalactiae Ag Ql (Unsp spec) Culture Observations: NEGATIVE FOR GROUP B STREPTOCOCCUS.NormalThe [facility] HospitalComment on above: Performed By: #### GBSCX #### [facility] [address] [place] [address] Dr. Benoit Oseguera AUTO DIFFon [id number] #0.0 103/ulNormal0.0-0.1The [facility] HospitalComment on above:Performed By: #### CBC #### [facility] [address] [place] [address] Dr. Benoit DiggsBasophils/100 WBC (Bld)0.3 %Normal0.2-2.0[facility] Comment on above:Performed By: #### CBC #### [facility] [address] [place] [address] Dr. Benoit Aleman #0.1 103/ulNormal0.0-0.7The [facility] HospitalComment on above: Performed By: #### CBC #### [facility] [address] [place] [address] Dr. Benoit Krausosinophils/100 WBC (Bld)2.0 %Normal0.9-7.0The [facility] Comment on above:Performed By: #### CBC #### [facility] [address] [place] [address] Dr. Benoit Krausrythrocyte distribution width (RBC) [Ratio]12.7 %Ockhwk00.0-15.0 [facility] HospitalComment on above:Performed By: #### CBC #### [facility] [address] [place] [address] Dr. Benoit DiggsHematocrit (Bld) [Volume fraction]30.6 %Critically low36.0-48.0 [facility] HospitalComment on above:Performed By: #### CBC #### [facility] [address] [address] [address] Benoit DiggsHemoglobin (Bld) [Mass/Vol]10.1 g/dLCritically low12.0-16.0The [facility] HospitalComment on above:Performed By: #### CBC #### [facility] [address] [address] [address] Benoit Amado #0.03 10e3/ulNormal0.00-0.03The [facility] HospitalComment on above:Performed By: #### CBC #### [facility] [address] [address] [address] Benoit Amado %0.5 %Normal0.0-0.5The [facility] HospitalComment on above: Performed By: #### CBC #### [facility] [address] [address] [address] Benoit Dennis #0.6 103/ulCritically low1.2-3.8The [facility] Comment on above:Performed By: #### CBC #### [facility] [address] [address] [address] Benoit Beckmanhocytes/100 WBC (Bld)10.7 %Critically low20.5-60.0The [facility] Hospitalment on above:Performed By: #### CBC #### [facility] [address] [address] [address] Benoit FuentesUAL DIFF REQNONormalThe [facility] HospitalComment on above: Performed By: #### CBC #### [facility] [address] [address] [address] Benoit Lima (RBC) [Entitic mass]28.9 avOlgtiy85.7-34.0The [facility] HospitalComment on above:Performed By: #### CBC #### [facility] [address] [address] [address] Benoit Lima (RBC) [Mass/Vol]33.0 g/sLXlbyif18.9-35.2The [facility] HospitalComment on above:Performed By: #### CBC #### [facility] [address] [address] [address] Benoit LimaV (RBC) [Entitic vol]87.4 aNPgrgrg87.0-99.0The [facility] HospitalComment on above:Performed By: #### CBC #### [facility] [address] [address] [address] Benoit Castellano #0.6 103/ulNormal0.3-0.8The [facility] HospitalComment on above:Performed By: #### CBC #### [facility] [address] [place] [address] Dr. Benoit Funezocytes/100 WBC (Bld)10.9 %Normal1.7-12.0The [facility] Comment on above:Performed By: #### CBC #### [facility] [address] [place] [address] Dr. Benoit Amaya #4.4 103/ulNormal1.4-6.5The [facility] HospitalComment on above:Performed By: #### CBC #### [facility] [address] [place] [address] Dr. Benoit Herrerautrophils/100 WBC (Bld)75.6 %Critically high43.0-75.0The [facility] HospitalComment on above:Performed By: #### CBC #### [facility] [address] [place] [address] Dr. Benoit Pearllet mean volume (Bld) [Entitic vol]10.9 fLNormal9.5-13.5The [facility] HospitalComment on above:Performed By: #### CBC #### [facility] [address] [place] [address] Dr. Benoit DiggsPLT191 103/bgHoplyw949-583Flc [facility] HospitalComment on above: Performed By: #### CBC #### [facility] [address] [place] [address] Dr. Benoit DiggsRBC3.50 106/ulCritically low4.20-5.40The [facility] Hospitalment on above:Performed By: #### CBC #### [facility] [address] [place] [address] Dr. Benoit DiggsWBC5.9 103/ulNormal4.0-11.0The [facility] Hospitalment on above: Performed By: #### CBC #### [facility] [address] [place] [address] Dr. Benoit Lancaster URINEon [id number] URINECulture Observations: HEAVY GROWTH OF MIXED GENITAL RIZWAN. NO POTENTIAL PATHOGENS SEEN.NormalBarberton Citizens HospitalComment on above:Performed By: #### URCX #### [facility] [address] [place] [address] Dr. Benoit Brower URINE PROFILEon 23-03-0201Vdmjfjghr Ql (U)NegativeNormal NEGATIVEBarberton Citizens HospitalComment on above:Performed By: #### HIV12 #### [facility] [address] [place] [address] Dr. Benoit DiggsClronak (U)CLEARNormalCLEARBarberton Citizens HospitalComment on above: Performed By: #### HIV12 #### [facility] [address] [place] [address] Dr. Benoit Loya (U)YELLOWNormalYELLOWFirelands Regional Medical Center South Campusment on above: Performed By: #### HIV12 #### [facility] [address] [place] [address] Dr. Benoit Epperson micrscopic examination will be performed if indicated. NormalBarberton Citizens HospitalComment on above:Performed By: #### HIV12 #### [facility] [address] [place] [address] Dr. Benoit DiggsGlucose Ql (U)NegativeNormalNEGATIVEBarberton Citizens HospitalComment on above:Performed By: #### HIV12 #### [facility] [address] [place] [address] Dr. Benoit DiggsHemoglobin Ql (U)NegativeNormalNEGATIVEDetwiler Memorial Hospital on above:Performed By: #### HIV12 #### [facility] [address] [place] [address] Dr. Benoit Vernon Ql (U)15 mg/dlAbnormalNEGATIVEThe [facility] on above:Performed By: #### HIV12 #### [facility] [address] [place] [address] Dr. Benoit DiggsLEUKOCYTESNegativeNormalNEGATIVEThe [facility] HospitalComment on above:Performed By: #### HIV12 #### [facility] [address] [place] [address] Dr. Benoit Armstrongtrvasyl Ql (U)NegativeNormalNEGATIVEThe [facility] HospitalComment on above:Performed By: #### HIV12 #### [facility] [address] [place] [address] Dr. Benoit DiggspH (U)6.5 [pH]Normal5-9The [facility] HospitalComment on above: Performed By: #### HIV12 #### [facility] [address] [place] [address] Dr. Benoit DiggsSPEC GRAVITY1.453Kuurlo5.005-<=1.025The [facility] HospitalComment on above:Performed By: #### HIV12 #### [facility] [address] [place] [address] Dr. Benoit Wiseman PROTEINTRACENormalNEGATIVE/ TRACEThe [facility] HospitalComment on above:Performed By: #### HIV12 #### [facility] [address] [place] [address] Dr. Benoit Veras MICRO INDINDICATEDNormalThSycamore Medical CenterComment on above: Performed By: #### HIV12 #### [facility] [address] [place] [address] Dr. Benoit Thompsoninogen Qn (U)1.0 {Nadege'U}/dLNormal0.2 - 1.0The [facility] HospitalComment on above:Performed By: #### HIV12 #### [facility] [address] [place] [address] Dr. Benoit COOL AGon [id number] [facility] HospitalComment on above:Result Comment: Negative for Flu A protein angiten. Infection due to Flu A cannot be ruled out. FluA angiten in the sample may be below the detection limit of the test.Performed By: #### HIV12 #### [facility] [address] [place] [address] Dr. Benoit DiggsINFLUBNEGHSKIMBERLY [facility] HospitalComment on above: Result Comment: Negative for Flu B protein antigen. Infection due to Flu B cannot be ruled out. FluB antigen in the sample may be below the detection limit of the test.Performed By: #### HIV12 #### [facility] [address] [place] [address] Dr. Benoit Souza AGNegativeNormalNEGATIVE SEE COMMENTThe [facility] on above:Performed By: #### HIV12 #### [facility] [address] [place] [address] Dr. Benoit Gonzalez AGNegativeNormalNEGATIVE SEE COMMENTThe [facility] HospitalComment on above:Performed By: #### HIV12 #### [facility] [address] [place] [address] Dr. Benoit DiggsINTERNAL CONTROLSWithin Normal LimitsNormalWithin Normal Limits The [facility] HospitalComment on above:Performed By: #### HIV12 #### [facility] [address] [place] [address] Dr. Benoit DiggsPROF CHEM 8 (BAS METB)on 24-69-0222Dlogr gap [Moles/Vol]11.6 mmol/LNormalThe [facility] HospitalComment on above:Performed By: #### CBC #### [facility] [address] [place] [address] Dr. Benoit DiggsCalcium [Mass/Vol]8.2 mg/dLCritically low8.5-10.1The [facility] HospitalComment on above:Performed By: #### CBC #### [facility] [address] [place] [address] Dr. Benoit DiggsChloride [Moles/Vol]100 mmol/ATxrvah39-069LsdBarberton Citizens Hospital Comment on above:Performed By: #### CBC #### [facility] [address] [address] [address] Benoit DiggsCO2 [Moles/Vol]23.9 mmol/OEopyzm58.0-32.0The [facility] Comment on above:Performed By: #### CBC #### [facility] [address] [address] [address] Benoit DiggsCreatinine [Mass/Vol]0.48 mg/dLCritically low0.55-1.02The [facility] HospitalComment on above:Performed By: #### CBC #### [facility] [address] [place] [address] Dr. Laboy ChangEGFR-AF SUDANESE>60Normal>=60The [facility] HospitalComment on above:Performed By: #### CBC #### [facility] [address] [address] [address] Benoit KrausGFR-NON AF SUDANESE>60Normal>=60The [facility] HospitalComment on above:Performed By: #### CBC #### [facility] [address] [place] [address] Dr. Benoit DiggsGlucose [Mass/Vol]94 mg/dWLexcik59-347Rmk [facility] Comment on above:Performed By: #### CBC #### [facility] [address] [address] [address] Benoit DiggsPotassium [Moles/Vol]3.5 mmol/LNormal3.5-5.1The [facility] Comment on above:Performed By: #### CBC #### [facility] [address] [address] [address] Benoit DiggsSodium [Moles/Vol]132 mmol/LCritically aty197-895Rlv [facility] HospitalComment on above:Performed By: #### CBC #### [facility] [address] [address] [address] Benoit DiggsUrea nitrogen [Mass/Vol]6.0 mg/dLCritically low7.0-18.0The [facility] HospitalComment on above:Performed By: #### CBC #### [facility] [address] [address] [address] Benoit DiggsUrea nitrogen/Creatinine [Mass ratio]12.5 mg/mgNormalThe [facility] HospitalComment on above:Performed By: #### CBC #### [facility] [address] [address] [address] Benoit DiggsRESPIRATORY PANEL PLUSon 81-35-6567FxouwwixrkJnd detectedNormal NOT DETECTEDThe [facility] HospitalComment on above:Performed By: #### RSPLUS ####[facility] [address] [address]. Benoit Tierney ParapertusisNot detectedNormalNOT DETECTEDThe [facility] Comment on above:Performed By: #### RSPLUS ####[facility] [address] [place], [place] [address]Dr. Benoit Fuller. PertussisNot detected NormalNOT DETECTEDThe [facility] HospitalComment on above:Performed By: #### RSPLUS ####[facility] [address] [address]Dr. Benoit DiggsChlamydia PneumoniaeNot detectedNormalNOT DETECTEDThe [facility] HospitalComment on above:Performed By: #### RSPLUS ####[facility] [address] [address]Dr. Benoit Diggs Coronavirus 229ENot detectedNormalNOT DETECTEDThe [facility] HospitalComment on above:Performed By: #### RSPLUS ####[facility] [address] [address]Dr. Benoit DiggsCoronavirus UDF2Nyt detectedNormalNOT DETECTEDThe [facility] HospitalComment on above:Performed By: #### RSPLUS ####[facility] [address] [place], [place] [address]Dr. Benoit DiggsCoronavirus XJ07Lvq detectedNormalNOT DETECTEDThe [facility] Comment on above:Performed By: #### RSPLUS ####[facility] [address] [place], [place] [address]Dr. Benoit DigsgCoronavirus WW46Ilh detected NormalNOT DETECTEDThe [facility] HospitalComment on above:Performed By: #### RSPLUS ####[facility] [address] [place], [place] [address]Dr. Benoit DiggsInfluenza A H1 2009DetectedAbnormalNOT DETECTEDThe [facility] HospitalComment on above:Performed By: #### RSPLUS ####[facility] [address] [place], [place] [address]Dr. Benoit DiggsInfluenza A H3 Not detectedNormalNOT DETECTEDThe [facility] HospitalComment on above:Performed By: #### RSPLUS ####[facility] [address] [place], [place] [address]Dr. Benoit DiggsInfluenza BNot detectedNormalNOT DETECTEDThe [facility] HospitalComment on above:Performed By: #### RSPLUS ####[facility] [address] [place], [place] [address]Dr. Benoit Diggs MetapneumovirusNot detectedNormalNOT DETECTEDThe [facility] HospitalComment on above:Performed By: #### RSPLUS ####[facility] [address] [place], [place] [address]Dr. Benoit DiggsMycoplas. PneumoniaeNot detectedNormal NOT DETECTEDThe [facility] HospitalComment on above:Performed By: #### RSPLUS ####[facility] C[address] [place], [place] [address]Dr. Karylan ChangParainfluenza 1Not detectedNormalNOT DETECTEDThe [facility] Comment on above:Performed By: #### RSPLUS ####[facility] [address] [place], [place] [address]Dr. Yilan ChangParainfluenza 2Not detected NormalNOT DETECTEDThe [facility] HospitalComment on above:Performed By: #### RSPLUS ####[facility] [address]nsbed[address] [place], [place] [address]Dr. Yilan ChangParainfluenza 3Not detectedNormalNOT DETECTEDThe [facility] HospitalComment on above:Performed By: #### RSPLUS ####[facility] [address] [place], [place] [address]Dr. Benoit DiggsParainfluenza 4Not detectedNormalNOT DETECTEDThe [facility] on above:Performed By: #### RSPLUS ####[facility] Uuvmfkb[address] [place], [place] [address]Dr. Benoit ChangRhino/EnterovirusNot detectedNormalNOT DETECTEDThe [facility] HospitalCommymichigan medical center [facility] on above:Performed By: #### RSPLUS ####[facility] [address]xutehi[address] [place], [place] [address]Dr. Benoit DiggsJuanis Header 1RESPIRATORY PANEL: VIRUSESNormalThe [facility] HospitalComment on above: Performed By: #### RSPLUS ####[facility] [address] [place], [place] [address]Dr. Benoit Licea Header 2RESPIRATORY PANEL: BACTERIA NormalThe [facility] HospitalCommymichigan medical center [facility] on above:Performed By: #### RSPLUS ####[facility] [address]fug[address] [place], [place] [address]Dr. Benoit DiggsRSVNot detectedNormalNOT DETECTEDThe [facility] on above:Performed By: #### RSPLUS ####[facility] [address] [place], [place] [address]Dr. Benoit Farias-CoV-2 (COVID-19) RNA RANDOLPH+probe Ql (Unsp spec)Not detectedNormalNOT DETECTEDThe [facility] on above: Performed By: #### RSPLUS ####[facility] [address] [place], [place] [address]Dr. Benoit Vee Comment: When diagnostic testing is [...] for this test is supported by the [place] of Health and Human Service's declaration that [...] longer be used).Performed By: #### HIV12 #### [facility] [address] [place] [address] Dr. Benoit TURCIOSon [id number]dioqyCQDP SEEN The [facility] on above:Performed By: #### HIV12 #### [facility] [address] [place] [address] Dr. Benoit Loco identified Cx Nom (U)INDICATEDNoalThSt. Anthony's Hospital on above:Performed By: #### HIV12 #### [facility] [address] [place] [address] Dr. Benoit Norton SEENNormalNONE SEENOhioHealth Doctors Hospital on above:Performed By: #### HIV12 #### [facility] [address] [place] [address] Dr. Benoit Beckettystals LM Nom (Urine sed)NONE SEENNormalNONE SEENOhioHealth Doctors Hospital on above:Performed By: #### HIV12 #### [facility] [address] [place] [address] Dr. Benoit Krauspithelial cells LM Ql (Urine sed)MODERATEAbnormalNONE SEEN /RARE The [facility] HospitalCommymichigan medical center [place] on above:Performed By: #### HIV12 #### [facility] [address] [place] [address] Dr. Benoit HessE SEENNormalNONE SEENOhioHealth Doctors Hospital on above:Performed By: #### HIV12 #### [facility] [address] [place] [address] Dr. Benoit JensenPypdcHGZ8-5Qgauvo7-8Wgf Fairfield HospitalComment on above:Performed By: #### HIV12 #### [facility] [address] [address] [address] Benoit DiggsWBC5-10AbnormalNONE SEENThe [facility] HospitalComment on above: Performed By: #### HIV12 #### [facility] [address] [address] [address] Benoit Oseguera AUTO DIFFon [id number] #0.1 103/ulNormal0.0-0.1The Genesis Hospitalment on above:Performed By: #### CBC #### [facility] [address] [place] [address] Dr. Benoit DiggsBasophils/100 WBC (Bld)0.5 %Normal0.2-2.0[facility] Comment on above:Performed By: #### CBC #### [facility] [address] [place] [address] Dr. Benoit Aleman #0.4 103/ulNormal0.0-0.7The [facility] on above: Performed By: #### CBC #### [facility] [address] [place] [address] Dr. Benoit Krausosinophils/100 WBC (Bld)4.1 %Normal0.9-7.0[facility] Comment on above:Performed By: #### CBC #### [facility] [address] [place] [address] Dr. Benoit Krausrythrocyte distribution width (RBC) [Ratio]12.8 %Jkksrk24.0-15.0 [facility] HospitalComment on above:Performed By: #### CBC #### [facility] [address] [place] [address] Dr. Benoit DiggsHematocrit (Bld) [Volume fraction]31.4 %Critically low36.0-48.0 [facility] HospitalCommymichigan medical center [place] on above:Performed By: #### CBC #### [facility] [address] [place] [address] Dr. Benoit DiggsHemoglobin (Bld) [Mass/Vol]10.5 g/dLCritically low12.0-16.0The [facility] HospitalComment on above:Performed By: #### CBC #### [facility] [address] [place] [address] Dr. Benoit Amado #0.05 10e3/ulCritically high0.00-0.03The [facility] Comment on above:Performed By: #### CBC #### [facility] [address] [place] [address] Dr. Benoit Amado %0.5 %Normal0.0-0.5The [facility] HospitalComment on above: Performed By: #### CBC #### [facility] [address] [place] [address] Dr. Benoit Dennis #2.2 103/ulNormal1.2-3.8The [facility] HospitalComment on above:Performed By: #### CBC #### [facility] [address] [place] [address] Dr. Benoit Beckmanhocytes/100 WBC (Bld)21.9 %Wqyvrg24.5-60.0The [facility] HospitalComment on above:Performed By: #### CBC #### [facility] [address] [place] [address] Dr. Benoit Real DIFF REQNONormalThe [facility] HospitalComment on above: Performed By: #### CBC #### [facility] [address] [place] [address] Dr. Benoit Fisher (RBC) [Entitic mass]29.7 jrPblohy98.7-34.0The [facility] HospitalComment on above:Performed By: #### CBC #### [facility] [address] [place] [address] Dr. Benoit Lima (RBC) [Mass/Vol]33.4 g/iLLtpnfl13.9-35.2The [facility] HospitalComment on above:Performed By: #### CBC #### [facility] [address] [place] [address] Dr. Yilan ChangMCV (RBC) [Entitic vol]89.0 jNShkwew87.0-99.0The [facility] HospitalComment on above:Performed By: #### CBC #### [facility] [address] [place] [address] Dr. Benoit Castellano #0.6 103/ulNormal0.3-0.8The [facility] HospitalComment on above:Performed By: #### CBC #### [facility] [address] [place] [address] Dr. Benoit Funezocytes/100 WBC (Bld)5.7 %Normal1.7-12.0The [facility] Comment on above:Performed By: #### CBC #### [facility] [address] [place] [address] Dr. Benoit Amaya #6.8 103/ulCritically high1.4-6.5The [facility] Comment on above:Performed By: #### CBC #### [facility] [address] [place] [address] Dr. Benoit Herrerautrophils/100 WBC (Bld)67.3 %Nfnsbq55.0-75.0The [facility] HospitalComment on above:Performed By: #### CBC #### [facility] [address] [place] [address] Dr. Benoit Pearllet mean volume (Bld) [Entitic vol]11.0 fLNormal9.5-13.5The [facility] HospitalComment on above:Performed By: #### CBC #### [facility] [address] [place] [address] Dr. Benoit RaderT215 103/xiUgcvpl804-663Rfp [facility] HospitalComment on above: Performed By: #### CBC #### [facility] [address] [place] [address] Dr. Benoit DiggsRBC3.53 106/ulCritically low4.20-5.40The [facility] HospitalComment on above:Performed By: #### CBC #### [facility] [address] [place] [address] Dr. Benoit DiggsWBC10.2 103/ulNormal4.0-11.0[facility] HospitalComment on above:Performed By: #### CBC #### [facility] [address] [place] [address] Dr. Benoit DiggsGLUCOSE - 1HRon 65-86-7881Fucaswy [Mass/Vol]116 mg/dLCritically cngc63-117RjfBarberton Citizens HospitalComment on above:Performed By: #### GLU1HR ####[facility] [address] [address]. Benoit Mcconnell ACOG PANEL 2: 21 to 29on 08-13-2022..NormalBarberton Citizens Hospital Comment on above:Performed By: #### CBC #### [facility] [address] [place] [address] Dr. Benoit Flores Gdln ACOG Nwezfnw70-11UwoksdXqiOhioHealth Doctors HospitalComment on above:Performed By: #### CBC #### [facility] [address] [place] [address] Dr. Benoit DiggsDIAGNOSIS:CommentWestern Reserve HospitalCommymichigan medical center [place] on above: Result Comment: NEGATIVE FOR INTRAEPITHELIAL LESION OR MALIGNANCY.Performed By: #### CBC #### [facility] [address] [place] [address] Dr. Benoit DiggsMethodology:CommentNoOhioHealth Doctors HospitalComment on above: Result Comment: This liquid based ThinPrep(R) pap test was screened with the use of an image guided system.Performed By: #### CBC #### [facility] [address] [place] [address] Dr. Benoit DiggsNote:CommentAvita Health System on above:Result Comment: The Pap smear is a screening test designed to aid in the detection of premalignant and malignant conditions of the uterine cervix. It is not a diagnostic procedure and should not be used as the sole means of detecting cervical cancer. Both false-positive and false-negative reports do occur. .Performed By: #### CBC #### [facility] [address] [place] [address] Dr. Benoit DiggsPerformed by:CommentAvita Health System on above: Result Comment: Cynthia Smith, Community Development Director (ASCP)Performed By: #### CBC #### [facility] [address] [place] [address] Dr. Benoit DiggsReflex Criteria:CommentAvita Health System on above:Result Comment: The HPV DNA reflex criteria were not met with this specimen result therefore, no HPV testing was performed. .Performed By: #### CBC #### [facility] [address] [place] [address] Dr. Benoit DiggsSpecimen adequacy:CommentAvita Health System on above:Result Comment: Satisfactory for evaluation. No endocervical component is identified.Performed By: #### CBC #### [facility] [address] [place] [address] Dr. Benoit DiggsCHLAMYDIA/GONOCOCCUS RANDOLPH (SWAB/URINE/PAPon 98-49-5879Roowjkrzb trachomatis, NAANegativeNormalNegativeThe [facility] HospitalCommymichigan medical center [place] on above: Performed By: #### HIV12 #### [facility] [address] [place] [address] Dr. Benoit DiggsNeisseria gonorrhoeae, NAANegativeNormalNegativeOhioHealth Doctors Hospital on above:Performed By: #### HIV12 #### [facility] [address] [place] [address] Dr. Benoit Hampton PREG INCOMPLETE ANATOMYon [id number] PREG INCOMPLETE ANATOMY EXAMINATION: US PREG INCOMPLETE [...] Electronically authenticated by: MYLENE SULLIVAN Date: 2022-08-07 20:09[facility] PREG ANATOMY SINGLEon [id number] PREG ANATOMY SINGLE EXAMINATION: US PREG ANATOMY [...] Electronically authenticated by: AISHWARYA MAGALLON Date: 2022-07-25 17:11NoOhioHealth Doctors HospitalAFP MATERNAL FOR SPINA BIFIDAon 53-89-7115KEV MoM0.55NoOhioHealth Doctors HospitalComment on above:Performed By: #### HIV12 #### [facility] [address] [place] [address] Dr. Benoit Chavarria Value20.0 ng/mLNMercy Health Springfield Regional Medical CenterComment on above: Performed By: #### HIV12 #### [facility] [address] [place] [address] Dr. Benoit Chavarria, Serum for Spina BifidaReGreene Memorial Hospital Comment on above:Performed By: #### HIV12 #### [facility] [address] [place] [address] Dr. Benoit PricementSt. Charles HospitalComment on above:Result Comment: Caitlin Palafox, Ph.D., [facility] Director . References: Available Upon Request. . Multiples Of Median Cutoffs For AFP Elevations Caro 2.5 Black 2.8 IDD 2.0 Twins 4.5 Abbreviation Definitions IDD - Insulin Dep Diabetes OSBR - Open Spina Bifida Risk . For further inquiries contact [employer] [facility] at [phone]. . This test was developed and its performance characteristics determined by [employer] It has not been cleared or approved by the Food and Drug Administration.Performed By: #### HIV12 #### [facility] [address] [place] [address] Dr. Benoit Rodriguez Age Collection Date18.1 weeksWestern [facility] Comment on above:Performed By: #### HIV12 #### [facility] [address] [place] [address] Dr. Benoit Gillis, Age Based onUltFirelands Regional Medical Center South CampusComment on above:Result Comment: 13:1 on 06/06/2022 Recalculations are not recommended when gestational dating by LMP and ultrasound are within 10 days.Performed By: #### HIV12 #### [facility] [address] [place] [address] Dr. Benoit DiggsInsulin Dep DiabetesNoNMercy Health Springfield Regional Medical CenterComment on above:Performed By: #### HIV12 #### [facility] [address] [place] [address] Dr. Benoit DiggsInterpretationSt. Charles HospitalComment on above: Result Comment: Interpretation: Screen [...] Customer Services to discuss available options. The [employer] recommends amniocentesis be offered to women age 35 and older.Performed By: #### HIV12 #### [facility] [address] [place] [address] Dr. Benoit Vornajoo Age [age] yrWestern Reserve HospitalComment on above:Performed By: #### HIV12 #### [facility] [address] [place] [address] Dr. Benoit Scottltiplmally GestationNoNMercy Health Springfield Regional Medical CenterComment on above: Performed By: #### HIV12 #### [facility] [address] [place] [address] Dr. Benoit DiggsOSBR Risk 1 [id number] Reserve HospitalComment on above: Performed By: #### HIV12 #### [facility] [address] [place] [address] Dr. Benoit Stockton.NormalBarberton Citizens HospitalComment on above:Performed By: #### HIV12 #### [facility] [address] [place] [address] Dr. Benoit MorrisCaucasianNMercy Health Springfield Regional Medical CenterComment on above: Performed By: #### HIV12 #### [facility] [address] [place] [address] Dr. Benoit DiggsTest Results:NegativeWestern Reserve HospitalComment on above: Performed By: #### HIV12 #### [facility] [address] [place] [address] Dr. Benoit Ramirez B SURFACE ANTIGEN SCREENon 83-56-1559UWuVw ScreenNegative NormalNegativeOhioHealth Doctors Hospital on above:Performed By: #### HIV12 #### [facility] [address] [place] [address] Dr. Benoit Watt C VIRUS AB W/ REFLEX QUANTon 31-59-4858VEH AB<0.1Normal 0.0-0.9The [facility] on above:Performed By: #### HIV12 #### [facility] [address] [place] [address] Dr. Benoit DiggsInterpretation:CommentNormalThe [facility] on above:Result Comment: Negative Not infected with HCV, unless recent infection is suspected or other evidence exists to indicate HCV infection.Performed By: #### HIV12 #### [facility] [address] [place] [address] Dr. Benoit DiggsHIV 1 AND 2 WITH REFLEXon 19-10-4514BCJ Screen 4th Generation wRfxNon-ReactiveNormalNon ReactiveThe [facility] on above:Result Comment: HIV Negative HIV-1/HIV-2 antibodies and HIV-1 p24 antigen were NOT detected. There is no laboratory evidence of HIV infection.Performed By: #### HIV12 #### [address] [address] [address] Benoit DiggsRPR QUANTon 04-99-8631Nqqcw Plasma Reagin, QuantNon-Reactive NormalNonRea<1:1The [facility] on above:Result Comment: Please Note: This test does not meet current guidelines for screening and diagnosis of syphilis. This test is intended for following treatment response in patients being treated for syphilis infection. To screen for syphilis infection, a reflex cascade that includes both RPR and a treponema-specific assay should be utilized, such as Treponema pallidum (Syphilis) Screening [place] (678037) or Rapid Plasma Reagin (RPR) Test With Reflex to Quantitative RPR and Confirmatory Treponema pallidum Antibodies (622070).Performed By: #### HIV12 #### [address] [address] [address] Benoit DiggsRUBELLA AB IGGon 77-84-3918Hvlefcr Antibodies, IgG3.22 index NormalImmune >0.99The [facility] on above:Result Comment: Non- immune <0.90 Equivocal 0.90 - 0.99 Immune >0.99Performed By: #### CBC #### [facility] [address] [address] [address] Benoit Hampton PREG <14 WKSon 73-27-2928EA PREG <14 WKSEXAMINATION: US PREG <14 WKS [...] Electronically authenticated by: MYLENE SULLIVAN Date: 2022-06-06 22:25NoSal[facility] AUTO DIFFon [id number] #0.1 103/ulNormal0.0-0.1[facility] HospitalComment on above:Performed By: #### CBC #### [facility] [address] [place] [address] Dr. Benoit Taborsophils/100 WBC (Bld)0.6 %Normal0.2-2.0[facility] Comment on above:Performed By: #### CBC #### [facility] [address] [place] [address] Dr. Benoit Aleman #0.3 103/ulNormal0.0-0.7The [facility] HospitalComment on above: Performed By: #### CBC #### [facility] [address] [place] [address] Dr. Benoit Krausosinophils/100 WBC (Bld)4.1 %Normal0.9-7.0[facility] Comment on above:Performed By: #### CBC #### [facility] [address] [place] [address] Dr. Benoit Krausrythrocyte distribution width (RBC) [Ratio]13.9 %Sqlmxv86.0-15.0 The [facility] HospitalComment on above:Performed By: #### CBC #### [facility] [address] [place] [address] Dr. Benoit DiggsHematocrit (Bld) [Volume fraction]36.0 %Vesbln93.0-48.0The [facility] HospitalComment on above:Performed By: #### CBC #### [facility] [address] [place] [address] Dr. Benoit DiggsHemoglobin (Bld) [Mass/Vol]12.0 g/xJClszas76.0-16.0The [facility]field HospitalComment on above:Performed By: #### CBC #### [facility] [address] [place] [address] Dr. Benoit Amado #0.03 10e3/ulNormal0.00-0.03The [facility] HospitalComment on above:Performed By: #### CBC #### [facility] [address] [place] [address] Dr. Benoit Amado %0.4 %Normal0.0-0.5The [facility] HospitalComment on above: Performed By: #### CBC #### [facility] [address] [place] [address] Dr. Benoit Dennis #2.7 103/ulNormal1.2-3.8The [facility] HospitalComment on above:Performed By: #### CBC #### [facility] [address] [place] [address] Dr. Benoit Pantojamphocytes/100 WBC (Bld)33.2 %Bfhbwe09.5-60.0The [facility] HospitalComment on above:Performed By: #### CBC #### [facility] [address] [place] [address] Dr. Benoit DiggsMANUAL DIFF REQNONormalThe [facility] HospitalComment on above: Performed By: #### CBC #### [facility] [address] [place] [address] Dr. Benoit Fisher (RBC) [Entitic mass]29.4 dkKsobob43.7-34.0The [facility] HospitalComment on above:Performed By: #### CBC #### [facility] [address] [address] [address] Benoit LimaHC (RBC) [Mass/Vol]33.3 g/uSZbsapk17.9-35.2The [facility] HospitalComment on above:Performed By: #### CBC #### [facility] [address] [address] [address] Benoit LimaV (RBC) [Entitic vol]88.2 oGPqqzfu95.0-99.0The [facility]field HospitalComment on above:Performed By: #### CBC #### [facility] [address] [place] [address] Dr. Benoit Castellano #0.5 103/ulNormal0.3-0.8The [facility] HospitalComment on above:Performed By: #### CBC #### [facility] [address] [place] [address] Dr. Benoit Funezocytes/100 WBC (Bld)6.6 %Normal1.7-12.0The [facility] Comment on above:Performed By: #### CBC #### [facility] [address] [address] [address] Benoit Amaya #4.4 103/ulNormal1.4-6.5The [facility] HospitalComment on above:Performed By: #### CBC #### [facility] [address] [place] [address] Dr. Benoit Herrerautrophils/100 WBC (Bld)55.1 %Iliwxi32.0-75.0The [facility] HospitalComment on above:Performed By: #### CBC #### [facility] [address] [address] [address] Benoit Pearllet mean volume (Bld) [Entitic vol]11.0 fLNormal9.5-13.5The [facility] HospitalComment on above:Performed By: #### CBC #### [facility] [address] [address] [address] Benoit DiggsPLT225 103/xhVjsmjh864-487Wwc Genesis Hospitalment on above: Performed By: #### CBC #### [facility] [address] [address] [address] Benoit DiggsRBC4.08 106/ulCritically low4.20-5.40The Genesis Hospitalment on above:Performed By: #### CBC #### [facility] [address] [address] [address] Benoit DiggsWBC8.1 103/ulNormal4.0-11.0The Genesis Hospitalment on above: Performed By: #### CBC #### [facility] [address] [address] [address] Benoit DiggsCULTURE URINEon [id number] URINECulture Observations: MODERATE GROWTH OF MIXED GENITAL RIZWAN. NO POTENTIAL PATHOGENS SEEN.NormalThe Genesis Hospitalment on above:Performed By: #### URCX ####[facility] [address] [address]Dr. Benoit Diggs GLYCOHEMOGLOBIN A1Con 42-25-5821QDG RECOMMENDATIONSEE BELOWNoOhioHealth Doctors HospitalCommymichigan medical center [facility] on above:Result Comment: ADA RECOMMENDED LIMIT 4.0 - 6.0 ADA THERAPEUTIC TARGET < 7.0 ACTION SUGGESTED > 7.0Performed By: #### CBC #### [facility] [address] [place] [address] Dr. Benoit DiggsGlucose [Mass/Vol]105 mg/dLNoSelect Medical Specialty Hospital [facility] on above:Performed By: #### CBC #### [facility] [address] [place] [address] Dr. Benoit DiggsHbA1c (Bld) [Mass fraction]5.3 %Normal4.5-6.2The [facility] on above:Performed By: #### CBC #### [facility] [address] [address] [address] Benoit Flowers BOX TEST PT SEND OUTon [id number] TO REF LAB06/06/2022 NormalThe [facility] on above:Performed By: #### HIV12 #### [facility] [address] [address] [address] Benoit DiggsTYPE AND SCREENon 33-79-8999HQWP AND SCREENNegativeWestern Reserve HospitalComment on above:Performed By: #### TNS #### [facility] [address] [place] [address] Dr. Benoit iDggsPREG QUANT HCGon 57-52-4340DHJ DVZUW20363 mIU/mLNormalBarberton Citizens HospitalComment on above:Performed By: #### CBC #### [facility] [address] [address] [address] Benoit DiggsHCG RANGESEE BELOWWestern Reserve HospitalComment on above: Result Comment: 5-50 0-1 WEEK 40-300 1-2 WEEKS 100-1,000 2-3 WEEKS 500-6,000 3-4 WEEKS 5,000-200,000 1-2 MONTHS 10,000-100,000 2-3 MONTHS 3,000-50,000 2ND TRIMESTER 1,000-50,000 3RD TRIMESTERPerformed By: #### CBC #### [facility] [address] [place] [address] Dr. Benoit Diggs Vital Signs Date TimeVital SignValuePerforming ZhbqyvlnfTzzkauaw88-47-8859 10:55-0500Body mass index (BMI) [Ratio]53.47 kg/m2Gia LYNN Work Phone: [facility] SystemSyieusyquo47-22-7295 10:55-0500Body .37 kgGia LYNN Work Phone: [phone] SystemDsokizmjmo64-35-5675 10:55-0500Diastolic blood bbwwkave38 mm[Hg]Gia LYNN Work Phone: [phone] SystemXkucyghjld44-87-7696 10:55-0500Systolic blood johnhxmr090 mm[Hg]Gia LYNN Work Phone: [facility] SystemNespjkhqqf18-40-6846 13:55-0400Body mass index (BMI) [Ratio]53.12 kg/u4ZunvzJefferson Howard DO Work Phone: [facility] SystemKjtoizdufq88-92-0421 13:55-0400Body nrprok729.52 kgCorey Anita DO Work Phone: [phone] [place], [place] [address]Zplsriesyt85-31-0948 13:55-0400Diastolic blood xftccers29 mm[Hg]Jefferson Anita DO Work Phone: 1(574)803-[address] [place], [place] [address]Syesbiluod22-40-9448 13:55-0400Systolic blood pinilmcl854 mm[Hg]Jefferson Anita DO Work Phone: 1([phone] [place], [place] [address]Vtqixqfpqn01-27-4345 14:07-0400Body mass index (BMI) [Ratio]54 kg/m2Amy Vamsi LYNN Work Phone: [phone] [place], [place] [address]Oczmgftgpl24-29-0674 14:07-0400Body dosegr123.64 kgAmy Vamsi LYNN Work Phone: [phone] [place], [place] [address]Bpslehynnz02-14-7386 14:07-0400Diastolic blood ifuhsijv10 mm[Hg]Gia LYNN Work Phone: [phone] [place], [place] [address]Hkdcyizdjm93-75-4658 14:07-0400Systolic blood kqtcufkj423 mm[Hg]Gia LYNN Work Phone: 1(201)367-[address] [place], [place] [address]Cyvitkvvbz69-33-3629 13:59-0400Body mass index (BMI) [Ratio]53.17 kg/s3Bqyxj Anita DO Work Phone: 1(478)208-[address] [place], [place] [address]Jjmsudjyhw66-74-3987 13:59-0400Body xypwzt403.64 kgCorey Anita DO Work Phone: [phone] [place], [place] [address]Utgmzktyuh38-99-4701 13:59-0400Diastolic blood dnrdsuqj78 mm[Hg]Jefferson Anita DO Work Phone: 1(433)071-[address] [place] [address]-19-2025 13:59-0400Systolic blood flwknwoa334 mm[Hg]Jefferson Anita DO Work Phone: 1(745)633-[address] [place], [place] [address]Sdjcvpcvmq79-59-4077 14:05-0400Body mass index (BMI) [Ratio]53.51 kg/a8RhchzBronxCare [facility]07-17-2025 14:05-0400Body weight 128.46 kgBron[facility]07-17-2025 14:05-0400Diastolic blood mm[Hg][facility]07-17-2025 14:05-0400Systolic blood utirmuvk490 mm[Hg][facility]04-16-2025 10:44-0400Body mass index (BMI) [Ratio] 52.91 kg/w0Etwtl Anita DO Work Phone: 1(206)278-[address] [place], [place] [address]Jsluhorfzv27-68-9344 10:44-0400Body puakbv462.01 kgCorey Anita DO Work Phone: 1(092)614-[address] [place] [address]-16-2025 10:44-0400Diastolic blood mqdnxjha42 mm[Hg]Jefferson Anita DO Work Phone: 1(446)785-[address] [place] [address]-16-2025 10:44-0400Systolic blood xduosrpk107 mm[Hg]Jefferson Anita DO Work Phone: 1(316)932-[address] [place], [place] [address]Xkyxxcbdcu45-97-3938 13:48-0400Body mass index (BMI) [Ratio]52.93 kg/x2Tgxrw Anita DO Work Phone: 1(797)967-[address] [place], [place] [address]Gbrsjpwjvw80-02-9946 13:48-0400Body .06 kgCorey Anita DO Work Phone: [phone])130-[address] [place], [place] [address]Rbcgrzjwdi45-02-9515 13:48-0400Diastolic blood fgyanrgd59 mm[Hg]Jefferson Anita DO Work Phone: 1(722)342-[address] [place] [address]-31-2025 13:48-0400Systolic blood mm[Hg]Jefferson Anita DO Work Phone: 1(807)889-[address] [place] [address]-05-2025 10:54-0500Body mass index (BMI) [Ratio]52.93 kg/m2Gia LYNN Work Phone: 1(920)639-[address] [place] [address]-05-2025 10:54-0500Body wznyvz853.06 kgGia LYNN Work Phone: 1(043)153-[facility] [address]Yewahvficc67-39-9550 10:54-0500Diastolic blood mm[Hg]Gia LYNN Work Phone: [facility] SystemXurecuskhj08-16-7277 10:54-0500Systolic blood floqmupj200 mm[Hg]Gia LYNN Work Phone: [facility] SystemFylrwekmiu76-17-5347 12:56-0500Body mass index (BMI) [Ratio]53.09 kg/b7Xmtga Anita DO Work Phone: 1(475)052-[address] [place], [place] [address]Totmknkhct76-78-9795 12:56-0500Body .46 kgCorey Anita DO Work Phone: 1(556)916-[facility] SystemDkkfutxgdy74-46-0241 12:56-0500Diastolic blood mm[Hg]Jefferson Anita DO Work Phone: 1(626)047-[address] [place], [place] [address]Rdkcnkcaus76-07-7970 12:56-0500Systolic blood rvocxgvh434 mm[Hg]Jefferson Anita DO Work Phone: 1([phone] [place], [place] [address]Geprxkmcgh88-46-8150 08:42-0500Body mass index (BMI) [Ratio]53.55 kg/t2Kmsvw Anita DO Work Phone: 1([phone])137-[address] [place], [place] [address]Eotfafvxwz15-62-9417 08:42-0500Body nvpoec242.55 kgCorey Anita DO Work Phone: 1(518)302-[facility] SystemUonjiipfnh24-35-7560 14:06-0500Diastolic blood stlcomyo49 mm[Hg]Manuel Noel MD Work Phone: [facility]11-19-2024 14:06-0500 Heart rate77 /minManuel Noel MD Work Phone: [facility]11-19-2024 14:06-0500 Respiratory rate18 /minManuel Noel MD Work Phone: [facility]11-19-2024 14:06-0500 SaO2% (BldA) [Mass fraction]98 %Manuel Noel MD Work Phone: [facility]11-19-2024 14:06-0500 Systolic blood bgjocorv094 mm[Hg]Manuel Noel MD Work Phone: 1(506)204-[address] [place], [place] 1374811-19-2024 12:39-0500 Body iqvohm803.94 cmManuel Noel MD Work Phone: [phone]11-19-2024 12:39-0500 Body ydalyl184 kgManuel Noel MD Work Phone: 1([phone]11-05-2024 09:31-0500 Body ehaaui689.94 cmManuel Noel MD Work Phone: 1([phone])[address]11-05-2024 09:31-0500 Body mass index (BMI) [Ratio]53.4 kg/m2Manuel Noel MD Work Phone: 1([phone])[address]11-05-2024 09:31-0500 Body iyxrgd299.16 kgManuel Noel MD Work Phone: [phone]09-28-2022 02:06-0400 Body aftywi531.6992 kgDR DOCTOR [facility] HospitalComment on above: Performed By: #### HIV12 #### [facility] [address] [address] [address] Benoit Diggs Encounters Encounter DateEncounter TypeCare ProviderFacilityStart: 08-31-2025 End: 73-96-6897Emgjob Epi LYNN Work Phone: [facility]YNStart: 08-31-2025 End: 11-20-2797Xavnlx Epi LYNN Work Phone: [facility] [facility]BGYNStart: 08-31-2025 End: 93-34-8913Hdggix outpatient visit 15 minutesGia LYNN Work Phone: NOZN Emma OBGYNComment on above:Second trimester ([facility]); 23 weeks gestation of ([facility]); Diabetes mellitus screeningStart: 08-31-2025 End: 84-68-0681veezjujmjdRXB RAMLIBANNot AvailableStart: 13-64-5592Ohf-patient / Non-visit([place]) Bello Marks DO-[facility] [employer] Work Phone: Start: 08-29-2025 End: 79-90-6811qxtlrnrazvJwiz E Hay ([facility])-LAB Path Spec Emma HospStart: 08-29-2025 End: 61-94-2333Jitidrdx ReferredBello Marks ([facility]) DO-[facility] Path [facility] Start: 08-23-2025 End: 92-82-4041eqovcpjksfAUPHBPYJOhioHealth O'Bleness Hospitaltart: 08-23-2025 End: 91-67-3599Wtxibxfuy department patient visitMARSac-[facility] HospitalStart: 08-10-2025 End: 68-90-5731noqjpcrmcsGQJYA FAZIONot AvailableStart: 08-02-2025 End: 62-49-1432Tluaku flowsheetCorey Anita DO Work Phone: [facility]BGYNStart: 08-02-2025 End: 89-67-2104Cnlmjh flowsheetCorey Anita DO Work Phone: [facility]YNStart: 08-02-2025 End: 20-55-9622Znfcwzlbr Result EncounterCorey Anita DO Work Phone: NOBR External Department UnsolicitedStart: 08-02-2025 End: 49-36-1916Pnnpkw outpatient visit 15 minutesCorey Anita DO Work Phone: [facility] OBGYNComment on above:Second trimester ([facility]); 19 weeks gestation of ([facility]); Screening, , for anatomic survey ([facility]); LGSIL of cervix of undetermined significanceStart: 08-02-2025 End: 83-97-7278adryziuwzpTYOPR FAZIONot AvailableStart: 07-25-2025 End: 31-67-3132Cxpanjqxc Result EncounterAmy Vamsi PA Work Phone: no External Department UnsolicitedStart: 07-25-2025 End: 45-29-2172Ogxscuzym Result EncounterGia LYNN Work Phone: [facility]OM[facility] External Department UnsolicitedStart: 07-05-2025 End: 57-98-0937Xmgpgo flowsheetGia LYNN Work Phone: NO [facility] OBGYNStart: 07-05-2025 End: 33-53-2603Jwracz flowsheetGia LYNN Work Phone: NO [facility] OBGYNStart: 07-05-2025 End: 44-62-4559Yujksyyk Result EncounterGia LYNN Work Phone: no External Department UnsolicitedStart: 07-05-2025 End: 05-92-9148Kvnuqr outpatient visit 15 minutesAmy Vamsi LYNN Work Phone: NO Emma OBGYNComment on above:15 weeks gestation of ([facility]); Second trimester ([facility]); Exposure to STD; Vaginal discharge; NauseaStart: 07-05-2025 End: 63-40-4642nykchhicagIIT RAMEYNot AvailableStart: 06-07-2025 End: 09-66-4427Dfxehi flowsheetCorey Anita DO Work Phone: [facility] [facility]BGYNStart: 06-07-2025 End: 08-57-4671Jtsroh flowsheetCorey Anita DO Work Phone: NO [facility] OBGYNStart: 06-07-2025 End: 65-13-2827Yqheqpbfn Result EncounterCorey Anita DO Work Phone: noms External Department UnsolicitedStart: 06-07-2025 End: 43-12-2062Tnevdj outpatient visit 15 minutesCorey Anita DO Work Phone: noms Emma OBGYNComment on above:First trimester ([facility]); 11 weeks gestation of ([facility]); Right ovarian cyst; Nausea; PCOS (polycystic ovarian syndrome)Start: 06-07-2025 End: 14-18-9007jtpkfeckqkDDSRF FAZIONot AvailableStart: 05-24-2025 End: 89-97-3734Nmfwkbrsm Result EncounterCorey Anita DO Work Phone: noms External Department UnsolicitedStart: 05-24-2025 End: 66-73-8142Gnzfnwqzj Result EncounterCorey Anita DO Work Phone: noms External Department UnsolicitedStart: 05-05-2025 End: 72-99-7015Kcncev outpatient visit 5 minutesFazio Nurse Noms Bcp ObNOMS BCP OBComment on above:GA: 2j2jHxjrm: 05-05-2025 End: 36-97-1746vddudampacHDHLT FAZIONot AvailableStart: 04-14-2025 End: 14-27-4225Zhhteiale department patient visitCleveland Clinic Medina Hospitaltart: 02-09-2025 End: 46-42-7108Ekwdlxivd Result EncounterGeneric External Data ProviderNOMS External Department UnsolicitedStart: 02-09-2025 End: 52-87-0255Yfndmgazf Result EncounterGeneric External Data ProviderNOMS External Department UnsolicitedStart: 02-02-2025 End: 31-46-9171Rqzsxf flowsheetCorey Anita DO Work Phone: [facility]OM[facility] BCP OBStart: 02-02-2025 End: 40-17-6171Jrczmo flowsheetCorey Anita DO Work Phone: [facility] BCP OBStart: 02-02-2025 End: 12-92-4868Qkzvqc outpatient visit 15 minutesCorey Anita DO Work Phone: [facility] BCP OBComment on above:Encounter to discuss test results; Elevated TSHStart: 02-02-2025 End: 97-88-0311nsfjosigksTDSGG FAZIONot AvailableStart: 01-17-2025 End: 37-98-1781Vezersp encounter procedureCorey Anita DO Work Phone: noms BCP OBComment on above:LGSIL of cervix of undetermined significanceStart: 01-17-2025 End: 06-23-6049czgeqowtjlInhw Naderer MD Work Phone: [facility] Work Phone: Start: 01-17-2025 End: 08-76-8783Cafwaftd Nicola Noel MD Work Phone: [facility]-LAB Path Spec Emma HospStart: 01-12-2025 End: 73-80-6598awncoapjlmNGPSH FAZIONot AvailableStart: 01-03-2025 End: 17-31-7154bidjjcpsyyPrkp Naderer MD Work Phone: [facility] Work Phone: Start: 01-03-2025 End: 66-73-7243Vnskfuej Nicola Noel MD Work Phone: [facility]-LAB Path Spec [place] HospStart: 12-22-2024 End: 06-91-0925Onfndc flowsheetGia LYNN Work Phone: noms BCP OBStart: 12-22-2024 End: 93-47-0913Ypnvty flowsheetGia LYNN Work Phone: NOCM BCP OBStart: 12-22-2024 End: 73-19-8086Qqfxxouwl Result EncounterGeneric External Data ProviderNOMS External Department UnsolicitedStart: 12-22-2024 End: 01-03-4589Gbmunnu encounter procedureGia LYNN Work Phone: noMS HealthcareStart: 12-22-2024 End: 56-60-6964Hmmussye preventive med est patient 18-39 yrsGia LYNN Work Phone: noms BCP OBComment on above: control counseling (Primary Dx); Well woman exam with routine gynecological exam; Pelvic pain in femaleStart: 12-22-2024 End: 22-55-0828npxseiabyzAPY RAMEYNot AvailableStart: 12-02-2024 End: 70-33-2374Ddjrhkm encounter procedureCorey Anita DO Work Phone: noms BCP OBComment on above:Encounter for removal of etonogestrel implantStart: 12-02-2024 End: 77-26-3828hrmbzjxjstNJQHJ FAZIONot AvailableStart: 11-30-2024 End: 70-42-5816nvtpmazidwMTJLY FAZIONot AvailableStart: 11-11-2024 End: 83-07-1818Bylklw flowsheetCorey Anita DO Work Phone: noms BCP OBStart: 11-11-2024 End: 95-08-7398Cmyzvp flowsheetCorey Anita DO Work Phone: noms BCP OBStart: 11-11-2024 End: 38-72-3951Qomzdhmgl Result EncounterGeneric External Data ProviderNOMS External Department UnsolicitedStart: 11-11-2024 End: 12-70-5182Vudkjm outpatient visit 15 minutesCorey Anita DO Work Phone: [facility] OBComment on above:Right ovarian cyst; Nausea; PCOS (polycystic ovarian syndrome)Start: 11-11-2024 End: 34-39-0302zbihqbxftpQJELS FAZIONot AvailableStart: 35-59-0134Rcd-patient / Non-visitManuel Noel MD Work Phone: [facility] Work Phone: Start: 09-07-2024 End: 38-85-2081Ppbgzsbae to same day surgery centerManuel Noel MD Work Phone: [facility] Work Phone: Start: 09-07-2024 End: 24-23-3184dyvovgyfdgZfny Naderer MD Work Phone: [facility] Work Phone: Start: 08-28-2024 End: 02-36-2526Aoigkyeyc department patient visitMARGinger ZANETroy Amarillo HospitalStart: 08-24-2024 End: 86-58-0851Pcjdwiu encounter procedureManuel Noel MD Work Phone: [facility] Work Phone: Start: 07-01-2024 End: 76-95-2953Njdcmcmmx Result EncounterGeneric External Data ProviderNOMS External Department UnsolicitedStart: 07-01-2024 End: 12-45-0214Bkmwgticc Result EncounterGeneric External Data ProviderNOMS External Department UnsolicitedStart: 35-54-3929Kaa-patient / Non-visitManuel Noel MD Work Phone: [facility] Work Phone: Start: 06-03-2024 End: 72-24-3851Nzrvyquup Result EncounterManuel Noel MD Work Phone: noms External Department UnsolicitedStart: 06-03-2024 End: 45-10-5497Zjzfxgeir Result EncounterManuel Noel MD Work Phone: noms External Department UnsolicitedStart: 03-02-2024 Patient encounter procedureGeneric ProviderNOMS HealthcareStart: 12-23-2022 Encounter for general adult medical examination without abnormal findingsDR MANUEL Zamora [facility]tart: 12-21-2022 End: 25-53-7064zvkgstssjpOB MARC A NADEREacility:H9Krrfg: 12-21-2022 End: 52-69-2590Nfcvgqfdg for general adult medical examination without abnormal findingsDR MANUEL MILTONacility:G8Gauxt: 12-01-2022 End: 17-47-1478Zmwtiygzye and management of inpatientDR MANUEL NOEL Facility:N1Ztxfn: 11-29-2022 End: 91-57-1559lvumfltzuzAY MANUEL MILTONacility:U6Clyck: 85-16-4670Libbrwxwxq and management of inpatientDR MALIK GABRIEL .Facility:F0Pjray: 11-18-2022 End: 22-48-4284krbbcjeetjXJ MANUEL A NADERERFacility:Q7Xxzzu: 09-22-2022 End: 82-25-4226bclygdaifjFCWKO PARKERFacility:Z9Dkspx: 09-09-2022 End: 27-49-2344wkrhiioiqgHL MANUEL A NADERERFacility:U2Owdhh: 08-07-2022 End: 61-02-5864itcotdbrxmYI MANUEL A NADERERFacility:V6Jlduc: 08-06-2022 End: 49-45-9228ytbpfygperFM MANUEL A NADERERFacility:E4Emufo: 07-25-2022 End: 03-83-2819snqoncnjqnAL JEFFERSON HOWARD .Facility:U8Tuzti: 07-13-2022 End: 61-28-2824kijruzyqifPC BELLO MARKS .Facility:Y6Mwysv: 07-11-2022 End: 09-26-7553ixtudngzpjQR MANUEL A NADERERFacility:H6Hekov: 06-06-2022 End: 88-73-2311evaoitmuxcTZ MANUEL A NADERERFacility:L9Wbeqf: 04-16-2022 End: 46-03-3128ercgsurlvuKC DOCTOR MISCFacility:H1 Procedures DateProcedureProcedure DetailPerforming ClinicianStart: 08-39-9365Dgwyp dip stick/tablet rgnt non-auto w/o micrscpAmy Vamsi LYNN Work Phone: Start: 96-47-7185DGM,APTIMA HPV,AGE GDLNCorey Anita DO Work Phone: Start: 73-48-0547QRV, SERUM, OPEN SPINA BIFIDAAmy Vamsi LYNN Work Phone: Start: 45-88-8575Gjqqg dip stick/tablet rgnt non-auto w/o micrscpAmy Vamsi LYNN Work Phone: Start: 81-48-3111GDENUBAAX VAGINITIS (HTRX)Gia LYNN Work Phone: Start: 20-30-0263GCV THYROID STIM HORMONECorey Anita DO Work Phone: Start: 23-73-3762DXT TESTCorey Anita DO Work Phone: Start: 05-05-2025 End: 12-56-3745Vergi dip stick/tablet rgnt non-auto w/o micrscpCorey Anita DO Work Phone: Start: 23-14-2075MBR THYROID STIM HORMONECorey Anita DO Work Phone: Start: 75-29-2064Qapkd dip stick/tablet rgnt non-auto w/o micrscpCorey Anita DO Work Phone: Start: 80-74-0391Yejey cultureMarginger Noel MD Work Phone: Start: 10-70-3297ONI,APTIMA HPV,AGE GDLNAmy Vamsi LYNN Work Phone: Start: 62-05-9874BIA INSERTION/REMOVAL OF CONTRACEPTIVE CAPSULECorey Anita DO Work Phone: Start: 67-41-7188PUE CBC WITH AUTO DIFFCorey Anita DO Work Phone: Start: 69-44-7273OzmtqicuvrtxufzbnwnecjnjgnGasg Lana MATSON Work Phone: Start: 25-41-4601ICYP TRICHOMONAS/WET PREPGeneric External Data ProviderStart: 94-59-0937BX LUMBAR SPINE 2 OR 3VMarc Lana MATSON Work Phone: Start: 19-62-2292Zzaxyoyhwas of Nonautologous Red Blood Cells into Peripheral Vein, Percutaneous ApproachDR DOCTOR MISCStart: 09-98-6144Nrbhifdh of Products of Conception, External ApproachDR DOCTOR MISC Start: 92-01-0256Qulppnpi of Amniotic Fluid, Therapeutic from Products of Conception, Via Natural or Artificial OpeningDR DOCTOR MISC Plan of Treatment DateCare ActivityDetailAuthorStart: 09-26-2025 End: 73-72-2904Fxcxiuw encounter sbueqfile67/08/2025 2:40 PM EST Routine [facility] [address] [place] [address] [address] [place], [id number] Jefferson Howard, DO [address] [place] [address] [place] [address] NOMMaribell [place] OBGYNStart: 08-31-2025 End: 64-50-0384BQU panel - Blood by Automated countCBC Lab Routine Diabetes mellitus screening Expected: 08/31/2025 (Approximate), Expires: 08/31/2026[facility] Work Phone: comment on above:Expected: 08/31/2025 (Approximate), Expires: 08/31/2026Start: 08-31-2025 End: 47-65-8523Sihhntsssje of glucose 1 hour after glucose challenge for glucose tolerance testGlucose tolerance, 1 hour Lab Routine Diabetes mellitus screening Expected: 08/31/2025 (Approximate), Expires: 08/31/2026NOMS HealthcareComment on above:Expected: 08/31/2025 (Approximate), Expires: 08/31/2026Start: 08-31-2025 End: 23-90-3467Bddhznn encounter wjolrdkfg95/12/2025 1:40 PM EST Routine [facility] [place] [facility] [address] [place] [address] GIULIA [place], [id number] Jefferson Howard, DO [address] [facility] [place] [address] NOMMaribell [place] OBGYNStart: 08-31-2025 End: 72-94-6979Neiobof encounter procedureNOMS Emma OBGYNComment on above: ArrivedStart: 76-56-7037Ybcvcaec identified in Urine by CultureUrine Culture [facility]tart: 82-57-4095Ospze cultureProMedica Toledo Hospitaltart: 08-10-2025 End: 38-07-7940Qkfztnqbggxo / ancillary services tdyquuseyc38/ 11:00 AM EDT Ancillary Procedure [facility] [address] [place] [address] [place] [id number] [facility] OBGYNStart: 08-02-2025 End: 83-60-8771BB for pregnancyUS OB 14+ weeks anatomy scan Imaging Routine Screening, , for anatomic survey ([facility]) Expected: 08/02/2025, Expires: 11/02/2025[facility] Work Phone: comment on above:Expected: 08/02/2025, Expires: 11/02/2025Start: 08-02-2025 End: 75-48-9685Cbquzaf encounter procedureNOMS BCP OBStart: 07-05-2025 End: 21-69-6567Kkecv fetoprotein, maternalAlpha fetoprotein, maternal Lab Routine 15 weeks gestation of ([facility]) Second trimester ([facility]) Expected: 07/05/2025 (Approximate), Expires: 08/04/2025[facility] Comment on above:Expected: 07/05/2025 (Approximate), Expires: 08/04/2025Start: 07-05-2025 End: 54-76-6752Ydsiozw encounter procedureNOMS Emma OBGYNComment on above: ArrivedStart: 12-54-1135WLASS-19 Vaccine ( season)COVID-19 Vaccine ( season)NOMS HealthcareStart: 87-92-8052Sirjvzaal vaccinationNOMS HealthcareStart: 06-07-2025 End: 46-70-8877Eqsegzf encounter procedureNOMS BCP OBComment on above:Arrived Start: 05-05-2025 End: 20-19-1232HTA/RhABO/Rh Lab Routine Missed menses , unspecified gestational age ([facility]) Expected: 05/05/2025 (Approximate), Expires: 05/05/2026NOMS HealthcareComment on above:Expected: 05/05/2025 (Approximate), Expires: 05/05/2026Start: 05-05-2025 End: 11-82-2071Cpwxn type and Indirect antibody screen panel - BloodType and screen Lab Routine Missed menses , unspecified gestational age ([facility]) Expected: 05/05/2025 (Approximate), Expires: 05/05/2026[facility] Work Phone: comment on above:Expected: 05/05/2025 (Approximate), Expires: 05/05/2026Start: 05-05-2025 End: 96-62-2586Zhvgb of abuse panel - Urine by Screen methodRapid drug screen, urine Lab Routine , unspecified gestational age ([facility]) Encounter for supervision of normal first in first trimester ([facility]) Expected: 05/05/2025 (Approximate), Expires: 05/05/2026[facility] HealthcareComment on above: Expected: 05/05/2025 (Approximate), Expires: 05/05/2026Start: 05-05-2025 End: 87-51-0690Hzljvvlpfoq [Units/volume] in Serum or PlasmaTSH Lab Routine Thyroid disease Expected: 05/05/2025 (Approximate), Expires: 05/05/2026[facility] HealthcareComment on above:Expected: 05/05/2025 (Approximate), Expires: 05/05/2026Start: 02-02-2025 End: 22-57-0662Eeynpzf encounter procedureNOMS [facility] OBComment on above:Arrived Start: 01-17-2025 End: 50-95-0447LizgmglksgJhgnnyehgi Procedures Routine LGSIL of cervix of undetermined significance Expected: 01/17/2025 (Approximate), Expires: 01/17/2026[facility] Work Phone: comment on above:Expected: 01/17/2025 (Approximate), Expires: 01/17/2026Start: 01-12-2025 End: 39-53-4370Qjkuzbpquair / ancillary services /26/2025 1:00 PM EDT Ancillary Procedure [facility] [address] [place] [address] NOMS BCP OBStart: 97-43-5516Trcgkyot identified in Urine by CultureUrine [facility] Hospitaltart: 00-94-9567Oiwbq [facility] Centertart: 12-22-2024 End: 89-22-0155QA PelvisUS Pelvis w/ TV Imaging Routine Pelvic pain in female Expected: 12/22/2024, Expires: 12/22/2025NOMS HealthcareComment on above: Expected: 12/22/2024, Expires: 12/22/2025Start: 12-22-2024 End: 97-37-7007Tzbyjag encounter procedureNOMS BCP OBComment on above:Arrived Start: 12-02-2024 End: 34-31-7747Uvsrbpw encounter qaiehabta44/13/2025 9:30 AM EST Procedure Visit [facility] [address] [place] [address] Jefferson Howard [facility] [place] [address] [facility] OBStart: 11-30-2024 End: 76-68-8745Wtntmvaiwzlf / ancillary services uuqerubgqf33/11/2025 2:00 PM EST Ancillary Procedure [facility] [address] [place] [address] [facility] OBStart: 11-11-2024 End: 75-60-4403AGCIQWPE Lab Routine Right ovarian cyst PCOS (polycystic ovarian syndrome) Expected: 11/11/2024 (Approximate), Expires: 11/11/2025[facility] Comment on above:Expected: 11/11/2024 (Approximate), Expires: 11/11/2025Start: 11-11-2024 End: 20-69-3171ZL PelvisUS Pelvis w/ TV Imaging Routine Right ovarian cyst PCOS (polycystic ovarian syndrome) Expected: 11/11/2024, Expires: 11/11/2025[facility] HealthcareComment on above:Expected: 11/11/2024, Expires: 11/11/2025Start: 11-11-2024 End: 54-10-9400Qclhmuf encounter cduwrhlrn25/23/2025 8:40 AM EST Office Visit [facility] [address] [place] [address] Jefferson Howard DO [address] [place] [address] [facility] OBComment on above:ArrivedStart: 92-71-3543NgmzwatxxProMedica Toledo Hospitaltart: 80-36-7465Lehajbhjm vaccinationInfluenza Vaccine (#1)[facility] HealthcareStart: 45-54-8909Uhkxbqktl B Vaccines (1 of 3 - 19+ 3-dose series)Hepatitis B Vaccines (1 of 3 - 19+ 3-dose series)[facility] HealthcareStart: 58-63-6390Ottwlsmgmqox Vaccine: Pediatrics (0 to 5 Years) and At-Risk Patients (6 to 64 Years) (1 of 2 - PCV)Pneumococcal Vaccine: Pediatrics (0 to 5 Years) and At-Risk Patients (6 to 64 Years) (1 of 2 - PCV) [facility] HealthcareStart: 24-93-9200NFZ Vaccines (1 - 3-dose series)HPV Vaccines (1 - 3-dose series)[facility] HealthcareStart: 22-58-9619Hyukpxt of varicella vaccination Varicella Vaccines (1 of 2 - 13+ 2-dose series)[facility] HealthcareStart: 2007 DTaP/Tdap/Td Vaccines (1 - Tdap)DTaP/Tdap/Td Vaccines (1 - Tdap)[facility] Start: 86-45-5038DNG Vaccines (1 of 1 - Standard series)MMR Vaccines (1 of 1 - Standard series)[facility] HealthcareBacteria identified in Urine by CultureUrine culture Microbiology Routine Missed menses Ordered: 05/05/2025[facility] Healthcare Comment on above:Ordered: 05/05/2025BC W Auto Differential panel - BloodCBC and differential Lab Routine Right ovarian cyst PCOS (polycystic ovarian syndrome) Ordered: 11/11/2024[facility] HealthcareComment on above:Ordered: 11/11/2024BC W Auto Differential panel - BloodCBC and differential Lab Routine Missed menses , unspecified gestational age ([facility]) Ordered: 05/05/2025[facility] HealthcareComment on above:Ordered: 05/05/2025HLAMYDIA TRACHOMATIS (GENITO/STI) CHLAMYDIA TRACHOMATIS (GENITO/STI) Lab Routine Exposure to STD Ordered: 07/05/2025[facility] HealthcareComment on above:Ordered: 07/05/2025ytology Cervical or vaginal smear or scraping studyPap Smear Pathology and Cytology Routine Well woman exam with routine gynecological exam Ordered: 12/22/2024[facility] Healthcare Work Phone: comment on above:Ordered: 12/22/2024ytology Cervical or vaginal smear or scraping studyPap Smear Pathology and Cytology Routine LGSIL of cervix of undetermined significance Ordered: 08/02/2025[facility] Healthcare Comment on above:Ordered: 08/02/20251690GTTQ-gikozdyBYVQ-ktwvrya Lab Routine Right ovarian cyst PCOS (polycystic ovarian syndrome) Ordered: 11/11/2024[facility] HealthcareComment on above:Ordered: 11/11/2024Follicle stimulating hormone Follicle stimulating hormone Lab Routine Right ovarian cyst PCOS (polycystic ovarian syndrome) Ordered: 11/11/2024[facility] HealthcareComment on above:Ordered: 11/11/2024hCG, quantitative, pregnancyhCG, quantitative, Lab Routine Right ovarian cyst PCOS (polycystic ovarian syndrome) Ordered: 11/11/2024[facility] Healthcare Work Phone: comment on above:Ordered: 11/11/2024Hemoglobin A1c/Hemoglobin.total in BloodHemoglobin A1c Lab Routine Right ovarian cyst PCOS (polycystic ovarian syndrome) Ordered: 11/11/2024[facility] HealthcareComment on above:Ordered: 11/11/2024Hemoglobin A1c/Hemoglobin.total in BloodHemoglobin A1c Lab Routine Missed menses , unspecified gestational age ([facility]) Ordered: 05/05/2025[facility] HealthcareComment on above:Ordered: 05/05/2025Hepatitis B virus surface Ag [Presence] in Serum or Plasma by ImmunoassayHepatitis B surface antigen Lab Routine Missed menses , unspecified gestational age ([facility]) Ordered: 05/05/2025[facility] HealthcareComment on above:Ordered: 05/05/2025Hepatitis C virus Ab [Presence] in Serum or Plasma by Immunoassay Hepatitis C antibody Lab Routine Missed menses , unspecified gestational age ([facility]) Ordered: 05/05/2025[facility] HealthcareComment on above: Ordered: 05/05/2025HIV-1/HIV-2 antigen/antibody combination immunoassayHIV-1 and HIV-2 antibodies Lab Routine Missed menses , unspecified gestational age ([facility]) Ordered: 05/05/2025[facility] HealthcareComment on above:Ordered: 05/05/2025Luteinizing hormoneLuteinizing hormone Lab Routine Right ovarian cyst PCOS (polycystic ovarian syndrome) Ordered: 11/11/2024[facility] HealthcareComment on above:Ordered: 11/11/2024Neisseria gonorrhoeae DNA [Presence] in Unspecified specimen by RANDOLPH with probe detectionNeisseria gonorrhea DNA probe, direct Lab Routine Exposure to STD Ordered: 07/05/2025[facility] HealthcareComment on above: Ordered: 07/05/2025Patient EducationEsophagitis [facility] Work Phone: ProlactinProlactin Lab Routine Right ovarian cyst PCOS (polycystic ovarian syndrome) Ordered: 11/11/2024[facility] HealthcareComment on above:Ordered: 11/11/2024Reagin Ab [Presence] in Serum by RPRRPR Lab Routine Missed menses , unspecified gestational age ([facility]) Ordered: 05/05/2025[facility] HealthcareComment on above:Ordered: 05/05/2025Removal non- biodegradable drug delivery implantRemove drug implant device Procedures Routine Encounter for removal of etonogestrel implant Ordered: 12/02/2024[facility] Work Phone: comment on above:Ordered: 12/02/2024Rubella antibody, IgGRubella antibody, IgG Lab Routine Missed menses , unspecified gestational age ([facility]) Ordered: 05/05/2025[facility] HealthcareComment on above: Ordered: 05/05/2025SURESWAB(R) ADVANCED VAGINITIS PLUS, TMASURESWAB(R) ADVANCED VAGINITIS PLUS, TMA Pathology and Cytology Routine Vaginal discharge Ordered: 0 07/05/2025[facility] Healthcare Work Phone: comment on above:Ordered: 07/05/2025Thyrotropin [Units/volume] in Serum or PlasmaTSH Lab Routine Right ovarian cyst PCOS (polycystic ovarian syndrome) Ordered: 11/11/2024[facility] HealthcareComment on above:Ordered: 11/11/2024Thyrotropin [Units/volume] in Serum or PlasmaTSH Lab Routine Elevated TSH Ordered: 02/02/2025[facility] Work Phone: Comment on above:Ordered: 02/02/2025Thyroxine (T4) free [Mass/volume] in Serum or PlasmaT4, free Lab Routine Right ovarian cyst PCOS (polycystic ovarian syndrome) Ordered: 11/11/2024[facility] HealthcareComment on above:Ordered: 11/11/2024Thyroxine (T4) free [Mass/volume] in Serum or PlasmaT4, free Lab Routine Elevated TSH Ordered: 02/02/2025[facility] HealthcareComment on above:Ordered: 02/02/2025 Payers DatePayer CategoryPayerPoly ID2021Medicaid [id number] 2021Medicaid (Managed Care) [id number] 2.16.840.1.085647.3.57[id number] 2.16.840.1.007050.3.57[id number] 2.16.840.1.449909.3.57[id number] 2.16.840.1.395085.3.57[id number] 2.16.840.1.357359.3.57[id number] 2.16.840.1.800611.3.57[id number] 2.16.840.1.672186.3.57[id number] 2.16840.1.194776.3.579.[id number] 2.16840.1.509514.3.579.[id number] 2.16840.1.465906.3.57[id number] 2.840.1.500843.3.579.[id number] 2.840.1.570046.3.579.[id number] 2.840.1.612109.3.579.[id number] 2.840.1.173373.3.57[id number] 2.840.1.974964.3.579.2.753408-72-4465Ldgjnos708582677 2.840.1.400306.3.579.[id number] 2.840.1.902971.3.57[id number] 2.840.1.633166.3.579.2.[id number] 2.840.1.442900.3.579.2.[id number] 2.840.1.668475.3.579.2.124735-55-4152Onzyain30061705 2.840.1.929382.3.579.2.[id number] 2.840.1.222099.3.57[id number] 2.0.1.375049.3.579.2.997437-42-5002Aabysjt23331546 2.840.1.181248.3.579.2.040302-24-5883Ykuuglu44650145 2.0.1.945384.3.579.2.910598-95-7455Vbemtpl1790338 2..1.426941.3.579.2.290469-45-8751Aqquvty9397786 2..1.674384.3.579.2.189401-83-0849Apycpaa6716722 2..1.026830.3.579.2.114214-39-5102Qvalpdb2028304 2..1.333900.3.579.2.918847-94-2136Bezkkss8808723 2..1.509113.3.579.2.215793-62-0434Emrpkwf0406431 2..1.382617.3.579.2.405751-66-2693Lfxosjw8079525 2..1.423346.3.579.2.977876-58-5141Ljvl-[id number] Twgasfq1908307 2..1.110[id number] 2.0.1.068116.3.579.2.406Eflwnyh94132744 2.840.1.614212.3.579.2.531 Hzcqqor56127528 2.840.1.472016.3.579.2.219Frmpgnn62143005 2.840.1.081782.3.579.2.531 Social History DateTypeDetailFacilityStart: 03-02-2024 End: 12-34-4555Llttwbp smoking status NHISNever smoked tobacco (finding) [facility]: 44-01-1011RmcXrgjkjb sex unknown (finding)[facility]: 56-64-9786Rvc Assigned At FemaleFirOhioHealth Grady Memorial Hospitaltart: 80-74-1655Haenjpa use and exposure Smokeless tobacco non-userNOMS HealthcareStart: 03-02-2024 End: 78-06-4339Cdojtou of Social functionNOPA HealthcareStart: 03-02-2024 End: 86-95-0706Qqibja connection and isolation panelNOPA HealthcareStart: 23-70-5723Ziubst Member of Clubs or OrganizationsNot on fileNOPA HealthcareHow often to you have a drink containing alcohol?2-4 times a monthNOPA HealthcareHow many standard drinks containing alcohol do you have on a typical day?1 or 2NOMS HealthcareHow often do you have 6 or more drinks on 1 occasion?NeverNOMS HealthcareIn the past 12 months, was there a time when you were not able to pay the mortgage or rent on time?NoNOMS HealthcareStart: 53-53-5672Wvc assigned at birthNot on fileAMERICAN FORK HOSPITAL HealthcareStart: 01-04-2025 End: 29-18-0581VeiOcgbtf (finding)[facility]: 45-00-7902StrbfqvgdLZDP Healthcare Medical Equipment Procedure CodeEquipment CodeEquipment Original TextEquipment IdentifierDatesERCP (endoscopic retrograde cholangiopancreatography)STENT PANCREATIC ZIMMON 4FRFDA Start: 75-60-1256SEQK (endoscopic retrograde cholangiopancreatography)STENT PANCREATIC ZIMMON 4FRFDAStart: 03-65-1142XDCA (endoscopic retrograde cholangiopancreatography)STENT PANCREATIC ZIMMON 4FRFDAStart: 40-88-8109FYQX (endoscopic retrograde cholangiopancreatography)STENT PANCREATIC ZIMMON 4FRFDA Start: 11-20-2017 Goals DatePatient GoalDesired Activity/State Clinical Notes 08-24-2024 to 08-31-2025 Note Date & ZiqmAqbzMmhnluxr42-79-6691 History of Present illness Narrative* LEAH Curran [...] esophagitis 03/02/2024 Mild intermittent asthma without complication ([facility]) 03/02/2024 Allergic rhinitis due to pollen 03/02/2024 Morbid obesity due to excess calories ([facility]) 03/02/2024 Annual physical exam 03/02/2024 Amenorrhea 04/28/2024 [...] was 03/08/2025. Assessment/Plan ICD-10-CM 1. Second trimester ([facility]) Z34.92 POCT urinalysis dipstick manually resulted 2. 23 weeks gestation of ([facility]) Z3A.23 3. Diabetes mellitus screening Z13.1 CBC Glucose tolerance, 1 hour CBC Glucose tolerance, 1 hour Assessment/Plan Return OB: Patient presents today for a routine obstetrics appointment. Patient is currently 23w2d . Patient states she is doing well but has complaints of being tired due to current . Pt was seen at [facility] on 08/29/2025 due to having painful abdominal pain and not feeling baby moving. [facility] evaluated the patient and was [...] a h-hr glucose order to schedule at [facility] and pt is advised not to eat or drink anything after midnight. PVU. We will increase keflex to tid for 7 days and pyridium. Patient will also be referred to [facility] for another anatomy scan due to body habitus per reading of recent scan Orders Placed This Encounter Procedures CBC Glucose tolerance, 1 hour POCT urinalysis dipstick manually resulted Follow Up: Patient is to return to office in 3 week for routine OB appointment. Documented by Janneth Paul MA on behalf of: LEAH Curran documented in this encounterLake Regional Health SystemKcezgsggit73-24-4245 History of Present illness Narrative* Shelleyjoel Dang, [...] esophagitis 03/02/2024 Mild intermittent asthma without complication ([facility]) 03/02/2024 Allergic rhinitis due to pollen 03/02/2024 Morbid obesity due to excess calories ([facility]) 03/02/2024 Annual physical exam 03/02/2024 [...] nursing note reviewed. Exam conducted with a brush stainer present. Vitals: Estimated body mass index is 53.12 kg/m as calculated from the following: Height as of 06/01/24: 5' 1 . Weight as of this encounter: 281 lb 1.9 oz. BP: 102/62 Patient's last menstrual period was 03/08/2025. ASSESSMENT & PLAN ICD-10-CM 1. Second trimester ([facility]) Z34.92 2. 19 weeks gestation of ([facility]) Z3A.19 CANCELED: POCT urinalysis dipstick manually resulted 3. Screening, , for anatomic survey ([facility]) Z36.89 OB 14+ weeks anatomy scan 4. [...] Procedure Laterality Date GALLBLADDER documented in this encounterLake Regional Health [id number] History of Present illness Narrative* LEAH Curran [...] esophagitis 03/02/2024 Mild intermittent asthma without complication ([facility]) 03/02/2024 Allergic rhinitis due to pollen 03/02/2024 Morbid obesity due to excess calories ([facility]) 03/02/2024 Annual physical exam 03/02/2024 [...] nursing note reviewed. Exam conducted with a brush stainer present. Vitals: Estimated body mass index is 54 kg/m as calculated from the following: Height as of 06/01/24: 5' 1 . Weight as of this encounter: 285 lb 12.8 oz. BP: 120/80 Patient's last menstrual period was 03/08/2025. ASSESSMENT & PLAN ICD-10-CM 1. 15 weeks gestation of ([facility]) Z3A.15 POCT urinalysis dipstick manually resulted Alpha fetoprotein, maternal Alpha fetoprotein, maternal 2. Second trimester ([facility]) Z34.92 POCT urinalysis dipstick manually resulted Alpha [...] behalf of: LEAH Curran documented in this encounterLake Regional Health SystemJlcssxphkw21-43-2901 History of Present illness Narrative* Shelley Dang [...] 03/02/2024 Morbid obesity due to excess calories ([facility]) 03/02/2024 Annual physical exam 03/02/2024 Amenorrhea 04/28/2024 [...] nursing note reviewed. Exam conducted with a brush stainer present. Vitals: Estimated body mass index is 53.17 kg/m as calculated from the following: Height as of 06/01/24: 5' 1 . Weight as of this encounter: 281 lb 6.4 oz. BP: 108/68 Patient's last menstrual period was 03/08/2025. ASSESSMENT & PLAN ICD-10-CM 1. First trimester ([facility]) Z34.91 2. 11 weeks gestation of ([facility]) Z3A.11 3. Right ovarian cyst N83.201 ondansetron [...] or undercooked meat, and stay away from [facility]. Patient has been consulted regarding any further do's and don'ts of . Patient voiced understanding and all questions and concerns wereanswered. No orders of the defined types were placed in this encounter. Follow Up: Patient is to return in 4 weeks for routine OB appointment. Documented by Shelley Dang LPN on behalf of: Jefferson Howard DO documented in this encounterLake Regional Health [id number] History of Present illness Narrative* Gayatri Correa [...] esophagitis 03/02/2024 Mild intermittent asthma without complication ([facility]) 03/02/2024 Allergic rhinitis due to pollen 03/02/2024 Morbid obesity due to excess calories ([facility]) 03/02/2024 Annual physical exam 03/02/2024 Amenorrhea 04/28/2024 [...] dipstick manually resulted , unspecified gestational age ([facility]) - Type and screen; Future - ABO/Rh; Future - CBC and differential - Hemoglobin A1c - RPR - Rubella antibody, IgG - Hepatitis B surface antigen - Hepatitis C antibody - HIV-1 and HIV-2 antibodies - Rapid drug screen, urine; Future Encounter for supervision of normal first in first trimester ([facility]) - Rapid drug screen, urine; Future [...] or undercooked meat, and stay away from [facility]. Patient has also been advised to not change litter boxes and eat 6 small meals a day. Patient has been consulted regarding the do's and don'ts ofpregnancy. Patient was given labs and all questions and concerns were answered. Morris and Thyroid given to patient to have [...] by: Gayatri Correa LPN documented in this encounterLake Regional Health [id number] History of Present illness Narrative* Shelley Dang [...] Major depressive disorder, recurrent episode, mild (HCC) ([facility]) 03/02/2024 Gastroesophageal reflux disease without esophagitis 03/02/2024 Mild intermittent asthma without complication ([facility]) 03/02/2024 Allergic rhinitis due to pollen 03/02/2024 Morbid obesity due to excess calories ([facility]) 03/02/2024 Annual physical exam 03/02/2024 Amenorrhea 04/28/2024 [...] nursing note reviewed. Exam conducted with a brush stainer present. Vitals: Estimated body mass index is [...] of: Jefferson Howard DO documented in this encounterLake Regional Health [id number] History of Present illness Narrative* Jefferson Howard [...] nursing note reviewed. Exam conducted with a brush stainer present. Vitals: Estimated body mass index is [...] of: Jefferson Howard DO documented in this encounterLake Regional Health [id number] History of Present illness Narrative* LEAH Curran - 12/22/2024 11:00 AM EST Reason for Appointment: Patient ID: Jes Romero is a 24 y.o. female who presents for [facility] Patient presents today for Annual [...] Major depressive disorder, recurrent episode, mild (HCC) ([facility]) 03/02/2024 Gastroesophageal reflux disease without esophagitis 03/02/2024 Mild intermittent asthma without complication ([facility]) 03/02/2024 Allergic rhinitis due to pollen 03/02/2024 Morbid obesity due to excess calories ([facility]) 03/02/2024 Annual physical exam 03/02/2024 Amenorrhea 04/28/2024 [...] nursing note reviewed. Exam conducted with a brush stainer present. Vitals: Estimated body mass index is [...] behalf of: LEAH Curran documented in this encounterLake Regional Health SystemYwgziajgks34-28-2042 History of Present illness Narrative* Pilar Collins, [...] nursing note reviewed. Exam conducted with a brush stainer present. Vitals: Estimated body mass index is [...] of: Jefferson Howard DO documented in this encounterLake Regional Health SystemCchusbkjyw31-08-2009 History of Present illness Narrative* Pilar Collins [...] Noted Major depressive disorder, recurrent episode, mild ([facility]) ([facility]) 03/02/2024 Gastroesophageal reflux disease without esophagitis 03/02/2024 Mild intermittent asthma without complication ([facility]) 03/02/2024 Allergic rhinitis due to pollen 03/02/2024 Morbid obesity due to excess calories ([facility]) 03/02/2024 Annual physical exam 03/02/2024 Amenorrhea 04/28/2024 [...] nursing note reviewed. Exam conducted with a brush stainer present. Vitals: Estimated body mass index is [...] of: Jefferson Howard DO documented in this encounterLake Regional Health [id number] [place] [address] EGD Procedure Note Signed Patient: Jes Romero MR#: [id number] : 2000 Acct:[id number] Age/Sex: 23 / F Adm Date: 4 Loc: Room: Type: [facility] Attending Dr: Mir Silva MD [...] ovary. She has not followed up with CLIENT DELIVERY MANAGER. On omeprazole 20 mg daily. Pre-operative diagnosis: [...] she needs to continue to follow-up with CLIENT DELIVERY MANAGER as it is unlikely related to GI etiology. -Resume normal diet -Follow up in the office 6 to 8 weeks with GI TOP HAT BODY MAKER -Follow up with PCP Following a period of recovery, patient was seen and given full explanation of the procedure. Patient tolerated the procedure well and will be discharged in satisfactory, stable condition. Mir Silva MD Documented By: Mir Silva MD 09/07/24 1325 Signed By: 09/07/24 1333 [facility]11-05-2024 Evaluation note* Diagnosis Onset Date Resolution Status Admit Date Dyspepsia acuteNovember 2023 9:29amNauseaacuteNovember 2023 9:29amChronic GERD chronicNovember 2023 9:29amConstipationchronicNov2023 9:29am [facility] Work Phone: Evaluation note* Diagnosis Gastroesophageal reflux [...] female genital organs documented in this encounter [facility] HealthcareEvaluation noteNo assessment information availableUniversity Hospitals Beachwood [facility] Work Phone: Evaluation note* Diagnosis Gastroesophageal reflux [...] of undetermined significance documented in this encounter [facility] HealthcareEvaluation note* Diagnosis Gastroesophageal reflux disease [...] abnormal blood chemistry documented in this encounter [facility] HealthcareEvaluation note* Diagnosis Gastroesophageal reflux disease [...] mild Morbid obesity due to excess calories ([facility]) Missed menses , unspecified gestational age ([facility]) Encounter for supervision of normal first in first trimester ([facility]) Right ovarian cyst Other and unspecified ovarian cyst Nausea Nausea alone PCOS (polycystic ovarian syndrome) Polycystic ovaries Gastroesophageal reflux disease, unspecified whether esophagitis present Thyroid disease Unspecified disorder of thyroid documented in this encounter [facility] HealthcareEvaluation note* Diagnosis Gastroesophageal reflux disease without esophagitis- Primary Esophageal reflux Amenorrhea Absence of menstruation Generalized abdominal pain Abdominal pain, generalized Morbid (severe) obesity due to excess calories ([facility]) Body mass index (BMI) 50.0-59.9, adult ([facility]) Right sided sciatica- Primary Sciatica Gastroesophageal reflux disease without esophagitis Esophageal reflux Major depressive disorder, recurrent episode, mild Major depressive disorder, recurrent episode, mild Morbid obesity due to excess calories ([facility]) First trimester ([facility]) state, incidental 11 weeks gestation of ([facility]) Right ovarian cyst Other and unspecified ovarian cyst Nausea Nausea alone PCOS (polycystic ovarian syndrome) Polycystic ovaries documented in this encounter [facility] HealthcareEvaluation note* Diagnosis Gastroesophageal reflux disease without esophagitis- Primary Esophageal reflux Amenorrhea Absence of menstruation Generalized abdominal pain Abdominal pain, generalized Morbid (severe) obesity due to excess calories ([facility]) Body mass index (BMI) 50.0-59.9, adult ([facility]) Right sided sciatica- Primary Sciatica Gastroesophageal reflux disease without esophagitis Esophageal reflux Major depressive disorder, recurrent episode, mild Major depressive disorder, recurrent episode, mild Morbid obesity due to excess calories ([facility]) 15 weeks gestation of ([facility]) Second trimester ([facility]) state, incidental Exposure to STD Vaginal discharge Leukorrhea, not specified as infective Nausea Nausea alone documented in this encounter [facility] HealthcareEvaluation note* Diagnosis Gastroesophageal reflux disease without esophagitis- Primary Esophageal reflux Amenorrhea Absence of menstruation Generalized abdominal pain Abdominal pain, generalized Morbid (severe) obesity due to excess calories ([facility]) Body mass index (BMI) 50.0-59.9, adult ([facility]) Right sided sciatica- Primary Sciatica Gastroesophageal reflux disease without esophagitis Esophageal reflux Major depressive disorder, recurrent episode, mild Morbid obesity due to excess calories ([facility] [place]) Second trimester ([facility]) state, incidental 19 weeks gestation of ([facility]) Screening, , for anatomic survey ([facility]) Encounter for anatomic survey LGSIL of cervix of undetermined significance documented in this encounter [facility] HealthcareEvaluation note* Diagnosis Gastroesophageal reflux disease without esophagitis- Primary Esophageal reflux Amenorrhea Absence of menstruation Generalized abdominal pain Abdominal pain, generalized Morbid (severe) obesity due to excess calories ([facility]) Body mass index (BMI) 50.0-59.9, adult ([facility]) Right sided sciatica- Primary Sciatica Gastroesophageal reflux disease without esophagitis Esophageal reflux Major depressive disorder, recurrent episode, mild Morbid obesity due to excess calories ([facility]) Second trimester ([facility]) state, incidental 23 weeks gestation of ([facility]) Diabetes mellitus screening Screening for diabetes mellitus documented in this encounter [facility] HealthcareReason for referral (narrative)No reason for referral information [facility] Work Phone: Summary Purpose Family [...] section and content) DATE CREATED AUTHOR 12/24/2022 [facility] DATE CREATED AUTHOR AUTHOR'S ORGANIZ ATION 08/25/2025 [facility] DATE CREATED AUTHOR AUTHOR'S ORGANIZ ATION 08/31/2025 [facility] DATE CREATED AUTHOR AUTHOR'S ORGANIZ ATION 09/01/2025 [facility] EPIC Care Teams (unrecognized sec [...] Manuel Noel MD [address] [place] [address] [facility]/24Team MemberRelationshipSpecialtyStart DateEnd Date Manuel Noel MD [address] [place] [address] PCP - [facility]03/02/24 Manuel Noel MD [address] [place] [address] [facility]07/20/24Team MemberRelationshipSpecialtyStart DateEnd Date Manuel Noel MD [address] [place] [address] [facility]03/02/24 Manuel Noel MD [address] [place] [address] [facility]07/20/24Team MemberRelationshipSpecialtyStart DateEnd Date Manuel Noel MD [address] [place] [address] [facility]03/02/24 Manuel Noel MD [address] [place] [address] [facility]07/20/24Team MemberRelationshipSpecialtyStart DateEnd Date Manuel Noel MD [address] [place] [address] [facility]03/02/24 Manuel Noel MD [address] [place] [address] [facility]07/20/24Team MemberRelationshipSpecialtyStart DateEnd Date Manuel Noel MD [address] [place] [address] PCP - [facility]03/02/24 Manuel Noel MD [address] [place] [address] [facility]07/20/24Team MemberRelationshipSpecialtyStart DateEnd Date Manuel Noel MD [address] [place] [address] [facility]03/02/24 Manuel Noel MD [address] [place] [address] [facility]07/20/24Team MemberRelationshipSpecialtyStart DateEnd Date Manuel Noel MD [address] [place] [address] [facility] - [facility]03/02/24 Manuel Noel MD [address] [place] [address] [facility]07/20/24Team MemberRelationshipSpecialtyStart DateEnd Date Manuel Noel MD [address] [place] [address] [facility] - [facility]03/02/24 Manuel Noel MD [address] [place] [address] [facility]07/20/24 Team Status: Inactive Member Role Status Dates Jefferson Howard DO Attending Provider Active Start : January 17, 2025 End: January 17, 2025Team MemberRelationshipSpecialtyStart DateEnd Date Manuel Noel MD [address] [place] [address] [facility]03/02/24 Manuel Noel MD [address] [place] [address] [facility]07/20/24Team MemberRelationshipSpecialtyStart DateEnd Date Manuel Noel MD [facility]03/02/24 Manuel Noel MD [address] [place] [address] [facility]07/20/24Team MemberRelationshipSpecialtyStart DateEnd Date Manuel Noel MD [facility]03/02/24 Manuel Noel MD [address] [place] [address] [facility]07/20/24Team MemberRelationshipSpecialtyStart DateEnd Date Manuel Noel MD [facility]03/02/24 Manuel Noel MD [address] [place] [address] [facility]07/20/24Team MemberRelationshipSpecialtyStart DateEnd Date Manuel Noel MD [facility]03/02/24 Manuel Noel MD [address] [place] [address] [facility]07/20/24Team MemberRelationshipSpecialtyStart DateEnd Date Manuel Noel MD [facility]03/02/24 Manuel Noel MD [address] [place] [address] [facility]07/20/24 Team Status: Inactive Member Role/Relationship Status Dates Bello Marks ([facility]) , Attending Provider Active Start: August 29, 2025 End: August 29, 2025 Team Status: Active Member Role/Relationship Status Dates Bello Marks DO Attending Provider Active Start: August 29, 2025 Team MemberRelationshipSpecialtyStart DateEnd Date Manuel Noel MD [facility]03/02/24 Manuel Noel MD [address] [place] [address] [facility] - [facility]07/20/24 Reason for Visit (unrecogniz ed section [...] BE BASED ON THE PRIMARY CLINICAL RECORDS. [employer] provides no warranty or guarantee of the accuracy or completeness of information in this document.
[2025-09-28 12:01] LABS: Thyroid Stimulating Hormone 1.578 uIU/mL (0.358-3.740)
== END 2025-09-28 10:15 | disposition home or self-care (01) ==
LOC: LAB 10:15
PROVIDERS: PCP Family Medicine; Visit Provider Nurse Practitioner Family
DX: Z86.39 Personal history of other endocrine, nutritional and metabolic disease (principal)
CPT/HCPCS: 36415; 84443

== ENCOUNTER 2025-09-28 10:18 | Outpatient (OUT) | payer OTHER, SELFPAY ==
--- OUTSIDE RECORDS SUMMARY | 2025-09-28 10:24 | XMS_ITS | CCD ---
Author Organization [facility] Care Team Providers Care Admissions Rn Name Role Phone DEMETRIOC, DR WILLS Attending [...] Unavailable ANITA ., DR ANDREA Attending Unavailable ODEN, DR AISHWARYA Luis Consulting Unavailable NADERER, DR [...] MANUEL Souza Primary Care Unavailable NADERER, DR MANULE Souza Consulting Unavailable Lana MATSON, Manuel Primary Care Provider Mir Silva MD Attending Provider Manuel Noel MD Primary Care Provider Manuel Noel MD Unavailable Manuel Noel MD Primary Care Provider Krishna Saxena MD Attending Provider [phone] Jefferson Howard DO Attending Provider Manuel Noel MD Primary Care Provider Manuel Noel MD Unavailable Manuel Noel MD Unavailable MANUEL NOEL Primary Care Unavailable MYLENE SAMPSON Attending Unavailable NADERER, MANUEL Primary Care Unavailable MAO PETERSEN Attending Unavailable NADERER, MANUEL Primary Care Unavailable FRIES, WONG S Admitting Unavailable FRIES, WONG S Attending Unavailable MANUEL NOEL Primary Care Unavailable Tae ([facility]) Bello BENTON Attending Provider [phone] Hay ([facility]), Bello Bal Admitting Unavailable Hay ([facility]), Bello Bal Attending Unavailable Manuel Noel Primary [...] JEFFERSON Attending Unavailable ANITA, JEFFERSON Attending Unavailable VAMSIIGA LOUIE Attending Unavailable ANITA, JEFFERSON Attending Unavailable ANITA, JEFFERSON Referring Unavailable GIA MAYO Attending Unavailable Allergies Allergy ClassificationReported Allergen(s)Allergy TypeDate of OnsetReaction(s) Facility (2 sources)Penicillins; Translations: [PENICILLINS]Drug allergy (disorder) 92-61-5709Zvl [facility] Repository (20 sources)PenicillinsDrug Ntbecdnhgly46-21-3884GpngnxwOIRN Healthcare (1 source)PenicillinsDrug allergy (disorder)19-26-5562JyaovdpzsMer[facility] Rep[facility] Medications Current Medications MedicationDrug Class(es)DatesSig (Normalized)Sig (Original)200 actuat albuterol 0.09 mg/actuat dry powder inhaler (16 sources)beta2-Adrenergic AgonistStart: 15-98-1624Wbtrt: 02-27-2024 End: 41-47-8884xwzr 2 puff(s) by inhalation every four hoursalbuterol HFA 90 mcg/act inhaler Indications: Mild intermittent intrinsic asthma without status asthmaticus without complication ([facility]) Inhale 2 puffs every 4 (four) hours if needed for shortness of breath 18 g 3 02/27/2024 12/22/2024 Discontinued Start: 12-12-2021 End: 05-07-7867Aqmjxqxts Sulfate (Ventolin Hfa) 90 mcg/actuation HFA aerosol inhaler Discontinued 2 INH EFOOBJYSXXB9Y as needed for sob December 12, 2021 12:00am August 24, 2024 9:32ammeclizine hydrochloride 25 mg oral tablet (4 sources)AntiemeticStart: 76-93-8653kzcwewcwjp 40 mg delayed release oral capsule (20 sources)Proton Pump InhibitorStart: 03-02-2024 End: 40-79-9466xxnp 1 capsule by mouth in the morningomeprazole (PriLOSEC) [address] capsule Indications: Gastroesophageal reflux disease, unspecified whether esophagitis present Take 1 capsule (40 mg) by mouth in the morning and 1 capsule (40 mg) in the evening. Take before meals. 60 capsule 5 05/05/2025 ActiveStart: 12-14-2021 End: 65-38-1520abvw 1 capsule by mouth once dailyOmeprazole 20 mg Capsule,Delayed Release(Dr/Ec) Discontinued 20 MG PO Daily 30 30 0 December 14, 2021 12:00am September 07, 2024 1:33pmStart: 11-20-2017 End: 50-19-1642Gboalcfxdl 20 mg Capsule,Delayed Release(Dr/Ec) Discontinued 20 MG PO as needed for Acne November 20, 2017 12:00am December 12, 2021 2:38pm ondansetron 4 mg oral tablet (20 sources)Serotonin-3 Receptor AntagonistStart: 11-11-2024 End: 68-91-4826xcsz 1 tablet by mouth every six hours [...] hydrochloride 12.5 mg oral tablet (20 sources)PhenothiazineStart: 85-06-5822nkps 1 tablet by mouth every six hours as needed for nausea and vomiting and nausea and nauseapromethazine (Phenergan) 12.5 MG tablet Indications: Nausea Take 1 tablet (12.5 mg) by mouth every 6 (six) hours if needed for nausea or vomiting for up to 30 doses Take 1 tablet by mouth every 6 hours as needed for nausea. 30 tablet 2 07/05/2025 ActiveStart: 72-58-3776kmki 1 tablet by mouth every six hours as needed for nausea and vomiting End: 14-42-9774emfweicwlnir (Phenergan) 12.5 MG tablet Take by mouth 05/05/2025 Discontinuedsucralfate 1000 mg oral tablet (3 sources)Aluminum ComplexStart: 88-99-3059wggy 1 tablet by mouth twice daily Completed/Discontinued Medications MedicationDrug Class(es)DatesSig (Normalized)Sig (Original)ARIPiprazole 2 mg oral tablet (4 sources)Atypical AntipsychoticStart: 01-26-2019 End: 79-88-6745jtvy 1 tablet by mouth once dailyAripiprazole 2 mg Tablet Discontinued 2 MG PO Daily 14 14 0 January 25, 2019 11:00pm December 12, 2021 2:38pmcyclobenzaprine hydrochloride 10 mg oral tablet (4 sources)Muscle RelaxantStart: 06-01-2024 End: 92-99-7216pmuo 1 tablet by mouth three times daily as needed for muscle spasmscyclobenzaprine (Flexeril) 10 MG tablet Indications: Right sided sciatica Take 1 tablet (10 mg) by mouth 3 (three) times a day as needed for muscle spasms 30 tablet 06/01/2024 11/11/2024 Discontinued(Other)Drospirenone-Ethinyl Estradiol (4 sources)Progestin, EstrogenStart: 12-12-2021 End: 77-14-9115bmgb 1 tablet by mouth once dailyDrospirenone-Ethinyl Estradiol 3-0.03 mg tablet Discontinued 1 TAB PO Daily December 12, 2021 1:00am August 24, 2024 10:33amStart: 12-12-2021 End: 62-54-8214pzwl 1 tablet by mouth once dailyDrospirenone-Ethinyl Estradiol 3-0.03 mg tablet Discontinued 1 TAB PO Daily December 12, 2021 12:00am August 24, 2024 9:33amDULoxetine 30 mg delayed release oral capsule (4 sources)Serotonin and Norepinephrine Reuptake InhibitorStart: 12-14-2021 End: 91-98-9578rvvt 1 capsule by mouth once daily at bedtimeDuloxetine 30 mg Capsule,Delayed Release(Dr/Ec) Discontinued 30 MG PO Daily at bedtime 30 30 0 December 14, 2021 12:00am August 24, 2024 9:32amergocalciferol 1.25 mg oral capsule (4 sources)Provitamin D2 CompoundStart: 01-26-2019 End: 56-02-7561Lkvlfutfhxvljz (Vitamin D2) 50,000 unit Capsule Discontinued 02993 UNIT PO Sa@0900 2 14 0 January 25, 2019 11:00pm December 12, 2021 2:38pm ethinyl estradiol 0.035 mg / norgestimate 0.25 mg oral tablet (9 sources)Progestin, EstrogenStart: 12-22-2024 End: 77-82-9549jnlx 1 tablet by mouth once daily, then take 1 tablet by mouth once dailynorgestimate-ethinyl estradiol (Sprintec 28) 0.25-35 MG-MCG tablet Indications: control counseling Take 1 tablet by mouth Daily for 28 days Take 1 tablet by mouth daily 28 tablet 11 12/22/2024 04/27/2025 Discontinued (Therapy completed)sertraline 50 mg oral tablet (4 sources)Serotonin Reuptake InhibitorStart: 01-26-2019 End: 23-57-8358icpt 1 tablet by mouth once dailySertraline 50 mg Tablet Discontinued 50 MG PO Daily 14 14 0 January 25, 2019 11:00pm December 12, 2021 2:38pm Problems Active Problems Problem ClassificationProblemDateDocumented DateEpisodic/ChronicAcute posthemorrhagic anemia (1 source)Acute posthemorrhagic anemia; Translations: [ACUTE POSTHEMORRHAGIC ANEMIA]Onset: 37-66-5436UwyyvcslNskbzlkvfbebiu/social admission (2 sources)Patient encounter status; Translations: [Person consulting for explanation of examination or test findings]96-98-1596WhbsibcjVdojyk (20 sources)Mild intermittent asthma; Translations: [Mild intermittent asthma, uncomplicated]Onset: 864383-40-7941OqpuixbJderbo of cervix (3 sources)Cervical intraepithelial neoplasia grade 1; Translations: [Low grade squamous intraepithelial lesion on cytologic smear of cervix (LGSIL)]01-17-2025 EpisodicContraceptive and procreative management (3 sources)Subcutaneous contraceptive implant present; Translations: [Encounter for surveillance of implantable subdermal contraceptive]89-39-2539Qdjxpowb Esophageal disorders (20 sources)Gastroesophageal reflux disease; Translations: [Gastro-esophageal reflux disease without esophagitis]Onset: 001117-06-2085XwhzrioRhvtokpaww disorders (3 sources)Esophagitis; Translations: [Esophagitis]33-90-4516Ijlpjxfz Immunizations and screening for infectious disease (4 sources)Encounter for screening for infections with a predominantly sexual mode of transmission; Translations: [Contact with and (suspected) exposure to infections with a predominantly sexual mode of transmission]Onset: 06-10-2022 87-94-0233ApdmlkkwQcneknmjg (1 source)Influenza due to other identified influenza virus with other respiratory manifestations; Translations: [FLU D/T OTH ID FLU VIR OTH RSP MANF] Onset: 79-70-8657FgqvvbkvRmfgihipm disorders (20 sources)Irregular menstruation, unspecified; Translations: [Amenorrhea] Onset: 80-77-1440LoftpddEtzh disorders (20 sources)Recurrent major depression; Translations: [Major depressive disorder, recurrent, unspecified]Onset: 677494-77-1253BzihnrvOeiqdq and vomiting (12 sources)Nausea; Translations: [Nausea]27-08-5240MxsljjgiJipnk complications of ; puerperium affecting management of mother (1 source)Obesity complicating childbirth; Translations: [OBESITY COMPLICATING CHILDBIRTH]Onset: 41-16-6724DnjqvdzOdmsm complications of ; puerperium affecting management of mother (1 source)Anemia of the puerperium; Translations: [ANEMIA OF THE PUERPERIUM] Onset: 45-09-1616OsurlboRlsus complications of (2 sources)Obesity complicating , third trimester; Translations: [OBESITY COMP THIRD TRI]Onset: 09-72-3180EhzxukoJoiig complications of (4 sources) related conditions, unspecified, unspecified trimester; Translations: [ RELATED COND UNS UNS TRI]Onset: 24-55-0060CbjdotioLgxhl complications of (1 source)Diseases of the respiratory system complicating , third trimester; Translations: [DISEASESRESP SYS COMP PREG 3RD TRI]Onset: 09-24-2022 EpisodicOther complications of (1 source)Other specified related conditions, unspecified trimester; Translations: [Other specifiedpregnancy related conditions, unspecified trimester]Onset: 78-40-4218StososmjRvnvj ear and sense organ disorders (3 sources)Otalgia, left ear; Translations: [OTALGIA LEFT EAR]Onset: 09-22-2022 EpisodicOther endocrine disorders (5 sources)Polycystic ovary syndrome; Translations: [Polycystic ovarian syndrome]24-43-7466AlmtkhqOmezr female genital disorders (2 sources)Vaginal discharge; Translations: [Other specified noninflammatory disorders of vagina]81-99-8953QdqohledIzrls gastrointestinal disorders (4 sources)Constipation; Translations: [Constipation, unspecified]01-21-2019 EpisodicOther gastrointestinal disorders (1 source)Constipation, unspecified; Translations: [Constipation, unspecified] 45-15-0307AxxrihydPnujw gastrointestinal disorders (1 source)Diarrhea, unspecified; Translations: [Diarrhea, unspecified]Onset: 10-94-8452ZyrkrsoaHpygw nutritional; endocrine; and metabolic disorders (20 sources)Morbid obesity; Translations: [Morbid (severe) obesity due to excess calories]Onset: 342142-91-8097SkmvtmhSvkzq and delivery including normal (20 sources)Single live ; Translations: [Encounter for supervision of other normal , third trimester]Onset: 56-21-3520YlsuqwfgQkqer screening for suspected conditions (not mental disorders or infectious disease) (20 sources)Encounter for screening for malignant neoplasm of cervix; Translations: [Encounter for other specified screening]Onset: 68-86-4912QwxgabhjCmssu upper respiratory disease (20 sources)Allergic rhinitis due to pollen; Translations: [Allergic rhinitis due to pollen]Onset: 791811-56-9732ZwdhkxyHbtiix media and related conditions (1 source)Unspecified nonsuppurative otitis media, bilateral; Translations: [UNS NONSUPPURATIVE OTITIS MEDIA OSCAR]Onset: 54-72-4827QwoakjeqXlqxoed cyst (5 sources)Cyst of right ovary; Translations: [Unspecified ovarian cyst, right side]37-04-3510CiandmdpGuqlqfzw codes; unclassified (1 source)38 weeks gestation of ; Translations: [38 WEEKS GESTATION OF ]Onset: 61-48-1443IgojhnmcEuhwclww codes; unclassified (1 source)29 weeks gestation of ; Translations: [29 WEEKS GESTATION OF ]Onset: 90-21-4946NiyxzcvwTnzofarx codes; unclassified (2 sources)Gestation period, 11 weeks; Translations: [11 weeks gestation of ]95-48-8439MzukmymsGyjcncnq codes; unclassified (2 sources)Gestation period, 15 weeks; Translations: [15 weeks gestation of ]12-54-7393IusmsxcyRavfjibo codes; unclassified (2 sources)Gestation period, 19 weeks; Translations: [19 weeks gestation of ]56-39-1255IvoyhdjjIvijsghq codes; unclassified (2 sources)Gestation period, 23 weeks; Translations: [23 weeks gestation of ]95-37-3873MhpdmgfvDtjwtls disorders (1 source)Disorder of thyroid gland; Translations: [Disorder of thyroid, unspecified]33-40-7913DnyqqgptQduuptilzlcs (2 sources)[facility] ; Translations: [[facility] DIS/COND COMPL ]Onset: 26-31-9747Bmgbscbfcxjs (1 source)STOMACH PAIN, DIARRHEAOnset: 08-28-2024 Past or Other Problems Problem ClassificationProblemDateDocumented DateEpisodic/ChronicAbdominal pain (20 sources)Indigestion; Translations: [Epigastric pain]Onset: 03-02-2024 Resolved: 866866-13-5705HxieiuymEmekqbbqnnuca gastroenteritis (1 source)Noninfective gastroenteritis and colitis, unspecified; Translations: [Noninfective gastroenteritis and colitis, unspecified]Onset: 14-27-7237Vfwvsrrr Other complications of (4 sources)Abnormal ultrasonic finding on screening of mother; Translations: [ABNORM US SCREEN MOTHER]Onset: 92-10-2670Izczdhac Residual codes; unclassified (1 source)26 weeks gestation of ; Translations: [26 WEEKS GESTATION OF ]Onset: 96-21-6194SfhcayszPvhdjvhw codes; unclassified (1 source)18 weeks gestation of ; Translations: [18 WEEKS GESTATION OF ]Onset: 05-29-0620EzbbunxaDqfzlvmi codes; unclassified (1 source)Less than 8 weeks gestation of ; Translations: [< 8 WEEKS GESTATION ]Onset: 55-52-7259SqellafyUscfeboqacv; intervertebral disc disorders; other back problems (20 sources)Cervicalgia; Translations: [Torticollis]Onset: 05-88-6168Trmjtwmx Results Test NameValueInterpretationReference RangeFacilityUrinalysis macro (dipstick) panel (U)on 41-86-2844Xpogwajul, UA2+Negative - 4(70) +++ mg/dLNOSD Healthcare Blood, UANegativeNegative - 50 [place]/mcLNOSD HealthcareClarity, UAClearNOMS HealthcareColor, UADark AmberNOSD HealthcareGlucose, UANegativeNegative - 2000(110) ++++ mg/dLNOSD HealthcareInterpretation and review of laboratory resultsAbnormalNOSD HealthcareKetones, UAPositiveNegative - 160(16) ++++ mg/dL NOMS HealthcareLeukocytes, UA1+Negative - 500+++ [place]yler/mcLNOSD HealthcareNitrite, UANegativeNegative - PositiveNOMS HealthcarepH, UA6.05 - 9N[facility] Protein, UA1+Negative - 2000(20) ++++ mg/dLNOSD HealthcareSpec Grav, UA1.0251 - 1.03NOSD HealthcareUrobilinogen, UA2.00.2 - 12 mg/dLNOSD HealthcareNOMS HealthcareBasophils Auto (Bld) [#/Vol]Ordered By: Bello Marks ([place]) on 64-77-1330Jkbkmodqc (Bld) [#/Vol]0.0 10 3/uL0.0-0.1FThe University of Toledo Medical CenterBasophils/100 WBC Auto (Bld)Ordered By: Bello Marks ([place]) on 08-29-2025 Basophils/100 WBC (Bld)0.5 %0.2-2.0[facility] Eosinophils/100 WBC Auto (Bld)Ordered By: (Salma) Bello Marks on 08-29-2025 Eosinophils/100 WBC (Bld)0.7 %Low0.9-7.0[facility] Erythrocyte distribution width Auto (RBC) [Ratio]Ordered By: (Salma) Bello Marks on 55-03-3018Snpugxnnmvq distribution width (RBC) [Ratio]13.1 %11.0-15.[address] [facility] HospitalFine granular cast count in urine sediment by microscopy (number/low power field )Ordered By: (Salma) Bello Marks on 16-24-3718Gxoq Granular Casts LM.LPF (Urine sed) [#/Area]RAREMercy Health St. Joseph Warren HospitalGlobulin Calc (S) [Mass/Vol]Ordered By: (Salma) Bello Marks on 95-29-7350Blfumveb (S) [Mass/Vol]4.3 g/dLMercy Health St. [facility] Glomerular filtration rate (GFR) estimation in non- AmericanOrdered By: (Salma) Bello Marks on 02-58-7736NSH/1.73 sq M.predicted among non-blacks MDRD (S/P/Bld) [Vol rate/Area]mL/min/{1.73_m2}>=60 mL/min/1.73m 2FThe University of Toledo Medical CenterHematocrit Auto (Bld) [Volume fraction]Ordered By: (Salma) Bello Marks on 56-34-1044Hgjjlevbyc (Bld) [Volume fraction]32.5 %Low36.0-48.0[facility] HospitalHemoglobin [Mass/volume] in BloodOrdered By: (Salma) Bello Marks on 85-55-0518Bkuupsmdgr (Bld) [Mass/Vol]11.0 g/dLLow12.0-16.[address] [facility] HospitalLaboratory - Chemistry and Chemistry - challengeOrdered By: (Salma) Bello Marks on 05-29-8483Mopekyb [Mass/Vol]2.7 g/dLLow3.4-5.0[facility] HospitalALP [Catalytic activity/Vol]103 U/A71-453QcxjtoierMercy Health St. Joseph Warren HospitalALT [Catalytic activity/Vol]22 U/L 14-59[facility] HospitalAST [Catalytic activity/Vol]13 U/GItc60-[address] [facility] HospitalBilirubin [Mass/Vol]0.5 mg/dL0.2-1.0[facility] HospitalCalcium [Mass/Vol]8.7 mg/dL8.5-10.1FThe University of Toledo Medical CenterChloride [Moles/Vol]104 mmol/P70-940JvdjrlkhnMercy Health St. Joseph Warren HospitalCO2 [Moles/Vol]25.2 mmol/L21.0-32.0[facility] Creatinine [Mass/Vol]0.60 mg/dL0.55-1.02[facility] GFR/1.73 sq M.predicted MDRD (S/P/Bld) [Vol rate/Area]mL/min/{1.73_m2}>=60 mL/min/1.73m 2FThe University of Toledo Medical CenterGlucose [Mass/Vol]94 mg/fG60-[address] [facility] HospitalPotassium [Moles/Vol]3.6 mmol/L3.5-5.1FThe University of Toledo Medical CenterProtein [Mass/Vol]7.0 g/dL6.4-8.2FWood County Hospitalodium [Moles/Vol]137 mmol/Z116-960GoitegdzqMercy Health St. Joseph Warren HospitalUrea nitrogen [Mass/Vol]5.0 mg/dLLow7.0-18.0[facility] HospitalUrea nitrogen/Creatinine [Mass ratio]8.3 mg/mgMercy Health St. Joseph Warren HospitalBilirubin Ql (U)SMALLAbnormalNEGATIVEMercy Health St. [facility] Glucose (U) [Mass/Vol]NegativeNEGATIVEMercy Health St. Joseph [facility] HospitalKetones Ql (U)40 mg/dLAbnormalNEGATIVEMercy Health St. Joseph Warren HospitalpH (U)5.5 [pH] 5.0-9.0[facility] Hospital Companypecific gravity (U) [Rel density] >=1.652Qdwlusbm1.005-1.025[facility] HospitalUrobilinogen Qn (U) 2.0 {Nadege'U}/dLAbnormal0.2-1.0[facility] HospitalLaboratory - Hematology and Cell countsOrdered By: (Lucinda) Bello Marks on 26-98-3572Llmldomt granulocytes/100 WBC (Bld)0.7 %High0.0-0.5FThe [facility] of [facility] Center Laboratory - Specimen informationOrdered By: (Salma) Bello Marks on 08-29-2025 Appearance (U)CLEARCLEARFThe University of Toledo Medical CenterColor (U)YELLOWYELLOW [facility] HospitalLaboratory - UrinalysisOrdered By: (Salma) Bello Marks on 93-86-4613Xonsekoeg esterase Test strip Ql (U)NegativeNEGATIVE [facility] HospitalMucus Ql (Urine sed)SMALLAbnormalNONE SEEN [facility] HospitalNitrite Ql (U)NegativeNEGATIVEMercy Health St. Joseph [facility] HospitalProtein Ql (U)100 mg/dLAbnormalNEG/TRACEMercy Health St. Joseph [facility] HospitalLeukocytes [#/volume] corrected for nucleated erythrocytes in Blood by Automated counOrdered By: (Salma) Bello Marks on 44-44-6244IVL corrected for nucl RBC Auto (Bld) [#/Vol]8.7 10 3/uL4.0-11.[address] [facility] HospitalLymphocytes Auto (Bld) [#/Vol]Ordered By: (Salma) Bello Marks on 68-08-9915Zrmjeiagjrp (Bld) [#/Vol]1.9 10 3/uL1.2-3.[address] [facility] HospitalLymphocytes/100 WBC Auto (Bld)Ordered By: (Salma) Bello Marks on 82-84-5262Tobxeglylzb/100 WBC (Bld)21.7 %20.5-60.0 [facility] Auto (RBC) [Entitic mass]Ordered By: (Salma) Bello Marks on 64-67-8909ISB (RBC) [Entitic mass]30.1 pg26.7-34.[address] [facility] [facility] HospitalHC Auto (RBC) [Mass/Vol]Ordered By: (Salma) Bello Marks on 23-48-7262KABV (RBC) [Mass/Vol]33.8 g/dL29.9-35.2FThe University of Toledo Medical CenterMCV Auto (RBC) [Entitic vol]Ordered By: (Lucinda) Bello Marks on 97-84-4168VYI (RBC) [Entitic vol]88.8 fL81.0-99.0[facility] HospitalMonocytes Auto (Bld) [#/Vol]Ordered By: (Lucinda) Bello Marks on 10-24-7069Qfjmxdbtf (Bld) [#/Vol]0.8 10 3/uL0.3-0.8[facility] HospitalMonocytes/100 WBC Auto (Bld)Ordered By: (Lucinda) Bello Marks on 08-29-2025 Monocytes/100 WBC (Bld)8.6 %1.7-12.0[facility] HospitalNeutrophils Auto (Bld) [#/Vol]Ordered By: (Lucinda) Bello Marks on 89-90-7007Pcutidqmnst (Bld) [#/Vol]5.9 10 3/uL1.4-6.5FThe University of Toledo Medical CenterNeutrophils/100 WBC Auto (Bld)Ordered By: (Lucinda) Bello Marks on 09-72-1786Enclihhaptv/100 WBC (Bld)67.8 %43.0-75.0[facility] HospitalNo Panel InformationOrdered By: (Salma) Bello Marks on 08-38-0510Bpcksvxynhx # (Auto)0.1 10 3/uL0.0-0.[address] [facility] HospitalImmature Granulocyte # (Auto)0.06 10 3/uLHigh 0.00-0.03[facility] HospitalUrine BacteriaSMALL #/HPFAbnormalNONE [facility] CenterUrine Culture ReflexedYES-FROhio State Health SystemUrine Occult BloodNegativeNEGATIVEMercy Health St. Joseph Warren HospitalUrine Other CastsSEEN #/LPFAbnormalNONE [facility] CenterUrine Other CrystalsNone Seen #/HPFNone [facility] Hospital - AkronUrine RBC0-2 #/HPF0-2FThe University of Toledo Medical CenterUrine Squamous Epithelial CellsFEW #/LPFAbnormalNONE/RAREMercy Health St. Joseph Warren HospitalUrine WBC2-5 #/HPFAbnormalNONE SEENMercy Health St. [facility] Platelet mean volume Auto (Bld) [Entitic vol]Ordered By: (Lucinda) Bello Mally Marks on 97-13-6089Urrlcavh mean volume (Bld) [Entitic vol]11.4 fL9.5-13.5FThe University of Toledo Medical CenterPlatelets Auto (Bld) [#/Vol]Ordered By: (Lucinda) Bello Mally Tae on 49-16-0399Hfhvjmjyb (Bld) [#/Vol]201 10 3/oK374-701UgqgtekgtMercy Health St. Joseph Warren HospitalRBC Auto (Bld) [#/Vol]Ordered By: (Lucinda) Bello Mally Tae on 91-91-4227RBM (Bld) [#/Vol]3.66 10 6/uLLow4.20-5.40Reg[facility] Hospital Companyerum or plasma albumin/globulin mass ratioOrdered By: (Lucinda) Bello Marks on 61-53-3083Mtchqoc/Globulin [Mass ratio]0.6 {ratio}[facility] Hospital Companyerum or plasma anion gap determinationOrdered By: (Lucinda) Bello Marks on 17-60-0570Khvzt gap [Moles/Vol]11.4 mmol/LFThe University of Toledo Medical CenterUrine Cultureon 22-32-0945Oqnwmirj identified Cx Nom (U)Diagnosis: 23 WKS ; ABDOMINAL PAIN DIARRHEA Comment: 30,000 colonies/ml mixed bacterial skin contaminants 2 Days PERFORMED BY: [facility] [address] [place] [address] PATHOLOGIST OFFICE SUPPORT JORDAN ALCAZAR M.D.NormalThe Critical Access Hospital Physician GroupComment on above: Performed By: #### CUU #### [facility] [address] [place] [address] USABASIC METABOLIC PANELon 03-09-1411Efgbz gap [Moles/Vol]10 mmol/LNormal5-15[facility] Health FarmComment on above:Performed By: #### BMP #### [facility] [address] [place] [address] [place] [address] VIRCalcium [Mass/Vol]8.3 mg/dLLow8.5-10.5PTrinity Health System Twin City Medical CenterComment on above:Performed By: #### BMP #### [facility] ([address] [address] VIRChloride [Moles/Vol]103 mmol/GUosjjv63-838UqyXtfjcpMethodist Stone Oak HospitalComment on above:Performed By: #### BMP #### [facility] ([address] [address] VIRCO2 [Moles/Vol]21 mmol/WYal60-57QmeWxqlekTrinity Health System [facility] City [facility] Center Comment on above:Performed By: #### BMP #### [facility] ([address] [address] VIRCreatinine [Mass/Vol]0.53 mg/dLNormal0.40-1.00ProMethodist Stone Oak HospitalComment on above:Result Comment: METHOD TRACEABLE TO IDMS STANDARDPerformed By: #### BMP #### [facility] ([address] [address] VIREGFR (CKD-EPI) NON-RACE DEPENDENT>^90Normal>=60ProMethodist Stone Oak HospitalComment on above:Result Comment: eGFR not reported due to non- numeric value for Creatinine. Reported eGFR is based on the CKD-EPI 2021 equation that does not use a race coefficient.Performed By: #### BMP #### [facility] [facility] ([address] [address] VIRGlucose [Mass/Vol]101 mg/gYByok99-99IqdZipugjMethodist Stone Oak HospitalComment on above:Performed By: #### BMP #### [facility] ([address] [address] VIRPotassium [Moles/Vol]3.7 mmol/LNormal3.5-5.0ProMethodist Stone Oak HospitalComment on above:Performed By: #### BMP #### [facility] ([address] [place] [address] VIRSodium [Moles/Vol]134 mmol/ORvxgyl837-608AleWntpof Fremont HospitalComment on above:Performed By: #### BMP #### [facility] ([address] [place] [address] VIRUrea nitrogen [Mass/Vol]5 mg/dLNormal5-23ProMethodist Stone Oak HospitalComment on above:Performed By: #### BMP #### [facility] ([address] [place] [address] VIRCBC (NO DIFF)on 77-34-0570Yvpylrodqkn distribution width (RBC) [Ratio]13.5 %Ewmqbf58.5-15Doctors HospitalComment on above: Performed By: #### CBC #### [facility] ([address] [address] VIRHematocrit (Bld) [Volume fraction]31.2 %Ifq26-23IzdJjreqxMethodist Stone Oak HospitalComment on above:Performed By: #### CBC #### [facility] ([address] [place] [address] VIRHemoglobin (Bld) [Mass/Vol]10.6 g/dLLow11.7-15.5ProMedica Hassler Health FarmComment on above:Performed By: #### CBC #### [facility] ([address] [address] VIRMCH (RBC) [Entitic mass]29.2 ngUgisfe58-97VrlUbdtfkMethodist Stone Oak HospitalComment on above:Performed By: #### CBC #### [facility] ([address] [place] [address] VIRMCHC (RBC) [Mass/Vol]33.8 g/nUDhfmue09-82MrdFlafsjMethodist Stone Oak HospitalComment on above:Performed By: #### CBC #### [facility] ([address] [place] [address] VIRMCV (RBC) [Entitic vol]86 qAAnwbdc02-153WszJqfvtq [place]ont HospitalComment on above:Performed By: #### CBC #### [facility] ([address] [place] [address] VIRPlatelet mean volume (Bld) [Entitic vol]9.[address]7-12 [facility] HospitalComment on above:Performed By: #### CBC #### [facility] ([address] [place] [address] VIRPlatelets (Bld) [#/Vol]186 10*3/sDMmxing594-543FmrAhkpdv [facility]ont HospitalComment on above:Performed By: #### CBC #### [facility] ([address] [place] [address] VIRRBC COUNT3.62 X10^12/LLow3.8-5.2PTrinity Health [facility] Comment on above:Performed By: #### CBC #### [facility] ([address] [place] [address] VIRWBC (Bld) [#/Vol]8.9 10*3/uLNormal4-11ProMethodist Stone Oak HospitalComment on above:Performed By: #### CBC #### [facility] ([address] [address] VIRURINALYSISon 68-30-7565Kaiqhfbtf sediment LM Ql (Urine sed) PresentAbnormalNonMemorial Health System Marietta Memorial HospitalComment on above:Performed By: #### UA #### [facility] ([address] [place] [address] VIRBilirubin Ql (U)NegativeNormalNegativeProTogus Va Medical Center HospitalComment on above:Performed By: #### UA #### [facility] ([facility]) [address] [place] [address] [place] [address] VIRBLOOD/HGBNegativeNormalNegativeDoctors Hospital Comment on above:Performed By: #### UA #### [facility] ([facility]) [address] [place] [address] [place] [address] VIRColor (U)YellowNormalYellowDoctors Hospital Comment on above:Performed By: #### UA #### [facility] ([address] [place] [address] VIRGlucose Ql (U)NegativeNormalNegative, 250 mg/dLDoctors HospitalComment on above:Performed By: #### UA #### [facility] ([address] [place] [address] VIRKetones Ql (U)NegativeNormalNegativeDoctors HospitalComment on above:Performed By: #### UA #### [facility] ([address] [place] [address] VIRLeukocyte esterase Test strip Ql (U)NegativeNormalNegative Doctors HospitalComment on above:Performed By: #### UA #### [facility] ([address] [place] [address] VIRNitrite Ql (U)NegativeNormalNegativeDoctors HospitalComment on above:Performed By: #### UA #### [facility] ([address] [place] [address] VIRPH,URINE7.0Cassgv1.0-8.5ProMedica Hassler Health FarmComment on above:Performed By: #### UA #### [facility] ([address] [place] [address] VIRProtein Ql (U)TraceAbnormalNegativeDoctors HospitalComment on above:Performed By: #### UA #### [facility] ([address] [place] [address] VIRSpecific gravity (U) [Rel density]1.291Ybjsbq5.003-1.035 Doctors HospitalComment on above:Performed By: #### UA #### [facility] ([address] [place] [address] VIRSQUAMOUS WVKURPDKAZ4Abrzxw5-6JrbDflzfq [facility] Comment on above:Performed By: #### UA #### [facility] ([address] [address] VIRTURBIDITYHazyAbnormalClearPTrinity Health System Twin City Medical CenterComment on above:Performed By: #### UA #### [facility] ([address] [place] [address] VIRUROBILINOGEN>=8.0 eu/dLAbnormal0.2 eu/dL, 1.0 eu/dL Doctors HospitalComment on above:Performed By: #### UA #### [facility] ([address] [address] VIRUS OB 14+ WEEKS ANATOMY SCANon 52-57-2247UD OB 14+ WEEKS ANATOMY SCANFINDINGS: A single, [...] Delivery: 12/26/25 Gestational Age as of 08/02/2025: 16h9wCQX,APTIMA HPV,AGE GDLNon 63-85-9722VGY GDLN ACOG TESTINGNote.NOMS HealthcareComment on above:TESTS RESULT FLAG UNITS REF RANGE LAB Clinician Provided Cytology Information Source.............Endocervix Other.............. No. of containers..01 ThinPrep Vial Age Samo MELANY Mela... -17 11 FLAG LEGEND: L-Low Normal,H-High Normal,LL-Alert Low,HH-Alert High <-Panic Low,>-Panic High,A-Abnormal,AA-Critical Abnormal Performed at: 01 =G [address] [address] Aleida Colon MD, IGP, RFX APTIMA HPV ASCUNote.[facility] Corey HospitalComment on above:TESTS RESULT FLAG UNITS REF RANGE LAB DIAGNOSIS: 02 NEGATIVE FOR INTRAEPITHELIAL LESION OR MALIGNANCY. Specimen adequacy: 02 Satisfactory for evaluation. No endocervical component is identified. An endocervical component is not commonly seen in the patient. Performed by: 02 Cynthia Smith [employer] Engine Mechanic ([facility]) . 02 Note: Note 02 The Pap [...] ThinPrep(R) pap test was interpreted using the [employer](R) Uzabase(TM) Cervical Algorithm whole slide imaging system. . 02 The HPV DNA reflex criteria were not met with this specimen result therefore, no HPV testing was performed. FLAG LEGEND: L-Low Normal,H-High Normal,LL-Alert Low,HH-Alert High <-Panic Low,>-Panic High,A-Abnormal,AA-Critical Abnormal Performed at: 02 [facility] [address] [place] [address] Aleida Colon MD, Performed at: =G - [facility] [address], [place] [id number] Revenue Field Agent: Aleida Colon MD, Phone: [phone] Performed at: [facility] [address] [place], [place] [address] Revenue Field Agent: Aleida Colon MD, Phone: [phone] SPATULA-ALONE ENDOCERVIX [facility] HealthcareAFP, SERUM, OPEN SPINA BIFIDAon 82-93-2333RTO MOM1.07. N[facility]S HealthcareAFP VALUE31.7 ng/mL.NOMS HealthcareCOMMENT:Comment.[facility] HealthcareComment on above:Caitlin Palafox, Ph.D., [facility] Director References: Available Upon Request. Multiples Of Median Cutoffs For AFP Elevations Caro 2.5 Black 2.8 IDD 2.0 Twins 4.5 Abbreviation Definitions IDD - Insulin Dep Diabetes OSBR - Open Spina Bifida Risk For further inquiries contact [employer] at [phone]. This test was developed and its performance characteristics determined by [employer]. It has not been cleared or approved by the Food and Drug Administration. Performed at: [facility] [address] [place], [place] [id number] Revenue Field Agent: Leonidas Oneill [facility], Phone: [phone] GEST. AGE ON COLLECTION DATE18.0. weeksMercy McCune-Brooks HospitalGESTAT. AGE BASED ON Ultrasound.[facility] HealthcareComment on above:15.1 on 07/05/2025 Recalculations are not recommended when gestational dating by LMP and ultrasound are within 10 days. INSULIN DEP DIABETESNo.NOMS HealthcareINTERPRETATIONComment.[facility] Healthcare Comment on above:Interpretation: Screen Negative [...] Customer Services to discuss available options. The [employer] recommends amniocentesis be offered to women age 35 and older. MATERNAL AGE AT EDD25.1. yrNOSD HealthcareMULTIPLE GESTATIONNo.[facility] OSBR RISK 1 [id number].NOMS HealthcareRACECaucasian.NOMS HealthcareRESULTSReport. NOMS HealthcareTEST RESULTS:Negative.[facility] LarbjssmavNBAWFC616. lbsNOMS HealthcarePREGNANCY N N ULTRASOUND [id number] 1 15 N 1 Y 285 N N N N N White/ CLINISYNCNOMS HealthcareRECURRENT VAGINITIS (HTRX)on 62-83-6198BMHVMNLCM VAGINAE 0NOMS HealthcareATOPOBIUM VAGINAENot detectedNOMS HealthcareBVAB 2,3 (BACTERIAL VAGINOSIS ASSOCIATED BACTERIA 2, 3); MOBILUNCUS SGV6LIHS HealthcareBVAB 2,3 (BACTERIAL VAGINOSIS ASSOCIATED BACTERIA 2, 3); MOBILUNCUS SPPNot detectedNOMS HealthcareCANDIDA ALBICANS, PARAPSILOSIS, KIIHIIZMAY3BRGP HealthcareCANDIDA ALBICANS, PARAPSILOSIS, TROPICALISNot detectedNOMS HealthcareCANDIDA GLABRATA0 NOMS HealthcareCANDIDA GLABRATANot detectedNOMS HealthcareCANDIDA BWRLIQ8EBHR HealthcareCANDIDA KRUSEINot detectedNOMS HealthcareCHLAMYDIA ZLZTMIWSPZW1UPZA HealthcareCHLAMYDIA TRACHOMATISNot detectedNOMS HealthcareGARDNERELLA VAGINALIS 31.049AbnormalNOMS HealthcareGARDNERELLA VAGINALISDetectedAbnormalNOMS HealthcareInterpretation and review of laboratory resultsAbnormalNOMS Healthcare MEGASPHAERA (TYPES 1, 2)0NOMS HealthcareMEGASPHAERA (TYPES 1, 2)Not detectedNOMS HealthcareMYCOPLASMA GVOHWHIKGD8XZAW HealthcareMYCOPLASMA GENITALIUMNot detected NOMS HealthcareNEISSERIA YYOIVHNTGUN0AWSV HealthcareNEISSERIA GONORRHOEAENot detectedNOMS HealthcareTET B, TET M23.864AbnormalNOMS HealthcareTET B, TET M DetectedAbnormalNOSD HealthcareTRICHOMONAS XFHUEXYCH7BKUW HealthcareTRICHOMONAS VAGINALISNot detectedNOMS HealthcareNOMS HealthcareUrinalysis macro (dipstick) panel (U)on 38-59-2679Mrowrcpil, UANegativeNegative - 4(70) +++ mg/dLNOMS HealthcareBlood, UAPositiveNegative - 50 Lincoln/mcLNOMS HealthcareClarity, UAClear NOMS HealthcareColor, UAYellowNOMS HealthcareGlucose, UANegativeNegative - 1999(110) ++++ mg/dLGARFIELD MEMORIAL [facility]OSPITAL HealthcareInterpretation and review of laboratory resultsAbnormalGARFIELD [facility] HealthcareKetones, UANegativeNegative - 160(16) ++++ mg/dL NOMS HealthcareLeukocytes, UANegativeNegative - 500+++ Skyler/mcLNOSD Healthcare Nitrite, UANegativeNegative - PositiveNOSD HealthcarepH, UA65 - 9NOSD Healthcare Protein, UANegativeNegative - 1999(20) ++++ mg/dLGARFIELD MEMORIAL [facility]OSPITAL HealthcareSpec Grav, UA 1.0151 - 1.03NOSD HealthcareUrobilinogen, UA1.00.2 - 12 mg/dLBarnes-Jewish West [facility] HealthcareALL THYROID STIM HORMONEon 34-22-7143OUH Qn2.104 m[IU]/LNOMS HealthcareCLINISYNCNOMS HealthcareBOX TESTon 55-57-4064CUO TEST SENT OUTYESMercy McCune-Brooks HospitalOebagxgpjlDRA5TYMMVQVRD GszicbofcbBKY13/03/13NOGeneral Leonard Wood Army Community HospitalCLINISYNCarolina Center for Behavioral HealthHCG ( test) Ql (U)on 09-25-6811Ffxekquvcvldfy and review of laboratory resultsAbnormUniversal Health ServicesPreg Test, UrPositiveNegativeNOMercy Hospital St. John's HealthcareUS OB TRANSVAGINALon 80-62-1711TT OB TRANSVAGINAL FINDINGS: A single intrauterine gestational [...] No LMP recorded.Urinalysis macro (dipstick) panel (U)on 59-87-5874Nkktpmcna, UA NegativeNegative - 4(70) +++ mg/dLNOMS HealthcareBlood, UANegativeNegative - 50 Lincoln/mcLNOSD HealthcareClarity, UAClearNOMS HealthcareColor, UAYellowNOMS HealthcareGlucose, UANegativeNegative - 2000(110) ++++ mg/dLNOSD Healthcare Interpretation and review of laboratory resultsAbnormalNOSD HealthcareKetones, UANegativeNegative - 160(16) ++++ mg/dLGARFIELD MEMORIAL [facility]OSPITAL HealthcareLeukocytes, UANegative Negative - 500+++ Skyler/mcLNOSD HealthcareNitrite, UANegativeNegative - Positive NOMS HealthcarepH, UA75 - 9NOMS HealthcareProtein, UATraceNegative - 2000(20) ++++ mg/dLNOSD HealthcareSpec Grav, UA1.0251 - 1.03NOMS HealthcareUrobilinogen, UA1.00.2 - 12 mg/dLNOMercy Hospital St. John's HealthcarePOCT NURSING URINE MACROSCOPIC UAon 00-98-1287RXMVUQYKN NURNegativeNoformerly park ridge healthNegSelect Medical [facility] [place] Comment on above:Performed By: #### NUM #### [facility] ([address] [address] VIRBLOOD/HGB NURTraceAbnormalNegativeDoctors HospitalComment on above:Performed By: #### NUM #### [facility] ([address] [address] VIRGLUCOSE NURNegativeNoalNegativeDoctors Hospital Comment on above:Performed By: #### NUM #### [facility] ([address] [address] VIRKETONES NURNegativeNormalNegativeDoctors Hospital Comment on above:Performed By: #### NUM #### [facility] ([address] [address] VIRLEUKOCYTE ESTERASE NURNegativeNormalNegativeDoctors HospitalComment on above:Performed By: #### NUM #### [facility] ([address] [address] VIRNITRITE NURNegativeNormalNegativeDoctors Hospital Comment on above:Performed By: #### NUM #### [facility] ([address] [address] VIRPH NUR6.6Frupac1.0, 6.0, 6.5, 7.0, 7.5, 8.0, 8.5, 5.5 Doctors HospitalComment on above:Performed By: #### NUM #### [facility] ([address] [address] VIRPROTEIN DLQ869 mg/dLAbnormalNegativeDoctors HospitalComment on above:Performed By: #### NUM #### [address] [address] VIRSPECIFIC GRAVITY MOLLY>=1.877Fdmuverm5.010, 1.015, 1.020, 1.025Doctors HospitalComment on above:Performed By: #### NUM #### [facility] ([address] [address] VIRUROBILINOGEN NUR0.2 E.U./dLSaint Louis University HospitalalDoctors Hospital Comment on above:Performed By: #### NUM #### [facility] ([address] [address] VIRPOCT , URINE (NUCG)on 57-48-0475Pejv HCG ( test) Ql (U)PositiveAbnormalNegative, IndeterminateDoctors HospitalComment on above:Performed By: #### NUCG #### [facility] ([address] [address] VIRALL THYROID STIM HORMONEon 39-08-9482Txgkrpudaoazqy and review of laboratory resultsAbnoWills Eye Hospital Qn5.935 m[IU]/[facility] Mary Medical CenterINISYNWORCESTER COUNTY HOSPITAL HealthcareHCG ( test) Ql (U)on 01-17-2025 Interpretation and review of laboratory resultsNormalNO Corey HospitalPreg Test, UrNegativeNegativeCESAR Formerly [facility] Carolina HospitalLon 01-17-2025L Specimen: [id number] Received: 01/18/25 Status: GHAZAL Parminder Num: [id number] Spec Type: Surgical Subm Dr: Jefferson Howard Tissues: A Endocervix - Biopsy (ENDOCERVIX) Endocervix - Curettings Procedures: TESSIE/Day Olivarez/Elvin Huggins Age/ Patient Sex Location Account Attending Physician Jes Romero 24/ LABELL [id number] Jefferson Howard SPEC NUM: [id number] RECD: 01/18/25 STATUS: GHAZAL JEROME NUM: [id number] JUDIT: 01/17/25-[address]: Jefferson Howard ENTERED: 01/18/25-1399 [facility] DR: Emma,Lab SPEC TYPE: Surgical DEPT: LUCAS MAR ENTERED BY: [id number] RECV BY: [id number] ORDERED: HE/2, Gross/Micro L4 ORDERED: HE/2, Gross/Micro [...] submitted in a single cassette. (1, ns, [id number]) Microscopic Description Microscopic examination is performed Specimen: [id number] Received: 01/18/25 Status: GHAZAL Jerome Num: [id number] Spec Type: Surgical Subm Dr: Jefferson Howard Tissues: A Endocervix - Biopsy (ENDOCERVIX) Endocervix - Curettings Procedures: HE/2, Gross/Micro L4 Patient: Jes Romero [id number] (Continued) Specimen: [id number] Received: 01/18/25 (Continued) Signed (signature on file) Lizabeth Diggs MD 01/19/25 1541 Specimen: [id number] Received: 01/18/25 Status: GHAZAL Jerome Num: [id number] Spec Type: Surgical Subm Dr: Jefferson Howard Tissues: A Endocervix - Biopsy (ENDOCERVIX) Endocervix - Curettings Procedures: Day MEDELLIN/Elvin L4 Patient: Jes Romero [id number] (Continued) Specimen: [id number] Received: 01/18/25 (Continued) CPT Codes 67576 Specimen: [id number] Received: 01/18/25 Status: GHAZAL Jerome Num: [id number] Spec Type: Surgical Subm Dr: Jefferson Howard Tissues: A Endocervix - Biopsy (ENDOCERVIX) Endocervix - Curettings Procedures: TESSIE/Day Olivarez/Elvin L4 Patient: Jes Romero [id number] (Continued) Signed (signature on file) Brian-Shaheen Diggs MD 01/19/[address] [place] [address] Physician GroupUrinalysis macro (dipstick) panel (U)on 82-31-2530Yqdliedcm, UANegativeNegative - 4(70) +++ mg/dLNOMS HealthcareBlood, UANegativeNegative [...] mg/dLNOMS HealthcareNOMS HealthcareUS PELVIC COMPLETE W/ TVon 58-79-1957XD PELVIC COMPLETE W/ TVEXAM: US PELVIC COMPLETE [...] II, MD, PHD at 13-Jan-2025 11:16:36 PM [facility] TeleradiologyNormalNot AvailableComment on above:Order Comment: US PELVIS-TRANSVAG IF INDICATED No LMP recorded.Urine Cultureon 17-59-8220Enycujvh identified Cx Nom (U)15,000 colonies/ml mixed bacterial skin contaminants 2 Days PERFORMED BY: [place] [address] PATHOLOGIST OFFICE SUPPORT BRUCE CALI M.D.NormalThe Critical Access Hospital Physician GroupComment on above: Performed By: #### CUU #### [facility] [address] [place] [address] USAUrine cultureOrdered By: Krishna Saxena on 01-03-2025 Bacteria identified Cx Nom (U)Urine cultureMercy Health St. [facility] IGP,APTIMA HPV,AGE GDLNon 04-28-2456HLL GDLN ACOG TESTINGNote.[facility] Comment on above:TESTS RESULT FLAG UNITS REF RANGE LAB Clinician Provided Cytology Information Source.............Cervix;Endocervix No. of containers..01 ThinPrep Vial Age Algo ACOG Mela... -17 11 FLAG LEGEND: L-Low Normal,H-High Normal,LL-Alert Low,HH-Alert High <-Panic Low,>-Panic High,A-Abnormal,AA-Critical Abnormal Performed at: 01 =G [facility] [place] [address] Aleida Colon MD, IGP, RFX APTIMA HPV ASCUNoteAbnormal.NOMS HealthcareComment on above:TESTS RESULT FLAG UNITS REF RANGE LAB DIAGNOSIS: [A] 02 EPITHELIAL CELL ABNORMALITY. LOW GRADE SQUAMOUS INTRAEPITHELIAL LESION (LSIL). Specimen adequacy: 02 Satisfactory for evaluation. Endocervical and/or squamous metaplastic cells (endocervical component) are present. Performed by: 02 Cynthia Smith, Refrigerator Mover (ASCP) Electronically si... 02 Johanne Desir MD, [...] <-Panic Low,>-Panic High,A-Abnormal,AA-Critical Abnormal Performed at: [address] [address] Aleida Colno MD, Performed at: = - [facility] [id number] Revenue Field Agent: Aleida Colon MD, Phone: [phone] Performed at: [facility] [address] [id number] Revenue Field Agent: Aleida Colon MD, Phone: [phone] Interpretation and review of laboratory resultsAbnoLower Bucks Hospital BRUSH-SPATULA CERVIX ENDOCERVIX CLINISYBaptist Restorative Care HospitalInsertion/Removal of Contraceptive Capsuleon 12-02-2024 Pilar Collins [...] closed with steri-strips and pressure bandage applied: [facility] HospitalUS PELVIC COMPLETE W/ TVon 42-95-2728XG PELVIC COMPLETE W/ TVEXAM: US PELVIC COMPLETE [...] II, MD, PHD at 03-Dec-2024 08:37:11 AM [facility] TeleradiologyNormalNot AvailableComment on above:Order Comment: US PELVIS-TRANSVAG IF INDICATED No LMP recorded.ALL CBC WITH AUTO DIFFon 13-63-7088AELLSGWFV ABSOLUTE AUTO0.1 NOMS HealthcareBasophils/100 WBC (Bld)0.6 %0.2 - 2.0 %[facility] Eosinophils/100 WBC (Bld)2.6 %0.9 - 7.0 %[facility] HealthcareErythrocyte distribution width (RBC) [Ratio]13.2 %11.0 - 15.0 %[facility] HealthcareHematocrit (Bld) [Volume fraction]38.2 %36.0 - 48.0 %[facility]-Brooks HospitalHemoglobin (Bld) [Mass/Vol]12.4 g/dL 12.0 - 16.0 g/dLNOGeneral Leonard Wood Army Community HospitalIMMATURE GRANULOCYTES ABS AUTO0.04HighNOSD HealthcareImmature granulocytes/100 WBC (Bld)0.4 %0.0 - 0.5 %[facility] Interpretation and review of laboratory resultsAbnormalNOSD Healthcare LYMPHOCYTES ABSOLUTE AUTO3.4NOGeneral Leonard Wood Army Community HospitalLymphocytes/100 WBC (Bld)34.8 %20.5 - 60.0 %[facility]oks HospitalMCH (RBC) [Entitic mass]28.3 pg26.7 - 34.0 pgNOCarondelet HealthHC (RBC) [Mass/Vol]32.5 g/dL29.9 - 35.2 g/dLNOSD HealthcareMCV (RBC) [Entitic vol]87.2 fL81.0 - 99.0 fLNOMS HealthcareMONOCYTES ABSOLUTE AUTO0.7NOMS HealthcareMonocytes/100 WBC (Bld)7.2 %1.7 - 12.0 %[facility] HealthcareNEUTROPHILS ABSOLUTE AUTO5.4NOMS HealthcareNeutrophils/100 WBC (Bld)54.4 %43.0 - 75.0 %[facility] HealthcarePlatelet mean volume (Bld) [Entitic vol]10 fL9.5 - 13.5 fLNOMS HealthcareTBH EO #0.3NOMS HealthcareTBH [id number] HealthcareTBH RBC4.38NOMS HealthcareTBH WBC9.9NOMS HealthcareCLINISYNCNOMS HealthcareHCG ( test) IA.rapid Ql (U)Ordered By: Mir Silva on 85-34-4897DUY ( test) Ql (U)Urine human chorionic gonadotropin (hCG) detection by immunoassayMercy Health St. Joseph Warren HospitalHC,Urineon 64-49-0400Fefa HCG ( test) Ql (U) NegativeNoSelect Specialty Hospital - Durham Physician GroupComment on above:Result Comment: PERFORMED BY: [address] [place] [id number] PATHOLOGIST OFFICE SUPPORT BRUCE CALI M.D.Performed By: #### UHCG #### [place] [id number] USALon 09-07-2024L Specimen: [id number] Received: 09/07/24 Status: GHAZAL Jerome Num: [id number] Spec Type: Surgical Subm Dr: Mir Silva MD Tissues: A Small Intestine - Biopsy/Polyp (SMALL BOWEL BX R/O CELIAC) Procedures: HE/2, Gross/Micro L4 Age/ Patient Sex Location Account Attending Physician Jes Romero / [id number] Mir Silva MD SPEC NUM: [id number] RECD: 09/07/24 STATUS: GHAZAL JEROME NUM: [id number] JUDIT: 09/07/24 [facility] [address]: Mir Silva MD ENTERED: 09/07/[address]: SPEC TYPE: Surgical DEPT: S ENTERED BY: [id number] RECV BY: [id number] ORDERED: HE/2, Gross/Micro L4 ORDERED: HE/2, Gross/Micro [...] submitted in a single cassette. (1, ns, [id number]) Microscopic Description Microscopic examination is performed. CPT Codes 64406 Specimen: [id number] Received: 09/07/24 Status: GHAZAL Jerome Num: [id number] Spec Type: Surgical Subm Dr: Mir Silva MD Tissues: A Small Intestine - Biopsy/Polyp (SMALL BOWEL BX R/O CELIAC) Procedures: HE/2, Gross/Micro L4 Patient: Jes Romero [id number] (Continued) Signed (signature on file) Roberth Martinez MD 09/08/24 1012Noal [facility] Physician GroupKNOX COUNTY H[facility]ITAL AND AUTO DIFFon 59-33-9588EHBXHLUU BASOPHIL0.0 X10E9/LNormal0.0-0.2PTrinity Health System Twin City Medical CenterComment on above:Performed By: #### MARLENE CBCA #### [facility] ([id number]) [address] [place] [id number] NEUTROPHIL3.8 X10E9/LNormal1.5-6.6Doctors HospitalComment on above:Performed By: #### CMP, CBCA #### [facility] ([id number]) [address] [place] [address] [id number]/100 WBC (Bld)0.3 %[facility] Comment on above:Performed By: #### MARLENE CBCA #### [facility] ([id number]) [address] [place] [address] [id number] (Bld) [#/Vol]0.0 10*3/uLNormal0.0-0.4Doctors HospitalComment on above:Performed By: #### CMP, CBCA #### [facility] ([id number]) [address] [place] [address] 33085Znscpmmjkna/100 WBC (Bld)0.8 %[facility] Comment on above:Performed By: #### CMP, CBCA #### [facility] ([id number]) [address] [place] [address] 23926Pmlhxsjrivu distribution width (RBC) [Ratio]14.5 %Normal 11.5-15.0Doctors HospitalComment on above:Performed By: #### CMP, CBCA #### [facility] ([id number]) [address] [place] [address] 23292Qrqnjfmdum (Bld) [Volume fraction]38.8 %Btvbor88-29BtiLddcumMethodist Stone Oak HospitalComment on above:Performed By: #### CMP, CBCA #### [facility] ([id number]) [address] [place] [address] 28388Rpngpfhwgj (Bld) [Mass/Vol]13.0 g/aBKctlnz79.7-15.5PTrinity Health System Twin City Medical CenterComment on above:Performed By: #### CMP, CBCA #### [facility] ([id number]) [address] [place] [address] 58735Ysolyhtyrfj (Bld) [#/Vol]0.5 10*3/uLLow1.0-3.5PTrinity Health System Twin City Medical CenterComment on above:Performed By: #### CMP, CBCA #### [facility] ([id number]) [address] [place] [address] 57538Fvnqaotmseu/100 WBC (Bld)11.5 %NormalDoctors Hospital Comment on above:Performed By: #### CMP, CBCA #### [facility] ([id number]) [address] [place] [address] 51749IYY (RBC) [Entitic mass]28.6 ojRbcwkw51-97WxpHlmzrnMethodist Stone Oak HospitalComment on above:Performed By: #### CMP, CBCA #### [facility] ([id number]) [address] [place] [address] 72171MBEE (RBC) [Mass/Vol]33.5 g/mXKzqjve47-22MyrVmnlbmMethodist Stone Oak HospitalComment on above:Performed By: #### CMP, CBCA #### [facility] ([id number]) [address] [place] [address] 77645XAJ (RBC) [Entitic vol]85 fENowcjn83-772MsfBsuzpdDoctors HospitalComment on above:Performed By: #### CMP, CBCA #### [facility] ([id number]) [address] [place] [address] 61718Zlbozgomx (Bld) [#/Vol]0.2 10*3/uLNormal0-0.9Doctors HospitalComment on above:Performed By: #### CMP, CBCA #### [facility] ([id number]) [address] [place] [address] 92343Rsfztinxg/100 WBC (Bld)5.1 %[facility] Comment on above:Performed By: #### CMP, CBCA #### [facility] ([id number]) [address] [place] [address] 25740Texpleadmte/100 WBC (Bld)82.3 %[facility] Comment on above:Performed By: #### CMP, CBCA #### [facility] ([id number]) [address] [place] [address] 32651Xstifhwg mean volume (Bld) [Entitic vol]8.6 fLNormal7-12 Doctors HospitalComment on above:Performed By: #### CMP, CBCA #### [facility] ([id number]) [address] [place] [address] 51465Zxemzzdzt (Bld) [#/Vol]225 10*3/yZTtxilw253-746OnoLvpeks Fremont HospitalComment on above:Performed By: #### CMP, CBCA #### [facility] ([id number]) [address] [place] [address] 27406COG COUNT4.55 X10E12/LNormal3.80-5.20[facility] Comment on above:Performed By: #### MARLENE, CBCA #### [facility] ([id number]) [address] [place] [address] 54832IHS (Bld) [#/Vol]4.6 10*3/uLNormal4.0-11.0ProMethodist Stone Oak HospitalComment on above:Performed By: #### CMP, CBCA #### [facility] ([id number]) [address] [place] [address] 44960BUITIIFDAGOXT METABOLIC PANELon 01-71-8568Krhkzzl [Mass/Vol]3.6 g/dLNormal3.2-5.3PTrinity Health System Twin City Medical CenterComment on above:Performed By: #### CMP, CBCA #### [facility] ([id number]) [address] [place] [address], [place] [address]FLT [Catalytic activity/Vol]65 U/VMibeax98-096HxxSxyhmoMethodist Stone Oak HospitalComment on above:Performed By: #### CMP, CBCA #### [facility] ([id number]) [address] [place] [address], [place] [address]QMX [Catalytic activity/Vol]29 U/LNormal0-31PTrinity Health System Twin City Medical CenterComment on above:Performed By: #### CMP, CBCA #### [facility] ([id number]) [address] [place] [address], [place] [address]Troix gap [Moles/Vol]10 mmol/LNormal5-15ProMethodist Stone Oak HospitalComment on above:Performed By: #### CMP, CBCA #### [facility] ([id number]) [address] [place] [address], [place] [address]DOY [Catalytic activity/Vol]36 U/LNormal0-41ProMethodist Stone Oak HospitalComment on above:Performed By: #### CMP, CBCA #### [facility] ([id number]) [address] [place] [address], [place] [address]Wzbgjjyyh [Mass/Vol]0.9 mg/dLNormal0.3-1.2PTrinity Health System Twin City Medical CenterComment on above:Performed By: #### MARLENE, CBCA #### [facility] ([id number]) [address] [place] [address], [place] [address]Yutmmsl [Mass/Vol]8.3 mg/dLLow8.5-10.5PTrinity Health System Twin City Medical CenterComment on above:Performed By: #### MARLENE, CBCA #### [facility] ([id number]) [address] [place] [address], [place] [address]Splnafes [Moles/Vol]103 mmol/IBubgpb41-397DviEzhqrdMethodist Stone Oak HospitalComment on above:Performed By: #### MARLENE CBCA #### [facility] ([id number]) [address] [place] [address], [place] [address]XB5 [Moles/Vol]22 mmol/PUsdcga53-27HfvBgrvnnTrinity Health System Twin City Medical Center Comment on above:Performed By: #### MARLENE, CBCA #### [facility] ([id number]) [address] [place] [address], [place] [address]Bojoqqcuxe [Mass/Vol]0.72 mg/dLNormal0.40-1.00ProMethodist Stone Oak HospitalComment on above:Result Comment: METHOD TRACEABLE TO IDMS STANDARD Performed By: #### MARLENE, CBCA #### [facility] ([id number]) [address] [place] [address], [place] [address]bZEX (CKD-EPI) NON-RACE DEPENDENT>90Normal>59ProMethodist Stone Oak HospitalComment on above:Result Comment: Reported eGFR is based on the CKD-EPI 2020 equation that does not use a race coefficient.Performed By: #### MARLENE, CBCA #### [facility] ([id number]) [address] [place] [address] 52012Euadlwf [Mass/Vol]103 mg/gSPooh80-94HxjVynpxrMethodist Stone Oak Hospital Comment on above:Performed By: #### CMP, CBCA #### [facility] ([id number]) [address] [place] [address] 31790Qngtrirgg [Moles/Vol]3.5 mmol/LNormal3.5-5.0ProMethodist Stone Oak HospitalComment on above:Performed By: #### CMP, CBCA #### [facility] ([id number]) [address] [place] [address] 78479Tpxrroa [Mass/Vol]6.9 g/dLNormal6.0-8.0ProMethodist Stone Oak HospitalComment on above:Performed By: #### CMP, CBCA #### [facility] ([id number]) [address] [place] [address]35[address]Ooyfan [Moles/Vol]135 mmol/YZjahdv507-486BneSbloyw Fremont HospitalComment on above:Performed By: #### CMP, CBCA #### [facility] ([id number]) [address] [place] [address] 33537Rnke nitrogen [Mass/Vol]16 mg/dLNormal5-23ProMethodist Stone Oak HospitalComment on above:Performed By: #### CMP, CBCA #### [facility] ([id number]) [address] [place] [address] 75620CD ABDOMEN AND PELVIS W CONTon 83-71-5385KB ABDOMEN AND PELVIS W CONTCT ABDOMEN AND [...] Huang Burleson MD on 08/28/2024 8:12 PMNormalProMethodist Stone Oak HospitalHCG ( test) Ql (U)on 59-30-1969Vywe HCG ( test) Ql (U) NegativeNormalNEGDoctors HospitalComment on above:Performed By: #### 2106-3 #### [facility] ([id number]) [address] [place] [address] 60780NOQ MACROSCOPIC NURon 55-88-7552IOXSENZTA NURSmallAbnormalNEG Pro[facility] Hassler Health FarmComment on above:Performed By: #### NUM #### [facility] ([id number]) [address] [place] [address] 09976AHDJW/HGB NURNegativeNormalNEGProMethodist Stone Oak HospitalComment on above:Performed By: #### NUM #### [facility] ([id number]) [address] [place] [address] 03589DPEXOGW NURNegativeNormalNEGProMethodist Stone Oak HospitalComment on above:Performed By: #### NUM #### [facility] ([id number]) [address] [place] [address], [place] [address]LXXYBRD NURNegativeNormalNEGProMethodist Stone Oak HospitalComment on above:Performed By: #### NUM #### [facility] ([id number]) [address] [place] [address], [place] [address]OOEKXXGKR ESTERASE NURNegativeNormalNEGProMethodist Stone Oak HospitalComment on above:Performed By: #### NUM #### [facility] ([id number]) [address] [place] [address], [place] [address]ZCRNVBD NURNegativeNormalNEGProMethodist Stone Oak HospitalComment on above:Performed By: #### NUM #### [facility] ([id number]) [address] [place] [address], [place] [address]AT NUR5.9Irrcdg5.0-8.5PTrinity Health System Twin City Medical CenterComment on above:Performed By: #### NUM #### [facility] ([id number]) [address] [place] [address], [place] [address]PMXIUNM MOLLY>=300AbnormalNEGDoctors HospitalComment on above:Performed By: #### NUM #### [facility] ([id number]) [address] [place] [address], [place] [address]PKAWTYSN GRAVITY MOLLY>=1.674Abmwyk9.003-1.035ProMethodist Stone Oak HospitalComment on above:Performed By: #### NUM #### [facility] ([id number]) [address] [place] [address], [place] [address]NDZIOXEEGGGN NUR0.2 eu/dLNormal<1.1PTrinity Health System [facility] Center Comment on above:Performed By: #### NUM #### [facility] ([id number]) [address] [place] [address], [place] [address]ZJHN TRICHOMONAS/WET PREPon 18-86-7084KVV PREP TRIC BV CYDNEY Wet Prep Tric BV Cydney WP.BACT Bacteria^Bacteria NOMS HealthcareWET PREP TRIC BV CANDIDAWP.CLUE Clue Cells^Clue CellsNOMS HealthcareWET PREP TRIC BV CANDIDAWP.JEANNETTE Fungal Elements^Fungal ElementsNOMS HealthcareWET PREP TRIC BV CANDIDAWP.RBC RBC^RBCNOMS HealthcareWET PREP TRIC BV CANDIDAWP.TRICH Trichomonas^TrichomonasNOMS HealthcareWET PREP TRIC BV CYDNEY WP.WBC WBC^WBCNOMS HealthcareCLINISYNCNOMS HealthcareNo Panel Informationon 79-66-2982SJZ PREP TRIC BV CANDIDAF Few^FewNOMS HealthcareWET PREP TRIC BV CANDIDAN None Seen^None SeenNOMS HealthcareXR LUMBAR SPINE 2 OR 3Von 06-03-2024 [place] [address] XRay Report Signed Patient: JES ROMERO MR#: [id number] : 2000 Acct:[id number] Age/Sex: 23 / F ADM Date: 06/01/24 Loc: [facility] Attending Dr: Manuel Noel M.D. Ordering Physician: Manuel Noel M.D. Date of Service: 06/01/24 Procedure(s): XR lumbar spine 2-3V Accession Number(s): [id number] cc: Manuel Noel M.D. [address] [address] Patient Name: JES ROMERO MRN: [id number] date: 2000 Sex: F Assigned Patient Location: [facility] Current Patient Location: Accession/Order Number: [id number] Exam Date: 06/01/2024 14:19 Report Date: 06/03/2024 [...] Signed By: 06/03/24 1313 DD/ 1310 TD/TT: Photography Spotter:YOUNGadiologjosué, Radiologist, - 06/03/2024 [place] [address] XRay Report Signed Patient: JES ROMERO MR#: [id number] : 2000 Acct:[id number] Age/Sex: 23 / F ADM Date: 06/01/24 Loc: [facility] Attending Dr: Manuel Noel M.D. Ordering Physician: Manuel Noel M.D. Date of Service: 06/01/24 Procedure(s): XR lumbar spine 2-3V Accession Number(s): [id number] cc: Manuel Noel M.D. [address] [place] [address] Patient Name: JES ROMERO MRN: [id number] date: 2000 Sex: F Assigned Patient Location: [facility] Current Patient Location: Accession/Order Number: [id number] Exam Date: 06/01/2024 14:19 Report Date: 06/03/2024 [...] Signed By: 06/03/24 1313 DD/ 1310 TD/TT: Photography Spotter: CESAR HealthcareRadiology Study observation (narrative)NOMMaribell HealthcareXR LUMBAR SPINE 2 OR 3VOrdered By: Radiologist Radiology on 52-73-0076ITWX [facility] Work Phone: PRBC LEUKOREDUCEDon 41-90-3889IWF and Rh group Nom (Bld)Cross Match Result Compatible Unit Blood Type O Pos Unit Number [id number] Status Information Transfused Product ID Red Blood Cells Product Code [id number] Cross Match Result Compatible Unit Blood Type O Pos Unit Number [id number] Status Information Transfused Product ID Red Blood Cells Product Code [id number] Clinic Orthopedic CenterComment on above:Performed By: #### PRBC ####[facility] Ceodgrkoii[address] [place], [place] [address]Dr. Benoit DiggsCBC AUTO DIFFon 22-16-3845MOBM #0.1 103/ulNormal0.0-0.1The [facility] HospitalComment on above:Performed By: #### CBC ####[facility] Xetdbyemlr[address] [place], [place] [address]Dr.Benoit DiggsBasophils/100 WBC (Bld)1.2 %Normal0.2-2.0The Samaritan Hospitalment on above:Performed By: #### CBC ####[facility] Mrhhtwikvd[address] [place], [place] [address]Dr.Benoit ChangEO #0.4 103/ulNormal0.0-0.7The [facility] HospitalComment on above:Performed By: #### CBC ####[facility] Rhctckzrgh[address] [place], [place] [address]Dr.Benoit ChangEosinophils/100 WBC (Bld)4.5 %Normal 0.9-7.0The [facility] HospitalComment on above:Performed By: #### CBC ####[facility] Hodduwlwii[address] [place], [place] [address]Dr.Benoit Diggs Erythrocyte distribution width (RBC) [Ratio]16.6 %Critically high11.0-15.0The [facility] HospitalComment on above:Performed By: #### CBC ####[facility] [address] [place] [address]Dr.Benoit DontaeHematocrit (Bld) [Volume fraction]40.3 %Rcycog64.0-48.0The [facility] HospitalComment on above:Performed By: #### CBC ####[facility] Esrlxeytjc[address] [place], [place] [address]Dr.Benoit DiggsHemoglobin (Bld) [Mass/Vol]12.6 g/dL Eafpwx74.0-16.0The [facility] HospitalComment on above:Performed By: #### CBC ####[facility] Eqnnvoqoha229[address] [place], [place] [address]Dr. Benoit ChangIG #0.04 10e3/ulCritically high0.00-0.03The [facility] HospitalComment on above:Performed By: #### CBC ####[facility] Fhiqwkqnhs[address] [place], [place] [address]Dr.Benoit DiggsIG %0.5 %Normal0.0-0.5The [facility] HospitalComment on above:Performed By: #### CBC ####[facility] Eduhyfgwgy[address] [place], [place] [address]Dr.Benoit DiggsLYMPH #3.0 103/ulNormal1.2-3.8The [facility] HospitalComment on above:Performed By: #### CBC ####[facility] Yllhiugwqs[address] [place], [place] [address]Dr. Benoit DiggsLymphocytes/100 WBC (Bld)36.0 %Fkodct88.5-60.0The [facility] Comment on above:Performed By: #### CBC ####[facility] Fotjqcewul[address] [place], [place] [address]Dr.Benoit DiggsMANUAL DIFF REQNONormalThe [facility] HospitalComment on above:Performed By: #### CBC ####[facility] S[address]zvvekof[address] [place], [place] [address]Dr.Benoit DiggsMCH (RBC) [Entitic mass]25.3 pgCritically low26.7-34.0The [facility] HospitalComment on above:Performed By: #### CBC ####[facility] Gfekclqvgg[address] [place], [place] [address]Dr.Benoit DiggsMCHC (RBC) [Mass/Vol]31.3 g/dLNormal 29.9-35.2The [facility] HospitalComment on above:Performed By: #### CBC ####[facility] Gszujmwigo[address] [place], [place] [address]Dr. Benoit DiggsMCV (RBC) [Entitic vol]80.9 fLCritically low81.0-99.0The [facility] HospitalComment on above:Performed By: #### CBC ####[facility] Yhyafifvqj[address] [place], [place] [address]Dr.Benoit DiggsMONO #0.4 103/ulNormal0.3-0.8The [facility] HospitalComment on above:Performed By: #### CBC ####[facility] Jervxxlxto[address] [place], [place] [address]Dr. Benoit DontaeMonocytes/100 WBC (Bld)4.8 %Normal1.7-12.0The [facility] Comment on above:Performed By: #### CBC ####[facility] Gfpxyelddd[address] [place], [place] [address]Dr.Benoit DiggsNEUT #4.4 103/ulNormal1.4-6.[address] [facility] HospitalComment on above:Performed By: #### CBC ####[facility] Hwzvrffvbs[address] [place], [place] [address]Dr.Benoit Diggs Neutrophils/100 WBC (Bld)53.0 %Ilhnuq48.0-75.0The [facility] HospitalComment on above:Performed By: #### CBC ####[facility] Nhtqfitjzk[address] [place], [place] [address]Dr.Karyaurora DontaePlatelet mean volume (Bld) [Entitic vol] 10.8 fLNormal9.5-13.5The [facility] HospitalComment on above:Performed By: #### CBC ####[facility] [address] [place] [address]Dr. Benoit DiggsPLT410 103/ffXjucmh535-990Zox [facility] HospitalComment on above: Performed By: #### CBC ####[facility] [address]urs[address]dfzy[address] [place] [address]Dr.Benoit DiggsRBC4.98 106/ulNormal4.20-5.40The [facility] HospitalComment on above:Performed By: #### CBC ####[facility] T[address]itzjvihh[address] [place], [place] [address]Dr.Benoit DiggsWBC8.3 103/ul Normal4.0-11.0The [facility] HospitalComment on above:Performed By: #### CBC ####[facility] Phkyyybdvp54[address] [place], [place] [address]Dr. Karyaurora DontaeGLYCOHEMOGLOBIN A1Con 84-63-2642ZSZ RECOMMENDATIONSEE CentervilleComment on above:Result Comment: ADA RECOMMENDED LIMIT 4.0 - 6.0 ADA THERAPEUTIC TARGET < 7.0 ACTION SUGGESTED > 7.0Performed By: #### A1C ####[facility] Oaybtwvmtz[address] [place], [place] [address]Dr. Karyaurora DontaeGlucose [Mass/Vol]100 mg/dLGrand Lake Joint Township District Memorial HospitalComcorewell health ludington hospital on above:Performed By: #### A1C ####[facility] Qhbmtronbo[address] [place], [place] [address]Dr.Karyaurora ObqtuBpK7x (Bld) [Mass fraction]5.1 %Normal 4.5-6.2The [facility] HospitalComment on above:Performed By: #### A1C ####[facility] Adnyjpzaek[address] [place], [place] [address]Dr.Benoit DiggsLIPID PROFILEon 25-11-7644KZHR-HDL RATIO NORMSEE [place] Comment on above:Result Comment: 3.3 - 4.4 LOW RISK 4.4 - 7.1 AVERAGE RISK 7.1 - 11.0 MODERATE RISK >11.0 HIGH RISKPerformed By: #### LIVER, LIPID, BMP, TSH ####[facility] [address]vom[address] [place] [address]Dr. Yilan ChangCholesterol [Mass/Vol]184 mg/dLNormal<=200The [facility] Comment on above:Performed By: #### LIVER, LIPID, BMP, TSH ####[facility] [address]jz[address] [place] [address]Dr. Yilan ChangCholesterol in HDL [Mass/Vol]52 mg/dYIyfkkm63-42Zho [facility] HospitalComment on above: Performed By: #### LIVER, LIPID, BMP, TSH ####[facility] Ekasjuvnsf[address] [place] [address]Dr. Yilan ChangCholesterol in LDL [Mass/Vol] 114.8 mg/dLNoCrystal Clinic Orthopedic CenterComment on above:Performed By: #### LIVER, LIPID, BMP, TSH ####[facility] Vdfiqwslyd[address] [place], [place] [address]Dr. Yilan ChangCholesterol.total/Cholesterol in HDL [Mass ratio]3.5 {ratio}NormalThe [facility] HospitalComment on above:Performed By: #### LIVER, LIPID, BMP, TSH ####[facility] [address]ab[address] [place] [address]Dr. Yilan ChangHDL NORMAL> or = 60 mg/dl - LOW CARDIOVASCULAR RISK <40 mg/dl - HIGH CARDIOVASCULAR RISKNoCrystal Clinic Orthopedic CenterComment on above: Performed By: #### LIVER, LIPID, BMP, TSH ####[facility] Kktuaibrto[address] [place] [address]Dr. Yilan ChangLDL CALC NORMALSEE BELOW NormalThe [facility] HospitalComment on above:Result Comment: <100 mg/dl OPTIMAL 100 - 129 mg/dl NEAR OR ABOVE OPTIMAL 130 - 159 mg/dl BORDERLINE HIGH 160 - 189 mg/dl HIGH >190 mg/dl VERY HIGHPerformed By: #### LIVER, LIPID, BMP, TSH ####[facility] Sw[address]fq[address]qp[address] [place] [address]Dr. Yilan ChangTriglyceride [Mass/Vol]86 mg/dLNormal<=150The [facility] Comment on above:Performed By: #### LIVER, LIPID, BMP, TSH ####[facility] [address]fsbc[address] [place] [address]Dr. Yilan ChangVLDL CALC17.2 mg/dLNormalThe [facility] HospitalComment on above:Performed By: #### LIVER, LIPID, BMP, TSH ####[facility] [address]rwmdfqsmb[address] [place] [address]Dr. Benoit DiggsLIVER PROFILEon 46-14-2255Csncfko [Mass/Vol]3.3 g/dL Critically low3.4-5.0The [facility] HospitalComment on above:Performed By: #### LIVER, LIPID, BMP, TSH ####[facility] Borxuegroo[address] [place] [address]Dr. Yilan ChangAlbumin/Globulin [Mass ratio]0.8 {ratio}NormalThe [facility] HospitalComment on above:Performed By: #### LIVER, LIPID, BMP, TSH ####[facility] Uneguooxrh[address] [place] [address]Dr. Yilan ChangALP [Catalytic activity/Vol]110 U/XFldzcy27-254Ems [facility] HospitalComment on above:Performed By: #### LIVER, LIPID, BMP, TSH ####[facility] Ecyuzifylr[address] [place], [place] [address]Dr. Yilan ChangALT [Catalytic activity/Vol]25 U/DDlpqeu22-07Ssg [facility] Comment on above:Performed By: #### LIVER, LIPID, BMP, TSH ####[facility] Tzhsanjgec[address] [place], [place] [address]Dr. Yilan ChangAST [Catalytic activity/Vol]20 U/HHcchco22-86Mgd [facility] HospitalComment on above:Performed By: #### LIVER, LIPID, BMP, TSH ####[facility] Vqecvoexge[address] [place], [place] [address]Dr. Yilan ChangBILI, CONJUGATED0.1 mg/dLNormal0.0-0.[address] [facility] HospitalComment on above:Performed By: #### LIVER, LIPID, BMP, TSH ####[facility] Aedbvpaawt[address] [place], [place] [address]Dr. Yilan ChangBilirubin [Mass/Vol]0.4 mg/dLNormal0.2-1.0The [facility] Comment on above:Performed By: #### LIVER, LIPID, BMP, TSH ####[facility] Hstcpsdaqs[address] [place] [address]Dr. Benoit ChangGlobulin (S) [Mass/Vol]3.9 g/dLNormalThe [facility] HospitalComment on above:Performed By: #### LIVER, LIPID, BMP, TSH ####[facility] Egxcjrvxua[address] [place] [address]Dr. Benoit ChangProtein [Mass/Vol]7.2 g/dLNormal6.4-8.[address] [facility] HospitalComment on above:Performed By: #### LIVER, LIPID, BMP, TSH ####[facility] [address]hlckjde[address] [place] [address]Dr. Benoit DiggsPROF CHEM 8 (BAS METB)on 24-60-7266Cmwrg gap [Moles/Vol]13.2 mmol/L NormalKettering HealthComment on above:Performed By: #### CBC #### [facility] [address] [address] [address] Benoit DiggsCalcium [Mass/Vol]9.2 mg/dLNormal8.5-10.1[facility] Comment on above:Performed By: #### CBC #### [facility] [address] [address] [address] Benoit DiggsChloride [Moles/Vol]108 mmol/LCritically [id number] [facility] HospitalComment on above:Performed By: #### CBC #### [facility] [address] [address] [address] Benoit DiggsCO2 [Moles/Vol]27.9 mmol/BFzeyyt18.0-32.0The [facility] Comment on above:Performed By: #### CBC #### [facility] [address] [address] [address] Benoit DiggsCreatinine [Mass/Vol]0.62 mg/dLNormal0.55-1.02[facility] HealthComment on above:Performed By: #### CBC #### [facility] [address] [address] [address] Benoit KrausGFR-AF IVORIAN>60Normal>=60The [facility] HospitalComment on above:Performed By: #### CBC #### [facility] [address] [address] [address] Benoit KrausGFR-NON AF IVORIAN>60Normal>=60The [facility] HospitalComment on above:Performed By: #### CBC #### [facility] [address] [address] [address] Benoit DiggsGlucose [Mass/Vol]92 mg/kLOhzfff52-094Kez [facility] Comment on above:Performed By: #### CBC #### [facility] [address] [place] [address] Dr. Benoit DiggsPotassium [Moles/Vol]4.1 mmol/LNormal3.5-5.1[facility] Comment on above:Performed By: #### CBC #### [facility] [address] [address] [address] Benoit DiggsSodium [Moles/Vol]145 mmol/NNcchrp832-277VnoKettering Health Comment on above:Performed By: #### CBC #### [facility] [address] [address] [address] Benoit DiggsUrea nitrogen [Mass/Vol]8.0 mg/dLNormal7.0-18.0The [facility] HospitalComment on above:Performed By: #### CBC #### [facility] [address] [address] [address] Benoit Sanchez nitrogen/Creatinine [Mass ratio]12.9 mg/mgNormalThe [facility] HospitalComment on above:Performed By: #### CBC #### [facility] [address] [address] [address] Benoit Becerra [id number] uIU/mLNormal0.358-3.740The [facility] HospitalComment on above:Performed By: #### CBC #### [facility] [address] [place] [address] Dr. Benoit Oseguera AUTO DIFFon [id number] #0.1 103/ulNormal0.0-0.1The [facility] HospitalComment on above:Performed By: #### CBC #### [facility] [address] [place] [address] Dr. Benoit DiggsBasophils/100 WBC (Bld)0.7 %Normal0.2-2.0The [facility] Comment on above:Performed By: #### CBC #### [facility] [address] [place] [address] Dr. Benoit Aleman #0.4 103/ulNormal0.0-0.7The [facility] HospitalComment on above: Performed By: #### CBC #### [facility] [address] [place] [address] Dr. Benoit Krausosinophils/100 WBC (Bld)3.8 %Normal0.9-7.0The [facility] Comment on above:Performed By: #### CBC #### [facility] [address] [place] [address] Dr. Benoit Krausrythrocyte distribution width (RBC) [Ratio]15.2 %Critically high 11.0-15.0The [facility] HospitalComment on above:Performed By: #### CBC #### [facility] [address] [place] [address] Dr. Benoit DiggsHematocrit (Bld) [Volume fraction]28.7 %Critically low36.0-48.[address] [facility] HospitalComment on above:Performed By: #### CBC #### [facility] [address] [place] [address] Dr. Benoit DiggsHemoglobin (Bld) [Mass/Vol]9.1 g/dLCritically low12.0-16.0The [facility] HospitalComment on above:Performed By: #### CBC #### [facility] [address] [place] [address] Dr. Benoit Amado #0.05 10e3/ulCritically high0.00-0.03The [facility] Comment on above:Performed By: #### CBC #### [facility] [address] [place] [address] Dr. Benoit Amado %0.5 %Normal0.0-0.5The [facility] HospitalComment on above: Performed By: #### CBC #### [facility] [address] [place] [address] Dr. Benoit Dennis #3.3 103/ulNormal1.2-3.8The [facility] HospitalComment on above:Performed By: #### CBC #### [facility] [address] [place] [address] Dr. Benoit Beckmanhocytes/100 WBC (Bld)31.8 %Tkjhfk59.5-60.0The [facility] HospitalComment on above:Performed By: #### CBC #### [facility] [address] [place] [address] Dr. Benoit FuentesUAL DIFF REQNONormalThe [facility] HospitalComment on above: Performed By: #### CBC #### [facility] [address] [place] [address] Dr. Benoit Fisher (RBC) [Entitic mass]25.3 pgCritically low26.7-34.0The [facility] HospitalComment on above:Performed By: #### CBC #### [facility] [address] [place] [address] Dr. Benoit Lima (RBC) [Mass/Vol]31.7 g/zGUgzcdy87.9-35.2The [facility] HospitalComment on above:Performed By: #### CBC #### [facility] [address] [place] [address] Dr. Benoit Lima (RBC) [Entitic vol]79.9 fLCritically low81.0-99.0The [facility] HospitalComment on above:Performed By: #### CBC #### [facility] [address] [place] [address] Dr. Benoit Castellano #0.7 103/ulNormal0.3-0.8The [facility] HospitalComment on above:Performed By: #### CBC #### [facility] [address] [place] [address] Dr. Benoit Funezocytes/100 WBC (Bld)7.2 %Normal1.7-12.0The [facility] Comment on above:Performed By: #### CBC #### [facility] [address] [place] [address] Dr. Benoit Amaya #5.8 103/ulNormal1.4-6.5The [facility] HospitalComment on above:Performed By: #### CBC #### [facility] [address] [place] [address] Dr. Benoit Herrerautrophils/100 WBC (Bld)56.0 %Kmwokt48.0-75.0The [facility] HospitalComment on above:Performed By: #### CBC #### [facility] [address] [place] [address] Dr. Benoit Pearllet mean volume (Bld) [Entitic vol]10.5 fLNormal9.5-13.5The [facility] HospitalComment on above:Performed By: #### CBC #### [facility] [address] [place] [address] Dr. Benoit DiggsPLT152 103/olSnstra104-780Apl [facility] HospitalComment on above: Performed By: #### CBC #### [facility] [address] [place] [address] Dr. Benoit DiggsRBC3.59 106/ulCritically low4.20-5.40The [facility] HospitalComment on above:Performed By: #### CBC #### [facility] [address] [place] [address] Dr. Benoit DiggsWBC10.3 103/ulNormal4.0-11.0The [facility] HospitalComment on above:Performed By: #### CBC #### [facility] [address] [place] [address] Dr. Benoit Oseguera AUTO DIFFon [id number] #0.0 103/ulNormal0.0-0.1The [facility] HospitalComment on above:Performed By: #### CBC #### [facility] [address] [address] [address] Benoit DiggsBasophils/100 WBC (Bld)0.4 %Normal0.2-2.0The [facility] Comment on above:Performed By: #### CBC #### [facility] [address] [place] [address] Dr. Benoit Aleman #0.3 103/ulNormal0.0-0.7The [facility] HospitalComment on above: Performed By: #### CBC #### [facility] [address] [place] [address] Dr. Benoit Krausosinophils/100 WBC (Bld)3.1 %Normal0.9-7.0The [facility] Comment on above:Performed By: #### CBC #### [facility] [address] [place] [address] Dr. Benoit Krausrythrocyte distribution width (RBC) [Ratio]15.5 %Critically high 11.0-15.0The [facility] HospitalComment on above:Performed By: #### CBC #### [facility] [address] [place] [address] Dr. Benoit DiggsHematocrit (Bld) [Volume fraction]22.0 %Critically low36.0-48.[address] [facility] HospitalComment on above:Performed By: #### CBC #### [facility] [address] [place] [address] Dr. Benoit DiggsHemoglobin (Bld) [Mass/Vol]6.8 g/dLCritically low12.0-16.0The [facility] HospitalComment on above:Performed By: #### CBC #### [facility] [address] [place] [address] Dr. Benoit Amado #0.05 10e3/ulCritically high0.00-0.03The [facility] Comment on above:Performed By: #### CBC #### [facility] [address] [address] [address] Benoit Amado %0.5 %Normal0.0-0.5The [facility] HospitalComment on above: Performed By: #### CBC #### [facility] [address] [address] [address] Benoit Dennis #2.9 103/ulNormal1.2-3.8The [facility] HospitalComment on above:Performed By: #### CBC #### [facility] [address] [address] [address] Benoit Beckmanhocytes/100 WBC (Bld)31.0 %Eqnxsz13.5-60.0The [facility] HospitalComment on above:Performed By: #### CBC #### [facility] [address] [place] [address] Dr. Benoit FuentesUAL DIFF REQNONormalThe [facility] HospitalComment on above: Performed By: #### CBC #### [facility] [address] [place] [address] Dr. Benoit Lima (RBC) [Entitic mass]24.6 pgCritically low26.7-34.0The [facility]ment on above:Performed By: #### CBC #### [facility] [address] [place] [address] Dr. Benoit Lima (RBC) [Mass/Vol]30.9 g/wJWmqxyw84.9-35.2The [facility] HospitalComment on above:Performed By: #### CBC #### [facility] [address] [place] [address] Dr. Benoit Lima (RBC) [Entitic vol]79.7 fLCritically low81.0-99.0The [facility] HospitalComment on above:Performed By: #### CBC #### [facility] [address] [place] [address] Dr. Benoit Castellano #0.8 103/ulNormal0.3-0.8The [facility] HospitalComment on above:Performed By: #### CBC #### [facility] [address] [place] [address] Dr. Benoit Funezocytes/100 WBC (Bld)7.9 %Normal1.7-12.0The [facility] on above:Performed By: #### CBC #### [facility] [address] [place] [address] Dr. Benoit HerreraUT #5.4 103/ulNormal1.4-6.5The [facility] HospitalComment on above:Performed By: #### CBC #### [facility] [address] [place] [address] Dr. Benoit Herrerautrophils/100 WBC (Bld)57.1 %Fnlfzv02.0-75.0The [facility] HospitalComment on above:Performed By: #### CBC #### [facility] [address] [place] [address] Dr. Benoit DiggsPlatelet mean volume (Bld) [Entitic vol]11.9 fLNormal9.5-13.5The [facility] HospitalComment on above:Performed By: #### CBC #### [facility] [address] [place] [address] Dr. Benoit DiggsPLT180 103/msUacbcl177-620Duj [facility] HospitalComment on above: Performed By: #### CBC #### [facility] [address] [place] [address] Dr. Benoit DiggsRBC2.76 106/ulCritically low4.20-5.40The [facility] HospitalComment on above:Performed By: #### CBC #### [facility] [address] [place] [address] Dr. Benoit DiggsWBC9.5 103/ulNormal4.0-11.0The [facility] HospitalComcorewell health [facility] hospital on above: Performed By: #### CBC #### [facility] [address] [place] [address] Dr. Benoit Ramírez [id number]ZCJVBKYxs [facility] HospitalComment on above:Performed By: #### CBC #### [facility] [address] [address] [address] Benoit Oseguera AUTO DIFFon [id number] #0.1 103/ulNormal0.0-0.1The [facility] HospitalComment on above:Performed By: #### CBC ####[facility] Gl[address] [place], [place] [address]DrQuincy DiggsBasophils/100 WBC (Bld)0.6 %Normal0.2-2.0The [facility] HospitalComment on above:Performed By: #### CBC ####[facility] J[address] [place] [address] ChangEO #0.4 103/ulNormal0.0-0.7The [facility] HospitalComment on above:Performed By: #### CBC ####[facility] Mhqeawazcc[address] [place], [place] [address]Dr.Yilan Krausosinophils/100 WBC (Bld)3.5 %Normal 0.9-7.0The [facility] HospitalComment on above:Performed By: #### CBC ####[facility] [address] [place], [place] [address]Dr.Yilan Diggs Erythrocyte distribution width (RBC) [Ratio]15.4 %Critically high11.0-15.0The [facility] HospitalComment on above:Performed By: #### CBC ####[facility] X[address]pfwpcas[address] [place], [place] [address]DrQuincy DiggsHematocrit (Bld) [Volume fraction]26.4 %Critically low36.0-48.0The [facility] HospitalComment on above:Performed By: #### CBC ####[facility] [address]mq[address] [place], [place] [address]DrQuincy DiggsHemoglobin (Bld) [Mass/Vol]8.4 g/dL Critically low12.0-16.0The [facility] HospitalComment on above:Performed By: #### CBC ####[facility] [address]qmt[address] [place], [place] [address]Dr. Benoit DiggsIG #0.04 10e3/ulCritically high0.00-0.03The [facility] HospitalComment on above:Performed By: #### CBC ####[facility] [address] [address]Dr.Benoit DiggsIG %0.4 %Normal0.0-0.5The [facility] HospitalComment on above:Performed By: #### CBC ####[facility] [address]oz[address]sciwy[address] [place], [place] [address]Dr.Benoit DiggsLYMPH #2.8 103/ulNormal1.2-3.8The [facility] HospitalComment on above:Performed By: #### CBC ####[facility] [address]ro[address] [place], [place] [address]Dr. Benoit DiggsLymphocytes/100 WBC (Bld)26.9 %Gzqcgn12.5-60.0The [facility] Comment on above:Performed By: #### CBC ####[facility] Bfdercwtgo[address] [place], [place] [address]Dr.Benoit DiggsMANUAL DIFF REQNONormalThe [facility] HospitalComment on above:Performed By: #### CBC ####[facility] Cgofggdrlj[address] [place], [place] [address]Dr.Benoit DiggsCENTRAL [facility] (RBC) [Entitic mass]24.7 pgCritically low26.7-34.0The [facility] HospitalComment on above:Performed By: #### CBC ####[facility] Blpmrxudrp[address] [place], [place] [address]Dr.Benoit DiggsHC (RBC) [Mass/Vol]31.8 g/dLNormal 29.9-35.2The [facility] HospitalComment on above:Performed By: #### CBC ####[facility] Faufawvhoz[address] [place], [place] [address]Dr. Benoit DiggsV (RBC) [Entitic vol]77.6 fLCritically low81.0-99.0The [facility] HospitalComment on above:Performed By: #### CBC ####[facility] [address] [address]Dr.Benoit DiggsMONO #0.7 103/ulNormal0.3-0.8The [facility] HospitalComment on above:Performed By: #### CBC ####[facility] Ttikpyrhuh[address] [place], [place] [address]Dr. Yilan ChangMonocytes/100 WBC (Bld)6.2 %Normal1.7-12.0The [facility] Comment on above:Performed By: #### CBC ####[facility] Jmesykyuxc[address] [place], [place] [address]Dr.Yilan ChangNEUT #6.5 103/ulNormal1.4-6.[address] [facility] HospitalComment on above:Performed By: #### CBC ####[facility] [address]xsgjwkb[address] [place], [place] [address]Dr.Benoit Diggs Neutrophils/100 WBC (Bld)62.4 %Awkmye94.0-75.0The [facility] HospitalComment on above:Performed By: #### CBC ####[facility] Vrahermxzw[address] [place], [place] [address]Dr.Benoit ChangPlatelet mean volume (Bld) [Entitic vol] 11.0 fLNormal9.5-13.5The [facility] HospitalComment on above:Performed By: #### CBC ####[facility] [address]pzmzwbu[address] [place], [place] [address]Dr. Yilan VklqbTWQ263 103/ppMddjpq035-891Bih [facility] HospitalComment on above: Performed By: #### CBC ####[facility] Ubputsmoip[address] [place], [place] [address]Dr.Yilan ChangRBC3.40 106/ulCritically low4.20-5.40The [facility] HospitalComment on above:Performed By: #### CBC ####[facility] Bnpeopshcd[address] [place], [place] [address]Dr.Yilan CulkhGQP94.4 103/ul Normal4.0-11.0The [facility] HospitalComment on above:Performed By: #### CBC ####[facility] [address] [address]Dr. Benoit Jennings SCREEN RAPID (URINE)on [id number]EBfs [facility] HospitalComment on above:Performed By: #### CBC #### [facility] [address] [place] [address] Dr. Benoit DiggsBARNegativeNormokNEGZanesville City HospitalComcorewell health lud[facility] hospital on above: Performed By: #### CBC #### [facility] [address] [address] [address] Benoit RiosPNegativeNormalNEGZanesville City HospitalComcorewell health ludington hospital on above: Performed By: #### CBC #### [facility] [address] [place] [address] Dr. Benoit DiggsBZONegativeNormokNEGZanesville City HospitalComcorewell health ludington hospital on above: Performed By: #### CBC #### [facility] [address] [place] [address] Dr. Benoit RamirezCNegativermokNEGZanesville City HospitalComcorewell health ludington hospital on above: Performed By: #### CBC #### [facility] [address] [place] [address] Dr. Benoit WagnerUniversity Hospitals Geneva Medical CenterComcorewell health ludington hospital on above: Result Comment: AMP (Amphetamine): 500ng/mL, BAR (Barbituates): 200 ng/mL, BZO (Benzodiazepines): 150 ng/mL, BUP (Buprenorphine): 10 ng/mL, JOSE MANUEL (Cocaine): 150 ng/mL, mAMP (Methamphetamine): 500 ng/mL, MTD (Methadone): 200 ng/mL, OPI (Opiates): 100 ng/mL, OXY (Oxycodone): 100 ng/mL, PCP (Phencyclidine): 25 ng/mL, PPX (Propoxyphene): 300 ng/mL, THC (Cannabinoids): 50 ng/mL, TCA (Trycyclic Antidepressants): 300 ng/mLPerformed By: #### CBC #### [facility] [address] [place] [address] Dr. Benoit Jennings CUT HEADERDRUG CLASS TEST SYSTEM CUT-OFF CONCENTRATIONS ARE FOLLOWS:NormalThe [facility] HospitalComment on above:Performed By: #### CBC #### [facility] [address] [address] [address] Benoit DiggsmAMPNegativeNormalNEGATIVEKettering HealthComment on above: Performed By: #### CBC #### [facility] [address] [place] [address] Dr. Benoit DiggsMTDNegativeNormalNEGATIVEKettering HealthComment on above: Performed By: #### CBC #### [facility] [address] [address] [address] Benoit DiggsOPINegativeNormalNEGATIVEKettering HealthComment on above: Performed By: #### CBC #### [facility] [address] [place] [address] Dr. Benoit DiggsOXYNegativeNormalNEGATIVEKettering HealthComment on above: Performed By: #### CBC #### [facility] [address] [address] [address] Benoit DiggsPCPNegativeNormalNEGATIVEKettering HealthComcorewell health ludington hospital on above: Performed By: #### CBC #### [facility] [address] [place] [address] Dr. Benoit DiggsPPXNegativeNormalNEGMemorial Health System [facility] on above: Performed By: #### CBC #### [facility] [address] [place] [address] Dr. Benoit DiggsTCANegativeNormalNEGATIVEPeoples Hospital HospitalComcorewell health ludington hospital on above: Performed By: #### CBC #### [facility] [address] [place] [address] Dr. Benoit DiggsTHCNegativeNormalNEGATIVEFisher-Titus Medical Centerment on above: Performed By: #### CBC #### [facility] [address] [place] [address] Dr. Benoit Delgado AND SCREENon [id number] AND SCREENNegativeNormalThe [facility] HospitalComment on above:Performed By: #### TNS #### [facility] [address] [address] [address] Benoit Wiseman (CLEAN/CATCH) CELL BIOLOGIST/MICRO IF IND.on [id number] Ql (U) NegativeNormalNEGATIVEFisher-Titus Medical Centerment on above:Performed By: #### CBC #### [facility] [address] [address] [address] Benoit DiggsClarity (U)CLEARNormalCLEARFisher-Titus Medical Centerment on above: Performed By: #### CBC #### [facility] [address] [address] [address] Benoit DiggsColor (U)YELLOWNormalYELLOWKettering HealthComcorewell health ludington hospital on above: Performed By: #### CBC #### [facility] [address] [place] [address] Dr. Benoit DiggsGlucose Ql (U)NegativeNormalNEGATIVEKettering HealthComment on above:Performed By: #### CBC #### [facility] [address] [address] [address] Benoit DiggsHemoglobin Ql (U)NegativeNormalNEGWexner Medical Center on above:Performed By: #### CBC #### [facility] [address] [address] [address] Benoit DiggsKetones Ql (U)NegativeNormalNEGATIVEFisher-Titus Medical Centerment on above:Performed By: #### CBC #### [facility] [address] [address] [address] Benoit DiggsLEUKOCYTESNegativeNormalNEGATIVEThe [facility] on above:Performed By: #### CBC #### [facility] [address] [address] [address] Benoit DiggsNitrite Ql (U)NegativeNormalNEGATIVEThe [facility] on above:Performed By: #### CBC #### [facility] [address] [place] [address] Dr. Benoit DiggspH (U)6.0 [pH]Normal5-9The Jarvisburg HospitalComment on above: Performed By: #### CBC #### [facility] [address] [place] [address] Dr. Benoit DiggsSPEC GRAVITY1.129Hosbgm3.005-<=1.025The [facility] HospitalComment on above:Performed By: #### CBC #### [facility] [address] [place] [address] Dr. Benoit Wiseman PROTEINTRACENormalNEGATIVE/ TRACEThe [facility] HospitalComment on above:Performed By: #### CBC #### [facility] [address] [place] [address] Dr. Benoit Veras MICRO INDNOT INDICATEDNormalThe [facility] HospitalComment on above:Performed By: #### CBC #### [facility] [address] [place] [address] Dr. Benoit Milesbilinogen Qn (U)4 {Nadege'U}/dLAbnormal0.2 - 1.0The [facility] Hospitalment on above:Performed By: #### CBC #### [facility] [address] [place] [address] Dr. Benoit GusmanLTPAULINE URINEon [id number] URINECulture Observations: MODERATE GROWTH OF MIXED GENITAL RIZWAN. NO POTENTIAL PATHOGENS SEEN.NormalThe [facility] HospitalComment on above:Performed By: #### URCX #### [facility] [address] [place] [address] Dr. Benoit Wiseman (CLEAN/CATCH) CELL BIOLOGIST/MICRO IF IND.on [id number] Ql (U) SMALLAbnormalNEGATIVEThe [facility] HospitalComment on above:Performed By: #### CBC #### [facility] [address] [place] [address] Dr. Benoit Rodrigezarity (U)CLEARNormalCLEARThe [facility] HospitalComment on above: Performed By: #### CBC #### [facility] [address] [place] [address] Dr. Benoit Loya (U)DK. ORANGEAbnormalYELLOWKettering HealthComment on above:Performed By: #### CBC #### [facility] [address] [address] [address] Benoit DiggsGlucose Ql (U)NegativeNormalNEGATIVEKettering HealthComment on above:Performed By: #### CBC #### [facility] [address] [address] [address] Benoit DiggsHemoglobin Ql (U)NegativeNormalNEGZanesville City Hospital Comment on above:Performed By: #### CBC #### [facility] [address] [address] [address] Benoit DiggsKetones Ql (U)TRACEAbnormalNEGATIVEKettering HealthComment on above:Performed By: #### CBC #### [facility] [address] [place] [address] Dr. Benoit DiggsLEUKOCYTESSMALLAbnoalNEGZanesville City HospitalComment on above:Performed By: #### CBC #### [facility] [address] [place] [address] Dr. Benoit DiggsNitrite Ql (U)NegativeNormalNEGZanesville City HospitalComment on above:Performed By: #### CBC #### [facility] [address] [place] [address] Dr. Benoit DiggspH (U)5.5 [pH]Normal5-9Kettering HealthComment on above: Performed By: #### CBC #### [facility] [address] [place] [address] Dr. Benoit DiggsSPEC GRAVITY>=1.411Wdrnzgmq6.005-<=1.025[facility] Comment on above:Performed By: #### CBC #### [facility] [address] [address] [address] Benoit Wiseman BKFNRYP502 mg/dlAbnoalNEGOUR COMMUNITY H[facility]ITAL/ TRACEKettering Health Comment on above:Performed By: #### CBC #### [facility] [address] [place] [address] Dr. Benoit Veras MICRO INDINDICATEDNoalThDiley Ridge Medical CenterComment on above: Performed By: #### CBC #### [facility] [address] [address] [address] Benoit Kahn Qn (U)8 {Nadege'U}/dLAbnormal0.2 - 1.0The [facility] on above:Performed By: #### CBC #### [facility] [address] [address] [address] Benoit Stewart MICROSCOPIC ONLYon [id number]UVAG SEENThe [facility] on above:Performed By: #### CBC #### [facility] [address] [address] [address] Benoit Loco identified Cx Nom (U)INDICATEDNoalThCleveland Clinic on above:Performed By: #### CBC #### [facility] [address] [place] [address] Dr. Benoit Norton SEENNormalNONE SEENThe [facility] on above:Performed By: #### CBC #### [facility] [address] [place] [address] Dr. Benoit Gomez LM Nom (Urine sed)NONE SEENNormalNONE SEENThe [facility] on above:Performed By: #### CBC #### [facility] [address] [place] [address] Dr. Laboy ChangEpithelial cells LM Ql (Urine sed)MANYAbnormalNONE SEEN /RAREThe [facility] on above:Performed By: #### CBC #### [facility] [address] [place] [address] Dr. Benoit TalbertMALLAbnormalNONE SEENThe [facility] on above:Performed By: #### CBC #### [facility] [address] [place] [address] Dr. Benoit CevallosOtaldQYA6-05Fxdhkdps5-1Msd [facility] on above:Performed By: #### CBC #### [facility] [address] [place] [address] Dr. Benoit ChristineKqascMYN44-48KqkkxztvXBSO SEENThe [facility] HospitalComment on above: Performed By: #### CBC #### [facility] [address] [place] [address] Dr. Benoit Villarreal B STREP CULTUREon 11-18-2022S. agalactiae Ag Ql (Unsp spec) Culture Observations: NEGATIVE FOR GROUP B STREPTOCOCCUS.NormalThe [facility] HospitalComment on above: Performed By: #### GBSCX #### [facility] [address] [place] [address] Dr. Benoit Oseguera AUTO DIFFon [id number] #0.0 103/ulNormal0.0-0.1The [facility] HospitalComment on above:Performed By: #### CBC #### [facility] [address] [place] [address] Dr. Benoit DiggsBasophils/100 WBC (Bld)0.3 %Normal0.2-2.0[facility] Comment on above:Performed By: #### CBC #### [facility] [address] [place] [address] Dr. Benoit Aleman #0.1 103/ulNormal0.0-0.7The [facility] HospitalComment on above: Performed By: #### CBC #### [facility] [address] [place] [address] Dr. Benoit Krausosinophils/100 WBC (Bld)2.0 %Normal0.9-7.0The [facility] Comment on above:Performed By: #### CBC #### [facility] [address] [place] [address] Dr. Benoit Krausrythrocyte distribution width (RBC) [Ratio]12.7 %Nzuhjf00.0-15.0 Kettering HealthComment on above:Performed By: #### CBC #### [facility] [address] [place] [address] Dr. Benoit DiggsHematocrit (Bld) [Volume fraction]30.6 %Critically low36.0-48.0 [facility] HealthComment on above:Performed By: #### CBC #### [facility] [address] [address] [address] Benoit DiggsHemoglobin (Bld) [Mass/Vol]10.1 g/dLCritically low12.0-16.0The [facility] HospitalComment on above:Performed By: #### CBC #### [facility] [address] [address] [address] Benoit Amado #0.03 10e3/ulNormal0.00-0.03The [facility] HospitalComment on above:Performed By: #### CBC #### [facility] [address] [address] [address] Benoit Amado %0.5 %Normal0.0-0.5The [facility] HospitalComment on above: Performed By: #### CBC #### [facility] [address] [address] [address] Benoit Dennis #0.6 103/ulCritically low1.2-3.8The [facility] Comment on above:Performed By: #### CBC #### [facility] [address] [address] [address] Benoit Beckmanhocytes/100 WBC (Bld)10.7 %Critically low20.5-60.0The [facility] Hospitalment on above:Performed By: #### CBC #### [facility] [address] [address] [address] Benoit FuentesUAL DIFF REQNONormalThe [facility] HospitalComment on above: Performed By: #### CBC #### [facility] [address] [address] [address] Benoit Lima (RBC) [Entitic mass]28.9 btCvkwxp90.7-34.0The [facility] HospitalComment on above:Performed By: #### CBC #### [facility] [address] [address] [address] Benoit Lima (RBC) [Mass/Vol]33.0 g/zQQsskia74.9-35.2The [facility] HospitalComment on above:Performed By: #### CBC #### [facility] [address] [address] [address] Benoit LimaV (RBC) [Entitic vol]87.4 cGNswpsh45.0-99.0The [facility] HospitalComment on above:Performed By: #### CBC #### [facility] [address] [address] [address] Benoit Castellano #0.6 103/ulNormal0.3-0.8The [facility] HospitalComment on above:Performed By: #### CBC #### [facility] [address] [place] [address] Dr. Benoit Funezocytes/100 WBC (Bld)10.9 %Normal1.7-12.0The [facility] Comment on above:Performed By: #### CBC #### [facility] [address] [place] [address] Dr. Benoit Amaya #4.4 103/ulNormal1.4-6.5The [facility] HospitalComment on above:Performed By: #### CBC #### [facility] [address] [place] [address] Dr. Benoit Herrerautrophils/100 WBC (Bld)75.6 %Critically high43.0-75.0The [facility] HospitalComment on above:Performed By: #### CBC #### [facility] [address] [place] [address] Dr. Benoit Pearllet mean volume (Bld) [Entitic vol]10.9 fLNormal9.5-13.5The [facility] HospitalComment on above:Performed By: #### CBC #### [facility] [address] [place] [address] Dr. Benoit DiggsPLT191 103/sfLlspde319-367Pag [facility] HospitalComment on above: Performed By: #### CBC #### [facility] [address] [place] [address] Dr. Benoit DiggsRBC3.50 106/ulCritically low4.20-5.40The [facility] Hospitalment on above:Performed By: #### CBC #### [facility] [address] [place] [address] Dr. Benoit DiggsWBC5.9 103/ulNormal4.0-11.0The [facility] Hospitalment on above: Performed By: #### CBC #### [facility] [address] [place] [address] Dr. Benoit Lancaster URINEon [id number] URINECulture Observations: HEAVY GROWTH OF MIXED GENITAL RIZWAN. NO POTENTIAL PATHOGENS SEEN.NormalKettering HealthComment on above:Performed By: #### URCX #### [facility] [address] [place] [address] Dr. Benoit Brower URINE PROFILEon 60-41-8999Glvoxwcli Ql (U)NegativeNormal NEGATIVEKettering HealthComment on above:Performed By: #### HIV12 #### [facility] [address] [place] [address] Dr. Benoit DiggsClronak (U)CLEARNormalCLEARKettering HealthComment on above: Performed By: #### HIV12 #### [facility] [address] [place] [address] Dr. Benoit Loya (U)YELLOWNormalYELLOWFisher-Titus Medical Centerment on above: Performed By: #### HIV12 #### [facility] [address] [place] [address] Dr. Benoit Epperson micrscopic examination will be performed if indicated. NormalKettering HealthComment on above:Performed By: #### HIV12 #### [facility] [address] [place] [address] Dr. Benoit DiggsGlucose Ql (U)NegativeNormalNEGATIVEKettering HealthComment on above:Performed By: #### HIV12 #### [facility] [address] [place] [address] Dr. Benoit DiggsHemoglobin Ql (U)NegativeNormalNEGATIVELake County [facility] on above:Performed By: #### HIV12 #### [facility] [address] [place] [address] Dr. Benoit Vernon Ql (U)15 mg/dlAbnormalNEGATIVEThe [facility] on above:Performed By: #### HIV12 #### [facility] [address] [place] [address] Dr. Benoit DiggsLEUKOCYTESNegativeNormalNEGATIVEThe [facility] HospitalComment on above:Performed By: #### HIV12 #### [facility] [address] [place] [address] Dr. Benoit Armstrongtrvasyl Ql (U)NegativeNormalNEGATIVEThe [facility] HospitalComment on above:Performed By: #### HIV12 #### [facility] [address] [place] [address] Dr. Benoit DiggspH (U)6.5 [pH]Normal5-9The [facility] HospitalComment on above: Performed By: #### HIV12 #### [facility] [address] [place] [address] Dr. Benoit DiggsSPEC GRAVITY1.764Hiyekh6.005-<=1.025The [facility] HospitalComment on above:Performed By: #### HIV12 #### [facility] [address] [place] [address] Dr. Benoit Wiseman PROTEINTRACENormalNEGATIVE/ TRACEThe [facility] HospitalComment on above:Performed By: #### HIV12 #### [facility] [address] [place] [address] Dr. Benoit Veras MICRO INDINDICATEDNormalThDiley Ridge Medical CenterComment on above: Performed By: #### HIV12 #### [facility] [address] [place] [address] Dr. Benoit Thompsoninogen Qn (U)1.0 {Nadege'U}/dLNormal0.2 - 1.0The [facility] HospitalComment on above:Performed By: #### HIV12 #### [facility] [address] [place] [address] Dr. Benoit COOL AGon [id number] CentervilleComment on above:Result Comment: Negative for Flu A protein angiten. Infection due to Flu A cannot be ruled out. FluA angiten in the sample may be below the detection limit of the test.Performed By: #### HIV12 #### [facility] [address] [place] [address] Dr. Benoit DiggsINFLUBNEGHSKIMBERLY CentervilleComment on above: Result Comment: Negative for Flu B protein antigen. Infection due to Flu B cannot be ruled out. FluB antigen in the sample may be below the detection limit of the test.Performed By: #### HIV12 #### [facility] [address] [place] [address] Dr. Benoit Souza AGNegativeNormalNEGATIVE SEE COMMENTThe [facility] on above:Performed By: #### HIV12 #### [facility] [address] [place] [address] Dr. Benoit Gonzalez AGNegativeNormalNEGATIVE SEE COMMENTThe [facility] HospitalComment on above:Performed By: #### HIV12 #### [facility] [address] [place] [address] Dr. Benoit DiggsINTERNAL CONTROLSWithin Normal LimitsNormalWithin Normal Limits The [facility] HospitalComment on above:Performed By: #### HIV12 #### [facility] [address] [place] [address] Dr. Benoit DiggsPROF CHEM 8 (BAS METB)on 27-76-4253Iveuj gap [Moles/Vol]11.6 mmol/LNormalThe [facility] HospitalComment on above:Performed By: #### CBC #### [facility] [address] [place] [address] Dr. Benoit DiggsCalcium [Mass/Vol]8.2 mg/dLCritically low8.5-10.1The [facility] HospitalComment on above:Performed By: #### CBC #### [facility] [address] [place] [address] Dr. Benoit DiggsChloride [Moles/Vol]100 mmol/XTsyeug85-079DwtKettering Health Comment on above:Performed By: #### CBC #### [facility] [address] [address] [address] Benoit DiggsCO2 [Moles/Vol]23.9 mmol/HWhkwfk89.0-32.0The [facility] Comment on above:Performed By: #### CBC #### [facility] [address] [address] [address] Benoit DiggsCreatinine [Mass/Vol]0.48 mg/dLCritically low0.55-1.02The [facility] HospitalComment on above:Performed By: #### CBC #### [facility] [address] [place] [address] Dr. Laboy ChangEGFR-AF IVORIAN>60Normal>=60The [facility] HospitalComment on above:Performed By: #### CBC #### [facility] [address] [address] [address] Benoit KrausGFR-NON AF IVORIAN>60Normal>=60The [facility] HospitalComment on above:Performed By: #### CBC #### [facility] [address] [place] [address] Dr. Benoit DiggsGlucose [Mass/Vol]94 mg/lECjxglu46-712Gcy [facility] Comment on above:Performed By: #### CBC #### [facility] [address] [address] [address] Benoit DiggsPotassium [Moles/Vol]3.5 mmol/LNormal3.5-5.1The [facility] Comment on above:Performed By: #### CBC #### [facility] [address] [address] [address] Benoit DiggsSodium [Moles/Vol]132 mmol/LCritically cni649-914Vgn [facility] HospitalComment on above:Performed By: #### CBC #### [facility] [address] [address] [address] Benoit DiggsUrea nitrogen [Mass/Vol]6.0 mg/dLCritically low7.0-18.0The [facility] HospitalComment on above:Performed By: #### CBC #### [facility] [address] [address] [address] Benoit DiggsUrea nitrogen/Creatinine [Mass ratio]12.5 mg/mgNormalThe [facility] HospitalComment on above:Performed By: #### CBC #### [facility] [address] [address] [address] Benoit DiggsRESPIRATORY PANEL PLUSon 70-00-5863BlbjinesukByh detectedNormal NOT DETECTEDThe [facility] HospitalComment on above:Performed By: #### RSPLUS ####[facility] [address] [address]. Benoit Tierney ParapertusisNot detectedNormalNOT DETECTEDThe [facility] Comment on above:Performed By: #### RSPLUS ####[facility] [address] [place], [place] [address]Dr. Benoit Fuller. PertussisNot detected NormalNOT DETECTEDThe [facility] HospitalComment on above:Performed By: #### RSPLUS ####[facility] [address] [address]Dr. Benoit DiggsChlamydia PneumoniaeNot detectedNormalNOT DETECTEDThe [facility] HospitalComment on above:Performed By: #### RSPLUS ####[facility] [address] [address]Dr. Benoit Diggs Coronavirus 229ENot detectedNormalNOT DETECTEDThe [facility] HospitalComment on above:Performed By: #### RSPLUS ####[facility] [address] [address]Dr. Benoit DiggsCoronavirus XZC3Lvz detectedNormalNOT DETECTEDThe [facility] HospitalComment on above:Performed By: #### RSPLUS ####[facility] [address] [place], [place] [address]Dr. Benoit DiggsCoronavirus JV05Chm detectedNormalNOT DETECTEDThe [facility] Comment on above:Performed By: #### RSPLUS ####[facility] [address] [place], [place] [address]Dr. Benoit DiggsCoronavirus HI78Xwg detected NormalNOT DETECTEDThe [facility] HospitalComment on above:Performed By: #### RSPLUS ####[facility] [address] [place], [place] [address]Dr. Benoit DiggsInfluenza A H1 2009DetectedAbnormalNOT DETECTEDThe [facility] HospitalComment on above:Performed By: #### RSPLUS ####[facility] [address] [place], [place] [address]Dr. Benoit DiggsInfluenza A H3 Not detectedNormalNOT DETECTEDThe [facility] HospitalComment on above:Performed By: #### RSPLUS ####[facility] [address] [place], [place] [address]Dr. Benoit DiggsInfluenza BNot detectedNormalNOT DETECTEDThe [facility] HospitalComment on above:Performed By: #### RSPLUS ####[facility] [address] [place], [place] [address]Dr. Benoit Diggs MetapneumovirusNot detectedNormalNOT DETECTEDThe [facility] HospitalComment on above:Performed By: #### RSPLUS ####[facility] [address] [place], [place] [address]Dr. Benoit DiggsMycoplas. PneumoniaeNot detectedNormal NOT DETECTEDThe [facility] HospitalComment on above:Performed By: #### RSPLUS ####[facility] [address] [place], [place] [address]Dr. Karylan ChangParainfluenza 1Not detectedNormalNOT DETECTEDThe [facility] Comment on above:Performed By: #### RSPLUS ####[facility] [address] [place], [place] [address]Dr. Yilan ChangParainfluenza 2Not detected NormalNOT DETECTEDThe [facility] HospitalComment on above:Performed By: #### RSPLUS ####[facility] [address]wifw[address]df[address] [place], [place] [address]Dr. Yilan ChangParainfluenza 3Not detectedNormalNOT DETECTEDThe [facility] HospitalComment on above:Performed By: #### RSPLUS ####[facility] [address] [place], [place] [address]Dr. Benoit DiggsParainfluenza 4Not detectedNormalNOT DETECTEDThe [facility] on above:Performed By: #### RSPLUS ####[facility] Hbwmvxsqms[address] [place], [place] [address]Dr. Benoit ChangRhino/EnterovirusNot detectedNormalNOT DETECTEDThe [facility] HospitalComcorewell health [facility] on above:Performed By: #### RSPLUS ####[facility] [address]wen[address] [place], [place] [address]Dr. Benoit DiggsJuanis Header 1RESPIRATORY PANEL: VIRUSESNormalThe [facility] HospitalComment on above: Performed By: #### RSPLUS ####[facility] Avhgibwqld[address] [place], [place] [address]Dr. Benoit Licea Header 2RESPIRATORY PANEL: BACTERIA NormalThe [facility] HospitalComcorewell health lud[facility] on above:Performed By: #### RSPLUS ####[facility] Przdrmfngc[address] [place], [place] [address]Dr. Benoit DiggsRSVNot detectedNormalNOT DETECTEDThe [facility] on above:Performed By: #### RSPLUS ####[facility] Z[address]nlz[address] [place], [place] [address]Dr. Benoit Farias-CoV-2 (COVID-19) RNA RANDOLPH+probe Ql (Unsp spec)Not detectedNormalNOT DETECTEDThe [facility] on above: Performed By: #### RSPLUS ####[facility] [address] [place], [place] [address]Dr. Benoit Vee Comment: When diagnostic testing is [...] for this test is supported by the [employer] of Health and Human Service's declaration that [...] longer be used).Performed By: #### HIV12 #### [facility] [address] [place] [address] Dr. Benoit TURCIOSon [id number]R SEEN [facility] on above:Performed By: #### HIV12 #### [facility] [address] [place] [address] Dr. Benoit Loco identified Cx Nom (U)INDICATEDNoalThCleveland Clinic on above:Performed By: #### HIV12 #### [facility] [address] [place] [address] Dr. Benoit Norton SEENNormalNONE SEENThe [facility] on above:Performed By: #### HIV12 #### [facility] [address] [place] [address] Dr. Benoit Beckettystals LM Nom (Urine sed)NONE SEENNormalNONE SEENThe [facility] on above:Performed By: #### HIV12 #### [facility] [address] [place] [address] Dr. Benoit Krauspithelial cells LM Ql (Urine sed)MODERATEAbnormalNONE SEEN /RARE The [facility] HospitalComcorewell health ludington hospital on above:Performed By: #### HIV12 #### [facility] [address] [place] [address] Dr. Benoit HessE SEENNormalNONE SEENThe [facility] on above:Performed By: #### HIV12 #### [facility] [address] [place] [address] Dr. Benoit JensenCflnzNAK9-5Ucwpib6-9Zql [facility] HospitalComment on above:Performed By: #### HIV12 #### [facility] [address] [address] [address] Benoit DiggsWBC5-10AbnormalNONE SEENThe [facility] HospitalComment on above: Performed By: #### HIV12 #### [facility] [address] [address] [address] Benoit Oseguera AUTO DIFFon [id number] #0.1 103/ulNormal0.0-0.1The [facility] Hospitalment on above:Performed By: #### CBC #### [facility] [address] [place] [address] Dr. Benoit DiggsBasophils/100 WBC (Bld)0.5 %Normal0.2-2.0[facility] Comment on above:Performed By: #### CBC #### [facility] [address] [place] [address] Dr. Benoit Aleman #0.4 103/ulNormal0.0-0.7The [facility] on above: Performed By: #### CBC #### [facility] [address] [place] [address] Dr. Benoit Krausosinophils/100 WBC (Bld)4.1 %Normal0.9-7.0[facility] Comment on above:Performed By: #### CBC #### [facility] [address] [place] [address] Dr. Benoit Krausrythrocyte distribution width (RBC) [Ratio]12.8 %Fxkpyr78.0-15.0 [facility] HealthComment on above:Performed By: #### CBC #### [facility] [address] [place] [address] Dr. Benoit DiggsHematocrit (Bld) [Volume fraction]31.4 %Critically low36.0-48.0 [facility] HealthComcorewell health lud[facility] hospital on above:Performed By: #### CBC #### [facility] [address] [place] [address] Dr. Benoit DiggsHemoglobin (Bld) [Mass/Vol]10.5 g/dLCritically low12.0-16.0The [facility] HospitalComment on above:Performed By: #### CBC #### [facility] [address] [place] [address] Dr. Benoit Amado #0.05 10e3/ulCritically high0.00-0.03The [facility] Comment on above:Performed By: #### CBC #### [facility] [address] [place] [address] Dr. Benoit Amado %0.5 %Normal0.0-0.5The [facility] HospitalComment on above: Performed By: #### CBC #### [facility] [address] [place] [address] Dr. Benoit Dennis #2.2 103/ulNormal1.2-3.8The [facility] HospitalComment on above:Performed By: #### CBC #### [facility] [address] [place] [address] Dr. Benoit Beckmanhocytes/100 WBC (Bld)21.9 %Stfolr57.5-60.0The [facility] HospitalComment on above:Performed By: #### CBC #### [facility] [address] [place] [address] Dr. Benoit Real DIFF REQNONormalThe [facility] HospitalComment on above: Performed By: #### CBC #### [facility] [address] [place] [address] Dr. Benoit Fisher (RBC) [Entitic mass]29.7 qpVemwjo82.7-34.0The [facility] HospitalComment on above:Performed By: #### CBC #### [facility] [address] [place] [address] Dr. Benoit Lima (RBC) [Mass/Vol]33.4 g/yGGxriso75.9-35.2The [facility] HospitalComment on above:Performed By: #### CBC #### [facility] [address] [place] [address] Dr. Yilan ChangMCV (RBC) [Entitic vol]89.0 hFUrfypu26.0-99.0The [facility] HospitalComment on above:Performed By: #### CBC #### [facility] [address] [place] [address] Dr. Benoit Castellano #0.6 103/ulNormal0.3-0.8The [facility] HospitalComment on above:Performed By: #### CBC #### [facility] [address] [place] [address] Dr. Benoit Funezocytes/100 WBC (Bld)5.7 %Normal1.7-12.0The [facility] Comment on above:Performed By: #### CBC #### [facility] [address] [place] [address] Dr. Benoit Amaya #6.8 103/ulCritically high1.4-6.5The [facility] Comment on above:Performed By: #### CBC #### [facility] [address] [place] [address] Dr. Benoit Herrerautrophils/100 WBC (Bld)67.3 %Jpfpaz98.0-75.0The [facility] HospitalComment on above:Performed By: #### CBC #### [facility] [address] [place] [address] Dr. Benoit Pearllet mean volume (Bld) [Entitic vol]11.0 fLNormal9.5-13.5The [facility] HospitalComment on above:Performed By: #### CBC #### [facility] [address] [place] [address] Dr. Benoit RaderT215 103/qlOsepit101-149Uue [facility] HospitalComment on above: Performed By: #### CBC #### [facility] [address] [place] [address] Dr. Benoit DiggsRBC3.53 106/ulCritically low4.20-5.40The [facility] HospitalComment on above:Performed By: #### CBC #### [facility] [address] [place] [address] Dr. Benoit DiggsWBC10.2 103/ulNormal4.0-11.0[facility] HealthComment on above:Performed By: #### CBC #### [facility] [address] [place] [address] Dr. Benoit DiggsGLUCOSE - 1HRon 15-81-9508Sqednbh [Mass/Vol]116 mg/dLCritically ueld98-972ZzpKettering HealthComment on above:Performed By: #### GLU1HR ####[facility] [address] [address]Dr. Benoit Mcconnell ACOG PANEL 2: 21 to 29on 08-13-2022..NormalKettering Health Comment on above:Performed By: #### CBC #### [facility] [address] [place] [address] Dr. Benoit Flores Gdln ACOG Pdytvwk13-46OfsudiEeaCrystal Clinic Orthopedic CenterComment on above:Performed By: #### CBC #### [facility] [address] [place] [address] Dr. Benoit DiggsDIAGNOSIS:CommentGrand Lake Joint Township District Memorial HospitalComcorewell health lud[facility] hospital on above: Result Comment: NEGATIVE FOR INTRAEPITHELIAL LESION OR MALIGNANCY.Performed By: #### CBC #### [facility] [address] [place] [address] Dr. Benoit DiggsMethodology:CommentNoCrystal Clinic Orthopedic CenterComment on above: Result Comment: This liquid based ThinPrep(R) pap test was screened with the use of an image guided system.Performed By: #### CBC #### [facility] [address] [place] [address] Dr. Benoit DiggsNote:CommentMemorial Health System Marietta [facility] Hospital on above:Result Comment: The Pap smear is a screening test designed to aid in the detection of premalignant and malignant conditions of the uterine cervix. It is not a diagnostic procedure and should not be used as the sole means of detecting cervical cancer. Both false-positive and false-negative reports do occur. .Performed By: #### CBC #### [facility] [address] [place] [address] Dr. Benoit DgigsPerformed by:CommentMemorial Health System Marietta Memorial Hospital on above: Result Comment: Cynthia Smith, Refrigerator Mover (ASCP)Performed By: #### CBC #### [facility] [address] [place] [address] Dr. Benoit DiggsReflex Criteria:CommentMemorial Health System Marietta Memorial Hospital on above:Result Comment: The HPV DNA reflex criteria were not met with this specimen result therefore, no HPV testing was performed. .Performed By: #### CBC #### [facility] [address] [place] [address] Dr. Benoit DiggsSpecimen adequacy:CommentMemorial Health System Marietta Memorial Hospital on above:Result Comment: Satisfactory for evaluation. No endocervical component is identified.Performed By: #### CBC #### [facility] [address] [place] [address] Dr. Benoit DiggsCHLAMYDIA/GONOCOCCUS RANDOLPH (SWAB/URINE/PAPon 46-32-1723Osdlicpev trachomatis, NAANegativeNormalNegativeThe [facility] HospitalComcorewell health ludington hospital on above: Performed By: #### HIV12 #### [facility] [address] [place] [address] Dr. Benoit DiggsNeisseria gonorrhoeae, NAANegativeNormalNegativeThe [facility] on above:Performed By: #### HIV12 #### [facility] [address] [place] [address] Dr. Benoit Hampton PREG INCOMPLETE ANATOMYon [id number] PREG INCOMPLETE ANATOMY EXAMINATION: US PREG INCOMPLETE [...] Electronically authenticated by: MYLENE SULLIVAN Date: 2022-08-07 20:09[facility] PREG ANATOMY SINGLEon [id number] PREG ANATOMY SINGLE EXAMINATION: US PREG ANATOMY [...] Electronically authenticated by: AISHWARYA MAGALLON Date: 2022-07-25 17:11NoCrystal Clinic Orthopedic CenterAFP MATERNAL FOR SPINA BIFIDAon 65-12-2588LCE MoM0.55NoCrystal Clinic Orthopedic CenterComment on above:Performed By: #### HIV12 #### [facility] [address] [place] [address] Dr. Benoit Chavarria Value20.0 ng/mLNChillicothe HospitalComment on above: Performed By: #### HIV12 #### [facility] [address] [place] [address] Dr. Benoit Chavarria, Serum for Spina BifidaReWood County Hospital Comment on above:Performed By: #### HIV12 #### [facility] [address] [place] [address] Dr. Benoit PricementChillicothe VA Medical CenterComment on above:Result Comment: Caitlin Palafox, Ph.D., [facility] Director . References: Available Upon Request. . Multiples Of Median Cutoffs For AFP Elevations Caro 2.5 Black 2.8 IDD 2.0 Twins 4.5 Abbreviation Definitions IDD - Insulin Dep Diabetes OSBR - Open Spina Bifida Risk . For further inquiries contact [employer] at [phone]. . This test was developed and its performance characteristics determined by [employer]. It has not been cleared or approved by the Food and Drug Administration.Performed By: #### HIV12 #### [facility] [address] [place] [address] Dr. Benoit Rodriguez Age Collection Date18.1 weeksGrand Lake Joint [facility] Hospital Comment on above:Performed By: #### HIV12 #### [facility] [address] [place] [address] Dr. Benoit Gillis, Age Based onUltTwin City HospitalComment on above:Result Comment: 13:1 on 06/06/2022 Recalculations are not recommended when gestational dating by LMP and ultrasound are within 10 days.Performed By: #### HIV12 #### [facility] [address] [place] [address] Dr. Benoit DiggsInsulin Dep DiabetesNoNChillicothe HospitalComment on above:Performed By: #### HIV12 #### [facility] [address] [place] [address] Dr. Benoit DiggsInterpretationChillicothe VA Medical CenterComment on above: Result Comment: Interpretation: [...] Customer Services to discuss available options. The [employer] recommends amniocentesis be offered to women age 35 and older.Performed By: #### HIV12 #### [facility] [address] [place] [address] Dr. Benoit Vornajoo Age at EDD22.1 yrGrand Lake Joint Township District Memorial HospitalComment on above:Performed By: #### HIV12 #### [facility] [address] [place] [address] Dr. Benoit Scottltiplmally GestationNoNChillicothe HospitalComment on above: Performed By: #### HIV12 #### [facility] [address] [place] [address] Dr. Benoit DiggsOSBR Risk 1 [id number] Lake Joint Township District Memorial HospitalComment on above: Performed By: #### HIV12 #### [facility] [address] [place] [address] Dr. Benoit Stockton.NormalKettering HealthComment on above:Performed By: #### HIV12 #### [facility] [address] [place] [address] Dr. Benoit MorrisCaucasianNChillicothe HospitalComment on above: Performed By: #### HIV12 #### [facility] [address] [place] [address] Dr. Benoit DiggsTest Results:NegativeGrand Lake Joint Township District Memorial HospitalComment on above: Performed By: #### HIV12 #### [facility] [address] [place] [address] Dr. Benoit Ramirez B SURFACE ANTIGEN SCREENon 51-72-5736PMbFi ScreenNegative NormalNegativeThe [facility] on above:Performed By: #### HIV12 #### [facility] [address] [place] [address] Dr. Benoit Watt C VIRUS AB W/ REFLEX QUANTon [id number] AB<0.1Normal 0.0-0.9[facility] on above:Performed By: #### HIV12 #### [facility] [address] [place] [address] Dr. Benoit DiggsInterpretation:CommentNormalThe [facility] on above:Result Comment: Negative Not infected with HCV, unless recent infection is suspected or other evidence exists to indicate HCV infection.Performed By: #### HIV12 #### [facility] [address] [place] [address] Dr. Benoit DiggsHIV 1 AND 2 WITH REFLEXon 26-48-9525IOE Screen 4th Generation wRfxNon-ReactiveNormalNon ReactiveThe [facility] on above:Result Comment: HIV Negative HIV-1/HIV-2 antibodies and HIV-1 p24 antigen were NOT detected. There is no laboratory evidence of HIV infection.Performed By: #### HIV12 #### [address] [address] Dr[address] Benoit DiggsRPR QUANTon 19-85-1548Rkbbs Plasma Reagin, QuantNon-Reactive NormalNonRea<1:1[facility] on above:Result Comment: Please Note: This test does not meet current guidelines for screening and diagnosis of syphilis. This test is intended for following treatment response in patients being treated for syphilis infection. To screen for syphilis infection, a reflex cascade that includes both RPR and a treponema-specific assay should be utilized, such as Treponema pallidum (Syphilis) Screening [place] (237378) or Rapid Plasma Reagin (RPR) Test With Reflex to Quantitative RPR and Confirmatory Treponema pallidum Antibodies (270008).Performed By: #### HIV12 #### [address] [address] Dr[address] Benoit DiggsRUBELLA AB IGGon 42-32-4594Uenowsc Antibodies, IgG3.22 index NormalImmune >0.99[facility] on above:Result Comment: Non- immune <0.90 Equivocal 0.90 - 0.99 Immune >0.99Performed By: #### CBC #### [facility] [address] [address] [address] Benoit Hampton PREG <14 WKSon 57-69-1525HC PREG <14 WKSEXAMINATION: US PREG <14 WKS [...] Electronically authenticated by: MYLENE SULLIVAN Date: 2022-06-06 22:25NoUC [facility] AUTO DIFFon [id number] #0.1 103/ulNormal0.0-0.1[facility] HealthComment on above:Performed By: #### CBC #### [facility] [address] [place] [address] Dr. Benoit Taborsophils/100 WBC (Bld)0.6 %Normal0.2-2.0[facility] Comment on above:Performed By: #### CBC #### [facility] [address] [place] [address] Dr. Benoit Aleman #0.3 103/ulNormal0.0-0.7The [facility] HospitalComment on above: Performed By: #### CBC #### [facility] [address] [place] [address] Dr. Benoit Krausosinophils/100 WBC (Bld)4.1 %Normal0.9-7.0[facility] Comment on above:Performed By: #### CBC #### [facility] [address] [place] [address] Dr. Benoit Krausrythrocyte distribution width (RBC) [Ratio]13.9 %Yrrdfv77.0-15.[address] [facility] HospitalComment on above:Performed By: #### CBC #### [facility] [address] [place] [address] Dr. Benoit DiggsHematocrit (Bld) [Volume fraction]36.0 %Cxxuov78.0-48.0The [facility] HospitalComment on above:Performed By: #### CBC #### [facility] [address] [place] [address] Dr. Benoit DiggsHemoglobin (Bld) [Mass/Vol]12.0 g/oPTvsetz42.0-16.0The [facility] HospitalComment on above:Performed By: #### CBC #### [facility] [address] [place] [address] Dr. Benoit Amado #0.03 10e3/ulNormal0.00-0.03The [facility] HospitalComment on above:Performed By: #### CBC #### [facility] [address] [place] [address] Dr. Benoit Amado %0.4 %Normal0.0-0.5The [facility] HospitalComment on above: Performed By: #### CBC #### [facility] [address] [place] [address] Dr. Benoit Dennis #2.7 103/ulNormal1.2-3.8The [facility] HospitalComment on above:Performed By: #### CBC #### [facility] [address] [place] [address] Dr. Benoit Pantojamphocytes/100 WBC (Bld)33.2 %Uemfzw57.5-60.0The [facility] HospitalComment on above:Performed By: #### CBC #### [facility] [address] [place] [address] Dr. Benoit DiggsMANUAL DIFF REQNONormalThe [facility] HospitalComment on above: Performed By: #### CBC #### [facility] [address] [place] [address] Dr. Benoit Fisher (RBC) [Entitic mass]29.4 cuVkamuz16.7-34.0The [facility] HospitalComment on above:Performed By: #### CBC #### [facility] [address] [address] [address] Benoit LimaHC (RBC) [Mass/Vol]33.3 g/qHHnpkkz31.9-35.2The [facility] HospitalComment on above:Performed By: #### CBC #### [facility] [address] [address] [address] Benoit LimaV (RBC) [Entitic vol]88.2 gNUdulkr32.0-99.0The [facility] HospitalComment on above:Performed By: #### CBC #### [facility] [address] [place] [address] Dr. Benoit Castellano #0.5 103/ulNormal0.3-0.8The [facility] HospitalComment on above:Performed By: #### CBC #### [facility] [address] [place] [address] Dr. Benoit Funezocytes/100 WBC (Bld)6.6 %Normal1.7-12.0The [facility] Comment on above:Performed By: #### CBC #### [facility] [address] [address] [address] Benoit Amaya #4.4 103/ulNormal1.4-6.5The [facility] HospitalComment on above:Performed By: #### CBC #### [facility] [address] [place] [address] Dr. Benoit Herrerautrophils/100 WBC (Bld)55.1 %Nvjuzr18.0-75.0The [facility] HospitalComment on above:Performed By: #### CBC #### [facility] [address] [address] [address] Benoit Pearllet mean volume (Bld) [Entitic vol]11.0 fLNormal9.5-13.5The [facility] HospitalComment on above:Performed By: #### CBC #### [facility] [address] [address] [address] Benoit DiggsPLT225 103/ihDcxhvw997-509Kzn [facility] Hospitalment on above: Performed By: #### CBC #### [facility] [address] [address] [address] Benoit DiggsRBC4.08 106/ulCritically low4.20-5.40The [facility] Hospitalment on above:Performed By: #### CBC #### [facility] [address] [address] [address] Benoit DiggsWBC8.1 103/ulNormal4.0-11.0The [facility] Hospitalment on above: Performed By: #### CBC #### [facility] [address] [address] [address] Benoit DiggsCULTURE URINEon 46-25-7704MTNSTKJ URINECulture Observations: MODERATE GROWTH OF MIXED GENITAL RIZWAN. NO POTENTIAL PATHOGENS SEEN.NormalThe [facility]aritan Hospitalment on above:Performed By: #### URCX ####[facility] [address] [address]Dr. Benoit Diggs GLYCOHEMOGLOBIN A1Con [id number] RECOMMENDATIONSEE BELOWNoCrystal Clinic Orthopedic CenterComcorewell health ludington hospital on above:Result Comment: ADA RECOMMENDED LIMIT 4.0 - 6.0 ADA THERAPEUTIC TARGET < 7.0 ACTION SUGGESTED > 7.0Performed By: #### CBC #### [facility] [facility] [address] [place] [address] Dr. Benoit DiggsGlucose [Mass/Vol]105 mg/dLNoLakeHealth TriPoint Medical Center on above:Performed By: #### CBC #### [facility] [address] [place] [address] Dr. Benoit DiggsHbA1c (Bld) [Mass fraction]5.3 %Normal4.5-6.2[facility] on above:Performed By: #### CBC #### [facility] [address] [address] [address] Benoit Flowers BOX TEST PT SEND OUTon 10-51-2359ICCX TO REF LAB06/06/2022 NormalThe [facility] on above:Performed By: #### HIV12 #### [facility] [address] [address] [address] Benoit DiggsTYPE AND SCREENon 43-35-5429NLWU AND SCREENNegativeGrand Lake Joint Township District Memorial HospitalComment on above:Performed By: #### TNS #### [facility] [address] [place] [address] Dr. Benoit DiggsPREG QUANT HCGon 84-77-0138NNJ YCNKG31740 mIU/mLNormalKettering HealthComment on above:Performed By: #### CBC #### [facility] [address] [address] [address] Benoit DiggsHCG RANGESEE BELOWGrand Lake Joint Township District Memorial HospitalComment on above: Result Comment: 5-50 0-1 WEEK 40-300 1-2 WEEKS 100-1,000 2-3 WEEKS 500-6,000 3-4 WEEKS 5,000-200,000 1-2 MONTHS 10,000-100,000 2-3 MONTHS 3,000-50,000 2ND TRIMESTER 1,000-50,000 3RD TRIMESTERPerformed By: #### CBC #### [facility] [address] [place] [address] Dr. Benoit Diggs Vital Signs Date TimeVital SignValuePerforming KbsohvzewXgugarwq43-94-8068 10:55-0500Body mass index (BMI) [Ratio]53.47 kg/m2Gia LYNN Work Phone: [facility] HospitalPtapdbefoc51-19-1609 10:55-0500Body .37 kgGia LYNN Work Phone: [phone] HospitalSsdaekuhnc76-30-1442 10:55-0500Diastolic blood vpmkovpk42 mm[Hg]Gia LYNN Work Phone: [phone] HospitalPmlqnhdcxe33-12-7270 10:55-0500Systolic blood uxqpafdm602 mm[Hg]Gia LYNN Work Phone: [facility] HospitalNjnepvhbpx81-77-1837 13:55-0400Body mass index (BMI) [Ratio]53.12 kg/n9VehiiJefferson Howard DO Work Phone: [facility] HospitalBswedphnoq16-07-5550 13:55-0400Body khvfme036.52 kgCorey Anita DO Work Phone: 1(866)726-[address] [place], [place] [address]Dxqobuqadn67-75-7709 13:55-0400Diastolic blood ddsghmfa65 mm[Hg]Jefferson Anita DO Work Phone: [phone])747-[address] [place], [place] [address]Dhitjakirs87-83-5109 13:55-0400Systolic blood mm[Hg]Jefferson Anita DO Work Phone: 1(410)613-[address] [place], [place] [address]Yrrgippuhg77-83-8503 14:07-0400Body mass index (BMI) [Ratio]54 kg/m2Amy Vamsi LYNN Work Phone: 1([phone])650-[address] [place], [place] [address]Kgoprnzkpt28-88-3164 14:07-0400Body .64 kgAmy Vamsi LYNN Work Phone: [phone])377-[address] [place], [place] [address]Gtrdqpknyh04-71-8910 14:07-0400Diastolic blood qxjoikiz36 mm[Hg]Gia LYNN Work Phone: [phone] [place], [place] [address]Nbtyoktqip04-97-0117 14:07-0400Systolic blood mpamjwlp208 mm[Hg]Gia LYNN Work Phone: 1(091)796-[address] [place], [place] [address]Hofapjlkpm50-53-4825 13:59-0400Body mass index (BMI) [Ratio]53.17 kg/f6Yvpqz Anita DO Work Phone: 1(085)039-[address] [place], [place] [address]Kxxsairuzs88-61-8659 13:59-0400Body .64 kgCorey Anita DO Work Phone: [phone] [place], [place] [address]Otezjsnvgt56-90-1647 13:59-0400Diastolic blood squyclcl39 mm[Hg]Jefferson Anita DO Work Phone: 1(108)401-[address] [place] [address]-19-2025 13:59-0400Systolic blood mm[Hg]Jefferson Anita DO Work Phone: 1(095)080-[address] [place], [place] [address]Pmaeftzruk31-41-7930 14:05-0400Body mass index (BMI) [Ratio]53.51 kg/u5RewlgHealthAlliance Hospital[facility]07-17-2025 14:05-0400Body weight 128.46 kgHealthAlliance Hospital[facility]07-17-2025 14:05-0400Diastolic blood uyizxaut07 mm[Hg][facility]07-17-2025 14:05-0400Systolic blood fukkpmnb362 mm[Hg][facility]04-16-2025 10:44-0400Body mass index (BMI) [Ratio] 52.91 kg/v7Vgncr Anita DO Work Phone: 1(933)651-[address] [place], [place] [address]Mwontanlfa23-06-0601 10:44-0400Body gzslwo747.01 kgCorey Anita DO Work Phone: 1(278)365-[address] [place] [address]-16-2025 10:44-0400Diastolic blood uctikzxy41 mm[Hg]Jefferson Anita DO Work Phone: 1(452)110-[address] [place] [address]-16-2025 10:44-0400Systolic blood mm[Hg]Jefferson Anita DO Work Phone: 1(942)225-[address] [place], [place] [address]Pnozzdsyzw84-46-2057 13:48-0400Body mass index (BMI) [Ratio]52.93 kg/f2Tmkcx Anita DO Work Phone: 1(607)017-[address] [place], [place] [address]Frvracnmcz83-72-9273 13:48-0400Body tondel250.06 kgCorey Anita DO Work Phone: 1(647)000-[address] [place], [place] [address]Wnthqodluh87-59-9591 13:48-0400Diastolic blood mgdasqcm62 mm[Hg]Jefferson Anita DO Work Phone: 1(365)611-[address] [place] [address]-31-2025 13:48-0400Systolic blood dujrhezb053 mm[Hg]Jefferson Anita DO Work Phone: 1(646)551-[address] [place] [address]-05-2025 10:54-0500Body mass index (BMI) [Ratio]52.93 kg/m2Gia LYNN Work Phone: 1(155)085-[address] [place] [address]-05-2025 10:54-0500Body eqnaoc815.06 kgGia LYNN Work Phone: 1(825)600-[facility] [address]Iblbmvgfie46-02-0293 10:54-0500Diastolic blood kppywull54 mm[Hg]Gia LYNN Work Phone: [facility] HospitalVhtvxeyclk37-09-1286 10:54-0500Systolic blood hxtarmci720 mm[Hg]Gia LYNN Work Phone: [facility] HospitalOqjhtfmzhy69-28-5015 12:56-0500Body mass index (BMI) [Ratio]53.09 kg/z4Ibjdk Anita DO Work Phone: 1(944)783-[address] [place], [place] [address]Idnybhqhfa26-10-8064 12:56-0500Body rujxjg430.46 kgCorey Anita DO Work Phone: 1(073)391-[facility] HospitalEifaukqdwg82-94-5358 12:56-0500Diastolic blood fixpejcf64 mm[Hg]Jefferson Anita DO Work Phone: 1(113)185-[address] [place], [place] [address]Ufkystsseg67-93-9429 12:56-0500Systolic blood mesiqulw505 mm[Hg]Jefferson Anita DO Work Phone: 1(870)835-[address] [place], [place] [address]Peugxzaowo22-22-7505 08:42-0500Body mass index (BMI) [Ratio]53.55 kg/y4Yamzw Anita DO Work Phone: 1(030)082-[address] [place], [place] [address]Ljvjfhvghi61-89-5669 08:42-0500Body fbuupj257.55 kgCorey Anita DO Work Phone: 1(669)679-[facility] HospitalOijnibpsqk97-34-4743 14:06-0500Diastolic blood itjpywok66 mm[Hg]Manuel Noel MD Work Phone: [facility]11-19-2024 14:06-0500 Heart rate77 /minManuel Noel MD Work Phone: [facility]11-19-2024 14:06-0500 Respiratory rate18 /minManuel Noel MD Work Phone: [facility]11-19-2024 14:06-0500 SaO2% (BldA) [Mass fraction]98 %Manuel Noel MD Work Phone: [facility]11-19-2024 14:06-0500 Systolic blood wloqkhro540 mm[Hg]Manuel Noel MD Work Phone: 1(320)334-[address] [place], [place] [address]3311-19-2024 12:39-0500 Body uihpwk183.94 cmManuel Noel MD Work Phone: [phone])[address]11-19-2024 12:39-0500 Body dvwidx633 kgManuel Noel MD Work Phone: [phone])[address]11-05-2024 09:31-0500 Body alsyai251.94 cmManuel Noel MD Work Phone: [phone])[address]11-05-2024 09:31-0500 Body mass index (BMI) [Ratio]53.4 kg/m2Manuel Noel MD Work Phone: [phone])[address]11-05-2024 09:31-0500 Body ppzuwa830.16 kgManuel Noel MD Work Phone: 1(205)[address]09-28-2022 02:06-0400 Body nsbggu009.6992 kgDR DOCTOR [facility] HospitalComment on above: Performed By: #### HIV12 #### [facility] [address] [address] [address] Benoit Diggs Encounters Encounter DateEncounter TypeCare ProviderFacilityStart: 08-31-2025 End: 80-62-1780Xoxynx Epi LYNN Work Phone: [facility] [place] [facility]YNStart: 08-31-2025 End: 67-86-7162Qacubr Epi LYNN Work Phone: [facility] [place] [facility]BGYNStart: 08-31-2025 End: 46-02-8180Mzqedg outpatient visit 15 minutesGia LYNN Work Phone: NODA Emma OBGYNComment on above:Second trimester ([facility]); 23 weeks gestation of ([facility]); Diabetes mellitus screeningStart: 08-31-2025 End: 61-64-7471foeqxpyuajRDC RAMLIBANNot AvailableStart: 43-28-1842Pmw-patient / Non-visit(Lucinda) Bello Marks DO-[facility] Work Phone: Start: 08-29-2025 End: 52-13-5615hvaipvldreUsii E Hay ([facility])-LAB Path Spec Emma HospStart: 08-29-2025 End: 48-76-5590Kfgdiksm ReferredBello Marks ([facility]) DO-LAB Path Spec [facility] Start: 08-23-2025 End: 75-67-3492oanhouqfvrGLLNILDZZanesville City Hospitaltart: 08-23-2025 End: 55-97-2050Esmgrqrqw department patient visitMARGeneral Leonard [facility] HospitalStart: 08-10-2025 End: 90-05-5932ayrklhlvybEDRXN FAZIONot AvailableStart: 08-02-2025 End: 71-80-4587Spcgcg flowsheetCorey Anita DO Work Phone: [facility]BGYNStart: 08-02-2025 End: 74-34-4943Kbobuc flowsheetCorey Anita DO Work Phone: [facility] [place] [facility]BGYNStart: 08-02-2025 End: 78-70-3299Imwtlclkz Result EncounterCorey Anita DO Work Phone: NONU External Department UnsolicitedStart: 08-02-2025 End: 47-44-7311Ceseoc outpatient visit 15 minutesCorey Anita DO Work Phone: [facility] Emma OBGYNComment on above:Second trimester ([facility]); 19 weeks gestation of ([facility]); Screening, , for anatomic survey ([facility]); LGSIL of cervix of undetermined significanceStart: 08-02-2025 End: 02-89-8223rjzlkrsjtpMMCQX FAZIONot AvailableStart: 07-25-2025 End: 78-47-9150Ogbxlieyx Result EncounterAmy Vamsi PA Work Phone: no External Department UnsolicitedStart: 07-25-2025 End: 54-96-2782Qjlngmedb Result EncounterGia LYNN Work Phone: [facility] External Department UnsolicitedStart: 07-05-2025 End: 36-97-0696Wowfzl flowsheetGia LYNN Work Phone: NO [facility] OBGYNStart: 07-05-2025 End: 28-01-4375Rbzsvk flowsheetGia LYNN Work Phone: NO [facility] OBGYNStart: 07-05-2025 End: 02-57-8712Kcxsjsuo Result EncounterGia LYNN Work Phone: no External Department UnsolicitedStart: 07-05-2025 End: 64-38-9939Ljaupe outpatient visit 15 minutesAmy Vamsi LYNN Work Phone: NO Emma OBGYNComment on above:15 weeks gestation of ([facility]); Second trimester ([facility]); Exposure to STD; Vaginal discharge; NauseaStart: 07-05-2025 End: 06-04-5530wpehhxujviMAZ RAMEYNot AvailableStart: 06-07-2025 End: 59-14-8707Jlawcg flowsheetCorey Anita DO Work Phone: [facility] [place] [facility]BGYNStart: 06-07-2025 End: 35-67-8369Dhfwui flowsheetCorey Anita DO Work Phone: NO Emma OBGYNStart: 06-07-2025 End: 22-86-6932Rzolekwbo Result EncounterCorey Anita DO Work Phone: noms External Department UnsolicitedStart: 06-07-2025 End: 12-79-6760Iqnjue outpatient visit 15 minutesCorey Anita DO Work Phone: noms Emma OBGYNComment on above:First trimester ([facility]); 11 weeks gestation of ([facility]); Right ovarian cyst; Nausea; PCOS (polycystic ovarian syndrome)Start: 06-07-2025 End: 90-14-7525slhnrrrcvwRFKYE FAZIONot AvailableStart: 05-24-2025 End: 28-65-6986Ovxyvoric Result EncounterCorey Anita DO Work Phone: noms External Department UnsolicitedStart: 05-24-2025 End: 16-12-1360Ieaggjagz Result EncounterCorey Anita DO Work Phone: noms External Department UnsolicitedStart: 05-05-2025 End: 86-59-9548Mfkloz outpatient visit 5 minutesFazio Nurse [facility] Bcp ObNOMS BCP OBComment on above:GA: 7z5mSxtji: 05-05-2025 End: 01-74-0235hrcjqarrnbVNXWC FAZIONot AvailableStart: 04-14-2025 End: 12-88-5449Nlgygzdsi department patient visitFort Hamilton Hospitaltart: 02-09-2025 End: 05-15-6446Bifpjbhjh Result EncounterGeneric External Data ProviderNOMS External Department UnsolicitedStart: 02-09-2025 End: 36-88-1727Swadumosu Result EncounterGeneric External Data ProviderNOMS External Department UnsolicitedStart: 02-02-2025 End: 53-94-7318Fqbtqm flowsheetCorey Anita DO Work Phone: [facility] BCP OBStart: 02-02-2025 End: 14-35-4221Ouediy flowsheetCorey Anita DO Work Phone: [facility] BCP OBStart: 02-02-2025 End: 02-30-6106Wjdspr outpatient visit 15 minutesCorey Anita DO Work Phone: [facility] BCP OBComment on above:Encounter to discuss test results; Elevated TSHStart: 02-02-2025 End: 52-40-0114tanbiylefdOYDOT FAZIONot AvailableStart: 01-17-2025 End: 33-05-7283Wleyfas encounter procedureCorey Anita DO Work Phone: noms BCP OBComment on above:LGSIL of cervix of undetermined significanceStart: 01-17-2025 End: 35-00-3252lihszsqpazJqmu Naderer MD Work Phone: [facility] Work Phone: Start: 01-17-2025 End: 49-79-7092Luljnvmr Nicola Noel MD Work Phone: [facility]-LAB Path Spec Emma HospStart: 01-12-2025 End: 06-56-2961lgolmslrxmPLAIL FAZIONot AvailableStart: 01-03-2025 End: 70-73-5027cjdprsdgysNabc Naderer MD Work Phone: [facility] Work Phone: Start: 01-03-2025 End: 07-69-4460Wgakymsm Nicola Noel MD Work Phone: [facility]-LAB Path Spec [place] HospStart: 12-22-2024 End: 05-11-9916Neeups flowsheetGia LYNN Work Phone: noms BCP OBStart: 12-22-2024 End: 11-02-0298Muuklv flowsheetGia LYNN Work Phone: [facility] BCP OBStart: 12-22-2024 End: 67-88-8102Qsylikmuh Result EncounterGeneric External Data ProviderNOMS External Department UnsolicitedStart: 12-22-2024 End: 53-84-9067Ntuyydc encounter procedureGia LYNN Work Phone: noMS HealthcareStart: 12-22-2024 End: 76-29-3484Rkkcyzxd preventive med est patient 18-39 yrsGia LYNN Work Phone: noms BCP OBComment on above: control counseling (Primary Dx); Well woman exam with routine gynecological exam; Pelvic pain in femaleStart: 12-22-2024 End: 60-96-8267iopfnoqgvbBUT RAMEYNot AvailableStart: 12-02-2024 End: 72-07-1559Wksajpm encounter procedureCorey Anita DO Work Phone: noms BCP OBComment on above:Encounter for removal of etonogestrel implantStart: 12-02-2024 End: 39-76-1877idvyqmhksuJQDCV FAZIONot AvailableStart: 11-30-2024 End: 19-07-1807crqtowxrfbNJPFZ FAZIONot AvailableStart: 11-11-2024 End: 94-59-5022Uhjvlf flowsheetCorey Anita DO Work Phone: noms BCP OBStart: 11-11-2024 End: 44-16-9423Kblbqu flowsheetCorey Anita DO Work Phone: noms BCP OBStart: 11-11-2024 End: 38-54-6330Ogrnzlcpq Result EncounterGeneric External Data ProviderNOMS External Department UnsolicitedStart: 11-11-2024 End: 84-13-4742Rqctpc outpatient visit 15 minutesCorey Anita DO Work Phone: [facility]oms [facility] OBComment on above:Right ovarian cyst; Nausea; PCOS (polycystic ovarian syndrome)Start: 11-11-2024 End: 45-57-1865pvfdsdpcjfVMBQT FAZIONot AvailableStart: 80-44-3728Mkc-patient / Non-visitManuel Noel MD Work Phone: [facility] Work Phone: Start: 09-07-2024 End: 65-50-4717Efpnkfqvj to same day surgery centerManuel Noel MD Work Phone: [facility] Work Phone: Start: 09-07-2024 End: 08-91-0963yesfxskeymUmnz Naderer MD Work Phone: [facility] Work Phone: Start: 08-28-2024 End: 36-07-3602Nnbxjxylc department patient visitMARGinger ZANETroy Lopez HospitalStart: 08-24-2024 End: 83-18-4151Eqfichr encounter procedureManuel Noel MD Work Phone: [facility] Work Phone: Start: 07-01-2024 End: 14-41-1248Cexisxyrv Result EncounterGeneric External Data ProviderNOMS External Department UnsolicitedStart: 07-01-2024 End: 22-41-2117Kgdnoeevo Result EncounterGeneric External Data ProviderNOMS External Department UnsolicitedStart: 21-15-7144Shd-patient / Non-visitManuel Noel MD Work Phone: [facility] Work Phone: Start: 06-03-2024 End: 61-29-1594Opyhsreoy Result EncounterManuel Noel MD Work Phone: noms External Department UnsolicitedStart: 06-03-2024 End: 61-28-8197Bbvsjvrdq Result EncounterManuel Noel MD Work Phone: noms External Department UnsolicitedStart: 03-02-2024 Patient encounter procedureGeneric ProviderNOMS HealthcareStart: 12-23-2022 Encounter for general adult medical examination without abnormal findingsDR MANUEL [facility] Hospitaltart: 12-21-2022 End: 20-74-5480cztzlflfbyCC MARC A NADEREacility:I4Zzzvm: 12-21-2022 End: 14-56-8429Esrxwhjgf for general adult medical examination without abnormal findingsDR MANUEL MILTONacility:N4Qvlra: 12-01-2022 End: 01-41-6357Xjtoevvxhg and management of inpatientDR MANUEL NOEL Facility:Q5Qjsqh: 11-29-2022 End: 43-15-0864orulreqcjeOZ MANUEL MILTONacility:H5Wmqqb: 51-24-5905Yiqgtixpzo and management of inpatientDR MALIK GABRIEL .Facility:I8Fldae: 11-18-2022 End: 12-62-9298yiqmfafrioYT MANUEL A NADERERFacility:G2Dfmcj: 09-22-2022 End: 19-23-8660zgvembregsCSUWP PARKERFacility:M2Bnkhs: 09-09-2022 End: 33-87-4373hovwhdbnakUG MANUEL A NADERERFacility:I9Ehzvp: 08-07-2022 End: 12-69-7762lwxhccfmnnOV MANUEL A NADERERFacility:G5Aybam: 08-06-2022 End: 07-52-7008hivhmxbnpcEB MANUEL A NADERERFacility:I2Skrgn: 07-25-2022 End: 34-54-4624qxejvhxaprGA JEFFERSON HOWARD .Facility:G7Tmsoq: 07-13-2022 End: 34-48-4844ktqyfiorghKK BELLO MARKS .Facility:I5Rrywc: 07-11-2022 End: 81-13-7182ggwkqvfphdBF MANUEL A NADERERFacility:Z3Bzfup: 06-06-2022 End: 71-20-1187rzeryvedhzDI MANUEL A NADERERFacility:Z2Rcysn: 04-16-2022 End: 94-49-2915aizzgntahdPO DOCTOR MISCFacility:H1 Procedures DateProcedureProcedure DetailPerforming ClinicianStart: 86-37-5228Imulv dip stick/tablet rgnt non-auto w/o micrscpAmy Vamsi LYNN Work Phone: Start: 27-87-3613VBO,APTIMA HPV,AGE GDLNCorey Anita DO Work Phone: Start: 70-37-8966YNT, SERUM, OPEN SPINA BIFIDAAmy Vamsi LYNN Work Phone: Start: 89-44-7962Wsomo dip stick/tablet rgnt non-auto w/o micrscpAmy Vamsi LYNN Work Phone: Start: 50-46-6105NSVWFAOZM VAGINITIS (HTRX)Gia LYNN Work Phone: Start: 68-86-6441QYO THYROID STIM HORMONECorey Anita DO Work Phone: Start: 70-25-9295LCJ TESTCorey Anita DO Work Phone: Start: 05-05-2025 End: 22-70-4689Kzswn dip stick/tablet rgnt non-auto w/o micrscpCorey Anita DO Work Phone: Start: 60-77-5155WCF THYROID STIM HORMONECorey Anita DO Work Phone: Start: 93-30-2739Zinmi dip stick/tablet rgnt non-auto w/o micrscpCorey Anita DO Work Phone: Start: 55-01-6124Cqshi cultureMarginger Noel MD Work Phone: Start: 71-67-7106FFE,APTIMA HPV,AGE GDLNAmy Vamsi LYNN Work Phone: Start: 59-26-8240LOK INSERTION/REMOVAL OF CONTRACEPTIVE CAPSULECorey Anita DO Work Phone: Start: 38-81-2711JJV CBC WITH AUTO DIFFCorey Anita DO Work Phone: Start: 30-53-9259FsnkojnlyivvdqoeluethugelpFeuz Lana MATSON Work Phone: Start: 09-45-5690FOLW TRICHOMONAS/WET PREPGeneric External Data ProviderStart: 17-98-8689JG LUMBAR SPINE 2 OR 3VMarc Lana MATSON Work Phone: Start: 83-38-6625Bbdemmubqkj of Nonautologous Red Blood Cells into Peripheral Vein, Percutaneous ApproachDR DOCTOR MISCStart: 38-68-7192Vgojiftx of Products of Conception, External ApproachDR DOCTOR MISC Start: 87-34-6382Upzqkxwd of Amniotic Fluid, Therapeutic from Products of Conception, Via Natural or Artificial OpeningDR DOCTOR MISC Plan of Treatment DateCare ActivityDetailAuthorStart: 09-26-2025 End: 55-00-2490Yetnhey encounter /08/2025 2:40 PM EST Routine [facility] [address] [place] [address] [address] [place], [id number] Jefferson Howard, DO [address] [place] [address] [place] [address] NOMMaribell [place] OBGYNStart: 08-31-2025 End: 97-68-3249TXN panel - Blood by Automated countCBC Lab Routine Diabetes mellitus screening Expected: 08/31/2025 (Approximate), Expires: 08/31/2026[facility] Work Phone: comment on above:Expected: 08/31/2025 (Approximate), Expires: 08/31/2026Start: 08-31-2025 End: 90-36-9583Ofrdfxziqsf of glucose 1 hour after glucose challenge for glucose tolerance testGlucose tolerance, 1 hour Lab Routine Diabetes mellitus screening Expected: 08/31/2025 (Approximate), Expires: 08/31/2026NOMS HealthcareComment on above:Expected: 08/31/2025 (Approximate), Expires: 08/31/2026Start: 08-31-2025 End: 60-20-0638Ziziidr encounter vouikwzbi74/12/2025 1:40 PM EST Routine [facility] [place] [facility] [address] [place] [address] GIULIA STARR, [id number] Jefferson Howard, DO [address] [place] [address] NOMMaribell [place] OBGYNStart: 08-31-2025 End: 44-26-8547Mjcabao encounter procedureNOMS Emma OBGYNComment on above: ArrivedStart: 82-07-6807Gmnyeoxv identified in Urine by CultureUrine Culture [facility] Companytart: 71-10-5061Rdcbw cultureRegency Hospital Companytart: 08-10-2025 End: 11-84-6129Nvvlfliarbxj / ancillary services ufwtiqlgvm80/ 11:00 AM EDT Ancillary Procedure [facility] [address] [place] [address] [id number] [facility] OBGYNStart: 08-02-2025 End: 94-54-0738IO for pregnancyUS OB 14+ weeks anatomy scan Imaging Routine Screening, , for anatomic survey ([facility]) Expected: 08/02/2025, Expires: 11/02/2025[facility] Work Phone: comment on above:Expected: 08/02/2025, Expires: 11/02/2025Start: 08-02-2025 End: 52-58-1135Eoisogi encounter procedureNOMS BCP OBStart: 07-05-2025 End: 47-44-2823Wbfev fetoprotein, maternalAlpha fetoprotein, maternal Lab Routine 15 weeks gestation of ([facility]) Second trimester ([facility]) Expected: 07/05/2025 (Approximate), Expires: 08/04/2025[facility] Comment on above:Expected: 07/05/2025 (Approximate), Expires: 08/04/2025Start: 07-05-2025 End: 29-56-5468Aaodphb encounter procedureNOMS Emma OBGYNComment on above: ArrivedStart: 43-66-5601XHTTH-19 Vaccine ( season)COVID-19 Vaccine ( season)[facility] HealthcareStart: 02-99-1728Foibidcla vaccinationNOMS HealthcareStart: 06-07-2025 End: 60-66-8002Posbfcz encounter procedureNOMS BCP OBComment on above:Arrived Start: 05-05-2025 End: 65-10-2079HQH/RhABO/Rh Lab Routine Missed menses , unspecified gestational age ([facility]) Expected: 05/05/2025 (Approximate), Expires: 05/05/2026NOMS HealthcareComment on above:Expected: 05/05/2025 (Approximate), Expires: 05/05/2026Start: 05-05-2025 End: 76-65-4530Xgzbp type and Indirect antibody screen panel - BloodType and screen Lab Routine Missed menses , unspecified gestational age ([facility]) Expected: 05/05/2025 (Approximate), Expires: 05/05/2026[facility] Work Phone: comment on above:Expected: 05/05/2025 (Approximate), Expires: 05/05/2026Start: 05-05-2025 End: 46-76-2129Armpf of abuse panel - Urine by Screen methodRapid drug screen, urine Lab Routine , unspecified gestational age ([facility]) Encounter for supervision of normal first in first trimester ([facility]) Expected: 05/05/2025 (Approximate), Expires: 05/05/2026[facility]: Expected: 05/05/2025 (Approximate), Expires: 05/05/2026Start: 05-05-2025 End: 83-73-6975Nmkxcthhtdh [Units/volume] in Serum or PlasmaTSH Lab Routine Thyroid disease Expected: 05/05/2025 (Approximate), Expires: 05/05/2026[facility]:Expected: 05/05/2025 (Approximate), Expires: 05/05/2026Start: 02-02-2025 End: 84-62-9558Ctanxen encounter procedureNOMS [facility] OBComment on above:Arrived Start: 01-17-2025 End: 84-43-2896NepnlaigbgGpaiwmdjln Procedures Routine LGSIL of cervix of undetermined significance Expected: 01/17/2025 (Approximate), Expires: 01/17/2026[facility] Work Phone: comment on above:Expected: 01/17/2025 (Approximate), Expires: 01/17/2026Start: 01-12-2025 End: 94-39-9969Sjurqxpbqxmd / ancillary services hxaosvgjgg11/26/2025 1:00 PM EDT Ancillary Procedure [facility] [address] [place] [address] [facility] OBStart: 07-15-9672Erptarhw identified in Urine by CultureUrine [facility] 29[facility]5412[facility] 12-22-2024 End: 99-81-1162FP PelvisUS Pelvis w/ TV Imaging Routine Pelvic pain in female Expected: 12/22/2024, Expires: 12/22/2025[facility] HealthcareComment [facility]: Expected: 12/22/2024, Expires: 12/22/2025Start: 12-22-2024 End: 27-52-6395Pjzefsq encounter procedureNOMS BCP OBComment on above:Arrived Start: 12-02-2024 End: 17-73-2182Wjtvfpm encounter udjtnhlse64/13/2025 9:30 AM EST Procedure Visit [facility] [address] [place] [address] Jefferson Howard [facility] [place] [address] [place] [address] [facility] OBStart: 11-30-2024 End: 39-33-7432Dhifvaakgnqv / ancillary services mudorqvimw44/11/2025 2:00 PM EST Ancillary Procedure [facility] [address] [place] [address] [facility] OBStart: 11-11-2024 End: 96-88-9523HPOKJWTS Lab Routine Right ovarian cyst PCOS (polycystic ovarian syndrome) Expected: 11/11/2024 (Approximate), Expires: 11/11/2025[facility] Comment on above:Expected: 11/11/2024 (Approximate), Expires: 11/11/2025Start: 11-11-2024 End: 54-92-9777YL PelvisUS Pelvis w/ TV Imaging Routine Right ovarian cyst PCOS (polycystic ovarian syndrome) Expected: 11/11/2024, Expires: 11/11/2025[facility] HealthcareComment on above:Expected: 11/11/2024, Expires: 11/11/2025Start: 11-11-2024 End: 54-19-0739Czwbscw encounter aguizsjal75/23/2025 8:40 AM EST Office Visit [facility] [address] [place] [address] Jefferson Howard DO [address] [place] [address] [facility] OBComment on above:ArrivedStart: 02-31-2572CmtprysglRegency Hospital Companytart: 11-37-2203Eqglkcwuu vaccinationInfluenza Vaccine (#1)[facility] HealthcareStart: 07-16-0347Xqixttgfb B Vaccines (1 of 3 - 19+ 3-dose series)Hepatitis B Vaccines (1 of 3 - 19+ 3-dose series)[facility] HealthcareStart: 71-78-0867Vhhzybtksthb Vaccine: Pediatrics (0 to 5 Years) and At-Risk Patients (6 to 64 Years) (1 of 2 - PCV)Pneumococcal Vaccine: Pediatrics (0 to 5 Years) and At-Risk Patients (6 to 64 Years) (1 of 2 - PCV) [facility] HealthcareStart: 53-45-6024UPL Vaccines (1 - 3-dose series)HPV Vaccines (1 - 3-dose series)[facility] HealthcareStart: 58-74-9921Pketrvj of varicella vaccination Varicella Vaccines (1 of 2 - 13+ 2-dose series)[facility] HealthcareStart: 2007 DTaP/Tdap/Td Vaccines (1 - Tdap)DTaP/Tdap/Td Vaccines (1 - Tdap)[facility] Start: 54-33-5793TKG Vaccines (1 of 1 - Standard series)MMR Vaccines (1 of 1 - Standard series)NOM HealthcareBacteria identified in Urine by CultureUrine culture Microbiology Routine Missed menses Ordered: 05/05/2025[facility] Comment on above:Ordered: 05/05/2025BC W Auto Differential panel - BloodCBC and differential Lab Routine Right ovarian cyst PCOS (polycystic ovarian syndrome) Ordered: 11/11/2024[facility] HealthcareComment on above:Ordered: 11/11/2024BC W Auto Differential panel - BloodCBC and differential Lab Routine Missed menses , unspecified gestational age ([facility]) Ordered: 05/05/2025[facility] HealthcareComment on above:Ordered: 05/05/2025HLAMYDIA TRACHOMATIS (GENITO/STI) CHLAMYDIA TRACHOMATIS (GENITO/STI) Lab Routine Exposure to STD Ordered: 07/05/2025[facility] HealthcareComment on above:Ordered: 07/05/2025ytology Cervical or vaginal smear or scraping studyPap Smear Pathology and Cytology Routine Well woman exam with routine gynecological exam Ordered: 12/22/2024[facility] Work Phone: comment on above:Ordered: 12/22/2024ytology Cervical or vaginal smear or scraping studyPap Smear Pathology and Cytology Routine LGSIL of cervix of undetermined significance Ordered: 08/02/2025[facility] Comment on above:Ordered: 08/02/20252974HVEE-twszcwlZCFP-uamleen Lab Routine Right ovarian cyst PCOS (polycystic ovarian syndrome) Ordered: 11/11/2024[facility] HealthcareComment on above:Ordered: 11/11/2024Follicle stimulating hormone Follicle stimulating hormone Lab Routine Right ovarian cyst PCOS (polycystic ovarian syndrome) Ordered: 11/11/2024[facility] HealthcareComment on above:Ordered: 11/11/2024hCG, quantitative, pregnancyhCG, quantitative, Lab Routine Right ovarian cyst PCOS (polycystic ovarian syndrome) Ordered: 11/11/2024[facility] Work Phone: comment on above:Ordered: 11/11/2024Hemoglobin A1c/Hemoglobin.total in BloodHemoglobin A1c Lab Routine Right ovarian cyst PCOS (polycystic ovarian syndrome) Ordered: 11/11/2024[facility] HealthcareComment on above:Ordered: 11/11/2024Hemoglobin A1c/Hemoglobin.total in BloodHemoglobin A1c Lab Routine Missed menses , unspecified gestational age ([facility]) Ordered: 05/05/2025[facility] HealthcareComment on above:Ordered: 05/05/2025Hepatitis B virus surface Ag [Presence] in Serum or Plasma by ImmunoassayHepatitis B surface antigen Lab Routine Missed menses , unspecified gestational age ([facility]) Ordered: 05/05/2025[facility] HealthcareComment on above:Ordered: 05/05/2025Hepatitis C virus Ab [Presence] in Serum or Plasma by Immunoassay Hepatitis C antibody Lab Routine Missed menses , unspecified gestational age ([facility]) Ordered: 05/05/2025[facility] HealthcareComment on above: Ordered: 05/05/2025HIV-1/HIV-2 antigen/antibody combination immunoassayHIV-1 and HIV-2 antibodies Lab Routine Missed menses , unspecified gestational age ([facility]) Ordered: 05/05/2025[facility] HealthcareComment on above:Ordered: 05/05/2025Luteinizing hormoneLuteinizing hormone Lab Routine Right ovarian cyst PCOS (polycystic ovarian syndrome) Ordered: 11/11/2024[facility] HealthcareComment on above:Ordered: 11/11/2024Neisseria gonorrhoeae DNA [Presence] in Unspecified specimen by RANDOLPH with probe detectionNeisseria gonorrhea DNA probe, direct Lab Routine Exposure to STD Ordered: 07/05/2025[facility] HealthcareComment on above: Ordered: 07/05/2025Patient EducationEsophagitis Know your [facility] Work Phone: ProlactinProlactin Lab Routine Right ovarian cyst PCOS (polycystic ovarian syndrome) Ordered: 11/11/2024[facility] HealthcareComment on above:Ordered: 11/11/2024Reagin Ab [Presence] in Serum by RPRRPR Lab Routine Missed menses , unspecified gestational age ([facility]) Ordered: 05/05/2025[facility] HealthcareComment on above:Ordered: 05/05/2025Removal non- biodegradable drug delivery implantRemove drug implant device Procedures Routine Encounter for removal of etonogestrel implant Ordered: 12/02/2024[facility] Work Phone: comment on above:Ordered: 12/02/2024Rubella antibody, IgGRubella antibody, IgG Lab Routine Missed menses , unspecified gestational age ([facility]) Ordered: 05/05/2025[facility] HealthcareComment on above: Ordered: 05/05/2025SURESWAB(R) ADVANCED VAGINITIS PLUS, TMASURESWAB(R) ADVANCED VAGINITIS PLUS, TMA Pathology and Cytology Routine Vaginal discharge Ordered: 0 07/05/2025[facility] Work Phone: comment on above:Ordered: 07/05/2025Thyrotropin [Units/volume] in Serum or PlasmaTSH Lab Routine Right ovarian cyst PCOS (polycystic ovarian syndrome) Ordered: 11/11/2024[facility] HealthcareComment on above:Ordered: 11/11/2024Thyrotropin [Units/volume] in Serum or PlasmaTSH Lab Routine Elevated TSH Ordered: 02/02/2025[facility] Work Phone: Comment on above:Ordered: 02/02/2025Thyroxine (T4) free [Mass/volume] in Serum or PlasmaT4, free Lab Routine Right ovarian cyst PCOS (polycystic ovarian syndrome) Ordered: 11/11/2024[facility] HealthcareComment on above:Ordered: 11/11/2024Thyroxine (T4) free [Mass/volume] in Serum or PlasmaT4, free Lab Routine Elevated TSH Ordered: 02/02/2025[facility] HealthcareComment on above:Ordered: 02/02/2025 Payers DatePayer CategoryPayerPoly ID2021Medicaid [id number] 2021Medicaid (Managed Care) [id number] 2.16.840.1.478059.3.57[id number] 2.16.840.1.930551.3.57[id number] 2.16.840.1.378756.3.579.[id number] 2.16.840.1.816917.3.579.2.03515-80-3327Iavpgoc3412959 2.16.840.1.225710.3.579.2.48419-07-7003Uznoqzf7546411 2.16.840.1.286467.3.579.2.44682-97-0307Smqulgv3360225 2.16.840.1.454119.3.579.2.92626-38-4302Ixdyvuh1725852 2.16840.1.066794.3.579.2.11397-69-1495Qwgjshf1898711 2.16840.1.988839.3.579.2.75735-29-1791Rqhrzoc6717086 2.16840.1.883429.3.579.2.07568-91-4832Tyransa6919823 2.840.1.214480.3.579.2.35877-23-4770Hcdqfoz9861108 2.840.1.758450.3.579.2.30146-20-9954Xxpofkm9604954 2.840.1.272232.3.579.2.29372-05-7814Xshnplp8509114 2.840.1.561571.3.579.2.21951-26-0541Jpkrcqc148927649 2.840.1.649257.3.579.2.971616-20-6565Rcyjhsk791594623 2.840.1.519491.3.579.2.153194-59-1930Fuowqzn441057319 2.840.1.874716.3.579.2.306930-92-3514Obdtake34457406 2.840.1.112264.3.579.2.871606-85-8673Hbyxdwu11267805 2.840.1.963897.3.579.2.433712-26-0743Pmplboc35101341 2.840.1.797451.3.579.2.395142-49-4250Ucgvnzx27246871 2.840.1.655389.3.579.2.762468-07-4133Ipmzcbq18574414 2.840.1.894715.3.579.2.128848-55-7087Hztooar49173107 2.0.1.867179.3.579.2.663448-49-2987Hcufivw09023005 2.840.1.655428.3.579.2.843926-80-3201Dgqqjfx52046774 2.0.1.612303.3.579.2.299646-08-5673Ihuyuzu3338762 2..1.950855.3.579.2.769029-94-5827Hiancrs4210319 2..1.290956.3.579.2.449075-19-2174Umabajv3915762 2..1.120530.3.579.2.932610-99-6798Yzwlwud7723945 2..1.859402.3.579.2.270615-88-5329Ajivwlk2096520 2..1.435465.3.579.2.124839-54-4599Tnrgcph4370259 2..1.436987.3.579.2.834304-43-0330Hzblvhm6188930 2..1.596004.3.579.2.065460-44-8754Xusf-qne87-21-6758Kjlcayx633353048279 Oyvcmqd8026894 2..1.689289.3.579.2.830Rmvjfch01677334 2.0.1.350565.3.579.2.205Nrazgtc98639881 2.840.1.674591.3.579.2.531 Iolqkoz35345597 2.840.1.147212.3.579.2.907Wtmwntx28330020 2.840.1.335187.3.579.2.531 Social History DateTypeDetailFacilityStart: 03-02-2024 End: 30-94-4093Tglrawh smoking status NHISNever smoked tobacco (finding) [facility] Companytart: 35-88-9071OhoOftbxmb sex unknown (finding)[facility] Companytart: 76-62-6989Jkl Assigned At FemaleFirUniversity Hospitals Lake West Medical Centertart: 00-92-6067Eejuszb use and exposure Smokeless tobacco non-userNOMS HealthcareStart: 03-02-2024 End: 14-75-5486Jxgngdz of Social functionNOSD HealthcareStart: 03-02-2024 End: 49-43-9458Lqxjqa connection and isolation panelNOSD HealthcareStart: 51-10-2893Arynec Member of Clubs or OrganizationsNot on fileNOSD HealthcareHow often to you have a drink containing alcohol?2-4 times a monthNOSD HealthcareHow many standard drinks containing alcohol do you have on a typical day?1 or 2NOMS HealthcareHow often do you have 6 or more drinks on 1 occasion?NeverNOMS HealthcareIn the past 12 months, was there a time when you were not able to pay the mortgage or rent on time?NoNOMS HealthcareStart: 98-37-9116Yqb assigned at birthNot on fileGARFIELD MEMORIAL [facility]OSPITAL HealthcareStart: 01-04-2025 End: 35-06-3805QpoVzxhem (finding)[facility] Companytart: 83-39-3557OdlxvsvgdRCYG Healthcare Medical Equipment Procedure CodeEquipment CodeEquipment Original TextEquipment IdentifierDatesERCP (endoscopic retrograde cholangiopancreatography)STENT PANCREATIC ZIMMON 4FRFDA Start: 61-44-4975SVUM (endoscopic retrograde cholangiopancreatography)STENT PANCREATIC ZIMMON 4FRFDAStart: 10-18-7528LRJD (endoscopic retrograde cholangiopancreatography)STENT PANCREATIC ZIMMON 4FRFDAStart: 50-35-2565JZMH (endoscopic retrograde cholangiopancreatography)STENT PANCREATIC ZIMMON 4FRFDA Start: 11-20-2017 Goals DatePatient GoalDesired Activity/State Clinical Notes 08-24-2024 to 08-31-2025 Note Date & BrxuPpdqCixvgxgb68-15-3612 History of Present illness Narrative* LEAH Curran [...] Mild intermittent asthma without complication ([facility]) 03/02/2024 Allergic rhinitis due to pollen 03/02/2024 Morbid obesity due to excess calories ([facility]) 03/02/2024 Annual physical exam 03/02/2024 [...] to current . Pt was seen at [facility] on 08/29/2025 due to having painful abdominal pain and not feeling baby moving. [facility] evaluated the patient and was sent home [...] a h-hr glucose order to schedule at [facility] and pt is advised not to eat or drink anything after midnight. PVU. We will increase keflex to tid for 7 days and pyridium. Patient will also be referred to [facility] for another anatomy scan due to body habitus per reading of recent scan Orders Placed This Encounter Procedures CBC Glucose tolerance, 1 hour POCT urinalysis dipstick manually resulted Follow Up: Patient is to return to office in 3 week for routine OB appointment. Documented by Janneth Paul MA on behalf of: LEAH Curran documented in this encounterMercy McCune-Brooks HospitalWyijzqbkts81-97-2373 History of Present illness Narrative* Shelleyjoel Dang, [...] Mild intermittent asthma without complication ([facility]) 03/02/2024 Allergic rhinitis due to [...] nursing note reviewed. Exam conducted with a corporate statistical financial analyst present. Vitals: Estimated body mass index is [...] Procedure Laterality Date GALLBLADDER documented in this encounterMercy McCune-Brooks HospitalGzfinqokqa94-36-6264 History of Present illness Narrative* LEAH Curran [...] Mild intermittent asthma without complication ([facility]) 03/02/2024 Allergic rhinitis due to [...] nursing note reviewed. Exam conducted with a corporate statistical financial analyst present. Vitals: Estimated body mass index is [...] maternal Alpha fetoprotein, maternal 2. Second trimester ([facility]) Z34.92 POCT urinalysis dipstick manually resulted Alpha [...] behalf of: LEAH Curran documented in this encounterMercy McCune-Brooks HospitalTbvjeksfei83-50-9889 History of Present illness Narrative* Shelley Dang [...] 03/02/2024 Morbid obesity due to excess calories ([facility]) 03/02/2024 Annual physical exam 03/02/2024 [...] nursing note reviewed. Exam conducted with a corporate statistical financial analyst present. Vitals: Estimated body mass index is 53.17 kg/m as calculated from the following: Height as of 06/01/24: 5' 1 . Weight as of this encounter: 281 lb 6.4 oz. BP: 108/68 Patient's last menstrual period was 03/08/2025. ASSESSMENT & PLAN ICD-10-CM 1. First trimester ([facility]) Z34.91 2. 11 weeks gestation of ([facility]) Z3A.11 3. Right ovarian cyst N83.201 ondansetron [...] or undercooked meat, and stay away from [facility]. Patient has been consulted regarding any further do's and don'ts of . Patient voiced understanding and all questions and concerns wereanswered. No orders of the defined types were placed in this encounter. Follow Up: Patient is to return in 4 weeks for routine OB appointment. Documented by Shelley Dang LPN on behalf of: Jefferson Howard DO documented in this encounterMercy McCune-Brooks HospitalRmvthysvyf69-88-2099 History of Present illness Narrative* Gayatri Correa [...] Mild intermittent asthma without complication ([facility]) 03/02/2024 Allergic rhinitis due to pollen 03/02/2024 Morbid obesity due to excess calories ([facility]) 03/02/2024 Annual physical exam 03/02/2024 [...] dipstick manually resulted , unspecified gestational age ([facility]) - Type and screen; Future - ABO/Rh; Future - CBC and differential - Hemoglobin A1c - RPR - Rubella antibody, IgG - Hepatitis B surface antigen - Hepatitis C antibody - HIV-1 and HIV-2 antibodies - Rapid drug screen, urine; Future Encounter for supervision of normal first in first trimester ([facility]) - Rapid drug screen, urine; Future [...] or undercooked meat, and stay away from [facility]. Patient has also been advised to not change litter boxes and eat 6 small meals a day. Patient has been consulted regarding the do's and don'ts ofpregnancy. Patient was given labs and all questions and concerns were answered. [place] and Thyroid given to patient to have [...] by: Gayatri Correa LPN documented in this encounterMercy McCune-Brooks HospitalHtvpllbkrc83-99-2936 History of Present illness Narrative* Shelley Dang [...] Major depressive disorder, recurrent episode, mild (HCC) ([facility]) 03/02/2024 Gastroesophageal reflux disease without esophagitis 03/02/2024 Mild intermittent asthma without complication ([facility]) 03/02/2024 Allergic rhinitis due to pollen 03/02/2024 Morbid obesity due to excess calories ([facility]) 03/02/2024 Annual physical exam 03/02/2024 [...] nursing note reviewed. Exam conducted with a corporate statistical financial analyst present. Vitals: Estimated body mass index is [...] of: Jefferson Howard DO documented in this encounterMercy McCune-Brooks HospitalXqoncnsuzg56-65-0976 History of Present illness Narrative* Jefferson Howard [...] nursing note reviewed. Exam conducted with a corporate statistical financial analyst present. Vitals: Estimated body mass index is [...] of: Jefferson Howard DO documented in this encounterMercy McCune-Brooks HospitalQpdwrlrsst99-42-7040 History of Present illness Narrative* LEAH Curran - 12/22/2024 11:00 AM EST Reason for Appointment: Patient ID: Jes Romero is a 24 y.o. female who presents for [facility] Patient presents today for Annual [...] Major depressive disorder, recurrent episode, mild (HCC) ([facility]) 03/02/2024 Gastroesophageal reflux disease without esophagitis 03/02/2024 Mild intermittent asthma without complication ([facility]) 03/02/2024 Allergic rhinitis due to pollen 03/02/2024 Morbid obesity due to excess calories ([facility]) 03/02/2024 Annual physical exam 03/02/2024 [...] nursing note reviewed. Exam conducted with a corporate statistical financial analyst present. Vitals: Estimated body mass index is [...] behalf of: LEAH Curran documented in this encounterMercy McCune-Brooks HospitalMrtswmxdun15-58-7914 History of Present illness Narrative* Pilar Collins, [...] nursing note reviewed. Exam conducted with a corporate statistical financial analyst present. Vitals: Estimated body mass index is [...] of: Jefferson Howard DO documented in this encounterMercy McCune-Brooks HospitalCspsaaelen55-05-5408 History of Present illness Narrative* Pilar Collins [...] Noted Major depressive disorder, recurrent episode, mild ([facility]) ([facility]) 03/02/2024 Gastroesophageal reflux disease without esophagitis 03/02/2024 Mild intermittent asthma without complication ([facility]) 03/02/2024 Allergic rhinitis due to pollen 03/02/2024 Morbid obesity due to excess calories ([facility]) 03/02/2024 Annual physical exam 03/02/2024 [...] nursing note reviewed. Exam conducted with a corporate statistical financial analyst present. Vitals: Estimated body mass index is [...] of: Jefferson Howard DO documented in this encounterMercy McCune-Brooks HospitalYepvsoiiep34-22-7455 [place] [address] EGD Procedure Note Signed Patient: Jes Romero MR#: [id number] : 2000 Acct:[id number] Age/Sex: 23 / F Adm Date: 4 Loc: Room: Type: [facility] Attending Dr: Mir Silva MD Copies to: [...] ovary. She has not followed up with [employer]. On omeprazole 20 mg daily. Pre-operative diagnosis: [...] she needs to continue to follow-up with [employer] as it is unlikely related to GI etiology. -Resume normal diet -Follow up in the office 6 to 8 weeks with GI CASTINGS DRAFTER -Follow up with PCP Following a period of recovery, patient was seen and given full explanation of the procedure. Patient tolerated the procedure well and will be discharged in satisfactory, stable condition. Mir Silva MD Documented By: Mir Silva MD 09/07/24 1325 Signed By: 09/07/[address] [facility]11-05-2024 Evaluation note* Diagnosis Onset Date Resolution Status Admit Date Dyspepsia acuteNovember 2023 9:29amNauseaacuteNovember 2023 9:29amChronic GERD chronicNovember 2023 9:29amConstipationchronicNov2023 9:29am [facility] Work Phone: Evaluation note* Diagnosis Gastroesophageal [...] female genital organs documented in this encounter [facility] HealthcareEvaluation noteNo assessment information availableCleveland Clinic [facility] Work Phone: Evaluation note* Diagnosis Gastroesophageal [...] of undetermined significance documented in this encounter [facility] HealthcareEvaluation note* Diagnosis Gastroesophageal reflux disease [...] abnormal blood chemistry documented in this encounter [facility] HealthcareEvaluation note* Diagnosis Gastroesophageal reflux disease [...] disorder of thyroid documented in this encounter [facility] HealthcareEvaluation note* Diagnosis Gastroesophageal reflux disease [...] syndrome) Polycystic ovaries documented in this encounter [facility] HealthcareEvaluation note* Diagnosis Gastroesophageal reflux disease [...] Nausea Nausea alone documented in this encounter [facility] HealthcareEvaluation note* Diagnosis Gastroesophageal reflux disease [...] ([facility]) Second trimester ([facility]) state, incidental 19 weeks gestation of ([facility]) Screening, , for anatomic survey ([facility]) Encounter for anatomic survey LGSIL of cervix of undetermined significance documented in this encounter [facility] HealthcareEvaluation note* Diagnosis Gastroesophageal reflux disease [...] for diabetes mellitus documented in this encounter [facility] HealthcareReason for referral (narrative)No reason for referral information availableFirelands Regional [facility] Work Phone: Summary Purpose Family History [...] section and content) DATE CREATED AUTHOR 12/24/2022 [facility] DATE CREATED AUTHOR AUTHOR'S ORGANIZ ATION 08/25/2025 [facility] DATE CREATED AUTHOR AUTHOR'S ORGANIZ ATION 08/31/2025 [facility] DATE CREATED AUTHOR AUTHOR'S ORGANIZ ATION 09/01/2025 [facility] EPIC Care Teams (unrecognized [...] Manuel Noel MD [address] [place] [address] [facility] - [facility]03/02/24Team MemberRelationshipSpecialtyStart DateEnd Date Manuel Noel MD [address] [place] [address] PCP - [facility]03/02/24 Manuel Noel MD [address] [place] [address] [facility]07/20/24Team MemberRelationshipSpecialtyStart DateEnd Date Manuel Noel MD [address] [place] [address] [facility]03/02/24 Manuel Noel MD [address] [place] [address] [facility]07/20/24Team MemberRelationshipSpecialtyStart DateEnd Date Manuel Noel MD [address] [place] [address] [facility]03/02/24 Manuel Noel MD [address] [place] [address] [facility]07/20/24Team MemberRelationshipSpecialtyStart DateEnd Date Manuel Noel MD [address] [place] [address] [facility]03/02/24 Manuel Noel MD [address] [place] [address] [facility]07/20/24Team MemberRelationshipSpecialtyStart DateEnd Date Manuel Noel MD [address] [place] [address] PCP - [facility]03/02/24 Manuel Noel MD [address] [place] [address] [facility]07/20/24Team MemberRelationshipSpecialtyStart DateEnd Date Manuel Noel MD [address] [place] [address] [facility]03/02/24 Manuel Noel MD [address] [place] [address] [facility]07/20/24Team MemberRelationshipSpecialtyStart DateEnd Date Manuel Noel MD [address] [place] [address] [facility] - [facility]03/02/24 Manuel Noel MD [address] [place] [address] [facility]07/20/24Team MemberRelationshipSpecialtyStart DateEnd Date Manuel Noel MD [address] [place] [address] [facility] - [facility]03/02/24 Manuel Noel MD [address] [place] [address] [facility]07/20/24 Team Status: Inactive Member Role Status Dates Jefferson Howard DO Attending Provider Active Start : January 17, 2025 End: January 17, 2025Team MemberRelationshipSpecialtyStart DateEnd Date Manuel Noel MD [address] [place] [address] [facility]03/02/24 Manuel Noel MD [address] [place] [address] [facility]07/20/24Team MemberRelationshipSpecialtyStart DateEnd Date Manuel Noel MD [facility]03/02/24 Manuel Noel MD [address] [place] [address] [facility]07/20/24Team MemberRelationshipSpecialtyStart DateEnd Date Manuel Noel MD [facility]03/02/24 Manuel Noel MD [address] [place] [address] [facility]07/20/24Team MemberRelationshipSpecialtyStart DateEnd Date Manuel Noel MD [facility]03/02/24 Manuel Noel MD [address] [place] [address] [facility]07/20/24Team MemberRelationshipSpecialtyStart DateEnd Date Manuel Noel MD [facility]03/02/24 Manuel Noel MD [address] [place] [address] [facility]07/20/24Team MemberRelationshipSpecialtyStart DateEnd Date Manuel Noel MD [facility]03/02/24 Manuel Noel MD [address] [place] [address] [facility]07/20/24 Team Status: Inactive Member Role/Relationship Status Dates Bello Marks ([facility]) , Attending Provider Active Start: August 29, 2025 End: August 29, 2025 Team Status: Active Member Role/Relationship Status Dates Bello Marks DO Attending Provider Active Start: August 29, 2025 Team MemberRelationshipSpecialtyStart DateEnd Date Manuel Noel MD [facility]03/02/24 Manuel Noel MD [address] [place] [address] [facility] - [facility]07/20/24 Reason for Visit (unrecogniz ed section [...] BE BASED ON THE PRIMARY CLINICAL RECORDS. [employer] provides no warranty or guarantee of the accuracy or completeness of information in this document.
[2025-09-28 11:44] LABS: Hematocrit 32.6 % (36.0-48.0); Hemoglobin 10.5 g/dL (12.0-16.0); Immature Granulocytes Abs Auto 0.05 10^3/uL (0.00-0.03); Immature Granulocytes Pct Auto 0.7 % (0.0-0.5); Lymphocytes Absolute Auto 2.4 10^3/uL (1.2-3.8); Mean Corpuscular HGB Conc 32.2 g/dL (29.9-35.2); Mean Corpuscular Hemoglobin 28.5 pg (26.7-34.0); Mean Corpuscular Volume 88.6 fL (81.0-99.0); Platelet Count 213 10^3/uL (150-450); Red Blood Count 3.68 10^6/uL (4.20-5.40); White Blood Count 7.2 10^3/uL (4.0-11.0)
[2025-09-28 11:48] LABS: Glucose 1 Hour 127 mg/dL (<130)
== END 2025-09-28 10:19 | disposition home or self-care (01) ==
LOC: LAB 10:19
PROVIDERS: PCP Family Medicine; Visit Provider Physician Assistant
DX: Z13.1 Encounter for screening for diabetes mellitus (principal); Z86.39 Personal history of other endocrine, nutritional and metabolic disease
CPT/HCPCS: 36415; 82950; 84443; 85025

== ENCOUNTER 2025-10-17 00:10 | Outpatient (OUT) | payer OTHER, SELFPAY ==
--- OUTSIDE RECORDS SUMMARY | 2025-10-11 13:50 | XMS_ITS | Encounter Summary ---
Author Organization [facility] Address [address] [place] [address] Care Team Providers Care [facility] Name Role Phone Manuel Schwartz MD Primary Care Provider [phone] Manuel Schwartz MD Unavailable Reason for Visit * ReasonCommentsRoutine Visit Encounter Details DateTypeDepartmentCare Team (Latest Contact Info)Bfgyvgbziln42/23/2025 1:50 PM [facility] [address] [place] [address] Jefferson Howard DO [address] [place], [place] [id number] 29 weeks gestation of ([facility]); Third trimester ([facility]); PCOS (polycystic ovarian syndrome); Extrinsic asthma without complication, unspecified asthma severity, unspecified whether persistent ([facility]); History of hypothyroidism Social History Tobacco UseTypesPacks/DayYears UsedDateSmoking Tobacco: NeverSmokeless Tobacco: NeverSocial Connection and Isolation PanelAnswerDate RecordedIn a typical week, how many times do you talk on the phone with family, friends, or neighbors?Twice a week03/02/2024How often do you get together with friends or relatives?Twice a week03/02/2024How often do you attend cheondoism or yazidi services?Never 03/02/2024ctive Member of Clubs or OrganizationsNot [...] you engage in exercise at this level?Patient /14/2024 Housing Stability Vital SignAnswerDate RecordedIn the last 12 months, was there a time when you were not able to pay the mortgage or rent on time?No03/02/2024In the last 12 months, how many places have you lived?In the last 12 months, was there a time when you did not have a steady place to sleep or slept in [place] (including now)?No03/02/2024Estimated Date of Delivery CpzzregxJcp78/09/2026Based on Ultrasound, FHR- 136Sex and Gender Information ValueDate RecordedSex Assigned at BirthNot on fileLegal IoxQthfqa91/15/2023 8:14 PM EDTGender IdentityNot on fileSexual OrientationNot on filedocumented as of this encounter Last Filed Vital Signs Vital SignReadingTime TakenCommentsBlood Gcotdqdq236/8410/11/2025 2:03 PM EST Pulse--Temperature--Respiratory Rate--Oxygen Saturation--Inhaled Oxygen Concentration--Nhfnlb648 kg (277 lb)10/11/2025 2:03 PM ESTHeight--Body Mass [...] Mild intermittent asthma without complication ([facility]) 03/02/2024 Allergic rhinitis due to pollen 03/02/2024 Morbid obesity due to excess calories ([facility]) 03/02/2024 Annual physical exam 03/02/2024 [...] nursing note reviewed. Exam conducted with a slag expander present. Vitals: Estimated body mass index is 52.34 kg/m?? as calculated from the following: Height as of 24: 5' 1 . Weight as of this encounter: 277 lb. BP: 120/84 Patient's last menstrual period was 03/08/2025. Assessment/Plan ICD-10-CM 1. 29 weeks gestation of ([facility]) Z3A.29 POCT urinalysis dipstick manually resulted 2. Third trimester ([facility]) Z34.93 POCT urinalysis dipstick manually resulted 3. PCOS (polycystic ovarian syndrome) E28.2 4. Extrinsic asthma without complication, unspecified asthma severity, unspecified whether persistent ([facility]) J45.909 5. History of hypothyroidism Z86.39 Assessment/Plan [...] Plan of Treatment DateTypeDepartmentCare Team (Latest Contact Info)Bmgokmfxbgt93/08/2026 1:30 PM [facility] [address] [place] [address] [place] [address] Shanell Monroe, MAXIME [address] [place] [address] documented as of this encounter Procedures Procedure NamePriorityDate/TimeAssociated DiagnosisCommentsPOCT URINALYSIS WDCOWBHTNawhtxm49/23/2025 2:12 PM EST 29 weeks gestation of ([facility]) Third trimester ([facility]) documented in this encounter Results * (ABNORMAL) [...] Visit Diagnoses Diagnosis 29 weeks gestation of ([facility]) Third trimester ([facility]) state, incidental PCOS (polycystic ovarian syndrome) Polycystic ovaries Extrinsic asthma without complication, unspecified asthma severity, unspecified whether persistent ([facility]) History of hypothyroidism Personal history of endocrine, metabolic, and immunity disorders documented in this encounter Care Teams Team MemberRelationshipSpecialtyStart DateEnd Date Manuel Schwartz MD [address] [place] [address] [facility]03/02/24 Manuel cShwartz MD [address] [place] [address] [facility]07/20/24documented as of this encounter
--- OUTSIDE RECORDS SUMMARY | 2025-10-17 00:16 | XMS_ITS | CCD ---
Author Organization 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 Name Role Phone DEMETRIOC, DR WILLS Attending [...] Unavailable ANITA ., DR ANDREA Attending Unavailable MOOERS, DR AISHWARYA Luis Consulting Unavailable NADERER, DR [...] Care Provider Mir Silva MD Attending Provider [phone] Manuel Noel MD Primary Care Provider Manuel Noel MD Unavailable Manuel Noel MD Primary Care Provider Krishna Saxena MD Attending Provider Jefferson Howard DO Attending Provider [phone] Manuel Noel MD Primary Care Provider Manuel Noel MD Unavailable Manuel Noel MD Unavailable MANUEL NOEL Primary Care Unavailable MYLENE SAMPSON Attending Unavailable NADERER, MANUEL Primary Care Unavailable MAO PETERSEN Attending Unavailable NADERER, MANUEL Primary Care Unavailable FRIES, WONG S Admitting Unavailable FRIES, WONG S Attending Unavailable MANUEL NOEL Primary Care Unavailable Tae ([facility]) Bello BENTON Attending Provider [phone] Hay ([facility]), Bello Bal Admitting Unavailable Hay ([facility]), Bello Bal Attending Unavailable Manuel Noel [...] Facility (2 sources)Penicillins; Translations: [PENICILLINS]Drug allergy (disorder) 69-26-7852Trv [facility] Repository (20 sources)PenicillinsDrug Ejjalptnmjd72-26-4740YqhbhhuPXCM Healthcare (1 source)PenicillinsDrug allergy (disorder)87-67-4245DkvpwkuovAdena Regional Medical Center Repository Medications Current Medications MedicationDrug Class(es)DatesSig (Normalized)Sig (Original)200 actuat albuterol 0.09 mg/actuat dry powder inhaler (16 sources)beta2-Adrenergic AgonistStart: 16-12-7401Livpp: 02-27-2024 End: 06-92-6089ezxh 2 puff(s) by inhalation every four hoursalbuterol HFA 90 mcg/act inhaler Indications: Mild intermittent intrinsic asthma without status asthmaticus without complication ([facility]) Inhale 2 puffs every 4 (four) hours if needed for shortness of breath 18 g 3 02/27/2024 12/22/2024 Discontinued Start: 12-12-2021 End: 08-54-2178Yyhqlepag Sulfate (Ventolin Hfa) 90 mcg/actuation HFA aerosol inhaler Discontinued 2 INH SMTDQGUHAGM0N as needed for sob December 12, 2021 12:00am August 24, 2024 9:32ammeclizine hydrochloride 25 mg oral tablet (4 sources)AntiemeticStart: 36-76-4822optytceanx 40 mg delayed release oral capsule (20 sources)Proton Pump InhibitorStart: 03-02-2024 End: 29-52-8849ktbp 1 capsule by mouth in the morningomeprazole (PriLOSEC) [address] capsule Indications: Gastroesophageal reflux disease, unspecified whether esophagitis present Take 1 capsule (40 mg) by mouth in the morning and 1 capsule (40 mg) in the evening. Take before meals. 60 capsule 5 05/05/2025 ActiveStart: 12-14-2021 End: 38-13-3276ugyv 1 capsule by mouth once dailyOmeprazole 20 mg Capsule,Delayed Release(Dr/Ec) Discontinued 20 MG PO Daily 30 30 0 December 14, 2021 12:00am September 07, 2024 1:33pmStart: 11-20-2017 End: 01-37-6225Wljcxipkmn 20 mg Capsule,Delayed Release(Dr/Ec) Discontinued 20 MG PO as needed for Acne November 20, 2017 12:00am December 12, 2021 2:38pm ondansetron 4 mg oral tablet (20 sources)Serotonin-3 Receptor AntagonistStart: 11-11-2024 End: 44-57-4104ezum 1 tablet by mouth every six hours [...] hydrochloride 12.5 mg oral tablet (20 sources)PhenothiazineStart: 27-34-3086lsnh 1 tablet by mouth every six hours as needed for nausea and vomiting and nausea and nauseapromethazine (Phenergan) 12.5 MG tablet Indications: Nausea Take 1 tablet (12.5 mg) by mouth every 6 (six) hours if needed for nausea or vomiting for up to 30 doses Take 1 tablet by mouth every 6 hours as needed for nausea. 30 tablet 2 07/05/2025 ActiveStart: 81-08-9889rioj 1 tablet by mouth every six hours as needed for nausea and vomiting End: 84-44-3412yaqpcluziuuu (Phenergan) 12.5 MG tablet Take by mouth 05/05/2025 Discontinuedsucralfate 1000 mg oral tablet (3 sources)Aluminum ComplexStart: 56-20-5726nbhz 1 tablet by mouth twice daily Completed/Discontinued Medications MedicationDrug Class(es)DatesSig (Normalized)Sig (Original)ARIPiprazole 2 mg oral tablet (4 sources)Atypical AntipsychoticStart: 01-26-2019 End: 05-81-8348oqfa 1 tablet by mouth once dailyAripiprazole 2 mg Tablet Discontinued 2 MG PO Daily 14 14 0 January 25, 2019 11:00pm December 12, 2021 2:38pmcyclobenzaprine hydrochloride 10 mg oral tablet (4 sources)Muscle RelaxantStart: 06-01-2024 End: 63-09-0532enhs 1 tablet by mouth three times daily as needed for muscle spasmscyclobenzaprine (Flexeril) 10 MG tablet Indications: Right sided sciatica Take 1 tablet (10 mg) by mouth 3 (three) times a day as needed for muscle spasms 30 tablet 06/01/2024 11/11/2024 Discontinued(Other)Drospirenone-Ethinyl Estradiol (4 sources)Progestin, EstrogenStart: 12-12-2021 End: 04-60-6500hqtm 1 tablet by mouth once dailyDrospirenone-Ethinyl Estradiol 3-0.03 mg tablet Discontinued 1 TAB PO Daily December 12, 2021 1:00am August 24, 2024 10:33amStart: 12-12-2021 End: 37-33-6272eotm 1 tablet by mouth once dailyDrospirenone-Ethinyl Estradiol 3-0.03 mg tablet Discontinued 1 TAB PO Daily December 12, 2021 12:00am August 24, 2024 9:33amDULoxetine 30 mg delayed release oral capsule (4 sources)Serotonin and Norepinephrine Reuptake InhibitorStart: 12-14-2021 End: 10-59-0740mgjd 1 capsule by mouth once daily at bedtimeDuloxetine 30 mg Capsule,Delayed Release(Dr/Ec) Discontinued 30 MG PO Daily at bedtime 30 30 0 December 14, 2021 12:00am August 24, 2024 9:32amergocalciferol 1.25 mg oral capsule (4 sources)Provitamin D2 CompoundStart: 01-26-2019 End: 06-14-5907Xdcqzqqklgfbpe (Vitamin D2) 50,000 unit Capsule Discontinued 71974 UNIT PO Sa@0900 2 14 0 January 25, 2019 11:00pm December 12, 2021 2:38pm ethinyl estradiol 0.035 mg / norgestimate 0.25 mg oral tablet (9 sources)Progestin, EstrogenStart: 12-22-2024 End: 45-02-5337oxup 1 tablet by mouth once daily, then take 1 tablet by mouth once dailynorgestimate-ethinyl estradiol (Sprintec 28) 0.25-35 MG-MCG tablet Indications: control counseling Take 1 tablet by mouth Daily for 28 days Take 1 tablet by mouth daily 28 tablet 11 12/22/2024 04/27/2025 Discontinued (Therapy completed)sertraline 50 mg oral tablet (4 sources)Serotonin Reuptake InhibitorStart: 01-26-2019 End: 93-75-5083oktm 1 tablet by mouth once dailySertraline 50 mg Tablet Discontinued 50 MG PO Daily 14 14 0 January 25, 2019 11:00pm December 12, 2021 2:38pm Problems Active Problems Problem ClassificationProblemDateDocumented DateEpisodic/ChronicAcute posthemorrhagic anemia (1 source)Acute posthemorrhagic anemia; Translations: [ACUTE POSTHEMORRHAGIC ANEMIA]Onset: 49-46-9178VemcmpdrMlyfqxqegybhjm/social admission (2 sources)Patient encounter status; Translations: [Person consulting for explanation of examination or test findings]55-20-0874UiyigkjiKlcult (20 sources)Mild intermittent asthma; Translations: [Mild intermittent asthma, uncomplicated]Onset: 271764-48-1527DcxoagmZbjlyi of cervix (3 sources)Cervical intraepithelial neoplasia grade 1; Translations: [Low grade squamous intraepithelial lesion on cytologic smear of cervix (LGSIL)]01-17-2025 EpisodicContraceptive and procreative management (3 sources)Subcutaneous contraceptive implant present; Translations: [Encounter for surveillance of implantable subdermal contraceptive]31-29-5044Plvcszxw Esophageal disorders (20 sources)Gastroesophageal reflux disease; Translations: [Gastro-esophageal reflux disease without esophagitis]Onset: 005618-29-0436LpylsbkCdocaparpu disorders (3 sources)Esophagitis; Translations: [Esophagitis]88-45-7350Zhhuxjam Immunizations and screening for infectious disease (4 sources)Encounter for screening for infections with a predominantly sexual mode of transmission; Translations: [Contact with and (suspected) exposure to infections with a predominantly sexual mode of transmission]Onset: 06-10-2022 07-16-2656RornwdeuLefrbfipz (1 source)Influenza due to other identified influenza virus with other respiratory manifestations; Translations: [FLU D/T OTH ID FLU VIR OTH RSP MANF] Onset: 38-35-8083CvorarqcKsqjinrzl disorders (20 sources)Irregular menstruation, unspecified; Translations: [Amenorrhea] Onset: 08-21-9145JcjcsjnDlju disorders (20 sources)Recurrent major depression; Translations: [Major depressive disorder, recurrent, unspecified]Onset: 476520-00-8329HqdtzxuLgfvpk and vomiting (12 sources)Nausea; Translations: [Nausea]09-21-7640IosjuccxQarlt complications of ; puerperium affecting management of mother (1 source)Obesity complicating childbirth; Translations: [OBESITY COMPLICATING CHILDBIRTH]Onset: 64-94-1573PmyqsoiPgyge complications of ; puerperium affecting management of mother (1 source)Anemia of the puerperium; Translations: [ANEMIA OF THE PUERPERIUM] Onset: 53-27-6480QskydsfDgfkv complications of (2 sources)Obesity complicating , third trimester; Translations: [OBESITY COMP THIRD TRI]Onset: 77-33-2286LfvctulGcfpd complications of (4 sources) related conditions, unspecified, unspecified trimester; Translations: [ RELATED COND UNS UNS TRI]Onset: 60-93-2123QhtpdilwCwkry complications of (1 source)Diseases of the respiratory system complicating , third trimester; Translations: [DISEASESRESP SYS COMP PREG 3RD TRI]Onset: 09-24-2022 EpisodicOther complications of (1 source)Other specified related conditions, unspecified trimester; Translations: [Other specifiedpregnancy related conditions, unspecified trimester]Onset: 29-23-9659KwghtgojJuxsx ear and sense organ disorders (3 sources)Otalgia, left ear; Translations: [OTALGIA LEFT EAR]Onset: 09-22-2022 EpisodicOther endocrine disorders (5 sources)Polycystic ovary syndrome; Translations: [Polycystic ovarian syndrome]94-10-8485JjjgrvdIyfef female genital disorders (2 sources)Vaginal discharge; Translations: [Other specified noninflammatory disorders of vagina]86-47-0324SvhqvyrsTwbdz gastrointestinal disorders (4 sources)Constipation; Translations: [Constipation, unspecified]01-21-2019 EpisodicOther gastrointestinal disorders (1 source)Constipation, unspecified; Translations: [Constipation, unspecified] 05-90-7130ZqlwfixbGdhsr gastrointestinal disorders (1 source)Diarrhea, unspecified; Translations: [Diarrhea, unspecified]Onset: 50-07-5056NzfqeygcOvaqb nutritional; endocrine; and metabolic disorders (20 sources)Morbid obesity; Translations: [Morbid (severe) obesity due to excess calories]Onset: 900691-68-6943CfghlwrNvrkp and delivery including normal (20 sources)Single live ; Translations: [Encounter for supervision of other normal , third trimester]Onset: 18-12-7781DhrlrjoaXcjsn screening for suspected conditions (not mental disorders or infectious disease) (20 sources)Encounter for screening for malignant neoplasm of cervix; Translations: [Encounter for other specified screening]Onset: 72-10-8517UmmlghgkItarx upper respiratory disease (20 sources)Allergic rhinitis due to pollen; Translations: [Allergic rhinitis due to pollen]Onset: 777674-50-7345EmzgcejMijhrv media and related conditions (1 source)Unspecified nonsuppurative otitis media, bilateral; Translations: [UNS NONSUPPURATIVE OTITIS MEDIA OSCAR]Onset: 07-72-7740PulaeovnZffogvl cyst (5 sources)Cyst of right ovary; Translations: [Unspecified ovarian cyst, right side]88-46-8251CqtvkeqtQmxpteun codes; unclassified (1 source)38 weeks gestation of ; Translations: [38 WEEKS GESTATION OF ]Onset: 70-80-1337EtbvmqjyWcinuvvv codes; unclassified (1 source)29 weeks gestation of ; Translations: [29 WEEKS GESTATION OF ]Onset: 21-78-6728JqolmivqJqeuxmij codes; unclassified (2 sources)Gestation period, 11 weeks; Translations: [11 weeks gestation of ]43-93-5434IfrzmcnrNfyleuap codes; unclassified (2 sources)Gestation period, 15 weeks; Translations: [15 weeks gestation of ]95-48-3186UqzzgarjYdiyahgi codes; unclassified (2 sources)Gestation period, 19 weeks; Translations: [19 weeks gestation of ]18-48-9856YeqzthvrGradhjxx codes; unclassified (2 sources)Gestation period, 23 weeks; Translations: [23 weeks gestation of ]62-73-2398PboogyroBvjevmt disorders (1 source)Disorder of thyroid gland; Translations: [Disorder of thyroid, unspecified]15-54-4154LaetudzcQshfrfwvswkb (2 sources)[facility] ; Translations: [[facility] S[facility] DIS/COND COMPL ]Onset: 17-61-4296Kdlwdiqygucb (1 source)STOMACH PAIN, DIARRHEAOnset: 08-28-2024 Past or Other Problems Problem ClassificationProblemDateDocumented DateEpisodic/ChronicAbdominal pain (20 sources)Indigestion; Translations: [Epigastric pain]Onset: 03-02-2024 Resolved: 184123-20-1563HbjlzsogSgnukexvtjwcn gastroenteritis (1 source)Noninfective gastroenteritis and colitis, unspecified; Translations: [Noninfective gastroenteritis and colitis, unspecified]Onset: 90-26-0680Fjiycywh Other complications of (4 sources)Abnormal ultrasonic finding on screening of mother; Translations: [ABNORM US SCREEN MOTHER]Onset: 66-67-1717Gbcynzsr Residual codes; unclassified (1 source)26 weeks gestation of ; Translations: [26 WEEKS GESTATION OF ]Onset: 58-12-1805TictqxuyIkevueps codes; unclassified (1 source)18 weeks gestation of ; Translations: [18 WEEKS GESTATION OF ]Onset: 13-99-1502NtoxxavhUvriyyjb codes; unclassified (1 source)Less than 8 weeks gestation of ; Translations: [< 8 WEEKS GESTATION ]Onset: 40-71-7265CgrmwdejQzgldjpcmzr; intervertebral disc disorders; other back problems (20 sources)Cervicalgia; Translations: [Torticollis]Onset: 79-69-4714Cnvqtavw Results Test NameValueInterpretationReference RangeFacilityUrinalysis macro (dipstick) panel (U)on 05-76-0524Wypfjxdpg, UA2+Negative - 4(70) +++ mg/dLNOMD Healthcare Blood, UANegativeNegative - 50 [place]/mcLNOMD HealthcareClarity, UAClearNOMS HealthcareColor, UADark AmberNOMD HealthcareGlucose, UANegativeNegative - 2000(110) ++++ mg/dLNOMD HealthcareInterpretation and review of laboratory resultsAbnormalNOMD HealthcareKetones, UAPositiveNegative - 160(16) ++++ mg/dL NOM[facility] HealthcareLeukocytes, UA1+Negative - 500+++ [place]/mcLNOMD HealthcareNitrite, UANegativeNegative - PositiveNOMS HealthcarepH, UA6.05 - 9N[facility] Protein, UA1+Negative - 2000(20) ++++ mg/dLNOMD HealthcareSpec Grav, UA1.0251 - 1.03NOMD HealthcareUrobilinogen, UA2.00.2 - 12 mg/dLNOMD HealthcareNOMS HealthcareBasophils Auto (Bld) [#/Vol]Ordered By: Bello Marks ([place]) on 99-32-2553Zixqpykre (Bld) [#/Vol]0.0 10 3/uL0.0-0.1FAdena Regional Medical CenterBasophils/100 WBC Auto (Bld)Ordered By: Bello Marks ([place]) on 08-29-2025 Basophils/100 WBC (Bld)0.5 %0.2-2.0[facility] Eosinophils/100 WBC Auto (Bld)Ordered By: (Salma) Bello Marks on 08-29-2025 Eosinophils/100 WBC (Bld)0.7 %Low0.9-7.0[facility] Erythrocyte distribution width Auto (RBC) [Ratio]Ordered By: (Salma) Bello Marks on 27-77-0645Kfdsimptmkl distribution width (RBC) [Ratio]13.1 %11.0-15.0 [facility] CenterFine granular cast count in urine sediment by microscopy (number/low power field )Ordered By: (Salma) Bello Marks on 62-57-5004Vtce Granular Casts LM.LPF (Urine sed) [#/Area]RAREAdena Regional Medical CenterGlobulin Calc (S) [Mass/Vol]Ordered By: (Salma) Bello Marks on 00-39-2819Bnaeeejg (S) [Mass/Vol]4.3 g/dLAdena Regional Medical Center Glomerular filtration rate (GFR) estimation in non- AmericanOrdered By: (Salma) Bello Marks on 68-59-1466ELD/1.73 sq M.predicted among non-blacks MDRD (S/P/Bld) [Vol rate/Area]mL/min/{1.73_m2}>=60 mL/min/1.73m 2FAdena Regional Medical CenterHematocrit Auto (Bld) [Volume fraction]Ordered By: (Salma) Bello Marks on 03-86-0621Dlarzzwbwv (Bld) [Volume fraction]32.5 %Low36.0-48.0[facility] Medical CenterHemoglobin [Mass/volume] in BloodOrdered By: (Salma) Bello Marks on 29-32-7178Gfzjrdskte (Bld) [Mass/Vol]11.0 g/dLLow12.0-16.0 [facility] CenterLaboratory - Chemistry and Chemistry - challengeOrdered By: (Salma) Bello Marks on 73-21-7947Cignmvd [Mass/Vol]2.7 g/dLLow3.4-5.0[facility] CenterALP [Catalytic activity/Vol]103 U/V95-092RlcwhskgqAdena Regional Medical CenterALT [Catalytic activity/Vol]22 U/L 14-59[facility] CenterAST [Catalytic activity/Vol]13 U/RIew19-28 [facility] CenterBilirubin [Mass/Vol]0.5 mg/dL0.2-1.0[facility] CenterCalcium [Mass/Vol]8.7 mg/dL8.5-10.1FAdena Regional Medical CenterChloride [Moles/Vol]104 mmol/A21-356DqudmyzotAdena Regional Medical CenterCO2 [Moles/Vol]25.2 mmol/L21.0-32.0[facility] Creatinine [Mass/Vol]0.60 mg/dL0.55-1.02[facility] GFR/1.73 sq M.predicted MDRD (S/P/Bld) [Vol rate/Area]mL/min/{1.73_m2}>=60 mL/min/1.73m 2FAdena Regional Medical CenterGlucose [Mass/Vol]94 mg/gZ98-356 [facility] CenterPotassium [Moles/Vol]3.6 mmol/L3.5-5.1FAdena Regional Medical CenterProtein [Mass/Vol]7.0 g/dL6.4-8.2FChildren's Hospital for Rehabilitationodium [Moles/Vol]137 mmol/R032-710DherfcxatAdena Regional Medical CenterUrea nitrogen [Mass/Vol]5.0 mg/dLLow7.0-18.0[facility] CenterUrea nitrogen/Creatinine [Mass ratio]8.3 mg/mgAdena Regional Medical CenterBilirubin Ql (U)SMALLAbnormalNEGATIVEAdena Regional Medical Center Glucose (U) [Mass/Vol]NegativeNEGATIVEAdena Regional Medical CenterKetones Ql (U)40 mg/dLAbnormalNEGATIVEAdena Regional Medical CenterpH (U)5.5 [pH] 5.0-9.0[facility] Medical Centerpecific gravity (U) [Rel density] >=1.097Htsddlpo9.005-1.025[facility] Medical CenterUrobilinogen Qn (U) 2.0 {Nadege'U}/dLAbnormal0.2-1.0[facility] CenterLaboratory - Hematology and Cell countsOrdered By: (Lyons) Bello Marks on 26-48-7609Kxowtwib granulocytes/100 WBC (Bld)0.7 %High0.0-0.5FAdena Regional Medical Center Laboratory - Specimen informationOrdered By: (Salma) Bello Marks on 08-29-2025 Appearance (U)CLEARCLEARFAdena Regional Medical CenterColor (U)YELLOWYELLOW [facility] CenterLaboratory - UrinalysisOrdered By: (Salma) Bello Marks on 60-08-6757Nnduccyww esterase Test strip Ql (U)NegativeNEGATIVE [facility] CenterMucus Ql (Urine sed)SMALLAbnormalNONE SEEN [facility] CenterNitrite Ql (U)NegativeNEGATIVEAdena Regional Medical CenterProtein Ql (U)100 mg/dLAbnormalNEG/TRACEAdena Regional Medical CenterLeukocytes [#/volume] corrected for nucleated erythrocytes in Blood by Automated counOrdered By: (Salma) Bello Marks on 22-96-4947XQI corrected for nucl RBC Auto (Bld) [#/Vol]8.7 10 3/uL4.0-11.0 [facility] CenterLymphocytes Auto (Bld) [#/Vol]Ordered By: (Salma) Bello Marks on 32-31-2748Pwazzypkdbo (Bld) [#/Vol]1.9 10 3/uL1.2-3.8 [facility] CenterLymphocytes/100 WBC Auto (Bld)Ordered By: (Salma) Bello Marks on 22-20-1368Igviadgbdgl/100 WBC (Bld)21.7 %20.5-60.0 [facility] Auto (RBC) [Entitic mass]Ordered By: (Salma) Bello Marks on 63-83-5495HPH (RBC) [Entitic mass]30.1 pg26.7-34.0 [facility] CenterHC Auto (RBC) [Mass/Vol]Ordered By: (Salma) Bello Marks on 42-25-8221ZYJV (RBC) [Mass/Vol]33.8 g/dL29.9-35.2FAdena Regional Medical CenterMCV Auto (RBC) [Entitic vol]Ordered By: (Lyons) Bello Marks on 15-00-9004MOJ (RBC) [Entitic vol]88.8 fL81.0-99.0[facility] Medical CenterMonocytes Auto (Bld) [#/Vol]Ordered By: (Lyons) Bello Marks on 36-64-2697Vhmoetwin (Bld) [#/Vol]0.8 10 3/uL0.3-0.8[facility] CenterMonocytes/100 WBC Auto (Bld)Ordered By: (Lyons) Bello Marks on 08-29-2025 Monocytes/100 WBC (Bld)8.6 %1.7-12.0[facility] Medical CenterNeutrophils Auto (Bld) [#/Vol]Ordered By: (Lyons) Bello Marks on 26-40-7581Mffdtfzgexx (Bld) [#/Vol]5.9 10 3/uL1.4-6.5FAdena Regional Medical CenterNeutrophils/100 WBC Auto (Bld)Ordered By: (Lyons) Bello Marks on 75-81-7127Fnwicdguepj/100 WBC (Bld)67.8 %43.0-75.0[facility] CenterNo Panel InformationOrdered By: (Salma) Bello Marks on 02-92-1303Kidykepphda # (Auto)0.1 10 3/uL0.0-0.7 [facility] CenterImmature Granulocyte # (Auto)0.06 10 3/uLHigh 0.00-0.03[facility] CenterUrine BacteriaSMALL #/HPFAbnormalNONE Regional Medical CenterUrine Culture ReflexedYES-FRSumma HealthUrine Occult BloodNegativeNEGATIVEAdena Regional Medical CenterUrine Other CastsSEEN #/LPFAbnormalNONE [facility] CenterUrine Other CrystalsNone Seen #/HPFNone [facility] CenterUrine RBC0-2 #/HPF0-2FAdena Regional Medical CenterUrine Squamous Epithelial CellsFEW #/LPFAbnormalNONE/RAREAdena Regional Medical CenterUrine WBC2-5 #/HPFAbnormalNONE SEENAdena Regional Medical Center Platelet mean volume Auto (Bld) [Entitic vol]Ordered By: (Lyons) Bello Mally Marks on 26-79-3214Zmuxeesq mean volume (Bld) [Entitic vol]11.4 fL9.5-13.5FAdena Regional Medical CenterPlatelets Auto (Bld) [#/Vol]Ordered By: (Lyons) Bello Mally Tae on 00-16-4840Pieyyaoxu (Bld) [#/Vol]201 10 3/sT758-000NqskhfajzAdena Regional Medical CenterRBC Auto (Bld) [#/Vol]Ordered By: (Lyons) Bello Mally Tae on 09-08-7282HYT (Bld) [#/Vol]3.66 10 6/uLLow4.20-5.40[facility] Medical Centererum or plasma albumin/globulin mass ratioOrdered By: (Lyons) Bello Marks on 62-95-8173Qmcewzd/Globulin [Mass ratio]0.6 {ratio}[facility] Centererum or plasma anion gap determinationOrdered By: (Lyons) Bello Marks on 45-19-7284Iyoaf gap [Moles/Vol]11.4 mmol/LFAdena Regional Medical CenterUrine Cultureon 22-07-3722Flmboxvf identified Cx Nom (U)Diagnosis: 23 WKS ; ABDOMINAL PAIN DIARRHEA Comment: 30,000 colonies/ml mixed bacterial skin contaminants 2 Days PERFORMED BY: [facility] [address] [place] [address] PATHOLOGIST OVEN BUILDER JORDAN ALCAZAR M.D.NormalThe [facility] Physician GroupComment on above: Performed By: #### CUU #### [facility] [address] [place] [address] USABASIC METABOLIC PANELon 48-92-6543Xumxx gap [Moles/Vol]10 mmol/LNormal5-15[facility] CenterComment on above:Performed By: #### BMP #### [facility] [address] [place] [address] [place] [address] VIRCalcium [Mass/Vol]8.3 mg/dLLow8.5-10.5PSalem Regional Medical CenterComment on above:Performed By: #### BMP #### [facility] ([address] [address] VIRChloride [Moles/Vol]103 mmol/ROiouha86-607KmzSybyjmCarl R. Darnall Army Medical CenterComment on above:Performed By: #### BMP #### [facility] ([address] [address] VIRCO2 [Moles/Vol]21 mmol/VDxw02-04AhyFetupjSalem Regional Medical Center Comment on above:Performed By: #### BMP #### [facility] ([address] [address] VIRCreatinine [Mass/Vol]0.53 mg/dLNormal0.40-1.00ProCarl R. Darnall Army Medical CenterComment on above:Result Comment: METHOD TRACEABLE TO IDMS STANDARDPerformed By: #### BMP #### [facility] ([address] [address] VIREGFR (CKD-EPI) NON-RACE DEPENDENT>^90Normal>=60ProCarl R. Darnall Army Medical CenterComment on above:Result Comment: eGFR not reported due to non- numeric value for Creatinine. Reported eGFR is based on the CKD-EPI 2021 equation that does not use a race coefficient.Performed By: #### BMP #### [facility] ([address] [address] VIRGlucose [Mass/Vol]101 mg/tDOmts21-97ZdxNlafpjCarl R. Darnall Army Medical CenterComment on above:Performed By: #### BMP #### [facility] ([address] [address] VIRPotassium [Moles/Vol]3.7 mmol/LNormal3.5-5.0ProCarl R. Darnall Army Medical CenterComment on above:Performed By: #### BMP #### [facility] ([address] [place] [address] VIRSodium [Moles/Vol]134 mmol/RHajarn818-386FoqThkoho Fremont HospitalComment on above:Performed By: #### BMP #### [facility] ([address] [place] [address] VIRUrea nitrogen [Mass/Vol]5 mg/dLNormal5-23ProCarl R. Darnall Army Medical CenterComment on above:Performed By: #### BMP #### [facility] ([address] [place] [address] VIRCBC (NO DIFF)on 78-70-7703Nscbwiwhzwv distribution width (RBC) [Ratio]13.5 %Pbmsmz13.5-15[facility] Medical CenterComment on above: Performed By: #### CBC #### [facility] ([address] [address] VIRHematocrit (Bld) [Volume fraction]31.2 %Ads82-80SuaLurvafCarl R. Darnall Army Medical CenterComment on above:Performed By: #### CBC #### [facility] ([address] [place] [address] VIRHemoglobin (Bld) [Mass/Vol]10.6 g/dLLow11.7-15.5ProMedica Tri-City Medical CenterComment on above:Performed By: #### CBC #### [facility] ([address] [address] VIRMCH (RBC) [Entitic mass]29.2 xzJurobm60-21EbfOkptaxCarl R. Darnall Army Medical CenterComment on above:Performed By: #### CBC #### [facility] ([address] [place] [address] VIRMCHC (RBC) [Mass/Vol]33.8 g/iLPukyfz61-47JnaIxwvvuCarl R. Darnall Army Medical CenterComment on above:Performed By: #### CBC #### [facility] ([address] [place] [address] VIRMCV (RBC) [Entitic vol]86 vCYegfea42-101WhxUftofv [facility]remont HospitalComment on above:Performed By: #### CBC #### [facility] ([address] [place] [address] VIRPlatelet mean volume (Bld) [Entitic vol]9.2 fLNormal7-12 [facility] HospitalComment on above:Performed By: #### CBC #### [facility] ([address] [place] [address] VIRPlatelets (Bld) [#/Vol]186 10*3/jJLnvvna126-339XqsZwdgjy [facility] HospitalComment on above:Performed By: #### CBC #### [facility] ([address] [place] [address] VIRRBC COUNT3.62 X10^12/LLow3.8-5.2PSalem Regional Medical Center Comment on above:Performed By: #### CBC #### [facility] ([address] [place] [address] VIRWBC (Bld) [#/Vol]8.9 10*3/uLNormal4-11ProCarl R. Darnall Army Medical CenterComment on above:Performed By: #### CBC #### [facility] ([address] [address] VIRURINALYSISon 21-71-3960Ppsqnohei sediment LM Ql (Urine sed) PresentAbnormalNonGrant HospitalComment on above:Performed By: #### UA #### [facility] ([address] [place] [address] VIRBilirubin Ql (U)NegativeNormalNegativeProAdams County Hospital HospitalComment on above:Performed By: #### UA #### [facility] ([facility]) [address] [place] [address] [place] [address] VIRBLOOD/HGBNegativeNormalNegativeUniversity Hospitals Conneaut Medical Center Comment on above:Performed By: #### UA #### [facility] ([facility]) [address] [place] [address] [place] [address] VIRColor (U)YellowNormalYellowUniversity Hospitals Conneaut Medical Center Comment on above:Performed By: #### UA #### [facility] ([address] [place] [address] VIRGlucose Ql (U)NegativeNormalNegative, 250 mg/dLUniversity Hospitals Conneaut Medical CenterComment on above:Performed By: #### UA #### [facility] ([address] [place] [address] VIRKetones Ql (U)NegativeNormalNegativeUniversity Hospitals Conneaut Medical CenterComment on above:Performed By: #### UA #### [facility] ([address] [place] [address] VIRLeukocyte esterase Test strip Ql (U)NegativeNormalNegative University Hospitals Conneaut Medical CenterComment on above:Performed By: #### UA #### [facility] ([address] [place] [address] VIRNitrite Ql (U)NegativeNormalNegativeUniversity Hospitals Conneaut Medical CenterComment on above:Performed By: #### UA #### [facility] ([address] [place] [address] VIRPH,URINE7.4Ispnnx8.0-8.5ProMedica Tri-City Medical CenterComment on above:Performed By: #### UA #### [facility] ([address] [place] [address] VIRProtein Ql (U)TraceAbnormalNegativeUniversity Hospitals Conneaut Medical CenterComment on above:Performed By: #### UA #### [facility] ([address] [place] [address] VIRSpecific gravity (U) [Rel density]1.568Vtgirl9.003-1.035 University Hospitals Conneaut Medical CenterComment on above:Performed By: #### UA #### [facility] ([address] [place] [address] VIRSQUAMOUS NAPKKFDFFU6Ieeqoc2-9WdgSwnehm [facility] Comment on above:Performed By: #### UA #### [facility] ([address] [address] VIRTURBIDITYHazyAbnormalClearPSalem Regional Medical CenterComment on above:Performed By: #### UA #### [facility] ([address] [place] [address] VIRUROBILINOGEN>=8.0 eu/dLAbnormal0.2 eu/dL, 1.0 eu/dL University [facility]als Conneaut Medical CenterComment on above:Performed By: #### UA #### [facility] ([address] [address] VIRUS OB 14+ WEEKS ANATOMY SCANon 02-20-5604BY OB 14+ WEEKS ANATOMY SCANFINDINGS: A single, [...] Delivery: 12/26/25 Gestational Age as of 08/02/2025: 28j1rVCP,APTIMA HPV,AGE GDLNon 68-44-1878QUS GDLN ACOG TESTINGNote.NOMS HealthcareComment on above:TESTS RESULT FLAG UNITS REF RANGE LAB Clinician Provided Cytology Information Source.............Endocervix Other.............. No. of containers..01 ThinPrep Vial Age Samo MELANY Mela... -17 11 FLAG LEGEND: L-Low Normal,H-High Normal,LL-Alert Low,HH-Alert High <-Panic Low,>-Panic High,A-Abnormal,AA-Critical Abnormal Performed at: 01 =G [address] [address] Aleida Colon MD, IGP, RFX APTIMA HPV ASCUNote.[facility] Ontario HospitalComment on above:TESTS RESULT FLAG UNITS REF RANGE LAB DIAGNOSIS: 02 NEGATIVE FOR INTRAEPITHELIAL LESION OR MALIGNANCY. Specimen adequacy: 02 Satisfactory for evaluation. No endocervical component is identified. An endocervical component is not commonly seen in the patient. Performed by: 02 Cynthia Smith Senior Compliance Officer ([facility]) . 02 Note: Note 02 The [...] ThinPrep(R) pap test was interpreted using the PolarTech(R) Light Blue Optics(TM) Cervical Algorithm whole slide imaging system. . 02 The HPV DNA reflex criteria were not met with this specimen result therefore, no HPV testing was performed. FLAG LEGEND: L-Low Normal,H-High Normal,LL-Alert Low,HH-Alert High <-Panic Low,>-Panic High,A-Abnormal,AA-Critical Abnormal Performed at: 02 [facility] [address] [place] [address] Aleida Colon MD, Performed at: =G - [facility] [address], [place] [id number] Unemployment Inspector: Aleida Colon MD, Phone: [phone] Performed at: [facility] [address] [place], [place] [address] Unemployment Inspector: Aleida Colon MD, Phone: [phone] [facility] HealthcareAFP, SERUM, OPEN SPINA BIFIDAon 76-39-1895RVH MOM1.07. NOMS HealthcareAFP VALUE31.7 ng/mL.NOMS HealthcareCOMMENT:Comment.[facility] HealthcareComment on above:Caitlin Palafox, Ph.D., [facility] Director References: Available Upon Request. Multiples Of Median Cutoffs For AFP Elevations Caro 2.5 Black 2.8 IDD 2.0 Twins 4.5 Abbreviation Definitions IDD - Insulin Dep Diabetes OSBR - Open Spina Bifida Risk For further inquiries contact [facility] at [phone]. This test was developed and its performance characteristics determined by [employer]. It has not been cleared or approved by the Food and Drug Administration. Performed at: [facility] [address] [place], [place] [address] Unemployment Inspector: Leonidas nOeill [facility], Phone: [phone] GEST. AGE ON COLLECTION DATE18.0. weeksKansas City VA Medical CenterGESTAT. AGE BASED ON Ultrasound.[facility] HealthcareComment on above:15.1 on 07/05/2025 Recalculations are not recommended when gestational dating by LMP and ultrasound are within 10 days. INSULIN DEP DIABETESNo.NOMS HealthcareINTERPRETATIONComment.[facility] Healthcare Comment on above:Interpretation: Screen Negative This [...] Customer Services to discuss available options. The [employer] [employer] recommends amniocentesis be offered to women age 35 and older. MATERNAL AGE AT EDD25.1. yrNOMD HealthcareMULTIPLE GESTATIONNo.[facility] OSBR RISK 1 [id number].NOMS HealthcareRACECaucasian.NOMS HealthcareRESULTSReport. NOMS HealthcareTEST RESULTS:Negative.[facility] PimdbirgesNATLQM343. lbsNOMS HealthcarePREGNANCY N N ULTRASOUND [id number] 1 15 N 1 Y 285 N N N N N White/ CLINISYNCNOMS HealthcareRECURRENT VAGINITIS (HTRX)on 77-81-4469XOUQQCYQV VAGINAE 0NOMS HealthcareATOPOBIUM VAGINAENot detectedNOMS HealthcareBVAB 2,3 (BACTERIAL VAGINOSIS ASSOCIATED BACTERIA 2, 3); MOBILUNCUS LKY7LIZY HealthcareBVAB 2,3 (BACTERIAL VAGINOSIS ASSOCIATED BACTERIA 2, 3); MOBILUNCUS SPPNot detectedNOMS HealthcareCANDIDA ALBICANS, PARAPSILOSIS, BWNLUIVSDN6PIXF HealthcareCANDIDA ALBICANS, PARAPSILOSIS, TROPICALISNot detectedNOMS HealthcareCANDIDA GLABRATA0 NOMS HealthcareCANDIDA GLABRATANot detectedNOMS HealthcareCANDIDA PPKSNV9LUHV HealthcareCANDIDA KRUSEINot detectedNOMS HealthcareCHLAMYDIA SFYYBPHCJXZ3MWDY HealthcareCHLAMYDIA TRACHOMATISNot detectedNOMS HealthcareGARDNERELLA VAGINALIS 31.049AbnormalNOMS HealthcareGARDNERELLA VAGINALISDetectedAbnormalNOMS HealthcareInterpretation and review of laboratory resultsAbnormalNOMS Healthcare MEGASPHAERA (TYPES 1, 2)0NOMS HealthcareMEGASPHAERA (TYPES 1, 2)Not detectedNOMS HealthcareMYCOPLASMA QHZQZNNLSD9POWH HealthcareMYCOPLASMA GENITALIUMNot detected NOMS HealthcareNEISSERIA TAGLMRPUMOO6GJYE HealthcareNEISSERIA GONORRHOEAENot detectedNOMS HealthcareTET B, TET M23.864AbnormalNOMS HealthcareTET B, TET M DetectedAbnormalNOMD HealthcareTRICHOMONAS EIBSMABHV3XZPK HealthcareTRICHOMONAS VAGINALISNot detectedNOMS HealthcareNOMS HealthcareUrinalysis macro (dipstick) panel (U)on 62-84-7201Sdedjrary, UANegativeNegative - 4(70) +++ mg/dLNOMS HealthcareBlood, UAPositiveNegative - 50 Lincoln/mcLNOMS HealthcareClarity, UAClear NOMS HealthcareColor, UAYellowNOMS HealthcareGlucose, UANegativeNegative - 1999(110) ++++ mg/dLOGD[facility] HealthcareInterpretation and review of laboratory resultsAbnormalOGDEN REG[facility] HealthcareKetones, UANegativeNegative - 160(16) ++++ mg/dL NOMS HealthcareLeukocytes, UANegativeNegative - 500+++ Skyler/mcLNOMD Healthcare Nitrite, UANegativeNegative - PositiveNOMD HealthcarepH, UA65 - 9N[facility]D Healthcare Protein, UANegativeNegative - 1999(20) ++++ mg/dLOGD[facility] HealthcareSpec Grav, UA 1.0151 - 1.03NOMD HealthcareUrobilinogen, UA1.00.2 - 12 mg/dLTwo Rivers Psychiatric [facility] HealthcareALL THYROID STIM HORMONEon 09-43-7842VSM Qn2.104 m[IU]/LNOMS HealthcareCLINISYNCNOMS HealthcareBOX TESTon 36-25-4365SIZ TEST SENT OUTYESKansas City VA Medical CenterUahtgxhexvKQF5KLBIIDLRQ KhzgtaqajbPKY93/03/13NOSalem Memorial District HospitalCLINISYNAnMed Health CannonHCG ( test) Ql (U)on 31-85-0057Aqfwwkkdfogwoo and review of laboratory resultsAbnormJefferson HospitalPreg Test, UrPositiveNegativeNOMid [facility] HealthcareUS OB TRANSVAGINALon 82-63-1787BX OB TRANSVAGINAL FINDINGS: A single intrauterine gestational [...] No LMP recorded.Urinalysis macro (dipstick) panel (U)on 50-11-0842Irxxacmtz, UA NegativeNegative - 4(70) +++ mg/dLNOMS HealthcareBlood, UANegativeNegative - 50 Lincoln/mcLNOMD HealthcareClarity, UAClearNOMS HealthcareColor, UAYellowNOMS HealthcareGlucose, UANegativeNegative - 2000(110) ++++ mg/dLNOMD Healthcare Interpretation and review of laboratory resultsAbnormalNOMD HealthcareKetones, UANegativeNegative - 160(16) ++++ mg/dLOGDEN [facility] HealthcareLeukocytes, UANegative Negative - 500+++ Skyler/mcLNOMD HealthcareNitrite, UANegativeNegative - Positive NOMS HealthcarepH, UA75 - 9NOMS HealthcareProtein, UATraceNegative - 2000(20) ++++ mg/dLNOMD HealthcareSpec Grav, UA1.0251 - 1.03NOMS HealthcareUrobilinogen, UA1.00.2 - 12 mg/dLNOMid [facility] HealthcarePOCT NURSING URINE MACROSCOPIC UAon 38-46-5434OGJJWBAWA NURNegativeNoadventhealth hendersonvilleNegGenesis Hospital Comment on above:Performed By: #### NUM #### [facility] ([address] [address] VIRBLOOD/HGB NURTraceAbnormalNegativeUniversity Hospitals Conneaut Medical CenterComment on above:Performed By: #### NUM #### [facility] ([address] [address] VIRGLUCOSE NURNegativeNoalNegativeUniversity Hospitals Conneaut Medical Center Comment on above:Performed By: #### NUM #### [facility] ([address] [address] VIRKETONES NURNegativeNormalNegativeUniversity Hospitals Conneaut Medical Center Comment on above:Performed By: #### NUM #### [facility] ([address] [address] VIRLEUKOCYTE ESTERASE NURNegativeNormalNegativeUniversity Hospitals Conneaut Medical CenterComment on above:Performed By: #### NUM #### [facility] ([address] [address] VIRNITRITE NURNegativeNormalNegativeUniversity Hospitals Conneaut Medical Center Comment on above:Performed By: #### NUM #### [facility] ([address] [address] VIRPH NUR6.4Wnglbd7.0, 6.0, 6.5, 7.0, 7.5, 8.0, 8.5, 5.5 [facility] Hospit[facility] Conneaut Medical CenterComment on above:Performed By: #### NUM #### [facility] ([address] [address] VIRPROTEIN BII950 mg/dLAbnormalNegativeUniversity Hospitals Conneaut Medical CenterComment on above:Performed By: #### NUM #### [address] [address] VIRSPECIFIC GRAVITY MOLLY>=1.413Movzhvqr9.010, 1.015, 1.020, 1.025University Hospitals Conneaut Medical CenterComment on above:Performed By: #### NUM #### [facility] ([address] [address] VIRUROBILINOGEN NUR0.2 E.U./dLMercy Hospital [address]. John'SalUniversity Hospitals Conneaut Medical Center Comment on above:Performed By: #### NUM #### [facility] ([address] [address] VIRPOCT , URINE (NUCG)on 31-71-2048Fncx HCG ( test) Ql (U)PositiveAbnormalNegative, IndeterminateUniversity Hospitals Conneaut Medical CenterComment on above:Performed By: #### NUCG #### [facility] ([address] [address] VIRALL THYROID STIM HORMONEon 48-94-7815Ztgqlxempuvody and review of laboratory resultsAbnoShriners Hospitals for Children - [facility] Qn5.935 m[IU]/[facility] HospitalINISYNENCOMPASS [facility] HealthcareHCG ( test) Ql (U)on 01-17-2025 Interpretation and review of laboratory resultsNormalNO [facility] HospitalPreg Test, UrNegativeNegativeCESAR [facility] - Fort MillLon 01-17-2025L Specimen: [id number] Received: 01/18/25 Status: GHAZAL Parminder Num: [id number] Spec Type: Surgical Subm Dr: Jefferson Howard Tissues: A Endocervix - Biopsy (ENDOCERVIX) Endocervix - Curettings Procedures: TESSIE/Day Olivarez/Elvin Huggins Age/ Patient Sex Location Account Attending Physician Jes Romero 24/ LABELL [id number] Jefferson Howard SPEC NUM: [id number] RECD: 01/18/25 STATUS: GHAZAL JEROME NUM: [id number] JUDIT: 01/17/25-[address]: Jefferson Howard ENTERED: 01/18/25-[address] [facility] [address]: Emma,Lab SPEC TYPE: Surgical DEPT: LUCAS MAR ENTERED BY: [id number] RECV BY: [id number] ORDERED: HE/2, Gross/Micro L4 ORDERED: HE/2, Gross/Micro [...] submitted in a single cassette. (1, ns, [id number]) Microscopic Description Microscopic examination is performed Specimen: [id number] Received: 01/18/25 Status: GHAZAL Jerome Num: [id number] Spec Type: Surgical Subm Dr: Jefferson Howard Tissues: A Endocervix - Biopsy (ENDOCERVIX) Endocervix - Curettings Procedures: HE/2, Gross/Micro L4 Patient: Jes Romero [id number] (Continued) Specimen: [id number] Received: 01/18/25 (Continued) Signed (signature on file) Lizabeth Diggs MD 01/19/25 1541 Specimen: [id number] Received: 01/18/25 Status: GHAZAL Jerome Num: [id number] Spec Type: Surgical Subm Dr: Jefferson Howard Tissues: A Endocervix - Biopsy (ENDOCERVIX) Endocervix - Curettings Procedures: Day MEDELLIN/Elvin L4 Patient: Jes Romero [id number] (Continued) Specimen: [id number] Received: 01/18/25 (Continued) CPT Codes 60793 Specimen: [id number] Received: 01/18/25 Status: GHAZAL Jerome Num: [id number] Spec Type: Surgical Subm Dr: Jefferson Howard Tissues: A Endocervix - Biopsy (ENDOCERVIX) Endocervix - Curettings Procedures: TESSIE/Day Olivarez/Elvin L4 Patient: Jes Romero [id number] (Continued) Signed (signature on file) Brian-Shaheen Diggs MD 01/19/[address] [place] [address] Physician GroupUrinalysis macro (dipstick) panel (U)on 36-39-9493Vrwuvriac, UANegativeNegative - 4(70) +++ mg/dLNOMS HealthcareBlood, UANegativeNegative [...] mg/dLNOMS HealthcareNOMS HealthcareUS PELVIC COMPLETE W/ TVon 83-99-6486UZ PELVIC COMPLETE W/ TVEXAM: US PELVIC COMPLETE [...] II, MD, PHD at 13-Jan-2025 11:16:36 PM [facility]-[place] TeleradiologyNormalNot AvailableComment on above:Order Comment: US PELVIS-TRANSVAG IF INDICATED No LMP recorded.Urine Cultureon 49-86-8963Ubtlnthi identified Cx Nom (U)15,000 colonies/ml mixed bacterial skin contaminants 2 Days PERFORMED BY: [place] [address] PATHOLOGIST OVEN BUILDER BRUCE CALI M.D.NormalThe [facility] Physician GroupComment on above: Performed By: #### CUU #### [facility] [address] [place] [address] USAUrine cultureOrdered By: Krishna Saxena on 01-03-2025 Bacteria identified Cx Nom (U)Urine cultureAdena Regional Medical Center IGP,APTIMA HPV,AGE GDLNon 04-20-1887JUP GDLN ACOG TESTINGNote.[facility] Comment on above:TESTS RESULT FLAG UNITS REF RANGE LAB Clinician Provided Cytology Information Source.............Cervix;Endocervix No. of containers..01 ThinPrep Vial Age Algo ACOG Mela... -17 11 FLAG LEGEND: L-Low Normal,H-High Normal,LL-Alert Low,HH-Alert High <-Panic Low,>-Panic High,A-Abnormal,AA-Critical Abnormal Performed at: 01 =G [facility] [place] [address] Aleida Colon MD, IGP, RFX APTIMA HPV ASCUNoteAbnormal.NOMS HealthcareComment on above:TESTS RESULT FLAG UNITS REF RANGE LAB DIAGNOSIS: [A] 02 EPITHELIAL CELL ABNORMALITY. LOW GRADE SQUAMOUS INTRAEPITHELIAL LESION (LSIL). Specimen adequacy: 02 Satisfactory for evaluation. Endocervical and/or squamous metaplastic cells (endocervical component) are present. Performed by: 02 Cynthia Smith, Wealth Management Advisor (ASCP) Electronically si... 02 Johanne Desir MD, [...] <-Panic Low,>-Panic High,A-Abnormal,AA-Critical Abnormal Performed at: [address] [address] Aleida Colon MD, Performed at: = - [facility] [id number] Unemployment Inspector: Aleida Colon MD, Phone: [phone] Performed at: [facility] [address] [id number] Unemployment Inspector: Aleida Colon MD, Phone: [phone] Interpretation and review of laboratory resultsAbnoKindred Hospital Pittsburgh BRUSH-SPATULA CERVIX ENDOCERVIX CLINISYBaptist HospitalInsertion/Removal of Contraceptive Capsuleon 12-02-2024 Pilar Collins [...] closed with steri-strips and pressure bandage applied: Critical access hospitalUS PELVIC COMPLETE W/ TVon 67-52-4413EX PELVIC COMPLETE W/ TVEXAM: US PELVIC COMPLETE [...] II, MD, PHD at 03-Dec-2024 08:37:11 AM [facility]-[place] TeleradiologyNormalNot AvailableComment on above:Order Comment: US PELVIS-TRANSVAG IF INDICATED No LMP recorded.ALL CBC WITH AUTO DIFFon 16-14-1822WTCQDFYCF ABSOLUTE AUTO0.1 NOMS HealthcareBasophils/100 WBC (Bld)0.6 %0.2 - 2.0 %[facility] Eosinophils/100 WBC (Bld)2.6 %0.9 - 7.0 %[facility] HealthcareErythrocyte distribution width (RBC) [Ratio]13.2 %11.0 - 15.0 %[facility] HealthcareHematocrit (Bld) [Volume fraction]38.2 %36.0 - 48.0 %[facility] CenterHemoglobin (Bld) [Mass/Vol]12.4 g/dL 12.0 - 16.0 g/dLNOSalem Memorial District HospitalIMMATURE GRANULOCYTES ABS AUTO0.04HighNOMD HealthcareImmature granulocytes/100 WBC (Bld)0.4 %0.0 - 0.5 %[facility] Interpretation and review of laboratory resultsAbnormalNOMD Healthcare LYMPHOCYTES ABSOLUTE AUTO3.4NOSalem Memorial District HospitalLymphocytes/100 WBC (Bld)34.8 %20.5 - 60.0 %[facility] CenterMCH (RBC) [Entitic mass]28.3 pg26.7 - 34.0 pgNONorth Kansas City HospitalHC (RBC) [Mass/Vol]32.5 g/dL29.9 - 35.2 g/dLNOMD HealthcareMCV (RBC) [Entitic vol]87.2 fL81.0 - 99.0 fLNOMS HealthcareMONOCYTES ABSOLUTE AUTO0.7NOMS HealthcareMonocytes/100 WBC (Bld)7.2 %1.7 - 12.0 %[facility] HealthcareNEUTROPHILS ABSOLUTE AUTO5.4NOMS HealthcareNeutrophils/100 WBC (Bld)54.4 %43.0 - 75.0 %[facility] HealthcarePlatelet mean volume (Bld) [Entitic vol]10 fL9.5 - 13.5 fLNOMS HealthcareTBH EO #0.3NOMS HealthcareTBH VRO997XVSB HealthcareTBH RBC4.38NOMS HealthcareTBH WBC9.9NOMS HealthcareCLINISYNCNOMS HealthcareHCG ( test) IA.rapid Ql (U)Ordered By: Mir Silva on 68-38-5843SOK ( test) Ql (U)Urine human chorionic gonadotropin (hCG) detection by immunoassayAdena Regional Medical CenterHC,Urineon 38-52-5281Jufh HCG ( test) Ql (U) NegativeNoNovant Health Franklin Medical Center Physician GroupComment on above:Result Comment: PERFORMED BY: [address] [place] [id number] PATHOLOGIST OVEN BUILDER BRUCE CALI M.D.Performed By: #### UHCG #### [place] [id number] USALon 09-07-2024L Specimen: [id number] Received: 09/07/24 Status: GHAZAL Jerome Num: [id number] Spec Type: Surgical Subm Dr: Mir Silva MD Tissues: A Small Intestine - Biopsy/Polyp (SMALL BOWEL BX R/O CELIAC) Procedures: HE/2, Gross/Micro L4 Age/ Patient Sex Location Account Attending Physician Jes Romero / [id number] Mir Silva MD SPEC NUM: [id number] RECD: 09/07/24 STATUS: GHAZAL JEROME NUM: [id number] JUDIT: 09/07/[address] [facility] [address]: Mir Silva MD ENTERED: 09/07/[address]: SPEC TYPE: Surgical DEPT: S ENTERED BY: [id number] RECV BY: [id number] ORDERED: HE/2, Gross/Micro L4 ORDERED: HE/2, Gross/Micro L4 Pathological Diagnosis Small bowel, biopsy: - Small bowel mucosa with no significant histopathology. - No evidence of celiac disease identified. Clinical Information Abdominal pain, nausea, rule out celiac disease. Gross Description Received in formalin labeled with the patients name, date of , and small bowel BX is a omran-salvador, focally erythematous, friable, 0.4 cm in greatest dimension tissue bit. The specimen is entirely submitted in a single cassette. (1, ns, [id number]) Microscopic Description Microscopic examination is performed. CPT Codes 75104 Specimen: [id number] Received: 09/07/24 Status: GHAZAL Jerome Num: [id number] Spec Type: Surgical Subm Dr: Mir Silva MD Tissues: A Small Intestine - Biopsy/Polyp (SMALL BOWEL BX R/O CELIAC) Procedures: HE/2, Gross/Micro L4 Patient: Jes Romero [id number] (Continued) Signed (signature on file) Roberth Martinez MD 09/08/24 1012Noal [facility] Physician GroupSOUTHERN [facility]ENT[facility] AND AUTO DIFFon 47-75-4270BHYDCOVC BASOPHIL0.0 X10E9/LNormal0.0-0.2PSalem Regional Medical CenterComment on above:Performed By: #### MARLENE CBCA #### [facility] ([id number]) [address] [place] [address]RUZAEAXM NEUTROPHIL3.8 X10E9/LNormal1.5-6.6[facility] Conneaut Medical CenterComment on above:Performed By: #### CMP, CBCA #### [facility] ([id number]) [address] [place] [address]Iyjhomzky/100 WBC (Bld)0.3 %[facility] Comment on above:Performed By: #### MARLENE CBCA #### [facility] ([id number]) [address] [place] [address]Lczewwryeyz (Bld) [#/Vol]0.0 10*3/uLNormal0.0-0.4[facility] Medical CenterComment on above:Performed By: #### CMP, CBCA #### [facility] ([id number]) [address] [place] [address]Mwldvrrdavl/100 WBC (Bld)0.8 %[facility] Comment on above:Performed By: #### CMP, CBCA #### [facility] ([id number]) [address] [place] [address]Cxhffhjtwxi distribution width (RBC) [Ratio]14.5 %Normal 11.5-15.0[facility] Conneaut Medical CenterComment on above:Performed By: #### CMP, CBCA #### [facility] ([id number]) [address] [place] [address]Nwccadyxds (Bld) [Volume fraction]38.8 %Pnhyqa98-57WwkVbhuxiCarl R. Darnall Army Medical CenterComment on above:Performed By: #### CMP, CBCA #### [facility] ([id number]) [address] [place] [address] 63187Zqwjodmutt (Bld) [Mass/Vol]13.0 g/kFKslsns74.7-15.5PSalem Regional Medical CenterComment on above:Performed By: #### CMP, CBCA #### [facility] ([id number]) [address] [place] [address] 64667Lswqxygjsmr (Bld) [#/Vol]0.5 10*3/uLLow1.0-3.5PSalem Regional Medical CenterComment on above:Performed By: #### CMP, CBCA #### [facility] ([id number]) [address] [place] [address] 58609Xwptgxwxgrz/100 WBC (Bld)11.5 %NormalUniversity Hospitals Conneaut Medical Center Comment on above:Performed By: #### CMP, CBCA #### [facility] ([id number]) [address] [place] [address] 91861KTC (RBC) [Entitic mass]28.6 uxYfwbfg94-99IddIevagtCarl R. Darnall Army Medical CenterComment on above:Performed By: #### CMP, CBCA #### [facility] ([id number]) [address] [place] [address] 80516NQAR (RBC) [Mass/Vol]33.5 g/xROerrbi87-26HmwVcubbkCarl R. Darnall Army Medical CenterComment on above:Performed By: #### CMP, CBCA #### [facility] ([id number]) [address] [place] [address] 31836DKZ (RBC) [Entitic vol]85 iFAhylla10-189ZmpFdmpxjUniversity Hospitals Conneaut Medical CenterComment on above:Performed By: #### CMP, CBCA #### [facility] ([id number]) [address] [place] [address] 17736Yzokvaskw (Bld) [#/Vol]0.2 10*3/uLNormal0-0.9University Hospitals Conneaut Medical CenterComment on above:Performed By: #### CMP, CBCA #### [facility] ([id number]) [address] [place] [address] 21640Pfppthahn/100 WBC (Bld)5.1 %[facility] Comment on above:Performed By: #### CMP, CBCA #### [facility] ([id number]) [address] [place] [address] 06808Jtkwfbektbn/100 WBC (Bld)82.3 %[facility] Comment on above:Performed By: #### CMP, CBCA #### [facility] ([id number]) [address] [place] [address] 98116Xehptwfa mean volume (Bld) [Entitic vol]8.6 fLNormal7-12 [facility]als Conneaut Medical CenterComment on above:Performed By: #### CMP, CBCA #### [facility] ([id number]) [address] [place] [address] 16938Ffnaqmtyi (Bld) [#/Vol]225 10*3/mTAwpfzd156-595QzfKnvsfc Fremont HospitalComment on above:Performed By: #### CMP, CBCA #### [facility] ([id number]) [address] [place] [address] 86621SSF COUNT4.55 X10E12/LNormal3.80-5.20[facility] Comment on above:Performed By: #### MARLENE, CBCA #### [facility] ([id number]) [address] [place] [address] 54535IVD (Bld) [#/Vol]4.6 10*3/uLNormal4.0-11.0ProCarl R. Darnall Army Medical CenterComment on above:Performed By: #### CMP, CBCA #### [facility] ([id number]) [address] [place] [address] 74074LEKNQKJUSYKVN METABOLIC PANELon 60-07-9584Qktiish [Mass/Vol]3.6 g/dLNormal3.2-5.3PSalem Regional Medical CenterComment on above:Performed By: #### CMP, CBCA #### [facility] ([id number]) [address] [place] [address], [place] [address]DPR [Catalytic activity/Vol]65 U/ZMnonpb41-650BnuDptorkCarl R. Darnall Army Medical CenterComment on above:Performed By: #### CMP, CBCA #### [facility] ([id number]) [address] [place] [address], [place] [address]CWI [Catalytic activity/Vol]29 U/LNormal0-31PSalem Regional Medical CenterComment on above:Performed By: #### CMP, CBCA #### [facility] ([id number]) [address] [place] [address], [place] [address]Osrex gap [Moles/Vol]10 mmol/LNormal5-15ProCarl R. Darnall Army Medical CenterComment on above:Performed By: #### CMP, CBCA #### [facility] ([id number]) [address] [place] [address], [place] [address]CPB [Catalytic activity/Vol]36 U/LNormal0-41ProCarl R. Darnall Army Medical CenterComment on above:Performed By: #### CMP, CBCA #### [facility] ([id number]) [address] [place] [address], [place] [address]Zqcbzrged [Mass/Vol]0.9 mg/dLNormal0.3-1.2PSalem Regional Medical CenterComment on above:Performed By: #### MARLENE, CBCA #### [facility] ([id number]) [address] [place] [address], [place] [address]Knteiml [Mass/Vol]8.3 mg/dLLow8.5-10.5PSalem Regional Medical CenterComment on above:Performed By: #### MARLENE, CBCA #### [facility] ([id number]) [address] [place] [address], [place] [address]Ltdotuwu [Moles/Vol]103 mmol/DRtlwoq82-256VpjEqojufCarl R. Darnall Army Medical CenterComment on above:Performed By: #### MARLENE CBCA #### [facility] ([id number]) [address] [place] [address], [place] [address]RC6 [Moles/Vol]22 mmol/ISdghhi82-15BlaUbyztxSalem Regional Medical Center Comment on above:Performed By: #### MARLENE, CBCA #### [facility] ([id number]) [address] [place] [address], [place] [address]Opkhiyzzkb [Mass/Vol]0.72 mg/dLNormal0.40-1.00ProCarl R. Darnall Army Medical CenterComment on above:Result Comment: METHOD TRACEABLE TO IDMS STANDARD Performed By: #### MARLENE, CBCA #### [facility] ([id number]) [address] [place] [address], [place] [address]nBSU (CKD-EPI) NON-RACE DEPENDENT>90Normal>59ProCarl R. Darnall Army Medical CenterComment on above:Result Comment: Reported eGFR is based on the CKD-EPI 2020 equation that does not use a race coefficient.Performed By: #### MARLENE, CBCA #### [facility] ([id number]) [address] [place] [address] 38742Maqkhew [Mass/Vol]103 mg/qUBluk75-94HqiPzwqjwCarl R. Darnall Army Medical Center Comment on above:Performed By: #### CMP, CBCA #### [facility] ([id number]) [address] [place] [address] 38125Trtfjtqhz [Moles/Vol]3.5 mmol/LNormal3.5-5.0ProCarl R. Darnall Army Medical CenterComment on above:Performed By: #### CMP, CBCA #### [facility] ([id number]) [address] [place] [address] 16451Olktgnh [Mass/Vol]6.9 g/dLNormal6.0-8.0ProCarl R. Darnall Army Medical CenterComment on above:Performed By: #### CMP, CBCA #### [facility] ([id number]) [address] [place] [address] 66538Wbvqdq [Moles/Vol]135 mmol/GPyzolu969-474EwpBjhudo Fremont HospitalComment on above:Performed By: #### CMP, CBCA #### [facility] ([id number]) [address] [place] [address] 37075Cjuh nitrogen [Mass/Vol]16 mg/dLNormal5-23ProCarl R. Darnall Army Medical CenterComment on above:Performed By: #### CMP, CBCA #### [facility] ([id number]) [address] [place] [address] 05843LS ABDOMEN AND PELVIS W CONTon 26-32-7113CU ABDOMEN AND PELVIS W CONTCT ABDOMEN AND [...] by Huang Burleson MD on 08/28/2024 8:12 PMNormalProCarl R. Darnall Army Medical CenterHCG ( test) Ql (U)on 03-78-8545Sokb HCG ( test) Ql (U) NegativeNormalNEGUniversity Hospitals Conneaut Medical CenterComment on above:Performed By: #### 2106-3 #### [facility] ([id number]) [address] [place] [address] 13329ENV MACROSCOPIC NURon 54-20-6298KKZFLHKLT NURSmallAbnormalNEG [facility] Medical CenterComment on above:Performed By: #### NUM #### [facility] ([id number]) [address] [place] [address] 44327BWSEI/HGB NURNegativeNormalNEGProCarl R. Darnall Army Medical CenterComment on above:Performed By: #### NUM #### [facility] ([id number]) [address] [place] [address] 49450OBCLOHT NURNegativeNormalNEGProCarl R. Darnall Army Medical CenterComment on above:Performed By: #### NUM #### [facility] ([id number]) [address] [place] [address], [place] [address]BEBFMKN NURNegativeNormalNEGProCarl R. Darnall Army Medical CenterComment on above:Performed By: #### NUM #### [facility] ([id number]) [address] [place] [address], [place] [address]OQHLWOHHN ESTERASE NURNegativeNormalNEGProCarl R. Darnall Army Medical CenterComment on above:Performed By: #### NUM #### [facility] ([id number]) [address] [place] [address], [place] [address]EHBGPNE NURNegativeNormalNEGProCarl R. Darnall Army Medical CenterComment on above:Performed By: #### NUM #### [facility] ([id number]) [address] [place] [address], [place] [address]ED NUR5.5Fjtnhs1.0-8.5PSalem Regional Medical CenterComment on above:Performed By: #### NUM #### [facility] ([id number]) [address] [place] [address], [place] [address]BEDVVGB MOLLY>=300AbnormalNEGUniversity Hospitals Conneaut Medical CenterComment on above:Performed By: #### NUM #### [facility] ([id number]) [address] [place] [address], [place] [address]UGRMZADG GRAVITY MOLLY>=1.346Saptfy2.003-1.035ProCarl R. Darnall Army Medical CenterComment on above:Performed By: #### NUM #### [facility] ([id number]) [address] [place] [address], [place] [address]CXPHBXOIMGKQ NUR0.2 eu/dLNormal<1.1PSalem Regional Medical Center Comment on above:Performed By: #### NUM #### [facility] ([id number]) [address] [place] [address], [place] [address]KBIW TRICHOMONAS/WET PREPon 83-56-2781QNT PREP TRIC BV CYDNEY Wet Prep Tric BV Cydney WP.BACT Bacteria^Bacteria NOMS HealthcareWET PREP TRIC BV CANDIDAWP.CLUE Clue Cells^Clue CellsNOMS HealthcareWET PREP TRIC BV CANDIDAWP.JEANNETTE Fungal Elements^Fungal ElementsNOMS HealthcareWET PREP TRIC BV CANDIDAWP.RBC RBC^RBCNOMS HealthcareWET PREP TRIC BV CANDIDAWP.TRICH Trichomonas^TrichomonasNOMS HealthcareWET PREP TRIC BV CYDNEY WP.WBC WBC^WBCNOMS HealthcareCLINISYNCNOMS HealthcareNo Panel Informationon 01-10-3434AXZ PREP TRIC BV CANDIDAF Few^FewNOMS HealthcareWET PREP TRIC BV CANDIDAN None Seen^None SeenNOMS HealthcareXR LUMBAR SPINE 2 OR 3Von 06-03-2024 [place] [address] XRay Report Signed Patient: JES ROMERO MR#: [id number] : 2000 Acct:[id number] Age/Sex: 23 / F ADM Date: 06/01/24 Loc: [facility] Attending Dr: Manuel Noel M.D. Ordering Physician: Manuel Noel M.D. Date of Service: 06/01/24 Procedure(s): XR lumbar spine 2-3V Accession Number(s): [id number] cc: Manuel Noel M.D. [address] [address] Patient Name: JES ROMERO MRN: [id number] date: 2000 Sex: F Assigned Patient Location: [facility] Current Patient Location: Accession/Order Number: [id number] Exam Date: 06/01/2024 14:19 Report Date: 06/03/2024 [...] Signed By: 06/03/24 1313 DD/ 1310 TD/TT: Peanut Vendor:YOUNGadiologjosué, Radiologist, - 06/03/2024 [place] [address] XRay Report Signed Patient: JES ROMERO MR#: [id number] : 2000 Acct:[id number] Age/Sex: 23 / F ADM Date: 06/01/24 Loc: [facility] Attending Dr: Manuel Noel M.D. Ordering Physician: Manuel Noel M.D. Date of Service: 06/01/24 Procedure(s): XR lumbar spine 2-3V Accession Number(s): [id number] cc: Manuel Noel M.D. [address] [place] [address] Patient Name: JES ROMERO MRN: [id number] date: 2000 Sex: F Assigned Patient Location: [facility] Current Patient Location: Accession/Order Number: [id number] Exam Date: 06/01/2024 14:19 Report Date: 06/03/2024 [...] Signed By: 06/03/24 1313 DD/ 1310 TD/TT: Peanut Vendor: CESAR HealthcareRadiology Study observation (narrative)NOMMaribell HealthcareXR LUMBAR SPINE 2 OR 3VOrdered By: Radiologist Radiology on 42-67-7293R[facility] Work Phone: PRBC LEUKOREDUCEDon 82-16-6773PBD and Rh group Nom (Bld)Cross Match Result Compatible Unit Blood Type O Pos Unit Number [id number] Status Information Transfused Product ID Red Blood Cells Product Code [id number] Cross Match Result Compatible Unit Blood Type O Pos Unit Number [id number] Status Information Transfused Product ID Red Blood Cells Product Code [id number] City HospitalComment on above:Performed By: #### PRBC ####[facility] Tibkhkfqch[address] [place], [place] [address]Dr. Benoit DiggsCBC AUTO DIFFon 00-65-4695YTAP #0.1 103/ulNormal0.0-0.1The [facility] HospitalComment on above:Performed By: #### CBC ####[facility] Ygxjfpbobw[address] [place], [place] [address]Dr.Benoit DiggsBasophils/100 WBC (Bld)1.2 %Normal0.2-2.0The Community Memorial Hospitalment on above:Performed By: #### CBC ####[facility] Rcuimhkrwm[address] [place], [place] [address]Dr.Benoit ChangEO #0.4 103/ulNormal0.0-0.7The [facility] HospitalComment on above:Performed By: #### CBC ####[facility] Cisnwtztbi84[address] [place], [place] [address]Dr.Benoit ChangEosinophils/100 WBC (Bld)4.5 %Normal 0.9-7.0The [facility] HospitalComment on above:Performed By: #### CBC ####[facility] Jokresxwrm[address] [place], [place] [address]Dr.Benoit Diggs Erythrocyte distribution width (RBC) [Ratio]16.6 %Critically high11.0-15.0The [facility] HospitalComment on above:Performed By: #### CBC ####[facility] [address] [place] [address]Dr.Benoit DontaeHematocrit (Bld) [Volume fraction]40.3 %Cpuvbi77.0-48.0The [facility] HospitalComment on above:Performed By: #### CBC ####[facility] Ebuuloedtu[address] [place], [place] [address]Dr.Benoit DiggsHemoglobin (Bld) [Mass/Vol]12.6 g/dL Kujjsj21.0-16.0The [facility] HospitalComment on above:Performed By: #### CBC ####[facility] Vfjfxarveo50[address] [place], [place] [address]Dr. Benoit ChangIG #0.04 10e3/ulCritically high0.00-0.03The [facility] HospitalComment on above:Performed By: #### CBC ####[facility] Iqbqxnvqvy[address] [place], [place] [address]Dr.Benoit DiggsIG %0.5 %Normal0.0-0.5The [facility] HospitalComment on above:Performed By: #### CBC ####[facility] Wgtvmdzuqz68[address] [place], [place] [address]Dr.Benoit DiggsLYMPH #3.0 103/ulNormal1.2-3.8The [facility] HospitalComment on above:Performed By: #### CBC ####[facility] Ludebgrqhu[address] [place], [place] [address]Dr. Benoit DiggsLymphocytes/100 WBC (Bld)36.0 %Krktyy25.5-60.0The [facility] Comment on above:Performed By: #### CBC ####[facility] Xenkwnxeyc[address] [place], [place] [address]Dr.Benoit DiggsMANUAL DIFF REQNONormalThe [facility] HospitalComment on above:Performed By: #### CBC ####[facility] Eoskusyhxj25[address] [place], [place] [address]Dr.Benoit DiggsMCH (RBC) [Entitic mass]25.3 pgCritically low26.7-34.0The [facility] HospitalComment on above:Performed By: #### CBC ####[facility] Ubrgrfdwph45[address] [place], [place] [address]Dr.Benoit DiggsMCHC (RBC) [Mass/Vol]31.3 g/dLNormal 29.9-35.2The [facility] HospitalComment on above:Performed By: #### CBC ####[facility] Augrghkvnm8246[address] [place], [place] [address]Dr. Benoit DiggsMCV (RBC) [Entitic vol]80.9 fLCritically low81.0-99.0The [facility] HospitalComment on above:Performed By: #### CBC ####[facility] Ujwivwvsph9[address] [place], [place] [address]Dr.Benoit DiggsMONO #0.4 103/ulNormal0.3-0.8The [facility] HospitalComment on above:Performed By: #### CBC ####[facility] Ggkziccext38[address] [place], [place] [address]Dr. Benoit DontaeMonocytes/100 WBC (Bld)4.8 %Normal1.7-12.0The [facility] Comment on above:Performed By: #### CBC ####[facility] Jeexyppblm468[address] [place], [place] [address]Dr.Benoit DiggsNEUT #4.4 103/ulNormal1.4-6.5 The [facility] HospitalComment on above:Performed By: #### CBC ####[facility] Ntrvkdmbum8725[address] [place], [place] [address]Dr.Benoit Diggs Neutrophils/100 WBC (Bld)53.0 %Zivsna20.0-75.0The [facility] HospitalComment on above:Performed By: #### CBC ####[facility] Cduamllxbf7[address] [place], [place] [address]Dr.Karyaurora DontaePlatelet mean volume (Bld) [Entitic vol] 10.8 fLNormal9.5-13.5The [facility] HospitalComment on above:Performed By: #### CBC ####[facility] [address] [place] [address]Dr. Benoit DiggsPLT410 103/xxZffism540-789Tel [facility] HospitalComment on above: Performed By: #### CBC ####[facility] Ju[address]qknox[address] [place] [address]Dr.Benoit DiggsRBC4.98 106/ulNormal4.20-5.40The [facility] HospitalComment on above:Performed By: #### CBC ####[facility] Rvdfqlcltm7[address] [place], [place] [address]Dr.Benoit DiggsWBC8.3 103/ul Normal4.0-11.0The [facility] HospitalComment on above:Performed By: #### CBC ####[facility] Spggiofkeo58[address] [place], [place] [address]Dr. Karyaurora DontaeGLYCOHEMOGLOBIN A1Con 87-80-2188SHD RECOMMENDATIONSEE [facility] Children's HospitalComment on above:Result Comment: ADA RECOMMENDED LIMIT 4.0 - 6.0 ADA THERAPEUTIC TARGET < 7.0 ACTION SUGGESTED > 7.0Performed By: #### A1C ####[facility] Tadaikqczx19[address] [place], [place] [address]Dr. Karyaurora DontaeGlucose [Mass/Vol]100 mg/dLPremier Health Miami Valley Hospital NorthComup health system on above:Performed By: #### A1C ####[facility] Duieavjjpo4901[address] [place], [place] [address]Dr.Karyaurora MaryaKsF7z (Bld) [Mass fraction]5.1 %Normal 4.5-6.2The [facility] HospitalComment on above:Performed By: #### A1C ####[facility] Znxskgmiic2539[address] [place], [place] [address]Dr.Benoit DiggsLIPID PROFILEon 21-85-8614OVXD-HDL RATIO NORMSEE [facility] Comment on above:Result Comment: 3.3 - 4.4 LOW RISK 4.4 - 7.1 AVERAGE RISK 7.1 - 11.0 MODERATE RISK >11.0 HIGH RISKPerformed By: #### LIVER, LIPID, BMP, TSH ####[facility] [address]xqueb[address] [place] [address]Dr. Yilan ChangCholesterol [Mass/Vol]184 mg/dLNormal<=200The [facility] Comment on above:Performed By: #### LIVER, LIPID, BMP, TSH ####[facility] [address] [place] [address]Dr. Yilan ChangCholesterol in HDL [Mass/Vol]52 mg/nNGdvegv24-78Enr [facility] HospitalComment on above: Performed By: #### LIVER, LIPID, BMP, TSH ####[facility] Xletysggvt[address] [place] [address]Dr. Yilan ChangCholesterol in LDL [Mass/Vol] 114.8 mg/dLNoTwin City HospitalComment on above:Performed By: #### LIVER, LIPID, BMP, TSH ####[facility] Kviwgseboi60[address] [place], [place] [address]Dr. Yilan ChangCholesterol.total/Cholesterol in HDL [Mass ratio]3.5 {ratio}NormalThe [facility] HospitalComment on above:Performed By: #### LIVER, LIPID, BMP, TSH ####[facility] Z[address]mdfct[address] [place] [address]Dr. Yilan ChangHDL NORMAL> or = 60 mg/dl - LOW CARDIOVASCULAR RISK <40 mg/dl - HIGH CARDIOVASCULAR RISKNoTwin City HospitalComment on above: Performed By: #### LIVER, LIPID, BMP, TSH ####[facility] [address]sw[address]xdz[address] [place] [address]Dr. Yilan ChangLDL CALC NORMALSEE BELOW NormalThe [facility] HospitalComment on above:Result Comment: <100 mg/dl OPTIMAL 100 - 129 mg/dl NEAR OR ABOVE OPTIMAL 130 - 159 mg/dl BORDERLINE HIGH 160 - 189 mg/dl HIGH >190 mg/dl VERY HIGHPerformed By: #### LIVER, LIPID, BMP, TSH ####[facility] [address]upz[address] [place] [address]Dr. Yilan ChangTriglyceride [Mass/Vol]86 mg/dLNormal<=150The [facility] Comment on above:Performed By: #### LIVER, LIPID, BMP, TSH ####[facility] Xmzibnmggx[address] [place] [address]Dr. Yilan ChangVLDL CALC17.2 mg/dLNormalThe [facility] HospitalComment on above:Performed By: #### LIVER, LIPID, BMP, TSH ####[facility] [address]oksnef[address] [place] [address]Dr. Benoit DiggsLIVER PROFILEon 36-53-7859Ykdffxg [Mass/Vol]3.3 g/dL Critically low3.4-5.0The [facility] HospitalComment on above:Performed By: #### LIVER, LIPID, BMP, TSH ####[facility] Kfexosgwic[address] [place] [address]Dr. Yilan ChangAlbumin/Globulin [Mass ratio]0.8 {ratio}NormalThe [facility] HospitalComment on above:Performed By: #### LIVER, LIPID, BMP, TSH ####[facility] Qizjppeofi[address] [place] [address]Dr. Yilan ChangALP [Catalytic activity/Vol]110 U/EPlsonx44-304Brb [facility] HospitalComment on above:Performed By: #### LIVER, LIPID, BMP, TSH ####[facility] Qvmitecjmi[address] [place], [place] [address]Dr. Yilan ChangALT [Catalytic activity/Vol]25 U/FXdpjcg18-82Ffm [facility] Comment on above:Performed By: #### LIVER, LIPID, BMP, TSH ####[facility] Cchdiujkyf[address] [place], [place] [address]Dr. Yilan ChangAST [Catalytic activity/Vol]20 U/STtfndp76-16Vsq [facility] HospitalComment on above:Performed By: #### LIVER, LIPID, BMP, TSH ####[facility] Encjjdrjia[address] [place], [place] [address]Dr. Yilan ChangBILI, CONJUGATED0.1 mg/dLNormal0.0-0.2 The [facility] HospitalComment on above:Performed By: #### LIVER, LIPID, BMP, TSH ####[facility] Aoenwfcgew[address] [place], [place] [address]Dr. Yilan ChangBilirubin [Mass/Vol]0.4 mg/dLNormal0.2-1.0The [facility] Comment on above:Performed By: #### LIVER, LIPID, BMP, TSH ####[facility] Akeff[address]mdvq[address] [place] [address]Dr. Benoit ChangGlobulin (S) [Mass/Vol]3.9 g/dLNormalThe [facility] HospitalComment on above:Performed By: #### LIVER, LIPID, BMP, TSH ####[facility] B[address]ysipbyt[address] [place] [address]Dr. Benoit ChangProtein [Mass/Vol]7.2 g/dLNormal6.4-8.2 The [facility] HospitalComment on above:Performed By: #### LIVER, LIPID, BMP, TSH ####[facility] Denidadovx[address] [place] [address]Dr. Benoit DiggsPROF CHEM 8 (BAS METB)on 71-43-0131Yogee gap [Moles/Vol]13.2 mmol/L NormalSumma Health Barberton CampusComment on above:Performed By: #### CBC #### [facility] [address] [place] [address] [address] Benoit DiggsCalcium [Mass/Vol]9.2 mg/dLNormal8.5-10.1[facility] Comment on above:Performed By: #### CBC #### [facility] [address] [place] [address] [address] Benoit DiggsChloride [Moles/Vol]108 mmol/LCritically rdsh78-730Dhg [facility] HospitalComment on above:Performed By: #### CBC #### [facility] [address] [place] [address] [address] Benoit DiggsCO2 [Moles/Vol]27.9 mmol/JOwrgsv15.0-32.0The [facility] Comment on above:Performed By: #### CBC #### [facility] [address] [place] [address] [address] Benoit DiggsCreatinine [Mass/Vol]0.62 mg/dLNormal0.55-1.02[facility] Barber[facility] CampusComment on above:Performed By: #### CBC #### [facility] [address] [place] [address] [address] Benoit KrausGFR-AF KITTITIAN>60Normal>=60The [facility] HospitalComment on above:Performed By: #### CBC #### [facility] [address] [place] [address] [address] Benoit KrausGFR-NON AF KITTITIAN>60Normal>=60[facility] HospitalComment on above:Performed By: #### CBC #### [facility] [address] [address] [address] Benoit DiggsGlucose [Mass/Vol]92 mg/qTAtavru81-033[facility] Comment on above:Performed By: #### CBC #### [facility] [address] [place] [address] Dr. Benoit DiggsPotassium [Moles/Vol]4.1 mmol/LNormal3.5-5.1[facility] Comment on above:Performed By: #### CBC #### [facility] [address] [address] [address] Benoit DiggsSodium [Moles/Vol]145 mmol/TAqgqls367-273[facility]ciSum[facility] Comment on above:Performed By: #### CBC #### [facility] [address] [address] [address] Benoit DiggsUrea nitrogen [Mass/Vol]8.0 mg/dLNormal7.0-18.0The [facility] HospitalComment on above:Performed By: #### CBC #### [facility] [address] [address] [address] Benoit Sanchez nitrogen/Creatinine [Mass ratio]12.9 mg/mgNormalThe [facility] HospitalComment on above:Performed By: #### CBC #### [facility] [address] [address] [address] Benoit Becerra [id number] uIU/mLNormal0.358-3.740The [facility] HospitalComment on above:Performed By: #### CBC #### [facility] [address] [place] [address] Dr. Benoit Oseguera AUTO DIFFon [id number] #0.1 103/ulNormal0.0-0.1The [facility] HospitalComment on above:Performed By: #### CBC #### [facility] [address] [place] [address] Dr. Benoit DiggsBasophils/100 WBC (Bld)0.7 %Normal0.2-2.0[facility] Comment on above:Performed By: #### CBC #### [facility] [address] [place] [address] Dr. Benoit Aleman #0.4 103/ulNormal0.0-0.7The [facility] HospitalComment on above: Performed By: #### CBC #### [facility] [address] [place] [address] Dr. Benoit Krausosinophils/100 WBC (Bld)3.8 %Normal0.9-7.0[facility] Comment on above:Performed By: #### CBC #### [facility] [address] [place] [address] Dr. Benoit Krausrythrocyte distribution width (RBC) [Ratio]15.2 %Critically high 11.0-15.0The [facility] HospitalComment on above:Performed By: #### CBC #### [facility] [address] [place] [address] Dr. Benoit DiggsHematocrit (Bld) [Volume fraction]28.7 %Critically low36.0-48.0 The [facility] HospitalComment on above:Performed By: #### CBC #### [facility] [address] [place] [address] Dr. Benoit DiggsHemoglobin (Bld) [Mass/Vol]9.1 g/dLCritically low12.0-16.0The [facility] HospitalComment on above:Performed By: #### CBC #### [facility] [address] [place] [address] Dr. Benoit Amado #0.05 10e3/ulCritically high0.00-0.03The [facility] Comment on above:Performed By: #### CBC #### [facility] [address] [place] [address] Dr. Benoit Amado %0.5 %Normal0.0-0.5The [facility] HospitalComment on above: Performed By: #### CBC #### [facility] [address] [place] [address] Dr. Benoit Dennis #3.3 103/ulNormal1.2-3.8The [facility] HospitalComment on above:Performed By: #### CBC #### [facility] [address] [place] [address] Dr. Benoit Beckmanhocytes/100 WBC (Bld)31.8 %Rynmxj19.5-60.0The [facility] HospitalComment on above:Performed By: #### CBC #### [facility] [address] [place] [address] Dr. Benoit FuentesUAL DIFF REQNONormalThe [facility] HospitalComment on above: Performed By: #### CBC #### [facility] [address] [place] [address] Dr. Benoit Fisher (RBC) [Entitic mass]25.3 pgCritically low26.7-34.0The [facility] HospitalComment on above:Performed By: #### CBC #### [facility] [address] [place] [address] Dr. Benoit Lima (RBC) [Mass/Vol]31.7 g/nJZaxhjl47.9-35.2The [facility] HospitalComment on above:Performed By: #### CBC #### [facility] [address] [place] [address] Dr. Benoit Lima (RBC) [Entitic vol]79.9 fLCritically low81.0-99.0The [facility] HospitalComment on above:Performed By: #### CBC #### [facility] [address] [place] [address] Dr. Benoit Castellano #0.7 103/ulNormal0.3-0.8The [facility] HospitalComment on above:Performed By: #### CBC #### [facility] [address] [place] [address] Dr. Benoit Funezocytes/100 WBC (Bld)7.2 %Normal1.7-12.0[facility] Comment on above:Performed By: #### CBC #### [facility] [address] [place] [address] Dr. Benoit Amaya #5.8 103/ulNormal1.4-6.5The [facility] HospitalComment on above:Performed By: #### CBC #### [facility] [address] [place] [address] Dr. Benoit Herrerautrophils/100 WBC (Bld)56.0 %Mimqxb01.0-75.0The [facility] HospitalComment on above:Performed By: #### CBC #### [facility] [address] [place] [address] Dr. Benoit Pearllet mean volume (Bld) [Entitic vol]10.5 fLNormal9.5-13.5The [facility] HospitalComment on above:Performed By: #### CBC #### [facility] [address] [place] [address] Dr. Benoit DiggsPLT152 103/ovWntoug397-283Jkq [facility] HospitalComment on above: Performed By: #### CBC #### [facility] [address] [place] [address] Dr. Benoit DiggsRBC3.59 106/ulCritically low4.20-5.40The [facility] HospitalComment on above:Performed By: #### CBC #### [facility] [address] [place] [address] Dr. Benoit DiggsWBC10.3 103/ulNormal4.0-11.0The [facility] HospitalComment on above:Performed By: #### CBC #### [facility] [address] [place] [address] Dr. Benoit Oseguera AUTO DIFFon [id number] #0.0 103/ulNormal0.0-0.1The [facility] HospitalComment on above:Performed By: #### CBC #### [facility] [address] [address] [address] Benoit DiggsBasophils/100 WBC (Bld)0.4 %Normal0.2-2.0[facility] Comment on above:Performed By: #### CBC #### [facility] [address] [place] [address] Dr. Benoit Aleman #0.3 103/ulNormal0.0-0.7The [facility] HospitalComment on above: Performed By: #### CBC #### [facility] [address] [place] [address] Dr. Benoit Krausosinophils/100 WBC (Bld)3.1 %Normal0.9-7.0[facility] Comment on above:Performed By: #### CBC #### [facility] [address] [place] [address] Dr. Benoit Krausrythrocyte distribution width (RBC) [Ratio]15.5 %Critically high 11.0-15.0The [facility] HospitalComment on above:Performed By: #### CBC #### [facility] [address] [place] [address] Dr. Benoit DiggsHematocrit (Bld) [Volume fraction]22.0 %Critically low36.0-48.0 The [facility] HospitalComment on above:Performed By: #### CBC #### [facility] [address] [place] [address] Dr. Benoit DiggsHemoglobin (Bld) [Mass/Vol]6.8 g/dLCritically low12.0-16.0The [facility] HospitalComment on above:Performed By: #### CBC #### [facility] [address] [place] [address] Dr. Benoit Amado #0.05 10e3/ulCritically high0.00-0.03The [facility] Comment on above:Performed By: #### CBC #### [facility] [address] [address] [address] Benoit Amado %0.5 %Normal0.0-0.5The [facility] HospitalComment on above: Performed By: #### CBC #### [facility] [address] [address] [address] Benoit Dennis #2.9 103/ulNormal1.2-3.8The [facility] HospitalComment on above:Performed By: #### CBC #### [facility] [address] [address] [address] Benoit Beckmanhocytes/100 WBC (Bld)31.0 %Hbshvz94.5-60.0The [facility] HospitalComment on above:Performed By: #### CBC #### [facility] [address] [place] [address] Dr. Benoit FuentesUAL DIFF REQNONormalThe [facility] HospitalComment on above: Performed By: #### CBC #### [facility] [address] [place] [address] Dr. Benoit Lima (RBC) [Entitic mass]24.6 pgCritically low26.7-34.0The [facility]ment on above:Performed By: #### CBC #### [facility] [address] [place] [address] Dr. Benoit Lima (RBC) [Mass/Vol]30.9 g/oHGxecfj20.9-35.2The [facility] HospitalComment on above:Performed By: #### CBC #### [facility] [address] [place] [address] Dr. Benoit Lima (RBC) [Entitic vol]79.7 fLCritically low81.0-99.0The [facility] HospitalComment on above:Performed By: #### CBC #### [facility] [address] [place] [address] Dr. Benoit Castellano #0.8 103/ulNormal0.3-0.8The [facility] HospitalComment on above:Performed By: #### CBC #### [facility] [address] [place] [address] Dr. Benoit Funezocytes/100 WBC (Bld)7.9 %Normal1.7-12.0The [facility] on above:Performed By: #### CBC #### [facility] [address] [place] [address] Dr. Benoit HerreraUT #5.4 103/ulNormal1.4-6.5The [facility] HospitalComment on above:Performed By: #### CBC #### [facility] [address] [place] [address] Dr. Benoit Herrerautrophils/100 WBC (Bld)57.1 %Ghoamw20.0-75.0The [facility] HospitalComment on above:Performed By: #### CBC #### [facility] [address] [place] [address] Dr. Benoit DiggsPlatelet mean volume (Bld) [Entitic vol]11.9 fLNormal9.5-13.5The [facility] HospitalComment on above:Performed By: #### CBC #### [facility] [address] [place] [address] Dr. Benoit DiggsPLT180 103/jzImezhx814-135Cso [facility] HospitalComment on above: Performed By: #### CBC #### [facility] [address] [place] [address] Dr. Benoit DiggsRBC2.76 106/ulCritically low4.20-5.40The [facility] HospitalComment on above:Performed By: #### CBC #### [facility] [address] [place] [address] Dr. Benoit DiggsWBC9.5 103/ulNormal4.0-11.0The [facility] HospitalComup health system on above: Performed By: #### CBC #### [facility] [address] [place] [address] Dr. Benoit Ramírez [id number]agbRLYENLZWTqa [facility] HospitalComment on above:Performed By: #### CBC #### [facility] [address] [address] [address] Benoit Oseguera AUTO DIFFon [id number] #0.1 103/ulNormal0.0-0.1The [facility] HospitalComment on above:Performed By: #### CBC ####[facility] [address] [place], [place] [address]DrQuincy DiggsBasophils/100 WBC (Bld)0.6 %Normal0.2-2.0The [facility] HospitalComment on above:Performed By: #### CBC ####[facility] [address] [place] [address] ChangEO #0.4 103/ulNormal0.0-0.7The [facility] HospitalComment on above:Performed By: #### CBC ####[facility] [address] [place], [place] [address]Dr.Yilan Krausosinophils/100 WBC (Bld)3.5 %Normal 0.9-7.0The [facility] HospitalComment on above:Performed By: #### CBC ####[facility] [address] [place], [place] [address]Dr.Yilan Diggs Erythrocyte distribution width (RBC) [Ratio]15.4 %Critically high11.0-15.0The [facility] HospitalComment on above:Performed By: #### CBC ####[facility] [address] [place], [place] [address]DrQuincy DiggsHematocrit (Bld) [Volume fraction]26.4 %Critically low36.0-48.0The [facility] HospitalComment on above:Performed By: #### CBC ####[facility] [address] [place], [place] [address]DrQuincy DiggsHemoglobin (Bld) [Mass/Vol]8.4 g/dL Critically low12.0-16.0The [facility] HospitalComment on above:Performed By: #### CBC ####[facility] [address] [place], [place] [address]Dr. Benoit DiggsIG #0.04 10e3/ulCritically high0.00-0.03The [facility] HospitalComment on above:Performed By: #### CBC ####[facility] [address] [address]Dr.Benoit DiggsIG %0.4 %Normal0.0-0.5The [facility] HospitalComment on above:Performed By: #### CBC ####[facility] [address] [place], [place] [address]Dr.Benoit DiggsLYMPH #2.8 103/ulNormal1.2-3.8The [facility] HospitalComment on above:Performed By: #### CBC ####[facility] Qgiffaesrw[address] [place], [place] [address]Dr. Benoit DiggsLymphocytes/100 WBC (Bld)26.9 %Llglab82.5-60.0[facility] Comment on above:Performed By: #### CBC ####[facility] [address] [place], [place] [address]Dr.Benoit DiggsMANUAL DIFF REQNONormalThe [facility] HospitalComment on above:Performed By: #### CBC ####[facility] Ewatrrlend[address] [place], [place] [address]Dr.Benoit DiggsM[facility] (RBC) [Entitic mass]24.7 pgCritically low26.7-34.0The [facility] HospitalComment on above:Performed By: #### CBC ####[facility] E[address]qwe[address] [place], [place] [address]Dr.Benoit DiggsHC (RBC) [Mass/Vol]31.8 g/dLNormal 29.9-35.2The [facility] HospitalComment on above:Performed By: #### CBC ####[facility] Ywx[address] [place], [place] [address]Dr. Benoit DiggsV (RBC) [Entitic vol]77.6 fLCritically low81.0-99.0The [facility] HospitalComment on above:Performed By: #### CBC ####[facility] [address] [address]Dr.Benoit DiggsMONO #0.7 103/ulNormal0.3-0.8The [facility] HospitalComment on above:Performed By: #### CBC ####[facility] Kwppauxzxs[address] [place], [place] [address]Dr. Yilan ChangMonocytes/100 WBC (Bld)6.2 %Normal1.7-12.0[facility] Comment on above:Performed By: #### CBC ####[facility] Nxwqsuyang[address] [place], [place] [address]Dr.Yilan ChangNEUT #6.5 103/ulNormal1.4-6.5 The [facility] HospitalComment on above:Performed By: #### CBC ####[facility] Rwe[address]aih[address] [place], [place] [address]Dr.Benoit Diggs Neutrophils/100 WBC (Bld)62.4 %Mswnop29.0-75.0The [facility] HospitalComment on above:Performed By: #### CBC ####[facility] [address] [place], [place] [address]Dr.Benoit ChangPlatelet mean volume (Bld) [Entitic vol] 11.0 fLNormal9.5-13.5The [facility] HospitalComment on above:Performed By: #### CBC ####[facility] [address] [place], [place] [address]Dr. Yilan RgerdJHX492 103/csGxtcyb717-615Jeb [facility] HospitalComment on above: Performed By: #### CBC ####[facility] [address] [place], [place] [address]Dr.Yilan ChangRBC3.40 106/ulCritically low4.20-5.40The [facility] HospitalComment on above:Performed By: #### CBC ####[facility] [address] [place], [place] [address]Dr.Yilan TbhgpHWP87.4 103/ul Normal4.0-11.0The [facility] HospitalComment on above:Performed By: #### CBC ####[facility] [address] [address]Dr. Benoit Jennings SCREEN RAPID (URINE)on 15-01-2367LSUKpmlndhbYhomcfQNHXDUDFIfq [facility] HospitalComment on above:Performed By: #### CBC #### [facility] [address] [place] [address] Dr. Benoit DiggsBARNegativeNormneNEGOhioHealth Grady Memorial HospitalComup health system on above: Performed By: #### CBC #### [facility] [address] [address] [address] Benoit RiosPNegativeNormalNEGOhioHealth Grady Memorial HospitalComup health system on above: Performed By: #### CBC #### [facility] [address] [place] [address] Dr. Benoit DiggsBZONegativeNormneNEGOhioHealth Grady Memorial HospitalComup health system on above: Performed By: #### CBC #### [facility] [address] [place] [address] Dr. Benoit RamirezCNegativermneNEGOhioHealth Grady Memorial HospitalComup health system on above: Performed By: #### CBC #### [facility] [address] [place] [address] Dr. Benoit WagnerSt. Anthony's HospitalComup health system on above: Result Comment: AMP (Amphetamine): 500ng/mL, BAR (Barbituates): 200 ng/mL, BZO (Benzodiazepines): 150 ng/mL, BUP (Buprenorphine): 10 ng/mL, JOSE MANUEL (Cocaine): 150 ng/mL, mAMP (Methamphetamine): 500 ng/mL, MTD (Methadone): 200 ng/mL, OPI (Opiates): 100 ng/mL, OXY (Oxycodone): 100 ng/mL, PCP (Phencyclidine): 25 ng/mL, PPX (Propoxyphene): 300 ng/mL, THC (Cannabinoids): 50 ng/mL, TCA (Trycyclic Antidepressants): 300 ng/mLPerformed By: #### CBC #### [facility] [address] [place] [address] Dr. Benoit Jennings CUT HEADERDRUG CLASS TEST SYSTEM CUT-OFF CONCENTRATIONS ARE FOLLOWS:NormalThe [facility] HospitalComment on above:Performed By: #### CBC #### [facility] [address] [address] [address] Benoit DiggsmAMPNegativeNormalNEGATIVESumma Health Barberton CampusComment on above: Performed By: #### CBC #### [facility] [address] [place] [address] Dr. Benoit DiggsMTDNegativeNormalNEGATIVESumma Health Barberton CampusComment on above: Performed By: #### CBC #### [facility] [address] [address] [address] Benoit DiggsOPINegativeNormalNEGATIVESumma Health Barberton CampusComment on above: Performed By: #### CBC #### [facility] [address] [place] [address] Dr. Benoit DiggsOXYNegativeNormalNEGATIVESumma Health Barberton CampusComment on above: Performed By: #### CBC #### [facility] [address] [address] [address] Benoit DiggsPCPNegativeNormalNEGATIVESumma Health Barberton CampusComup health system on above: Performed By: #### CBC #### [facility] [address] [place] [address] Dr. Benoit DiggsPPXNegativeNormalNEGMercy Memorial Hospital on above: Performed By: #### CBC #### [facility] [address] [place] [address] Dr. Benoit DiggsTCANegativeNormalNEGATIVERegional Medical Center HospitalComup health system on above: Performed By: #### CBC #### [facility] [address] [place] [address] Dr. Benoit DiggsTHCNegativeNormalNEGATIVEMagruder Memorial Hospitalment on above: Performed By: #### CBC #### [facility] [address] [place] [address] Dr. Benoit Delgado AND SCREENon 56-82-0683ILRO AND SCREENNegativeNormalThe [facility] HospitalComment on above:Performed By: #### TNS #### [facility] [address] [address] [address] Benoit Wiseman (CLEAN/CATCH) HYDRAULIC RUBBISH COMPACTOR MECHANIC/MICRO IF IND.on [id number] Ql (U) NegativeNormalNEGATIVEMagruder Memorial Hospitalment on above:Performed By: #### CBC #### [facility] [address] [address] [address] Benoit DiggsClarity (U)CLEARNormalCLEARMagruder Memorial Hospitalment on above: Performed By: #### CBC #### [facility] [address] [address] [address] Benoit DiggsColor (U)YELLOWNormalYELLOWSumma Health Barberton CampusComup health system on above: Performed By: #### CBC #### [facility] [address] [place] [address] Dr. Benoit DiggsGlucose Ql (U)NegativeNormalNEGATIVESumma Health Barberton CampusComment on above:Performed By: #### CBC #### [facility] [address] [address] [address] Benoit DiggsHemoglobin Ql (U)NegativeNormalNEGOhio State Harding Hospital on above:Performed By: #### CBC #### [facility] [address] [address] [address] Benoit DiggsKetones Ql (U)NegativeNormalNEGATIVEMagruder Memorial Hospitalment on above:Performed By: #### CBC #### [facility] [address] [address] [address] Benoit DiggsLEUKOCYTESNegativeNormalNEGATIVEProMedica Bay [facility] Hospital on above:Performed By: #### CBC #### [facility] [address] [address] [address] Benoit DiggsNitrite Ql (U)NegativeNormalNEGATIVEProMedica Bay Park Hospital on above:Performed By: #### CBC #### [facility] [address] [place] [address] Dr. Benoit DiggspH (U)6.0 [pH]Normal5-9The [facility] HospitalComment on above: Performed By: #### CBC #### [facility] [address] [place] [address] Dr. Benoit DiggsSPEC GRAVITY1.809Jechis8.005-<=1.025The [facility] HospitalComment on above:Performed By: #### CBC #### [facility] [address] [place] [address] Dr. Benoit Wiseman PROTEINTRACENormalNEGATIVE/ TRACEThe [facility] HospitalComment on above:Performed By: #### CBC #### [facility] [address] [place] [address] Dr. Benoit Veras MICRO INDNOT INDICATEDNormalThe [facility] HospitalComment on above:Performed By: #### CBC #### [facility] [address] [place] [address] Dr. Benoit Milesbilinogen Qn (U)4 {Nadege'U}/dLAbnormal0.2 - 1.0The [facility] Hospitalment on above:Performed By: #### CBC #### [facility] [address] [place] [address] Dr. Benoit GusmanLTPAULINE URINEon [id number] URINECulture Observations: MODERATE GROWTH OF MIXED GENITAL RIZWAN. NO POTENTIAL PATHOGENS SEEN.NormalThe [facility] HospitalComment on above:Performed By: #### URCX #### [facility] [address] [place] [address] Dr. Benoit Wiseman (CLEAN/CATCH) HYDRAULIC RUBBISH COMPACTOR MECHANIC/MICRO IF IND.on 22-96-1312Gkkjsxhft Ql (U) SMALLAbnormalNEGATIVEThe [facility] HospitalComment on above:Performed By: #### CBC #### [facility] [address] [place] [address] Dr. Benoit Rodrigezarity (U)CLEARNormalCLEARThe [facility] HospitalComment on above: Performed By: #### CBC #### [facility] [address] [place] [address] Dr. Benoit Loya (U)DK. ORANGEAbnormalYELLOWSumma Health Barberton CampusComment on above:Performed By: #### CBC #### [facility] [address] [address] [address] Benoit DiggsGlucose Ql (U)NegativeNormalNEGATIVESumma Health Barberton CampusComment on above:Performed By: #### CBC #### [facility] [address] [address] [address] Benoit DiggsHemoglobin Ql (U)NegativeNormalNEGOhioHealth Grady Memorial Hospital Comment on above:Performed By: #### CBC #### [facility] [address] [address] [address] Benoit DiggsKetones Ql (U)TRACEAbnormalNEGATIVESumma Health Barberton CampusComment on above:Performed By: #### CBC #### [facility] [facility] [address] [place] [address] Dr. Benoit DiggsLEUKOCYTESSMALLAbnoalNEGOhioHealth Grady Memorial HospitalComment on above:Performed By: #### CBC #### [facility] [address] [place] [address] Dr. Benoit DiggsNitrite Ql (U)NegativeNormalNEGOhioHealth Grady Memorial HospitalComment on above:Performed By: #### CBC #### [facility] [address] [place] [address] Dr. Benoit DiggspH (U)5.5 [pH]Normal5-9[facility] CampusComment on above: Performed By: #### CBC #### [facility] [address] [place] [address] Dr. Benoit DiggsSPEC GRAVITY>=1.507Enzhsjki5.005-<=1.025[facility] Comment on above:Performed By: #### CBC #### [facility] [address] [address] [address] Benoit Wiseman PHUBACM165 mg/dlAbnoalNEGTHE [facility]ER [facility]/ TRACESumma [facility] Campus Comment on above:Performed By: #### CBC #### [facility] [address] [place] [address] Dr. Benoit Veras MICRO INDINDICATEDNoalThPaulding County HospitalComment on above: Performed By: #### CBC #### [facility] [address] [address] [address] Benoit Kahn Qn (U)8 {Nadege'U}/dLAbnormal0.2 - 1.0[facility] on above:Performed By: #### CBC #### [facility] [address] [address] [address] Benoit Stewart MICROSCOPIC ONLYon [id number]AAIL SEENProMedica Bay Park Hospital on above:Performed By: #### CBC #### [facility] [address] [address] [address] Benoit Loco identified Cx Nom (U)INDICATEDNoalThVeterans Health Administration on above:Performed By: #### CBC #### [facility] [address] [place] [address] Dr. Benoit Norton SEENNormalNONE SEENProMedica Bay Park Hospital on above:Performed By: #### CBC #### [facility] [address] [place] [address] Dr. Benoit Gomez LM Nom (Urine sed)NONE SEENNormalNONE SEENProMedica Bay Park Hospital on above:Performed By: #### CBC #### [facility] [address] [place] [address] Dr. Laboy ChangEpithelial cells LM Ql (Urine sed)MANYAbnormalNONE SEEN /RAREThe [facility] on above:Performed By: #### CBC #### [facility] [address] [place] [address] Dr. Benoit TalbertMALLAbnormalNONE SEENProMedica Bay Park Hospital on above:Performed By: #### CBC #### [facility] [address] [place] [address] Dr. Benoit CevallosLucibYEQ0-76Lzgfywgt4-2Uad [facility] on above:Performed By: #### CBC #### [facility] [address] [place] [address] Dr. Benoit ChristineYjfjcGQD39-12OyhtgglpZLGJ SEENThe [facility] HospitalComment on above: Performed By: #### CBC #### [facility] [address] [place] [address] Dr. Benoit Villarreal B STREP CULTUREon 11-18-2022S. agalactiae Ag Ql (Unsp spec) Culture Observations: NEGATIVE FOR GROUP B STREPTOCOCCUS.NormalThe [facility] HospitalComment on above: Performed By: #### GBSCX #### [facility] [address] [place] [address] Dr. Benoit Oseguera AUTO DIFFon [id number] #0.0 103/ulNormal0.0-0.1The [facility] HospitalComment on above:Performed By: #### CBC #### [facility] [address] [place] [address] Dr. Benoit DiggsBasophils/100 WBC (Bld)0.3 %Normal0.2-2.0[facility] Comment on above:Performed By: #### CBC #### [facility] [address] [place] [address] Dr. Benoit Aleman #0.1 103/ulNormal0.0-0.7The [facility] HospitalComment on above: Performed By: #### CBC #### [facility] [address] [place] [address] Dr. Benoit Krausosinophils/100 WBC (Bld)2.0 %Normal0.9-7.0The [facility] Comment on above:Performed By: #### CBC #### [facility] [address] [place] [address] Dr. Benoit Krausrythrocyte distribution width (RBC) [Ratio]12.7 %Rwifrd79.0-15.0 [facility] Barber[facility] CampusComment on above:Performed By: #### CBC #### [facility] [address] [place] [address] Dr. Benoit DiggsHematocrit (Bld) [Volume fraction]30.6 %Critically low36.0-48.0 [facility] CampusComment on above:Performed By: #### CBC #### [facility] [address] [address] [address] Benoit DiggsHemoglobin (Bld) [Mass/Vol]10.1 g/dLCritically low12.0-16.0The [facility] HospitalComment on above:Performed By: #### CBC #### [facility] [address] [address] [address] Benoit Amado #0.03 10e3/ulNormal0.00-0.03The [facility] HospitalComment on above:Performed By: #### CBC #### [facility] [address] [address] [address] Benoit Amado %0.5 %Normal0.0-0.5The [facility] HospitalComment on above: Performed By: #### CBC #### [facility] [address] [address] [address] Benoit Dennis #0.6 103/ulCritically low1.2-3.8The [facility] Comment on above:Performed By: #### CBC #### [facility] [address] [address] [address] Benoit Beckmanhocytes/100 WBC (Bld)10.7 %Critically low20.5-60.0The [facility] Hospitalment on above:Performed By: #### CBC #### [facility] [address] [address] [address] Benoit FuentesUAL DIFF REQNONormalThe [facility] HospitalComment on above: Performed By: #### CBC #### [facility] [address] [address] [address] Benoit Lima (RBC) [Entitic mass]28.9 myEblqum68.7-34.0The [facility] HospitalComment on above:Performed By: #### CBC #### [facility] [address] [address] [address] Benoit Lima (RBC) [Mass/Vol]33.0 g/wTOtjqsd16.9-35.2The [facility] HospitalComment on above:Performed By: #### CBC #### [facility] [address] [address] [address] Benoit LimaV (RBC) [Entitic vol]87.4 mUOqyaxt31.0-99.0The [facility] HospitalComment on above:Performed By: #### CBC #### [facility] [address] [address] [address] Benoit Castellano #0.6 103/ulNormal0.3-0.8The [facility] HospitalComment on above:Performed By: #### CBC #### [facility] [address] [place] [address] Dr. Benoit Funezocytes/100 WBC (Bld)10.9 %Normal1.7-12.0The [facility] Comment on above:Performed By: #### CBC #### [facility] [address] [place] [address] Dr. Benoit Amaya #4.4 103/ulNormal1.4-6.5The [facility] HospitalComment on above:Performed By: #### CBC #### [facility] [address] [place] [address] Dr. Benoit Herrerautrophils/100 WBC (Bld)75.6 %Critically high43.0-75.0The [facility] HospitalComment on above:Performed By: #### CBC #### [facility] [address] [place] [address] Dr. Benoit Pearllet mean volume (Bld) [Entitic vol]10.9 fLNormal9.5-13.5The [facility] HospitalComment on above:Performed By: #### CBC #### [facility] [address] [place] [address] Dr. Benoit DiggsPLT191 103/xmXqxonl529-083Oki [facility] HospitalComment on above: Performed By: #### CBC #### [facility] [address] [place] [address] Dr. Benoit DiggsRBC3.50 106/ulCritically low4.20-5.40The [facility] Hospitalment on above:Performed By: #### CBC #### [facility] [address] [place] [address] Dr. Benoit DiggsWBC5.9 103/ulNormal4.0-11.0The [facility] Hospitalment on above: Performed By: #### CBC #### [facility] [address] [place] [address] Dr. Benoit Lancaster URINEon [id number] URINECulture Observations: HEAVY GROWTH OF MIXED GENITAL RIZWAN. NO POTENTIAL PATHOGENS SEEN.NormalSumma Health Barberton CampusComment on above:Performed By: #### URCX #### [facility] [address] [place] [address] Dr. Benoit Brower URINE PROFILEon 55-36-9182Eocvwbryx Ql (U)NegativeNormal NEGATIVESumma Health Barberton CampusComment on above:Performed By: #### HIV12 #### [facility] [address] [place] [address] Dr. Benoit DiggsClronak (U)CLEARNormalCLEARSumma Health Barberton CampusComment on above: Performed By: #### HIV12 #### [facility] [address] [place] [address] Dr. Benoit Loya (U)YELLOWNormalYELLOWMagruder Memorial Hospitalment on above: Performed By: #### HIV12 #### [facility] [address] [place] [address] Dr. Benoit Epperson micrscopic examination will be performed if indicated. NormalSumma Health Barberton CampusComment on above:Performed By: #### HIV12 #### [facility] [address] [place] [address] Dr. Benoit DiggsGlucose Ql (U)NegativeNormalNEGATIVESumma Health Barberton CampusComment on above:Performed By: #### HIV12 #### [facility] [address] [place] [address] Dr. Benoit DiggsHemoglobin Ql (U)NegativeNormalNEGATIVEKettering Health Springfield on above:Performed By: #### HIV12 #### [facility] [address] [place] [address] Dr. Benoit Vernon Ql (U)15 mg/dlAbnormalNEGATIVEThe [facility] on above:Performed By: #### HIV12 #### [facility] [address] [place] [address] Dr. Benoit DiggsLEUKOCYTESNegativeNormalNEGATIVEThe [facility] HospitalComment on above:Performed By: #### HIV12 #### [facility] [address] [place] [address] Dr. Benoit Armstrongtrvasyl Ql (U)NegativeNormalNEGATIVEThe [facility] HospitalComment on above:Performed By: #### HIV12 #### [facility] [address] [place] [address] Dr. Benoit DiggspH (U)6.5 [pH]Normal5-9The [facility] HospitalComment on above: Performed By: #### HIV12 #### [facility] [address] [place] [address] Dr. Benoit DiggsSPEC GRAVITY1.256Nwtlyr1.005-<=1.025The [facility] HospitalComment on above:Performed By: #### HIV12 #### [facility] [address] [place] [address] Dr. Benoit Wiseman PROTEINTRACENormalNEGATIVE/ TRACEThe [facility] HospitalComment on above:Performed By: #### HIV12 #### [facility] [address] [place] [address] Dr. Benoit Veras MICRO INDINDICATEDNormalThPaulding County HospitalComment on above: Performed By: #### HIV12 #### [facility] [address] [place] [address] Dr. Benoit Thompsoninogen Qn (U)1.0 {Nadege'U}/dLNormal0.2 - 1.0The [facility] HospitalComment on above:Performed By: #### HIV12 #### [facility] [address] [place] [address] Dr. Benoit COOL AGon [id number] [facility] Children's HospitalComment on above:Result Comment: Negative for Flu A protein angiten. Infection due to Flu A cannot be ruled out. FluA angiten in the sample may be below the detection limit of the test.Performed By: #### HIV12 #### [facility] [address] [place] [address] Dr. Benoit DiggsINFLUBNEGHSKIMBERLY [facility] HospitalComment on above: Result Comment: Negative for Flu B protein antigen. Infection due to Flu B cannot be ruled out. FluB antigen in the sample may be below the detection limit of the test.Performed By: #### HIV12 #### [facility] [address] [place] [address] Dr. Benoit Souza AGNegativeNormalNEGATIVE SEE COMMENTThe [facility] on above:Performed By: #### HIV12 #### [facility] [address] [place] [address] Dr. Benoit Gonzalez AGNegativeNormalNEGATIVE SEE COMMENTThe [facility] HospitalComment on above:Performed By: #### HIV12 #### [facility] [address] [place] [address] Dr. Benoit DiggsINTERNAL CONTROLSWithin Normal LimitsNormalWithin Normal Limits The [facility] HospitalComment on above:Performed By: #### HIV12 #### [facility] [address] [place] [address] Dr. Benoit DiggsPROF CHEM 8 (BAS METB)on 25-61-5227Hhprt gap [Moles/Vol]11.6 mmol/LNormalThe [facility] HospitalComment on above:Performed By: #### CBC #### [facility] [address] [place] [address] Dr. Benoit DiggsCalcium [Mass/Vol]8.2 mg/dLCritically low8.5-10.1The [facility] HospitalComment on above:Performed By: #### CBC #### [facility] [address] [place] [address] Dr. Benoit DiggsChloride [Moles/Vol]100 mmol/UPchvbh38-709CkpSumma Health Barberton Campus Comment on above:Performed By: #### CBC #### [facility] [address] [address] [address] Benoit DiggsCO2 [Moles/Vol]23.9 mmol/IAmdkyo93.0-32.0The [facility] Comment on above:Performed By: #### CBC #### [facility] [address] [address] [address] Benoit DiggsCreatinine [Mass/Vol]0.48 mg/dLCritically low0.55-1.02The [facility] HospitalComment on above:Performed By: #### CBC #### [facility] [address] [place] [address] Dr. Laboy ChangEGFR-AF KITTITIAN>60Normal>=60The [facility] HospitalComment on above:Performed By: #### CBC #### [facility] [address] [address] [address] Benoit KrausGFR-NON AF KITTITIAN>60Normal>=60The [facility] HospitalComment on above:Performed By: #### CBC #### [facility] [address] [place] [address] Dr. Benoit DiggsGlucose [Mass/Vol]94 mg/uQNoxpnt11-625Tka [facility] Comment on above:Performed By: #### CBC #### [facility] [address] [address] [address] Benoit DiggsPotassium [Moles/Vol]3.5 mmol/LNormal3.5-5.1The [facility] Comment on above:Performed By: #### CBC #### [facility] [address] [address] [address] Benoit DiggsSodium [Moles/Vol]132 mmol/LCritically jkn661-194Vmc [facility] HospitalComment on above:Performed By: #### CBC #### [facility] [address] [address] [address] Benoit DiggsUrea nitrogen [Mass/Vol]6.0 mg/dLCritically low7.0-18.0The [facility] HospitalComment on above:Performed By: #### CBC #### [facility] [address] [address] [address] Benoit DiggsUrea nitrogen/Creatinine [Mass ratio]12.5 mg/mgNormalThe [facility] HospitalComment on above:Performed By: #### CBC #### [facility] [address] [address] [address] Benoit DiggsRESPIRATORY PANEL PLUSon 59-72-2677VndexerbygXde detectedNormal NOT DETECTEDThe [facility] HospitalComment on above:Performed By: #### RSPLUS ####[facility] [address] [address]. Benoit Tierney ParapertusisNot detectedNormalNOT DETECTEDThe [facility] Comment on above:Performed By: #### RSPLUS ####[facility] [address] [place], [place] [address]Dr. Benoit Fuller. PertussisNot detected NormalNOT DETECTEDThe [facility] HospitalComment on above:Performed By: #### RSPLUS ####[facility] [address] [address]. Benoit DiggsChlamydia PneumoniaeNot detectedNormalNOT DETECTEDThe [facility] HospitalComment on above:Performed By: #### RSPLUS ####[facility] [address] [address]Dr. Benoit Diggs Coronavirus 229ENot detectedNormalNOT DETECTEDThe [facility] HospitalComment on above:Performed By: #### RSPLUS ####[facility] [address] [address]Dr. Benoit DiggsCoronavirus CTY6Cth detectedNormalNOT DETECTEDThe [facility] HospitalComment on above:Performed By: #### RSPLUS ####[facility] [address] [place], [place] [address]Dr. Benoit DiggsCoronavirus CX38Rpr detectedNormalNOT DETECTEDThe [facility] Comment on above:Performed By: #### RSPLUS ####[facility] [address] [place], [place] [address]Dr. Benoit DiggsCoronavirus DM23Qrg detected NormalNOT DETECTEDThe [facility] HospitalComment on above:Performed By: #### RSPLUS ####[facility] [address] [place], [place] [address]Dr. Benoit DiggsInfluenza A H1 2009DetectedAbnormalNOT DETECTEDThe [facility] HospitalComment on above:Performed By: #### RSPLUS ####[facility] [address] [place], [place] [address]Dr. Benoit DiggsInfluenza A H3 Not detectedNormalNOT DETECTEDThe [facility] HospitalComment on above:Performed By: #### RSPLUS ####[facility] [address] [place], [place] [address]Dr. Benoit DiggsInfluenza BNot detectedNormalNOT DETECTEDThe [facility] HospitalComment on above:Performed By: #### RSPLUS ####[facility] [address] [place], [place] [address]Dr. Benoit Diggs MetapneumovirusNot detectedNormalNOT DETECTEDThe [facility] HospitalComment on above:Performed By: #### RSPLUS ####[facility] In[address] [place], [place] [address]Dr. Benoit DiggsMycoplas. PneumoniaeNot detectedNormal NOT DETECTEDThe [facility] HospitalComment on above:Performed By: #### RSPLUS ####[facility] Onq[address] [place], [place] [address]Dr. Karylan ChangParainfluenza 1Not detectedNormalNOT DETECTEDThe [facility] Comment on above:Performed By: #### RSPLUS ####[facility] [address]rx[address]iel[address] [place], [place] [address]Dr. Yilan ChangParainfluenza 2Not detected NormalNOT DETECTEDThe [facility] HospitalComment on above:Performed By: #### RSPLUS ####[facility] [address] [place], [place] [address]Dr. Yilan ChangParainfluenza 3Not detectedNormalNOT DETECTEDThe [facility] HospitalComment on above:Performed By: #### RSPLUS ####[facility] [address] [place], [place] [address]Dr. Benoit DiggsParainfluenza 4Not detectedNormalNOT DETECTEDThe [facility] on above:Performed By: #### RSPLUS ####[facility] [address] [place], [place] [address]Dr. Benoit ChangRhino/EnterovirusNot detectedNormalNOT DETECTEDThe [facility] HospitalComup health system on above:Performed By: #### RSPLUS ####[facility] V[address] [place], [place] [address]Dr. Benoit DiggsJuanis Header 1RESPIRATORY PANEL: VIRUSESNormalThe [facility] HospitalComment on above: Performed By: #### RSPLUS ####[facility] [address] [place], [place] [address]Dr. Benoit Licea Header 2RESPIRATORY PANEL: BACTERIA NormalThe [facility] HospitalComup health system on above:Performed By: #### RSPLUS ####[facility] [address]ulifmbsk[address] [place], [place] [address]Dr. Benoit DiggsRSVNot detectedNormalNOT DETECTEDThe [facility] on above:Performed By: #### RSPLUS ####[facility] [address] [place], [place] [address]Dr. Benoit Farias-CoV-2 (COVID-19) RNA RANDOLPH+probe Ql (Unsp spec)Not detectedNormalNOT DETECTEDThe [facility] on above: Performed By: #### RSPLUS ####[facility] [address] [place], [place] [address]Dr. Benoit Vee Comment: When diagnostic testing is [...] for this test is supported by the [place] of Health and Human Service's declaration that [...] longer be used).Performed By: #### HIV12 #### [facility] [address] [place] [address] Dr. Benoit TURCIOSon [id number]E SEEN [facility] on above:Performed By: #### HIV12 #### [facility] [address] [place] [address] Dr. Benoit Loco identified Cx Nom (U)INDICATEDNoalThVeterans Health Administration on above:Performed By: #### HIV12 #### [facility] [address] [place] [address] Dr. Benoit Norton SEENNormalNONE SEENProMedica Bay Park Hospital on above:Performed By: #### HIV12 #### [facility] [address] [place] [address] Dr. Benoit Beckettystals LM Nom (Urine sed)NONE SEENNormalNONE SEENProMedica Bay [facility] Hospital on above:Performed By: #### HIV12 #### [facility] [address] [place] [address] Dr. Benoit Krauspithelial cells LM Ql (Urine sed)MODERATEAbnormalNONE SEEN /RARE The [facility] HospitalComup health system on above:Performed By: #### HIV12 #### [facility] [address] [place] [address] Dr. Benoit HessE SEENNormalNONE SEENProMedica Bay [facility] Hospital on above:Performed By: #### HIV12 #### [facility] [address] [place] [address] Dr. Benoit JensenQbtbkDCL7-8Jghdhx8-7Gxi Fort [facility] HospitalComment on above:Performed By: #### HIV12 #### [facility] [address] [address] [address] Benoit DiggsWBC5-10AbnormalNONE SEENThe [facility] HospitalComment on above: Performed By: #### HIV12 #### [facility] [address] [address] [address] Benoit Oseguera AUTO DIFFon 70-70-3032DGTN #0.1 103/ulNormal0.0-0.1The [facility] Hospitalment on above:Performed By: #### CBC #### [facility] [address] [place] [address] Dr. Benoit DiggsBasophils/100 WBC (Bld)0.5 %Normal0.2-2.0[facility] Comment on above:Performed By: #### CBC #### [facility] [address] [place] [address] Dr. Benoit Aleman #0.4 103/ulNormal0.0-0.7[facility] on above: Performed By: #### CBC #### [facility] [address] [place] [address] Dr. Benoit Krausosinophils/100 WBC (Bld)4.1 %Normal0.9-7.0[facility] Comment on above:Performed By: #### CBC #### [facility] [address] [place] [address] Dr. Benoit Krausrythrocyte distribution width (RBC) [Ratio]12.8 %Hqdvdt16.0-15.0 [facility] CampusComment on above:Performed By: #### CBC #### [facility] [address] [place] [address] Dr. Benoit DiggsHematocrit (Bld) [Volume fraction]31.4 %Critically low36.0-48.0 [facility] CampusComup health system on above:Performed By: #### CBC #### [facility] [address] [place] [address] Dr. Benoit DiggsHemoglobin (Bld) [Mass/Vol]10.5 g/dLCritically low12.0-16.0The [facility] HospitalComment on above:Performed By: #### CBC #### [facility] [address] [place] [address] Dr. Benoit Amado #0.05 10e3/ulCritically high0.00-0.03[facility] Comment on above:Performed By: #### CBC #### [facility] [address] [place] [address] Dr. Benoit Amado %0.5 %Normal0.0-0.5The [facility] HospitalComment on above: Performed By: #### CBC #### [facility] [address] [place] [address] Dr. Benoit Dennis #2.2 103/ulNormal1.2-3.8The [facility] HospitalComment on above:Performed By: #### CBC #### [facility] [address] [place] [address] Dr. Benoit Beckmanhocytes/100 WBC (Bld)21.9 %Xiebxl02.5-60.0The [facility] HospitalComment on above:Performed By: #### CBC #### [facility] [address] [place] [address] Dr. Benoit Real DIFF REQNONormalThe [facility] HospitalComment on above: Performed By: #### CBC #### [facility] [address] [place] [address] Dr. Benoit Fisher (RBC) [Entitic mass]29.7 vmNdifuq69.7-34.0The [facility] HospitalComment on above:Performed By: #### CBC #### [facility] [address] [place] [address] Dr. Benoit Lima (RBC) [Mass/Vol]33.4 g/cSAbpwdo34.9-35.2The [facility] HospitalComment on above:Performed By: #### CBC #### [facility] [address] [place] [address] Dr. Yilan ChangMCV (RBC) [Entitic vol]89.0 aQTjygns07.0-99.0The [facility] HospitalComment on above:Performed By: #### CBC #### [facility] [address] [place] [address] Dr. Benoit Castellano #0.6 103/ulNormal0.3-0.8The [facility] HospitalComment on above:Performed By: #### CBC #### [facility] [address] [place] [address] Dr. Benoit Funezocytes/100 WBC (Bld)5.7 %Normal1.7-12.0[facility] Comment on above:Performed By: #### CBC #### [facility] [address] [place] [address] Dr. Benoit Amaya #6.8 103/ulCritically high1.4-6.5[facility] Comment on above:Performed By: #### CBC #### [facility] [address] [place] [address] Dr. Benoit Herrerautrophils/100 WBC (Bld)67.3 %Grvtlu46.0-75.0The [facility] HospitalComment on above:Performed By: #### CBC #### [facility] [address] [place] [address] Dr. Benoit Pearllet mean volume (Bld) [Entitic vol]11.0 fLNormal9.5-13.5The [facility] HospitalComment on above:Performed By: #### CBC #### [facility] [address] [place] [address] Dr. Benoit RaderT215 103/afTlksuo579-454Mzj [facility] HospitalComment on above: Performed By: #### CBC #### [facility] [address] [place] [address] Dr. Benoit DiggsRBC3.53 106/ulCritically low4.20-5.40The [facility] HospitalComment on above:Performed By: #### CBC #### [facility] [address] [place] [address] Dr. Benoit DiggsWBC10.2 103/ulNormal4.0-11.0[facility] Barberton CampusComment on above:Performed By: #### CBC #### [facility] [address] [place] [address] Dr. Benoit DiggsGLUCOSE - 1HRon 66-11-4016Soihlly [Mass/Vol]116 mg/dLCritically ptxi45-369KbwSumma Health Barberton CampusComment on above:Performed By: #### GLU1HR ####[facility] [address] [address]Dr. Benoit Mcconnell ACOG PANEL 2: 21 to 29on 08-13-2022..NormalSumma Health Barberton Campus Comment on above:Performed By: #### CBC #### [facility] [address] [place] [address] Dr. Benoit Flores Gdln ACOG Ssfuyme39-89ElqzraJmqTwin City HospitalComment on above:Performed By: #### CBC #### [facility] [address] [place] [address] Dr. Benoit DiggsDIAGNOSIS:CommentPremier Health Miami Valley Hospital NorthComup health system on above: Result Comment: NEGATIVE FOR INTRAEPITHELIAL LESION OR MALIGNANCY.Performed By: #### CBC #### [facility] [address] [place] [address] Dr. Benoit DiggsMethodology:CommentNoTwin City HospitalComment on above: Result Comment: This liquid based ThinPrep(R) pap test was screened with the use of an image guided system.Performed By: #### CBC #### [facility] [address] [place] [address] Dr. Benoit DiggsNote:CommentMetroHealth Cleveland Heights Medical Center on above:Result Comment: The Pap smear is a screening test designed to aid in the detection of premalignant and malignant conditions of the uterine cervix. It is not a diagnostic procedure and should not be used as the sole means of detecting cervical cancer. Both false-positive and false-negative reports do occur. .Performed By: #### CBC #### [facility] [address] [place] [address] Dr. Benoit DiggsPerformed by:CommentMetroHealth Cleveland Heights Medical Center on above: Result Comment: Cynthia Smith, Wealth Management Advisor (ASCP)Performed By: #### CBC #### [facility] [address] [place] [address] Dr. Benoit DiggsReflex Criteria:CommentMetroHealth Cleveland Heights Medical Center on above:Result Comment: The HPV DNA reflex criteria were not met with this specimen result therefore, no HPV testing was performed. .Performed By: #### CBC #### [facility] [address] [place] [address] Dr. Benoit DiggsSpecimen adequacy:CommentMetroHealth Cleveland Heights Medical Center on above:Result Comment: Satisfactory for evaluation. No endocervical component is identified.Performed By: #### CBC #### [facility] [address] [place] [address] Dr. Benoit DiggsCHLAMYDIA/GONOCOCCUS RANDOLPH (SWAB/URINE/PAPon 35-86-6713Birvlmbrc trachomatis, NAANegativeNormalNegativeThe [facility] HospitalComup health system on above: Performed By: #### HIV12 #### [facility] [address] [place] [address] Dr. Benoit DiggsNeisseria gonorrhoeae, NAANegativeNormalNegativeProMedica Bay Park Hospital on above:Performed By: #### HIV12 #### [facility] [address] [place] [address] Dr. Benoit Hampton PREG INCOMPLETE ANATOMYon 21-07-5082BH PREG INCOMPLETE ANATOMY EXAMINATION: US PREG INCOMPLETE [...] Electronically authenticated by: MYLENE SULLIVAN Date: 2022-08-07 20:09[facility] PREG ANATOMY SINGLEon 97-38-0956KF PREG ANATOMY SINGLE EXAMINATION: US PREG ANATOMY [...] Electronically authenticated by: AISHWARYA MAGALLON Date: 2022-07-25 17:11NoTwin City HospitalAFP MATERNAL FOR SPINA BIFIDAon 22-86-1989JSS MoM0.55NoTwin City HospitalComment on above:Performed By: #### HIV12 #### [facility] [address] [place] [address] Dr. Benoit Chavarria Value20.0 ng/mLNMagruder Memorial HospitalComment on above: Performed By: #### HIV12 #### [facility] [address] [place] [address] Dr. Benoit Chavarria, Serum for Spina BifidaReSumma Health Akron Campus Comment on above:Performed By: #### HIV12 #### [facility] [address] [place] [address] Dr. Benoit PricementGerman HospitalComment on above:Result Comment: Caitlin Palafox, Ph.D., [facility] Director . References: Available Upon Request. . Multiples Of Median Cutoffs For AFP Elevations Caro 2.5 Black 2.8 IDD 2.0 Twins 4.5 Abbreviation Definitions IDD - Insulin Dep Diabetes OSBR - Open Spina Bifida Risk . For further inquiries contact [employer] [facility] at [phone]. . This test was developed and its performance characteristics determined by [employer]. It has not been cleared or approved by the Food and Drug Administration.Performed By: #### HIV12 #### [facility] [address] [place] [address] Dr. Benoit Rodriguez Age Collection Date18.1 weeksPremier Health Miami [facility] North Comment on above:Performed By: #### HIV12 #### [facility] [address] [place] [address] Dr. Benoit Gillis, Age Based onUltNationwide Children's HospitalComment on above:Result Comment: 13:1 on 06/06/2022 Recalculations are not recommended when gestational dating by LMP and ultrasound are within 10 days.Performed By: #### HIV12 #### [facility] [address] [place] [address] Dr. Benoit DiggsInsulin Dep DiabetesNoNMagruder Memorial HospitalComment on above:Performed By: #### HIV12 #### [facility] [address] [place] [address] Dr. Benoit DiggsInterpretationGerman HospitalComment on above: Result Comment: Interpretation: Screen [...] Customer Services to discuss available options. The [employer] recommends amniocentesis be offered to women age 35 and older.Performed By: #### HIV12 #### [facility] [address] [place] [address] Dr. Benoit Vornajoo Age at EDD[age] yrPremier Health Miami Valley Hospital NorthComment on above:Performed By: #### HIV12 #### [facility] [address] [place] [address] Dr. Benoit Scottltiplmally GestationNoNMagruder Memorial HospitalComment on above: Performed By: #### HIV12 #### [facility] [address] [place] [address] Dr. Benoit DiggsOSBR Risk 1 [id number] Health Miami Valley Hospital NorthComment on above: Performed By: #### HIV12 #### [facility] [address] [place] [address] Dr. Benoit Stockton.NormalSumma Health Barberton CampusComment on above:Performed By: #### HIV12 #### [facility] [address] [place] [address] Dr. Benoit MorrisCaucasianNMagruder Memorial HospitalComment on above: Performed By: #### HIV12 #### [facility] [address] [place] [address] Dr. Benoit DiggsTest Results:NegativePremier Health Miami Valley Hospital NorthComment on above: Performed By: #### HIV12 #### [facility] [address] [place] [address] Dr. Benoit Ramirez B SURFACE ANTIGEN SCREENon 31-42-4627SLsLi ScreenNegative NormalNegativeProMedica Bay Park Hospital on above:Performed By: #### HIV12 #### [facility] [address] [place] [address] Dr. Benoit Watt C VIRUS AB W/ REFLEX QUANTon 87-82-6399GLU AB<0.1Normal 0.0-0.9[facility] on above:Performed By: #### HIV12 #### [facility] [address] [place] [address] Dr. Benoit DiggsInterpretation:CommentNormalThe [facility] on above:Result Comment: Negative Not infected with HCV, unless recent infection is suspected or other evidence exists to indicate HCV infection.Performed By: #### HIV12 #### [facility] [address] [place] [address] Dr. Benoit DiggsHIV 1 AND 2 WITH REFLEXon 55-89-0833GTH Screen 4th Generation wRfxNon-ReactiveNormalNon ReactiveThe [facility] on above:Result Comment: HIV Negative HIV-1/HIV-2 antibodies and HIV-1 p24 antigen were NOT detected. There is no laboratory evidence of HIV infection.Performed By: #### HIV12 #### [place] [address] Dr[address] Benoit DiggsRPR QUANTon 48-82-8051Znkti Plasma Reagin, QuantNon-Reactive NormalNonRea<1:1[facility] on above:Result Comment: Please Note: This test does not meet current guidelines for screening and diagnosis of syphilis. This test is intended for following treatment response in patients being treated for syphilis infection. To screen for syphilis infection, a reflex cascade that includes both RPR and a treponema-specific assay should be utilized, such as Treponema pallidum (Syphilis) Screening Fountain (057280) or Rapid Plasma Reagin (RPR) Test With Reflex to Quantitative RPR and Confirmatory Treponema pallidum Antibodies (066871).Performed By: #### HIV12 #### [place] [address] Dr[address] Benoit DiggsRUBELLA AB IGGon 47-09-3995Cpylona Antibodies, IgG3.22 index NormalImmune >0.99[facility] on above:Result Comment: Non- immune <0.90 Equivocal 0.90 - 0.99 Immune >0.99Performed By: #### CBC #### [facility] [address] [address] [address] Benoit Hampton PREG <14 WKSon 35-12-9620IV PREG <14 WKSEXAMINATION: US PREG <14 WKS HISTORY: Irregular periods COMPARISON: No relevant comparison available. FINDINGS: GESTATIONAL SAC: Present and normal appearing. POLE: Present and normal appearing. YOLK SAC: Absent. CARDIAC: Present; 145 bpm UTERUS: Normal size and appearance. OVARIES: Right: Normal. Left: Normal. CERVIX: Unable to measure. CUL-DE-SAC: Normal. OTHER: None. AGE BY LMP: Unknown LMP CLEMENCAI BY LMP: AGE BY US CRL: 13 weeks, 1 day CLEMENCIA BY US CRL: 12/11/2022 IMPRESSION: 1. Single live intrauterine 13 weeks, 1 day. Electronically authenticated by: MYLENE SULLIVAN Date: 2022-06-06 22:25NoMary [facility] AUTO DIFFon 08-21-1920NSWN #0.1 103/ulNormal0.0-0.1[facility] Barberton CampusComment on above:Performed By: #### CBC #### [facility] [address] [place] [address] Dr. Benoit Taborsophils/100 WBC (Bld)0.6 %Normal0.2-2.0[facility] Comment on above:Performed By: #### CBC #### [facility] [address] [place] [address] Dr. Benoit Aleman #0.3 103/ulNormal0.0-0.7The [facility] HospitalComment on above: Performed By: #### CBC #### [facility] [address] [place] [address] Dr. Benoit Krausosinophils/100 WBC (Bld)4.1 %Normal0.9-7.0[facility] Comment on above:Performed By: #### CBC #### [facility] [address] [place] [address] Dr. Benoit Krausrythrocyte distribution width (RBC) [Ratio]13.9 %Sujrop14.0-15.0 The [facility] HospitalComment on above:Performed By: #### CBC #### [facility] [address] [place] [address] Dr. Benoit DiggsHematocrit (Bld) [Volume fraction]36.0 %Ikqdaf61.0-48.0The [facility] HospitalComment on above:Performed By: #### CBC #### [facility] [address] [place] [address] Dr. Benoit DiggsHemoglobin (Bld) [Mass/Vol]12.0 g/ySBvonxn43.0-16.0The [facility] HospitalComment on above:Performed By: #### CBC #### [facility] [address] [place] [address] Dr. Benoit Amado #0.03 10e3/ulNormal0.00-0.03The [facility] HospitalComment on above:Performed By: #### CBC #### [facility] [address] [place] [address] Dr. Benoit Amado %0.4 %Normal0.0-0.5The [facility] HospitalComment on above: Performed By: #### CBC #### [facility] [address] [place] [address] Dr. Benoit Dennis #2.7 103/ulNormal1.2-3.8The [facility] HospitalComment on above:Performed By: #### CBC #### [facility] [address] [place] [address] Dr. Benoit Pantojamphocytes/100 WBC (Bld)33.2 %Lzoqxy83.5-60.0The [facility] HospitalComment on above:Performed By: #### CBC #### [facility] [address] [place] [address] Dr. Benoit DiggsMANUAL DIFF REQNONormalThe [facility] HospitalComment on above: Performed By: #### CBC #### [facility] [address] [place] [address] Dr. Benoit Fisher (RBC) [Entitic mass]29.4 inAtkuhn87.7-34.0The [facility] HospitalComment on above:Performed By: #### CBC #### [facility] [address] [address] [address] Benoit LimaHC (RBC) [Mass/Vol]33.3 g/rVBdzfku17.9-35.2The [facility] HospitalComment on above:Performed By: #### CBC #### [facility] [address] [address] [address] Benoit LimaV (RBC) [Entitic vol]88.2 pUSgujaz08.0-99.0The [facility] HospitalComment on above:Performed By: #### CBC #### [facility] [address] [place] [address] Dr. Benoit Castellano #0.5 103/ulNormal0.3-0.8The [facility] HospitalComment on above:Performed By: #### CBC #### [facility] [address] [place] [address] Dr. Benoit Funezocytes/100 WBC (Bld)6.6 %Normal1.7-12.0[facility] Comment on above:Performed By: #### CBC #### [facility] [address] [address] [address] Benoit Amaya #4.4 103/ulNormal1.4-6.5The [facility] HospitalComment on above:Performed By: #### CBC #### [facility] [address] [place] [address] Dr. Benoit Herrerautrophils/100 WBC (Bld)55.1 %Umkdyk00.0-75.0The [facility] HospitalComment on above:Performed By: #### CBC #### [facility] [address] [address] [address] Benoit Pearllet mean volume (Bld) [Entitic vol]11.0 fLNormal9.5-13.5The [facility] HospitalComment on above:Performed By: #### CBC #### [facility] [address] [address] [address] Benoit DiggsPLT225 103/ydQpurdz296-640Hia Community Memorial Hospitalment on above: Performed By: #### CBC #### [facility] [address] [address] [address] Benoit DiggsRBC4.08 106/ulCritically low4.20-5.40The Community Memorial Hospitalment on above:Performed By: #### CBC #### [facility] [address] [address] [address] Benoit DiggsWBC8.1 103/ulNormal4.0-11.0The [facility] Hospitalment on above: Performed By: #### CBC #### [facility] [address] [address] [address] Benoit DiggsCULTURE URINEon 76-53-5517UZTMMXV URINECulture Observations: MODERATE GROWTH OF MIXED GENITAL RIZWAN. NO POTENTIAL PATHOGENS SEEN.NormalThe Community Memorial Hospitalment on above:Performed By: #### URCX ####[facility] [address] [address]Dr. Benoit Diggs GLYCOHEMOGLOBIN A1Con 33-66-2702DDS RECOMMENDATIONSEE BELOWNoTwin City HospitalComup health system on above:Result Comment: ADA RECOMMENDED LIMIT 4.0 - 6.0 ADA THERAPEUTIC TARGET < 7.0 ACTION SUGGESTED > 7.0Performed By: #### CBC #### [facility] [address] [place] [address] Dr. Benoit DiggsGlucose [Mass/Vol]105 mg/dLNoMagruder Hospital on above:Performed By: #### CBC #### [facility] [address] [place] [address] Dr. Benoit DiggsHbA1c (Bld) [Mass fraction]5.3 %Normal4.5-6.2[facility] on above:Performed By: #### CBC #### [facility] [address] [address] [address] Benoit Flowers BOX TEST PT SEND OUTon 04-69-7346BDJD TO REF LAB06/06/2022 NormalThe [facility] on above:Performed By: #### HIV12 #### [facility] [address] [address] [address] Benoit DiggsTYPE AND SCREENon 27-10-7840QMKP AND SCREENNegativePremier Health Miami Valley Hospital NorthComment on above:Performed By: #### TNS #### [facility] [address] [place] [address] Dr. Benoit DiggsPREG QUANT HCGon 77-05-2676PNM SIJPZ42546 mIU/mLNormalSumma Health Barberton CampusComment on above:Performed By: #### CBC #### [facility] [address] [address] [address] Benoit DiggsHCG RANGESEE BELOWPremier Health Miami Valley Hospital NorthComment on above: Result Comment: 5-50 0-1 WEEK 40-300 1-2 WEEKS 100-1,000 2-3 WEEKS 500-6,000 3-4 WEEKS 5,000-200,000 1-2 MONTHS 10,000-100,000 2-3 MONTHS 3,000-50,000 2ND TRIMESTER 1,000-50,000 3RD TRIMESTERPerformed By: #### CBC #### [facility] [address] [place] [address] Dr. Benoit Diggs Vital Signs Date TimeVital SignValuePerforming DjbhnbetnPxxolvsr79-31-4033 10:55-0500Body mass index (BMI) [Ratio]53.47 kg/m2Gia LYNN Work Phone: [facility] CenterBlqmaldjua86-35-0022 10:55-0500Body velufq412.37 kgGia LYNN Work Phone: [phone] CenterUwnlryzwem59-96-0388 10:55-0500Diastolic blood isfqkobf63 mm[Hg]Gia LYNN Work Phone: [phone] CenterDzrzpfxion72-79-5418 10:55-0500Systolic blood faytnfhj170 mm[Hg]Gia LYNN Work Phone: [facility] CenterVpkrdxexpx95-87-4063 13:55-0400Body mass index (BMI) [Ratio]53.12 kg/m0QmuncJefferson Howard DO Work Phone: [facility] CenterVfksivhehe43-82-8681 13:55-0400Body gxzdbo142.52 kgCorey Anita DO Work Phone: [phone] [place], [place] [address]Jrqnmudrzw58-82-9299 13:55-0400Diastolic blood euvvnjuh89 mm[Hg]Jefferson Anita DO Work Phone: [phone] [place], [place] [address]Fsxvmolbpf69-57-6563 13:55-0400Systolic blood mm[Hg]Jefferson Anita DO Work Phone: [phone] [place], [place] [address]Yjdwrhpyrd30-32-0964 14:07-0400Body mass index (BMI) [Ratio]54 kg/m2Amy Vamsi LYNN Work Phone: [phone] [place], [place] [address]Oscrwcaxzh04-39-4931 14:07-0400Body unqfwx449.64 kgAmy Vamsi LYNN Work Phone: [phone] [place], [place] [address]Gvftvdskne00-68-7794 14:07-0400Diastolic blood ycnsywgz85 mm[Hg]Gia LYNN Work Phone: [phone] [place], [place] [address]Jpiqpcrgmb70-55-0391 14:07-0400Systolic blood mm[Hg]Gia LYNN Work Phone: [phone] [place], [place] [address]Dhidnkmzce00-50-4542 13:59-0400Body mass index (BMI) [Ratio]53.17 kg/b1Gboyi Anita DO Work Phone: [phone] [place], [place] [address]Elraojktxn82-73-8577 13:59-0400Body .64 kgCorey Anita DO Work Phone: [phone] [place], [place] [address]Egoxpglzys58-84-9972 13:59-0400Diastolic blood xzuzcyki86 mm[Hg]Jefferson Anita DO Work Phone: [phone] [place] [address]-19-2025 13:59-0400Systolic blood mm[Hg]Jefferson Anita DO Work Phone: [phone] [place], [place] [address]Johagwyczd52-38-6520 14:05-0400Body mass index (BMI) [Ratio]53.51 kg/j5JyziwMediSys Health Network07-17-2025 14:05-0400Body weight 128.46 kgMediSys Health Network07-17-2025 14:05-0400Diastolic blood dqpxabrb03 mm[Hg][facility]07-17-2025 14:05-0400Systolic blood mm[Hg][facility]04-16-2025 10:44-0400Body mass index (BMI) [Ratio] 52.91 kg/j4Ghdfp Anita DO Work Phone: [phone] [place], [place] [address]Otgknckgsh94-28-2047 10:44-0400Body lsptek276.01 kgCorey Anita DO Work Phone: [phone] [place] [address]-16-2025 10:44-0400Diastolic blood gdqvmnxe66 mm[Hg]Jefferson Anita DO Work Phone: [phone] [place] [address]-16-2025 10:44-0400Systolic blood bclbowkf061 mm[Hg]Jefferson Anita DO Work Phone: [phone] [place], [place] [address]Hdlbutchgq68-09-1207 13:48-0400Body mass index (BMI) [Ratio]52.93 kg/e8Jmslp Anita DO Work Phone: [phone] [place], [place] [address]Mgbyvvqdwp49-88-4481 13:48-0400Body zsrrse435.06 kgCorey Anita DO Work Phone: [phone] [place], [place] [address]Gvqiavfyfy30-53-3519 13:48-0400Diastolic blood mm[Hg]Jefferson Anita DO Work Phone: [phone] [place] [address]-31-2025 13:48-0400Systolic blood jtamxxll837 mm[Hg]Jefferson Anita DO Work Phone: [phone] [place] [address]-05-2025 10:54-0500Body mass index (BMI) [Ratio]52.93 kg/m2Gia LYNN Work Phone: [phone] [place] [address]-05-2025 10:54-0500Body zbfeyc165.06 kgGia LYNN Work Phone: [phone]-[facility] [address]Uuojqlqsee90-32-0177 10:54-0500Diastolic blood fvepybbh79 mm[Hg]Gia LYNN Work Phone: [facility] CenterZksdpvayab59-23-1657 10:54-0500Systolic blood xxisytdy835 mm[Hg]Gia LYNN Work Phone: [facility] CenterHjgmhofvwy95-87-0265 12:56-0500Body mass index (BMI) [Ratio]53.09 kg/l8Zxphv Anita DO Work Phone: [phone] [place], [place] [address]Ugidwswqoi51-75-0470 12:56-0500Body cxzjio415.46 kgCorey Anita DO Work Phone: [phone]-[facility] CenterVfmzbbfwli67-26-9868 12:56-0500Diastolic blood uikljdqg75 mm[Hg]Jefferson Anita DO Work Phone: [phone] [place], [place] [address]Iantsgjscg78-33-4029 12:56-0500Systolic blood zhfkurax815 mm[Hg]Jefferson Anita DO Work Phone: [phone] [place], [place] [address]Qveqrkdexv57-45-8011 08:42-0500Body mass index (BMI) [Ratio]53.55 kg/x4Lpinw Anita DO Work Phone: [phone] [place], [place] [address]Ptfimlpywt52-88-4948 08:42-0500Body djmcaa314.55 kgCorey Anita DO Work Phone: [phone]-[facility] CenterKkukjrkcec39-96-0374 14:06-0500Diastolic blood yobfcnhs15 mm[Hg]Manuel Noel MD Work Phone: [facility]11-19-2024 14:06-0500 Heart rate77 /minManuel Noel MD Work Phone: [facility]11-19-2024 14:06-0500 Respiratory rate18 /minManuel Noel MD Work Phone: [facility]11-19-2024 14:06-0500 SaO2% (BldA) [Mass fraction]98 %Manuel Noel MD Work Phone: [facility]11-19-2024 14:06-0500 Systolic blood yizlcghh895 mm[Hg]Manuel oNel MD Work Phone: [phone] [place], [place] [address]75611-19-2024 12:39-0500 Body vwkqox349.94 cmManuel Noel MD Work Phone: [phone]11-19-2024 12:39-0500 Body kgManuel Noel MD Work Phone: [phone]11-05-2024 09:31-0500 Body rulbkh754.94 cmManuel Noel MD Work Phone: [phone]11-05-2024 09:31-0500 Body mass index (BMI) [Ratio]53.4 kg/m2Manuel Noel MD Work Phone: [phone]11-05-2024 09:31-0500 Body npudbv438.16 kgManuel Noel MD Work Phone: [phone]09-28-2022 02:06-0400 Body nbgurt670.6992 kgDR DOCTOR [facility] CenterComment on above: Performed By: #### HIV12 #### [facility] [address] [address] [address] Benoit Diggs Encounters Encounter DateEncounter TypeCare ProviderFacilityStart: 08-31-2025 End: 19-82-9591Iyfryr Epi LYNN Work Phone: [facility] [place] [facility]YNStart: 08-31-2025 End: 40-06-3916Pkgkxo Epi LYNN Work Phone: [facility] [place] [facility]BGYNStart: 08-31-2025 End: 54-65-0088Fsrzvq outpatient visit 15 minutesGia LYNN Work Phone: NOBD Emma OBGYNComment on above:Second trimester ([facility]); 23 weeks gestation of ([facility]); Diabetes mellitus screeningStart: 08-31-2025 End: 33-09-7091hlbzhyvtjsGON RAMLIBANNot AvailableStart: 32-14-8423Uvt-patient / Non-visit([place]) Bello Marks DO-[facility] Work Phone: Start: 08-29-2025 End: 78-21-7490ioyycfasznVona E Hay ([facility])-LAB Path Spec Emma HospStart: 08-29-2025 End: 18-69-0803Uietunqr ReferredBello Marks ([facility]) DO-LAB Path Spec [facility] Start: 08-23-2025 End: 88-87-4922xottoimwenMKPUOXKIParkwood Hospitaltart: 08-23-2025 End: 47-59-5829Zmhviiwgn department patient visitMARSamaritan Hospital HospitalStart: 08-10-2025 End: 49-21-7537mklccpnwivWNEOO FAZIONot AvailableStart: 08-02-2025 End: 53-47-6416Udsfud flowsheetCorey Anita DO Work Phone: [facility]BGYNStart: 08-02-2025 End: 04-63-8210Guxdzy flowsheetCorey Anita DO Work Phone: [facility] [place] [facility]BGYNStart: 08-02-2025 End: 03-52-3799Wtrslbptc Result EncounterCorey Anita DO Work Phone: NOWY External Department UnsolicitedStart: 08-02-2025 End: 61-13-4381Jldcfx outpatient visit 15 minutesCorey Anita DO Work Phone: [facility] Emma OBGYNComment on above:Second trimester ([facility]); 19 weeks gestation of ([facility]); Screening, , for anatomic survey ([facility]); LGSIL of cervix of undetermined significanceStart: 08-02-2025 End: 87-91-5083ldtydezeamCGKRR FAZIONot AvailableStart: 07-25-2025 End: 70-96-2031Adqvameoj Result EncounterAmy Vamsi PA Work Phone: no External Department UnsolicitedStart: 07-25-2025 End: 55-26-2041Jojoqjioi Result EncounterGia LYNN Work Phone: [facility]OM[facility] External Department UnsolicitedStart: 07-05-2025 End: 63-00-3817Dsopuy flowsheetGia LYNN Work Phone: NO Emma OBGYNStart: 07-05-2025 End: 40-84-0776Nzenlt flowsheetGia LYNN Work Phone: NO Emma OBGYNStart: 07-05-2025 End: 81-02-7932Oplzsbrj Result EncounterGia LYNN Work Phone: no External Department UnsolicitedStart: 07-05-2025 End: 75-56-1144Iguqyo outpatient visit 15 minutesAmy Vamsi LYNN Work Phone: NO Emma OBGYNComment on above:15 weeks gestation of ([facility]); Second trimester ([facility]); Exposure to STD; Vaginal discharge; NauseaStart: 07-05-2025 End: 13-74-2883xapmqvzlhzFSY RAMEYNot AvailableStart: 06-07-2025 End: 56-23-1757Mgxvsj flowsheetCorey Anita DO Work Phone: [facility] [place] [facility]BGYNStart: 06-07-2025 End: 34-65-4734Jsijky flowsheetCorey Anita DO Work Phone: NO Emma OBGYNStart: 06-07-2025 End: 75-79-9345Jozspnaog Result EncounterCorey Anita DO Work Phone: noms External Department UnsolicitedStart: 06-07-2025 End: 94-01-8241Iwsyuj outpatient visit 15 minutesCorey Anita DO Work Phone: noms Emma OBGYNComment on above:First trimester ([facility]); 11 weeks gestation of ([facility]); Right ovarian cyst; Nausea; PCOS (polycystic ovarian syndrome)Start: 06-07-2025 End: 34-04-8993bfuyzfewtiTIPOO FAZIONot AvailableStart: 05-24-2025 End: 61-82-9181Drjnwwfdg Result EncounterCorey Anita DO Work Phone: noms External Department UnsolicitedStart: 05-24-2025 End: 32-68-7537Bfgflxbqy Result EncounterCorey Anita DO Work Phone: noms External Department UnsolicitedStart: 05-05-2025 End: 44-11-9937Yuyyln outpatient visit 5 minutesFazio Nurse Noms Bcp ObNOMS BCP OBComment on above:GA: 6c2lOwfia: 05-05-2025 End: 50-11-9196wqkhkxzrpaDQCWW FAZIONot AvailableStart: 04-14-2025 End: 74-80-2004Rrgzpodga department patient visitSouthwest General Health Centertart: 02-09-2025 End: 04-18-5757Preczvosk Result EncounterGeneric External Data ProviderNOMS External Department UnsolicitedStart: 02-09-2025 End: 40-43-8397Uhhqqwxqd Result EncounterGeneric External Data ProviderNOMS External Department UnsolicitedStart: 02-02-2025 End: 61-80-9015Ptfqcn flowsheetCorey Anita DO Work Phone: [facility] BCP OBStart: 02-02-2025 End: 97-22-2395Oeohhc flowsheetCorey Anita DO Work Phone: [facility] BCP OBStart: 02-02-2025 End: 51-62-5161Bxrvmt outpatient visit 15 minutesCorey Anita DO Work Phone: [facility] BCP OBComment on above:Encounter to discuss test results; Elevated TSHStart: 02-02-2025 End: 23-35-7027gaykwaeatbCOYJN FAZIONot AvailableStart: 01-17-2025 End: 17-66-5725Cvbybtt encounter procedureCorey Anita DO Work Phone: noms BCP OBComment on above:LGSIL of cervix of undetermined significanceStart: 01-17-2025 End: 40-09-4296vqejesusojIlrh Naderer MD Work Phone: [facility] Work Phone: Start: 01-17-2025 End: 04-41-6115Krgqujzj Nicola Noel MD Work Phone: [facility]-LAB Path Spec Emma HospStart: 01-12-2025 End: 50-54-6214jtrpregkcmFLZLW FAZIONot AvailableStart: 01-03-2025 End: 39-49-3044ifukastbmcAldq Naderer MD Work Phone: [facility] Work Phone: Start: 01-03-2025 End: 80-14-7275Xokddesr Nicola Noel MD Work Phone: [facility]-LAB Path Spec [place] HospStart: 12-22-2024 End: 19-10-8391Leieex flowsheetGia LYNN Work Phone: noms BCP OBStart: 12-22-2024 End: 32-32-8574Ooxnzq flowsheetGia LYNN Work Phone: NOTN BCP OBStart: 12-22-2024 End: 54-78-6255Vbrzykjds Result EncounterGeneric External Data ProviderNOMS External Department UnsolicitedStart: 12-22-2024 End: 55-84-2002Lfesdcr encounter procedureGia LYNN Work Phone: noMS HealthcareStart: 12-22-2024 End: 30-30-0824Mwevovfp preventive med est patient 18-39 yrsGia LYNN Work Phone: noms BCP OBComment on above: control counseling (Primary Dx); Well woman exam with routine gynecological exam; Pelvic pain in femaleStart: 12-22-2024 End: 48-25-8216krxbakpvvlYIJ RAMEYNot AvailableStart: 12-02-2024 End: 96-59-1257Nmbeykn encounter procedureCorey Anita DO Work Phone: noms BCP OBComment on above:Encounter for removal of etonogestrel implantStart: 12-02-2024 End: 24-65-6631grqzwgmmriSPADX FAZIONot AvailableStart: 11-30-2024 End: 74-30-5730rlrqqvyivkIPUOK FAZIONot AvailableStart: 11-11-2024 End: 14-76-6091Cbztnz flowsheetCorey Anita DO Work Phone: noms BCP OBStart: 11-11-2024 End: 22-44-6226Ijzsnr flowsheetCorey Anita DO Work Phone: noms BCP OBStart: 11-11-2024 End: 45-41-0864Lopdnfzau Result EncounterGeneric External Data ProviderNOMS External Department UnsolicitedStart: 11-11-2024 End: 53-35-3247Uvbpqk outpatient visit 15 minutesCorey Anita DO Work Phone: noms [facility] OBComment on above:Right ovarian cyst; Nausea; PCOS (polycystic ovarian syndrome)Start: 11-11-2024 End: 16-27-6557nafvgwgpzsEZNWW FAZIONot AvailableStart: 26-94-5607Goj-patient / Non-visitManuel Noel MD Work Phone: [facility] Work Phone: Start: 09-07-2024 End: 85-24-1121Nmhcvqcmi to same day surgery centerManuel Noel MD Work Phone: [facility] Work Phone: Start: 09-07-2024 End: 01-10-4981tgoowpcgwiVsfo Naderer MD Work Phone: [facility] Work Phone: Start: 08-28-2024 End: 03-54-0609Mqokfcmrl department patient visitMARGinger ZANETroy Amherst HospitalStart: 08-24-2024 End: 91-73-5567Qnvkzog encounter procedureManuel Noel MD Work Phone: [facility] Work Phone: Start: 07-01-2024 End: 46-97-3468Ryyyjctbi Result EncounterGeneric External Data ProviderNOMS External Department UnsolicitedStart: 07-01-2024 End: 47-09-7963Sanxyblmx Result EncounterGeneric External Data ProviderNOMS External Department UnsolicitedStart: 94-40-0779Kiq-patient / Non-visitManuel Noel MD Work Phone: [facility] Work Phone: Start: 06-03-2024 End: 88-41-4371Ygiftyykl Result EncounterManuel Noel MD Work Phone: noms External Department UnsolicitedStart: 06-03-2024 End: 39-34-6073Ezychbwfu Result EncounterManuel Noel MD Work Phone: noms External Department UnsolicitedStart: 03-02-2024 Patient encounter procedureGeneric ProviderNOMS HealthcareStart: 12-23-2022 Encounter for general adult medical examination without abnormal findingsDR MANUEL [facility] Hospitaltart: 12-21-2022 End: 84-10-4832ksepgkwmxxEF MARC A NADEREacility:P1Nifmk: 12-21-2022 End: 27-49-8468Vvgqjtufc for general adult medical examination without abnormal findingsDR MANUEL MILTONacility:S3Upfou: 12-01-2022 End: 06-01-4326Dlzffjpbrd and management of inpatientDR MANUEL NOEL Facility:J6Htpcr: 11-29-2022 End: 24-90-3337osgowsdueaFM MANUEL MILTONacility:V4Uqdab: 83-44-0892Ospfdrbyif and management of inpatientDR MALIK GABRIEL .Facility:V2Wbzly: 11-18-2022 End: 79-12-6753yrhukldvzbPY MANUEL A NADERERFacility:D5Cdxbb: 09-22-2022 End: 93-52-6159fzzzdekjevZYOAS PARKERFacility:A0Xpflh: 09-09-2022 End: 14-47-6476xrzivylfokBB MANUEL A NADERERFacility:K0Kgtqu: 08-07-2022 End: 91-94-5732ngorvawybbBL MANUEL A NADERERFacility:Q1Zclat: 08-06-2022 End: 61-70-0927iylmrewcifQE MANUEL A NADERERFacility:W9Xrnzv: 07-25-2022 End: 74-71-3823pakalwjdmnTH JEFFERSON HOWARD .Facility:R6Xouyi: 07-13-2022 End: 99-78-8466mjdpfbeahiMD BELLO MARKS .Facility:M7Pydng: 07-11-2022 End: 65-90-6008tppjsiabndKF MANUEL A NADERERFacility:X6Jjwuw: 06-06-2022 End: 28-52-3363bjixslxfbyTW MANUEL A NADERERFacility:S0Xlwux: 04-16-2022 End: 86-27-5703igzjodisudRF DOCTOR MISCFacility:H1 Procedures DateProcedureProcedure DetailPerforming ClinicianStart: 48-99-8194Zddrr dip stick/tablet rgnt non-auto w/o micrscpAmy Vamsi LYNN Work Phone: Start: 58-53-6412ZJR,APTIMA HPV,AGE GDLNCorey Anita DO Work Phone: Start: 77-46-2874MDB, SERUM, OPEN SPINA BIFIDAAmy Vamsi LYNN Work Phone: Start: 02-07-8265Jmafn dip stick/tablet rgnt non-auto w/o micrscpAmy Vamsi LYNN Work Phone: Start: 69-14-1671JEFUGZRFL VAGINITIS (HTRX)Gia LYNN Work Phone: Start: 50-37-5191YZY THYROID STIM HORMONECorey Anita DO Work Phone: Start: 66-95-0922QHH TESTCorey Anita DO Work Phone: Start: 05-05-2025 End: 10-21-8710Itdpp dip stick/tablet rgnt non-auto w/o micrscpCorey Anita DO Work Phone: Start: 78-48-7120ZEO THYROID STIM HORMONECorey Anita DO Work Phone: Start: 08-58-4020Txvig dip stick/tablet rgnt non-auto w/o micrscpCorey Anita DO Work Phone: Start: 72-76-2148Sjkwr cultureMarginger Noel MD Work Phone: Start: 13-84-9229TQD,APTIMA HPV,AGE GDLNAmy Vamsi LYNN Work Phone: Start: 40-09-9307DRO INSERTION/REMOVAL OF CONTRACEPTIVE CAPSULECorey Anita DO Work Phone: Start: 08-77-8507GWG CBC WITH AUTO DIFFCorey Anita DO Work Phone: Start: 43-10-8353AjcepckayjdrtbzphritvbltrdVcqk Lana MATSON Work Phone: Start: 81-66-2208QVSJ TRICHOMONAS/WET PREPGeneric External Data ProviderStart: 48-42-7627NT LUMBAR SPINE 2 OR 3VMarc Lana MATSON Work Phone: Start: 80-04-7810Bnffxnxbeqo of Nonautologous Red Blood Cells into Peripheral Vein, Percutaneous ApproachDR DOCTOR MISCStart: 89-73-3460Bshjazcb of Products of Conception, External ApproachDR DOCTOR MISC Start: 64-69-0157Khsapolx of Amniotic Fluid, Therapeutic from Products of Conception, Via Natural or Artificial OpeningDR DOCTOR MISC Plan of Treatment DateCare ActivityDetailAuthorStart: 09-26-2025 End: 13-31-6459Aalkkmz encounter /08/2025 2:40 PM EST Routine [facility] [address] [place] [address] [address] [place], [id number] Jefferson Howard, DO [address] [place] [address] [place] [address] NOMMaribell [place] OBGYNStart: 08-31-2025 End: 52-06-8195YTD panel - Blood by Automated countCBC Lab Routine Diabetes mellitus screening Expected: 08/31/2025 (Approximate), Expires: 08/31/2026[facility] Work Phone: comment on above:Expected: 08/31/2025 (Approximate), Expires: 08/31/2026Start: 08-31-2025 End: 82-11-8995Xrezjzbiukc of glucose 1 hour after glucose challenge for glucose tolerance testGlucose tolerance, 1 hour Lab Routine Diabetes mellitus screening Expected: 08/31/2025 (Approximate), Expires: 08/31/2026NOMS HealthcareComment on above:Expected: 08/31/2025 (Approximate), Expires: 08/31/2026Start: 08-31-2025 End: 28-53-8820Dmvgmrt encounter /12/2025 1:40 PM EST Routine [facility] [place] [facility] [address] [place] [address] GIULIA [place], [id number] Jefferson Howard, DO [address] [place] [address] NOMMaribell [place] OBGYNStart: 08-31-2025 End: 41-86-3082Srqiolh encounter procedureNOMS Emma OBGYNComment on above: ArrivedStart: 48-12-6832Jnclnqdc identified in Urine by CultureUrine Culture [facility] Centertart: 36-37-8583Porqx cultureTrumbull Regional Medical Centertart: 08-10-2025 End: 02-43-4983Dpscnofxveus / ancillary services nwgjhsyupm86/ 11:00 AM EDT Ancillary Procedure [facility] [address] [place] [address] [place] [id number] [facility] Emma OBGYNStart: 08-02-2025 End: 43-73-9409MI for pregnancyUS OB 14+ weeks anatomy scan Imaging Routine Screening, , for anatomic survey ([facility]) Expected: 08/02/2025, Expires: 11/02/2025[facility] Work Phone: comment on above:Expected: 08/02/2025, Expires: 11/02/2025Start: 08-02-2025 End: 87-53-8264Qaqoqma encounter procedureNOMS BCP OBStart: 07-05-2025 End: 37-76-1338Ifuyt fetoprotein, maternalAlpha fetoprotein, maternal Lab Routine 15 weeks gestation of ([facility]) Second trimester ([facility]) Expected: 07/05/2025 (Approximate), Expires: 08/04/2025[facility] Comment on above:Expected: 07/05/2025 (Approximate), Expires: 08/04/2025Start: 07-05-2025 End: 81-85-1645Vlikwur encounter procedureNOMS Emma OBGYNComment on above: ArrivedStart: 90-11-7375EKMCI-19 Vaccine ( season)COVID-19 Vaccine ( season)NOM[facility] HealthcareStart: 40-60-1427Dmadovelq vaccinationNOMS HealthcareStart: 06-07-2025 End: 91-80-2639Kvpsrod encounter procedureNOMS BCP OBComment on above:Arrived Start: 05-05-2025 End: 80-73-0101XCM/RhABO/Rh Lab Routine Missed menses , unspecified gestational age ([facility]) Expected: 05/05/2025 (Approximate), Expires: 05/05/2026NOMS HealthcareComment on above:Expected: 05/05/2025 (Approximate), Expires: 05/05/2026Start: 05-05-2025 End: 61-84-8141Wrkeg type and Indirect antibody screen panel - BloodType and screen Lab Routine Missed menses , unspecified gestational age ([facility]) Expected: 05/05/2025 (Approximate), Expires: 05/05/2026[facility] Work Phone: comment on above:Expected: 05/05/2025 (Approximate), Expires: 05/05/2026Start: 05-05-2025 End: 00-95-3734Dncaf of abuse panel - Urine by Screen methodRapid drug screen, urine Lab Routine , unspecified gestational age ([facility]) Encounter for supervision of normal first in first trimester ([facility]) Expected: 05/05/2025 (Approximate), Expires: 05/05/2026NOMD HealthcareComment on above: Expected: 05/05/2025 (Approximate), Expires: 05/05/2026Start: 05-05-2025 End: 90-72-3956Lloymdhqtcr [Units/volume] in Serum or PlasmaTSH Lab Routine Thyroid disease Expected: 05/05/2025 (Approximate), Expires: 05/05/2026NOMD HealthcareComment on above:Expected: 05/05/2025 (Approximate), Expires: 05/05/2026Start: 02-02-2025 End: 62-66-6446Mwvtplm encounter procedureNOMS [facility] OBComment on above:Arrived Start: 01-17-2025 End: 10-93-4308EpnwszzlkcMgusjwznts Procedures Routine LGSIL of cervix of undetermined significance Expected: 01/17/2025 (Approximate), Expires: 01/17/2026[facility] Work Phone: comment on above:Expected: 01/17/2025 (Approximate), Expires: 01/17/2026Start: 01-12-2025 End: 86-88-5899Sowlxfmdlaae / ancillary services wxydwjgbcv07/26/2025 1:00 PM EDT Ancillary Procedure [facility] [address] [place] [address] NOMS BCP OBStart: 36-15-2984Rausjhiv identified in Urine by CultureUrine [facility] Hospitaltart: 43-72-1982Gorxx [facility] Ohiotart: 12-22-2024 End: 45-19-2879ZD PelvisUS Pelvis w/ TV Imaging Routine Pelvic pain in female Expected: 12/22/2024, Expires: 12/22/2025NOMS HealthcareComment on above: Expected: 12/22/2024, Expires: 12/22/2025Start: 12-22-2024 End: 33-75-4103Xuunwea encounter procedureNOMS BCP OBComment on above:Arrived Start: 12-02-2024 End: 37-55-1406Uemmrna encounter pdiwcmnrb74/13/2025 9:30 AM EST Procedure Visit [facility] OB [address] [place] [address] Jefferson Howard [facility] [place] [address] NOMS BCP OBStart: 11-30-2024 End: 94-93-2228Icbwopdweviq / ancillary services aiibvgiiik56/11/2025 2:00 PM EST Ancillary Procedure [facility] OB [address] [place] [address] NOMS BCP OBStart: 11-11-2024 End: 50-46-0471OMATXDST Lab Routine Right ovarian cyst PCOS (polycystic ovarian syndrome) Expected: 11/11/2024 (Approximate), Expires: 11/11/2025[facility] Comment on above:Expected: 11/11/2024 (Approximate), Expires: 11/11/2025Start: 11-11-2024 End: 93-36-4628HQ PelvisUS Pelvis w/ TV Imaging Routine Right ovarian cyst PCOS (polycystic ovarian syndrome) Expected: 11/11/2024, Expires: 11/11/2025NOMS HealthcareComment on above:Expected: 11/11/2024, Expires: 11/11/2025Start: 11-11-2024 End: 40-60-7333Dlzjsjr encounter uiadfnuix43/23/2025 8:40 AM EST Office Visit [facility] OB [address] [place] [address] Jefferson Howard DO [address] [place] [address] [facility] OBComment on above:ArrivedStart: 30-18-5217EctytrqbuTrumbull Regional Medical Centertart: 28-86-3660Ekjtzihhp vaccinationInfluenza Vaccine (#1)NOMS HealthcareStart: 19-35-5109Hqnxdoicq B Vaccines (1 of 3 - 19+ 3-dose series)Hepatitis B Vaccines (1 of 3 - 19+ 3-dose series)NOMS HealthcareStart: 26-14-9265Dyxflfapnutk Vaccine: Pediatrics (0 to 5 Years) and At-Risk Patients (6 to 64 Years) (1 of 2 - PCV)Pneumococcal Vaccine: Pediatrics (0 to 5 Years) and At-Risk Patients (6 to 64 Years) (1 of 2 - PCV) NOMS HealthcareStart: 33-37-0011GJM Vaccines (1 - 3-dose series)HPV Vaccines (1 - 3-dose series)NOMS HealthcareStart: 83-32-8826Yzcedkf of varicella vaccination Varicella Vaccines (1 of 2 - 13+ 2-dose series)NOMS HealthcareStart: 2007 DTaP/Tdap/Td Vaccines (1 - Tdap)DTaP/Tdap/Td Vaccines (1 - Tdap)[facility] Start: 43-31-7120EUV Vaccines (1 of 1 - Standard series)MMR Vaccines (1 of 1 - Standard series)NOM HealthcareBacteria identified in Urine by CultureUrine culture Microbiology Routine Missed menses Ordered: 05/05/2025[facility] Healthcare Comment on above:Ordered: 05/05/2025BC W Auto Differential panel - BloodCBC and differential Lab Routine Right ovarian cyst PCOS (polycystic ovarian syndrome) Ordered: 11/11/2024[facility] HealthcareComment on above:Ordered: 11/11/2024BC W Auto Differential panel - BloodCBC and differential Lab Routine Missed menses , unspecified gestational age ([facility]) Ordered: 05/05/2025[facility] HealthcareComment on above:Ordered: 05/05/2025HLAMYDIA TRACHOMATIS (GENITO/STI) CHLAMYDIA TRACHOMATIS (GENITO/STI) Lab Routine Exposure to STD Ordered: 07/05/2025[facility] HealthcareComment on above:Ordered: 07/05/2025ytology Cervical or vaginal smear or scraping studyPap Smear Pathology and Cytology Routine Well woman exam with routine gynecological exam Ordered: 12/22/2024[facility] Healthcare Work Phone: comment on above:Ordered: 12/22/2024ytology Cervical or vaginal smear or scraping studyPap Smear Pathology and Cytology Routine LGSIL of cervix of undetermined significance Ordered: 08/02/2025[facility] Healthcare Comment on above:Ordered: 08/02/20259203WHOB-lavdyccZMAJ-zymjurh Lab Routine Right ovarian cyst PCOS (polycystic ovarian syndrome) Ordered: 11/11/2024[facility] HealthcareComment on above:Ordered: 11/11/2024Follicle stimulating hormone Follicle stimulating hormone Lab Routine Right ovarian cyst PCOS (polycystic ovarian syndrome) Ordered: 11/11/2024[facility] HealthcareComment on above:Ordered: 11/11/2024hCG, quantitative, pregnancyhCG, quantitative, Lab Routine Right ovarian cyst PCOS (polycystic ovarian syndrome) Ordered: 11/11/2024[facility] Healthcare Work Phone: comment on above:Ordered: 11/11/2024Hemoglobin A1c/Hemoglobin.total in BloodHemoglobin A1c Lab Routine Right ovarian cyst PCOS (polycystic ovarian syndrome) Ordered: 11/11/2024[facility] HealthcareComment on above:Ordered: 11/11/2024Hemoglobin A1c/Hemoglobin.total in BloodHemoglobin A1c Lab Routine Missed menses , unspecified gestational age ([facility]) Ordered: 05/05/2025[facility] HealthcareComment on above:Ordered: 05/05/2025Hepatitis B virus surface Ag [Presence] in Serum or Plasma by ImmunoassayHepatitis B surface antigen Lab Routine Missed menses , unspecified gestational age ([facility]) Ordered: 05/05/2025[facility] HealthcareComment on above:Ordered: 05/05/2025Hepatitis C virus Ab [Presence] in Serum or Plasma by Immunoassay Hepatitis C antibody Lab Routine Missed menses , unspecified gestational age ([facility]-HCC) Ordered: 05/05/2025[facility] HealthcareComment on above: Ordered: 05/05/2025HIV-1/HIV-2 antigen/antibody combination immunoassayHIV-1 and HIV-2 antibodies Lab Routine Missed menses , unspecified gestational age ([facility]) Ordered: 05/05/2025[facility] HealthcareComment on above:Ordered: 05/05/2025Luteinizing hormoneLuteinizing hormone Lab Routine Right ovarian cyst PCOS (polycystic ovarian syndrome) Ordered: 11/11/2024[facility] HealthcareComment on above:Ordered: 11/11/2024Neisseria gonorrhoeae DNA [Presence] in Unspecified specimen by RANDOLPH with probe detectionNeisseria gonorrhea DNA probe, direct Lab Routine Exposure to STD Ordered: 07/05/2025[facility] HealthcareComment on above: Ordered: 07/05/2025Patient EducationEsophagitis Know your [facility] Work Phone: ProlactinProlactin Lab Routine Right ovarian cyst PCOS (polycystic ovarian syndrome) Ordered: 11/11/2024[facility] HealthcareComment on above:Ordered: 11/11/2024Reagin Ab [Presence] in Serum by RPRRPR Lab Routine Missed menses , unspecified gestational age ([facility]) Ordered: 05/05/2025[facility] HealthcareComment on above:Ordered: 05/05/2025Removal non- biodegradable drug delivery implantRemove drug implant device Procedures Routine Encounter for removal of etonogestrel implant Ordered: 12/02/2024[facility] Work Phone: comment on above:Ordered: 12/02/2024Rubella antibody, IgGRubella antibody, IgG Lab Routine Missed menses , unspecified gestational age ([facility]) Ordered: 05/05/2025[facility] HealthcareComment on above: Ordered: 05/05/2025SURESWAB(R) ADVANCED VAGINITIS PLUS, TMASURESWAB(R) ADVANCED VAGINITIS PLUS, TMA Pathology and Cytology Routine Vaginal discharge Ordered: 0 07/05/2025[facility] Healthcare Work Phone: comment on above:Ordered: 07/05/2025Thyrotropin [Units/volume] in Serum or PlasmaTSH Lab Routine Right ovarian cyst PCOS (polycystic ovarian syndrome) Ordered: 11/11/2024[facility] HealthcareComment on above:Ordered: 11/11/2024Thyrotropin [Units/volume] in Serum or PlasmaTSH Lab Routine Elevated TSH Ordered: 02/02/2025[facility] Work Phone: Comment on above:Ordered: 02/02/2025Thyroxine (T4) free [Mass/volume] in Serum or PlasmaT4, free Lab Routine Right ovarian cyst PCOS (polycystic ovarian syndrome) Ordered: 11/11/2024[facility] HealthcareComment on above:Ordered: 11/11/2024Thyroxine (T4) free [Mass/volume] in Serum or PlasmaT4, free Lab Routine Elevated TSH Ordered: 02/02/2025[facility] HealthcareComment on above:Ordered: 02/02/2025 Payers DatePayer CategoryPayerPoly ID2021Medicaid [id number] 2021Medicaid (Managed Care) [id number] 2.16.840.1.550016.3.57[id number] 2.16.840.1.531238.3.57[id number] 2.16.840.1.148423.3.57[id number] 2.16.840.1.820030.3.57[id number] 2.16.840.1.766012.3.57[id number] 2.16.840.1.846168.3.57[id number] 2.16.840.1.604605.3.57[id number] 2.16840.1.968061.3.57[id number] 2.16840.1.151860.3.57[id number] 2.16840.1.961458.3.57[id number] 2.840.1.049183.3.57[id number] 2.840.1.976856.3.579.[id number] 2.840.1.964430.3.57[id number] 2.840.1.062816.3.57[id number] 2.840.1.500178.3.579.[id number] 2.840.1.973012.3.57[id number] 2.840.1.068062.3.57[id number] 2.840.1.014421.3.57[id number] 2.840.1.216535.3.57[id number] 2.840.1.885713.3.57[id number] 2.840.1.968464.3.579.2.291956-52-2051Qmazlof13407110 2.840.1.932123.3.57[id number] 2.0.1.030463.3.57[id number] 2.840.1.692524.3.57[id number] 2.0.1.746610.3.579.2.530644-02-9434Riqyvdw7547979 2..1.959903.3.579.[id number] 2..1.771878.3.579.2.005310-62-5711Fadqucw4077793 2..1.476736.3.57[id number] 2..1.464991.3.57[id number] 2..1.435426.3.57[id number] 2..1.689397.3.579.2.529867-83-7300Txptqnl6675702 2..1.611925.3.579.2.556364-69-7649Nnhw-[id number] [id number] 2..1.616371.3.579.2.137Jagvtbo69463537 2.0.1.5[id number] 2.840.1.896776.3.579.2.531 [id number] 2.840.1.0[id number] 2.840.1.631172.3.579.2.531 Social History DateTypeDetailFacilityStart: 03-02-2024 End: 35-08-9843Lazowxs smoking status NHISNever smoked tobacco (finding) [facility]: 99-11-5439XfpNrqvehk sex unknown (finding)[facility]ertart: 04-01-8818Zuq Assigned At FemaleFirPremier Health [facility] Northtart: 05-02-2060Gqgnhcy use and exposure Smokeless tobacco non-userNOMS HealthcareStart: 03-02-2024 End: 10-73-6100Ngulqdb of Social functionNOMD HealthcareStart: 03-02-2024 End: 76-13-7521Dqmqno connection and isolation panelNOMD HealthcareStart: 98-07-0751Pbbabs Member of Clubs or OrganizationsNot on fileNOMD HealthcareHow often to you have a drink containing alcohol?2-4 times a monthNOMD HealthcareHow many standard drinks containing alcohol do you have on a typical day?1 or 2NOMS HealthcareHow often do you have 6 or more drinks on 1 occasion?NeverNOMS HealthcareIn the past 12 months, was there a time when you were not able to pay the mortgage or rent on time?NoNOMS HealthcareStart: 01-97-1833Xqx assigned at birthNot on fileOG[facility] HealthcareStart: 01-04-2025 End: 43-29-4991EswPajjpm (finding)[facility] Centertart: 34-00-1346DunyguomcXOCZ Healthcare Medical Equipment Procedure CodeEquipment CodeEquipment Original TextEquipment IdentifierDatesERCP (endoscopic retrograde cholangiopancreatography)STENT PANCREATIC ZIMMON 4FRFDA Start: 59-23-1824VBIT (endoscopic retrograde cholangiopancreatography)STENT PANCREATIC ZIMMON 4FRFDAStart: 64-55-1269MTKZ (endoscopic retrograde cholangiopancreatography)STENT PANCREATIC ZIMMON 4FRFDAStart: 78-34-0839RPZQ (endoscopic retrograde cholangiopancreatography)STENT PANCREATIC ZIMMON 4FRFDA Start: 11-20-2017 Goals DatePatient GoalDesired Activity/State Clinical Notes 08-24-2024 to 08-31-2025 Note Date & LsqdPrdlMntubzqg45-83-8814 History of Present illness Narrative* LEAH Curran [...] Morbid obesity due to excess calories ([facility]) 03/02/2024 Annual [...] was 03/08/2025. Assessment/Plan ICD-10-CM 1. Second trimester ([facility]) Z34.92 POCT urinalysis dipstick manually resulted 2. 23 weeks gestation of ([facility]) Z3A.23 3. Diabetes mellitus screening Z13.1 CBC Glucose tolerance, 1 hour CBC Glucose tolerance, 1 hour Assessment/Plan Return OB: Patient presents today for a routine obstetrics appointment. Patient is currently 23w2d . Patient states she is doing well but has complaints of being tired due to current . Pt was seen at [facility] on 08/29/2025 due to having painful abdominal pain and not feeling baby moving. [facility] evaluated the patient and was sent [...] a h-hr glucose order to schedule at [facility] and pt is advised not to eat or drink anything after midnight. PVU. We will increase keflex to tid for 7 days and pyridium. Patient will also be referred to [facility] for another anatomy scan due to body habitus per reading of recent scan Orders Placed This Encounter Procedures CBC Glucose tolerance, 1 hour POCT urinalysis dipstick manually resulted Follow Up: Patient is to return to office in 3 week for routine OB appointment. Documented by Janneth Paul MA on behalf of: LEAH Curran documented in this encounterKansas City VA Medical CenterIsovuppawg20-08-9689 History of Present illness Narrative* Shelleyjoel Dang, [...] 03/02/2024 Morbid obesity due to excess calories ([facility]) 03/02/2024 Annual physical exam 03/02/2024 Amenorrhea 04/28/2024 [...] nursing note reviewed. Exam conducted with a net finisher present. Vitals: Estimated body mass index is 53.12 kg/m as calculated from the following: Height as of 06/01/24: 5' 1 . Weight as of this encounter: 281 lb 1.9 oz. BP: 102/62 Patient's last menstrual period was 03/08/2025. ASSESSMENT & PLAN ICD-10-CM 1. Second trimester ([facility]) Z34.92 2. 19 weeks gestation of ([facility]) Z3A.19 CANCELED: POCT urinalysis dipstick manually resulted 3. Screening, , for anatomic survey ([facility]) Z36.89 OB 14+ weeks anatomy scan [...] Procedure Laterality Date GALLBLADDER documented in this encounterKansas City VA Medical CenterFlsfdhwlss53-18-8149 History of Present illness Narrative* LEAH Curran [...] 03/02/2024 Morbid obesity due to excess calories ([facility]) 03/02/2024 Annual physical exam 03/02/2024 Amenorrhea 04/28/2024 [...] nursing note reviewed. Exam conducted with a net finisher present. Vitals: Estimated body mass index is 54 kg/m as calculated from the following: Height as of 06/01/24: 5' 1 . Weight as of this encounter: 285 lb 12.8 oz. BP: 120/80 Patient's last menstrual period was 03/08/2025. ASSESSMENT & PLAN ICD-10-CM 1. 15 weeks gestation of ([facility]) Z3A.15 POCT urinalysis dipstick manually resulted Alpha fetoprotein, maternal Alpha fetoprotein, maternal 2. Second trimester ([facility]) Z34.92 POCT urinalysis dipstick manually [...] behalf of: LEAH Curran documented in this encounterKansas City VA Medical CenterWicvntvvnp11-33-4134 History of Present illness Narrative* Shelley Dang [...] Morbid obesity due to excess calories ([facility]) 03/02/2024 Annual [...] nursing note reviewed. Exam conducted with a net finisher present. Vitals: Estimated body mass index is 53.17 kg/m as calculated from the following: Height as of 06/01/24: 5' 1 . Weight as of this encounter: 281 lb 6.4 oz. BP: 108/68 Patient's last menstrual period was 03/08/2025. ASSESSMENT & PLAN ICD-10-CM 1. First trimester ([facility]) Z34.91 2. 11 weeks gestation of ([facility]) Z3A.11 3. Right ovarian cyst [...] or undercooked meat, and stay away from [facility]. Patient has been consulted regarding any further do's and don'ts of . Patient voiced understanding and all questions and concerns wereanswered. No orders of the defined types were placed in this encounter. Follow Up: Patient is to return in 4 weeks for routine OB appointment. Documented by Shelley Dang LPN on behalf of: Jefferson Howard DO documented in this encounterKansas City VA Medical CenterTqjiyzewxf16-98-5753 History of Present illness Narrative* Gayatri Correa [...] Morbid obesity due to excess calories ([facility]) 03/02/2024 Annual [...] dipstick manually resulted , unspecified gestational age ([facility]) - Type and screen; Future - ABO/Rh; Future - CBC and differential - Hemoglobin A1c - RPR - Rubella antibody, IgG - Hepatitis B surface antigen - Hepatitis C antibody - HIV-1 and HIV-2 antibodies - Rapid drug screen, urine; Future Encounter for supervision of normal first in first trimester ([facility]) - Rapid drug screen, urine; Future [...] or undercooked meat, and stay away from [facility]. Patient has also been advised to not change litter boxes and eat 6 small meals a day. Patient has been consulted regarding the do's and don'ts ofpregnancy. Patient was given labs and all questions and concerns were answered. Dixie and Thyroid given to patient to have [...] by: Gayatri Correa LPN documented in this encounterKansas City VA Medical CenterMdwvhewdxu74-61-4223 History of Present illness Narrative* Shelley Dang [...] depressive disorder, recurrent episode, mild (HCC) ([facility]) 03/02/2024 Gastroesophageal reflux disease without esophagitis 03/02/2024 Mild intermittent asthma without complication ([facility]) 03/02/2024 Allergic rhinitis due to pollen 03/02/2024 Morbid obesity due to excess calories ([facility]) 03/02/2024 Annual physical [...] nursing note reviewed. Exam conducted with a net finisher present. Vitals: Estimated body mass index is [...] of: Jefferson Howard DO documented in this encounterKansas City VA Medical CenterQmzktyhbyj30-43-7586 History of Present illness Narrative* Jefferson Howard [...] nursing note reviewed. Exam conducted with a net finisher present. Vitals: Estimated body mass index is [...] of: Jefferson Howard DO documented in this encounterKansas City VA Medical CenterXlkjxhfgzg50-34-7423 History of Present illness Narrative* LEAH Curran - 12/22/2024 11:00 AM EST Reason for Appointment: Patient ID: Jes Romero is a 24 y.o. female who presents for [facility] Visit Patient presents today for Annual [...] depressive disorder, recurrent episode, mild (HCC) ([facility]) 03/02/2024 Gastroesophageal reflux disease without esophagitis 03/02/2024 Mild intermittent asthma without complication ([facility]) 03/02/2024 Allergic rhinitis due to pollen 03/02/2024 Morbid obesity due to excess calories ([facility]) 03/02/2024 Annual physical [...] nursing note reviewed. Exam conducted with a net finisher present. Vitals: Estimated body mass index is [...] behalf of: LEAH Curran documented in this encounterKansas City VA Medical CenterKhistzdfqb68-70-4216 History of Present illness Narrative* Pilar Collins, [...] nursing note reviewed. Exam conducted with a net finisher present. Vitals: Estimated body mass index is [...] of: Jefferson Howard DO documented in this encounterKansas City VA Medical CenterZabbhbkckw49-89-0414 History of Present illness Narrative* Pilar Collins [...] depressive disorder, recurrent episode, mild ([facility]) ([facility]) 03/02/2024 Gastroesophageal reflux disease without esophagitis 03/02/2024 Mild intermittent asthma without complication ([facility]) 03/02/2024 Allergic rhinitis due to pollen 03/02/2024 Morbid obesity due to excess calories ([facility]) 03/02/2024 Annual physical [...] nursing note reviewed. Exam conducted with a net finisher present. Vitals: Estimated body mass index is [...] of: Jefferson Howard DO documented in this encounterKansas City VA Medical CenterXubytobsql33-78-9235 [place] [address] EGD Procedure Note Signed Patient: Jes Romero MR#: [id number] : 2000 Acct:[id number] Age/Sex: 23 / F Adm Date: 4 Loc: Room: Type: [facility] Attending Dr: Mir Silva MD Copies [...] ovary. She has not followed up with HOUSE FATHER. On omeprazole 20 mg daily. Pre-operative diagnosis: [...] she needs to continue to follow-up with HOUSE FATHER as it is unlikely related to GI etiology. -Resume normal diet -Follow up in the office 6 to 8 weeks with GI OFFICE REP -Follow up with PCP Following a period of recovery, patient was seen and given full explanation of the procedure. Patient tolerated the procedure well and will be discharged in satisfactory, stable condition. Mir Silva MD Documented By: Mir Silva MD 09/07/24 1325 Signed By: 09/07/24 1333 [facility]11-05-2024 Evaluation note* Diagnosis Onset Date Resolution Status Admit Date Dyspepsia acuteNovember 2023 9:29amNauseaacuteNovember 2023 9:29amChronic GERD chronicNovember 2023 9:29amConstipationchronicNov2023 9:29am [facility] Work Phone: Evaluation note* Diagnosis Gastroesophageal [...] female genital organs documented in this encounter [facility] HealthcareEvaluation noteNo assessment information availableBlanchard Valley Health [facility] Work Phone: Evaluation note* Diagnosis Gastroesophageal [...] of undetermined significance documented in this encounter [facility] HealthcareEvaluation note* Diagnosis Gastroesophageal [...] abnormal blood chemistry documented in this encounter [facility] HealthcareEvaluation note* Diagnosis Gastroesophageal [...] mild Morbid obesity due to excess calories ([facility]) Missed menses , unspecified gestational age ([facility]) Encounter for supervision of normal first in first trimester ([facility]) Right ovarian cyst Other and unspecified ovarian cyst Nausea Nausea alone PCOS (polycystic ovarian syndrome) Polycystic ovaries Gastroesophageal reflux disease, unspecified whether esophagitis present Thyroid disease Unspecified disorder of thyroid documented in this encounter [facility] HealthcareEvaluation note* Diagnosis Gastroesophageal reflux disease without esophagitis- Primary Esophageal reflux Amenorrhea Absence of menstruation Generalized abdominal pain Abdominal pain, generalized Morbid (severe) obesity due to excess calories ([facility]) Body mass index (BMI) 50.0-59.9, adult ([facility]) Right sided sciatica- Primary Sciatica Gastroesophageal reflux disease without esophagitis Esophageal reflux Major depressive disorder, recurrent episode, mild Major depressive disorder, recurrent episode, mild Morbid obesity due to excess calories ([facility]) First trimester ([facility]) state, incidental 11 weeks gestation of ([facility]) Right ovarian cyst Other and unspecified ovarian cyst Nausea Nausea alone PCOS (polycystic ovarian syndrome) Polycystic ovaries documented in this encounter [facility] HealthcareEvaluation note* Diagnosis Gastroesophageal reflux disease without esophagitis- Primary Esophageal reflux Amenorrhea Absence of menstruation Generalized abdominal pain Abdominal pain, generalized Morbid (severe) obesity due to excess calories ([facility]) Body mass index (BMI) 50.0-59.9, adult ([facility]) Right sided sciatica- Primary Sciatica Gastroesophageal reflux disease without esophagitis Esophageal reflux Major depressive disorder, recurrent episode, mild Major depressive disorder, recurrent episode, mild Morbid obesity due to excess calories ([facility]) 15 weeks gestation of ([facility]) Second trimester ([facility]) state, incidental Exposure to STD Vaginal discharge Leukorrhea, not specified as infective Nausea Nausea alone documented in this encounter [facility] HealthcareEvaluation note* Diagnosis Gastroesophageal reflux disease without esophagitis- Primary Esophageal reflux Amenorrhea Absence of menstruation Generalized abdominal pain Abdominal pain, generalized Morbid (severe) obesity due to excess calories ([facility]) Body mass index (BMI) 50.0-59.9, adult ([facility]) Right sided sciatica- Primary Sciatica Gastroesophageal reflux disease without esophagitis Esophageal reflux Major depressive disorder, recurrent episode, mild Morbid obesity due to excess calories ([facility]) Second trimester ([facility]) state, incidental 19 weeks gestation of ([facility]) Screening, , for anatomic survey ([facility]) Encounter for anatomic survey LGSIL of cervix of undetermined significance documented in this encounter [facility] HealthcareEvaluation note* Diagnosis Gastroesophageal reflux disease without esophagitis- Primary Esophageal reflux Amenorrhea Absence of menstruation Generalized abdominal pain Abdominal pain, generalized Morbid (severe) obesity due to excess calories ([facility]) Body mass index (BMI) 50.0-59.9, adult ([facility]) Right sided sciatica- Primary Sciatica Gastroesophageal reflux disease without esophagitis Esophageal reflux Major depressive disorder, recurrent episode, mild Morbid obesity due to excess calories ([facility]) Second trimester ([facility]) state, incidental 23 weeks gestation of ([facility]) Diabetes mellitus screening Screening for diabetes mellitus documented in this encounter [facility] HealthcareReason for referral (narrative)No reason for referral information availableSelect Medical [facility] Work Phone: Summary Purpose Family History [...] section and content) DATE CREATED AUTHOR 12/24/2022 [facility] DATE CREATED AUTHOR AUTHOR'S ORGANIZ ATION 08/25/2025 [facility] DATE CREATED AUTHOR AUTHOR'S ORGANIZ ATION 08/31/2025 [facility] DATE CREATED AUTHOR AUTHOR'S ORGANIZ ATION 09/01/2025 [facility] EPIC Care Teams (unrecognized [...] Manuel Noel MD [address] [place] [address] [facility] - [facility]03/02/24Team MemberRelationshipSpecialtyStart DateEnd Date Manuel Noel MD [address] [place] [address] PCP - [facility]03/02/24 Manuel Noel MD [address] [place] [address] [facility]07/20/24Team MemberRelationshipSpecialtyStart DateEnd Date Manuel Noel MD [address] [place] [address] [facility]03/02/24 Manuel Noel MD [address] [place] [address] [facility]07/20/24Team MemberRelationshipSpecialtyStart DateEnd Date Manuel Noel MD [address] [place] [address] [facility]03/02/24 Manuel Noel MD [address] [place] [address] [facility]07/20/24Team MemberRelationshipSpecialtyStart DateEnd Date Manuel Noel MD [address] [place] [address] [facility]03/02/24 Manuel Noel MD [address] [place] [address] [facility]07/20/24Team MemberRelationshipSpecialtyStart DateEnd Date Manuel Noel MD [address] [place] [address] PCP - [facility]03/02/24 Manuel Noel MD [address] [place] [address] [facility]07/20/24Team MemberRelationshipSpecialtyStart DateEnd Date Manuel Noel MD [address] [place] [address] [facility]03/02/24 Manuel Noel MD [address] [place] [address] [facility]07/20/24Team MemberRelationshipSpecialtyStart DateEnd Date Manuel Noel MD [address] [place] [address] [facility] - [facility]03/02/24 Manuel Noel MD [address] [place] [address] [facility]07/20/24Team MemberRelationshipSpecialtyStart DateEnd Date Manuel Noel MD [address] [place] [address] [facility] - [facility]03/02/24 Manuel Noel MD [address] [place] [phone] [facility]07/20/24 Team Status: Inactive Member Role Status Dates Jefferson Howard DO Attending Provider Active Start : January 17, 2025 End: January 17, 2025Team MemberRelationshipSpecialtyStart DateEnd Date Manuel Noel MD [address] [place] [phone] [facility]03/02/24 Manuel Noel MD [address] [place] [phone] [facility]07/20/24Team MemberRelationshipSpecialtyStart DateEnd Date Manuel Noel MD [facility]03/02/24 Manuel Noel MD [address] [place] [phone] [facility]07/20/24Team MemberRelationshipSpecialtyStart DateEnd Date Manuel Noel MD [facility]03/02/24 Manuel Noel MD [address] [place] [phone] [facility]07/20/24Team MemberRelationshipSpecialtyStart DateEnd Date Manuel Noel MD [facility]03/02/24 Manuel Noel MD [address] [place] [phone] [facility]07/20/24Team MemberRelationshipSpecialtyStart DateEnd Date Manuel Noel MD [facility]03/02/24 Manuel Noel MD [address] [place] [phone] [facility]07/20/24Team MemberRelationshipSpecialtyStart DateEnd Date Manuel Noel MD [facility]03/02/24 Manuel Noel MD [address] [place] [phone] [facility]07/20/24 Team Status: Inactive Member Role/Relationship Status Dates Bello Marks ([facility]) , Attending Provider Active Start: August 29, 2025 End: August 29, 2025 Team Status: Active Member Role/Relationship Status Dates Bello Marks DO Attending Provider Active Start: August 29, 2025 Team MemberRelationshipSpecialtyStart DateEnd Date Manuel Noel MD [facility]03/02/24 Manuel Noel MD [address] [place] [phone] [facility] - [facility]07/20/24 Reason for Visit (unrecogniz ed section [...] BE BASED ON THE PRIMARY CLINICAL RECORDS. [employer] provides no warranty or guarantee of the accuracy or completeness of information in this document.
--- OUTSIDE RECORDS SUMMARY | 2025-10-17 00:17 | XMS_ITS | Clinical Summary ---
Author Organization [employer] tem Address [id number] [address] [place] [address] Care Team Providers Care Reclamation Kettle Tender Name Role Phone Manuel Schwartz MD Primary Care Provider [phone] Allergies Active AllergyReactionsCriticalityNoted DateCommentsPenicillinsHivesRashLow 2000 Other Reaction(s): Unknown Reaction Medications MedicationSigDispense QuantityRefillsLast FilledStart DateEnd DateStatus omeprazole (PriLOSEC) 20 mg capsule Take 1 capsule (20 mg total) by mouth in the morning.Active acetaminophen (TYLENOL EXTRA STRENGTH) 500 mg tablet Take 2 tablets (1,000 mg total) by mouth every 6 (six) hours as needed for pain. 30 tablet 02/28/2024ctive norethindrone-e.estradioL-iron (ESTROSTEP FE) 1-20(5)/1-30(7) /1mg-35mcg (9) tablet Take 1 tablet by mouth in the morning.09/22/2025Discontinued(Therapy completed) ibuprofen (ADVIL,MOTRIN) 800 mg tablet Take 1 tablet (800 mg total) by mouth every 8 (eight) hours as needed for pain. 30 tablet /01/2025Discontinued(Therapy completed) famotidine (PEPCID) 20 mg tablet Take 1 tablet (20 mg total) by mouth in the morning and 1 tablet (20 mg total) before bedtime. 20 tablet /01/2025Discontinued(Therapy completed) dicyclomine (BENTYL) 20 mg tablet Take 1 tablet (20 mg total) by mouth in the morning and 1 tablet (20 mg total) before bedtime. 20 tablet Discontinued ondansetron ODT (ZOFRAN ODT) 4 mg disintegrating tablet Dissolve 1 tablet (4 mg total) on tongue every 8 (eight) hours as needed for nausea for up to 10 doses. 10 tablet Discontinued promethazine (PHENERGAN) 12.5 mg tablet Take 1 tablet (12.5 mg total) by mouth every 6 (six) hours as needed for nausea or vomiting.09/22/2025Discontinued Encounters DateTypeDepartmentCare JfopLxtjdcyvsma45/05/2025Orders Only [facility] Certified Nurse Floor Runner - [place] [address] [facility] [address] [place] [address] External, Scanning Provider 09/22/2025 10:50 AM ESTTelemedicine Maternal Medicine [place] [address] [facility] [address] [place] [phone] Andi Weller MD Polyhydramnios affecting (Primary Dx); Severe obesity due to excess calories affecting , antepartum ([facility]); 26 weeks gestation of ; macrosomia affecting management of mother, gcwydjehrg79/04/2025Travel 09/21/2025Telephone Maternal- Medicine at [place] [address] [place] [address] Erica Cardoso RN 09/05/2025bstract Maternal- Medicine at [place] [address] [place] [address] External, Scanning Provider 08/23/2025 7:25 PM EST - 08/23/2025 9:27 PM ESTHospital Encounter [facility] - [facility] [address] [place] [address] Ny Lewis, PCTS-CNM Discharge Disposition: Home08/23/20257262Tkwzfw23/04/2025 - 08/23/2025 7:18 PM EST Emergency [facility] - Emergency [address] [place] [phone] Discharge Disposition: ED Dismiss - Never Arrivedfrom Last 3 Months Family History Medical HistoryRelationNameCommentsDiabetesFatherDiabetesMaternal Aunt HypertensionMotherDiabetesPaternal GrandmotherRelationNameStatusCommentsFather AliveMaternal AuntOtherMotherAlivePaternal Grandmother Social History Tobacco UseTypesPacks/DayYears UsedDateSmoking Tobacco: NeverSmokeless [...] as a part of a household?No 08/23/2025hildcareAnswerDate ThdlsdelCwxcdntetTvuiiju04/11/2019EmploymentAnswer Date SbtrilzxGnjbezeezqAooxxkm50/11/2019Hunger ScreeningAnswerDate Recorded Within the past 12 months we worried whether our food would run out before we got money to buy more.Never True09/22/2025Within the past 12 months the food we bought just didn't last and we didn't have money to get more.Never True 09/22/2025Purpose - LifeAnswerDate RecordedPurpose and direction in lifeUnknown 1Estimated Date of NkqsxfatMjjwpmfgOkz31/09/2026Based on UltrasoundSex and Gender InformationValueDate RecordedSex Assigned at BirthNot on fileLegal UdzRhoosg19/04/2015 6:13 PM EDTGender IdentityNot on fileSexual OrientationNot on file Last Filed Vital Signs Vital SignReadingTime TakenCommentsBlood Yzbgjfor720/80111/23/2024 10:53 AM EST Uuqdz57166 7:34 PM JKONfdfwxtcdde23.7 ??C (98 ??F)08/23/2025 7:34 PM EST Respiratory Qvvv840810/23/2024 7:34 PM ESTOxygen Ktnnjcaqzs47%04/14/2025 2:13 AM EDTInhaled Oxygen Concentration--Xopasg510.7 kg (283 lb 12.8 oz)09/22/2025 10:53 AM PUZMqwpwp863 cm (5' 1.81 )09/22/2025 10:53 AM ESTBody Mass Index52.23 09/22/2025 10:53 AM EST Plan of Treatment DateTypeDepartmentCare Team (Latest Contact Info)Hlctdrvrgmd41/13/2026 2:15 PM ESTAppointment [facility] - Ultrasound [address] [place] [address] Health MaintenanceDue DateLast DoneCommentsDepression Dsggkzemc51/11/2013dult BMI Follow Up Plan2018Pap Smear2Chlamydia Bkkouurio79/12/2023 2DTaP,Tdap and Td Vaccines (7 - Td or Tdap)/10/2012, 10/31/2004, 02/02/2002, Additional history existsInfluenza Jlnspdy6006/20/2025 08/02/2016RSV ( or age 60+ yrs) (1 - Risk 1-dose series) 6Adult BMI Opqoumccj19/04/70409611/23/2024Tobacco Scakbtted23/04/2026 09/22/2025 Medical Devices Not on file Procedures Procedure NamePriorityDate/TimeAssociated DiagnosisCommentsUS [facility] COMPREHENSIVE ANATOMIC SMPFTELxbmism66/04/2025 10:59 AM EST Screening, , for anatomic survey EXTRA TUBES SST VBUHmtnmkc21/04/2025 8:24 PM EST EXTRA KWESOZeeckoy18/04/2025 8:24 PM EST BASIC METABOLIC MCYAHDXJC92/04/2025 8:20 PM EST CBC (NO DIFF)STAT110/23/2024 8:20 PM EST MEHBKWVFQLLGAT56/04/2025 8:03 PM EST CHLAMYDIA/GC BY PCR PAYAM PEHTCSWD93/12/2022 7:40 AM EST from Last 3 Months or Most Recently Relevant to Health Maintenance Results * [facility] COMPREHENSIVE ANATOMIC SURVEY (09/22/2025 10:59 AM EST)Anatomical RegionLateralityModalityOB-GYNUltrasoundSpecimen (Source)Anatomical Location / LateralityCollection Method / VolumeCollection TimeReceived Time09/22/2025 9:53 AM EST Narrative 09/22/2025 11:11 AM EST NAME: ??HEATHER HAMMOND : 2000 SEX: F Accession Number: [id number] ORDERING PHYSICIAN: ANDI WELLER REFERRING PHYSICIAN: ZULLY MACEDO Coding Procedures ? 32877: Ultrasound, uterus, real time with image documentation, and maternal evaluation ? plus detailed anatomic examination, transabdominal approach;single or first gestation ? 71078: OB Transvaginal Indication Screening for Anatomic Survey , Screening for cervical length , Obesity in , Depression, Polyhydramnios. History OB History ? 3. Para 2 ? T3P7A2F0 Current Cell free DNA ?Low Risk analysis Maternal Assessment Physical Exam ??Height 155 cm, 5 ft 1 in. Weight 128 kg, 283 lb. Initial weight 128 kg, 283 lb. BMI53.47 kg/m??. Initial ? BMI 53.47 kg/m??. Weight gain 0 kg, 0 lb Method Transabdominal and transvaginal ultrasound examination. View: Suboptimal view: limited by maternal body habitus. Images of optimal diagnostic quality could not be obtained. Medical Balance Bridge Assembler Balance Bridge Assembler declined Caro . Number of fetuses: 1 Dating LMP on: ?03/08/2025 GA by LMP ?28 w + 2 d CLEMENCIA by LMP: ?12/13/2025 Previous Ultrasound on: ?05/05/2025 Type of prior assessment: ?GA GA at prior assessment date ?6 w + 3 d GA by previous U/S ? 26 w + 3 d CLEMENCIA by previous Ultrasound: ?12/26/2025 Ultrasound examination on: ? 09/22/2025 GA by U/S based upon: ??AC, BPD, Femur, HC GA by U/S ?28 w + 5 d CLEMENCIA by U/S: ?12/10/2025 Assigned: ?based on ultrasound (GA), selected on 09/22/2025 Assigned GA (weeks days) ? 26 w + 3 d Assigned CLEMENCIA: ??12/26/2025 General Evaluation Cardiac activity Present. FHR 131 bpm. Presentation: cephalic Placenta: Placental site: right lateral, away from cervical os Umbilical cord: Cord vessels: 3 vessel cord. Insertion site: normal insertion Amniotic fluid: Amount of AF: polyhydramnios. MVP 9.4 cm Biometry Standard BPD ?68.9 mm 27w 5d 81% Hadlock OFD ?90.5 mm 29w 1d 98% Alfonso HC ? 254.3 mm ?27w 4d 65% Hadlock Cerebellum tr ??30.1 mm 26w 1d 52% Hill AC 254.4 mm 29w 4d >99% Hadlock Femur ??56.8 mm 29w 6d 99% Hadlock Humerus 52.1 mm 30w 2d >99% Alfonso HC / AC ?1.00 EFW 1,376 g >99% Hadlock EFW (lb) ? 3 lb EFW (oz) ? 1 oz EFW by: ?Hadlock (GJE-UJ-SK-FL) Extended Tibia 49.0 mm 29w 3d >99% Alfonso Separator Operator ? 5.2 mm CM ? 7.5 mm ?? 80% Nicolaides Inner IOD ?18.1 mm Outer IOD ?50.2 mm Head / Face / Neck Cephalic index 0.76 ? 23% Nicolaides Nasal bone: ?present Extremities / Bony Struc FL / BPD ? 0.82 FL / HC ?0.22 FL / AC ?0.22 Other Structures FHR ?131 bpm Anatomy The following structures appear normal: Head/Neck: Cranium. Lateral ventricles. Choroid plexus. Midline falx. Cavum septi pellucidi. Cerebellum. Cisterna ? magna. Parenchyma. Vermis. ? Neck. Face: Lips. Profile. Nose. Nasal bone. Orbits. Heart/Thorax: Situs. Cardiac position. Cardiac axis. Cardiac size. Cardiac rhythm. Abdomen: Stomach. Kidneys. Bladder. Genitals. Extremities/Skeleton: Right upper arm. Right forearm. Right upper leg. Right lower leg. Skeleton The following structures could not be adequately visualized: Face ?? Maxilla. Heart / Thorax 4-chamber view. LVOT view. 3-vessel view. Ductal arch view. Interventricular septum. ? Diaphragm. Spine: Cervical spine. Lumbar spine. Sacral spine. Extremities / ??Right hand. Left upper arm. Left forearm. Left hand. Skeleton The following structures could not be examined: Face ?? Mandible. Heart / Thorax RVOT view. 8-ugcfve-pemjicl view. Aortic arch view. Bicaval view. Great vessels. ? Right lung. Left lung. Abdomen ?Abdom. wall. Cord insertion. Right renal artery. Left renal artery. Spine ??Thoracic spine. Extremities / ??Right foot. Left upper leg. Left lower leg. Left foot. Skeleton Maternal Structures Uterus Visualized Cervix Visualized ? Approach - Transvaginal: Cervical length 3.87 cm Right Ovary ?Not visualized Left Ovary ? Not visualized Cul de Sac ? Visualized. No free fluid visualized Impression Single live intrauterine , 26w 3d with an CLEMENCIA of 12/26/2025. Macrosomic growth. EFW measures at the >99%, AC measures at the >99%. Transvaginal cervical length measures 3.87 cm. Amniotic fluid MVP measures 9.4 cm, consistent with mild polyhydramnios. Recommendations Please see [facility] documentation from today. The patient is scheduled in four to six week(s) to complete anatomic survey. Subsequent follow up or other follow up as clinically determined by primary OB provider unless otherwise specified by [facility]. Results forwarded to ordering provider so they can follow up with the patient as necessary. Procedure Note Andi Weller MD - 09/22/2025 NAME: HEATHER HAMMOND : 2000 SEX: F Accession Number: [id number] ORDERING PHYSICIAN: ANDI WELLER REFERRING PHYSICIAN: ZULLY MACEDO Coding Procedures 42652: Ultrasound, uterus, real time with image documentation, and maternal evaluation plus detailed anatomic examination, transabdominalapproach;single or first gestation 59944: OB Transvaginal Indication Screening for Anatomic Survey , Screening for cervical length , Obesity in , Depression, Polyhydramnios. History OB History 3. Para 2 P1K3I1E7 Current Cell free DNA Low Risk analysis Maternal Assessment Physical Exam Height 155 cm, 5 ft 1 in. Weight 128 kg, 283 lb. Initialweight 128 kg, 283 lb. BMI 53.47 kg/m??. Initial BMI 53.47 kg/m??. Weight gain 0 kg, 0 lb Method Transabdominal and transvaginal ultrasound examination. View: Suboptimalview: limited by maternal body habitus. Images of optimal diagnostic quality could not be obtained. Medical Balance Bridge Assembler Balance Bridge Assembler declined Caro . Number of fetuses: 1 Dating LMP on: 03/08/2025 GA by LMP 28 w + 2 d CLEMENCIA by LMP: 12/13/2025 Previous Ultrasound on: 05/05/2025 Type of prior assessment: GA GA at prior assessment date 6 w + 3 d GA by previous U/S 26 w + 3 d CLEMENCIA by previous Ultrasound: 12/26/2025 Ultrasound examination on: 09/22/2025 GA by U/S based upon: AC, BPD, Femur, HC GA by U/S 28 w + 5 d CLEMENCIA by U/S: 12/10/2025 Assigned: based on ultrasound (GA), selected on 09/22/2025 Assigned GA (weeks days) 26 w + 3 d Assigned CLEMENCIA: 12/26/2025 General Evaluation Cardiac activity Present. FHR 131 bpm. Presentation: cephalic Placenta: Placental site: right lateral, away from cervical os Umbilical cord: Cord vessels: 3 vessel cord. Insertion site: normalinsertion Amniotic fluid: Amount of AF: polyhydramnios. MVP 9.4 cm Biometry Standard BPD 68.9 mm 27w 5d 81% Hadlock OFD 90.5 mm 29w 1d 98% Alfonso HC 254.3 mm 27w 4d 65% Hadlock Cerebellum tr 30.1 mm 26w 1d 52% Hill AC 254.4 mm 29w 4d >99% Hadlock Femur 56.8 mm 29w 6d 99% Hadlock Humerus 52.1 mm 30w 2d >99% Alfonso HC / AC 1.00 EFW 1,376 g >99% Hadlock EFW (lb) 3 lb EFW (oz) 1 oz EFW by: Hadlock (UYH-UY-BE-FL) Extended Tibia 49.0 mm 29w 3d >99% Alfonso Separator Operator 5.2 mm CM 7.5 mm 80% Nicolaides Inner IOD 18.1 mm Outer IOD 50.2 mm Head / Face / Neck Cephalic index 0.76 23% Nicolaides Nasal bone: present Extremities / Bony Struc FL / BPD 0.82 FL / HC 0.22 FL / AC 0.22 Other Structures FHR 131 bpm Anatomy The following structures appear normal: Head/Neck: Cranium. Lateral ventricles. Choroid plexus. Midline falx.Cavum septi pellucidi. Cerebellum. Cisterna magna. Parenchyma. Vermis. Neck. Face: Lips. Profile. Nose. Nasal bone. Orbits. Heart/Thorax: Situs. Cardiac position. Cardiac axis. Cardiac size. Cardiac rhythm. Abdomen: Stomach. Kidneys. Bladder. Genitals. Extremities/Skeleton: Right upper arm. Right forearm. Right upper leg.Right lower leg. Skeleton The following structures could not be adequately visualized: Face Maxilla. Heart / Thorax 4-chamber view. LVOT view. 3-vessel view. Ductal arch view. Interventricular septum. Diaphragm. Spine: Cervical spine. Lumbar spine. Sacral spine. Extremities / Right hand. Left upper arm. Left forearm. Left hand. Skeleton The following structures could not be examined: Face Mandible. Heart / Thorax RVOT view. 0-hvkewo-xniuooe view. Aortic arch view. Bicavalview. Great vessels. Right lung. Left lung. Abdomen Abdom. wall. Cord insertion. Right renal artery. Left renalartery. Spine Thoracic spine. Extremities / Right foot. Left upper leg. Left lower leg. Left foot. Skeleton Maternal Structures Uterus Visualized Cervix Visualized Approach - Transvaginal: Cervical length 3.87 cm Right Ovary Not visualized Left Ovary Not visualized Cul de Sac Visualized. No free fluid visualized Impression Single live intrauterine , 26w 3d with an CLEMENCIA of 12/26/2025. Macrosomic growth. EFW measures at the >99%, AC measures at the>99%. Transvaginal cervical length measures 3.87 cm. Amniotic fluid MVP measures 9.4 cm, consistent with mild polyhydramnios. Recommendations Please see [facility] documentation from today. The patient is scheduled in four to six week(s) to complete anatomicsurvey. Subsequent follow up or other follow up as clinically determined byprimary OB provider unless otherwise specified by M. Results forwarded to ordering provider so they can follow up with thepatient as necessary. Authorizing ProviderResult TypeResult StatusAndi Weller MDDebi ORDERABLES Final Result * SST TOP (08/23/2025 8:24 PM EST)ComponentValueRef RangeTest MethodAnalysis TimePerformed AtPathologist SignatureExtra TubeAuto Zdimbuus87/04/2025 10:01 PM ESTPROMEDICA ADVENTIST HEALTH BAKERSFIELD - BAKERSFIELDpecimen (Source)Anatomical Location / LateralityCollection Method / VolumeCollection TimeReceived TimeBloodVenous blood / Luvlwip0408/23/2025 8:24 PM EST08/23/2025 8:24 PM EST Narrative Authorizing ProviderResult TypeResult StatusNy Lewis PCTS-CNMLAB BLOOD ORDERABLESFinal ResultPerforming OrganizationAddressCity/State/ZIP CodePhone Number [address] [address], * (ABNORMAL) CBC without diff (08/23/2025 8:20 PM EST)ComponentValueRef Range Test MethodAnalysis TimePerformed AtPathologist SignatureWBC8.94 - 11 X10^9/L 08/23/2025 8:32 PM ESTZANESVILLE CITY HOSPITALRBC Count3.62(L)3.8 - 5.2 X10^12/L110/23/2024 8:32 PM [facility] Jfsdeynnyu92.6(L)11.7 - 15.5 g/dL08/23/2025 8:32 PM ESTZANESVILLE CITY HOSPITALHematocrit31.2(L)35 - 47 %08/23/2025 8:32 PM ESTZANESVILLE CITY HOSPITALMCV8680 - 100 fL08/23/2025 8:32 PM ESTZANESVILLE CITY HOSPITALMCH29.227 - 34 pg08/23/2025 8:32 PM [facility]ITALMCHC33.832 - 36 g/dL08/23/2025 8:32 PM ESTZANESVILLE CITY HOSPITALRDW13.511.5 - 15 %08/23/2025 8:32 PM [facility]OSPITALPlatelet Icgzo641978 - 450 X10^9/L110/23/2024 8:32 PM ESTZANESVILLE CITY HOSPITALMPV9.27 - 12 fL08/23/2025 8:32 PM EST [facility] COMPANYpecimen (Source)Anatomical Location / LateralityCollection Method / VolumeCollection TimeReceived TimeBloodVenous blood / UnknownVenipuncture / Pnrvpxz1508/23/2025 8:20 PM EST08/23/2025 8:23 PM EST Narrative Authorizing ProviderResult TypeResult StatusKathleen S Debbie PCTS-CNMLAB BLOOD ORDERABLESFinal ResultPerforming OrganizationAddressCity/State/ZIP CodePhone Number [address] [place] [address], * (ABNORMAL) Basic Metabolic Panel (08/23/2025 8:20 PM EST)ComponentValueRef RangeTest MethodAnalysis TimePerformed AtPathologist XilyxprbvJWIOVB565867 - 146 mmol/L110/23/2024 8:37 PM ESTPROCOLORADO RIVER MEDICAL CENTERPOTASSIUM 3.73.5 - 5.0 mmol/L110/23/2024 8:37 PM ESTPROCOLORADO RIVER MEDICAL CENTER ZKYHBOQR05486 - 109 mmol/L110/23/2024 8:37 PM ESTPROCOLORADO RIVER MEDICAL CENTERCARBON MYIADTM99(L)22 - 32 mmol/L110/23/2024 8:37 PM ESTZANESVILLE CITY HOSPITALANION DNJ492 - 15 mmol/L110/23/2024 8:37 PM EST [facility]OSPITALBLOOD UREA KGAEHLNL09 - 23 mg/dL08/23/2025 8:37 PM ESTZANESVILLE CITY HOSPITALCREATININE0.530.40 - 1.00 mg/dL 08/23/2025 8:37 PM [facility]ITALComment:METHOD TRACEABLE TO IDMS HFQAWMVWOPQSPUQ965(H)65 - 99 mg/dL08/23/2025 8:37 PM EST [facility]OSPITALCALCIUM8.3(L)8.5 - 10.5 mg/dL08/23/2025 8:37 PM [facility] LUT[facility] HOSPITALEGFR Non-Race Dependent>90>=60 ml/min/1.73sq.m110/23/2024 8:37 PM [facility] Comment: eGFR not reported due to non-numeric value for Creatinine. Reported eGFR is based on the CKD-EPI 2020 equation that does not use a race coefficient. Specimen (Source)Anatomical Location / LateralityCollection Method / Volume Collection TimeReceived TimeBloodVenous blood / UnknownVenipuncture / Unknown 08/23/2025 8:20 PM EST08/23/2025 8:23 PM EST Narrative Authorizing ProviderResult TypeResult StatusKatadelaide Lewis PCTS-CNMLAB BLOOD ORDERABLESFinal ResultPerforming OrganizationAddressCity/State/ZIP CodePhone Number [facility] [address] [place] [address], * (ABNORMAL) Urinalysis (08/23/2025 8:03 PM EST)ComponentValueRef RangeTest MethodAnalysis TimePerformed AtPathologist SignatureCOLORYellowYellow 08/23/2025 8:41 PM ESTPROMEDIST. BERNARDINE MEDICAL CENTERTURBIDITYHazy(A)Clear 08/23/2025 8:41 PM ESTREGENCY HOSPITAL COMPANYPECIFIC GRAVITY1.020 1.003 - 1.3395008/23/2025 8:41 PM ESTPROCOLORADO RIVER MEDICAL CENTERNITRITE ShhnvhtyUzxuokfw56/04/2025 8:41 PM [facility] PH,URINE7.05.0 - 8.511 8:41 PM [facility] LEUKOCYTE WCSXSVFGUtrtrhlaJiwfzxoh97/04/2025 8:41 PM ESTPROCOLORADO RIVER MEDICAL CENTERPROTEINTrace(A)Zhtpjmsp75/04/2025 8:41 PM ESTPROMEDIST. BERNARDINE MEDICAL CENTERKETONES (URINE)OjyakvidLizyucpg80/04/2025 8:41 PM EST [facility]OS[facility]ITALUROBILINOGEN>=8.0 eu/dL(A)0.2 eu/dL, 1.0 eu/dL08/23/2025 8:41 PM ESTZANESVILLE CITY HOSPITALBILIRUBIN (URINE)TiwqzclnWmgtptck06/04/2025 8:41 PM ESTZANESVILLE CITY HOSPITALBLOOD/REDAczxeedbVxmceipg69/04/2025 8:41 PM ESTZANESVILLE CITY HOSPITALAMORPHOUS SEDIMENTPresent(A)None08/23/2025 8:41 PM EST [facility] COMPANYQUAMOUS JNJGEFOQBA89 - 511 8:41 PM ESTPROCOLORADO RIVER MEDICAL CENTERGLUCOSE (URINE)NegativeNegative, 250 mg/dL08/23/2025 8:41 PM ESTREGENCY HOSPITAL COMPANYpecimen (Source)Anatomical Location / LateralityCollection Method / VolumeCollection TimeReceived TimeUrineUrine specimen collection, clean catch / Unknown 08/23/2025 8:03 PM EST08/23/2025 8:23 PM EST Narrative Authorizing ProviderResult TypeResult StatusGeorgieadelaide Lewis PCTS-CNMURINE ORDERABLESFinal ResultPerforming OrganizationAddressty/State/ZIP CodePhone Number [facility] [address] [place] [address], * Chlamydia/GC by PCR Payam Swab (10/31/2021 7:40 AM EST)ComponentValueRef Range Test MethodAnalysis TimePerformed AtPathologist SignatureSpecimen source SBTLMIM5210/31/2021 1:29 PM [facility] LABComment: SWAB Corrected on 10/31 AT 1329: Previously reported as vaginal Chlamydia DNA PCRNegativeNegative^Zwjiblgh98/13/2022 11:35 AM [facility] LABComment: ? Chlamydia trachomatis not detected by nucleic acid amplification. This does not exclude the possibility of infection because results are dependent on adequate specimen collection. ? Gonorrhea DNA PCRNegativeNegative^Csuttlnn91/13/2022 11:35 AM [facility] LABComment: ? Neisseria gonorrhoeae not detected by nucleic acid amplification. This does not exclude the possibility of infection because results are dependent on adequate specimen collection. ? Specimen (Source)Anatomical Location / LateralityCollection Method / Volume Collection TimeReceived GwkgLFXU06/12/2022 7:40 AM EST10/31/2021 1:29 PM EST Narrative Authorizing ProviderResult TypeResult StatusValdemar Pelletier MDMICROBIOLOGY - GENERAL ORDERABLESEdited Result - FinalPerforming OrganizationAddress City/State/ZIP CodePhone Number [facility] [address] [place] [address] from Last 3 Months or Most Recently [place] [id number] Care Teams Team MemberRelationshipSpecialtyStart DateEnd Date Manuel Schwartz MD PCP - GeneralFamily Medicine01/21/19
--- OUTSIDE RECORDS SUMMARY | 2025-10-17 00:17 | XMS_ITS | Clinical Summary ---
Author Organization [facility] Healthcare Address [address] [place] [address] Care Team Providers Care Aix System Administrator Name Role Phone Manuel Schwartz MD Primary Care Provider [phone] Manuel Schwartz MD Unavailable Allergies Active AllergyReactionsCriticalityNoted DateCommentsPenicillinsUnknown,Hives, VefvIvt8411/03/2000 Other Reaction(s): Unknown Reaction Medications MedicationSigDispense QuantityRefillsLast FilledStart DateEnd DateStatus ondansetron (Zofran) 4 MG tablet Indications:Right ovarian [...] as needed for nausea. 30 tablet 5Active omeprazole (PriLOSEC) [address] capsule Indications:Gastroesophageal reflux disease, unspecified whether esophagitis presentTake 1 capsule (40 mg) by mouth in the morning and 1 capsule (40 mg) in the evening. Take before meals. 60 capsule 5Active ondansetron (Zofran) 4 MG tablet Indications:NauseaTake 1 tablet (4 mg) by mouth every 6 (six) hours if needed for nausea or vomiting for up to 30 doses Take 1 tablet by mouth every 6 hours as needed for nausea. 30 tablet 312/08/2025Active albuterol HFA 90 mcg/act inhaler Indications:Extrinsic asthma without complication, unspecified asthma severity, unspecified whether persistent (HCC)Inhale 2 puffs every 4 (four) hours if needed for wheezing 18 g 11125111/27/2025ctive omeprazole (PriLOSEC) [address] capsule Indications:Gastroesophageal reflux disease, unspecified whether esophagitis presentTake 1 capsule (40 mg) by mouth in the morning and 1 capsule (40 mg) in the evening. Take before meals. 60 capsule 50Discontinued(Therapy completed) Active Problems ProblemNoted DateDiagnosed DateRight sided ethccklt18/13/2024 Assessment & Plan (06/01/2024 1:53 PM EDT): Recent pain and treat with prednisone. Use flexeril PRN. Check x-ray and start PT. Dzxvdiwzgb85/10/2024 Assessment & Plan (04/28/2024 2:19 PM EDT): Concerned of possible and check labs. Major depressive disorder, recurrent episode, mild03/02/2024 Assessment & Plan (06/01/2024 1:53 PM EDT): Mild symptoms and letter for emotional support animal to patient. Gastroesophageal reflux disease without vuykteidnxk83/14/2024 Assessment & Plan (06/01/2024 1:53 PM EDT): Symptoms controlled with omeprazole and continue. Assessment & Plan (04/28/2024 2:19 PM EDT): Symptoms controlled with omeprazole and continue. Mild intermittent asthma without kumdtrecoqwe54/14/2024llergic rhinitis due to lirtrz2203/02/2024Morbid obesity due to excess ihqqydod71/14/2024 Assessment & Plan (06/01/2024 1:54 PM EDT): [...] for evaluation and possible endoscopy. Encounters DateTypeDepartmentCare TtaqMlogjrxvojx78/23/2025 1:50 [place] [address] Jefferson Howard, 29 weeks gestation of ([facility]); Third trimester ([facility]); PCOS (polycystic ovarian syndrome); Extrinsic asthma without complication, unspecified asthma severity, unspecified whether persistent ([facility]); History of mxuwmdpdcclrom65/23/2025Bamboo [place] [address] Jefferson Howard DO 5Clinisync Result Encounter NOMS External Department Unsolicited Gia Agustin PA 09/26/2025 2:40 [place] [address] Jefferson Howard DO Excessive growth affecting management of in second trimester, single or unspecifiedfetus ([facility]) (Primary Dx); Second trimester ([facility]); 27 weeks gestation of ([facility]); Gastroesophageal reflux disease, unspecified whether esophagitis present; Right ovarian cyst; Nausea; PCOS (polycystic ovarian syndrome); Extrinsic asthma without complication, unspecified asthma severity, unspecified whether persistent ([facility]); History of hypothyroidism; Polyhydramnios affecting ([facility])09/26/2025amboo flowsheet [facility] [place] Buchanan [facility] [place] [address] Jefferson Howard, 09/12/2025linisync Result Encounter NOMS External Department Unsolicited Jefferson Howard, 08/31/2025 11:20 AM ESTRoutine [facility] [place] [address] Gia Agustin PA Second trimester ([facility]); 23 weeks gestation of ([facility]); Diabetes mellitus screening; Urinary tract infection without hematuria, site /12/2025amb flowsheet [facility] [place] [address] Gia Agustin PA 08/18/2025bstract [facility] Emma JOSEPHN [place] [address] Jefferson Howard, 08/18/2025Orders Only [facility] [place] [address] Janneth Paul MA 08/10/2025 11:00 AM EDTAncillary Procedure [facility] [place] [address] Screening, , for anatomic survey ([facility])08/02/2025 1:40 PM [place] [address] Jefferson Howard, Second trimester ([facility]); 19 weeks gestation of ([facility]); Screening, , for anatomic survey ([facility]); LGSIL of cervix of undetermined daolzxrqtbkh04/14/2025linisync Result Encounter NOMS External Department Unsolicited AnitaJefferson, DO 08/02/2025amboo flowsheet [facility] [place] [address] [place] [address] [place] [address] Jefferson Howard, DO 07/25/2025linisync Result Encounter NOMS External Department Unsolicited Gia Agustin PA from Last 3 Months Social History Tobacco UseTypesPacks/DayYears UsedDateSmoking Tobacco: NeverSmokeless Tobacco: Never Tobacco Cessation:Counseling Given: Not Answered Social Connection and Isolation PanelAnswerDate RecordedIn a typical week, how many times do you talk on the phone with family, friends, or neighbors?Twice a week03/02/2024How often do you get together with friends or relatives?Twice a week03/02/2024How often do you attend congregation or yazdanism services?Never 03/02/2024ctive Member of Clubs or OrganizationsNot [...] to strenuous exercise (like a brisk walk)?Patient rybslfzi27/14/2024On average, how many minutes do you engage in exercise at this level?Patient rtosoinv56/14/2024 Housing Stability Vital SignAnswerDate RecordedIn the last 12 months, was there a time when you were not able to pay the mortgage or rent on time?No03/02/2024In the last 12 months, how many places have you lived?In the last 12 months, was there a time when you did not have a steady place to sleep or slept in blooming prairieelter (including now)?No05/14/2024Estimated Date of Delivery FyvutkzwUpf09/09/2026Based on Ultrasound, FHR- 136Sex and Gender Information ValueDate RecordedSex Assigned at BirthNot on fileLegal SwnKvgjfq32/15/2023 8:14 PM EDTGender IdentityNot on fileSexual OrientationNot on file Last Filed Vital Signs Vital SignReadingTime TakenCommentsBlood Bpzrowdu591/8410/11/2025 2:03 PM EST Mnedc56846/13/2024 1:21 PM AJVBftygskciib14.6 ??C (97.8 ??F)06/01/2024 1:21 PM EDTRespiratory Kwpe086706/01/2024 1:21 PM EDTOxygen Lnsqpalqaz57%06/01/2024 1:21 PM EDTInhaled Oxygen Concentration--Xuxykt294 kg (277 lb)10/11/2025 2:03 PM EST Dpoott054.9 cm (5' 1 )06/01/2024 1:21 PM EDTBody Mass Index52.3408 1:21 PM EDT Plan of Treatment DateTypeDepartmentCare Team (Latest Contact Info)Hopvyeeealw53/08/2026 1:30 PM ESTRoutine [facility] [address] [place] [address] Shanell Monroe, PROPERTY COORDINATOR [address] [facility] [address] [place] [address] Health MaintenanceDue DateLast DoneCommentsPneumococcal Vaccine: Pediatrics (0 to 5 Years) and At-Risk Patients (6 to 64 Years) (1 of 2 - PCV)2019 Influenza Vaccine (#1)2025 Procedures Procedure NamePriorityDate/TimeAssociated DiagnosisCommentsPOCT URINALYSIS BGXKNTVYBsipsib58/23/2025 2:12 PM EST 29 weeks gestation of ([facility]) Third trimester ([facility]) ALL THYROID STIM FCDQFYSUfazvax86/10/2025 11:28 AM EST GLUCOSE 1 SIWNTiqrkrp78/10/2025 11:28 AM EST ALL CBC WITH AUTO FFVEEcjmnlq93/10/2025 11:28 AM EST TBH UA (CLEAN/CATCH) THREAD TOOL GRINDER SET UP OPERATOR/MICRO IF IND.Ahqnndq9309/12/2025 9:30 AM EST URINARY TRACT INFECTION (HTRX)Siazzhc1408/31/2025 12:03 PM EST POCT URINALYSIS BUERQFDJHkwthvt11/12/2025 11:16 AM EST Second trimester ([facility]) US OB 14+ WEEKS ANATOMY GJGMGqyeqcu59/22/2025 11:57 AM EDT Screening, , for anatomic survey ([facility]) IGP,APTIMA HPV,AGE THQMDfibuyn42/14/2025 1:40 PM EDT PAP TEST, PBEFXXOJMtaswzx00/14/2025 12:00 AM EDTAFP, SERUM, OPEN SPINA BIFIDA Rctpadb0307/25/2025 12:10 PM EDT from Last 3 Months Results * (ABNORMAL) POCT urinalysis dipstick manually resulted (10/11/2025 2:12 PM EST) Only the most recent of2 resultswithin the time period is included. ComponentValueRef RangeTest MethodAnalysis TimePerformed AtPathologist Signature Color, UAAmberClarity, UAClearGlucose, UANegativeNegative - 2000(110) ++++ mg/dL Bilirubin, UANegativeNegative - 4(70) +++ mg/dLKetones, UANegativeNegative - 160(16) ++++ mg/dLSpec Grav, UA1.0301 - 1.03Blood, UANegativeNegative - 50 Lincoln/mcLpH, UA6.05 - 9Protein, UAPositiveNegative - 2000(20) ++++ mg/dL Urobilinogen, UA2.00.2 - 12 mg/dLLeukocytes, UAPositiveNegative - 500+++ Skyler/mcL Nitrite, UANegativeNegative - PositiveSpecimen (Source)Anatomical Location / LateralityCollection Method / VolumeCollection TimeReceived OdcmIecam02/23/2025 2:12 PM EST Narrative Authorizing ProviderResult TypeResult StatusCorejosué BagleyAnita DOPOINT OF CARE TEST ENTER/EDIT ORDERABLESFinal Result * GLUCOSE 1 HOUR (09/28/2025 11:28 AM EST)ComponentValueRef RangeTest Method Analysis TimePerformed AtPathologist SignatureGLUCOSE 1 GBGW644<130 mg/dLTBH Specimen (Source)Anatomical Location / LateralityCollection Method / Volume Collection TimeReceived Time09/28/2025 11:28 AM EST09/28/2025 11:28 AM EST Narrative [facility] - 09/28/2025 11:51 AM EST Authorizing ProviderResult TypeResult StatusAmy Vamsi PAL BLOOD ORDERABLES Final ResultPerforming OrganizationAddressCity/State/ZIP CodePhone Number [facility] * ALL THYROID STIM HORMONE (09/28/2025 11:28 AM EST)ComponentValueRef RangeTest MethodAnalysis TimePerformed AtPathologist SignatureTHYROID STIMULATING HORMONE1.5780.358 - 3.740 uIU/mLTBHSpecimen (Source)Anatomical Location / LateralityCollection Method / VolumeCollection TimeReceived Time09/28/2025 11:28 AM EST09/28/2025 11:28 AM EST Narrative [facility] - 09/28/2025 12:04 PM EST Authorizing ProviderResult TypeResult StatusShanell Monroe NPCLINISYNCFinal ResultPerforming OrganizationAddressCity/State/ZIP CodePhone Number [facility] * (ABNORMAL) ALL CBC WITH AUTO DIFF (09/28/2025 11:28 AM EST)ComponentValueRef RangeTest MethodAnalysis TimePerformed AtPathologist SignatureTBH WBC7.24.0 - 11.0 10 3/uLTBHTBH RBC3.68(L)4.20 - 5.40 10 6/uLTBHTBH HGB10.5(L)12.0 - 16.0 g/dLTBHTBH HCT32.6(L)36.0 - 48.0 %TBHTBH MCV88.681.0 - 99.0 fLTBHTBH MCH28.5 26.7 - 34.0 pgTBHTBH MCHC32.229.9 - 35.2 g/dLTBHTBH RDW13.211.0 - 15.0 %TBHTBH ATB257936 - 450 10 3/uLTBHTBH MPV10.99.5 - 13.5 fLTBHNEUTROPHILS PERCENT AUTO 61.143.0 - 75.0 %TBHLYMPHOCYTES PERCENT AUTO32.620.5 - 60.0 %TBHMONOCYTES PERCENT AUTO5.01.7 - 12.0 %TBHTBH EO %0.3(L)0.9 - 7.0 %TBHBASOPHILS PERCENT AUTO0.30.2 - 2.0 %TBHIMMATURE GRANULOCYTES PCT AUTO0.7(H)0.0 - 0.5 %TBH NEUTROPHILS ABSOLUTE AUTO4.41.4 - 6.5 10 3/uLTBHLYMPHOCYTES ABSOLUTE AUTO2.4 1.2 - 3.8 10 3/uLTBHMONOCYTES ABSOLUTE AUTO0.40.3 - 0.8 10 3/uLTBHTBH EO #0.0 0.0 - 0.7 10 3/uLTBHBASOPHILS ABSOLUTE AUTO0.00.0 - 0.1 10 3/uLTBHIMMATURE GRANULOCYTES ABS AUTO0.05(H)0.00 - 0.03 10 3/uLTBHSpecimen (Source)Anatomical Location / LateralityCollection Method / VolumeCollection TimeReceived Time 09/28/2025 11:28 AM EST09/28/2025 11:28 AM EST Narrative [facility] - 09/28/2025 11:44 AM EST Authorizing ProviderResult TypeResult StatusAmy Currie PACLINISYNCFinal Result Performing OrganizationAddressCity/State/ZIP CodePhone Number [facility] TB * TBH UA (CLEAN/CATCH) THREAD TOOL GRINDER SET UP OPERATOR/MICRO IF IND. (09/12/2025 9:30 AM EST)ComponentValue Ref RangeTest MethodAnalysis TimePerformed AtPathologist SignatureCOLOR URINE YELLOWYELLOWTBHCLARITY URINECLEARCLEARTBHSPECIFIC GRAVITY URINE1.0201.005 - 1.025TBHPH URINE6.05.0 - 9.0TBHPROTEIN URINETRACENEG/TRACE mg/dLTBHGLUCOSE URINE UANEGATIVENEGATIVE mg/dLTBHBILIRUBIN URINENEGATIVENEGATIVETBHKETONES URINENEGATIVENEGATIVE mg/dLTBHBLOOD URINENEGATIVENEGATIVETBHNITRITE URINE NEGATIVENEGATIVETBHUROBILINOGEN URINE1.00.2 - 1.0 EU/dLTBHLEUKOCYTE ESTERASE URINENEGATIVENEGATIVETBHURINE MICROSCOPIC INDICATEDNOTBHSpecimen (Source) Anatomical Location / LateralityCollection Method / VolumeCollection Time Received Time09/12/2025 9:30 AM EST09/12/2025 9:34 AM EST Narrative [facility] - 09/12/2025 9:43 AM EST Authorizing ProviderResult TypeResult StatusCorey Anita DOCLINISYNCFinal Result Performing OrganizationAddressCity/State/ZIP CodePhone Number [facility] * URINARY TRACT INFECTION (HTRX) (08/31/2025 12:03 PM EST)ComponentValueRef RangeTest MethodAnalysis TimePerformed AtPathologist SignatureACINETOBACTER FZRHBAHM510.961 - 24.689 ppm09/02/2025 8:22 AM ESTHealthTrackRx at [facility] ACINETOBACTER BAUMANIINot Ztezvfnu39.961 - 24.689 ppm09/02/2025 8:22 AM EST [facility] at LabPortCITROBACTER NZJZSJGT372.000 - 32.015 ppm09/02/2025 8:22 AM ESTHealthTrackRx at LabPortCITROBACTER FREUNDIINot Wcxggrfq33.000 - 32.015 ppm09/02/2025 8:22 AM ESTHealthTrackRx at LabPortENTEROBACTER AEROGENES, KAWBXRZ818.000 - 32.290 ppm09/02/2025 8:22 AM ESTHealthTrackRx at LabPortENTEROBACTER AEROGENES, CLOACAENot Wcssuqjp32.000 - 32.290 ppm 09/02/2025 8:22 AM ESTHealthTrackRx at LabPortENTEROCOCCUS FAECALIS, FAECIUM0 26.000 - 33.043 ppm09/02/2025 8:22 AM ESTHealthTrackRx at LabPortENTEROCOCCUS FAECALIS, FAECIUMNot Eivacheo55.000 - 33.043 ppm09/02/2025 8:22 AM EST [facility] at LabPortESCHERICHIA KPRN589.000 - 28.500 ppm09/02/2025 8:22 AM ESTHealthTrackRx at LabPortESCHERICHIA COLINot Fmhsguev15.000 - 28.500 ppm 09/02/2025 8:22 AM ESTHealthTrackRx at LabPortKLEBSIELLA PNEUMONIAE, OXYTOCA0 23.000 - 31.865 ppm09/02/2025 8:22 AM ESTHealthTrackRx at LabPortKLEBSIELLA PNEUMONIAE, OXYTOCANot Uzqxyowz24.000 - 31.865 ppm09/02/2025 8:22 AM EST [facility] at LabPortMORGANELLA UYQLNQQE086.961 - 24.689 ppm09/02/2025 8:22 AM ESTHealthTrackRx at LabPortMORGANELLA MORGANIINot Qgudznjj95.961 - 24.689 ppm09/02/2025 8:22 AM ESTHealthTrackRx at LabPortPROTEUS MIRABILIS, VULGARIS0 23.000 - 28.500 ppm09/02/2025 8:22 AM ESTHealthTrackRx at LabPortPROTEUS MIRABILIS, VULGARISNot Cimjsfqj17.000 - 28.500 ppm09/02/2025 8:22 AM EST [facility] at LabPortPSEUDOMONAS TDEUFEYREM907.000 - 31.801 ppm09/02/2025 8:22 AM ESTHealthTrackRx at LabPortPSEUDOMONAS AERUGINOSANot Wuozkdgp92.000 - 31.801 ppm09/02/2025 8:22 AM ESTHealthTrackRx at LabPortSTAPHYLOCOCCUS AUREUS0 26.000 - 31.595 ppm09/02/2025 8:22 AM ESTHealthTrackRx at [facility] STAPHYLOCOCCUS AUREUSNot Txmhynpg88.000 - 31.595 ppm09/02/2025 8:22 AM EST [facility] at LabPortSTREPTOCOCCUS AGALACTIAE (GROUP B STREP)026.000 - 32.435 ppm09/02/2025 8:22 AM ESTHealthTrackRx at LabPortSTREPTOCOCCUS AGALACTIAE (GROUP B STREP)Not Btlqybio99.000 - 32.435 ppm09/02/2025 8:22 AM ESTHealthTrackRx at LabPortCANDIDA ALBICANS, PARAPSILOSIS, FLSTNJTVPQ997.000 - 30.347 ppm09/02/2025 8:22 AM ESTHealthTrackRx at LabPortCANDIDA ALBICANS, PARAPSILOSIS, TROPICALISNot Iaecsfdh21.000 - 30.347 ppm09/02/2025 8:22 AM EST [facility]PortCANDIDA HKMZMXAL807.000 - 31.618 ppm09/02/2025 8:22 AM ESTHealthTrackRx at LabPortCANDIDA GLABRATANot Tnfyjqgg86.000 - 31.618 ppm 09/02/2025 8:22 AM ESTHealthTrackRx at LabPortCANDIDA LMLBBD754.000 - 30.873 ppm09/02/2025 8:22 AM ESTHealthTrackRx at LabPortCANDIDA KRUSEINot Detected 23.000 - 30.873 ppm09/02/2025 8:22 AM ESTHealthTrackRx at LabPortSERRATIA VGWBJJPOVE861.000 - 31.581 ppm09/02/2025 8:22 AM EST[facility] SERRATIA MARCESCENSNot Wszigudq04.000 - 31.581 ppm09/02/2025 8:22 AM EST [facility] at LabPortSTREPTOCOCCUS PYOGENES (GROUP A STREP)019.961 - 24.689 ppm09/02/2025 8:22 AM ESTHealthTrackRx at LabPortSTREPTOCOCCUS PYOGENES (GROUP A STREP)Not Lrkpwllx23.961 - 24.689 ppm09/02/2025 8:22 AM ESTHealthTrackRx at LabPortSTAPHYLOCOCCUS EPIDERMIDIS, HAEMOLYTICUS, LUGDUNENSIS, SAPROPHYTICUS (FVGII442.961 - 24.689 ppm09/02/2025 8:22 AM ESTHealth[facility] STAPHYLOCOCCUS EPIDERMIDIS, HAEMOLYTICUS, LUGDUNENSIS, SAPROPHYTICUS (URINANot Ffnjosvi35.961 - 24.689 ppm09/02/2025 8:22 AM ESTHealth[facility]Rx [facility] STAPHYLOCOCCUS EPIDERMIDIS, HAEMOLYTICUS, LUGDUNENSIS, SAPROPHYTICUS (URINA0 19.961 - 24.689 ppm09/02/2025 8:22 AM ESTHealth[facility] STAPHYLOCOCCUS EPIDERMIDIS, HAEMOLYTICUS, LUGDUNENSIS, SAPROPHYTICUS (URINANot Tnonezqt99.961 - 24.689 ppm09/02/2025 8:22 AM ESTHealth[facility]Rx at [facility] Specimen (Source)Anatomical Location / LateralityCollection Method / Volume Collection TimeReceived NidlHxilt74/12/2025 12:03 PM EST09/02/2025 1:46 AM EST Narrative Authorizing ProviderResult TypeResult StatusAmy Vamsi PAL BLOOD ORDERABLES Final ResultPerforming OrganizationAddressCity/State/ZIP CodePhone Number [facility] [address] [address] * US OB 14+ weeks anatomy scan [...] at: 01 =G ?[facility] ?? [address] [place] ??[phone] ?? Aleida Colon MD, IGP, RFX APTIMA HPV ASCUNote.TBHComment: ?? TESTS ? RESULT ??FLAG ??UNITS ?REF RANGE ??LAB DIAGNOSIS: ?02 ?? NEGATIVE FOR INTRAEPITHELIAL LESION OR MALIGNANCY. Specimen adequacy: ?02 ?? Satisfactory for evaluation. ??No endocervical component is identified. ?? An endocervical component is not commonly seen in the patient. Performed by: ? 02 ?? Cynthia Smith Corner Trimmer Operator (ASCP) . ? 02 Note: ? Note [...] pap test was interpreted ?? using the Launchpilots(R) Genius(TM) Cervical Algorithm whole ?? slide imaging system. . ? 02 ?? The HPV DNA reflex criteria were not met with this specimen ?? result therefore, no HPV testing was performed. ?FLAG LEGEND: ?L-Low Normal,H-High Normal,LL-Alert Low,HH-Alert High <-Panic Low,>-Panic High,A-Abnormal,AA-Critical Abnormal Performed at: 02 WB ?[facility] [place] ?? [address], [place] ??[address] ?? Aleida Colon MD, Performed at: ??=G - [facility] [place] [address], [place] ??[id number] Contracts Manager: Aleida Colon MD, Phone: ??[phone] Performed at: ??WB - [facility] [address] ??[id number] Contracts Manager: Aleida Colon MD, Phone: ??[phone] Specimen (Source)Anatomical Location / LateralityCollection Method / [...] within 10 days. MATERNAL AGE AT EDD25.1. yrTBHRACECaucasian.YJRSNNBEW272. lbsTBHINSULIN DEP DIABETESNo.TBHMULTIPLE GESTATIONNo.TBHAFP VALUE31.7. ng/mLTBHAFP MOM1.07.TBHOSBR RISK 1 LQ9251.TBHINTERPRETATIONComment.TBHComment: Interpretation: Screen Negative This result is screen [...] Customer Services to discuss available options. ??The [employer] recommends amniocentesis be offered to women age 35 and older. COMMENT:Comment.TBHComment: Caitlin Palafox, Ph.D., [facility] Director References: Available Upon Request. Multiples Of Median Cutoffs ?For AFP Elevations Caro ?? 2.5 ? Black ?2.8 IDD ? 2.0 ? Twins ?4.5 ?Abbreviation Definitions IDD - Insulin Dep Diabetes OSBR - Open Spina Bifida Risk For further inquiries contact [employer] [facility] [facility] at [phone]. This test was developed and its performance characteristics determined by [employer]. It has not been cleared or approved by the Food and Drug Administration. Performed at: ??TG - [facility] [address] [place], [place] ??[id number] Contracts Manager: Leonidas Oneill [facility], Phone: ??[phone] Specimen (Source)Anatomical Location / LateralityCollection Method / Volume Collection TimeReceived Time07/25/2025 12:10 PM EDT1 12:14 PM EDT Narrative [facility] - 07/26/2025 11:07 PM EDT N N ULTRASOUND [id number] 1 15 N 1 Y 285 N N N N N White/ Authorizing ProviderResult TypeResult StatusAmy VamsiOur Lady of [facility] BLOOD ORDERABLES Final ResultPerforming OrganizationAddressCity/State/ZIP CodePhone Number [facility] from Last 3 Months Insurance Care Teams Team MemberRelationshipSpecialtyStart DateEnd Date Manuel Schwartz MD [address] [place] [address] [facility]03/02/24 Manuel Schwartz MD [address] [place] [address] [facility]07/20/24
--- OUTSIDE RECORDS SUMMARY | 2025-10-17 00:17 | XMS_ITS | Encounter Summary ---
Author Organization [facility] Address [address] [place] [address] Care Team Providers Care Welding Robot Operator Name Role Phone Manuel Schwartz MD Primary Care Provider [phone] Manuel Schwartz MD Unavailable Encounter Details DateTypeDepartmentCare Team (Latest Contact Info)Yosyufnknvt50/23/2025amboo flowsheet [facility] [place] [facility] [address] [place] [address] Jefferson Howard DO [address] [place] [address] Social History Tobacco UseTypesPacks/DayYears UsedDateSmoking Tobacco: NeverSmokeless Tobacco: NeverSocial Connection and Isolation PanelAnswerDate RecordedIn a typical week, how many times do you talk on the phone with family, friends, or neighbors?Twice a week03/02/2024How often do you get together with friends or relatives?Twice a week03/02/2024How often do you attend presybeterian or episcopalian services?Never 03/02/2024ctive Member of Clubs [...] to strenuous exercise (like a brisk walk)?Patient yjkjfjyq52/14/2024On average, how many minutes do you engage in exercise at this level?Patient xfmutbzw17/14/2024 Housing Stability Vital SignAnswerDate RecordedIn the last 12 months, was there a time when you were not able to pay the mortgage or rent on time?No03/02/2024In the last 12 months, how many places have you lived?In the last 12 months, was there a time when you did not have a steady place to sleep or slept in ashelter (including now)?No03/02/2024Estimated Date of Delivery KzguyjfiCsi91/09/2026Based on Ultrasound, FHR- 136Sex and Gender Information ValueDate RecordedSex Assigned at BirthNot on fileLegal LasCyrhic47/15/2023 8:14 PM EDTGender IdentityNot on fileSexual OrientationNot on filedocumented as of this encounter Plan of Treatment DateTypeDepartmentCare Team (Latest Contact Info)Cpxurbplfyv05/08/2026 1:30 PM ESTRoutine [facility] [address] [place] [address] Shanell Monroe NP [address] [place] [address] documented as of this encounter Visit Diagnoses Not on filedocumented in this encounter Care Teams Team MemberRelationshipSpecialtyStart DateEnd Date Manuel Schwartz MD [address] [place] [address] PCP - GeneralFamily Medicine03/02/24 Manuel Schwartz MD [address] [place] [address] [facility]10documented as of this encounter
[2025-10-17 00:51] VITALS: BP 101/63; PULSE 86
[2025-10-17 01:06] LABS: Glucose Urine UA NEGATIVE (NEGATIVE)
[2025-10-17 01:16] LABS: Cast Seen? NONE SEEN #/LPF (NONE SEEN); Crystals Seen? None Seen #/HPF (None Seen); Urine Culture Indicated YES-FRMC
[2025-10-17] MEDS: 0.9 % SODIUM CHLORIDE 1,000 ML 999 ML IV (01:45)
== END 2025-10-17 02:34 | disposition home or self-care (01) ==
LOC: FBCO 00:17 → FBC 00:19
PROVIDERS: Obstetrics & Gynecology; PCP Family Medicine; Visit Provider Obstetrics & Gynecology
DX: O26.893 Other specified pregnancy related conditions, third trimester (principal); Z3A.30 30 weeks gestation of pregnancy
CPT/HCPCS: 59025; 81001; 87086; 87088

== ENCOUNTER 2025-10-17 09:30 | Outpatient (OUT) | payer OTHER, SELFPAY ==
--- OUTSIDE RECORDS SUMMARY | 2025-10-11 13:50 | XMS_ITS | Encounter Summary ---
Author Organization [facility] Address [address] [place] [address] Care Team Providers Care Certified Nurse Name Role Phone Manuel Schwartz MD Primary Care Provider [phone] Manuel Schwartz MD Unavailable Reason for Visit * ReasonCommentsRoutine Visit Encounter Details DateTypeDepartmentCare Team (Latest Contact Info)Ncfscpvjsjv67/23/2025 1:50 PM [facility] [address] [address] Jefferson Howard DO [address] [place], [place] [address] 29 weeks gestation of ([facility]); Third trimester ([facility]); PCOS (polycystic ovarian syndrome); Extrinsic asthma without complication, unspecified asthma severity, unspecified whether persistent ([facility]); History of hypothyroidism Social History Tobacco UseTypesPacks/DayYears UsedDateSmoking Tobacco: NeverSmokeless Tobacco: NeverSocial Connection and Isolation PanelAnswerDate RecordedIn a typical week, how many times do you talk on the phone with family, friends, or neighbors?Twice a week03/02/2024How often do you get together with friends or relatives?Twice a week03/02/2024How often do you attend roman catholic or hinduism services?Never 03/02/2024ctive Member of Clubs [...] to strenuous exercise (like a brisk walk)?Patient btbasqdr36/14/2024On average, how many minutes do you engage in exercise at this level?Patient ikpibzve47/14/2024 Housing Stability Vital SignAnswerDate RecordedIn the last 12 months, was there a time when you were not able to pay the mortgage or rent on time?No03/02/2024In the last 12 months, how many places have you lived?In the last 12 months, was there a time when you did not have a steady place to sleep or slept in [place] (including now)?No03/02/2024Estimated Date of Delivery KzdcvxbbDsi66/09/2026Based on Ultrasound, FHR- 136Sex and Gender Information ValueDate RecordedSex Assigned at BirthNot on fileLegal UfkPyykkc65/15/2023 8:14 PM EDTGender IdentityNot on fileSexual OrientationNot on filedocumented as of this encounter Last Filed Vital Signs Vital SignReadingTime TakenCommentsBlood Ljcemtlc950/8410/11/2025 2:03 PM EST Pulse--Temperature--Respiratory Rate--Oxygen Saturation--Inhaled Oxygen Concentration--Spbndr653 kg (277 lb)10/11/2025 2:03 PM ESTHeight--Body Mass Index52.3408 1:21 PM EDTdocumented in this encounter Progress Notes * Shelley Dang LPN - 10/11/2025 1:50 PM EST Reason for Appointment: Patient ID: Jes [...] every 6 hours as needed for nausea. ondansetron (ZOFRAN) 4 mg, Oral, Every 6 hours PRN, Take 1 tablet by mouth every 6 hours as needed for nausea. promethazine (PHENERGAN) 12.5 mg, Oral, Every 6 hours PRN, Take 1 tablet by mouth every 6 hours as needed for nausea. ALLERGIES Allergies Allergen Reactions Penicillins Unknown, Hives and Rash Other Reaction(s): Unknown Reaction PROBLEMS Active Ambulatory Problems Diagnosis Date Noted Major depressive disorder, recurrent episode, mild 03/02/2024 Gastroesophageal reflux disease without esophagitis 03/02/2024 Mild intermittent asthma without complication ([facility]) 03/02/2024 Allergic rhinitis due to pollen 03/02/2024 Morbid obesity due to excess calories ([facility]) 03/02/2024 Annual physical exam 03/02/2024 Amenorrhea 04/28/2024 Right sided sciatica 06/01/2024 Resolved Ambulatory Problems Diagnosis Date Noted Generalized abdominal pain 03/02/2024 Past Medical History: Diagnosis Date Allergic GERD (gastroesophageal reflux disease) Ovarian cyst HISTORY PAST MEDICAL HISTORY SOCIAL HISTORY Past Medical History: Diagnosis Date Allergic GERD (gastroesophageal reflux disease) Ovarian cyst Social History Tobacco Use Smoking status: Never Smokeless tobacco: Never Substance Use Topics Alcohol use: Not on file Drug use: Not on file FAMILY HISTORY No family history on file. SURGICAL HISTORY Past Surgical History: Procedure Laterality Date CHOLECYSTECTOMY GALLBLADDER REVIEW OF SYSTEMS Review of Systems: [...] nursing note reviewed. Exam conducted with a information receptionist present. Vitals: Estimated body mass index is 52.34 kg/m?? as calculated from the following: Height as of 24: 5' 1 . Weight as of this encounter: 277 lb. BP: 120/84 Patient's last menstrual period was 03/08/2025. Assessment/Plan ICD-10-CM 1. 29 weeks gestation of ([facility]) Z3A.29 POCT urinalysis dipstick manually resulted 2. Third trimester ([facility]) Z34.93 POCT urinalysis dipstick manually resulted 3. PCOS (polycystic ovarian syndrome) E28.2 4. Extrinsic asthma without complication, unspecified asthma severity, unspecified whether persistent ([facility]) J45.909 5. History of hypothyroidism Z86.39 Assessment/Plan Return OB: Patient presents today for a routine obstetrics appointment. Patient is currently 29w1d . Patient states she is doing well but has complaints of being tired due to current . Patient has verbalizes frequent movement. labor precautions was discussed/given and patient was instructed to perform kick counts three times a day. Pt has complaints of maternal exhaustion. Will give restrictions, no more than 30 hours a weeks, 8 hour days. Orders Placed This Encounter Procedures POCT urinalysis dipstick manually resulted Follow Up: Patient is to return to office in 2 week for routine OB appointment. Documented by Shelley Dang LPN on behalf of: Jefferson Howard DO documented in this encounter Plan of Treatment DateTypeDepartmentCare Team (Latest Contact Info)Jqdezgtgftg33/08/2026 1:30 PM [facility] [address] [place] [address] [place] [address] Shanell Monroe, MAXIME [address] [place] [place] [address] documented as of this encounter Procedures Procedure NamePriorityDate/TimeAssociated DiagnosisCommentsPOCT URINALYSIS EELMQGIWLwkqmkm89/23/2025 2:12 PM EST 29 weeks gestation of ([facility]) Third trimester ([facility]) documented in this encounter Results * (ABNORMAL) POCT urinalysis dipstick manually resulted (10/11/2025 2:12 PM EST) ComponentValueRef RangeTest MethodAnalysis TimePerformed AtPathologist SignatureColor, UAAmberClarity, UAClearGlucose, UANegativeNegative - 2000(110) ++++ mg/dLBilirubin, UANegativeNegative - 4(70) +++ mg/dLKetones, UANegative Negative - 160(16) ++++ mg/dLSpec Grav, UA1.0301 - 1.03Blood, UANegative Negative - 50 Lincoln/mcLpH, UA6.05 - 9Protein, UAPositiveNegative - 2000(20) ++++ mg/dLUrobilinogen, UA2.00.2 - 12 mg/dLLeukocytes, UAPositiveNegative - 500+++ Skyler/mcLNitrite, UANegativeNegative - PositiveSpecimen (Source)Anatomical Location / LateralityCollection Method / VolumeCollection TimeReceived Time Urine10/11/2025 2:12 PM EST Narrative Authorizing ProviderResult TypeResult StatusCorey Anita DOPOINT OF CARE TEST ENTER/EDIT ORDERABLESFinal Result documented in this encounter Visit Diagnoses Diagnosis 29 weeks gestation of ([facility]) Third trimester ([facility]) state, incidental PCOS (polycystic ovarian syndrome) Polycystic ovaries Extrinsic asthma without complication, unspecified asthma severity, unspecified whether persistent ([facility]) History of hypothyroidism Personal history of endocrine, metabolic, and immunity disorders documented in this encounter Care Teams Team MemberRelationshipSpecialtyStart DateEnd Date Manuel Schwartz MD [address] [place] [address] [facility]03/02/24 Manuel Schwartz MD [address] [place] [address] [facility]07/20/24documented as of this encounter
--- OUTSIDE RECORDS SUMMARY | 2025-10-17 09:35 | XMS_ITS | Clinical Summary ---
Author Organization [facility] Healthcare Address [address] [place] [address] Care Team Providers Care Bail Agent Name Role Phone Manuel Schwartz MD Primary Care Provider [phone] Manuel Schwartz MD Unavailable Allergies Active AllergyReactionsCriticalityNoted DateCommentsPenicillinsUnknown,Hives, BqkmIfc6611/03/2000 Other Reaction(s): Unknown Reaction Medications MedicationSigDispense QuantityRefillsLast [...] completed) Active Problems ProblemNoted DateDiagnosed DateRight sided qivfritp92/13/2024 Assessment & Plan (06/01/2024 1:53 PM EDT): Recent pain and treat with prednisone. Use flexeril PRN. Check x-ray and start PT. Gtpazsgmfl77/10/2024 Assessment & Plan (04/28/2024 2:19 PM EDT): Concerned of possible and check labs. Major depressive disorder, recurrent episode, mild03/02/2024 Assessment & Plan (06/01/2024 1:53 PM EDT): Mild symptoms and letter for emotional support animal to patient. Gastroesophageal reflux disease without mwssgvtyfqr13/14/2024 Assessment & Plan (06/01/2024 1:53 PM EDT): Symptoms controlled with omeprazole and continue. Assessment & Plan (04/28/2024 2:19 PM EDT): Symptoms controlled with omeprazole and continue. Mild intermittent asthma without pzwurziqqzgq72/14/2024llergic rhinitis due to uoazak3103/02/2024Morbid obesity due to excess zghnsrse73/14/2024 Assessment & Plan (06/01/2024 1:54 PM EDT): [...] for evaluation and possible endoscopy. Encounters DateTypeDepartmentCare EtooElnrdntyeej82/23/2025 1:50 [place] [address] Jefferson Howard, 29 weeks gestation of ([facility]); Third trimester ([facility]); PCOS (polycystic ovarian syndrome); Extrinsic asthma without complication, unspecified asthma severity, unspecified whether persistent ([facility]); History of paqxxowkoilwpc03/23/2025Bamboo [place] [address] Jefferson Howard DO 5Clinisync Result Encounter NOMS External Department Unsolicited Gia Agustin PA 09/26/2025 2:40 [place] [address] Jefferson Howard DO Excessive growth affecting management of in second trimester, single or unspecifiedfetus ([facility]) (Primary Dx); Second trimester ([facility]); 27 weeks gestation of ([facility]); Gastroesophageal reflux disease, unspecified whether esophagitis present; Right ovarian cyst; Nausea; PCOS (polycystic ovarian syndrome); Extrinsic asthma without complication, unspecified asthma severity, unspecified whether persistent ([facility]); History of hypothyroidism; Polyhydramnios affecting ([facility])09/26/2025amboo flowsheet NOMS Emma Buchanan [facility] [place] [address] Jefferson Howard, 09/12/2025linisync Result Encounter NOMS External Department Unsolicited Jefferson Howard, 08/31/2025 11:20 AM ESTRoutine NOMS [place] [address] Gia Agustin PA Second trimester ([facility]); 23 weeks gestation of ([facility]); Diabetes mellitus screening; Urinary tract infection without hematuria, site /12/2025amb flowsheet NOMS [place] [address] Gia Agustin PA 08/18/2025bstract NOMS Emma JOSEPHN [place] [address] Jefferson Howard, 08/18/2025Orders Only NOM[facility] [place] [address] Janneth Paul MA 08/10/2025 11:00 AM EDTAncillary Procedure NOMS Emma [place] [facility] [address] Screening, , for anatomic survey ([facility])08/02/2025 1:40 PM [place] [address] Jefferson Howard, Second trimester ([facility]); 19 weeks gestation of ([facility]); Screening, , for anatomic survey ([facility]); LGSIL of cervix of undetermined rzabouqkcila40/14/2025linisync Result Encounter NOMS External Department Unsolicited AnitaJefferson, DO 08/02/2025amboo flowsheet NOMS Emma WORLEY [address] [place] [address] [place] [address] Jefferson Howard, DO 07/25/2025linisync Result Encounter [...] relatives?Twice a week03/02/2024How often do you attend buddhist or presybeterian services?Never 03/02/2024ctive Member of Clubs or OrganizationsNot [...] to strenuous exercise (like a brisk walk)?Patient qoknjlei35/14/2024On average, how many minutes do you engage in exercise at this level?Patient yaevammt30/14/2024 Housing Stability Vital SignAnswerDate RecordedIn the last 12 months, was there a time when you were not able to pay the mortgage or rent on time?No03/02/2024In the last 12 months, how many places have you lived?In the last 12 months, was there a time when you did not have a steady place to sleep or slept in [place] (including now)?No05/14/2024Estimated Date of Delivery YtseizpuWku79/09/2026Based on Ultrasound, FHR- 136Sex and Gender Information ValueDate RecordedSex Assigned at BirthNot on fileLegal TevUkyjla96/15/2023 8:14 PM EDTGender IdentityNot on fileSexual OrientationNot on file Last Filed Vital Signs Vital SignReadingTime TakenCommentsBlood Ufidabbt986/8410/11/2025 2:03 PM EST Tksjo11166/13/2024 1:21 PM EGDTzqwhnaetvy02.6 ??C (97.8 ??F)06/01/2024 1:21 PM EDTRespiratory Mgdh648806/01/2024 1:21 PM EDTOxygen Idnjjxoqbm85%06/01/2024 1:21 PM EDTInhaled Oxygen Concentration--Mriqhr564 kg (277 lb)10/11/2025 2:03 PM EST Vxqjvl602.9 cm (5' 1 )06/01/2024 1:21 PM EDTBody Mass Index52.3408 1:21 PM EDT Plan of Treatment DateTypeDepartmentCare Team (Latest Contact Info)Ayozxjlpsde33/08/2026 1:30 PM ESTRoutine NOMS Emma [facility] [address] [place] [address] Shanell Monroe, CONDUCTOR SLEEPING CAR [address] [place] [address] Health MaintenanceDue DateLast DoneCommentsPneumococcal Vaccine: Pediatrics (0 to 5 Years) and At-Risk Patients (6 to 64 Years) (1 of 2 - PCV)2019 Influenza Vaccine (#1)2025 Procedures Procedure NamePriorityDate/TimeAssociated DiagnosisCommentsPOCT URINALYSIS IEVGJFJMMnltflg57/23/2025 2:12 PM EST 29 weeks gestation of ([facility]) Third trimester ([facility]) ALL THYROID STIM EJIBNFTRksxsnm68/10/2025 11:28 AM EST GLUCOSE 1 OSELFzuyqpw30/10/2025 11:28 AM EST ALL CBC WITH AUTO YQLXOfmpwhb46/10/2025 11:28 AM EST TBH UA (CLEAN/CATCH) WEDGER AND GLUER/MICRO IF IND.Alscvvc7909/12/2025 9:30 AM EST URINARY TRACT INFECTION (HTRX)Jyjgcsh3108/31/2025 12:03 PM EST POCT URINALYSIS GCWYMFMNFcyfeqy11/12/2025 11:16 AM EST Second trimester ([facility]) US OB 14+ WEEKS ANATOMY EQIRZdoghyv41/22/2025 11:57 AM EDT Screening, , for anatomic survey ([facility]) IGP,APTIMA HPV,AGE FUOTCfzyqbt58/14/2025 1:40 PM EDT PAP TEST, BEDKSTNPGihvaes65/14/2025 12:00 AM EDTAFP, SERUM, OPEN SPINA BIFIDA Ramxuud4507/25/2025 12:10 PM EDT from Last 3 Months [...] Location / LateralityCollection Method / VolumeCollection TimeReceived GhvbSccvz13/23/2025 2:12 PM EST Narrative Authorizing ProviderResult TypeResult StatusCorejosué BagleyAnita DOPOINT OF CARE TEST ENTER/EDIT ORDERABLESFinal Result * GLUCOSE 1 HOUR (09/28/2025 11:28 AM EST)ComponentValueRef RangeTest Method Analysis TimePerformed AtPathologist SignatureGLUCOSE 1 VRNM027<130 mg/dLTBH Specimen (Source)Anatomical Location / LateralityCollection Method / Volume Collection TimeReceived Time09/28/2025 11:28 AM EST09/28/2025 11:28 AM EST Narrative [facility] - 09/28/2025 11:51 AM EST Authorizing ProviderResult TypeResult StatusAmy Vamsi PAL BLOOD ORDERABLES Final ResultPerforming OrganizationAddressCity/State/ZIP CodePhone Number [facility] * ALL THYROID STIM HORMONE (09/28/2025 11:28 AM EST)ComponentValueRef RangeTest MethodAnalysis TimePerformed AtPathologist SignatureTHYROID STIMULATING HORMONE1.5780.358 - 3.740 uIU/mLTBHSpecimen (Source)Anatomical Location / LateralityCollection Method / VolumeCollection TimeReceived Time09/28/2025 11:28 AM EST09/28/2025 11:28 AM EST Narrative [facility] - 09/28/2025 12:04 PM EST Authorizing ProviderResult TypeResult StatusShanell Monroe NPCLINISYNCFinal ResultPerforming OrganizationAddressCity/State/ZIP CodePhone Number [facility] * (ABNORMAL) ALL CBC WITH AUTO DIFF (09/28/2025 11:28 AM EST)ComponentValueRef RangeTest MethodAnalysis TimePerformed AtPathologist SignatureTBH WBC7.24.0 - 11.0 10 3/uLTBHTBH RBC3.68(L)4.20 - 5.40 10 6/uLTBHTBH HGB10.5(L)12.0 - 16.0 g/dLTBHTBH HCT32.6(L)36.0 - 48.0 %TBHTBH MCV88.681.0 - 99.0 fLTBHTBH MCH28.5 26.7 - 34.0 pgTBHTBH MCHC32.229.9 - 35.2 g/dLTBHTBH RDW13.211.0 - 15.0 %TBHTBH OSG235330 - 450 10 3/uLTBHTBH MPV10.99.5 - 13.5 [...] 11:44 AM EST Authorizing ProviderResult TypeResult StatusAmy [place] PACLINISYNCFinal Result Performing OrganizationAddressCity/State/ZIP CodePhone Number [facility] TB * TB[facility] UA (CLEAN/CATCH) WEDGER AND GLUER/MICRO IF IND. (09/12/2025 9:30 AM EST)ComponentValue Ref [...] Anita DOCLINISYNCFinal Result Performing OrganizationAddressCity/State/ZIP CodePhone Number [facility] * URINARY TRACT INFECTION (HTRX) (08/31/2025 12:03 PM EST)ComponentValueRef RangeTest MethodAnalysis TimePerformed AtPathologist SignatureACINETOBACTER PZTTBIBV938.961 - 24.689 ppm09/02/2025 8:22 AM ESTHealthTrackRx at [facility] ACINETOBACTER BAUMANIINot Fcejjwtu15.961 - 24.689 ppm09/02/2025 8:22 AM EST [facility] at LabPortCITROBACTER JBWJZRTT667.000 - 32.015 ppm09/02/2025 8:22 AM ESTHealthTrackRx at LabPortCITROBACTER FREUNDIINot Nlezeqwp19.000 - 32.015 ppm09/02/2025 8:22 AM ESTHealthTrackRx at LabPortENTEROBACTER AEROGENES, ZJWLZVJ003.000 - 32.290 ppm09/02/2025 8:22 AM ESTHealthTrackRx at LabPortENTEROBACTER AEROGENES, CLOACAENot Oifbzzur71.000 - 32.290 ppm 09/02/2025 8:22 AM ESTHealthTrackRx at LabPortENTEROCOCCUS FAECALIS, FAECIUM0 26.000 - 33.043 ppm09/02/2025 8:22 AM ESTHealthTrackRx at LabPortENTEROCOCCUS FAECALIS, FAECIUMNot Azfozbsq80.000 - 33.043 ppm09/02/2025 8:22 AM EST [facility] at LabPortESCHERICHIA GSDZ917.000 - 28.500 ppm09/02/2025 8:22 AM ESTHealthTrackRx at LabPortESCHERICHIA COLINot Njwsmywd22.000 - 28.500 ppm 09/02/2025 8:22 AM ESTHealthTrackRx at LabPortKLEBSIELLA PNEUMONIAE, OXYTOCA0 23.000 - 31.865 ppm09/02/2025 8:22 AM ESTHealthTrackRx at LabPortKLEBSIELLA PNEUMONIAE, OXYTOCANot Gujatydu45.000 - 31.865 ppm09/02/2025 8:22 AM EST [facility] at LabPortMORGANELLA YDEVBINC003.961 - 24.689 ppm09/02/2025 8:22 AM ESTHealthTrackRx at LabPortMORGANELLA MORGANIINot Aylmtmqz02.961 - 24.689 ppm09/02/2025 8:22 AM ESTHealthTrackRx at LabPortPROTEUS MIRABILIS, VULGARIS0 23.000 - 28.500 ppm09/02/2025 8:22 AM ESTHealthTrackRx at LabPortPROTEUS MIRABILIS, VULGARISNot Kclwyfhv40.000 - 28.500 ppm09/02/2025 8:22 AM EST [facility] at LabPortPSEUDOMONAS TKKMFMYSUC318.000 - 31.801 ppm09/02/2025 8:22 AM ESTHealthTrackRx at LabPortPSEUDOMONAS AERUGINOSANot Nfqlfyjx77.000 - 31.801 ppm09/02/2025 8:22 AM ESTHealthTrackRx at LabPortSTAPHYLOCOCCUS AUREUS0 26.000 - 31.595 ppm09/02/2025 8:22 AM ESTHealthTrackRx at [facility] STAPHYLOCOCCUS AUREUSNot Kwvajfdf70.000 - 31.595 ppm09/02/2025 8:22 AM EST [facility] at LabPortSTREPTOCOCCUS AGALACTIAE (GROUP B STREP)026.000 - 32.435 ppm09/02/2025 8:22 AM ESTHealthTrackRx at LabPortSTREPTOCOCCUS AGALACTIAE (GROUP B STREP)Not Qxzimjoo84.000 - 32.435 ppm09/02/2025 8:22 AM ESTHealthTrackRx at LabPortCANDIDA ALBICANS, PARAPSILOSIS, RKAZYBYHJF944.000 - 30.347 ppm09/02/2025 8:22 AM ESTHealthTrackRx at LabPortCANDIDA ALBICANS, PARAPSILOSIS, TROPICALISNot Oqgxnuue67.000 - 30.347 ppm09/02/2025 8:22 AM EST [facility]PortCANDIDA MIVPRZRY554.000 - 31.618 ppm09/02/2025 8:22 AM ESTHealthTrackRx at LabPortCANDIDA GLABRATANot Qfgcnnep11.000 - 31.618 ppm 09/02/2025 8:22 AM ESTHealthTrackRx at LabPortCANDIDA XDGJYP647.000 - 30.873 ppm09/02/2025 8:22 AM ESTHealthTrackRx at LabPortCANDIDA KRUSEINot Detected 23.000 - 30.873 ppm09/02/2025 8:22 AM ESTHealthTrackRx at LabPortSERRATIA VDRXJQTNAW706.000 - 31.581 ppm09/02/2025 8:22 AM ESTHealth[facility]Rx [facility] SERRATIA MARCESCENSNot Xjftwadd51.000 - 31.581 ppm09/02/2025 8:22 AM EST [facility] at LabPortSTREPTOCOCCUS PYOGENES (GROUP A STREP)019.961 - 24.689 ppm09/02/2025 8:22 AM ESTHealthTrackRx at LabPortSTREPTOCOCCUS PYOGENES (GROUP A STREP)Not Yqmsprju72.961 - 24.689 ppm09/02/2025 8:22 AM ESTHealthTrackRx at LabPortSTAPHYLOCOCCUS EPIDERMIDIS, HAEMOLYTICUS, LUGDUNENSIS, SAPROPHYTICUS (USLJS128.961 - 24.689 ppm09/02/2025 8:22 AM ESTHealth[facility] STAPHYLOCOCCUS EPIDERMIDIS, HAEMOLYTICUS, LUGDUNENSIS, SAPROPHYTICUS (URINANot Uscuvrwj10.961 - 24.689 ppm09/02/2025 8:22 AM ESTHealth[facility] STAPHYLOCOCCUS EPIDERMIDIS, HAEMOLYTICUS, LUGDUNENSIS, SAPROPHYTICUS (URINA0 19.961 - 24.689 ppm09/02/2025 8:22 AM [facility] STAPHYLOCOCCUS EPIDERMIDIS, HAEMOLYTICUS, LUGDUNENSIS, SAPROPHYTICUS (URINANot Rtrbufwt11.961 - 24.689 ppm09/02/2025 8:22 AM ESTHealth[facility]Rx [facility] Specimen (Source)Anatomical Location / LateralityCollection Method / Volume Collection TimeReceived YjxfBbdcr73/12/2025 12:03 PM EST09/02/2025 1:46 AM EST Narrative Authorizing ProviderResult TypeResult StatusAmy Vamsi PAL BLOOD ORDERABLES Final ResultPerforming OrganizationAddressCity/State/ZIP CodePhone Number [facility] [address] [address] * US OB 14+ weeks anatomy scan [...] at: 01 =G ?[facility] ?? [address] [place] ??[address] ?? Aleida Colon MD, IGP, RFX APTIMA HPV ASCUNote.TBHComment: ?? TESTS ? RESULT ??FLAG ??UNITS ?REF RANGE ??LAB DIAGNOSIS: ?02 ?? NEGATIVE FOR INTRAEPITHELIAL LESION OR MALIGNANCY. Specimen adequacy: ?02 ?? Satisfactory for evaluation. ??No endocervical component is identified. ?? An endocervical component is not commonly seen in the patient. Performed by: ? 02 ?? Cynthia Smith Warehouse Assistant (ASCP) . ? 02 Note: ? Note [...] pap test was interpreted ?? using the Route4Me(R) Genius(TM) Cervical Algorithm whole ?? slide imaging system. . ? 02 ?? The HPV DNA reflex criteria were not met with this specimen ?? result therefore, no HPV testing was performed. ?FLAG LEGEND: ?L-Low Normal,H-High Normal,LL-Alert Low,HH-Alert High <-Panic Low,>-Panic High,A-Abnormal,AA-Critical Abnormal Performed at: 02 WB ?[facility] ?? [address] [place], [place] ??[address] ?? Aleida Colon MD, Performed at: ??=G - [facility] [address] [place], [place] ??[id number] Welding Equipment Sales Representative: Aleida Colon MD, Phone: ??[phone] Performed at: ??WB - [facility] [address] ??[id number] Welding Equipment Sales Representative: Aleida Colon MD, Phone: ??[phone] Specimen (Source)Anatomical Location / LateralityCollection Method / [...] within 10 days. MATERNAL AGE AT EDD25.1. yrTBHRACECaucasian.ZGXUGUKMB821. lbsTBHINSULIN DEP DIABETESNo.TBHMULTIPLE GESTATIONNo.TBHAFP VALUE31.7. ng/mLTBHAFP MOM1.07.TBHOSBR RISK 1 BC8967.TBHINTERPRETATIONComment.TBHComment: Interpretation: Screen Negative This result is screen [...] Customer Services to discuss available options. ??The [place] [employer] recommends amniocentesis be offered to women age 35 and older. COMMENT:Comment.TBHComment: Caitlin Palafox, Ph.D., [facility] Director References: Available Upon Request. Multiples Of Median Cutoffs ?For AFP Elevations Caro ?? 2.5 ? Black ?2.8 IDD ? 2.0 ? Twins ?4.5 ?Abbreviation Definitions IDD - Insulin Dep Diabetes OSBR - Open Spina Bifida Risk For further inquiries contact [employer] [facility] at [phone]. This test was developed and its performance characteristics determined by [employer]. It has not been cleared or approved by the Food and Drug Administration. Performed at: ??TG - [facility] [address] [place], [place] ??[id number] Welding Equipment Sales Representative: Leonidas Oneill [facility], Phone: ??[phone] Specimen (Source)Anatomical Location / LateralityCollection Method / Volume Collection TimeReceived Time07/25/2025 12:10 PM EDT1 12:14 PM EDT Narrative [facility] - 07/26/2025 11:07 PM EDT N N ULTRASOUND [id number] 1 15 N 1 Y 285 N N N N N White/ Authorizing ProviderResult TypeResult StatusAmy VamsiOhio Valley Hospital BLOOD ORDERABLES Final ResultPerforming OrganizationAddressCity/State/ZIP CodePhone Number [facility] from Last 3 Months Insurance Care Teams Team MemberRelationshipSpecialtyStart DateEnd Date Manuel Schwartz MD [address] [place] [address] [facility]03/02/24 Manuel Schwartz MD [address] [place] [address] [facility]07/20/24
--- OUTSIDE RECORDS SUMMARY | 2025-10-17 09:35 | XMS_ITS | Clinical Summary ---
Author Organization My Single Point tem Address [id number] [address] [place] [address] Care Team Providers Care Manager Of School Name Role Phone Manuel Schwartz MD Primary Care Provider [phone] Allergies Active AllergyReactionsCriticalityNoted DateCommentsPenicillinsHivesRashLow 2000 Other Reaction(s): [...] needed for nausea or vomiting.09/22/2025Discontinued Encounters DateTypeDepartmentCare HxwrZjntiiorlcw08/05/2025Orders Only [facility] Certified Nurse [employer] [facility] [place] [address] [facility] [address] [place] [address] External, Scanning Provider 09/22/2025 10:50 AM ESTTelemedicine Maternal Medicine [place] [address] [facility] [address] [place] [id number] Andi Weller MD Polyhydramnios affecting (Primary Dx); Severe obesity due to excess calories affecting , antepartum ([facility]); 26 weeks gestation of ; macrosomia affecting management of mother, shhctahfor08/04/2025Travel 09/21/2025Telephone Maternal- Medicine at [place] [address] [place] [address] Erica Cardoso RN 09/05/2025bstract Maternal- Medicine at [place] [address] [place] [address] External, Scanning Provider 08/23/2025 7:25 PM EST - 08/23/2025 9:27 PM ESTHospital Encounter [facility] [address] [place] [address] Ny Lewis, UROGYNAECOLOGIST-CNM Discharge Disposition: Home08/23/20250880Ikxgrr15/04/2025 - 08/23/2025 7:18 PM EST Emergency [facility] - Emergency [address] [place] [id number] Discharge Disposition: ED Dismiss - Never Arrivedfrom [...] as a part of a household?No 08/23/2025hildcareAnswerDate HzfrggegNkjkeralpTcvdgdm03/11/2019EmploymentAnswer Date QfywwnmiZvxekpoysfPxubblh17/11/2019Hunger ScreeningAnswerDate Recorded Within the past 12 months we worried whether our food would run out before we got money to buy more.Never True09/22/2025Within the past 12 months the food we bought just didn't last and we didn't have money to get more.Never True 09/22/2025Purpose - LifeAnswerDate RecordedPurpose and direction in lifeUnknown 1Estimated Date of DcvqelfaRyglkdkeHsw80/09/2026Based on UltrasoundSex and Gender InformationValueDate RecordedSex Assigned at BirthNot on fileLegal JeoEiflhr70/04/2015 6:13 PM EDTGender IdentityNot on fileSexual OrientationNot on file Last Filed Vital Signs Vital SignReadingTime TakenCommentsBlood Bcjkgfcx231/80111/23/2024 10:53 AM EST Syqbw40970 7:34 PM OXTXpqmvdzgsaf55.7 ??C (98 ??F)08/23/2025 7:34 PM EST Respiratory Zjhb835410/23/2024 7:34 PM ESTOxygen Hrojlfghdi85%04/14/2025 2:13 AM EDTInhaled Oxygen Concentration--Ihwkal255.7 kg (283 lb 12.8 oz)09/22/2025 10:53 AM SJYXmbngm120 cm (5' 1.81 )09/22/2025 10:53 AM ESTBody Mass Index52.23 09/22/2025 10:53 AM EST Plan of Treatment DateTypeDepartmentCare Team (Latest Contact Info)Majvzpbjybx23/13/2026 2:15 PM ESTAppointment [facility] - Ultrasound [address] [place] [address] Health MaintenanceDue DateLast DoneCommentsDepression Iyddgzzpu24/11/2013dult BMI Follow Up Plan2018Pap Smear2Chlamydia Bpgustffj47/12/2023 2DTaP,Tdap and Td Vaccines (7 - Td or Tdap)/10/2012, 10/31/2004, 02/02/2002, Additional history existsInfluenza Rtndabb4406/20/2025 08/02/2016RSV ( or age 60+ yrs) (1 - Risk 1-dose series) 6Adult BMI Hgosubvdh20/04/98994111/23/2024Tobacco Pontirdcf98/04/2026 09/22/2025 Medical Devices Not on file Procedures Procedure NamePriorityDate/TimeAssociated DiagnosisCommentsUS [facility] COMPREHENSIVE ANATOMIC NCTOJDPnvngmm39/04/2025 10:59 AM EST Screening, , for anatomic survey EXTRA TUBES SST GENVdkgjfp35/04/2025 8:24 PM EST EXTRA LGFPQSiysmgz78/04/2025 8:24 PM EST BASIC METABOLIC NOTPBELIV03/04/2025 8:20 PM EST CBC (NO DIFF)STAT110/23/2024 8:20 PM EST ACKWNHQZDTKKAE76/04/2025 8:03 PM EST CHLAMYDIA/GC BY PCR PAYAM ATFRELIQ26/12/2022 7:40 AM EST from Last 3 Months or Most Recently Relevant to Health Maintenance Results * [facility] COMPREHENSIVE ANATOMIC SURVEY (09/22/2025 10:59 AM EST)Anatomical RegionLateralityModalityOB-GYNUltrasoundSpecimen (Source)Anatomical Location / LateralityCollection Method / VolumeCollection TimeReceived Time09/22/2025 9:53 AM EST Narrative 09/22/2025 11:11 AM EST NAME: ??HEATHER HAMMOND : 2000 SEX: F Accession Number: [id number] ORDERING PHYSICIAN: ANDI WELLER REFERRING PHYSICIAN: ZULLY MACEDO Coding Procedures ? 01970: Ultrasound, uterus, real time with image documentation, and maternal evaluation ? plus detailed anatomic examination, transabdominal approach;single or first gestation ? 19697: OB Transvaginal Indication Screening for Anatomic Survey , Screening for cervical length , Obesity in , Depression, Polyhydramnios. History OB History ? 3. Para 2 ? B1C1C0L4 Current Cell free DNA ?Low Risk analysis [...] diagnostic quality could not be obtained. Medical Manugrapher Manugrapher declined Caro . Number of fetuses: 1 [...] (oz) ? 1 oz EFW by: ?Hadlock (NHG-JV-WF-FL) Extended Tibia 49.0 mm 29w 3d >99% Alfonso Government Program Manager ? 5.2 mm CM ? 7.5 mm [...] ?? Mandible. Heart / Thorax RVOT view. 4-vnwjyd-kbpulqh view. Aortic arch view. Bicaval view. Great [...] consistent with mild polyhydramnios. Recommendations Please see [facility] documentation from today. The patient is scheduled in four to six week(s) to complete anatomic survey. Subsequent follow up or other follow up as clinically determined by primary OB provider unless otherwise specified by [facility]. Results forwarded to ordering provider so they can follow up with the patient as necessary. Procedure Note Andi Weller MD - 09/22/2025 NAME: HEATHER HAMMOND : 2000 SEX: F Accession Number: [id number] ORDERING PHYSICIAN: ANDI WELLER REFERRING PHYSICIAN: ZULLY MACEDO Coding Procedures 80863: Ultrasound, uterus, real time with image documentation, and maternal evaluation plus detailed anatomic examination, transabdominalapproach;single or first gestation 96165: OB Transvaginal Indication Screening for Anatomic Survey , Screening for cervical length , Obesity in , Depression, Polyhydramnios. History OB History 3. Para 2 F0Y8V8J4 Current Cell free DNA Low Risk analysis [...] diagnostic quality could not be obtained. Medical Manugrapher Manugrapher declined Caro . Number of fetuses: 1 [...] EFW (oz) 1 oz EFW by: Hadlock (JEI-MT-TT-FL) Extended Tibia 49.0 mm 29w 3d >99% Alfonso Government Program Manager 5.2 mm CM 7.5 mm 80% Nicolaides [...] Face Mandible. Heart / Thorax RVOT view. 0-lgygig-ctdtkgw view. Aortic arch view. Bicavalview. Great vessels. [...] EST)ComponentValueRef RangeTest MethodAnalysis TimePerformed AtPathologist SignatureExtra TubeAuto Jrcruyhd48/04/2025 10:01 PM ESTPROMEDICA AURORA LAS ENCINAS HOSPITALpecimen (Source)Anatomical Location / LateralityCollection Method / VolumeCollection TimeReceived TimeBloodVenous blood / Scqicvq8408/23/2025 8:24 PM EST08/23/2025 8:24 PM EST Narrative Authorizing ProviderResult TypeResult StatusNy Lewis UROGYNAECOLOGIST-CNMLAB BLOOD ORDERABLESFinal ResultPerforming OrganizationAddressCity/State/ZIP CodePhone Number [address] [address], * (ABNORMAL) CBC without diff (08/23/2025 8:20 PM EST)ComponentValueRef Range Test MethodAnalysis TimePerformed AtPathologist SignatureWBC8.94 - 11 X10^9/L 08/23/2025 8:32 PM ESTWESTERN RESERVE HOSPITALRBC Count3.62(L)3.8 - 5.2 X10^12/L110/23/2024 8:[address] [facility] Infuzgthye95.6(L)11.7 - 15.5 g/dL08/23/2025 8:32 PM ESTWESTERN RESERVE HOSPITALHematocrit31.2(L)35 - 47 %08/23/2025 8:32 PM ESTWESTERN RESERVE HOSPITALMCV8680 - 100 fL08/23/2025 8:32 PM ESTWESTERN RESERVE HOSPITALMCH29.227 - 34 pg08/23/2025 8:[address] [facility] CENTERMCHC33.832 - 36 g/dL08/23/2025 8:32 PM ESTWESTERN RESERVE HOSPITALRDW13.511.5 - 15 %08/23/2025 8:[address] [facility] MED[facility] CENTERPlatelet Gzltl825471 - 450 X10^9/L110/23/2024 8:32 PM ESTWESTERN RESERVE HOSPITALMPV9.27 - 12 fL08/23/2025 8:[address] [facility]ITALpecimen (Source)Anatomical Location / LateralityCollection Method / VolumeCollection TimeReceived TimeBloodVenous blood / UnknownVenipuncture / Dveqdyr2408/23/2025 8:20 PM EST08/23/2025 8:23 PM EST Narrative Authorizing ProviderResult TypeResult StatusKathleen S Debbie UROGYNAECOLOGIST-CNMLAB BLOOD ORDERABLESFinal ResultPerforming OrganizationAddressCity/State/ZIP CodePhone Number [address] [place] [address], * (ABNORMAL) Basic Metabolic Panel (08/23/2025 8:20 PM EST)ComponentValueRef RangeTest MethodAnalysis TimePerformed AtPathologist RcqfidimsRFVYVN534776 - 146 mmol/L110/23/2024 8:37 PM ESTPROGOOD SAMARITAN HOSPITALPOTASSIUM 3.73.5 - 5.0 mmol/L110/23/2024 8:37 PM ESTPROGOOD SAMARITAN HOSPITAL XADGZFOG02092 - 109 mmol/L110/23/2024 8:37 PM ESTPROGOOD SAMARITAN HOSPITALCARBON XHKCBFM49(L)22 - 32 mmol/L110/23/2024 8:37 PM ESTWESTERN RESERVE HOSPITALANION EYF300 - 15 mmol/L110/23/2024 8:37 PM EST [facility]OSPITALBLOOD UREA SHOMBOMM20 - 23 mg/dL08/23/2025 8:37 PM ESTWESTERN RESERVE HOSPITALCREATININE0.530.40 - 1.00 mg/dL 08/23/2025 8:[address] [facility] CENTERComment:METHOD TRACEABLE TO IDMS CPQUKOUOKJLNBYF426(H)65 - 99 mg/dL08/23/2025 8:37 PM EST [facility] HOSPITALCALCIUM8.3(L)8.5 - 10.5 mg/dL08/23/2025 8:[address] [facility] MEDICAL CENTEREGFR Non-Race Dependent>90>=60 ml/min/1.73sq.m110/23/2024 8:[address] [facility] Comment: eGFR not reported due to non-numeric value for Creatinine. Reported eGFR is based on the CKD-EPI 2020 equation that does not use a race coefficient. Specimen (Source)Anatomical Location / LateralityCollection Method / Volume Collection TimeReceived TimeBloodVenous blood / UnknownVenipuncture / Unknown 08/23/2025 8:20 PM EST08/23/2025 8:23 PM EST Narrative Authorizing ProviderResult TypeResult StatusKatadelaide Lewis UROGYNAECOLOGIST-CNMLAB BLOOD ORDERABLESFinal ResultPerforming OrganizationAddressCity/State/ZIP CodePhone Number [facility] [address] [place] [address], * (ABNORMAL) Urinalysis (08/23/2025 8:03 PM EST)ComponentValueRef RangeTest MethodAnalysis TimePerformed AtPathologist SignatureCOLORYellowYellow 08/23/2025 8:41 PM ESTPROMEDIUSC KENNETH NORRIS JR. CANCER HOSPITALTURBIDITYHazy(A)Clear 08/23/2025 8:41 PM ESTST. ELIZABETH HOSPITALPECIFIC GRAVITY1.020 1.003 - 1.4763408/23/2025 8:41 PM ESTPROGOOD SAMARITAN HOSPITALNITRITE QbqbbwhmQtfozils33/04/2025 8:[address] [facility] PH,URINE7.05.0 - 8.511 8:[address] [facility] LEUKOCYTE WQCUILJCXjhsaoleTjkgzudy31/04/2025 8:41 PM ESTPROGOOD SAMARITAN HOSPITALPROTEINTrace(A)Enmhekrw04/04/2025 8:41 PM ESTPROMEDIUSC KENNETH NORRIS JR. CANCER HOSPITALKETONES (URINE)RpmtqxjqRrfswihz23/04/2025 8:41 PM EST [facility]OSPITALUROBILINOGEN>=8.0 eu/dL(A)0.2 eu/dL, 1.0 eu/dL08/23/2025 8:41 PM ESTWESTERN RESERVE HOSPITALBILIRUBIN (URINE)HwtxxareOawthbuw98/04/2025 8:41 PM ESTWESTERN RESERVE HOSPITALBLOOD/WEJZdjownlbPwcmrqkx95/04/2025 8:41 PM ESTWESTERN RESERVE HOSPITALAMORPHOUS SEDIMENTPresent(A)None08/23/2025 8:[address] [facility]IZABETH HOSPITALQUAMOUS GPCUYWUETE05 - 511 8:41 PM ESTPROGOOD SAMARITAN HOSPITALGLUCOSE (URINE)NegativeNegative, 250 mg/dL08/23/2025 8:41 PM ESTST. ELIZABETH HOSPITALpecimen (Source)Anatomical Location / LateralityCollection Method / VolumeCollection TimeReceived TimeUrineUrine specimen collection, clean catch / Unknown 08/23/2025 8:03 PM EST08/23/2025 8:23 PM EST Narrative Authorizing ProviderResult TypeResult StatusGeorgieadelaide Lewis UROGYNAECOLOGIST-CNMURINE ORDERABLESFinal ResultPerforming OrganizationAddressty/State/ZIP CodePhone Number [facility] [address] [place] [address], * Chlamydia/GC by PCR Payam Swab (10/31/2021 7:40 AM EST)ComponentValueRef Range Test MethodAnalysis TimePerformed AtPathologist SignatureSpecimen source LNNSSHE0610/31/2021 1:29 PM [facility] LABComment: SWAB Corrected on 10/31 AT 1329: Previously reported as vaginal Chlamydia DNA PCRNegativeNegative^Txeolbkk94/13/2022 11:35 AM [facility] LABComment: ? Chlamydia trachomatis not detected by nucleic acid amplification. This does not exclude the possibility of infection because results are dependent on adequate specimen collection. ? Gonorrhea DNA PCRNegativeNegative^Lqxsblou29/13/2022 11:35 AM [facility] LABComment: ? Neisseria gonorrhoeae not detected by nucleic acid amplification. This does not exclude the possibility of infection because results are dependent on adequate specimen collection. ? Specimen (Source)Anatomical Location / LateralityCollection Method / Volume Collection TimeReceived HdvmDUYZ30/12/2022 7:40 AM EST10/31/2021 1:29 PM EST Narrative Authorizing ProviderResult TypeResult StatusValdemar Pelletier MDMICROBIOLOGY - GENERAL ORDERABLESEdited Result - FinalPerforming OrganizationAddress City/State/ZIP CodePhone Number [facility] [address] [place] [address] from Last 3 Months or Most Recently Relevant [place] [id number] Care Teams Team MemberRelationshipSpecialtyStart DateEnd Date Manuel Schwartz MD PCP - GeneralFamily Medicine01/21/19
--- OUTSIDE RECORDS SUMMARY | 2025-10-17 09:35 | XMS_ITS | Encounter Summary ---
Author Organization [facility] Address [address] [place] [address] Care Team Providers Care Chart Changer Name Role Phone Manuel Schwartz MD Primary Care Provider [phone] Manuel Schwartz MD Unavailable Encounter Details DateTypeDepartmentCare Team (Latest Contact Info)Ofemheedfuc52/23/2025amboo flowsheet [facility] [address] [place] [address] Jefferson Howard DO [address] [place] [address] Social History Tobacco UseTypesPacks/DayYears UsedDateSmoking Tobacco: NeverSmokeless Tobacco: NeverSocial Connection and Isolation PanelAnswerDate RecordedIn a typical week, how many times do you talk on the phone with family, friends, or neighbors?Twice a week03/02/2024How often do you get together with friends or relatives?Twice a week03/02/2024How often do you attend denominational or yazidi services?Never 03/02/2024ctive Member of Clubs [...] to strenuous exercise (like a brisk walk)?Patient ruyjwvfh13/14/2024On average, how many minutes do you engage in exercise at this level?Patient ygqojuow31/14/2024 Housing Stability Vital SignAnswerDate RecordedIn the last 12 months, was there a time when you were not able to pay the mortgage or rent on time?No03/02/2024In the last 12 months, how many places have you lived?In the last 12 months, was there a time when you did not have a steady place to sleep or slept in ashelter (including now)?No03/02/2024Estimated Date of Delivery JayzdrkiQlg44/09/2026Based on Ultrasound, FHR- 136Sex and Gender Information ValueDate RecordedSex Assigned at BirthNot on fileLegal OblVpkguh22/15/2023 8:14 PM EDTGender IdentityNot on fileSexual OrientationNot on filedocumented as of this encounter Plan of Treatment DateTypeDepartmentCare Team (Latest Contact Info)Ogwhhoptpyx99/08/2026 1:30 PM ESTRoutine [facility] [address] [place] [address] Shanell Monroe NP [address] [place] [address] documented as of this encounter Visit Diagnoses Not on filedocumented in this encounter Care Teams Team MemberRelationshipSpecialtyStart DateEnd Date Manuel Schwartz MD [address] [place] [address] PCP - GeneralFamily Medicine03/02/24 Manuel Schwartz MD [address] [place] [address] [employer]10documented as of this encounter
--- OUTSIDE RECORDS SUMMARY | 2025-10-17 09:36 | XMS_ITS | CCD ---
Author Organization [facility] Care Team Providers Care Phosphatic Fertilizer Supervisor Name Role Phone DEMETRIOC, DR WILLS [...] Admitting Unavailable HEMANTHKRISHNA Consulting Unavailable NADERER, DR MANEUL Souza Primary Care Unavailable HEMANTH, KRISHNA Attending [...] Unavailable ANITA ., DR ANDREA Attending Unavailable BELLINGHAM, DR AISHWARYA Luis Consulting Unavailable NADERER, DR [...] Care Provider Krishna Saxena MD Attending Provider [phone] Jefferson Howard DO Attending Provider Manuel Noel MD Primary Care Provider Manuel Noel MD Unavailable Manuel Noel MD Unavailable MANUEL NOEL Primary Care Unavailable MYLENE SAMPSON Attending Unavailable NADERER, MANUEL Primary Care Unavailable MAO PETERSEN Attending Unavailable NADERER, MANUEL Primary Care Unavailable FRIES, WONG S Admitting Unavailable FRIES, WONG S Attending Unavailable MANUEL NOEL Primary Care Unavailable Tae ([facility]) Bello BENTON Attending Provider [phone] Hay ([facility]), Bello Bal Admitting Unavailable Hay ([facility]), Bello Bal Attending Unavailable Manuel Noel [...] Facility (2 sources)Penicillins; Translations: [PENICILLINS]Drug allergy (disorder) 90-43-5747[facility] Repository (20 sources)PenicillinsDrug Nglhahfzwzn19-81-6280RiozfwhWADI [facility] (1 source)PenicillinsDrug allergy (disorder)78-72-1936[facility] Repository Medications Current Medications MedicationDrug Class(es)DatesSig (Normalized)Sig (Original)200 actuat albuterol 0.09 mg/actuat dry powder inhaler (16 sources)beta2-Adrenergic AgonistStart: 41-37-5355Cjjxx: 02-27-2024 End: 79-74-8080pxgo 2 puff(s) by inhalation every four hoursalbuterol HFA 90 mcg/act inhaler Indications: Mild intermittent intrinsic asthma without status asthmaticus without complication ([facility]) Inhale 2 puffs every 4 (four) hours if needed for shortness of breath 18 g 3 02/27/2024 12/22/2024 Discontinued Start: 12-12-2021 End: 45-38-0034Pkrmjorvv Sulfate (Ventolin Hfa) 90 mcg/actuation HFA aerosol inhaler Discontinued 2 INH FEOOOWNTPQS8L as needed for sob December 12, 2021 12:00am August 24, 2024 9:32ammeclizine hydrochloride 25 mg oral tablet (4 sources)AntiemeticStart: 90-26-8637vrtdwbqccy 40 mg delayed release oral capsule (20 sources)Proton Pump InhibitorStart: 03-02-2024 End: 36-25-0036kmjp 1 capsule by mouth in the morningomeprazole (PriLOSEC) [address] capsule Indications: Gastroesophageal reflux disease, unspecified whether esophagitis present Take 1 capsule (40 mg) by mouth in the morning and 1 capsule (40 mg) in the evening. Take before meals. 60 capsule 5 05/05/2025 ActiveStart: 12-14-2021 End: 94-89-9367ifyt 1 capsule by mouth once dailyOmeprazole 20 mg Capsule,Delayed Release(Dr/Ec) Discontinued 20 MG PO Daily 30 30 0 December 14, 2021 12:00am September 07, 2024 1:33pmStart: 11-20-2017 End: 30-93-5768Tezzbcevjs 20 mg Capsule,Delayed Release(Dr/Ec) Discontinued 20 MG PO as needed for Acne November 20, 2017 12:00am December 12, 2021 2:38pm ondansetron 4 mg oral tablet (20 sources)Serotonin-3 Receptor AntagonistStart: 11-11-2024 End: 60-76-6194tqee 1 tablet by mouth every six hours [...] hydrochloride 12.5 mg oral tablet (20 sources)PhenothiazineStart: 60-58-7943hyfq 1 tablet by mouth every six hours as needed for nausea and vomiting and nausea and nauseapromethazine (Phenergan) 12.5 MG tablet Indications: Nausea Take 1 tablet (12.5 mg) by mouth every 6 (six) hours if needed for nausea or vomiting for up to 30 doses Take 1 tablet by mouth every 6 hours as needed for nausea. 30 tablet 2 07/05/2025 ActiveStart: 92-25-4124zyag 1 tablet by mouth every six hours as needed for nausea and vomiting End: 15-29-0055youytcwwsmsv (Phenergan) 12.5 MG tablet Take by mouth 05/05/2025 Discontinuedsucralfate 1000 mg oral tablet (3 sources)Aluminum ComplexStart: 38-97-7029zgzf 1 tablet by mouth twice daily Completed/Discontinued Medications MedicationDrug Class(es)DatesSig (Normalized)Sig (Original)ARIPiprazole 2 mg oral tablet (4 sources)Atypical AntipsychoticStart: 01-26-2019 End: 38-49-6083utzn 1 tablet by mouth once dailyAripiprazole 2 mg Tablet Discontinued 2 MG PO Daily 14 14 0 January 25, 2019 11:00pm December 12, 2021 2:38pmcyclobenzaprine hydrochloride 10 mg oral tablet (4 sources)Muscle RelaxantStart: 06-01-2024 End: 50-27-3949cdrm 1 tablet by mouth three times daily as needed for muscle spasmscyclobenzaprine (Flexeril) 10 MG tablet Indications: Right sided sciatica Take 1 tablet (10 mg) by mouth 3 (three) times a day as needed for muscle spasms 30 tablet 06/01/2024 11/11/2024 Discontinued(Other)Drospirenone-Ethinyl Estradiol (4 sources)Progestin, EstrogenStart: 12-12-2021 End: 94-35-8855byyp 1 tablet by mouth once dailyDrospirenone-Ethinyl Estradiol 3-0.03 mg tablet Discontinued 1 TAB PO Daily December 12, 2021 1:00am August 24, 2024 10:33amStart: 12-12-2021 End: 97-94-3539jqre 1 tablet by mouth once dailyDrospirenone-Ethinyl Estradiol 3-0.03 mg tablet Discontinued 1 TAB PO Daily December 12, 2021 12:00am August 24, 2024 9:33amDULoxetine 30 mg delayed release oral capsule (4 sources)Serotonin and Norepinephrine Reuptake InhibitorStart: 12-14-2021 End: 30-12-8886cwhb 1 capsule by mouth once daily at bedtimeDuloxetine 30 mg Capsule,Delayed Release(Dr/Ec) Discontinued 30 MG PO Daily at bedtime 30 30 0 December 14, 2021 12:00am August 24, 2024 9:32amergocalciferol 1.25 mg oral capsule (4 sources)Provitamin D2 CompoundStart: 01-26-2019 End: 79-61-2678Cnxcswahzbsaxt (Vitamin D2) 50,000 unit Capsule Discontinued 84883 UNIT PO Sa@0900 2 14 0 January 25, 2019 11:00pm December 12, 2021 2:38pm ethinyl estradiol 0.035 mg / norgestimate 0.25 mg oral tablet (9 sources)Progestin, EstrogenStart: 12-22-2024 End: 97-10-0332yfgv 1 tablet by mouth once daily, then take 1 tablet by mouth once dailynorgestimate-ethinyl estradiol (Sprintec 28) 0.25-35 MG-MCG tablet Indications: control counseling Take 1 tablet by mouth Daily for 28 days Take 1 tablet by mouth daily 28 tablet 11 12/22/2024 04/27/2025 Discontinued (Therapy completed)sertraline 50 mg oral tablet (4 sources)Serotonin Reuptake InhibitorStart: 01-26-2019 End: 47-86-6060yjdj 1 tablet by mouth once dailySertraline 50 mg Tablet Discontinued 50 MG PO Daily 14 14 0 January 25, 2019 11:00pm December 12, 2021 2:38pm Problems Active Problems Problem ClassificationProblemDateDocumented DateEpisodic/ChronicAcute posthemorrhagic anemia (1 source)Acute posthemorrhagic anemia; Translations: [ACUTE POSTHEMORRHAGIC ANEMIA]Onset: 87-12-0371YkkdxpjxAvewalaxmjcmlk/social admission (2 sources)Patient encounter status; Translations: [Person consulting for explanation of examination or test findings]18-39-4108XwbpsfytFywtth (20 sources)Mild intermittent asthma; Translations: [Mild intermittent asthma, uncomplicated]Onset: 030038-53-8232XwvairvOlnbxj of cervix (3 sources)Cervical intraepithelial neoplasia grade 1; Translations: [Low grade squamous intraepithelial lesion on cytologic smear of cervix (LGSIL)]01-17-2025 EpisodicContraceptive and procreative management (3 sources)Subcutaneous contraceptive implant present; Translations: [Encounter for surveillance of implantable subdermal contraceptive]20-67-7989Icnbpzsi Esophageal disorders (20 sources)Gastroesophageal reflux disease; Translations: [Gastro-esophageal reflux disease without esophagitis]Onset: 331949-16-4479NoifpaaSafkpjyqxh disorders (3 sources)Esophagitis; Translations: [Esophagitis]15-81-2127Ijhetvvl Immunizations and screening for infectious disease (4 sources)Encounter for screening for infections with a predominantly sexual mode of transmission; Translations: [Contact with and (suspected) exposure to infections with a predominantly sexual mode of transmission]Onset: 06-10-2022 04-73-2433QsqeogheBejtfppoz (1 source)Influenza due to other identified influenza virus with other respiratory manifestations; Translations: [FLU D/T OTH ID FLU VIR OTH RSP MANF] Onset: 31-99-7684KwijvuszTzqyzfzhn disorders (20 sources)Irregular menstruation, unspecified; Translations: [Amenorrhea] Onset: 56-18-1851QbrvyqlBbde disorders (20 sources)Recurrent major depression; Translations: [Major depressive disorder, recurrent, unspecified]Onset: 002337-76-3114EyfsictSnkjuj and vomiting (12 sources)Nausea; Translations: [Nausea]12-56-3995OkflwddgMmoas complications of ; puerperium affecting management of mother (1 source)Obesity complicating childbirth; Translations: [OBESITY COMPLICATING CHILDBIRTH]Onset: 27-75-7803CuiiewbGnmks complications of ; puerperium affecting management of mother (1 source)Anemia of the puerperium; Translations: [ANEMIA OF THE PUERPERIUM] Onset: 85-42-9200LzasjycHwwrc complications of (2 sources)Obesity complicating , third trimester; Translations: [OBESITY COMP THIRD TRI]Onset: 19-23-9117JmpmzwwZtutb complications of (4 sources) related conditions, unspecified, unspecified trimester; Translations: [ RELATED COND UNS UNS TRI]Onset: 23-48-6504ZakrrkmeOnjrt complications of (1 source)Diseases of the respiratory system complicating , third trimester; Translations: [DISEASESRESP SYS COMP PREG 3RD TRI]Onset: 09-24-2022 EpisodicOther complications of (1 source)Other specified related conditions, unspecified trimester; Translations: [Other specifiedpregnancy related conditions, unspecified trimester]Onset: 31-02-8984EbcnbdkvWuzir ear and sense organ disorders (3 sources)Otalgia, left ear; Translations: [OTALGIA LEFT EAR]Onset: 09-22-2022 EpisodicOther endocrine disorders (5 sources)Polycystic ovary syndrome; Translations: [Polycystic ovarian syndrome]38-61-4136HjbedrjXvvpk female genital disorders (2 sources)Vaginal discharge; Translations: [Other specified noninflammatory disorders of vagina]76-87-6701HbswcjceWkybf gastrointestinal disorders (4 sources)Constipation; Translations: [Constipation, unspecified]01-21-2019 EpisodicOther gastrointestinal disorders (1 source)Constipation, unspecified; Translations: [Constipation, unspecified] 82-82-5115AuntglqjYaalw gastrointestinal disorders (1 source)Diarrhea, unspecified; Translations: [Diarrhea, unspecified]Onset: 83-51-3703SxlhcvypVpvvs nutritional; endocrine; and metabolic disorders (20 sources)Morbid obesity; Translations: [Morbid (severe) obesity due to excess calories]Onset: 739870-03-2678LphlczdVqfcx and delivery including normal (20 sources)Single live ; Translations: [Encounter for supervision of other normal , third trimester]Onset: 15-91-9059BmhlxmgoIgmyr screening for suspected conditions (not mental disorders or infectious disease) (20 sources)Encounter for screening for malignant neoplasm of cervix; Translations: [Encounter for other specified screening]Onset: 06-50-2009EnjuqfviJlvpw upper respiratory disease (20 sources)Allergic rhinitis due to pollen; Translations: [Allergic rhinitis due to pollen]Onset: 437873-99-2838ZxqqblrHqxseh media and related conditions (1 source)Unspecified nonsuppurative otitis media, bilateral; Translations: [UNS NONSUPPURATIVE OTITIS MEDIA OSCAR]Onset: 47-18-5793AdminkdoObwratx cyst (5 sources)Cyst of right ovary; Translations: [Unspecified ovarian cyst, right side]71-52-3150FdrurjhrEzgrbhqi codes; unclassified (1 source)38 weeks gestation of ; Translations: [38 WEEKS GESTATION OF ]Onset: 92-36-5442LrpfahrrBjcrfjjc codes; unclassified (1 source)29 weeks gestation of ; Translations: [29 WEEKS GESTATION OF ]Onset: 22-32-1174CfyqdnppBmuricgg codes; unclassified (2 sources)Gestation period, 11 weeks; Translations: [11 weeks gestation of ]09-94-6275EsujwaexDccbetxv codes; unclassified (2 sources)Gestation period, 15 weeks; Translations: [15 weeks gestation of ]85-33-8756ArcxylpeEcueusom codes; unclassified (2 sources)Gestation period, 19 weeks; Translations: [19 weeks gestation of ]43-99-6839IssnvhynQgvlaver codes; unclassified (2 sources)Gestation period, 23 weeks; Translations: [23 weeks gestation of ]10-03-1380HuaxqmhsKmtqrlq disorders (1 source)Disorder of thyroid gland; Translations: [Disorder of thyroid, unspecified]02-40-9822OdjzbnqtLsobfsknqxye (2 sources)[facility] ; Translations: [[facility] DIS/COND COMPL ]Onset: 53-12-4790Mcdtpofkfcwm (1 source)STOMACH PAIN, DIARRHEAOnset: 08-28-2024 Past or Other Problems Problem ClassificationProblemDateDocumented DateEpisodic/ChronicAbdominal pain (20 sources)Indigestion; Translations: [Epigastric pain]Onset: 03-02-2024 Resolved: 494864-53-8114RrchpifdVxmwaubnvdnge gastroenteritis (1 source)Noninfective gastroenteritis and colitis, unspecified; Translations: [Noninfective gastroenteritis and colitis, unspecified]Onset: 53-79-2005Livuuchs Other complications of (4 sources)Abnormal ultrasonic finding on screening of mother; Translations: [ABNORM US SCREEN MOTHER]Onset: 95-59-1291Mfnnhdwh Residual codes; unclassified (1 source)26 weeks gestation of ; Translations: [26 WEEKS GESTATION OF ]Onset: 50-02-4510YztxqplsNaufkvrc codes; unclassified (1 source)18 weeks gestation of ; Translations: [18 WEEKS GESTATION OF ]Onset: 30-16-7108QlozjlruSilrijbw codes; unclassified (1 source)Less than 8 weeks gestation of ; Translations: [< 8 WEEKS GESTATION ]Onset: 73-70-3127HscnnergTuowqgmwljp; intervertebral disc disorders; other back problems (20 sources)Cervicalgia; Translations: [Torticollis]Onset: 59-38-1728Qzzschdw Results Test NameValueInterpretationReference RangeFacilityUrinalysis macro (dipstick) panel (U)on 92-21-3426Zsplvyyyv, UA2+Negative - 4(70) +++ mg/dLNOGA Healthcare Blood, UANegativeNegative - 50 [place]/mcLNOGA HealthcareClarity, UAClearNOMS HealthcareColor, UADark AmberNOGA HealthcareGlucose, UANegativeNegative - 2000(110) ++++ mg/dLNOGA HealthcareInterpretation and review of laboratory resultsAbnormalNOGA HealthcareKetones, UAPositiveNegative - 160(16) ++++ mg/dL NOMS HealthcareLeukocytes, UA1+Negative - 500+++ [place]yler/mcLNOGA HealthcareNitrite, UANegativeNegative - PositiveNOMS HealthcarepH, UA6.05 - 9N[facility] Protein, UA1+Negative - 2000(20) ++++ mg/dLNOGA HealthcareSpec Grav, UA1.0251 - 1.03NOGA HealthcareUrobilinogen, UA2.00.2 - 12 mg/dLNOGA HealthcareNOMS HealthcareBasophils Auto (Bld) [#/Vol]Ordered By: Bello Marks ([place]) on 54-79-8573Bufvkhiqq (Bld) [#/Vol]0.0 10 3/uL0.0-0.1FTwin City HospitalBasophils/100 WBC Auto (Bld)Ordered By: Bello Marks ([place]) on 08-29-2025 Basophils/100 WBC (Bld)0.5 %0.2-2.0[facility] Eosinophils/100 WBC Auto (Bld)Ordered By: ([place]ma) Bello Marks on 08-29-2025 Eosinophils/100 WBC (Bld)0.7 %Low0.9-7.0[facility] Erythrocyte distribution width Auto (RBC) [Ratio]Ordered By: (Salma) Bello Marks on 33-66-0048Vsucfsuhbop distribution width (RBC) [Ratio]13.1 %11.0-15.0 [facility] HospitalFine granular cast count in urine sediment by microscopy (number/low power field )Ordered By: (Salma) Bello Marks on 51-98-2327Fats Granular Casts LM.LPF (Urine sed) [#/Area]RARECorey HospitalGlobulin Calc (S) [Mass/Vol]Ordered By: (Salma) Bello Marks on 21-56-3286Zglsytee (S) [Mass/Vol]4.3 g/dLCorey Hospital Glomerular filtration rate (GFR) estimation in non- AmericanOrdered By: (Salma) Bello Marks on 44-48-6039CFX/1.73 sq M.predicted among non-blacks MDRD (S/P/Bld) [Vol rate/Area]mL/min/{1.73_m2}>=60 mL/min/1.73m 2FTwin City HospitalHematocrit Auto (Bld) [Volume fraction]Ordered By: (Salma) Bello Marks on 96-31-6401Gtkbiaivvp (Bld) [Volume fraction]32.5 %Low36.0-48.0Corey HospitalHemoglobin [Mass/volume] in BloodOrdered By: (Salma) Bello Marks on 22-59-2939Bxfkiajuvr (Bld) [Mass/Vol]11.0 g/dLLow12.0-16.0 [facility] HospitalLaboratory - Chemistry and Chemistry - challengeOrdered By: (Salma) Bello Marks on 85-35-2240Ifqgjfe [Mass/Vol]2.7 g/dLLow3.4-5.0Corey HospitalALP [Catalytic activity/Vol]103 U/I04-476FrexrcyajCorey HospitalALT [Catalytic activity/Vol]22 U/L 14-59Corey HospitalAST [Catalytic activity/Vol]13 U/XWzj35-47 [facility] HospitalBilirubin [Mass/Vol]0.5 mg/dL0.2-1.0[facility] HospitalCalcium [Mass/Vol]8.7 mg/dL8.5-10.1FTwin City HospitalChloride [Moles/Vol]104 mmol/I05-595QvxxeczsbCorey HospitalCO2 [Moles/Vol]25.2 mmol/L21.0-32.0[facility] Creatinine [Mass/Vol]0.60 mg/dL0.55-1.02[facility] GFR/1.73 sq M.predicted MDRD (S/P/Bld) [Vol rate/Area]mL/min/{1.73_m2}>=60 mL/min/1.73m 2FTwin City HospitalGlucose [Mass/Vol]94 mg/kY42-774 [facility] HospitalPotassium [Moles/Vol]3.6 mmol/L3.5-5.1FTwin City HospitalProtein [Mass/Vol]7.0 g/dL6.4-8.2FMetroHealth Parma Medical Centerodium [Moles/Vol]137 mmol/B691-970KlcpenrvmCorey HospitalUrea nitrogen [Mass/Vol]5.0 mg/dLLow7.0-18.0[facility]y HospitalUrea nitrogen/Creatinine [Mass ratio]8.3 mg/mgCorey HospitalBilirubin Ql (U)SMALLAbnormalNEGATIVECorey Hospital Glucose (U) [Mass/Vol]NegativeNEGATIVECorey HospitalKetones Ql (U)40 mg/dLAbnormalNEGATIVECorey HospitalpH (U)5.5 [pH] 5.0-9.0Mercy Hospitalpecific gravity (U) [Rel density] >=1.280Ndctnouk2.005-1.025Corey HospitalUrobilinogen Qn (U) 2.0 {Nadege'U}/dLAbnormal0.2-1.0[facility] HospitalLaboratory - Hematology and Cell countsOrdered By: ([place]) Bello Marks on 54-54-1063Sfwxxipw granulocytes/100 WBC (Bld)0.7 %High0.0-0.5FTwin City Hospital Laboratory - Specimen informationOrdered By: (Salma) Bello Marks on 08-29-2025 Appearance (U)CLEARCLEARFTwin City HospitalColor (U)YELLOWYELLOW [facility] HospitalLaboratory - UrinalysisOrdered By: (Salma) Bello Marks on 57-68-1689Kxzpkcovm esterase Test strip Ql (U)NegativeNEGATIVE [facility] HospitalMucus Ql (Urine sed)SMALLAbnormalNONE SEEN [facility] HospitalNitrite Ql (U)NegativeNEGATIVECorey HospitalProtein Ql (U)100 mg/dLAbnormalNEG/TRACECorey HospitalLeukocytes [#/volume] corrected for nucleated erythrocytes in Blood by Automated counOrdered By: (Salma) Bello Marks on 88-70-6306FSN corrected for nucl RBC Auto (Bld) [#/Vol]8.7 10 3/uL4.0-11.0 [facility] HospitalLymphocytes Auto (Bld) [#/Vol]Ordered By: (Salma) Bello Marks on 90-45-8059Jfdyvlcxabg (Bld) [#/Vol]1.9 10 3/uL1.2-3.8 [facility] HospitalLymphocytes/100 WBC Auto (Bld)Ordered By: (Salma) Bello Marks on 06-61-6941Owxeayrdzrq/100 WBC (Bld)21.7 %20.5-60.0 [facility] Auto (RBC) [Entitic mass]Ordered By: (Salma) Bello Marks on 50-89-0173CWU (RBC) [Entitic mass]30.1 pg26.7-34.0 [facility] CenterHC Auto (RBC) [Mass/Vol]Ordered By: (Salma) Bello Marks on 24-91-8488CVTE (RBC) [Mass/Vol]33.8 g/dL29.9-35.2FTwin City HospitalMCV Auto (RBC) [Entitic vol]Ordered By: ([place]) Bello Marks on 44-14-3331DVO (RBC) [Entitic vol]88.8 fL81.0-99.0Corey HospitalMonocytes Auto (Bld) [#/Vol]Ordered By: ([place]) Bello Marks on 26-92-6050Jrkuvfxft (Bld) [#/Vol]0.8 10 3/uL0.3-0.8Corey HospitalMonocytes/100 WBC Auto (Bld)Ordered By: ([place]) Bello Marks on 08-29-2025 Monocytes/100 WBC (Bld)8.6 %1.7-12.0[facility] HospitalNeutrophils Auto (Bld) [#/Vol]Ordered By: ([place]) Bello Marks on 83-94-3428Zsuymypwotj (Bld) [#/Vol]5.9 10 3/uL1.4-6.5FTwin City HospitalNeutrophils/100 WBC Auto (Bld)Ordered By: ([place]) Bello Marks on 76-54-2172Omgvndgminv/100 WBC (Bld)67.8 %43.0-75.0[facility]y HospitalNo Panel InformationOrdered By: ([place]) Bello Marks on 16-78-0032Hmpmggwitug # (Auto)0.1 10 3/uL0.0-0.7 [facility] HospitalImmature Granulocyte # (Auto)0.06 10 3/uLHigh 0.00-0.03Core[facility] HospitalUrine BacteriaSMALL #/HPFAbnormalNONE [facility] ColumbusUrine Culture ReflexedYES-FRJoint Township District Memorial HospitalUrine Occult BloodNegativeNEGATIVECorey HospitalUrine Other CastsSEEN #/LPFAbnormalNONE [facility] ColumbusUrine Other CrystalsNone Seen #/HPFNone [facility] CenterUrine RBC0-2 #/HPF0-2FTwin City HospitalUrine Squamous Epithelial CellsFEW #/LPFAbnormalNONE/RARECorey HospitalUrine WBC2-5 #/HPFAbnormalNONE SEENCorey Hospital Platelet mean volume Auto (Bld) [Entitic vol]Ordered By: ([place]) Bello Mally Marks on 17-61-6981Qeuywgif mean volume (Bld) [Entitic vol]11.4 fL9.5-13.5FTwin City HospitalPlatelets Auto (Bld) [#/Vol]Ordered By: ([place]) Bello Mally Tae on 50-18-7003Zrghmwgef (Bld) [#/Vol]201 10 3/mF738-559OirnspebqCorey HospitalRBC Auto (Bld) [#/Vol]Ordered By: ([place]) Bello Mally Tae on 74-93-4358ECB (Bld) [#/Vol]3.66 10 6/uLLow4.20-5.40Mercy Hospitalerum or plasma albumin/globulin mass ratioOrdered By: ([place]) Bello Marks on 13-18-7575Khshdpi/Globulin [Mass ratio]0.6 {ratio}Mercy Hospitalerum or plasma anion gap determinationOrdered By: ([place]) Bello Marks on 70-29-5350Geqde gap [Moles/Vol]11.4 mmol/LFTwin City HospitalUrine Cultureon 46-84-0305Fiquyexa identified Cx Nom (U)Diagnosis: 23 WKS ; ABDOMINAL PAIN DIARRHEA Comment: 30,000 colonies/ml mixed bacterial skin contaminants 2 Days PERFORMED BY: [facility] [address] [place] [address] PATHOLOGIST TRAUMA MANAGER JORDAN ALCAZAR M.D.NormalThe Formerly [facility] Physician GroupComment on above: Performed By: #### CUU #### [facility] [address] [place] [address] USABASIC METABOLIC PANELon 21-29-0247Ebttr gap [Moles/Vol]10 mmol/LNormal5-15Pro[facility] HospitalComment on above:Performed By: #### BMP #### [facility] ([facility]) [address] [place] [address] [place] [address] VIRCalcium [Mass/Vol]8.3 mg/dLLow8.5-10.5POhioHealth Marion General HospitalComment on above:Performed By: #### BMP #### [place] ([address] [address] VIRChloride [Moles/Vol]103 mmol/JLqqytg75-286UurNdzlepDell Children'S Medical CenterComment on above:Performed By: #### BMP #### [place] ([address] [address] VIRCO2 [Moles/Vol]21 mmol/VScv21-95QmaEbwzbnOhioHealth Marion General Hospital Comment on above:Performed By: #### BMP #### [place] ([address] [address] VIRCreatinine [Mass/Vol]0.53 mg/dLNormal0.40-1.00ProDell Children'S Medical CenterComment on above:Result Comment: METHOD TRACEABLE TO IDMS STANDARDPerformed By: #### BMP #### [place] ([address] [address] VIREGFR (CKD-EPI) NON-RACE DEPENDENT>^90Normal>=60ProDell Children'S Medical CenterComment on above:Result Comment: eGFR not reported due to non- numeric value for Creatinine. Reported eGFR is based on the CKD-EPI 2021 equation that does not use a race coefficient.Performed By: #### BMP #### [place] ([address] [address] VIRGlucose [Mass/Vol]101 mg/kQDaoz04-17FuiRsqthgDell Children'S Medical CenterComment on above:Performed By: #### BMP #### [place] ([address] [address] VIRPotassium [Moles/Vol]3.7 mmol/LNormal3.5-5.0ProDell Children'S Medical CenterComment on above:Performed By: #### BMP #### [place] ([address] [place] [address] VIRSodium [Moles/Vol]134 mmol/UYnpfbu614-570NyqVuiwss [facility]remont HospitalComment on above:Performed By: #### BMP #### [place] ([address] [place] [address] VIRUrea nitrogen [Mass/Vol]5 mg/dLNormal5-23ProDell Children'S Medical CenterComment on above:Performed By: #### BMP #### [place] ([address] [place] [address] VIRCBC (NO DIFF)on 25-68-7559Ozjemgyuisr distribution width (RBC) [Ratio]13.5 %Vgyjqg98.5-15Berger HospitalComment on above: Performed By: #### CBC #### [place] ([address] [address] VIRHematocrit (Bld) [Volume fraction]31.2 %Mah04-82EanPzprhnDell Children'S Medical CenterComment on above:Performed By: #### CBC #### [place] ([address] [place] [address] VIRHemoglobin (Bld) [Mass/Vol]10.6 g/dLLow11.7-15.5ProMedica [facility] HospitalComment on above:Performed By: #### CBC #### [place] ([address] [address] VIRMCH (RBC) [Entitic mass]29.2 whFtthpn18-91MlmCwbbumDell Children'S Medical CenterComment on above:Performed By: #### CBC #### [place] ([address] [place] [address] VIRMCHC (RBC) [Mass/Vol]33.8 g/oPYmrarw68-32KuuTozagjDell Children'S Medical CenterComment on above:Performed By: #### CBC #### [place] ([address] [place] [address] VIRMCV (RBC) [Entitic vol]86 wHVmqkqr67-301ClnVtlvsi [facility] HospitalComment on above:Performed By: #### CBC #### [place] ([address] [place] [address] VIRPlatelet mean volume (Bld) [Entitic vol]9.2 fLNormal7-12 [facility]tering Health Hamilton HospitalComment on above:Performed By: #### CBC #### [place] ([address] [place] [address] VIRPlatelets (Bld) [#/Vol]186 10*3/xNQbqlje960-244AlgHitwad Fremont HospitalComment on above:Performed By: #### CBC #### [place] ([address] [place] [address] VIRRBC COUNT3.62 X10^12/LLow3.8-5.2POhioHealth Marion General Hospital Comment on above:Performed By: #### CBC #### [place] ([address] [place] [address] VIRWBC (Bld) [#/Vol]8.9 10*3/uLNormal4-11ProDell Children'S Medical CenterComment on above:Performed By: #### CBC #### [place] ([address] [address] VIRURINALYSISon 13-99-9472Fuliqirqb sediment LM Ql (Urine sed) PresentAbnormalNonKettering Health SpringfieldComment on above:Performed By: #### UA #### [place] ([address] [place] [address] VIRBilirubin Ql (U)NegativeNormalNegativeProPromedica Bay Park Hospital HospitalComment on above:Performed By: #### UA #### [place] ([facility]) [address] [place] [address] [place] [address] VIRBLOOD/HGBNegativeNormalNegativeBerger Hospital Comment on above:Performed By: #### UA #### [place] ([facility]) [address] [place] [address] [place] [address] VIRColor (U)YellowNormalYellowBerger Hospital Comment on above:Performed By: #### UA #### [place] ([address] [place] [address] VIRGlucose Ql (U)NegativeNormalNegative, 250 mg/dLBerger HospitalComment on above:Performed By: #### UA #### [place] ([address] [place] [address] VIRKetones Ql (U)NegativeNormalNegativeBerger HospitalComment on above:Performed By: #### UA #### [place] ([address] [place] [address] VIRLeukocyte esterase Test strip Ql (U)NegativeNormalNegative Berger HospitalComment on above:Performed By: #### UA #### [place] ([address] [place] [address] VIRNitrite Ql (U)NegativeNormalNegativeBerger HospitalComment on above:Performed By: #### UA #### [place] ([address] [place] [address] VIRPH,URINE7.9Qyrccz7.0-8.5ProMedica Sonoma Valley HospitalComment on above:Performed By: #### UA #### [place] ([address] [place] [address] VIRProtein Ql (U)TraceAbnormalNegativeBerger HospitalComment on above:Performed By: #### UA #### [facility] ([address] [place] [address] VIRSpecific gravity (U) [Rel density]1.486Bpcvri8.003-1.035 Berger HospitalComment on above:Performed By: #### UA #### [facility] ([address] [place] [address] VIRSQUAMOUS SSWLBJYUYW8Kyfjdh9-2GsgKbenih [facility] Comment on above:Performed By: #### UA #### [facility] ([address] [address] VIRTURBIDITYHazyAbnormalClearPOhioHealth Marion General HospitalComment on above:Performed By: #### UA #### [place] ([address] [place] [address] VIRUROBILINOGEN>=8.0 eu/dLAbnormal0.2 eu/dL, 1.0 eu/dL Berger HospitalComment on above:Performed By: #### UA #### [facility] ([address] [address] VIRUS OB 14+ WEEKS ANATOMY SCANon 50-57-1636YB OB 14+ WEEKS ANATOMY SCANFINDINGS: A single, [...] Delivery: 12/26/25 Gestational Age as of 08/02/2025: 34s6xMRK,APTIMA HPV,AGE GDLNon 17-68-8840BUR GDLN ACOG TESTINGNote.NOMS HealthcareComment on above:TESTS RESULT FLAG UNITS REF RANGE LAB Clinician Provided Cytology Information Source.............Endocervix Other.............. No. of containers..01 ThinPrep Vial Age Samo MELANY Mela... -17 11 FLAG LEGEND: L-Low Normal,H-High Normal,LL-Alert Low,HH-Alert High <-Panic Low,>-Panic High,A-Abnormal,AA-Critical Abnormal Performed at: 01 =G [address] [address] Aleida Colon MD, IGP, RFX APTIMA HPV ASCUNote.[facility] Chester HospitalComment on above:TESTS RESULT FLAG UNITS REF RANGE LAB DIAGNOSIS: 02 NEGATIVE FOR INTRAEPITHELIAL LESION OR MALIGNANCY. Specimen adequacy: 02 Satisfactory for evaluation. No endocervical component is identified. An endocervical component is not commonly seen in the patient. Performed by: 02 Cynthia Smith Slot Editor ([facility]) . 02 Note: Note 02 The [...] ThinPrep(R) pap test was interpreted using the [employer](R) NeurogesX(TM) Cervical Algorithm whole slide imaging system. . 02 The HPV DNA reflex criteria were not met with this specimen result therefore, no HPV testing was performed. FLAG LEGEND: L-Low Normal,H-High Normal,LL-Alert Low,HH-Alert High <-Panic Low,>-Panic High,A-Abnormal,AA-Critical Abnormal Performed at: 02 [facility] [address] [place] [address] Aleida Colon MD, Performed at: =G - [facility] [address], [place] [id number] Diesel Scoop Operator: Aleida Colon MD, Phone: [phone] Performed at: [facility] [address] [place], [place] [id number] Diesel Scoop Operator: Aleida Colon MD, Phone: [phone] SP[facility] END[facility] HealthcareAFP, SERUM, OPEN SPINA BIFIDAon 88-61-6742HYP MOM1.07. NOMS HealthcareAFP VALUE31.7 ng/mL.NOMS HealthcareCOMMENT:Comment.[facility] HealthcareComment on above:Caitlin Palafox, Ph.D., [facility] Director References: Available Upon Request. Multiples Of Median Cutoffs For AFP Elevations Caro 2.5 Black 2.8 IDD 2.0 Twins 4.5 Abbreviation Definitions IDD - Insulin Dep Diabetes OSBR - Open Spina Bifida Risk For further inquiries contact [facility] at [phone]. This test was developed and its performance characteristics determined by [employer]. It has not been cleared or approved by the Food and Drug Administration. Performed at: [facility] [address] [place], [place] [id number] Diesel Scoop Operator: Leonidas Oneill [facility], Phone: [phone] GEST. AGE ON COLLECTION DATE18.0. weeksKindred HospitalGESTAT. AGE BASED ON Ultrasound.[facility] HealthcareComment on above:15.1 on 07/05/2025 Recalculations are not recommended when gestational dating by LMP and ultrasound are within 10 days. INSULIN DEP DIABETESNo.NOMS HealthcareINTERPRETATIONComment.[facility] Healthcare Comment on above:Interpretation: [...] Customer Services to discuss available options. The [place] [employer] recommends amniocentesis be offered to women age 35 and older. MATERNAL AGE AT EDD25.1. yrNOGA HealthcareMULTIPLE GESTATIONNo.[facility] OSBR RISK 1 UA7554.NOMS HealthcareRACECaucasian.NOMS HealthcareRESULTSReport. NOMS HealthcareTEST RESULTS:Negative.[facility] IbocithomrKKTZSM151. lbsNOMS HealthcarePREGNANCY N N ULTRASOUND [id number] 1 15 N 1 Y 285 N N N N N White/ CLINISYNCNOMS HealthcareRECURRENT VAGINITIS (HTRX)on 28-89-9082CEWKMWBCL VAGINAE 0NOMS HealthcareATOPOBIUM VAGINAENot detectedNOMS HealthcareBVAB 2,3 (BACTERIAL VAGINOSIS ASSOCIATED BACTERIA 2, 3); MOBILUNCUS LKQ4TZNO HealthcareBVAB 2,3 (BACTERIAL VAGINOSIS ASSOCIATED BACTERIA 2, 3); MOBILUNCUS SPPNot detectedNOMS HealthcareCANDIDA ALBICANS, PARAPSILOSIS, DNIDKVFVND2FHCD HealthcareCANDIDA ALBICANS, PARAPSILOSIS, TROPICALISNot detectedNOMS HealthcareCANDIDA GLABRATA0 NOMS HealthcareCANDIDA GLABRATANot detectedNOMS HealthcareCANDIDA IKZYOV8WKAI HealthcareCANDIDA KRUSEINot detectedNOMS HealthcareCHLAMYDIA MPOUCSYKVCC7QANP HealthcareCHLAMYDIA TRACHOMATISNot detectedNOMS HealthcareGARDNERELLA VAGINALIS 31.049AbnormalNOMS HealthcareGARDNERELLA VAGINALISDetectedAbnormalNOMS HealthcareInterpretation and review of laboratory resultsAbnormalNOMS Healthcare MEGASPHAERA (TYPES 1, 2)0NOMS HealthcareMEGASPHAERA (TYPES 1, 2)Not detectedNOMS HealthcareMYCOPLASMA JMXGUTVUCL4ZQZG HealthcareMYCOPLASMA GENITALIUMNot detected NOMS HealthcareNEISSERIA OONPXCEELWC8ZDHT HealthcareNEISSERIA GONORRHOEAENot detectedNOMS HealthcareTET B, TET M23.864AbnormalNOMS HealthcareTET B, TET M DetectedAbnormalNOGA HealthcareTRICHOMONAS ISTSBJOET2ZEOW HealthcareTRICHOMONAS VAGINALISNot detectedNOMS HealthcareNOMS HealthcareUrinalysis macro (dipstick) panel (U)on 38-36-2441Rhjsubliw, UANegativeNegative - 4(70) +++ mg/dLNOMS HealthcareBlood, UAPositiveNegative - 50 Lincoln/mcLNOMS HealthcareClarity, UAClear NOMS HealthcareColor, UAYellowNOMS HealthcareGlucose, UANegativeNegative - 1999(110) ++++ mg/dLSALT LAKE REG[facility] HealthcareInterpretation and review of laboratory resultsAbnormalS[facility]KE [facility] HealthcareKetones, UANegativeNegative - 160(16) ++++ mg/dL NOMS HealthcareLeukocytes, UANegativeNegative - 500+++ Skyler/mcLNOGA Healthcare Nitrite, UANegativeNegative - PositiveNOGA HealthcarepH, UA65 - 9NOGA Healthcare Protein, UANegativeNegative - 1999(20) ++++ mg/dLSALT LAKE [facility] HealthcareSpec Grav, UA 1.0151 - 1.03NOGA HealthcareUrobilinogen, UA1.00.2 - 12 mg/dLSouthPointe Hospital HealthcareALL THYROID STIM HORMONEon 89-41-0280UAK Qn2.104 m[IU]/LNOMS HealthcareCLINISYNCNOMS HealthcareBOX TESTon 60-66-5294LNW TEST SENT OUTYESKindred HospitalZybtkdpdayQKN5IXFZDJGER CbwpmtjowxRHF43/03/13NOSaint Francis Medical CenterCLINISYNMUSC Health Columbia Medical Center DowntownHCG ( test) Ql (U)on 42-44-8921Abmokjetpkgclp and review of laboratory resultsAbnormEncompass Health Rehabilitation Hospital of Nittany ValleyPreg Test, UrPositiveNegativeNOSaint Mary's Hospital [facility] HealthcareUS OB TRANSVAGINALon 14-85-9005QY OB TRANSVAGINAL FINDINGS: A single intrauterine gestational [...] No LMP recorded.Urinalysis macro (dipstick) panel (U)on 80-04-3212Hgnfkppsr, UA NegativeNegative - 4(70) +++ mg/dLNOMS HealthcareBlood, UANegativeNegative - 50 Lincoln/mcLNOGA HealthcareClarity, UAClearNOMS HealthcareColor, UAYellowNOMS HealthcareGlucose, UANegativeNegative - 2000(110) ++++ mg/dLNOGA Healthcare Interpretation and review of laboratory resultsAbnormalNOGA HealthcareKetones, UANegativeNegative - 160(16) ++++ mg/dLSALT [facility]KE [facility] HealthcareLeukocytes, UANegative Negative - 500+++ Skyler/mcLNOGA HealthcareNitrite, UANegativeNegative - Positive NOMS HealthcarepH, UA75 - 9NOMS HealthcareProtein, UATraceNegative - 2000(20) ++++ mg/dLNOGA HealthcareSpec Grav, UA1.0251 - 1.03NOMS HealthcareUrobilinogen, UA1.00.2 - 12 mg/dLNOSaint Mary's Hospital of Blue Springs HealthcarePOCT NURSING URINE MACROSCOPIC UAon 93-22-6728OCMJHDSGK NURNegativeNounc healthNegUniversity Hospitals [facility] Comment on above:Performed By: #### NUM #### [place] ([address] [address] VIRBLOOD/HGB NURTraceAbnormalNegativeBerger HospitalComment on above:Performed By: #### NUM #### [place] ([address] [address] VIRGLUCOSE NURNegativeNoalNegativeBerger Hospital Comment on above:Performed By: #### NUM #### [place] ([address] [address] VIRKETONES NURNegativeNormalNegativeBerger Hospital Comment on above:Performed By: #### NUM #### [place] ([address] [address] VIRLEUKOCYTE ESTERASE NURNegativeNormalNegativeBerger HospitalComment on above:Performed By: #### NUM #### [place] ([address] [address] VIRNITRITE NURNegativeNormalNegativeBerger Hospital Comment on above:Performed By: #### NUM #### [place] ([address] [address] VIRPH NUR6.1Opdbvl6.0, 6.0, 6.5, 7.0, 7.5, 8.0, 8.5, 5.5 Berger HospitalComment on above:Performed By: #### NUM #### [place] ([address] [address] VIRPROTEIN EFB576 mg/dLAbnormalNegativeBerger HospitalComment on above:Performed By: #### NUM #### [address] [address] VIRSPECIFIC GRAVITY MOLLY>=1.587Nffuvzlb4.010, 1.015, 1.020, 1.025Berger HospitalComment on above:Performed By: #### NUM #### [place] ([address] [address] VIRUROBILINOGEN NUR0.2 E.U./dLSaint Luke'S North Hospital–SmithvillealBerger Hospital Comment on above:Performed By: #### NUM #### [place] ([address] [address] VIRPOCT , URINE (NUCG)on 29-10-8934Sdyj HCG ( test) Ql (U)PositiveAbnormalNegative, IndeterminateBerger HospitalComment on above:Performed By: #### NUCG #### [place] ([address] [address] VIRALL THYROID STIM HORMONEon 79-04-1312Wybgjrnnxrrdcw and review of laboratory resultsAbnoFox Chase Cancer Center Qn5.935 m[IU]/[facility] PhiladelphiaINISYNLUDLOW HOSPITAL HealthcareHCG ( test) Ql (U)on 01-17-2025 Interpretation and review of laboratory resultsNormalNO [facility] HospitalPreg Test, UrNegativeNegativeCESAR Coastal Carolina HospitalLon 01-17-2025L Specimen: [id number] Received: 01/18/25 Status: GHAZAL Parminder Num: [id number] Spec Type: Surgical Subm Dr: Jefferson Howard Tissues: A Endocervix - Biopsy (ENDOCERVIX) Endocervix - Curettings Procedures: TESSIE/Day Olivarez/Elvin Huggins Age/ Patient Sex Location Account Attending Physician Jes Romero 24/ LABELL [id number] Jefferson Howard SPEC NUM: [id number] RECD: 01/18/25 STATUS: GHAZAL JEROME NUM: [id number] JUDIT: 01/17/25-[address]: Jefferson Howard ENTERED: 01/18/25-[address] [facility] [address]: Emma,Lab SPEC TYPE: Surgical DEPT: LUCAS MAR ENTERED BY: [id number] RECV BY: [id number] ORDERED: HE/2, Gross/Micro L4 ORDERED: HE/2, Gross/Micro [...] submitted in a single cassette. (1, ns, [id number]) Microscopic Description Microscopic examination is performed Specimen: [id number] Received: 01/18/25 Status: GHAZAL Jerome Num: [id number] Spec Type: Surgical Subm Dr: Jefferson Howard Tissues: A Endocervix - Biopsy (ENDOCERVIX) Endocervix - Curettings Procedures: HE/2, Gross/Micro L4 Patient: Jes Romero [id number] (Continued) Specimen: [id number] Received: 01/18/25 (Continued) Signed (signature on file) Lizabeth Diggs MD 01/19/25 1541 Specimen: [id number] Received: 01/18/25 Status: GHAZAL Jerome Num: [id number] Spec Type: Surgical Subm Dr: Jefferson Howard Tissues: A Endocervix - Biopsy (ENDOCERVIX) Endocervix - Curettings Procedures: Day MEDELLIN/Elvin L4 Patient: Jes Romero [id number] (Continued) Specimen: [id number] Received: 01/18/25 (Continued) CPT Codes 13318 Specimen: [id number] Received: 01/18/25 Status: GHAZAL Jerome Num: [id number] Spec Type: Surgical Subm Dr: Jefferson Howard Tissues: A Endocervix - Biopsy (ENDOCERVIX) Endocervix - Curettings Procedures: TESSIE/Day Olivarez/Elvin L4 Patient: Jes Romero [id number] (Continued) Signed (signature on file) Brian-Shaheen Diggs MD 01/19/[address] [place] [address] Physician GroupUrinalysis macro (dipstick) panel (U)on 38-43-4213Strdcrcfb, UANegativeNegative - 4(70) +++ mg/dLNOMS HealthcareBlood, UANegativeNegative [...] mg/dLNOMS HealthcareNOMS HealthcareUS PELVIC COMPLETE W/ TVon 66-50-8789ND PELVIC COMPLETE W/ TVEXAM: US PELVIC COMPLETE [...] II, MD, PHD at 13-Jan-2025 11:16:36 PM [facility]andan TeleradiologyNormalNot AvailableComment on above:Order Comment: US PELVIS-TRANSVAG IF INDICATED No LMP recorded.Urine Cultureon 94-82-3583Wcwtpyxf identified Cx Nom (U)15,000 colonies/ml mixed bacterial skin contaminants 2 Days PERFORMED BY: [place] [address] PATHOLOGIST TRAUMA MANAGER BRUCE CALI M.D.NormalThe Formerly [facility] Physician GroupComment on above: Performed By: #### CUU #### [facility] [address] [place] [address] USAUrine cultureOrdered By: Krishna Saxena on 01-03-2025 Bacteria identified Cx Nom (U)Urine cultureCorey Hospital IGP,APTIMA HPV,AGE GDLNon 78-24-8046DXK GDLN ACOG TESTINGNote.[facility] Comment on above:TESTS RESULT FLAG UNITS REF RANGE LAB Clinician Provided Cytology Information Source.............Cervix;Endocervix No. of containers..01 ThinPrep Vial Age Algo ACOG Mela... -17 11 FLAG LEGEND: L-Low Normal,H-High Normal,LL-Alert Low,HH-Alert High <-Panic Low,>-Panic High,A-Abnormal,AA-Critical Abnormal Performed at: 01 =G [facility] [place] [address] Aleida Colon MD, IGP, RFX APTIMA HPV ASCUNoteAbnormal.NOMS HealthcareComment on above:TESTS RESULT FLAG UNITS REF RANGE LAB DIAGNOSIS: [A] 02 EPITHELIAL CELL ABNORMALITY. LOW GRADE SQUAMOUS INTRAEPITHELIAL LESION (LSIL). Specimen adequacy: 02 Satisfactory for evaluation. Endocervical and/or squamous metaplastic cells (endocervical component) are present. Performed by: 02 Cynthia Smith, Facility Administrator (ASCP) Electronically si... 02 Johanne Desir MD, [...] <-Panic Low,>-Panic High,A-Abnormal,AA-Critical Abnormal Performed at: [address] [address] Aleida Colon MD, Performed at: = - [facility] [id number] Diesel Scoop Operator: Aleida Colon MD, Phone: [phone] Performed at: [facility] [address] [id number] Diesel Scoop Operator: Aleida Colon MD, Phone: [phone] Interpretation and review of laboratory resultsAbnoRegional Hospital of Scranton BRUSH-SPATULA CERVIX ENDOCERVIX CLINISYVanderbilt Stallworth Rehabilitation HospitalInsertion/Removal of Contraceptive Capsuleon 12-02-2024 Pilar Collins [...] closed with steri-strips and pressure bandage applied: [facility] CenterUS PELVIC COMPLETE W/ TVon 72-75-4325NA PELVIC COMPLETE W/ TVEXAM: US PELVIC COMPLETE [...] II, MD, PHD at 03-Dec-2024 08:37:11 AM [facility]-Ugandan TeleradiologyNormalNot AvailableComment on above:Order Comment: US PELVIS-TRANSVAG IF INDICATED No LMP recorded.ALL CBC WITH AUTO DIFFon 87-24-0248LIHDUKUMQ ABSOLUTE AUTO0.1 NOMS HealthcareBasophils/100 WBC (Bld)0.6 %0.2 - 2.0 %[facility] Eosinophils/100 WBC (Bld)2.6 %0.9 - 7.0 %[facility] HealthcareErythrocyte distribution width (RBC) [Ratio]13.2 %11.0 - 15.0 %[facility] HealthcareHematocrit (Bld) [Volume fraction]38.2 %36.0 - 48.0 %Kindred HospitalHemoglobin (Bld) [Mass/Vol]12.4 g/dL 12.0 - 16.0 g/dLNOSaint Francis Medical CenterIMMATURE GRANULOCYTES ABS AUTO0.04HighNOGA HealthcareImmature granulocytes/100 WBC (Bld)0.4 %0.0 - 0.5 %[facility] Interpretation and review of laboratory resultsAbnormalNOGA Healthcare LYMPHOCYTES ABSOLUTE AUTO3.4NOSaint Francis Medical CenterLymphocytes/100 WBC (Bld)34.8 %20.5 - 60.0 %Kindred HospitalMCH (RBC) [Entitic mass]28.3 pg26.7 - 34.0 pgNOHarry S. Truman Memorial Veterans' HospitalHC (RBC) [Mass/Vol]32.5 g/dL29.9 - 35.2 g/dLNOGA HealthcareMCV (RBC) [Entitic vol]87.2 fL81.0 - 99.0 fLNOMS HealthcareMONOCYTES ABSOLUTE AUTO0.7NOMS HealthcareMonocytes/100 WBC (Bld)7.2 %1.7 - 12.0 %[facility] HealthcareNEUTROPHILS ABSOLUTE AUTO5.4NOMS HealthcareNeutrophils/100 WBC (Bld)54.4 %43.0 - 75.0 %[facility] HealthcarePlatelet mean volume (Bld) [Entitic vol]10 fL9.5 - 13.5 fLNOMS HealthcareTBH EO #0.3NOMS HealthcareTBH TDH190SONR HealthcareTBH RBC4.38NOMS HealthcareTBH WBC9.9NOMS HealthcareCLINISYNCNOMS HealthcareHCG ( test) IA.rapid Ql (U)Ordered By: Mir Silva on 69-58-6971ZLQ ( test) Ql (U)Urine human chorionic gonadotropin (hCG) detection by immunoassayCorey HospitalHC,Urineon 39-88-3717Iane HCG ( test) Ql (U) NegativeNoSelect Specialty Hospital - Greensboro Physician GroupComment on above:Result Comment: PERFORMED BY: [address] [place] [id number] PATHOLOGIST TRAUMA MANAGER BRUCE CALI M.D.Performed By: #### UHCG #### [place] [id number] USALon 09-07-2024L Specimen: [id number] Received: 09/07/24 Status: GHAZAL Jerome Num: [id number] Spec Type: Surgical Subm Dr: Mir Silva MD Tissues: A Small Intestine - Biopsy/Polyp (SMALL BOWEL BX R/O CELIAC) Procedures: HE/2, Gross/Micro L4 Age/ Patient Sex Location Account Attending Physician Jes Romero / [id number] Mir Silva MD SPEC NUM: [id number] RECD: 09/07/24 STATUS: GHAZAL JEROME NUM: [id number] JUDIT: 09/07/24 [facility] [address]: Mir Silva MD ENTERED: 09/07/[address]: SPEC TYPE: Surgical DEPT: S ENTERED BY: [id number] RECV BY: [id number] ORDERED: HE/2, Gross/Micro L4 ORDERED: HE/2, Gross/Micro [...] submitted in a single cassette. (1, ns, [id number]) Microscopic Description Microscopic examination is performed. CPT Codes 58552 Specimen: [id number] Received: 09/07/24 Status: GHAZAL Jerome Num: [id number] Spec Type: Surgical Subm Dr: Mir Silva MD Tissues: A Small Intestine - Biopsy/Polyp (SMALL BOWEL BX R/O CELIAC) Procedures: HE/2, Gross/Micro L4 Patient: Jes Romero [id number] (Continued) Signed (signature on file) Roberth Martinez MD 09/08/24 1012Noal [facility] Physician GroupCLINTON COUNTY [facility] AND AUTO DIFFon 22-32-1421ZHWSJYHO BASOPHIL0.0 X10E9/LNormal0.0-0.2POhioHealth Marion General HospitalComment on above:Performed By: #### MARLENE CBCA #### [facility] ([id number]) [address] [place] [address]KISJBJGK NEUTROPHIL3.8 X10E9/LNormal1.5-6.6Berger HospitalComment on above:Performed By: #### CMP, CBCA #### [facility] ([id number]) [address] [place] [address]Lwtltkkfd/100 WBC (Bld)0.3 %[facility] Comment on above:Performed By: #### MARLENE CBCA #### [facility] ([id number]) [address] [place] [address]Phoctvqbwzb (Bld) [#/Vol]0.0 10*3/uLNormal0.0-0.4Berger HospitalComment on above:Performed By: #### CMP, CBCA #### [facility] ([id number]) [address] [place] [address]Errhifqwjka/100 WBC (Bld)0.8 %[facility] Comment on above:Performed By: #### CMP, CBCA #### [facility] ([id number]) [address] [place] [address]Zhvxkpzfvgr distribution width (RBC) [Ratio]14.5 %Normal 11.5-15.0Berger HospitalComment on above:Performed By: #### CMP, CBCA #### [facility] ([id number]) [address] [place] [address]Swgwmnchoa (Bld) [Volume fraction]38.8 %Vbsgmw30-23UfsVsaittDell Children'S Medical CenterComment on above:Performed By: #### CMP, CBCA #### [facility] ([id number]) [address] [place] [address]Jcgqensybs (Bld) [Mass/Vol]13.0 g/pKYvshdx92.7-15.5POhioHealth Marion General HospitalComment on above:Performed By: #### CMP, CBCA #### [facility] ([id number]) [address] [place] [address] 101[address]Drlnwiphfie (Bld) [#/Vol]0.5 10*3/uLLow1.0-3.5POhioHealth Marion General HospitalComment on above:Performed By: #### CMP, CBCA #### [facility] ([id number]) [address] [place] [address]87[address]Tyxhksdtqri/100 WBC (Bld)11.5 %NormalBerger Hospital Comment on above:Performed By: #### CMP, CBCA #### [facility] ([id number]) [address] [place] [address]PPS (RBC) [Entitic mass]28.6 ixWgsafs11-48LbhGqjckhDell Children'S Medical CenterComment on above:Performed By: #### CMP, CBCA #### [facility] ([id number]) [address] [place] [address]BBGA (RBC) [Mass/Vol]33.5 g/oTHcehoa78-62BdzTviefdDell Children'S Medical CenterComment on above:Performed By: #### CMP, CBCA #### [facility] ([id number]) [address] [place] [address]99[address]BYA (RBC) [Entitic vol]85 lXYnlwrc83-485CrpBnekrqBerger HospitalComment on above:Performed By: #### CMP, CBCA #### [facility] ([id number]) [address] [place] [address] 133[address]Xldfampmk (Bld) [#/Vol]0.2 10*3/uLNormal0-0.9Berger HospitalComment on above:Performed By: #### CMP, CBCA #### [facility] ([id number]) [address] [place] [address]Pztfgllir/100 WBC (Bld)5.1 %[facility] Comment on above:Performed By: #### CMP, CBCA #### [facility] ([id number]) [address] [place] [address]70[address]Zzrzeirzebs/100 WBC (Bld)82.3 %[facility] Comment on above:Performed By: #### CMP, CBCA #### [facility] ([id number]) [address] [place] [address] [id number] mean volume (Bld) [Entitic vol]8.6 fLNormal7-12 [facility] HospitalComment [facility]:Performed By: #### CMP, CBCA #### [facility] ([id number]) [address] [place] [address] [id number] (Bld) [#/Vol]225 10*3/rUKerhst339-737GwlVtvfts [facility]remont HospitalComment on above:Performed By: #### CMP, CBCA #### [facility] ([id number]) [address] [place] [address] [id number] COUNT4.55 X10E12/LNormal3.80-5.20[facility] Comment on above:Performed By: #### MARLENE, CBCA #### [facility] ([id number]) [address] [place] [address] [id number] (Bld) [#/Vol]4.6 10*3/uLNormal4.0-11.0ProDell Children'S Medical CenterComment on above:Performed By: #### CMP, CBCA #### [facility] ([id number]) [address] [place] [address] [id number] METABOLIC PANELon 42-18-8467Mtukscd [Mass/Vol]3.6 g/dLNormal3.2-5.3POhioHealth Marion General HospitalComment on above:Performed By: #### CMP, CBCA #### [facility] ([id number]) [address] [place] [address], [place] [address]HJB [Catalytic activity/Vol]65 U/OBhrhfj70-118YkzHcpgagDell Children'S Medical CenterComment on above:Performed By: #### CMP, CBCA #### [facility] ([id number]) [address] [place] [address], [place] [address]ETS [Catalytic activity/Vol]29 U/LNormal0-31POhioHealth Marion General HospitalComment on above:Performed By: #### CMP, CBCA #### [facility] ([id number]) [address] [place] [address], [place] [address]Llcyj gap [Moles/Vol]10 mmol/LNormal5-15ProDell Children'S Medical CenterComment on above:Performed By: #### CMP, CBCA #### [facility] ([id number]) [address] [place] [address], [place] [address]QID [Catalytic activity/Vol]36 U/LNormal0-41ProDell Children'S Medical CenterComment on above:Performed By: #### CMP, CBCA #### [facility] ([id number]) [address] [place] [address], [place] [address]Hbwagkjri [Mass/Vol]0.9 mg/dLNormal0.3-1.2POhioHealth Marion General HospitalComment on above:Performed By: #### MARLENE, CBCA #### [facility] ([id number]) [address] [place] [address], [place] [address]Ftcwnff [Mass/Vol]8.3 mg/dLLow8.5-10.5POhioHealth Marion General HospitalComment on above:Performed By: #### MARLENE, CBCA #### [facility] ([id number]) [address] [place] [address], [place] [address]Vdmadxvd [Moles/Vol]103 mmol/XGntyqd86-113GioPosiezDell Children'S Medical CenterComment on above:Performed By: #### MARLENE CBCA #### [facility] ([id number]) [address] [place] [address], [place] [address]QL8 [Moles/Vol]22 mmol/PFcbcjn01-82QlgLgqeppOhioHealth Marion General Hospital Comment on above:Performed By: #### MARLENE, CBCA #### [facility] ([id number]) [address] [place] [address], [place] [address]Ngmupdshve [Mass/Vol]0.72 mg/dLNormal0.40-1.00ProDell Children'S Medical CenterComment on above:Result Comment: METHOD TRACEABLE TO IDMS STANDARD Performed By: #### MARLENE, CBCA #### [facility] ([id number]) [address] [place] [address], [place] [address]kCRB (CKD-EPI) NON-RACE DEPENDENT>90Normal>59ProDell Children'S Medical CenterComment on above:Result Comment: Reported eGFR is based on the CKD-EPI 2020 equation that does not use a race coefficient.Performed By: #### MARLENE, CBCA #### [facility] ([id number]) [address] [place] [address]Npeliwx [Mass/Vol]103 mg/wKAwdr87-02KxmQkwwrbDell Children'S Medical Center Comment on above:Performed By: #### CMP, CBCA #### [facility] ([id number]) [address] [place] [address]Xxemflype [Moles/Vol]3.5 mmol/LNormal3.5-5.0ProDell Children'S Medical CenterComment on above:Performed By: #### CMP, CBCA #### [facility] ([id number]) [address] [place] [address]Aeacztd [Mass/Vol]6.9 g/dLNormal6.0-8.0ProDell Children'S Medical CenterComment on above:Performed By: #### CMP, CBCA #### [facility] ([id number]) [address] [place] [address]Dbwmai [Moles/Vol]135 mmol/YJxdyqj992-173HqvQdluci [facility]remont HospitalComment on above:Performed By: #### CMP, CBCA #### [facility] ([id number]) [address] [place] [address]Ndvz nitrogen [Mass/Vol]16 mg/dLNormal5-23ProDell Children'S Medical CenterComment on above:Performed By: #### CMP, CBCA #### [facility] ([id number]) [address] [place] [address]ZI ABDOMEN AND PELVIS W CONTon 53-38-1734NP ABDOMEN AND PELVIS W CONTCT ABDOMEN AND [...] by Huang Burleson MD on 08/28/2024 8:12 PMNormalProDell Children'S Medical CenterHCG ( test) Ql (U)on 81-53-7775Cfbq HCG ( test) Ql (U) NegativeNormalNEGBerger HospitalComment on above:Performed By: #### 2106-3 #### [facility] ([id number]) [address] [place] [address]ROB MACROSCOPIC NURon 86-15-7921FBFJEFMGR NURSmallAbnormalNEG [facility] HospitalComment on above:Performed By: #### NUM #### [facility] ([id number]) [address] [place] [address]XYJLX/HGB NURNegativeNormalNEGProDell Children'S Medical CenterComment on above:Performed By: #### NUM #### [facility] ([id number]) [address] [place] [address] 87[address]RGCDLMZ NURNegativeNormalNEGProDell Children'S Medical CenterComment on above:Performed By: #### NUM #### [facility] ([id number]) [address] [place] [address], [place] [address]VJOYTNB NURNegativeNormalNEGProDell Children'S Medical CenterComment on above:Performed By: #### NUM #### [facility] ([id number]) [address] [place] [address], [place] [address]TDJVIARMR ESTERASE NURNegativeNormalNEGProDell Children'S Medical CenterComment on above:Performed By: #### NUM #### [facility] ([id number]) [address] [place] [address], [place] [address]ZVDHUFL NURNegativeNormalNEGProDell Children'S Medical CenterComment on above:Performed By: #### NUM #### [facility] ([id number]) [address] [place] [address], [place] [address]NM NUR5.6Ptbysn5.0-8.5POhioHealth Marion General HospitalComment on above:Performed By: #### NUM #### [facility] ([id number]) [address] [place] [address], [place] [address]JMLODSC MOLLY>=300AbnormalNEGBerger HospitalComment on above:Performed By: #### NUM #### [facility] ([id number]) [address] [place] [address], [place] [address]WPTLDUGI GRAVITY MOLLY>=1.229Xznszs8.003-1.035ProDell Children'S Medical CenterComment on above:Performed By: #### NUM #### [facility] ([id number]) [address] [place] [address], [place] [address]XXJQLKADCKZU NUR0.2 eu/dLNormal<1.1POhioHealth Marion General Hospital Comment on above:Performed By: #### NUM #### [facility] ([id number]) [address] [place] [address], [place] [address]CQCS TRICHOMONAS/WET PREPon 09-50-5901RRS PREP TRIC BV CYDNEY Wet Prep Tric BV Cydney WP.BACT Bacteria^Bacteria NOMS HealthcareWET PREP TRIC BV CANDIDAWP.CLUE Clue Cells^Clue CellsNOMS HealthcareWET PREP TRIC BV CANDIDAWP.JEANNETTE Fungal Elements^Fungal ElementsNOMS HealthcareWET PREP TRIC BV CANDIDAWP.RBC RBC^RBCNOMS HealthcareWET PREP TRIC BV CANDIDAWP.TRICH Trichomonas^TrichomonasNOMS HealthcareWET PREP TRIC BV CYDNEY WP.WBC WBC^WBCNOMS HealthcareCLINISYNCNOMS HealthcareNo Panel Informationon 58-12-4750POC PREP TRIC BV CANDIDAF Few^FewNOMS HealthcareWET PREP TRIC BV CANDIDAN None Seen^None SeenNOMS HealthcareXR LUMBAR SPINE 2 OR 3Von 06-03-2024 [place] [address] XRay Report Signed Patient: JES ROMERO MR#: [id number] : 2000 Acct:[id number] Age/Sex: 23 / F ADM Date: 06/01/24 Loc: [facility] Attending Dr: Manuel Noel M.D. Ordering Physician: Manuel Noel M.D. Date of Service: 06/01/24 Procedure(s): XR lumbar spine 2-3V Accession Number(s): [id number] cc: Manuel Noel M.D. [address] [address] Patient Name: JES ROMERO MRN: [id number] date: 2000 Sex: F Assigned Patient Location: [facility] Current Patient Location: Accession/Order Number: [id number] Exam Date: 06/01/2024 14:19 Report Date: 06/03/2024 [...] Signed By: 06/03/24 1313 DD/ 1310 TD/TT: Operations And Maintenance Manager:YOUNGadiologjosué, Radiologist, - 06/03/2024 [place] [address] XRay Report Signed Patient: JES ROMERO MR#: [id number] : 2000 Acct:[id number] Age/Sex: 23 / F ADM Date: 06/01/24 Loc: [facility] Attending Dr: Manuel Noel M.D. Ordering Physician: Manuel Noel M.D. Date of Service: 06/01/24 Procedure(s): XR lumbar spine 2-3V Accession Number(s): [id number] cc: Manuel Noel M.D. [place] [address] Patient Name: JES ROMERO MRN: [id number] date: 2000 Sex: F Assigned Patient Location: [facility] Current Patient Location: Accession/Order Number: [id number] Exam Date: 06/01/2024 14:19 Report Date: 06/03/2024 [...] Signed By: 06/03/24 1313 DD/ 1310 TD/TT: Operations And Maintenance Manager: CESAR HealthcareRadiology Study observation (narrative)NOMMaribell HealthcareXR LUMBAR SPINE 2 OR 3VOrdered By: Radiologist Radiology on 00-25-2333[facility] Work Phone: PRBC LEUKOREDUCEDon 41-66-7283IGL and Rh group Nom (Bld)Cross Match Result Compatible Unit Blood Type O Pos Unit Number [id number] Status Information Transfused Product ID Red Blood Cells Product Code [id number] Cross Match Result Compatible Unit Blood Type O Pos Unit Number [id number] Status Information Transfused Product ID Red Blood Cells Product Code [id number] Memorial HospitalComment on above:Performed By: #### PRBC ####[facility] Uxjqnerk[address] [place], [place] [address]Dr. Benoit DiggsCBC AUTO DIFFon 42-46-9514NHRL #0.1 103/ulNormal0.0-0.1The [facility] CenterComment on above:Performed By: #### CBC ####[facility] Kscllvnsxd[address] [place], [place] [address]Dr.Benoit DiggsBasophils/100 WBC (Bld)1.2 %Normal0.2-2.0The [facility] Community Hospitalment on above:Performed By: #### CBC ####[facility] Pdvijolmmk[address] [place], [place] [address]Dr.Benoit ChangEO #0.4 103/ulNormal0.0-0.7The [facility] CenterComment on above:Performed By: #### CBC ####[facility] Yraxahvsku[address] [place], [place] [address]Dr.Benoit ChangEosinophils/100 WBC (Bld)4.5 %Normal 0.9-7.0The [facility] CenterComment on above:Performed By: #### CBC ####[facility] Dueepcwrzp[address] [place], [place] [address]Dr.Benoit Diggs Erythrocyte distribution width (RBC) [Ratio]16.6 %Critically high11.0-15.0The [facility] CenterComment on above:Performed By: #### CBC ####[facility] [address] [place] [address]Dr.Benoit DontaeHematocrit (Bld) [Volume fraction]40.3 %Likncm44.0-48.0The [facility] CenterComment on above:Performed By: #### CBC ####[facility] Cjyksseptx[address] [place], [place] [address]Dr.Benoit DiggsHemoglobin (Bld) [Mass/Vol]12.6 g/dL Akpyav79.0-16.0The [facility] CenterComment on above:Performed By: #### CBC ####[facility] T[address]xnds[address] [place], [place] [address]Dr. Benoit ChangIG #0.04 10e3/ulCritically high0.00-0.03The [facility] CenterComment on above:Performed By: #### CBC ####[facility] Apgpngiaef[address] [place], [place] [address]Dr.Benoit DiggsIG %0.5 %Normal0.0-0.5The [facility] CenterComment on above:Performed By: #### CBC ####[facility] Ornlzksjxg[address] [place], [place] [address]Dr.Benoit DiggsLYMPH #3.0 103/ulNormal1.2-3.8The [facility] CenterComment on above:Performed By: #### CBC ####[facility] Mitdvrlfua[address] [place], [place] [address]Dr. Beniot DiggsLymphocytes/100 WBC (Bld)36.0 %Jabdor85.5-60.0The [facility] Comment on above:Performed By: #### CBC ####[facility] Plgyynaysu[address] [place], [place] [address]Dr.Benoit DiggsMANUAL DIFF REQNONormalThe [facility] CenterComment on above:Performed By: #### CBC ####[facility] Ylrgpomfng[address] [place], [place] [address]Dr.Benoit DiggsMCH (RBC) [Entitic mass]25.3 pgCritically low26.7-34.0The [facility] CenterComment on above:Performed By: #### CBC ####[facility] Zwbvwmahkj[address] [place], [place] [address]Dr.Benoit DiggsMCHC (RBC) [Mass/Vol]31.3 g/dLNormal 29.9-35.2The [facility] CenterComment on above:Performed By: #### CBC ####[facility] Ikmchubagz56[address] [place], [place] [address]Dr. Benoit DiggsMCV (RBC) [Entitic vol]80.9 fLCritically low81.0-99.0The [facility] CenterComment on above:Performed By: #### CBC ####[facility] Jlylqvzzmw[address] [place], [place] [address]Dr.Benoit DiggsMONO #0.4 103/ulNormal0.3-0.8The [facility] CenterComment on above:Performed By: #### CBC ####[facility] Qrnhvgjygs[address] [place], [place] [address]Dr. Benoit DontaeMonocytes/100 WBC (Bld)4.8 %Normal1.7-12.0The [facility] Comment on above:Performed By: #### CBC ####[facility] Vxkhhvwkal[address] [place], [place] [address]Dr.Benoit DiggsNEUT #4.4 103/ulNormal1.4-6.5 The [facility] CenterComment on above:Performed By: #### CBC ####[facility] Rsjaauwtxz[address] [place], [place] [address]Dr.Benoit Diggs Neutrophils/100 WBC (Bld)53.0 %Jqpuhp10.0-75.0The [facility] CenterComment on above:Performed By: #### CBC ####[facility] Yojgcjfjjr[address] [place], [place] [address]Dr.Karyaurora DontaePlatelet mean volume (Bld) [Entitic vol] 10.8 fLNormal9.5-13.5The [facility] CenterComment on above:Performed By: #### CBC ####[facility] [address] [place] [address]Dr. Benoit DiggsPLT410 103/avArijpx347-883Ipp [facility] CenterComment on above: Performed By: #### CBC ####[facility] Aborvqtqmy[address] [place] [address]Dr.Benoit DiggsRBC4.98 106/ulNormal4.20-5.40The [facility] CenterComment on above:Performed By: #### CBC ####[facility] Qnnggfasnh[address] [place], [place] [address]Dr.Benoit DiggsWBC8.3 103/ul Normal4.0-11.0The [facility] CenterComment on above:Performed By: #### CBC ####[facility] Cvctqnevis[address] [place], [place] [address]Dr. Karyaurora DontaeGLYCOHEMOGLOBIN A1Con 56-65-6966LEN RECOMMENDATIONSEE The Surgical Hospital at SouthwoodsComment on above:Result Comment: ADA RECOMMENDED LIMIT 4.0 - 6.0 ADA THERAPEUTIC TARGET < 7.0 ACTION SUGGESTED > 7.0Performed By: #### A1C ####[facility] Muupeiyupr[address] [place], [place] [address]Dr. Karyaurora DontaeGlucose [Mass/Vol]100 mg/dLOur Lady of Mercy Hospital - AndersonComtrinity health [facility] on above:Performed By: #### A1C ####[facility] Rxviobnstu7[address] [place], [place] [address]Dr.Karyaurora QnbfqTyD4n (Bld) [Mass fraction]5.1 %Normal 4.5-6.2The [facility] CenterComment on above:Performed By: #### A1C ####[facility] Xjgnxwvtoc[address] [place], [place] [address]Dr.Benoit DiggsLIPID PROFILEon 75-04-8895PNHZ-HDL RATIO NORMSEE [facility] Comment on above:Result Comment: 3.3 - 4.4 LOW RISK 4.4 - 7.1 AVERAGE RISK 7.1 - 11.0 MODERATE RISK >11.0 HIGH RISKPerformed By: #### LIVER, LIPID, BMP, TSH ####[facility] [address] [place] [address]Dr. Yilan ChangCholesterol [Mass/Vol]184 mg/dLNormal<=200The [facility] Comment on above:Performed By: #### LIVER, LIPID, BMP, TSH ####[facility] Yrkjarabmg[address] [place] [address]Dr. Yilan ChangCholesterol in HDL [Mass/Vol]52 mg/iLWbgghu46-92Ezl [facility] CenterComment on above: Performed By: #### LIVER, LIPID, BMP, TSH ####[facility] Rdiuftceyn[address] [place] [address]Dr. Yilan ChangCholesterol in LDL [Mass/Vol] 114.8 mg/dLNoBrown Memorial HospitalComment on above:Performed By: #### LIVER, LIPID, BMP, TSH ####[facility] Wfcbdwmsdn[address] [place], [place] [address]Dr. Yilan ChangCholesterol.total/Cholesterol in HDL [Mass ratio]3.5 {ratio}NormalThe [facility] CenterComment on above:Performed By: #### LIVER, LIPID, BMP, TSH ####[facility] [address]neursgzvl[address] [place] [address]Dr. Yilan ChangHDL NORMAL> or = 60 mg/dl - LOW CARDIOVASCULAR RISK <40 mg/dl - HIGH CARDIOVASCULAR RISKNoBrown Memorial HospitalComment on above: Performed By: #### LIVER, LIPID, BMP, TSH ####[facility] [address]xvvnqqgi[address] [place] [address]Dr. Yilan ChangLDL CALC NORMALSEE BELOW NormalThe [facility] CenterComment on above:Result Comment: <100 mg/dl OPTIMAL 100 - 129 mg/dl NEAR OR ABOVE OPTIMAL 130 - 159 mg/dl BORDERLINE HIGH 160 - 189 mg/dl HIGH >190 mg/dl VERY HIGHPerformed By: #### LIVER, LIPID, BMP, TSH ####[facility] [address]spaivka[address] [place] [address]Dr. Yilan ChangTriglyceride [Mass/Vol]86 mg/dLNormal<=150The [facility] Comment on above:Performed By: #### LIVER, LIPID, BMP, TSH ####[facility] Otsalmlnqx[address] [place] [address]Dr. Yilan ChangVLDL CALC17.2 mg/dLNormalThe [facility] CenterComment on above:Performed By: #### LIVER, LIPID, BMP, TSH ####[facility] X[address]os[address]ipe[address] [place] [address]Dr. Benoit DiggsLIVER PROFILEon 77-35-0442Orntfsp [Mass/Vol]3.3 g/dL Critically low3.4-5.0The [facility] CenterComment on above:Performed By: #### LIVER, LIPID, BMP, TSH ####[facility] Mygsxtsqec6[address] [place] [address]Dr. Yilan ChangAlbumin/Globulin [Mass ratio]0.8 {ratio}NormalThe [facility] CenterComment on above:Performed By: #### LIVER, LIPID, BMP, TSH ####[facility] Hxtcojqmvm[address] [place] [address]Dr. Yilan ChangALP [Catalytic activity/Vol]110 U/DNtlncs82-565Ddx [facility] CenterComment on above:Performed By: #### LIVER, LIPID, BMP, TSH ####[facility] Eoqlmlhhgh[address] [place], [place] [address]Dr. Yilan ChangALT [Catalytic activity/Vol]25 U/HLrtvgl73-07Zfw [facility] Comment on above:Performed By: #### LIVER, LIPID, BMP, TSH ####[facility] Gvmgsoydbj[address] [place], [place] [address]Dr. Yilan ChangAST [Catalytic activity/Vol]20 U/FVkzzgj41-67Mbk [facility] CenterComment on above:Performed By: #### LIVER, LIPID, BMP, TSH ####[facility] Adtufrlvmd[address] [place], [place] [address]Dr. Yilan ChangBILI, CONJUGATED0.1 mg/dLNormal0.0-0.2 The [facility] CenterComment on above:Performed By: #### LIVER, LIPID, BMP, TSH ####[facility] Ffdgkequyd[address] [place], [place] [address]Dr. Yilan ChangBilirubin [Mass/Vol]0.4 mg/dLNormal0.2-1.0The [facility] Comment on above:Performed By: #### LIVER, LIPID, BMP, TSH ####[facility] Dagerbcxmn[address] [place] [address]Dr. Benoit ChangGlobulin (S) [Mass/Vol]3.9 g/dLNormalThe [facility] CenterComment on above:Performed By: #### LIVER, LIPID, BMP, TSH ####[facility] Xyeqyqhtox[address] [place] [address]Dr. Benoit ChangProtein [Mass/Vol]7.2 g/dLNormal6.4-8.2 The [facility] CenterComment on above:Performed By: #### LIVER, LIPID, BMP, TSH ####[facility] Qeraozoeeh[address] [place] [address]Dr. Benoit DiggsPROF CHEM 8 (BAS METB)on 61-49-9299Kbmxe gap [Moles/Vol]13.2 mmol/L NormalMercy Health Urbana HospitalComment on above:Performed By: #### CBC #### [facility] [address] [place] [address] [address] Benoit DiggsCalcium [Mass/Vol]9.2 mg/dLNormal8.5-10.1[facility] Comment on above:Performed By: #### CBC #### [facility] [address] [place] [address] [address] Benoit DiggsChloride [Moles/Vol]108 mmol/LCritically mnco34-756Fzs [facility] CenterComment on above:Performed By: #### CBC #### [facility] [address] [place] [address] [address] Benoit DiggsCO2 [Moles/Vol]27.9 mmol/TFbqqix09.0-32.0The [facility] Comment on above:Performed By: #### CBC #### [facility] [address] [place] [address] [address] Benoit DiggsCreatinine [Mass/Vol]0.62 mg/dLNormal0.55-1.02[facility]rbana HospitalComment on above:Performed By: #### CBC #### [facility] [address] [place] [address] [address] Benoit KrausGFR-AF SOUTH AFRICAN>60Normal>=60The [facility] CenterComment on above:Performed By: #### CBC #### [facility] [address] [place] [address] [address] Benoit KrausGFR-NON AF SOUTH AFRICAN>60Normal>=60The [facility] CenterComment on above:Performed By: #### CBC #### [facility] [address] [place] [address] [address] Benoit DiggsGlucose [Mass/Vol]92 mg/cCJjuviz26-733Vmq [facility] Comment on above:Performed By: #### CBC #### [facility] [address] [place] [address] Dr. Benoit DiggsPotassium [Moles/Vol]4.1 mmol/LNormal3.5-5.1[facility] Comment on above:Performed By: #### CBC #### [facility] [address] [place] [address] [address] Benoit DiggsSodium [Moles/Vol]145 mmol/TSukisv190-360BseMercy Health Urbana Hospital Comment on above:Performed By: #### CBC #### [facility] [address] [place] [address] [address] Benoit DiggsUrea nitrogen [Mass/Vol]8.0 mg/dLNormal7.0-18.0The [facility] CenterComment on above:Performed By: #### CBC #### [facility] [address] [place] [address] [address] Benoit Sanchez nitrogen/Creatinine [Mass ratio]12.9 mg/mgNormalThe [facility] CenterComment on above:Performed By: #### CBC #### [facility] [address] [place] [address] [address] Benoit Becerra 66-84-2696EEO8.318 uIU/mLNormal0.358-3.740The [facility] CenterComment on above:Performed By: #### CBC #### [facility] [address] [place] [address] Dr. Benoit Oseguera AUTO DIFFon 99-82-8575KAIF #0.1 103/ulNormal0.0-0.1The [facility] CenterComment on above:Performed By: #### CBC #### [facility] [address] [place] [address] Dr. Benoit DiggsBasophils/100 WBC (Bld)0.7 %Normal0.2-2.0The [facility] Comment on above:Performed By: #### CBC #### [facility] [address] [place] [address] Dr. Benoit Aleman #0.4 103/ulNormal0.0-0.7The [facility] CenterComment on above: Performed By: #### CBC #### [facility] [address] [place] [address] Dr. Benoit Krausosinophils/100 WBC (Bld)3.8 %Normal0.9-7.0The [facility] Comment on above:Performed By: #### CBC #### [facility] [address] [place] [address] Dr. Benoit Krausrythrocyte distribution width (RBC) [Ratio]15.2 %Critically high 11.0-15.0The [facility] CenterComment on above:Performed By: #### CBC #### [facility] [address] [place] [address] Dr. Benoit DiggsHematocrit (Bld) [Volume fraction]28.7 %Critically low36.0-48.0 The [facility] CenterComment on above:Performed By: #### CBC #### [facility] [address] [place] [address] Dr. Benoit DiggsHemoglobin (Bld) [Mass/Vol]9.1 g/dLCritically low12.0-16.0The [facility] CenterComment on above:Performed By: #### CBC #### [facility] [address] [place] [address] Dr. Benoit Amado #0.05 10e3/ulCritically high0.00-0.03The [facility] Comment on above:Performed By: #### CBC #### [facility] [address] [place] [address] Dr. Benoit Amado %0.5 %Normal0.0-0.5The [facility] CenterComment on above: Performed By: #### CBC #### [facility] [address] [place] [address] Dr. Benoit Dennis #3.3 103/ulNormal1.2-3.8The [facility] CenterComment on above:Performed By: #### CBC #### [facility] [address] [place] [address] Dr. Benoit Beckmanhocytes/100 WBC (Bld)31.8 %Pxodtw61.5-60.0The [facility] CenterComment on above:Performed By: #### CBC #### [facility] [address] [place] [address] Dr. Benoit FuentesUAL DIFF REQNONormalThe [facility] CenterComment on above: Performed By: #### CBC #### [facility] [address] [place] [address] Dr. Benoit Fisher (RBC) [Entitic mass]25.3 pgCritically low26.7-34.0The [facility] CenterComment on above:Performed By: #### CBC #### [facility] [address] [place] [address] Dr. Benoit Lima (RBC) [Mass/Vol]31.7 g/kBEnaoik95.9-35.2The [facility] CenterComment on above:Performed By: #### CBC #### [facility] [address] [place] [address] Dr. Benoit Lima (RBC) [Entitic vol]79.9 fLCritically low81.0-99.0The [facility] CenterComment on above:Performed By: #### CBC #### [facility] [address] [place] [address] Dr. Benoit Castellano #0.7 103/ulNormal0.3-0.8The [facility] CenterComment on above:Performed By: #### CBC #### [facility] [address] [place] [address] Dr. Benoit Funezocytes/100 WBC (Bld)7.2 %Normal1.7-12.0The [facility] Comment on above:Performed By: #### CBC #### [facility] [address] [place] [address] Dr. Benoit Amaya #5.8 103/ulNormal1.4-6.5The [facility] CenterComment on above:Performed By: #### CBC #### [facility] [address] [place] [address] Dr. Benoit Herrerautrophils/100 WBC (Bld)56.0 %Jvkquv91.0-75.0The [facility] CenterComment on above:Performed By: #### CBC #### [facility] [address] [place] [address] Dr. Benoit Pearllet mean volume (Bld) [Entitic vol]10.5 fLNormal9.5-13.5The [facility] CenterComment on above:Performed By: #### CBC #### [facility] [address] [place] [address] Dr. Benoit DiggsPLT152 103/rwXkurap362-104Jnz [facility] CenterComment on above: Performed By: #### CBC #### [facility] [address] [place] [address] Dr. Benoit DiggsRBC3.59 106/ulCritically low4.20-5.40The [facility] CenterComment on above:Performed By: #### CBC #### [facility] [address] [place] [address] Dr. Benoit DiggsWBC10.3 103/ulNormal4.0-11.0The [facility] CenterComment on above:Performed By: #### CBC #### [facility] [address] [place] [address] Dr. Benoit Oseguera AUTO DIFFon 03-01-5483JBYX #0.0 103/ulNormal0.0-0.1The [facility] CenterComment on above:Performed By: #### CBC #### [facility] [address] [address] [address] Benoit DiggsBasophils/100 WBC (Bld)0.4 %Normal0.2-2.0The [facility] Comment on above:Performed By: #### CBC #### [facility] [address] [place] [address] Dr. Benoit Aleman #0.3 103/ulNormal0.0-0.7The [facility] CenterComment on above: Performed By: #### CBC #### [facility] [address] [place] [address] Dr. Benoit Krausosinophils/100 WBC (Bld)3.1 %Normal0.9-7.0The [facility] Comment on above:Performed By: #### CBC #### [facility] [address] [place] [address] Dr. Benoit Krausrythrocyte distribution width (RBC) [Ratio]15.5 %Critically high 11.0-15.0The [facility] CenterComment on above:Performed By: #### CBC #### [facility] [address] [place] [address] Dr. Benoit DiggsHematocrit (Bld) [Volume fraction]22.0 %Critically low36.0-48.0 The [facility] CenterComment on above:Performed By: #### CBC #### [facility] [address] [place] [address] Dr. Benoit DiggsHemoglobin (Bld) [Mass/Vol]6.8 g/dLCritically low12.0-16.0The [facility] CenterComment on above:Performed By: #### CBC #### [facility] [address] [place] [address] Dr. Benoit Amado #0.05 10e3/ulCritically high0.00-0.03The [facility] Comment on above:Performed By: #### CBC #### [facility] [address] [address] [address] Benoit Amado %0.5 %Normal0.0-0.5The [facility] CenterComment on above: Performed By: #### CBC #### [facility] [address] [address] [address] Benoit Dennis #2.9 103/ulNormal1.2-3.8The [facility] CenterComment on above:Performed By: #### CBC #### [facility] [address] [address] [address] Benoit Beckmanhocytes/100 WBC (Bld)31.0 %Fybdfp57.5-60.0The [facility] CenterComment on above:Performed By: #### CBC #### [facility] [address] [place] [address] Dr. Benoit FuentesUAL DIFF REQNONormalThe [facility] CenterComment on above: Performed By: #### CBC #### [facility] [address] [place] [address] Dr. Benoit Lima (RBC) [Entitic mass]24.6 pgCritically low26.7-34.0The [facility] Hospitalment on above:Performed By: #### CBC #### [facility] [address] [place] [address] Dr. Benoit Lima (RBC) [Mass/Vol]30.9 g/jFZjblsn18.9-35.2The [facility] CenterComment on above:Performed By: #### CBC #### [facility] [address] [place] [address] Dr. Benoit Lima (RBC) [Entitic vol]79.7 fLCritically low81.0-99.0The [facility] CenterComment on above:Performed By: #### CBC #### [facility] [address] [place] [address] Dr. Benoit Castellano #0.8 103/ulNormal0.3-0.8The [facility] HospitalComment on above:Performed By: #### CBC #### [facility] [address] [place] [address] Dr. Benoit Funezocytes/100 WBC (Bld)7.9 %Normal1.7-12.0The [facility] on above:Performed By: #### CBC #### [facility] [address] [place] [address] Dr. Benoit HerreraUT #5.4 103/ulNormal1.4-6.5The [facility] CenterComment on above:Performed By: #### CBC #### [facility] [address] [place] [address] Dr. Benoit Herrerautrophils/100 WBC (Bld)57.1 %Oqsmzm98.0-75.0The [facility] CenterComment on above:Performed By: #### CBC #### [facility] [address] [place] [address] Dr. Benoit DiggsPlatelet mean volume (Bld) [Entitic vol]11.9 fLNormal9.5-13.5The [facility] CenterComment on above:Performed By: #### CBC #### [facility] [address] [place] [address] Dr. Benoit DiggsPLT180 103/hrUqarmm419-872Zra [facility] CenterComment on above: Performed By: #### CBC #### [facility] [address] [place] [address] Dr. Benoit DiggsRBC2.76 106/ulCritically low4.20-5.40The [facility] CenterComment on above:Performed By: #### CBC #### [facility] [address] [place] [address] Dr. Benoit DiggsWBC9.5 103/ulNormal4.0-11.0The [facility] CenterComtrinity health [facility] on above: Performed By: #### CBC #### [facility] [address] [place] [address] Dr. Benoit Ramírez 19-96-5131ZIVIYAKDUlokgirtNegpddXVTNIKYPLwq [facility] CenterComment on above:Performed By: #### CBC #### [facility] [address] [address] [address] Benoit Oseguera AUTO DIFFon 44-85-8975BKGG #0.1 103/ulNormal0.0-0.1The [facility] CenterComment on above:Performed By: #### CBC ####[facility] [address] [place], [place] [address]DrQuincy DiggsBasophils/100 WBC (Bld)0.6 %Normal0.2-2.0The [facility] CenterComment on above:Performed By: #### CBC ####[facility] [address] [place] [address] ChangEO #0.4 103/ulNormal0.0-0.7The [facility] CenterComment on above:Performed By: #### CBC ####[facility] [address] [place], [place] [address]Dr.Yilan Krausosinophils/100 WBC (Bld)3.5 %Normal 0.9-7.0The [facility] CenterComment on above:Performed By: #### CBC ####[facility] [address] [place], [place] [address]Dr.Yilan Diggs Erythrocyte distribution width (RBC) [Ratio]15.4 %Critically high11.0-15.0The [facility] CenterComment on above:Performed By: #### CBC ####[facility] [address] [place], [place] [address]DrQuincy DiggsHematocrit (Bld) [Volume fraction]26.4 %Critically low36.0-48.0The [facility] CenterComment on above:Performed By: #### CBC ####[facility] [address] [place], [place] [address]DrQuincy DiggsHemoglobin (Bld) [Mass/Vol]8.4 g/dL Critically low12.0-16.0The [facility] CenterComment on above:Performed By: #### CBC ####[facility] K[address] [place], [place] [address]Dr. Benoit DiggsIG #0.04 10e3/ulCritically high0.00-0.03The [facility] CenterComment on above:Performed By: #### CBC ####[facility] [address] [address]Dr.Benoit DiggsIG %0.4 %Normal0.0-0.5The [facility] CenterComment on above:Performed By: #### CBC ####[facility] [address] [place], [place] [address]Dr.Benoit DiggsLYMPH #2.8 103/ulNormal1.2-3.8The [facility] CenterComment on above:Performed By: #### CBC ####[facility] Zam[address]ak[address] [place], [place] [address]Dr. Benoit DiggsLymphocytes/100 WBC (Bld)26.9 %Vbxbhw99.5-60.0The [facility] Comment on above:Performed By: #### CBC ####[facility] D[address] [place], [place] [address]Dr.Benoit DiggsMANUAL DIFF REQNONormalThe [facility] CenterComment on above:Performed By: #### CBC ####[facility] Gutsxpiske[address] [place], [place] [address]Dr.Benoit DiggsA.O. [facility] (RBC) [Entitic mass]24.7 pgCritically low26.7-34.0The [facility] CenterComment on above:Performed By: #### CBC ####[facility] Rgnxut[address] [place], [place] [address]Dr.Benoit DiggsHC (RBC) [Mass/Vol]31.8 g/dLNormal 29.9-35.2The [facility] CenterComment on above:Performed By: #### CBC ####[facility] Mnvhce[address]yj[address] [place], [place] [address]Dr. Benoit DiggsV (RBC) [Entitic vol]77.6 fLCritically low81.0-99.0The [facility] CenterComment on above:Performed By: #### CBC ####[facility] [address] [address]Dr.Benoit DiggsMONO #0.7 103/ulNormal0.3-0.8The [facility] CenterComment on above:Performed By: #### CBC ####[facility] [address] [place], [place] [address]Dr. Yilan ChangMonocytes/100 WBC (Bld)6.2 %Normal1.7-12.0The [facility] Comment on above:Performed By: #### CBC ####[facility] Arn[address] [place], [place] [address]Dr.Yilan ChangNEUT #6.5 103/ulNormal1.4-6.5 The [facility] CenterComment on above:Performed By: #### CBC ####[facility] Vitlmv[address] [place], [place] [address]Dr.Benoit Diggs Neutrophils/100 WBC (Bld)62.4 %Zhadry17.0-75.0The [facility] CenterComment on above:Performed By: #### CBC ####[facility] [address]is[address] [place], [place] [address]Dr.Benoit ChangPlatelet mean volume (Bld) [Entitic vol] 11.0 fLNormal9.5-13.5The [facility] CenterComment on above:Performed By: #### CBC ####[facility] S[address] [place], [place] [address]Dr. Yilan FbookSVD513 103/zsAfkbmx324-546Xzs [facility] CenterComment on above: Performed By: #### CBC ####[facility] [address] [place], [place] [address]Dr.Yilan ChangRBC3.40 106/ulCritically low4.20-5.40The [facility] CenterComment on above:Performed By: #### CBC ####[facility] [address] [place], [place] [address]Dr.Yilan IzdkdVCG53.4 103/ul Normal4.0-11.0The [facility] CenterComment on above:Performed By: #### CBC ####[facility] [address] [address]Dr. Benoit Jennings SCREEN RAPID (URINE)on 79-08-8567PTKXcpavkojEnulqjDJFYKNQWRvl [facility] HospitalComment on above:Performed By: #### CBC #### [facility] [address] [place] [address] Dr. Benoit DiggsBARNegativeNormmnNEGGenesis HospitalComtrinity health [facility] on above: Performed By: #### CBC #### [facility] [address] [address] [address] Benoit RiosPNegativeNormalNEGGenesis HospitalComtrinity health [facility] on above: Performed By: #### CBC #### [facility] [address] [place] [address] Dr. Benoit DiggsBZONegativeNormmnNEGGenesis HospitalComtrinity health [facility] on above: Performed By: #### CBC #### [facility] [address] [place] [address] Dr. Benoit RamirezCNegativermmnNEGGenesis HospitalComtrinity health [facility] on above: Performed By: #### CBC #### [facility] [address] [place] [address] Dr. Benoit WagnerMarietta Osteopathic ClinicComtrinity health [facility] on above: Result Comment: AMP (Amphetamine): 500ng/mL, BAR (Barbituates): 200 ng/mL, BZO (Benzodiazepines): 150 ng/mL, BUP (Buprenorphine): 10 ng/mL, JOSE MANUEL (Cocaine): 150 ng/mL, mAMP (Methamphetamine): 500 ng/mL, MTD (Methadone): 200 ng/mL, OPI (Opiates): 100 ng/mL, OXY (Oxycodone): 100 ng/mL, PCP (Phencyclidine): 25 ng/mL, PPX (Propoxyphene): 300 ng/mL, THC (Cannabinoids): 50 ng/mL, TCA (Trycyclic Antidepressants): 300 ng/mLPerformed By: #### CBC #### [facility] [address] [place] [address] Dr. Benoit Jennings CUT HEADERDRUG CLASS TEST SYSTEM CUT-OFF CONCENTRATIONS ARE FOLLOWS:NormalThe [facility] HospitalComment on above:Performed By: #### CBC #### [facility] [address] [address] [address] Benoit DiggsmAMPNegativeNormalNEGATIVEMercy Health Urbana HospitalComment on above: Performed By: #### CBC #### [facility] [address] [place] [address] Dr. Benoit DiggsMTDNegativeNormalNEGATIVEMercy Health Urbana HospitalComment on above: Performed By: #### CBC #### [facility] [address] [address] [address] Benoit DiggsOPINegativeNormalNEGATIVEMercy Health Urbana HospitalComment on above: Performed By: #### CBC #### [facility] [address] [place] [address] Dr. Benoit DiggsOXYNegativeNormalNEGATIVEMercy Health Urbana HospitalComment on above: Performed By: #### CBC #### [facility] [address] [address] [address] Benoit DiggsPCPNegativeNormalNEGATIVEMercy Health Urbana HospitalComtrinity health [facility] on above: Performed By: #### CBC #### [facility] [address] [place] [address] Dr. Benoit DiggsPPXNegativeNormalNEGSelect Medical Specialty Hospital [facility] [place] on above: Performed By: #### CBC #### [facility] [address] [place] [address] Dr. Benoit DiggsTCANegativeNormalNEGATIVEOhiohealth Dublin Methodist Hospital HospitalComtrinity health [facility] on above: Performed By: #### CBC #### [facility] [address] [place] [address] Dr. Benoit DiggsTHCNegativeNormalNEGATIVESelect Medical Specialty Hospital - Trumbullment on above: Performed By: #### CBC #### [facility] [address] [place] [address] Dr. Benoit Delgado AND SCREENon [id number] AND SCREENNegativeNormalThe [facility] CenterComment on above:Performed By: #### TNS #### [facility] [address] [address] [address] Benoit Wiseman (CLEAN/CATCH) CIVIL RIGHTS ATTORNEY/MICRO IF IND.on 46-37-0259Teyacnnjp Ql (U) NegativeNormalNEGATIVESelect Medical Specialty Hospital - Trumbullment on above:Performed By: #### CBC #### [facility] [address] [address] [address] Benoit DiggsClarity (U)CLEARNormalCLEARSelect Medical Specialty Hospital - Trumbullment on above: Performed By: #### CBC #### [facility] [address] [address] [address] Benoit DiggsColor (U)YELLOWNormalYELLOWMercy Health Urbana HospitalComtrinity health [facility] on above: Performed By: #### CBC #### [facility] [address] [place] [address] Dr. Benoit DiggsGlucose Ql (U)NegativeNormalNEGATIVEMercy Health Urbana HospitalComment on above:Performed By: #### CBC #### [facility] [address] [address] [address] Benoit DiggsHemoglobin Ql (U)NegativeNormalNEGTriHealth Bethesda [facility] Hospital on above:Performed By: #### CBC #### [facility] [address] [address] [address] Benoit DiggsKetones Ql (U)NegativeNormalNEGATIVESelect Medical Specialty Hospital - Trumbullment on above:Performed By: #### CBC #### [facility] [address] [address] [address] Benoit DiggsLEUKOCYTESNegativeNormalNEGATIVEHolzer Hospital on above:Performed By: #### CBC #### [facility] [address] [address] [address] Benoit DiggsNitrite Ql (U)NegativeNormalNEGATIVEHolzer Hospital on above:Performed By: #### CBC #### [facility] [address] [place] [address] Dr. Benoit DiggspH (U)6.0 [pH]Normal5-9The [facility] HospitalComment on above: Performed By: #### CBC #### [facility] [address] [place] [address] Dr. Benoit DiggsSPEC GRAVITY1.765Aenbiv5.005-<=1.025The [facility] CenterComment on above:Performed By: #### CBC #### [facility] [address] [place] [address] Dr. Benoit Wiseman PROTEINTRACENormalNEGATIVE/ TRACEThe [facility] CenterComment on above:Performed By: #### CBC #### [facility] [address] [place] [address] Dr. Benoit Veras MICRO INDNOT INDICATEDNormalThe [facility] CenterComment on above:Performed By: #### CBC #### [facility] [address] [place] [address] Dr. Benoit Milesbilinogen Qn (U)4 {Nadege'U}/dLAbnormal0.2 - 1.0The [facility] Hospitalment on above:Performed By: #### CBC #### [facility] [address] [place] [address] Dr. Benoit GusmanLTPAULINE URINEon [id number] URINECulture Observations: MODERATE GROWTH OF MIXED GENITAL RIZWAN. NO POTENTIAL PATHOGENS SEEN.NormalThe [facility] CenterComment on above:Performed By: #### URCX #### [facility] [address] [place] [address] Dr. Benoit Wiseman (CLEAN/CATCH) CIVIL RIGHTS ATTORNEY/MICRO IF IND.on 66-82-5290Fuqfteinh Ql (U) SMALLAbnormalNEGATIVEThe [facility] CenterComment on above:Performed By: #### CBC #### [facility] [address] [place] [address] Dr. Benoit Rodrigezarity (U)CLEARNormalCLEARThe [facility] CenterComment on above: Performed By: #### CBC #### [facility] [address] [place] [address] Dr. Benoit Loya (U)DK. ORANGEAbnormalYELLOWMercy Health Urbana HospitalComment on above:Performed By: #### CBC #### [facility] [address] [address] [address] Benoit DiggsGlucose Ql (U)NegativeNormalNEGATIVEMercy Health Urbana HospitalComment on above:Performed By: #### CBC #### [facility] [address] [address] [address] Benoit DiggsHemoglobin Ql (U)NegativeNormalNEGGenesis Hospital Comment on above:Performed By: #### CBC #### [facility] [address] [address] [address] Benoit DiggsKetones Ql (U)TRACEAbnormalNEGATIVEMercy Health Urbana HospitalComment on above:Performed By: #### CBC #### [facility] [address] [place] [address] Dr. Benoit DiggsLEUKOCYTESSMALLAbnoalNEGGenesis HospitalComment on above:Performed By: #### CBC #### [facility] [address] [place] [address] Dr. Benoit DiggsNitrite Ql (U)NegativeNormalNEGGenesis HospitalComment on above:Performed By: #### CBC #### [facility] [address] [place] [address] Dr. Benoit DiggspH (U)5.5 [pH]Normal5-9[facility] HospitalComment on above: Performed By: #### CBC #### [facility] [address] [place] [address] Dr. Benoit DiggsSPEC GRAVITY>=1.048Ujcnfmii1.005-<=1.025[facility] Comment on above:Performed By: #### CBC #### [facility] [address] [address] [address] Benoit Wiseman BMQFNVP515 mg/dlAbnoalNEGCARTERET HEALTH CARE/ TRACEMercy Health [facility] Hospital Comment on above:Performed By: #### CBC #### [facility] [address] [place] [address] Dr. Benoit Veras MICRO INDINDICATEDNoalThOhioHealth Riverside Methodist HospitalComment on above: Performed By: #### CBC #### [facility] [address] [address] [address] Benoit Kahn Qn (U)8 {Nadege'U}/dLAbnormal0.2 - 1.0The [facility] on above:Performed By: #### CBC #### [facility] [address] [address] [address] Benoit Stewart MICROSCOPIC ONLYon [id number]QehqwcbrJXFY SEENHolzer Hospital on above:Performed By: #### CBC #### [facility] [address] [address] [address] Benoit Loco identified Cx Nom (U)INDICATEDNoalThUniversity Hospitals Cleveland Medical Center on above:Performed By: #### CBC #### [facility] [address] [place] [address] Dr. Benoit Norton SEENNormalNONE SEENHolzer Hospital on above:Performed By: #### CBC #### [facility] [address] [place] [address] Dr. Benoit Gomez LM Nom (Urine sed)NONE SEENNormalNONE SEENHolzer Hospital on above:Performed By: #### CBC #### [facility] [address] [place] [address] Dr. Laboy ChangEpithelial cells LM Ql (Urine sed)MANYAbnormalNONE SEEN /RAREThe [facility] on above:Performed By: #### CBC #### [facility] [address] [place] [address] Dr. Benoit TalbertMALLAbnormalNONE SEENHolzer Hospital on above:Performed By: #### CBC #### [facility] [address] [place] [address] Dr. Benoit CevallosWjsnuZEL8-45Cjzhxoyj6-3Afa [facility] on above:Performed By: #### CBC #### [facility] [address] [place] [address] Dr. Benoit ChristineRkjfdJEC69-74BbziysoyZSNA SEENThe [facility] CenterComment on above: Performed By: #### CBC #### [facility] [address] [place] [address] Dr. Benoit Villarreal B STREP CULTUREon 11-18-2022S. agalactiae Ag Ql (Unsp spec) Culture Observations: NEGATIVE FOR GROUP B STREPTOCOCCUS.NormalThe [facility] CenterComment on above: Performed By: #### GBSCX #### [facility] [address] [place] [address] Dr. Benoit Oseguera AUTO DIFFon 11-29-2277HGOW #0.0 103/ulNormal0.0-0.1The [facility] CenterComment on above:Performed By: #### CBC #### [facility] [address] [place] [address] Dr. Benoit DiggsBasophils/100 WBC (Bld)0.3 %Normal0.2-2.0[facility] Comment on above:Performed By: #### CBC #### [facility] [address] [place] [address] Dr. Benoit Aleman #0.1 103/ulNormal0.0-0.7The [facility] CenterComment on above: Performed By: #### CBC #### [facility] [address] [place] [address] Dr. Benoit Krausosinophils/100 WBC (Bld)2.0 %Normal0.9-7.0The [facility] Comment on above:Performed By: #### CBC #### [facility] [address] [place] [address] Dr. Benoit Krausrythrocyte distribution width (RBC) [Ratio]12.7 %Wxhmhr84.0-15.0 [facility] HospitalComment on above:Performed By: #### CBC #### [facility] [address] [place] [address] Dr. Benoit DiggsHematocrit (Bld) [Volume fraction]30.6 %Critically low36.0-48.0 [facility] HospitalComment on above:Performed By: #### CBC #### [facility] [address] [address] [address] Benoit DiggsHemoglobin (Bld) [Mass/Vol]10.1 g/dLCritically low12.0-16.0The [facility] CenterComment on above:Performed By: #### CBC #### [facility] [address] [address] [address] Benoit Amado #0.03 10e3/ulNormal0.00-0.03The [facility] CenterComment on above:Performed By: #### CBC #### [facility] [address] [address] [address] Benoit Amado %0.5 %Normal0.0-0.5The [facility] CenterComment on above: Performed By: #### CBC #### [facility] [address] [address] [address] Benoit Dennis #0.6 103/ulCritically low1.2-3.8The [facility] Comment on above:Performed By: #### CBC #### [facility] [address] [address] [address] Benoit Beckmanhocytes/100 WBC (Bld)10.7 %Critically low20.5-60.0The [facility] Hospitalment on above:Performed By: #### CBC #### [facility] [address] [address] [address] Benoit FuentesUAL DIFF REQNONormalThe [facility] CenterComment on above: Performed By: #### CBC #### [facility] [address] [address] [address] Benoit Lima (RBC) [Entitic mass]28.9 kkBjakei17.7-34.0The [facility] CenterComment on above:Performed By: #### CBC #### [facility] [address] [address] [address] Benoit Lima (RBC) [Mass/Vol]33.0 g/uRRfkkdv79.9-35.2The [facility] CenterComment on above:Performed By: #### CBC #### [facility] [address] [address] [address] Benoit LimaV (RBC) [Entitic vol]87.4 bAHoswfj09.0-99.0The [facility] CenterComment on above:Performed By: #### CBC #### [facility] Laboratory [address] [address] [address] Benoit Castellano #0.6 103/ulNormal0.3-0.8The [facility]field Medical CenterComment on above:Performed By: #### CBC #### [facility] [address] [place] [address] Dr. Benoit Funezocytes/100 WBC (Bld)10.9 %Normal1.7-12.0[facility] Comment on above:Performed By: #### CBC #### [facility] [address] [place] [address] Dr. Benoit Amaya #4.4 103/ulNormal1.4-6.5The [facility] Medical CenterComment on above:Performed By: #### CBC #### [facility] [address] [place] [address] Dr. Benoit Herrerautrophils/100 WBC (Bld)75.6 %Critically high43.0-75.0The [facility] Medical CenterComment on above:Performed By: #### CBC #### [facility] [address] [place] [address] Dr. Benoit Pearllet mean volume (Bld) [Entitic vol]10.9 fLNormal9.5-13.5The [facility] Medical CenterComment on above:Performed By: #### CBC #### [facility] [address] [place] [address] Dr. Benoit DiggsPLT191 103/vjJfbeck157-706Qlr [facility] CenterComment on above: Performed By: #### CBC #### [facility] [address] [place] [address] Dr. Benoit DiggsRBC3.50 106/ulCritically low4.20-5.40The [facility] Hospitalment on above:Performed By: #### CBC #### [facility] [address] [place] [address] Dr. Benoit DiggsWBC5.9 103/ulNormal4.0-11.0The [facility] Hospitalment on above: Performed By: #### CBC #### [facility] [address] [place] [address] Dr. Benoit Lancaster URINEon 28-38-5665NUGUVBH URINECulture Observations: HEAVY GROWTH OF MIXED GENITAL RIZWAN. NO POTENTIAL PATHOGENS SEEN.NormalMercy Health Urbana HospitalComment on above:Performed By: #### URCX #### [facility] [address] [place] [address] Dr. Benoit Brower URINE PROFILEon 16-86-5248Urbzjcwia Ql (U)NegativeNormal NEGATIVEMercy Health Urbana HospitalComment on above:Performed By: #### HIV12 #### [facility] [address] [place] [address] Dr. Benoit DiggsClronak (U)CLEARNormalCLEARMercy Health Urbana HospitalComment on above: Performed By: #### HIV12 #### [facility] [address] [place] [address] Dr. Benoit Loya (U)YELLOWNormalYELLOWSelect Medical Specialty Hospital - Trumbullment on above: Performed By: #### HIV12 #### [facility] [address] [place] [address] Dr. Benoit Epperson micrscopic examination will be performed if indicated. NormalMercy Health Urbana HospitalComment on above:Performed By: #### HIV12 #### [facility] [address] [place] [address] Dr. Benoit DiggsGlucose Ql (U)NegativeNormalNEGATIVEMercy Health Urbana HospitalComment on above:Performed By: #### HIV12 #### [facility] [address] [place] [address] Dr. Benoit DiggsHemoglobin Ql (U)NegativeNormalNEGATIVEOhiohealth Grant Medical Center on above:Performed By: #### HIV12 #### [facility] [address] [place] [address] Dr. Benoit Vernon Ql (U)15 mg/dlAbnormalNEGATIVEThe [facility] on above:Performed By: #### HIV12 #### [facility] [address] [place] [address] Dr. Benoit DiggsLEUKOCYTESNegativeNormalNEGATIVEThe [facility] CenterComment on above:Performed By: #### HIV12 #### [facility] [address] [place] [address] Dr. Benoit Armstrongtrvasyl Ql (U)NegativeNormalNEGATIVEThe [facility] CenterComment on above:Performed By: #### HIV12 #### [facility] [address] [place] [address] Dr. Benoit DiggspH (U)6.5 [pH]Normal5-9The [facility] CenterComment on above: Performed By: #### HIV12 #### [facility] [address] [place] [address] Dr. Benoit DiggsSPEC GRAVITY1.971Esodlh5.005-<=1.025The [facility] Medical CenterComment on above:Performed By: #### HIV12 #### [facility] [address] [place] [address] Dr. Benoit Wiseman PROTEINTRACENormalNEGATIVE/ TRACEThe [facility] CenterComment on above:Performed By: #### HIV12 #### [facility] [address] [place] [address] Dr. Benoit Veras MICRO INDINDICATEDNormalThOhioHealth Riverside Methodist HospitalComment on above: Performed By: #### HIV12 #### [facility] [address] [place] [address] Dr. Benoit Thompsoninogen Qn (U)1.0 {Nadege'U}/dLNormal0.2 - 1.0The [facility] CenterComment on above:Performed By: #### HIV12 #### [facility] [address] [place] [address] Dr. Benoit COOL AGon 27-73-3046GCLAKDJKKTVMW The [facility] Hospital at SouthwoodsComment on above:Result Comment: Negative for Flu A protein angiten. Infection due to Flu A cannot be ruled out. FluA angiten in the sample may be below the detection limit of the test.Performed By: #### HIV12 #### [facility] [address] [place] [address] Dr. Benoit DiggsINFLUBNEGHSKIMBERLY The [facility] Hospital at SouthwoodsComment on above: Result Comment: Negative for Flu B protein antigen. Infection due to Flu B cannot be ruled out. FluB antigen in the sample may be below the detection limit of the test.Performed By: #### HIV12 #### [facility] [address] [place] [address] Dr. Benoit Souza AGNegativeNormalNEGATIVE SEE COMMENTThe [facility] on above:Performed By: #### HIV12 #### [facility] [address] [place] [address] Dr. Benoit Gonzalez AGNegativeNormalNEGATIVE SEE COMMENTThe [facility] CenterComment on above:Performed By: #### HIV12 #### [facility] [address] [place] [address] Dr. Benoit DiggsINTERNAL CONTROLSWithin Normal LimitsNormalWithin Normal Limits The [facility] CenterComment on above:Performed By: #### HIV12 #### [facility] [address] [place] [address] Dr. Benoit DiggsPROF CHEM 8 (BAS METB)on 55-08-7106Vwoxk gap [Moles/Vol]11.6 mmol/LNormalThe [facility] CenterComment on above:Performed By: #### CBC #### [facility] [address] [place] [address] Dr. Benoit DiggsCalcium [Mass/Vol]8.2 mg/dLCritically low8.5-10.1The [facility] CenterComment on above:Performed By: #### CBC #### [facility] [address] [place] [address] Dr. Benoit DiggsChloride [Moles/Vol]100 mmol/OBzsksc84-961GbrMercy Health Urbana Hospital Comment on above:Performed By: #### CBC #### [facility] [address] [address] [address] Benoit DiggsCO2 [Moles/Vol]23.9 mmol/SJaxcsh42.0-32.0The [facility] Comment on above:Performed By: #### CBC #### [facility] [address] [address] [address] Benoit DiggsCreatinine [Mass/Vol]0.48 mg/dLCritically low0.55-1.02The [facility] CenterComment on above:Performed By: #### CBC #### [facility] [address] [place] [address] Dr. Laboy ChangEGFR-AF SOUTH AFRICAN>60Normal>=60The [facility] CenterComment on above:Performed By: #### CBC #### [facility] [address] [address] [address] Benoit KrausGFR-NON AF SOUTH AFRICAN>60Normal>=60The [facility] CenterComment on above:Performed By: #### CBC #### [facility] [address] [place] [address] Dr. Benoit DiggsGlucose [Mass/Vol]94 mg/qPYrqcao26-825Zsy [facility] Comment on above:Performed By: #### CBC #### [facility] [address] [address] [address] Benoit DiggsPotassium [Moles/Vol]3.5 mmol/LNormal3.5-5.1The [facility] Comment on above:Performed By: #### CBC #### [facility] [address] [address] [address] Benoit DiggsSodium [Moles/Vol]132 mmol/LCritically tpq420-631Ppr [facility] CenterComment on above:Performed By: #### CBC #### [facility] [address] [address] [address] Benoit DiggsUrea nitrogen [Mass/Vol]6.0 mg/dLCritically low7.0-18.0The [facility] CenterComment on above:Performed By: #### CBC #### [facility] [address] [address] [address] Benoit DiggsUrea nitrogen/Creatinine [Mass ratio]12.5 mg/mgNormalThe [facility] CenterComment on above:Performed By: #### CBC #### [facility] [address] [address] [address] Benoit DiggsRESPIRATORY PANEL PLUSon 38-84-7151BximoodxepJmk detectedNormal NOT DETECTEDThe [facility] CenterComment on above:Performed By: #### RSPLUS ####[facility] [address] [address]. Benoit Tierney ParapertusisNot detectedNormalNOT DETECTEDThe [facility] Comment on above:Performed By: #### RSPLUS ####[facility] [address] [place], [place] [address]Dr. Benoit Fuller. PertussisNot detected NormalNOT DETECTEDThe [facility] CenterComment on above:Performed By: #### RSPLUS ####[facility] [address] [address]Dr. Benoit DiggsChlamydia PneumoniaeNot detectedNormalNOT DETECTEDThe [facility] CenterComment on above:Performed By: #### RSPLUS ####[facility] [address] [address]Dr. Benoit Diggs Coronavirus 229ENot detectedNormalNOT DETECTEDThe [facility] CenterComment on above:Performed By: #### RSPLUS ####[facility] [address] [address]Dr. Benoit DiggsCoronavirus CKR8Owr detectedNormalNOT DETECTEDThe [facility] CenterComment on above:Performed By: #### RSPLUS ####[facility] [address] [place], [place] [address]Dr. Benoit DiggsCoronavirus MI27Tpf detectedNormalNOT DETECTEDThe [facility] Comment on above:Performed By: #### RSPLUS ####[facility] [address] [place], [place] [address]Dr. Benoit DiggsCoronavirus HX25Syc detected NormalNOT DETECTEDThe [facility] CenterComment on above:Performed By: #### RSPLUS ####[facility] P[address] [place], [place] [address]Dr. Benoit DiggsInfluenza A H1 2009DetectedAbnormalNOT DETECTEDThe [facility] CenterComment on above:Performed By: #### RSPLUS ####[facility] [address] [place], [place] [address]Dr. Benoit DiggsInfluenza A H3 Not detectedNormalNOT DETECTEDThe [facility] CenterComment on above:Performed By: #### RSPLUS ####[facility] [address] [place], [place] [address]Dr. Benoit DiggsInfluenza BNot detectedNormalNOT DETECTEDThe [facility] CenterComment on above:Performed By: #### RSPLUS ####[facility] [address] [place], [place] [address]Dr. Benoit Diggs MetapneumovirusNot detectedNormalNOT DETECTEDThe [facility] CenterComment on above:Performed By: #### RSPLUS ####[facility] [address] [place], [place] [address]Dr. Benoit DiggsMycoplas. PneumoniaeNot detectedNormal NOT DETECTEDThe [facility] CenterComment on above:Performed By: #### RSPLUS ####[facility] [address] [place], [place] [address]Dr. Karylan ChangParainfluenza 1Not detectedNormalNOT DETECTEDThe [facility] Comment on above:Performed By: #### RSPLUS ####[facility] [address] [place], [place] [address]Dr. Yilan ChangParainfluenza 2Not detected NormalNOT DETECTEDThe [facility] CenterComment on above:Performed By: #### RSPLUS ####[facility] [address]fc[address]ls[address] [place], [place] [address]Dr. Yilan ChangParainfluenza 3Not detectedNormalNOT DETECTEDThe [facility] CenterComment on above:Performed By: #### RSPLUS ####[facility] [address] [place], [place] [address]Dr. Benoit DiggsParainfluenza 4Not detectedNormalNOT DETECTEDThe [facility] on above:Performed By: #### RSPLUS ####[facility] [address] [place], [place] [address]Dr. Benoit ChangRhino/EnterovirusNot detectedNormalNOT DETECTEDThe [facility] CenterComtrinity [facility] on above:Performed By: #### RSPLUS ####[facility] [address]rx[address] [place], [place] [address]Dr. Benoit DiggsJuanis Header 1RESPIRATORY PANEL: VIRUSESNormalThe [facility] CenterComment on above: Performed By: #### RSPLUS ####[facility] I[address]ih[address] [place], [place] [address]Dr. Benoit Licea Header 2RESPIRATORY PANEL: BACTERIA NormalThe [facility] CenterComtrinity health [facility] on above:Performed By: #### RSPLUS ####[facility] [address] [place], [place] [address]Dr. Benoit DiggsRSVNot detectedNormalNOT DETECTEDThe [facility] on above:Performed By: #### RSPLUS ####[facility] [address]xug[address]ovi[address] [place], [place] [address]Dr. Benoit Farias-CoV-2 (COVID-19) RNA RANDOLPH+probe Ql (Unsp spec)Not detectedNormalNOT DETECTEDThe [facility] on above: Performed By: #### RSPLUS ####[facility] [address] [place], [place] [address]Dr. Benoit Vee Comment: When diagnostic testing is [...] for this test is supported by the [place] of [employer] and Human Service's declaration that [...] longer be used).Performed By: #### HIV12 #### [facility] [address] [place] [address] Dr. Benoit TURCIOSon 66-17-0653MGRVFHWIIQHZTQflcozuiFOKS SEEN [facility] on above:Performed By: #### HIV12 #### [facility] [address] [place] [address] Dr. Benoit Loco identified Cx Nom (U)INDICATEDNoalThUniversity Hospitals Cleveland Medical Center on above:Performed By: #### HIV12 #### [facility] [address] [place] [address] Dr. Benoit Norton SEENNormalNONE SEENHolzer Hospital on above:Performed By: #### HIV12 #### [facility] [address] [place] [address] Dr. Benoit Beckettystals LM Nom (Urine sed)NONE SEENNormalNONE SEENHolzer Hospital on above:Performed By: #### HIV12 #### [facility] [address] [place] [address] Dr. Benoit Krauspithelial cells LM Ql (Urine sed)MODERATEAbnormalNONE SEEN /RARE The [facility] CenterComtrinity health [facility] on above:Performed By: #### HIV12 #### [facility] [address] [place] [address] Dr. Benoit HessE SEENNormalNONE SEENHolzer Hospital on above:Performed By: #### HIV12 #### [facility] [address] [place] [address] Dr. Benoit JensenXdkspCGS7-6Daxtmy6-1Fvt [facility] HospitalComment on above:Performed By: #### HIV12 #### [facility] [address] [address] [address] Benoit DiggsWBC5-10AbnormalNONE SEENThe [facility] CenterComment on above: Performed By: #### HIV12 #### [facility] [address] [address] [address] Benoit Oseguera AUTO DIFFon 95-20-2595IXBP #0.1 103/ulNormal0.0-0.1The [facility] Hospitalment on above:Performed By: #### CBC #### [facility] [address] [place] [address] Dr. Benoit DiggsBasophils/100 WBC (Bld)0.5 %Normal0.2-2.0[facility] Comment on above:Performed By: #### CBC #### [facility] [address] [place] [address] Dr. Benoit Aleman #0.4 103/ulNormal0.0-0.7The [facility] on above: Performed By: #### CBC #### [facility] [address] [place] [address] Dr. Benoit Krausosinophils/100 WBC (Bld)4.1 %Normal0.9-7.0[facility] Comment on above:Performed By: #### CBC #### [facility] [address] [place] [address] Dr. Benoit Krausrythrocyte distribution width (RBC) [Ratio]12.8 %Iniqww00.0-15.0 [facility] HospitalComment on above:Performed By: #### CBC #### [facility] [address] [place] [address] Dr. Benoit DiggsHematocrit (Bld) [Volume fraction]31.4 %Critically low36.0-48.0 [facility] HospitalComtrinity health [facility] on above:Performed By: #### CBC #### [facility] [address] [place] [address] Dr. Benoit DiggsHemoglobin (Bld) [Mass/Vol]10.5 g/dLCritically low12.0-16.0The [facility] CenterComment on above:Performed By: #### CBC #### [facility] [address] [place] [address] Dr. Benoit Amado #0.05 10e3/ulCritically high0.00-0.03The [facility] Comment on above:Performed By: #### CBC #### [facility] [address] [place] [address] Dr. Benoit Amado %0.5 %Normal0.0-0.5The [facility] CenterComment on above: Performed By: #### CBC #### [facility] [address] [place] [address] Dr. Benoit Dennis #2.2 103/ulNormal1.2-3.8The [facility] CenterComment on above:Performed By: #### CBC #### [facility] [address] [place] [address] Dr. Benoit Beckmanhocytes/100 WBC (Bld)21.9 %Wklvwl94.5-60.0The [facility] CenterComment on above:Performed By: #### CBC #### [facility] [address] [place] [address] Dr. Benoit Real DIFF REQNONormalThe [facility] CenterComment on above: Performed By: #### CBC #### [facility] [address] [place] [address] Dr. Benoit Fisher (RBC) [Entitic mass]29.7 zvLrvvpl00.7-34.0The [facility] CenterComment on above:Performed By: #### CBC #### [facility] [address] [place] [address] Dr. Benoit Lima (RBC) [Mass/Vol]33.4 g/rRJewnuf76.9-35.2The [facility] CenterComment on above:Performed By: #### CBC #### [facility] [address] [place] [address] Dr. Yilan ChangMCV (RBC) [Entitic vol]89.0 rVHyjzmg28.0-99.0The [facility] CenterComment on above:Performed By: #### CBC #### [facility] [address] [place] [address] Dr. Benoit Castellano #0.6 103/ulNormal0.3-0.8The [facility] CenterComment on above:Performed By: #### CBC #### [facility] [address] [place] [address] Dr. Benoit Funezocytes/100 WBC (Bld)5.7 %Normal1.7-12.0The [facility] Comment on above:Performed By: #### CBC #### [facility] [address] [place] [address] Dr. Benoit Amaya #6.8 103/ulCritically high1.4-6.5The [facility] Comment on above:Performed By: #### CBC #### [facility] [address] [place] [address] Dr. Benoit Herrerautrophils/100 WBC (Bld)67.3 %Heytrl79.0-75.0The [facility] CenterComment on above:Performed By: #### CBC #### [facility] [address] [place] [address] Dr. Benoit Pearllet mean volume (Bld) [Entitic vol]11.0 fLNormal9.5-13.5The [facility] CenterComment on above:Performed By: #### CBC #### [facility] [address] [place] [address] Dr. Benoit RaderT215 103/qlBdflmg823-943Ruk [facility] CenterComment on above: Performed By: #### CBC #### [facility] [address] [place] [address] Dr. Benoit DiggsRBC3.53 106/ulCritically low4.20-5.40The [facility] CenterComment on above:Performed By: #### CBC #### [facility] [address] [place] [address] Dr. Benoit DiggsWBC10.2 103/ulNormal4.0-11.0[facility] HospitalComment on above:Performed By: #### CBC #### [facility] [address] [place] [address] Dr. Benoit DiggsGLUCOSE - 1HRon 23-96-0244Gptbzqh [Mass/Vol]116 mg/dLCritically kdxf10-471TmkMercy Health Urbana HospitalComment on above:Performed By: #### GLU1HR ####[facility] [address] [address]Dr. Benoit Mcconnell ACOG PANEL 2: 21 to 29on 08-13-2022..NormalMercy Health Urbana Hospital Comment on above:Performed By: #### CBC #### [facility] [address] [place] [address] Dr. Benoit Flores Gdln ACOG Vkmwpxw37-43ScvaqxDqlBrown Memorial HospitalComment on above:Performed By: #### CBC #### [facility] [address] [place] [address] Dr. Benoit DiggsDIAGNOSIS:CommentOur Lady of Mercy Hospital - AndersonComtrinity health [facility] on above: Result Comment: NEGATIVE FOR INTRAEPITHELIAL LESION OR MALIGNANCY.Performed By: #### CBC #### [facility] [address] [place] [address] Dr. Benoit DiggsMethodology:CommentNoBrown Memorial HospitalComment on above: Result Comment: This liquid based ThinPrep(R) pap test was screened with the use of an image guided system.Performed By: #### CBC #### [facility] [address] [place] [address] Dr. Benoit DiggsNote:CommentOhioHealth Grant Medical Center on above:Result Comment: The Pap smear is a screening test designed to aid in the detection of premalignant and malignant conditions of the uterine cervix. It is not a diagnostic procedure and should not be used as the sole means of detecting cervical cancer. Both false-positive and false-negative reports do occur. .Performed By: #### CBC #### [facility] [address] [place] [address] Dr. Benoit DiggsPerformed by:CommentOhioHealth Grant Medical Center on above: Result Comment: Cynthia Smith, Facility Administrator (ASCP)Performed By: #### CBC #### [facility] [address] [place] [address] Dr. Benoit DiggsReflex Criteria:CommentOhioHealth Grant Medical Center on above:Result Comment: The HPV DNA reflex criteria were not met with this specimen result therefore, no HPV testing was performed. .Performed By: #### CBC #### [facility] [address] [place] [address] Dr. Benoit DiggsSpecimen adequacy:CommentOhioHealth Grant Medical Center on above:Result Comment: Satisfactory for evaluation. No endocervical component is identified.Performed By: #### CBC #### [facility] [address] [place] [address] Dr. Benoit DiggsCHLAMYDIA/GONOCOCCUS RANDOLPH (SWAB/URINE/PAPon 98-16-5255Vzagzraof trachomatis, NAANegativeNormalNegativeThe [facility] CenterComtrinity health [facility] hospital on above: Performed By: #### HIV12 #### [facility] [address] [place] [address] Dr. Benoit DiggsNeisseria gonorrhoeae, NAANegativeNormalNegativeHolzer Hospital on above:Performed By: #### HIV12 #### [facility] [address] [place] [address] Dr. Benoit Hampton PREG INCOMPLETE ANATOMYon 52-03-0611UA PREG INCOMPLETE ANATOMY EXAMINATION: US PREG INCOMPLETE [...] Electronically authenticated by: MYLENE SULLIVAN Date: 2022-08-07 20:09[facility] PREG ANATOMY SINGLEon [id number] PREG ANATOMY SINGLE EXAMINATION: US PREG ANATOMY [...] Electronically authenticated by: AISHWARYA MAGALLON Date: 2022-07-25 17:11NoBrown Memorial HospitalAFP MATERNAL FOR SPINA BIFIDAon 10-00-6000NYE MoM0.55NoBrown Memorial HospitalComment on above:Performed By: #### HIV12 #### [facility] [address] [place] [address] Dr. Benoit Chavarria Value20.0 ng/mLNMercy Health St. Anne HospitalComment on above: Performed By: #### HIV12 #### [facility] [address] [place] [address] Dr. Benoit Chavarria, Serum for Spina BifidaReToledo Hospital Comment on above:Performed By: #### HIV12 #### [facility] [address] [place] [address] Dr. Benoit PricementKindred Hospital DaytonComment on above:Result Comment: Caitlin Palafox, Ph.D., [facility] Director . References: Available Upon Request. . Multiples Of Median Cutoffs For AFP Elevations Caro 2.5 Black 2.8 IDD 2.0 Twins 4.5 Abbreviation Definitions IDD - Insulin Dep Diabetes OSBR - Open Spina Bifida Risk . For further inquiries contact [employer] at [phone]. . This test was developed and its performance characteristics determined by [employer]. It has not been cleared or approved by the Food and Drug Administration.Performed By: #### HIV12 #### [facility] [facility] [address] [place] [address] Dr. Benoit Rodriguez Age Collection Date18.1 weeks[facility] Comment on above:Performed By: #### HIV12 #### [facility] [address] [place] [address] Dr. Benoit Gillis, Age Based onUltSouthview Medical CenterComment on above:Result Comment: 13:1 on 06/06/2022 Recalculations are not recommended when gestational dating by LMP and ultrasound are within 10 days.Performed By: #### HIV12 #### [facility] [address] [place] [address] Dr. Benoit DiggsInsulin Dep DiabetesNoNMercy Health St. Anne HospitalComment on above:Performed By: #### HIV12 #### [facility] [address] [place] [address] Dr. Benoit DgigsInterpretationKindred Hospital DaytonComment on above: Result Comment: Interpretation: Screen Negative [...] Customer Services to discuss available options. The [employer] recommends amniocentesis be offered to women age 35 and older.Performed By: #### HIV12 #### [facility] [address] [place] [address] Dr. Benoit Vornajoo Age at EDD22.1 yrOur [facility] of [facility] - AndersonComment on above:Performed By: #### HIV12 #### [facility] [address] [place] [address] Dr. Benoit Scottltiplmally GestationNoNMercy Health St. Anne HospitalComment on above: Performed By: #### HIV12 #### [facility] [address] [place] [address] Dr. Benoit DiggsOSBR Risk 1 [id number] Lady of Mercy Hospital - AndersonComment on above: Performed By: #### HIV12 #### [facility] [address] [place] [address] Dr. Benoit Stockton.NormalMercy Health Urbana HospitalComment on above:Performed By: #### HIV12 #### [facility] [address] [place] [address] Dr. Benoit MorrisCaucasianNMercy Health St. Anne HospitalComment on above: Performed By: #### HIV12 #### [facility] [address] [place] [address] Dr. Benoit DiggsTest Results:NegativeOur Lady of Mercy Hospital - AndersonComment on above: Performed By: #### HIV12 #### [facility] [address] [place] [address] Dr. Benoit Ramirez B SURFACE ANTIGEN SCREENon 40-20-6343TKcPq ScreenNegative NormalNegativeHolzer Hospital on above:Performed By: #### HIV12 #### [facility] [address] [place] [address] Dr. Benoit Watt C VIRUS AB W/ REFLEX QUANTon 18-07-1100GIY AB<0.1Normal 0.0-0.9[facility] on above:Performed By: #### HIV12 #### [facility] [address] [place] [address] Dr. Benoit DiggsInterpretation:CommentNormalThe [facility] on above:Result Comment: Negative Not infected with HCV, unless recent infection is suspected or other evidence exists to indicate HCV infection.Performed By: #### HIV12 #### [facility] [address] [place] [address] Dr. Benoit DiggsHIV 1 AND 2 WITH REFLEXon 91-12-3327NHH Screen 4th Generation wRfxNon-ReactiveNormalNon ReactiveThe [facility] on above:Result Comment: HIV Negative HIV-1/HIV-2 antibodies and HIV-1 p24 antigen were NOT detected. There is no laboratory evidence of HIV infection.Performed By: #### HIV12 #### [place] [address] [address] Benoit DiggsRPR QUANTon 29-32-4505Tddfu Plasma Reagin, QuantNon-Reactive NormalNonRea<1:1[facility] on above:Result Comment: Please Note: This test does not meet current guidelines for screening and diagnosis of syphilis. This test is intended for following treatment response in patients being treated for syphilis infection. To screen for syphilis infection, a reflex cascade that includes both RPR and a treponema-specific assay should be utilized, such as Treponema pallidum (Syphilis) Screening [place] (182658) or Rapid Plasma Reagin (RPR) Test With Reflex to Quantitative RPR and Confirmatory Treponema pallidum Antibodies (623860).Performed By: #### HIV12 #### [place] [address] Dr[address] Benoit DiggsRUBELLA AB IGGon 71-09-1901Iawiasu Antibodies, IgG3.22 index NormalImmune >0.99[facility] on above:Result Comment: Non- immune <0.90 Equivocal 0.90 - 0.99 Immune >0.99Performed By: #### CBC #### [facility] [address] [address] [address] Benoit Hampton PREG <14 WKSon 84-23-4263AE PREG <14 WKSEXAMINATION: US PREG <14 WKS [...] Electronically authenticated by: MYLENE SULLIVAN Date: 2022-06-06 22:25NoCoshoct[facility] AUTO DIFFon 62-28-6056WTOT #0.1 103/ulNormal0.0-0.1[facility]rb[facility] HospitalComment on above:Performed By: #### CBC #### [facility] [address] [place] [address] Dr. Benoit Taborsophils/100 WBC (Bld)0.6 %Normal0.2-2.0[facility] Comment on above:Performed By: #### CBC #### [facility] [address] [place] [address] Dr. Benoit Aleman #0.3 103/ulNormal0.0-0.7The [facility] CenterComment on above: Performed By: #### CBC #### [facility] [address] [place] [address] Dr. Benoit Krausosinophils/100 WBC (Bld)4.1 %Normal0.9-7.0[facility] Comment on above:Performed By: #### CBC #### [facility] [address] [place] [address] Dr. Benoit Krausrythrocyte distribution width (RBC) [Ratio]13.9 %Wujagp32.0-15.0 The [facility] CenterComment on above:Performed By: #### CBC #### [facility] [address] [place] [address] Dr. Benoit DiggsHematocrit (Bld) [Volume fraction]36.0 %Kvlvfm32.0-48.0The [facility] CenterComment on above:Performed By: #### CBC #### [facility] [address] [place] [address] Dr. Benoit DiggsHemoglobin (Bld) [Mass/Vol]12.0 g/qHFtlgqq83.0-16.0The [facility] HospitalComment on above:Performed By: #### CBC #### [facility] [address] [place] [address] Dr. Benoit Amado #0.03 10e3/ulNormal0.00-0.03The [facility] CenterComment on above:Performed By: #### CBC #### [facility] [address] [place] [address] Dr. Benoit Amado %0.4 %Normal0.0-0.5The [facility] CenterComment on above: Performed By: #### CBC #### [facility] [address] [place] [address] Dr. Benoit Dennis #2.7 103/ulNormal1.2-3.8The [facility] CenterComment on above:Performed By: #### CBC #### [facility] [address] [place] [address] Dr. Benoit Pantojamphocytes/100 WBC (Bld)33.2 %Axlzty48.5-60.0The [facility] CenterComment on above:Performed By: #### CBC #### [facility] [address] [place] [address] Dr. Benoit DiggsMANUAL DIFF REQNONormalThe [facility] CenterComment on above: Performed By: #### CBC #### [facility] [address] [place] [address] Dr. Benoit Fisher (RBC) [Entitic mass]29.4 sxTevnys67.7-34.0The [facility] CenterComment on above:Performed By: #### CBC #### [facility] [address] [address] [address] Benoit LimaHC (RBC) [Mass/Vol]33.3 g/sAXeqjiq08.9-35.2The [facility] CenterComment on above:Performed By: #### CBC #### [facility] [address] [address] [address] Benoit LimaV (RBC) [Entitic vol]88.2 wOFmhvxl45.0-99.0The [facility] HospitalComment on above:Performed By: #### CBC #### [facility] [address] [place] [address] Dr. Benoit Castellano #0.5 103/ulNormal0.3-0.8The [facility] CenterComment on above:Performed By: #### CBC #### [facility] [address] [place] [address] Dr. Benoit Funezocytes/100 WBC (Bld)6.6 %Normal1.7-12.0[facility] Comment on above:Performed By: #### CBC #### [facility] [address] [address] [address] Benoit Amaya #4.4 103/ulNormal1.4-6.5The [facility] CenterComment on above:Performed By: #### CBC #### [facility] [address] [place] [address] Dr. Benoit Herrerautrophils/100 WBC (Bld)55.1 %Qutugr09.0-75.0The [facility] CenterComment on above:Performed By: #### CBC #### [facility] [address] [address] [address] Benoit Pearllet mean volume (Bld) [Entitic vol]11.0 fLNormal9.5-13.5The [facility] CenterComment on above:Performed By: #### CBC #### [facility] [address] [address] [address] Benoit DiggsPLT225 103/rvLhwdpq368-007Mmx [facility] Hospitalment on above: Performed By: #### CBC #### [facility] [address] [address] [address] Benoit DiggsRBC4.08 106/ulCritically low4.20-5.40The [facility] Hospitalment on above:Performed By: #### CBC #### [facility] [address] [address] [address] Benoit DiggsWBC8.1 103/ulNormal4.0-11.0The [facility] Hospitalment on above: Performed By: #### CBC #### [facility] [address] [address] [address] Benoit DiggsCULTURE URINEon 86-28-9002PRUIKGY URINECulture Observations: MODERATE GROWTH OF MIXED GENITAL RIZWAN. NO POTENTIAL PATHOGENS SEEN.NormalThe [facility] Hospitalment on above:Performed By: #### URCX ####[facility] [address] [address]Dr. Benoit Diggs GLYCOHEMOGLOBIN A1Con 89-08-1458XSW RECOMMENDATIONSEE BELOWNoBrown Memorial HospitalComtrinity health [facility] on above:Result Comment: ADA RECOMMENDED LIMIT 4.0 - 6.0 ADA THERAPEUTIC TARGET < 7.0 ACTION SUGGESTED > 7.0Performed By: #### CBC #### [facility] [address] [place] [address] Dr. Benoit DiggsGlucose [Mass/Vol]105 mg/dLNoAvita Health System [facility] Hospital on above:Performed By: #### CBC #### [facility] [address] [place] [address] Dr. Benoit DiggsHbA1c (Bld) [Mass fraction]5.3 %Normal4.5-6.2[facility] on above:Performed By: #### CBC #### [facility] [address] [address] [address] Benoit Flowers BOX TEST PT SEND OUTon 87-06-9468ZQOT TO REF LAB06/06/2022 NormalThe [facility] on above:Performed By: #### HIV12 #### [facility] [address] [address] [address] Benoit DiggsTYPE AND SCREENon 40-35-5482HJUS AND SCREENNegativeOur [facility] of [facility] Hospital [facility] AndersonComment on above:Performed By: #### TNS #### [facility] [address] [place] [address] Dr. Benoit DiggsPREG QUANT HCGon 30-41-5624GWJ TAPFJ50713 mIU/mLNormalMercy Health Urbana HospitalComment on above:Performed By: #### CBC #### [facility] [address] [address] [address] Benoit DiggsHCG RANGESEE BELOWOur Lady of Mercy Hospital - AndersonComment on above: Result Comment: 5-50 0-1 WEEK 40-300 1-2 WEEKS 100-1,000 2-3 WEEKS 500-6,000 3-4 WEEKS 5,000-200,000 1-2 MONTHS 10,000-100,000 2-3 MONTHS 3,000-50,000 2ND TRIMESTER 1,000-50,000 3RD TRIMESTERPerformed By: #### CBC #### [facility] [address] [place] [address] Dr. Benoit Diggs Vital Signs Date TimeVital SignValuePerforming ZxeyntmkyHsoxoruc91-14-9831 10:55-0500Body mass index (BMI) [Ratio]53.47 kg/m2Gia LYNN Work Phone: [facility] HospitalWhtpkijdun28-86-8734 10:55-0500Body ruuzxb136.37 kgGia LYNN Work Phone: [phone] HospitalAvdruonlbl06-51-7009 10:55-0500Diastolic blood caxwzzwk08 mm[Hg]Gia LYNN Work Phone: [phone] HospitalNwjxcpbauv03-29-9835 10:55-0500Systolic blood snutxtph265 mm[Hg]Gia LYNN Work Phone: [facility] HospitalElprzqidin73-43-7164 13:55-0400Body mass index (BMI) [Ratio]53.12 kg/c9QlvnkJefferson Howard DO Work Phone: [facility] HospitalBbwijrwded75-38-2495 13:55-0400Body pvciza849.52 kgCorey Anita DO Work Phone: [phone] [place], [place] [address]Hjioxnqpuo16-56-4599 13:55-0400Diastolic blood mm[Hg]Jefferson Anita DO Work Phone: [phone] [place], [place] [address]Rfcyivrmkx89-58-6359 13:55-0400Systolic blood cwyubfuo383 mm[Hg]Jefferson Anita DO Work Phone: [phone] [place], [place] [address]Rhgboimbbx88-39-9524 14:07-0400Body mass index (BMI) [Ratio]54 kg/m2Amy Vamsi LYNN Work Phone: [phone] [place], [place] [address]Mnzckbvona37-69-5843 14:07-0400Body xxuqzf833.64 kgAmy Vamsi LYNN Work Phone: [phone] [place], [place] [address]Otqskksvot90-88-2462 14:07-0400Diastolic blood jnpytfkq76 mm[Hg]Gia LYNN Work Phone: [phone] [place], [place] [address]Jexozucacr18-40-2877 14:07-0400Systolic blood mm[Hg]Gia LYNN Work Phone: [phone] [place], [place] [address]Ygbiuwlyvr11-59-0362 13:59-0400Body mass index (BMI) [Ratio]53.17 kg/l3Ooevi Anita DO Work Phone: [phone] [place], [place] [address]Zaqxwenmzm54-29-4931 13:59-0400Body qvkleg631.64 kgCorey Anita DO Work Phone: [phone] [place], [place] [address]Zbggqamoqx33-48-6282 13:59-0400Diastolic blood sdwfptoi21 mm[Hg]Jefferson Anita DO Work Phone: [phone] [place] [address]-19-2025 13:59-0400Systolic blood zdktyvgp983 mm[Hg]Jefferson Anita DO Work Phone: [phone] [place], [place] [address]Vcatqynaot82-68-6898 14:05-0400Body mass index (BMI) [Ratio]53.51 kg/q3CoisrSt. [facility] Psych[facility]07-17-2025 14:05-0400Body weight 128.46 kgSt. [facility] Psychiatric [facility]07-17-2025 14:05-0400Diastolic blood vkefdxuq17 mm[Hg][facility]07-17-2025 14:05-0400Systolic blood kblqroun790 mm[Hg][facility]04-16-2025 10:44-0400Body mass index (BMI) [Ratio] 52.91 kg/u1Shuqw Anita DO Work Phone: [phone] [place], [place] [address]Vrohshotbj59-24-8642 10:44-0400Body tercgn061.01 kgCorey Anita DO Work Phone: [phone] [place] [address]-16-2025 10:44-0400Diastolic blood ojuacdmm76 mm[Hg]Jefferson Anita DO Work Phone: [phone] [place] [address]-16-2025 10:44-0400Systolic blood oikolhqm346 mm[Hg]Jefferson Anita DO Work Phone: [phone] [place], [place] [address]Msljafafux22-26-4940 13:48-0400Body mass index (BMI) [Ratio]52.93 kg/d3Cnwuo Anita DO Work Phone: [phone] [place], [place] [address]Womnkdmzea07-52-5274 13:48-0400Body eliuzk103.06 kgCorey Anita DO Work Phone: [phone] [place], [place] [address]Kpjhtgpxch75-06-0077 13:48-0400Diastolic blood vmjduhet01 mm[Hg]Jefferson Anita DO Work Phone: [phone] [place] [address]-31-2025 13:48-0400Systolic blood uynlmlfl889 mm[Hg]Jefferson Anita DO Work Phone: [phone] [place] [address]-05-2025 10:54-0500Body mass index (BMI) [Ratio]52.93 kg/m2Gia LYNN Work Phone: [phone] [place] [address]-05-2025 10:54-0500Body xcodkx791.06 kgGia LYNN Work Phone: [phone]-[facility] [address]Obmxoyoicv93-79-1820 10:54-0500Diastolic blood ithwowrz70 mm[Hg]iGa LYNN Work Phone: [facility] HospitalKjugrrhpxx42-82-9712 10:54-0500Systolic blood refrhjyj865 mm[Hg]Gia LYNN Work Phone: [facility] HospitalXgpvidgwnd02-63-0882 12:56-0500Body mass index (BMI) [Ratio]53.09 kg/v9Eolxo Anita DO Work Phone: [phone] [place], [place] [address]Mfpgsmigto29-62-3897 12:56-0500Body cwtovj495.46 kgCorey Anita DO Work Phone: [phone]-[facility] HospitalEjelfouoez45-86-7622 12:56-0500Diastolic blood fgypuevz73 mm[Hg]Jefferson Anita DO Work Phone: [phone] [place], [place] [address]Rxrtniaggb89-82-7091 12:56-0500Systolic blood tyxjfsue617 mm[Hg]Jefferson Anita DO Work Phone: [phone] [place], [place] [address]Uxnrbqeizv18-84-5881 08:42-0500Body mass index (BMI) [Ratio]53.55 kg/h4Qbrus Anita DO Work Phone: [phone] [place], [place] [address]Ltgmcgonxa33-50-4346 08:42-0500Body lzxoxr617.55 kgCorey Anita DO Work Phone: [phone]-[facility]red HospitalCjziibfvji76-84-9517 14:06-0500Diastolic blood dqtbydhw96 mm[Hg]Manuel Noel MD Work Phone: [facility]11-19-2024 14:06-0500 Heart rate77 /minManuel Noel MD Work Phone: [facility]11-19-2024 14:06-0500 Respiratory rate18 /minManuel Noel MD Work Phone: [facility]11-19-2024 14:06-0500 SaO2% (BldA) [Mass fraction]98 %Manuel Noel MD Work Phone: [facility]11-19-2024 14:06-0500 Systolic blood mm[Hg]Manuel Noel MD Work Phone: [phone] [place], [place] [address]011-19-2024 12:39-0500 Body qoissr574.94 cmManuel Noel MD Work Phone: [phone]11-19-2024 12:39-0500 Body hlglyp395 kgManuel Noel MD Work Phone: [phone]11-05-2024 09:31-0500 Body .94 cmManuel Noel MD Work Phone: [phone]11-05-2024 09:31-0500 Body mass index (BMI) [Ratio]53.4 kg/m2Manuel Noel MD Work Phone: [phone]11-05-2024 09:31-0500 Body xlvvsy677.16 kgManuel Noel MD Work Phone: [phone]09-28-2022 02:06-0400 Body ijcari314.6992 kgDR DOCTOR CentervilleComment on above: Performed By: #### HIV12 #### [facility] [address] [address] [address] Benoit Diggs Encounters Encounter DateEncounter TypeCare ProviderFacilityStart: 08-31-2025 End: 40-71-4303Hovwmw Epi LYNN Work Phone: [facility] [place] [facility]BGYNStart: 08-31-2025 End: 56-01-5275Qlsypd Epi LYNN Work Phone: [facility] [place] [facility]BGYNStart: 08-31-2025 End: 07-34-1388Evuuya outpatient visit 15 minutesGia LYNN Work Phone: NOPT Emma OBGYNComment on above:Second trimester ([facility]); 23 weeks gestation of ([facility]); Diabetes mellitus screeningStart: 08-31-2025 End: 57-07-6102thcpdngslzCCK RAMLIBANNot AvailableStart: 74-66-7072Zgx-patient / Non-visit([place]) Bello Marks DO-[facility] Work Phone: Start: 08-29-2025 End: 01-08-1526asyfyacgxeOjah E Hay ([facility])-LAB Path Spec Emma HospStart: 08-29-2025 End: 06-31-7272Odxzjzyc ReferredBello Marks ([facility]) DO-[facility] Path [facility] Start: 08-23-2025 End: 96-10-0621zirlucvpteRUYDIJBQKettering Health Hamiltontart: 08-23-2025 End: 23-93-6672Fqbioaifg department patient visitMARHawthorn Children's Psychiatric Hospital HospitalStart: 08-10-2025 End: 61-49-4206epyrzadcysMVAZV FAZIONot AvailableStart: 08-02-2025 End: 73-62-0517Dqumzh flowsheetCorey Anita DO Work Phone: [facility]BGYNStart: 08-02-2025 End: 95-16-7351Kftsyl flowsheetCorey Anita DO Work Phone: [facility] [place] [facility]BGYNStart: 08-02-2025 End: 45-70-2728Mponxmsuv Result EncounterCorey Anita DO Work Phone: NOOF External Department UnsolicitedStart: 08-02-2025 End: 24-07-6426Nfctte outpatient visit 15 minutesCorey Anita DO Work Phone: [facility] Emma OBGYNComment on above:Second trimester ([facility]); 19 weeks gestation of ([facility]); Screening, , for anatomic survey ([facility]); LGSIL of cervix of undetermined significanceStart: 08-02-2025 End: 29-55-1867ykxbmexkosZQTGJ FAZIONot AvailableStart: 07-25-2025 End: 09-84-8657Bmwmzggns Result EncounterAmy Vamsi PA Work Phone: no External Department UnsolicitedStart: 07-25-2025 End: 43-21-2408Sblukfeuy Result EncounterGia LYNN Work Phone: [facility] External Department UnsolicitedStart: 07-05-2025 End: 25-24-1076Lpbrkj flowsheetGia LYNN Work Phone: NO [facility] OBGYNStart: 07-05-2025 End: 41-50-6531Fxhoib flowsheetGia LYNN Work Phone: NO [facility] OBGYNStart: 07-05-2025 End: 36-43-7751Bibhywwe Result EncounterGia LYNN Work Phone: no External Department UnsolicitedStart: 07-05-2025 End: 30-97-1250Jhzzfk outpatient visit 15 minutesAmy Vamsi LYNN Work Phone: NO Emma OBGYNComment on above:15 weeks gestation of ([facility]); Second trimester ([facility]); Exposure to STD; Vaginal discharge; NauseaStart: 07-05-2025 End: 77-10-8905sybbyylizoHYS RAMEYNot AvailableStart: 06-07-2025 End: 95-27-2537Qhhmcv flowsheetCorey Anita DO Work Phone: [facility] [place] [facility]BGYNStart: 06-07-2025 End: 91-72-9781Wyylsg flowsheetCorey Anita DO Work Phone: NO Emma OBGYNStart: 06-07-2025 End: 87-29-9701Dpjbljuxe Result EncounterCorey Anita DO Work Phone: noms External Department UnsolicitedStart: 06-07-2025 End: 00-87-0772Iflwwz outpatient visit 15 minutesCorey Anita DO Work Phone: noms Emma OBGYNComment on above:First trimester ([facility]); 11 weeks gestation of ([facility]); Right ovarian cyst; Nausea; PCOS (polycystic ovarian syndrome)Start: 06-07-2025 End: 73-61-5211sejsapvhciYKRTG FAZIONot AvailableStart: 05-24-2025 End: 71-71-7222Fcftidvzi Result EncounterCorey Anita DO Work Phone: noms External Department UnsolicitedStart: 05-24-2025 End: 74-70-0223Hpqwmsfss Result EncounterCorey Anita DO Work Phone: noms External Department UnsolicitedStart: 05-05-2025 End: 41-59-5079Svidnz outpatient visit 5 minutesFazio Nurse Noms Bcp ObNOMS BCP OBComment on above:GA: 7y6dUglkv: 05-05-2025 End: 56-13-0087wxucxxxtzgQSTCS FAZIONot AvailableStart: 04-14-2025 End: 85-57-6874Pqlealqro department patient visitGrant Hospitaltart: 02-09-2025 End: 62-66-2367Wfliyynem Result EncounterGeneric External Data ProviderNOMS External Department UnsolicitedStart: 02-09-2025 End: 12-69-7285Fufyecmop Result EncounterGeneric External Data ProviderNOMS External Department UnsolicitedStart: 02-02-2025 End: 16-40-9653Lbsagp flowsheetCorey Anita DO Work Phone: [facility] BCP OBStart: 02-02-2025 End: 14-04-4507Ecvshs flowsheetCorey Anita DO Work Phone: [facility] BCP OBStart: 02-02-2025 End: 47-96-2232Jisoma outpatient visit 15 minutesCorey Anita DO Work Phone: [facility] BCP OBComment on above:Encounter to discuss test results; Elevated TSHStart: 02-02-2025 End: 52-54-0387rligekhoufSGGNY FAZIONot AvailableStart: 01-17-2025 End: 79-74-6097Bbkxzja encounter procedureCorey Anita DO Work Phone: noms BCP OBComment on above:LGSIL of cervix of undetermined significanceStart: 01-17-2025 End: 20-68-1748eicozexpnhKtyf Naderer MD Work Phone: [facility] Work Phone: Start: 01-17-2025 End: 60-61-8396Qpdwpxhw Nicola Noel MD Work Phone: [facility]-LAB Path Spec Emma HospStart: 01-12-2025 End: 32-60-3960wibisknatkHHCHE FAZIONot AvailableStart: 01-03-2025 End: 01-09-5691gqcgraepczAiui Naderer MD Work Phone: [facility] Work Phone: Start: 01-03-2025 End: 23-79-5703Tqhgyhey Nicola Noel MD Work Phone: [facility]-LAB Path Spec [place] HospStart: 12-22-2024 End: 75-05-9969Jhqumf flowsheetGia LYNN Work Phone: noms BCP OBStart: 12-22-2024 End: 41-32-6050Gezszx flowsheetGia LYNN Work Phone: NOAE BCP OBStart: 12-22-2024 End: 29-78-1676Rhlsxvxom Result EncounterGeneric External Data ProviderNOMS External Department UnsolicitedStart: 12-22-2024 End: 09-93-8727Qgkqjpq encounter procedureGia LYNN Work Phone: noMS HealthcareStart: 12-22-2024 End: 67-98-4101Fuldspaa preventive med est patient 18-39 yrsGia LYNN Work Phone: noms BCP OBComment on above: control counseling (Primary Dx); Well woman exam with routine gynecological exam; Pelvic pain in femaleStart: 12-22-2024 End: 41-55-5145kjyyuwjeqxRUY RAMEYNot AvailableStart: 12-02-2024 End: 79-40-2843Dncstkh encounter procedureCorey Anita DO Work Phone: noms BCP OBComment on above:Encounter for removal of etonogestrel implantStart: 12-02-2024 End: 85-22-1815vndwhqhgvqTLLWK FAZIONot AvailableStart: 11-30-2024 End: 06-54-1177tchyrtapuyZBICA FAZIONot AvailableStart: 11-11-2024 End: 22-37-3955Yqmxac flowsheetCorey Anita DO Work Phone: noms BCP OBStart: 11-11-2024 End: 58-84-4842Hpitrz flowsheetCorey Anita DO Work Phone: noms BCP OBStart: 11-11-2024 End: 78-11-3526Mlicgrfsw Result EncounterGeneric External Data ProviderNOMS External Department UnsolicitedStart: 11-11-2024 End: 54-15-9870Myyaov outpatient visit 15 minutesCorey Anita DO Work Phone: noms [facility] OBComment on above:Right ovarian cyst; Nausea; PCOS (polycystic ovarian syndrome)Start: 11-11-2024 End: 55-76-1746gzsiuldodbRHRFV FAZIONot AvailableStart: 74-54-9757Msd-patient / Non-visitManuel Noel MD Work Phone: [facility] [facility] Work Phone: Start: 09-07-2024 End: 78-86-8140Byqfcmepb to same day surgery centerManuel Noel MD Work Phone: [facility] Work Phone: Start: 09-07-2024 End: 40-80-6698yucvtwkigdFqde Naderer MD Work Phone: [facility] Work Phone: Start: 08-28-2024 End: 07-14-4683Qdcnpcidz department patient visitMARGinger ZANETroy Calvert HospitalStart: 08-24-2024 End: 76-37-4761Xialute encounter procedureManuel Noel MD Work Phone: [facility] Work Phone: Start: 07-01-2024 End: 28-88-7605Bdhnfnurb Result EncounterGeneric External Data ProviderNOMS External Department UnsolicitedStart: 07-01-2024 End: 82-05-1928Prstnyntj Result EncounterGeneric External Data ProviderNOMS External Department UnsolicitedStart: 66-70-4011Qek-patient / Non-visitManuel Noel MD Work Phone: [facility] Work Phone: Start: 06-03-2024 End: 31-81-0616Uqljutviz Result EncounterManuel Noel MD Work Phone: noms External Department UnsolicitedStart: 06-03-2024 End: 37-34-0331Xwqhjgrli Result EncounterManuel Noel MD Work Phone: noms External Department UnsolicitedStart: 03-02-2024 Patient encounter procedureGeneric ProviderNOMS HealthcareStart: 12-23-2022 Encounter for general adult medical examination without abnormal findingsDR MANUEL Zamora [facility] Campustart: 12-21-2022 End: 61-84-4699wvbsahmuafPM MARC A NADEREacility:K9Mlfmu: 12-21-2022 End: 78-61-1347Zkxsugquj for general adult medical examination without abnormal findingsDR MANUEL MILTONacility:N0Mtdho: 12-01-2022 End: 89-43-2573Rlxbvbdbab and management of inpatientDR MANUEL NOEL Facility:T1Xwukg: 11-29-2022 End: 67-58-6564gitvhfvgfiOY MANUEL MILTONacility:Z1Tqfut: 39-36-5422Puuzprzkea and management of inpatientDR MALIK GABRIEL .Facility:E1Zlhvl: 11-18-2022 End: 73-96-3504aonhxjjkjnWC MANUEL A NADERERFacility:D2Uoebv: 09-22-2022 End: 83-19-4334qrwvtedslnNRGFN PARKERFacility:E4Wqrvj: 09-09-2022 End: 45-46-0805ztkgchpofuQZ MANUEL A NADERERFacility:O0Ftwik: 08-07-2022 End: 14-41-7901fiybojvqbmPC MANUEL A NADERERFacility:I3Opfds: 08-06-2022 End: 28-13-6470bhkodmgaroYK MANUEL A NADERERFacility:M4Xzwwr: 07-25-2022 End: 32-23-7144pgjvteibjaLX JEFFERSON HOWARD .Facility:O5Yqzkb: 07-13-2022 End: 97-82-9587gqgwiqbuhdER BELLO MARKS .Facility:G7Dahlq: 07-11-2022 End: 60-10-4029vfyusnlnuzOO MANUEL A NADERERFacility:N9Xnwyl: 06-06-2022 End: 35-96-2880lljtpzvkwkWB MANUEL A NADERERFacility:P2Nkvcs: 04-16-2022 End: 38-16-8125dvyhpxblmaIZ DOCTOR MISCFacility:H1 Procedures DateProcedureProcedure DetailPerforming ClinicianStart: 40-88-7392Osqdh dip stick/tablet rgnt non-auto w/o micrscpAmy Vamsi LYNN Work Phone: Start: 02-79-8505MBP,APTIMA HPV,AGE GDLNCorey Anita DO Work Phone: Start: 36-53-4789JJF, SERUM, OPEN SPINA BIFIDAAmy Vamsi LYNN Work Phone: Start: 46-82-3043Geule dip stick/tablet rgnt non-auto w/o micrscpAmy Vamsi LYNN Work Phone: Start: 97-93-2702OTBRYGZDF VAGINITIS (HTRX)Gia LYNN Work Phone: Start: 36-41-5957GVM THYROID STIM HORMONECorey Anita DO Work Phone: Start: 87-54-0032IAN TESTCorey Anita DO Work Phone: Start: 05-05-2025 End: 02-75-4869Jxlhz dip stick/tablet rgnt non-auto w/o micrscpCorey Anita DO Work Phone: Start: 42-33-7991ZSA THYROID STIM HORMONECorey Anita DO Work Phone: Start: 28-85-7715Hafwu dip stick/tablet rgnt non-auto w/o micrscpCorey Anita DO Work Phone: Start: 53-62-4377Hfoed cultureMarginger Noel MD Work Phone: Start: 27-33-1332RKL,APTIMA HPV,AGE GDLNAmy Vamsi LYNN Work Phone: Start: 77-00-0799RBI INSERTION/REMOVAL OF CONTRACEPTIVE CAPSULECorey Anita DO Work Phone: Start: 01-60-8077ASG CBC WITH AUTO DIFFCorey Anita DO Work Phone: Start: 89-05-7182VitelfqufzilizbbkwfovtjtlxHkhc Lana MATSON Work Phone: Start: 15-39-9162RQUT TRICHOMONAS/WET PREPGeneric External Data ProviderStart: 36-89-1826QU LUMBAR SPINE 2 OR 3VMarc Lana MATSON Work Phone: Start: 94-58-7046Bcybielzfjw of Nonautologous Red Blood Cells into Peripheral Vein, Percutaneous ApproachDR DOCTOR MISCStart: 50-43-6009Pkkrtnsz of Products of Conception, External ApproachDR DOCTOR MISC Start: 54-65-3857Nsuqsfti of Amniotic Fluid, Therapeutic from Products of Conception, Via Natural or Artificial OpeningDR DOCTOR MISC Plan of Treatment DateCare ActivityDetailAuthorStart: 09-26-2025 End: 68-65-6247Oeaihks encounter plewqhqbk74/08/2025 2:40 PM EST Routine [facility] [address] [place] [place] [address] [address] [place], [id number] Jefferson Howard, DO [address] [place] [address] [place] [address] NOMMaribell [place] OBGYNStart: 08-31-2025 End: 91-77-7529CZN panel - Blood by Automated countCBC Lab Routine Diabetes mellitus screening Expected: 08/31/2025 (Approximate), Expires: 08/31/2026[facility] Work Phone: comment on above:Expected: 08/31/2025 (Approximate), Expires: 08/31/2026Start: 08-31-2025 End: 43-21-5039Jyztbwcuhyg of glucose 1 hour after glucose challenge for glucose tolerance testGlucose tolerance, 1 hour Lab Routine Diabetes mellitus screening Expected: 08/31/2025 (Approximate), Expires: 08/31/2026NOMS HealthcareComment on above:Expected: 08/31/2025 (Approximate), Expires: 08/31/2026Start: 08-31-2025 End: 93-63-6588Qxdrycy encounter ikhsqpmbs06/12/2025 1:40 PM EST Routine NOMMaribell [place] [facility] [address] [place] [address] GIULIA [place], [id number] Jefferson Howard, DO [address] [place] [address] NOMMaribell [place] OBGYNStart: 08-31-2025 End: 06-07-0090Ndxnrqg encounter procedureNOMS Emma OBGYNComment on above: ArrivedStart: 24-71-1967Xymjrqdn identified in Urine by CultureUrine Culture [facility]: 57-49-8885Wamir cultureMercy Hospitaltart: 08-10-2025 End: 59-97-9108Tjwgmvjeklln / ancillary services / 11:00 AM EDT Ancillary Procedure [facility] [address] [place] [place] [address] [place] [id number] NOMS Emma OBGYNStart: 08-02-2025 End: 17-84-8854SF for pregnancyUS OB 14+ weeks anatomy scan Imaging Routine Screening, , for anatomic survey ([facility]) Expected: 08/02/2025, Expires: 11/02/2025[facility] Work Phone: comment on above:Expected: 08/02/2025, Expires: 11/02/2025Start: 08-02-2025 End: 99-52-8673Txrexxh encounter procedureNOMS BCP OBStart: 07-05-2025 End: 72-91-4045Aqmie fetoprotein, maternalAlpha fetoprotein, maternal Lab Routine 15 weeks gestation of ([facility]) Second trimester ([facility]) Expected: 07/05/2025 (Approximate), Expires: 08/04/2025[facility] Comment on above:Expected: 07/05/2025 (Approximate), Expires: 08/04/2025Start: 07-05-2025 End: 86-81-1518Ocufmka encounter procedureNOMS Emma OBGYNComment on above: ArrivedStart: 77-49-0413MUVSV-19 Vaccine ( season)COVID-19 Vaccine ( season)NOMS HealthcareStart: 98-59-5734Aryrpyncq vaccinationNOMS HealthcareStart: 06-07-2025 End: 10-89-4831Owpgirq encounter procedureNOMS BCP OBComment on above:Arrived Start: 05-05-2025 End: 90-84-0957ZUG/RhABO/Rh Lab Routine Missed menses , unspecified gestational age ([facility]) Expected: 05/05/2025 (Approximate), Expires: 05/05/2026NOMS HealthcareComment on above:Expected: 05/05/2025 (Approximate), Expires: 05/05/2026Start: 05-05-2025 End: 71-63-9890Oqhxm type and Indirect antibody screen panel - BloodType and screen Lab Routine Missed menses , unspecified gestational age ([facility]) Expected: 05/05/2025 (Approximate), Expires: 05/05/2026[facility] Work Phone: comment on above:Expected: 05/05/2025 (Approximate), Expires: 05/05/2026Start: 05-05-2025 End: 47-67-4396Loohj of abuse panel - Urine by Screen methodRapid drug screen, urine Lab Routine , unspecified gestational age ([facility]) Encounter for supervision of normal first in first trimester ([facility]) Expected: 05/05/2025 (Approximate), Expires: 05/05/2026NO[facility] HealthcareComment on above: Expected: 05/05/2025 (Approximate), Expires: 05/05/2026Start: 05-05-2025 End: 10-32-3483Zmptrlayvlw [Units/volume] in Serum or PlasmaTSH Lab Routine Thyroid disease Expected: 05/05/2025 (Approximate), Expires: 05/05/2026NO[facility] HealthcareComment on above:Expected: 05/05/2025 (Approximate), Expires: 05/05/2026Start: 02-02-2025 End: 84-74-5347Zjhiowq encounter procedureNOMS [facility] OBComment on above:Arrived Start: 01-17-2025 End: 01-24-6336UnzevulnrkYfrhkshqlp Procedures Routine LGSIL of cervix of undetermined significance Expected: 01/17/2025 (Approximate), Expires: 01/17/2026[facility] Work Phone: comment on above:Expected: 01/17/2025 (Approximate), Expires: 01/17/2026Start: 01-12-2025 End: 12-51-4880Ptkpooclosat / ancillary services /26/2025 1:00 PM EDT Ancillary Procedure [facility] [address] [place] [address] NOMS BCP OBStart: 51-88-7882Fxsyzjkm identified in Urine by CultureUrine [facility] Centertart: 14-43-6605[facility]: 12-22-2024 End: 21-15-7824RW PelvisUS Pelvis w/ TV Imaging Routine Pelvic pain in female Expected: 12/22/2024, Expires: 12/22/2025NOMS HealthcareComment on above: Expected: 12/22/2024, Expires: 12/22/2025Start: 12-22-2024 End: 28-84-5775Kuaqbxx encounter procedureNOMS BCP OBComment on above:Arrived Start: 12-02-2024 End: 89-68-7877Ocqiwph encounter kugybudtn62/13/2025 9:30 AM EST Procedure Visit [facility] OB [address] [place] [address] Jefferson Howard [facility] [address] NOMS BCP OBStart: 11-30-2024 End: 84-02-5177Kgtdlnzzfwtj / ancillary services aprafhjfmd54/11/2025 2:00 PM EST Ancillary Procedure [facility] OB [address] [place] [address] NOMS BCP OBStart: 11-11-2024 End: 07-55-6655QUNQZCDW Lab Routine Right ovarian cyst PCOS (polycystic ovarian syndrome) Expected: 11/11/2024 (Approximate), Expires: 11/11/2025[facility] Comment on above:Expected: 11/11/2024 (Approximate), Expires: 11/11/2025Start: 11-11-2024 End: 69-95-6524SF PelvisUS Pelvis w/ TV Imaging Routine Right ovarian cyst PCOS (polycystic ovarian syndrome) Expected: 11/11/2024, Expires: 11/11/2025NOMS HealthcareComment on above:Expected: 11/11/2024, Expires: 11/11/2025Start: 11-11-2024 End: 52-09-3912Brxloke encounter jgfaffipz97/23/2025 8:40 AM EST Office Visit [facility] OB [address] [place] [address] Jefferson Howard DO [address] [place] [address] [facility] OBComment on above:ArrivedStart: 53-65-7780PebatiwlcMercy Hospitaltart: 65-04-7929Vtvqbzuxo vaccinationInfluenza Vaccine (#1)NOMS HealthcareStart: 74-93-9273Pqnswbdzk B Vaccines (1 of 3 - 19+ 3-dose series)Hepatitis B Vaccines (1 of 3 - 19+ 3-dose series)NOMS HealthcareStart: 74-03-0200Fygsiufmnetw Vaccine: Pediatrics (0 to 5 Years) and At-Risk Patients (6 to 64 Years) (1 of 2 - PCV)Pneumococcal Vaccine: Pediatrics (0 to 5 Years) and At-Risk Patients (6 to 64 Years) (1 of 2 - PCV) NOMS HealthcareStart: 83-57-1450LBR Vaccines (1 - 3-dose series)HPV Vaccines (1 - 3-dose series)NOMS HealthcareStart: 70-65-8942Oyryplu of varicella vaccination Varicella Vaccines (1 of 2 - 13+ 2-dose series)NOMS HealthcareStart: 2007 DTaP/Tdap/Td Vaccines (1 - Tdap)DTaP/Tdap/Td Vaccines (1 - Tdap)[facility] Start: 06-94-7348AYY Vaccines (1 of 1 - Standard series)MMR Vaccines (1 of 1 - Standard series)NOM HealthcareBacteria identified in Urine by CultureUrine culture Microbiology Routine Missed menses Ordered: 05/05/2025[facility] Healthcare Comment on above:Ordered: 05/05/2025BC W Auto Differential panel - BloodCBC and differential Lab Routine Right ovarian cyst PCOS (polycystic ovarian syndrome) Ordered: 11/11/2024[facility] HealthcareComment on above:Ordered: 11/11/2024BC W Auto Differential panel - BloodCBC and differential Lab Routine Missed menses , unspecified gestational age ([facility]) Ordered: 05/05/2025[facility] HealthcareComment on above:Ordered: 05/05/2025HLAMYDIA TRACHOMATIS (GENITO/STI) CHLAMYDIA TRACHOMATIS (GENITO/STI) Lab Routine Exposure to STD Ordered: 07/05/2025[facility] HealthcareComment on above:Ordered: 07/05/2025ytology Cervical or vaginal smear or scraping studyPap Smear Pathology and Cytology Routine Well woman exam with routine gynecological exam Ordered: 12/22/2024[facility] Healthcare Work Phone: comment on above:Ordered: 12/22/2024ytology Cervical or vaginal smear or scraping studyPap Smear Pathology and Cytology Routine LGSIL of cervix of undetermined significance Ordered: 08/02/2025[facility] Healthcare Comment on above:Ordered: 08/02/20257817SCJK-sazazrkDRFE-buetjva Lab Routine Right ovarian cyst PCOS (polycystic [...] menses , unspecified gestational age ([facility]) Ordered: 05/05/2025[facility] HealthcareComment on above:Ordered: 05/05/2025Hepatitis B virus surface Ag [Presence] in Serum or Plasma by ImmunoassayHepatitis B surface antigen Lab Routine Missed menses , unspecified gestational age ([facility]) Ordered: 05/05/2025[facility] HealthcareComment on above:Ordered: 05/05/2025Hepatitis C virus Ab [Presence] in Serum or Plasma by Immunoassay Hepatitis C antibody Lab Routine Missed menses , unspecified gestational age ([facility]) Ordered: 05/05/2025[facility] HealthcareComment on above: Ordered: 05/05/2025HIV-1/HIV-2 antigen/antibody combination immunoassayHIV-1 and HIV-2 antibodies Lab Routine Missed menses , unspecified gestational age ([facility]) Ordered: 05/05/2025[facility] [...] on above: Ordered: 07/05/2025Patient EducationEsophagitis Know your [facility] Work Phone: ProlactinProlactin Lab Routine Right ovarian cyst PCOS (polycystic ovarian syndrome) Ordered: 11/11/2024[facility] HealthcareComment on above:Ordered: 11/11/2024Reagin Ab [Presence] in Serum by RPRRPR Lab Routine Missed menses , unspecified gestational age ([facility]) Ordered: 05/05/2025[facility] HealthcareComment on above:Ordered: 05/05/2025Removal non- biodegradable drug delivery implantRemove drug implant device Procedures Routine Encounter for removal of etonogestrel implant Ordered: 12/02/2024[facility] Healthcare Work Phone: comment on above:Ordered: 12/02/2024Rubella antibody, IgGRubella antibody, IgG Lab Routine Missed menses , unspecified gestational age ([facility]) Ordered: 05/05/2025[facility] HealthcareComment on above: Ordered: 05/05/2025SURESWAB(R) ADVANCED VAGINITIS PLUS, TMASURESWAB(R) ADVANCED VAGINITIS PLUS, TMA Pathology and Cytology Routine Vaginal discharge Ordered: 0 07/05/2025[facility] Healthcare Work Phone: comment on above:Ordered: 07/05/2025Thyrotropin [Units/volume] in Serum or PlasmaTSH Lab Routine Right ovarian cyst PCOS (polycystic ovarian syndrome) Ordered: 11/11/2024[facility] HealthcareComment on above:Ordered: 11/11/2024Thyrotropin [Units/volume] in Serum or PlasmaTSH Lab Routine Elevated TSH Ordered: 02/02/2025[facility] Healthcare Work Phone: Comment on above:Ordered: 02/02/2025Thyroxine (T4) free [Mass/volume] in Serum or PlasmaT4, free Lab Routine Right ovarian cyst PCOS (polycystic ovarian syndrome) Ordered: 11/11/2024[facility] HealthcareComment on above:Ordered: 11/11/2024Thyroxine (T4) free [Mass/volume] in Serum or PlasmaT4, free Lab Routine Elevated TSH Ordered: 02/02/2025[facility] HealthcareComment on above:Ordered: 02/02/2025 Payers DatePayer CategoryPayerPoly ID2021Medicaid [id number] 2021Medicaid (Managed Care) [id number] 2.16.840.1.898453.3.57[id number] 2.16.840.1.616430.3.57[id number] 2.16.840.1.962136.3.57[id number] 2.16.840.1.656613.3.57[id number] 2.16.840.1.069642.3.57[id number] 2.16.840.1.801399.3.57[id number] 2.16.840.1.835694.3.57[id number] 2.16840.1.541929.3.579.[id number] 2.16840.1.026982.3.57[id number] 2.16840.1.213982.3.579.2.94543-65-7069Dbylhbo6461580 2.840.1.018759.3.579.2.68540-34-2949Pxixemu6399565 2.840.1.258132.3.579.2.92979-82-7792Kflorfu6889807 2.840.1.023297.3.579.2.82078-79-4174Amdvkvl0995971 2.840.1.002876.3.57[id number] 2.840.1.367846.3.57[id number] 2.840.1.889874.3.57[id number] 2.840.1.249437.3.579.2.483283-48-1333Mgslwhf78202616 2.840.1.043168.3.579.2.[id number] 2.840.1.229605.3.579.2.276244-67-0391Cqiszhz80323739 2.840.1.787707.3.579.2.126402-05-4071Jskphko37758438 2.840.1.807983.3.579.2.782300-76-0375Idbhsjg71283801 2.840.1.884076.3.579.2.703295-21-6000Axssfrz11077961 2.0.1.508332.3.579.2.575625-49-3274Uondety05061910 2.840.1.278339.3.579.2.624260-08-2454Uvrjgxz78943262 2.0.1.970460.3.579.2.103255-70-2702Efdijdt3934154 2..1.048028.3.579.2.517562-46-3955Vkikfem4360363 2..1.119060.3.579.2.460234-25-0850Yqrknzp0836608 2..1.111468.3.579.2.468771-28-8981Rjskjfw3878740 2..1.462810.3.579.2.681586-15-0920Sclqjdj6347554 2..1.899082.3.579.2.188957-73-6481Wsbsoek4935344 2..1.178231.3.579.2.073485-49-4292Zqwksys3644149 2..1.215175.3.579.2.359376-37-2384Hduy-vsu98-71-6572Bulrhng562499107791 Rqqnumz4499631 2..1.640529.3.579.2.951Nbhryhf35559453 2.0.1.701583.3.579.2.871Jdeloet22368906 2.840.1.483300.3.579.2.531 Bfaptee00198549 2.840.1.911577.3.579.2.582Yvujthp42448222 2.840.1.061191.3.579.2.531 Social History DateTypeDetailFacilityStart: 03-02-2024 End: 04-16-6699Svlmkmm smoking status NHISNever smoked tobacco (finding) [facility]: 58-39-3301WpiJelbqzr sex unknown (finding)[facility]: 11-44-9484Srj Assigned At FemaleFirUniversity Hospitals TriPoint Medical Centertart: 97-00-0011Nnnyizu use and exposure Smokeless tobacco non-userNOMS HealthcareStart: 03-02-2024 End: 52-62-6064Tvwxiia of Social functionNOGA HealthcareStart: 03-02-2024 End: 95-68-7824Ftykyj connection and isolation panelNOGA HealthcareStart: 37-30-0936Bjvvlr Member of Clubs or OrganizationsNot on fileNOGA HealthcareHow often to you have a drink containing alcohol?2-4 times a monthNOGA HealthcareHow many standard drinks containing alcohol do you have on a typical day?1 or 2NOMS HealthcareHow often do you have 6 or more drinks on 1 occasion?NeverNOMS HealthcareIn the past 12 months, was there a time when you were not able to pay the mortgage or rent on time?NoNOMS HealthcareStart: 20-15-2505Tna assigned at birthNot on fileS[facility] HealthcareStart: 01-04-2025 End: 22-23-3064BwyGrlarw (finding)[facility]: 07-07-3742MfyhccrwnFDDP Healthcare Medical Equipment Procedure CodeEquipment CodeEquipment Original TextEquipment IdentifierDatesERCP (endoscopic retrograde cholangiopancreatography)STENT PANCREATIC ZIMMON 4FRFDA Start: 16-12-6607MMXD (endoscopic retrograde cholangiopancreatography)STENT PANCREATIC ZIMMON 4FRFDAStart: 95-30-3762TLMU (endoscopic retrograde cholangiopancreatography)STENT PANCREATIC ZIMMON 4FRFDAStart: 80-57-3845RINQ (endoscopic retrograde cholangiopancreatography)STENT PANCREATIC ZIMMON 4FRFDA Start: 11-20-2017 Goals DatePatient GoalDesired Activity/State Clinical Notes 08-24-2024 to 08-31-2025 Note Date & YubqTthhNyaqujdm48-45-0698 History of Present illness Narrative* ELAH Curran - 08/31/2025 11:20 AM EST Reason [...] esophagitis 03/02/2024 Mild intermittent asthma without complication ([facility]) 03/02/2024 Allergic rhinitis due to pollen 03/02/2024 Morbid obesity due to excess calories ([facility]) 03/02/2024 Annual physical exam 03/02/2024 Amenorrhea [...] was 03/08/2025. Assessment/Plan ICD-10-CM 1. Second trimester ([facility]) Z34.92 POCT urinalysis dipstick manually resulted 2. 23 weeks gestation of ([facility]) Z3A.23 3. Diabetes mellitus screening Z13.1 CBC Glucose tolerance, 1 hour CBC Glucose tolerance, 1 hour Assessment/Plan Return OB: Patient presents today for a routine obstetrics appointment. Patient is currently 23w2d . Patient states she is doing well but has complaints of being tired due to current . Pt was seen at [facility] on 08/29/2025 due to having painful abdominal pain and not feeling baby moving. [facility] evaluated the patient and [...] a h-hr glucose order to schedule at [facility] and pt is advised not to eat or drink anything after midnight. PVU. We will increase keflex to tid for 7 days and pyridium. Patient will also be referred to [facility] for another anatomy scan due to body habitus per reading of recent scan Orders Placed This Encounter Procedures CBC Glucose tolerance, 1 hour POCT urinalysis dipstick manually resulted Follow Up: Patient is to return to office in 3 week for routine OB appointment. Documented by Janneth Paul MA on behalf of: LEAH Curran documented in this encounterKindred HospitalZjvqhzlami46-00-2490 History of Present illness Narrative* Shelleyjoel Dang, [...] esophagitis 03/02/2024 Mild intermittent asthma without complication ([facility]) 03/02/2024 Allergic rhinitis due to pollen [...] nursing note reviewed. Exam conducted with a agricultural equipment test engineer present. Vitals: Estimated body mass index is 53.12 kg/m as calculated from the following: Height as of 06/01/24: 5' 1 . Weight as of this encounter: 281 lb 1.9 oz. BP: 102/62 Patient's last menstrual period was 03/08/2025. ASSESSMENT & PLAN ICD-10-CM 1. Second trimester ([facility]) Z34.92 2. 19 weeks gestation of ([facility]) Z3A.19 CANCELED: POCT urinalysis dipstick manually resulted 3. Screening, , for anatomic survey ([facility]) Z36.89 OB 14+ weeks anatomy scan [...] Procedure Laterality Date GALLBLADDER documented in this encounterKindred HospitalQgpfdmwpzq06-41-4262 History of Present illness Narrative* LEAH Curran [...] esophagitis 03/02/2024 Mild intermittent asthma without complication ([facility]) 03/02/2024 Allergic rhinitis due to pollen [...] nursing note reviewed. Exam conducted with a agricultural equipment test engineer present. Vitals: Estimated body mass index is 54 kg/m as calculated from the following: Height as of 06/01/24: 5' 1 . Weight as of this encounter: 285 lb 12.8 oz. BP: 120/80 Patient's last menstrual period was 03/08/2025. ASSESSMENT & PLAN ICD-10-CM 1. 15 weeks gestation of ([facility]) Z3A.15 POCT urinalysis dipstick manually resulted Alpha fetoprotein, maternal Alpha fetoprotein, maternal 2. Second trimester ([facility]) Z34.92 POCT urinalysis dipstick manually resulted [...] behalf of: LEAH Curran documented in this encounterKindred [id number] History of Present illness Narrative* Shelley Dang [...] 03/02/2024 Morbid obesity due to excess calories ([facility]) 03/02/2024 Annual physical exam 03/02/2024 Amenorrhea [...] nursing note reviewed. Exam conducted with a agricultural equipment test engineer present. Vitals: Estimated body mass index is 53.17 kg/m as calculated from the following: Height as of 06/01/24: 5' 1 . Weight as of this encounter: 281 lb 6.4 oz. BP: 108/68 Patient's last menstrual period was 03/08/2025. ASSESSMENT & PLAN ICD-10-CM 1. First trimester ([facility]) Z34.91 2. 11 weeks gestation of [facility] [facility] Z3A.11 3. Right ovarian cyst N83.201 [...] or undercooked meat, [facility]. Patient has been consulted regarding any further do's and don'ts of . Patient voiced understanding and all questions and concerns wereanswered. No orders of the defined types were placed in this encounter. Follow Up: Patient is to return in 4 weeks for routine OB appointment. Documented by Shelley Dang LPN on behalf of: Jefferson Howard DO documented in this encounterKindred [id number] History of Present illness Narrative* Gayatri Correa [...] esophagitis 03/02/2024 Mild intermittent asthma without complication ([facility]) 03/02/2024 Allergic rhinitis due to pollen 03/02/2024 Morbid obesity due to excess calories ([facility]) 03/02/2024 Annual physical exam 03/02/2024 Amenorrhea [...] dipstick manually resulted , unspecified gestational age ([facility]) - Type and screen; Future - ABO/Rh; Future - CBC and differential - Hemoglobin A1c - RPR - Rubella antibody, IgG - Hepatitis B surface antigen - Hepatitis C antibody - HIV-1 and HIV-2 antibodies - Rapid drug screen, urine; Future Encounter for supervision of normal first in first trimester ([facility]) - Rapid drug screen, urine; Future [...] or undercooked meat, and [facility]. Patient has also been advised to not change litter boxes and eat 6 small meals a day. Patient has been consulted regarding the do's and don'ts ofpregnancy. Patient was given labs and all questions and concerns were answered. [place] and Thyroid given to patient to have [...] by: Gayatri Correa LPN documented in this encounterKindred [id number] History of Present illness Narrative* Shelley Dang [...] depressive disorder, recurrent episode, mild (HCC) ([facility]) 03/02/2024 Gastroesophageal reflux disease without esophagitis 03/02/2024 Mild intermittent asthma without complication ([facility]) 03/02/2024 Allergic rhinitis due to pollen 03/02/2024 Morbid obesity due to excess calories ([facility]) 03/02/2024 Annual physical exam 03/02/2024 Amenorrhea [...] nursing note reviewed. Exam conducted with a agricultural equipment test engineer present. Vitals: Estimated body mass index is [...] by Shelley Dang LPN on behalf of: eJfferson Howard DO documented in this encounterKindred [id number] History of Present illness Narrative* Jefferson Howard [...] nursing note reviewed. Exam conducted with a agricultural equipment test engineer present. Vitals: Estimated body mass index is [...] of: Jefferson Howard DO documented in this encounterKindred [id number] History of Present illness Narrative* LEAH Curran - 12/22/2024 11:00 AM EST Reason for Appointment: Patient ID: Jes Romero is a 24 y.o. female who presents for [facility] Patient presents today for Annual [...] depressive disorder, recurrent episode, mild (HCC) ([facility]) 03/02/2024 Gastroesophageal reflux disease without esophagitis 03/02/2024 Mild intermittent asthma without complication ([facility]) 03/02/2024 Allergic rhinitis due to pollen 03/02/2024 Morbid obesity due to excess calories ([facility]) 03/02/2024 Annual physical exam 03/02/2024 Amenorrhea [...] nursing note reviewed. Exam conducted with a agricultural equipment test engineer present. Vitals: Estimated body mass index is [...] behalf of: LEAH Curran documented in this encounterKindred [id number] History of Present illness Narrative* Pilar Collins, [...] nursing note reviewed. Exam conducted with a agricultural equipment test engineer present. Vitals: Estimated body mass index is [...] of: Jefferson Howard DO documented in this encounterKindred [id number] History of Present illness Narrative* Pilar Collins [...] Noted Major depressive disorder, recurrent episode, mild ([facility]) ([facility] 03/02/2024 Gastroesophageal reflux disease without esophagitis 03/02/2024 Mild intermittent asthma without complication ([facility]) 03/02/2024 Allergic rhinitis due to pollen 03/02/2024 Morbid obesity due to excess calories ([facility]) 03/02/2024 Annual physical exam 03/02/2024 Amenorrhea [...] nursing note reviewed. Exam conducted with a agricultural equipment test engineer present. Vitals: Estimated body mass index is [...] of: Jefferson Howard DO documented in this encounterKindred [id number] [place] [address] EGD Procedure Note Signed Patient: Jes Romero MR#: [id number] : 2000 Acct:[id number] Age/Sex: 23 / F Adm Date: 4 Loc: Room: Type: [facility] Attending Dr: Mir Silva MD Copies [...] ovary. She has not followed up with [facility]. On omeprazole 20 mg daily. Pre-operative [...] she needs to continue to follow-up with [facility] [facility] as it is unlikely related to GI etiology. -Resume normal diet -Follow up in the office 6 to 8 weeks with GI [facility] -Follow up with PCP Following a period of recovery, patient was seen and given full explanation of the procedure. Patient tolerated the procedure well and will be discharged in satisfactory, stable condition. Mir Silva MD Documented By: Mir Silva MD 09/07/24 1325 Signed By: 09/07/24 1333 [facility]11-05-2024 Evaluation note* Diagnosis Onset Date Resolution Status Admit Date Dyspepsia acuteNovember 2023 9:29amNauseaacuteNovember 2023 9:29amChronic GERD chronicNovember 2023 9:29amConstipationchronicNov2023 9:29am [facility] Work Phone: Evaluation note* Diagnosis [...] [facility] HealthcareEvaluation noteNo assessment information availableLakehealth Tripoint Medical Center Work Phone: Evaluation note* Diagnosis [...] [place]) Missed menses , unspecified gestational age ([facility]) Encounter for supervision of normal first in first trimester ([facility]) Right ovarian cyst Other and unspecified [...] ([facility]) First trimester ([facility]) state, incidental 11 weeks gestation of ([facility]) Right ovarian cyst Other and unspecified ovarian cyst Nausea Nausea alone PCOS (polycystic ovarian syndrome) Polycystic ovaries documented in this encounter [facility] HealthcareEvaluation note* Diagnosis Gastroesophageal reflux disease [...] [facility] [place] 15 weeks gestation of ([facility]) Second trimester ([facility]) state, incidental Exposure to STD Vaginal [...] ([facility]) Second trimester ([facility]) state, incidental 19 weeks gestation of ([facility]) Screening, , for anatomic survey ([facility]) Encounter for anatomic survey LGSIL of [...] ([facility]) Second trimester ([facility]) state, incidental 23 weeks gestation of ([facility]) Diabetes mellitus screening Screening for diabetes mellitus documented in this encounter [facility] HealthcareReason for referral (narrative)No reason for referral information availableMiddletown Hospital [facility]tr Work Phone: Summary Purpose Family [...] section and content) DATE CREATED AUTHOR 12/24/2022 [facility] DATE CREATED AUTHOR AUTHOR'S ORGANIZ ATION 08/25/2025 [facility] DATE CREATED AUTHOR AUTHOR'S ORGANIZ ATION 08/31/2025 [facility] DATE CREATED AUTHOR AUTHOR'S ORGANIZ ATION 09/01/2025 [facility] EPIC Care Teams (unrecognized [...] Manuel Noel MD [address] [place] [address] [facility] - [facility]/02/24Team MemberRelationshipSpecialtyStart DateEnd Date Manuel Noel MD [address] [place] [address] PCP - [facility]03/02/24 Maneul Noel MD [address] [place] [address] [facility]07/20/24Team MemberRelationshipSpecialtyStart DateEnd Date Manuel Noel MD [address] [place] [address] [facility]03/02/24 Manuel Noel MD [address] [place] [address] [facility]07/20/24Team MemberRelationshipSpecialtyStart DateEnd Date Manuel Noel MD [address] [place] [address] [facility]03/02/24 Manuel Noel MD [address] [place] [address] [facility]07/20/24Team MemberRelationshipSpecialtyStart DateEnd Date Manuel Noel MD [address] [place] [address] [facility]03/02/24 Manuel Noel MD [address] [place] [address] [facility]07/20/24Team MemberRelationshipSpecialtyStart DateEnd Date Manuel Noel MD [address] [place] [address] PCP - [facility]03/02/24 Maneul Noel MD [address] [place] [address] [facility]07/20/24Team MemberRelationshipSpecialtyStart DateEnd Date Manuel Noel MD [address] [place] [address] [facility]03/02/24 Manuel Noel MD [address] [place] [address] [facility]07/20/24Team MemberRelationshipSpecialtyStart DateEnd Date Manuel Noel MD [address] [place] [address] [facility] - [facility]03/02/24 Manuel Noel MD [address] [place] [address] [facility]07/20/24Team MemberRelationshipSpecialtyStart DateEnd Date Manuel Noel MD [address] [place] [address] [facility] - [facility]03/02/24 Manuel Noel MD [address] [place] [address] [facility]07/20/24 Team Status: Inactive Member Role Status Dates Jefferson Howard DO Attending Provider Active Start : January 17, 2025 End: January 17, 2025Team MemberRelationshipSpecialtyStart DateEnd Date Manuel Noel MD [address] [place] [address] [facility]03/02/24 Manuel Noel MD [address] [place] [address] [facility]07/20/24Team MemberRelationshipSpecialtyStart DateEnd Date Manuel Noel MD [facility]03/02/24 Manuel Noel MD [address] [place] [address] [facility]07/20/24Team MemberRelationshipSpecialtyStart DateEnd Date Manuel Noel MD [facility]03/02/24 Manuel Noel MD [address] [place] [address] [facility]07/20/24Team MemberRelationshipSpecialtyStart DateEnd Date Manuel Noel MD [facility]03/02/24 Manuel Noel MD [address] [place] [address] [facility]07/20/24Team MemberRelationshipSpecialtyStart DateEnd Date Manuel Noel MD [facility]03/02/24 Manuel Noel MD [address] [place] [address] [facility]07/20/24Team MemberRelationshipSpecialtyStart DateEnd Date Manuel Noel MD [facility]03/02/24 Manuel Noel MD [address] [place] [address] [facility]07/20/24 Team Status: Inactive Member Role/Relationship Status Dates Bello Marks ([facility]) , Attending Provider Active Start: August 29, 2025 End: August 29, 2025 Team Status: Active Member Role/Relationship Status Dates Bello Marks DO Attending Provider Active Start: August 29, 2025 Team MemberRelationshipSpecialtyStart DateEnd Date Manuel Noel MD [facility]03/02/24 Manuel Noel MD [address] [place] [address] [facility] - [facility]07/20/24 Reason for Visit (unrecogniz ed section [...] BE BASED ON THE PRIMARY CLINICAL RECORDS. [employer] provides no warranty or guarantee of the accuracy or completeness of information in this document.
[2025-10-17 09:55] VITALS: BP 138/75; PULSE 90; TEMP 36.6
[2025-10-17 11:55] LABS: Glucose Urine UA NEGATIVE (NEGATIVE)
[2025-10-17 12:06] LABS: Cast Seen? NONE SEEN #/LPF (NONE SEEN); Crystals Seen? None Seen #/HPF (None Seen); Urine Culture Indicated NO
[2025-10-17] MEDS: 0.9 % SODIUM CHLORIDE 1,000 ML 1000 ML IV (13:57)
[2025-10-17] MEDS: 0.9 % SODIUM CHLORIDE 1,000 ML 500 ML IV (15:06)
[2025-10-17 18:48] VITALS: BP 128/74; PULSE 92; TEMP 36.7
--- NOTE | 2025-10-21 15:22 | CM.NOTE ---
CM faxed positive urine culture results to Dr. Schwartz.
== END 2025-10-17 18:00 | disposition home or self-care (01) ==
LOC: FBCO 09:32 → FBC 09:34
PROVIDERS: PCP Family Medicine; Visit Provider Obstetrics & Gynecology
DX: O26.893 Other specified pregnancy related conditions, third trimester (principal); Z3A.30 30 weeks gestation of pregnancy
CPT/HCPCS: 59025; 81001; 84112; 87086